=== PATIENT | female | born 1965 | race Caucasian/White ===

== ENCOUNTER → 2020-01-31 10:39 | Outpatient (CLI) | payer OTHER, SELFPAY ==
[2020-01-31 12:40] LABS: Erythrocyte Sedimentation Rate 44 mm/hr (0-30)
[2020-01-31 12:46] LABS: Hematocrit 37.7 % (37-47); Hemoglobin 11.8 g/dL (12.0-15.0); Mean Corp Hgb Conc 31.3 g/dL (32-36); Mean Corpuscular Hgb 29.9 pg (27.0-32.0); Mean Corpuscular Volume 95.7 fL (81-99); Mean Platelet Vol. 11.5 fl (6.2-12.0); POSITIVE COUNT YES; Platelet Count 96 K/mm3 (150-450); RBC Distribution Width CV 14.9 % (11.6-14.6); RBC Distribution Width SD 51.8 fl (35.1-43.9); Red Blood Count 3.94 M/mm3 (4.2-5.4); White Blood Count 3.7 K/mm3 (4.4-11.0)
[2020-01-31 13:09] LABS: ALB/GLOB Ratio 0.8 RATIO (0.9-2.4); AST(SGOT) 44 U/L (15-37); Alanine Aminotransfer ALT/SGPT 33 U/L (13-56); Albumin, Serum 3.5 g/dL (3.2-5.0); Alkaline Phosphatase 93 U/L (45-117); Anion Gap 4 (5-15); BUN 16 mg/dL (7-18); BUN/Creat Ratio 15.7 RATIO (10-20); CRP < 2.90 mg/L (0.0-3.0); Calcium,Total 9.2 mg/dL (8.5-10.1); Chloride 103 mmol/L (98-107); Creatinine, Serum 1.02 mg/dL (0.55-1.02); EST Glomerular Filtration Rate 60 mL/min (>60); Est Glom Filt Rate - Afr Amer 73 mL/min (>60); Globulin 4.4 g/dL (2.2-4.2); Glucose 225 mg/dL (74-106); Potassium 4.2 mmol/L (3.5-5.1); Protein, Total 7.9 g/dL (6.4-8.2); Sodium Level 136 mmol/L (136-145)
[2020-01-31 13:14] LABS: Scan Indicated on CBC? Y/N YES- FLAGS NOTED
== END ==
LOC: MTLAB 10:48
PROVIDERS: PCP Family Medicine; Referring Provider Internal Medicine Gastroenterology; Visit Provider Internal Medicine Gastroenterology
DX: K51.90 Ulcerative colitis, unspecified, without complications (principal)
CPT/HCPCS: 36415; 80053; 85027; 85652; 86140

== ENCOUNTER → 2020-07-01 13:33 | Outpatient (CLI) | payer MEDICAID, SELFPAY ==
[2020-07-01 13:56] LABS: Absolute Neutrophil Count 3.3 X10^3/uL (2.0-7.7); Basophil# 0.02 X10^3/uL; Basophil% 0.4 % (0-1); Eosinophil# 0.14 X10^3/uL; Eosinophils% 2.5 % (0-5); Hematocrit 36.6 % (37-47); Hemoglobin 12.4 g/dL (12.0-15.0); Lymphocyte % 28.9 % (19-41); Mean Corp Hgb Conc 33.9 g/dL (32-36); Mean Corpuscular Hgb 31.2 pg (27.0-32.0); Mean Corpuscular Volume 92.2 fL (81-99); Mean Platelet Vol. 11.4 fl (6.2-12.0); Monocyte# 0.46 X10^3/uL; Monocyte% 8.3 % (0-10); NRBC Flagged by Analyzer 0 % (0-5); Neutrophil # 3.28 X10^3/uL (2.7-7.7); Neutrophil % 59.2 % (47-70); POSITIVE COUNT YES; Platelet Count 94 K/mm3 (150-450); RBC Distribution Width CV 15.6 % (11.6-14.6); RBC Distribution Width SD 51.3 fl (35.1-43.9); Red Blood Count 3.97 M/mm3 (4.2-5.4); White Blood Count 5.5 K/mm3 (4.4-11.0)
== END ==
PROVIDERS: PCP Family Medicine
DX: D69.6 Thrombocytopenia, unspecified (principal)
CPT/HCPCS: 36415; 85025

== ENCOUNTER → 2020-08-27 13:32 | Outpatient (CLI) | payer OTHER, SELFPAY ==
[2020-08-06 11:28] VITALS: BMI 55.9
[2020-08-27 14:32] LABS: Erythrocyte Sedimentation Rate 23 mm/hr (0-30)
[2020-08-27 14:53] LABS: BNP,B-Type NATRIURETIC PEPTIDE 48.4 pg/mL (0-100)
[2020-08-27 14:58] LABS: CRP 7.14 mg/L (0.0-3.0); Rheumatoid Factor < 10.0 IU/mL (<15)
[2020-08-29 01:10] LABS: Rapid Plasmin Reagin (RPR) NONREACTIVE (NONREACTIVE)
[2020-08-30 10:52] LABS: ANTINUCLEAR ANTIBODIES DIRECT Negative (Negative)
== END ==
PROVIDERS: PCP Family Medicine; Referring Provider Registered Nurse; Visit Provider Registered Nurse
DX: M25.473 Effusion, unspecified ankle (principal)
CPT/HCPCS: 36415; 83880; 85652; 86038; 86140; 86431; 86592

== ENCOUNTER → 2021-02-07 07:26 | Outpatient (CLI) | payer OTHER, SELFPAY ==
[2021-01-27 14:17] VITALS: BMI 51.4
--- NOTE | 2021-02-07 07:36 | BI_ITS ---
MAMMOGRAPHY - BILATERAL SCREENING 3-D TOMOSYNTHESIS REASON FOR EXAM: Female, 55 years old. Routine screening PERTINENT HISTORY: No significant family history. TECHNIQUE: 2-D mammograms and 3-D Tomosynthesis of the breast (s) were performed. CAD was performed. COMPARISON: 02/07/2020 FINDINGS: The breast composition is almost entirely fat. Scattered benign calcifications are seen. No dense spiculated masses or suspicious microcalcifications are identified. No architectural distortion is identified. There is no skin thickening or retraction. There has been no significant change since the prior study. BI/SCRN MAMM (CAD)W/JOVANNY BILAT IMPRESSION: No mammographic signs of malignancy. Routine yearly mammograms recommended. ASSESSMENT CATEGORY: BIRADS Category 1: Negative. A letter regarding these results will be sent to the patient by the facility within 30 days. FOLLOW UP RECOMMENDATION: Yearly follow up mammogram recommended. (A) Approximately 10% of breast cancers are not detected by mammography. A normal mammogram should not delay biopsy of a clinically suspicious abnormality. Electronically Signed: Min Renner MD at 8:59 EDT , Service support ,
== END ==
PROVIDERS: PCP Family Medicine; Referring Provider Internal Medicine Hematology & Oncology; Visit Provider Internal Medicine Hematology & Oncology
DX: Z12.31 Encounter for screening mammogram for malignant neoplasm of breast (principal)
CPT/HCPCS: 77063; 77067

== ENCOUNTER → 2021-02-25 14:03 | Outpatient (CLI) | payer OTHER, SELFPAY ==
[2021-02-08 10:08] VITALS: BMI 49.0
--- NOTE | 2021-02-25 14:04 | CT_ITS ---
STUDY: LOW DOSE CT LUNG CANCER SCREENING REASON FOR EXAM: Female, 55 years old. Lung cancer screening -- 50 pack yr history; former smoker; asymptomatic RADIATION DOSAGE (If Supplied By Facility): CTDIvol = ( 4.02 ) mGy, DLP = ( 132.90 ) mGycm TECHNIQUE: No contrast was administered. Low dose technique was utilized (average mAS-38 and kVp 120). 1.25 mm axial source images with a slice interval of 1.25-mm were reconstructed in lung windows. 2.5 mm axial source images with a slice interval of 2.5-mm were reconstructed in lung windows. 5.0 mm axial source images with a slice interval of 5.0-mm were reconstructed in soft tissue windows. Nodule measured using lung windows on PACS and/or independent workstation with automated measurement of minimum and maximum diameter. Nodule measurement reported as average diameter rounded to the nearest whole number. Growth is defined as an increase ins size of greater than 1.5 mm. COMPARISON: None. NODULES: No suspicious nodules are seen. Emphysema: Mild degree of emphysematous changes. Focal irregular scarring and mild bronchiectasis along the posterior medial aspect of the left lower lobe. Mild increased markings in the right middle lobe and lingular segment of the left upper lobe. Endobronchial lesion: None Aorta: Unremarkable Coronary arteries: Coronary artery calcification. Mediastinal nodes: Small mediastinal lymph nodes. Other chest and abdominal findings: CT/Low Dose CT Lung Screening IMPRESSION: Lung-RADS category 2 - Continue annual screening with LDCT in 12 months. IMPORTANT NOTES FOR USE: ACR Lung-RADS Version 1.1 Assessment Categories Release Date: 2018 Category: Coded 0-4 bases on nodule(s) with highest degree of suspicion. Negative screen is defined as categories 1 and 2; a positive screen is defined as categories 3 and 4. Category 3 and 4A nodules that are unchanged on interval CT should be coded as category 2, and individuals returned to screening in 12 months. Category 4X: Category 3 or 4 nodules with additional imaging findings that increase the suspicion of lung cancer, such as spiculation, GGN that doubles in size in 1 year, enlarged lymph notes, etc. Category Modifiers: S (significant finding unrelated to lung cancer) Electronically Signed: Giovanni Amaral MD at 14:47 EDT , Service support ,
== END ==
PROVIDERS: PCP Family Medicine; Referring Provider Nurse Practitioner Family; Visit Provider Nurse Practitioner Family
DX: Z12.2 Encounter for screening for malignant neoplasm of respiratory organs (principal); Z87.891 Personal history of nicotine dependence
CPT/HCPCS: 71271

== ENCOUNTER → 2021-03-03 21:13 | Outpatient (CLI) | payer OTHER, SELFPAY | LOC: LABSPEC 03-04 10:03 → EMPH 03-04 10:03 | PROVIDERS: PCP Family Medicine; Referring Provider Internal Medicine Infectious Disease; Visit Provider Internal Medicine Infectious Disease | DX: R09.81 Nasal congestion (principal) | CPT/HCPCS: 87635; U0005; U0003 ==

== ENCOUNTER 2021-03-05 14:21 | Outpatient (CLI) | payer OTHER, SELFPAY ==
[2021-03-05 14:45] VITALS: BP 132/72; PULSE 79; RESP 18; TEMP 37.1; O2SAT 95; BMI 49.8
[2021-03-05] MEDS: 0.9% Saline Lock 10 ML Syringe IV (15:01)
[2021-03-05 15:27] VITALS: BP 120/66; PULSE 77; RESP 18; TEMP 37; O2SAT 94
[2021-03-05] MEDS: Acetaminophen 325 MG Tablet 650 MG PO (16:01)
[2021-03-05 16:28] VITALS: BP 120/66; PULSE 77; RESP 18; TEMP 36.8; O2SAT 96
== END 2021-03-05 16:31 | disposition home or self-care (01) ==
LOC: ICUOUT 14:22 → MS2 14:23
PROVIDERS: PCP Family Medicine; Referring Provider Nurse Practitioner Acute Care; Visit Provider Nurse Practitioner Acute Care
DX: Z23 Encounter for immunization (principal); U07.1 COVID-19
CPT/HCPCS: J7050; M0243; A4216; Q0244

== ENCOUNTER → 2021-04-14 06:50 | Outpatient (CLI) | payer OTHER, SELFPAY ==
[2021-04-14 08:55] LABS: Anion Gap 9 (5-15); BUN 23 mg/dL (7-18); BUN/Creat Ratio 20.2 RATIO (10-20); Calcium,Total 9.2 mg/dL (8.5-10.1); Chloride 103 mmol/L (98-107); Cholesterol 118 mg/dL (200); Creatinine, Serum 1.14 mg/dL (0.55-1.02); EST Glomerular Filtration Rate 53 mL/min (>60); Est Glom Filt Rate - Afr Amer 64 mL/min (>60); Glucose 160 mg/dL (74-106); High Density Lipoprotein 32 mg/dL; Potassium 4.2 mmol/L (3.5-5.1); Sodium Level 136 mmol/L (136-145); Triglycerides 192 mg/dL; Very Low Density Lipoprotein 38 mg/dL (5-40)
[2021-04-14 09:01] LABS: Vitamin B12 262 pg/mL (211-911)
[2021-04-14 09:28] LABS: Microalbumin:Creatinine Ratio 1090.9 mg/g CRE (<30 mg/g CRE)
== END ==
PROVIDERS: PCP Family Medicine
DX: E11.29 Type 2 diabetes mellitus with other diabetic kidney complication (principal); E11.65 Type 2 diabetes mellitus with hyperglycemia; R80.9 Proteinuria, unspecified; Z79.4 Long term (current) use of insulin
CPT/HCPCS: 36415; 80048; 80061; 82043; 82570; 82607

== ENCOUNTER → 2021-05-22 18:06 | Outpatient (CLI) | payer OTHER, SELFPAY | PROVIDERS: PCP Family Medicine; Referring Provider Family Medicine; Visit Provider Family Medicine | DX: Z20.822 Contact with and (suspected) exposure to COVID-19 (principal) | CPT/HCPCS: 87635; U0005; U0003 ==

== ENCOUNTER 2021-06-05 17:16 | Emergency (ER) | payer OTHER, SELFPAY ==
[2021-06-05 17:18] VITALS: BP 145/92; PULSE 103; RESP 18; TEMP 36.9; O2SAT 95; BMI 47.9
--- NOTE | 2021-06-05 17:50 | EDS_ITS ---
HPI History of Present Illness Chief Complaint: Hyperglycemia Narrative Narrative: 56-year-old female presenting with hyperglycemia. She states her blood sugar has been in the 500s for most of the day. She states is never really been in the 500s. Patient does state that she might have eaten more sweets than usual today because of Thanksgiving. She is on Jardiance as well as Metformin 1000 mg twice daily. Patient states that she takes regular insulin 3 times daily. She states I felt out of sorts today. She felt that her blood sugar might be manageable but she was urged by family members to come to the emergency room have evaluated. She states that she took 29 units of regular insulin prior to coming. She noted that her blood pressure had decreased to just over [address] She denies chest pain, shortness of breath, fever, chills, nausea, vomiting. She does admit to increased urination without dysuria. She states that she has had episodes where she was incontinent. She denies any medication changes except for the addition of Jardiance. This was a couple of weeks ago. She previously saw a hiv prevention specialist but has followed up with Dr. Peña's office. [facility] Medical History Anxiety COPD (chronic obstructive pulmonary disease) Depression Elevated transaminase level Encounter for screening for malignant neoplasm of lung in former smoker who quit in past 15 years with 30 pack year history or greater Essential hypertension Fatigue GERD (gastroesophageal reflux disease) Hemorrhoids History of tobacco use Hyperglycemia Hyperlipidemia Hyponatremia Low back pain Migraines Obesity DONNA (obstructive sleep apnea) Osteoarthritis Proteinuria Rectal bleed Right leg weakness Thrombocytopenia Trochanteric bursitis of left hip Type 2 diabetes mellitus with polyneuropathy Uncontrolled type 2 diabetes mellitus Home Medications albuterol sulfate 2 puff INHALATION Q6H PRN PRN 07/29/20 [History Last Taken Unknown] aspirin 81 mg PO DAILY@0800 07/29/20 [History Last Taken 03/05/21] atorvastatin 20 mg PO QHS 07/29/20 [History Last Taken 03/04/21] cyclobenzaprine 10 mg PO Q8H PRN 07/29/20 [History Last Taken Unknown] diclofenac sodium 2 g TOPICAL BID PRN 07/29/20 [History Last Taken Unknown] furosemide 20 mg PO DAILY 07/29/20 [History Last Taken 03/05/21] insulin regular hum U-500 conc 120 unit SQ BREAKFAST 07/29/20 [History Last Taken 03/05/21] labetalol 100 mg PO BID 07/29/20 [History Last Taken 03/05/21] lisinopril 40 mg PO DAILY 07/29/20 [History Last Taken 03/05/21] metformin 1,000 mg PO BIDCM 07/29/20 [History Last Taken 03/05/21] nystatin 1 applic TOPICAL TID PRN 07/29/20 [History Last Taken Unknown] venlafaxine 150 mg PO DAILY 07/29/20 [History Last Taken 03/05/21] insulin regular hum U-500 conc 15 unit SUBCUT LUNCH 06/05/21 [History Last Taken Unknown] insulin regular hum U-500 conc 90 unit SUBCUT QHS 06/05/21 [History Last Taken Unknown] Allergy/AdvReac Type Severity Reaction Status Date / Time cat dander Allergy Severe Swelling Verified 06/05/21 17:20 Family History Sister TBI (traumatic brain injury) Brother Substance abuse Depression Father Hypertension Prostate cancer Heart disease Mother Depression Heart disease Diabetes Surgical History H/O cardiac catheterization H/O colonoscopy History of cholecystectomy History of endometrial ablation History of tonsillectomy and adenoidectomy Status post carpal tunnel release Social History Smoking Status: Former smoker ROS ROS ED Constitutional Constitutional ED: Denies chills or fever(s) Eyes Eyes: Denies blurry vision or diplopia ENT ENT ED: Denies rhinorrhea or sore throat Cardiovascular Cardiovascular: Denies chest pain or palpitations Respiratory/Chest Respiratory/Chest: Denies cough, dyspnea or sputum Gastrointestinal Gastrointestinal: Denies abdominal pain, diarrhea, nausea or vomiting Genitourinary Genitourinary ED: Reports urinary frequency; Denies dysuria Musculoskeletal Musculoskeletal: Denies arthralgias or myalgias Integumentary Denies abscess or rash EXAM Physical Exam Const Vital Signs: 06/05/21 17:18 06/05/21 18:14 06/05/21 20:10 Temperature 98.5 F Temperature Source Temporal Pulse Rate 103 H Respiratory Rate 18 18 Respiratory Effort Normal Non-Labored Blood Pressure 145/92 H Blood Pressure Mean 109 Pulse Ox 95 Oxygen Delivery Method Room Air Positive well nourished General Appearance ED: NAD; Negative for pallor HEENT Reports moist mucous membranes Negative for trauma Eyes PERRL and EOMs intact bilaterally Resp normal respiratory effort and clear to auscultation bilaterally Cardio regular rate and regular rhythm Neuro oriented x3, CN's II-XII intact bilaterally and no sensory deficits noted Sensorium / Orientation: alert Motor Exam: strength 5/5 throughout Psych mental status grossly normal Skin General Skin Exam: Negative for jaundice or pallor MDM MDM MDM Narrative Medical decision making narrative: I did check blood work for the patient and her CBC is unremarkable. BMP shows a creatinine slightly increased at 1.29. Her electrolytes are normal. Urinalysis negative for infection. Patient did take 29 units of insulin before coming in her lab work glucose is 457. On recheck this was 389. This was rechecked again and is now under 300. Given that she is not in DKA and her glucose is going down I would recommend she continue her diabetic medications and follow-up with her PCP for medication advice. Patient is amenable to this. She is discharged home in stable condition. Impression: 1. Hyperglycemia Lab Data Attestation: I reviewed the patient's lab results. Labs: Laboratory Results - last 24 hr 06/05/21 06/05/21 06/05/21 12:50 12:50 18:00 WBC 4.0 L RBC 4.51 Hgb 12.9 Hct 38.9 MCV 86.3 MCH 28.6 MCHC 33.2 RDW Std Deviation 50.2 H RDW Coeff of Stu 16.0 H Plt Count 91 L MPV 10.9 Immature Gran % (Auto) 0.300 Neut % (Auto) 62.6 Lymph % (Auto) 27.3 Webb % (Auto) 9.5 Eos % (Auto) 0.0 Baso % (Auto) 0.3 Absolute Neuts (auto) 2.5 Absolute Lymphs (auto) 1.09 Nucleated RBC % 0 Differential Comment SCANNED Sodium 133 L Potassium 3.9 Chloride 100 Carbon Dioxide 24.0 Anion Gap 9 BUN 21 H Creatinine 1.29 H Estim Creat Clear Calc 44.86 Est GFR (MDRD) Af Amer 55 L Est GFR (MDRD) Non-Af 46 L BUN/Creatinine Ratio 16.3 Glucose 457 H* Calcium 9.5 Urine Color Yellow Urine Clarity Clear Urine pH 6.5 Ur Specific [place] 1.010 Urine Protein 30 H Urine Glucose (UA) 1000 H Urine Ketones Negative Urine Occult Blood 10 H Urine Nitrite Negative Urine Bilirubin Negative Urine Urobilinogen Normal Ur Leukocyte Esterase Negative Urine RBC 0 SEEN Urine WBC 0 SEEN Ur Squamous Epith Cells 0-5 SEEN Urine Bacteria 0 SEEN Urine Mucus 0 SEEN POC Glucose 06/05/21 18:11 WBC RBC Hgb Hct MCV MCH MCHC RDW Std Deviation RDW Coeff of Stu Plt Count MPV Immature Gran % (Auto) Neut % (Auto) Lymph % (Auto) Webb % (Auto) Eos % (Auto) Baso % (Auto) Absolute Neuts (auto) Absolute Lymphs (auto) Nucleated RBC % Differential Comment Sodium Potassium Chloride Carbon Dioxide Anion Gap BUN Creatinine Estim Creat Clear Calc Est GFR (MDRD) Af Amer Est GFR (MDRD) Non-Af BUN/Creatinine Ratio Glucose Calcium Urine Color Urine Clarity Urine pH Ur Specific [place] Urine Protein Urine Glucose (UA) Urine Ketones Urine Occult Blood Urine Nitrite Urine Bilirubin Urine Urobilinogen Ur Leukocyte Esterase Urine RBC Urine WBC Ur Squamous Epith Cells Urine Bacteria Urine Mucus POC Glucose 398 H Discharge Plan Triage Chief Complaint: Hyperglycemia ED Provider: Alexander Matias Dx/Rx/DC Orders Instructions: ED Diabetic Hyperglycemia Prescriptions: No Action cyclobenzaprine 10 MG tablet 10 mg PO Q8H PRN (Reason: Muscle Spasm) RF: 0 atorvastatin 20 MG tablet 20 mg PO QHS RF: 0 venlafaxine 150 MG capsule 150 mg PO DAILY RF: 0 metformin 1,000 MG tablet 1,000 mg PO BIDCM RF: 0 aspirin 81 MG tablet,chewable 81 mg PO DAILY@0800 RF: 0 furosemide 20 MG tablet 20 mg PO DAILY RF: 0 nystatin 1 APPLIC bottle 1 applic TOPICAL TID PRN (Reason: redness) RF: 0 labetalol 100 MG tablet 100 mg PO BID RF: 0 albuterol sulfate 1 PUFF inhaler 2 puff INHALATION Q6H PRN PRN (Reason: Shortness Of Breath) RF: 0 lisinopril 40 MG tablet 40 mg PO DAILY RF: 0 diclofenac sodium 1 APPLIC gel 2 g TOPICAL BID PRN (Reason: Pain) RF: 0 insulin regular hum U-500 conc 500 UNIT/ML insulin pen 120 unit SQ BREAKFAST RF: 0 insulin regular hum U-500 conc 500 unit/mL (3 mL) Insulin Pen 15 unit SUBCUT LUNCH RF: 0 insulin regular hum U-500 conc 500 unit/mL (3 mL) Insulin Pen 90 unit SUBCUT QHS RF: 0 Primary Care Provider: Rik Peña Referrals: Rik Peña MD [Primary Care Provider] - Disposition Disposition: Home, Self Care
[2021-06-05 18:00] LABS: Absolute Lymphocyte Count 1.09 X10^3/uL (0.83-4.51); Absolute Neutrophil Count 2.5 X10^3/uL (2.0-7.7); Basophil# 0.01 X10^3/uL; Basophil% 0.3 % (0-1); Hematocrit 38.9 % (37-47); Hemoglobin 12.9 g/dL (12.0-15.0); Lymphocyte # 1.09 X10^3/ul (0.83-4.51); Lymphocyte % 27.3 % (19-41); Mean Corp Hgb Conc 33.2 g/dL (32-36); Mean Corpuscular Hgb 28.6 pg (27.0-32.0); Mean Corpuscular Volume 86.3 fL (81-99); Mean Platelet Vol. 10.9 fl (6.2-12.0); Monocyte# 0.38 X10^3/uL; Monocyte% 9.5 % (0-10); NRBC Flagged by Analyzer 0 % (0-5); Neutrophil % 62.6 % (47-70); POSITIVE COUNT YES; Platelet Count 91 K/mm3 (150-450); RBC Distribution Width SD 50.2 fl (35.1-43.9); Red Blood Count 4.51 M/mm3 (4.2-5.4)
[2021-06-05 18:03] LABS: Differential Indicated SCAN CRITERIA MET
[2021-06-05 18:09] LABS: Bacteria 0 SEEN /hpf (None Seen); Mucous, Urine 0 SEEN /hpf (<or=2+); Red Blood Cells-Urine 0 SEEN /hpf (0-5); White Blood Cells 0 SEEN /hpf (0-5)
[2021-06-05 18:18] LABS: Color, Urine Yellow (Yellow); Glucose, Dipstick 1000 mg/dl (Normal); Ketone-Dipstick Negative (Negative); Leukocyte Esterase-Dipstick Negative /ul (Negative); Nitrite-Dipstick Negative (Negative); Occult Blood-Urine 10 /ul (Negative); Protein-Dipstick 30 mg/dl (Negative); Urine Bilirubin Dipstick Negative (Negative); Urine Clarity Clear (Clear); Urine Urobilinogen Normal (Normal); Urine pH 6.5 (5.0 - 8.0)
[2021-06-05 18:20] LABS: Bedside Glucose 398 mg/dL (70-110)
[2021-06-05 18:21] LABS: Anion Gap 9 (5-15); BUN 21 mg/dL (7-18); BUN/Creat Ratio 16.3 RATIO (10-20); Calcium,Total 9.5 mg/dL (8.5-10.1); Chloride 100 mmol/L (98-107); Creatinine, Serum 1.29 mg/dL (0.55-1.02); EST Glomerular Filtration Rate 46 mL/min (>60); Est Glom Filt Rate - Afr Amer 55 mL/min (>60); Estimated Creatinine Clearance 44.86 ml/min; Glucose 457 mg/dL (74-106); Potassium 3.9 mmol/L (3.5-5.1); Sodium Level 133 mmol/L (136-145)
[2021-06-05 18:36] LABS: Squamous Epithelial Cells - UA 0-5 SEEN /hpf (5-10)
[2021-06-05 18:59] LABS: Differential Comment SCANNED
[2021-06-05 20:10] VITALS: RESP 18
[2021-06-05 20:16] LABS: Bedside Glucose 285 mg/dL (70-110)
== END 2021-06-05 20:32 | disposition home or self-care (01) ==
PROVIDERS: Emergency Provider Student in an Organized Health Care Education/Training Program; PCP Family Medicine
DX: E11.65 Type 2 diabetes mellitus with hyperglycemia (principal); E11.42 Type 2 diabetes mellitus with diabetic polyneuropathy; I10 Essential (primary) hypertension; J44.9 Chronic obstructive pulmonary disease, unspecified; E78.5 Hyperlipidemia, unspecified; M19.90 Unspecified osteoarthritis, unspecified site; E66.9 Obesity, unspecified; Z68.42 Body mass index [BMI] 45.0-49.9, adult; Z79.4 Long term (current) use of insulin; Z79.84 Long term (current) use of oral hypoglycemic drugs; Z79.82 Long term (current) use of aspirin; Z79.899 Other long term (current) drug therapy; Z87.891 Personal history of nicotine dependence
CPT/HCPCS: 80048; 81001; 82962; 85025; 99283

== ENCOUNTER → 2021-11-07 | Outpatient (CLI) | payer OTHER, SELFPAY ==
[2021-11-07 07:33] LABS: AST(SGOT) 33 U/L (15-37); Alanine Aminotransfer ALT/SGPT 53 U/L (13-56); Albumin, Serum 3.5 g/dL (3.2-5.0); Alkaline Phosphatase 131 U/L (45-117); Anion Gap 4 (5-15); BUN 18 mg/dL (7-18); BUN/Creat Ratio 15.8 RATIO (10-20); Bilirubin, Direct 0.23 mg/dL (0.00-0.30); Calcium,Total 9.7 mg/dL (8.5-10.1); Chloride 102 mmol/L (98-107); Cholesterol 148 mg/dL (200); Creatinine, Serum 1.14 mg/dL (0.55-1.02); EST Glomerular Filtration Rate 53 mL/min (>60); Est Glom Filt Rate - Afr Amer 64 mL/min (>60); Globulin 4.7 g/dL (2.2-4.2); Glucose 131 mg/dL (74-106); High Density Lipoprotein 39 mg/dL; Potassium 3.9 mmol/L (3.5-5.1); Protein, Total 8.2 g/dL (6.4-8.2); Sodium Level 136 mmol/L (136-145); Triglycerides 299 mg/dL; Very Low Density Lipoprotein 60 mg/dL (5-40)
[2021-11-07 10:59] LABS: Microalbumin:Creatinine Ratio 515.5 mg/g CRE (<30 mg/g CRE)
== END | disposition home or self-care (01) ==
LOC: LAB 06:54
PROVIDERS: PCP Family Medicine; Referring Provider Family Medicine; Visit Provider Family Medicine
DX: E11.9 Type 2 diabetes mellitus without complications (principal)
CPT/HCPCS: 36415; 80048; 80061; 80076; 82043; 82570

== ENCOUNTER → 2022-02-09 | Outpatient (CLI) | payer OTHER, SELFPAY ==
--- NOTE | 2022-02-09 07:04 | BI_ITS ---
MAMMOGRAPHY - BILATERAL SCREENING 3-D TOMOSYNTHESIS REASON FOR EXAM: Female, 56 years old. Annual screening mammogram. PERTINENT HISTORY: No significant family history. TECHNIQUE: 2-D mammograms and 3-D Tomosynthesis of the breast (s) were performed. CAD was performed. COMPARISON: 02/07/2021, 02/07/2020, 04/20/2019. FINDINGS: The breast composition is composed of scattered fibroglandular density. Stable benign calcification in the right breast. Stable lymph nodes. No dense spiculated masses or suspicious microcalcifications are identified. No architectural distortion is identified. There is no skin thickening or retraction. BI/SCRN MAMM (CAD)W/JOVANNY BILAT IMPRESSION: No interval change and no mammographic signs of malignancy. Routine yearly mammograms recommended. ASSESSMENT CATEGORY: BIRADS Category 2: Benign. A letter regarding these results will be sent to the patient by the facility within 30 days. FOLLOW UP RECOMMENDATION: Yearly follow up mammogram recommended. (A) Approximately 10% of breast cancers are not detected by mammography. A normal mammogram should not delay biopsy of a clinically suspicious abnormality. Electronically Signed: Joe Head MD at 10:57 EDT ,
== END | disposition home or self-care (01) ==
LOC: OPBI 07:02
PROVIDERS: PCP Family Medicine; Visit Provider Internal Medicine Hematology & Oncology
DX: Z12.31 Encounter for screening mammogram for malignant neoplasm of breast (principal)
CPT/HCPCS: 77063; 77067

== ENCOUNTER 2022-03-06 23:30 | Emergency (ER) | payer OTHER, MEDICAID, SELFPAY ==
[2022-03-06 23:30] VITALS: BP 122/67; PULSE 98; RESP 16; TEMP 35.9; O2SAT 95; O2SAT 96; BMI 51.5
--- NOTE | 2022-03-06 23:36 | EKG12_ITS ---
Test Reason : CP Blood Pressure : / mmHG Vent. Rate : 094 BPM Atrial Rate : 094 BPM P-R Int : 184 ms QRS Dur : 100 ms QT Int : 354 ms P-R-T Axes : 054 -70 067 degrees QTc Int : 442 ms Normal sinus rhythm Left anterior fascicular block Septal infarct , age undetermined , cannot be excluded Abnormal ECG Confirmed by TAMAR WOODSON, ROSEMARY ([id number]), visual effects editor AMADO KENNEDY ([id number]) on 03/10/2022 7:48:19 AM Referred By: STERLING Confirmed By:ROSEMARY BOYLE MD
--- NOTE | 2022-03-07 00:13 | RAD_ITS ---
EXAM: XR CHEST, 1 VIEW CLINICAL INDICATION: chest pain TECHNIQUE: Frontal view of the chest. This report was created using [employer] report generation technology. COMPARISON: None. FINDINGS: LUNGS AND PLEURAL SPACES: Low lung volumes. No consolidation. No pleural effusion or pneumothorax. HEART: Unremarkable. Cardiac silhouette not enlarged. MEDIASTINUM: No cardiac or mediastinal enlargement. Trachea is unremarkable. BONES/JOINTS: Bones are unremarkable for age. SOFT TISSUES: Unremarkable. LYMPH NODES: Nodular fullness of the right hilar region. Adenopathy not excluded. CT would be more definitive. RAD/Chest 1 View (Portable) IMPRESSION: 1. Nodular fullness of the right hilar region. Adenopathy not excluded. CT would be more definitive. 2. No acute disease otherwise. Electronically Signed: Adán Ramos MD at 0:47 EDT ,
[2022-03-07 00:22] VITALS: O2SAT 94
[2022-03-07 00:27] LABS: Absolute Lymphocyte Count 1.02 X10^3/uL (0.83-4.51); Absolute Neutrophil Count 2.5 X10^3/uL (2.0-7.7); Basophil# 0.01 X10^3/uL; Basophil% 0.3 % (0-1); Hemoglobin 12.8 g/dL (12.0-15.0); Lymphocyte # 1.02 X10^3/ul (0.83-4.51); Mean Corpuscular Hgb 28.7 pg (27.0-32.0); Mean Corpuscular Volume 89.7 fL (81-99); Mean Platelet Vol. 11.3 fl (6.2-12.0); Monocyte# 0.38 X10^3/uL; Monocyte% 9.7 % (0-10); NRBC Flagged by Analyzer 0 % (0-5); Neutrophil % 63.5 % (47-70); POSITIVE COUNT YES; Platelet Count 85 K/mm3 (150-450); RBC Distribution Width CV 16.2 % (11.6-14.6); RBC Distribution Width SD 52.6 fl (35.1-43.9); Red Blood Count 4.46 M/mm3 (4.2-5.4); White Blood Count 3.9 K/mm3 (4.4-11.0)
[2022-03-07 00:43] LABS: Anion Gap 7 (5-15); BUN 16 mg/dL (7-18); BUN/Creat Ratio 12.7 RATIO (10-20); Calcium,Total 8.8 mg/dL (8.5-10.1); Chloride 106 mmol/L (98-107); Creatinine, Serum 1.26 mg/dL (0.55-1.02); EST Glomerular Filtration Rate 47 mL/min (>60); Est Glom Filt Rate - Afr Amer 57 mL/min (>60); Estimated Creatinine Clearance 45.93 ml/min; Glucose 321 mg/dL (74-106); Potassium 4.2 mmol/L (3.5-5.1); Sodium Level 138 mmol/L (136-145); Troponin-I HS (w/2H Reflex) 16 pg/mL (3.0-54.0)
[2022-03-07 01:06] VITALS: BP 142/74; PULSE 94; RESP 18; O2SAT 94
--- NOTE | 2022-03-07 02:07 | EDS_ITS ---
HPI History of Present Illness Chief Complaint: Chest Pain Informant: patient Onset/Context/Timing Onset: Today Quality: Positive for Aching Location: Left Chest Current Severity: Mild Maximum Severity: Mild Worsened By: Nothing Relieved By: Nothing Associated Symptoms: Positive for Nausea; Negative for Vomiting, Diaphoresis, Cough, Fever, Lightheadedness, Acid Reflux or Palpitations Narrative Narrative: 56-year-old female history of anxiety, hypertension, high cholesterol, COPD but does not have home O2. Had a prior heart catheterization 2017 which was unremarkable. 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 Mild nausea. Around 10 PM had left-sided chest discomfort with mild shortness of breath. No recent exertional chest pain. No cardiac history. Her father had an DE in his 50s. She has never had a DVT or PE. No recent travel, surgery or immobilization. No calf pain or swelling. No hemoptysis. Currently she has no pain. Prior Similar Symptoms: Yes Recent Illness/Hospitalization: No CVD Risk Factors: Positive for Hypertension, Hypercholesterolemia, Family History 1' </=55 and Smoking; Negative for Diabetes PE Risk Factors: Negative for Recent Travel/Surgery, Recent Immobilization, Prior DVT or PE, Cancer or OCP + Smoking + >/=35 TAD Risk Factors: Negative for Marfan's Syndrome [facility] Medical History Anxiety Concussion COPD (chronic obstructive pulmonary disease) Depression Elevated transaminase level Encounter for screening for malignant neoplasm of lung in former smoker who quit in past 15 years with 30 pack year history or greater Essential hypertension Fatigue GERD (gastroesophageal reflux disease) Hemorrhoids History of tobacco use Hyperglycemia Hyperlipidemia Hyponatremia Low back pain Migraines Obesity DONNA (obstructive sleep apnea) Osteoarthritis Proteinuria Rectal bleed Right leg weakness Thrombocytopenia Trochanteric bursitis of left hip Type 2 diabetes mellitus with polyneuropathy Uncontrolled type 2 diabetes mellitus Home Medications albuterol sulfate 90 mcg/actuation aerosol inhaler 2 puff inhalation Q6H PRN PRN Shortness Of Breath 07/29/20 [History Last Taken Unknown] aspirin 81 mg chewable tablet 81 mg PO DAILY@0800 07/29/20 [History Last Taken 03/05/21] atorvastatin 20 mg tablet 20 mg PO QHS 07/29/20 [History Last Taken 03/04/21] cyclobenzaprine 10 mg tablet 10 mg PO Q8H PRN Muscle Spasm 07/29/20 [History Last Taken Unknown] diclofenac sodium 1 % topical gel 2 g topical BID PRN Pain 07/29/20 [History Last Taken Unknown] labetalol 100 mg tablet 100 mg PO BID 07/29/20 [History Last Taken 03/05/21] lisinopril 40 mg tablet 40 mg PO DAILY 07/29/20 [History Last Taken 03/05/21] metformin 1,000 mg tablet 1,000 mg PO BIDCM 07/29/20 [History Last Taken 03/05/21] nystatin 100,000 unit/gram topical powder 1 applic topical TID PRN redness 07/29/20 [History Last Taken Unknown] venlafaxine 150 mg capsule,extended release 24 hr 150 mg PO DAILY 07/29/20 [History Last Taken 03/05/21] insulin regular hum U-500 conc 500 unit/mL(3 mL) subcut pen 30 unit subcut LUNCH 02/16/22 [History Last Taken Unknown] insulin regular hum U-500 conc 500 unit/mL(3 mL) subcut pen 130 unit subcut QHS 02/16/22 [History Last Taken Unknown] insulin regular hum U-500 conc 500 unit/mL(3 mL) subcut pen 160 unit subcut BREAKFAST 02/16/22 [History Last Taken Unknown] empagliflozin 25 mg tablet (Jardiance) 25 mg PO DAILY 03/06/22 [History Last Taken Unknown] Allergy/AdvReac Type Severity Reaction Status Date / Time cat dander Allergy Severe Swelling Verified 02/16/22 15:28 Family History Sister TBI (traumatic brain injury) Brother Substance abuse Depression Father Hypertension Prostate cancer Heart disease Mother Depression Heart disease Diabetes Surgical History H/O cardiac catheterization H/O colonoscopy History of cholecystectomy History of endometrial ablation History of tonsillectomy and adenoidectomy Status post carpal tunnel release Social History Smoking Status: Former smoker ROS ROS ED ROS Narrative Nausea throughout the day. Left-sided chest discomfort tonight. Review of Systems ROS Unobtainable: Denies due to encephalopathy Constitutional Constitutional ED: Denies chills or fever(s) Eyes Eyes: Denies none or blurry vision ENT ENT ED: Denies ear pain Cardiovascular Cardiovascular: Reports as per HPI and chest pain; Denies palpitations or racing heartbeat Respiratory/Chest Respiratory/Chest: Reports dyspnea; Denies cough Gastrointestinal Gastrointestinal: Denies abdominal pain, constipation or diarrhea Genitourinary Genitourinary ED: Denies dysuria or hematuria Musculoskeletal Musculoskeletal: Denies arthralgias Integumentary Denies abscess Neurologic Neurologic: Denies headache(s) Psychiatric Psychiatric: Denies anxiety Endocrine Endocrinology: Denies cold intolerance Hematologic/Lymphatic Hematologic/Lymphatic: Denies easy bleeding Allergic/Immunologic Allergic/Immunologic ED: Denies mouth swelling or tongue swelling EXAM Physical Exam Narrative Exam Narrative: 56-year-old female no acute distress. Vital signs stable afebrile. Pulse ox 95% on room air no signs hypoxia. H EENT exam unremarkable. Neck nontender no JVD. No lymphadenopathy. Lungs clear to auscultation bilaterally. Heart regular rate and rhythm rate in 90s no murmur. Chest were nontender. Abdomen soft nontender. Moving all 4 extremities. Calves are nontender without edema or cords. Equal symmetrical radial pulses. Neurologically she is awake alert with no focal motor deficits. Const Vital Signs: 03/06/22 23:30 03/06/22 23:30 03/06/22 23:53 Temperature 96.6 F L 96.6 F L Temperature Source Temporal Temporal Pulse Rate 98 98 Respiratory Rate 16 16 Respiratory Pattern Tachypnea Blood Pressure 122/67 H 122/67 H Blood Pressure Mean 85 85 Pulse Ox 96 95 Oxygen Delivery Method Room Air Room Air 03/07/22 00:22 03/07/22 01:06 03/07/22 03:13 Temperature Temperature Source Pulse Rate 94 96 Respiratory Rate 18 16 Respiratory Pattern Blood Pressure 142/74 H 135/63 H Blood Pressure Mean 96 87 Pulse Ox 94 94 94 Oxygen Delivery Method Room Air Room Air Positive well nourished, well developed and obese; Negative for cachectic, contractures or unkempt General Appearance ED: well developed and NAD; Negative for unkempt, cachectic, contractures or pallor Nutritional Appearance: obese; Negative for cachectic HEENT Reports moist mucous membranes normocephalic and atraumatic; Negative for trauma or tenderness Eyes PERRL and EOMs intact bilaterally General Eye ED: Negative for pale conjunctiva or scleral icterus Neck no lymphadenopathy, supple and no JVD Chest Wall inspection of chest normal and palpation of chest normal Chest: Negative for tenderness Resp normal respiratory effort and clear to auscultation bilaterally Effort and Inspection: Negative for respiratory distress Auscultation: Negative for rales, rhonchi or wheezes Cardio regular rate, regular rhythm, S1 normal heart sound, S2 normal heart sound and no murmurs Rate: Negative for bradycardia or tachycardic Rhythm: Negative for abnormal rhythm Peripheral Pulses: pulses 2+ throughout GI normal to inspection, nondistended, normoactive bowel sounds, soft to palpation, non-tender, non-distended and no masses Auscultation: Negative for hyperactive bowel sounds Palpation: Negative for splenomegaly or mass Back/Spine no CVA tenderness and no thoracic nor lumbar tenderness General Back: Negative for CVA tenderness Cervical Spine: Negative for cervical spine tenderness Extremity normal to inspection General Extremety ED: Negative for edema or pulses abnormal General Extremity: Negative for edema or pulses abnormal Neuro oriented x3 and CN's II-XII intact bilaterally Sensorium / Orientation: awake, alert, oriented to person, oriented to place and oriented to time; Negative for confused, lethargic or stuporous Motor Exam: strength 5/5 throughout Psych mental status grossly normal Appearance: Negative for unkempt Attitude: No agitated Mood & Affect: Negative for depressed, anxious or tearful Skin no rashes or lesions noted and no wounds General Skin Exam: Negative for jaundice or pallor Rashes: No rashes noted Trauma: Negative for abrasion or laceration Heart Score History: Slightly/Non-Suspicious ECG: Normal Age: >45 - <65 years Risk Factors: 1 or 2 Risk Factors Troponin: </= Normal Limit Score: 2 MDM MDM MDM Narrative Medical decision making narrative: 56-year-old with atypical chest pain. She undergo cardiac work-up. Clinically this does not appear to be a PE. She has no risk factors for it or prior history. Patient doing well on repeat exam at 3:50 AM. We discussed all of her test results. She is diabetic she realizes her sugar is up at 321. She did not take her evening dose of medication. She is on both metformin, Jardiance and subcu insulin. We discussed testing options. She had a negative nuclear stress test before and a negative cardiac catheterization 4 years ago. She does not want to be admitted. She will follow-up with her primary care physician Dr. Rik vaca for further evaluation and suggested cardiac testing. She has not had any recent exertional chest pain. She knows if she feels worse to return. Lab Data Attestation: I reviewed the patient's lab results. Lab results narrative: CBC shows white count 3.9. H&H 12.8 and 40. Platelets are low at 85,000. Prior platelets were 80,000. Electrolytes show a gap of 7 BUN and creatinine is 16 and 1.26. Glucose elevated 321 she is diabetic. Troponin is normal at 16. 2-hour troponin was 18. Labs: Laboratory Results - last 24 hr 03/07/22 03/07/22 03/07/22 00:05 00:05 02:10 WBC 3.9 L RBC 4.46 Hgb 12.8 Hct 40.0 MCV 89.7 MCH 28.7 MCHC 32.0 RDW Std Deviation 52.6 H RDW Coeff of Stu 16.2 H Plt Count 85 L MPV 11.3 Immature Gran % (Auto) 0.500 Neut % (Auto) 63.5 Lymph % (Auto) 26.0 [place] % (Auto) 9.7 Eos % (Auto) 0.0 Baso % (Auto) 0.3 Absolute Neuts (auto) 2.5 Absolute Lymphs (auto) 1.02 Nucleated RBC % 0 Sodium 138 Potassium 4.2 Chloride 106 Carbon Dioxide 25.0 Anion Gap 7 BUN 16 Creatinine 1.26 H Estim Creat Clear Calc 45.93 Est GFR (MDRD) Af Amer 57 L Est GFR (MDRD) Non-Af 47 L BUN/Creatinine Ratio 12.7 Glucose 321 H Calcium 8.8 Troponin I High Sens 16 18 Radiography Chest X-Ray - ED: 1 View, Read by ED Physician, Read by Radiologist, Heart, Lungs, Mediastinum, Bony Structures, No Acute Disease and Chronic Changes Diagnostic Testing: Clinical Impression(s) from Imaging Studies Chest X-Ray 03/07/22 00:13 IMPRESSION: 1. Nodular fullness of the right hilar region. Adenopathy not excluded. CT would be more definitive. 2. No acute disease otherwise. Electronically Signed: Adán Ramos MD at 0:47 EDT , Chest x-ray portable, single view, interpreted by myself and radiologist shows possible nodular fullness in the right hilar region. Otherwise no acute abnormality. Normal cardiac silhouette. No infiltrates. Last platelet count in our system was 80. She had a CAT scan of her chest done a year ago which was basically unremarkable. Rhythm Strip Rhythm Strip: Sinus Rhythm Rate: 94 Ectopy: None EKG Initial EKG: Attestation: I personally reviewed and interpreted this EKG as follows: Interpretation: Sinus Rhythm and No Acute Injury Pattern Comments: Normal sinus rhythm rate of 94. Left anterior fascicular block. No acute signs of DE or ischemia. Prior EKG tracings: not available for review Discharge Plan Triage Chief Complaint: Chest Pain ED Provider: Antwon Zavala Dx/Rx/DC Orders Clinical Impression: Chest pain, Acute hyperglycemia, History of diabetes mellitus Prescriptions: No Action cyclobenzaprine 10 MG tablet 10 mg PO Q8H PRN (Reason: Muscle Spasm) atorvastatin 20 MG tablet 20 mg PO QHS venlafaxine 150 MG capsule 150 mg PO DAILY metformin 1,000 MG tablet 1,000 mg PO BIDCM aspirin 81 MG tablet,chewable 81 mg PO DAILY@0800 nystatin 1 APPLIC bottle 1 applic TOPICAL TID PRN (Reason: redness) labetalol 100 MG tablet 100 mg PO BID albuterol sulfate 1 PUFF inhaler 2 puff INHALATION Q6H PRN PRN (Reason: Shortness Of Breath) lisinopril 40 MG tablet 40 mg PO DAILY diclofenac sodium 1 APPLIC gel 2 g TOPICAL BID PRN (Reason: Pain) insulin regular hum U-500 conc 500 unit/mL (3 mL) insulin pen 160 unit subcut BREAKFAST Protocol: 6. Sliding Scale Insulin Custom Condition: mg/dl range Dose/Route: Number of Units Protocol Text: Custom Sliding Scale Rx Instructions: 160 units before breakfast, 30 units before lunch, and 130 units before dinner insulin regular hum U-500 conc 500 unit/mL (3 mL) insulin pen 30 unit SUBCUT LUNCH Rx Instructions: 160 units before breakfast, 30 units before lunch, and 130 units before dinner insulin regular hum U-500 conc 500 unit/mL (3 mL) insulin pen 130 unit SUBCUT QHS Rx Instructions: 160 units before breakfast, 30 units before lunch, and 130 units before dinner Jardiance 25 mg tablet 25 mg PO DAILY Primary Care Provider: Rik Peña Referrals: Rik Peña MD [Primary Care Provider] - As soon as possible Activity Restrictions/Additional Instructions: Your labs are good Except for your blood sugar being elevated 321. Make sure you are taking your diabetic medications and watch your blood sugar closely. Follow-up with Dr. Rik Peña this coming week. You when he can discuss further cardiac testing such as some sort of stress test. Return if feeling worse or develop chest pain. Make sure you are taking your daily aspirin. Disposition Disposition: Home, Self Care
[2022-03-07 02:23] LABS: Reflex Troponin-HS? (from REC) Y
--- NOTE | 2022-03-07 02:24 | ED.RN ---
NO OLD EKGS ON FILE
[2022-03-07 02:50] LABS: Troponin-I HS 18 pg/mL (3.0-54.0)
[2022-03-07 03:13] VITALS: BP 135/63; PULSE 96; RESP 16; O2SAT 94
[2022-03-07 04:10] VITALS: BP 130/68; PULSE 94; RESP 18; O2SAT 94
== END 2022-03-07 04:32 | disposition home or self-care (01) ==
PROVIDERS: Emergency Provider Emergency Medicine; PCP Family Medicine; Visit Provider Emergency Medicine
DX: R07.9 Chest pain, unspecified (principal); E11.65 Type 2 diabetes mellitus with hyperglycemia; E11.42 Type 2 diabetes mellitus with diabetic polyneuropathy; Z79.4 Long term (current) use of insulin; E78.00 Pure hypercholesterolemia, unspecified; F41.9 Anxiety disorder, unspecified; I10 Essential (primary) hypertension; G47.33 Obstructive sleep apnea (adult) (pediatric); E66.9 Obesity, unspecified; Z79.84 Long term (current) use of oral hypoglycemic drugs; Z79.899 Other long term (current) drug therapy; Z87.891 Personal history of nicotine dependence
CPT/HCPCS: 71045; 80048; 84484; 85025; 93005; 99283; A4216

== ENCOUNTER → 2022-03-31 | Outpatient (CLI) | payer OTHER, SELFPAY ==
--- NOTE | 2022-03-31 12:07 | STRESSREP ---
Stress Test Report Date: 03-31-2022 Procedure: Pharmacologic stress nuclear imaging study Indications: Chest pain; dyspnea on exertion; COPD/DONNA; thrombocytopenia Consent: Per the patient Procedure: The patient underwent pharmacologic (Regadenoson 0.4mg ) evaluation with a peak heart rate of 96 beats per minute (57%predicted maximal heart rate) and a peak blood pressure of 128/80mmHg. The baseline ECG demonstrated normal sinus rhythm; right IVCD. The peak pharmacologic ECG demonstrated continued right IVCD with no obvious changes. There were no cardiac dysrhythmias pretest, during pharmacologic infusion, or recovery. There was no complaint of chest discomfort during pharmacologic infusion or recovery. The examination was discontinued secondary to completion of protocol. Impression: 1. Pharmacologic (Regadenoson) evaluation 2. Peak pharmacologic ECG with continued sinus rhythm with right IVCD with no obvious changes. 3. There were no cardiac dysrhythmias pretest, during pharmacologic infusion, or recovery. 4. Nuclear images pending Myocardial perfusion imaging study: Technique: The patient was injected with 14.8 millicuries of technetium 99m Cardiolite and subsequently rest SPECT Cardiolite nuclear imaging was obtained in the horizontal long, vertical long, and short axis views. The patient underwent pharmacologic (Regadenoson) evaluation with a peak heart rate of 96 beats per minute (57% percent predicted maximal heart rate) and a peak blood pressure of 128/80 mmHg. The patient was injected with 44.7 millicuries of technetium 99m Cardiolite and subsequently stress SPECT Cardiolite nuclear imaging was obtained in the horizontal long, vertical long, and short axis views. A gated Cardiolite study at peak stress was obtained. Interpretation: Rest and stress SPECT Cardiolite nuclear imaging status post realignment, normalization, and attenuation correction demonstrate relative uniform tracer uptake and myocardial perfusion appearing within normal limits. There is end systolic thickening and brightening. The gated Cardiolite study demonstrates myocardial thickening and inward wall motion. The reported LVEF is 70%. Impression: 1. Rest and stress SPECT Cardiolite nuclear imaging demonstrate relative uniform tracer uptake and myocardial perfusion appearing within normal limits. 2. The gated Cardiolite study reports an LVEF of 70%. This note was generated with [employer] software. It may contain incorrect words, spelling, and punctuation that were not noted in checking the note before signing.
== END | disposition home or self-care (01) ==
LOC: CVS 06:01
PROVIDERS: PCP Family Medicine; Referring Provider Family Medicine; Visit Provider Family Medicine
DX: R07.9 Chest pain, unspecified (principal)
CPT/HCPCS: 78452; 93017; A9500; A4216; J2785

== ENCOUNTER → 2022-04-07 | Outpatient (CLI) | payer OTHER, MEDICAID, SELFPAY ==
--- NOTE | 2022-04-07 14:24 | CT_ITS ---
STUDY: LOW DOSE CT LUNG CANCER SCREENING REASON FOR EXAM: Female, 56 years old. Lung cancer screening -- 42 pk yr hx;former smoker;asymptomatic RADIATION DOSAGE (If Supplied By Facility): CTDIvol = ( 4.02 ) mGy, DLP = ( 139.94 ) mGycm TECHNIQUE: No contrast was administered. Low dose technique was utilized (average mAS-38 and kVp 120). 1.25 mm axial source images with a slice interval of 1.25-mm were reconstructed in lung windows. 2.5 mm axial source images with a slice interval of 2.5-mm were reconstructed in lung windows. 5.0 mm axial source images with a slice interval of 5.0-mm were reconstructed in soft tissue windows. COMPARISON: Comparison is made with prior examination of 02/25/2021. NODULES: No suspicious nodules are seen. Emphysema: Hyperinflation. Stable mild degree of emphysematous changes. Stable focal scarring and mild degree of bronchiectasis in the posterior medial aspect of the left lower lobe. Mild increased linear markings are also seen in the right middle lobe as well as in the lingular segment of the left upper lobe suggestive of scarring. Endobronchial lesion: None Aorta: Mild degree of atherosclerotic plaque formation of the descending thoracic aorta. CORONARY ARTERIES: Coronary artery calcification is seen. Heart: Unremarkable Pulmonary artery: Unremarkable Mediastinal nodes: Stable mediastinal lymphadenopathy. Other chest and abdominal findings: CT/Low Dose CT Lung Screening IMPRESSION: Lung-RADS category 2 - Continue annual screening with LDCT in 12 months. IMPORTANT NOTES FOR USE: ACR Lung-RADS Version 1.1 Assessment Categories Release Date: 2018 Category: Coded 0-4 bases on nodule(s) with highest degree of suspicion. Negative screen is defined as categories 1 and 2; a positive screen is defined as categories 3 and 4. Category 3 and 4A nodules that are unchanged on interval CT should be coded as category 2, and individuals returned to screening in 12 months. Category 4X: Category 3 or 4 nodules with additional imaging findings that increase the suspicion of lung cancer, such as spiculation, GGN that doubles in size in 1 year, enlarged lymph notes, etc. Category Modifiers: S (significant finding unrelated to lung cancer) Electronically Signed: Giovanni Amaral MD at 15:09 EDT ,
== END | disposition home or self-care (01) ==
LOC: CT 14:23
PROVIDERS: PCP Family Medicine; Referring Provider Nurse Practitioner Family; Visit Provider Nurse Practitioner Family
DX: Z87.891 Personal history of nicotine dependence (principal); Z12.2 Encounter for screening for malignant neoplasm of respiratory organs
CPT/HCPCS: 71271

== ENCOUNTER → 2022-05-20 | Outpatient (CLI) | payer OTHER, MEDICAID, SELFPAY ==
--- NOTE | 2022-05-20 10:51 | RAD_ITS ---
STUDY: X-RAY - RIGHT HAND REASON FOR EXAM: Female, 56 years old. Pain. TECHNIQUE: 3 view(s) of the hand. COMPARISON: None. FINDINGS: Mild arthrosis of the radiocarpal articulation. Negative ulnar variance. Mild arthrosis of the radiocarpal row. Marked arthrosis of the first CMC joint with multiple small intra-articular osteochondral bodies. Mild arthrosis of the MCP and IP joints. The soft tissue structures are unremarkable. RAD/Hand Min 3 Views IMPRESSION: Negative ulnar variance with osteoarthritic changes, most marked at the first CMC joint. No acute abnormality, evidence of erosive changes or chondrocalcinosis. Electronically Signed: Joe Head, at 15:29 EST ,
--- NOTE | 2022-05-20 11:00 | RAD_ITS ---
STUDY: X-RAY - RIGHT WRIST REASON FOR EXAM: Female, 56 years old. Pain. TECHNIQUE: 3 view(s) of the hand. COMPARISON: None. FINDINGS: Mild arthrosis of the radiocarpal articulation. Negative ulnar variance. Mild arthrosis of the radiocarpal row. Marked arthrosis of the first CMC joint with multiple small intra-articular osteochondral bodies. Mild arthrosis of the MCP and IP joints. The soft tissue structures are unremarkable. RAD/Wrist min 3 Views IMPRESSION: Negative ulnar variance with osteoarthritic changes, most marked at the first CMC joint. No acute abnormality, chondrocalcinosis or erosive changes. Electronically Signed: Joe Head, at 15:30 EST ,
== END | disposition home or self-care (01) ==
PROVIDERS: PCP Family Medicine; Visit Provider Family Medicine
DX: M79.641 Pain in right hand (principal); M25.531 Pain in right wrist
CPT/HCPCS: 73110; 73130

== ENCOUNTER → 2022-05-22 | Outpatient (CLI) | payer OTHER, MEDICAID, SELFPAY ==
[2022-05-22 08:44] LABS: Anion Gap 6 (5-15); BUN 21 mg/dL (7-18); BUN/Creat Ratio 21.4 RATIO (10-20); Calcium,Total 9.2 mg/dL (8.5-10.1); Chloride 106 mmol/L (98-107); Cholesterol 124 mg/dL (200); Creatinine, Serum 0.98 mg/dL (0.55-1.02); EST Glomerular Filtration Rate 63 mL/min (>60); Est Glom Filt Rate - Afr Amer 76 mL/min (>60); Glucose 137 mg/dL (74-106); High Density Lipoprotein 40 mg/dL; Potassium 4.4 mmol/L (3.5-5.1); Sodium Level 138 mmol/L (136-145); Triglycerides 128 mg/dL; Very Low Density Lipoprotein 26 mg/dL (5-40)
== END | disposition home or self-care (01) ==
LOC: LAB 07:26
PROVIDERS: PCP Family Medicine; Referring Provider Family Medicine; Visit Provider Family Medicine
DX: E11.9 Type 2 diabetes mellitus without complications (principal)
CPT/HCPCS: 36415; 80048; 80061

== ENCOUNTER 2022-07-23 08:14 | Emergency (ER) | payer OTHER, MEDICAID, SELFPAY ==
[2022-07-23 08:14] VITALS: BP 188/97; PULSE 88; RESP 18; TEMP 35.6; O2SAT 93; BMI 51.6
[2022-07-23 08:16] VITALS: BP 154/94; PULSE 79; RESP 22; TEMP 36.2; O2SAT 94
[2022-07-23 08:17] VITALS: O2SAT 93
[2022-07-23 08:21] VITALS: O2SAT 95
[2022-07-23 08:38] VITALS: O2SAT 93
--- NOTE | 2022-07-23 08:46 | EDS_ITS ---
HPI History of Present Illness Chief Complaint: Shortness of Breath Informant: patient and spouse/S.O. Narrative Narrative: History of COPD no home oxygen and remote tobacco 3-day history sore throat productive cough. No fevers or myalgias. Initially saw her PCP 3 days ago normal exam. She follow[facility] with [facility] the following day COVID PCR was negative. Increasing sputum therefore went back yesterday had a chest x-ray reported concerns for pneumonia and started on Levaquin status post 1 dose. She states she is wheezing she does have inhaler. Reports overnight she had a pulse ox monitored by her significant other went down to 87%. She states in the past double pneumonia requiring home oxygen at one-point. Denies recent travel or surgeries. No history of PE or DVT. Prior similar symptoms: [facility] Medical History Allergies Anxiety Concussion Contact with and (suspected) exposure to other viral communicable diseases COPD (chronic obstructive pulmonary disease) Depression Elevated transaminase level Encounter for screening for malignant neoplasm of lung in former smoker who quit in past 15 years with 30 pack year history or greater Essential hypertension Fatigue GERD (gastroesophageal reflux disease) Hemorrhoids History of tobacco use Hyperglycemia Hyperlipidemia Hyponatremia Low back pain Lung infection MDD (major depressive disorder) Migraines Obesity DONNA (obstructive sleep apnea) Osteoarthritis Proteinuria Rectal bleed Right leg weakness Thrombocytopenia Trochanteric bursitis of left hip Type 2 diabetes mellitus with polyneuropathy Uncontrolled type 2 diabetes mellitus URI (upper respiratory infection) Home Medications albuterol sulfate 90 mcg/actuation aerosol inhaler 2 puff inhalation Q6H PRN PRN Shortness Of Breath 07/29/20 [History Last Taken Unknown] aspirin 81 mg chewable tablet 81 mg PO DAILY@0800 07/29/20 [History Last Taken 03/05/21] atorvastatin 20 mg tablet 20 mg PO QHS 07/29/20 [History Last Taken 03/04/21] diclofenac sodium 1 % topical gel 2 g topical BID PRN Pain 07/29/20 [History Last Taken Unknown] labetalol 100 mg tablet 100 mg PO BID 07/29/20 [History Last Taken 03/05/21] lisinopril 40 mg tablet 40 mg PO DAILY 07/29/20 [History Last Taken 03/05/21] metformin 1,000 mg tablet 1,000 mg PO BIDCM 07/29/20 [History Last Taken 03/05/21] insulin regular hum U-500 conc 500 unit/mL(3 mL) subcut pen 30 unit subcut LUNCH 02/16/22 [History Last Taken Unknown] insulin regular hum U-500 conc 500 unit/mL(3 mL) subcut pen 130 unit subcut QHS 02/16/22 [History Last Taken Unknown] insulin regular hum U-500 conc 500 unit/mL(3 mL) subcut pen 160 unit subcut BREAKFAST 02/16/22 [History Last Taken Unknown] empagliflozin 25 mg tablet (Jardiance) 25 mg PO DAILY 03/06/22 [History Last Taken Unknown] bupropion HCl 150 mg 24 hr tablet, extended release (Wellbutrin XL) 150 mg PO QAM #30 tabs 07/08/22 [Rx Last Taken Unknown] venlafaxine 75 mg capsule,extended release 24 hr See Rx Instructions PO DAILY #42 caps 07/08/22 [Rx Last Taken Unknown] levofloxacin 500 mg tablet 500 mg PO DAILY #10 tabs 07/22/22 [Rx Last Taken Unknown] prednisone 20 mg tablet 40 mg PO DAILY #8 tabs 07/23/22 [Rx Last Taken Unknown] Allergy/AdvReac Type Severity Reaction Status Date / Time cat dander Allergy Severe Swelling Verified 07/23/22 08:20 Family History Sister TBI (traumatic brain injury) Colon cancer Brother Substance abuse Depression Seizures Father Hypertension Prostate cancer Heart disease Arthritis Myocardial infarction Kidney disease Mother Depression Heart disease Diabetes Asthma Osteoporosis Respiratory disease Surgical History H/O cardiac catheterization H/O colonoscopy History of cholecystectomy History of endometrial ablation History of tonsillectomy and adenoidectomy Status post carpal tunnel release Social History Smoking Status: Former smoker alcohol intake: never substance use type: does not use ROS ROS ED Constitutional Constitutional ED: Denies chills, fever(s) or sweats Eyes Eyes: Denies change in vision ENT ENT ED: Denies dysphagia or sore throat Cardiovascular Cardiovascular: Denies chest pain, leg edema, palpitations or racing heartbeat Respiratory/Chest Respiratory/Chest: Reports cough, dyspnea and sputum; Denies dyspnea on exertion Gastrointestinal Gastrointestinal: Denies abdominal pain, diarrhea, nausea or vomiting Genitourinary Genitourinary ED: Denies dysuria, hematuria or urinary frequency Musculoskeletal Musculoskeletal: Denies back pain, extremity pain or neck pain Integumentary Denies rash or wounds Neurologic Neurologic: Denies headache(s), paresthesias or weakness EXAM Physical Exam Const Vital Signs: 07/23/22 08:14 07/23/22 08:21 07/23/22 08:16 Temperature 96.1 F L 97.1 F L Temperature Source Temporal Temporal Pulse Rate 88 79 Respiratory Rate 18 22 H Respiratory Effort Short of Breath Labored Respiratory Depth Normal Respiratory Pattern Tachypnea Blood Pressure 188/97 H 154/94 H Blood Pressure Mean 127 114 Pulse Ox 93 94 Oxygen Delivery Method Room Air Room Air Room Air 07/23/22 08:52 Temperature 96.9 F L Temperature Source Pulse Rate 83 Respiratory Rate 18 Respiratory Effort Respiratory Depth Respiratory Pattern Blood Pressure 134/78 H Blood Pressure Mean Pulse Ox 94 Oxygen Delivery Method Positive well nourished and well developed General Appearance ED: well developed and NAD HEENT Reports moist mucous membranes normocephalic and atraumatic Eyes PERRL, EOMs intact bilaterally and conjunctivae normal General Eye ED: Yes normal appearance of both eyes Neck no lymphadenopathy and supple General: Negative for tenderness Chest Wall Chest: Negative for tenderness Resp normal respiratory effort and normal air movement Effort and Inspection: symmetric chest movement; Negative for respiratory distress Cardio regular rate, regular rhythm and no murmurs Peripheral Pulses: pulses 2+ throughout GI normal to inspection, nondistended, normoactive bowel sounds and non-tender Palpation: Negative for guarding or rebound tenderness present Back/Spine no CVA tenderness and no thoracic nor lumbar tenderness Extremity normal to inspection General Extremety ED: Negative for edema or tenderness General Extremity: Negative for edema Neuro oriented x3 and no sensory deficits noted Sensorium / Orientation: awake and alert Skin no rashes or lesions noted and no wounds MDM MDM MDM Narrative Medical decision making narrative: Patient vital stable no active wheezing. Pulse ox 93 to 94% on exam. Differential is COVID infection, viral upper respiratory illness, COPD exacerbation, bronchitis, pneumonia. Low clinical suspicion for PE as she has no recent risk for this. Reviewing records from [facility] notes she had negative PCR COVID 2 days ago. Reviewed the chest x-ray from the [facility] visually had concern for basilar infiltrate right greater than left. She is in no current respiratory distress. I had nursing ambulated the patient in the ED with a pulse ox she went from 93% up to 95%. With exertional effort she is not hypoxic. Do not feel labs repeat images is necessary. She is currently on Levaquin for coverage of her pneumonia. She will finish this. I added steroids with prednisone 40 mg daily for 5 days her glucose monitor with glucose at 159. She understands her glucose will be elevated. She has inhaler at home. I discussed return precautions with the patient. She understands. All questions were answered. Discharge Plan Triage Chief Complaint: Shortness of Breath ED Provider: Gonzalo Youssef Dx/Rx/DC Orders Clinical Impression: Pneumonia, COPD exacerbation, History of diabetes mellitus Instructions: Treatment for COPD, ED Pneumonia (Adult) Prescriptions: New prednisone 20 mg tablet 40 mg PO DAILY Qty: 8 0RF Rx Instructions: Next dose 07/24/2022 No Action venlafaxine 75 mg capsule,extended release 24hr See Rx Instructions PO DAILY Qty: 42 0RF Rx Instructions: 150 mg orally daily for 14 days THEN 75 mg orally for 14 days bupropion HCl [Wellbutrin XL] 150 mg tablet extended release 24 hr 150 mg PO QAM Qty: 30 2RF atorvastatin 20 MG tablet 20 mg PO QHS metformin 1,000 MG tablet 1,000 mg PO BIDCM aspirin 81 MG tablet,chewable 81 mg PO DAILY@0800 labetalol 100 MG tablet 100 mg PO BID albuterol sulfate 1 PUFF inhaler 2 puff INHALATION Q6H PRN PRN (Reason: Shortness Of Breath) lisinopril 40 MG tablet 40 mg PO DAILY diclofenac sodium 1 APPLIC gel 2 g TOPICAL BID PRN (Reason: Pain) insulin regular hum U-500 conc 500 unit/mL (3 mL) insulin pen 160 unit subcut BREAKFAST Protocol: 6. Sliding Scale Insulin Custom Condition: mg/dl range Dose/Route: Number of Units Protocol Text: Custom Sliding Scale Rx Instructions: 160 units before breakfast, 30 units before lunch, and 130 units before dinner insulin regular hum U-500 conc 500 unit/mL (3 mL) insulin pen 30 unit SUBCUT LUNCH Rx Instructions: 160 units before breakfast, 30 units before lunch, and 130 units before dinner insulin regular hum U-500 conc 500 unit/mL (3 mL) insulin pen 130 unit SUBCUT QHS Rx Instructions: 160 units before breakfast, 30 units before lunch, and 130 units before dinner Jardiance 25 mg tablet 25 mg PO DAILY levofloxacin 500 mg tablet 500 mg PO DAILY Qty: 10 0RF Primary Care Provider: Rik Peña Referrals: Rik Peña MD [Primary Care Provider] - 3-5 Days if not improving Activity Restrictions/Additional Instructions: Pneumonia seen on x-ray yesterday from our clinic. Finish your Levaquin. Take steroids as prescribed. Sugars will be elevated secondary to this. Inhaler as needed. Return if any worsening symptoms. Disposition Disposition: Home, Self Care Discharge Date/Time: 07/23/22 08:55
[2022-07-23] MEDS: predniSONE 20 MG Tablet 40 MG PO (08:51)
[2022-07-23 08:52] VITALS: BP 134/78; PULSE 83; RESP 18; TEMP 36.1; O2SAT 94
== END 2022-07-23 08:55 | disposition home or self-care (01) ==
PROVIDERS: Emergency Provider Emergency Medicine; PCP Family Medicine; Visit Provider Emergency Medicine
DX: J18.9 Pneumonia, unspecified organism (principal); J44.1 Chronic obstructive pulmonary disease with (acute) exacerbation; E11.9 Type 2 diabetes mellitus without complications; Z79.4 Long term (current) use of insulin; G47.33 Obstructive sleep apnea (adult) (pediatric); F32.9 Major depressive disorder, single episode, unspecified; F41.9 Anxiety disorder, unspecified; Z79.82 Long term (current) use of aspirin; Z79.84 Long term (current) use of oral hypoglycemic drugs; Z79.899 Other long term (current) drug therapy; Z87.891 Personal history of nicotine dependence
CPT/HCPCS: 99283

== ENCOUNTER 2022-08-20 07:29 | Emergency (ER) | payer OTHER, MEDICAID, SELFPAY ==
[2022-08-20 07:30] VITALS: BP 153/83; PULSE 83; RESP 17; TEMP 36; O2SAT 94; BMI 38.8
--- NOTE | 2022-08-20 08:10 | EX.ED.VIS.UR ---
HPI HPI - URI History of Present Illness Chief Complaint: Cough Informant: patient Onset/Context/Timing Onset: Days (5-6) Context: Gradual Onset Timing: Continuous Quality: Dull aching Location: Chest, back Worsened by: - (Nothing) Relieved by: - (Nothing) Associated Symptoms Associated Symptoms: Positive for Nasal Congestion, Headache, Sinus Pressure, Myalgias, Shortness of Breath, Chest Pain (With coughing) and Productive Cough; Negative for Nausea, Vomiting, Diarrhea, Nonproductive cough or Hemoptysis Narrative Narrative: Patient presents with cough and congestion that has been getting worse over the past 5 to 6 days. Patient states she has some pain in her chest and back with coughing. Patient describes it as dull and aching. Patient states she has been coughing up some green sputum. Patient states she had a recent COVID-19 PCR test which was negative. Patient was started on Zithromax Z-Peter 2 days ago. Patient states that her primary care physician told her if she is not markedly improved after 2 days of taking the Zithromax she should be seen again. Patient was unable to be seen at her primary care physician's office and presented to the emergency department. Patient denies any fevers or chills. Patient admits to some general myalgias and headache. Patient also admits to some sinus pressure. ROS ROS ED Constitutional Constitutional ED: Denies chills or fever(s) Eyes Eyes: Denies blurry vision or change in vision ENT ENT ED: Reports sore throat; Denies rhinorrhea Cardiovascular Cardiovascular: Reports chest pain; Denies palpitations Respiratory/Chest Respiratory/Chest: Reports cough and dyspnea Gastrointestinal Gastrointestinal: Denies nausea or vomiting Genitourinary Genitourinary ED: Denies dysuria or hematuria Musculoskeletal Musculoskeletal: Reports myalgias; Denies neck pain Integumentary Denies abscess or rash Neurologic Neurologic: Denies headache(s) or weakness Allergic/Immunologic Allergic/Immunologic ED: Denies mouth swelling or urticaria [facility] Medical History Allergies Anxiety Concussion Contact with and (suspected) exposure to other viral communicable diseases COPD (chronic obstructive pulmonary disease) Depression Elevated transaminase level Encounter for screening for malignant neoplasm of lung in former smoker who quit in past 15 years with 30 pack year history or greater Essential hypertension Fatigue GERD (gastroesophageal reflux disease) Hemorrhoids History of tobacco use Hyperglycemia Hyperlipidemia Hyponatremia Low back pain Lung infection MDD (major depressive disorder) Migraines Obesity DONNA (obstructive sleep apnea) Osteoarthritis Proteinuria Rectal bleed Right leg weakness Thrombocytopenia Trochanteric bursitis of left hip Type 2 diabetes mellitus with polyneuropathy Uncontrolled type 2 diabetes mellitus URI (upper respiratory infection) Home Medications albuterol sulfate 90 mcg/actuation aerosol inhaler 2 puff inhalation Q6H PRN PRN Shortness Of Breath 07/29/20 [History Last Taken Unknown] aspirin 81 mg chewable tablet 81 mg PO DAILY@0800 07/29/20 [History Last Taken 03/05/21] atorvastatin 20 mg tablet 20 mg PO QHS 07/29/20 [History Last Taken 03/04/21] diclofenac sodium 1 % topical gel 2 g topical BID PRN Pain 07/29/20 [History Last Taken Unknown] labetalol 100 mg tablet 100 mg PO BID 07/29/20 [History Last Taken 03/05/21] lisinopril 40 mg tablet 40 mg PO DAILY 07/29/20 [History Last Taken 03/05/21] metformin 1,000 mg tablet 1,000 mg PO BIDCM 07/29/20 [History Last Taken 03/05/21] insulin regular hum U-500 conc 500 unit/mL(3 mL) subcut pen 30 unit subcut LUNCH 02/16/22 [History Last Taken Unknown] insulin regular hum U-500 conc 500 unit/mL(3 mL) subcut pen 130 unit subcut QHS 02/16/22 [History Last Taken Unknown] insulin regular hum U-500 conc 500 unit/mL(3 mL) subcut pen 160 unit subcut BREAKFAST 02/16/22 [History Last Taken Unknown] empagliflozin 25 mg tablet (Jardiance) 25 mg PO DAILY 03/06/22 [History Last Taken Unknown] bupropion HCl 150 mg 24 hr tablet, extended release (Wellbutrin XL) 150 mg PO QAM #30 tabs 07/08/22 [Rx Last Taken Unknown] venlafaxine 75 mg capsule,extended release 24 hr See Rx Instructions PO DAILY #42 caps 07/08/22 [Rx Last Taken Unknown] levofloxacin 500 mg tablet 500 mg PO DAILY #10 tabs 07/22/22 [Rx Last Taken Unknown] prednisone 20 mg tablet 40 mg PO DAILY #8 tabs 07/23/22 [Rx Last Taken Unknown] levofloxacin 500 mg tablet 500 mg PO DAILY #7 tabs 08/20/22 [Rx Last Taken Unknown] Allergy/AdvReac Type Severity Reaction Status Date / Time cat dander Allergy Severe Swelling Verified 08/20/22 07:30 Family History Sister TBI (traumatic brain injury) Colon cancer Brother Substance abuse Depression Seizures Father Hypertension Prostate cancer Heart disease Arthritis Myocardial infarction Kidney disease Mother Depression Heart disease Diabetes Asthma Osteoporosis Respiratory disease Surgical History H/O cardiac catheterization H/O colonoscopy History of cholecystectomy History of endometrial ablation History of tonsillectomy and adenoidectomy Status post carpal tunnel release Social History Smoking Status: Former smoker alcohol intake: never substance use type: does not use EXAM Physical Exam Const Vital Signs: 08/20/22 07:30 08/20/22 08:21 08/20/22 08:25 Temperature 96.8 F L Temperature Source Temporal Pulse Rate 83 88 Respiratory Rate 17 18 Respiratory Effort Normal Respiratory Pattern Normal Blood Pressure 153/83 H Blood Pressure Mean 106 Pulse Ox 94 Oxygen Delivery Method Room Air 08/20/22 08:25 08/20/22 08:28 Temperature 96.8 F L Temperature Source Temporal Pulse Rate 83 Respiratory Rate 17 Respiratory Effort Respiratory Pattern Blood Pressure 153/83 H Blood Pressure Mean 106 Pulse Ox 93 94 Oxygen Delivery Method Room Air Room Air Positive well nourished, well developed and obese General Appearance ED: well developed and NAD Nutritional Appearance: obese HEENT Reports moist mucous membranes Neck supple and no JVD Resp normal respiratory effort and clear to auscultation bilaterally Cardio regular rate, regular rhythm and no murmurs GI normal to inspection, nondistended, normoactive bowel sounds and non-tender Palpation: soft Extremity normal to inspection General Extremety ED: Negative for edema or tenderness General Extremity: Negative for edema Neuro oriented x3, CN's II-XII intact bilaterally and no sensory deficits noted Sensorium / Orientation: alert Motor Exam: strength 5/5 throughout Psych mental status grossly normal Skin no rashes or lesions noted MDM MDM MDM Narrative Medical decision making narrative: Differential diagnosis includes pneumonia, viral upper respiratory infection, viral bronchitis, pneumothorax, sinusitis. Chest x-ray will be obtained to assess for pneumonia and bronchitis. Patient will be given a DuoNeb aerosol here. Influenza swab will be obtained to assess for influenza infection. Lab Data Lab results narrative: Influenza A and influenza B rapid antigens were reviewed and were negative. Radiography Diagnostic Testing: Clinical Impression(s) from Imaging Studies Chest X-Ray 08/20/22 08:40 IMPRESSION: Increased markings in the lung bases slightly worse on the left side suggestive of early infiltrate. Electronically Signed: Giovanni Amaral MD at 8:57 EST , PA and lateral chest x-rays obtained. There are 2 views. On my independent interpretation, there is a questionable infiltrate in the left lower lobe. There is no pneumothorax. Bony thorax is normal. There is no cardiomegaly. Radiologist also interpreted the x-ray and agrees. Treatment and Re-Evaluation Narrative: Patient is feeling better after DuoNeb treatment. Since the patient is not clinically improving on Zithromax, patient will be switched to Levaquin. Patient was instructed to stop taking Zithromax. Patient was instructed to follow-up with her primary care physician in 3 to 5 days. Patient understood and was agreeable with the plan. All questions were answered. Discharge Plan Triage Chief Complaint: Cough ED Provider: López Rea Dx/Rx/DC Orders Clinical Impression: Pneumonia, Cough, Obesity (BMI 30-39.9) Instructions: ED Pneumonia (Adult) Prescriptions: New levofloxacin [levofloxacin] 500 mg tablet 500 mg PO DAILY Qty: 7 0RF No Action venlafaxine 75 mg capsule,extended release 24hr See Rx Instructions PO DAILY Qty: 42 0RF Rx Instructions: 150 mg orally daily for 14 days THEN 75 mg orally for 14 days bupropion HCl [Wellbutrin XL] 150 mg tablet extended release 24 hr 150 mg PO QAM Qty: 30 2RF atorvastatin 20 MG tablet 20 mg PO QHS metformin 1,000 MG tablet 1,000 mg PO BIDCM aspirin 81 MG tablet,chewable 81 mg PO DAILY@0800 labetalol 100 MG tablet 100 mg PO BID albuterol sulfate 1 PUFF inhaler 2 puff INHALATION Q6H PRN PRN (Reason: Shortness Of Breath) lisinopril 40 MG tablet 40 mg PO DAILY diclofenac sodium 1 APPLIC gel 2 g TOPICAL BID PRN (Reason: Pain) insulin regular hum U-500 conc 500 unit/mL (3 mL) insulin pen 160 unit subcut BREAKFAST Protocol: 6. Sliding Scale Insulin Custom Condition: mg/dl range Dose/Route: Number of Units Protocol Text: Custom Sliding Scale Rx Instructions: 160 units before breakfast, 30 units before lunch, and 130 units before dinner insulin regular hum U-500 conc 500 unit/mL (3 mL) insulin pen 30 unit SUBCUT LUNCH Rx Instructions: 160 units before breakfast, 30 units before lunch, and 130 units before dinner insulin regular hum U-500 conc 500 unit/mL (3 mL) insulin pen 130 unit SUBCUT QHS Rx Instructions: 160 units before breakfast, 30 units before lunch, and 130 units before dinner Jardiance 25 mg tablet 25 mg PO DAILY prednisone 20 mg tablet 40 mg PO DAILY Qty: 8 0RF Rx Instructions: Next dose 07/24/2022 levofloxacin 500 mg tablet 500 mg PO DAILY Qty: 10 0RF Primary Care Provider: Rik Peña Referrals: Rik Peña MD [Primary Care Provider] - 3-5 Days Disposition Disposition: Home, Self Care
[2022-08-20] MEDS: Ipratropium/Albuterol Sulfate 3 ML AMPUL.NEB INHALATION (08:24)
[2022-08-20 08:25] VITALS: PULSE 88; RESP 18; O2SAT 93
[2022-08-20 08:28] VITALS: BP 153/83; PULSE 83; RESP 17; TEMP 36; O2SAT 94
--- NOTE | 2022-08-20 08:40 | RAD_ITS ---
STUDY: X-RAY CHEST REASON FOR EXAM: Female, 57 years old. Cough . History of recent pneumonia. TECHNIQUE: PA and lateral views of the chest. COMPARISON: Comparison is made with prior study dated 07/22/2022. FINDINGS: Increased linear markings in the left midlung suggestive of linear atelectasis. Mild increased markings at the lung bases slightly worse on the left lung base. Early infiltrate should be ruled out. There is no demonstrated pleural abnormality. Normal size heart. Normal mediastinum and brennan. Normal visualized pulmonary arteries. Normal visualized aortic arch and descending thoracic aorta. There are degenerative changes of the visualized thoracic spine. Normal visualized ribs, clavicles, and shoulders. There is no demonstrated abnormality of the visualized soft tissue structures of the upper abdomen. RAD/Chest PA and Lateral IMPRESSION: Increased markings in the lung bases slightly worse on the left side suggestive of early infiltrate. Electronically Signed: Giovanni Amaral MD at 8:57 EST ,
[2022-08-20 10:32] VITALS: BP 126/77; PULSE 71; RESP 16; O2SAT 98
[2022-08-20] MEDS: levoFLOXacin 750 MG Tablet PO (10:33)
== END 2022-08-20 10:34 | disposition home or self-care (01) ==
PROVIDERS: Emergency Provider Emergency Medicine; PCP Family Medicine; Visit Provider Emergency Medicine
DX: J18.9 Pneumonia, unspecified organism (principal); R05.9 Cough, unspecified; E66.9 Obesity, unspecified; G47.33 Obstructive sleep apnea (adult) (pediatric); Z87.891 Personal history of nicotine dependence
CPT/HCPCS: 71046; 87804; 94640; 99283

== ENCOUNTER → 2022-08-25 | Outpatient (CLI) | payer OTHER, MEDICAID, SELFPAY ==
--- NOTE | 2022-08-25 07:20 | RAD_ITS ---
HISTORY: Back pain. TECHNIQUE: XR Spine Lumbar Min 4 Views. COMPARISON: None. FINDINGS: VERTEBRAE: Vertebral body heights preserved. Posterior elements appear intact. ALIGNMENT: No significant anterior or posterior subluxation. INTERVERTEBRAL DISCS: Intervertebral disc spaces maintained. Mild degenerative endplate changes with osteophytes. SOFT TISSUES: Right upper quadrant surgical clips. RAD/L/S Spine Min 4 Views IMPRESSION: No acute fracture or dislocation identified in the lumbar spine. Mild degenerative change. Electronically Signed: Anette Manning MD at 14:43 EST ,
== END | disposition home or self-care (01) ==
LOC: RAD 07:14
PROVIDERS: PCP Family Medicine; Referring Provider Nurse Practitioner Family; Visit Provider Nurse Practitioner Family
DX: M54.9 Dorsalgia, unspecified (principal)
CPT/HCPCS: 72110

== ENCOUNTER → 2022-09-01 | Outpatient (CLI) | payer OTHER, MEDICAID, SELFPAY ==
--- NOTE | 2022-09-01 09:42 | US_ITS ---
STUDY: SUPERFICIAL ULTRASOUND - PERIUMBILICAL REGION. REASON FOR EXAM: Female, 57 years old. Incisional hernia around umbilicus TECHNIQUE: A superficial ultrasound was performed with real-time and static galvez-scale imaging. COMPARISON: None. FINDINGS: No definite umbilical hernia is seen. There is evidence of a diastases of the rectus abdominal muscles. US/Abdomen Limited IMPRESSION: No definite umbilical hernia is seen. Diastases of the rectus abdominal muscles. Electronically Signed: Giovanni Amaral MD at 15:02 EST ,
== END | disposition home or self-care (01) ==
LOC: US 09:41
PROVIDERS: PCP Family Medicine; Visit Provider Surgery
DX: K43.2 Incisional hernia without obstruction or gangrene (principal); R10.9 Unspecified abdominal pain
CPT/HCPCS: 76705

== ENCOUNTER → 2022-09-04 | Outpatient (CLI) | payer OTHER, MEDICAID, SELFPAY ==
--- NOTE | 2022-09-04 06:52 | CT_ITS ---
STUDY: CT ABDOMEN AND PELVIS WITHOUT CONTRAST REASON FOR EXAM: Female, 57 years old. Incisional hernia, right sided abdominal pain x years. RADIATION DOSAGE (If Supplied By Facility): CTDIvol = ( 24.18 ) mGy, DLP = ( 2827.17 ) mGycm TECHNIQUE: Transaxial images were obtained from the dome of the diaphragm to the symphysis pubis without oral contrast, and without intravenous contrast. Sagittal and coronal images were reconstructed. Individualized dose optimization techniques were used for this CT. COMPARISON: None. FINDINGS: Minimal increased linear markings in the posterior medial segment of the left lower lobe suggestive of a scarring. Mild coronary artery calcification. There is hepatomegaly with diffuse hepatic enlargement. There are surgical clips in the gallbladder fossa consistent with a prior cholecystectomy. There is moderate splenomegaly. Normal pancreas. Normal bilateral adrenal glands. Normal right kidney. Normal left kidney. Normal visualized stomach. Normal small intestine. Normal colon. The appendix is visualized and appears normal. There is scattered atherosclerotic calcification of the abdominal aorta, without a demonstrated aneurysm. Normal inferior vena cava. Normal retroperitoneum. Mild degree of increased markings in the peritoneal fat in the right mid abdomen. Normal urinary bladder. There is a small umbilical hernia containing fat. Normal osseous structures. CT/Abdomen/Pelvis without Cont IMPRESSION: Hepatosplenomegaly. Small umbilical hernia containing fat. Electronically Signed: Giovanni Amaral MD at 9:36 [facility] ,
== END | disposition home or self-care (01) ==
LOC: CT 06:51
PROVIDERS: PCP Family Medicine; Visit Provider Surgery
DX: K43.2 Incisional hernia without obstruction or gangrene (principal); R10.9 Unspecified abdominal pain
CPT/HCPCS: 74176

== ENCOUNTER 2022-11-04 10:21 | Day surgery (SDC) | payer MEDICAID, SELFPAY ==
--- NOTE | 2022-10-30 07:09 | EKG12_ITS ---
Test Reason : PRE OP Blood Pressure : / mmHG Vent. Rate : 072 BPM Atrial Rate : 072 BPM P-R Int : 144 ms QRS Dur : 088 ms QT Int : 392 ms P-R-T Axes : 015 -66 062 degrees QTc Int : 429 ms Normal sinus rhythm Left anterior fascicular block Septal infarct , age undetermined Confirmed by LÁZARO WOODSON, JENNI ([id number]), science editor AMADO KENNEDY ([id number]) on 11/02/2022 10:58:22 AM Referred By: Rosamaria Anderson Confirmed By:JENNI SESAY MD
[2022-10-30 07:36] LABS: Hematocrit 42.8 % (37-47); Hemoglobin 12.6 g/dL (12.0-15.0); Mean Corp Hgb Conc 29.4 g/dL (32-36); Mean Corpuscular Hgb 27.3 pg (27.0-32.0); Mean Corpuscular Volume 92.8 fL (81-99); Mean Platelet Vol. 10.1 fl (6.2-12.0); POSITIVE COUNT YES; Platelet Count 81 K/mm3 (150-450); RBC Distribution Width SD 54.1 fl (35.1-43.9); Red Blood Count 4.61 M/mm3 (4.2-5.4); White Blood Count 3.5 K/mm3 (4.4-11.0)
[2022-10-30 07:45] LABS: Scan Indicated on CBC? Y/N NO
[2022-10-30 08:09] LABS: Anion Gap 5 (5-15); BUN 17 mg/dL (7-18); BUN/Creat Ratio 15.6 RATIO (10-20); Calcium,Total 9.5 mg/dL (8.5-10.1); Chloride 105 mmol/L (98-107); Creatinine, Serum 1.09 mg/dL (0.55-1.02); EST Glomerular Filtration Rate 55 mL/min (>60); Est Glom Filt Rate - Afr Amer 67 mL/min (>60); Glucose 217 mg/dL (74-106); Potassium 4.5 mmol/L (3.5-5.1); Sodium Level 137 mmol/L (136-145)
[2022-10-30 08:20] LABS: Hemoglobin A1c 7.2 % (3.8-5.6)
[2022-11-04] VITALS (7 sets, daily range): BP systolic 111–146; BP diastolic 70–83; PULSE 76–92; RESP 18–20; TEMP 36.2–36.9; O2SAT 93–98; BMI 51.6
--- NOTE | 2022-11-04 10:27 | PCM.HP.STD ---
HPI - General General Date of Admission: 11/04/22 HPI Narrative JESE RESTREPO, is a 57 F who presents for incisional hernia repair with mesh at her umbilicus. Patient did have a CT abdomen pelvis done which appeared normal no evidence of any abscess that she previously gave a history of possible purulent material from her umbilicus. Patient has been compliant pain at the umbilicus. Patient also has a diastases as well. office visit 08/26/22 HPI HPI: 57-year-old female presents due to hernia at her umbilicus.? Patient previously had gallbladder removed greater than 20 years ago.? Patient states she does have a bulge at this area and can reduce.? Patient states she occasionally gets pain this area with movement.? Patient states she is actually noticed some right upper quadrant abdominal numbness that radiates to or from that area can last a minute to an hour, it occurs 1-2 times a day for the last year.? Patient also states that she has had a history of having some purulent material draining from her umbilicus she had this for several years states the last time was 2 to 3 years ago.? Just told by her PCP to keep the area clean. [facility] Medical History (Updated 11/04/22 @ 11:[address] Rosamaria Anderson MD) Allergies Anxiety Asthma Back pain Cardiology follow-up encounter Chronic cough Colitis Concussion Contact with and (suspected) exposure to other viral communicable diseases COPD (chronic obstructive pulmonary disease) CPAP (continuous positive airway pressure) dependence Depression Dietary restriction Disease of gingiva due to infection Elevated transaminase level Encounter for screening for malignant neoplasm of lung in former smoker who quit in past 15 years with 30 pack year history or greater Essential hypertension Fatigue Former smoker Heartburn Hemorrhoids History of echocardiogram History of edema History of steroid therapy History of stress test History of tobacco use History of ulceration Hyperglycemia Hyponatremia Insulin dependent diabetes mellitus Leg cramps Loss of hearing Lung infection MDD (major depressive disorder) Migraines Obesity Osteoarthritis Post-menopausal Proteinuria Rectal bleed Restless legs Right leg weakness Shortness of breath on exertion Thrombocytopenia Trochanteric bursitis of left hip URI (upper respiratory infection) Wears dentures Wears glasses Home Medications albuterol sulfate 90 mcg/actuation aerosol inhaler 2 puff inhalation Q6H PRN PRN Shortness Of Breath 07/29/20 [History Last Taken Unknown] aspirin 81 mg chewable tablet 81 mg PO DAILY@0800 07/29/20 [History Last Taken 03/05/21] labetalol 100 mg tablet 100 mg PO BID 07/29/20 [History Last Taken 11/04/22] lisinopril 40 mg tablet 40 mg PO DAILY 07/29/20 [History Last Taken 11/04/22] metformin 1,000 mg tablet 1,000 mg PO BIDCM 07/29/20 [History Last Taken 03/05/21] insulin regular hum U-500 conc 500 unit/mL(3 mL) subcut pen 30 unit subcut LUNCH 02/16/22 [History Last Taken Unknown] insulin regular hum U-500 conc 500 unit/mL(3 mL) subcut pen 80 unit subcut BREAKFAST 02/16/22 [History Last Taken 11/04/22] insulin regular hum U-500 conc 500 unit/mL(3 mL) subcut pen 130 unit subcut QHS 02/16/22 [History Last Taken Unknown] empagliflozin 25 mg tablet (Jardiance) 25 mg PO DAILY 03/06/22 [History Last Taken Unknown] hydroxyzine HCl 25 mg tablet 25 mg PO TID PRN anxiety #90 tabs 09/07/22 [Rx Last Taken Unknown] bupropion HCl 150 mg 24 hr tablet, extended release (Wellbutrin XL) 150 mg PO QAM #30 tabs 10/26/22 [Rx Last Taken 11/04/22] buspirone 10 mg tablet 10 mg PO BID 30 days #60 tabs 10/26/22 [Rx Last Taken 11/04/22] Allergy/AdvReac Type Severity Reaction Status Date / Time cat dander Allergy Severe Swelling Verified 11/04/22 10:43 Family History Sister TBI (traumatic brain injury) Colon cancer Brother Substance abuse Depression Seizures Father Hypertension Prostate cancer Heart disease Arthritis Myocardial infarction Kidney disease Mother Depression Heart disease Diabetes Asthma Osteoporosis Respiratory disease Surgical History (Updated 09/10/22 @ 14:31 by Katarina Bartlett) H/O cardiac catheterization H/O colonoscopy History of cholecystectomy History of endometrial ablation History of tonsillectomy and adenoidectomy Status post carpal tunnel release Social History Smoking Status: Former smoker alcohol intake: never substance use type: does not use Physical Exam Const alert, oriented x3 and no apparent distress HEENT normocephalic and head/scalp atraumatic Resp normal respiratory effort Cardio regular rate GI soft to palpation and non-tender; Negative for non-distended GI Narrative: Patient does have a diastases recti, unable to feel obvious hernia on exam but this is more difficult exam due to body habitus.? Currently patient denies any numbness in the right upper abdomen Palpation: Negative for guarding Extremity no clubbing, cyanosis or edema Neuro CN's II-XII intact bilaterally Psych mental status grossly normal Results Lab / Micro Data Result Diagrams: 10/30/22 07:10 10/30/22 07:10 Assessment & Plan Assessment/Plan (1) Incisional hernia: PLAN: Plan Plan to do an incisional hernia repair at umbilicus with mesh. Reviewed the procedure with the patient including the risks, including but not limited to infection, bleeding, injury to the small bowel, and recurrence. All questions were answered. Rosamaria Anderson M.D. Pager: [phone] [facility] [address] [place] [address], [address] [place] [address] Office: [phone]
[2022-11-04] MEDS: Lactated Ringers 1,000 ML 15 ML IV ×2 (10:59→12:53)
[2022-11-04 11:25] LABS: Bedside Glucose 166 mg/dL (74-106)
--- NOTE | 2022-11-04 12:00 | HERN_PTH ---
PATIENT: JESE CAREY LOC[place] [facility] [place][id number] AGE/SX: 57/F ROOM: RE11/04/[address]: Dr. Rosamaria Anderson MD : [id number] BED: DIS: 11/04/2022 SPEC #: [id number] RECD: 11/04/22 15:14 STATUS: WAGN REMarin #: [id number] TEQUILA: 11/04/22 12:[address]: Rosamaria Anderson DEPT: SURGICAL PATHOLOGY RECD BY: Joslyn Crowley ENTERED: 11/05/22 10:10 SP TYPE: Hernia OTHR DR: MD Dr. Rik Reddy MD Tissues: HERNIA Procedures: Surgery Specimen Level II HEADER OPERATION: Incisional hernia repair with mesh PRE-OP DIAGNOSIS: Incisional hernia TISSUE SUBMITTED: Hernia sac MICROSCOPIC DIAGNOSIS Hernia sac: A piece of fibroadipose and fibroconnective tissue, consistent with hernia sac with moderate chronic inflammation and reactive changes. IRINA:dulce 11/06/2022 MICROSCOPIC DESCRIPTION Slides are reviewed. GROSS DESCRIPTION Received in fixative is one container labeled with the patient's name and designated hernia sac. The specimen consists of a piece of hernandez-pink soft tissue measuring 6.0 x 2.5 x 0.8 cm. Sections do not reveal any mass lesion. [employer] sections are submitted in one cassette. / IRINA:dulce 11/05/2022 TC:5 CPT: 25843
--- NOTE | 2022-11-04 12:25 | PCM.OPRPT ---
Report of Operation Date of Procedure: 11/04/22 Pre-Operative Diagnosis: Incisional hernia Post-Operative Diagnosis: Same Surgery/Procedure Performed:: Incisional hernia repair with mesh Surgeon: Rosamaria Anderson milieu counselor: Elvie Castillo Type of Anesthesia: General/Supplemental Anesthesiologist: Raymond Garrett Special Medications: Ancef 3 g IV x1 Specimen's removed: Hernia sac Estimated Blood Loss (mL): < 10 cc Description of Procedure: Patient was brought into the room placed supine on the operating table. Correct patient, procedure, site, positioning, special, was verified prior to procedure. General anesthesia was induced. The abdomen was prepped draped in usual sterile fashion. A curvilinear incision was made above the umbilicus with a 15 blade scalpel. This was deepened with electrocautery. A hemostat was used to go around the stalk of the umbilicus and Metzenbaum scissors was used to carefully divide the hernia sac from the skin of the umbilicus. The fascia around the hernia defect was cleared and the hernia defect measured 1 cm x [address] hernia patch small was placed and laying flat. The tails of the mesh was sutured laterally with horizontal mattress sutures of 0 Prolene. The defect was also closed with [id number] and interrupted 0 Prolene suture. The wound was irrigated with saline. Hemostasis was assured. The skin of the umbilicus was secured to the fascia using 3-0 Vicryl suture interrupted. The incision was closed with 3-0 Vicryl subdermal interrupted sutures and the skin was closed with interrupted 4-0 Monocryl sutures. Steri-Strips and Tegaderm and OpSite were placed over the incision after sterile cotton balls were placed in the umbilicus. Patient was extubated. Patient tolerated procedure well and was taken to the postanesthesia care unit in stable condition. Grafts/Implants Used: Ventralex ST hernia patch ref [id number] Complications none
--- NOTE | 2022-11-04 12:29 | EX.PCM.DISCH ---
Discharge Instructions Diet Discharge Diet: Light diet - advance as tolerated Activity May shower in (days): 5 (Keep umbilical dressing clean dry and intact for 5 days. Okay to tape off with a Ziploc bag to shower to keep dry. Or lower shower and upper sponge bath.) Lifting Restrictions: no lifting >20 lbs x 2 wks, no strenuous exercise for 4 wks Additional Activity Instructions:: - Dressing / Incision Call your doctor if your incision/area has: Continuous Slow Oozing, Sudden Increased Bleeding, Increased Pain/ Swelling, Increased Redness, Foul Smelling Discharge and Swelling at the incision site Call your doctor if you observe: Fever of 101 or Higher Remove Dressing in: 5 days (After 5 days okay to remove surgical dressing. Place cotton ball or rolled up gauze in bellybutton and retape daily for 2 more days.) Cleanse incision/area with: Do not get Incision Wet (for 5 days) Additional Dressing/Incision Instructions:: Steri-Strips will fall off in 7 to 10 days, if they do not fall off okay to remove after 10 days. Follow Up Care Please Follow Up With: Rosamaria Anderson MD When: Call the office for a follow-up appointment 2 weeks; after 5 PM and on the weekends call [phone] with any concerns. Test Results: Test results from this visit will be discussed in further detail at your follow-up appointment, if applicable. Discharge Plan Admission Attending Provider: Rosamaria Anderson Primary Care Provider: Rik Peña Consulting Providers: Raymond Garrett Discharge Orders/Prescriptions Prescriptions: New oxycodone-acetaminophen 5-325 mg tablet 1 - 2 tab PO Q6H PRN (Reason: pain) 3 Days Qty: 14 0RF Continued hydroxyzine HCl 25 mg tablet 25 mg PO TID PRN (Reason: anxiety) Qty: 90 2RF buspirone 10 mg tablet 10 mg PO BID 30 Days Qty: 60 1RF metformin 1,000 MG tablet 1,000 mg PO BIDCM aspirin 81 MG tablet,chewable 81 mg PO DAILY@0800 labetalol 100 MG tablet 100 mg PO BID albuterol sulfate 1 PUFF inhaler 2 puff INHALATION Q6H PRN PRN (Reason: Shortness Of Breath) lisinopril 40 MG tablet 40 mg PO DAILY insulin regular hum U-500 conc 500 unit/mL (3 mL) insulin pen 80 unit subcut BREAKFAST Protocol: 6. Sliding Scale Insulin Custom Condition: mg/dl range Dose/Route: Number of Units Protocol Text: Custom Sliding Scale Rx Instructions: 160 units before breakfast, 30 units before lunch, and 130 units before dinner insulin regular hum U-500 conc 500 unit/mL (3 mL) insulin pen 30 unit SUBCUT LUNCH Rx Instructions: 160 units before breakfast, 30 units before lunch, and 130 units before dinner insulin regular hum U-500 conc 500 unit/mL (3 mL) insulin pen 130 unit SUBCUT QHS Rx Instructions: 160 units before breakfast, 30 units before lunch, and 130 units before dinner Jardiance 25 mg tablet 25 mg PO DAILY bupropion HCl [Wellbutrin XL] 150 mg tablet extended release 24 hr 150 mg PO QAM Qty: 30 2RF Referrals / Follow Up: Rik Peña MD [Primary Care Provider] - Disposition Disposition (needs filled in before D/C Order can be placed): Home, Self Care
[2022-11-04 13:16] LABS: Bedside Glucose 126 mg/dL (74-106)
--- NOTE | 2022-11-04 13:53 | SUR.PHASEI ---
INCENTIVE SPIROMETER GIVEN FOR DEEP BREATHING EXERCISES TO MAINTAIN SATS >90% PT PERFORMING WELL AND IS MOTIVATED.
== END 2022-11-04 15:04 | disposition home or self-care (01) ==
LOC: SDC 10:22 → AC 10:22
PROVIDERS: Anesthesiology; PCP Family Medicine; Referring Provider Surgery; Visit Provider Surgery
PROC: (CPT 49591; principal; 2022-11-04 11:45)
DX: K43.2 Incisional hernia without obstruction or gangrene (principal); Z79.4 Long term (current) use of insulin; E11.9 Type 2 diabetes mellitus without complications; I10 Essential (primary) hypertension; Z87.891 Personal history of nicotine dependence; Z79.82 Long term (current) use of aspirin; Z79.84 Long term (current) use of oral hypoglycemic drugs
CPT/HCPCS: 49591; 36415; 80048; 82962; 83036; 85027; 88302; 93005; J7120; C1781; J2405

== ENCOUNTER 2023-04-19 16:03 | Emergency (ER) | payer OTHER, SELFPAY ==
[2023-04-19 16:05] VITALS: BP 154/89; PULSE 85; RESP 18; TEMP 36.1; O2SAT 98; BMI 46.7
--- NOTE | 2023-04-19 16:18 | CT_ITS ---
STUDY: CT ABDOMEN AND PELVIS WITH CONTRAST REASON FOR EXAM: Female, 57 years old. umbilical hernia -- IV PO Contrast RADIATION DOSAGE (If Supplied By Facility): CTDIvol = ( 30.59 ) mGy, DLP = ( 2233.00 ) mGycm TECHNIQUE: Transaxial images were obtained from the dome of the diaphragm to the symphysis pubis without oral contrast. Oral and amp; IV Gastrografin and amp; 100mL Isovue-370 was administered. Sagittal and coronal images were reconstructed. Individualized dose optimization techniques were used for this CT. COMPARISON: September 04, 2022. FINDINGS: The visualized lung bases are unremarkable. The visualized portions of the heart are within normal limits. Cirrhosis of the liver. Normal gallbladder and extrahepatic biliary system. Enlarged spleen. Normal pancreas. Moderate ascites. Normal bilateral adrenal glands. Normal right kidney. Normal left kidney. Normal visualized stomach. Paraesophageal varices. Normal small intestine. Normal colon. The appendix is visualized and appears normal. Normal abdominal aorta. Normal inferior vena cava. Mild adenopathy in the retroperitoneum. Normal urinary bladder. Umbilical hernia with ascitic fluid measuring 4.6 x 4.8 x 3.8 cm. Normal osseous structures. CT/Abdomen/Pelvis WITH Contrast IMPRESSION: Umbilical hernia with ascitic fluid. Cirrhosis. Splenomegaly. Moderate ascites. Paraesophageal varices. Mild retroperitoneal adenopathy. Electronically Signed: Omega De Guzman DO at 18:49 EDT ,
--- NOTE | 2023-04-19 16:19 | EDS_ITS ---
HPI History of Present Illness Chief Complaint: Abd Pain Informant: patient Onset/Context/Timing Onset: Weeks Narrative Narrative: Patient presents with concern for recurrent umbilical hernia. She had surgery in October with Dr. Anderson for an umbilical hernia repair with mesh placement. She was at work at [employer] about a month ago when she was lifting boxes and felt a pulling sensation and is now had increasing pain. She states that she tried to follow-up with Dr. Anderson but was told because it was a Worker's Comp. case she had to go see a Worker's Comp. doctor first. She finally found out today that she can go see [facility]. She went there and they advised her she needed to come to the emergency room for a CAT scan. [facility] Medical History Allergies Anxiety Asthma Back pain Cardiology follow-up encounter Chronic cough Colitis Concussion Contact with and (suspected) exposure to other viral communicable diseases COPD (chronic obstructive pulmonary disease) CPAP (continuous positive airway pressure) dependence Depression Dietary restriction Disease of gingiva due to infection Elevated transaminase level Encounter for screening for malignant neoplasm of lung in former smoker who quit in past 15 years with 30 pack year history or greater Essential hypertension Fatigue Former smoker Heartburn Hemorrhoids History of echocardiogram History of edema History of steroid therapy History of stress test History of tobacco use History of ulceration Hyperglycemia Hyponatremia Incisional hernia Insulin dependent diabetes mellitus Leg cramps Loss of hearing Lung infection MDD (major depressive disorder) Migraines Obesity Osteoarthritis Post-menopausal Proteinuria Rectal bleed Restless legs Right leg weakness Shortness of breath on exertion Thrombocytopenia Trochanteric bursitis of left hip URI (upper respiratory infection) Wears dentures Wears glasses Home Medications albuterol sulfate 90 mcg/actuation aerosol inhaler 2 puff inhalation Q6H PRN PRN Shortness Of Breath 07/29/20 [History Last Taken Unknown] aspirin 81 mg chewable tablet 81 mg PO DAILY@0800 07/29/20 [History Last Taken 03/05/21] labetalol 100 mg tablet 100 mg PO BID 07/29/20 [History Last Taken 11/04/22] lisinopril 40 mg tablet 40 mg PO DAILY 07/29/20 [History Last Taken 11/04/22] metformin 1,000 mg tablet 1,000 mg PO BIDCM 07/29/20 [History Last Taken 03/05/21] insulin regular hum U-500 conc 500 unit/mL(3 mL) subcut pen 30 unit subcut LUNCH 02/16/22 [History Last Taken Unknown] insulin regular hum U-500 conc 500 unit/mL(3 mL) subcut pen 80 unit subcut BREAKFAST 02/16/22 [History Last Taken 11/04/22] insulin regular hum U-500 conc 500 unit/mL(3 mL) subcut pen 130 unit subcut QHS 02/16/22 [History Last Taken Unknown] empagliflozin 25 mg tablet (Jardiance) 25 mg PO DAILY 03/06/22 [History Last Taken Unknown] oxycodone-acetaminophen 5 mg-325 mg tablet 1 - 2 tab PO Q6H PRN pain 3 days #14 tabs 11/04/22 [Rx Last Taken Unknown] bupropion HCl 300 mg 24 hr tablet, extended release 300 mg PO QAM 30 days #30 tabs 02/01/23 [Rx Last Taken Unknown] buspirone 10 mg tablet 10 mg PO BID 30 days #60 tabs 02/01/23 [Rx Last Taken Unknown] hydroxyzine HCl 25 mg tablet 25 mg PO TID PRN anxiety #90 tabs 02/01/23 [Rx Last Taken Unknown] Allergy/AdvReac Type Severity Reaction Status Date / Time cat dander Allergy Severe Swelling Verified 04/19/23 16:05 Family History Sister TBI (traumatic brain injury) Colon cancer Brother Substance abuse Depression Seizures Father Hypertension Prostate cancer Heart disease Arthritis Myocardial infarction Kidney disease Mother Depression Heart disease Diabetes Asthma Osteoporosis Respiratory disease Surgical History H/O cardiac catheterization H/O colonoscopy History of cholecystectomy History of endometrial ablation History of incisional hernia repair History of tonsillectomy and adenoidectomy Status post carpal tunnel release Social History Smoking Status: Former smoker alcohol intake: never substance use type: does not use ROS ROS ED Constitutional Constitutional ED: Denies chills or fever(s) Eyes Eyes: Denies change in vision ENT ENT ED: Denies rhinorrhea or sore throat Cardiovascular Cardiovascular: Denies chest pain or palpitations Respiratory/Chest Respiratory/Chest: Denies cough or dyspnea Gastrointestinal Gastrointestinal: Reports abdominal pain and constipation; Denies diarrhea, nausea or vomiting Genitourinary Genitourinary ED: Denies dysuria Musculoskeletal Musculoskeletal: Denies back pain or extremity pain Integumentary Denies Abrasions or rash Neurologic Neurologic: Denies headache(s) or weakness Psychiatric Psychiatric: Denies anxiety or depression Allergic/Immunologic Allergic/Immunologic ED: Denies lip swelling or urticaria EXAM Physical Exam Const Vital Signs: 04/19/23 16:05 04/19/23 18:43 Temperature 96.9 F L Temperature Source Temporal Pulse Rate 85 83 Respiratory Rate 18 18 Blood Pressure 154/89 H 165/91 H Blood Pressure Mean 110 115 Pulse Ox 98 98 Oxygen Delivery Method Room Air Room Air Positive well nourished and well developed General Appearance ED: well developed HEENT Reports moist mucous membranes Eyes EOMs intact bilaterally Chest Wall inspection of chest normal and palpation of chest normal Resp normal respiratory effort and clear to auscultation bilaterally Cardio regular rate and regular rhythm GI GI Narrative: Firm hernia noted just superior to the umbilicus. Neuro oriented x3 and no sensory deficits noted Motor Exam: strength 5/5 throughout Psych mental status grossly normal Skin no rashes or lesions noted MDM MDM MDM Narrative Medical decision making narrative: Labwork obtained to evaluate for leukocytosis, anemia, and electrolyte derangement. CT scan of the abdomen pelvis with p.o. and IV contrast will be obtained to evaluate for recurrent hernia. Lab Data Attestation: I reviewed the patient's lab results. Labs: Laboratory Results - last 24 hr 04/19/23 04/19/23 16:28 17:24 WBC 3.0 L RBC 4.60 Hgb 12.4 Hct 40.3 MCV 87.6 MCH 27.0 MCHC 30.8 L RDW Std Deviation 49.1 H RDW Coeff of Stu 15.3 H Plt Count 75 L MPV 10.8 Immature Gran % (Auto) 0.000 Neut % (Auto) 71.8 H Lymph % (Auto) 18.8 L [place] % (Auto) 9.1 Eos % (Auto) 0.0 Baso % (Auto) 0.3 Absolute Neuts (auto) 2.1 Absolute Lymphs (auto) 0.56 L Nucleated RBC % 0 Differential Comment SCANNED Sodium 140 Potassium 3.8 Chloride 105 Carbon Dioxide 31.0 Anion Gap 4 L BUN 10 Creatinine 0.90 Estim Creat Clear Calc 63.55 Est GFR (MDRD) Af Amer 84 Est GFR (MDRD) Non-Af 69 BUN/Creatinine Ratio 11.1 Glucose 100 Calcium 9.3 Urine Color Straw Urine Clarity Clear Urine pH 7.0 Ur Specific [place] 1.005 Urine Protein 100 H Urine Glucose (UA) Normal Urine Ketones Negative Urine Occult Blood 10 H Urine Nitrite Negative Urine Bilirubin Negative Urine Urobilinogen Normal Ur Leukocyte Esterase Negative Urine RBC 0 SEEN Urine WBC 0 SEEN Ur Squamous Epith Cells 0-5 SEEN Urine Bacteria 0 SEEN Urine Mucus 0 SEEN Radiography Diagnostic Testing: Clinical Impression(s) from Imaging Studies Abdomen/Pelvis CT 04/19/23 16:18 IMPRESSION: Umbilical hernia with ascitic fluid. Cirrhosis. Splenomegaly. Moderate ascites. Paraesophageal varices. Mild retroperitoneal adenopathy. Electronically Signed: Omega De Guzman DO at 18:49 EDT Reading Location ID and State: [facility] / [place] Tel [phone], Service support , Treatment and Re-Evaluation :: Patient's white blood cell count is low at 3 but this is consistent with her prior values. Platelet count is also low at 75,000, again consistent with her prior values. Hemoglobin is normal at 12.4. Chemistry studies are largely unremarkable. Urinalysis is negative. CT scan of the abdomen and pelvis reveals umbilical hernia with ascitic fluid noted. No bowel in the hernia. I spoke with Dr. Anderson who reviewed the images. Patient did not have the ascites noted on her current study on her prior scans from last spring. Patient denies any known history of liver disease. She has a GI doctor through [facility] that she can follow-up with. I will draw LFTs prior to her discharge. Discharge Plan Triage Chief Complaint: Abd Pain ED Provider: Deisi Ibarra Dx/Rx/DC Orders Clinical Impression: Abdominal ascites Instructions: ED Ascites Prescriptions: No Action metformin 1,000 MG tablet 1,000 mg PO BIDCM aspirin 81 MG tablet,chewable 81 mg PO DAILY@0800 labetalol 100 MG tablet 100 mg PO BID albuterol sulfate 1 PUFF inhaler 2 puff INHALATION Q6H PRN PRN (Reason: Shortness Of Breath) lisinopril 40 MG tablet 40 mg PO DAILY insulin regular hum U-500 conc 500 unit/mL (3 mL) insulin pen 80 unit subcut BREAKFAST Protocol: 6. Sliding Scale Insulin Custom Condition: mg/dl range Dose/Route: Number of Units Protocol Text: Custom Sliding Scale Rx Instructions: 160 units before breakfast, 30 units before lunch, and 130 units before dinner insulin regular hum U-500 conc 500 unit/mL (3 mL) insulin pen 30 unit SUBCUT LUNCH Rx Instructions: 160 units before breakfast, 30 units before lunch, and 130 units before dinner insulin regular hum U-500 conc 500 unit/mL (3 mL) insulin pen 130 unit SUBCUT QHS Rx Instructions: 160 units before breakfast, 30 units before lunch, and 130 units before dinner Jardiance 25 mg tablet 25 mg PO DAILY oxycodone-acetaminophen 5-325 mg tablet 1 - 2 tab PO Q6H PRN (Reason: pain) 3 Days Qty: 14 0RF bupropion HCl 300 mg tablet extended release 24 hr 300 mg PO QAM 30 Days Qty: 30 2RF buspirone 10 mg tablet 10 mg PO BID 30 Days Qty: 60 1RF hydroxyzine HCl 25 mg tablet 25 mg PO TID PRN (Reason: anxiety) Qty: 90 2RF Primary Care Provider: See Reece Referrals: Rik Peña MD [Med Staff - Active Staff] - Activity Restrictions/Additional Instructions: Please follow-up with GI through [facility] as discussed. You do have excess fluid in your abdomen commonly known as ascites. You have been given information on this. Disposition Disposition: Home, Self Care
[2023-04-19 16:42] LABS: Absolute Lymphocyte Count 0.56 X10^3/uL (0.83-4.51); Absolute Neutrophil Count 2.1 X10^3/uL (2.0-7.7); Basophil# 0.01 X10^3/uL; Basophil% 0.3 % (0-1); Hematocrit 40.3 % (37-47); Hemoglobin 12.4 g/dL (12.0-15.0); Lymphocyte # 0.56 X10^3/ul (0.83-4.51); Lymphocyte % 18.8 % (19-41); Mean Corp Hgb Conc 30.8 g/dL (32-36); Mean Corpuscular Volume 87.6 fL (81-99); Mean Platelet Vol. 10.8 fl (6.2-12.0); Monocyte# 0.27 X10^3/uL; Monocyte% 9.1 % (0-10); NRBC Flagged by Analyzer 0 % (0-5); Neutrophil # 2.14 X10^3/uL (2.7-7.7); Neutrophil % 71.8 % (47-70); POSITIVE COUNT YES; POSITIVE DIFFERENTIAL YES; Platelet Count 75 K/mm3 (150-450); RBC Distribution Width CV 15.3 % (11.6-14.6); RBC Distribution Width SD 49.1 fl (35.1-43.9)
[2023-04-19 16:45] LABS: Differential Indicated SCAN CRITERIA MET
[2023-04-19 16:46] LABS: Anion Gap 4 (5-15); BUN 10 mg/dL (7-18); BUN/Creat Ratio 11.1 RATIO (10-20); Calcium,Total 9.3 mg/dL (8.5-10.1); Chloride 105 mmol/L (98-107); EST Glomerular Filtration Rate 69 mL/min (>60); Est Glom Filt Rate - Afr Amer 84 mL/min (>60); Estimated Creatinine Clearance 63.55 ml/min; Glucose 100 mg/dL (74-106); Potassium 3.8 mmol/L (3.5-5.1); Sodium Level 140 mmol/L (136-145)
[2023-04-19 17:12] LABS: Differential Comment SCANNED
[2023-04-19 17:27] LABS: Bacteria 0 SEEN /hpf (None Seen); Mucous, Urine 0 SEEN /hpf (<or=2+); Red Blood Cells-Urine 0 SEEN /hpf (0-5); White Blood Cells 0 SEEN /hpf (0-5)
[2023-04-19 17:31] LABS: Color, Urine Straw (Yellow); Glucose, Dipstick Normal (Normal); Ketone-Dipstick Negative (Negative); Leukocyte Esterase-Dipstick Negative /ul (Negative); Nitrite-Dipstick Negative (Negative); Occult Blood-Urine 10 /ul (Negative); Protein-Dipstick 100 mg/dl (Negative); Specific Gravity, Urine 1.005 (1.002-1.030); Urine Bilirubin Dipstick Negative (Negative); Urine Clarity Clear (Clear); Urine Urobilinogen Normal (Normal)
[2023-04-19 17:54] LABS: Squamous Epithelial Cells - UA 0-5 SEEN /hpf (5-10)
[2023-04-19 18:43] VITALS: BP 165/91; PULSE 83; RESP 18; O2SAT 98
[2023-04-19 19:43] LABS: AST(SGOT) 25 U/L (15-37); Alanine Aminotransfer ALT/SGPT 26 U/L (13-56); Albumin, Serum 3.3 g/dL (3.2-5.0); Alkaline Phosphatase 126 U/L (45-117); Bilirubin, Direct 0.36 mg/dL (0.00-0.30); Globulin 4.4 g/dL (2.2-4.2); Protein, Total 7.7 g/dL (6.4-8.2)
== END 2023-04-19 19:30 | disposition home or self-care (01) ==
PROVIDERS: Emergency Provider Emergency Medicine; PCP Family Medicine; Visit Provider Emergency Medicine
DX: R18.8 Other ascites (principal); Z87.891 Personal history of nicotine dependence
CPT/HCPCS: 74177; 80048; 80076; 81001; 85025; 99283; Q9967; A4216

== ENCOUNTER 2023-10-01 13:31 | Emergency (ER) | payer BC, SELFPAY ==
[2023-10-01 13:32] VITALS: O2SAT 96
[2023-10-01 13:33] VITALS: BP 144/76; PULSE 67; RESP 22; TEMP 36.6; O2SAT 94; BMI 45.4
[2023-10-01] MEDS: Ipratropium/Albuterol Sulfate 3 ML AMPUL.NEB INHALATION (14:17)
[2023-10-01] MEDS: Albuterol 2.5 MG/3 ML VIAL.NEB. INHALATION (14:17)
[2023-10-01 14:20] VITALS: PULSE 70; RESP 18
[2023-10-01] MEDS: predniSONE 20 MG Tablet 60 MG PO (14:29)
--- NOTE | 2023-10-01 14:30 | RAD_ITS ---
STUDY: X-RAY CHEST REASON FOR EXAM: Female, 58 years old. Cough TECHNIQUE: PA and lateral views of the chest. COMPARISON: Comparison is made with prior study dated August 20, 2022. FINDINGS: Stable mild increased markings at the lung bases suggestive of mild scarring. There is no demonstrated pleural abnormality. Normal size heart. Calcified bilateral hilar lymph nodes. Normal visualized pulmonary arteries. Normal visualized aortic arch and descending thoracic aorta. There are mild degenerative changes of the visualized thoracic spine. Normal visualized ribs, clavicles, and shoulders. There is no demonstrated abnormality of the visualized soft tissue structures of the upper abdomen. RAD/Chest PA and Lateral IMPRESSION: Stable examination. No acute abnormality is seen. Electronically Signed: Giovanni Amaral MD at 14:41 EDT ,
--- NOTE | 2023-10-01 14:56 | EX.ED.DYSGE1 ---
HPI <HERMES Donnelly - Last Filed: 10/01/23 20:36> History of Present Illness Chief Complaint: Shortness of Breath Narrative Narrative: Presenting today due to flulike symptoms she has had since Wednesday. She reports that she has had nasal congestion, nonproductive cough, sore throat, body aches, and chills. She reports that she is felt slightly short of breath with exertion. She denies any chest pain but reports that it feels like her lungs are tight. She has a history of COPD and does have inhalers at home that she can use but reports that she does not like to use them often because they are expensive to refill. was recently sick with similar symptoms and she reports multiple coworkers have been sick. She denies any fevers, chest pain, nausea, and vomiting. PFSH <HERMES Donnelly - Last Filed: 10/01/23 20:36> [facility] Medical History Allergies Anxiety Asthma Back pain Cardiology follow-up encounter Chronic cough Colitis Concussion Contact with and (suspected) exposure to other viral communicable diseases COPD (chronic obstructive pulmonary disease) CPAP (continuous positive airway pressure) dependence Depression Dietary restriction Disease of gingiva due to infection Elevated transaminase level Encounter for screening for malignant neoplasm of lung in former smoker who quit in past 15 years with 30 pack year history or greater Essential hypertension Fatigue Former smoker Heartburn Hemorrhoids History of echocardiogram History of edema History of steroid therapy History of stress test History of tobacco use History of ulceration Hyperglycemia Hyponatremia Incisional hernia Insulin dependent diabetes mellitus Leg cramps Liver disease Loss of hearing Lung infection MDD (major depressive disorder) Migraines Obesity Osteoarthritis Post-menopausal Proteinuria Rectal bleed Restless legs Right leg weakness Shortness of breath on exertion Thrombocytopenia Trochanteric bursitis of left hip URI (upper respiratory infection) Wears dentures Wears glasses Home Medications albuterol sulfate 90 mcg/actuation aerosol inhaler 2 puff inhalation Q6H PRN PRN Shortness Of Breath 07/29/20 [History Last Taken 10/01/23] aspirin 81 mg chewable tablet 81 mg PO DAILY@0800 07/29/20 [History Last Taken 10/01/23] labetalol 100 mg tablet 100 mg PO BID 07/29/20 [History Last Taken 10/01/23] lisinopril 40 mg tablet 40 mg PO DAILY 07/29/20 [History Last Taken 10/01/23] metformin 1,000 mg tablet 1,000 mg PO BIDCM 07/29/20 [History Last Taken 10/01/23] insulin regular hum U-500 conc 500 unit/mL(3 mL) subcut pen 30 unit subcut LUNCH 02/16/22 [History Last Taken 10/01/23] insulin regular hum U-500 conc 500 unit/mL(3 mL) subcut pen 130 unit subcut QHS 02/16/22 [History Last Taken 10/01/23] insulin regular hum U-500 conc 500 unit/mL(3 mL) subcut pen 160 unit subcut BREAKFAST 02/16/22 [History Last Taken 10/01/23] oxycodone-acetaminophen 5 mg-325 mg tablet 1 - 2 tab PO Q6H PRN pain 3 days #14 tabs 11/04/22 [Rx Last Taken Unknown] bupropion HCl 300 mg 24 hr tablet, extended release 300 mg PO QAM 30 days #30 tabs 02/01/23 [Rx Last Taken 10/01/23] buspirone 10 mg tablet 10 mg PO BID 30 days #60 tabs 02/01/23 [Rx Last Taken 10/01/23] hydroxyzine HCl 25 mg tablet 25 mg PO TID PRN anxiety #90 tabs 02/01/23 [Rx Last Taken Unknown] prednisone 20 mg tablet 40 mg (2 x 20 mg) PO DAILY 10 days #19 tabs 10/01/23 [Rx Last Taken Unknown] Allergy/AdvReac Type Severity Reaction Status Date / Time cat dander Allergy Severe Swelling Verified 10/01/23 13:33 Family History Sister TBI (traumatic brain injury) Colon cancer Brother Substance abuse Depression Seizures Father Hypertension Prostate cancer Heart disease Arthritis Myocardial infarction Kidney disease Mother Depression Heart disease Diabetes Asthma Osteoporosis Respiratory disease Surgical History H/O cardiac catheterization H/O colonoscopy History of cholecystectomy History of endometrial ablation History of incisional hernia repair History of tonsillectomy and adenoidectomy Status post carpal tunnel release Social History Smoking Status: Former smoker alcohol intake: never substance use type: does not use ROS <HERMES Donnelly - Last Filed: 10/01/23 20:36> ROS ED Constitutional Constitutional ED: Reports chills; Denies fever(s) Cardiovascular Cardiovascular: Denies chest pain or palpitations Respiratory/Chest Respiratory/Chest: Reports cough and dyspnea on exertion; Denies tachypnea or wheezing Gastrointestinal Gastrointestinal: Denies abdominal pain, nausea or vomiting Musculoskeletal Musculoskeletal: Reports other Details: Body aches Integumentary Denies rash Neurologic Neurologic: Denies weakness EXAM <HERMES Donnelly - Last Filed: 10/01/23 20:36> Physical Exam Const Vital Signs: 10/01/23 13:33 10/01/23 13:32 10/01/23 14:20 Temperature 97.8 F Temperature Source Temporal Pulse Rate 67 70 Respiratory Rate 22 H 18 Respiratory Effort Normal Non-Labored Respiratory Depth Normal Respiratory Pattern Normal Normal Blood Pressure 144/76 H Blood Pressure Mean 98 Pulse Ox 94 Oxygen Delivery Method Room Air Room Air 10/01/23 15:10 Temperature 98.2 F Temperature Source Pulse Rate 71 Respiratory Rate 18 Respiratory Effort Respiratory Depth Respiratory Pattern Blood Pressure 142/70 H Blood Pressure Mean 94 Pulse Ox 96 Oxygen Delivery Method Positive well nourished, well developed and no apparent distress General Appearance ED: well developed HEENT Reports normocephalic, head/scalp atraumatic and TM's clear HEENT Narrative: Posterior pharynx clear, uvula midline Tympanic Membrane ED: Yes TM's clear bilateral Mouth ED: Yes moist mucous membranes normal Eyes PERRL and EOMs intact bilaterally Neck full ROM and supple Chest Wall inspection of chest normal Resp normal respiratory effort and clear to auscultation bilaterally Cardio regular rate and regular rhythm GI soft to palpation, non-tender, non-distended and no masses Back/Spine normal ROM and normal to inspection Extremity normal to inspection and full ROM Neuro oriented x3, CN's II-XII intact bilaterally, moves all extremities, no focal motor deficits and no sensory deficits noted Sensorium / Orientation: awake and alert Psych mental status grossly normal and thought process normal Skin no rashes or lesions noted and no wounds <Dr. Antwon Zavala MD - Last Filed: 10/01/23 15:12> Physical Exam Const Vital Signs: 10/01/23 13:33 10/01/23 13:32 10/01/23 14:20 Temperature 97.8 F Temperature Source Temporal Pulse Rate 67 70 Respiratory Rate 22 H 18 Respiratory Effort Normal Non-Labored Respiratory Depth Normal Respiratory Pattern Normal Normal Blood Pressure 144/76 H Blood Pressure Mean 98 Pulse Ox 94 Oxygen Delivery Method Room Air Room Air 10/01/23 15:10 Temperature 98.2 F Temperature Source Pulse Rate 71 Respiratory Rate 18 Respiratory Effort Respiratory Depth Respiratory Pattern Blood Pressure 142/70 H Blood Pressure Mean 94 Pulse Ox 96 Oxygen Delivery Method [place] <HERMES Donnelly - Last Filed: 10/01/23 20:36> [facility] Narrative Medical decision making narrative: Patient presenting with symptoms that are consistent with a viral illness that she has had since Wednesday. I did offer influenza/COVID/RSV swab and she declines. She is agreeable to having a chest x-ray performed, this is negative for infiltrate. I do think that she would benefit from prednisone, she will be given her first dose here. She was given breathing treatments and reports improvement of her symptoms. She is afebrile and oxygen saturation is 96% on room air. Given she is not hypoxic, I do feel that she can be treated with supportive care measures and prednisone. I encouraged that she follow-up with her PCP and use her inhalers as prescribed. She will be discharged home in stable condition. I have personally performed a face to face assessment of the patient and have reviewed the CARIE Note. I performed a substantive portion of the visit including all aspects of the following. My ford findings include: History is [58-year-old female history of COPD. Has inhaler at home. Significant other has had a URIs for 2 to 3 weeks. She started getting symptoms 1 to 2 days ago. Cough. Shortness of breath. Says her lungs feel tight. No chest pain. No hemoptysis. No fever. No leg pain or swelling.] Exam is [well-appearing 58-year-old female. Vital signs are stable afebrile. Pulse ox 94% on room air no hypoxia. H EENT exam unremarkable. Neck nontender. No JVD. Lungs clear to auscultation bilaterally. Currently no rales rhonchi or wheezing. Good air exchange. I examined her after she had her aerosol treatments and her prednisone. Heart regular rate and rhythm rate about 70 no murmur. Chest wall nontender. Abdomen soft nontender. Moving all 4 extremities. Calves are nontender without edema or cords. Neurologically she is awake and alert.] Medical Decision Making [patient with URI and COPD flare. Chest x-ray showed no pneumonia. She wanted no viral testing. She really did not want labs. She will be treated with oral prednisone 40 mg a day for the next 10 days. Outpatient follow-up to ensure she is improving or return if worse.] Other additions or changes: [None] Radiography Diagnostic Testing: Clinical Impression(s) from Imaging Studies Chest X-Ray 10/01/23 14:30 IMPRESSION: Stable examination. No acute abnormality is seen. Electronically Signed: Giovanni Amaral MD at 14:41 EDT , <Dr. Antwon Zavala MD - Last Filed: 10/01/23 15:12> [facility] Narrative Medical decision making narrative: I have personally performed a face to face assessment of the patient and have reviewed the CARIE Note. I performed a substantive portion of the visit including all aspects of the following. My ford findings include: History is [58-year-old female history of COPD. Has inhaler at home. Significant other has had a URIs for 2 to 3 weeks. She started getting symptoms 1 to 2 days ago. Cough. Shortness of breath. Says her lungs feel tight. No chest pain. No hemoptysis. No fever. No leg pain or swelling.] Exam is [well-appearing 58-year-old female. Vital signs are stable afebrile. Pulse ox 94% on room air no hypoxia. H EENT exam unremarkable. Neck nontender. No JVD. Lungs clear to auscultation bilaterally. Currently no rales rhonchi or wheezing. Good air exchange. I examined her after she had her aerosol treatments and her prednisone. Heart regular rate and rhythm rate about 70 no murmur. Chest wall nontender. Abdomen soft nontender. Moving all 4 extremities. Calves are nontender without edema or cords. Neurologically she is awake and alert.] Medical Decision Making [patient with URI and COPD flare. Chest x-ray showed no pneumonia. She wanted no viral testing. She really did not want labs. She will be treated with oral prednisone 40 mg a day for the next 10 days. Outpatient follow-up to ensure she is improving or return if worse.] Other additions or changes: [None] Radiography Chest X-Ray - ED: 2 View, Read by ED Physician, Read by Radiologist, Heart, Lungs, Mediastinum, Bony Structures, No Acute Disease and Chronic Changes Diagnostic Testing: Clinical Impression(s) from Imaging Studies Chest X-Ray 10/01/23 14:30 IMPRESSION: Stable examination. No acute abnormality is seen. Electronically Signed: Giovanni Amaral MD at 14:41 EDT , Chest x-ray, 2 views, AP and lateral, interpreted by myself and radiologist shows no acute abnormality. Normal cardiac silhouette. Normal lung cobos. No pneumonia. No effusions. Chronic changes. Discharge Plan Triage Chief Complaint: Shortness of Breath ED Midlevel Provider: Giuliana Holden ED Provider: Antwon Zavala Dx/Rx/DC Orders Clinical Impression: Viral URI, COPD exacerbation Instructions: ED COPD Flare, ED URI, Viral, No Abx (Adult) Prescriptions: New prednisone 20 mg tablet 40 mg PO DAILY 10 Days Qty: 19 0RF No Action metformin 1,000 MG tablet 1,000 mg PO BIDCM aspirin 81 MG tablet,chewable 81 mg PO DAILY@0800 labetalol 100 MG tablet 100 mg PO BID albuterol sulfate 1 PUFF inhaler 2 puff INHALATION Q6H PRN PRN (Reason: Shortness Of Breath) lisinopril 40 MG tablet 40 mg PO DAILY insulin regular hum U-500 conc 500 unit/mL (3 mL) insulin pen 160 unit subcut BREAKFAST Protocol: 6. Sliding Scale Insulin Custom Condition: mg/dl range Dose/Route: Number of Units Protocol Text: Custom Sliding Scale Rx Instructions: 160 units before breakfast, 30 units before lunch, and 130 units before dinner insulin regular hum U-500 conc 500 unit/mL (3 mL) insulin pen 30 unit SUBCUT LUNCH Rx Instructions: 160 units before breakfast, 30 units before lunch, and 130 units before dinner insulin regular hum U-500 conc 500 unit/mL (3 mL) insulin pen 130 unit SUBCUT QHS Rx Instructions: 160 units before breakfast, 30 units before lunch, and 130 units before dinner oxycodone-acetaminophen 5-325 mg tablet 1 - 2 tab PO Q6H PRN (Reason: pain) 3 Days Qty: 14 0RF bupropion HCl 300 mg tablet extended release 24 hr 300 mg PO QAM 30 Days Qty: 30 2RF buspirone 10 mg tablet 10 mg PO BID 30 Days Qty: 60 1RF hydroxyzine HCl 25 mg tablet 25 mg PO TID PRN (Reason: anxiety) Qty: 90 2RF Primary Care Provider: See Reece Referrals: See Reece MD [Primary Care Provider] - 3-5 Days if not improving Activity Restrictions/Additional Instructions: You can start the prednisone tomorrow, please use your inhalers as directed. Disposition Disposition: Home, Self Care Discharge Date/Time: 10/01/23 15:11
[2023-10-01 15:10] VITALS: BP 142/70; PULSE 71; RESP 18; TEMP 36.8; O2SAT 96
== END 2023-10-01 15:11 | disposition home or self-care (01) ==
PROVIDERS: Emergency Provider Emergency Medicine; PCP Family Medicine; Visit Provider Emergency Medicine
DX: J06.9 Acute upper respiratory infection, unspecified (principal); J44.1 Chronic obstructive pulmonary disease with (acute) exacerbation; Z79.4 Long term (current) use of insulin; F41.9 Anxiety disorder, unspecified; F32.A Depression, unspecified; I10 Essential (primary) hypertension; Z79.84 Long term (current) use of oral hypoglycemic drugs; Z87.891 Personal history of nicotine dependence; Z79.51 Long term (current) use of inhaled steroids; Z79.82 Long term (current) use of aspirin; Z79.899 Other long term (current) drug therapy
CPT/HCPCS: 71046; 94640; 99282

== ENCOUNTER 2024-03-22 08:41 | Emergency (ER) | payer BC, SELFPAY ==
[2024-03-22 08:42] VITALS: BP 175/96; PULSE 80; RESP 16; TEMP 36.1; O2SAT 96
--- NOTE | 2024-03-22 09:17 | EX.ED.DYSGE1 ---
HPI History of Present Illness Chief Complaint: Headache Detail of Chief Complaint: Headache, cough, myalgias, nausea Informant: patient and spouse/S.O. Onset/Context/Timing Onset: Days Context: Sudden Onset Timing: Intermittent Quality: Achy and head discomfort Location: Generalized and head Current Severity: Mild Maximum Severity: Moderate Worsened by: Nothing specific Relieved by: Nothing Associated Symptoms Associated Symptoms: Mild congestion Narrative Narrative: Patient is a 58-year-old woman. She has history of COVID many years ago, depression, type 2 diabetes on insulin who presents with a multitude of symptoms. Her blood sugar has been higher than normal the last couple of days. She did not check her blood sugar this morning. She denies fever or chills. She does complain of aches that are total body. She complains of head discomfort. She has intermittent photophobia denies sonophobia. She does endorse congestion and slight sore throat. She has a nonproductive cough. She does report nausea without vomiting or diarrhea. She denies chest discomfort of any type. There is no history of VTE. She denies leg pain, swelling discoloration. She denies rash. She denies joint swelling. She does endorse a sore that is painful under her lower plate. Prior similar symptoms: Yes (Diagnosed with COVID.) Recent Illness/Hospitalization: No PFSH PFSH Medical History Liver disease Loss of hearing Wears glasses Wears dentures Post-menopausal History of steroid therapy Insulin dependent diabetes mellitus Restless legs Back pain Dietary restriction Heartburn History of ulceration Colitis Former smoker CPAP (continuous positive airway pressure) dependence Shortness of breath on exertion Asthma Chronic cough Leg cramps History of edema History of echocardiogram History of stress test Cardiology follow-up encounter Disease of gingiva due to infection Incisional hernia Lung infection MDD (major depressive disorder) Allergies Contact with and (suspected) exposure to other viral communicable diseases URI (upper respiratory infection) Concussion History of tobacco use Encounter for screening for malignant neoplasm of lung in former smoker who quit in past 15 years with 30 pack year history or greater Trochanteric bursitis of left hip Right leg weakness Rectal bleed Hemorrhoids Fatigue Elevated transaminase level COPD (chronic obstructive pulmonary disease) Proteinuria Osteoarthritis Obesity Anxiety Hyperglycemia Hyponatremia Essential hypertension Migraines Depression Thrombocytopenia Home Medications ?Medication ?Instructions ?Recorded ?Last Taken ?Type albuterol sulfate 90 mcg/actuation 2 puff inhalation Q6H PRN PRN 07/29/20 10/01/23 History aerosol inhaler Shortness Of Breath aspirin 81 mg chewable tablet 81 mg PO DAILY@0800 07/29/20 10/01/23 History labetalol 100 mg tablet 100 mg PO BID 07/29/20 10/01/23 History lisinopril 40 mg tablet 40 mg PO DAILY 07/29/20 10/01/23 History metformin 1,000 mg tablet 1,000 mg PO BIDCM 07/29/20 10/01/23 History insulin regular hum U-500 conc 500 30 unit subcut LUNCH 02/16/22 10/01/23 History unit/mL(3 mL) subcut pen insulin regular hum U-500 conc 500 130 unit subcut QHS 02/16/22 10/01/23 History unit/mL(3 mL) subcut pen insulin regular hum U-500 conc 500 160 unit subcut BREAKFAST 02/16/22 10/01/23 History unit/mL(3 mL) subcut pen oxycodone-acetaminophen 5 mg-325 1 - 2 tab PO Q6H PRN pain 3 days 11/04/22 Unknown Rx mg tablet #14 tabs bupropion HCl 300 mg 24 hr tablet, 300 mg PO QAM 30 days #30 tabs 02/01/23 10/01/23 Rx extended release buspirone 10 mg tablet 10 mg PO BID 30 days #60 tabs 02/01/23 10/01/23 Rx hydroxyzine HCl 25 mg tablet 25 mg PO TID PRN anxiety #90 tabs 02/01/23 Unknown Rx prednisone 20 mg tablet 40 mg (2 x 20 mg) PO DAILY 10 days 10/01/23 Unknown Rx #19 tabs Allergy/AdvReac Type Severity Reaction Status Date / Time cat dander Allergy Severe Swelling Verified 03/22/24 08:43 Family History Sister TBI (traumatic brain injury) Colon cancer Brother Substance abuse Depression Seizures Father Hypertension Prostate cancer Heart disease Arthritis Myocardial infarction Kidney disease Mother Depression Heart disease Diabetes Asthma Osteoporosis Respiratory disease Surgical History History of incisional hernia repair History of tonsillectomy and adenoidectomy History of endometrial ablation H/O colonoscopy History of cholecystectomy Status post carpal tunnel release H/O cardiac catheterization Social History (Updated 03/22/24 @ 09:[address] Alfonso Covarrubias MD) household members: spouse Smoking Status: Former smoker alcohol intake: never substance use type: does not use ROS ROS ED Constitutional Constitutional ED: Denies chills, fever(s), subjective, sweats or weight loss Eyes Eyes: Reports other Details: Intermittent photophobia ; Denies blurry vision, change in vision or diplopia ENT ENT ED: Reports rhinorrhea and other Details: Sore under lower plate left side ; Denies ear pain or sore throat Cardiovascular Cardiovascular: Denies chest pain, orthopnea, palpitations, paroxysmal nocturnal dyspnea or racing heartbeat Respiratory/Chest Respiratory/Chest: Reports cough; Denies dyspnea, dyspnea on exertion, orthopnea, paroxysmal nocturnal dyspnea or sputum Gastrointestinal Gastrointestinal: Reports nausea; Denies abdominal pain, diarrhea or vomiting Genitourinary Genitourinary ED: Denies dysuria, hematuria or urinary frequency Musculoskeletal Musculoskeletal: Denies arthralgias, back pain or myalgias Integumentary Denies rash Neurologic Neurologic: Reports headache(s); Denies paresthesias or weakness Psychiatric Psychiatric: Denies anxiety or depression Hematologic/Lymphatic Hematologic/Lymphatic: Reports systems reviewed and no addt'l complaints, except as documented EXAM Physical Exam Const Vital Signs: 03/22/24 08:42 Temperature 96.9 F L Temperature Source Temporal Pulse Rate 80 Respiratory Rate 16 Blood Pressure 175/96 H Blood Pressure Mean 122 Pulse Ox 96 Oxygen Delivery Method Room Air Positive well nourished and well developed General Appearance ED: well developed and NAD; Negative for pallor HEENT Reports dry mucous membranes HEENT Narrative: Head is atraumatic, cephalic. There is no frontal maxillary sinus tenderness. Ears normal. TMs normal. Nares patent with slight clear drainage. Posterior pharynx out erythema or exudate. Patient has a ulcerative lesion junction of the gingiva and buccal mucosa left in the proximity of where tooth #17 and 18 would be. This may be a herpetic lesion versus canker. Mouth ED: Yes dry mucous membranes Mouth: dry mucous membranes Eyes PERRL and EOMs intact bilaterally General Eye ED: Negative for pale conjunctiva or scleral icterus Neck no lymphadenopathy, supple and no JVD Chest Wall inspection of chest normal and palpation of chest normal Resp normal respiratory effort and clear to auscultation bilaterally Cardio regular rate, regular rhythm, S1 normal heart sound, S2 normal heart sound and no murmurs GI normal to inspection, nondistended, normoactive bowel sounds, non-tender, non-distended and no masses; Negative for hepatosplenomegaly Back/Spine no CVA tenderness Extremity normal to inspection Extremity Narrative: There is no asymmetry, swelling, discoloration, leg vein distention, palpable cords or tenderness along the distribution of the deep venous system. General Extremety ED: Negative for edema General Extremity: Negative for edema Neuro oriented x3, CN's II-XII intact bilaterally and no sensory deficits noted Sensorium / Orientation: alert Psych mental status grossly normal Skin no rashes or lesions noted, no wounds and skin turgor normal General Skin Exam: elasticity normal; Negative for jaundice or pallor MDM MDM MDM Narrative Medical decision making narrative: Patient has viral-like symptoms. Will assess for COVID. Chest x-ray to assess for pneumonia. CBC to assess white count and H&H. BMP since she is diabetic to assess glucose, CO2 anion gap and electrolytes as well as renal function since clinically she appears slightly dehydrated. Lab Data Attestation: I reviewed the patient's lab results. Lab results narrative: Patient is neutropenic which is consistent with viral infection and may be due to COVID. Differential is unremarkable. Basic metabolic panel reveals slight elevation of creatinine at 1.07. Estimated GFR is 56. Glucose is elevated 190 with normal CO2 anion gap. Labs: Laboratory Results - last 24 hr 03/22/24 09:30 WBC 2.4 L RBC 4.32 Hgb 11.5 L Hct 37.0 MCV 85.6 MCH 26.6 L MCHC 31.1 L RDW Std Deviation 46.9 H RDW Coeff of Stu 15.1 H Plt Count 61 L MPV 11.0 Immature Gran % (Auto) 0.400 Neut % (Auto) 67.5 Lymph % (Auto) 20.7 Kershaw % (Auto) 11.0 H Eos % (Auto) 0.0 Baso % (Auto) 0.4 Absolute Neuts (auto) 1.6 L Absolute Lymphs (auto) 0.49 L Nucleated RBC % 0 Differential Comment COMMENT Diff Path Review May foll Platelet Estimate MOD DEC Sodium 139 Potassium 4.2 Chloride 104 Carbon Dioxide 28.0 Anion Gap 7 BUN 10 Creatinine 1.07 H Est GFR (MDRD) Af Amer 68 Est GFR (MDRD) Non-Af 56 L BUN/Creatinine Ratio 9.3 L Glucose 190 H Calcium 9.9 Radiography Chest X-Ray - ED: 2 View, Read by ED Physician (Independently reviewed and interpreted by me at [id number].), Unchanged, Heart, Mediastinum, Bony Structures, No Acute Disease and Chronic Changes Diagnostic Testing: Clinical Impression(s) from Imaging Studies Chest X-Ray 03/22/24 09:40 IMPRESSION: Stable mild increased linear markings at the lung bases slightly more prominent on the left side suggestive of mild scarring. Electronically Signed: Giovanni Amaral MD at 10:16 EDT , Treatment and Re-Evaluation :: Patient and spouse were informed of results. Patient has systemic viral infection. We discharged home with appropriate home-going structures. Her blood pressure is elevated. This will need to be rechecked in 1 to 2 weeks. She does not have history of hypertension. Discharge Plan Triage Chief Complaint: Headache ED Provider: Alfonso Covarrubias Dx/Rx/DC Orders Clinical Impression: Systemic viral illness, Cough, Neutropenia due to infection, Controlled type 2 diabetes mellitus with hyperglycemia, with long-term current use of insulin, Elevated blood-pressure reading, without diagnosis of hypertension Instructions: ED Hypertension, To Be Confirmed, ED Viral Syndrome (Adult) Prescriptions: No Action metformin 1,000 MG tablet 1,000 mg PO BIDCM aspirin 81 MG tablet,chewable 81 mg PO DAILY@0800 labetalol 100 MG tablet 100 mg PO BID albuterol sulfate 1 PUFF inhaler 2 puff INHALATION Q6H PRN PRN (Reason: Shortness Of Breath) lisinopril 40 MG tablet 40 mg PO DAILY insulin regular hum U-500 conc 500 unit/mL (3 mL) insulin pen 160 unit subcut BREAKFAST Protocol: 6. Sliding Scale Insulin Custom Condition: mg/dl range Dose/Route: Number of Units Protocol Text: Custom Sliding Scale Rx Instructions: 160 units before breakfast, 30 units before lunch, and 130 units before dinner insulin regular hum U-500 conc 500 unit/mL (3 mL) insulin pen 30 unit SUBCUT LUNCH Rx Instructions: 160 units before breakfast, 30 units before lunch, and 130 units before dinner insulin regular hum U-500 conc 500 unit/mL (3 mL) insulin pen 130 unit SUBCUT QHS Rx Instructions: 160 units before breakfast, 30 units before lunch, and 130 units before dinner oxycodone-acetaminophen 5-325 mg tablet 1 - 2 tab PO Q6H PRN (Reason: pain) 3 Days Qty: 14 0RF prednisone 20 mg tablet 40 mg PO DAILY 10 Days Qty: 19 0RF bupropion HCl 300 mg tablet extended release 24 hr 300 mg PO QAM 30 Days Qty: 30 2RF buspirone 10 mg tablet 10 mg PO BID 30 Days Qty: 60 1RF hydroxyzine HCl 25 mg tablet 25 mg PO TID PRN (Reason: anxiety) Qty: 90 2RF Primary Care Provider: See Reece Referrals: See Reece MD [Primary Care Provider] - 1 Week if not improving Print Language: Thai Disposition Disposition: Home, Self Care
[2024-03-22 09:39] LABS: Absolute Lymphocyte Count 0.49 X10^3/uL (0.83-4.51); Absolute Neutrophil Count 1.6 X10^3/uL (2.0-7.7); Basophil# 0.01 X10^3/uL; Basophil% 0.4 % (0-1); Hemoglobin 11.5 g/dL (12.0-15.0); Lymphocyte # 0.49 X10^3/ul (0.83-4.51); Lymphocyte % 20.7 % (19-41); Mean Corp Hgb Conc 31.1 g/dL (32-36); Mean Corpuscular Hgb 26.6 pg (27.0-32.0); Mean Corpuscular Volume 85.6 fL (81-99); Monocyte# 0.26 X10^3/uL; NRBC Flagged by Analyzer 0 % (0-5); Neutrophil % 67.5 % (47-70); POSITIVE COUNT YES; POSITIVE DIFFERENTIAL YES; Platelet Count 61 K/mm3 (150-450); RBC Distribution Width CV 15.1 % (11.6-14.6); RBC Distribution Width SD 46.9 fl (35.1-43.9); Red Blood Count 4.32 M/mm3 (4.2-5.4); White Blood Count 2.4 K/mm3 (4.4-11.0)
[2024-03-22 09:40] LABS: Differential Indicated SCAN CRITERIA MET
--- NOTE | 2024-03-22 09:40 | RAD_ITS ---
STUDY: X-RAY CHEST REASON FOR EXAM: Female, 58 years old. Cough, myalgias TECHNIQUE: PA and lateral views of the chest. COMPARISON: Comparison is made with prior study dated October 01, 2023. FINDINGS: Stable mild increased linear markings at the lung bases slightly more prominent at the left lung base suggestive of scarring. The lungs are clear and expanded. There is no demonstrated pleural abnormality. Normal size heart. Normal mediastinum and brennan. Normal visualized pulmonary arteries. There is atherosclerotic tortuosity of the aortic arch and descending thoracic aorta. There are diffuse degenerative changes of the visualized thoracic spine. Normal visualized ribs, clavicles, and shoulders. There is no demonstrated abnormality of the visualized soft tissue structures of the upper abdomen. RAD/Chest PA and Lateral IMPRESSION: Stable mild increased linear markings at the lung bases slightly more prominent on the left side suggestive of mild scarring. Electronically Signed: Giovanni Amaral MD at 10:16 EDT ,
[2024-03-22 09:51] LABS: Anion Gap 7 (5-15); BUN 10 mg/dL (7-18); BUN/Creat Ratio 9.3 RATIO (10-20); Calcium,Total 9.9 mg/dL (8.5-10.1); Chloride 104 mmol/L (98-107); Creatinine, Serum 1.07 mg/dL (0.55-1.02); EST Glomerular Filtration Rate 56 mL/min (>60); Est Glom Filt Rate - Afr Amer 68 mL/min (>60); Glucose 190 mg/dL (74-106); Potassium 4.2 mmol/L (3.5-5.1); Sodium Level 139 mmol/L (136-145)
[2024-03-22 10:07] LABS: Platelet Estimate MOD DEC (ADEQ)
[2024-03-22 10:41] VITALS: BP 137/89; PULSE 88; RESP 16; TEMP 36.2; O2SAT 99
[2024-03-24 08:57] LABS: Pathologist Review Reviewed
== END 2024-03-22 10:42 | disposition home or self-care (01) ==
PROVIDERS: Emergency Provider Emergency Medicine; PCP Family Medicine; Visit Provider Emergency Medicine
DX: B34.9 Viral infection, unspecified (principal); J44.9 Chronic obstructive pulmonary disease, unspecified; E11.65 Type 2 diabetes mellitus with hyperglycemia; Z79.4 Long term (current) use of insulin; R03.0 Elevated blood-pressure reading, without diagnosis of hypertension; R05.9 Cough, unspecified; Z87.891 Personal history of nicotine dependence; D70.9 Neutropenia, unspecified; I10 Essential (primary) hypertension; Z79.82 Long term (current) use of aspirin; Z79.899 Other long term (current) drug therapy; Z79.84 Long term (current) use of oral hypoglycemic drugs; F41.9 Anxiety disorder, unspecified; Z90.49 Acquired absence of other specified parts of digestive tract
CPT/HCPCS: 71046; 80048; 85025; 87631; 99284; A4216

== ENCOUNTER 2024-04-23 11:25 | Emergency (ER) | payer BC, SELFPAY ==
[2024-04-23] VITALS (9 sets, daily range): BP systolic 133–155; BP diastolic 76–89; PULSE 71–87; RESP 16–24; TEMP 36.3–37.2; O2SAT 95–96; BMI 45.4
--- NOTE | 2024-04-23 11:33 | EKG12_ITS ---
Test Reason : SOB Blood Pressure : / mmHG Vent. Rate : 077 BPM Atrial Rate : 077 BPM P-R Int : 192 ms QRS Dur : 098 ms QT Int : 404 ms P-R-T Axes : 054 -64 042 degrees QTc Int : 457 ms Normal sinus rhythm Left anterior fascicular block Abnormal ECG Confirmed by Jarad Cheney ([id number]), online editor AMADO KENNEDY ([id number]) on 04/25/2024 1:32:02 PM Referred By: Confirmed By:Jarad Cheney
--- NOTE | 2024-04-23 11:52 | EDS_ITS ---
HPI History of Present Illness Chief Complaint: Shortness of Breath Narrative Narrative: Chief complaint and HPI: Shortness of breath. 58-year-old female with history of COPD, depression, DM presents for evaluation of shortness of breath. Patient states she woke up 2 days ago with nasal congestion that resolved. She states that she then developed shortness of breath and chest tightness. She states the chest tightness worsens when she coughs. She states occasionally she gets a sh luigi pain in her back with coughing. She states her shortness of breath is not improving which is why she presents today. She denies any fever, chills, abdominal pain, nausea, vomiting, dysuria. She denies any sick contacts that she knows of. Patient states she has an albuterol inhaler as needed. She denies any DuoNebs at home or a maintenance inhaler. She has never seen a butcher or smallgoods maker. She is a previous tobacco abuser. Denies bilateral lower extremity swelling or pain. Review of systems: See HPI Medications: As listed on the chart Allergies: As listed on the chart PFSH: Per chart Vital signs: As listed on the chart. Reviewed. Physical exam: Gen: A&O x3, NAD Head: Normocephalic, atraumatic Eyes: No sclera icterus, conjunctiva clear ENT: Moist mucous membranes Neck: Trachea midline, No JVD CV: RRR, no murmurs, no peripheral edema Resp: Large body habitus with diminished breath sounds, mildly coarse throughout, intermittent expiratory wheeze, + dry cough GI: Abd soft, non-distended, non-tender, no r/r/g Musc: Full ROM, no deformity Skin: Warm, dry Neuro: Alert, oriented, grossly intact, sensation intact Psych: Cooperative, appropriate mood and affect [facility] Medical History Liver disease Loss of hearing Wears glasses Wears dentures Post-menopausal History of steroid therapy Insulin dependent diabetes mellitus Restless legs Back pain Dietary restriction Heartburn History of ulceration Colitis Former smoker CPAP (continuous positive airway pressure) dependence Shortness of breath on exertion Asthma Chronic cough Leg cramps History of edema History of echocardiogram History of stress test Cardiology follow-up encounter Disease of gingiva due to infection Incisional hernia Lung infection MDD (major depressive disorder) Allergies Contact with and (suspected) exposure to other viral communicable diseases URI (upper respiratory infection) Concussion History of tobacco use Encounter for screening for malignant neoplasm of lung in former smoker who quit in past 15 years with 30 pack year history or greater Trochanteric bursitis of left hip Right leg weakness Rectal bleed Hemorrhoids Fatigue Elevated transaminase level COPD (chronic obstructive pulmonary disease) Proteinuria Osteoarthritis Obesity Anxiety Hyperglycemia Hyponatremia Essential hypertension Migraines Depression Thrombocytopenia Home Medications ?Medication ?Instructions ?Recorded ?Last Taken ?Type albuterol sulfate 90 mcg/actuation 2 puff inhalation Q6H PRN PRN 07/29/20 10/01/23 History aerosol inhaler Shortness Of Breath aspirin 81 mg chewable tablet 81 mg PO DAILY@0800 07/29/20 10/01/23 History labetalol 100 mg tablet 100 mg PO BID 07/29/20 10/01/23 History lisinopril 40 mg tablet 40 mg PO DAILY 07/29/20 10/01/23 History metformin 1,000 mg tablet 1,000 mg PO BIDCM 07/29/20 10/01/23 History insulin regular hum U-500 conc 500 30 unit subcut LUNCH 02/16/22 10/01/23 History unit/mL(3 mL) subcut pen insulin regular hum U-500 conc 500 130 unit subcut QHS 02/16/22 10/01/23 History unit/mL(3 mL) subcut pen insulin regular hum U-500 conc 500 160 unit subcut BREAKFAST 02/16/22 10/01/23 History unit/mL(3 mL) subcut pen oxycodone-acetaminophen 5 mg-325 1 - 2 tab PO Q6H PRN pain 3 days 11/04/22 Unknown Rx mg tablet #14 tabs bupropion HCl 300 mg 24 hr tablet, 300 mg PO QAM 30 days #30 tabs 02/01/23 10/01/23 Rx extended release buspirone 10 mg tablet 10 mg PO BID 30 days #60 tabs 02/01/23 10/01/23 Rx hydroxyzine HCl 25 mg tablet 25 mg PO TID PRN anxiety #90 tabs 02/01/23 Unknown Rx prednisone 20 mg tablet 40 mg (2 x 20 mg) PO DAILY 10 days 10/01/23 Unknown Rx #19 tabs albuterol sulfate 90 mcg/actuation 2 puff inhalation Q4H PRN PRN 04/23/24 Unknown Rx aerosol inhaler (Ventolin HFA) Wheezing ##1 prednisone 20 mg tablet 40 mg (2 x 20 mg) PO DAILY 5 days 04/23/24 Unknown Rx #10 tabs Allergy/AdvReac Type Severity Reaction Status Date / Time cat dander Allergy Severe Swelling Verified 03/22/24 08:43 Family History Sister TBI (traumatic brain injury) Colon cancer Brother Substance abuse Depression Seizures Father Hypertension Prostate cancer Heart disease Arthritis Myocardial infarction Kidney disease Mother Depression Heart disease Diabetes Asthma Osteoporosis Respiratory disease Surgical History History of incisional hernia repair History of tonsillectomy and adenoidectomy History of endometrial ablation H/O colonoscopy History of cholecystectomy Status post carpal tunnel release H/O cardiac catheterization Social History (Updated 03/22/24 @ 09:[address] Alfonso Covarrubias MD) household members: spouse Smoking Status: Former smoker alcohol intake: never substance use type: does not use EXAM Physical Exam Const Vital Signs: 04/23/24 11:26 04/23/24 11:42 04/23/24 11:47 Temperature 98.9 F Temperature Source Oral Pulse Rate 74 72 Respiratory Rate 20 H 16 Respiratory Effort Short of Breath Respiratory Depth Normal Respiratory Pattern Normal Blood Pressure 155/89 H 139/82 H Blood Pressure Mean 111 101 Pulse Ox 95 95 Oxygen Delivery Method Room Air Room Air Room Air 04/23/24 12:15 04/23/24 12:26 04/23/24 13:09 Temperature 97.4 F L Temperature Source Oral Pulse Rate 73 71 71 Respiratory Rate 20 H 22 H 23 H Respiratory Effort Respiratory Depth Respiratory Pattern Normal Blood Pressure 133/78 H 142/83 H Blood Pressure Mean 96 102 Pulse Ox 95 95 Oxygen Delivery Method Room Air 04/23/24 14:00 04/23/24 15:00 04/23/24 15:35 Temperature 97.9 F Temperature Source Pulse Rate 74 87 87 Respiratory Rate 24 H 21 H 21 H Respiratory Effort Respiratory Depth Respiratory Pattern Blood Pressure 134/76 H 147/89 H 147/89 H Blood Pressure Mean 95 108 108 Pulse Ox 96 95 95 Oxygen Delivery Method Room Air Room Air MDM MDM MDM Narrative Medical decision making narrative: 58-year-old female with history of COPD presents for evaluation of shortness of breath. See physical exam findings. Differential diagnosis includes but is not limited to COPD exacerbation, pneumonia, viral illness. Suspect less likely ACS. DuoNebs x 3, Solu-Medrol ordered for symptoms. Respiratory/cardiac workup ordered. CBC shows baseline pancytopenia. BMP shows baseline renal insufficiency. COVID, flu, RSV negative. BNP unable to resolve secondary to machine in the hospital being broken. Troponin negative x 2. Chest x-ray w ithout pneumonia. On reexamination patient has improvement in her breath sounds. She is moving more air and wheezing has improved. Patient states she feels less short of breath. This point in time, I suspect patient's symptoms are secondary to a COPD exacerbation. Patient has albuterol inhaler at home but is requesting a refill, this was ordered. Patient will be sent home on a 5-day course of prednisone. She was educated that thiscan increase her glucose levels and that she needs to check her sugars frequently at home. She confirmed understanding of the plan. Return precautions explained. Patient stable to discharge home. Follow-up with PCP. EKG: Interpreted by me/EM physician: EKG shows normal sinus rhythm without any acute ischemic changes. Patient does have a left anterior fascicular block. Heart rate 77. This is similar to previous EKG in October 2022 Diagnostic: Interpreted by me/EM physician: No pneumonia, effusion, pneumothorax, cardiomegaly. Patient does have some atelectasis. Impression: 1. COPD exacerbation 2. History of COPD 3. Pancytopenia 4. Renal insufficiency Lab Data Labs: Laboratory Results - last 24 hr 04/23/24 04/23/24 12:15 14:10 WBC 2.0 L RBC 4.23 Hgb 11.2 L Hct 35.6 L MCV 84.2 MCH 26.5 L MCHC 31.5 L RDW Std Deviation 45.2 H RDW Coeff of Stu 14.8 H Plt Count 58 L MPV 10.7 Immature Gran % (Auto) 0.000 Neut % (Auto) 71.8 H Lymph % (Auto) 17.3 L Clinch % (Auto) 10.4 H Eos % (Auto) 0.0 Baso % (Auto) 0.5 Absolute Neuts (auto) 1.5 L Absolute Lymphs (auto) 0.35 L Nucleated RBC % 0 Diff Path Review May foll Platelet Estimate MKD DEC Sodium 134 L Potassium 4.0 Chloride 100 Carbon Dioxide 28.0 Anion Gap 6 BUN 10 Creatinine 1.06 H Estim Creat Clear Calc 77.03 Est GFR (MDRD) Af Amer 69 Est GFR (MDRD) Non-Af 57 L BUN/Creatinine Ratio 9.4 L Glucose 416 H Calcium 9.4 Troponin I High Sens 15 13 Radiography Diagnostic Testing: Clinical Impression(s) from Imaging Studies Chest X-Ray 04/23/24 11:59 IMPRESSION: Poor inspiration with some bibasilar atelectasis. Electronically Signed: Avtar Lezama MD at 14:00 EDT , Discharge Plan Triage Chief Complaint: Shortness of Breath ED Provider: Rc Freeman Dx/Rx/DC Orders Clinical Impression: COPD exacerbation Instructions: COPD: Wheezing and Chest Tightness Prescriptions: New albuterol sulfate [Ventolin HFA] 90 mcg/actuation HFA aerosol inhaler 2 puff inhalation Q4H PRN PRN (Reason: Wheezing) Qty: 1 0RF prednisone 20 mg tablet 40 mg PO DAILY 5 Days Qty: 10 0RF No Action metformin 1,000 MG tablet 1,000 mg PO BIDCM aspirin 81 MG tablet,chewable 81 mg PO DAILY@0800 labetalol 100 MG tablet 100 mg PO BID albuterol sulfate 1 PUFF inhaler 2 puff INHALATION Q6H PRN PRN (Reason: Shortness Of Breath) lisinopril 40 MG tablet 40 mg PO DAILY insulin regular hum U-500 conc 500 unit/mL (3 mL) insulin pen 160 unit subcut BREAKFAST Protocol: 6. Sliding Scale Insulin Custom Condition: mg/dl range Dose/Route: Number of Units Protocol Text: Custom Sliding Scale Rx Instructions: 160 units before breakfast, 30 units before lunch, and 130 units before dinner insulin regular hum U-500 conc 500 unit/mL (3 mL) insulin pen 30 unit SUBCUT LUNCH Rx Instructions: 160 units before breakfast, 30 units before lunch, and 130 units before dinner insulin regular hum U-500 conc 500 unit/mL (3 mL) insulin pen 130 unit SUBCUT QHS Rx Instructions: 160 units before breakfast, 30 units before lunch, and 130 units before dinner oxycodone-acetaminophen 5-325 mg tablet 1 - 2 tab PO Q6H PRN (Reason: pain) 3 Days Qty: 14 0RF prednisone 20 mg tablet 40 mg PO DAILY 10 Days Qty: 19 0RF bupropion HCl 300 mg tablet extended release 24 hr 300 mg PO QAM 30 Days Qty: 30 2RF buspirone 10 mg tablet 10 mg PO BID 30 Days Qty: 60 1RF hydroxyzine HCl 25 mg tablet 25 mg PO TID PRN (Reason: anxiety) Qty: 90 2RF Primary Care Provider: See Reece Referrals: See Reece MD [Primary Care Provider] - 3-5 Days Activity Restrictions/Additional Instructions: Prednisone can increase your sugar levels. Make sure you are checking them frequently at home. Follow-up with your PCP. Return if symptoms worsen or change. Print Language: Maori Disposition Disposition: Home, Self Care Discharge Date/Time: 04/23/24 15:36
--- NOTE | 2024-04-23 11:59 | RAD_ITS ---
STUDY: X-RAY CHEST REASON FOR EXAM: Female, 58 years old. Shortness of breath TECHNIQUE: PA and lateral views of the chest. COMPARISON: 03/22/2024 FINDINGS: Poor inspiration with some bibasilar atelectasis. There is no demonstrated pleural abnormality. Normal size heart. Normal mediastinum and brennan. Normal visualized pulmonary arteries. Normal visualized aortic arch and descending thoracic aorta. Normal visualized thoracic spine. Normal visualized ribs, clavicles, and shoulders. There is no demonstrated abnormality of the visualized soft tissue structures of the upper abdomen. RAD/Chest PA and Lateral IMPRESSION: Poor inspiration with some bibasilar atelectasis. Electronically Signed: Avtar Lezama MD at 14:00 EDT ,
[2024-04-23] MEDS: Ipratropium/Albuterol Sulfate 3 ML AMPUL.NEB 9 ML INHALATION (12:15)
[2024-04-23] MEDS: Aspirin 81 MG TAB.CHEW 324 MG PO (12:17)
[2024-04-23] MEDS: MethylPREDNISolone 125 MG/2 ML Vial IV (12:17)
[2024-04-23 12:27] LABS: Absolute Lymphocyte Count 0.35 X10^3/uL (0.83-4.51); Absolute Neutrophil Count 1.5 X10^3/uL (2.0-7.7); Basophil# 0.01 X10^3/uL; Basophil% 0.5 % (0-1); Hematocrit 35.6 % (37-47); Hemoglobin 11.2 g/dL (12.0-15.0); Lymphocyte # 0.35 X10^3/ul (0.83-4.51); Lymphocyte % 17.3 % (19-41); Mean Corp Hgb Conc 31.5 g/dL (32-36); Mean Corpuscular Hgb 26.5 pg (27.0-32.0); Mean Corpuscular Volume 84.2 fL (81-99); Mean Platelet Vol. 10.7 fl (6.2-12.0); Monocyte# 0.21 X10^3/uL; Monocyte% 10.4 % (0-10); NRBC Flagged by Analyzer 0 % (0-5); Neutrophil # 1.45 X10^3/uL (2.7-7.7); Neutrophil % 71.8 % (47-70); POSITIVE COUNT YES; POSITIVE DIFFERENTIAL YES; Platelet Count 58 K/mm3 (150-450); RBC Distribution Width CV 14.8 % (11.6-14.6); RBC Distribution Width SD 45.2 fl (35.1-43.9); Red Blood Count 4.23 M/mm3 (4.2-5.4)
[2024-04-23 12:29] LABS: Differential Indicated SCAN CRITERIA MET
[2024-04-23 12:42] LABS: Anion Gap 6 (5-15); BUN 10 mg/dL (7-18); BUN/Creat Ratio 9.4 RATIO (10-20); Calcium,Total 9.4 mg/dL (8.5-10.1); Chloride 100 mmol/L (98-107); Creatinine, Serum 1.06 mg/dL (0.55-1.02); EST Glomerular Filtration Rate 57 mL/min (>60); Est Glom Filt Rate - Afr Amer 69 mL/min (>60); Estimated Creatinine Clearance 77.03 ml/min; Glucose 416 mg/dL (74-106); Sodium Level 134 mmol/L (136-145); Troponin-I HS (w/2H Reflex) 15 pg/mL (3.0-54.0)
[2024-04-23 12:55] LABS: Platelet Estimate MKD DEC (ADEQ)
[2024-04-23 14:19] LABS: Reflex Troponin-HS? (from REC) Y
[2024-04-23 14:57] LABS: Troponin-I HS 13 pg/mL (3.0-54.0)
[2024-04-24 13:40] LABS: Pathologist Review Reviewed
== END 2024-04-23 15:36 | disposition home or self-care (01) ==
PROVIDERS: Emergency Provider Surgery; PCP Family Medicine; Visit Provider Surgery
DX: J44.1 Chronic obstructive pulmonary disease with (acute) exacerbation (principal); D61.818 Other pancytopenia; E11.9 Type 2 diabetes mellitus without complications; Z79.4 Long term (current) use of insulin; J98.11 Atelectasis; I44.4 Left anterior fascicular block; I10 Essential (primary) hypertension; N28.9 Disorder of kidney and ureter, unspecified; F32.9 Major depressive disorder, single episode, unspecified; Z90.49 Acquired absence of other specified parts of digestive tract; Z79.84 Long term (current) use of oral hypoglycemic drugs; Z79.52 Long term (current) use of systemic steroids; Z79.82 Long term (current) use of aspirin; Z79.899 Other long term (current) drug therapy; Z87.891 Personal history of nicotine dependence
CPT/HCPCS: 71046; 80048; 83880; 84484; 85025; 87631; 93005; 94640; 96374; 99285; A4216

== ENCOUNTER 2024-09-02 13:33 | Emergency (ER) | payer BC, SELFPAY ==
[2024-09-02 13:33] VITALS: BP 149/90; PULSE 81; RESP 16; TEMP 36.1; O2SAT 98; BMI 45.2
--- NOTE | 2024-09-02 13:46 | EDS_ITS ---
HPI History of Present Illness Chief Complaint: Back Narrative Narrative: 59-year-old female past medical history of diabetes presents with pain in her right hip and in her right low back to midline that she has had for the last few days. No recent trauma or falls. She was told a long time ago that she has arthritis in her right hip. She now has pain with movement of her right lower extremity. She states that as she is walking sometimes she can feel her right hip catch. It causes her to stumble, but she has not fallen on it recently. She has been taking Tylenol with mild relief of her symptoms. She denies any fevers or chills, she is nauseated from the pain but no vomiting. No dysuria or hematuria. No problems with bowel movements. No red flag signs for cauda equina including no saddle anesthesia, no loss of bowel or bladder. [facility] Medical History Liver disease Loss of hearing Wears glasses Wears dentures Post-menopausal History of steroid therapy Insulin dependent diabetes mellitus Restless legs Back pain Dietary restriction Heartburn History of ulceration Colitis Former smoker CPAP (continuous positive airway pressure) dependence Shortness of breath on exertion Asthma Chronic cough Leg cramps History of edema History of echocardiogram History of stress test Cardiology follow-up encounter Disease of gingiva due to infection Incisional hernia Lung infection MDD (major depressive disorder) Allergies Contact with and (suspected) exposure to other viral communicable diseases URI (upper respiratory infection) Concussion History of tobacco use Encounter for screening for malignant neoplasm of lung in former smoker who quit in past 15 years with 30 pack year history or greater Trochanteric bursitis of left hip Right leg weakness Rectal bleed Hemorrhoids Fatigue Elevated transaminase level COPD (chronic obstructive pulmonary disease) Proteinuria Osteoarthritis Obesity Anxiety Hyperglycemia Hyponatremia Essential hypertension Migraines Depression Thrombocytopenia Home Medications ?Medication ?Instructions ?Recorded ?Last Taken ?Type albuterol sulfate 90 mcg/actuation 2 puff inhalation Q 6H PRN PRN 07/29/20 10/01/23 History aerosol inhaler Shortness Of Breath aspirin 81 mg chewable tablet 81 mg PO DAILY@0800 07/1210/01/23 History labetalol 100 mg tablet 100 mg PO BID 07/29/2009/30 History lisinopril 40 mg tablet 40 mg PO DAILY 07/29/2009/10 History metformin 1,000 mg tablet 1,000 mg PO BIDCM 07/29/20 0 10/01/23 History insulin regular hum U-500 conc 500 30 unit subcut LUNC H 02/16/22 10/01/23 History unit/mL(3 mL) subcut pen insulin regular hum U-500 conc 500 130 unit subcut QHS 02/16/22 10/01/23 History unit/mL(3 mL) subcut pen insulin regular hum U-500 conc 500 160 unit subcut RUBEN AKFAST 02/16/22 10/01/23 History unit/mL(3 mL) subcut pen oxycodone-acetaminophen 5 mg-325 1 - 2 tab PO Q6H PRN pain 3 days 11/04/22 Unknown Rx mg tablet #14 tabs bupropion HCl 300 mg 24 hr tablet, 300 mg PO QAM 30 da ys #30 tabs 02/01/23 10/01/23 Rx extended release buspirone 10 mg tablet 10 mg PO BID 30 days #60 tab s 02/01/23 10/01/23 Rx hydroxyzine HCl 25 mg tablet 25 mg PO TID PRN anxiety #90 tabs 02/01/23 Unknown Rx prednisone 20 mg tablet 40 mg (2 x 20 mg) PO DAILY 1 0 days 10/01/23 Unknown Rx #19 tabs albuterol sulfate 90 mcg/actuation 2 puff inhalation Q 4H PRN PRN 04/23/24 Unknown Rx aerosol inhaler (Ventolin HFA) Wheezing ##1 prednisone 20 mg tablet 40 mg (2 x 20 mg) PO DAILY 5 days 04/23/24 Unknown Rx #10 tabs hydrocodone-acetaminophen 5-325mg 1 tab PO Q6H PRN PRN Pain 3 days 09/02/24 Unknown Rx 5mg-325mg #10 TABLETS Allergy/AdvReac Type Severity Reaction Status Date / Time cat dander Allergy Severe Swelling Verified 09/02/24 13:36 Family History Sister TBI (traumatic brain injury) Colon cancer Brother Substance abuse Depression Seizures Father Hypertension Prostate cancer Heart disease Arthritis Myocardial infarction Kidney disease Mother Depression Heart disease Diabetes Asthma Osteoporosis Respiratory disease Surgical History History of incisional hernia repair History of tonsillectomy and adenoidectomy History of endometrial ablation H/O colonoscopy History of cholecystectomy Status post carpal tunnel release H/O cardiac catheterization Social History household members: spouse Smoking Status: Former smoker alcohol intake: never substance use type: does not use ROS ROS ED ROS Narrative Constitutional: No fever, no chills. HEENT: No sore throat. No neck pain. Cardiovascular: No chest pain. No palpitations. No pedal edema. Respiratory: No cough, no shortness of breath. Abdominal: No abdominal pain. Positive nausea. No vomiting. Genitourinary: No dysuria. No hematuria. Musculoskeletal: No myalgias. Positive right hip pain worse with movement. Positive low back pain, more on the right. Neurologic: No headaches. No dizziness. No lightheadedness. No loss of bowel or bladder, no saddle anesthesia. EXAM Physical Exam Narrative Exam Narrative: Afebrile. Vital signs noted. Nontoxic-appearing. Cardiovascular examination reveals a regular rate and rhythm. Lungs are clear to auscultation bilaterally. Abdomen is soft and nontender without guarding or rebound. Positive bowel sounds. Pelvis is stable. She has full range of motion of her right hip including flexion extension. Straight leg raising is negative bilaterally although she feels tightness in her right back with movement of her right leg. No pain with logrolling of right femur. She appears neurovascularly intact to the right lower extremity. Palpable dorsalis pedis pulse. Inspection of the back reveals no evidence of erythema or crepitance. No vertebral point tenderness or step-off. She does have mild tenderness to palpation in the right sacroiliac area and perhaps in the sciatic notch. Const Vital Signs: 09/02/24 13:33 Temperature 97 F L Temperature Source Temporal Pulse Rate 81 Respiratory Rate 16 Blood Pressure 149/90 H Blood Pressure Mean 109 Pulse Ox 98 Oxygen Delivery Method Room Air MDM MDM MDM Narrative Medical decision making narrative: Differential diagnosis includes but not limited to lumbosacral strain versus lumbar radiculopathy versus arthritis of the hip versus occult fracture. I have low clinical suspicion for dislocation of the right hip. I do not think she has cauda equina either as there are no red flag signs and her history and physical does not support this. Images were obtained of the lumbar spine and pelvis with right hip to look for acute fracture. She was given a [place] tablet here for analgesia. Upon repeat examination at approximately 1430, she is feeling mild improvement of her pain. On my independent interpretation of her right hip and pelvis x-ray there is no evidence of acute fracture or dislocation but she does have DJD changes noted. I reviewed the radiology report which confirms my independent interpretation. Additionally, on my independent interpretation of the x-rays of her lumbar spine there is no compression fracture. I reviewed the radiology report which confirms my independent interpretation and also comments on degenerative changes. At this point in time, as she has not had narcotic medication recently for her back and hip pain she was given a prescription for 10 [place] tablets. She will follow-up with her primary care provider Dr. Reece, and was also referred to the orthopedic doctor Chevy regarding her hip arthriti s. Return instructions reviewed. Disposition is discharged home in stable condition. History & Record Review Discussion w/independent historian: Patient and Family Radiography Diagnostic Testing: Clinical Impression(s) from Imaging Studies Hip/Pelvis X-Ray 09/02/24 14:00 IMPRESSION: Degenerative changes with no acute osseous abnormality in the right hip Reading Location: [facility] Lumbar Spine X-Ray 09/02/24 14:00 IMPRESSION: Mild degenerative changes with no acute osseous abnormality in the lumbar spine Reading Location: [facility] Discharge Plan Triage Chief Complaint: Back ED Provider: Lino Elias Dx/Rx/DC Orders Clinical Impression: Osteoarthritis of right hip, Back pain, Degenerative joint disease (DJD) of lumbar spine Instructions: Osteoarthritis: Coping with Pain, ED Arthralgia, ED Back Pain (Acute or Chronic), ED Osteoarthritis Prescriptions: New hydrocodone-acetaminophen 5-325 mg tablet 1 tab PO Q6H PRN PRN (Reason: Pain) 3 Days Qty: 10 0RF No Action metformin 1,000 MG tablet 1,000 mg PO BIDCM aspirin 81 MG tablet,chewable 81 mg PO DAILY@0800 labetalol 100 MG tablet 100 mg PO BID albuterol sulfate 1 PUFF inhaler 2 puff INHALATION Q6H PRN PRN (Reason: Shortness Of Breath) lisinopril 40 MG tablet 40 mg PO DAILY insulin regular hum U-500 conc 500 unit/mL (3 mL) insulin pen 160 unit subcut BREAKFAST Protocol: 6. Sliding Scale Insulin Custom Condition: mg/dl range Dose/Route: Number of Units Protocol Text: Custom Sliding Scale Rx Instructions: 160 units before breakfast, 30 units before lunch, and 130 units before dinner insulin regular hum U-500 conc 500 unit/mL (3 mL) insulin pen 30 unit SUBCUT LUNCH Rx Instructions: 160 units before breakfast, 30 units before lunch, and 130 units before dinner insulin regular hum U-500 conc 500 unit/mL (3 mL) insulin pen 130 unit SUBCUT QHS Rx Instructions: 160 units before breakfast, 30 units before lunch, and 130 units before dinner oxycodone-acetaminophen 5-325 mg tablet 1 - 2 tab PO Q6H PRN (Reason: pain) 3 Days Qty: 14 0RF prednisone 20 mg tablet 40 mg PO DAILY 10 Days Qty: 19 0RF albuterol sulfate [Ventolin HFA] 90 mcg/actuation HFA aerosol inhaler 2 puff inhalation Q4H PRN PRN (Reason: Wheezing) Qty: 1 0RF prednisone 20 mg tablet 40 mg PO DAILY 5 Days Qty: 10 0RF bupropion HCl 300 mg tablet extended release 24 hr 300 mg PO QAM 30 Days Qty: 30 2RF buspirone 10 mg tablet 10 mg PO BID 30 Days Qty: 60 1RF hydroxyzine HCl 25 mg tablet 25 mg PO TID PRN (Reason: anxiety) Qty: 90 2RF Primary Care Provider: See Reece Referrals: See Reece MD [Primary Care Provider] - 5-7 Days Robles Reece MD [Med Staff - Active Staff] - As soon as possible Activity Restrictions/Additional Instructions: Return with increased pain, new or worsening symptoms. Otherwise, follow-up with your primary care provider for further narcotic pain medication, and be seen by orthopedic surgeon regarding right hip osteoarthritis. Print Language: Yakut Disposition Disposition: Home, Self Care
[2024-09-02] MEDS: HYDROcodone Bitartrate/Apap 5/325 Tablet PO (13:53)
--- NOTE | 2024-09-02 14:00 | RAD_ITS ---
PROCEDURE: LUMBAR SPINE 2 OR 3 VIEWS REASON FOR EXAM: Pain TECHNIQUE: 2 view(s) of the lumbar spine COMPARISON: None. FINDINGS: Normal lumbar vertebral heights. No evidence of fracture. Disc space heights are preserved. Mild spondylosis Normal alignment. No spondylolisthesis. Mild facet arthropathy RAD/Lumbar Spine 2 or 3 Views IMPRESSION: Mild degenerative changes with no acute osseous abnormality in the lumbar spine Reading Location: [facility]
--- NOTE | 2024-09-02 14:00 | RAD_ITS ---
PROCEDURE: HIP, UNI W/ PELVIS 2-3 VIEWS REASON FOR EXAM: Pain TECHNIQUE: 2 views of right hip. AP Pelvis. COMPARISON: None. FINDINGS: The bony pelvic ring appears intact. SI joints are unremarkable. RIGHT HIP: No fracture. No suspicious bone lesion. Normal alignment. Moderate joint space narrowing Soft tissues are unremarkable. RAD/HIP, UNI W/ Pelvis 2-3 Views IMPRESSION: Degenerative changes with no acute osseous abnormality in the right hip Reading Location: [facility]
== END 2024-09-02 14:44 | disposition home or self-care (01) ==
PROVIDERS: Emergency Provider Emergency Medicine; PCP Family Medicine; Referring Provider Emergency Medicine; Visit Provider Emergency Medicine
DX: M16.11 Unilateral primary osteoarthritis, right hip (principal); J44.9 Chronic obstructive pulmonary disease, unspecified; E11.9 Type 2 diabetes mellitus without complications; M47.816 Spondylosis without myelopathy or radiculopathy, lumbar region; Z87.891 Personal history of nicotine dependence; I10 Essential (primary) hypertension
CPT/HCPCS: 72100; 73502; 99282

== ENCOUNTER → 2024-10-31 | Outpatient (CLI) | payer BC, SELFPAY ==
[2024-10-31 16:46] LABS: Absolute Lymphocyte Count 0.54 X10^3/uL (0.83-4.51); Absolute Neutrophil Count 2.1 X10^3/uL (2.0-7.7); Basophil# 0.01 X10^3/uL; Basophil% 0.3 % (0-1); Hematocrit 36.1 % (37-47); Hemoglobin 11.9 g/dL (12.0-15.0); Lymphocyte # 0.54 X10^3/ul (0.83-4.51); Lymphocyte % 17.7 % (19-41); Mean Corpuscular Hgb 27.5 pg (27.0-32.0); Mean Corpuscular Volume 83.4 fL (81-99); Monocyte# 0.34 X10^3/uL; Monocyte% 11.1 % (0-10); NRBC Flagged by Analyzer 0 % (0-5); Neutrophil # 2.11 X10^3/uL (2.7-7.7); Neutrophil % 69.3 % (47-70); POSITIVE COUNT YES; POSITIVE DIFFERENTIAL YES; Platelet Count 57 K/mm3 (150-450); RBC Distribution Width CV 15.5 % (11.6-14.6); RBC Distribution Width SD 46.7 fl (35.1-43.9); Red Blood Count 4.33 M/mm3 (4.2-5.4); White Blood Count 3.1 K/mm3 (4.4-11.0)
[2024-10-31 17:01] LABS: International Normalized Ratio 1.1; Prothrombin Time (Protime)PT. 14.1 SECONDS (11.7-14.9)
[2024-10-31 18:00] LABS: AST(SGOT) 25 U/L (<=31); Alanine Aminotransfer ALT/SGPT 21 U/L (<=34); Albumin, Serum 4.1 g/dL (3.5-5.0); Alkaline Phosphatase 129 U/L (35-104); Anion Gap 12 (5-15); BUN 19 mg/dL (4-19); BUN/Creat Ratio 15.2 RATIO (10-20); Bilirubin, Direct 0.44 mg/dL (0.00-0.30); Calcium,Total 9.5 mg/dL (7.6-11.0); Chloride 100 mmol/L (98-108); Creatinine, Serum 1.23 mg/dL (0.70-1.20); EST Glomerular Filtration Rate 51 (>60); Ferritin 49 ng/mL (22-378); Globulin 3.3 g/dL (2.2-4.2); Glucose 161 mg/dL (70-99); Hepatitis B Surface Antibody REAC; Hepatitis B Surface Antigen Nonreactive (Nonreactive); Hepatitis C Antibody Nonreactive (Nonreactive); Iron 63 ug/dL (50-170); Iron Binding Capacity,Total 359 ug/dL (250-450); Iron Binding Capacity,Unsat 296 ug/dL (228-428); Potassium 4.3 mmol/L (3.3-5.1); Protein, Total 7.4 g/dL (5.9-8.4); Sodium Level 135 mmol/L (133-145); Total Bilirubin 1.02 mg/dL (0.00-1.30); Vitamin B12 327 pg/mL (180-914)
[2024-11-02 14:08] LABS: AFP, Tumor Marker 2.3 ng/mL (0.0-9.2); ANTINUCLEAR ANTIBODIES DIRECT Negative (Negative); Anti-Mitochondrial AB <20.0 Units (0.0-20.0); Anti-Smooth Muscle ABS 18 Units (0-19); Hepatitis A AB, Total Positive (Negative); Hepatitis B Core Ab Total Negative (Negative)
== END | disposition home or self-care (01) ==
LOC: LAB 16:13
PROVIDERS: PCP Family Medicine; Referring Provider Nurse Practitioner Acute Care; Visit Provider Nurse Practitioner Acute Care
DX: D61.818 Other pancytopenia (principal); K74.60 Unspecified cirrhosis of liver; R10.9 Unspecified abdominal pain
CPT/HCPCS: 36415; 80048; 80076; 82105; 82607; 82728; 83516; 83540; 83550; 85025; 85610; 86038; 86225; 86235; 86704; 86706; 86708; 86803; 87340

== ENCOUNTER 2024-11-06 17:13 | Outpatient (RCR) | payer BC, SELFPAY ==
--- NOTE | 2024-11-06 18:47 | HP.PTEVAL_ITS ---
Patient's Visit Information Visit Information Visit Information: JESE CAREY is a 59 year old F referred to Physical Therapy by Dr. Robles Reece MD with a diagnosis of LOW BACK PAIN AND R HIP OA. Date of Evaluation: 11/06/24 Physical Therapist: Melany Wright PT, Cert MDT Visit Plan Frequency: 2x /Week Duration: 4-6 Weeks Plan: *GAIT TRAINING WITH CANE NEEDED FOR SAFETY ON LEVEL SURFACES AND STEPS IF PATIENT OBTAINS CANE* AQUATIC THERAPY FOR LOW BACK AND R HIP PAIN RELIEF, POSTURE CORRECTION/STRENGTHENING, INSTRUCTION IN APPROPRIATE BODY MECHANICS AND ACTIVITY MODIFICATIONS. DLS STARTING WITH A NEUTRAL SPINE PROGRESSING ROM TOLERATED. BABS LE ROM, STRETCHING AND STRENGTHENING. HEP INSTRUCTION. Subjective Subjective: Work/Leisure: PATIENT WORKS FOR [employer] IN [facility] SHE IS UP AND DOWN THROUGHOUT THE DAY. 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 Disability: NO Present symptoms: BABS LOW BACK PAIN R AND CENTRAL > LEFT. R HIP PAIN. DENIES BABS LE PAIN, NUMBNESS AND TINGLING. R HIP CATCHING. Present since: OFF AND ON FOR SEVERAL YEARS BUT WORSE OVER THE LAST 2 MONTHS AND NOW CONSTANT PAIN. Pain Scale: WORST 10/10, LEAST 2/10 Currently: 4-5/10 Is it getting better, worse or staying the same: STAYING THE SAME Commenced as a result of: NO APPARENT REASON Worse: STANDING MORE THAN 5 MIN, WALKING MORE 5 MIN AND SOMETIMES 1-2 MINUTES, STEPS, LIFTING A GALLON OF MILK OR MORE, GETTING IN/OUT OF SHOWER - STEPPING OVER THE TUB, DOING THE LAUNDRY - GETTING IT DOWN THE STEPS - STANDING AND BENDING TO DO IT. GETTING IN/OUT OF THE CAR, HURTS TO DRIVE TOO. RISING FROM SITTING DEPENDING ON THE TYPE OF CHAIR. RISING FROM LOW TOLIET. Better: MELOXICAM, TYLONOL, IBUPROFEN, TRAMADOL, HEAT, REST - SITTING IN RECLINER WITH LEG REST UP. Disturbed sleep: YES - CAN ONLY SLEEP ON L SIDE - SLEEPING BETWEEN BED AND CHAIR. Previous history/Previous treatment: PHYSICAL THERAPY - YEARS AGO WITH BENEFIT ON LAND. NO CHIROPRACTIC FOR THIS. Treatment this episode: MEDICATION, PAIN INJECTION WITH DR. SANCHEZ 09/26/24 - WITHOUT BENEFIT FOR PAIN AND INCREASED SUGAR. Coughing/sneezing/straining: NEGATIVIE FOR INCREASED PAIN. Gait: TIME AND DISTANCE LIMITED. UNSTEADY. NEAR FALLS WHEN STEPPING ON R LE BECAUSE HIP WANTS TO GIVE OUT SOMETIMES. NO FALLS. DOES NOT USE ANY AD'S. THIS PT RECOMMENDED CANE FOR SAFETY AND PAIN RELIEF AND SHE STATES DR. REECE DID TOO. SHE IS GOING TO CONSIDER GETTING ONE. Bowel or Bladder Dysfunction: PATIENT DENIES Accidents: NO Unexplained weight loss: NO Imaging: RECENT LUMBAR X-RAY AND R HIP 09/02/24: IMPRESSION: Mild degenerative changes with no acute osseous abnormality in the lumbar spine. RIGHT HIP: No fracture. No suspicious bone lesion. Normal alignment. Moderate joint space narrowing. Soft tissues are unremarkable. PMH/Recent major surgery: IDDM, HTN, COPD, CIRRHOSIS OF THE LIVER. Objective Objective: Sitting/Standing Posture: L ILIAC CREST HIGHER THAN R IN STANDING. ANTERIOR PELVIC TILT. NO RELEVANT LATERAL LUMBAR SHIFT. Active Correction of posture: ABLE TO PARTIALLY CORRECT BUT UNABLE TO MAINTAIN. CORRECTION INCREASES LBP AND DECREASES C/O R HIP PAIN. Other Observations: THIS PATIENT AMBULATES INDEP'LY INTO PT WITH ANTALGIC GAIT PATTERN WITH MILD LIMP ON R LE, DECREASED BABS STRIDE LENGTH, AND DECREASED CADANCE. NO AD OR LOB. Sensory deficit: BABS LE LIGHT TOUCH SENSATION GROSSLY INTACT AND SYMMETRICAL ROM deficit: BABS HIP EXTERNAL ROTATOR TIGHTNESS, HIP FLEXOR TIGHTNESS. RIGHT HS AND CALF TIGHTNESS > L. R HIP IR TESTING PROVOKES R HIP PAIN. Motor deficit: L HIP 4/5, KNEE 5/5, ANKLE 5/5. R HIP 3+/5, KNEE 4/5, ANKLE 4/5. Reflexes: R QUAD 1+, L QUAD 1+. UNABLE TO ELICIT BABS ACHILLES DTR'S. Dural Signs: POSITIVE R LE AND NEGATIVE L LE. Lumbar mvmt loss: flex - MOD ext - ALLISON R SG - MA L SG - MOD PATIENT C/O INCREASED R LBP AND R HIP PAIN WITH LUMBAR ROM TESTING ALL PLANES EXCEPT LUMBAR EXTENSION BUT SHE HAS VERY LITTLE EXTENSION ROM. PAIN IS NW A RESULT. Core strength: POOR Palpation: PATIENT WITH ACUTE LOWER LUMBAR, SACRAL AND R GREATER TROCH REGION TENDERNESS. TUG TIME = 18.14 SEC WITHOUT AD. 30 STS TEST WITH ONE UE ASSIST ON ARM OF CHAIR = 5 Balance/Special Test Scores Lower Extremity Functional Score: 26 Goals Goal 1:: DECREASE C/O LOW BACK AND R HIP PAIN BY AT LEAST 50% TO EASE ADL'S Goal Time Frame: 4-6 Weeks Goal 2:: PATIENT WILL COMPLETE 8 STANDS IN 30 SECS WITH HANDS ON KNEES TO DEMONSTRATE IMPROVED FUNCTIONAL STRENGTH Goal 3:: PATIENT WILL COMPLETE TUG IN < 12 SECS WITHOUT AD TO DEMONSTRATE IMPROVED GAIT STABILITY Goal Time Frame: 4-6 Weeks Goal 4:: PATIENT WILL BE ABLE TO WALK FOR AT LEAST 10 MINUTES WITHOUT AGGREVATION OF SYMPTOMS IN ORDER TO PERFORM ADL'S AND IADL'S. Goal Time Frame: 4-6 Weeks Goal 5:: PATIENT WILL BE INDEP WITH A HEP FOR CONTINUED IMPROVEMENT ONCE FORMAL PHYSICAL THERAPY CONCLUDES. Goal Time Frame: 4-6 Weeks Rehabilitation Potential Physical Therapy Diagnosis: CORE AND BABS HIP (R>L) STIFFNESS AND WEAKNESS WITH GAIT DIFFICULTY. Rehabilitation Potential: Good Anticipated Interventions Patient/Client Instruction: Educate patient on: Condition, Plan of Care and Risk Factors For the Purpose of:: To improve self management Therapeutic Exercise to Include: Strength training, Body mechanics, Postural training, Flexibilty training, Gait and locomotor training, Neuromotor development, In an aquatic setting and Dynamic Lumbar Stabilization For the Purpose of:: To decrease pain, To improve muscle performance and motor function, To improve ability to perform ADL's, To increase tolerance to act ivity/condition/position, To improve ability of physical actions for home/community/work/leisure, To improve gait and locomotor functions, To increase flexibility/ROM, To improve safety with gait and To improve self management Text: Thank you for the opportunity to evaluate your patient. For Medicare and Medicare HMO plans, please review the plan of care and approve it. It will need to be FAXED BACK to us at [phone] for Medicare purposes. For Medicare only, by signing this I certify the plan of care. Please let me know if there are questions or concerns regarding this plan of care. Physician Signature: Date:
== END 2024-11-06 19:00 | disposition home or self-care (01) ==
LOC: PT 17:13
PROVIDERS: PCP Family Medicine; Referring Provider Specialist; Visit Provider Specialist
DX: M16.11 Unilateral primary osteoarthritis, right hip (principal); M54.50 Low back pain, unspecified
CPT/HCPCS: 97162

== ENCOUNTER → 2024-11-10 | Outpatient (CLI) | payer BC, SELFPAY ==
--- NOTE | 2024-11-10 07:18 | US_ITS ---
PROCEDURE: ABDOMEN LIMITED 11/10/2024 REASON FOR EXAM: PANCYTOPENIA, CIRRHOSIS TECHNIQUE: Complete abdominal ultrasound preston-scale images with color doppler. PATIENT PREPARATION: Per protocol FINDINGS: Study is limited by patient body habitus. The visualized pancreas appears atrophic and heterogeneous without evidence of pancreatic ductal dilation seen. The liver measures 17.5 cm and appears heterogeneous and coarsened echotexture. The liver surface contour appears somewhat lobular. No intrahepatic biliary ductal dilation seen. Hepatic color flow is present with flow in the portal vein hepatopetal as expected. There is note of partial nonocclusive thrombus within the portal vein with the portal vein dilated measuring 2.3 -1.7 cm. The splenic vein appears dilated measuring 1.6 cm. Splenomegaly with the spleen measuring 25 x 8.4 x 7.3 cm. Status post cholecystectomy CBD 6 mm The right kidney measures 10.9 x 6.5 x 4.5 cm with a cortical thickness of 1.2 cm. No right hydronephrosis or renal stone seen. No free fluid seen. US/Abdomen Limited IMPRESSION: The liver measures 17.5 cm and appears heterogeneous and coarsened echotexture. The liver surface contour appears somewhat lobular. No intrahepatic biliary ductal dilation seen. Hepatic color flow is p resent with flow in the portal vein hepatopetal as expected. There is note of partial nonocclusive thrombus within the portal vein with the portal vein dilated measuring 2.3 -1.7 cm. The splenic vein appears dilated measuring 1.6 cm. Splenomegaly with the spleen measuring 25 x 8.4 x 7.3 cm. Reading Location: [id number]
== END | disposition home or self-care (01) ==
PROVIDERS: PCP Family Medicine; Referring Provider Nurse Practitioner Acute Care; Visit Provider Nurse Practitioner Acute Care
DX: D61.818 Other pancytopenia (principal); K74.60 Unspecified cirrhosis of liver; R10.9 Unspecified abdominal pain
CPT/HCPCS: 76705; 93976

== ENCOUNTER → 2024-11-27 | Outpatient (CLI) | payer BC, SELFPAY ==
--- NOTE | 2024-11-27 15:48 | CT_ITS ---
PROCEDURE: CTA ABDOMEN W/WO CONTRAST 11/27/2024 REASON FOR EXAM: PORTAL THROMBUS ON US, CIRRHOSIS TECHNIQUE: CTA imaging of the abdomen and pelvis with intravenous contrast. Multiplanar and multisequence images were obtained. CONTRAST: 90 mL Isovue 370 One or more dose reduction techniques were used (e.g., Automated exposure control, adjustment of the mA and/or kV according to patient size, use of iterative reconstruction technique). RADIATION DOSE SUMMARY: CTDlvol: 27.3 mGy DLP: 2604 mGycm COMPARISON: Abdominal ultrasound on 11/10/2024, CT abdomen and pelvis 04/19/2023 FINDINGS: Aorta: Mild calcified atherosclerosis. No abdominal aortic aneurysm. Iliac Arteries: Scattered atherosclerotic plaque. No aneurysm or significant stenosis. Celiac: Unremarkable SMA: Unremarkable MIRNA : Unremarkable Right Renal: Unremarkable Left Renal: Unremarkable Other Findings: There is thrombus present at the periphery of the main portal vein (series 3, image 42) and right portal vein (image 38). The main portal vein measures 1.9 cm in diameter. Status post cholecystectomy. Nodular contour of the liver. Marked splenomegaly measuring 23.7 cm in longitudinal dimension. Right-sided fat containing lumbar hernia, unchanged. CT/CTA Abdomen W/WO Contrast IMPRESSION: 1. Thrombus is present within the main and right portal veins, which appears t o be partially occlusive. 2. Marked splenomegaly. 3. Nodular contour of the liver, suggestive of fibrosis. Reading Location: [id number]
== END | disposition home or self-care (01) ==
LOC: CT 15:42
PROVIDERS: PCP Family Medicine; Referring Provider Nurse Practitioner Acute Care; Visit Provider Nurse Practitioner Acute Care
DX: I81 Portal vein thrombosis (principal); K74.60 Unspecified cirrhosis of liver; D69.6 Thrombocytopenia, unspecified
CPT/HCPCS: 74175; Q9967

== ENCOUNTER → 2024-11-29 | Outpatient (CLI) | payer BC, SELFPAY ==
[2024-11-29 08:33] LABS: Absolute Lymphocyte Count 0.53 X10^3/uL (0.83-4.51); Absolute Neutrophil Count 2.1 X10^3/uL (2.0-7.7); Basophil# 0.01 X10^3/uL; Basophil% 0.3 % (0-1); Hematocrit 35.5 % (37-47); Hemoglobin 11.7 g/dL (12.0-15.0); Lymphocyte # 0.53 X10^3/ul (0.83-4.51); Lymphocyte % 17.7 % (19-41); Mean Corpuscular Hgb 27.7 pg (27.0-32.0); Mean Corpuscular Volume 84.1 fL (81-99); Mean Platelet Vol. 11.1 fl (6.2-12.0); Monocyte# 0.35 X10^3/uL; Monocyte% 11.7 % (0-10); NRBC Flagged by Analyzer 0 % (0-5); Neutrophil # 2.09 X10^3/uL (2.7-7.7); POSITIVE COUNT YES; POSITIVE DIFFERENTIAL YES; Platelet Count 53 K/mm3 (150-450); RBC Distribution Width CV 15.2 % (11.6-14.6); RBC Distribution Width SD 45.9 fl (35.1-43.9); Red Blood Count 4.22 M/mm3 (4.2-5.4)
[2024-11-29 08:48] LABS: Differential Indicated SCAN CRITERIA MET
[2024-11-29 09:17] LABS: AST(SGOT) 27 U/L (<=31); Alanine Aminotransfer ALT/SGPT 25 U/L (<=34); Albumin, Serum 3.8 g/dL (3.5-5.0); Alkaline Phosphatase 120 U/L (35-104); Bilirubin, Direct 0.37 mg/dL (0.00-0.30); Globulin 3.6 g/dL (2.2-4.2); Protein, Total 7.4 g/dL (5.9-8.4); Total Bilirubin 0.84 mg/dL (0.00-1.30)
[2024-11-29 09:27] LABS: Platelet Estimate SLT DEC (ADEQ)
== END | disposition home or self-care (01) ==
LOC: LAB 07:52
PROVIDERS: PCP Family Medicine; Referring Provider Nurse Practitioner Acute Care; Visit Provider Nurse Practitioner Acute Care
DX: K74.60 Unspecified cirrhosis of liver (principal); D61.818 Other pancytopenia; D69.6 Thrombocytopenia, unspecified; I81 Portal vein thrombosis
CPT/HCPCS: 36415; 80076; 85025

== ENCOUNTER → 2024-12-08 | Outpatient (CLI) | payer BC, SELFPAY ==
[2024-12-08 08:31] LABS: Absolute Lymphocyte Count 0.55 X10^3/uL (0.83-4.51); Absolute Neutrophil Count 2.4 X10^3/uL (2.0-7.7); Basophil# 0.01 X10^3/uL; Basophil% 0.3 % (0-1); Hematocrit 37.3 % (37-47); Hemoglobin 12.2 g/dL (12.0-15.0); Lymphocyte # 0.55 X10^3/ul (0.83-4.51); Lymphocyte % 16.4 % (19-41); Mean Corp Hgb Conc 32.7 g/dL (32-36); Mean Corpuscular Hgb 27.9 pg (27.0-32.0); Mean Corpuscular Volume 85.4 fL (81-99); Mean Platelet Vol. 10.9 fl (6.2-12.0); Monocyte# 0.36 X10^3/uL; Monocyte% 10.7 % (0-10); NRBC Flagged by Analyzer 0 % (0-5); Neutrophil # 2.43 X10^3/uL (2.7-7.7); Neutrophil % 72.3 % (47-70); POSITIVE COUNT YES; POSITIVE DIFFERENTIAL YES; Platelet Count 51 K/mm3 (150-450); RBC Distribution Width CV 15.3 % (11.6-14.6); RBC Distribution Width SD 47.3 fl (35.1-43.9); Red Blood Count 4.37 M/mm3 (4.2-5.4); White Blood Count 3.4 K/mm3 (4.4-11.0)
[2024-12-08 09:09] LABS: AST(SGOT) 32 U/L (<=31); Alanine Aminotransfer ALT/SGPT 26 U/L (<=34); Alkaline Phosphatase 116 U/L (35-104); Anion Gap 10 (5-15); BUN 16 mg/dL (4-19); Calcium,Total 9.7 mg/dL (7.6-11.0); Carbon Dioxide 23.9 mmol/L (21.0-32.0); Chloride 100 mmol/L (98-108); Creatinine, Serum 1.12 mg/dL (0.70-1.20); EST Glomerular Filtration Rate 57 (>60); Globulin 3.6 g/dL (2.2-4.2); Glucose 272 mg/dL (70-99); Potassium 4.8 mmol/L (3.3-5.1); Protein, Total 7.6 g/dL (5.9-8.4); Sodium Level 135 mmol/L (133-145); Total Bilirubin 1.03 mg/dL (0.00-1.30)
== END | disposition home or self-care (01) ==
LOC: LAB 07:15
PROVIDERS: PCP Family Medicine; Referring Provider Nurse Practitioner Acute Care; Visit Provider Nurse Practitioner Acute Care
DX: I81 Portal vein thrombosis (principal); D61.818 Other pancytopenia; K74.60 Unspecified cirrhosis of liver; D69.6 Thrombocytopenia, unspecified
CPT/HCPCS: 36415; 80048; 80076; 85025

== ENCOUNTER → 2024-12-16 | Outpatient (CLI) | payer BC, SELFPAY ==
--- OUTSIDE RECORDS SUMMARY | 2024-12-16 08:27 | XMS RPT_ITS | CCD ---
Author Organization [facility] [place] [facility] Care Team Providers Care Occupational Health Professional Name Role Phone PROVIDER, UNKNOWN Unavailable Unavailable See Ricketts Unavailable Unavailable Salma Preston Unavailable Unavailab See Maldonado Primary Care Provider [phone] See Ricketts Primary Care Provider Dr. Rik Peña Primary Care Provider Dr. Rik Peña Referring Provider Dr. Rosales Oviedo Attending Provider Dr. Rik Peña Other Provider Dr. Rik Gloria Attending Provider [phone] Juan C SALDIVAR, JANNA-C Dee Attending Provider Dr. Rik Peña Primary Care Provider Dr. Rik Peña Referring Provider Dr. Rosales [place] Attending Provider Dr. Rik Peña Other Provider Dr. Rik Gloria Attending Provider Juan C CUTTER ALUMINUM SHEET, CUTTER ALUMINUM SHEET-C Dee Attending Provider Juan C CUTTER ALUMINUM SHEET, CUTTER ALUMINUM SHEET-C Dee Referring Provider Al Ricketts Primary Care Provider See Ricketts MD Primary Care Provider See Ricketts MD Primary Care Provider Argenis Balckwell Unavailable Unavailab caleb Juan MD, Yiping Unavailable Drake WOODSON, Angel Unavailable SACR SEYMOUR Attending Unavailable LILIAM, SEE Primary Care Unavailable Rosales [place] Attending Unavailable Liliam, See Referring Unavailable Liliam, See Primary Care Unavailable Portillo, Deisi Referring Unavailable Portillo, Deisi Attending Unavailable Liliam, See Primary Care Unavailable Portillo, Deisi Referring Unavailable Portillo, Deisi Attending Unavailable Liliam, See Primary Care Unavailable Portillo, Deisi Referring Unavailable Portillo, Deisi Attending Unavailable Liliam, See Primary Care Unavailable Rc Freeman Attending Unavailabl e Liliam, See Primary Care Unavailable Reodica, Lino Referring Unavailable Reodica, Lino Attending Unavailable Liliam, See Primary Care Unavailable Portillo, Deisi Referring Unavailable Portillo, Deisi Attending Unavailable Liliam, See Primary Care Unavailable Liliam, See Primary Care Unavailable Hugo Pierre Attending Unavailable Liliam, See Referring Unavailable Liliam, See Primary Care Unavailable Liliam, Robles Attending Unavailable Liliam, Robles Referring Unavailable Liliam, See Primary Care Unavailable Portillo, Deisi Attending Unavailable Liliam, See Referring Unavailable Liliam, See Primary Care Unavailable Portillo, Deisi Attending Unavailable Portillo, Deisi Referring Unavailable Covarrubias, Alfonso Attending Unavailable Liliam, See Primary Care Unavailable Juan Francisco Evans Attending Unavailable Liliam, See Referring Unavailable Liliam, See Primary Care Unavailable Allergies Allergy Classification Reported Allergen(s) Allergy Type Date of Onset Reaction(s) Facility Cat Hair Extract (2 sources) Cat Hair Extract Drug Allergy 5 Anaphylaxis, Swelling [facility] Pollen (2 sources) Pollen Substance Allergy 3 Unknown [facility] (20 sources) Cat Hair Extract Drug Allergy 5 Swelling, Anaphylaxis [place] (16 sources) cat dander; Translations: [cat dander] Allergy to substance 5 Anaphylaxis, Swelling [facility] (20 sources) Pollen Propensity to adverse reactions 3 Unknown [facility] (1 source) Cat Hair Extract Allergy to substance 5 Anaphylaxis, Swelling [facility] (20 sources) Lisinopril Propensity to adverse reactions 3 Angioedema [employer] (1 source) Lisinopril Drug Allergy [address] [facility] Repository Medications Current Medications Medication Drug Class(es) Dates Sig (Normalized) Sig (Original) acetaminophen 650 mg / dextromethorphan hydrobromide 20 mg / guaiFENesin 400 mg / phenylephrine hydrochloride 10 mg powder for oral solution (1 source) Uncompetitive G-dofkwl-N-aspartat e Receptor Antagonist, Sigma-1 Agonist, alpha-1 Adrenergic Agonist Phenylephrine-DM- GG-APAP (MUCINEX FAST-MAX) [id number] MG PACK Take by mouth 0 Active acetaminophen 325 mg / HYDROcodone bitartrate 5 mg oral tablet (1 source) Opioid Agonist Start: 09-02-2024 take 1 tablet by mouth every six hours as needed for pain HYDROcodone-aceta minophen (Cameron) 5-325 MG tablet TAKE 1 TABLET BY MOUTH EVERY 6 HOURS NEEDED FOR PAIN FOR 3 DAYS 09/02/2024 Active acyclovir 400 mg oral tablet (3 sources) Herpesvirus Nucleoside Analog DNA Polymerase Inhibitor, Herpes Simplex Virus Nucleoside Analog DNA Polymerase Inhibitor, Herpes Zoster Virus Nucleoside Analog DNA Polymerase Inhibitor Start: 12-07-2022 End: 12-14-2022 take 1 tablet by mouth three times daily acyclovir (Zovirax) 400 MG tablet Take 1 tablet (400 mg) by mouth 3 times daily for 7 days. 21 tablet 0 12/07/2022 12/14/2022 Active albuterol sulfate HFA (PROAIR HFA) 108 (90 Base) MCG/ACT inhaler (1 source) Start: 06-14-2020 take 2 puff(s) by inhalation every six hours as needed for wheezing albuterol sulfate HFA (PROAIR HFA) 108 (90 Base) MCG/ACT inhaler Inhale 2 puffs into the lungs every 6 hours as needed for Wheezing or Shortness of Breath 1 Inhaler 0 06/14/2020 Active atorvastatin 20 mg oral tablet (12 sources) HMG-CoA Reductase Inhibitor Start: 07-29-2020 take 20 mg by mouth at bedtime Atorvastatin Active 20 MG PO AT BEDTIME July 29, 2020 12:00am Start: 05-31-2020 take 1 tablet by once daily atorvastatin (LIPITOR) 20 MG tablet Take 1 tablet by mouth daily 30 tablet 1 05/31/2020 Active Start: 12-06-2019 take 1 tablet by herve th once daily atorvastatin (LIPITOR) 20 MG tablet Take 1 tablet by mouth daily 30 tablet 5 12/06/2019 Active Start: 08-02-2019 take 1 tablet by herve th once daily atorvastatin (LIPITOR) 20 MG tablet take 1 tablet by mouth once daily 30 tablet 5 08/02/2019 Active Blood Glucose Monitoring Suppl (TRUE METRIX AIR GLUCOSE METER) w/Device KIT (1 source) Start: 05-17-2020 Blood Glucose Monitoring Suppl (TRUE METRIX AIR GLUCOSE METER) w/Device KIT Indications: Hyperglycemia , Type 2 diabetes mellitus with polyneuropathy (HCC) 1 kit by Does not apply route 4 times daily 1 kit 0 05/17/2020 Active 24 hr budesonide 9 mg extended release oral tablet (2 sources) Corticosteroid Start: 05-28-2020 take 1 tablet by mouth once daily UCERIS 9 MG TB24 Take 9 mg by mouth daily 90 tablet 1 05/28/2020 Active Start: 02-14-2020 take 1 tablet by herve th once daily UCERIS 9 MG TB24 take 1 tablet by mouth once daily 0 02/14/2020 Active 24 hr buPROPion hydrochloride 300 mg extended release oral tablet (20 sources) Aminoketone Start: 02-19-2023 End: 10-03-2024 take 1 tablet by mouth once daily buPROPion XL (Wellbutrin XL) 300 MG 24 hr tablet Indications: Anxiety TAKE 1 TABLET BY MOUTH ONCE DAILY. DO NOT CRUSH, CHEW OR SPLIT. 90 tablet 10/03/2024 Active busPIRone hydrochloride 10 mg oral tablet (20 sources) Start: 10-12-2023 End: 10-12-2023 take 10 mg by mouth twice daily 10 mg, Oral, 2 times daily, First dose on Wed10/12/23 at 1125 Start: 02-18-2023 End: 10-03-2024 take 1 tablet by mouth twice daily busPIRone (Buspar) 10 MG tablet Indications: Anxiety Take 1 tablet by mouth twice daily 60 tablet 10/03/2024 Active cephalexin 500 mg oral capsule (1 source) Cephalosporin Antibacterial Start: 08-08-2019 take 1 capsule by mouth three times daily cephALEXin (KEFLEX) 500 MG capsule Take 1 capsule by mouth 3 times daily 30 capsule 0 08/08/2019 Active diclofenac sodium 0.01 mg/mg topical gel (8 sources) Nonsteroidal Anti-inflammatory Drug Start: 07-29-2020 apply 2 g topically twice daily Diclofenac Sodium Active 2 GM TOPICAL TWICE A DAY July 29, 2020 12:00am Start: 04-08-2020 diclofenac sod ium (VOLTAREN) 1 % GEL Indications: Muscle strain of anterior chest wall Apply 2 g topically 2 times daily To chest 1 Tube 0 04/08/2020 Active fluconazole 150 mg oral tablet (4 sources) Azole Antifungal Start: 10-24-2024 End: 10-31-2024 fluconazole (Diflucan) 150 MG tablet Indications: Yeast dermatitis Take 1 tablet (150 mg) by mouth daily for 7 days. Take one tab now. Repeat in 7 days if symptoms persist. 7 tablet 10/24/2024 10/31/2024 Active Start: 02-26-2024 End: 03-04-2024 take 1 tablet by mouth once daily fluconazole (Diflucan) 100 MG tablet Take 1 tablet (100 mg) by mouth daily for 7 days. 7 tablet 02/26/2024 03/04/2024 Active FLUoxetine 20 mg oral tablet (1 source) Serotonin Reuptake Inhibitor FLUoxetine (PROzac) 20 MG tablet Take by mouth daily. 0 Active glimepiride 2 mg oral tablet (10 sources) Sulfonylurea Start: 09-01-19 take 2 tablets by mouth once daily at breakfast glimepiride (Amaryl) 2 MG tablet Indications: Type 2 diabetes mellitus with hyperglycemia, unspecified whether custodial insulin use (HCC) Take 2 tablets (4 mg) by mouth daily (with breakfast). 09/28/2024 Active Start: 06-30-2024 End: 08-01-2024 take 1 tablet by mouth once daily at breakfast glimepiride (Amaryl) 2 MG tablet Indications: Type 2 diabetes mellitus with hyperglycemia, unspecified whether termite helper insulin use (HCC) Take 1 tablet (2 mg) by mouth daily (with breakfast). 30 tablet 08/01/2024 Active Handicap Placard MISC (6 sources) Start: 07-20-[address] MISC by Does not apply route Duration: 5 years, 2021 1 each 0 07/20/2017 Active 3 ml insulin glargine 100 unt/ml pen injector (11 sources) Insulin Analog Start: 10-24-2024 insulin glargi ne (Lantus SoloStar) 100 UNIT/ML pen Indications: Type 2 diabetes mellitus with hyperglycemia, unspecified whether termite helper insulin use (HCC) Inject 16 Units under the skin Nightly. 10/24/2024 Active Start: 10-03-2024 End: 10-24-2024 insulin glargine (Lantus Jennifer oStar) 100 UNIT/ML pen Indications: Type 2 diabetes mellitus with hyperglycemia, unspecified whether termite helper insulin use (HCC) Inject 14 Units under the skin Nightly. 5 Pen 10/03/2024 10/24/2024 Discontinued Start: 08-02-2024 End: 09-20-2024 inject 10 [IU] by subcutaneous injection once daily Lantus SoloStar 100 UNIT/ML pen Indications: Type 2 diabetes mellitus with hyperglycemia, unspecified whether custodial insulin use (HCC) INJECT 10 UNITS SUBCUTANEOUSLY NIGHTLY. DISCARD PEN AFTER 28 DAYS. 3 mL 09/20/2024 Active Start: 02-19-2023 End: 02-20-2023 insulin glargine (Lantus) injection 15 Units labetalol hydrochloride 100 mg oral tablet (20 sources) beta-Adrenergic Jenn Start: 08-26-2023 End: 10-03-2024 take 1 tablet by mouth in the morning labetalol (Normodyne) 100 MG tablet Indications: Essential hypertension TAKE 1 TABLET BY MOUTH IN THE MORNING AND 1 TABLET IN THE EVENING. 60 tablet 10/03/2024 Active Start: 07-04-2019 End: 08-26-2023 take 1 tablet by mouth in the morning labetalol (Normodyne) 100 MG tablet Indications: Essential hypertension Take 1 tablet (100 mg) by mouth in the morning and 1 tablet (100 mg) in the evening. 60 tablet 3 08/26/2023 Active lidocaine 0.04 mg/mg medicated patch (4 sources) Antiarrhythmic, Amide Local Anesthetic Start: 03-15-2023 End: 03-25-2023 apply 1 dose transdermal route once daily Lidocaine 4 % patch Place 1 patch on the skin daily for 10 days. 10 patch 0 03/15/2023 03/25/2023 Active lisinopril 40 mg oral tablet (13 sources) Angiotensin Converting Enzyme Inhibitor Start: 07-29-2020 take 40 mg by mouth once daily Lisinopril Active 40 MG PO DAILY July 29, 2020 12:00am Start: 10-03-2018 End: 12-09-2022 take 1 tablet by mouth once daily lisinopril (PRINIVIL;ZESTRIL) 40 MG tablet take 1 tablet by mouth once daily 0 10/03/2018 Active mesalamine 1200 mg delayed release oral tablet (1 source) Aminosalicylate Start: 02-14-2020 take 2 tablets by mouth once daily LIALDA 1.2 g EC tablet take 2 tablets by mouth once daily 0 02/14/2020 Active metFORMIN hydrochloride 1000 mg oral tablet (20 sources) Biguanide Start: 09-04-2024 take 1 tablet by mouth twice daily at mealtime metFORMIN (Glucophage) 1000 MG tablet Indications: Type 2 diabetes mellitus with polyneuropathy (HCC) Take 1 tablet (1,000 mg) by mouth 2 times daily (with meals). 180 tablet 1 09/04/2024 Active Start: 07-19-2024 take 1 tablet by herve th in the morning metFORMIN (Glucophage) 1000 MG tablet Indications: Type 2 diabetes mellitus with polyneuropathy (HCC) TAKE 1 TABLET BY MOUTH IN THE MORNING AND 1 TABLET IN THE EVENING. TAKE WITH FOOD. 60 tablet 07/19/2024 Active Start: 02-22-2024 take 1 tablet by herve th in the morning metFORMIN (Glucophage) 1000 MG tablet Indications: Type 2 diabetes mellitus with polyneuropathy (HCC) Take 1 tablet (1,000 mg) by mouth in the morning and 1 tablet (1,000 mg) in the evening. Take with meals. 60 tablet 3 02/22/2024 Active Start: 11-03-2022 End: 01-03-2024 take 1 tablet by mouth in the morning metFORMIN (Glucophage) 1000 MG tablet Indications: Type 2 diabetes mellitus with polyneuropathy (HCC) Take 1 tablet (1,000 mg) by mouth in the morning and 1 tablet (1,000 mg) in the evening. Take with meals. 30 tablet 3 01/03/2024 Active Start: 11-03-2022 metFORMIN (Glu cophage) 1000 MG tablet Take 100 mg by mouth in the morning and 100 mg in the evening. 0 11/03/2022 Active Start: 07-29-2020 take 1000 mg by mout h twice daily at mealtime Metformin Active 1000 MG PO TWICE DAILY WITH MEALS July 29, 2020 12:00am Start: 03-25-2020 take 1 tablet by herve th twice daily at mealtime metFORMIN (GLUCOPHAGE) 1000 MG tablet Indications: Uncontrolled type 2 diabetes mellitus with microalbuminuria, with long-term current use of insulin (HCC) take 1 tablet by mouth twice a day with meals 60 tablet 2 03/25/2020 Active Start: 06-19-2019 take 1 tablet by herve th twice daily at mealtime metFORMIN (GLUCOPHAGE) 1000 MG tablet Indications: Uncontrolled type 2 diabetes mellitus with microalbuminuria, with long-term current use of insulin (HCC) Take 1 tablet by mouth 2 times daily (with meals) 60 tablet 8 06/19/2019 Active nitroglycerin 0.02 mg/mg topical ointment (7 sources) Nitrate Vasodilator Start: 04-04-2020 nitroglyce rin (NITRO-BID) 2 % ointment 1 inch Start: 06-03-2018 nitroGLYCERIN (NITROSTAT) 0.4 MG SL tablet up to max of 3 total doses. If no relief after 1 dose, call 911. 25 tablet 3 06/03/2018 Active nortriptyline 50 mg oral capsule (1 source) Tricyclic Antidepressant take 1 capsule by mouth once daily nortriptyline (Pamelor) 50 MG capsule Take 50 mg by mouth Nightly. 0 Active nystatin 100 unt/mg topical powder (20 sources) Polyene Antifungal Start: 02-26-20 End: 02-26-20 nystatin (Mycostatin) [id number] UNIT/GM powder Apply topically 2 times daily. 30 g 02/26/2024 02/25/2025 Active Start: 07-29-2020 End: 04-07-2022 Nystatin Discontinued 1 APPL IC TOPICAL THREE TIMES A DAY July 29, 2020 12:00am April 07, 2022 1:15pm Start: 04-08-2020 nystatin (MYCO STATIN) [id number] UNIT/GM cream Indications: Skin yeast infection Apply topically 2 times daily to groin. 30 g 0 04/08/2020 Active ondansetron 4 mg oral tablet (8 sources) Serotonin-3 Receptor Antagonist Start: 02-19-2024 End: 02-22-2024 take 1 tablet by mouth every six hours ondansetron (Zofran) 4 MG tablet Take 1 tablet (4 mg) by mouth in the morning and 1 tablet (4 mg) at noon and 1 tablet (4 mg) in the evening and 1 tablet (4 mg) before bedtime. Do all this for 3 days. 12 tablet 02/19/2024 02/22/2024 Active Start: 03-15-2023 End: 03-18-2023 take 1 tablet by mouth every six hours ondansetron (Zofran) 4 MG tablet Take 1 tablet (4 mg) by mouth in the morning and 1 tablet (4 mg) at noon and 1 tablet (4 mg) in the evening and 1 tablet (4 mg) before bedtime. Do all this for 3 days. 12 tablet 0 03/15/2023 03/18/2023 Active Start: 03-15-2023 End: 03-15-2023 ondansetron ODT (Zofran-ODT) disintegrating tablet 4 mg Start: 02-01-2023 End: 02-04-2023 take 1 tablet by mouth every eight hours as needed for nausea ondansetron ODT (Zofran-ODT) 4 MG disintegrating tablet Indications: Migraine without aura and without status migrainosus, not intractable Take 1 tablet (4 mg) by mouth every 8 hours as needed for nausea or vomiting for up to 3 days. 10 tablet 0 02/01/2023 02/04/2023 Oxymetazoline (1 source) Oxymetazoline HC l (SINEX ULTRA FINE MIST 12-HOUR NA) by Nasal route 0 Active PARoxetine hydrochloride 40 mg oral tablet (1 source) Serotonin Reuptake Inhibitor Start: 020 take 1 tablet by mouth once daily in the morning PARoxetine (PAXIL) 40 MG tablet Indications: Moderate episode of recurrent major depressive disorder (HCC) , Anxiety Take 1 tablet by mouth every morning 30 tablet 2 08/07/2019 Active rosuvastatin calcium 5 mg oral tablet (8 sources) HMG-CoA Reductase Inhibitor Start: 025 End: 025 take 1 tablet by mouth once daily rosuvastatin (Crestor) 5 MG tablet Indications: Hyperlipidemia LDL goal Take 1 tablet (5 mg) by mouth daily. 90 tablet 1 09/01/2024 02/28/2025 Active sodium chloride flush 0.9 % injection 3 mL (1 source) Start: 020 sodium chloride flush 0.9 % injection 3 mL Tirzepatide (Mounjaro) 2.5 MG/0.5ML solution auto-injector (8 sources) Start: 025 inject 2.5 mg by subcutaneous injection every week Tirzepatide (Mounjaro) 2.5 MG/0.5ML solution auto-injector Indications: Type 2 diabetes with nephropathy (HCC) Inject 2.5 mg under the skin 1 (one) time per week. 2 mL 1 09/01/2024 Active Start: 08-01-2024 inject 2.5 mg by sub cutaneous injection every week Tirzepatide (Mounjaro) 2.5 MG/0.5ML solution auto-injector Indications: Type 2 diabetes with nephropathy (HCC) Inject 2.5 mg under the skin 1 (one) time per week. 2 mL 08/01/2024 Active Tirzepatide (Mounjaro) 5 MG/0.5ML solution auto-injector (1 source) Start: 10-11-2024 inject 5 mg by subcutaneous injection every week Tirzepatide (Mounjaro) 5 MG/0.5ML solution auto-injector Indications: Type 2 diabetes mellitus with polyneuropathy (HCC) Inject 5 mg under the skin 1 (one) time per week. 2 mL 10/11/2024 Active traMADol hydrochloride 50 mg oral tablet (1 source) Opioid Agonist Start: 09-25-2024 take 1 tablet by mouth twice daily as needed traMADol (Ultram) 50 MG tablet TAKE 1 TABLET BY MOUTH TWICE DAILY NEEDED FOR 7 DAYS 09/25/2024 Active 24 hr venlafaxine 150 mg extended release oral capsule (11 sources) Serotonin and Norepinephrine Reuptake Inhibitor Start: 07-29-2020 take 150 mg by mouth once daily Venlafaxine Active 150 MG PO DAILY July 29, 2020 12:00am Start: 05-28-2020 take 1 capsule by mo nvh once daily venlafaxine (EFFEXOR XR) 150 MG extended release capsule take 1 capsule by mouth once daily 90 capsule 1 05/28/2020 Active Start: 12-11-2019 End: 02-07-2020 take 1 capsule by mouth once daily venlafaxine (EFFEXOR XR) 150 MG extended release capsule take 1 capsule by mouth once daily 30 capsule 5 02/07/2020 Active vitamin b12 1 mg/ml injectable solution (20 sources) Vitamin B12 Start: 10-13-2023 End: 08-01-2024 inject 1 mL by subcutaneous injection every week Cyanocobalamin (B-12 Compliance Injection) 1000 MCG/ML kit Indications: Pancytopenia (HCC) Inject 1 ml (1000mcg) subcutaneous weekly x 4 then monthly 4 kit 2 08/01/2024 Active Start: 10-13-2023 End: 08-01-2024 cyanocobalamin (Vitamin B-12 ) 1000 MCG/ML injection INJECT 1 ML SUBCUTANEOUSLY ONCE A WEEK FOR 28 DAYS THEN MONTHLY 10/13/2023 08/01/2024 Discontinued Start: 10-13-2023 cyanocobalamin (Vitamin B-12) 1000 MCG/ML injection INJECT 1 ML SUBCUTANEOUSLY ONCE A WEEK FOR 28 DAYS THEN MONTHLY 10/13/2023 Active Start: 10-13-2023 cyanocobalamin (Vitamin B-12) 1000 MCG/ML injection INJECT 1 ML SUBCUTANEOUSLY ONCE A WEEK FOR 28 DAYS THEN MONTHLY 0 10/13/2023 Active Completed/Discontinued Medications Medication Drug Class(es) Dates Sig (Normalized) Sig (Original) acetaminophen 325 mg oral tablet (10 sources) Start: 09-27-2024 End: 09-27-2024 650 mg, Oral, Once, On Wed09/27/24 at 1535, For 1 dose, Maximum dose of acetaminophen is 4000 mg from all sources in 24 hours. Start: 10-12-2023 End: 10-12-2023 take 1 tablet by mouth every six hours as needed for pain and fever acetaminophen (Tylenol) tablet 650 mg Start: 03-15-2023 End: 03-15-2023 acetaminophen (Tylenol) tabl et 1,000 mg Start: 02-19-2023 End: 02-19-2023 acetaminophen (Tylenol) tabl et 1,000 mg Start: 02-18-2023 End: 02-20-2023 take 650 mg rectal route every six hours as needed for pain and fever acetaminophen (Tylenol) suppository 650 mg acetaminophen 325 mg / butalbital 50 mg / caffeine 40 mg oral tablet (4 sources) Barbiturate, Central Nervous System Stimulant, Methylxanthine Start: 02-19-2024 End: 02-19-2024 take 1 tablet by mouth every four hours as needed for headache 1 tablet, Oral, Every 4 hours PRN, headaches, Starting on 02/19/24 at 1533 Start: 02-19-2024 End: 02-24-2024 take 1 tablet by mouth every six hours as needed for headache [id number] 50-325 -40 MG tablet Take 1 tablet by mouth every 6 hours as needed for headaches for up to 5 days. 20 tablet 02/19/2024 02/24/2024 Active [id number] 200 actuat albuterol 0.09 mg/actuat metered dose inhaler (20 sources) beta2-Adrenergic Agonist Start: 10-12-2023 End: 10-12-2023 take 1 puff(s) by inhalation every six hours as needed for wheezing 1 puff, Inhalation, Every 6 hours PRN, wheezing, shortness of breath, Starting on Wed10/12/23 at 0107 Start: 02-20-2023 End: 08-26-2023 take 1 puff(s) by inhalation every six hours as needed for wheezing albuterol 108 (90 Base) MCG/ACT inhaler Inhale 1 puff every 6 hours as needed for wheezing or shortness of breath. 18 g 11 08/26/2023 Active Start: 02-18-2023 End: 02-20-2023 albuterol 108 (90 Base) MCG/ ACT inhaler 2 puff Start: 08-20-2022 End: 02-20-2023 take 108 puff(s) by inhalation every six hours as needed albuterol 108 (90 Base) MCG/ACT inhaler Inhale 108 puffs every 6 hours as needed. 0 08/20/2022 02/20/2023 Discontinued (Reorder) Start: 07-29-2020 take 1 puff(s) by in halation every six hours as needed Albuterol Sulfate Active 2 PUFF INHALATION EVERY 6 HOURS NEEDED July 29, 2020 12:00am Start: 10-21-2018 take 2 puff(s) by in halation every six hours as needed for wheezing albuterol sulfate HFA (PROAIR HFA) 108 (90 Base) MCG/ACT inhaler Inhale 2 puffs into the lungs every 6 hours as needed for Wheezing or Shortness of Breath 1 Inhaler 1 10/21/2018 Active End: 12-09-2022 Albuterol Sulfate 108 (90 Ba se) MCG/ACT aerosol powder Administer 108 Inhalation. into each nostril in the morning and 108 Inhalation. at noon and 108 Inhalation. in the evening and 108 Inhalation. before bedtime. 0 12/09/2022 Discontinued (Therapy completed) aluminum & magnesium hydroxide-simethicone (MAALOX) 30 mL, lidocaine viscous hcl (XYLOCAINE) 5 mL (GI COCKTAIL) (1 source) Start: 04-04-2020 End: 04-04-2020 aluminum & magnesium hydroxide-simethicone (MAALOX) 30 mL, lidocaine viscous hcl (XYLOCAINE) 5 mL (GI COCKTAIL) amoxicillin 875 mg / clavulanate 125 mg oral tablet (18 sources) Penicillin-class Antibacterial Start: 02-04-2023 End: 02-05-2023 amoxicillin-clavulanate (Augmentin) 875-125 MG per tablet 1 tablet Start: 02-04-2023 End: 02-20-2023 take 1 tablet by mouth every twelve hours amoxicillin-clavulanate (Augmentin) 875-125 MG tablet Take 1 tablet by mouth in the morning and 1 tablet in the evening. Do all this for 10 days. 20 tablet 0 02/04/2023 02/20/2023 Discontinued (Stop taking at discharge) Start: 05-20-2021 End: 05-30-2021 take 1 tablet by mouth every twelve hours Amoxicillin-Pot Clavulanate (Augmentin) 875-125 mg tablet Discontinued 1 TABLET PO Q12H 20 May 20, 2021 12:00am May 30, 2021 12:01am aspirin 81 mg delayed release oral tablet (20 sources) Platelet Aggregation Inhibitor, Nonsteroidal Anti-inflammatory Drug Start: 10-12-2023 End: 08-25-2024 take 81 mg by mouth once daily 81 mg, Oral, Daily, First dose on Wed10/12/23 at 0900, Do not crush, chew, or split. Start: 05-16-2023 End: 05-16-2023 aspirin chewable tablet 324 mg Start: 02-18-2023 End: 02-18-2023 aspirin chewable tablet 81 m g Start: 07-29-2020 take 81 mg by mouth once daily Aspirin Active 81 MG PO DAILY@0800 July 29, 2020 12:00am Start: 05-28-2020 take 1 tablet by mouth once da tree aspirin 81 MG chewable tablet Take 1 tablet by mouth daily 90 tablet 1 05/28/2020 Active Start: 04-04-2020 aspirin chewab le tablet 243 mg Start: 06-04-2018 take 1 tablet by mouth once da tree aspirin 81 MG chewable tablet Take 1 tablet by mouth daily 30 tablet 3 06/04/2018 Active cholecalciferol 0.05 mg oral capsule (12 sources) Vitamin D Start: 07-29-2020 End: 01-27-2021 take 2000 [IU] by mouth once daily Cholecalciferol (Vitamin D3) Discontinued 2000 UNIT PO DAILY July 29, 2020 12:00am January 27, 2021 1:28pm Start: 10-03-2018 take 1 capsule by [facility] once daily RA VITAMIN D-3 2000 units CAPS take 1 capsule by mouth once daily 0 10/03/2018 Active cholecalciferol 2000 unt / folic acid 1 mg oral tablet (3 sources) Vitamin D End: 12-09-2022 take 1 capsule by mouth every twenty-four hours Folic Acid-Cholecalciferol 1-2000 MG-UNIT tablet Take 1 capsule by mouth Every 24 hours. 0 12/09/2022 Discontinued cholecalciferol 9.52 unt/ml / glucose 357 mg/ml oral gel (6 sources) Vitamin D Start: 09-27-2024 End: 09-27-2024 15 g, Oral, As needed, low blood sugar, Starting on Wed09/27/24 at 1457, If blood glucose less than 50 mg/dL and patient ALERT and NOT NPO, give 2 tubes glucose gel. If blood glucose less than 70 mg/dL and patient ALERT and NOT NPO, give 1 tube glucose gel. Repeat blood glucose in 15 minutes. If blood glucose is less than 70 mg/dL, repeat treatment and recheck blood glucose in 15 minutes x2 and notify provider. Start: 10-12-2023 End: 10-12-2023 glucose oral gel 15 g Start: 02-19-2023 End: 02-20-2023 15 g, Oral, As needed, low b lood sugar, Starting on Wed02/19/23 at 0821 If blood glucose less than 50 mg/dL and patient ALERT and NOT NPO, give 2 tubes glucose gel. If blood glucose less than 70 mg/dL and patient ALERT and NOT NPO, give 1 tube glucose gel. Repeat blood glucose in 15 minutes. If blood glucose is less than 70 mg/dL, repeat treatment and recheck blood glucose in 15 minutes x2 and notify provider. clindamycin 300 mg oral capsule (6 sources) Lincosamide Antibacterial Start: 02-08-2021 End: 02-25-2021 take 600 mg by mouth three times daily Clindamycin Hcl Discontinued 600 MG PO THREE TIMES A DAY 60 February 07, 2021 11:00pm February 25, 2021 12:51pm clotrimazole 10 mg/ml topical cream (9 sources) Azole Antifungal Start: 02-04-2023 End: 02-18-2023 clotrimazole (Lotrimin) 1 % cream Apply 1 Application topically 2 times daily for 14 days. Apply to affected area 2 times daily 28 g 0 02/04/2023 02/16/2023 Discontinued (Therapy completed) Continuous Glucose Wad Compressor Operator Adjuster (FreeStyle Linad 3 [place]) device (17 sources) Start: 11-16-2023 End: 06-28-2024 Continuous Glucose Wad Compressor Operator Adjuster (FreeStyle Linda 3 [place]) device Indications: Type 2 diabetes mellitus with polyneuropathy (HCC) 1 Device daily. 1 each 11/16/2023 06/28/2024 Discontinued Start: 11-16-2023 Continuous Glu cose Wad Compressor Operator Adjuster (FreeStyle Linda 3 [place]) device Indications: Type 2 diabetes mellitus with polyneuropathy (HCC) 1 Device daily. 1 each 11/16/2023 Active Start: 11-16-2023 Continuous Glu cose Wad Compressor Operator Adjuster (FreeStyle Linda 3 [place]) device Indications: Type 2 diabetes mellitus with polyneuropathy (HCC) 1 Device daily. 1 each 0 11/16/2023 Active Continuous Glucose Sensor (FreeStyle Linda 3 Sensor) misc (17 sources) Start: 11-16-2023 End: 06-28-2024 Continuous Glucose Sensor (FreeStyle Linda 3 Sensor) misc Indications: Type 2 diabetes mellitus with polyneuropathy (HCC) every 14 (fourteen) days. 2 each 11/16/2023 06/28/2024 Discontinued Start: 11-16-2023 Continuous Glu cose Sensor (FreeStyle Linda 3 Sensor) [facility] [place]: Type 2 diabetes mellitus with polyneuropathy (HCC) every 14 (fourteen) days. 2 each 11/16/2023 Active cyclobenzaprine hydrochloride 10 mg oral tablet (20 sources) Muscle Relaxant Start: 03-15-2023 End: 08-26-2023 take 1 tablet by mouth twice daily as needed for muscle spasms cyclobenzaprine (Flexeril) 10 MG tablet Take 1 tablet (10 mg) by mouth 2 times daily as needed for muscle spasms for up to 5 days. 10 tablet 0 03/15/2023 08/26/2023 Discontinued (Therapy completed) Start: 03-15-2023 cyclobenzaprin e (Flexeril) tablet 5 mg Start: 07-29-2020 End: 04-07-2022 take 10 mg by mouth every eight hours Cyclobenzaprine Discontinued 10 MG PO Q8H July 29, 2020 12:00am April 07, 2022 1:15pm Start: 08-16-2019 take 1 tablet by herve th every eight hours for muscle spasms cyclobenzaprine (FLEXERIL) 10 MG tablet take 1 tablet by mouth every 8 hours if needed for muscle spasm 30 tablet 0 08/16/2019 Active 1 ml dexamethasone phosphate 10 mg/ml injection (2 sources) Corticosteroid Start: 02-19-2024 End: 02-19-2024 10 mg, IntraVENous, Once, On 02/19/24 at 1535, For 1 dose 1 ml diphenhydrAMINE hydrochloride 50 mg/ml cartridge (4 sources) Histamine-1 Receptor Antagonist Start: 02-19-2024 End: 02-19-2024 50 mg, IntraVENous, Once, On 02/19/24 at 1140, For 1 dose Start: 12-07-2022 End: 12-07-2022 diphenhydrAMINE (BENADryl) i njection 25 mg empagliflozin 25 mg oral tablet (19 sources) Sodium-Glucose Cotransporter 2 Inhibitor Start: 03-06-2022 End: 02-16-2023 take 1 tablet by mouth once daily empagliflozin (Jardiance) 25 MG Indications: Type 2 diabetes mellitus with polyneuropathy (HCC) Take 1 tablet (25 mg) by mouth daily. 30 tablet 5 12/09/2022 02/16/2023 Discontinued 2 ml famotidine 10 mg/ml injection (5 sources) Histamine-2 Receptor Antagonist Start: 12-07-2022 End: 12-07-2022 famotidine (Pepcid) injection 20 mg Start: 04-04-2020 take 1 tablet by herve th twice daily famotidine (PEPCID) 20 MG tablet Take 1 tablet by mouth 2 times daily 60 tablet 0 04/04/2020 Active fenofibrate 160 mg oral tablet (12 sources) Peroxisome Proliferator Receptor alpha Agonist Start: 07-29-2020 End: 01-27-2021 take 160 mg by mouth once daily Fenofibrate Discontinued 160 MG PO DAILY July 29, 2020 12:00am January 27, 2021 1:29pm Start: 05-28-2020 take 1 tablet by herve th once daily fenofibrate (TRIGLIDE) 160 MG tablet take 1 tablet by mouth once daily 90 tablet 1 05/28/2020 Active Start: 01-26-2020 take 1 tablet by herve th once daily fenofibrate (TRIGLIDE) 160 MG tablet take 1 tablet by mouth once daily 30 tablet 5 01/26/2020 Active Start: 07-24-2019 take 1 tablet by herve th once daily fenofibrate 160 MG tablet take 1 tablet by mouth daily 30 tablet 5 07/24/2019 Active furosemide 20 mg oral tablet (11 sources) Loop Diuretic Start: 07-29-2020 End: 02-16-2022 take 20 mg by mouth once daily Furosemide Discontinued 20 MG PO DAILY July 29, 2020 12:00am February 16, 2022 2:33pm Start: 05-01-2020 take 1 tablet by herve th once daily furosemide (LASIX) 20 MG tablet take 1 tablet by mouth once daily as directed 0 05/01/2020 Active Start: 11-29-2018 take 1 tablet by herve th once daily furosemide (LASIX) 40 MG tablet Indications: Bilateral leg edema Take 1 tablet by mouth daily 30 tablet 0 11/29/2018 Active glucagon (rdna) 1 mg injection (20 sources) Antihypoglycemic Agent Start: 09-27-2024 End: 09-27-2024 1 mg, IntraMUSCular, PRN, low blood sugar, Blood glucose less than 70 mg/dL and patient NOT ALERT or NPO and does not have IV access., Starting on Wed09/27/24 at 1457, After administration, attempt intravenous access and start D5W at 100 mL/hr. Repeat blood glucose in 15 minutes x2 and notify provider. Start: 10-14-2023 End: 10-13-2024 inject 0.2 mL by subcutaneous injection once as needed glucagon (Gvoke HypoPen) 1 MG/0.2ML injection Indications: Type 2 diabetes mellitus with polyneuropathy (HCC) Inject 0.2 mL (1 mg) under the skin Once as needed for low blood sugar. 1 each 1 10/14/2023 08/25/2024 Discontinued Start: 10-12-2023 End: 10-12-2023 glucagon (human recombinant) injection 1 mg Start: 02-19-2023 End: 02-20-2023 take 1 mL intravenously every hour 1 mg, IntraMUSCular, PRN, low blood sugar, Blood glucose less than 70 mg/dL and patient NOT ALERT or NPO and does not have IV access., Starting on Wed02/19/23 at 0821 After administration, attempt intravenous access and start D5W at 100 mL/hr. Repeat blood glucose in 15 minutes x2 and notify provider. 50 ml glucose 50 mg/ml injection (20 sources) Start: 09-27-2024 End: 09-27-2024 100 mL/hr, IntraVENous, PRN, Blood sugar less than 70mg/dL, Starting on Wed09/27/24 at 1457, Start infusion following administration of dextrose 50% or glucagon. Start: 09-27-2024 End: 09-27-2024 12.5 g, IntraVENous, PRN, lo w blood sugar, Blood glucose less than 70 mg/dL and patient NOT ALERT or NPO., Starting on Wed09/27/24 at 1457, If patient does not respond within 5 minutes, repeat dose x1. Start D5W at 100 mL/hour until ordering provider can be reached. Repeat blood glucose in 15 minutes. If blood glucose is less than 70 mg/dL, repeat treatment and recheck blood glucose in 15 minutes x2. If using Glucostabilizer, dose as instructed per system. Start: 10-12-2023 End: 10-12-2023 dextrose 50 % solution 12.5 g Start: 10-12-2023 End: 10-12-2023 dextrose 5 % infusion Start: 10-11-2023 End: 10-11-2023 dextrose 50 % solution 50 mL Start: 10-11-2023 End: 10-11-2023 dextrose 50 % solution 50 mL Start: 10-11-2023 End: 10-11-2023 dextrose 10 % infusion Start: 10-11-2023 End: 10-11-2023 dextrose 50 % solution 50 mL Start: 10-11-2023 End: 10-11-2023 dextrose 50 % solution 50 mL Start: 02-19-2023 End: 02-20-2023 take 150 mg intravenously every hour 200 mL/hr, IntraVENous, Continuous PRN, blood glucose LESS than or EQUAL to 150 mg/dL, Starting on Wed02/19/23 at 0821 When blood glucose equals 150 mg/dL or below, DISCONTINUE dextrose 5 % and 0.45 % sodium chloride IV Fluid using Per Protocol order mode and start using this dextrose 10% IV fluid order. DO NOT restart saline or dextrose 5 % and 0.45 % sodium chloride infusion if subsequent blood glucose returns above 150 mg/dL. Start: 02-19-2023 End: 02-20-2023 12.5 g, IntraVENous, PRN, lo w blood sugar, Blood glucose less than 70 mg/dL and patient NOT ALERT or NPO., Starting on Wed02/19/23 at 0821 If patient does not respond within 5 minutes, repeat dose x1. Start D5W at 100 mL/hour until ordering provider can be reached. Repeat blood glucose in 15 minutes. If blood glucose is less than 70 mg/dL, repeat treatment and recheck blood glucose in 15 minutes x2. If using Glucostabilizer, dose as instructed per system. Start: 02-19-2023 End: 02-20-2023 100 mL/hr, IntraVENous, PRN, Blood sugar less than 70mg/dL, Starting on Wed02/19/23 at 0821 Start infusion following administration of dextrose 50% or glucagon. 250 ml glucose 50 mg/ml / sodium chloride 4.5 mg/ml injection (6 sources) Start: 10-12-2023 End: 10-12-2023 take 75 mL intravenously every hour 75 mL/hr, IntraVENous, Continuous, Starting on Wed10/12/23 at 0110 Start: 02-18-2023 End: 02-18-2023 dextrose 5 % and sodium chlo ride 0.9 % infusion hydrOXYzine hydrochloride 25 mg oral tablet (20 sources) Antihistamine Start: 02-18-2023 End: 02-20-2023 take 1 capsule by mouth every eight hours as needed hydrOXYzine pamoate (Vistaril) capsule 25 mg Start: 09-07-2022 End: 08-25-2024 take 1 tablet by mouth every eight hours as needed for anxiety and anxiety and anxiety hydrOXYzine HCl (Atarax) 25 MG tablet Indications: Anxiety Take 1 tablet (25 mg) by mouth every 8 hours as needed for anxiety. 90 tablet 3 08/26/2023 08/25/2024 Discontinued Start: 09-07-2022 take 1 tablet by herve th twice daily as needed hydrOXYzine HCl (Atarax) 25 MG tablet Take 25 mg by mouth 2 times daily as needed. 0 09/07/2022 Active insulin lispro 100 unt/ml injectable solution (10 sources) Insulin Analog Start: 09-27-2024 End: 09-27-2024 inject 10 [IU] by subcutaneous injection once 10 Units, SubCUTAneous, Once, On Wed09/27/24 at 1535, For 1 dose Start: 10-12-2023 End: 10-12-2023 Insulin Lispro (Humalog) inj ection 5 Units Start: 10-12-2023 End: 10-12-2023 Insulin Lispro (Humalog) inj ection 0-6 Units Start: 02-19-2023 End: 02-20-2023 Insulin Lispro (Humalog) inj ection 5 Units Start: 02-19-2023 End: 02-20-2023 Insulin Lispro (Humalog) inj ection 0-6 Units 1 ml ketorolac tromethamine 30 mg/ml cartridge (2 sources) Nonsteroidal Anti-inflammatory Drug, Cyclooxygenase Inhibitor Start: 02-19-2024 End: 02-19-2024 30 mg, IntraVENous, Once, On 02/19/24 at 1140, For 1 dose lactated Ringer's infusion (2 sources) Start: 09-27-2024 End: 09-27-2024 lactated Ringer's infusion magnesium oxide 400 mg oral tablet (2 sources) Start: 05-16-2023 End: 05-16-2023 magnesium oxide (Mag-Ox) tablet 400 mg 100 ml magnesium sulfate 10 mg/ml injection (2 sources) Start: 02-19-2024 End: 02-19-2024 1,000 mg, IntraVENous, at 100 mL/hr, Administer over 1 Hours, Once, On 02/19/24 at 1535, For 1 dose, Recommended infusion rate not to exceed 1,000 mg (milligrams) per hour. meclizine hydrochloride 25 mg oral tablet (2 sources) Antiemetic Start: 05-16-2023 End: 05-16-2023 meclizine (Antivert) tablet 25 mg methylPREDNISolone 125 mg injection (2 sources) Corticosteroid Start: 10-11-2023 End: 10-11-2023 methylPREDNISolone sodium succinate (PF) (SOLU-Medrol) injection 125 mg 2 ml metoclopramide 5 mg/ml prefilled syringe (2 sources) Dopamine-2 Receptor Antagonist Start: 02-19-2024 End: 02-19-2024 10 mg, IntraVENous, Once, On 02/19/24 at 1140, For 1 dose ondansetron ODT (Zofran-ODT) disintegrating tablet 4 mg (4 sources) Start: 10-12-2023 End: 10-12-2023 take 1 tablet by mouth every eight hours as needed for nausea and vomiting ondansetron ODT (Zofran-ODT) disintegrating tablet 4 mg Start: 02-18-2023 End: 02-20-2023 take 1 tablet by mouth every eight hours as needed for nausea and vomiting ondansetron ODT (Zofran-ODT) disintegrating tablet 4 mg polyethylene glycol 3350 48201 mg powder for oral solution (4 sources) Osmotic Laxative Start: 10-12-2023 End: 10-12-2023 take 17 g by mouth every twenty-four hours as needed for constipation 17 g, Oral, Daily PRN, constipation, Starting on Wed10/12/23 at 0107, 1st line for treatment of constipation - give scheduled if no bowel movement in past 24 hours. Start: 02-18-2023 End: 08-12-2023 take 17 g by mouth every twenty-four hours as needed for constipation polyethylene glycol (PEG) 3350 (Miralax) packet 17 g potassium chloride 20 meq powder for oral solution (2 sources) Start: 10-12-2023 End: 10-12-2023 take 1 [oz_av] by mouth once 40 mEq, Oral, Once, On Wed10/12/23 at 0110, For 1 dose, Dissolve each packet in 4 ounces of water = 5 mEq per 1 oz fluid. predniSONE 20 mg oral tablet (2 sources) Start: 10-01-2023 End: 11-11-2023 predniSONE (Deltasone) 20 MG tablet Start: 06-14-2020 End: 06-19-2020 take 1 tablet by mouth once daily predniSONE (DELTASONE) 20 MG tablet Take 1 tablet by mouth daily for 5 days 5 tablet 0 06/14/2020 06/19/2020 Active 2 ml prochlorperazine 5 mg/ml injection (2 sources) Phenothiazine Start: 12-07-2022 End: 12-07-2022 prochlorperazine (Compazine) injection 10 mg 3 ml insulin, regular, human 500 unt/ml pen injector (20 sources) Insulin Start: 02-20-2023 End: 06-30-2024 inject 20 [IU] by subcutaneous injection in the morning HumuLIN R U-500 KWIKPEN 500 UNIT/ML CONCENTRATED injection Inject 20 Units under the skin in the morning and 20 Units in the evening. Inject before meals. 2.4 mL 10/12/2023 06/30/2024 Discontinued (Cost of medication) Start: 10-20-2022 End: 02-20-2023 inject 160 [IU] by subcutaneous injection three times daily before mealtime, then inject 30 [IU] by subcutaneous injection at breakfast, then inject 120 [IU] by subcutaneous injection at dinner HumuLIN R U-500 KWIKPEN 500 UNIT/ML CONCENTRATED injection Inject under the skin 3 times daily (before meals). 160 units at breakfast, 30 units with lunch and 120 units with dinner 0 10/20/2022 02/20/2023 Discontinued (Reorder) Start: 10-20-2022 HumuLIN R U-50 0 KWIKPEN 500 UNIT/ML CONCENTRATED injection Inject 500 Units under the skin in the morning and 500 Units at noon and 500 Units in the evening. Inject before meals. 0 10/20/2022 Active Start: 02-16-2022 Insulin Regula r Hum U-500 Conc Active 130 UNIT SC AT BEDTIME February 16, 2022 2:34pm 160 units before breakfast, 30 units before lunch, and 130 units before dinner Start: 02-16-2022 Insulin Regula r Hum U-500 Conc Active 30 UNIT SC WITH LUNCH February 16, 2022 2:34pm 160 units before breakfast, 30 units before lunch, and 130 units before dinner Start: 02-16-2022 Insulin Regula r Hum U-500 Conc Active 160 UNIT SC WITH BREAKFAST February 16, 2022 2:33pm 160 units before breakfast, 30 units before lunch, and 130 units before dinner Start: 06-05-2021 End: 02-16-2022 Insulin Regular Hum U-500 Co nc Discontinued 15 UNIT SC WITH LUNCH June 05, 2021 12:00am February 16, 2022 2:34pm Start: 06-05-2021 End: 02-16-2022 Insulin Regular Hum U-500 Co nc Discontinued 90 UNIT SC AT BEDTIME June 05, 2021 12:00am February 16, 2022 2:34pm Start: 07-29-2020 End: 02-16-2022 inject 120 [IU] by subcutaneous injection before breakfast, then inject 15 [IU] by subcutaneous injection before lunch, then inject 90 [IU] by subcutaneous injection before dinner Insulin Regular Hum U-500 Conc Discontinued 120 UNIT SQ WITH BREAKFAST July 29, 2020 12:00am February 16, 2022 2:34pm 120 units before breakfast, 15 units before lunch, and 90 units before dinner Start: 06-05-2020 insulin regula r human (HUMULIN R U-500 KWIKPEN) 500 UNIT/ML SOPN concentrated injection pen Indications: Uncontrolled type 2 diabetes mellitus with microalbuminuria, with long-term current use of insulin (HCC) , nursing home current use of insulin (HCC) , Uncontrolled type 2 diabetes mellitus with complication (HCC) inject 120 units before breakfast, 15 units before lunch, and 90 units before dinner 18 mL 8 06/05/2020 Active Start: 01-15-2020 insulin regula r human (HUMULIN R U-500 KWIKPEN) 500 UNIT/ML SOPN concentrated injection pen Indications: Uncontrolled type 2 diabetes mellitus with microalbuminuria, with long-term current use of insulin (HCC) , nursing home current use of insulin (HCC) , Uncontrolled type 2 diabetes mellitus with complication (HCC) inject 130 units before breakfast and 85 units before dinner 18 mL 8 01/15/2020 Active Start: 06-30-2019 insulin regula r human (HUMULIN R U-500 KWIKPEN) 500 UNIT/ML SOPN concentrated injection pen Indications: Uncontrolled type 2 diabetes mellitus with microalbuminuria, with long-term current use of insulin (HCC) , nursing home current use of insulin (HCC) inject 130 units before breakfast and 65 units before dinner 18 mL 8 06/30/2019 Active 50 ml sodium chloride 9 mg/m l injection (16 sources) Start: 09-27-2024 End: 09-27-2024 1,000 mL, IntraVENous, at 1, 000 mL/hr, Administer over 1 Hours, Once, On Wed09/27/24 at 1545, For 1 dose Start: 02-19-2024 End: 02-19-2024 1,000 mL, IntraVENous, at 1, 000 mL/hr, Administer over 1 Hours, Once, On 02/19/24 at 1140, For 1 dose Start: 10-12-2023 End: 10-12-2023 sodium chloride 0.9 % infusi on Start: 05-16-2023 End: 05-16-2023 sodium chloride 0.9 % bolus 1,000 mL Start: 02-18-2023 End: 02-20-2023 sodium chloride 0.9 % infusi on Start: 02-18-2023 End: 02-20-2023 take 5-40 mL intravenously every twelve hours sodium chloride 0.9% (NS) flush 5-40 mL Start: 12-07-2022 End: 12-07-2022 sodium chloride 0.9 % bolus 1,000 mL valproate (Depacon) 500 mg i n sodium chloride 0.9 % 100 mL IVPB (2 sources) Start: 02-19-2024 End: 02-19-2024 500 mg, IntraVENous, at 100 mL/hr, Administer over 60 Minutes, Once, On 02/19/24 at 1600, For 1 dose Problems Active Problems Problem Classification Problem Date Documented Da te Episodic/Chronic Abdominal pain (20 sources) Abdominal pain; Translations: [Unspecified abdominal pain] Onset: 10-12-2023 Resolved: 11-11-2023 11-11-2023 Episodic Acute and unspecified renal failure (2 sources) Acute renal failure syndrome; Translations: [Acute kidney failure, unspecified] 09-27-2024 Episodic Administrative/social admission (10 sources) Financial problem; Translations: [Problem related to housing and economic circumstances, unspecified] Onset: 08-01-2024 08-01-2024 Episodic Anxiety disorders (20 sources) Anxiety disorder, unspecified; Translations: [Anxiety] Onset: 2018 07-01-2018 Chronic Chronic obstructive pulmonary disease and bronchiectasis (20 sources) Chronic obstructive lung disease; Translations: [Chronic obstructive pulmonary disease, unspecified] Onset: 07-15-2020 04-24-2022 Chronic Coagulation and hemorrhagic disorders (20 sources) Platelet count below reference range; Translations: [Thrombocytopenia, unspecified] Onset: 02-16-2023 Chronic Coronary atherosclerosis and other heart disease (2 sources) Unstable angina; Translations: [Unstable angina] Onset: 2018 Chronic Deficiency and other anemia (20 sources) Pancytopenia; Translations: [Other pancytopenia] Onset: 11-11-2023 09-22-2023 Chronic Deficiency and other anemia (3 sources) Other pancytopenia; Translations: [Other pancytopenia (HCC)] Onset: 11-11-2023 Chronic Diabetes mellitus with complications (20 sources) Type 2 diabetes mellitus with hyperglycemia; Translations: [Hyperglycemia due to type 2 diabetes mellitus] Onset: 2018 06-02-2018 Chronic Diabetes mellitus without complication (20 sources) Type 2 diabetes mellitus; Translations: [Type 2 diabetes mellitus without complication] Onset: 02-19-2015 10-28-2018 Chronic Diseases of mouth; excluding dental (14 sources) Lesion of lip; Translations: [Diseases of lips] Onset: 08-26-2023 08-26-2023 Episodic Diseases of white blood cells (20 sources) Lymphocytopenia; Translations: [Lymphocytopenia] Onset: 02-16-2023 02-16-2023 Chronic Disorders of lipid metabolism (20 sources) Hyperlipidemia, unspecified; Translations: [Hyperlipidemia] Onset: 07-20-2016 2018 Chronic E Codes: Fall (2 sources) Fall; Translations: [Unspecified fall, initial encounter] 01-15-2023 Episodic Esophageal disorders (20 sources) Gastro-esophageal reflux disease without esophagitis; Translations: [Gastroesophageal reflux disease without esophagitis] Onset: 07-20-2016 2018 Chronic Essential hypertension (20 sources) Essential (primary) hypertension; Translations: [Essential hypertension] Onset: 02-18-2018 10-31-2018 Chronic Headache; including migraine (20 sources) Migraine without aura, not refractory ; Translations: [Migraine without aura, not intractable, without status migrainosus] Onset: 05-16-2015 05-16-2015 Chronic Immunizations and screening for infectious disease (1 source) Encounter for observation for suspected exposure to other biological agents ruled out; Translations: [Lab test negative for COVID-19 virus] Episodic Mood disorders (20 sources) Depressive disorder; Translations: [Depression] Onset: 01-29-2015 Resolved: 11-11-2023 2018 Chronic Mycoses (5 sources) Candidiasis; Translations: [Candidiasis, unspecified] Onset: 10-24-2024 02-04-2023 Episodic Nutritional deficiencies (20 sources) Vitamin D deficiency; Translations: [Vitamin D deficiency, unspecified] Onset: 11-10-2023 11-10-2023 Chronic Nutritional deficiencies (13 sources) Cobalamin deficiency; Translations: [Deficiency of other specified B group vitamins] Onset: 08-01-2024 08-01-2024 Episodic Osteoarthritis (20 sources) Unspecified osteoarthritis, unspecified site; Translations: [Degenerative joint disease involving multiple joints] Onset: 2018 01-15-2020 Chronic Other aftercare (2 sources) nursing home (current) use of insulin; Translations: [nursing home (current) use of insulin] Onset: 2018 Episodic Other circulatory disease (7 sources) Respiratory tract congestion; Translations: [Nasal congestion] Episodic Other connective tissue disease (2 sources) Pain of left hand; Translations: [Pain in left hand] 01-15-2023 Episodic Other inflammatory condition of skin (2 sources) Intertrigo; Translations: [Erythema intertrigo] 02-26-2024 Episodic Other injuries and conditions due to external causes (2 sources) Angioedema; Translations: [Angioneurotic edema, initial encounter] Episodic Other liver diseases (20 sources) Cirrhosis of liver; Translations: [Other cirrhosis of liver] Onset: 04-19-2023 04-21-2023 Chronic Other liver diseases (2 sources) Other cirrhosis of liver; Translations: [Other cirrhosis of liver (HCC)] Onset: 11-11-2023 Chronic Other liver diseases (1 source) Unspecified cirrhosis of liver; Translations: [Unspecified cirrhosis of liver] Onset: 12-06-2024 Chronic Other lower respiratory disease (1 source) Cough; Translations: [Cough] Episodic Other lower respiratory disease (1 source) Dyspnea; Translations: [SOB (shortness of breath)] Episodic Other lower respiratory disease (1 source) H/O: pneumonia; Translations: [Hx of bacterial pneumonia] Episodic Other non-traumatic joint disorders (2 sources) Pain of left wrist; Translations: [Pain in left wrist] 01-15-2023 Episodic Other non-traumatic joint disorders (2 sources) Shoulder pain; Translations: [Pain in left shoulder] 01-15-2023 Episodic Other nutritional; endocrine; and metabolic disorders (2 sources) Morbid (severe) obesity due to excess calories; Translations: [Morbid (severe) obesity due to excess calories] Onset: 2018 Chronic Other nutritional; endocrine; and metabolic disorders (2 sources) Body mass index (BMI) 45.0-49.9, adult; Translations: [Body mass index (BMI) 45.0-49.9, adult] Onset: 2018 Chronic Other nutritional; endocrine; and metabolic disorders (20 sources) Severe obesity; Translations: [Morbid (severe) obesity due to excess calories] Onset: 10-20-2017 10-20-2017 Chronic Other nutritional; endocrine; and metabolic disorders (4 sources) H/O: diabetes mellitus; Translations: [Personal history of other endocrine, nutritional and metabolic disease] Episodic Other screening for suspected conditions (not mental disorders or infectious disease) (20 sources) Patient encounter status; Translations: [Encounter for screening for malignant neoplasm of respiratory organs] Onset: 04-19-2023 Episodic Phlebitis; thrombophlebitis and thromboembolism (1 source) Portal vein thrombosis; Translations: [Portal vein thrombosis] Onset: 12-12-2024 Episodic Residual codes; unclassified (20 sources) Obstructive sleep apnea syndrome; Translations: [Obstructive sleep apnea (adult) (pediatric)] Onset: 10-31-2018 10-31-2018 Chronic Residual codes; unclassified (1 source) Generalized aches and pains; Translations: [Body aches] Episodic Residual codes; unclassified (2 sources) Face goes red; Translations: [Flushing] 09-27-2024 Episodic Residual codes; unclassified (2 sources) Pain, unspecified; Translations: [Pain, unspecified] Onset: 10-24-2024 Episodic Screening and history of mental health and substance abuse codes (11 sources) Personal history of nicotine dependence; Translations: [Tobacco use and exposure - finding] Onset: 2018 Episodic Syncope (2 sources) Near syncope; Translations: [Syncope and collapse] 02-13-2023 Episodic Unclassified (1 source) Low back pain, unspecified; Translations: [Low back pain, unspecified] Onset: 11-08-2024 Past or Other Problems Problem Classification Problem Date Documented Da te Episodic/Chronic Abdominal hernia (20 sources) Incisional hernia; Translations: [Incisional hernia without obstruction or gangrene] Onset: 12-03-2022 11-10-2023 Episodic Diabetes mellitus without complication (20 sources) Hyperglycemia; Translations: [Acute hyperglycemia] Onset: 01-15-2020 Resolved: 11-11-2023 01-15-2020 Episodic Fluid and electrolyte disorders (20 sources) Hypo-osmolality and hyponatremia; Translations: [Hyponatremia] Onset: 2018 Resolved: 08-01-2024 2018 Episodic Genitourinary symptoms and ill-defined conditions (20 sources) Proteinuria; Translations: [Proteinuria, unspecified] Onset: 01-15-2020 Resolved: 11-11-2023 01-15-2020 Episodic Headache; including migraine (20 sources) Headache; Translations: [Headache disorder] Onset: 11-10-2023 11-10-2023 Episodic Mood disorders (11 sources) Major depressive disorder, single episode, unspecified; Translations: [Mood disorders] Onset: 2018 08-01-2024 Nonspecific chest pain (20 sources) Chest pain; Translations: [Chest pain, unspecified] Onset: 04-14-2018 Resolved: 11-11-2023 04-14-2018 Episodic Other connective tissue disease (20 sources) Pain in limb; Translations: [Pain in unspecified limb] Onset: 11-10-2023 Resolved: 08-01-2024 11-10-2023 Episodic Other endocrine disorders (20 sources) Hypoglycemia; Translations: [Hypoglycemia, unspecified] Onset: 02-18-2023 Resolved: 08-01-2024 02-18-2023 Chronic Other lower respiratory disease (1 source) Shortness of breath; Translations: [Shortness of breath] Onset: 05-17-2024 Episodic Other non-traumatic joint disorders (20 sources) Pain in left knee; Translations: [Pain in joint, lower leg] Onset: 02-16-2023 Resolved: 11-11-2023 02-16-2023 Episodic Other nutritional; endocrine; and metabolic disorders (20 sources) Body mass index 30+ - obesity; Translations: [Obesity, unspecified] Onset: 11-10-2023 Resolved: 11-11-2023 11-11-2023 Chronic Other skin disorders (20 sources) Lip swelling; Translations: [Localized swelling, mass and lump, head] Onset: 12-09-2022 Resolved: 02-16-2023 Episodic Other upper respiratory infections (20 sources) Acute sinusitis; Translations: [Acute sinusitis, unspecified] Onset: 11-10-2023 Resolved: 11-11-2023 11-11-2023 Episodic Respiratory failure; insufficiency; arrest (adult) (6 sources) Acute respiratory failure; Translations: [Acute respiratory failure] Onset: 10-28-2018 Resolved: 04-08-2020 10-28-2018 Episodic Skin and subcutaneous tissue infections (20 sources) Cellulitis of face; Translations: [Cellulitis of face] Onset: 08-26-2023 Resolved: 11-11-2023 02-04-2023 Episodic Spondylosis; intervertebral disc disorders; other back problems (3 sources) Backache; Translations: [Dorsalgia, unspecified] Onset: 04-22-2023 Resolved: 10-24-2024 10-24-2024 Episodic Sprains and strains (20 sources) Sprain of left knee; Translations: [Sprain of unspecified site of left knee, initial encounter] Onset: 08-26-2023 Resolved: 11-11-2023 02-06-2023 Episodic Viral infection (9 sources) Disease caused by 2019-nCoV; Translations: [COVID-19] Onset: 04-13-2024 Episodic Results Test Name Value Interpretation Reference Range Facility MR/PATOmar 12-14-2024 MR[facility] [address] [place] [address] PAT - Anesthesia 12/14/24 1519 MR#: [id number] Acct: [id number] Name: MELANIE CAREY Rep #: [id number] : 1965 59 From: Raymond Garrett MD PCP: Dr. 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 When Was Last Pacemaker Check QUESTION #4 FULL TEXT: You/Your Family Experience fever (hyperthermia) with Anesthesia Last Oral Intake Last Oral intake: Last Oral Intake NPO since Meds taken in AM with sips of water? 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 - fisheries manager: PONV - fisheries manager Female Yes 12/14/24 10:48 HX of Motion Sickness No 12/14/24 10:48 HX of N/V After Surgery No 12/14/24 10:48 Non-Smoker Yes 12/14/24 10:48 Duration of Surgery greater No 12/14/24 10:48 than 60 minutes Number of Risk Factors 2 12/14/24 10:48 PONV Score Moderate Risk 12/14/24 10:48 Height Weight Height Weight: Anesthesia: Height Weight Height 5 ft 5 in 11/15/24 09:05 Respiratory Assessment Respiratory Assessment - fisheries manager: Respiratory Tract Infection Hx - fisheries manager Hx Respiratory Tract Infection No 12/14/24 10:48 STOP Sleep Apnea STOP Sleep Apnea - fisheries manager: STOP Sleep Apnea - fisheries manager Hx Hypertension No 12/14/24 10:48 Hx Sleep Apnea Yes: MACHINE BROKE, NEVER 12/14/24 10:48 REPLACED CPAP Yes 12/14/24 10:48 BIPAP No 12/14/24 10:48 Do you snore loudly (louder than talking or can be heard Do you often feel tired/ fatigued/ sleepy during daytime? Has anyone observed you stop breathing during sleep? STOP Results Positive 12/14/24 10:48 QUESTION #5 FULL TEXT : Do you snore loudly (louder than talking or can be heard through closed doors)? 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 Specify any problems Hx of Preganancy in last 3 N/A 12/14/24 10:48 Months Nurse Filling Out Transfusion NBUCHER 12/14/24 10:48 Questions: Date: 12/14/24 12/14/24 10:48 Time: 10:50 12/14/24 10:48 Patient unable to answer at this time (ie. confused, unrespo /Reproduction History /Reproductive History - fisheries manager: /Reproductive Hx- fisheries manager Hx Now No 12/14/24 10:48 Gestational Age (in weeks): EDC: Hx Hx Para Hx Section SAB No 12/14/24 10:48 PFSH Medical History (Updated 12/14/24 @ 10:59 by Holly Davis) Arthritis Anemia High cholesterol History of Crohn's disease History of IBS GERD (gastroesophageal reflux disease) Sleep apnea PVT (portal vein thrombosis) Pancytopenia Liver disease Loss of hearing Wears glasses Wears dentures Post-menopausal History of steroid therapy Insulin dependent diabetes mellitus Restless legs Back pain Dietary restriction Heartburn History of ulceration Colitis Former smoker CPAP (continuous positive airway pressure) dependence Shortness of breath on exertion Asthma Chronic cough Leg cramps History of edema History of echocardiogram History of stress test Cardiology follow-up encounter Disease of gingiva due to infection Incisional hernia Lung infection MDD (major depressive disorder) Allergies Contact with and (more content not included)... [facility] [id number] 12-13-2024 [id number] Called and spoke johny Espinosa at [facility] pharmacy. It appears that the PA was going through 360 days instead of 365. Francisca was able to get it to go through at no cost. Patient called and notified that it was all taken care of and should be able to go pick it up at [facility]. [facility] 36on 12-13-2024 36 I am honestly not bourgeois re what the issue is. When reviewing the prescription I do not see any abnormalities. Will see if she does well using her phone as the reader. If she has any issues with that please let us know and we will see what we need to do to get the reader covered by her insurance. [facility] [id number] 12-12-2024 [id number] Please update RX. [facility] [id number] 12-11-2024 [id number] Thank you for verify ing. Rx sent for the [employer] linda 3 reader as well as sensors to the requested pharmacy. [facility] [id number] Pended. [facility] 36on 12-11-2024 36 Please verify with Binh basurto the exact brand of [employer] she is needing me to send. I want to make sure I send in the correct item for her. Thank you. [facility] Basic Metabolic Profile (BMP )on 12-08-2024 BUN/CRE 14.0 RATIO Normal 04-[address] [facility] Comment on above: Performed By: #### L 500.3400, L500.2500, L100.0100 ####[facility] [address] [place], [address] Calcium [Mass/Vol] 9.7 mg/dL Normal 7.6-11.0 [facility] Comment on above: Performed By: #### L 500.3400, L500.2500, L100.0100 ####[facility] [address] [place], [address] Chloride [Moles/Vol] 100 mmol/L Normal 98-108 [facility] Comment on above: Performed By: #### L 500.3400, L500.2500, L100.0100 ####[facility] [address] [place], [address] CO2 [Moles/Vol] 23.9 mmol/L Normal 21.0-32.[address] [facility] Comment on above: Performed By: #### L 500.3400, L500.2500, L100.0100 ####[facility] [address] [place], [address] Creatinine [Mass/Vol] 1.12 mg/dL Normal 0.70-1.[address] [facility] Comment on above: Performed By: #### L 500.3400, L500.2500, L100.0100 ####[facility] [address] [place], [address] GAP 10 Normal 5-[address] [facility] Comment on above: Performed By: #### L 500.3400, L500.2500, L100.0100 ####[facility] [address] [place], [address] GFR/1.73 sq M.predicted among non-blacks MDRD (S/P/Bld) [Vol rate/Area] 57 mL/min/{1.73_m2} Low >[address] [facility] Comment on above: Result Comment: mL/m in/1.73m2 CKD-EPI Creatinine Equation (2020) Performed By: #### L 500.3400, L500.2500, L100.0100 ####[facility] [address] [place], [address] Glucose [Mass/Vol] 272 mg/dL High 70-99 [facility] Comment on above: Performed By: #### L 500.3400, L500.2500, L100.0100 ####[facility] [address] [place], [address] Potassium [Moles/Vol] 4.8 mmol/L Normal 3.3-5.[address] [facility] Comment on above: Performed By: #### L 500.3400, L500.2500, L100.0100 ####[facility] [address] [place], [address] Sodium [Moles/Vol] 135 mmol/L Normal 133-145 [facility] Comment on above: Performed By: #### L 500.3400, L500.2500, L100.0100 ####[facility] [address] [place], [address] Urea nitrogen [Mass/Vol] 16 mg/dL Normal 4-[address] [facility] Comment on above: Performed By: #### L 500.3400, L500.2500, L100.0100 ####[facility] [address] [place], [address] CBC W/Diff, Automatedon 05-3 0-2024 Absolute Lymph 0.55 X10 3/uL Low 0.83-4.[address] [facility] Comment on above: Performed By: #### L 500.3400, L500.2500, L100.0100 ####[facility] [address] [place], [address] Absolute Neut 2.4 X10 3/uL Normal 2.0-7.[address] [facility] Comment on above: Performed By: #### L 500.3400, L500.2500, L100.0100 ####[facility] [address] [place], [address] Basophils/100 WBC (Bld) 0.3 % Normal 0-[address] [facility] Comment on above: Performed By: #### L 500.3400, L500.2500, L100.0100 ####[facility] [address] [place], [address] Eosinophils/100 WBC (Bld) 0.0 % Normal 0-[address] [facility] Comment on above: Performed By: #### L 500.3400, L500.2500, L100.0100 ####[facility] [address] [place], [address] Erythrocyte distribution width (RBC) [Ratio] 15.3 % High 11.6-14.[address] [facility] Comment on above: Performed By: #### L 500.3400, L500.2500, L100.0100 ####[facility] [address] [place], [address] Hematocrit (Bld) [Volume fraction] 37.3 % Normal 37-[address] [facility] Comment on above: Performed By: #### L 500.3400, L500.2500, L100.0100 ####[facility] [address] [place], [address] Hemoglobin (Bld) [Mass/Vol] 12.2 g/dL Normal 12.0-15.[address] [facility] Comment on above: Performed By: #### L 500.3400, L500.2500, L100.0100 ####[facility] [address] [place], [address] IG% 0.300 Normal 0.0-0.[address] [facility] Comment on above: Result Comment: IG% - Immature Granulocytes (promyelocytes, myelocytes and metamyelocytes) > 1% indicates that a LEFT SHIFT is Present. Performed By: #### L 500.3400, L500.2500, L100.0100 ####[facility] [address] [place], [address] Lymphocytes/100 WBC (Bld) 16.4 % Low 19-[address] [facility] Comment on above: Performed By: #### L 500.3400, L500.2500, L100.0100 ####[facility] [address] [place], [address] MCH (RBC) [Entitic mass] 27.9 pg Normal 27.0-32.[address] [facility] Comment on above: Performed By: #### L 500.3400, L500.2500, L100.0100 ####[facility] [address] [place], [address] MCHC (RBC) [Mass/Vol] 32.7 g/dL Normal 32-[address] [facility] Comment on above: Performed By: #### L 500.3400, L500.2500, L100.0100 ####[facility] [address] [place], [address] MCV (RBC) [Entitic vol] 85.4 fL Normal 81-[address] [facility] Comment on above: Performed By: #### L 500.3400, L500.2500, L100.0100 ####[facility] [address] [place], [address] Monocytes/100 WBC (Bld) 10.7 % High 0-[address] [facility] Comment on above: Performed By: #### L 500.3400, L500.2500, L100.0100 ####[facility] [address] [place], [address] Neutrophils/100 WBC (Bld) 72.3 % High 47-[address] [facility] Comment on above: Performed By: #### L 500.3400, L500.2500, L100.0100 ####[facility] [address] [place], [address] Nucleated RBC (Bld) [#/Vol] 0 10*3/uL Normal 0-[address] [facility] Comment on above: Performed By: #### L 500.3400, L500.2500, L100.0100 ####[facility] [address] [place], [address] Platelet mean volume (Bld) [Entitic vol] 10.9 fL Normal 6.2-12.[address] [facility] Comment on above: Performed By: #### L 500.3400, L500.2500, L100.0100 ####[facility] [address] [place], [address] Platelets (Bld) [#/Vol] 51 10*3/uL Low 150-[address] [facility] Comment on above: Performed By: #### L 500.3400, L500.2500, L100.0100 ####[facility] [address] [place], [address] RBC (Bld) [#/Vol] 4.37 10*6/uL Normal 4.2-5.4 [facility] Comment on above: Performed By: #### L 500.3400, L500.2500, L100.0100 ####[facility] [address] [place], [address] RDW SD 47.3 fl High 35.1-43.[address] [facility] Comment on above: Performed By: #### L 500.3400, L500.2500, L100.0100 ####[facility] [address] [place], [address] WBC (Bld) [#/Vol] 3.4 10*3/uL Low 4.4-11.0 [facility] Comment on above: Performed By: #### L 500.3400, L500.2500, L100.0100 ####[facility] [address] [place], [address] Liver Profileon 12-08-2024 Albumin [Mass/Vol] 4.0 g/dL Normal 3.5-5.0 [facility] Comment on above: Performed By: #### L 500.3400, L500.2500, L100.0100 ####[facility] [address] [place], [address] ALK PHOS 116 U/L High 35-[address] [facility] Comment on above: Performed By: #### L 500.3400, L500.2500, L100.0100 ####[facility] [address] [place], [address] ALT [Catalytic activity/Vol] 26 U/L Normal <=[address] [facility] Comment on above: Performed By: #### L 500.3400, L500.2500, L100.0100 ####[facility] [address] [place], [address] AST [Catalytic activity/Vol] 32 U/L Normal <=[address] [facility] Comment on above: Performed By: #### L 500.3400, L500.2500, L100.0100 ####[facility] [address] [place], [address] Bilirubin [Mass/Vol] 1.03 mg/dL Normal 0.00-1.30 [facility] Comment on above: Performed By: #### L 500.3400, L500.2500, L100.0100 ####[facility] [address] [place], [address] Bilirubin.direct [Mass/Vol] 0.40 mg/dL High 0.00-0.[address] [facility] Comment on above: Performed By: #### L 500.3400, L500.2500, L100.0100 ####[facility] [address] [place], [address] Globulin (S) [Mass/Vol] 3.6 g/dL Normal 2.2-4.[address] [facility] Comment on above: Performed By: #### L 500.3400, L500.2500, L100.0100 ####[facility] [address] [place], [address] T PROT 7.6 g/dL Normal 5.9-8.[address] [facility] Comment on above: Performed By: #### L 500.3400, L500.2500, L100.0100 ####[facility] [address] [place], [address] CBC W/Diff, Automatedon 11-10 PLT EST SLT DEC Normal ADEQ [facility] Comment on above: Performed By: #### L 500.3400, L100.0100 ####[facility] [address] [place], [address] SMEAR COMMENT Normal [facility] Comment on above: Result Comment: LYMP HOPENIA Performed By: #### L 500.3400, L100.0100 ####[facility] [address] [place], [address] Liver Profileon 11-29-2024 Albumin [Mass/Vol] 3.8 g/dL Normal 3.5-5.0 [facility] Comment on above: Performed By: #### L 500.3400, L100.0100 ####[facility] [address] [place], [address] ALK PHOS 120 U/L High 35-[address] [facility] Comment on above: Performed By: #### L 500.3400, L100.0100 ####[facility] [address] [place], [address] ALT [Catalytic activity/Vol] 25 U/L Normal <=[address] [facility] Comment on above: Performed By: #### L 500.3400, L100.0100 ####[facility] [address] [place], [address] AST [Catalytic activity/Vol] 27 U/L Normal <=[address] [facility] Comment on above: Performed By: #### L 500.3400, L100.0100 ####[facility] [address] [place], [address] Bilirubin [Mass/Vol] 0.84 mg/dL Normal 0.00-1.30 [facility] Comment on above: Performed By: #### L 500.3400, L100.0100 ####[facility] [address] [place], [address] Bilirubin.direct [Mass/Vol] 0.37 mg/dL High 0.00-0.[address] [facility] Comment on above: Performed By: #### L 500.3400, L100.0100 ####[facility] [address] [place], [address] Globulin (S) [Mass/Vol] 3.6 g/dL Normal 2.2-4.[address] [facility] Comment on above: Performed By: #### L 500.3400, L100.0100 ####[facility] [address] [place], [address] T PROT 7.4 g/dL Normal 5.9-8.[address] [facility] Comment on above: Performed By: #### L 500.3400, L100.0100 ####[facility] [address] [place], [address] CTA Abdomen W/WO Contraston 11-27-2024 CTA Abdomen W/WO Contrast [facility] Imaging Services [address] [place] [address] CTA Abdomen W/WO Contrast MR#: [id number] Acct: [id number] Name: MELANIE CAREY Rep #: [id number] : 1965 F 59 From: Addi Liao MD PCP: Dr. See Ricketts MD Status: DEP CLI Study: CTA Abdomen W/WO Contrast Date of Exam: Exam# [id number] Ordering Dr: Deisi Nath ADDENDUM by Dr. Addi Liao MD on 12/14/24 at 0540 3D post processing was performed and reviewed. Reading Location: [facility] 12/14/24 0541 Date cc: CUTTER ALUMINUM SHEET-C Deisi Nath; Dr. See Ricketts MD * Signed PROCEDURE: CTA ABDOMEN W/WO CONTRAST 11/27/2024 REASON FOR EXAM: PORTAL THROMBUS ON US, CIRRHOSIS TECHNIQUE: CTA imaging of the abdomen and pelvis with intravenous contrast. Multiplanar and multisequence images were obtained. CONTRAST: 90 mL Isovue 370 One or more dose reduction techniques were used (e.g., Automated exposure control, adjustment of the mA and/or kV according to patient size, use of iterative reconstruction technique). RADIATION DOSE SUMMARY: CTDlvol: 27.3 mGy DLP: 2604 mGycm COMPARISON: Abdominal ultrasound on 11/10/2024, CT abdomen and pelvis 04/19/2023 FINDINGS: Aorta: Mild calcified atherosclerosis. No abdominal aortic aneurysm. Iliac Arteries: Scattered atherosclerotic plaque. No aneurysm or significant stenosis. Celiac: Unremarkable SMA: Unremarkable MIRNA : Unremarkable Right Renal: Unremarkable Left Renal: Unremarkable Other Findings: There is thrombus present at the periphery of the main portal vein (series 3, image 42) and right portal vein (image 38). The main portal vein measures 1.9 cm in diameter. Status post cholecystectomy. Nodular contour of the liver. Marked splenomegaly measuring 23.7 cm in longitudinal dimension. Right-sided fat containing lumbar hernia, unchanged. CT/CTA Abdomen W/WO Contrast IMPRESSION: 1. Thrombus is present within the main and right portal veins, which appears to be partially occlusive. 2. Marked splenomegaly. 3. Nodular contour of the liver, suggestive of fibrosis. Reading Location: [facility] CC: CRISTY Nath; Dr. See Ricketts MD [employer] P[employer] Co[employer] Operator Helper: Signed Normal [facility] Urgent Care Visit Reporton 0 11-25-2024 Urgent Care Visit Report [facility] [address], [address] [place] [address] OFFICE VISIT Date of Service: 11/25/24 MR#: [id number] Acct: [id number] Name: MELANIE CAREY Rep #: [id number] : 1965 Provider: HERMES Pereira Age/Sex: 59/F Location: [facility] Status: Signed Intake Vital Signs 11/15/24 09:05 11/25/24 11:18 Height 5 ft 5 in Weight: 267 lb 6 oz BMI 44.4 BP 120/80 120/86 H Blood Pressure Location Lt brachial Position Sitting Sitting Respiration 16 Pulse 73 83 Pulse Source Monitor Temp 98.3 F 98.4 F Temp Source Oral Pulse Oximetry (%) 96 96 Oxygen Delivery Method room air room air Intake Visit Reasons: CONCERN FOR INFECTION IN JAW/GUMS Accompanied by: Self Allergies cat dander Allergy (Severe, Verified 11/25/24 11:22) Swelling lisinopril Adverse Reaction (Intermediate, Verified 11/25/24 11:22) edema and difficulty breathing Medications ???Medication ???Instructions ???Recorded ???Confirmed ???Type albuterol sulfate 90 mcg/actuation 2 puff inhalation Q6H PRN PRN 11/25/24 History aerosol inhaler Shortness Of Breath labetalol 100 mg tablet 100 mg PO BID 07/29/20 11/25/24 Hi story metformin 1,000 mg tablet 1,000 mg PO BIDCM 07/29/20 5 History bupropion HCl 300 mg 24 hr tablet, 300 mg PO QAM 30 days #30 tabs 0 02/01/23 11/25/24 Rx extended release hydroxyzine HCl 25 mg tablet 25 mg PO TID PRN anxiety #90 tabs 02/01/23 11/25/24 Rx buspirone 10 mg tablet 10 mg PO TID 10/31/24 11/25/24 His tory glimepiride 4 mg tablet 4 mg PO QAM 10/31/24 11/25/24 Hist ory insulin glargine 100 unit/mL 15 unit subcut QAM 10/31/24 History subcutaneous solution (Lantus U-100 Insulin) lactulose 10 gram/15 mL oral 10 g (15 mL) PO QDAY 90 days 10/3111/25/24 Rx solution #1,350 mL mecobalamin (vitamin B12) 10,000 mcg IM 10/31/24 11/25/24 History mcg solution for injection metformin 500 mg tablet 500 mg PO QDAY 10/31/24 11/25/24 H istory rosuvastatin 5 mg tablet 5 mg PO QDAY 10/31/24 11/25/24 His tory tirzepatide 5 mg/0.5 mL 5 mg subcut QWEEK 10/31/24 5 History subcutaneous pen injector (Mounjaro) amoxicillin 500 mg capsule 500 mg PO TID 7 days #21 caps 11/0911/25/24 Rx Nurse's Note: Patient has concerns for infection in her lower gum. Patient states its been going on for a couple days and the last 2 days it got worse. Patient can't wear her bottom denture. Patient states the gland under her jaw line is swollen. [facility] Medical History (Updated 11/25/24 @ 11:47 by HERMES Pereira) PVT (portal vein thrombosis) Pancytopenia Liver disease Loss of hearing Wears glasses Wears dentures Post-menopausal History of steroid therapy Insulin dependent diabetes mellitus Restless legs Back pain Dietary restriction Heartburn History of ulceration Colitis Former smoker CPAP (continuous positive airway pressure) dependence Shortness of breath on exertion Asthma Chronic cough Leg cramps History of edema History of echocardiogram History of stress test Cardiology follow-up encounter Disease of gingiva due to infection Incisional hernia Lung infection MDD (major depressive disorder) Allergies Contact with and (suspected) exposure to other viral communicable diseases URI (upper respiratory infection) Concussion History of tobacco use Encounter for screening for malignant neoplasm of lung in former smoker who quit in past 15 years with 30 pack year history or greater Trochanteric bursitis of left hip Right leg weakness Rectal bleed Hemorrhoids Fatigue Elevated transaminase level COPD (chronic obstructive pulmonary disease) Proteinuria Osteoarthritis Obesity Anxiety Hyperglycemia Hyponatremia Essential hypertension Migraines Depression Thrombocytopenia Surgical History H/O tooth extraction History of incisional hernia repair History of tonsillectomy and adenoidectomy History of endometrial ablation H/O colonoscopy History of cholecystectomy Status post carpal tunnel release H/O cardiac catheterization Family History Sister TBI (traumatic brain injury) Colon cancer Brother Substance abuse Depression Seizures Father Hypertension Prostate cancer Heart disease Arthritis Myocardial infarction Kidney disease Mother Depression Heart disease Diabetes Asthma Osteoporosis Respiratory disease Social History household members: spouse Smoking Status: Former smoker alcohol intake: never substance use type: does not use HPI HPI Details: MELANIE CAREY, is a 59 F who (more content not included)... Normal [facility] 36on 11-20-2024 36 Prescription Request : Mounjaro 5 MG/0.5ML Subcutaneous Solution Pen-injector Last medication check: 10/24/24 Last physical exam: none Next scheduled appointment: 01/09/25 Last date of refill on this medication 10/11/24 ( qty 2ml refill 0) [facility] 36on 11-16-2024 36 I don't have anythin g that I did not disclose . [facility] Oncology Visit Reporton Oncology Visit Report [facility] [address] [place] [address] OFFICE VISIT Date of Service: 11/15/2455 MR#: [id number] Acct: [id number] Name: MELANIE CAREY Rep #: [id number] : 1965 From: Rosales Oviedo MD Age/Sex: 59/F Location: [facility] Status: Signed HPI Subjective Date of Service 02/16/22 Chief Complaint Portal vein thrombosis History of Present Illness 59-year-old female with multiple chronic medical conditions including nonalcoholic cirrhosis complicated with portal hypertension and splenomegaly, diabetes, morbid obesity, obstructive sleep apnea, COPD, hypertension, dyslipidemia, degenerative joint disease, ex-smoker, GERD, history of colitis. She was initially seen in 2019 for a moderate thrombocytopenia felt to be multifactorial and unlikely primarily hematologic and watchful observation was recommended. She subsequently went and saw a test engine operator at [facility] who suggested a bone marrow biopsy but it was never done. In October 2024 she was seen by gastroenterology in [facility] for complicated liver cirrhosis and an abdominal ultrasound showed an incidental finding of a partial nonocclusive thrombus in the portal vein. The patient reports occasional hemorrhoidal bleed when she is constipated but never had hematemesis or melena. Notably, in April [address] scan of the abdomen and pelvis that showed liver cirrhosis, splenomegaly, moderate ascites and paraesophageal varices. She was referred back to [place] [facility] for reconsultation since she did not wish to go back to [facility]. [facility] Medical History (Updated 11/15/24 @ 10:[address] Rosales Oviedo MD) PVT (portal vein thrombosis) Pancytopenia Liver disease Loss of hearing Wears glasses Wears dentures Post-menopausal History of steroid therapy Insulin dependent diabetes mellitus Restless legs Back pain Dietary restriction Heartburn History of ulceration Colitis Former smoker CPAP (continuous positive airway pressure) dependence Shortness of breath on exertion Asthma Chronic cough Leg cramps History of edema History of echocardiogram History of stress test Cardiology follow-up encounter Disease of gingiva due to infection Incisional hernia Lung infection MDD (major depressive disorder) Allergies Contact with and (suspected) exposure to other viral communicable diseases URI (upper respiratory infection) Concussion History of tobacco use Encounter for screening for malignant neoplasm of lung in former smoker who quit in past 15 years with 30 pack year history or greater Trochanteric bursitis of left hip Right leg weakness Rectal bleed Hemorrhoids Fatigue Elevated transaminase level COPD (chronic obstructive pulmonary disease) Proteinuria Osteoarthritis Obesity Anxiety Hyperglycemia Hyponatremia Essential hypertension Migraines Depression Thrombocytopenia Surgical History H/O tooth extraction History of incisional hernia repair History of tonsillectomy and adenoidectomy History of endometrial ablation H/O colonoscopy History of cholecystectomy Status post carpal tunnel release H/O cardiac catheterization Family History Sister TBI (traumatic brain injury) Colon cancer Brother Substance abuse Depression Seizures Father Hypertension Prostate cancer Heart disease Arthritis Myocardial infarction Kidney disease Mother Depression Heart disease Diabetes Asthma Osteoporosis Respiratory disease Social History household members: spouse Smoking Status: Former smoker alcohol intake: never substance use type: does not use ROS Constitutional Constitutional: Reports systems reviewed and no addt'l complaints, except as documented; Denies fever(s) or weight loss Eyes Eyes: Reports systems reviewed and no addt'l complaints, except as documented ENT HEENT: Reports systems reviewed and no addt'l complaints, except as documented; Denies bleeding gums or epistaxis Cardiovascular Cardiovascular: Reports systems reviewed and no addt'l complaints, except as documented Respiratory/Chest Respiratory/Chest: Reports systems reviewed and no addt'l complaints, except as documented and dyspnea on exertion; Denies cough or hemoptysis Gastrointestinal Gastrointestinal: Reports systems reviewed and no addt'l complaints, except as documented, as per HPI, hematochezia and hemorrhoids; Denies change in bowel habits, hematemesis or melena Genitourinary Genitourinary: Denies hematuria Musculoskeletal Musculoskeletal: Reports systems reviewed and no addt'l complaints, except as documented Integumentary Integumentary: Reports systems revi (more content not included)... Normal [facility] Abdomen Limitedon 11-10-2024 [facility] Limited [facility] [address] [place] [address] Abdomen Limited MR#: [id number] Acct: [id number] Name: MELANIE CRAEY Rep #: [id number] : 1965 F 59 From: Paul Gutierrez MD PCP: Dr. See Ricketts MD Status: REG CLI Study: Abdomen Limited Date of Exam: 11/10/24 Exam# [id number] Ordering Dr: Deisi Nath [employer] SHE[employer]- C PROCEDURE: ABDOMEN LIMITED 11/10/2024 REASON FOR EXAM: PANCYTOPENIA, CIRRHOSIS TECHNIQUE: Complete abdominal ultrasound preston-scale images with color doppler. PATIENT PREPARATION: Per protocol FINDINGS: Study is limited by patient body habitus. The visualized pancreas appears atrophic and heterogeneous without evidence of pancreatic ductal dilation seen. The liver measures 17.5 cm and appears heterogeneous and coarsened echotexture. The liver surface contour appears somewhat lobular. No intrahepatic biliary ductal dilation seen. Hepatic color flow is present with flow in the portal vein hepatopetal as expected. There is note of partial nonocclusive thrombus within the portal vein with the portal vein dilated measuring 2.3 -1.7 cm. The splenic vein appears dilated measuring 1.6 cm. Splenomegaly with the spleen measuring 25 x 8.4 x 7.3 cm. Status post cholecystectomy CBD 6 mm The right kidney measures 10.9 x 6.5 x 4.5 cm with a cortical thickness of 1.2 cm. No right hydronephrosis or renal stone seen. No free fluid seen. US/Abdomen Limited IMPRESSION: The liver measures 17.5 cm and appears heterogeneous and coarsened echotexture. The liver surface contour appears somewhat lobular. No intrahepatic biliary ductal dilation seen. Hepatic color flow is present with flow in the portal vein hepatopetal as expected. There is note of partial nonocclusive thrombus within the portal vein with the portal vein dilated measuring 2.3 -1.7 cm. The splenic vein appears dilated measuring 1.6 cm. Splenomegaly with the spleen measuring 25 x 8.4 x 7.3 cm. Reading Location: [facility] CC: [employer]-C Deisi Nath; Dr. See Ricketts MD [employer] Co[employer] Operator Helper: Signed Normal [facility] Inital Evaluation (1) - PTon 11-06-2024 Inital Evaluation (1) - PT [facility] Physical Therapy [facility] [address] [place] [address] [address] [place] [address] / REHABILITATION SERVICES INITIAL EVALUATION MR#: [id number] Acct: [id number] Name: MELANIE CAREY Rep #: [id number] : 1965 59 From: Melany Wright PT, Cert. MDT Referring Dr.: Dr. Robles Ricketts MD Status: RE G RCR Insurance: ANTH SELF PAY INSURANCE Patient's Visit Information Visit Information Visit Information: MELANIE CAREY is a 59 year old F referred to Physical Therapy by Dr. Robles Ricketts MD with a diagnosis of LOW BACK PAIN AND R HIP OA. Date of Evaluation: 11/06/24 Physical Therapist: Melany Wright, PT, Cert MDT Visit Plan Frequency: 2x /Week Duration: 4-6 Weeks Plan: *GAIT TRAINING WITH CANE NEEDED FOR SAFETY ON LEVEL SURFACES AND STEPS IF PATIENT OBTAINS CANE* AQUATIC THERAPY FOR LOW BACK AND R HIP PAIN RELIEF, POSTURE CORRECTION/STRENGTHENING, INSTRUCTION IN APPROPRIATE BODY MECHANICS AND ACTIVITY MODIFICATIONS. DLS STARTING WITH A NEUTRAL SPINE PROGRESSING ROM TOLERATED. BABS LE ROM, STRETCHING AND STRENGTHENING. HEP INSTRUCTION. Subjective Subjective: Work/Leisure: PATIENT WORKS FOR [employer] IN [place] - STATES SHE IS UP AND DOWN THROUGHOUT THE DAY. 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 Disability: NO Present symptoms: BABS LOW BACK PAIN R AND CENTRAL > LEFT. R HIP PAIN. DENIES BABS LE PAIN, NUMBNESS AND TINGLING. R HIP CATCHING. Present since: OFF AND ON FOR SEVERAL YEARS BUT WORSE OVER THE LAST 2 MONTHS AND NOW CONSTANT PAIN. Pain Scale: WORST 10/10, LEAST 2/10 Currently: 4-5/10 Is it getting better, worse or staying the same: STAYING THE SAME Commenced as a result of: NO APPARENT REASON Worse: STANDING MORE THAN 5 MIN, WALKING MORE 5 MIN AND SOMETIMES 1-2 MINUTES, STEPS, LIFTING A GALLON OF MILK OR MORE, GETTING IN/OUT OF SHOWER - STEPPING OVER THE TUB, DOING THE LAUNDRY - GETTING IT DOWN THE STEPS - STANDING AND BENDING TO DO IT. GETTING IN/OUT OF THE CAR, HURTS TO DRIVE TOO. RISING FROM SITTING DEPENDING ON THE TYPE OF CHAIR. RISING FROM LOW TOLIET. Better: MELOXICAM, TYLONOL, IBUPROFEN, TRAMADOL, HEAT, REST - SITTING IN RECLINER WITH LEG REST UP. Disturbed sleep: YES - CAN ONLY SLEEP ON L SIDE - SLEEPING BETWEEN BED AND CHAIR. Previous history/Previous treatment: PHYSICAL THERAPY - YEARS AGO WITH BENEFIT ON LAND. NO CHIROPRACTIC FOR THIS. Treatment this episode: MEDICATION, PAIN INJECTION WITH DR. SANCHEZ 09/26/24 - WITHOUT BENEFIT FOR PAIN AND INCREASED SUGAR. Coughing/sneezing/strainin g: NEGATIVIE FOR INCREASED PAIN. Gait: TIME AND DISTANCE LIMITED. UNSTEADY. NEAR FALLS WHEN STEPPING ON R LE BECAUSE HIP WANTS TO GIVE OUT SOMETIMES. NO FALLS. DOES NOT USE ANY AD'S. THIS PT RECOMMENDED CANE FOR SAFETY AND PAIN RELIEF AND SHE STATES DR. RICKETTS DID TOO. SHE IS GOING TO CONSIDER GETTING ONE. Bowel or Bladder Dysfunction: PATIENT DENIES Accidents: NO Unexplained weight loss: NO Imaging: RECENT LUMBAR X-RAY AND R HIP 09/02/24: IMPRESSION: Mild degenerative changes with no acute osseous abnormality in the lumbar spine. RIGHT HIP: No fracture. No suspicious bone lesion. Normal alignment. Moderate joint space narrowing. Soft tissues are unremarkable. PMH/Recent major surgery: IDDM, HTN, COPD, CIRRHOSIS OF THE LIVER. Objective Objective: Sitting/Standing Posture: L ILIAC CREST HIGHER THAN R IN STANDING. ANTERIOR PELVIC TILT. NO RELEVANT LATERAL LUMBAR SHIFT. Active Correction of posture: ABLE TO PARTIALLY CORRECT BUT UNABLE TO MAINTAIN. CORRECTION INCREASES LBP AND DECREASES C/O R HIP PAIN. Other Observations: THIS PATIENT AMBULATES INDEP'LY INTO PT WITH ANTALGIC GAIT PATTERN WITH MILD LIMP ON R LE, DECREASED BABS STRIDE LENGTH, AND DECREASED CADANCE. NO AD OR LOB. Sensory deficit: BABS LE LIGHT TOUCH SENSATION GROSSLY INTACT AND SYMMETRICAL ROM deficit: BABS HIP EXTERNAL ROTATOR TIGHTNESS, HIP FLEXOR TIGHTNESS. RIGHT HS AND CALF TIGHTNESS > L. R HIP IR TESTING PROVOKES R HIP PAIN. Motor deficit: L HIP 4/5, KNEE 5/5, ANKLE 5/5. R HIP 3+/5, KNEE 4/5, ANKLE 4/5. Reflexes: R QUAD 1+, L QUAD 1+. UNABLE TO ELICIT BABS ACHILLES DTR'S. Dural Signs: POSITIVE R LE AND NEGATIVE L LE. Lumbar mvmt loss: flex - MOD ext - ALLISON R SG - MA L SG - MOD PATIENT C/O INCREASED R LBP AND R HIP PAIN WITH LUMBAR ROM TESTING ALL PLANES EXCEPT LUMBAR EXTENSION BUT SHE HAS VERY LITTLE EXTENSION ROM. PAIN IS NW A RESULT. Core strength: POOR Palpation: PATIENT WITH ACUTE LOWER LUMBAR, SACRAL AND R GREATER TROCH REGION TENDERNESS. TUG TIME = 18.14 SEC WITHOUT AD. 30 STS TEST WITH ONE UE ASSIST ON ARM OF CHAIR = 5 Balance/Special Test Scores Lower Extremity Functional Score: 26 Goals Goal 1:: DECREASE C/O LOW BACK AND R HIP PAIN BY AT LEAST 50% TO EASE ADL'S Goal Time Frame: 4-6 Weeks Goal 2:: PATIENT WILL COMPLETE 8 STANDS IN 30 SECS WITH HANDS ON KNEES TO DEMONSTRATE IMPROV (more content not included)... Normal [facility] RORY w/ Reflex Mult Confirmon 11-03-2024 ANTI-DNA (DS)AB TNP Normal [facility] Comment on above: Performed By: #### L 503.0106, L800.1280, L3890.6202, L100.0100, L300.3900, L3100.5450, L3300.0700, L3890.6301, L3100.0460, L503.6550, L803.2200, L3100.0300, L503.6030, L3890.6102, L500.2500, L500.3400 ####[facility] [id number] [place], [address] ANTI-CHUCKY-[address] TNP [address] [facility] Comment on above: Performed By: #### L 503.0106, L800.1280, L3890.6202, L100.0100, L300.3900, L3100.5450, L3300.0700, L3890.6301, L3100.0460, L503.6550, L803.2200, L3100.0300, L503.6030, L3890.6102, L500.2500, L500.3400 ####[facility] [id number] [facility] [place], [address] ANTI-SS-A TNP Normal [facility] Comment on above: Performed By: #### L 503.0106, L800.1280, L3890.6202, L100.0100, L300.3900, L3100.5450, L3300.0700, L3890.6301, L3100.0460, L503.6550, L803.2200, L3100.0300, L503.6030, L3890.6102, L500.2500, L500.3400 ####[facility] [id number] [facility] [place], [address] AFP, Tumor Markeron 11-03-19 25 AFP TUMOR DWAYNE 2.3 ng/mL Normal 0.0-9.[address] [facility] Comment on above: Order Comment: N Result Comment: [employer] Electrochemiluminescence Immunoassay (ECLIA) Values obtained with different assay methods or kits cannot be used interchangeably. Results cannot be interpreted as absolute evidence of the presence or absence of malignant disease. This test is not interpretable in females. Performed By: #### L 503.0106, L800.1280, L3890.6202, L100.0100, L300.3900, L3100.5450, L3300.0700, L3890.6301, L3100.0460, L503.6550, L803.2200, L3100.0300, L503.6030, L3890.6102, L500.2500, L500.3400 ####[facility] [id number] [facility] [place], [address] Anti-Mitochondrial ABon 10-11 ANTIMITOCHON AB <20.0 Normal 0.0-20.[address] [facility] Comment on above: Result Comment: Nega tive 0.0 - 20.0 Equivocal 20.1 - 24.9 Positive >24.9 Mitochondrial (M2) Antibodies are found in 90-96% of patients with primary biliary cirrhosis. Performed By: #### L 503.0106, L800.1280, L3890.6202, L100.0100, L300.3900, L3100.5450, L3300.0700, L3890.6301, L3100.0460, L503.6550, L803.2200, L3100.0300, L503.6030, L3890.6102, L500.2500, L500.3400 ####[facility] [address] [place], [address] Anti-Smooth Muscle ABSon ANTISMOOTH MUSC 18 Units Normal 0-[address] [facility] Comment on above: Result Comment: Nega tive 0 - 19 Weak positive 20 - 30 Moderate to strong positive >30 Actin Antibodies are found in 52-85% of patients with autoimmune hepatitis or chronic active hepatitis and in 22% of patients with primary biliary cirrhosis. Performed By: #### L 503.0106, L800.1280, L3890.6202, L100.0100, L300.3900, L3100.5450, L3300.0700, L3890.6301, L3100.0460, L503.6550, L803.2200, L3100.0300, L503.6030, L3890.6102, L500.2500, L500.3400 ####[facility] [address] [place], [address] Hepatitis A AB, Totalon 10-11 HEPATITIS A,TOT Positive Abnormal Negative [facility] Comment on above: Result Comment: Comm ent: The HAV total antibody assay detects both IgG and IgM but does not differentiate between them. A negative result suggests susceptibility to infection. A positive result could be due to vaccination, previously resolved infection or active infection. Testing for HAV IgM should be performed if active HAV infection is suspected. [employer] offers profiles that will automatically reflex positive HAV total antibody results to IgM (e.g., panel #[id number] HAV Antibody w/ Rfx). Performed at: [facility] [id number] Emergency Management Program Specialist: Iván Smith PhD, Phone: [phone] Performed By: #### L 503.0106, L800.1280, L3890.6202, L100.0100, L300.3900, L3100.5450, L3300.0700, L3890.6301, L3100.0460, L503.6550, L803.2200, L3100.0300, L503.6030, L3890.6102, L500.2500, L500.3400 ####[facility] [id number] [place], [address] Hepatitis B Core Ab Totalon 11-02-2024 HEP B CORE,TOT Negative Normal Negative [facility] Comment on above: Performed By: #### L 503.0106, L800.1280, L3890.6202, L100.0100, L300.3900, L3100.5450, L3300.0700, L3890.6301, L3100.0460, L503.6550, L803.2200, L3100.0300, L503.6030, L3890.6102, L500.2500, L500.3400 ####[facility] [id number] [place], [address] 36on 11-01-2024 36 Called [facility] for pt to call or check [facility]. XRONet messaged pt Dr. Ricketts's message. Normal [facility] 36on 10-31-2024 36 Rx sent, I changed glimepiride to a 4 mg tablet so she does not need to take 2 of those, it looks like all the other changes she was talking about was already done, Lantus was not sent it was just sent in last week. Normal [facility] 36 Prescription Request : metFORMIN (Glucophage) 1000 MG tablet glimepiride (Amaryl) 2 MG tablet buPROPion XL (Wellbutrin XL) 300 MG 24 hr tablet busPIRone (Buspar) 10 MG tablet labetalol (Normodyne) 100 MG tablet insulin glargine (Lantus SoloStar) 100 UNIT/ML pen Last medication check: 10/24/24 Last physical exam: 08/26/23 Next scheduled appointment: 01/09/25 Last date of refill on this medication Metformin - ( (qty 180 refill 1) Glimepiride - 09/28/24 (no qty or refills ho) Bupropion - 10/03/24 (qty 90 refill 0) Busiprone- 10/03/24 (qty 60 refill 0) Labetalol - 10/03/24 (qty 60 refill 0) Insulin - 10/24/24 (no qty or refills listed) Normal [facility] Basic Metabolic Profile (BMP )on 10-31-2024 BUN/CRE 15.2 RATIO Normal 04-[address] [facility] Comment on above: Performed By: #### L 503.0106, L800.1280, L3890.6202, L100.0100, L300.3900, L3100.5450, L3300.0700, L3890.6301, L3100.0460, L503.6550, L803.2200, L3100.0300, L503.6030, L3890.6102, L500.2500, L500.3400 #### [facility] [address] [place], [address] Calcium [Mass/Vol] 9.5 mg/dL Normal 7.6-11.0 [facility] Comment on above: Performed By: #### L 503.0106, L800.1280, L3890.6202, L100.0100, L300.3900, L3100.5450, L3300.0700, L3890.6301, L3100.0460, L503.6550, L803.2200, L3100.0300, L503.6030, L3890.6102, L500.2500, L500.3400 #### [facility] [address] [place], [place], [phone] ([phone]) Chloride [Moles/Vol] 100 mmol/L Normal 98-108 [facility] Comment on above: Performed By: #### L 503.0106, L800.1280, L3890.6202, L100.0100, L300.3900, L3100.5450, L3300.0700, L3890.6301, L3100.0460, L503.6550, L803.2200, L3100.0300, L503.6030, L3890.6102, L500.2500, L500.3400 #### [facility] [address] [place], [place], [id number] (195) CO2 [Moles/Vol] 23.0 mmol/L Normal 21.0-32.[address] [facility] Comment on above: Performed By: #### L 503.0106, L800.1280, L3890.6202, L100.0100, L300.3900, L3100.5450, L3300.0700, L3890.6301, L3100.0460, L503.6550, L803.2200, L3100.0300, L503.6030, L3890.6102, L500.2500, L500.3400 #### [facility] [address] [place], [place], [id number] Creatinine [Mass/Vol] 1.23 mg/dL High 0.70-1.[address] [facility] Comment on above: Performed By: #### L 503.0106, L800.1280, L3890.6202, L100.0100, L300.3900, L3100.5450, L3300.0700, L3890.6301, L3100.0460, L503.6550, L803.2200, L3100.0300, L503.6030, L3890.6102, L500.2500, L500.3400 #### [facility] [address] [place], [address] GAP 12 Normal 5-[address] [facility] Comment on above: Performed By: #### L 503.0106, L800.1280, L3890.6202, L100.0100, L300.3900, L3100.5450, L3300.0700, L3890.6301, L3100.0460, L503.6550, L803.2200, L3100.0300, L503.6030, L3890.6102, L500.2500, L500.3400 #### [facility] [address] [facility] [place], [address] GFR/1.73 sq M.predicted among non-blacks MDRD (S/P/Bld) [Vol rate/Area] 51 mL/min/{1.73_m2} Low >[address] [facility] Comment on above: Result Comment: mL/m in/1.73m2 CKD-EPI Creatinine Equation (2020) Performed By: #### L 503.0106, L800.1280, L3890.6202, L100.0100, L300.3900, L3100.5450, L3300.0700, L3890.6301, L3100.0460, L503.6550, L803.2200, L3100.0300, L503.6030, L3890.6102, L500.2500, L500.3400 #### [facility] [address] [place], [address] Glucose [Mass/Vol] 161 mg/dL High 70-99 [facility] Comment on above: Performed By: #### L 503.0106, L800.1280, L3890.6202, L100.0100, L300.3900, L3100.5450, L3300.0700, L3890.6301, L3100.0460, L503.6550, L803.2200, L3100.0300, L503.6030, L3890.6102, L500.2500, L500.3400 #### [facility] [address] [place], [address] Potassium [Moles/Vol] 4.3 mmol/L Normal 3.3-5.[address] [facility] Comment on above: Performed By: #### L 503.0106, L800.1280, L3890.6202, L100.0100, L300.3900, L3100.5450, L3300.0700, L3890.6301, L3100.0460, L503.6550, L803.2200, L3100.0300, L503.6030, L3890.6102, L500.2500, L500.3400 #### [facility] [address] [place], [address] Sodium [Moles/Vol] 135 mmol/L Normal 133-145 [facility] Comment on above: Performed By: #### L 503.0106, L800.1280, L3890.6202, L100.0100, L300.3900, L3100.5450, L3300.0700, L3890.6301, L3100.0460, L503.6550, L803.2200, L3100.0300, L503.6030, L3890.6102, L500.2500, L500.3400 #### [facility] [address] [place], [address] Urea nitrogen [Mass/Vol] 19 mg/dL Normal 4-[address] [facility] Comment on above: Performed By: #### L 503.0106, L800.1280, L3890.6202, L100.0100, L300.3900, L3100.5450, L3300.0700, L3890.6301, L3100.0460, L503.6550, L803.2200, L3100.0300, L503.6030, L3890.6102, L500.2500, L500.3400 #### [facility] [address] [place], [place], [phone] (114) CBC W/Diff, Automatedon 04-2 Absolute Lymph 0.54 X10 3/uL Low 0.83-4.[address] [facility] Comment on above: Performed By: #### L 503.0106, L800.1280, L3890.6202, L100.0100, L300.3900, L3100.5450, L3300.0700, L3890.6301, L3100.0460, L503.6550, L803.2200, L3100.0300, L503.6030, L3890.6102, L500.2500, L500.3400 #### [facility] [address] [place], [address] Absolute Neut 2.1 X10 3/uL Normal 2.0-7.[address] [facility] Comment on above: Performed By: #### L 503.0106, L800.1280, L3890.6202, L100.0100, L300.3900, L3100.5450, L3300.0700, L3890.6301, L3100.0460, L503.6550, L803.2200, L3100.0300, L503.6030, L3890.6102, L500.2500, L500.3400 #### [facility] [address] [facility] [place], [address] Basophils/100 WBC (Bld) 0.3 % Normal 0-[address] [facility] Comment on above: Performed By: #### L 503.0106, L800.1280, L3890.6202, L100.0100, L300.3900, L3100.5450, L3300.0700, L3890.6301, L3100.0460, L503.6550, L803.2200, L3100.0300, L503.6030, L3890.6102, L500.2500, L500.3400 #### [facility] [address] [facility] [place], [address] Eosinophils/100 WBC (Bld) 0.0 % Normal 0-[address] [facility] Comment on above: Performed By: #### L 503.0106, L800.1280, L3890.6202, L100.0100, L300.3900, L3100.5450, L3300.0700, L3890.6301, L3100.0460, L503.6550, L803.2200, L3100.0300, L503.6030, L3890.6102, L500.2500, L500.3400 #### [facility] [address] [facility] [place], [place], [id number] (002) Erythrocyte distribution width (RBC) [Ratio] 15.5 % High 11.6-14.[address] [facility] Comment on above: Performed By: #### L 503.0106, L800.1280, L3890.6202, L100.0100, L300.3900, L3100.5450, L3300.0700, L3890.6301, L3100.0460, L503.6550, L803.2200, L3100.0300, L503.6030, L3890.6102, L500.2500, L500.3400 #### [facility] [address] [place], [address] Hematocrit (Bld) [Volume fraction] 36.1 % Low 37-[address] [facility] Comment on above: Performed By: #### L 503.0106, L800.1280, L3890.6202, L100.0100, L300.3900, L3100.5450, L3300.0700, L3890.6301, L3100.0460, L503.6550, L803.2200, L3100.0300, L503.6030, L3890.6102, L500.2500, L500.3400 #### [facility] [address] [place], [address] Hemoglobin (Bld) [Mass/Vol] 11.9 g/dL Low 12.0-15.[address] [facility] Comment on above: Performed By: #### L 503.0106, L800.1280, L3890.6202, L100.0100, L300.3900, L3100.5450, L3300.0700, L3890.6301, L3100.0460, L503.6550, L803.2200, L3100.0300, L503.6030, L3890.6102, L500.2500, L500.3400 #### [facility] [address] [place], [address] IG% 1.600 High 0.0-0.[address] [facility] Comment on above: Result Comment: IG% - Immature Granulocytes (promyelocytes, myelocytes and metamyelocytes) > 1% indicates that a LEFT SHIFT is Present. Performed By: #### L 503.0106, L800.1280, L3890.6202, L100.0100, L300.3900, L3100.5450, L3300.0700, L3890.6301, L3100.0460, L503.6550, L803.2200, L3100.0300, L503.6030, L3890.6102, L500.2500, L500.3400 #### [facility] [address] [place], [address] Lymphocytes/100 WBC (Bld) 17.7 % Low 19-[address] [facility] Comment on above: Performed By: #### L 503.0106, L800.1280, L3890.6202, L100.0100, L300.3900, L3100.5450, L3300.0700, L3890.6301, L3100.0460, L503.6550, L803.2200, L3100.0300, L503.6030, L3890.6102, L500.2500, L500.3400 #### [facility] [address] [place], [address] MCH (RBC) [Entitic mass] 27.5 pg Normal 27.0-32.[address] [facility] Comment on above: Performed By: #### L 503.0106, L800.1280, L3890.6202, L100.0100, L300.3900, L3100.5450, L3300.0700, L3890.6301, L3100.0460, L503.6550, L803.2200, L3100.0300, L503.6030, L3890.6102, L500.2500, L500.3400 #### [facility] [address] [facility] [place], [address] MCHC (RBC) [Mass/Vol] 33.0 g/dL Normal 32-[address] [facility] Comment on above: Performed By: #### L 503.0106, L800.1280, L3890.6202, L100.0100, L300.3900, L3100.5450, L3300.0700, L3890.6301, L3100.0460, L503.6550, L803.2200, L3100.0300, L503.6030, L3890.6102, L500.2500, L500.3400 #### [facility] [address] [facility] [place], [address] MCV (RBC) [Entitic vol] 83.4 fL Normal 81-[address] [facility] Comment on above: Performed By: #### L 503.0106, L800.1280, L3890.6202, L100.0100, L300.3900, L3100.5450, L3300.0700, L3890.6301, L3100.0460, L503.6550, L803.2200, L3100.0300, L503.6030, L3890.6102, L500.2500, L500.3400 #### [facility] [address] [facility] [place], [address] Monocytes/100 WBC (Bld) 11.1 % High 0-[address] [facility] Comment on above: Performed By: #### L 503.0106, L800.1280, L3890.6202, L100.0100, L300.3900, L3100.5450, L3300.0700, L3890.6301, L3100.0460, L503.6550, L803.2200, L3100.0300, L503.6030, L3890.6102, L500.2500, L500.3400 #### [facility] [address] [place], [address] Neutrophils/100 WBC (Bld) 69.3 % Normal 47-[address] [facility] Comment on above: Performed By: #### L 503.0106, L800.1280, L3890.6202, L100.0100, L300.3900, L3100.5450, L3300.0700, L3890.6301, L3100.0460, L503.6550, L803.2200, L3100.0300, L503.6030, L3890.6102, L500.2500, L500.3400 #### [facility] [address] [place], [address] (342) Nucleated RBC (Bld) [#/Vol] 0 10*3/uL Normal 0-[address] [facility] Comment on above: Performed By: #### L 503.0106, L800.1280, L3890.6202, L100.0100, L300.3900, L3100.5450, L3300.0700, L3890.6301, L3100.0460, L503.6550, L803.2200, L3100.0300, L503.6030, L3890.6102, L500.2500, L500.3400 #### [facility] [address] [place], [address] (985) Platelet mean volume (Bld) [Entitic vol] 11.0 fL Normal 6.2-12.[address] [facility] Comment on above: Performed By: #### L 503.0106, L800.1280, L3890.6202, L100.0100, L300.3900, L3100.5450, L3300.0700, L3890.6301, L3100.0460, L503.6550, L803.2200, L3100.0300, L503.6030, L3890.6102, L500.2500, L500.3400 #### [facility] [address] [facility] [place], [address] (599) Platelets (Bld) [#/Vol] 57 10*3/uL Low 150-[address] [facility] Comment on above: Performed By: #### L 503.0106, L800.1280, L3890.6202, L100.0100, L300.3900, L3100.5450, L3300.0700, L3890.6301, L3100.0460, L503.6550, L803.2200, L3100.0300, L503.6030, L3890.6102, L500.2500, L500.3400 #### [facility] [address] [place], [address] RBC (Bld) [#/Vol] 4.33 10*6/uL Normal 4.2-5.4 [facility] Comment on above: Performed By: #### L 503.0106, L800.1280, L3890.6202, L100.0100, L300.3900, L3100.5450, L3300.0700, L3890.6301, L3100.0460, L503.6550, L803.2200, L3100.0300, L503.6030, L3890.6102, L500.2500, L500.3400 #### [facility] [address] [place], [address] RDW SD 46.7 fl High 35.1-43.[address] [facility] Comment on above: Performed By: #### L 503.0106, L800.1280, L3890.6202, L100.0100, L300.3900, L3100.5450, L3300.0700, L3890.6301, L3100.0460, L503.6550, L803.2200, L3100.0300, L503.6030, L3890.6102, L500.2500, L500.3400 #### [facility] [address] [place], [place], [id number] WBC (Bld) [#/Vol] 3.1 10*3/uL Low 4.4-11.0 [facility] Comment on above: Performed By: #### L 503.0106, L800.1280, L3890.6202, L100.0100, L300.3900, L3100.5450, L3300.0700, L3890.6301, L3100.0460, L503.6550, L803.2200, L3100.0300, L503.6030, L3890.6102, L500.2500, L500.3400 #### [facility] [address] [place], [address] Ferritinon 10-31-2024 Ferritin [Mass/Vol] 49 ng/mL Normal 22-378 [facility] Comment on above: Performed By: #### L 503.0106, L800.1280, L3890.6202, L100.0100, L300.3900, L3100.5450, L3300.0700, L3890.6301, L3100.0460, L503.6550, L803.2200, L3100.0300, L503.6030, L3890.6102, L500.2500, L500.3400 ####[facility] [address] [place], [address] Gastroenterology Visit Repor ton 10-31-2024 Gastroenterology Visit Report [facility] [address] [place] [address] OFFICE VISIT Date of Service: 10/31/24 MR#: [id number] Acct: [id number] Name: MELANIE CAREY Rep #: [id number] : 1965 Provider: CRISTY joshi Age/Sex: 59/F Location: [facility] [place] Status: Signed Intake Vital Signs 09/02/24 13:33 10/31/24 15:26 Height 5 ft 5 in 5 ft 5 in Weight: 276 lb 2 oz BMI 45.9 BP 130/80 H Respiration 18 Pulse 71 Pulse Oximetry (%) 96 Oxygen Delivery Method room air Intake Visit Reasons: POSSIBLE CIRRHOSIS Chief Complaint: F/U Incisional hernia repair 11/04/22 Allergies cat dander Allergy (Severe, Verified 10/31/24 14:55) Swelling lisinopril Adverse Reaction (Intermediate, Verified 10/31/24 14:55) edema and difficulty breathing Medications ???Medication ???Instructions ???Recorded ???Confirmed ???Type albuterol sulfate 90 mcg/actuation 2 puff inhalation Q6H PRN PRN 10/31/24 History aerosol inhaler Shortness Of Breath labetalol 100 mg tablet 100 mg PO BID 07/29/20 10/31/24 Hi story metformin 1,000 mg tablet 1,000 mg PO BIDCM 07/29/20 5 History bupropion HCl 300 mg 24 hr tablet, 300 mg PO QAM 30 days #30 tabs 0 02/01/23 10/31/24 Rx extended release hydroxyzine HCl 25 mg tablet 25 mg PO TID PRN anxiety #90 tabs 02/01/23 10/31/24 Rx buspirone 10 mg tablet 10 mg PO TID 10/31/24 History fluconazole 50 mg tablet 50 mg PO QDAY 10/31/24 10/31/24 Hi story glimepiride 4 mg tablet 4 mg PO QAM 10/31/24 10/31/24 Hist ory insulin glargine 100 unit/mL 15 unit subcut QAM 10/31/24 History subcutaneous solution (Lantus U-100 Insulin) lactulose 10 gram/15 mL oral 10 g (15 mL) PO QDAY 90 days 10/3110/31/24 Rx solution #1,350 mL mecobalamin (vitamin B12) 10,000 mcg IM 10/31/24 10/31/24 History mcg solution for injection metformin 500 mg tablet 500 mg PO QDAY 10/31/24 10/31/24 H istory rosuvastatin 5 mg tablet 5 mg PO QDAY 10/31/24 10/31/24 His tory tirzepatide 5 mg/0.5 mL 5 mg subcut QWEEK 10/31/24 5 History subcutaneous pen injector (Mounjaro) [facility] Medical History Liver disease Loss of hearing Wears glasses Wears dentures Post-menopausal History of steroid therapy Insulin dependent diabetes mellitus Restless legs Back pain Dietary restriction Heartburn History of ulceration Colitis Former smoker CPAP (continuous positive airway pressure) dependence Shortness of breath on exertion Asthma Chronic cough Leg cramps History of edema History of echocardiogram History of stress test Cardiology follow-up encounter Disease of gingiva due to infection Incisional hernia Lung infection MDD (major depressive disorder) Allergies Contact with and (suspected) exposure to other viral communicable diseases URI (upper respiratory infection) Concussion History of tobacco use Encounter for screening for malignant neoplasm of lung in former smoker who quit in past 15 years with 30 pack year history or greater Trochanteric bursitis of left hip Right leg weakness Rectal bleed Hemorrhoids Fatigue Elevated transaminase level COPD (chronic obstructive pulmonary disease) Proteinuria Osteoarthritis Obesity Anxiety Hyperglycemia Hyponatremia Essential hypertension Migraines Depression Thrombocytopenia Surgical History H/O tooth extraction History of incisional hernia repair History of tonsillectomy and adenoidectomy History of endometrial ablation H/O colonoscopy History of cholecystectomy Status post carpal tunnel release H/O cardiac catheterization Family History Sister TBI (traumatic brain injury) Colon cancer Brother Substance abuse Depression Seizures Father Hypertension Prostate cancer Heart disease Arthritis Myocardial infarction Kidney disease Mother Depression Heart disease Diabetes Asthma Osteoporosis Respiratory disease Social History household members: spouse Smoking Status: Former smoker alcohol intake: never substance use type: does not use HPI HPI Chief Complaint: F/U Incisional hernia repair 11/04/22 Details: MELANIE CAREY, is a 59 F who presents to the office today for - Seen in the office today with her - reports she has seen Dr. Nuno in the past and diagnosed with UC and most recent colonoscopy revealed Crohn's - reports with initial diagnosis of severe UC she had diarrhea, mucus and bleeding treated with Asacol - states once symptoms resolved she discontinued Asacol Colon (more content not included)... Normal [facility] Hepatitis B Surface Antibody on 10-31-2024 HEP B Surf Ab REAC Normal [facility] Comment on above: Result Comment: <8.5 mIU/mL: Non-Reactive 8.5<= x <11.5 mIU/mL: Indeterminate >=11.5 mIU/mL: Reactive Non Reactive: Inconsistent with immunity less than <10 mIU/mL Reactive: Consistent with immunity greater than or equal to 10 mIU/mL Performed By: #### L 503.0106, L800.1280, L3890.6202, L100.0100, L300.3900, L3100.5450, L3300.0700, L3890.6301, L3100.0460, L503.6550, L803.2200, L3100.0300, L503.6030, L3890.6102, L500.2500, L500.3400 ####[facility] [address] [place], [place], [id number] Hepatitis C Antibodyon 10-31 Hepatitis C Ab Non-Reactive Normal Nonreactive [facility] Comment on above: Result Comment: Reac tive: Presumptive evidence of antibodies to HCV. Follow CDC recommendations for supplemental testing. Non-Reactive: Antibodies to HCV were not detected; does not exclude the possibility of exposure to HCV Reactive Results are presumptive evidence of antibodies to HCV. Follow CDC recommendations for supplemental testing. Order confirmation testing: HCV Quant by PCR testing - HCVPCR #[id number] Non Reactive: < 0.8 Equivocal: >/= 0.8 to < 1.0 Reactive: >/= 1.0 The CDC requires that a reactive/equivocal HCV antibody result be sent out for confirmation. HCV Quant by PCR testing. Performed By: #### L 503.0106, L800.1280, L3890.6202, L100.0100, L300.3900, L3100.5450, L3300.0700, L3890.6301, L3100.0460, L503.6550, L803.2200, L3100.0300, L503.6030, L3890.6102, L500.2500, L500.3400 ####[facility] [address] [place], [place], [phone] Iron+Iron Binding Capacityon 10-31-2024 Iron [Mass/Vol] 63 ug/dL Normal 50-[address] [facility] Comment on above: Performed By: #### L 503.0106, L800.1280, L3890.6202, L100.0100, L300.3900, L3100.5450, L3300.0700, L3890.6301, L3100.0460, L503.6550, L803.2200, L3100.0300, L503.6030, L3890.6102, L500.2500, L500.3400 ####[facility] [address] [place], [place], [phone] IRON SATURATION 18.0 Normal 13-[address] [facility] Comment on above: Performed By: #### L 503.0106, L800.1280, L3890.6202, L100.0100, L300.3900, L3100.5450, L3300.0700, L3890.6301, L3100.0460, L503.6550, L803.2200, L3100.0300, L503.6030, L3890.6102, L500.2500, L500.3400 ####[facility] [address] [place], [place], [id number] TIBC 359 ug/dL Normal 250-[address] [facility] Comment on above: Performed By: #### L 503.0106, L800.1280, L3890.6202, L100.0100, L300.3900, L3100.5450, L3300.0700, L3890.6301, L3100.0460, L503.6550, L803.2200, L3100.0300, L503.6030, L3890.6102, L500.2500, L500.3400 ####[facility] [address] [place], [place], [id number] UIBC 296 ug/dL Normal 228-[address] [facility] Comment on above: Performed By: #### L 503.0106, L800.1280, L3890.6202, L100.0100, L300.3900, L3100.5450, L3300.0700, L3890.6301, L3100.0460, L503.6550, L803.2200, L3100.0300, L503.6030, L3890.6102, L500.2500, L500.3400 ####[facility] [address] [place], [address] L3890.6102on 10-31-2024 HEP B Surf Ag Non-Reactive Normal Nonreactive [facility] Comment on above: Result Comment: Reac tive: Presumptive evidence of HBV. Repeatedly reactive samples must be confirmed using a neutralization test ([employer] HBsAg Confirmatory Test) Non-Reactive: HBsAg not detected; does not exclude the possibility of exposure to HBV Performed By: #### L 503.0106, L800.1280, L3890.6202, L100.0100, L300.3900, L3100.5450, L3300.0700, L3890.6301, L3100.0460, L503.6550, L803.2200, L3100.0300, L503.6030, L3890.6102, L500.2500, L500.3400 ####[facility] [address] [place], [place], [phone] Liver Profileon 10-31-2024 Albumin [Mass/Vol] 4.1 g/dL Normal 3.5-5.0 [facility] Comment on above: Performed By: #### L 503.0106, L800.1280, L3890.6202, L100.0100, L300.3900, L3100.5450, L3300.0700, L3890.6301, L3100.0460, L503.6550, L803.2200, L3100.0300, L503.6030, L3890.6102, L500.2500, L500.3400 #### [facility] [address] [place], [place], [id number] ALK PHOS 129 U/L High 35-[address] [facility] Comment on above: Performed By: #### L 503.0106, L800.1280, L3890.6202, L100.0100, L300.3900, L3100.5450, L3300.0700, L3890.6301, L3100.0460, L503.6550, L803.2200, L3100.0300, L503.6030, L3890.6102, L500.2500, L500.3400 #### [facility] [address] [place], [address] ALT [Catalytic activity/Vol] 21 U/L Normal <=[address] [facility] Comment on above: Performed By: #### L 503.0106, L800.1280, L3890.6202, L100.0100, L300.3900, L3100.5450, L3300.0700, L3890.6301, L3100.0460, L503.6550, L803.2200, L3100.0300, L503.6030, L3890.6102, L500.2500, L500.3400 #### [facility] [address] [place], [address] AST [Catalytic activity/Vol] 25 U/L Normal <=[address] [facility] Comment on above: Performed By: #### L 503.0106, L800.1280, L3890.6202, L100.0100, L300.3900, L3100.5450, L3300.0700, L3890.6301, L3100.0460, L503.6550, L803.2200, L3100.0300, L503.6030, L3890.6102, L500.2500, L500.3400 #### [facility] [address] [place], [address] Bilirubin [Mass/Vol] 1.02 mg/dL Normal 0.00-1.30 [facility] Comment on above: Performed By: #### L 503.0106, L800.1280, L3890.6202, L100.0100, L300.3900, L3100.5450, L3300.0700, L3890.6301, L3100.0460, L503.6550, L803.2200, L3100.0300, L503.6030, L3890.6102, L500.2500, L500.3400 #### [facility] [address] [facility]. [place], [place], [phone] (674) Bilirubin.direct [Mass/Vol] 0.44 mg/dL High 0.00-0.[address] [facility] Comment on above: Performed By: #### L 503.0106, L800.1280, L3890.6202, L100.0100, L300.3900, L3100.5450, L3300.0700, L3890.6301, L3100.0460, L503.6550, L803.2200, L3100.0300, L503.6030, L3890.6102, L500.2500, L500.3400 #### [facility] [address] [facility]. [place], [place], [phone] (446) Globulin (S) [Mass/Vol] 3.3 g/dL Normal 2.2-4.[address] [facility] Comment on above: Performed By: #### L 503.0106, L800.1280, L3890.6202, L100.0100, L300.3900, L3100.5450, L3300.0700, L3890.6301, L3100.0460, L503.6550, L803.2200, L3100.0300, L503.6030, L3890.6102, L500.2500, L500.3400 #### [facility] [address] [facility] [place], [address] (821) T PROT 7.4 g/dL Normal 5.9-8.[address] [facility] Comment on above: Performed By: #### L 503.0106, L800.1280, L3890.6202, L100.0100, L300.3900, L3100.5450, L3300.0700, L3890.6301, L3100.0460, L503.6550, L803.2200, L3100.0300, L503.6030, L3890.6102, L500.2500, L500.3400 #### [facility] [address] [place], [place], [phone] Prothrombin Time w/INRon INR Coag (PPP) [Relative time] 1.1 {INR} Normal [facility] Comment on above: Performed By: #### L 503.0106, L800.1280, L3890.6202, L100.0100, L300.3900, L3100.5450, L3300.0700, L3890.6301, L3100.0460, L503.6550, L803.2200, L3100.0300, L503.6030, L3890.6102, L500.2500, L500.3400 #### [facility] [address] [place], [place], [phone] PT Coag (PPP) [Time] 14.1 s Normal 11.7-14.9 [facility] Comment on above: Performed By: #### L 503.0106, L800.1280, L3890.6202, L100.0100, L300.3900, L3100.5450, L3300.0700, L3890.6301, L3100.0460, L503.6550, L803.2200, L3100.0300, L503.6030, L3890.6102, L500.2500, L500.3400 #### [facility] [address] [place], [place], [id number] Vitamin B12on 10-31-2024 Cobalamin (Vitamin B12) [Mass/Vol] 327 pg/mL Normal 180-[address] [facility] Comment on above: Performed By: #### L 503.0106, L800.1280, L3890.6202, L100.0100, L300.3900, L3100.5450, L3300.0700, L3890.6301, L3100.0460, L503.6550, L803.2200, L3100.0300, L503.6030, L3890.6102, L500.2500, L500.3400 #### [facility] Laboratory Refugio [address]. [place], [place], [id number] 36on 10-24-2024 36 Spoke with pilar Conklin verbal updated instructions. [facility] 36 Diflucan 150 mg lara y by mouth x 7 days. [facility] 36 Name of caller: Rubin Contact phone number: [phone] Relationship to Patient: [facility] [address] [place] [address] Provider: Cierra Practice: Jaky DUARTE Chief Complaint/Reason for Call: Rubin with [facility] pharmacy calling for clarification medicine fluconazole (Diflucan) 150 MG tablet. The directions have two sets of directions. Asking for a verbal or new script of correct directions. Please advise Best time of day caller can be reached: AM Patient advised that office/PCP has 24-48 business hours to return their call: N/A [facility] 37on 10-24-2024 37 Send daily fasting a nd 2 hour after meal blood sugar readings every 3 days to me through [employer]. [facility] Office Visiton 10-24-2024 Follow-up visit [id number] Ramesh Carey 1965 F Date Provider Department Center 10/24/2024 [id number] ALEXANDER JAKY [facility] Family History Problem Relation Age of Onset Diabetes Mother Heart disease Father Cancer Father Comments: prostate High Blood Pressure Father Other Sister Comments: TBI Depression Mother Substance Abuse Brother Heart disease Mother Other Mother Depression Brother Family Status - Relation Status Age at Mother Father Sister Alive Brother Alive Level of Service:08049 NM OFFICE/OUTPATIENT ESTABLISHED MOD MDM 30 MIN Reason for Visit and Comments: Diabetes Mellitus [183] [facility] Progress Noteon 10-24-2024 Progress Note Continue with pain management as directed. [facility] Progress Note Continue b12 injections [facility] Progress Note Follow-up with hemat ology as directed. [facility] Progress Note Stable. Get diabetes under control. Blood pressures are good [facility] Progress Note Stable. Follow up [facility] gastroenterology as scheduled [facility] Progress Note Poorly controlled. Improved glucose readings from a few weeks ago. Needs to get back on the mounjaro 5 mg weekly, continue metformin 1000 mg, 500 mg , 1000 mg daily, take glimepiride 4 mg in am consistently. Increased lantus from 14 units to 16 units nightly. Send daily glucose readings-fasting and post prandial every 3 days for medication adjustments. Reiterated importance of being consistent with medications in order to get better control of diabetes. Normal [facility] Progress Note Stable. Continue Wellbutrin 300 mg daily, BuSpar 10 mg twice daily. Recommend establishing with counselor [facility] Progress Note Controlled. Blood pr essure 124/72. Continue labetalol 100 mg twice daily. Has not tolerated CLAUDY inhibitors in the past, consider ARB [facility] Progress Note Controlled. Continue rosuvastatin 5 mg daily [facility] Progress Note Continue portion con trol, low carb,low fat, low cholesterol diet. Increase physical activity as tolerated. Normal [facility] Progress Note 10/24/2024 Melanie Carey (: 1965) is a 59 y.o. female , Established patient, here for evaluation of the following chief complaint(s): Diabetes Mellitus ASSESSMENT/PLAN: 1. Type 2 diabetes mellitus with polyneuropathy (HCC) Assessment & Plan: Poorly controlled. Improved glucose readings from a few weeks ago. Needs to get back on the mounjaro 5 mg weekly, continue metformin 1000 mg, 500 mg , 1000 mg daily, take glimepiride 4 mg in am consistently. Increased lantus from 14 units to 16 units nightly. Send daily glucose readings-fasting and post prandial every 3 days for medication adjustments. Reiterated importance of being consistent with medications in order to get better control of diabetes. 2. Vitamin B 12 deficiency Assessment & Plan: Continue b12 injections 3. Pancytopenia (HCC) Assessment & Plan: Follow-up with hematology as directed. 4. Pain management Assessment & Plan: Continue with pain management as directed. 5. Current mild episode of major depressive disorder without prior episode (HCC) Assessment & Plan: Continue bupropion xl 300 mg and Buspar 10 mg twice daily. Recommend counseling services. 6. Diabetic nephropathy associated with type 2 diabetes mellitus (HCC) Assessment & Plan: Stable. Get diabetes under control. Blood pressures are good 7. Other cirrhosis of liver (HCC) Assessment & Plan: Stable. Follow up with gastroenterology as scheduled 8. Anxiety Assessment & Plan: Stable. Continue Wellbutrin 300 mg daily, BuSpar 10 mg twice daily. Recommend establishing with counselor 9. Essential hypertension Assessment & Plan: Controlled. Blood pressure 124/72. Continue labetalol 100 mg twice daily. Has not tolerated CLAUDY inhibitors in the past, consider ARB 10. Hyperlipidemia LDL goal <70 Assessment & Plan: Controlled. Continue rosuvastatin 5 mg daily 11. Encounter for screening mammogram for malignant neoplasm of breast 12. Type 2 diabetes mellitus with hyperglycemia, unspecified whether custodial insulin use (HCC) - insulin glargine (Lantus SoloStar) 100 UNIT/ML pen; Inject 16 Units under the skin Nightly., Starting Wed10/24/2024, No Print 13. Yeast dermatitis - fluconazole (Diflucan) 150 MG tablet; Take 1 tablet (150 mg) by mouth daily for 7 days. Take one tab now. Repeat in 7 days if symptoms persist., Starting Wed10/24/2024, Until Wed10/31/2024, Normal 14. Class 3 severe obesity due to excess calories with serious comorbidity and body mass index (BMI) of 40.0 to 44.9 in adult ([facility]) Assessment & Plan: Continue portion control, low carb,low fat, low cholesterol diet. Increase physical activity as tolerated. Follow up for 3 [facility]. SUBJECTIVE/OBJECTIVE: [facility] - Melanie Carey (: 1965) is a 59 y.o. female , Established patient, here for the evaluation of the following chief complaint(s): Diabetes Mellitus Diabetes- fasting glucose 250-299, Has not been able to get the monjaro for about a month d/t money. Was increased to 5 mg weekly. Glimepiride- is not taking consistently 4 mg. Has been taking the 2 mg in am only. Metformin 1000 mg twice daily + 500 mg at noon. Lantus 14 units at night. Thinks she will be able to get the monjaro this week. Right hip pain- seeing Dr. Kevin Ricketts, was supposed to start physical therapy at [facility] in [place] but was not able to get it coordinated. Did see pain management- Luther, and got a steroid injection couple weeks ago and does not think it helped. Mood/anxiety- reports stressed about significant others health problems and her own health issues. Denies si/hi. Does not want to change medications currently GI- sees gastroenterology for cirrhosis, gerd. Denies any abdominal pain, n/v Current Outpatient Medications Medication Sig Dispense Refill albuterol 108 (90 Base) MCG/ACT inhaler Inhale 1 puff every 6 hours as needed for wheezing or shortness of breath. 18 g 11 buPROPion XL (Wellbutrin XL) 300 MG 24 hr tablet TAKE 1 TABLET BY MOUTH ONCE DAILY. DO NOT CRUSH, CHEW OR SPLIT. 90 tablet 0 busPIRone (Buspar) 10 MG tablet Take 1 tablet by mouth twice daily 60 tablet 0 Cyanocobalamin (B-12 Compliance Injection) 1000 MCG/ML kit Inject 1 ml (1000mcg) subcutaneous weekly x 4 then monthly 4 kit 2 glimepiride (Amaryl) 2 MG tablet Take 2 tablets (4 mg) by mouth daily (with breakfast). HYDROcodone-acetaminophen (Cameron) 5-325 MG tablet TAKE 1 TABLET BY MOUTH EVERY 6 HOURS NEEDED FOR PAIN FOR 3 DAYS labetalol (Normodyne) 100 MG tablet TAKE 1 TABLET BY MOUTH IN THE MORNING AND 1 TABLET IN THE EVENING. 60 tablet 0 metFORMIN (Glucophage) 1000 MG tablet Take 1 tablet (1,000 mg) by mouth 2 times daily (with meals). 180 tablet 1 nystatin (Mycostatin) 424566 UNIT/GM powder Apply topically 2 times daily. 30 g 0 rosuvastatin (Crestor) 5 MG tablet Take 1 tablet (5 mg) by mouth daily. 90 tablet 1 Tirzepatide (Mounjaro) 5 MG/0.5ML solution auto-injector Inject 5 mg (more content not included)... [facility] Progress Note Patient was identifi ed by name and Date of . Health Maintenance Due Topic Mammogram-pended [facility] [id number] 10-09-2024 [id number] Faxed DEVONTE to Dr. Monson's office and Pain [place] [facility] 36on 10-09-2024 36 Noted. Thank you Normal [facility] 36 DEVONTE's printed and fi lled out ok to send? Normal [facility] Basic metabolic 1998 panelon 09-27-2024 Anion gap [Moles/Vol] 9 mmol/L 3 - 13 mmol/L [facility] Calcium [Mass/Vol] 8.6 mg/dL 8.4 - 10. 2 mg/dL [facility] Chloride [Moles/Vol] 105 mmol/L 98 - 10 7 mmol/L [facility] CO2 [Moles/Vol] 18 mmol/L Low 22 - 29 mmol/L [facility] Creatinine [Mass/Vol] 1.17 mg/dL High 0.57 - 1.11 mg/dL [facility] GFR/1.73 sq M.predicted (S/P/Bld) [Vol rate/Area] 54.5 mL/min Low - PINF [facility] Comment on above: Calculation based on the Chronic Kidney Disease Epidemiology Collaboration (CKD-EPI) equation refit without adjustment for race Glucose [Mass/Vol] 419 mg/dL High 74 - 100 mg/dL [facility] Interpretation and review of laboratory results Abnormal [facility] Potassium [Moles/Vol] 4.5 mmol/L 3.5 - 5.1 mmol/L [facility] Comment on above: Plasma potassium chelsy ues may be up to 0.5 mmol/L lower than serum values. Sodium [Moles/Vol] 132 mmol/L Low 136 - 145 mmol/L [facility] Urea nitrogen [Mass/Vol] 29 mg/dL High 9 - 23 mg/dL [facility] CBC W Auto Differential pane l (Bld)Ordered By: Laura Abad on 09-27-2024 Erythrocyte distribution width (RBC) [Ratio] 15 % 11.5 - 15.0 % [facility] Hematocrit (Bld) [Volume fraction] 37 % 35.0 - 47.0 % [facility] Hemoglobin (Bld) [Mass/Vol] 12.3 g/dL 11.7 - 16.0 g/dL [facility] Interpretation and review of laboratory results Abnormal [facility] IPF 4 [facility] MCH (RBC) [Entitic mass] 27.3 pg 26.0 - 34.0 pg [facility] MCHC (RBC) [Mass/Vol] 33.2 % 30.5 - 36.0 % [facility] MCV (RBC) [Entitic vol] 82 fL 77.0 - 99.0 fL [facility] Platelet mean volume (Bld) [Entitic vol] 11.3 fL 9.0 - 12.7 fL [facility] Platelets (Bld) [#/Vol] 50 10*3/uL Low 140 - 440 10*3/uL [facility] RBC (Bld) [#/Vol] 4.51 10*6/uL 3.80 - 5.2 0 10*6/uL [facility] WBC (Bld) [#/Vol] 5.4 10*3/uL 3.6 - 10.7 10*3/uL [facility] Comprehensive metabolic 1998 panelOrdered By: Cherelle Santos on 09-27-2024 Albumin [Mass/Vol] 3.5 g/dL 3.5 - 5.0 g/dL [facility] ALP [Catalytic activity/Vol] 145 U/L 40 - 150 U/L [facility] ALT [Catalytic activity/Vol] 32 U/L High NINF - 30 U/L [facility] Anion gap [Moles/Vol] 12 mmol/L 3 - 13 mmol/L [facility] AST [Catalytic activity/Vol] 32 U/L NINF - 34 U/L [facility] Bilirubin [Mass/Vol] 1.3 mg/dL High [facility] - 1.2 mg/dL [facility] Calcium [Mass/Vol] 9.2 mg/dL 8.4 - 10. 2 mg/dL [facility] Chloride [Moles/Vol] 102 mmol/L 98 - 10 7 mmol/L [facility] CO2 [Moles/Vol] 18 mmol/L Low 22 - 29 mmol/L [facility] Creatinine [Mass/Vol] 1.49 mg/dL High 0.57 - 1.11 mg/dL [facility] GFR/1.73 sq M.predicted (S/P/Bld) [Vol rate/Area] 40.8 mL/min Low - PINF [facility] Comment on above: Calculation based on the Chronic Kidney Disease Epidemiology Collaboration (CKD-EPI) equation refit without adjustment for race Glucose [Mass/Vol] 528 mg/dL Critically high 74 - 1 00 mg/dL [facility] Interpretation and review of laboratory results Abnormal [facility] Potassium [Moles/Vol] 4.9 mmol/L 3.5 - 5.1 mmol/L [facility] Comment on above: Plasma potassium chelsy ues may be up to 0.5 mmol/L lower than serum values. Protein [Mass/Vol] 7.6 g/dL 6.4 - 8.3 g/dL [facility] Sodium [Moles/Vol] 132 mmol/L Low 136 - 145 mmol/L [facility] Urea nitrogen [Mass/Vol] 30 mg/dL High 9 - 23 mg/dL [facility] Laboratory - Chemistry and C hemistry - challengeon 09-27-2024 Glucose [Mass/Vol] 303 mg/dL High 70 - 100 mg/dL [facility] Beta hydroxybutyrate [Mass/Vol] 2.3 mg/dL NINF - 2.8 mg/dL [facility] Magnesium [Mass/Vol] 1.6 mg/dL 1.6 - 2 .6 mg/dL [facility] Glucose [Mass/Vol] mg/dL High 70 - 100 mg/dL [facility] Comment on above: Confirmation Drawn; Caregiver Notified; Laboratory - Chemistry and C hemistry - challengeOrdered By: Suly Hamilton on 09-27-2024 Base excess Calc (BldV) [Moles/Vol] -4.7000 mmol/L Low -3.0 - 3.0 mmol/L [facility] CO2 (BldV) [Partial pressure] 31.2 mm[Hg] Low [facility] CO2 [Moles/Vol] 19.9 mmol/L Low 23.0 - 30.0 mmol/L [facility] HCO3 (Bld) [Moles/Vol] 19 mmol/L Low 21.0 - 30.0 mmol/L [facility] Oxygen (BldV) [Partial pressure] 72.5 mm[Hg] mm Hg [facility] pH (BldV) 7.402 [pH] 7.320 - 7.420 [facility] Laboratory - Hematology and Cell countson 09-27-2024 Lymphocytes (Bld) [#/Vol] 0.1 10*3/uL Low 1.0 - 4.3 10*3/uL [facility] Lymphocytes/100 WBC (Bld) 2 % Low 15 - 45 % [facility] Monocytes (Bld) [#/Vol] 0.2 10*3/uL 0.0 - 0.9 10*3/uL [facility] Monocytes/100 WBC (Bld) 4 % Low 5 - 13 % [facility] Myelocytes (Bld) [#/Vol] 0.2 10*3/uL High NINF - 0.0 10*3/uL [facility] Myelocytes/100 WBC (Bld) 3 % High NINF - 0 % [facility] Neutrophils (Bld) [#/Vol] 4.7 10*3/uL 1.8 - 7.5 10*3/uL [facility] RBC morphology finding Nom (Bld) Normal [facility] Segmented neutrophils/100 WBC (Bld) 87 % High 38 - 82 % [facility] Variant lymphocytes (Bld) [#/Vol] 0.2 10*3/uL High NINF - 0.0 10*3/uL [facility] Variant lymphocytes/100 WBC (Bld) 4 % High NINF - 0 % [facility] Laboratory - Hematology and Cell countsOrdered By: Suly Hamilton on 09-27-2024 Hemoglobin (Bld) [Mass/Vol] 13.1 g/dL Screen only [facility] Magnesium [Mass/Vol]on 09-27 Higher values can be expected in females during menses. [facility] No Panel Informationon 09-27 P Center 60 degrees [facility] NM Interval 208 ms [facility] QRS Center -75 degrees [facility] QRSD Interval 106 ms [facility] QT Interval 355 ms [facility] QTC Interval 448 ms [facility] T Wave Center 64 degrees [facility] Sinus rhythm Prolonged NM interval Left anterior fascicular block Consider right ventricular hypertrophy Probable left ventricular hypertrophy EKG per my interpretation shows a normal sinus rhythm at a rate of 96 with a left axis deviation. There is a left anterior fascicular block. There may be LVH and RVH. There is no acute ST elevation or ST depression. Intervals are within normal limits although NM may be slightly prolonged. There were no significant changes compared to prior EKG on file. Electronically Signed On 09-27-2024 20:11:11 EDT by Jimenez De La Fuente MD - 09/27/2024 IMPRESSION: Sinus rhythm Prolonged NM interval Left anterior fascicular block Consider right ventricular hypertrophy Probable left ventricular hypertrophy EKG per my interpretation shows a normal sinus rhythm at a rate of 96 with a left axis deviation. There is a left anterior fascicular block. There may be LVH and RVH. There is no acute ST elevation or ST depression. Intervals are within normal limits although NM may be slightly prolonged. There were no significant changes compared to prior EKG on file. Electronically Signed On 09-27-2024 20:11:11 EDT by Jimenez Maddox [facility] Interpretation and review of laboratory results Abnormal [facility]: [facility], [address] [address] CLIA ID: [id number] [facility] Atypical Lymphocytes Manual 4 [facility] Bands Manual [facility] Basophils Manual [facility] Blasts Manual [facility] Eosinophils Manual [facility] Interpretation and review of laboratory results Abnormal [facility] Lymphocytes Manual 2 [facility] Metamyelocytes Manual [facility] Monocytes Manual 4 [facility] Myelocytes Manual 3 [facility] Neutrophils Manual 89 [facility] Promyelocytes Manual [facility] Unclassified Cells, Manual [facility] Interpretation and review of laboratory results Normal [facility] Interpretation and review of laboratory results Abnormal [facility] Performed by: [facility], [address] [address] CLIA ID: [id number] [facility] No Panel InformationOrdered By: Suly Hamilton on 09-27-2024 Amount Of Oxygen [facility] Interpretation and review of laboratory results Abnormal [facility] Source Of Oxygen No data [facility] Assessment of oxygen ation is best done with an arterial blood gas determination. Reference ranges for pO2, bicarbonate, and base excess are for mixed venous blood. Specimens drawn from a peripheral vein will often have higher values. [facility] Phosphate [Moles/Vol]on 09-09 Interpretation and review of laboratory results Abnormal [facility] Phosphate [Mass/Vol] 2.1 mg/dL Low 2.3 - 4 .7 mg/dL [facility] Vital signson 09-27-2024 Heart rate 96 /min bpm [facility] Vital signsOrdered By: Suly Hamilton on 09-27-2024 Oxygen saturation in Venous blood 93.8 % [facility] Emergency Department Summary on 09-02-2024 Emergency Department Summary [facility] Medical Records Department [address] [place] [address] Emergency Department Summary 09/02/24 MR#: [id number] Acct: [id number] Name: MELANIE CAREY Rep #: [id number] : 1965 59 From: Lino Elias MD PCP: Dr. See Ricketts MD Status:REG ER Location: ED HPI History of Present Illness Chief Complaint: Back Narrative Narrative: 59-year-old female past medical history of diabetes presents with pain in her right hip and in her right low back to midline that she has had for the last few days. No recent trauma or falls. She was told a long time ago that she has arthritis in her right hip. She now has pain with movement of her right lower extremity. She states that as she is walking sometimes she can feel her right hip catch. It causes her to stumble, but she has not fallen on it recently. She has been taking Tylenol with mild relief of her symptoms. She denies any fevers or chills, she is nauseated from the pain but no vomiting. No dysuria or hematuria. No problems with bowel movements. No red flag signs for cauda equina including no saddle anesthesia, no loss of bowel or bladder. [facility] Medical History Liver disease Loss of hearing Wears glasses Wears dentures Post-menopausal History of steroid therapy Insulin dependent diabetes mellitus Restless legs Back pain Dietary restriction Heartburn History of ulceration Colitis Former smoker CPAP (continuous positive airway pressure) dependence Shortness of breath on exertion Asthma Chronic cough Leg cramps History of edema History of echocardiogram History of stress test Cardiology follow-up encounter Disease of gingiva due to infection Incisional hernia Lung infection MDD (major depressive disorder) Allergies Contact with and (suspected) exposure to other viral communicable diseases URI (upper respiratory infection) Concussion History of tobacco use Encounter for screening for malignant neoplasm of lung in former smoker who quit in past 15 years with 30 pack year history or greater Trochanteric bursitis of left hip Right leg weakness Rectal bleed Hemorrhoids Fatigue Elevated transaminase level COPD (chronic obstructive pulmonary disease) Proteinuria Osteoarthritis Obesity Anxiety Hyperglycemia Hyponatremia Essential hypertension Migraines Depression Thrombocytopenia Home Medications ???Medication ???Instructions ???Recorded ???Last Taken ???Type albuterol sulfate 90 mcg/actuation 2 puff inhalation Q6H PRN PRN 10/01/23 History aerosol inhaler Shortness Of Breath aspirin 81 mg chewable tablet 81 mg PO DAILY@0800 07/29/2009/30 History labetalol 100 mg tablet 100 mg PO BID 07/29/20 10/01/23 Hi story lisinopril 40 mg tablet 40 mg PO DAILY 07/29/20 10/01/23 H istory metformin 1,000 mg tablet 1,000 mg PO BIDCM 07/29/20 4 History insulin regular hum U-500 conc 500 30 unit subcut LUNCH 02/16/22 History unit/mL(3 mL) subcut pen insulin regular hum U-500 conc 500 130 unit subcut QHS 02/16/22 History unit/mL(3 mL) subcut pen insulin regular hum U-500 conc 500 160 unit subcut BREAKFAST 10/01/23 History unit/mL(3 mL) subcut pen oxycodone-acetaminophen 5 mg-325 1 - 2 tab PO Q6H PRN pain 3 days 0 11/04/22 Unknown Rx mg tablet #14 tabs bupropion HCl 300 mg 24 hr tablet, 300 mg PO QAM 30 days #30 tabs 0 02/01/23 10/01/23 Rx extended release buspirone 10 mg tablet 10 mg PO BID 30 days #60 tabs 01/1010/01/23 Rx hydroxyzine HCl 25 mg tablet 25 mg PO TID PRN anxiety #90 tabs 02/01/23 Unknown Rx prednisone 20 mg tablet 40 mg (2 x 20 mg) PO DAILY 10 days 10/01/23 Unknown Rx #19 tabs albuterol sulfate 90 mcg/actuation 2 puff inhalation Q4H PRN PRN Unknown Rx aerosol inhaler (Ventolin HFA) Wheezing ##1 prednisone 20 mg tablet 40 mg (2 x 20 mg) PO DAILY 5 days 04/23/24 Unknown Rx #10 tabs hydrocodone-acetaminophen 5-325mg 1 tab PO Q6H PRN PRN Pain 3 days 09/02/24 Unknown Rx 5mg-325mg #10 TABLETS Allergy/AdvReac Type Severity Reaction Status Date / Time cat dander Allergy Severe Swelling Verified 09/02/24 13:36 Family History Sister TBI (traumatic brain injury) Colon cancer Brother Substance abuse Depression Seizures Father Hypertension Prostate cancer Heart disease Arthritis Myocardial infarction Kidney disease Mother Depression Heart disease Diabetes Asthma Osteoporosis Respiratory disease Surgical History History of incisional hernia repair History of tonsillectomy and adenoidectomy History of endometrial ablation H/O colonoscop (more content not included)... Normal [facility] HIP, UNI W/ Pelvis 2-3 Views on 09-02-2024 HIP, UNI W/ Pelvis 2-3 Views [facility] Imaging Services [address] [place] [address] HIP, UNI W/ Pelvis 2-3 Views MR#: [id number] Acct: [id number] Name: MELANIE RESTREPO Rep #: [id number] : 1965 F 59 From: Rik Paiz MD PCP: Dr. See Ricketts MD Status: PRE ER Study: HIP, UNI W/ Pelvis 2-3 Views Date of Exam: Exam# [id number] Ordering Dr: Lino Elias MD PROCEDURE: HIP, UNI W/ PELVIS 2-3 VIEWS REASON FOR EXAM: Pain TECHNIQUE: 2 views of right hip. AP Pelvis. COMPARISON: None. FINDINGS: The bony pelvic ring appears intact. SI joints are unremarkable. RIGHT HIP: No fracture. No suspicious bone lesion. Normal alignment. Moderate joint space narrowing Soft tissues are unremarkable. RAD/HIP, UNI W/ Pelvis 2-3 Views IMPRESSION: Degenerative changes with no acute osseous abnormality in the right hip Reading Location: [facility] CC: Dr. Lino Elias MD; Dr. See Ricketts MD [employer] Helper: Signed Normal [facility] Lumbar Spine 2 or 3 Viewson 09-02-2024 Lumbar Spine 2 or 3 Views [facility] Imaging Services [address] [place] [address] Lumbar Spine 2 or 3 Views MR#: [id number] Acct: [id number] Name: MELANIE RESTREPO Rep #: [id number] : 1965 F 59 From: Rik Paiz MD PCP: Dr. See Ricketts MD Status: PRE ER Study: Lumbar Spine 2 or 3 Views Date of Exam: Exam# [id number] Ordering Dr: Lino Elias MD PROCEDURE: LUMBAR SPINE 2 OR 3 VIEWS REASON FOR EXAM: Pain TECHNIQUE: 2 view(s) of the lumbar spine COMPARISON: None. FINDINGS: Normal lumbar vertebral heights. No evidence of fracture. Disc space heights are preserved. Mild spondylosis Normal alignment. No spondylolisthesis. Mild facet arthropathy RAD/Lumbar Spine 2 or 3 Views IMPRESSION: Mild degenerative changes with no acute osseous abnormality in the lumbar spine Reading Location: [facility] CC: Dr. Lino Elias MD; Dr. See Ricketts MD Ho[employer] Punch [employer] Coiler Operator Helper: Signed Normal [facility] L5000.0010on 04-29-2024 BNP [address] [facility] Comment on above: Result Comment: TEST RESULTS LIMITS B-Type Natriuretic Peptide 29.2 pg/mL 0.0-100.0 Siemens ADVIA Centaur XP methodology TESTING PERFORMED AT [facility]. ORIGINAL REPORT ON FILE IN LAB CONTAINS ADDITIONAL TEST SITE INFORMATION. Performed By: #### L 500.2500, L501.5425, L100.0100, L5000.0010 ####[facility] [address] [place], [address] CBC W/Diff, Automatedon 10- PATH REV Reviewed Normal [facility] Comment on above: Result Comment: Panc ytopenia. Leukopenia and neutropenia.Normocytic anemia. MODERATE Thrombocytopenia. Clinical correlation necessary. Travis Jerry M.D. 04/24/24 AMENDED REPORT 04/24/24 1340 PATH REV previously reported as: Xochitl kaufman Performed By: #### L 500.2500, L501.5425, L100.0100, L5000.0010 ####[facility] [address] [facility] [place], [address] 12 Lead EKGon 04-23-2024 12 Lead EKG [facility] Cardiovascular Services [address] [place] [address] 12 Lead EKG 04/23/24 1133 MR#: [id number] Acct: [id number] Name: MELANIE RESTREPO Rep #: [id number] : 1965 58 From: Jarad Cheney MD Attending Dr: Status: DEP ER Ordering Dr: Rc Freeman DO Date: 4 Location: ED Sex: F C Admitted: Test Reason : SOB Blood Pressure : / mmHG Vent. Rate : 077 BPM Atrial Rate : 077 BPM P-R Int : 192 ms QRS Dur : 098 ms QT Int : 404 ms P-R-T Axes : 054 -64 042 degrees QTc Int : 457 ms Normal sinus rhythm Left anterior fascicular block Abnormal ECG Confirmed by Jarad Cheney ([id number]), visual effects editor ZELDA KENNEDY ([id number]) on 04/25/2024 1:32:02 PM Referred By: Confirmed By:Jarad Cheney 04/25/24 1332 Date Jarad Cheney MD CC: Dr. Rc Freeman DO; Dr. See Ricketts MD Signed Normal [facility] Basic Metabolic Profile (BMP )on 04-23-2024 BUN/CRE 9.4 RATIO Low 04-[address] [facility] Comment on above: Order Comment: 1Y Performed By: #### L 500.2500, L501.5425, L100.0100, L5000.0010 ####[facility] [address] [place], [address] CA,Total 9.4 mg/dL Normal 8.5-10.[address] [facility] Comment on above: Order Comment: 1Y Performed By: #### L 500.2500, L501.5425, L100.0100, L5000.0010 ####[facility] [address] [place], [address] Chloride [Moles/Vol] 100 mmol/L Normal 98-107 [facility] Comment on above: Order Comment: 1Y Performed By: #### L 500.2500, L501.5425, L100.0100, L5000.0010 ####[facility] [address] [place], [address] CO2 [Moles/Vol] 28.0 mmol/L Normal 21.0-32.[address] [facility] Comment on above: Order Comment: 1Y Performed By: #### L 500.2500, L501.5425, L100.0100, L5000.0010 ####[facility] [address] [place], [address] Creatinine [Mass/Vol] 1.06 mg/dL High 0.55-1.[address] [facility] Comment on above: Order Comment: 1Y Result Comment: The validity of the calculated GFR GFRAA in patients over 70 years has not been determined. Clinical correlation is essential. Performed By: #### L 500.2500, L501.5425, L100.0100, L5000.0010 ####[facility] [address] [place], [address] ECRCL 77.03 ml/min Normal [facility] Comment on above: Order Comment: 1Y Performed By: #### L 500.2500, L501.5425, L100.0100, L5000.0010 ####[facility] [address] [place], [address] EST GFR - AA 69 mL/min Normal >[address] [facility] Comment on above: Order Comment: 1Y Result Comment: Afri can [place] GFR Calc Performed By: #### L 500.2500, L501.5425, L100.0100, L5000.0010 ####[facility] [address] [place], [address] GAP 6 Normal 5-[address] [facility] Comment on above: Order Comment: 1Y Performed By: #### L 500.2500, L501.5425, L100.0100, L5000.0010 ####[facility] [address] [place], [address] GFR/1.73 sq M.predicted among non-blacks MDRD (S/P/Bld) [Vol rate/Area] 57 mL/min/{1.73_m2} Low >[address] [facility] Comment on above: Order Comment: 1Y Result Comment: Non- GFR Calc Performed By: #### L 500.2500, L501.5425, L100.0100, L5000.0010 ####[facility] [address] [place], [address] Glucose [Mass/Vol] 416 mg/dL High 74-106 [facility] Comment on above: Order Comment: 1Y Result Comment: Gluc ose result greater than or equal to 200 mg/dL suggests DIABETES MELLITUS per A.D.A. criteria. Performed By: #### L 500.2500, L501.5425, L100.0100, L5000.0010 ####[facility] [address] [place], [address] Potassium [Moles/Vol] 4.0 mmol/L Normal 3.5-5.[address] [facility] Comment on above: Order Comment: 1Y Performed By: #### L 500.2500, L501.5425, L100.0100, L5000.0010 ####[facility] [address] [place], [address] Sodium [Moles/Vol] 134 mmol/L Low 136-145 [facility] Comment on above: Order Comment: 1Y Performed By: #### L 500.2500, L501.5425, L100.0100, L5000.0010 ####[facility] [address] [place], [address] Urea nitrogen [Mass/Vol] 10 mg/dL Normal 7-[address] [facility] Comment on above: Order Comment: 1Y Performed By: #### L 500.2500, L501.5425, L100.0100, L5000.0010 ####[facility] [address] [place], [address] Chest PA and Lateralon 04-23 Chest PA and Lateral [facility] Imaging Services [address] [place] [address] Chest PA and Lateral MR#: [id number] Acct: [id number] Name: MELANIE RESTREPO Rep #: [id number] : 1965 F 58 From: Avtar Lezama MD PCP: Dr. See Ricketts MD Status: [facility] ER Study: Chest PA and Lateral Date of Exam: 04/23/24 Exam# [id number] Ordering Dr: Rc Freeman DO [id number] STUDY: X-RAY CHEST REASON FOR EXAM: Female, 58 years old. Shortness of breath TECHNIQUE: PA and lateral views of the chest. COMPARISON: 03/22/2024 FINDINGS: Poor inspiration with some bibasilar atelectasis. There is no demonstrated pleural abnormality. Normal size heart. Normal mediastinum and brennan. Normal visualized pulmonary arteries. Normal visualized aortic arch and descending thoracic aorta. Normal visualized thoracic spine. Normal visualized ribs, clavicles, and shoulders. There is no demonstrated abnormality of the visualized soft tissue structures of the upper abdomen. RAD/Chest PA and Lateral IMPRESSION: Poor inspiration with some bibasilar atelectasis. Electronically Signed: Avtar Lezama MD at 14:00 EDT , CC: Dr. Rc Freeman DO; Dr. See Ricketts MD [employer] Operator Helper: Signed Normal [facility] Emergency Department Summary on 04-23-2024 Emergency Department Summary [facility] Medical Records Department [address] [place] [address] Emergency Department Summary 04/23/24 MR#: [id number] Acct: [id number] Name: MELANIE RESTREPO Rep #: [id number] : 1965 58 From: Rc Freeman DO PCP: Dr. See Ricketts MD Status:DEP ER Location: ED HPI History of Present Illness Chief Complaint: Shortness of Breath Narrative Narrative: Chief complaint and HPI: Shortness of breath. 58-year-old female with history of COPD, depression, DM presents for evaluation of shortness of breath. Patient states she woke up 2 days ago with nasal congestion that resolved. She states that she then developed shortness of breath and chest tightness. She states the chest tightness worsens when she coughs. She states occasionally she gets a sharp pain in her back with coughing. She states her shortness of breath is not improving which is why she presents today. She denies any fever, chills, abdominal pain, nausea, vomiting, dysuria. She denies any sick contacts that she knows of. Patient states she has an albuterol inhaler as needed. She denies any DuoNebs at home or a maintenance inhaler. She has never seen a central sterilization technician. She is a previous tobacco abuser. Denies bilateral lower extremity swelling or pain. Review of systems: See HPI Medications: As listed on the chart Allergies: As listed on the chart PFSH: Per chart Vital signs: As listed on the chart. Reviewed. Physical exam: Gen: A O x3, NAD Head: Normocephalic, atraumatic Eyes: No sclera icterus, conjunctiva clear ENT: Moist mucous membranes Neck: Trachea midline, No JVD CV: RRR, no murmurs, no peripheral edema Resp: Large body habitus with diminished breath sounds, mildly coarse throughout, intermittent expiratory wheeze, + dry cough GI: Abd soft, non-distended, non-tender, no r/r/g Musc: Full ROM, no deformity Skin: Warm, dry Neuro: Alert, oriented, grossly intact, sensation intact Psych: Cooperative, appropriate mood and affect [facility] Medical History Liver disease Loss of hearing Wears glasses Wears dentures Post-menopausal History of steroid therapy Insulin dependent diabetes mellitus Restless legs Back pain Dietary restriction Heartburn History of ulceration Colitis Former smoker CPAP (continuous positive airway pressure) dependence Shortness of breath on exertion Asthma Chronic cough Leg cramps History of edema History of echocardiogram History of stress test Cardiology follow-up encounter Disease of gingiva due to infection Incisional hernia Lung infection MDD (major depressive disorder) Allergies Contact with and (suspected) exposure to other viral communicable diseases URI (upper respiratory infection) Concussion History of tobacco use Encounter for screening for malignant neoplasm of lung in former smoker who quit in past 15 years with 30 pack year history or greater Trochanteric bursitis of left hip Right leg weakness Rectal bleed Hemorrhoids Fatigue Elevated transaminase level COPD (chronic obstructive pulmonary disease) Proteinuria Osteoarthritis Obesity Anxiety Hyperglycemia Hyponatremia Essential hypertension Migraines Depression Thrombocytopenia Home Medications ???Medication ???Instructions ???Recorded ???Last Taken ???Type albuterol sulfate 90 mcg/actuation 2 puff inhalation Q6H PRN PRN 07/29/20 10/01/23 History aerosol inhaler Shortness Of Breath aspirin 81 mg chewable tablet 81 mg PO DAILY@0800 07/29/20 10/01/23 History labetalol 100 mg tablet 100 mg PO BID 07/29/20 10/01/23 History lisinopril 40 mg tablet 40 mg PO DAILY 07/29/20 10/01/23 History metformin 1,000 mg tablet 1,000 mg PO BIDCM 07/29/20 10/01/23 History insulin regular hum U-500 conc 500 30 unit subcut LUNCH 02/16/22 10/01/23 History unit/mL(3 mL) subcut pen insulin regular hum U-500 conc 500 130 unit subcut QHS 02/16/22 10/01/23 History unit/mL(3 mL) subcut pen insulin regular hum U-500 conc 500 160 unit subcut BREAKFAST 02/16/22 10/01/23 History unit/mL(3 mL) subcut pen oxycodone-acetaminophen 5 mg-325 1 - 2 tab PO Q6H PRN pain 3 days 11/04/22 Unknown Rx mg tablet #14 tabs bupropion HCl 300 mg 24 hr tablet, 300 mg PO QAM 30 days #30 tabs 02/01/23 10/01/23 Rx extended release buspirone 10 mg tablet 10 mg PO BID 30 days #60 tabs 02/01/23 10/01/23 Rx hydroxyzine HCl 25 mg tablet 25 mg PO TID PRN anxiety #90 tabs 02/01/23 Unknown Rx prednisone 20 mg tablet 40 mg (2 x 20 mg) PO DAILY 10 days 10/01/23 Unknown Rx #19 tabs albuterol sulfate 90 mcg/actuation 2 puff inhalation Q4H PRN PRN 04/23/24 Unknown Rx aerosol inhaler (Ventolin HFA) Wheezing ##1 prednisone 20 mg tablet 40 mg (2 x 20 mg) PO DAILY 5 days 04/23/24 Unknown Rx #10 tabs (more content not included)... Normal [facility] L501.4020on 04-23-2024 TROPONIN-I HS 13 pg/mL Normal 3.0-54.[address] [facility] Comment on above: Result Comment: Adrián shaw Note: New Test Units and Gender Specific Reference Ranges. For more information see Policy Stat Procedure [place] High Sensitivity Troponin (TNIH) and attachments. Performed By: #### L 501.4020 ####[facility] [address] [place], [address] L501.5425on 04-23-2024 TROPONIN-I HS 15 pg/mL Normal 3.0-54.[address] [facility] Comment on above: Order Comment: 1Y Result Comment: Plea se Note: New Test Units and Gender Specific Reference Ranges. For more information see Policy Stat Procedure [place] High Sensitivity Troponin (TNIH) and attachments. Performed By: #### L 500.2500, L501.5425, L100.0100, L5000.0010 ####[facility] [address] [place], [address] M100.678on 04-23-2024 M100.678 Pending SARS-CoV-2 (COVID 19) Negative INFLUENZA A Negative INFLUENZA B Negative RSV PCR Negative Normal [facility] Comment on above: Performed By: #### M 100.678 #### [facility] Laboratory [address] [place], [address] CBC W/Diff, Automatedon 03-12 PATH REV Reviewed Normal [facility] Comment on above: Result Comment: Panc ytopenia. Leukopenia and neutropenia. Normocytic anemia. MODERATE Thrombocytopenia. Clinical correlation necessary. Travis Jerry M.D. 03/24/24 AMENDED REPORT 03/24/24 0857 PATH REV previously reported as: November Performed By: #### L 100.0100, L500.2500 ####[facility] [address] [place], [address] Basic Metabolic Profile (BMP )on 03-22-2024 BUN/CRE 9.3 RATIO Low 10-[address] [facility] Comment on above: Performed By: #### L 100.0100, L500.2500 ####[facility] [address] [place], [address] CA,Total 9.9 mg/dL Normal 8.5-10.[address] [facility] Comment on above: Performed By: #### L 100.0100, L500.2500 ####[facility] [address] [place], [address] Chloride [Moles/Vol] 104 mmol/L Normal 98-107 [facility] Comment on above: Performed By: #### L 100.0100, L500.2500 ####[facility] [address] [place], [address] CO2 [Moles/Vol] 28.0 mmol/L Normal 21.0-32.[address] [facility] Comment on above: Performed By: #### L 100.0100, L500.2500 ####[facility] [address] [place], [address] Creatinine [Mass/Vol] 1.07 mg/dL High 0.55-1.[address] [facility] Comment on above: Result Comment: The validity of the calculated GFR GFRAA in patients over 70 years has not been determined. Clinical correlation is essential. Performed By: #### L 100.0100, L500.2500 ####[facility] [address] [place], [address] EST GFR - AA 68 mL/min Normal >[address] [facility] Comment on above: Result Comment: Afri can [place] GFR Calc Performed By: #### L 100.0100, L500.2500 ####[facility] [address] [place], [address] GAP 7 Normal 5-[address] [facility] Comment on above: Performed By: #### L 100.0100, L500.2500 ####[facility] [address] [place], [address] GFR/1.73 sq M.predicted among non-blacks MDRD (S/P/Bld) [Vol rate/Area] 56 mL/min/{1.73_m2} Low >[address] [facility] Comment on above: Result Comment: Non- GFR Calc Performed By: #### L 100.0100, L500.2500 ####[facility] [address] [place], [address] Glucose [Mass/Vol] 190 mg/dL High 74-106 [facility] Comment on above: Result Comment: Fast ing Glucose result greater than or equal to 126 mg/dL suggests DIABETES MELLITUS per A.D.A. criteria. Performed By: #### L 100.0100, L500.2500 ####[facility] [address] [place], [address] Potassium [Moles/Vol] 4.2 mmol/L Normal 3.5-5.[address] [facility] Comment on above: Performed By: #### L 100.0100, L500.2500 ####[facility] [address] [place], [address] Sodium [Moles/Vol] 139 mmol/L Normal 136-145 [facility] Comment on above: Performed By: #### L 100.0100, L500.2500 ####[facility] [address] [place], [address] Urea nitrogen [Mass/Vol] 10 mg/dL Normal 7-[address] [facility] Comment on above: Performed By: #### L 100.0100, L500.2500 ####[facility] [address] [place], [address] Chest PA and Lateralon 03-22 Chest PA and Lateral [facility] Imaging Services [address] [place] [address] Chest PA and Lateral MR#: [id number] Acct: [id number] Name: MELANIE RESTREPO Rep #: [id number] : 1965 F 58 From: Giovanni wang MD PCP: Dr. See Ricketts MD Status: REG ER Study: Chest PA and Lateral Date of Exam: 03/22/24 Exam# [id number] Ordering Dr: Alfonso Covarrubias MD [id number] STUDY: X-RAY CHEST REASON FOR EXAM: Female, 58 years old. Cough, myalgias TECHNIQUE: PA and lateral views of the chest. COMPARISON: Comparison is made with prior study dated October 01, 2023. FINDINGS: Stable mild increased linear markings at the lung bases slightly more prominent at the left lung base suggestive of scarring. The lungs are clear and expanded. There is no demonstrated pleural abnormality. Normal size heart. Normal mediastinum and brennan. Normal visualized pulmonary arteries. There is atherosclerotic tortuosity of the aortic arch and descending thoracic aorta. There are diffuse degenerative changes of the visualized thoracic spine. Normal visualized ribs, clavicles, and shoulders. There is no demonstrated abnormality of the visualized soft tissue structures of the upper abdomen. RAD/Chest PA and Lateral IMPRESSION: Stable mild increased linear markings at the lung bases slightly more prominent on the left side suggestive of mild scarring. Electronically Signed: Giovanni Amaral MD at 10:16 EDT Reading Location ID and State: [address] [place] [address] , Service support , CC: Dr. See Ricketts MD; Dr. 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 Emergency Department Summary on 03-22-2024 Emergency Department Summary [facility] Medical Records Department [address] [place] [address] Emergency Department Summary 03/22/24 MR#: [id number] Acct: [id number] Name: MELANIE RESTREPO Rep #: [id number] : 1965 58 From: Alfonso Covarrubias MD PCP: Dr. See Ricketts MD Status:REG ER Location: ED HPI History of Present Illness Chief Complaint: Headache Detail of Chief Complaint: Headache, cough, myalgias, nausea Informant: patient and spouse/S.O. Onset/Context/Timing Onset: Days Context: Sudden Onset Timing: Intermittent Quality: Achy and head discomfort Location: Generalized and head Current Severity: Mild Maximum Severity: Moderate Worsened by: Nothing specific Relieved by: Nothing Associated Symptoms Associated Symptoms: Mild congestion Narrative Narrative: Patient is a 58-year-old woman. She has history of COVID many years ago, depression, type 2 diabetes on insulin who presents with a multitude of symptoms. Her blood sugar has been higher than normal the last couple of days. She did not check her blood sugar this morning. She denies fever or chills. She does complain of aches that are total body. She complains of head discomfort. She has intermittent photophobia denies sonophobia. She does endorse congestion and slight sore throat. She has a nonproductive cough. She does report nausea without vomiting or diarrhea. She denies chest discomfort of any type. There is no history of VTE. She denies leg pain, swelling discoloration. She denies rash. She denies joint swelling. She does endorse a sore that is painful under her lower plate. Prior similar symptoms: Yes (Diagnosed with COVID.) Recent Illness/Hospitalization: No PFSH PFS Medical History Liver disease Loss of hearing Wears glasses Wears dentures Post-menopausal History of steroid therapy Insulin dependent diabetes mellitus Restless legs Back pain Dietary restriction Heartburn History of ulceration Colitis Former smoker CPAP (continuous positive airway pressure) dependence Shortness of breath on exertion Asthma Chronic cough Leg cramps History of edema History of echocardiogram History of stress test Cardiology follow-up encounter Disease of gingiva due to infection Incisional hernia Lung infection MDD (major depressive disorder) Allergies Contact with and (suspected) exposure to other viral communicable diseases URI (upper respiratory infection) Concussion History of tobacco use Encounter for screening for malignant neoplasm of lung in former smoker who quit in past 15 years with 30 pack year history or greater Trochanteric bursitis of left hip Right leg weakness Rectal bleed Hemorrhoids Fatigue Elevated transaminase level COPD (chronic obstructive pulmonary disease) Proteinuria Osteoarthritis Obesity Anxiety Hyperglycemia Hyponatremia Essential hypertension Migraines Depression Thrombocytopenia Home Medications ???Medication ???Instructions ???Recorded ???Last Taken ???Type albuterol sulfate 90 mcg/actuation 2 puff inhalation Q6H PRN PRN 07/29/20 10/01/23 History aerosol inhaler Shortness Of Breath aspirin 81 mg chewable tablet 81 mg PO DAILY@0800 07/29/20 10/01/23 History labetalol 100 mg tablet 100 mg PO BID 07/29/20 10/01/23 History lisinopril 40 mg tablet 40 mg PO DAILY 07/29/20 10/01/23 History metformin 1,000 mg tablet 1,000 mg PO BIDCM 07/29/20 10/01/23 History insulin regular hum U-500 conc 500 30 unit subcut LUNCH 02/16/22 10/01/23 History unit/mL(3 mL) subcut pen insulin regular hum U-500 conc 500 130 unit subcut QHS 02/16/22 10/01/23 History unit/mL(3 mL) subcut pen insulin regular hum U-500 conc 500 160 unit subcut BREAKFAST 02/16/22 10/01/23 History unit/mL(3 mL) subcut pen oxycodone-acetaminophen 5 mg-325 1 - 2 tab PO Q6H PRN pain 3 days 11/04/22 Unknown Rx mg tablet #14 tabs bupropion HCl 300 mg 24 hr tablet, 300 mg PO QAM 30 days #30 tabs 02/01/23 10/01/23 Rx extended release buspirone 10 mg tablet 10 mg PO BID 30 days #60 tabs 02/01/23 10/01/23 Rx hydroxyzine HCl 25 mg tablet 25 mg PO TID PRN anxiety #90 tabs 02/01/23 Unknown Rx prednisone 20 mg tablet 40 mg (2 x 20 mg) PO DAILY 10 days 10/01/23 Unknown Rx #19 tabs Allergy/AdvReac Type Severity Reaction Status Date / Time cat dander Allergy Severe Swelling Verified 03/22/24 08:43 Family History Sister TBI (traumatic brain injury) Colon cancer Brother Substance abuse Depression Seizures Father Hypertension Prostate cancer Heart disease Arthritis Myocardial infarction Kidney disease Mother Depression Heart disease Diabetes Asthma Osteoporosis Respiratory disease Surgical History (Reviewed 03/22/24 @ 0 (more content not included)... Normal [facility] M100.678on 03-22-2024 M100.678 Pending SARS-CoV-2 (COVID 19) Negative INFLUENZA A Negative INFLUENZA B Negative RSV PCR Negative Normal [facility] Comment on above: Performed By: #### M 100.678 ####[facility] [address] [place], [address] CBC W Auto Differential pane l (Bld)Ordered By: Gina Márquez on 02-19-2024 Erythrocyte distribution width (RBC) [Ratio] 15.3 % High 11.5 - 15.0 % [facility] Hematocrit (Bld) [Volume fraction] 35.4 % 35.0 - 47.0 % [facility] Hemoglobin (Bld) [Mass/Vol] 11.5 g/dL Low 11.7 - 16.0 g/dL [facility] Interpretation and review of laboratory results Abnormal [facility] IPF 3 [facility] MCH (RBC) [Entitic mass] 27.1 pg 26.0 - 34.0 pg [facility] [employer] MCHC (RBC) [Mass/Vol] 32.5 % 30.5 - 36.0 % [facility] MCV (RBC) [Entitic vol] 83.3 fL 77.0 - 99.0 fL [facility] Platelet mean volume (Bld) [Entitic vol] 10.6 fL 9.0 - 12.7 fL [facility] Platelets (Bld) [#/Vol] 57 10*3/uL Low 140 - 440 10*3/uL [facility] RBC (Bld) [#/Vol] 4.25 10*6/uL 3.80 - 5.2 0 10*6/uL [facility] WBC (Bld) [#/Vol] 2.4 10*3/uL Low 3.6 - 10.7 10*3/uL [facility] CT Head WO contraston 2023 No evidence of an acute intracranial process. Report Dictated on Electronically Signed By: Leonardo Watts MD Electronically Signed Date/Time: 02/19/2024 12:54 PM EDT [facility] Patient Name: MELANIE REA : 1965 Exam Date/Time: 02/19/2024 12:45 Procedure: CT HEAD WO IV CONTRAST Ordering Provider: SOLIS TAMI Reason For Exam: headache CT HEAD WITHOUT CONTRAST CLINICAL INDICATION: Headache Axial noncontrast CT images of the brain were obtained. Coronal and sagittal reconstructions were also made available for interpretation. Dose reduction was employed with automated exposure control. COMPARISON: October 11, 2023. FINDINGS: Mild diffuse cortical volume loss. Nonspecific periventricular and subcortical white matter hypodensities likely reflect areas of small vessel ischemic change in a patient of this age. No high attenuation material is seen to suggest hemorrhage. No definite evidence for acute cortical infarction. No midline shift or mass effect is noted. No fracture is identified on the bone windows. The paranasal sinuses are clear. Atherosclerotic calcification of the carotid siphons is noted. [facility] Leonardo Watts MD - 02/19/2024 Patient Name: [facility] 1965 [id number] Exam Date/Time: 02/19/2024 12:45 Procedure: CT HEAD WO IV CONTRAST Ordering Provider: SOLIS TAMI Reason For Exam: headache CT HEAD WITHOUT CONTRAST CLINICAL INDICATION: Headache Axial noncontrast CT images of the brain were obtained. Coronal and sagittal reconstructions were also made available for interpretation. Dose reduction was employed with automated exposure control. COMPARISON: October 11, 2023. FINDINGS: Mild diffuse cortical volume loss. Nonspecific periventricular and subcortical white matter hypodensities likely reflect areas of small vessel ischemic change in a patient of this age. No high attenuation material is seen to suggest hemorrhage. No definite evidence for acute cortical infarction. No midline shift or mass effect is noted. No fracture is identified on the bone windows. The paranasal sinuses are clear. Atherosclerotic calcification of the carotid siphons is noted. IMPRESSION: No evidence of an acute intracranial process. Report Dictated on Electronically Signed By: Leonardo Watts MD Electronically Signed Date/Time: 02/19/2024 12:54 PM EDT [facility] Radiology Study observation (narrative) [facility] CT Head WO contrastOrdered B y: Leonardo Watts on 02-19-2024 [facility] Work Phone: Comprehensive metabolic 1998 panelon 02-19-2024 Albumin [Mass/Vol] 3.6 g/dL 3.5 - 5.0 g/dL [facility] ALP [Catalytic activity/Vol] 102 U/L 38 - 126 U/L [facility] ALT [Catalytic activity/Vol] 30 U/L 0 - 34 U/L [facility] Anion gap [Moles/Vol] 8 mmol/L 3 - 13 mmol/L [facility] AST [Catalytic activity/Vol] 35 U/L 15 - 46 U/L [facility] Bilirubin [Mass/Vol] 1.4 mg/dL High 0.2 - 1 .3 mg/dL [facility] Calcium [Mass/Vol] 9.2 mg/dL 8.4 - 10. 4 mg/dL [facility] Chloride [Moles/Vol] 104 mmol/L 98 - 10 7 mmol/L [facility] CO2 [Moles/Vol] 26 mmol/L 22 - 30 mmol/L [facility] Creatinine [Mass/Vol] 0.85 mg/dL 0.52 - 1.04 mg/dL [facility] GFR/1.73 sq M.predicted (S/P/Bld) [Vol rate/Area] 80.5 mL/min - PINF [facility] Comment on above: Calculation based on the Chronic Kidney Disease Epidemiology Collaboration (CKD-EPI) equation refit without adjustment for race Glucose [Mass/Vol] 152 mg/dL High 70 - 100 mg/dL [facility] Interpretation and review of laboratory results Abnormal [facility] Potassium [Moles/Vol] 4.1 mmol/L 3.5 - 5.1 mmol/L [facility] Protein [Mass/Vol] 7.2 g/dL 6.3 - 8.2 g/dL [facility] Sodium [Moles/Vol] 138 mmol/L 135 - 145 mmol/L [facility] Urea nitrogen [Mass/Vol] 10 mg/dL 7 - 17 mg/dL [facility] - Microbiology an d Antimicrobial susceptibilityon 02-19-2024 FLUAV RNA EVERETTE+probe Ql (Resp) Not detected Not Detected [facility] FLUBV RNA EVERETTE+probe Ql (Resp) Not detected Not Detected [facility] RSV RNA EVERETTE+probe Ql (Resp) Not detected Not Detected [facility] SARS-CoV-2 (COVID-19) RNA EVERETTE+probe Ql (Resp) Not detected Not Detected [facility] SARS-CoV-2 (COVID-19) RNA EVERETTE+probe Ql (Unsp spec) Methodology: real-time, RT-PCR The SARS-CoV-2, Flu A/B, and RSV Combo assay is intended for in vitro diagnostic use under the FDA Emergency Use Authorization (EUA). This test has not been FDA cleared or approved. In compliance with this authorization, please visit [email or web address]/689037/d ownload or [email or web address]/media/075280/d ownload to access the applicable information sheets. [facility] Manual differential performe d Ql (Bld)on 02-19-2024 Anisocytosis Ql (Bld) Slight Abnormal (none) [facility] Cells Counted Total (Bld) [#] 100 {cells} [facility] Differential Method Manual differential performed [facility] Interpretation and review of laboratory results Abnormal [facility] Leukocyte morphology finding Nom (Bld) Normal [facility] Lymphocytes (Bld) [#/Vol] 0.5 10*3/uL Low 1.0 - 4.3 10*3/uL [facility] Lymphocytes Manual 19 [facility] Lymphocytes/100 WBC (Bld) 19 % 15 - 45 % [facility] Monocytes (Bld) [#/Vol] 0.2 10*3/uL 0.0 - 0.9 10*3/uL [facility] Monocytes Manual 7 [facility] Monocytes/100 WBC (Bld) 7 % 5 - 13 % [facility] Neutrophils (Bld) [#/Vol] 1.8 10*3/uL 1.8 - 7.0 10*3/uL [facility] Neutrophils Manual 74 [facility] Ovalocytes LM Ql (Bld) Slight Abnormal (none) [facility] Platelet morphology finding Nom (Bld) Normal [facility] Polychromasia LM Ql (Bld) Slight Abnormal (none) [facility] Segmented neutrophils/100 WBC (Bld) 74 % 38 - 82 % [facility] WBC corrected for nucl RBC (Bld) [#/Vol] 2.4 10*3/uL Low 3.6 - 10.7 10*3/uL [facility] SARS-CoV-2, Flu A/B, and RSV Comboon 02-19-2024 Interpretation and review of laboratory results Normal [facility] Urinalysis complete panel (U )on 02-19-2024 Bacteria LM.HPF (Urine sed) [#/Area] Few Abnormal Negative /HPF [facility] Bilirubin Ql (U) Negative Negative mg/dL [facility] Clarity (U) Turbid Abnormal Clear [facility] Color (U) Yellow Lt. Yellow [facility] Epithelial cells.squamous LM.HPF (Urine sed) [#/Area] 26-50 Abnormal [facility] Glucose Ql (U) Normal Normal (<70) mg/dL [facility] Hemoglobin Ql (U) 0.03 mg/dL Abnormal Negative [facility] Interpretation and review of laboratory results Abnormal [facility] Ketones (U) [Mass/Vol] Negative Negative mg/dL [facility] Leukocyte esterase Test strip Ql (U) 250 Abnormal Negative Kevin/uL [facility] Mucus LM.HPF (Urine sed) [#/Area] Few Negative /LPF [facility] Nitrite Ql (U) Negative Negative [facility] pH (U) 6.0 [pH] 5.0 - 8.0 pH [facility] Protein (U) [Mass/Vol] 100 mg/dL Abnormal Negative [facility] RBC LM.HPF (Urine sed) [#/Area] 3-5 Abnormal [facility] Specific gravity (U) [Rel density] 1.015 1.005 - 1.030 [facility] Urobilinogen (U) [Mass/Vol] Normal Normal (0-1) mg/dL [facility] WBC LM.HPF (Urine sed) [#/Area] 6-10 Abnormal [facility] - Chemistry and C hemistry - challengeOrdered By: Kati Godfrey on 12-13-2023 Glucose [Mass/Vol] 150 mg/dL [facility] Laboratory - Chemistry and C hemistry - challengeon 12-13-2023 Glucose [Mass/Vol] 150 mg/dL High 70 - 100 mg/dL [facility] Glucose [Mass/Vol] 126 mg/dL High 70 - 100 mg/dL [facility] No Panel InformationOrdered By: Kati Godfrey on 12-13-2023 Interpretation and review of laboratory results Normal [facility] Radiology Study observation (narrative) [facility] No Panel Informationon 12-12 Interpretation and review of laboratory results Abnormal [facility] Performed by: [facility], [address], [facility] [address] CLIA ID: [id number] [facility] Interpretation and review of laboratory results Abnormal [facility] Performed by: [facility], [address], [facility] [address] CLIA ID: [id number] [facility] Radiology Study observation (narrative) [facility] Radiology Study observation (narrative) [facility] Laboratory - Chemistry and C hemistry - challengeon 12-04-2023 Glucose [Mass/Vol] 122 mg/dL High 70 - 100 mg/dL [facility] Glucose [Mass/Vol] 133 mg/dL High 70 - 100 mg/dL [facility] No Panel Informationon 12-03 Interpretation and review of laboratory results Abnormal [facility] Performed by: [facility], [address], [facility] [address] CLIA ID: [id number] [facility] Interpretation and review of laboratory results Abnormal [facility], [address], [facility] [address] CLIA ID: [id number] [facility] Radiology Study observation (narrative) [facility] Radiology Study observation (narrative) [facility] CBC W Auto Differential pane l (Bld)Ordered By: Jennifer Walters on 10-12-2023 Erythrocyte distribution width (RBC) [Ratio] 15.4 % High 11.5 - 15.0 % [facility] Hematocrit (Bld) [Volume fraction] 36.8 % 35.0 - 47.0 % [facility] Hemoglobin (Bld) [Mass/Vol] 11.6 g/dL Low 11.7 - 16.0 g/dL [facility] Interpretation and review of laboratory results Abnormal [facility] IPF 4 [facility] MCH (RBC) [Entitic mass] 26.4 pg 26.0 - 34.0 pg [facility] MCHC (RBC) [Mass/Vol] 31.5 % 30.5 - 36.0 % [facility] MCV (RBC) [Entitic vol] 83.8 fL 77.0 - 99.0 fL [facility] Platelet mean volume (Bld) [Entitic vol] 10.9 fL 9.0 - 12.7 fL [facility] Platelets (Bld) [#/Vol] 65 10*3/uL Low 140 - 440 10*3/uL [facility] RBC (Bld) [#/Vol] 4.39 10*6/uL 3.80 - 5.2 0 10*6/uL [facility] WBC (Bld) [#/Vol] 4.0 10*3/uL 3.6 - 10.7 10*3/uL [facility] Comprehensive metabolic 1998 panelOrdered By: Nesha Giron on 10-12-2023 Albumin [Mass/Vol] 3.6 g/dL 3.5 - 5.0 g/dL [facility] ALP [Catalytic activity/Vol] 92 U/L 38 - 126 U/L [facility] ALT [Catalytic activity/Vol] 27 U/L 0 - 34 U/L [facility] Anion gap [Moles/Vol] 8 mmol/L 3 - 13 mmol/L [facility] AST [Catalytic activity/Vol] 29 U/L 15 - 46 U/L [facility] Bilirubin [Mass/Vol] 1.1 mg/dL 0.2 - 1 .3 mg/dL [facility] Calcium [Mass/Vol] 9.2 mg/dL 8.4 - 10. 4 mg/dL [facility] Chloride [Moles/Vol] 103 mmol/L 98 - 10 7 mmol/L [facility] CO2 [Moles/Vol] 23 mmol/L 22 - 30 mmol/L [facility] Creatinine [Mass/Vol] 0.81 mg/dL 0.52 - 1.04 mg/dL [facility] GFR/1.73 sq M.predicted MDRD (S/P/Bld) [Vol rate/Area] 85.3 mL/min/{1.73_m2} - PINF [facility] Comment on above: Calculation based on the Chronic Kidney Disease Epidemiology Collaboration (CKD-EPI) equation refit without adjustment for race Glucose [Mass/Vol] 248 mg/dL High 70 - 100 mg/dL [facility] Interpretation and review of laboratory results Abnormal [facility] Potassium [Moles/Vol] 4.8 mmol/L 3.5 - 5.1 mmol/L [facility] Protein [Mass/Vol] 7.3 g/dL 6.3 - 8.2 g/dL [facility] Sodium [Moles/Vol] 133 mmol/L Low 135 - 145 mmol/L [facility] Urea nitrogen [Mass/Vol] 22 mg/dL High 7 - 17 mg/dL [facility] - Chemistry and C hemistry - challengeon 10-12-2023 Glucose [Mass/Vol] 337 mg/dL High 70 - 100 mg/dL [facility] Glucose [Mass/Vol] 273 mg/dL High 70 - 100 mg/dL [facility] Glucose [Mass/Vol] 273 mg/dL [facility] Glucose [Mass/Vol] 245 mg/dL High 70 - 100 mg/dL [facility] Glucose [Mass/Vol] 245 mg/dL [facility] Glucose [Mass/Vol] 218 mg/dL High 70 - 100 mg/dL [facility] Glucose [Mass/Vol] 218 mg/dL [facility] Cortisol [Mass/Vol] 21.4 ug/dL [facility] Glucose [Mass/Vol] 207 mg/dL High 70 - 100 mg/dL [facility] Glucose [Mass/Vol] 207 mg/dL [facility] Glucose [Mass/Vol] 126 mg/dL High 70 - 100 mg/dL [facility] Glucose [Mass/Vol] 126 mg/dL [facility] Glucose [Mass/Vol] 90 mg/dL 70 - 100 mg/dL [facility] Glucose [Mass/Vol] 90 mg/dL [facility] Laboratory - Coagulationon 0 10-12-2023 aPTT Coag (PPP) [Time] 22.0 s 20.0 - 30.5 s [facility] INR Coag (PPP) [Relative time] 1.1 {INR} 0.9 - 1.1 [facility] Comment on above: Recommended Anticoag ulant Therapy: SEE BELOW ----- INR of 2.0 - 3.0 : - Prophylaxis of Venous Thrombosis (high-risk surgery) - Treatment of Venous Thrombosis - Treatment of Pulmonary Embolism (Includes tissue heart valves, Acute Myocardial Infarction to prevent systemic embolism, Valvular Heart Disease, and Atrial Fibrillation) ----- INR of 2.5 - 3.5 : - Mechanical Prosthetic Valves (high risk) - If oral anticoagulant therapy is used to prevent Myocardial Infarction PT Coag (Bld) [Time] 11.9 s 9.0 - 12.0 s [facility] - Hematology and Cell countson 10-12-2023 Band form neutrophils (Bld) [#/Vol] 0.0 10*3/uL NINF - 0.0 10*3/uL [facility] Band form neutrophils/100 WBC (Bld) 1 % High NINF - 0 % [facility] Basophils (Bld) [#/Vol] 0.1 10*3/uL 0.0 - 0.2 10*3/uL [facility] Basophils/100 WBC (Bld) 2 % 0 - 2 % [facility] Lymphocytes (Bld) [#/Vol] 0.0 10*3/uL Low 1.0 - 4.3 10*3/uL [facility] Lymphocytes/100 WBC (Bld) 1 % Low 15 - 45 % [facility] Monocytes (Bld) [#/Vol] 0.0 10*3/uL 0.0 - 0.9 10*3/uL [facility] Monocytes/100 WBC (Bld) 1 % Low 5 - 13 % [facility] Neutrophils (Bld) [#/Vol] 3.9 10*3/uL 1.8 - 7.5 10*3/uL [facility] RBC morphology finding Nom (Bld) Normal [facility] Segmented neutrophils/100 WBC (Bld) 96 % High 38 - 82 % [facility] Laboratory - Serology - non- microon 10-12-2023 Cyclic citrullinated peptide IgG Qn U/mL 0.0 - 4.9 U/mL [facility] Comment on above: 0.0 - 4.9 NEGATIVE >= 5.0 POSITIVE No Panel Informationon 10-11 Interpretation and review of laboratory results Abnormal [facility]: [facility], [address] [place] [address] CLIA ID: [id number] [facility] Interpretation and review of laboratory results Abnormal [facility] Performed by: [facility], [address] [place] [address] CLIA ID: [id number] [facility] Interpretation and review of laboratory results Normal [facility] Interpretation and review of laboratory results Abnormal [facility]formed by: [facility], [address] [facility] [address] CLIA ID: [id number] [facility] Interpretation and review of laboratory results Normal [facility] Interpretation and review of laboratory results Normal [facility] Interpretation and review of laboratory results Abnormal [facility] Performed by: [facility], [address] [facility] [address] CLIA ID: [id number] [facility] Interpretation and review of laboratory results Normal [facility] Atypical Lymphocytes Manual [facility] Bands Manual 1 [facility] Basophils Manual 2 [facility] Blasts Manual [facility] Eosinophils Manual [facility] Interpretation and review of laboratory results Abnormal [facility] Lymphocytes Manual 1 [facility] Metamyelocytes Manual [facility] Monocytes Manual 1 [facility] Myelocytes Manual [facility] Neutrophils Manual 96 [facility] Promyelocytes Manual [facility] Unclassified Cells, Manual [facility] Interpretation and review of laboratory results Normal [facility] Sinus rhythm with no rmal rate, intervals and QRS duration. No acute ischemic changes. Nonspecific INTRAVENTRICULAR CONDUCTION DELAY, similar to prior No acute ischemic changes Similar to previous EKG Electronically Signed On 10-12-2023 04:24:23 EDT by Jarad Morales DO - 10/12/2023 IMPRESSION: Sinus rhythm with normal rate, intervals and QRS duration. No acute ischemic changes. Nonspecific INTRAVENTRICULAR CONDUCTION DELAY, similar to prior No acute ischemic changes Similar to previous EKG Electronically Signed On 10-12-2023 04:24:23 EDT by Jarad Ortiz [facility] Before 10am 4.5-22.7 ug/dL After 5pm 1.7-14.1 ug/dL [facility] Interpretation and review of laboratory results Abnormal [facility] Performed by: [facility], [address] [facility] [address] CLIA ID: [id number] [facility] Interpretation and review of laboratory results Normal [facility] Interpretation and review of laboratory results Abnormal [facility] Performed by: [facility], [address] [facility] [address] CLIA ID: [id number] [facility] Interpretation and review of laboratory results Normal [facility] Interpretation and review of laboratory results Normal [facility] Performed by: [facility], [address] [place] [address] [place] [address] CLIA ID: [id number] [facility] Interpretation and review of laboratory results Normal [facility] Radiology Study observation (narrative) [facility] Radiology Study observation (narrative) [facility] Radiology Study observation (narrative) [facility] Radiology Study observation (narrative) [facility] Radiology Study observation (narrative) [facility] Radiology Study observation (narrative) [facility] Radiology Study observation (narrative) [facility] Radiology Study observation (narrative) [facility] Radiology Study observation (narrative) [facility] Radiology Study observation (narrative) [facility] Radiology Study observation (narrative) [facility] Radiology Study observation (narrative) [facility] Radiology Study observation (narrative) [facility] No Panel InformationOrdered By: Jarad Ortiz on 10-12-2023 P Center 57 degrees [facility] [employer] Work Phone: NM Interval 192 ms [facility] Work Phone: QRS Center -62 degrees [facility] Work Phone: QRSD Interval 123 ms [facility] Work Phone: QT Interval 443 ms [facility] Work Phone: QTC Interval 479 ms [facility] Work Phone: T Wave Center 66 degrees [facility] Work Phone: [facility] Work Phone: Vital signsOrdered By: Mynor Ortiz on 10-12-2023 Heart rate 70 /min bpm [facility] Work Phone: CBC W Auto Differential pane l (Bld)Ordered By: Francisca Boo on 10-11-2023 Erythrocyte distribution width (RBC) [Ratio] 15.5 % High 11.5 - 15.0 % [facility] Hematocrit (Bld) [Volume fraction] 41.4 % 35.0 - 47.0 % [facility] Hemoglobin (Bld) [Mass/Vol] 13.1 g/dL 11.7 - 16.0 g/dL [facility] Interpretation and review of laboratory results Abnormal [facility] IPF 4 [facility] MCH (RBC) [Entitic mass] 26.3 pg 26.0 - 34.0 pg [facility] MCHC (RBC) [Mass/Vol] 31.6 % 30.5 - 36.0 % [facility] MCV (RBC) [Entitic vol] 83.1 fL 77.0 - 99.0 fL [facility] Platelet mean volume (Bld) [Entitic vol] 9.8 fL 9.0 - 12.7 fL [facility] Platelets (Bld) [#/Vol] 74 10*3/uL Low 140 - 440 10*3/uL [facility] RBC (Bld) [#/Vol] 4.98 10*6/uL 3.80 - 5.2 0 10*6/uL [facility] WBC (Bld) [#/Vol] 6.1 10*3/uL 3.6 - 10.7 10*3/uL [facility] CT Head WO contraston 2023 1. No acute intracranial finding. Report Dictated on Electronically Signed By: Juan A Bo MD Electronically Signed Date/Time: 10/11/2023 9:02 PM EDT [employer] Patient Name: MELANIE REA : 1965 Exam Date/Time: 10/11/2023 20:59 Procedure: CT HEAD WO IV CONTRAST Ordering Provider: MAX VISHNU Reason For Exam: Mental status change, unknown cause CT BRAIN WITHOUT CONTRAST CLINICAL INDICATION: Mental status change, unknown cause TECHNIQUE: Noncontrast CT scan of the brain. Multiplanar reformations. Dose reduction was employed with automated exposure control. COMPARISON: None FINDINGS: Brain volume is normal for age. No hemorrhage, mass effect, or midline shift. No hydrocephalus. No pathologic extra-axial fluid collection. Normal basal cisterns. No evidence of acute cortical infarct. [facility] [employer] Juan A Bo MD - 10/11/2023 Patient Name: MELANIE TOVAR : 1965 Exam Date/Time: 10/11/2023 20:59 Procedure: CT HEAD WO IV CONTRAST Ordering Provider: MAX VISHNU Reason For Exam: Mental status change, unknown cause CT BRAIN WITHOUT CONTRAST CLINICAL INDICATION: Mental status change, unknown cause TECHNIQUE: Noncontrast CT scan of the brain. Multiplanar reformations. Dose reduction was employed with automated exposure control. COMPARISON: None FINDINGS: Brain volume is normal for age. No hemorrhage, mass effect, or midline shift. No hydrocephalus. No pathologic extra-axial fluid collection. Normal basal cisterns. No evidence of acute cortical infarct. IMPRESSION: 1. No acute intracranial finding. Report Dictated on Electronically Signed By: Juan A Bo MD Electronically Signed Date/Time: 10/11/2023 9:02 PM EDT [facility] Radiology Study observation (narrative) [facility] CT Head WO contrastOrdered B y: Juan A Bo on 10-11-2023 [facility] [employer] Work Phone: Comprehensive metabolic 1998 panelOrdered By: Flavia Villaseñor on 10-11-2023 Albumin [Mass/Vol] 4.4 g/dL 3.5 - 5.0 g/dL [facility] ALP [Catalytic activity/Vol] 111 U/L 38 - 126 U/L [facility] ALT [Catalytic activity/Vol] 30 U/L 0 - 34 U/L [facility] Anion gap [Moles/Vol] 10 mmol/L 3 - 13 mmol/L [facility] AST [Catalytic activity/Vol] 31 U/L 15 - 46 U/L [facility] Bilirubin [Mass/Vol] 1.3 mg/dL 0.2 - 1 .3 mg/dL [facility] Calcium [Mass/Vol] 9.9 mg/dL 8.4 - 10. 4 mg/dL [facility] Chloride [Moles/Vol] 104 mmol/L 98 - 10 7 mmol/L [facility] CO2 [Moles/Vol] 26 mmol/L 22 - 30 mmol/L [facility] Creatinine [Mass/Vol] 0.87 mg/dL 0.52 - 1.04 mg/dL [facility] GFR/1.73 sq M.predicted MDRD (S/P/Bld) [Vol rate/Area] 78.3 mL/min/{1.73_m2} - PINF [facility] Comment on above: Calculation based on the Chronic Kidney Disease Epidemiology Collaboration (CKD-EPI) equation refit without adjustment for race Glucose [Mass/Vol] 27 mg/dL Critically low 70 - 10 0 mg/dL [facility] Interpretation and review of laboratory results Abnormal [facility] Potassium [Moles/Vol] 3.4 mmol/L Low 3.5 - 5.1 mmol/L [facility] Protein [Mass/Vol] 8.7 g/dL High 6.3 - 8.2 g/dL [facility] Sodium [Moles/Vol] 140 mmol/L 135 - 145 mmol/L [facility] Urea nitrogen [Mass/Vol] 19 mg/dL High 7 - 17 mg/dL [facility] - Chemistry and C hemistry - challengeon 10-11-2023 Glucose [Mass/Vol] 108 mg/dL High 70 - 100 mg/dL [facility] Glucose [Mass/Vol] 129 mg/dL High 70 - 100 mg/dL [facility] Glucose [Mass/Vol] 54 mg/dL Low 70 - 100 mg/dL [facility] Glucose [Mass/Vol] 80 mg/dL 70 - 100 mg/dL [facility] - Chemistry and C hemistry - challengeOrdered By: Pinky Copeland on 10-11-2023 Glucose [Mass/Vol] 108 mg/dL [facility] - Hematology and Cell countson 10-11-2023 Lymphocytes (Bld) [#/Vol] 0.4 10*3/uL Low 1.0 - 4.3 10*3/uL [facility] Lymphocytes/100 WBC (Bld) 7 % Low 15 - 45 % [facility] Monocytes (Bld) [#/Vol] 0.7 10*3/uL 0.0 - 0.9 10*3/uL [facility] Monocytes/100 WBC (Bld) 11 % 5 - 13 % [facility] Neutrophils (Bld) [#/Vol] 4.9 10*3/uL 1.8 - 7.5 10*3/uL [facility] RBC morphology finding Nom (Bld) Normal [facility] Segmented neutrophils/100 WBC (Bld) 80 % 38 - 82 % [facility] Variant lymphocytes (Bld) [#/Vol] 0.1 10*3/uL High NINF - 0.0 10*3/uL [facility] Variant lymphocytes/100 WBC (Bld) 2 % High NINF - 0 % [facility] No Panel Informationon 10-10 Interpretation and review of laboratory results Abnormal [facility] Performed by: [facility], [address] [facility] [id number] CLIA ID: [id number] [facility] Interpretation and review of laboratory results Abnormal [facility] Performed by: [facility], [address] [facility] [address] CLIA ID: [id number] [facility] Interpretation and review of laboratory results Abnormal [facility] Performed by: [facility], [address] [facility] [address] CLIA ID: [id number] [facility] Atypical Lymphocytes Manual 2 [facility] Bands Manual [facility] Basophils Manual [facility] Blasts Manual [facility] Eosinophils Manual [facility] Interpretation and review of laboratory results Abnormal [facility] Lymphocytes Manual 7 [facility] Metamyelocytes Manual [facility] Monocytes Manual 11 [facility] Myelocytes Manual [facility] Neutrophils Manual 81 [facility] Promyelocytes Manual [facility] Unclassified Cells, Manual [facility] Interpretation and review of laboratory results Normal [facility] Performed by: [facility], [address] [place] [id number] CLIA ID: [id number] [facility] Radiology Study observation (narrative) [facility] Radiology Study observation (narrative) [facility] Radiology Study observation (narrative) [facility] Radiology Study observation (narrative) [facility] No Panel InformationOrdered By: Pinky Copeland on 10-11-2023 Interpretation and review of laboratory results Normal [facility] Radiology Study observation (narrative) [facility] CBC W Auto Differential pane l (Bld)Ordered By: Zelda Go on 09-30-2023 Basophils (Bld) [#/Vol] 0.0 10*3/uL 0.0 - 0.2 10*3/uL [facility] Basophils/100 WBC (Bld) 0.4 % 0.0 - 2.0 % [facility] Eosinophils (Bld) [#/Vol] 0.0 10*3/uL 0.0 - 0.5 10*3/uL [facility] Eosinophils/100 WBC (Bld) 0.0 % 0.0 - 6.0 % [facility] Erythrocyte distribution width (RBC) [Ratio] 15.4 % High 11.5 - 15.0 % [facility] Hematocrit (Bld) [Volume fraction] 35.6 % 35.0 - 47.0 % [facility] Hemoglobin (Bld) [Mass/Vol] 11.2 g/dL Low 11.7 - 16.0 g/dL [facility] Immature granulocytes (Bld) [#/Vol] 0.0 10*3/uL NINF - 0.1 10*3/uL [facility] Immature granulocytes/100 WBC (Bld) 1.2 % 0.0 - 2.0 % [facility] Interpretation and review of laboratory results Abnormal [facility] IPF 4 [facility] Lymphocytes (Bld) [#/Vol] 0.3 10*3/uL Low 1.0 - 4.3 10*3/uL [facility] Lymphocytes/100 WBC (Bld) 12.9 % Low 15.0 - 45.0 % [facility] MCH (RBC) [Entitic mass] 27.1 pg 26.0 - 34.0 pg [facility] MCHC (RBC) [Mass/Vol] 31.5 % 30.5 - 36.0 % [facility] MCV (RBC) [Entitic vol] 86.2 fL 77.0 - 99.0 fL [facility] Monocytes (Bld) [#/Vol] 0.2 10*3/uL 0.0 - 0.9 10*3/uL [facility] Monocytes/100 WBC (Bld) 8.3 % 5.0 - 13.0 % [facility] Neutrophils (Bld) [#/Vol] 1.9 10*3/uL 1.8 - 7.5 10*3/uL [facility] Neutrophils/100 WBC (Bld) 77.2 % 38.0 - 82.0 % [facility] Nucleated RBC/100 WBC (Bld) [Ratio] 0.0 % [facility] Platelet mean volume (Bld) [Entitic vol] 9.9 fL 9.0 - 12.7 fL [facility] Platelets (Bld) [#/Vol] 62 10*3/uL Low 140 - 440 10*3/uL [facility] RBC (Bld) [#/Vol] 4.13 10*6/uL 3.80 - 5.2 0 10*6/uL [facility] WBC (Bld) [#/Vol] 2.4 10*3/uL Low 3.6 - 10.7 10*3/uL [facility] Cobalamin (Vitamin B12) [Mas s/Vol]on 09-30-2023 Interpretation and review of laboratory results Abnormal [facility] Comprehensive metabolic 1998 panelon 09-30-2023 Albumin [Mass/Vol] 4.0 g/dL 3.5 - 5.0 g/dL [facility] ALP [Catalytic activity/Vol] 118 U/L 38 - 126 U/L [facility] ALT [Catalytic activity/Vol] 20 U/L 0 - 34 U/L [facility] Anion gap [Moles/Vol] 8 mmol/L 3 - 13 mmol/L [facility] AST [Catalytic activity/Vol] 30 U/L 15 - 46 U/L [facility] Bilirubin [Mass/Vol] 1.0 mg/dL 0.2 - 1 .3 mg/dL [facility] Calcium [Mass/Vol] 9.4 mg/dL 8.4 - 10. 4 mg/dL [facility] Chloride [Moles/Vol] 105 mmol/L 98 - 10 7 mmol/L [facility] CO2 [Moles/Vol] 28 mmol/L 22 - 30 mmol/L [facility] Creatinine [Mass/Vol] 1.01 mg/dL 0.52 - 1.04 mg/dL [facility] GFR/1.73 sq M.predicted MDRD (S/P/Bld) [Vol rate/Area] 65.5 mL/min/{1.73_m2} - PINF [facility] Comment on above: Calculation based on the Chronic Kidney Disease Epidemiology Collaboration (CKD-EPI) equation refit without adjustment for race Glucose [Mass/Vol] 199 mg/dL High 70 - 100 mg/dL [facility] Interpretation and review of laboratory results Abnormal [facility] Potassium [Moles/Vol] 4.1 mmol/L 3.5 - 5.1 mmol/L [facility] Protein [Mass/Vol] 7.9 g/dL 6.3 - 8.2 g/dL [facility] Sodium [Moles/Vol] 141 mmol/L 135 - 145 mmol/L [facility] Urea nitrogen [Mass/Vol] 15 mg/dL 7 - 17 mg/dL [facility] Ferritinon 09-30-2023 Ferritin [Mass/Vol] 18 ng/mL 11 - 264 ng/mL [facility] Ferritin [Mass/Vol]on 2023 Interpretation and review of laboratory results Normal [facility] Folateon 09-30-2023 Folate [Mass/Vol] 11.4 ng/mL 2.9 - PINF ng/mL [facility] Folate [Mass/Vol]on 09-30-19 Interpretation and review of laboratory results Normal [facility] Homocysteine, serumon 2023 Homocysteine [Moles/Vol] 13.9 umol/L High 4.7 - 12.6 umol/L [facility] Interpretation and review of laboratory results Abnormal [facility] Iron and Iron binding capaci ty panelon 09-30-2023 Interpretation and review of laboratory results Normal [facility] Iron [Mass/Vol] 60 ug/dL 37 - 170 ug/dL [facility] Iron binding capacity [Mass/Vol] 357 ug/dL 261 - 497 ug/dL [facility] Iron saturation [Mass fraction] 17 % 15 - 50 % [facility] LDH Lactate to pyruvate reac tion [Catalytic activity/Vol]on 09-30-2023 Interpretation and review of laboratory results Normal [facility] Lactate dehydrogenaseon 09-10 LDH Lactate to pyruvate reaction [Catalytic activity/Vol] 137 U/L 120 - 246 U/L [facility] No Panel Informationon 09-29 [facility] Reticulocytes panel (Bld)on 09-30-2023 Reticulocytes/100 RBC (Bld) 1.73 % [facility] Vitamin B12on 09-30-2023 Cobalamin (Vitamin B12) [Mass/Vol] 168 pg/mL Low 239 - 931 pg/mL [facility] Bacteria identified Cx Nom ( U)on 08-28-2023 [facility] CBC panel Auto (Bld)on 08-28 Erythrocyte distribution width (RBC) [Ratio] 15.7 % High 11.0 - 15.0 % [facility] Hematocrit (Bld) [Volume fraction] 36.1 % 35.0 - 45.0 % [facility] Hemoglobin (Bld) [Mass/Vol] 11.9 g/dL 11.7 - 15.5 g/dL [facility] MCH (RBC) [Entitic mass] 28.0 pg 27.0 - 33.0 pg [facility] MCHC (RBC) [Mass/Vol] 33.0 g/dL 32.0 - 36.0 g/dL [facility] MCV (RBC) [Entitic vol] 84.9 fL 80.0 - 100.0 fL [facility] Platelet mean volume (Bld) [Entitic vol] 10.7 fL 7.5 - 12.5 fL [facility] Platelets (Bld) [#/Vol] 58 10*3/uL Low [facility] RBC (Bld) [#/Vol] 4.25 10*6/uL [facility] WBC (Bld) [#/Vol] 3.1 10*3/uL Low [facility] Comprehensive metabolic 1998 panelon 08-28-2023 Albumin [Mass/Vol] 3.6 g/dL 3.6 - 5.1 g/dL [facility] Albumin/Globulin [Mass ratio] 1.1 {ratio} [facility] ALP [Catalytic activity/Vol] 120 U/L 37 - 153 U/L [facility] ALT [Catalytic activity/Vol] 32 U/L High 6 - 29 U/L [facility] AST [Catalytic activity/Vol] 26 U/L 10 - 35 U/L [facility] Bilirubin [Mass/Vol] 0.9 mg/dL 0.2 - 1 .2 mg/dL [facility] Calcium [Mass/Vol] 8.8 mg/dL 8.6 - 10. 4 mg/dL [facility] Chloride [Moles/Vol] 106 mmol/L 98 - 11 0 mmol/L [facility] CO2 [Moles/Vol] 26 mmol/L 20 - 32 mmol/L [facility] Creatinine [Mass/Vol] 0.90 mg/dL 0.50 - 1.03 mg/dL [facility] GFR/1.73 sq M.predicted among non-blacks MDRD (S/P/Bld) [Vol rate/Area] 75 mL/min/{1.73_m2} > OR = 60 mL/min/1.73m 2 [facility] Globulin (S) [Mass/Vol] 3.4 g/dL [facility] Glucose [Mass/Vol] 188 mg/dL High 65 - 99 mg/dL [facility] Comment on above: Fasting reference interval For someone without known diabetes, a glucose value >125 mg/dL indicates that they may have diabetes and this should be confirmed with a follow-up test. Potassium [Moles/Vol] 3.9 mmol/L 3.5 - 5.3 mmol/L [facility] Protein [Mass/Vol] 7.0 g/dL 6.1 - 8.1 g/dL [facility] Sodium [Moles/Vol] 140 mmol/L 135 - 146 mmol/L [facility] Urea nitrogen [Mass/Vol] 14 mg/dL 7 - 25 mg/dL [facility] Urea nitrogen/Creatinine [Mass ratio] SEE NOTE: [facility] Comment on above: Not Reported: BUN an d Creatinine are within reference range. Hemoglobin A1con 08-28-2023 HbA1c (Bld) [Mass fraction] 6.9 % High [facility] Comment on above: For someone without known diabetes, a hemoglobin A1c value of 6.5% or greater indicates that they may have diabetes and this should be confirmed with a follow-up test. For someone with known diabetes, a value <7% indicates that their diabetes is well controlled and a value greater than or equal to 7% indicates suboptimal control. A1c targets should be individualized based on duration of diabetes, age, comorbid conditions, and other considerations. Currently, no consensus exists regarding use of hemoglobin A1c for diagnosis of diabetes for children. HbA1c performed on [employer] platform. Effective 06/29/23 a change in test platforms may have shifted HbA1c results compared to historical results. Lipid 1996 panelon 4 Cholesterol [Mass/Vol] 157 mg/dL [facility] - 200 mg/dL [facility] Cholesterol in HDL [Mass/Vol] 55 mg/dL > OR = 50 [facility] Cholesterol in LDL [Mass/Vol] 86 mg/dL mg/dL (calc) [facility] Comment on above: Reference range: <10 0 Desirable range <100 mg/dL for primary prevention; <70 mg/dL for patients with CHD or diabetic patients with > or = 2 CHD risk factors. LDL-C is now calculated using the Julisa calculation, which is a validated novel method providing better accuracy than the Friedewald equation in the estimation of LDL-C. Ulises HILTON et al. MUNA. 2013;310(19): 8518-1678 (http://education.Instapage/faq/BTT110) Cholesterol non HDL [Mass/Vol] 102 mg/dL [facility] Comment on above: For patients with di abetes plus 1 major ASCVD risk factor, treating to a non-HDL-C goal of <100 mg/dL (LDL-C of <70 mg/dL) is considered a therapeutic option. Cholesterol.total/Ch olesterol in HDL [Mass ratio] 2.9 {ratio} [facility] Triglyceride [Mass/Vol] 74 mg/dL [facility] - 150 mg/dL [facility] No Panel Informationon 08-28 Interpretation and review of laboratory results Abnormal [facility] Urine culture (clean catch)o n 08-28-2023 Bacteria identified Cx Nom (U) SEE NOTE Abnormal [facility] Comment on above: CULTURE, URINE, ROUTINE Micro Number: [id number] Test Status: Final Specimen Source: Urine, clean catch Specimen Quality: Adequate Result: 10,000-49,000 CFU/mL of Escherichia coli COMMENT: Additional non-predominating organism(s) isolated. These organisms, commonly found on external and internal genitalia, are considered colonizers. No further testing performed. E.coli INT LUIS AMOX/CLAVULANATE S <=2 AMPICILLIN S <=2 AMP/SULBACTAM S <=2 CEFAZOLIN NR <=4 2 CEFEPIME S <=1 CEFTAZIDIME S <=1 CEFTRIAXONE S <=1 CIPROFLOXACIN S <=0.25 GENTAMICIN S <=1 IMIPENEM S <=0.25 LEVOFLOXACIN S <=0.12 NITROFURANTOIN S <=16 PIP/TAZOBACTAM S <=4 TOBRAMYCIN S <=1 TRIMETHOPRIM/SULFA S <=20 S=Susceptible I=Intermediate R=Resistant * = Not Tested NR = Not Reported NN = See Therapy Comments THERAPY COMMENTS Note 1: For infections other than uncomplicated UTI caused by E. coli, K. pneumoniae or P. mirabilis: Cefazolin is resistant if LUIS > or = 8 mcg/mL. (Distinguishing susceptible versus intermediate for isolates with LUIS < or = 4 mcg/mL requires additional testing.) Note 2: For uncomplicated UTI caused by E. coli, K. pneumoniae or P. mirabilis: Cefazolin is susceptible if LUIS <32 mcg/mL and predicts susceptible to the oral agents cefaclor, cefdinir, cefpodoxime, cefprozil, cefuroxime, cephalexin and loracarbef. Urinalysis macro (dipstick) panel (U)on 08-26-2023 Bilirubin, UA Small [facility] Blood, UA Small [facility] Glucose, UA Negative [facility] Interpretation and review of laboratory results Abnormal [facility] Ketones, POC (mg/dL) Negative [facility] Leukocytes, UA Trace [facility] Nitrite, UA Negative [facility] pH, UA 6.5 [facility] Protein, UA 100 [facility] Spec Grav, UA 1.015 [facility] Urobilinogen, UA 0.2 [facility] Radiology Study observation (narrative) [facility] Basic metabolic 1998 panelon 05-16-2023 Anion gap [Moles/Vol] 6 mmol/L 3 - 13 mmol/L [facility] Calcium [Mass/Vol] 9.4 mg/dL 8.4 - 10. 4 mg/dL [facility] Chloride [Moles/Vol] 105 mmol/L 98 - 10 7 mmol/L [facility] CO2 [Moles/Vol] 27 mmol/L 22 - 30 mmol/L [facility] Creatinine [Mass/Vol] 0.91 mg/dL 0.52 - 1.04 mg/dL [facility] GFR/1.73 sq M.predicted MDRD (S/P/Bld) [Vol rate/Area] 74.7 mL/min/{1.73_m2} - PINF [facility] Comment on above: Calculation based on the Chronic Kidney Disease Epidemiology Collaboration (CKD-EPI) equation refit without adjustment for race Glucose [Mass/Vol] 170 mg/dL High 70 - 100 mg/dL [facility] Potassium [Moles/Vol] 4.2 mmol/L 3.5 - 5.1 mmol/L [facility] Sodium [Moles/Vol] 138 mmol/L 135 - 145 mmol/L [facility] Urea nitrogen [Mass/Vol] 16 mg/dL 7 - 17 mg/dL [facility] CBC W Auto Differential pane l (Bld)Ordered By: Gina Márquez on 05-16-2023 Erythrocyte distribution width (RBC) [Ratio] 16.5 % High 11.5 - 14.5 % [facility] Hematocrit (Bld) [Volume fraction] 38.1 % 35.0 - 47.0 % [facility] Hemoglobin (Bld) [Mass/Vol] 12.3 g/dL 11.7 - 16.0 g/dL [facility] Interpretation and review of laboratory results Abnormal [facility] MCH (RBC) [Entitic mass] 27.3 pg 26.0 - 34.0 pg [facility] MCHC (RBC) [Mass/Vol] 32.3 % 32.0 - 36.0 % [facility] MCV (RBC) [Entitic vol] 84.4 fL 80.0 - 98.0 fL [facility] Platelet mean volume (Bld) [Entitic vol] 8.4 fL 7.4 - 12.4 fL [facility] Platelets (Bld) [#/Vol] 69 10*3/uL Low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 124 mg/dL <[address] [facility] Work Phone: Comment on above: <200 mg/dL Desirable 200-240 mg/dL Borderline >240 mg/dL High Risk Glucose [Mass/Vol] 137 mg/dL 74-106 [facility] Work Phone: Comment on above: Fasting Glucose resu lt greater than or equal to 126 mg/dL suggests DIABETES MELLITUS per A.D.A. criteria. Potassium [Moles/Vol] 4.4 mmol/L 3.5-5.[address] [facility] Work Phone: Sodium [Moles/Vol] 138 mmol/L 136-145 [facility] Work Phone: Triglyceride [Mass/Vol] 128 mg/dL <[address] [facility] Work Phone: Comment on above: The drugs N-Acetylcy steine and Metamizole may falsely depress this assay.Serum Triglycerides Reference Interval Normal <150 mg/dL Borderline high 150 - 199 mg/dL High 200 - 499 mg/dL Very High > or = 500 mg/dL Laboratory - Chemistry and C hemistry - challengeon 05-22-2022 CO2 [Moles/Vol] 26.0 mmol/L 21.0-32.[address] [facility] Work Phone: Urea nitrogen/Creatinine [Mass ratio] 21.4 mg/mg 10-[address] [facility] Work Phone: No Panel Informationon 05-22 Estimated GFR (MDRD) Amer 76 mL/min >[address] [facility] Work Phone: Comment on above: GFR Calc Estimated GFR (MDRD) Non-Af Amer 63 mL/min >[address] [facility] Work Phone: Comment on above: Non- GFR Calc Serum or plasma calcium kenna urement (mass/volume)on 05-22-2022 Calcium [Mass/Vol] 9.2 mg/dL 8.5-10.1 [facility] Work Phone: Serum or plasma cholesterol in HDL measurement (mass/volume)on 05-22-2022 Cholesterol in HDL [Mass/Vol] 40 mg/dL >[address] [facility] Work Phone: Comment on above: The drugs N-Acetylcy steine and Metamizole may falsely depress this assay. Reference Range HDL <40 mg/dL Low HDL Cholesterol HDL >or= 60 mg/dL High HDL Cholesterol Serum or plasma cholesterol in VLDL measurement (mass/volume)on 05-22-2022 Cholesterol in VLDL [Mass/Vol] 26 mg/dL 5-[address] [facility] Work Phone: Serum or plasma creatinine m easurement (mass/volume)on 05-22-2022 Creatinine [Mass/Vol] 0.98 mg/dL 0.55-1.[address] [facility] Work Phone: Comment on above: The validity of the calculated GFR & GFRAA in patients over 70 years has not been determined. Clinical correlation is essential. Serum or plasma low density lipoprotein (LDL) cholesterol measurement (mass/volume)on 05-22-2022 Cholesterol in LDL [Mass/Vol] 58 mg/dL 0-[address] [facility] Work Phone: Serum or plasma urea nitroge n measurement (mass/volume)on 05-22-2022 Urea nitrogen [Mass/Vol] 21 mg/dL 7-[address] [facility] Work Phone: Thin prep Papanicolaou smear with manual screeningon 05-22-2022 Thin prep Papanicolaou smear with manual screening 6 5-[address] [facility] Work Phone: Absolute lymphocyte counton 03-07-2022 Lymphocytes Auto (Unsp spec) [#/Vol] 1.02 10*3/uL 0.83-4.[address] [facility] Work Phone: Basophil percentageon 2021 Basophils/100 WBC (Bld) 0.3 % 0-[address] [facility] Work Phone: Chloride [Moles/Vol] 106 mmol/L 98-107 [facility] Work Phone: Eosinophils/100 WBC (Bld) 0.0 % 0-[address] [facility] Work Phone: Glucose [Mass/Vol] 321 mg/dL 74-106 [facility] Work Phone: Comment on above: Slight Lipemia, Resu lt may be falsely increased.Glucose result greater than or equal to 200 mg/dLsuggests DIABETES MELLITUS per A.D.A. criteria. Neutrophils (Bld) [#/Vol] 2.5 10*3/uL 2.0-7.[address] [facility] Work Phone: Neutrophils/100 WBC (Bld) 63.5 % 47-[address] [facility] Work Phone: Potassium [Moles/Vol] 4.2 mmol/L 3.5-5.[address] [facility] Work Phone: Comment on above: Slight Hemolysis, Re sult may be falsely increased.-Slight Lipemia, Result may be falsely increased. Sodium [Moles/Vol] 138 mmol/L 136-145 [facility] Work Phone: WBC (Bld) [#/Vol] 3.9 10*3/uL 4.4-11.0 [facility] Work Phone: Blood erythrocytes count (nu mber/volume)on 03-07-2022 RBC (Bld) [#/Vol] 4.46 10*6/uL 4.2-5.4 [facility] Work Phone: Blood hemoglobin measurement (mass/volume)on 03-07-2022 Hemoglobin (Bld) [Mass/Vol] 12.8 g/dL 12.0-15.[address] [facility] Work Phone: [phone] Blood lymphocytes/100 leukoc yteson 03-07-2022 Lymphocytes/100 WBC (Bld) 26.0 % 19-[address] [facility] Work Phone: Blood monocytes/100 leukocyt eson 03-07-2022 Monocytes/100 WBC (Bld) 9.7 % 0-[address] [facility] Work Phone: Blood platelet mean volumeon 03-07-2022 Platelet mean volume (Bld) [Entitic vol] 11.3 fL 6.2-12.[address] [facility] Work Phone: Determination of erythrocyte mean corpuscular volume (MCV)on 03-07-2022 MCV (RBC) [Entitic vol] 89.7 fL 81-[address] [facility] Work Phone: [phone] Hematocrit Auto (Bld) [Volum e fraction]on 03-07-2022 Hematocrit (Bld) [Volume fraction] 40.0 % 37-[address] [facility] Work Phone: Laboratory - Chemistry and C hemistry - challengeon 03-07-2022 CO2 [Moles/Vol] 25.0 mmol/L 21.0-32.[address] [facility] Work Phone: Comment on above: Slight Lipemia, Resu lt may be falsely increased. Urea nitrogen/Creatinine [Mass ratio] 12.7 mg/mg 10-[address] [facility] Work Phone: Laboratory - Hematology and Cell countson 03-07-2022 Erythrocyte distribution width (RBC) [Entitic vol] 52.6 fL 35.1-43.[address] [facility] Work Phone: Erythrocyte distribution width (RBC) [Ratio] 16.2 % 11.6-14.[address] [facility] Work Phone: Immature granulocytes/100 WBC (Bld) 0.500 % 0.0-0.[address] [facility] Work Phone: Comment on above: IG% - Immature Granu locytes (promyelocytes, myelocytes and metamyelocytes) > 1% indicates that a LEFT SHIFT is Present. MCH (RBC) [Entitic mass] 28.7 pg 27.0-32.[address] [facility] Work Phone: Nucleated RBC/100 WBC (Bld) [Ratio] 0 % 0-[address] [facility] Work Phone: MCHC Auto (RBC) [Mass/Vol]on 03-07-2022 MCHC (RBC) [Mass/Vol] 32.0 g/dL 32-[address] [facility] Work Phone: No Panel Informationon 03-07 Troponin I High Sensitivity 18 pg/mL 3.0-54.[address] [facility] Work Phone: Comment on above: Please Note: New Julia t Units and Gender Specific Reference Ranges. For more information see Policy Stat Procedure [place] High Sensitivity Troponin (TNIH) and attachments. Estimated Creatinine Clearance Calc 45.93 ml/min [facility] Work Phone: Estimated GFR (MDRD) Amer 57 mL/min >[address] [facility] Work Phone: Comment on above: GFR Calc Estimated GFR (MDRD) Non-Af Amer 47 mL/min >[address] [facility] Work Phone: Comment on above: Non- GFR Calc Platelets bldon 03-07-2022 Platelets (Bld) [#/Vol] 85 10*3/uL 150-[address] [facility] Work Phone: Serum or plasma calcium kenna urement (mass/volume)on 03-07-2022 Calcium [Mass/Vol] 8.8 mg/dL 8.5-10.1 [facility] Work Phone: Comment on above: Slight Lipemia, Resu lt may be falsely increased. Serum or plasma creatinine m easurement (mass/volume)on 03-07-2022 Creatinine [Mass/Vol] 1.26 mg/dL 0.55-1.[address] [facility] Work Phone: Comment on above: Slight Lipemia, Resu lt may be falsely increased.The validity of the calculated GFR & GFRAA in patients over 70 years has not been determined. Clinical correlation is essential. Serum or plasma urea nitroge n measurement (mass/volume)on 03-07-2022 Urea nitrogen [Mass/Vol] 16 mg/dL 7-[address] [facility] Work Phone: Comment on above: Slight Lipemia, Resu lt may be falsely increased. Thin prep Papanicolaou smear with manual screeningon 03-07-2022 Thin prep Papanicolaou smear with manual screening 7 5-[address] [facility] Work Phone: Absolute lymphocyte counton 02-16-2022 Lymphocytes Auto (Unsp spec) [#/Vol] 0.83 10*3/uL 0.83-4.[address] [facility] Work Phone: Basophil percentageon 2021 Basophils/100 WBC (Bld) 0.6 % 0-[address] [facility] Work Phone: Eosinophils/100 WBC (Bld) 0.0 % 0-[address] [facility] Work Phone: Neutrophils (Bld) [#/Vol] 2.4 10*3/uL 2.0-7.[address] [facility] Work Phone: Neutrophils/100 WBC (Bld) 65.0 % 47-[address] [facility] Work Phone: WBC (Bld) [#/Vol] 3.6 10*3/uL 4.4-11.0 [facility] Work Phone: Blood erythrocytes count (nu mber/volume)on 02-16-2022 RBC (Bld) [#/Vol] 4.61 10*6/uL 4.2-5.4 [facility]: Blood hemoglobin measurement (mass/volume)on 02-16-2022 Hemoglobin (Bld) [Mass/Vol] 12.9 g/dL 12.0-15.[address] [facility] Work Phone: Blood lymphocytes/100 leukoc yteson 02-16-2022 Lymphocytes/100 WBC (Bld) 23.0 % 19-[address] [facility] Work Phone: Blood manual differential co mment interpretation (narrative result)on 02-16-2022 Manual differential comment Clifford (Bld) [Interp] See comment [facility] Work Phone: Comment on above: THROMBOCYTOPENIA NOT ED Blood monocytes/100 leukocyt eson 02-16-2022 Monocytes/100 WBC (Bld) 10.8 % 0-[address] [facility] Work Phone: Blood platelet mean volumeon 02-16-2022 Platelet mean volume (Bld) [Entitic vol] 10.6 fL 6.2-12.[address] [facility] Work Phone: Determination of erythrocyte mean corpuscular volume (MCV)on 02-16-2022 MCV (RBC) [Entitic vol] 88.5 fL 81-[address] [facility] Work Phone: Hematocrit Auto (Bld) [Volum e fraction]on 02-16-2022 Hematocrit (Bld) [Volume fraction] 40.8 % 37-[address] [facility] Work Phone: Laboratory - Hematology and Cell countson 02-16-2022 Erythrocyte distribution width (RBC) [Entitic vol] 50.3 fL 35.1-43.[address] [facility] Work Phone: Erythrocyte distribution width (RBC) [Ratio] 15.8 % 11.6-14.[address] [facility] Work Phone: Immature granulocytes/100 WBC (Bld) 0.600 % 0.0-0.[address] [facility] Work Phone: Comment on above: IG% - Immature Granu locytes (promyelocytes, myelocytes and metamyelocytes) > 1% indicates that a LEFT SHIFT is Present. MCH (RBC) [Entitic mass] 28.0 pg 27.0-32.[address] [facility] Work Phone: Nucleated RBC/100 WBC (Bld) [Ratio] 0 % 0-[address] [facility] Work Phone: MCHC Auto (RBC) [Mass/Vol]on 02-16-2022 MCHC (RBC) [Mass/Vol] 31.6 g/dL 32-[address] [facility] Work Phone: Platelets bldon 02-16-2022 Platelets (Bld) [#/Vol] 80 10*3/uL 150-[address] [facility] Work Phone: Basophil percentageon 2021 Bilirubin [Mass/Vol] 0.80 mg/dL 0.20-1.00 [facility] Work Phone: Comment on above: For patients on eltr ombopag therapy, use of Dimension [place] TBIL is not recommended. Chloride [Moles/Vol] 102 mmol/L 98-107 [facility] Work Phone: Cholesterol [Mass/Vol] 148 mg/dL <[address] [facility] Work Phone: Comment on above: <200 mg/dL Desirable 200-240 mg/dL Borderline >240 mg/dL High Risk Glucose [Mass/Vol] 131 mg/dL 74-106 [facility] Work Phone: Comment on above: Fasting Glucose resu lt greater than or equal to 126 mg/dL suggests DIABETES MELLITUS per A.D.A. criteria. Potassium [Moles/Vol] 3.9 mmol/L 3.5-5.[address] [facility] Work Phone: Protein [Mass/Vol] 8.2 g/dL 6.4-8.2 [facility] Work Phone: Sodium [Moles/Vol] 136 mmol/L 136-145 [facility] Work Phone: Triglyceride [Mass/Vol] 299 mg/dL <[address] [facility] Work Phone: Comment on above: The drugs N-Acetylcy steine and Metamizole may falsely depress this assay.Serum Triglycerides Reference Interval Normal <150 mg/dL Borderline high 150 - 199 mg/dL High 200 - 499 mg/dL Very High > or = 500 mg/dL Direct bilirubinon 2 Bilirubin.direct [Mass/Vol] 0.23 mg/dL 0.00-0.[address] [facility] Work Phone: Laboratory - Chemistry and C hemistry - challengeon 11-07-2021 ALP [Catalytic activity/Vol] 131 U/L 45-[address] [facility] Work Phone: ALT [Catalytic activity/Vol] 53 U/L 13-[address] [facility] Work Phone: CO2 [Moles/Vol] 30.0 mmol/L 21.0-32.[address] [facility] Work Phone: Globulin (S) [Mass/Vol] 4.7 g/dL 2.2-4.[address] [facility] Work Phone: Urea nitrogen/Creatinine [Mass ratio] 15.8 mg/mg 10-[address] [facility] Work Phone: No Panel Informationon 11-07 Estimated GFR (MDRD) Amer 64 mL/min >[address] [facility] Work Phone: Comment on above: GFR Calc Estimated GFR (MDRD) Non-Af Amer 53 mL/min >[address] [facility] Work Phone: Comment on above: Non- GFR Calc Urine Microalbumin/Creatin ine Ratio 515.5 mg/g CRE <[address] [facility] Work Phone: Serum or plasma albumin kenna urement (mass/volume)on 11-07-2021 Albumin [Mass/Vol] 3.5 g/dL 3.2-5.0 [facility] Work Phone: Serum or plasma calcium kenna urement (mass/volume)on 11-07-2021 Calcium [Mass/Vol] 9.7 mg/dL 8.5-10.1 [facility] Work Phone: Serum or plasma cholesterol in HDL measurement (mass/volume)on 11-07-2021 Cholesterol in HDL [Mass/Vol] 39 mg/dL >[address] [facility] Work Phone: Comment on above: The drugs N-Acetylcy steine and Metamizole may falsely depress this assay. Reference Range HDL <40 mg/dL Low HDL Cholesterol HDL >or= 60 mg/dL High HDL Cholesterol Serum or plasma cholesterol in VLDL measurement (mass/volume)on 11-07-2021 Cholesterol in VLDL [Mass/Vol] 60 mg/dL 5-[address] [facility] Work Phone: Serum or plasma creatinine m easurement (mass/volume)on 11-07-2021 Creatinine [Mass/Vol] 1.14 mg/dL 0.55-1.[address] [facility] Work Phone: Comment on above: The validity of the calculated GFR & GFRAA in patients over 70 years has not been determined. Clinical correlation is essential. Serum or plasma low density lipoprotein (LDL) cholesterol measurement (mass/volume)on 11-07-2021 Cholesterol in LDL [Mass/Vol] 49 mg/dL 0-[address] [facility] Work Phone: Serum or plasma urea nitroge n measurement (mass/volume)on 11-07-2021 Urea nitrogen [Mass/Vol] 18 mg/dL 7-[address] [facility] Work Phone: Thin prep Papanicolaou smear with manual screeningon 11-07-2021 Thin prep Papanicolaou smear with manual screening 33 U/L 15-[address] [facility] Work Phone: Thin prep Papanicolaou smear with manual screening 4 5-[address] [facility] Work Phone: Thin prep Papanicolaou smear with manual screening 199.0 mg/L NO RANGE EST. [facility] Work Phone: Urine creatinine measurement (mass/volume)on 11-07-2021 Creatinine (U) [Mass/Vol] 38.60 mg/dL NO RANGE EST. [facility] Work Phone: CBCon 06-14-2020 Erythrocyte distribution width (RBC) [Ratio] 16.7 % High 11.5 - 14.5 % [place] Hematocrit (Bld) [Volume fraction] 40.4 % 35 - 47 % [place] Hemoglobin (Bld) [Mass/Vol] 13.3 g/dL 11.7 - 16 g/dL [place] Interpretation and review of laboratory results Abnormal [place] MCH (RBC) [Entitic mass] 30.0 pg 26 - 34 pg [place] MCHC (RBC) [Mass/Vol] 32.9 % 32 - 36 % [place] MCV (RBC) [Entitic vol] 91.2 fL 79 - 98 fL [place] Platelet mean volume (Bld) [Entitic vol] 8.6 fL 7.4 - 10.4 fL [place] Platelets (Bld) [#/Vol] 88 10*3/uL Low 140 - 440 10*3/uL [place] RBC (Bld) [#/Vol] 4.43 10*6/uL 3.8 - 5.2 10*6/uL [place] WBC (Bld) [#/Vol] 5.8 10*3/uL 3.6 - 10.7 10*3/uL [place] Test Performed by [facility], [address] [place] [address] , [address] CR Chest PA/LATon 06-14-2020 CR Chest PA/LAT Patient Name: MELANIE FREY Diagnostic Radiology Exam Date/Time 06/14/2020 09:36:43 EST Exam CR Chest PA/LAT Ordering Physician JANNA RAMOS KRISTINA Accession Number [id number] CPT4 Codes 93811 () Reason For Exam Chest pain on breathing Report PA and lateral chest CLINICAL INDICATION: Chest pain with breathing COMPARISON: 04/04/2020 and 11/22/2018 The cardiac silhouette is not enlarged. Lungs appear well inflated. Interstitial markings are mildly coarse but unchanged compared to prior exams. There is no focal acute pulmonary infiltrate noted. No pleural effusions are identified. Osseous structures show no acute abnormality. IMPRESSION: No acute intrathoracic abnormality is identified Report Dictated on Final Dictating Physician: MD DIAZ DIANE Signed Date and Time: 06/14/2020 9:52 am Signed by: MD DIAZ DIANE Transcribed Date and Time: 06/14/2020 9:53 Normal [facility] D-Dimer, Innovanceon 020 D-Dimer, Innovance < 0.19 Normal <0.19-0.50 [facility] Comment on above: Result Comment: Inno aldridge D-Dimer values of <0.50 mg/L FEU can be used in combination with a pre-test probability model (e.g. Well's) to exclude pulmonary embolism (PE) disease, as well as an aid in the diagnosis of deep vein thrombosis (DVT). Performed By: #### H ALEXANDER GOMEZ ####[facility] [place] [address] D-Dimer, Quantitativeon D-Dimer, Quant <0.19 <0.19 - 0.50 mg/L [facility], [place] Comment on above: Innovance D-Dimer va lues of <0.50 mg/L FEU can be used in combination with a pre-test probability model (e.g. Well's) to exclude pulmonary embolism (PE) disease, as well as an aid in the diagnosis of deep vein thrombosis (DVT). Test Performed by [facility], [address] , [place], [place] [id number] [place] [address], [place] Hemogramon 06-14-2020 Erythrocyte distribution width (RBC) [Ratio] 16.7 % High 11.5-14.5 [facility] Comment on above: Performed By: #### H JASON DDI2 ####[facility] [place] [address] Hematocrit (Bld) [Volume fraction] 40.4 % Normal 35.0-47.0 [facility] Comment on above: Performed By: #### H JASON DDI2 ####[facility] [place] [address] Hemoglobin (Bld) [Mass/Vol] 13.3 g/dL Normal 11.7-16.0 [facility] Comment on above: Performed By: #### H JASON DDI2 ####[facility] [place] [address] MCH (RBC) [Entitic mass] 30.0 pg Normal 26.0-34.0 [facility] Comment on above: Performed By: #### H JASON DDI2 ####[facility] [place] [address] MCHC (RBC) [Mass/Vol] 32.9 % Normal 32.0-36.0 [facility] Comment on above: Performed By: #### H JASON DDI2 ####[facility] [place] [address] MCV (RBC) [Entitic vol] 91.2 fL Normal 79.0-98.0 [facility] Comment on above: Performed By: #### H JASON DDI2 ####[facility] [place] [address] Platelet mean volume (Bld) [Entitic vol] 8.6 fL Normal 7.4-10.4 [facility] Comment on above: Performed By: #### H EMOGracie, DDI2 ####[facility] [place] [address] Platelets (Bld) [#/Vol] 88 10*3/uL Low 140-440 [facility] Comment on above: Performed By: #### H EMOG, DDI2 ####[facility] [place] [address] RBC (Bld) [#/Vol] 4.43 10*6/uL Normal 3.80-5.20 [facility] Comment on above: Performed By: #### H EMOG, DDI2 ####[facility] [place] [address] WBC (Bld) [#/Vol] 5.8 10*3/uL Normal 3.6-10.7 [facility] Comment on above: Performed By: #### H EMOG, DDI2 ####[facility] [place] [address] XR CHEST (2 VW)on 06-14-2020 [place], [facility] Incoming Radiology Results From [facility] - 06/14/2020 9:53 AM EST Patient Name: MELANIE RESTREPO ---Diagnostic Radiology--- Exam Date/Time 06/14/2020 09:36:43 EST Exam CR Chest PA/LAT Ordering Physician JANNA RAMOS KRISTINA Accession Number [id number] CPT4 Codes 37453 () Reason For Exam Chest pain on breathing Report PA and lateral chest CLINICAL INDICATION: Chest pain with breathing COMPARISON: 04/04/2020 and 11/22/2018 The cardiac silhouette is not enlarged. Lungs appear well inflated. Interstitial markings are mildly coarse but unchanged compared to prior exams. There is no focal acute pulmonary infiltrate noted. No pleural effusions are identified. Osseous structures show no acute abnormality. IMPRESSION: No acute intrathoracic abnormality is identified Report Dictated on --- Final --- Dictating Physician: MD DIAZ DIANE Signed Date and Time: 06/14/2020 9:52 am Signed by: MD DIAZ DIANE Transcribed Date and Time: 06/14/2020 9:53 [facility] [place], [place] Patient Name: MELANIE FREY ---Diagnostic Radiology--- Exam Date/Time 06/14/2020 09:36:43 EST Exam CR Chest PA/LAT Ordering Physician JANAN RAMOS NALDO Accession Number [id number] CPT4 Codes 66759 () Reason For Exam Chest pain on breathing Report PA and lateral chest CLINICAL INDICATION: Chest pain with breathing COMPARISON: 04/04/2020 and 11/22/2018 The cardiac silhouette is not enlarged. Lungs appear well inflated. Interstitial markings are mildly coarse but unchanged compared to prior exams. There is no focal acute pulmonary infiltrate noted. No pleural effusions are identified. Osseous structures show no acute abnormality. IMPRESSION: No acute intrathoracic abnormality is identified Report Dictated on --- Final --- Dictating Physician: MD DIAZ DIANE Signed Date and Time: 06/14/2020 9:52 am Signed by: MD DIAZ DIANE Transcribed Date and Time: 06/14/2020 9:53 [facility], [place] Creatinine, Random Urineon Creatinine (U) [Mass/Vol] 38.7 mg/dL No Range [place] Creatinine, Ur Randomon 04-11 Creatinine, Ur Random 38.7 mg/dL Normal No Range [facility] Comment on above: Performed By: #### T PUR, CRTUR, RENL3, URIC3 ####[facility] [employer] [address] [place] [address] Other04-20-2020 Test Performed by [facility], [facility] [address] [place], [place] [id number] [place] [address], [place] Test Performed by [facility], [address] , [place], [place] [id number] [place] [address], [place] Protein, Ur Randomon 020 Protein [Mass/Vol] 107 mg/dL High No Range [facility] [employer] [facility] Comment on above: Performed By: #### T PUR, CRTUR, RENL3, URIC3 ####[facility] [place] [address] Protein, urine, randomon Interpretation and review of laboratory results Abnormal [facility] Protein (U) [Mass/Vol] 107 mg/dL High No Range [facility] [place], [place] Renal Functionon 04-20-2020 Calcium [Mass/Vol] 9.6 mg/dL Normal 8.4-10.4 [facility] Comment on above: Performed By: #### T PUR, CRTUR, RENL3, URIC3 ####[facility] [place] [address] Phosphate [Mass/Vol] 3.5 mg/dL Normal 2.5-4.5 [facility] Comment on above: Performed By: #### T PUR, CRTUR, RENL3, URIC3 ####[facility] [place] [address] Anion gap [Moles/Vol] 9 Normal [facility] Comment on above: Performed By: #### T PUR, CRTUR, RENL3, URIC3 ####[facility] [place] [address] CO2 [Moles/Vol] 32 mmol/L High 22-30 [facility] Comment on above: Performed By: #### T PUR, CRTUR, RENL3, URIC3 ####[facility] [place] [address] Creatinine [Mass/Vol] 0.95 mg/dL Normal 0.52-1.25 [facility] Comment on above: Performed By: #### T PUR, CRTUR, RENL3, URIC3 ####[facility] [place] [address] GFR/1.73 sq M predicted among blacks MDRD (S/P/Bld) [Vol rate/Area] 79.3 mL/min/{1.73_m2} Normal >60 [facility] Comment on above: Performed By: #### T PUR, CRTUR, RENL3, URIC3 ####[facility] [place] [address] GFR/1.73 sq M predicted among non-blacks MDRD (S/P/Bld) [Vol rate/Area] 68.4 mL/min/{1.73_m2} Normal >60 [facility] Comment on above: Result Comment: KDIG O guidelines provide the following GFR categories: Stage GFR(ml/min/1.73 m2) Terms G1 >=90 Normal or high G2 60-89 Mildly decreased* G3a 45-59 Mildly to moderately decreased G3b 30-44 Moderately to severely decreased G4 15-29 Severely decreased G5 <15 Kidney failure *Relative to young adult level. In the absence of evidence of kidney damage, neither GFR category G1 nor G2 fulfill the criteria for CKD. The CKD-EPI equation is validated in individuals 18 years of age and older. Currently the best equation for estimating glomerular filtration rate (GFR) from serum creatinine in children is the Bedside Sanders equation. It is less accurate in patients with extremes of muscle mass, restriction of dietary protein, ingestion of creatine, extra-renal metabolism of creatinine, or treatment with medications that affect renal tubular creatinine secretion. Performed By: #### T PUR, CRTUR, RENL3, URIC3 ####[facility] [place] [address] Glucose [Mass/Vol] 374 mg/dL High 70-100 [facility] Comment on above: Performed By: #### T PUR, CRTUR, RENL3, URIC3 ####[facility] [place] [address] Urea nitrogen [Mass/Vol] 21 mg/dL High 7-20 [facility] Comment on above: Performed By: #### T PUR, CRTUR, RENL3, URIC3 ####[facility] [place] [address] Albumin [Mass/Vol] 4.1 g/dL Normal 3.5-5.0 [facility] Comment on above: Performed By: #### T PUR, CRTUR, RENL3, URIC3 ####[facility] [place] [address] Chloride [Moles/Vol] 94 mmol/L Low 98-107 [facility] Comment on above: Performed By: #### T PUR, CRTUR, RENL3, URIC3 ####[facility] [place] [address] Potassium [Moles/Vol] 4.0 mmol/L Normal 3.5-5.1 [facility] Comment on above: Performed By: #### T PUR, CRTUR, RENL3, URIC3 ####[facility] [place] [address] Sodium [Moles/Vol] 134 mmol/L Low 135-145 [facility] Comment on above: Performed By: #### T PUR, CRTUR, RENL3, URIC3 ####[facility] [place] [address] Renal Function Panelon 04-20 Albumin [Mass/Vol] 4.1 g/dL 3.5 - 5 g/dL [place], [place] Anion gap [Moles/Vol] 9 mmol/L [facility], [place] Calcium [Mass/Vol] 9.6 mg/dL 8.4 - 10. 4 mg/dL [place] Chloride [Moles/Vol] 94 mmol/L Low 98 - 10 7 mmol/L [place] CO2 [Moles/Vol] 32 mmol/L High 22 - 30 mmol/L [place] Creatinine [Mass/Vol] 0.95 mg/dL 0.52 - 1.25 mg/dL [place] EGFR IF NonAfrican Central African 68.4 mL/min >60 [place] Comment on above: KDIGO guidelines pro vide the following GFR categories: Stage GFR(ml/min/1.73 m2) Terms G1 >=90 Normal or high G2 60-89 Mildly decreased* G3a 45-59 Mildly to moderately decreased G3b 30-44 Moderately to severely decreased G4 15-29 Severely decreased G5 <15 Kidney failure *Relative to young adult level. In the absence of evidence of kidney damage, neither GFR category G1 nor G2 fulfill the criteria for CKD. The CKD-EPI equation is validated in individuals 18 years of age and older. Currently the best equation for estimating glomerular filtration rate (GFR) from serum creatinine in children is the Bedside Sanders equation. It is less accurate in patients with extremes of muscle mass, restriction of dietary protein, ingestion of creatine, extra-renal metabolism of creatinine, or treatment with medications that affect renal tubular creatinine secretion. GFR/1.73 sq M predicted among blacks MDRD (S/P/Bld) [Vol rate/Area] 79.3 mL/min/{1.73_m2} >60 [place] Glucose [Mass/Vol] 374 mg/dL High 70 - 100 mg/dL [place] Interpretation and review of laboratory results Abnormal [place] Phosphate [Mass/Vol] 3.5 mg/dL 2.5 - 4 .5 mg/dL [place] Potassium [Moles/Vol] 4.0 mmol/L 3.5 - 5.1 mmol/L [place] Sodium [Moles/Vol] 134 mmol/L Low 135 - 145 mmol/L [place] Urea nitrogen [Mass/Vol] 21 mg/dL High 7 - 20 mg/dL [place] Uric Acidon 04-20-2020 Urate [Mass/Vol] 5.1 mg/dL Normal 2.5-8.5 [facility] Comment on above: Performed By: #### T PUR, CRTUR, RENL3, URIC3 ####[facility] [place] [address] Urate [Mass/Vol] 5.1 mg/dL 2.5 - 8.5 mg/dL [place] Basic Metabolic Panelon 03-13 Anion gap [Moles/Vol] 10 Normal [facility] Comment on above: Performed By: #### H EMDF, BMP3, TROPN #### [facility] [address] [place] [address] Calcium [Mass/Vol] 9.9 mg/dL Normal 8.4-10.4 [facility] Comment on above: Performed By: #### H EMDF, BMP3, TROPN #### [facility] [address] [place] [address] CO2 [Moles/Vol] 28 mmol/L Normal 22-30 [facility] Comment on above: Performed By: #### H EMDF, BMP3, TROPN #### [facility] [address] [place] [address] Creatinine [Mass/Vol] 0.90 mg/dL Normal 0.52-1.25 [facility] Comment on above: Performed By: #### H EMDF, BMP3, TROPN #### [facility] [address] [place] [address] GFR/1.73 sq M predicted among blacks MDRD (S/P/Bld) [Vol rate/Area] 84.7 mL/min/{1.73_m2} Normal >60 [facility] Comment on above: Performed By: #### H EMDF, BMP3, TROPN #### [facility] [address] [place] [address] GFR/1.73 sq M predicted among non-blacks MDRD (S/P/Bld) [Vol rate/Area] 73.1 mL/min/{1.73_m2} Normal >60 [facility] Comment on above: Result Comment: KDIG O guidelines provide the following GFR categories: Stage GFR(ml/min/1.73 m2) Terms G1 >=90 Normal or high G2 60-89 Mildly decreased* G3a 45-59 Mildly to moderately decreased G3b 30-44 Moderately to severely decreased G4 15-29 Severely decreased G5 <15 Kidney failure *Relative to young adult level. In the absence of evidence of kidney damage, neither GFR category G1 nor G2 fulfill the criteria for CKD. The CKD-EPI equation is validated in individuals 18 years of age and older. Currently the best equation for estimating glomerular filtration rate (GFR) from serum creatinine in children is the Bedside Sanders equation. It is less accurate in patients with extremes of muscle mass, restriction of dietary protein, ingestion of creatine, extra-renal metabolism of creatinine, or treatment with medications that affect renal tubular creatinine secretion. Performed By: #### H EMDF, BMP3, TROPN #### [facility] [address] [place] [address] Glucose [Mass/Vol] 355 mg/dL High 70-100 [facility] Comment on above: Performed By: #### H EMDF, BMP3, TROPN #### [facility] [address] [place] [address] Urea nitrogen [Mass/Vol] 21 mg/dL High 7-20 [facility] Comment on above: Performed By: #### H EMDF, BMP3, TROPN #### [facility] [address] [place] [address] Chloride [Moles/Vol] 94 mmol/L Low 98-107 [facility] Comment on above: Performed By: #### H EMDF, BMP3, TROPN #### [facility] [address] [place] [address] Potassium [Moles/Vol] 4.0 mmol/L Normal 3.5-5.1 [facility] Comment on above: Performed By: #### H EMDF, BMP3, TROPN #### [facility] [address] [place] [address] Sodium [Moles/Vol] 133 mmol/L Low 135-145 [facility] Comment on above: Performed By: #### H EMDF, BMP3, TROPN #### [facility] [address] [place] [address] Anion gap [Moles/Vol] 10 mmol/L [place] Calcium [Mass/Vol] 9.9 mg/dL 8.4 - 10. 4 mg/dL [place] Chloride [Moles/Vol] 94 mmol/L Low 98 - 10 7 mmol/L [place] CO2 [Moles/Vol] 28 mmol/L 22 - 30 mmol/L [place] Creatinine [Mass/Vol] 0.9 mg/dL 0.52 - 1.25 mg/dL [place] EGFR IF NonAfrican Central African 73.1 mL/min >60 [place] Comment on above: KDIGO guidelines pro vide the following GFR categories: Stage GFR(ml/min/1.73 m2) Terms G1 >=90 Normal or high G2 60-89 Mildly decreased* G3a 45-59 Mildly to moderately decreased G3b 30-44 Moderately to severely decreased G4 15-29 Severely decreased G5 <15 Kidney failure *Relative to young adult level. In the absence of evidence of kidney damage, neither GFR category G1 nor G2 fulfill the criteria for CKD. The CKD-EPI equation is validated in individuals 18 years of age and older. Currently the best equation for estimating glomerular filtration rate (GFR) from serum creatinine in children is the Bedside Sanders equation. It is less accurate in patients with extremes of muscle mass, restriction of dietary protein, ingestion of creatine, extra-renal metabolism of creatinine, or treatment with medications that affect renal tubular creatinine secretion. GFR/1.73 sq M predicted among blacks MDRD (S/P/Bld) [Vol rate/Area] 84.7 mL/min/{1.73_m2} >60 [place] Glucose [Mass/Vol] 355 mg/dL High 70 - 100 mg/dL [place] Interpretation and review of laboratory results Abnormal [place] Potassium [Moles/Vol] 4.0 mmol/L 3.5 - 5.1 mmol/L [place] Sodium [Moles/Vol] 133 mmol/L Low 135 - 145 mmol/L [place] Urea nitrogen [Mass/Vol] 21 mg/dL High 7 - 20 mg/dL [place] Test Performed by [facility], [address] [place], [place], [place] [address] [place], [place] CR Chest Portableon 04-04-20 20 CR Chest Portable Patient Name: MELANIE FREY Diagnostic Radiology Exam Date/Time 04/04/2020 16:51:47 EDT Exam CR Chest Portable Ordering Physician [id number] BRUNA REINOSO Accession Number [id number] CPT4 Codes 02017 () Reason For Exam Chest pain Report CHEST: CLINICAL INDICATION: Chest pain TECHNIQUE: AP portable chest COMPARISON: 11/22/2018 FINDINGS: The cardiomediastinal silhouette appears unchanged from the prior exam. The lungs are clear. There is no sizable pleural effusion. The osseous structures are unremarkable. IMPRESSION: No acute process. Report Dictated on Final Dictating Physician: MD GONZALEZ NICHOLAS Signed Date and Time: 04/04/2020 4:44 pm Signed by: MD GONZALEZ NICHOLAS Transcribed Date and Time: 04/04/2020 4:51 Normal [facility] ED Provider Noteon 0 ED Provider Note Emergency Department Encounter [facility] ED Patient: Melanie Restrepo : 1965 Date of Evaluation: 04/04/2020 ED Provider: HERMES Carvajal EDcare was supervised by Dr. Bright who independently examined and evaluated the patient. Please see their attestation note for further details. Chief Complaint Chief Complaint Patient presents with ? Chest Pain Mid-sternal CP that started last night and radiates to her back. Pt stated she is having SOB BUT NOT ANY WORSE THAN NORMAL [place] (Location/Symptom, Timing/Onset, Context/Setting, Quality, Duration, Modifying Factors, Severity) Note limiting factors. Melanie Restrepo is a 54 y.o. female who presents to the emergency department complaining of substernal chest pain that radiates to her back and left shoulder. Patient states this is going for the past 2 days. Patient states that it got worse yesterday and today. Patient states that she has been under a lot of stress lately, recently lost her job. Patient states that the pain feels better once she burps. Patient Dr. primary care provider who told her to come to the emergency department for evaluation. Patient denies nausea, vomiting, shortness of breath, abdominal pain, cough, hemoptysis, hematemesis, extremity swelling, fevers, chills. ROS: Review of Systems 14 systems reviewed and otherwise acutely negative except as in the [place]. Past History Past Medical History: Diagnosis Date ? Anxiety ? Arthritis ? Chest pain ? Depression ? Diabetic nephropathy (HCC) ? Elevated transaminase level ? Fatigue ? GERD (gastroesophageal reflux disease) ? Headache(784.0) ? Hemorrhoids ? Hyperlipidemia ? Hypertension ? Low back pain ? Neuropathic pain ? Obesity ? DONNA (obstructive sleep apnea) ? Rectal bleed ? Right leg weakness ? Trochanteric bursitis of left hip Bilateral ? Type II or unspecified type diabetes mellitus without mention of complication, not stated as uncontrolled ? Uncontrolled type 2 diabetes mellitus with complication (HCC) 02/19/2015 Past Surgical History: Procedure Laterality Date ? CARDIAC CATHETERIZATION 06/03/2018 ? CARPAL TUNNEL RELEASE ? CHOLECYSTECTOMY ? COLONOSCOPY 2011 ? ENDOMETRIAL ABLATION ? TONSILLECTOMY AND ADENOIDECTOMY Social History Socioeconomic History ? Marital status: Single Spouse name: None ? Number of children: None ? Years of education: None ? Highest education level: None Occupational History ? None Social Needs ? Financial resource strain: Not hard at all ? Food insecurity Worry: Never true Inability: Never true ? Transportation needs Medical: No Non-medical: No Tobacco Use ? Smoking status: Former Smoker Packs/day: 2.00 Years: 20.00 Pack years: 40.00 Last attempt to quit: 09/01/2013 Years since quittin.5 ? Smokeless tobacco: Never Used Substance and Sexual Activity ? Alcohol use: Not Currently Alcohol/week: 0.0 standard drinks Frequency: Never Binge frequency: Never ? Drug use: No ? Sexual activity: None Lifestyle ? Physical activity Days per week: None Minutes per session: None ? Stress: None Relationships ? Social connections Talks on phone: None Gets together: None Attends jewish service: None Active member of club or organization: None Attends meetings of clubs or organizations: None Relationship status: None ? Intimate partner violence Fear of current or ex partner: None Emotionally abused: None Physically abused: None Forced sexual activity: None Other Topics Concern ? None Social History Narrative ? None Medications/Allergies Discharge Medication List as of 04/04/2020 8:14 PM CONTINUE these medications which have NOT CHANGED Details metFORMIN (GLUCOPHAGE) 1000 MG tablet take 1 tablet by mouth twice a day with meals, Disp-60 tablet,R-2Normal labetalol (NORMODYNE) 100 MG tablet take 1 tablet by mouth twice a day, Disp-60 tablet,R-5Normal venlafaxine (EFFEXOR XR) 150 MG extended release capsule take 1 capsule by mouth once daily, Disp-30 capsule,R-5Normal fenofibrate (TRIGLIDE) 160 MG tablet take 1 tablet by mouth once daily, Disp-30 tablet,R-5Normal insulin regular human (HUMULIN R U-500 KWIKPEN) 500 UNIT/ML SOPN concentrated injection pen inject 130 units before breakfast and 85 units before dinner, Disp-18 mL, R-8Normal atorvastatin (LIPITOR) 20 MG tablet Take 1 tablet by mouth daily, Disp-30 tablet, R-5Normal B-D ULTRAFINE III SHORT PEN 31G X 8 MM MISC Disp-200 each, R-8, Normal cyclobenzaprine (FLEXERIL) 10 MG tablet take 1 tablet by mouth every 8 hours if needed for muscle spasm, Disp-30 tablet, R-0Normal furosemide (LASIX) 40 MG tablet Take 1 tablet by mouth daily, Disp-30 tablet, R-0Normal RA VITAMIN D-3 2000 units CAPS take 1 capsule by mouth once daily, R-0, DAWHistorical Med lisinopril (PRINIVIL;ZESTRIL) 40 MG tablet take 1 tablet by mouth once daily, R-0Historical Med albuterol sulfate HFA (PROAIR HFA) 108 (90 Base) MCG/ACT inhaler Inhale 2 puffs into the lungs every 6 hours as needed for Wheezing or Shortness of Breath, Disp-1 Inhaler, R-1Normal Insulin Syringe/Needle U-500 (BD INSULIN SYRINGE U-500) 31G X 6MM 0.5 ML MISC 1 each by Does not apply route 2 times daily (before meals), Disp-100 each, R-9Normal nitroGLYCERIN (NITROSTAT) 0.4 MG SL tablet up to max of 3 total doses. If no relief after 1 dose, call 911., Disp-25 tablet, R-3Normal aspirin 81 MG chewable tablet Take 1 tablet by mouth daily, Disp-30 tablet, R-3Normal Lancets 30G MISC 4 TIMES DAILY Starting Wed10/18/2017, Disp-200 each, R-8, Print Handicap Placard MISC Starting Wed07/20/2017, Disp-1 each, R-0, PrintDuration: 5 years, 2021 Allergies Allergen Reactions ? Cat Hair Extract Swelling Physical Exam ED Triage Vitals [04/04/20 1543] BP Temp Temp Source Pulse Resp SpO2 Height Weight (!) 191/89 96.8 ?F (36 ?C) Temporal 89 16 95 % -- (!) 307 lb (139.3 kg) Physical Exam GENERAL: The patient appears nourished and normally developed. Vital signs as documented. EYES: Head exam is unremarkable. No scleral icterus or orbital trauma noted. HEENT: Mucous membranes moist. Nares patent without copious rhinorrhea. No enlarged lymphadenopathy. LUNGS: Lungs are clear to auscultation, without any respiratory distress. CARDIAC: Rhythm is regular. No dysrythmias or murmurs. ABDOMEN: Nontender with no obvious masses, and no peritoneal signs. EXTREMITIES: Non edematous, with no obvious deformities. SKIN: Good color, with no significant rashes. No pallor. NEURO: No obvious neurological deficits, normal sensation and strength bilaterally. SCREENINGS Heart Score for chest pain patients History: Moderately Suspicious ECG: Normal Patient Age: > 45 and < 65 years *Risk factors for Atherosclerotic disease: Diabetes Mellitus, Cigarette smoking, Hypercholesterolemia, Positive family History, Coronary Artery Disease, Hypertension, Obesity Risk Factors: > 3 Risk factors or history of atherosclerotic disease* Troponin: < 1X normal limit Heart Score Total: 4 Diagnostics Labs: Results for orders placed or performed during the hospital encounter of 04/04/20 Basic Metabolic Panel Result Value Ref Range Sodium 133 (L) 135 - 145 mmol/L Potassium 4.0 3.5 - 5.1 mmol/L Chloride 94 (L) 98 - 107 mmol/L CO2 28 22 - 30 mmol/L Anion Gap 10 NA Glucose 355 (H) 70 - 100 mg/dL BUN 21 (H) 7 - 20 mg/dL CREATININE 0.90 0.52 - 1.25 mg/dL eGFR 84.7 >60 mL/min EGFR IF NonAfrican Central African 73.1 >60 mL/min Calcium 9.9 8.4 - 10.4 mg/dL Hemogram (CBC) w/Auto Diff Result Value Ref Range WBC 4.6 3.6 - 10.7 10*3/uL RBC 4.35 3.80 - 5.20 10*6/uL Hemoglobin 12.5 11.7 - 16.0 g/dL Hematocrit 38.2 35.0 - 47.0 % MCV 87.7 79.0 - 98.0 fL MCH 28.7 26.0 - 34.0 pg MCHC 32.8 32.0 - 36.0 % RDW 16.0 (H) 11.5 - 14.5 % Platelets 102 (L) 140 - 440 10*3/uL MPV 9.0 7.4 - 10.4 fL Granulocytes % 65.0 40.0 - 80.0 % Lymphocyte % 27.1 20.0 - 40.0 % Monocytes 7.8 2.0 - 10.0 % Eosinophils 0.0 (L) 1.0 - 6.0 % Basophils 0.1 0.0 - 2.0 % Absolute Neut # 3.0 1.8 - 7.0 10*3/uL Absolute Lymph # 1.2 1.0 - 4.3 10*3/uL Absolute [place] # 0.4 0.0 - 0.8 10*3/uL Absolute Eos # 0.0 0.0 - 0.5 10*3/uL Absolute Baso # 0.0 0.0 - 0.2 10*3/uL Troponin x1 Result Value Ref Range Troponin I <0.012 0.000 - 0.034 ng/mL Troponin Result Value Ref Range Troponin I <0.012 0.000 - 0.034 ng/mL Radiographs: Xr Chest Portable Result Date: 04/04/2020 Patient Name: MELANIE RESTREPO ---Diagnostic Radiology--- Exam Date/Time 04/04/2020 16:51:47 EDT Exam CR Chest Portable Ordering Physician [id number] BRUNA REINOOS Accession Number [id number] CPT4 Codes 67119 () Reason For Exam Chest pain Report CHEST: CLINICAL INDICATION: Chest pain TECHNIQUE: AP portable chest COMPARISON: 11/22/2018 FINDINGS: The cardiomediastinal silhouette appears unchanged from the prior exam. The lungs are clear. There is no sizable pleural effusion. The osseous structures are unremarkable. IMPRESSION: No acute process. Report Dictated on --- Final --- Dictating Physician: MD GONZALEZ NICHOLAS Signed Date and Time: 04/04/2020 4:44 pm Signed by: MD GONZALEZ NICHOLAS Transcribed Date and Time: 04/04/2020 4:51 Procedures/EKG: EKG Per attending note if performed ED Course and MDM In brief, Melanie Restrepo is a 54 y.o. female who presented to the emergency department with chest pain. Patient is hypertensive, hx of hypertension. Vital signs otherwise normal. I wore proper PPE during this entire encounter including surgical mask, N95 mask, goggles and gloves. Screening labs and imaging were obtained. Patient was given aspirin and nitroglycerin. BMP, complete blood count are benign. Troponin is normal. EKG per attending note. CXR showed no acute cardiopulmonary process. The patient and I indication shared decision making, and patient did not want to stay for further cardio workup and evaluation, patient agreed to stay for a delta troponin, and will follow-up with her primary care provider in the coming days. Repeat troponin is normal. Patient states that her pain has gone away after the gastrointestinal cocktail. Given that there may be a gastroesophageal reflux disease component we will prescribe pepcid. HEART Score =4 and 2 negative troponin ? No hospitalization indicated I have discussed with the patient my clinical impression and the result of the HEART Score to screen for MACE, as well as the risks of further testing and hospitalization. The HEART Score shows that the risk for MACE is less than 2%. Although the risk of MACE has not been eliminated, the risks of further testing or hospitalization for MACE likely exceed the benefit, and the patient declines further emergent evaluation or hospitalization for MACE. The patient has been evaluated and the history and physical exam suggest a benign etiology. I see nothing to suggest acute coronary syndrome, myocardial infarction, pulmonary embolism, thoracic aortic dissection, significant pericarditis, pneumonia, pneumothorax, or acute abdomen. I feel the patient can be safely discharged to home with outpatient follow up. Instructions have been given for the patient to return to the Emergency Department for any worsening of the symptoms, including but not limited to increased pain, shortness of breath, abdominal pain or weakness. Melanie Restrepo and myself have engaged in Shared Decision Making to ensure adequate and appropriate information was provided to Melanie Restrepo to assist them in choosing a course of treatment based on their own preferences and concerns. ED Medication Orders (From admission, onward) Start Ordered Status Ordering Provider 04/04/20 1721 04/04/20 1720 aluminum & magnesium hydroxide-simethicone (MAALOX) 30 mL, lidocaine viscous hcl (XYLOCAINE) 5 mL (GI COCKTAIL) ONCE Last SEP action: Given - by JOSE DANIEL LYONS on 04/04/20 at 1755 BRUNA MAYA 04/04/20 1628 04/04/20 1627 nitroglycerin (NITRO-BID) 2 % ointment 1 inch ONCE Last SEP action: Given - by ANDRA MCINTYRE on 04/04/20 at 1639 KHRIS BRIGHT 04/04/20 1601 04/04/20 1601 aspirin chewable tablet 243 mg ONCE Last MAR action: Given - by ANDRA MCINTYRE on 04/04/20 at 1638 BRUNA MAYA Final Impression 1. Chest pain, unspecified type DISPOSITION Disposition: Discharge to home Patient condition is good Comment: Please note this report has been produced using speech recognition software and may contain errors related to that system including errors in grammar, punctuation, and spelling, as well as words and phrases that may be inappropriate. If there are any questions or concerns please feel free to contact the dictating provider for clarification. HERMES Carvajal [employer] HERMES Carvajal 04/05/20 0102 [facility] ED Provider Note Emergency Department Encounter [facility] ED Patient: Melanie Restrepo : 1965 Date of Evaluation: 04/04/2020 ED Supervising Physician: Khris Bright MD I independently examined and evaluated Melanie Restrepo. I wore a surgical mask for the entirety of this patient encounter. In brief, Melanie Restrepo is a 54 y.o. female that presents to the emergency department with a complaint of chest pain. She describes having chest pressure radiating into her back intermittently since yesterday. She has had this similar pain in the past. She states her last heart catheterization 2 years ago did not show significant heart disease. With the pain she feel short winded so she sits down and rests and the pain eventually goes away. Denies fevers. Denies trauma or injury. Denies abdominal pain nausea vomiting. Focused exam: She is awake and alert. She is afebrile. She is nontoxic. Lungs clear to auscultation. Heart regular rate and rhythm. Abdomen soft nondistended without focal tenderness. No calf tenderness. Negative Homans sign. Electrocardiogram: Normal sinus rhythm. Rate of 92. Normal axis. Left anterior fascicular block. No acute appearing ST segment changes. No significant change compared to previous of 10/28/2018. Today's electrocardiogram read by this examiner Lab studies are obtained. Glucose of 355. No renal insufficiency. Anion gap is normal. Troponin is normal. Lab studies reviewed by this examiner Brief ED course/MDM: Patient presented with chest pain. She does have history of negative cardiac cath 2 years ago. We did explain to patient she would benefit from cardiac monitoring and consideration for stress testing. She will like to follow-up as an outpatient. She agrees with plans for a second troponin here in the emergency department. This is normal we will discharge patient home and follow-up as an outpatient. Melanielane Restrepo and myself have engaged in Shared Decision Making to ensure adequate and appropriate information was provided to Melanie Restrepo to assist them in choosing a course of treatment based on their own preferences and concerns. All diagnostic, treatment, and disposition decisions were made by myself in conjunction with the [facility]. For all further details of the patient's emergency department visit, please see their documentation. (Please note that portions of this note may have been completed with a voice recognition program. Efforts were made to edit the dictations but occasionally words are mis-transcribed.) Khris Bright MD [employer] Khris Bright MD 04/04/20 1845 Normal [facility] Hemogram (CBC) w/Auto Diffon 04-04-2020 Absolute Baso # 0.0 10*3/uL 0 - 0.2 10*3/uL [place] Absolute Neut # 3.0 10*3/uL 1.8 - 7 10*3/uL [place] Basophils/100 WBC (Bld) 0.1 % 0 - 2 % [place] Eosinophils (Bld) [#/Vol] 0.0 10*3/uL 0 - 0.5 10*3/uL [place] Eosinophils/100 WBC (Bld) 0.0 % Low 1 - 6 % [place] Erythrocyte distribution width (RBC) [Ratio] 16.0 % High 11.5 - 14.5 % [place] Granulocytes/100 WBC (Bld) 65.0 % 40 - 80 % [place] Hematocrit (Bld) [Volume fraction] 38.2 % 35 - 47 % [place] Hemoglobin (Bld) [Mass/Vol] 12.5 g/dL 11.7 - 16 g/dL [place] Interpretation and review of laboratory results Abnormal [place] Lymphocytes (Bld) [#/Vol] 1.2 10*3/uL 1 - 4.3 10*3/uL [place] Lymphocytes/100 WBC (Bld) 27.1 % 20 - 40 % [place] MCH (RBC) [Entitic mass] 28.7 pg 26 - 34 pg [place] MCHC (RBC) [Mass/Vol] 32.8 % 32 - 36 % [place] MCV (RBC) [Entitic vol] 87.7 fL 79 - 98 fL [place] Monocytes (Bld) [#/Vol] 0.4 10*3/uL 0 - 0.8 10*3/uL [place] Monocytes/100 WBC (Bld) 7.8 % 2 - 10 % [place] Platelet mean volume (Bld) [Entitic vol] 9.0 fL 7.4 - 10.4 fL [place] Platelets (Bld) [#/Vol] 102 10*3/uL Low 140 - 440 10*3/uL [place] RBC (Bld) [#/Vol] 4.35 10*6/uL 3.8 - 5.2 10*6/uL [place] WBC (Bld) [#/Vol] 4.6 10*3/uL 3.6 - 10.7 10*3/uL [place] Test Performed by [facility], [address] [place] [address] [place] Hemogram w/ Autodiffon 04-04 Abs Baso Cnt 0.0 10*3/uL Normal 0.0-0.2 [facility] Comment on above: Performed By: #### H EMDF, BMP3, TROPN #### [facility] [address] [place] [address] Abs Neutrophile Cnt 3.0 10*3/uL Normal 1.8-7.0 [facility] Comment on above: Performed By: #### H EMDF, BMP3, TROPN #### [facility] [address] [place] [address] Basophils/100 WBC (Bld) 0.1 % Normal 0.0-2.0 [facility] Comment on above: Performed By: #### H EMDF, BMP3, TROPN #### [facility] [address] [place] [address] Eosinophils (Bld) [#/Vol] 0.0 10*3/uL Normal 0.0-0.5 [facility] Comment on above: Performed By: #### H EMDF, BMP3, TROPN #### [facility] [address] [place] [address] Eosinophils/100 WBC (Bld) 0.0 % Low 1.0-6.0 [facility] Comment on above: Performed By: #### H EMDF, BMP3, TROPN #### [facility] [address] [place] [address] Erythrocyte distribution width (RBC) [Ratio] 16.0 % High 11.5-14.5 [facility] Comment on above: Performed By: #### H EMDF, BMP3, TROPN #### [facility] [address] [place] [address] Granulocytes/100 WBC (Bld) 65.0 % Normal 40.0-80.0 [facility] Comment on above: Performed By: #### H EMDF, BMP3, TROPN #### [facility] [address] [place] [address] Hematocrit (Bld) [Volume fraction] 38.2 % Normal 35.0-47.0 [facility] Comment on above: Performed By: #### H EMDF, BMP3, TROPN #### [facility] [address] [place] [address] Hemoglobin (Bld) [Mass/Vol] 12.5 g/dL Normal 11.7-16.0 [facility] Comment on above: Performed By: #### H EMDF, BMP3, TROPN #### [facility] [address] [place] [address] Lymphocytes (Bld) [#/Vol] 1.2 10*3/uL Normal 1.0-4.3 [facility] Comment on above: Performed By: #### H EMDF, BMP3, TROPN #### [facility] [address] [place] [address] Lymphocytes/100 WBC (Bld) 27.1 % Normal 20.0-40.0 [facility] Comment on above: Performed By: #### H EMDF, BMP3, TROPN #### [facility] [address] [place] [address] MCH (RBC) [Entitic mass] 28.7 pg Normal 26.0-34.0 [facility] Comment on above: Performed By: #### H EMDF, BMP3, TROPN #### [facility] [address] [place] [address] MCHC (RBC) [Mass/Vol] 32.8 % Normal 32.0-36.0 [facility] Comment on above: Performed By: #### H EMDF, BMP3, TROPN #### [facility] [address] [place] [address] MCV (RBC) [Entitic vol] 87.7 fL Normal 79.0-98.0 [facility] Comment on above: Performed By: #### H EMDF, BMP3, TROPN #### [facility] [address] [place] [address] Monocytes (Bld) [#/Vol] 0.4 10*3/uL Normal 0.0-0.8 [facility] Comment on above: Performed By: #### H EMDF, BMP3, TROPN #### [facility] [address] [place] [address] Monocytes/100 WBC (Bld) 7.8 % Normal 2.0-10.0 [facility] Comment on above: Performed By: #### H EMDF, BMP3, TROPN #### [facility] [address] [place] [address] Platelet mean volume (Bld) [Entitic vol] 9.0 fL Normal 7.4-10.4 [facility] Comment on above: Performed By: #### H EMDF, BMP3, TROPN #### [facility] [address] [place] [address] Platelets (Bld) [#/Vol] 102 10*3/uL Low 140-440 [facility] Comment on above: Performed By: #### H EMDF, BMP3, TROPN #### [facility] [address] [place] [address] RBC (Bld) [#/Vol] 4.35 10*6/uL Normal 3.80-5.20 [facility] Comment on above: Performed By: #### H EMDF, BMP3, TROPN #### [facility] [address] [place] [address] WBC (Bld) [#/Vol] 4.6 10*3/uL Normal 3.6-10.7 [facility] Comment on above: Performed By: #### H EMDF, BMP3, TROPN #### [facility] [address] [place] [address] Troponinon 04-04-2020 Troponin I.cardiac [Mass/Vol] ng/mL 0 - 0.034 ng/mL [place], [place] Comment on above: . Test Performed by [facility], [address] [place], [place] [id number] [place] [address] Troponin Ion 04-04-2020 Troponin I.cardiac [Mass/Vol] ng/mL Normal 0.000-0.034 [facility] Comment on above: Result Comment: . Performed By: #### T ROPN ####[facility] [place] [address] Troponin I.cardiac [Mass/Vol] ng/mL Normal 0.000-0.034 [facility] Comment on above: Result Comment: . Performed By: #### H EMDF, BMP3, TROPN #### [facility] [address] [place] [address] Troponin x1on 04-04-2020 Troponin I.cardiac [Mass/Vol] ng/mL 0 - 0.034 ng/mL [place], [place] Comment on above: . Test Performed by [facility], [address] XR CHEST PORTABLEon 04-04-20 20 Patient Name: MELANIE FREY ---Diagnostic Radiology--- Exam Date/Time 04/04/2020 16:51:47 EDT Exam CR Chest Portable Ordering Physician [id number] DUENAS Accession Number [id number] CPT4 Codes 10980 () Reason For Exam Chest pain Report CHEST: CLINICAL INDICATION: Chest pain TECHNIQUE: AP portable chest COMPARISON: 11/22/2018 FINDINGS: The cardiomediastinal silhouette appears unchanged from the prior exam. The lungs are clear. There is no sizable pleural effusion. The osseous structures are unremarkable. IMPRESSION: No acute process. Report Dictated on --- Final --- Dictating Physician: MD GONZALEZ NICHOLAS Signed Date and Time: 04/04/2020 4:44 pm Signed by: MD GONZALEZ NICHOLAS Transcribed Date and Time: 04/04/2020 4:51 [facility] Incoming Radiology Results From [facility] - 04/04/2020 4:52 PM EDT Patient Name: MELANIE RESTREPO ---Diagnostic Radiology--- Exam Date/Time 04/04/2020 16:51:47 EDT Exam CR Chest Portable Ordering Physician [id number] DUENAS Accession Number [id number] CPT4 Codes 99145 () Reason For Exam Chest pain Report CHEST: CLINICAL INDICATION: Chest pain TECHNIQUE: AP portable chest COMPARISON: 11/22/2018 FINDINGS: The cardiomediastinal silhouette appears unchanged from the prior exam. The lungs are clear. There is no sizable pleural effusion. The osseous structures are unremarkable. IMPRESSION: No acute process. Report Dictated on --- Final --- Dictating Physician: MD GONZALEZ NICHOLAS Signed Date and Time: 04/04/2020 4:44 pm Signed by: MD GONZALEZ NICHOLAS Transcribed Date and Time: 04/04/2020 4:51 [facility], [facility] JOVANNY DIGITAL SCREEN BILA TERALon 02-07-2020 Patient Name: MELANIE FREY ---Mammography--- Exam Date/Time 02/07/2020 08:18:15 EDT Exam MG Breast Tomosynthesis BI Scr Ordering Physician MD LILIAM, SEE KOWALSKI Accession Number [id number] CPT4 Codes 83457 (MG Breast Tomosynthesis Scr Bl), 58045 (MG MAMMO 2D SCREENING) Reason For Exam screening Report TIME SINCE LAST MAMMOGRAM: Last mammogram was performed 1 year and 10 months ago. REASON FOR EXAM: screening, asymptomatic. PROCEDURE: MG BREAST TOMOSYNTHESIS BL SCR: FEBRUARY 07, 2020 - 2D/3D Procedure 3D Bilateral CC and MLO view(s) were taken. 2D Bilateral CC and MLO view(s) were taken. Prior study comparison: April 20, 2018, bilateral MG breast tomosynthesis bl scr performed at [facility]. April 19, 2017, bilateral MG breast tomosynthesis bl performed at [facility]. February 24, 2016, bilateral screening mammogram performed at [facility]. TISSUE DENSITY: BIRADS B - There are scattered fibroglandular densities. . FINDINGS: No suspicious masses, architectural distortions or suspiciously clustered microcalcifications are identified. There is no evidence of skin thickening or nipple retraction. There are no significant changes when compared with prior studies. Markings on images: BB's = Nipples; skin lesions Open [place] = Palpable Line = Scar 2D digital mammography and tomosynthesis imaging were performed and reviewed with CAD. ASSESSMENT: Category 1 Negative RECOMMENDATION: Routine screening mammogram of both breasts in 1 year. . Report Dictated on Cancer Risk Assessment: This risk assessment is based on patient provided information collected in a risk survey taken at the time of this examination. Lifetime breast cancer risk: 21.53% - If greater than or equal to 20%, consider annual mammogram and annual screening Breast MRI or follow up in high risk clinic. Is the patient at elevated risk based on the HBOC criteria? Yes (Hereditary Breast and Ovarian Cancer) - If yes, consider genetic counseling and testing with high risk follow up. HNPCC mutation risk (Dillon Syndrome): 18.9% - if greater than or equal to 5%, consider genetic counseling, testing and screening colonoscopy. --- Final --- Signed Date and Time: 02/07/2020 10:07 am Signed by: MD GALA, [facility] Incoming Radiology Results From [facility] - 02/07/2020 10:37 AM EDT Patient Name: MELANIE RESTREPO ---Mammography--- Exam Date/Time 02/07/2020 08:18:15 EDT Exam MG Breast Tomosynthesis BI Scr Ordering Physician MD LILIAM, SEE KOWALSKI Accession Number [id number] CPT4 Codes 76168 (MG Breast Tomosynthesis Scr Bl), 53390 (MG MAMMO 2D SCREENING) Reason For Exam screening Report TIME SINCE LAST MAMMOGRAM: Last mammogram was performed 1 year and 10 months ago. REASON FOR EXAM: screening, asymptomatic. PROCEDURE: MG BREAST TOMOSYNTHESIS BL SCR: FEBRUARY 07, 2020 - 2D/3D Procedure 3D Bilateral CC and MLO view(s) were taken. 2D Bilateral CC and MLO view(s) were taken. Prior study comparison: April 20, 2018, bilateral MG breast tomosynthesis bl scr performed at [facility]. April 19, 2017, bilateral MG breast tomosynthesis bl performed at [facility]. February 24, 2016, bilateral screening mammogram performed at [facility]. TISSUE DENSITY: BIRADS B - There are scattered fibroglandular densities. . FINDINGS: No suspicious masses, architectural distortions or suspiciously clustered microcalcifications are identified. There is no evidence of skin thickening or nipple retraction. There are no significant changes when compared with prior studies. Markings on images: BB's = Nipples; skin lesions [place] = Palpable Line = Scar 2D digital mammography and tomosynthesis imaging were performed and reviewed with CAD. ASSESSMENT: Category 1 Negative RECOMMENDATION: Routine screening mammogram of both breasts in 1 year. . Report Dictated on Cancer Risk Assessment: This risk assessment is based on patient provided information collected in a risk survey taken at the time of this examination. Lifetime breast cancer risk: 21.53% - If greater than or equal to 20%, consider annual mammogram and annual screening Breast MRI or follow up in high risk clinic. Is the patient at elevated risk based on the HBOC criteria? Yes (Hereditary Breast and Ovarian Cancer) - If yes, consider genetic counseling and testing with high risk follow up. HNPCC mutation risk (Dillon Syndrome): 18.9% - if greater than or equal to 5%, consider genetic counseling, testing and screening colonoscopy. --- Final --- Signed Date and Time: 02/07/2020 10:07 am Signed by: MD GALA, TATUM [facility], [place] MG Breast Tomosynthesis Scr Blon 02-07-2020 MG Breast Tomosynthesis Scr Bl Patient Name: MELANIE RESTREPO Mammography Exam Date/Time 02/07/2020 08:18:15 EDT Exam MG Breast Tomosynthesis BI Scr Ordering Physician MD LILIAM, SEE KOWALSKI Accession Number [id number] CPT4 Codes 32377 (MG Breast Tomosynthesis Scr Bl), 30304 (MG MAMMO 2D SCREENING) Reason For Exam screening Report TIME SINCE LAST MAMMOGRAM: Last mammogram was performed 1 year and 10 months ago. REASON FOR EXAM: screening, asymptomatic. PROCEDURE: MG BREAST TOMOSYNTHESIS BL SCR: FEBRUARY 07, 2020 - 2D/3D Procedure 3D Bilateral CC and MLO view(s) were taken. 2D Bilateral CC and MLO view(s) were taken. Prior study comparison: April 20, 2018, bilateral MG breast tomosynthesis bl scr performed at [facility]. April 19, 2017, bilateral MG breast tomosynthesis bl performed at [facility]. February 24, 2016, bilateral screening mammogram performed at [facility]. TISSUE DENSITY: BIRADS B - There are scattered fibroglandular densities. . FINDINGS: No suspicious masses, architectural distortions or suspiciously clustered microcalcifications are identified. There is no evidence of skin thickening or nipple retraction. There are no significant changes when compared with prior studies. Markings on images: BB's = Nipples; skin lesions [place] = Palpable Line = Scar 2D digital mammography and tomosynthesis imaging were performed and reviewed with CAD. ASSESSMENT: Category 1 Negative RECOMMENDATION: Routine screening mammogram of both breasts in 1 year. . Report Dictated on Cancer Risk Assessment: This risk assessment is based on patient provided information collected in a risk survey taken at the time of this examination. Lifetime breast cancer risk: 21.53% - If greater than or equal to 20%, consider annual mammogram and annual screening Breast MRI or follow up in high risk clinic. Is the patient at elevated risk based on the HBOC criteria? Yes (Hereditary Breast and Ovarian Cancer) - If yes, consider genetic counseling and testing with high risk follow up. HNPCC mutation risk (Dillon Syndrome): 18.9% - if greater than or equal to 5%, consider genetic counseling, testing and screening colonoscopy. Final Signed Date and Time: 02/07/2020 10:07 am Signed by: MD GALA, TATUM [facility] Normal [facility] Uric Acidon 01-23-2020 Urate [Mass/Vol] 4.9 mg/dL Normal 2.5-8.5 [facility] Comment on above: Performed By: #### U RIC3 ####[facility] [place] [address] Urate [Mass/Vol] 4.9 mg/dL 2.5 - 8.5 mg/dL [facility], [place] Test Performed by [facility], [address] , [address], [place] Creatinine, Random Urineon 0 10-12-2019 Creatinine (U) [Mass/Vol] 112.9 mg/dL No Range [facility], [place] Test Performed by [facility], [address] , [address], [place] Creatinine, Ur Randomon Creatinine, Ur Random 112.9 mg/dL Normal No Range [facility] Comment on above: Performed By: #### T PUR, RENL3, CRTUR #### [facility] [address] [place] [address] Protein, Ur Randomon 020 Protein [Mass/Vol] 292 mg/dL High No Range [facility] Comment on above: Performed By: #### T PUR, RENL3, CRTUR #### [facility] [address] [place] [address] Protein, urine, randomon Interpretation and review of laboratory results Abnormal [place], [place] Protein (U) [Mass/Vol] 292 mg/dL High No Range [facility], [place] Test Performed by [facility], [address] , [address], [place] Renal Functionon 10-12-2019 Anion gap [Moles/Vol] 9 Normal [facility] Comment on above: Performed By: #### T PUR, RENL3, CRTUR #### [facility] [address] [place] [address] Calcium [Mass/Vol] 9.6 mg/dL Normal 8.4-10.4 [facility] Comment on above: Performed By: #### T PUR, RENL3, CRTUR #### [facility] [address] [place] [address] CO2 [Moles/Vol] 27 mmol/L Normal 22-30 [facility] Comment on above: Performed By: #### T PUR, RENL3, CRTUR #### [facility] [address] [place] [address] Creatinine [Mass/Vol] 1.05 mg/dL Normal 0.52-1.25 [facility] Comment on above: Performed By: #### T PUR, RENL3, CRTUR #### [facility] [address] [place] [address] GFR/1.73 sq M predicted among blacks MDRD (S/P/Bld) [Vol rate/Area] mL/min/{1.73_m2} Normal >60 [facility] Comment on above: Performed By: #### T PUR, RENL3, CRTUR #### [facility] [address] [place] [address] GFR/1.73 sq M predicted among non-blacks MDRD (S/P/Bld) [Vol rate/Area] 55.0 mL/min/{1.73_m2} Normal >60 [facility] Comment on above: Result Comment: Sour ce- MDRD equation with creatinine calibration to IDMS(NKDEP) eGFR not recommended for drug dose adjustment Performed By: #### T PUR, RENL3, CRTUR #### [facility] [address] [place] [address] Glucose [Mass/Vol] 252 mg/dL High 70-100 [facility] Comment on above: Performed By: #### T PUR, RENL3, CRTUR #### [facility] [address] [place] [address] Phosphate [Mass/Vol] 3.8 mg/dL Normal 2.5-4.5 [facility] Comment on above: Performed By: #### T PUR, RENL3, CRTUR #### [facility] [address] [place] [address] Urea nitrogen [Mass/Vol] 18 mg/dL Normal 7-20 [facility] Comment on above: Performed By: #### T PUR, RENL3, CRTUR #### [facility] [address] [place] [address] Albumin [Mass/Vol] 3.7 g/dL Normal 3.5-5.0 [facility] Comment on above: Performed By: #### T PUR, RENL3, CRTUR #### [facility] [address] [place] [address] Chloride [Moles/Vol] 99 mmol/L Normal 98-107 [facility] Comment on above: Performed By: #### T PUR, RENL3, CRTUR #### [facility] [address] [place] [address] Potassium [Moles/Vol] 4.0 mmol/L Normal 3.5-5.1 [facility] Comment on above: Performed By: #### T PUR, RENL3, CRTUR #### [facility] [address] [place] [address] Sodium [Moles/Vol] 136 mmol/L Normal 135-145 [facility] Comment on above: Performed By: #### T PUR, RENL3, CRTUR #### [facility] [address] [place] [address] Renal Function Panelon 10-11 Albumin [Mass/Vol] 3.7 g/dL 3.5 - 5 g/dL [place], [place] Comment on above: Test Performed by [facility], [address] , [place], [place] [address] Anion gap [Moles/Vol] 9 mmol/L [place] Comment on above: Test Performed by [facility], [address] , [place], [place] [address] Calcium [Mass/Vol] 9.6 mg/dL 8.4 - 10. 4 mg/dL [place], [place] Comment on above: Test Performed by [facility], [address] , [place], [place] [address] Chloride [Moles/Vol] 99 mmol/L 98 - 10 7 mmol/L [place] Comment on above: Test Performed by [facility], [address] , [place] [address] CO2 [Moles/Vol] 27 mmol/L 22 - 30 mmol/L [place] Comment on above: Test Performed by [facility], [address] , [place] [address] Creatinine [Mass/Vol] 1.05 mg/dL 0.52 - 1.25 mg/dL [place], [place] Comment on above: Test Performed by [facility], [address] , [place] [address] EGFR IF NonAfrican Central African 55.0 mL/min >60 [place] Comment on above: Test Performed by [facility], [address] , [place] [address] Source- MDRD equation with creatinine calibration to IDMS(NKDEP) eGFR not recommended for drug dose adjustment GFR/1.73 sq M predicted among blacks MDRD (S/P/Bld) [Vol rate/Area] mL/min/{1.73_m2} >60 mL/min [place], [place] Comment on above: Test Performed by [facility], [address] , [place] [address] Glucose [Mass/Vol] 252 mg/dL High 70 - 100 mg/dL [place], [place] Comment on above: Test Performed by [facility], [address] , [place] [address] Interpretation and review of laboratory results Abnormal [place], [place] Phosphate [Mass/Vol] 3.8 mg/dL 2.5 - 4 .5 mg/dL [place], [place] Comment on above: Test Performed by [facility], [address] , [place] [address] Potassium [Moles/Vol] 4.0 mmol/L 3.5 - 5.1 mmol/L [place] Comment on above: Test Performed by [facility], [address] , [place] [address] Sodium [Moles/Vol] 136 mmol/L 135 - 145 mmol/L [place], [place] Urea nitrogen [Mass/Vol] 18 mg/dL 7 - 20 mg/dL [facility] Comment on above: Test Performed by [facility], [address] , [place], [place] [address] Test Performed by [facility], [address] , [place], [place] [id number] [place], [place] [address]AL[place] CNPNon 09-24-2019 CNPN Telephone ([place] PHA) -- MELANIE RESTREPO ([id number]) 1965 F Date Time Provider Department 09/24/19 DANI (PHARMACIST)RODNEY [place] GISSELLE During your visit today, we recorded the following information about you: SHER CARDENAS 09/24/2019 3:40 PM Signed Negative COVID-19 Testing COVID-19 Test Results Contacted patient on behalf of the [facility] Emergency Department to communicate updated results from a recent visit. Verified patient with two identifiers and updated on negative COVID-19 test results. Patient instructed that quarantine can be discontinued and that patient should contact employer to discuss return to work. Patient advised that negative testing results will be available for viewing in [employer]. If unable to access or enroll in [employer], patient instructed that results may be obtained by contacting a primary care physician or contacting the [facility] at and requesting to speak with Medical Records. Patient instructed to seek emergency medical care and call 911 if any difficulty breathing, chest pain, or if any other significant health concerns. Patient instructed to contact the primary care physician or schedule a [facility] Express Care Online or return to the Emergency Department if symptoms aren?t improving. Precautions to Prevent Illness Reviewed the following information and precautions with the patient: 1. There is currently no vaccine to prevent coronavirus disease 2019 ? the best way to prevent illness is to avoid being exposed to this virus 2. Clean your hands often: a. Wash hands with soap and water for at least 20 seconds especially after you have been in a public place or after blowing your nose, coughing, or sneezing b. If soap and water are not readily available, use alcohol-based hand ammunition assembly ii laborer that contains at least 60% alcohol; cover all surfaces of your hands and rub them together until they feel dry c. Avoid touching your eyes, nose, and mouth with unwashed hands 3. Cover your mouth/nose with a tissue when you cough or sneeze or use inside of your elbow 4. Clean and disinfect frequently touched surfaces daily. This includes tables, doorknobs, light switches, countertops, handles, desks, phones, keyboards, toilets, faucets, and sinks 5. Avoid contact with people who are sick Additional COVID-19 Resources Encouraged patient to contact the [facility] Hotline for additional COVID-19 questions (8-025-4MDUWGG or ) which is open daily to answer questions. SHER CARDENAS Allergies As of Date: 09/24/2019 Noted Allergy Reaction CATS 05/16/2013 7 - Swelling Date Reviewed: 09/23/2019 Reviewed by: Ashley Holden MD - Fully Assessed Reason for Visit: Results [95] Prescriptions as of 09/24/2019 Sig: ALBUTEROL SULFATE HFA 90 MCG/* Inhale 2 Puffs as instructed * METHYLPREDNISOLONE 4 MG TABLE* Take by mouth. As directed on* ARIPIPRAZOLE 5 MG TABLET BUSPIRONE 30 MG TABLET LANTUS SOLOSTAR U-100 INSULIN* HUMALOG KWIKPEN (U-100) INSUL* LABETALOL 200 MG TABLET NORTRIPTYLINE 10 MG CAPSULE CYCLOBENZAPRINE 10 MG TABLET Take 1 tablet by mouth every * PAROXETINE 40 MG TABLET Take 40 mg by mouth once lara* PEN NEEDLE, DIABETIC 31 GAUGE* Use 1 daily BLOOD SUGAR DIAGNOSTIC STRIPS CHECK BLOOD SUGARS 2 TIMES DA* ATORVASTATIN 20 MG TABLET Take 20 mg by mouth once lara* CLARITIN ORAL Take 1 tablet by mouth once d* LANCETS 2 times a day FENOFIBRATE 160 MG TABLET Take 160 mg by mouth once john* LISINOPRIL 20 MG TABLET Take 40 mg by mouth once lara* METFORMIN 1,000 MG TABLET Take 1,000 mg by mouth twice * Problem List As Of Date: 09/24/2019 (None) Encounter Status:Closed by DANI (PHARMACIST)RODNEY on 09/24/19 [facility] ALLIED HEALTHon 09-23-2019 ALLIED HEALTH HNO ID: [id number] Author: SANGEETA Bowers (Ct) Service: ? Author Type: Clinical Mill [employer]er Type: Allied Health Filed: 09/23/2019 2:58 PM Note Text: Radiology Service Progress Note PATIENT NAME: Melanie Restrepo DATE OF SERVICE: September 23, 2019 TIME: 2:57 PM PATIENT IDENTITY VERIFICATION COMPLETED USING TWO (2) IDENTIFIERS: Name and Date of confirmed by patient verbally and Name and Date of confirmed by identification band. PATIENT GENDER DATA: Female. status: : No status: NO. PATIENT RELEVANT IMPLANT DATA REVIEWED: Not Applicable RADIOLOGY DEPARTMENT: General X-ray: Exam(s) Completed: Chest X-Ray PERIPHERAL IV DATA: Not applicable SIGNED BY: SANGEETA Bowers September 23, 2019 2:57 PM [facility] CNOVon 09-23-2019 CNOV Office Visit (GAETANO ) -- KAYEJHONATANMELANIE ([id number]) 1965 F Date Time Provider Department 09/23/19 12:30 PM ANNE SPENCER PA-C During your visit today, we recorded the following information about you: Temperature Pulse Respiration Blood pressure 98.2 degrees 76/minute 17/minute 135/71 Weight Height 138.3 kg 1.651 m Anne Spencer PA-C, [place] 09/23/2019 1:33 PM Signed 09/23/2019 Patient presents with: Cough Sore Throat Triage: 54 yo female with DM II, COPD, and h/o inpatient pneumonia that is here for cough, dyspnea, sore throat, and body aches/chills x 2-3 days. She works in a [employer]. PAST MEDICAL HISTORY Diagnosis Date - Arthritis - DM type 2 (diabetes mellitus, type 2) ([facility]) - Dyslipidemia - HTN (hypertension) - Obesity OBJECTIVE: BP 135/71 (BP Site: Right Arm, BP Position: Sitting, BP Cuff Size: Large Adult) Pulse 76 Temp 36.8 ?C (98.2 ?F) Resp 17 Ht 165.1 cm (5' 5) Wt (!) 138.3 kg (304 lb 12.8 oz) SpO2 96% BMI 50.72 kg/m? . Vital signs reviewed by this provider. Rapid strep - negative ASSESSMENT/PLAN: Vital stable, but referred 1. Cough - ICD9: 786.2, ICD10: R05 (primary diagnosis) 2. Chills - ICD9: 780.64, ICD10: R68.83 3. Dyspnea, unspecified type - ICD9: 786.09, ICD10: R06.00 4. Type 2 diabetes mellitus without complication, with long-term current use of insulin ([facility]) - ICD9: 250.00, V58.67, ICD10: E11.9, Z79.4 5. Chronic obstructive pulmonary disease, unspecified COPD type ([facility]) - ICD9: 496, ICD10: J44.9 6. History of pneumonia BP 135/71 (BP Site: Right Arm, BP Position: Sitting, BP Cuff Size: Large Adult) Pulse 76 Temp 36.8 ?C (98.2 ?F) Resp 17 Ht 165.1 cm (5' 5) Wt (!) 138.3 kg (304 lb 12.8 oz) SpO2 96% BMI 50.72 kg/m? Referred to the [facility] ER for further eval Needs further work up that cannot be provided in [facility] (CXR, nebulizer, etc). Works in a [employer]- Needs swabbed for ALL viral Needs r/o pneumonia Follow up as needed. Barriers to learning: none. The patient verbalizes understanding and is in agreement with plan of care. [facility] ER called and report given. Patient wearing mask and driving self. CARMEN Bay PA-C, HERMES 09/23/2019 12:56 PM Signed ASSESSMENT/PLAN: 1. Cough - 2. Chills - 3. Dyspnea, unspecified type - 4. Type 2 diabetes mellitus without complication, with long-term current use of insulin 5. Chronic obstructive pulmonary disease, unspecified COPD type ([facility]) 6. History of pneumonia Referred to the [facility] Hospital ER for further eval Needs further work up that cannot be provided in Exp Care Work in a [employer]- May need swabbed for viral Needs r/o pneumonia Follow up as needed. Barriers to learning: none. The patient verbalizes understanding and is in agreement with plan of care. Anne Spencer PA-C Referring Provider: SELF [200] Allergies As of Date: 09/23/2019 Noted Allergy Reaction CATS 05/16/2013 7 - Swelling Date Reviewed: 09/23/2019 Reviewed by: Ashley Holden MD - Fully Assessed Reason for Visit: Cough [28] Sore Throat [200] Primary Visit Diagnosis:Cough [R05] Other Visit Diagnoses:Chills [R68.83] Dyspnea, unspecified type [R06.00] Type 2 diabetes mellitus without complication, with long-term current use of insulin (HCC) [E11.9, Z79.4] Chronic obstructive pulmonary disease, unspecified COPD type (HCC) [J44.9] Order(s):RAPID STREP TEST B/O [6021069] Order #: [id number] Prescriptions as of 09/23/2019 Sig: HUMALOG KWIKPEN (U-100) INSUL* LABETALOL 200 MG TABLET CYCLOBENZAPRINE 10 MG TABLET Take 1 tablet by mouth every * X PROAIR HFA 90 MCG/ACTUATION A* PAROXETINE 40 MG TABLET Take 40 mg by mouth once lara* PEN NEEDLE, DIABETIC 31 GAUGE* Use 1 daily BLOOD SUGAR DIAGNOSTIC STRIPS CHECK BLOOD SUGARS 2 TIMES DA* ATORVASTATIN 20 MG TABLET Take 20 mg by mouth once lara* CLARITIN ORAL Take 1 tablet by mouth once d* LANCETS 2 times a day FENOFIBRATE 160 MG TABLET Take 160 mg by mouth once john* LISINOPRIL 20 MG TABLET Take 40 mg by mouth once lara* METFORMIN 1,000 MG TABLET Take 1,000 mg by mouth twice * ARIPIPRAZOLE 5 MG TABLET BUSPIRONE 30 MG TABLET LANTUS SOLOSTAR U-100 INSULIN* NORTRIPTYLINE 10 MG CAPSULE Problem List As Of Date: 09/23/2019 (None) Other instructions from your clinician: ASSESSMENT/PLAN: 1. Cough - 2. Chills - 3. Dyspnea, unspecified type - 4. Type 2 diabetes mellitus without complication, with long-term current use of insulin 5. Chronic obstructive pulmonary disease, unspecified COPD type (HCC) 6. History of pneumonia Referred to the [facility] ER for further eval Needs further work up that cannot be provided in Exp Care Work in a [employer]- May need swabbed for viral Needs r/o pneumonia Follow up as needed. Barriers to learning: none. The patient verbalizes understanding and is in agreement with plan of care. Anne Spencer PA-C Encounter Status:Closed by ANNE SPENCER on 09/23/19 Normal [facility] Coronavirus 2019on 0 COVID 19 Result CUTTER ALUMINUM SHEET SARS CoV 2 (Agent of COVID 19) Not Detected by PCR. Normal SARS CoV 2 (Agent of COVID 19) Not Detected by PCR. [facility] Comment on above: Result Comment: This test was developed and its performance characteristics determined by [facility]'s [facility] [place]. This test has been authorized by FDA under an Emergency Use Authorization (EUA). This test has been validated in accordance with the FDA's Guidance Document Policy for Diagnostics Testing in Laboratories Certified to Perform High Complexity Testing under CLIA prior to Emergency use Authorization for Coronavirus Disease 2019 during the Public Health Emergency issued on September 09, 2019. Performed By: #### C OVID #### [facility] [address] [place] [address] [place] [phone] COVID 19 Result OP Refer to result for COVID 19 when completed. Normal [facility] Comment on above: Performed By: #### C OVID #### [facility] [address] [place], [place] [address] [facility] [address] [place] [address] COVID 19 Source CUTTER ALUMINUM SHEET Nasopharyngeal Swab Normal [facility] Comment on above: Performed By: #### C OVID #### [facility] [address] [place], [place] [address] [facility] [address] [place] [phone] COVID 19 Source OP Throat Swab [facility] Comment on above: Performed By: #### C OVID #### [facility] [address] [facility] [phone] [place] [address] [address] [place] [address] ED NOTEon 09-23-2019 ED NOTE HNO ID: [id number] Author: Casandra JonesRn) ANTOINE Guerrero Service: ? Author Type: Registered Nurse Type: ED Notes Filed: 09/23/2019 3:45 PM Note Text: Reviewed DC instructions with patient. No additional questions. Patient ambulated out on her own. [facility] ED NOTE HNO ID: [id number] Author: Wilma (Rn) ANTOINE Bingham Service: ? Author Type: Registered Nurse Type: ED Notes Filed: 09/23/2019 1:38 PM Note Text: Pt to ED c/o sore throat on Wednesday, now with cough, chills, SOB and BOND. Seen at [facility], sent for r/o pneumonia and may need viral swabs. [facility] ED PROV NOTEon 09-23-2019 ED PROV NOTE HNO ID: [id number] Author: Ashley Holden MD Service: ? Author Type: Physician Type: ED Provider Notes Filed: 09/23/2019 3:16 PM Note Text: ED Provider Note Patient Name: Melanie Restrepo SERVICE DATE: 09/23/19 History Patient presents with: Cough Fever Flu Like Symptoms Headache Shortness of Breath Sore Throat Patient with h/o HTN, DM, dyslipidemia, and Arthritis who presents with sore throat, cough, congestion, rhinorrhea, and wheezing that began Wednesday, 3 days ago. 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 She was seen at [facility] who sent her here for nebulizer and CXR. PAST MEDICAL HISTORY Diagnosis Date - Arthritis - DM type 2 (diabetes mellitus, type 2) (HCC) - Dyslipidemia - HTN (hypertension) - Obesity PAST SURGICAL HISTORY Procedure Laterality Date - CARPAL TUNNEL Left hand - CHOLECYSTECTOMY HX - COLONOSCOPY - EXCISION TONSIL LESIONS BILATERAL - PAST SURGICAL HISTORY OF ablation of uterus - TONSILLECTOMY HX FAMILY HISTORY Problem Relation Age of Onset - Thyroid Mother - Ischemic Heart Disease Father - Hypertension Father - Lipids Father - Hypertension Mother - Lipids Mother - Diabetes Mother - Diabetes Paternal Grandmother - Cancer Father prostate Social History Tobacco Use - Smoking status: Former Smoker Packs/day: 0.80 Types: Cigarettes Start date: 08/12/2013 - Smokeless tobacco: Never Used Substance and Sexual Activity - Alcohol use: No - Drug use: No - Sexual activity: Not on file ALLERGIES Allergen Reactions - Cats Swelling Review of Systems Constitutional: Positive for chills and fever. HENT: Positive for congestion, rhinorrhea and sore throat. Negative for sinus pressure, sinus pain and sneezing. Eyes: Negative for visual disturbance. Respiratory: Positive for cough, shortness of breath and wheezing. Cardiovascular: Negative for chest pain, palpitations and leg swelling. Gastrointestinal: Positive for nausea. Negative for abdominal pain, diarrhea and vomiting. Genitourinary: Negative for difficulty urinating, dysuria, flank pain and hematuria. Musculoskeletal: Negative for back pain, myalgias and neck stiffness. Skin: Negative for pallor. Neurological: Negative for dizziness, weakness, light-headedness and headaches. Psychiatric/Behavioral: Negative for confusion. All other systems reviewed and are negative. Physical Exam BP 154/120 Pulse 83 Temp (Src) 97.9 (Oral) Resp 18 SpO2 96% O2 Therapy: Room Air Physical Exam Vitals signs and nursing note reviewed. Constitutional: General: She is not in acute distress. Appearance: She is well-developed. HENT: Head: Normocephalic and atraumatic. Right Ear: External ear normal. Left Ear: External ear normal. Nose: Nose normal. Eyes: Conjunctiva/sclera: Conjunctivae normal. Pupils: Pupils are equal, round, and reactive to light. Neck: Musculoskeletal: Normal range of motion and neck supple. Cardiovascular: Rate and Rhythm: Normal rate and regular rhythm. Heart sounds: Normal heart sounds. No murmur. Pulmonary: Effort: Pulmonary effort is normal. No respiratory distress. Breath sounds: Normal breath sounds. No stridor. No wheezing or rales. Chest: Chest wall: No tenderness. Abdominal: General: Bowel sounds are normal. There is no distension. Palpations: Abdomen is soft. Tenderness: There is no abdominal tenderness. There is no rebound. Musculoskeletal: Normal range of motion. General: No tenderness. Lymphadenopathy: Cervical: No cervical adenopathy. Skin: General: Skin is warm and dry. Findings: No erythema or rash. Neurological: Mental Status: She is alert and oriented to person, place, and time. Deep Tendon Reflexes: Reflexes are normal and symmetric. Psychiatric: Behavior: Behavior normal. Thought Content: Thought content normal. Judgment: Judgment normal. Diagnostic Testing ED Labs Ordered and Reviewed - No data to display Results for orders placed or performed during the hospital encounter of 09/23/19 RAPID PCR ASSAY FOR FLU/RSV Result Value Ref Range Specimen Source. Nasopharyngeal Swab Influenza A PCR Negative for Influenza A by RT PCR Influenza B PCR Negative for Influenza B by RT PCR RSV PCR Negative for RSV by RT PCR 2019 CORONAVIRUS Result Value Ref Range COVID 19 Source CUTTER ALUMINUM SHEET Nasopharyngeal Swab COVID 19 Source OP Throat Swab COVID 19 Result OP Refer to result for COVID 19 when completed. XR CHEST 2V FRONTAL/LAT Final Result IMPRESSION: Stable chest. No acute cardiopulmonary process. [employer] Operator Helper: HUGO Transcribe Date/Time: Sep 23 2019 3:00P Dictated by : SUNITHA EVERETT MD This examination was interpreted and the report reviewed and electronically signed by: SUNITHA EVERETT MD on Sep 23 2019 3:01PM EST Procedures ED Course / Clinical Impression Clinical Impressions as of Sep 22 1513 Sore throat Cough Malaise Wheezing MDM / Disposition / Plan Nurses notes and old chart reviewed Patient here for URI symptoms, h/o ashtma, wheezing per out patient urgent care, decreased breath sounds in ED, non toxic appearing, respirations even and non labored Ddx; Asthma exacerbation, influenza, other viral illness, COVID, pneumonia Work up in ED reveals negative rapid flu swab, CXR nad, Covid swab is pending While in ED, she was given a duoneb for decreased breath sounds, Will d/c with Rx albuterol and medrol dose pack. Given instructions for self isolation until results are back. The patient was DISCHARGED: Counseled patient regarding lab results AND radiology results AND suspected diagnosis AND need for follow-up. Discharged home with verbal and written instructions. They were instructed to return as needed for persistent or worsening symptoms or any new concerns. Condition at time of disposition: stable SIGNATURE: MD Ashley Izquierdo MD 09/23/19 1516 Normal [facility] PROGRESSon 09-23-2019 PROGRESS HNO ID: [id number] Author: Anne Linder) HERMES Spencer Service: ? Author Type: Physician Manager Private Type: Progress Notes Filed: 09/23/2019 1:33 PM Note Text: 09/23/2019 Patient presents with: Cough Sore Throat Triage: 54 yo female with DM II, COPD, and h/o inpatient pneumonia that is here for cough, dyspnea, sore throat, and body aches/chills x 2-3 days. She works in a f[employer]. PAST MEDICAL HISTORY Diagnosis Date - Arthritis - DM type 2 (diabetes mellitus, type 2) ([facility]) - Dyslipidemia - HTN (hypertension) - Obesity OBJECTIVE: BP 135/71 (BP Site: Right Arm, BP Position: Sitting, BP Cuff Size: Large Adult) Pulse 76 Temp 36.8 ?C (98.2 ?F) Resp 17 Ht 165.1 cm (5' 5) Wt (!) 138.3 kg (304 lb 12.8 oz) SpO2 96% BMI 50.72 kg/m? . Vital signs reviewed by this provider. Rapid strep - negative ASSESSMENT/PLAN: Vital stable, but referred 1. Cough - ICD9: 786.2, ICD10: R05 (primary diagnosis) 2. Chills - ICD9: 780.64, ICD10: R68.83 3. Dyspnea, unspecified type - ICD9: 786.09, ICD10: R06.00 4. Type 2 diabetes mellitus without complication, with long-term current use of insulin ([facility]) - ICD9: 250.00, V58.67, ICD10: E11.9, Z79.4 5. Chronic obstructive pulmonary disease, unspecified COPD type ([facility]) - ICD9: 496, ICD10: J44.9 6. History of pneumonia BP 135/71 (BP Site: Right Arm, BP Position: Sitting, BP Cuff Size: Large Adult) Pulse 76 Temp 36.8 ?C (98.2 ?F) Resp 17 Ht 165.1 cm (5' 5) Wt (!) 138.3 kg (304 lb 12.8 oz) SpO2 96% BMI 50.72 kg/m? Referred to the [facility] ER for further eval Needs further work up that cannot be provided in Exp Care (CXR, nebulizer, etc). Works in a [employer]- Needs swabbed for ALL viral Needs r/o pneumonia Follow up as needed. Barriers to learning: none. The patient verbalizes understanding and is in agreement with plan of care. [facility] called and report given. Patient wearing mask and driving self. Anne Spencer PA-C Normal [facility] Rapid PCR FLU/RSVon 09-23-19 20 Influenza A PCR Negative [facility] Comment on above: Performed By: #### F LRSV #### [facility] [address] [place] [address] Influenza B PCR Negative [facility] Comment on above: Performed By: #### F LRSV #### [facility] [address] [place] [address] RSV PCR Negative [facility] Comment on above: Performed By: #### F LRSV #### [facility] [address] [place] [address] Specimen source Nom (Unsp spec) Nasopharyngeal Swab [facility] Comment on above: Performed By: #### F LRSV #### [facility] [address] [place] [address] XR CHEST 2V FRONTAL/LATon XR CHEST 2V FRONTAL/LAT * * *Final Report* * * DATE OF EXAM: Sep 23 2019 2:56PM MDX 5291 - XR CHEST 2V FRONTAL/LAT / PROCEDURE REASON: Cough, new onset * * * * Physician Interpretation * * * * EXAMINATION: CHEST RADIOGRAPH (2 VIEW FRONTAL and LATERAL) CLINICAL HISTORY: Cough, new onset MQ: [id number] EXAM DATE/TIME: 09/23/2019 2:56 PM COMPARISON: Comparison is made to prior chest dated 27 June 2015 RESULT: Lines, tubes, and devices: None. Lungs and pleura: Diffuse chronic interstitial lung changes with left upper lobe fibrotic scarring is stable. There is no focal consolidation or acute pleural process/fluid. There is no overt pulmonary edema. Cardiomediastinal silhouette: The cardiac, mediastinal and hilar shadows are unchanged and remain within normal limits. Other: The bony structures are intact IMPRESSION: Stable chest. No acute cardiopulmonary process. [employer] Operator Helper: PSCMaxim Transcribe Date/Time: Sep 23 2019 3:00P Dictated by : SUNITHA EVERETT MD This examination was interpreted and the report reviewed and electronically signed by: SUNITHA EVERETT MD on Sep 23 2019 3:01PM EST [id number] Normal [facility] Glucose,Bedsideon 06-06-2018 Glucose mass conc 301 mg/dL High 70-100 [facility] Comment on above: Result Comment: Test performed by glucose meter. Results may be 10%-15% lowerthan serum/plasma values. (CLIA ID [id number]) Performed By: #### B GLU ####[facility] [place] [address] Glucose mass conc 247 mg/dL High 70-100 [facility] Comment on above: Result Comment: Test performed by glucose meter. Results may be 10%-15% lowerthan serum/plasma values. (CLIA ID [id number]) Performed By: #### B GLU ####[facility] [place] Glucose mass conc 283 mg/dL High 70-100 [facility] Comment on above: Result Comment: Test performed by glucose meter. Results may be 10%-15% lowerthan serum/plasma values. (CLIA ID [id number]) Performed By: #### B GLU ####[facility] [place] [address] Basic Metabolic Panelon 05-13 Anion gap 3 molar conc 10 Normal [facility] Comment on above: Performed By: #### H GREGORIO BMP3M ####[facility] [place], [place] Calcium mass conc 9.1 mg/dL Normal 8.4-10.4 [facility] Comment on above: Performed By: #### H EMDArpita BMP3M ####[facility] [place] [address] CO2 molar conc 27 mmol/L Normal 22-30 [facility] Comment on above: Performed By: #### H EMDArpita BMP3M ####[facility] [employer] [place] [address] Glucose mass conc 312 mg/dL High 70-100 [facility] Comment on above: Performed By: #### H GREGORIO BMP3M ####[place] [address] [place] [address] Urea nitrogen mass conc 19 mg/dL Normal 7-20 [facility] Comment on above: Performed By: #### H GREGORIO BMP3M ####[place] [address] [place] [address] Creatinine mass conc 0.87 mg/dL Normal 0.52-1.25 [facility] Comment on above: Performed By: #### H GREGORIO BMP3M ####[place] [address] [place] [address] GFR/1.73 sq M predicted among blacks MDRD vol rate/area (S/P/Bld) mL/min/{1.73_m2} Normal >60 [facility] Comment on above: Performed By: #### H GREGORIO BMP3M ####[place] [address] [place] [address] GFR/1.73 sq M predicted among non-blacks MDRD vol rate/area (S/P/Bld) mL/min/{1.73_m2} Normal >60 [facility] Comment on above: Result Comment: Sour ce- MDRD equation with creatinine calibration to IDMS(NKDEP) eGFR not recommended for drug dose adjustment Performed By: #### H GREGORIO BMP3M ####[place] [address] [place] [address] Chloride molar conc 99 mmol/L Normal 98-107 [facility] Comment on above: Performed By: #### H GREGORIO BMP3M ####[place] [address] [place] [address] Potassium molar conc 4.6 mmol/L Normal 3.5-5.1 [facility] Comment on above: Performed By: #### H GREGORIO BMP3M ####[place] [address] [place] [address] Sodium molar conc 136 mmol/L Low 137-145 [facility] Comment on above: Performed By: #### H [address] ####[place] [address] [place] [address] Diagnostic Catherizationon 1 08-03-2017 Diagnostic Catherization Patient Name: MELANIE RESTREPO [employer] Exam Date/Time 06/03/2018 11:35:14 EST Exam Diagnostic Catherization Ordering Physician MD KARY, SALMA Cobian Accession Number [id number] Reason For Exam Chest pain, unspecified Report [facility] --- CARDIAC CATHETERIZATION Patient: Melanie Restrepo Procedure Date: 06/03/2018 : 1965 Age: 53 Gender: F Patient Type: Inpatient Procedure physician: Salma Preston Fellow: Referring Physician: Salma Preston --- INDICATIONS: Positive nuclear medicine stress test. --- Procedures performed: - Left coronary angiography. - Left heart catheterization. - Right coronary angiography. --- IMPRESSIONS: No significant obstructive coronary artery disease. Symptoms suggestive of microvascular dysfunction. RECOMMENDATIONS: 1. Patient management should include aggressive risk factor modification. 2. Add optimal medical therapy of the patient's disease. --- HISTORY: Risk factors: Hypertension. Diabetes mellitus; on therapy with insulin. Dyslipidemia. Allergies: No known allergies. --- PROCEDURE IN DETAIL: Study status: Cardiac cath: urgent. Consent: The risks, benefits, and alternatives to the procedure and sedation were explained to the patient and informed consent was obtained. Fluoroscopy time: Fluorosco py time: 17.2 min. Fluoroscopy dose: Fluoroscopy dose: 290.7 cGy. Locatio n: Catheterization laboratory. PROCEDURE: 1. Initial setup. The patient was brought to the laboratory. A baseline ECG was recorded. Intravenous access was obtained. Surface ECG leads, blood pressure measurements, and pulse oximetric signals were monitored. 2. Skin preparation. The planned puncture sites were prepped and draped in the usual sterile manner. 3. Local anesthesia. 1% Lidocaine was administered. 4. Right radial artery access. A 6Fr/10cm Glidesheath Slender sheath was advanced into the vessel. 5. Selective left coronary angiography. A 5Fr x 100cm Chalino Radial catheter was advanced into the left coronary vessel ostium under fluoroscopic guidance. Contrast was injected. Images were obtained in multiple projections. 6. Left heart catheterization. A 5Fr x 100cm Chalino Radial catheter was advanced across the aortic valve to the left ventricle under fluoroscopic guidance. 7. Selective right coronary angiography. A 5Fr x 100cm AR I MOD catheter was advanced into the right coronary vessel ostium under fluoroscopic guidance. Contrast was injected. Images were obtained in multiple projections. 8. Right radial artery hemostasis. The sheath was removed. Mechanical compression was applied. STUDY COMPLETION: All catheters inserted during the procedure were removed. The patient tolerated the procedure well and was discharged from the lab. There were no complications. Administered medications: Midazolam, 1mg, VERSED. N ITROGLYCERIN (IA), 200mcg, NITROGLYCERIN (IA). Verapamil (Isoptin, Calan, [place] ra), 2.5mg, VERAPAMIL. Heparin, 3000units, HEPARIN. Fentanyl, for a total dos e of 50mcg, FENTANYL. Contrast: 1. ISOVUE 300MG/CC 101 ml (total dose). --- CORONARY ARTERIES: The coronary circulation is right dominant. The left main bifurcates normally into the LAD and circumflex. Left main: Normal, well visualized. No evidence of disease. LAD: The proximal vessel has no significant disease. The middle portion of the vessel has no significant disease. The distal vessel has minor luminal irregula rities. Left circumflex: Minor luminal irregularities. 1st obtuse marginal: Minor luminal irregularities. Right coronary: Normal, well visualized. No evidence of significant disease. Right posterior descending: Minor luminal irregularities. LEFT VENTRICLE: A recent ejection fraction by echocardiography is available. AORTIC VALVE: There is no stenosis. HEMODYNAMICS: + + + !Stage description !Condition1:Room Air -! + + + !LV pressure s/ed !184/19 ! + + + !Arterial pressure s/d (m)!168/103 (134) ! + + + Prepared and electronically signed by Salma Preston 06/03/2018 12:44 Final Dictated: 06/03/2018 12:44 pm Dictating Physician: MD PRESTON MUHAMMAD A Signed Date and Time: 06/03/2018 12:44 pm Signed by: MD PRESTON MUHAMMAD A Normal [facility] Hemogram w/ Autodiffon 06-03 Abs Baso Cnt 0.0 10*3/uL Normal 0.0-0.2 [facility] Comment on above: Performed By: #### H JOSH PERKINS ####[facility] [employer] [id number] [place] [address] Abs Neutrophile Cnt 2.4 10*3/uL Normal 1.8-7.0 [facility] Comment on above: Performed By: #### H TRELL PERKINS3Raina ####[facility] [employer] [id number] [place] [address] Basophils/100 WBC Auto (Bld) 0.4 % Normal 0.0-2.0 [facility] Comment on above: Performed By: #### H TRELL PERKINS3Raina ####[facility] [employer] [id number] [place] [address] Eosinophils Auto #/vol (Bld) 0.0 10*3/uL Normal 0.0-0.5 [facility] Comment on above: Performed By: #### H JOSH PERKINS ####[place] [address] [place], [place] Eosinophils/100 WBC Auto (Bld) 0.2 % Low 1.0-6.0 [facility] Comment on above: Performed By: #### H GREGORIO BMP3M ####[place] [address] [place], [place] Erythrocyte distribution width Auto Ratio (RBC) 16.3 % High 11.5-14.5 [facility] Comment on above: Performed By: #### H GREGORIO BMP3M ####[address] Granulocytes/100 WBC (Bld) 61.5 % Normal 40.0-80.0 [facility] Comment on above: Performed By: #### H GREGORIO BMP3M ####[address] Hematocrit Auto Volume Fraction (Bld) 35.7 % Normal 35.0-47.0 [facility] Comment on above: Performed By: #### H GREGORIO BMP3M ####[address] Hemoglobin mass conc (Bld) 11.9 g/dL Normal 11.7-16.0 [facility] Comment on above: Performed By: #### H GREGORIO BMP3M ####[address] Lymphocytes Auto #/vol (Bld) 1.2 10*3/uL Normal 1.0-4.3 [facility] Comment on above: Performed By: #### H EMDF BMP3M ####[address] Lymphocytes/100 WBC Auto (Bld) 29.6 % Normal 20.0-40.0 [facility] Comment on above: Performed By: #### H EMDF BMP3M ####[address] MCH Auto Entitic mass (RBC) 29.0 pg Normal 26.0-34.0 [facility] Comment on above: Performed By: #### H GREGORIO BMP3M ####[address] MCHC Auto mass conc (RBC) 33.3 % Normal 32.0-36.0 [facility] Comment on above: Performed By: #### H GREGORIO BMP3M ####[address] MCV Auto Entitic volume (RBC) 86.9 fL Normal 79.0-98.0 [facility] Comment on above: Performed By: #### H GREGORIO [id number] ####[address] Monocytes Auto #/vol (Bld) 0.3 10*3/uL Normal 0.0-0.8 [facility] Comment on above: Performed By: #### H GREGORIO [id number] ####[address] Monocytes/100 WBC Auto (Bld) 8.3 % Normal 2.0-10.0 [facility] Comment on above: Performed By: #### Selam PERKINS [id number] ####[address] Platelet mean volume Auto Entitic volume (Bld) 8.7 fL Normal 7.4-10.4 [facility] Comment on above: Performed By: #### H GREGORIO [id number] ####[address] Platelets Auto #/vol (Bld) 88 10*3/uL Low 140-440 [facility] Comment on above: Performed By: #### H GREGORIO [id number] ####[address] RBC Auto #/vol (Bld) 4.11 10*6/uL Normal 3.80-5.20 [facility] Comment on above: Performed By: #### H GREGORIO [id number] ####[id number] [place] [address] WBC Auto #/vol (Bld) 3.9 10*3/uL Normal 3.6-10.7 [facility] Comment on above: Performed By: #### H EMDF, BMP3M ####[facility] [place] [address] Vital Signs Date Time Vital Sign Value Performing Clinician Facility 10-24-2024 07:22-0400 Body mass index (BMI) [Ratio] 44.57 kg/m2 Scar Bridenthal BACTERIOLOGIST DAIRY - PATTERN CARRIER Work Phone: [facility] 10-24-2024 07:22-0400 Body temperature 97.2 [degF] Scar Bridenthal BACTERIOLOGIST DAIRY - PATTERN CARRIER Work Phone: [facility] 10-24-2024 07:22-0400 Body weight 123.38 kg Scar Bridenthal BACTERIOLOGIST DAIRY - PATTERN CARRIER Work Phone: [facility] 10-24-2024 07:22-0400 Diastolic blood pressure 72 mm[Hg] Scar Bridenthal BACTERIOLOGIST DAIRY - PATTERN CARRIER Work Phone: [facility] 10-24-2024 07:22-0400 Heart rate 63 /min Scar Bridenthal BACTERIOLOGIST DAIRY - PATTERN CARRIER Work Phone: [facility] 10-24-2024 07:22-0400 Respiratory rate 18 /min Scar Bridenthal BACTERIOLOGIST DAIRY - PATTERN CARRIER Work Phone: [facility] 10-24-2024 07:22-0400 SaO2% (BldA) [Mass fraction] 95 % Scar Bridenthal BACTERIOLOGIST DAIRY - PATTERN CARRIER Work Phone: [facility] 10-24-2024 07:22-0400 Systolic blood pressure 124 mm[Hg] Scar Bridenthal BACTERIOLOGIST DAIRY - PATTERN CARRIER Work Phone: [facility] 09-27-2024 15:05-0400 Body mass index (BMI) [Ratio] 44.25 kg/m2 Jimenez Maddox MD Work Phone: [facility] 09-27-2024 15:05-0400 Body weight 122.47 kg Jimenez Maddox MD Work Phone: [facility] 09-27-2024 14:42-0400 Body temperature 99.19 [degF] Jimenez Maddox MD Work Phone: [facility] 09-27-2024 14:42-0400 Diastolic blood pressure 100 mm[Hg] Jimenez Maddox MD Work Phone: [facility] 09-27-2024 14:42-0400 Heart rate 100 /min Jimenez Maddox MD Work Phone: [facility] 09-27-2024 14:42-0400 Respiratory rate 15 /min Jimenez Maddox MD Work Phone: [facility] 09-27-2024 14:42-0400 SaO2% (BldA) [Mass fraction] 97 % Jimenez Maddox MD Work Phone: [facility] 09-27-2024 14:42-0400 Systolic blood pressure 165 mm[Hg] Jimenez Maddox MD Work Phone: [facility] 08-25-2024 13:55-0500 Body temperature 97 [degF] Kate Desir BACTERIOLOGIST DAIRY - PATTERN CARRIER Work Phone: [facility] Comment on above: Patient Reported 08-25-2024 13:55-0500 Heart rate 73 /min Kate Desir BACTERIOLOGIST DAIRY - PATTERN CARRIER Work Phone: [facility] 08-25-2024 13:55-0500 SaO2% (BldA) [Mass fraction] 97 % Kate Desir BACTERIOLOGIST DAIRY - PATTERN CARRIER Work Phone: [facility] 08-01-2024 07:35-0500 Body mass index (BMI) [Ratio] 44.25 kg/m2 Scardede Murphyenthal BACTERIOLOGIST DAIRY - PATTERN CARRIER Work Phone: [facility] 08-01-2024 07:35-0500 Body temperature 96.91 [degF] Scar Katherineenthal BACTERIOLOGIST DAIRY - PATTERN CARRIER Work Phone: [facility] 08-01-2024 07:35-0500 Body weight 122.47 kg Scar Bridenthal BACTERIOLOGIST DAIRY - PATTERN CARRIER Work Phone: [facility] 08-01-2024 07:35-0500 Diastolic blood pressure 81 mm[Hg] Scar Bridenthal BACTERIOLOGIST DAIRY - PATTERN CARRIER Work Phone: [facility] 08-01-2024 07:35-0500 Heart rate 72 /min Scar Bridenthal BACTERIOLOGIST DAIRY - PATTERN CARRIER Work Phone: [facility] 08-01-2024 07:35-0500 Respiratory rate 18 /min Scar Bridenthal BACTERIOLOGIST DAIRY - PATTERN CARRIER Work Phone: [facility] 08-01-2024 07:35-0500 SaO2% (BldA) [Mass fraction] 94 % Scar Bridenthal BACTERIOLOGIST DAIRY - PATTERN CARRIER Work Phone: [facility] 08-01-2024 07:35-0500 Systolic blood pressure 137 mm[Hg] Scar Bridenthal BACTERIOLOGIST DAIRY - PATTERN CARRIER Work Phone: [facility] 02-26-2024 08:09-0400 Body mass index (BMI) [Ratio] 44.25 kg/m2 Nelson Grady MD Work Phone: [facility] 02-26-2024 08:09-0400 Body temperature 97.7 [degF] Nelson Grady MD Work Phone: [facility] 02-26-2024 08:09-0400 Body weight 122.47 kg Nelson Grady MD Work Phone: [facility] 02-26-2024 08:09-0400 Diastolic blood pressure 94 mm[Hg] Nelson Grady MD Work Phone: [facility] 02-26-2024 08:09-0400 Heart rate 80 /min Nelson Grady MD Work Phone: [facility] 02-26-2024 08:09-0400 Respiratory rate 12 /min Nelson Grady MD Work Phone: [facility] 02-26-2024 08:09-0400 SaO2% (BldA) [Mass fraction] 96 % Nelson Grady MD Work Phone: [facility] 02-26-2024 08:09-0400 Systolic blood pressure 170 mm[Hg] Nelson Grady MD Work Phone: [facility] 02-19-2024 15:22-0400 Diastolic blood pressure 92 mm[Hg] See Ricketts MD Work Phone: [facility] 02-19-2024 15:22-0400 Heart rate 71 /min See Ricketts MD Work Phone: [facility] 02-19-2024 15:22-0400 Respiratory rate 18 /min See Ricketts MD Work Phone: [facility] 02-19-2024 15:22-0400 SaO2% (BldA) [Mass fraction] 100 % See Ricketts MD Work Phone: [facility] 02-19-2024 15:22-0400 Systolic blood pressure 144 mm[Hg] See Ricketts MD Work Phone: [facility] 02-19-2024 10:56-0400 Body mass index (BMI) [Ratio] 45.07 kg/m2 See Ricketts MD Work Phone: [facility] 02-19-2024 10:56-0400 Body temperature 97.39 [degF] See Ricketts MD Work Phone: [facility] 02-19-2024 10:56-0400 Body weight 124.74 kg See Ricketts MD Work Phone: [facility] 12-13-2023 20:36-0400 Body temperature 98.01 [degF] Victorino Akins MD Work Phone: [facility] 12-13-2023 20:02-0400 Diastolic blood pressure 72 mm[Hg] Victorino Akins MD Work Phone: [facility] 12-13-2023 20:02-0400 Heart rate 74 /min Victorino Akins MD Work Phone: [facility] 12-13-2023 20:02-0400 Respiratory rate 16 /min Victorino Akins MD Work Phone: [facility] 12-13-2023 20:02-0400 SaO2% (BldA) [Mass fraction] 93 % Victorino Akins MD Work Phone: [facility] 12-13-2023 20:02-0400 Systolic blood pressure 126 mm[Hg] Victorino Akins MD Work Phone: [facility] 12-13-2023 18:46-0400 Body height 166.4 cm Victorino Akins MD Work Phone: [facility] 12-13-2023 18:46-0400 Body mass index (BMI) [Ratio] 44.25 kg/m2 Victorino Akins MD Work Phone: [facility] 12-13-2023 18:46-0400 Body weight 122.47 kg Victorino Akins MD Work Phone: [facility] 12-04-2023 18:09-0400 Body temperature 98.2 [degF] See Ricketts MD Work Phone: [facility] 12-04-2023 18:09-0400 Diastolic blood pressure 88 mm[Hg] See Ricketts MD Work Phone: [facility] 12-04-2023 18:09-0400 Heart rate 76 /min See Ricketts MD Work Phone: [facility] 12-04-2023 18:09-0400 Respiratory rate 18 /min See Ricketts MD Work Phone: [facility] 12-04-2023 18:09-0400 SaO2% (BldA) [Mass fraction] 97 % See Ricketts MD Work Phone: [facility] 12-04-2023 18:09-0400 Systolic blood pressure 145 mm[Hg] See Ricketts MD Work Phone: [facility] 11-11-2023 07:16-0400 Body mass index (BMI) [Ratio] 45.93 kg/m2 Scar Bridenthal BACTERIOLOGIST DAIRY - PATTERN CARRIER Work Phone: [facility] 11-11-2023 07:16-0400 Body temperature 97.7 [degF] Scar Bridenthal BACTERIOLOGIST DAIRY - PATTERN CARRIER Work Phone: [facility] 11-11-2023 07:16-0400 Body weight 125.19 kg Scar Bridenthal BACTERIOLOGIST DAIRY - PATTERN CARRIER Work Phone: [facility] 11-11-2023 07:16-0400 Diastolic blood pressure 60 mm[Hg] Scar Bridenthal BACTERIOLOGIST DAIRY - PATTERN CARRIER Work Phone: [facility] 11-11-2023 07:16-0400 Heart rate 77 /min Scar Bridenthal BACTERIOLOGIST DAIRY - PATTERN CARRIER Work Phone: [facility] 11-11-2023 07:16-0400 Respiratory rate 16 /min Scar Bridenthal BACTERIOLOGIST DAIRY - PATTERN CARRIER Work Phone: [facility] 11-11-2023 07:16-0400 SaO2% (BldA) [Mass fraction] 96 % Scar Bridenthal BACTERIOLOGIST DAIRY - PATTERN CARRIER Work Phone: [facility] 11-11-2023 07:16-0400 Systolic blood pressure 114 mm[Hg] Scar Bridenthal BACTERIOLOGIST DAIRY - PATTERN CARRIER Work Phone: [facility] 10-13-2023 11:04-0400 Body height 165.1 cm Angel Juan MD Work Phone: [facility] 10-13-2023 11:04-0400 Body mass index (BMI) [Ratio] 45.18 kg/m2 Angel Juan MD Work Phone: [facility] 10-13-2023 11:04-0400 Body temperature 97.5 [degF] Angel Juan MD Work Phone: [facility] 10-13-2023 11:04-0400 Body weight 123.15 kg Angel Juan MD Work Phone: [facility] 10-13-2023 11:04-0400 Diastolic blood pressure 79 mm[Hg] Angel Juan MD Work Phone: [facility] 10-13-2023 11:04-0400 Heart rate 70 /min Angel Juan MD Work Phone: [facility] 10-13-2023 11:04-0400 SaO2% (BldA) [Mass fraction] 96 % Angel Juan MD Work Phone: [facility] 10-13-2023 11:04-0400 Systolic blood pressure 124 mm[Hg] Angel Juan MD Work Phone: [facility] 10-12-2023 15:31-0400 Body temperature 97.39 [degF] William Mudrakola DO Work Phone: [facility] 10-12-2023 15:31-0400 Diastolic blood pressure 81 mm[Hg] William Mudrakola DO Work Phone: [facility] 10-12-2023 15:31-0400 Heart rate 78 /min William Mudrakola DO Work Phone: [facility] 10-12-2023 15:31-0400 Respiratory rate 18 /min William Mudrakola DO Work Phone: [facility] 10-12-2023 15:31-0400 SaO2% (BldA) [Mass fraction] 97 % William Mudrakola DO Work Phone: [facility] 10-12-2023 15:31-0400 Systolic blood pressure 143 mm[Hg] William Mudrakola DO Work Phone: [facility] 09-22-2023 09:10-0400 Body height 165.1 cm Angel Juan MD Work Phone: [facility] 09-22-2023 09:10-0400 Body mass index (BMI) [Ratio] 45.9 kg/m2 Angel Juan MD Work Phone: [facility] 09-22-2023 09:10-0400 Body temperature 97.9 [degF] Angel Juan MD Work Phone: [facility] 09-22-2023 09:10-0400 Body weight 125.1 kg Angel Juan MD Work Phone: [facility] 09-22-2023 09:10-0400 Diastolic blood pressure 84 mm[Hg] Angel Juan MD Work Phone: [facility] 09-22-2023 09:10-0400 Heart rate 64 /min Angel Juan MD Work Phone: [facility] 09-22-2023 09:10-0400 SaO2% (BldA) [Mass fraction] 96 % Angel Juan MD Work Phone: [facility] 09-22-2023 09:10-0400 Systolic blood pressure 137 mm[Hg] Angel Juan MD Work Phone: [facility] 08-26-2023 09:25-0500 Diastolic blood pressure 77 mm[Hg] Scar Bridenthal BACTERIOLOGIST DAIRY - PATTERN CARRIER Work Phone: [facility] 08-26-2023 09:25-0500 Heart rate 89 /min Scar Bridenthal BACTERIOLOGIST DAIRY - PATTERN CARRIER Work Phone: [facility] 08-26-2023 09:25-0500 Systolic blood pressure 136 mm[Hg] Scar Bridenthal BACTERIOLOGIST DAIRY - PATTERN CARRIER Work Phone: [facility] 08-26-2023 08:25-0500 Body height 165.1 cm Scar Bridenthal BACTERIOLOGIST DAIRY - PATTERN CARRIER Work Phone: [facility] 08-26-2023 08:25-0500 Body mass index (BMI) [Ratio] 45.86 kg/m2 Scar Bridenthal BACTERIOLOGIST DAIRY - PATTERN CARRIER Work Phone: [facility] 08-26-2023 08:25-0500 Body temperature 99.1 [degF] Scar Katherineenthal BACTERIOLOGIST DAIRY - PATTERN CARRIER Work Phone: [facility] 08-26-2023 08:25-0500 Body weight 125.01 kg Scar Bridenthal BACTERIOLOGIST DAIRY - PATTERN CARRIER Work Phone: [facility] 08-26-2023 08:25-0500 Respiratory rate 24 /min Scar Bridenthal BACTERIOLOGIST DAIRY - PATTERN CARRIER Work Phone: [facility] 08-26-2023 08:25-0500 SaO2% (BldA) [Mass fraction] 97 % Scar Bridenthal BACTERIOLOGIST DAIRY - PATTERN CARRIER Work Phone: [facility] 05-16-2023 16:20-0500 Diastolic blood pressure 90 mm[Hg] Mariana Snow MD Work Phone: [facility] 05-16-2023 16:20-0500 Heart rate 95 /min Mariana Snow MD Work Phone: [facility] 05-16-2023 16:20-0500 Respiratory rate 18 /min Mariana Snow MD Work Phone: [facility] 05-16-2023 16:20-0500 SaO2% (BldA) [Mass fraction] 97 % Mariana Snow MD Work Phone: [facility] 05-16-2023 16:20-0500 Systolic blood pressure 133 mm[Hg] Mariana Snow MD Work Phone: [facility] 05-16-2023 12:37-0500 Body height 165.1 cm Mariana Snow MD Work Phone: [facility] 05-16-2023 12:37-0500 Body mass index (BMI) [Ratio] 46.76 kg/m2 Mariana Snow MD Work Phone: [facility] 05-16-2023 12:37-0500 Body weight 127.46 kg Mariana Snow MD Work Phone: [facility] 05-16-2023 12:33-0500 Body temperature 97.59 [degF] Mariana Snow MD Work Phone: [facility] 03-15-2023 10:23-0400 Body temperature 96.21 [degF] Yogesh Dodson MD Work Phone: [facility] 03-15-2023 10:23-0400 Diastolic blood pressure 95 mm[Hg] Yogesh Dodson MD Work Phone: [facility] 03-15-2023 10:23-0400 Heart rate 74 /min Yogseh Dodson MD Work Phone: [facility] 03-15-2023 10:23-0400 Respiratory rate 20 /min Yogesh Dodson MD Work Phone: [facility] 03-15-2023 10:23-0400 SaO2% (BldA) [Mass fraction] 98 % Yogesh Dodson MD Work Phone: [facility] 03-15-2023 10:23-0400 Systolic blood pressure 179 mm[Hg] Yogesh Dodson MD Work Phone: [facility] 02-20-2023 07:58-0400 Body temperature 97.81 [degF] Mariana Snow MD Work Phone: [facility] 02-20-2023 07:58-0400 Diastolic blood pressure 85 mm[Hg] Mariana Snow MD Work Phone: [facility] 02-20-2023 07:58-0400 Heart rate 67 /min Mariana Snow MD Work Phone: [facility] 02-20-2023 07:58-0400 Respiratory rate 20 /min Mariana Snow MD Work Phone: [facility] 02-20-2023 07:58-0400 SaO2% (BldA) [Mass fraction] 93 % Mariana Snow MD Work Phone: [facility] 02-20-2023 07:58-0400 Systolic blood pressure 132 mm[Hg] Mariana Snow MD Work Phone: [facility] 02-16-2023 08:25-0400 Body mass index (BMI) [Ratio] 48.7 kg/m2 Scar Bridenthal BACTERIOLOGIST DAIRY - PATTERN CARRIER Work Phone: [facility] 02-16-2023 08:25-0400 Body temperature 96.91 [degF] Scar Bridenthal BACTERIOLOGIST DAIRY - PATTERN CARRIER Work Phone: [facility] 02-16-2023 08:25-0400 Body weight 134.81 kg Scar Bridenthal BACTERIOLOGIST DAIRY - PATTERN CARRIER Work Phone: [facility] 02-16-2023 08:25-0400 Diastolic blood pressure 60 mm[Hg] Scar Bridenthal BACTERIOLOGIST DAIRY - PATTERN CARRIER Work Phone: [facility] 02-16-2023 08:25-0400 Heart rate 82 /min Scar Bridenthal BACTERIOLOGIST DAIRY - PATTERN CARRIER Work Phone: [facility] 02-16-2023 08:25-0400 Respiratory rate 18 /min Scar Bridenthal BACTERIOLOGIST DAIRY - PATTERN CARRIER Work Phone: [facility] 02-16-2023 08:25-0400 SaO2% (BldA) [Mass fraction] 95 % Scar Bridenthal BACTERIOLOGIST DAIRY - PATTERN CARRIER Work Phone: [facility] 02-16-2023 08:25-0400 Systolic blood pressure 128 mm[Hg] Scar Bridenthal BACTERIOLOGIST DAIRY - PATTERN CARRIER Work Phone: [facility] 02-13-2023 22:04-0400 Body temperature 98.29 [degF] Nelson Grady MD Work Phone: [facility] 02-13-2023 22:04-0400 Diastolic blood pressure 84 mm[Hg] Nelson Grady MD Work Phone: [facility] 02-13-2023 22:04-0400 Heart rate 74 /min Nelson Grady MD Work Phone: [facility] 02-13-2023 22:04-0400 Respiratory rate 18 /min Nelson Grady MD Work Phone: [facility] 02-13-2023 22:04-0400 SaO2% (BldA) [Mass fraction] 95 % Nelson Grady MD Work Phone: [facility] 02-13-2023 22:04-0400 Systolic blood pressure 136 mm[Hg] Nelson Grady MD Work Phone: [facility] 02-06-2023 21:00-0400 Body height 166.4 cm Izabela Noyola DO Work Phone: [facility] 02-06-2023 21:00-0400 Body mass index (BMI) [Ratio] 47.52 kg/m2 Izabela Noyola DO Work Phone: [facility] 02-06-2023 21:00-0400 Body temperature 98.1 [degF] Izabela Noyola DO Work Phone: [facility] 02-06-2023 21:00-0400 Body weight 131.54 kg Izabela Noyola DO Work Phone: [facility] 02-06-2023 21:00-0400 Diastolic blood pressure 68 mm[Hg] Izabela Noyola DO Work Phone: [facility] 02-06-2023 21:00-0400 Heart rate 80 /min Izabela Noyola DO Work Phone: [facility] 02-06-2023 21:00-0400 Respiratory rate 16 /min Izabela Noyola DO Work Phone: [facility] 02-06-2023 21:00-0400 SaO2% (BldA) [Mass fraction] 95 % Izabela Noyola DO Work Phone: [facility] 02-06-2023 21:00-0400 Systolic blood pressure 152 mm[Hg] Izabela Noyola DO Work Phone: [facility] 02-05-2023 00:13-0400 Diastolic blood pressure 78 mm[Hg] Jarvis Belcher MD Work Phone: [facility] 02-05-2023 00:13-0400 Heart rate 70 /min Jarvis Belcher MD Work Phone: [facility] 02-05-2023 00:13-0400 SaO2% (BldA) [Mass fraction] 95 % Jarvis Belcher MD Work Phone: [facility] 02-05-2023 00:13-0400 Systolic blood pressure 138 mm[Hg] Jarvis Belcher MD Work Phone: [facility] 02-04-2023 22:32-0400 Body temperature 97.9 [degF] Jarvis Belcher MD Work Phone: [facility] 02-04-2023 22:32-0400 Respiratory rate 18 /min Jarvis Belcher MD Work Phone: [facility] 02-04-2023 22:30-0400 Body height 165.1 cm Jarvis Belcher MD Work Phone: [facility] 02-04-2023 22:30-0400 Body mass index (BMI) [Ratio] 48.26 kg/m2 Jarvis Belcher MD Work Phone: [facility] 02-04-2023 22:30-0400 Body weight 131.54 kg Jarvis Belcher MD Work Phone: [facility] 01-14-2023 21:53-0400 Body temperature 96.8 [degF] See Ricketts MD Work Phone: [facility] 01-14-2023 21:53-0400 Heart rate 80 /min See Ricketts MD Work Phone: [facility] 01-14-2023 21:53-0400 SaO2% (BldA) [Mass fraction] 95 % See Ricketts MD Work Phone: [facility] 12-09-2022 11:16-0400 Body height 166.4 cm Scar Bazanal BACTERIOLOGIST DAIRY - PATTERN CARRIER Work Phone: [facility] 12-09-2022 11:16-0400 Body mass index (BMI) [Ratio] 50.64 kg/m2 Scar Bridenthal BACTERIOLOGIST DAIRY - PATTERN CARRIER Work Phone: [facility] 12-09-2022 11:16-0400 Body weight 140.16 kg Scar Bridenthal BACTERIOLOGIST DAIRY - PATTERN CARRIER Work Phone: [facility] 12-09-2022 11:16-0400 Diastolic blood pressure 62 mm[Hg] Sacr Katherineenthal BACTERIOLOGIST DAIRY - PATTERN CARRIER Work Phone: [facility] 12-09-2022 11:16-0400 Heart rate 75 /min Scar Katherineenthal BACTERIOLOGIST DAIRY - PATTERN CARRIER Work Phone: [facility] 12-09-2022 11:16-0400 SaO2% (BldA) [Mass fraction] 98 % Scar Bridenthal BACTERIOLOGIST DAIRY - PATTERN CARRIER Work Phone: [facility] 12-09-2022 11:16-0400 Systolic blood pressure 110 mm[Hg] Scar Bridenthal BACTERIOLOGIST DAIRY - PATTERN CARRIER Work Phone: [facility] 12-07-2022 10:30-0400 Diastolic blood pressure 70 mm[Hg] Catarino Gombash DO Work Phone: [facility] 12-07-2022 10:30-0400 Heart rate 77 /min Catarino Gombash DO Work Phone: [facility] 12-07-2022 10:30-0400 Respiratory rate 18 /min Catarino Gombash DO Work Phone: [facility] 12-07-2022 10:30-0400 SaO2% (BldA) [Mass fraction] 97 % Catarino Gombash DO Work Phone: [facility] 12-07-2022 10:30-0400 Systolic blood pressure 150 mm[Hg] Catarino Gombash DO Work Phone: [facility] 12-07-2022 08:34-0400 Body temperature 98.4 [degF] Catarino Arce DO Work Phone: [facility] 04-07-2022 14:13-0400 Body temperature 98 [degF] Dr. Rik Peña Work Phone: [facility] Work Phone: 04-07-2022 14:13-0400 Body weight 143.[address] Rik Peña Work Phone: [facility] Work Phone: 04-07-2022 14:13-0400 Diastolic blood pressure 71 mm[Hg] Dr. Rik Peña Work Phone: [facility] Work Phone: 04-07-2022 14:13-0400 Heart rate 88 /min Dr. Rik Peña Work Phone: [facility] Work Phone: 04-07-2022 14:13-0400 SaO2% (BldA) [Mass fraction] 94 % Dr. Rik Peña Work Phone: [facility] Work Phone: 04-07-2022 14:13-0400 Systolic blood pressure 119 mm[Hg] Dr. Rik Peña Work Phone: [facility] Work Phone: 03-07-2022 04:10-0400 Diastolic blood pressure 68 mm[Hg] Dr. Rik Peña Work Phone: [facility] Work Phone: 03-07-2022 04:10-0400 Heart rate 94 /min Dr. Rik Peña Work Phone: [facility] Work Phone: 03-07-2022 04:10-0400 Respiratory rate 18 /min Dr. Rik Peña Work Phone: [facility] Work Phone: 03-07-2022 04:10-0400 SaO2% (BldA) [Mass fraction] 94 % Dr. Rik Peña Work Phone: [facility] Work Phone: 03-07-2022 04:10-0400 Systolic blood pressure 130 mm[Hg] Dr. Rik Peña Work Phone: [facility] Work Phone: 03-06-2022 23:30-0400 Body height 165.[address] Rik Peña Work Phone: [facility] Work Phone: 03-06-2022 23:30-0400 Body mass index (BMI) [Ratio] 51.5 kg/m2 Dr. Rik Peña Work Phone: [facility] Work Phone: 03-06-2022 23:30-0400 Body temperature 96.6 [degF] Dr. Rik Peña Work Phone: [facility] Work Phone: 03-06-2022 23:30-0400 Body weight 140.[address] Rik Peña Work Phone: [facility] Work Phone: 02-16-2022 15:35-0400 Body mass index (BMI) [Ratio] 51.1 kg/m2 Dr. Rik Peña Work Phone: [facility] Work Phone: 02-16-2022 15:35-0400 Body temperature 98.2 [degF] Dr. Rik Peña Work Phone: [facility] Work Phone: 02-16-2022 15:35-0400 Body weight 139.[address] Rik Peña Work Phone: [facility] Work Phone: 02-16-2022 15:35-0400 Diastolic blood pressure 70 mm[Hg] Dr. Rik Peña Work Phone: [facility] Work Phone: 02-16-2022 15:35-0400 Heart rate 89 /min Dr. Rik Peña Work Phone: [facility] Work Phone: 02-16-2022 15:35-0400 Respiratory rate 18 /min Dr. Rik Peña Work Phone: [facility] Work Phone: 02-16-2022 15:35-0400 SaO2% (BldA) [Mass fraction] 95 % Dr. Rik Peña Work Phone: [facility] Work Phone: 02-16-2022 15:35-0400 Systolic blood pressure 102 mm[Hg] Dr. Rik Peña Work Phone: [facility] Work Phone: 04-04-2020 20:22-0400 BP Diastolic 74 mm[Hg] [facility] [place] 04-04-2020 20:22-0400 BP Systolic 112 mm[Hg] Khris [employer] [place] , [place] 04-04-2020 20:22-0400 Pulse (Heart Rate) 91 /min [facility] [place] 04-04-2020 20:22-0400 Pulse Oximetry 99 % Khris [employer] [place] , [place] 04-04-2020 20:22-0400 Respiratory Rate 18 /min [facility]ris [facility] 04-04-2020 15:43-0400 BMI (Body Mass Index) 51.09 kg/m2 Khris [employer], [place] 04-04-2020 15:43-0400 Body Temperature 96.8 [degF] [facility]ris [employer] [place] 04-04-2020 15:43-0400 Body weight 139.25 kg Khris [employer] [place] , [place] Encounters Encounter Date Encounter Type Care Provider Facility Start: 12-08-2024 End: 12-08-2024 ambulatory Deisi Nath Facility:[facility] Start: 11-29-2024 End: 11-29-2024 ambulatory Deisi Nath Facility:[facility] Start: 11-27-2024 End: 11-27-2024 ambulatory Deisi Nath Facility:[facility] Start: 11-25-2024 End: 11-25-2024 ambulatory Juan Francisco Evans Facility:[facility] Start: 11-15-2024 End: 11-15-2024 ambulatory Rosales Oviedo Facility:[facility] Start: 11-10-2024 End: 11-10-2024 ambulatory Deisi Nath Facility:[facility] Start: 11-06-2024 ambulatory See Ricketts Facility :[facility] Start: 10-31-2024 End: 10-31-2024 ambulatory See Liliam Facility:[facility] Start: 10-31-2024 End: 10-31-2024 ambulatory See Ricketts Facility:[facility] Start: 10-24-2024 End: 10-24-2024 Office outpatient visit 25 minutes Scartuyet Seymour BACTERIOLOGIST DAIRY - PATTERN CARRIER Work Phone: [facility] Comment on above: Type 2 diabetes kyle itus with polyneuropathy (HCC) (Primary Dx); Vitamin B 12 deficiency; Pancytopenia (HCC); Pain management; Current mild episode of major depressive disorder without prior episode (HCC); Diabetic nephropathy associated with type 2 diabetes mellitus (HCC); Other cirrhosis of liver (HCC); Anxiety; Essential hypertension; Hyperlipidemia LDL goal <70; Encounter for screening mammogram for malignant neoplasm of breast; Type 2 diabetes mellitus with hyperglycemia, unspecified whether termite helper insulin use (HCC); Yeast dermatitis; Class 3 severe obesity due to excess calories with serious comorbidity and body mass index (BMI) of 40.0 to 44.9 in adult (HCC) Start: 10-24-2024 End: 10-24-2024 ambulatory SCARTUYET BAZANAL [facility] Start: 10-03-2024 End: 10-03-2024 Refill Scar Hortensiaal BACTERIOLOGIST DAIRY - PATTERN CARRIER Work Phone: [facility] Comment on above: Anxiety; Essential hypertension Start: 09-27-2024 End: 09-27-2024 Emergency department patient visit Jimenez Maddox MD Work Phone: [facility] Comment on above: Hyperglycemia (Prima ry Dx); CARLOS (acute kidney injury) (HCC); Facial flushing Start: 09-27-2024 End: 09-30-2024 ambulatory Debra Wheeler RN [facility] Clinical Communication Start: 09-27-2024 End: 09-30-2024 Patient encounter procedure Debra Wheeler RN [facility] Clinical Communication Start: 09-20-2024 End: 09-20-2024 Refill Scar Seymour BACTERIOLOGIST DAIRY - PATTERN CARRIER Work Phone: [facility] Comment on above: Type 2 diabetes kyle itus with hyperglycemia, unspecified whether termite helper insulin use (HCC) Start: 09-02-2024 End: 09-02-2024 Emergency department patient visit [facility] Facility:[facility] Start: 08-25-2024 End: 08-25-2024 Office outpatient visit 15 minutes Kate Desir BACTERIOLOGIST DAIRY - PATTERN CARRIER Work Phone: [facility] Comment on above: URI with cough and c ongestion (Primary Dx); Chronic bronchitis, unspecified chronic bronchitis type (HCC) Start: 08-02-2024 End: 08-02-2024 Telephone encounter Scar Seymour BACTERIOLOGIST DAIRY - PATTERN CARRIER Work Phone: [facility] Comment on above: Results Start: 08-01-2024 End: 08-01-2024 Office outpatient visit 25 minutes Scar Seymour BACTERIOLOGIST DAIRY - PATTERN CARRIER Work Phone: [facility] Comment on above: 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); Low platelet count (HCC); Essential hypertension; Hyperlipidemia LDL goal <70; Obstructive sleep apnea syndrome; Pancytopenia (HCC); Encounter for screening mammogram for malignant neoplasm of breast; Type 2 diabetes mellitus with hyperglycemia, unspecified whether termite helper insulin use (HCC); Other cirrhosis of liver (HCC); Chronic bronchitis, unspecified chronic bronchitis type (HCC); Current mild episode of major depressive disorder without prior episode (HCC); Class 3 severe obesity due to excess calories with serious comorbidity and body mass index (BMI) of 40.0 to 44.9 in adult (HCC); Vitamin B 12 deficiency; Anxiety; Financial difficulty Start: 06-30-2024 End: 06-30-2024 Orders Only Kate Desir BACTERIOLOGIST DAIRY - PATTERN CARRIER Work Phone: [facility] Comment on above: Type 2 diabetes kyle itus with hyperglycemia, unspecified whether termite helper insulin use (HCC) (Primary Dx) Start: 06-28-2024 End: 06-28-2024 Orders Only Kate Desir BACTERIOLOGIST DAIRY - PATTERN CARRIER Work Phone: [facility] Start: 05-30-2024 End: 05-30-2024 Orders Only Scar Bridenthal BACTERIOLOGIST DAIRY - PATTERN CARRIER Work Phone: [facility] Comment on above: Chronic bronchitis, unspecified chronic bronchitis type (HCC) (Primary Dx) Start: 05-28-2024 End: 05-29-2024 Refill Scar Bridenthal BACTERIOLOGIST DAIRY - PATTERN CARRIER Work Phone: [facility] Comment on above: Anxiety; Essential hypertension Start: 05-28-2024 End: 05-29-2024 Refill Scar Bridenthal BACTERIOLOGIST DAIRY - PATTERN CARRIER Work Phone: [facility] Comment on above: Type 2 diabetes kyle itus with polyneuropathy (HCC) Start: 04-23-2024 End: 04-23-2024 Emergency department patient visit Rc Freeman Facility:[facility] Start: 03-22-2024 End: 03-22-2024 Emergency department patient visit Alfonso Covarrubias Facility:[facility] Start: 03-02-2024 End: 03-02-2024 Refill Scar Bridenthal BACTERIOLOGIST DAIRY - PATTERN CARRIER Work Phone: [facility] Comment on above: Anxiety Start: 02-26-2024 End: 02-26-2024 Emergency department patient visit Nelson Grady MD Work Phone: [facility] Comment on above: Intertrigo (Primary Dx) Start: 02-19-2024 End: 02-19-2024 Emergency department patient visit See Ricketts MD Work Phone: [facility] Comment on above: Acute nonintractable headache, unspecified headache type (Primary Dx) Start: 01-03-2024 End: 01-03-2024 Refill Scar Katherineenthal BACTERIOLOGIST DAIRY - PATTERN CARRIER Work Phone: [facility] Comment on above: Anxiety; Essential hypertension; Type 2 diabetes mellitus with polyneuropathy (HCC) Start: 12-13-2023 End: 12-13-2023 Emergency department patient visit Victorino Akins MD Work Phone: [facility] Comment on above: Hypoglycemia (Primar y Dx) Start: 12-04-2023 End: 12-04-2023 Emergency department patient visit See Ricketts MD Work Phone: [facility] Comment on above: Type 2 diabetes kyle itus treated with insulin (CMS/HCC) (HCC) (Primary Dx) Start: 11-16-2023 Telephone encounter Brynn Devine RN [facility] Comment on above: Diabetes (CGM Diabet es) Start: 11-11-2023 End: 11-11-2023 Office outpatient visit 25 minutes Scar Bridenthal BACTERIOLOGIST DAIRY - PATTERN CARRIER Work Phone: [facility] Comment on above: Hyponatremia (Primar y Dx); Type 2 diabetes mellitus with polyneuropathy (HCC); Other cirrhosis of liver (HCC); Pancytopenia (HCC) Start: 10-14-2023 Orders Only Scar Katherineen thal BACTERIOLOGIST DAIRY - PATTERN CARRIER Work Phone: [facility] Comment on above: Type 2 diabetes kyle itus with polyneuropathy (HCC) (Primary Dx) Start: 10-13-2023 Refill Scar Katherineen thal BACTERIOLOGIST DAIRY - PATTERN CARRIER Work Phone: [facility] Comment on above: Type 2 diabetes kyle itus with polyneuropathy (HCC) b12 Start: 10-13-2023 End: 10-13-2023 Office outpatient visit 40 minutes Angel Juan MD Work Phone: [facility] Comment on above: Pancytopenia (HCC) ( Primary Dx) Start: 10-11-2023 End: 10-12-2023 Emergency department patient visit William Max DO Work Phone: [facility] Comment on above: Hypoglycemia (Primar y Dx) Start: 09-30-2023 End: 09-30-2023 Subsequent hospital visit by physician Angel Juan MD Work Phone: [facility] Comment on above: Pancytopenia (HCC) Start: 09-22-2023 End: 09-22-2023 Office outpatient new 60 minutes Angel Juan MD Work Phone: [facility] Comment on above: Pancytopenia (HCC) ( Primary Dx) Start: 08-26-2023 End: 08-26-2023 Patient encounter procedure Scar Seymour BACTERIOLOGIST DAIRY - PATTERN CARRIER Work Phone: [facility] [employer] Work Phone: Start: 08-26-2023 End: 08-26-2023 Periodic preventive med est patient 40-64yrs Scar Seymour BACTERIOLOGIST DAIRY - PATTERN CARRIER Work Phone: [facility] Comment on above: Annual physical exam (Primary Dx); Type 2 diabetes mellitus with polyneuropathy (HCC); Back strain, initial encounter; Essential hypertension; Recurrent major depressive disorder, in partial remission (HCC); Anxiety; Lymphopenia; Hyperlipidemia LDL goal <70; Encounter for screening mammogram for malignant neoplasm of breast; Colon cancer screening; Urinary tract infection symptoms; Other cirrhosis of liver (HCC); Thrombocytopenia (HCC); Chronic bronchitis, unspecified chronic bronchitis type (HCC); Gastroesophageal reflux disease without esophagitis; Migraine without aura and without status migrainosus, not intractable; Obstructive sleep apnea syndrome; Lip lesion Start: 05-16-2023 End: 05-16-2023 Emergency department patient visit Mariana Snow MD Work Phone: [facility] Comment on above: Chest pain, unspecif ied type (Primary Dx) Start: 03-15-2023 End: 03-15-2023 Emergency department patient visit Yogesh Dodson MD Work Phone: [facility] Comment on above: Strain of neck muscl e, initial encounter (Primary Dx) Start: 02-18-2023 End: 02-20-2023 Emergency department patient visit Mariana Snow MD Work Phone: [facility] Comment on above: Hypoglycemia (Primar y Dx) Start: 02-16-2023 End: 02-16-2023 Office outpatient visit 25 minutes Scar Seymour APRN - PATTERN CARRIER Work Phone: [facility] Comment on above: Lymphopenia (Primary Dx); Thrombocytopenia (HCC); Type 2 diabetes mellitus with polyneuropathy (HCC); Acute pain of left knee; Essential hypertension Start: 02-13-2023 End: 02-13-2023 Emergency department patient visit Nelson Grady MD Work Phone: [facility] Comment on above: Near syncope (Primar y Dx) Start: 02-06-2023 End: 02-06-2023 Subsequent hospital visit by physician [facility] [employer] [facility] Comment on above: Arrived Start: 02-06-2023 End: 02-06-2023 Emergency department patient visit Izabela Noyola DO Work Phone: [facility] Comment on above: Sprain of left knee, unspecified ligament, initial encounter (Primary Dx) Start: 02-04-2023 End: 02-05-2023 Emergency department patient visit Jarvis Belcher MD Work Phone: [facility] Comment on above: Abscess (Primary Dx) ; Lilly infection Start: 01-14-2023 End: 01-14-2023 Emergency department patient visit See Ricketts MD Work Phone: [facility] Comment on above: Fall, initial encoun ter (Primary Dx); Left hand pain; Left wrist pain; Left shoulder pain, unspecified chronicity Start: 12-09-2022 End: 12-09-2022 Office outpatient new 45 minutes Scar Seymour BACTERIOLOGIST DAIRY - PATTERN CARRIER Work Phone: [facility] Comment on above: Lip swelling (Primar y Dx); Type 2 diabetes mellitus with polyneuropathy (HCC); Chronic obstructive pulmonary disease, unspecified COPD type (HCC); Essential hypertension; Hyperlipidemia LDL goal <70; Anxiety Start: 12-07-2022 End: 12-07-2022 Emergency department patient visit Catarino Arce Work Phone: [facility] Comment on above: Angioedema, initial encounter (Primary Dx); Lip swelling; Cold sore Start: 05-22-2022 End: 05-22-[address] Rik Peña Work Phone: [facility] Work Phone: Start: 05-22-2022 End: 05-22-[address] Rik Peña Work Phone: [facility] Start: 05-20-2022 End: 05-20-[address] Rik Peña Work Phone: [facility] Work Phone: Start: 05-20-2022 End: 05-20-[address] Rik Peña Work Phone: [facility] Start: 04-07-2022 End: 04-07-[address] Rik Peña Work Phone: [facility] Work Phone: Start: 04-07-2022 End: 04-07-[address] Rik Peña Work Phone: [facility] Start: 03-31-2022 Non-patient / Non-visit Dr. Hermes Peña Work Phone: [facility] Start: 03-31-2022 End: 03-31-[address] Rik Peña Work Phone: [facility]Cardiovascula [facility] Services Start: 03-06-2022 End: 03-07-2022 Emergency department patient visit Dr. Rik Peña Work Phone: [facility]-Emergency Department Start: 02-16-[address] Rik Peña Work Phone: [facility] Start: 02-16-2022 End: 02-16-[address] Rik Peña Work Phone: [facility] Start: 02-09-2022 End: 02-09-2022 Patient encounter procedure [facility]Out[facility] Start: 11-07-2021 End: 11-07-2021 Patient encounter procedure [facility] Start: 06-14-2020 End: 06-14-2020 Subsequent hospital visit by physician Naldo Ramos Work Phone: [facility] Comment on above: Nonintractable heada dara, unspecified chronicity pattern, unspecified headache type; Body aches; Cough; Head congestion; Mid back pain; Chest pain varying with breathing; Hx of bacterial pneumonia; Lab test negative for COVID-19 virus; SOB (shortness of breath) Start: 04-20-2020 End: 04-20-2020 Subsequent hospital visit by physician Dyllan Collins Work Phone: [facility] Start: 04-04-2020 End: 04-04-2020 Emergency department patient visit Khris Bright Work Phone: [facility] Comment on above: Chest pain, unspecif ied type (Primary Dx) Start: 02-07-2020 End: 02-07-2020 Subsequent hospital visit by physician See Ricketts Work Phone: [facility] Comment on above: Arrived Start: 01-23-2020 End: 01-23-2020 Subsequent hospital visit by physician Dyllan Collins Work Phone: [facility] Start: 10-12-2019 End: 10-12-2019 Subsequent hospital visit by physician Dyllan Collins Work Phone: [facility] Start: 2018 Evaluation and management of inpatient UNKNOWN PROVIDER [facility] Procedures Date Procedure Procedure Detail Performing Clinician Start: 09-27-2024 End: 09-27-2024 Basic metabolic panel calcium total Jimenez Maddox MD Work Phone: Start: 09-27-2024 Ecg routine ecg w/le ast 12 lds trcg only w/o i&r Jimenez Maddox MD Work Phone: Start: 09-27-2024 Blood gases any comb ination ph pco2 po2 co2 hco3 Jimenez Maddox MD Work Phone: Start: 09-27-2024 Comprehensive metabo lic panel Jimenez Maddox MD Work Phone: Start: 09-27-2024 Manual Differential panel - Blood Jimenez Maddox MD Work Phone: Start: 09-27-2024 POCT GLUCOSE METER UNSOLICITED RESULTS Jimenez Maddox MD Work Phone: Start: 08-31-2024 Lipid 1996 panel - S ariana or Plasma Scar Bridenthal BACTERIOLOGIST DAIRY - PATTERN CARRIER Work Phone: Start: 08-01-2024 Lipid 1996 panel - S ariana or Plasma Scar Bridenthal BACTERIOLOGIST DAIRY - PATTERN CARRIER Work Phone: Start: 02-19-2024 Urinalysis complete panel - Urine Lesia Solis BACTERIOLOGIST DAIRY - PATTERN CARRIER Work Phone: Start: 02-19-2024 Urnls dip stick/tabl et reagent auto microscopy Lesia Solis BACTERIOLOGIST DAIRY - PATTERN CARRIER Work Phone: Start: 02-19-2024 Ct head/brain w/o co ntrast material Lesia Solis BACTERIOLOGIST DAIRY - PATTERN CARRIER Work Phone: Start: 02-19-2024 SARS-COV-2, FLU A/B, AND RSV COMBO Lesia Solis BACTERIOLOGIST DAIRY - PATTERN CARRIER Work Phone: Start: 02-19-2024 Comprehensive metabo lic panel Lesia Solis BACTERIOLOGIST DAIRY - PATTERN CARRIER Work Phone: Start: 02-19-2024 Manual differential performed [Presence] in Blood Lesia Solis BACTERIOLOGIST DAIRY - PATTERN CARRIER Work Phone: Start: 12-13-2023 POCT GLUCOSE METER Oneyda Salas PA-C Work Phone: Start: 12-13-2023 End: 12-13-2023 Glucose quantitative blood xcpt reagent strip Victorino Akins MD Work Phone: Start: 12-04-2023 End: 12-04-2023 Glucose quantitative blood xcpt reagent strip Generic Provider Poct Start: 10-12-2023 Glucose quantitative blood xcpt reagent strip Philippe Jones MD Work Phone: Start: 10-12-2023 Glucose quantitative blood xcpt reagent strip Al Jones MD Work Phone: Start: 10-12-2023 POCT GLUCOSE METER Wilfredo Flannery MD Work Phone: Start: 10-12-2023 Glucose quantitative blood xcpt reagent strip Al Jones MD Work Phone: Start: 10-12-2023 POCT GLUCOSE METER Wilfredo Flannery MD Work Phone: Start: 10-12-2023 POCT GLUCOSE METER Wilfredo Flannery MD Work Phone: Start: 10-12-2023 End: 10-12-2023 Comprehensive metabolic panel Jarvis Flannery MD Work Phone: Start: 10-12-2023 Cyclic citrullinated peptide antibody Jarvis Flannery MD Work Phone: Start: 10-12-2023 Manual Differential panel - Blood Jarvis Flannery MD Work Phone: Start: 10-12-2023 End: 10-12-2023 Prothrombin time Jarvis Flannery MD Work Phone: Start: 10-12-2023 POCT GLUCOSE METER Caity Calero MD Work Phone: Start: 10-12-2023 Glucose quantitative blood xcpt reagent strip William Benykola DO Work Phone: Start: 10-12-2023 POCT GLUCOSE METER Buckland cait Calero MD Work Phone: Start: 10-12-2023 Glucose quantitative blood xcpt reagent strip William Max DO Work Phone: Start: 10-12-2023 POCT GLUCOSE METER Caity Calero MD Work Phone: Start: 10-11-2023 POCT GLUCOSE METER Caity Calero MD Work Phone: Start: 10-11-2023 End: 10-11-2023 Glucose quantitative blood xcpt reagent strip William Max DO Work Phone: Start: 10-11-2023 Ct head/brain w/o co ntrast material Jeronimo Calero MD Work Phone: Start: 10-11-2023 End: 10-11-2023 Comprehensive metabolic panel Jeronimo Calero MD Work Phone: Start: 10-11-2023 Manual Differential panel - Blood Jeronimo Calero MD Work Phone: Start: 10-11-2023 Ecg routine ecg w/le ast 12 lds trcg only w/o i&r William Hernandezla DO Work Phone: Start: 08-26-2023 Comprehensive metabo lic panel Scar Seymour BACTERIOLOGIST DAIRY - PATTERN CARRIER Work Phone: Start: 08-26-2023 Culture bacterial quanttative colony count urine Scar Katherineenthal BACTERIOLOGIST DAIRY - PATTERN CARRIER Work Phone: Start: 08-26-2023 Lipid panel Scar Br identhal BACTERIOLOGIST DAIRY - PATTERN CARRIER Work Phone: Start: 08-26-2023 Urnls dip stick/tabl et rgnt non-auto w/o micrscp Scar Hortensiaal BACTERIOLOGIST DAIRY - PATTERN CARRIER Work Phone: Start: 08-26-2023 Lipid 1996 panel - S ariana or Plasma Scar Seymour BACTERIOLOGIST DAIRY - PATTERN CARRIER Work Phone: Start: 05-16-2023 Assay of troponin quantitative Mariana Snow MD Work Phone: Start: 05-16-2023 Radiologic exam ches t single view Mariana Snow MD Work Phone: Start: 05-16-2023 Basic metabolic pane l calcium total Mariana Snow MD Work Phone: Start: 05-16-2023 Manual differential performed [Presence] in Blood Mariana Snow MD Work Phone: Start: 05-16-2023 Ecg routine ecg w/le ast 12 lds i&r only Mariana Snow MD Work Phone: Start: 03-15-2023 Ct cervical spine w/ o contrast material Yogesh Dodson MD Work Phone: Start: 03-15-2023 Ct head/brain w/o co ntrast material Yogesh Dodson MD Work Phone: Start: 02-20-2023 Glucose quantitative blood xcpt reagent strip Harry Fay MD Work Phone: Start: 02-20-2023 Glucose quantitative blood xcpt reagent strip Harry Fay MD Work Phone: Start: 02-20-2023 Glucose quantitative blood xcpt reagent strip Harry Fay MD Work Phone: Start: 02-19-2023 Glucose quantitative blood xcpt reagent strip Harry Fay MD Work Phone: Start: 02-19-2023 Glucose quantitative blood xcpt reagent strip Harry Fay MD Work Phone: Start: 02-19-2023 Glucose quantitative blood xcpt reagent strip Harry Fay MD Work Phone: Start: 02-19-2023 Glucose quantitative blood xcpt reagent strip Harry Fay MD Work Phone: Start: 02-19-2023 Glucose quantitative blood xcpt reagent strip Harry Fay MD Work Phone: Start: 02-19-2023 Glucose quantitative blood xcpt reagent strip Mariana Snow MD Work Phone: Start: 02-18-2023 Glucose quantitative blood xcpt reagent strip Mariana Snow MD Work Phone: Start: 02-18-2023 SARS-COV-2, FLU A/B, AND RSV COMBO Mariana Snow MD Work Phone: Start: 02-18-2023 End: 02-18-2023 Comprehensive metabolic panel Mariana Snow MD Work Phone: Start: 02-18-2023 Urnls dip stick/tabl et reagent auto microscopy Mariana Snow MD Work Phone: Start: 02-18-2023 Glucose quantitative blood xcpt reagent strip Mariana Snow MD Work Phone: Start: 02-18-2023 Glucose quantitative blood xcpt reagent strip Mariana Snow MD Work Phone: Start: 02-13-2023 End: 02-13-2023 Basic metabolic panel calcium total Nelson Grady MD Work Phone: Start: 02-13-2023 POCT GLUCOSE METER Messi Grady MD Work Phone: Start: 02-13-2023 Radiologic exam ches t single view Nelson Grady MD Work Phone: Start: 02-13-2023 Ecg routine ecg w/le ast 12 lds trcg only w/o i&r Nelson Grady MD Work Phone: Start: 02-06-2023 Radiologic exam knee complete 4/more views Izabela Noyola DO Work Phone: Start: 05-20-2022 Plain x-ray of wrist Dr Sim Peña Work Phone: Start: 05-20-2022 Plain x-ray of hand Dr. Rik Peña Work Phone: Start: 04-07-[address] Rik sherman Work Phone: Start: 03-31-2022 Cardiovascular stres s test using pharmacologic stress agent Dr. Rik Peña Work Phone: Start: 03-07-2022 Plain chest X-ray Dr. May Peña Work Phone: Start: 02-09-2022 End: 02-09-2022 Screening mammography Start: 04-16-2021 Lipid 1996 panel - S ariana or Plasma Catarino Claude TY Work Phone: Start: 06-14-2020 Radiologic exam ches t 2 views Naldo Ramos Work Phone: Start: 06-14-2020 Blood count complete automated Naldo Ramos Work Phone: Start: 06-14-2020 Fibrin dgradj produc ts d-dimer quantitative Naldo Ramos Work Phone: Start: 04-20-2020 Creatinine other source Dyllan Collins Work Phone: Start: 04-20-2020 Protein total xcpt refractometry urine Dyllan Collins Work Phone: Start: 04-20-2020 Assay of blood/uric acid Dyllan Collins Work Phone: Start: 04-20-2020 Renal function panel In alisia Collins Work Phone: Start: 04-04-2020 Assay of troponin quantitative Bruna Maya Work Phone: Start: 04-04-2020 Radiologic exam ches t single view Brunapedro luis Maya Work Phone: Start: 04-04-2020 Assay of troponin quantitative Bruna Maya Work Phone: Start: 04-04-2020 Basic metabolic pane l calcium total Brunapedro luis Maya Work Phone: Start: 04-04-2020 Blood count complete auto&auto difrntl wbc Bruna Maya Work Phone: Start: 02-07-2020 Screening digital br [place] tomos[employer] bi See Ricketts Work Phone: Start: 01-23-2020 Assay of blood/uric acid Dyllan Collins Work Phone: Start: 10-12-2019 Creatinine other source Dyllan Collins Work Phone: Start: 10-12-2019 Protein total xcpt refractometry urine Dyllan Collins Work Phone: Start: 10-12-2019 Renal function panel Ma alisia Collins Work Phone: Start: 09-09-2011 Colonoscopy Mariana lara MD Work Phone: Plan of Treatment Date Care Activity Detail Author Start: 2042 RSV Immunization for Adults (1 - 1-dose 75+ series) RSV Immunization for Adults (1 - 1-dose 75+ series) [facility] Start: 2027 RSV Immunization aged 60 or older (1 - 1-dose 60+ series) RSV Immunization aged 60 or older (1 - 1-dose 60+ series) [facility] Start: 04-19-2026 DTaP/Tdap/Td vaccine (2 - Td) DTaP/Tdap/Td vaccine (2 - Td) [place] Start: 04-19-2026 DTaP/Tdap/Td Vaccines (2 - Td or Tdap) DTaP/Tdap/Td Vaccines (2 - Td or Tdap) [facility] Start: 09-27-2025 Diabetes: Estimated Glomerular Filtration Rate for Kidney Health Diabetes: Estimated Glomerular Filtration Rate for Kidney Health [facility] Start: 08-31-2025 Lipid panel Lipid Panel [facility] Start: 08-01-2025 Diabetes: Estimated Glomerular Filtration Rate for Kidney Health Diabetes: Estimated Glomerular Filtration Rate for Kidney Health [facility] Start: 08-01-2025 Diabetes: Urine Albumin-Creatinine Ratio for Kidney Health Diabetes: Urine Albumin-Creatinine Ratio for Kidney Health [facility] Start: 08-01-2025 Diabetic foot examination Diabetes: Foot Exam [facility] Start: 08-01-2025 Glaucoma screening Diabetes: Retinopathy Screening [facility] Comment on above: Postponed from 1977 (Patient Refus ed) Start: 08-01-2025 Hemoglobin A1c measurement Diabetes: Hemoglobin A1C [facility] Start: 08-01-2025 Lipid panel Lipid Panel [facility] Start: 08-01-2025 Screening for malignant neoplasm of cervix Cervical Cancer Screening [facility] Comment on above: Postponed from 1997 (Patient Refus ed) Start: 08-01-2025 Screening for malignant neoplasm of colon Colorectal Cancer Screening [facility] Comment on above: Postponed from 1967 (Patient Refus ed) Start: 03-12-2025 Influenza vaccination Influenza Vaccine (Season Ended) [facility] Start: 02-18-2025 Diabetes: Estimated Glomerular Filtration Rate for Kidney Health Diabetes: Estimated Glomerular Filtration Rate for Kidney Health [facility] Start: 01-29-2025 Depression Monitoring Depression Monitoring [facility] Start: 01-09-2025 End: 01-09-2025 Patient encounter procedure 01/09/2025 8:00 AM EDT Office Visit [facility] [address] [place] [address] Scar Seymour, BACTERIOLOGIST DAIRY - PATTERN CARRIER [address] [place] [address] [facility] Start: 01-08-2025 Influenza vaccination Influenza Vaccine (#1) [facility] Comment on above: Postponed from 03/12/2024 (Patient Refus ed) Start: 12-18-2024 ambulatory Ambulatory Facility:[facility] Start: 11-10-2024 Diabetes: Estimated Glomerular Filtration Rate for Kidney Health Diabetes: Estimated Glomerular Filtration Rate for Kidney Health [facility] Start: 10-24-2024 End: 10-24-2024 Patient encounter procedure 10/24/2024 7:20 AM EDT Office Visit [facility] [address] [place] [address] BridenthScar mendoza, BACTERIOLOGIST DAIRY - PATTERN CARRIER [address] [place] [address] [facility] Start: 09-02-2024 End: 08-02-2025 Alanine aminotransferase [Enzymatic activity/volume] in Serum or Plasma ALT Lab Routine Hyperlipidemia LDL goal <70 Expected: 09/02/2024 (Approximate), Expires: 08/02/2025 [facility] Work Phone: Comment on above: Expected: 09/02/2024 (Approximate), Expi res: 08/02/2025 Start: 09-02-2024 End: 08-02-2025 Aspartate aminotransferase [Enzymatic activity/volume] in Serum or Plasma AST Lab Routine Hyperlipidemia LDL goal <70 Expected: 09/02/2024 (Approximate), Expires: 08/02/2025 [facility] Comment on above: Expected: 09/02/2024 (Approximate), Expi res: 08/02/2025 Start: 09-02-2024 End: 08-02-2025 Lipid 1996 panel - Serum or Plasma Lipid panel Lab Routine Hyperlipidemia LDL goal <70 Expected: 09/02/2024 (Approximate), Expires: 08/02/2025 [facility] Comment on above: Expected: 09/02/2024 (Approximate), Expi res: 08/02/2025 Start: 08-31-2024 End: 08-31-2024 Clinical Support 08/31/2024 7:00 AM EST Clinical Support [address] [address] [facility] Start: 08-26-2024 Hemoglobin A1c measurement Diabetes: Hemoglobin A1C [facility] Start: 08-26-2024 Lipid panel Lipid Panel [facility] Start: 08-01-2024 End: 07-31-2025 CBC panel - Blood by Automated count CBC Lab Routine Pancytopenia (HCC) Expected: 08/01/2024 (Approximate), Expires: 07/31/2025 [facility] Comment on above: Expected: 08/01/2024 (Approximate), Expi res: 07/31/2025 Start: 08-01-2024 End: 07-31-2025 Comprehensive metabolic 1998 panel - Serum or Plasma Comprehensive metabolic panel Lab Routine Type 2 diabetes with nephropathy (HCC) Expected: 08/01/2024 (Approximate), Expires: 07/31/2025 [facility] Comment on above: Expected: 08/01/2024 (Approximate), Expi res: 07/31/2025 Start: 08-01-2024 End: 09-28-2025 DBT Breast - bilateral screening Bilateral screening mammogram with tomosynthesis Imaging Routine Encounter for screening mammogram for malignant neoplasm of breast Expected: 08/01/2024, Expires: 09/28/2025 [facility] Comment on above: Expected: 08/01/2024, Expires: Start: 08-01-2024 End: 07-31-2025 Hemoglobin A1c measurement Hemoglobin A1c Lab Routine Type 2 diabetes with nephropathy (HCC) Expected: 08/01/2024 (Approximate), Expires: 07/31/2025 [facility] Comment on above: Expected: 08/01/2024 (Approximate), Expi res: 07/31/2025 Start: 08-01-2024 End: 07-31-2025 Lipid 1996 panel - Serum or Plasma Lipid panel Lab Routine Hyperlipidemia LDL goal <70 Expected: 08/01/2024 (Approximate), Expires: 07/31/2025 [facility] Comment on above: Expected: 08/01/2024 (Approximate), Expi res: 07/31/2025 Start: 08-01-2024 End: 07-31-2025 Microalbumin/Creatinine panel in random Urine Microalbumin / creatinine, urine ratio Lab Routine Type 2 diabetes with nephropathy (HCC) Expected: 08/01/2024 (Approximate), Expires: 07/31/2025 [facility] Work Phone: Comment on above: Expected: 08/01/2024 (Approximate), Expi res: 07/31/2025 Start: 05-13-2024 Glaucoma screening Diabetes: Retinopathy Screening [facility] Comment on above: Postponed from 1977 (Other Patient Reasons) Start: 05-13-2024 Screening for malignant neoplasm of cervix Cervical Cancer Screening [facility] Comment on above: Postponed from 1997 (Other Patient Reasons) Start: 05-12-2024 Screening for malignant neoplasm of colon Colorectal Cancer Screening [facility] Comment on above: Postponed from 1967 (Other Patient Reasons) Start: 04-12-2024 End: 04-12-2024 Patient encounter procedure [facility] Start: 03-12-2024 Influenza vaccination [facility] Start: 02-24-2024 Depression Monitoring Depression Monitoring [facility] Start: 02-24-2024 Depresssion Monitoring Depresssion Monitoring [facility] Start: 02-23-2024 Hemoglobin A1c measurement Diabetes: Hemoglobin A1C [facility] Start: 12-24-2023 End: 12-24-2023 Patient encounter procedure 12/24/2023 7:00 AM EDT Office Visit [facility] [address] [place] [address] Bridenthal Scar, BACTERIOLOGIST DAIRY - PATTERN CARRIER [address] [place] [address] [place] [address] [facility] Start: 12-10-2023 Diabetic foot examination Diabetes: Foot Exam [facility] Start: 12-02-2023 End: 12-02-2023 Patient encounter procedure 12/02/2023 8:00 AM EDT Office Visit [facility] [address] [place] [address] [place] [address] Bridenthal Scar, BACTERIOLOGIST DAIRY - PATTERN CARRIER [address] [place] [address] [place] [address] [facility] Start: 11-25-2023 End: 11-25-2023 Patient encounter procedure 11/25/2023 8:00 AM EDT Office Visit [facility] [address] [place] [address] [place] [address] Bridenthal, Scar, BACTERIOLOGIST DAIRY - PATTERN CARRIER [address] [facility] [place] [address] [place] [address] [facility] Start: 11-11-2023 End: 11-10-2024 Basic metabolic 1998 panel - Serum or Plasma Basic metabolic panel Lab Routine Hyponatremia Expected: 11/11/2023 (Approximate), Expires: 11/10/2024 [facility] Work Phone: Comment on above: Expected: 11/11/2023 (Approximate), Expi res: 11/10/2024 Start: 11-11-2023 End: 11-11-2023 Patient encounter procedure 11/11/2023 7:20 AM EDT Office Visit [facility] [address] [place] [address] [place] [address] Scar Seymour, BACTERIOLOGIST DAIRY - PATTERN CARRIER [address] [place] [address] [place] [address] [facility] Start: 10-13-2023 End: 10-13-2023 Patient encounter procedure 10/13/2023 11:00 AM EDT Office Visit [facility] [address] [place] [phone] Angel Juan MD [address] [place] [address] [facility] Start: 09-30-2023 End: 09-30-2023 Patient encounter procedure 09/30/2023 8:30 AM EDT Appointment [facility] [address] [facility] [place] [phone] Angel Juan MD [address] [place] [address] [facility] Start: 09-29-2023 End: 09-21-2024 CBC W Auto Differential panel - Blood CBC auto differential Lab Routine Pancytopenia (HCC) Expected: 09/29/2023 (Approximate), Expires: 09/21/2024 [facility] Work Phone: Comment on above: Expected: 09/29/2023 (Approximate), Expi res: 09/21/2024 Start: 09-29-2023 End: 09-21-2024 Lactate dehydrogenase [Enzymatic activity/volume] in Serum or Plasma by Lactate to pyruvate reaction Lactate dehydrogenase Lab Routine Pancytopenia (HCC) Expected: 09/29/2023 (Approximate), Expires: 09/21/2024 [facility] Comment on above: Expected: 09/29/2023 (Approximate), Expi res: 09/21/2024 Start: 09-22-2023 End: 09-21-2024 Cobalamin (Vitamin B12) [Mass/volume] in Serum or Plasma Vitamin B12 Lab Routine Pancytopenia (HCC) Expected: 09/22/2023 (Approximate), Expires: 09/21/2024 [facility] Comment on above: Expected: 09/22/2023 (Approximate), Expi res: 09/21/2024 Start: 09-22-2023 End: 09-21-2024 Comprehensive metabolic 1998 panel - Serum or Plasma Comprehensive metabolic panel Lab Routine Pancytopenia (HCC) Expected: 09/22/2023 (Approximate), Expires: 09/21/2024 [facility] Comment on above: Expected: 09/22/2023 (Approximate), Expi res: 09/21/2024 Start: 09-22-2023 End: 09-21-2024 Copper, serum Copper, serum Lab Routine Pancytopenia (HCC) Expected: 09/22/2023 (Approximate), Expires: 09/21/2024 [facility] Comment on above: Expected: 09/22/2023 (Approximate), Expi res: 09/21/2024 Start: 09-22-2023 End: 09-21-2024 Ferritin [Mass/volume] in Serum or Plasma Ferritin Lab Routine Pancytopenia (HCC) Expected: 09/22/2023 (Approximate), Expires: 09/21/2024 [facility] Comment on above: Expected: 09/22/2023 (Approximate), Expi res: 09/21/2024 Start: 09-22-2023 End: 09-21-2024 Folate [Mass/volume] in Serum or Plasma Folate Lab Routine Pancytopenia (HCC) Expected: 09/22/2023 (Approximate), Expires: 09/21/2024 [facility] Comment on above: Expected: 09/22/2023 (Approximate), Expi res: 09/21/2024 Start: 09-22-2023 End: 09-21-2024 Homocysteine, serum Homocysteine, serum Lab Routine Pancytopenia (HCC) Expected: 09/22/2023 (Approximate), Expires: 09/21/2024 [facility] Comment on above: Expected: 09/22/2023 (Approximate), Expi res: 09/21/2024 Start: 09-22-2023 End: 09-21-2024 Immunofixation Electrophoresis Immunofixation Electrophoresis Lab Routine Pancytopenia (HCC) Expected: 09/22/2023 (Approximate), Expires: 09/21/2024 [facility] Comment on above: Expected: 09/22/2023 (Approximate), Expi res: 09/21/2024 Start: 09-22-2023 End: 09-21-2024 Iron and Iron binding capacity panel - Serum or Plasma Iron and TIBC Lab Routine Pancytopenia (HCC) Expected: 09/22/2023 (Approximate), Expires: 09/21/2024 [facility] Comment on above: Expected: 09/22/2023 (Approximate), Expi res: 09/21/2024 Start: 09-22-2023 End: 09-21-2024 Methylmalonate [Moles/volume] in Serum or Plasma Methylmalonic acid, serum Lab Routine Pancytopenia (HCC) Expected: 09/22/2023 (Approximate), Expires: 09/21/2024 [facility] Comment on above: Expected: 09/22/2023 (Approximate), Expi res: 09/21/2024 Start: 09-22-2023 End: 09-21-2024 Protein, Total and Protein Electrophoresis Protein, Total and Protein Electrophoresis Lab Routine Pancytopenia (HCC) Expected: 09/22/2023 (Approximate), Expires: 09/21/2024 [facility] Comment on above: Expected: 09/22/2023 (Approximate), Expi res: 09/21/2024 Start: 09-22-2023 End: 09-21-2024 Reticulocytes panel - Blood Reticulocytes Lab Routine Pancytopenia (HCC) Expected: 09/22/2023 (Approximate), Expires: 09/21/2024 [facility] Comment on above: Expected: 09/22/2023 (Approximate), Expi res: 09/21/2024 Start: 09-22-2023 End: 09-21-2024 US Abdomen US abdomen complete Imaging Routine Pancytopenia (HCC) Expected: 09/22/2023, Expires: 09/21/2024 [facility] Comment on above: Expected: 09/22/2023, Expires: Start: 09-22-2023 End: 09-22-2023 Patient encounter procedure 09/22/2023 9:15 AM EDT Office Visit [facility] [address] [place] [phone] Angel Juan MD [address] [facility] [address] [place] [address] [facility] Start: 08-26-2023 End: 08-26-2024 Bacteria identified in Urine by Culture Urine culture (clean catch) Microbiology Routine Urinary tract infection symptoms Expected: 08/26/2023 (Approximate), Expires: 08/26/2024 [facility] Comment on above: Expected: 08/26/2023 (Approximate), Expi res: 08/26/2024 Start: 08-26-2023 End: 08-26-2024 CBC panel - Blood by Automated count CBC Lab Routine Lymphopenia Expected: 08/26/2023 (Approximate), Expires: 08/26/2024 [facility] Comment on above: Expected: 08/26/2023 (Approximate), Expi res: 08/26/2024 Start: 08-26-2023 End: 08-26-2024 Comprehensive metabolic 1998 panel - Serum or Plasma Comprehensive metabolic panel Lab Routine Type 2 diabetes mellitus with polyneuropathy (HCC) Essential hypertension Expected: 08/26/2023 (Approximate), Expires: 08/26/2024 [facility] Work Phone: Comment on above: Expected: 08/26/2023 (Approximate), Expi res: 08/26/2024 Start: 08-26-2023 End: 10-24-2024 DBT Breast - bilateral screening Bilateral screening mammogram with tomosynthesis Imaging Routine Encounter for screening mammogram for malignant neoplasm of breast Expected: 08/26/2023, Expires: 10/24/2024 [facility] Comment on above: Expected: 08/26/2023, Expires: Start: 08-26-2023 End: 08-26-2024 Hemoglobin A1c measurement Hemoglobin A1c Lab Routine Type 2 diabetes mellitus with polyneuropathy (HCC) Expected: 08/26/2023 (Approximate), Expires: 08/26/2024 [facility] Comment on above: Expected: 08/26/2023 (Approximate), Expi res: 08/26/2024 Start: 08-26-2023 End: 08-26-2024 Lipid 1996 panel - Serum or Plasma Lipid panel Lab Routine Hyperlipidemia LDL goal <70 Expected: 08/26/2023 (Approximate), Expires: 08/26/2024 [facility] Comment on above: Expected: 08/26/2023 (Approximate), Expi res: 08/26/2024 Start: 08-26-2023 End: 08-26-2024 Microalbumin/Creatinine panel in random Urine Microalbumin / creatinine, urine ratio Lab Routine Type 2 diabetes mellitus with polyneuropathy (HCC) Expected: 08/26/2023 (Approximate), Expires: 08/26/2024 [facility] Comment on above: Expected: 08/26/2023 (Approximate), Expi res: 08/26/2024 Start: 08-20-2023 End: 08-20-2023 Patient encounter procedure 08/20/2023 10:30 AM EST Office Visit [address] [address] See Ricketts MD [address] [place] [address] [facility] Start: 03-12-2023 COVID-19 Vaccine () COVID-19 Vaccine () [facility] Start: 03-12-2023 Influenza vaccination Influenza Vaccine (#1) [facility] Start: 02-22-2023 End: 02-17-2024 CBC W Auto Differential panel - Blood CBC auto differential Lab Routine Lymphopenia Thrombocytopenia (HCC) Expected: 02/22/2023 (Approximate), Expires: 02/17/2024 [facility] Work Phone: Comment on above: Expected: 02/22/2023 (Approximate), Expi res: 02/17/2024 Start: 02-22-2023 End: 02-17-2024 Hemoglobin A1c/Hemoglobin.total in Blood Hemoglobin A1c Lab Routine Type 2 diabetes mellitus with polyneuropathy (HCC) Expected: 02/22/2023 (Approximate), Expires: 02/17/2024 [facility] Comment on above: Expected: 02/22/2023 (Approximate), Expi res: 02/17/2024 Start: 02-22-2023 End: 02-17-2024 Peripheral blood smear Peripheral blood smear Pathology and Cytology Routine Lymphopenia Expected: 02/22/2023 (Approximate), Expires: 02/17/2024 [facility] Comment on above: Expected: 02/22/2023 (Approximate), Expi res: 02/17/2024 Start: 02-22-2023 End: 02-22-2023 Clinical Support 02/22/2023 10:00 AM EDT Clinical Support [facility] [address] [place] [address] [facility] Start: 02-09-2023 Screening for malignant neoplasm of breast Mammogram [facility] Start: 12-23-2022 End: 12-23-2022 Patient encounter procedure 12/23/2022 Office Visit Family Medicine Scar Seymour, BACTERIOLOGIST DAIRY - PATTERN CARRIER [address] [place] [address] [facility] Start: 12-09-2022 End: 12-10-2023 Microalbumin/Creatinine panel in random Urine Microalbumin / creatinine urine ratio Lab Routine Type 2 diabetes mellitus with polyneuropathy (HCC) Expected: 12/09/2022 (Approximate), Expires: 12/10/2023 [facility] Work Phone: Comment on above: Expected: 12/09/2022 (Approximate), Expi res: 12/10/2023 Start: 12-09-2022 End: 12-09-2022 Patient encounter procedure 12/09/2022 Office Visit Family Medicine Scar Seymour, BACTERIOLOGIST DAIRY - PATTERN CARRIER [address] [facility] [place] [address] [facility] Start: 04-16-2022 Diabetes: Urine Albumin-Creatinine Ratio for Kidney Health Diabetes: Urine Albumin-Creatinine Ratio for Kidney Health [facility] Start: 04-16-2022 Lipid panel Lipid Panel [facility] Start: 04-16-2022 Urine screening for protein Diabetes: Urine Protein Screening [facility] Start: 03-31-2022 Hemoglobin A1c measurement Diabetes: Hemoglobin A1C [facility] Start: 03-07-[address] [facility] Work Phone: Start: 02-06-2022 Screening for malignant neoplasm of breast Breast cancer screen [facility] [place] Start: 01-01-2022 COVID-19 Vaccine (3 - Booster for Pfizer series) COVID-19 Vaccine (3 - Booster for Pfizer series) [facility] Start: 01-01-2022 COVID-19 Vaccine (3 - Pfizer series) COVID-19 Vaccine (3 - Pfizer series) [facility] Start: 09-08-2021 Colon cancer screen colonoscopy Colon cancer screen colonoscopy [place], [place] Start: 09-08-2021 Screening for malignant neoplasm of colon [facility] Start: 07-10-2021 Diabetic retinal exam Diabetic retinal exam [place] Start: 06-30-2021 Hemoglobin A1c measurement Diabetes: Hemoglobin A1C [facility] Start: 04-20-2021 [facility]inine [facility] [place] [place] Start: 04-20-2021 Potassium monitoring Potassium monitoring [facility] Start: 02-18-2021 Cervical cancer screen Cervical cancer screen [place], [place] Start: 02-18-2021 Screening for malignant neoplasm of cervix Cervical cancer screen [place] Start: 01-14-2021 Creatinine measurement [facility] [place] [place] Start: 01-14-2021 Diabetic foot examination Diabetic foot exam [place] Start: 01-14-2021 HbA1c (Bld) [Mass fraction] A1C test (Diabetic or Prediabetic) [place] Start: 01-14-2021 Lipid panel Lipid screen [place] Start: 01-14-2021 Potassium monitoring Potassium monitoring [place] Start: 01-10-2021 Hepatitis B vaccine (1 of 3 - Risk 3-dose series) Hepatitis B vaccine (1 of 3 - Risk 3-dose series) [place] Comment on above: Postponed from 1986 (Patient Refus ed) Start: 01-10-2021 Pneumococcal 0-64 years Vaccine (1 of 1 - PPSV23) Pneumococcal 0-64 years Vaccine (1 of 1 - PPSV23) [place] Comment on above: Postponed from 1973 (Patient Refus ed) Start: 08-19-2020 End: 08-19-2020 Office Visit 08/19/2020 Office Visit Endocrinology Alverto Orta DO [address] [place], [place] [address] Endocrinology [facility] Start: 08-13-2020 HbA1c (Bld) [Mass fraction] A1C test (Diabetic or Prediabetic) [place] Start: 07-16-2020 End: 07-16-2020 Office Visit 07/16/2020 Office Visit Family Medicine See Ricketts MD [address] [place] [address], [place] [address] [phone] [facility] Start: 07-14-2020 A1C test (Diabetic or Prediabetic) A1C test (Diabetic or Prediabetic) [place] Start: 07-14-2020 Creatinine monitoring Creatinine monitoring [place] Start: 07-14-2020 Potassium monitoring Potassium monitoring [place] Start: 05-13-2020 End: 05-13-2020 Office Visit Endocrinology LM Start: 04-20-2020 Breast cancer screen Breast cancer screen [place] Start: 04-20-2020 Screening for malignant neoplasm of breast Breast cancer screen [place] Start: 04-13-2020 [object Object] Diabetic foot exam [place] Start: 04-13-2020 Lipid screen Lipid screen [place] Start: 03-12-2020 Influenza vaccination Flu vaccine (#1) [place] Start: 02-11-2020 HIV screen HIV screen [place] Comment on above: Postponed from 1982 (Patient Refus ed) Start: 02-11-2020 HIV screening HIV screen [place] Comment on above: Postponed from 1982 (Patient Refus ed) Start: 02-11-2020 Shingles Vaccine (1 of 2) Shingles Vaccine (1 of 2) [place] Comment on above: Postponed from 2017 (Patient Refus ed) Start: 02-07-2020 End: 02-07-2020 Appointment 02/07/2020 Appointment Radiology See Ricketts MD [address] [place] [address], [place] [address] [phone] [facility] Start: 01-15-2020 End: 01-15-2020 Office Visit [facility] Start: 12-24-2019 Hepatitis B vaccine (1 of 3 - Risk 3-dose series) Hepatitis B vaccine (1 of 3 - Risk 3-dose series) [place] Comment on above: Postponed from 1986 (Patient Refus ed) Start: 10-13-2019 Pneumococcal 0-64 years Vaccine (1 of 1 - PPSV23) Pneumococcal 0-64 years Vaccine (1 of 1 - PPSV23) [place] Comment on above: Postponed from 1973 (Patient Refus ed) Start: 2017 Shingles Vaccine (1 of 2) Shingles Vaccine (1 of 2) [place] Start: 2017 Zoster Vaccines (1 of 2) Zoster Vaccines (1 of 2) [facility] Start: 1997 Screening for malignant neoplasm of cervix [facility] Start: 1988 Screening for malignant neoplasm of cervix Pap Smear [facility] Start: 1986 Hepatitis A Vaccines (1 of 2 - Risk 2-dose series) Hepatitis A Vaccines (1 of 2 - Risk 2-dose series) [facility] Start: 1986 Hepatitis B Vaccines (1 of 3 - 19+ 3-dose series) Hepatitis B Vaccines (1 of 3 - 19+ 3-dose series) [facility] Start: 1986 Pneumococcal Vaccine: 50+ Years (1 of 2 - PCV) Pneumococcal Vaccine: 50+ Years (1 of 2 - PCV) [facility] Start: 1985 Hepatitis C screening Hepatitis C Screening [facility] Start: 1982 HIV screening HIV screen [place] Start: 1979 Depresssion Monitoring Depresssion Monitoring [facility] Start: 1977 Diabetic foot examination Diabetes: Foot Exam [facility] Start: 1977 Glaucoma screening Diabetes: Retinopathy Screening [facility] Start: 1977 Preventive dental service Diabetes: Dental Exam [facility] Start: 1973 Pneumococcal Vaccine: Pediatrics (0 to 5 Years) and At-Risk Patients (6 to 64 Years) (1 - PCV) Pneumococcal Vaccine: Pediatrics (0 to 5 Years) and At-Risk Patients (6 to 64 Years) (1 - PCV) [facility] Start: 1973 Pneumococcal Vaccine: Pediatrics (0 to 5 Years) and At-Risk Patients (6 to 64 Years) (1 of 2 - PCV) Pneumococcal Vaccine: Pediatrics (0 to 5 Years) and At-Risk Patients (6 to 64 Years) (1 of 2 - PCV) [facility] Start: 1968 MMR Vaccines (1 of 1 - Standard series) MMR Vaccines (1 of 1 - Standard series) [facility] Start: 1967 Hepatitis B Vaccines (1 of 3 - 3-dose series) Hepatitis B Vaccines (1 of 3 - 3-dose series) [facility] Start: 1967 HIV screening HIV Screening [facility] Start: 1967 Screening for malignant neoplasm of colon [facility] Copper, serum Copper, serum La b Routine Pancytopenia (HCC) 09/30/2023 8:27 AM EDT [facility] ECG 12 lead ECG 12 lead CV E CG STAT 02/13/2023 7:54 PM EDT [facility] Work Phone: EKG 12 Lead - Chest Pain EKG 12 Lead - Chest Pain ECG STAT 04/04/2020 3:37 PM EDT [facility] [place] [place] IgG, IgA, IgM IgG, IgA, IgM La b Routine Pancytopenia (HCC) Ordered: 09/22/2023 [facility] Comment on above: Ordered: 09/22/2023 Immunofixation Electrophoresis Immunofixation Electrophoresis Lab Routine Pancytopenia (HCC) Ordered: 09/22/2023 [facility] Comment on above: Ordered: 09/22/2023 Immunofixation Electrophoresis Immunofixation Electrophoresis Lab Routine Pancytopenia (HCC) 09/30/2023 8:27 AM EDT [facility] Methylmalonate [Moles/volume] in Serum or Plasma Methylmalonic acid, serum Lab Routine Pancytopenia (HCC) 09/30/2023 8:27 AM EDT [facility] OUTSIDE PROCEDURE SCAN OUTSIDE P ROCEDURE SCAN Procedures Ordered: 09/29/2023 [facility] Comment on above: Ordered: 09/29/2023 Patient Education ED Chest Pain, Uncertain Cause [facility] Work Phone: Patient referral [facility] Work Phone: Protein [Mass/volume ] in Serum or Plasma Protein, total Lab Routine Pancytopenia (HCC) Ordered: 09/22/2023 [facility] Comment on above: Ordered: 09/22/2023 Protein, Total and Protein Electrophoresis Protein, Total and Protein Electrophoresis Lab Routine Pancytopenia (HCC) 09/30/2023 8:27 AM T [facility] Serum Electrophoresis Serum Elec trophoresis Lab Routine Pancytopenia (HCC) Ordered: 09/22/2023 [facility] Comment on above: Ordered: 09/22/2023 End: 09-30-2023 US Abdomen [facility] Comment on above: Once for 1 Occurrences starting 09/30/19 until 09/30/2023 Immunizations Immunization Date Immunization Notes Care Provider Michael madrigal 05-21-2022 influenza, injectabl e, quadrivalent, preservative free Scartuyet Seymour BACTERIOLOGIST DAIRY - PATTERN CARRIER Work Phone: [facility] [employer] 05-21-2022 influenza virus vaccine, unspecified formulation See Ricketts MD Work Phone: [facility] [employer] 11-06-2021 Covid-19, Pfizer Gra y Top, Do Not Dilute, (Age 12 Y+), Im, L Scar Bridenthal BACTERIOLOGIST DAIRY - PATTERN CARRIER Work Phone: [facility] 06-30-2021 Covid (Pfizer) [facility] Work Phone: 06-09-2021 Covid (Pfizer) [facility] Work Phone: 04-25-2021 influenza, injectabl e, quadrivalent, preservative free Scar Bridenthal BACTERIOLOGIST DAIRY - PATTERN CARRIER Work Phone: [facility] 04-08-2020 influenza, injectabl e, quadrivalent, contains preservative [facility] 07-14-2019 influenza, injectabl e, quadrivalent, contains preservative [facility] 04-13-2018 influenza virus vaccine, unspecified formulation [facility] 04-16-2017 influenza virus vaccine, unspecified formulation [facility] 05-06-2016 Influenza Vaccine, unspecified formulation [facility] [place] 05-06-2016 influenza, seasonal, injectable Scar Bridenthal BACTERIOLOGIST DAIRY - PATTERN CARRIER Work Phone: [facility] 04-19-2016 tetanus toxoid, reduced diphtheria toxoid, and acellular pertussis vaccine, adsorbed [facility], [place] 04-20-2015 influenza virus vaccine, whole virus [facility] 04-19-2014 influenza virus vaccine, unspecified formulation [facility] Payers Date Payer Category Payer Self-pay [id number] 2023 [facility] - [facility] [id number] 2023 Unknown [id number] 2023 Private Health Insurance [facility] norbert [id number] 2023 Unknown 2022 Medicaid [employer] [employer] [place] [id number] 2022-Present [phone] [address] [place] [address] Medicaid HMO [id number] 2020 Unknown [id number] 2018 Private Health Insurance [facility] xxxxxxxxx 2018-Present [phone] [address] [place] [address] xxxxxxxxx [id number] 2018 Private Health Insurance [facility] [id number] 2018-Present [phone] [address] [place] [address] [id number] 2018 Private Health Insurance [id number] 1967 Unknown [id number] 668 Unknown [facility] [id number] Unknown [id number] 462 Unknown [id number]. 462 Unknown [id number]. 462 Unknown [id number] [id number]. 462 Unknown [id number]. 462 Unknown [id number]. 462 Unknown [id number]. 462 Unknown [id number] [id number]. 462 Unknown [id number]. 462 Unknown [id number]. 462 Unknown [id number]. 462 Unknown [id number]. 462 Unknown [id number] 462 Social History Date Type Detail Facility Start: 08-08-2019 End: 08-01-2024 Tobacco smoking status NHIS Former smoker [facility] End: 09-01-2013 History of tobacco use Current smoker [place] Start: 08-08-2019 End: 08-01-2024 Cigarettes smoked current (pack per day) - Reported [facility] Start: 08-08-2019 Alcohol intake Current non-drinker of alcohol (finding) [place] Start: 1965 Sex Assigned At Female [place] Exposure to SARS-CoV -2 (event) Unable to assess [place] Start: 01-15-2020 End: 08-01-2024 Tobacco use and exposure Never used [facility], [facility] Start: 01-15-2020 End: 10-24-2024 Alcohol intake Ex-drinker (finding) [facility] Start: 01-11-2020 End: 12-07-2022 History SDOH Alcohol Frequency 1 [employer] [facility] Start: 01-11-2020 History SDOH Financial 5 [employer] [facility] Start: 01-11-2020 History SDOH Transport Med 2 [facility] [facility]ANEY Start: 11-27-2022 End: 03-15-2023 Exposure to SARS-CoV-2 (event) Not sure [employer] [facility] Exposure to SARS-CoV -2 (event) Yes [facility] Start: 06-05-2021 End: 04-08-2022 Tobacco smoking status NHIS Unknown if ever smoked [facility] Work Phone: Start: 08-06-2020 Cigarettes;Cigars [facility] Work Phone: End: 09-01-2013 History of tobacco use Cigarette Smoker [facility] [employer] Start: 12-07-2022 History SDOH Alcohol Std Drinks 0 [employer] Start: 12-07-2022 End: 08-01-2024 Alcohol Use Disorder Identification Test - Consumption [AUDIT-C] [facility] How often to you hav e a drink containing alcohol? Never [facility] How many standard dr inks containing alcohol do you have on a typical day? Patient does not drink [facility] [employer] How hard is it for y ou to pay for the very basics like food, housing, medical care, and heating Very hard [facility] [employer] Start: 04-30-2022 Gender identity Identifies as female gender (finding) [employer] (I/We) worried wheth er (my/our) food would run out before (I/we) got money to buy more. Never true [employer] In the past 12 month s, was there a time when you were not able to pay the mortgage or rent on time? No [employer] Start: 02-09-2022 Sex Female (finding) [facility] [employer] [facility] Procedure Code Equipment Code Equipment Origin al Text Equipment Identifier Dates use as directed three times a day [id number] Start: 08-31-2019 1 each by Does n ot apply route 2 times daily (before meals) [id number] Start: 08-08-2018 1 each by Does n ot apply route 4 times daily [id number] Start: 10-18-2017 1 each by In Vit ro route 4 times daily [id number] Start: 05-17-2020 Unifine Pentips 31G X 8 MM misc [id number] Start: 10-20-2022 End: 08-26-2023 Use as directed with insulin pen [id number] Start: 08-26-2023 End: 05-28-2024 Use as directed with insulin pen [id number] Start: 05-29-2024 End: 08-02-2024 Use as directed with insulin pen [id number] Start: 08-02-2024 Goals Date Patient Goal Desired Activity /State Comment on above: Diabetes Education/ Self- Management Plan: Patient Stated Goal: 7 Goals Discussion/Provider Goal: A1C less than 7, Total Cholesterol less than 199, HDL greater than 40, blood pressure less than 130/80, weight within appropriate range for height, BMI within approprate range, FBS within 70-130 range. Nutrition Discussion: Carb counting discussion, reading food labels education, portion control explanation, and smart snacking discussion addressed. Eye Care Discussion: Encouraged yearly exam. Foot Care Discussion: Encouraged yearly podiatric focused exam. Exercise Discussion: Discussed with patient how physical activity helps manage blood sugar levels better. Encouraged 20-30 minutes of physical activity most days of the week. Barriers to Success: lack of education Plan for Overcoming Barriers: to eat better and seeing a weight institute. Encouraged and recommended by provider. Confidence to Achieve Goal: 04/20 Date Goat Set: 02/18/18 Patient was given education materials on healthy diet and diabetes management- see AVS. Patient received counseling about current lifestyle goal. Advised approximately 150 minutes of cardio, i.e treadmill, exercise in a week. Advised strive for 5 a total 5 servings of fruits and vegetables in a day. Advised a diet lower in carbohydrates and simple sugars. They need to watch consumption of bread, rice, pasta, potatoes, corn, soda, sweetened tea, lemonade, and all other sugar drinks. Patient given after visit summary which includes educational information on Diabetes. Discussed use, benefit, and side effects of prescribed medications and barriers to medication compliance addressed, if applicable. All patient questions answered and patient voiced understanding. Patient was given a copy of this, and was advised to call if any questions. Mental Status Date Assessment Result Facility 03-06-2022 Cognitive function Awake;[facility] Work Phone: Clinical Notes 12-07-2022 to 10-24-2024 Assessment & Plan Note - NICOLE Easley CNP - 10/24/2024 10:01 AM EDTAssessment & Plan Note - NICOLE Easley CNP - 10/24/2024 10:01 AM EDTPatient Instructions Note Date & Type Note Facility 10-24-2024 Evaluation + Plan note Associated Problem(s): Pain management Continue with pain management as directed. [facility] 10-24-2024 Miscellaneous Notes Associated Problem(s): Pain management Continue with pain management as directed. Associated Problem(s): Vitamin B 12 deficiency Continue b12 injections Associated Problem(s): Pancytopenia (HCC) Follow-up with hematology as directed. Associated Problem(s): Major depressive disorder, single episode, unspecified Continue bupropion xl 300 mg and Buspar 10 mg twice daily. Recommend counseling services. Associated Problem(s): Diabetic nephropathy associated with type 2 diabetes mellitus (HCC) Stable. Get diabetes under control. Blood pressures are good Associated Problem(s): Other cirrhosis of liver (HCC) Stable. Follow up with gastroenterology as scheduled Associated Problem(s): Type 2 diabetes mellitus with polyneuropathy (HCC) Poorly controlled. Improved glucose readings from a few weeks ago. Needs to get back on the mounjaro 5 mg weekly, continue metformin 1000 mg, 500 mg , 1000 mg daily, take glimepiride 4 mg in am consistently. Increased lantus from 14 units to 16 units nightly. Send daily glucose readings-fasting and post prandial every 3 days for medication adjustments. Reiterated importance of being consistent with medications in order to get better control of diabetes. Associated Problem(s): Anxiety Stable. Continue Wellbutrin 300 mg daily, BuSpar 10 mg twice daily. Recommend establishing with counselor Associated Problem(s): Essential hypertension Controlled. Blood pressure 124/72. Continue labetalol 100 mg twice daily. Has not tolerated CLAUDY inhibitors in the past, consider ARB Associated Problem(s): Hyperlipidemia LDL goal <70 Controlled. Continue rosuvastatin 5 mg daily Associated Problem(s): Class 3 severe obesity due to excess calories with serious comorbidity and body mass index (BMI) of 40.0 to 44.9 in adult (HCC) Continue portion control, low carb,low fat, low cholesterol diet. Increase physical activity as tolerated. documented in this encounter [facility] 10-24-2024 Evaluation + Plan note Associated Problem(s): Vitamin B 12 deficiency Continue b12 injections [facility] 10-24-2024 Evaluation + Plan note Associated Problem(s): Pancytopenia (HCC) Follow-up with hematology as directed. [facility] 10-24-2024 Evaluation + Plan note Associated Problem(s): Major depressive disorder, single episode, unspecified Continue bupropion xl 300 mg and Buspar 10 mg twice daily. Recommend counseling services. [facility] 10-24-2024 Note Continue bupropion x l 300 mg and Buspar 10 mg twice daily. Recommend counseling services. [facility] 10-24-2024 Evaluation + Plan note Associated Problem(s): Diabetic nephropathy associated with type 2 diabetes mellitus (HCC) Stable. Get diabetes under control. Blood pressures are good [facility] 10-24-2024 Evaluation + Plan note Associated Problem(s): Other cirrhosis of liver (HCC) Stable. Follow up with gastroenterology as scheduled [facility] 10-24-2024 Evaluation + Plan note Associated Problem(s): Type 2 diabetes mellitus with polyneuropathy (HCC) Poorly controlled. Improved glucose readings from a few weeks ago. Needs to get back on the mounjaro 5 mg weekly, continue metformin 1000 mg, 500 mg , 1000 mg daily, take glimepiride 4 mg in am consistently. Increased lantus from 14 units to 16 units nightly. Send daily glucose readings-fasting and post prandial every 3 days for medication adjustments. Reiterated importance of being consistent with medications in order to get better control of diabetes. T [facility] [employer] 10-24-2024 Evaluation + Plan note Associated Problem(s): Anxiety Stable. Continue Wellbutrin 300 mg daily, BuSpar 10 mg twice daily. Recommend establishing with counselor T [facility] 10-24-2024 Evaluation + Plan note Associated Problem(s): Essential hypertension Controlled. Blood pressure 124/72. Continue labetalol 100 mg twice daily. Has not tolerated CLAUDY inhibitors in the past, consider ARB T [facility] 10-24-2024 Evaluation + Plan note Associated Problem(s): Hyperlipidemia LDL goal <70 Controlled. Continue rosuvastatin 5 mg daily T [facility] 10-24-2024 Evaluation + Plan note Associated Problem(s): Class 3 severe obesity due to excess calories with serious comorbidity and body mass index (BMI) of 40.0 to 44.9 in adult (HCC) Continue portion control, low carb,low fat, low cholesterol diet. Increase physical activity as tolerated. [employer] 10-24-2024 History of Present illness Narrative Patient was identified by name and Date of . Health Maintenance Due Topic Mammogram-pended Images from the original note were not included. 10/24/2024 Melanie Carey (: 1965) is a 59 y.o. female , Established patient, here for evaluation of the following chief complaint(s): Diabetes Mellitus ASSESSMENT/PLAN: 1. Type 2 diabetes mellitus with polyneuropathy (HCC) Assessment & Plan: Poorly controlled. Improved glucose readings from a few weeks ago. Needs to get back on the mounjaro 5 mg weekly, continue metformin 1000 mg, 500 mg , 1000 mg daily, take glimepiride 4 mg in am consistently. Increased lantus from 14 units to 16 units nightly. Send daily glucose readings-fasting and post prandial every 3 days for medication adjustments. Reiterated importance of being consistent with medications in order to get better control of diabetes. 2. Vitamin B 12 deficiency Assessment & Plan: Continue b12 injections 3. Pancytopenia (HCC) Assessment & Plan: Follow-up with hematology as directed. 4. Pain management Assessment & Plan: Continue with pain management as directed. 5. Current mild episode of major depressive disorder without prior episode (HCC) Assessment & Plan: Continue bupropion xl 300 mg and Buspar 10 mg twice daily. Recommend counseling services. 6. Diabetic nephropathy associated with type 2 diabetes mellitus (HCC) Assessment & Plan: Stable. Get diabetes under control. Blood pressures are good 7. Other cirrhosis of liver (HCC) Assessment & Plan: Stable. Follow up with gastroenterology as scheduled 8. Anxiety Assessment & Plan: Stable. Continue Wellbutrin 300 mg daily, BuSpar 10 mg twice daily. Recommend establishing with counselor 9. Essential hypertension Assessment & Plan: Controlled. Blood pressure 124/72. Continue labetalol 100 mg twice daily. Has not tolerated CLAUDY inhibitors in the past, consider ARB 10. Hyperlipidemia LDL goal <70 Assessment & Plan: Controlled. Continue rosuvastatin 5 mg daily 11. Encounter for screening mammogram for malignant neoplasm of breast 12. Type 2 diabetes mellitus with hyperglycemia, unspecified whether termite helper insulin use (HCC) - insulin glargine (Lantus SoloStar) 100 UNIT/ML pen; Inject 16 Units under the skin Nightly., Starting Wed10/24/2024, No Print 13. Yeast dermatitis - fluconazole (Diflucan) 150 MG tablet; Take 1 tablet (150 mg) by mouth daily for 7 days. Take one tab now. Repeat in 7 days if symptoms persist., Starting Wed10/24/2024, Until Wed10/31/2024, Normal 14. Class 3 severe obesity due to excess calories with serious comorbidity and body mass index (BMI) of 40.0 to 44.9 in adult ([facility]) Assessment & Plan: Continue portion control, low carb,low fat, low cholesterol diet. Increase physical activity as tolerated. Follow up for [facility]. SUBJECTIVE/OBJECTIVE: [facility] - Melanie Carey (: 1965) is a 59 y.o. female , Established patient, here for the evaluation of the following chief complaint(s): Diabetes Mellitus Diabetes- fasting glucose 250-299, Has not been able to get the monjaro for about a month d/t money. Was increased to 5 mg weekly. Glimepiride- is not taking consistently 4 mg. Has been taking the 2 mg in am only. Metformin 1000 mg twice daily + 500 mg at noon. Lantus 14 units at night. Thinks she will be able to get the monjaro this week. Right hip pain- seeing Dr. Kevin Ricketts, was supposed to start physical therapy at [facility] in [place] but was not able to get it coordinated. Did see pain management- Basali, and got a steroid injection couple weeks ago and does not think it helped. Mood/anxiety- reports stressed about significant others health problems and her own health issues. Denies si/hi. Does not want to change medications currently GI- sees gastroenterology for cirrhosis, gerd. Denies any abdominal pain, n/v Current Outpatient Medications Medication Sig Dispense Refill albuterol 108 (90 Base) MCG/ACT inhaler Inhale 1 puff every 6 hours as needed for wheezing or shortness of breath. 18 g 11 buPROPion XL (Wellbutrin XL) 300 MG 24 hr tablet TAKE 1 TABLET BY MOUTH ONCE DAILY. DO NOT CRUSH, CHEW OR SPLIT. 90 tablet 0 busPIRone (Buspar) 10 MG tablet Take 1 tablet by mouth twice daily 60 tablet 0 Cyanocobalamin (B-12 Compliance Injection) 1000 MCG/ML kit Inject 1 ml (1000mcg) subcutaneous weekly x 4 then monthly 4 kit 2 glimepiride (Amaryl) 2 MG tablet Take 2 tablets (4 mg) by mouth daily (with breakfast). HYDROcodone-acetaminophen (Cameron) 5-325 MG tablet TAKE 1 TABLET BY MOUTH EVERY 6 HOURS NEEDED FOR PAIN FOR 3 DAYS labetalol (Normodyne) 100 MG tablet TAKE 1 TABLET BY MOUTH IN THE MORNING AND 1 TABLET IN THE EVENING. 60 tablet 0 metFORMIN (Glucophage) 1000 MG tablet Take 1 tablet (1,000 mg) by mouth 2 times daily (with meals). 180 tablet 1 nystatin (Mycostatin) 956236 UNIT/GM powder Apply topically 2 times daily. 30 g 0 rosuvastatin (Crestor) 5 MG tablet Take 1 tablet (5 mg) by mouth daily. 90 tablet 1 Tirzepatide (Mounjaro) 5 MG/0.5ML solution auto-injector Inject 5 mg under the skin 1 (one) time per week. 2 mL 0 traMADol (Ultram) 50 MG tablet TAKE 1 TABLET BY MOUTH TWICE DAILY NEEDED FOR 7 DAYS Unifine Pentips 31G X 8 MM misc Use as directed with insulin pen 100 each 1 fluconazole (Diflucan) 150 MG tablet Take 1 tablet (150 mg) by mouth daily for 7 days. Take one tab now. Repeat in 7 days if symptoms persist. 7 tablet 0 insulin glargine (Lantus SoloStar) 100 UNIT/ML pen Inject 16 Units under the skin Nightly. No current facility-administered medications for this visit. Review of Systems Constitutional: Positive for fatigue. Negative for activity change, appetite change, diaphoresis, fever and unexpected weight change. HENT: Negative. Eyes: Negative. Respiratory: Positive for shortness of breath. Negative for chest tightness. Cardiovascular: Positive for palpitations (occasional when anxious/stressed). Negative for chest pain. Gastrointestinal: Negative. Genitourinary: Negative for difficulty urinating. Musculoskeletal: Positive for arthralgias and gait problem (sometimes right hip feels like it is going to give out). Neurological: Positive for headaches (occasional). Psychiatric/Behavioral: Positive for dysphoric mood. Negative for agitation, behavioral problems, self-injury, sleep disturbance and suicidal ideas. The patient is nervous/anxious. Vitals: 10/24/24 0722 BP: 124/72 Pulse: 63 Resp: 18 Temp: 36.2 C (97.2 F) TempSrc: Infrared SpO2: 95% Weight: 272 lb (123 kg) Physical Exam Vitals reviewed. Constitutional: General: She is not in acute distress. Appearance: Normal appearance. She is obese. She is not ill-appearing. HENT: Head: Normocephalic and atraumatic. Mouth/Throat: Mouth: Mucous membranes are moist. Pharynx: Oropharynx is clear. No posterior oropharyngeal erythema. Eyes: Conjunctiva/sclera: Conjunctivae normal. Neck: Vascular: No carotid bruit. Cardiovascular: Rate and Rhythm: Normal rate and regular rhythm. Pulses: Normal pulses. Heart sounds: Normal heart sounds. Pulmonary: Effort: Pulmonary effort is normal. Breath sounds: Normal breath sounds. Musculoskeletal: Right lower leg: No edema. Left lower leg: No edema. Comments: Gait steady, able to get on and off the exam table without difficulty Lymphadenopathy: Cervical: No cervical adenopathy. Neurological: Mental Status: She is alert and oriented to person, place, and time. Psychiatric: Mood and Affect: Mood normal. Behavior: Behavior normal. Thought Content: Thought content normal. An electronic signature was used to authenticate this note. NICOLE Balbuena CNP 10/24/2024 10:01 AM documented in this encounter [facility] 10-24-2024 Instructions NICOLE Easley CNP - 10/24/2024 7:20 AM EDT Send daily fasting and 2 hour after meal blood sugar readings every 3 days to vt through [facility] [employer] [facility]. documented in this encounter [facility] 09-27-2024 Emergency department Note Humalog dose verified by doctor zara maddox. Per provider varsha, pt does not need the 24 units of Humalog and verbal orders with read back for 10 units of Humalog were given and verbal orders with read back for 650 mg of tylenol were in. [facility] 09-27-2024 Emergency department Note Humalog dose verified by doctor zara maddox. Per provider varsha, pt does not need the 24 units of Humalog and verbal orders with read back for 10 units of Humalog were given and verbal orders with read back for 650 mg of tylenol were in. EMERGENCY DEPARTMENT ENCOUNTER Pt Name: Raiza Carey Birthdate 1965 Date of evaluation: 09/27/2024 ED Provider: Jimenez Maddox MD CHIEF COMPLAINT Chief Complaint Patient presents with Hyperglycemia Patient states she received a steroid shot yesterday that elevated her blood glucose. Patient states she took an additional 12 units of insulin, however, her blood sugar stayed elevated. HISTORY OF PRESENT ILLNESS (Location/Symptom, Timing/Onset, Context/Setting, Quality, Duration, Modifying Factors, Severity) Note limiting factors. I wore appropriate PPE for the entirety of this encounter. HPI Raiza Carey is a 59 y.o. who presents to the emergency department with chief complaint of blood sugar. The patient said she woke up in middle the night and was very diaphoretic. She said she just does not feel well. She checked her blood sugar and it was running high. She took some extra subcu insulin that she had at home. She is on oral diabetes medications and does take Lantus in the evening. She said she had a hip injection yesterday. She suspects that it was a steroid injection. The patient has some urinary frequency although no dysuria mention. She does not really mention any major abdominal pain, vomiting or diarrhea that is new. No fevers or chills today. Her face is flushed which has happened before when her blood sugar gets up high. She denies any redness elsewhere. She has a slight headache although vision unchanged. No cough or URI symptoms. No flulike symptoms. She denies any trouble breathing. She says her chest is a little heavy, but she has that happen every now and then with her COPD. That is nothing new. No bruising or swelling that is new. No localizing numbness or weakness. No other associated complaints. Nursing Notes were reviewed. Limitations to history: None Outside historians: Family REVIEW OF SYSTEMS Review of Systems Constitutional: Positive for diaphoresis. Negative for chills and fever. HENT: Negative for sore throat. Eyes: Negative for visual disturbance. Respiratory: Positive for chest tightness. Negative for shortness of breath. Cardiovascular: Negative for chest pain. Gastrointestinal: Negative for abdominal pain, diarrhea and vomiting. Genitourinary: Positive for frequency. Negative for dysuria. Musculoskeletal: Negative for arthralgias and back pain. Skin: Positive for color change and rash. Neurological: Positive for headaches. Negative for weakness and numbness. All other systems reviewed and are negative. Pertinent positives and negatives as per HPI. PAST MEDICAL HISTORY Past Medical History: Diagnosis Date Anxiety Arthritis Chest pain Depression Diabetic nephropathy (CMS/HCC) (HCC) Elevated transaminase level Fatigue GERD (gastroesophageal reflux disease) Headache(784.0) Hemorrhoids Hyperlipidemia Hypertension Hyponatremia 2018 Low back pain Neuropathic pain Obesity DONNA (obstructive sleep apnea) Pain in limb 11/10/2023 Rectal bleed Right leg weakness Trochanteric bursitis of left hip Bilateral Type II or unspecified type diabetes mellitus without mention of complication, not stated as uncontrolled (HCC) Uncontrolled type 2 diabetes mellitus with complication 02/19/2015 SURGICAL HISTORY Past Surgical History: Procedure Laterality Date CARDIAC CATHETERIZATION 06/03/2018 CARPAL TUNNEL RELEASE CHOLECYSTECTOMY COLONOSCOPY 2011 ENDOMETRIAL ABLATION HERNIA REPAIR TONSILLECTOMY AND ADENOIDECTOMY (HISTORICAL) CURRENT MEDICATIONS Previous Medications ALBUTEROL 108 (90 BASE) MCG/ACT INHALER Inhale 1 puff every 6 hours as needed for wheezing or shortness of breath. BUPROPION XL (WELLBUTRIN XL) 300 MG 24 HR TABLET Take 1 tablet (300 mg) by mouth daily. Do not crush, chew, or split. BUSPIRONE (BUSPAR) 10 MG TABLET Take 1 tablet by mouth twice daily CYANOCOBALAMIN (B-12 COMPLIANCE INJECTION) 1000 MCG/ML KIT Inject 1 ml (1000mcg) subcutaneous weekly x 4 then monthly GLIMEPIRIDE (AMARYL) 2 MG TABLET Take 1 tablet (2 mg) by mouth daily (with breakfast). LABETALOL (NORMODYNE) 100 MG TABLET TAKE 1 TABLET BY MOUTH IN THE MORNING AND 1 TAB IN THE EVENING LANTUS SOLOSTAR 100 UNIT/ML PEN INJECT 10 UNITS SUBCUTANEOUSLY NIGHTLY. DISCARD PEN AFTER 28 DAYS. METFORMIN (GLUCOPHAGE) 1000 MG TABLET Take 1 tablet (1,000 mg) by mouth 2 times daily (with meals). NYSTATIN (MYCOSTATIN) 913360 UNIT/GM POWDER Apply topically 2 times daily. ROSUVASTATIN (CRESTOR) 5 MG TABLET Take 1 tablet (5 mg) by mouth daily. TIRZEPATIDE (MOUNJARO) 2.5 MG/0.5ML SOLUTION AUTO-INJECTOR Inject 2.5 mg under the skin 1 (one) time per week. UNIFINE PENTIPS 31G X 8 MM MISC Use as directed with insulin pen ALLERGIES Cat dander, Lisinopril, and Pollen extract FAMILY HISTORY Family History Problem Relation Name Age of Onset Diabetes Mother Heart disease Father Cancer Father prostate High Blood Pressure Father Other ([id number]) Sister TBI Depression Mother Substance Abuse Brother Heart disease Mother Other ([id number]) Mother Depression Brother SOCIAL HISTORY Social History Socioeconomic History Marital status: Tobacco Use Smoking status: Former Current packs/day: 0.00 Types: Cigarettes Quit date: 09/01/2013 Years since quittin.0 Smokeless tobacco: Never Substance and Sexual Activity Alcohol use: Not Currently Alcohol/week: 0.0 standard drinks of alcohol Drug use: No Social Drivers of Health Financial Resource Strain: High Risk (12/30/2022) Overall Financial Resource Strain (CARDIA) Difficulty of Paying Living Expenses: Very hard Food Insecurity: No Food Insecurity (02/11/2023) Hunger Vital Sign Worried About Running Out of Food in the Last Year: Never true Ran Out of Food in the Last Year: Never true Transportation Needs: No Transportation Needs (12/30/2022) PRAPARE - Transportation Lack of Transportation (Medical): No Lack of Transportation (Non-Medical): No Physical Activity: Inactive (02/11/2023) Exercise Vital Sign Days of Exercise per Week: 0 days Minutes of Exercise per Session: 0 min Housing Stability: Low Risk (02/11/2023) Housing Stability Vital Sign Unable to Pay for Housing in the Last Year: No Number of Places Lived in the Last Year: 2 Unstable Housing in the Last Year: No SCREENINGS PHYSICAL EXAM ED Triage Vitals [09/27/24 1442] Temp Heart Rate Resp BP 37.3 C (99.2 F) 100 15 (!) 165/100 SpO2 Temp Source Heart Rate Source Patient Position 97 % Temporal Monitor -- BP Location FiO2 (%) -- -- Physical Exam Vitals and nursing note reviewed. Exam conducted with a mechanical repair worker present. Constitutional: Appearance: Normal appearance. She is well-developed. She is not toxic-appearing. Comments: Patient appears somewhat uncomfortable although nontoxic. HENT: Head: Normocephalic and atraumatic. Comments: There is facial flushing mostly over the cheeks right greater than left, which does jessica to compression. Her face is bright red and slightly warm to touch. There is no fluctuance or induration. There is slight forehead involvement as well. Right Ear: External ear normal. Left Ear: External ear normal. Nose: Nose normal. Mouth/Throat: Pharynx: Oropharynx is clear. Eyes: Extraocular Movements: Extraocular movements intact. Conjunctiva/sclera: Conjunctivae normal. Pupils: Pupils are equal, round, and reactive to light. Cardiovascular: Rate and Rhythm: Normal rate and regular rhythm. Heart sounds: Normal heart sounds. No murmur heard. Pulmonary: Effort: Pulmonary effort is normal. No respiratory distress. Breath sounds: Normal breath sounds. No wheezing, rhonchi or rales. Abdominal: General: Bowel sounds are normal. Palpations: Abdomen is soft. Tenderness: There is no abdominal tenderness. There is no guarding or rebound. Musculoskeletal: General: No swelling or tenderness. Normal range of motion. Cervical back: Normal range of motion and neck supple. No rigidity. Skin: General: Skin is warm and dry. Neurological: General: No focal deficit present. Mental Status: She is alert and oriented to person, place, and time. GCS: GCS eye subscore is 4. GCS verbal subscore is 5. GCS motor subscore is 6. Cranial Nerves: Cranial nerves 2-12 are intact. Sensory: Sensation is intact. Motor: Motor function is intact. Coordination: Coordination is intact. Psychiatric: Mood and Affect: Mood normal. DIAGNOSTIC RESULTS Procedures/EKG: EKG per my interpretation shows a normal sinus rhythm at a rate of 96 with a left axis deviation. There is likely a left anterior fascicular block. There may be RVH and probable LVH. There was no acute ST elevation or ST depression however. NM is prolonged although the rest of her intervals within normal limits. There were no significant changes compared to prior EKG on file. EKG was reviewed by myself. Physician EKG interpretation can be found in [facility] nterpretation per the Radiologist below, if available at the time of this note: No orders to display ED BEDSIDE ULTRASOUND: Performed by ED Physician - none LABS: Labs Reviewed PHOSPHORUS - Abnormal Result Value PHOSPHORUS 2.1 (*) BLOOD GAS, VENOUS - Abnormal pH, Venous 7.402 pCO2, Venous 31.2 (*) pO2, Venous 72.5 HCO3, Venous 19.0 (*) O2 Sat, Venous 93.8 Base Excess, Venous -4.7 (*) Hgb, blood gas 13.1 TCO2, Venous 19.9 (*) Source Of Oxygen No data Amount Of Oxygen Narrative: Assessment of oxygenation is best done with an arterial blood gas determination. Reference ranges for pO2, bicarbonate, and base excess are for mixed venous blood. Specimens drawn from a peripheral vein will often have higher values. COMPREHENSIVE METABOLIC PANEL - Abnormal SODIUM 132 (*) POTASSIUM 4.9 CHLORIDE 102 CARBON DIOXIDE 18 (*) ANION GAP 12 UREA NITROGEN 30 (*) CREATININE 1.49 (*) GLUCOSE 528 (*) CALCIUM 9.2 AST (SGOT) 32 ALT 32 (*) ALKALINE PHOSPHATASE 145 ALBUMIN 3.5 BILIRUBIN, TOTAL 1.3 (*) TOTAL PROTEIN 7.6 eGFR 40.8 (*) CBC WITH AUTO DIFFERENTIAL - Abnormal Auto WBC 5.4 RBC 4.51 Hemoglobin 12.3 Hematocrit 37.0 MCV 82.0 MCH 27.3 MCHC 33.2 RDW 15.0 Platelets 50 (*) MPV 11.3 IPF 4 MANUAL DIFFERENTIAL (CELLAVISION) - Abnormal RBC Morphology Normal Neutrophils % 87 (*) Lymphocytes % 2 (*) Atypical Lymphocytes % 4 (*) Monocytes % 4 (*) Myelocytes % 3 (*) Absolute Neutrophil Count 4.7 Lymphocytes Absolute 0.1 (*) Atypical Lymphs Absolute 0.2 (*) Monocytes Absolute 0.2 Myelocytes Absolute 0.2 (*) Neutrophils Manual 89 Lymphocytes Manual 2 Monocytes Manual 4 Eosinophils Manual Basophils Manual Bands Manual Metamyelocytes Manual Myelocytes Manual 3 Promyelocytes Manual Blasts Manual Atypical Lymphocytes Manual 4 Unclassified Cells, Manual BASIC METABOLIC PANEL - Abnormal SODIUM 132 (*) POTASSIUM 4.5 CHLORIDE 105 CARBON DIOXIDE 18 (*) UREA NITROGEN 29 (*) CREATININE 1.17 (*) GLUCOSE 419 (*) CALCIUM 8.6 ANION GAP 9 eGFR 54.5 (*) POCT GLUCOSE METER UNSOLICITED RESULTS - Abnormal Glucose >450 (*) Narrative: Performed by: [facility], [address] [place] [id number] CLIA ID: [id number] POCT GLUCOSE METER UNSOLICITED RESULTS - Abnormal Glucose 303 (*) Narrative: Performed by: [facility], [address] [place] [id number] CLIA ID: [id number] BETA HYDROXYBUTYRATE - Normal BETA HYDROXYBUTYRATE 2.3 MAGNESIUM - Normal MAGNESIUM 1.6 Narrative: Higher values can be expected in females during menses. COMPLETE URINALYSIS WITH REFLEX TO CULTURE Narrative: The following orders were created for panel order Urinalysis complete with reflex to Culture. Procedure Abnormality Status --------- ------ Complete Urinalysis[[id number]] Please view results for these tests on the individual orders. COMPLETE URINALYSIS BETA HYDROXYBUTYRATE MAGNESIUM PHOSPHORUS BLOOD GAS, VENOUS POCT GLUCOSE METER POCT GLUCOSE METER POCT GLUCOSE METER POCT GLUCOSE METER POCT GLUCOSE METER POCT GLUCOSE METER All other labs were within normal range or not returned as of this dictation. EMERGENCY DEPARTMENT COURSE and DIFFERENTIAL DIAGNOSIS/MDM: Vitals: Vitals: 09/27/24 1442 09/27/24 1505 BP: (!) 165/100 Pulse: 100 Resp: 15 Temp: 37.3 C (99.2 F) TempSrc: Temporal SpO2: 97% Weight: 122 kg (270 lb) Diagnoses as of 09/27/24 1800 Hyperglycemia CARLOS (acute kidney injury) (HCC) Facial flushing The patient presented with chief complaint of elevated blood sugar. The differential diagnosis associated with this patient's presentation includes hyperglycemia, DKA, electrolyte abnormality, dehydration, unlikely ACS, unlikely UTI, unlikely sepsis or bacteremia, unlikely cellulitis. Our workup consisted of ordering/reviewing: EKG and lab work will be obtained. Patient is in agreement with this plan. Medications glucose oral gel 15 g (has no administration in time range) dextrose 50 % solution 12.5 g (has no administration in time range) glucagon (human recombinant) injection 1 mg (has no administration in time range) dextrose 5 % infusion (has no administration in time range) lactated ringers bolus 1,000 mL (0 mL IntraVENous Stopped 09/27/24 1651) And lactated Ringer's infusion (has no administration in time range) And dextrose 5 % and sodium chloride 0.45 % infusion (has no administration in time range) And dextrose 5 % and sodium chloride 0.45 % infusion (has no administration in time range) Insulin Lispro (Humalog) injection 10 Units (10 Units SubCUTAneous Given 09/27/24 155) acetaminophen (Tylenol) tablet 650 mg (650 mg Oral Given 09/27/24 155) sodium chloride 0.9 % bolus 1,000 mL (0 mL IntraVENous Stopped 09/27/24 165) REVAL: Patient's Accu-Chek was greater than 450 so I ordered the DKA lite protocol. I ordered IV fluids as well as subcu insulin. CBC showed a normal white count. VBG was generally unremarkable. Beta hydroxybutyrate level was normal. Phosphorus was slightly low at 2.1. CMP showed glucose 528 with a bicarb of 18 although anion gap normal. BUN and creatinine elevated above baseline at 30 and 1.49. ALT 32, total bili 1.3. The rest of her LFTs are normal. After 2 L of fluids, repeat BMP was obtained. Sodium is 132. Bicarb is still 18 although anion gap normal. BUN and creatinine improved to 29 and 1.17. Glucose on the BMP was 419. Most recent Accu-Chek however is 303. With her numbers improving and since she is feeling better, I believe we can discharge her home at this time. The cause of the facial flushing is unclear, but may be related to her hyperglycemia. Since this came on abruptly, I do not believe that this is cellulitis or other infectious etiology. At this point we will discharge home for outpatient follow-up. Close follow-up with her primary physician is recommended. She should continue her p.o. fluid intake as well as her usual blood sugar medicine at home. If anything changes or gets worse, she should notify us or return. I did recommend that she take a picture of her facial flushing the show her doctor so they can follow that and decide any further management that may be required. CRITICAL CARE TIME None CONSULTS: None PROCEDURES: Unless otherwise noted below, none FINAL IMPRESSION 1. Hyperglycemia 2. CARLOS (acute kidney injury) (HCC) 3. Facial flushing DISPOSITION Discharge 09/27/2024 05:56:50 PM PATIENT REFERRED TO: See Ricketts MD [address] [place] [address] B [facility] [id number] Schedule an appointment as soon as possible for a visit DISCHARGE MEDICATIONS: New Prescriptions No medications on file (Comment: Please note this report has been produced using speech recognition software and may contain errors related to that system including errors in grammar, punctuation, and spelling, as well as words and phrases that may be inappropriate. If there are any questions or concerns please feel free to contact the dictating provider for clarification.) Jimenez Maddox MD (electronically signed) Emergency Medicine Provider Jimenez Maddox MD 09/27/24 1800 documented in this encounter [facility] 09-27-2024 Physician Emergency department Note EMERGENCY DEPARTMENT ENCOUNTER Pt Name: Raiza Carey Birthdate 1965 Date of evaluation: 09/27/2024 ED Provider: Jimenez Maddox MD CHIEF COMPLAINT Chief Complaint Patient presents with Hyperglycemia Patient states she received a steroid shot yesterday that elevated her blood glucose. Patient states she took an additional 12 units of insulin, however, her blood sugar stayed elevated. HISTORY OF PRESENT ILLNESS (Location/Symptom, Timing/Onset, Context/Setting, Quality, Duration, Modifying Factors, Severity) Note limiting factors. I wore appropriate PPE for the entirety of this encounter. HPI Raiza Carey is a 59 y.o. who presents to the emergency department with chief complaint of blood sugar. The patient said she woke up in middle the night and was very diaphoretic. She said she just does not feel well. She checked her blood sugar and it was running high. She took some extra subcu insulin that she had at home. She is on oral diabetes medications and does take Lantus in the evening. She said she had a hip injection yesterday. She suspects that it was a steroid injection. The patient has some urinary frequency although no dysuria mention. She does not really mention any major abdominal pain, vomiting or diarrhea that is new. No fevers or chills today. Her face is flushed which has happened before when her blood sugar gets up high. She denies any redness elsewhere. She has a slight headache although vision unchanged. No cough or URI symptoms. No flulike symptoms. She denies any trouble breathing. She says her chest is a little heavy, but she has that happen every now and then with her COPD. That is nothing new. No bruising or swelling that is new. No localizing numbness or weakness. No other associated complaints. Nursing Notes were reviewed. Limitations to history: None Outside historians: Family REVIEW OF SYSTEMS Review of Systems Constitutional: Positive for diaphoresis. Negative for chills and fever. HENT: Negative for sore throat. Eyes: Negative for visual disturbance. Respiratory: Positive for chest tightness. Negative for shortness of breath. Cardiovascular: Negative for chest pain. Gastrointestinal: Negative for abdominal pain, diarrhea and vomiting. Genitourinary: Positive for frequency. Negative for dysuria. Musculoskeletal: Negative for arthralgias and back pain. Skin: Positive for color change and rash. Neurological: Positive for headaches. Negative for weakness and numbness. All other systems reviewed and are negative. Pertinent positives and negatives as per HPI. PAST MEDICAL HISTORY Past Medical History: Diagnosis Date Anxiety Arthritis Chest pain Depression Diabetic nephropathy ([facility]/HCC) (HCC) Elevated transaminase level Fatigue GERD (gastroesophageal reflux disease) Headache(784.0) Hemorrhoids Hyperlipidemia Hypertension Hyponatremia 2018 Low back pain Neuropathic pain Obesity DONNA (obstructive sleep apnea) Pain in limb 11/10/2023 Rectal bleed Right leg weakness Trochanteric bursitis of left hip Bilateral Type II or unspecified type diabetes mellitus without mention of complication, not stated as uncontrolled (HCC) Uncontrolled type 2 diabetes mellitus with complication 02/19/2015 SURGICAL HISTORY Past Surgical History: Procedure Laterality Date CARDIAC CATHETERIZATION 06/03/2018 CARPAL TUNNEL RELEASE CHOLECYSTECTOMY COLONOSCOPY 2011 ENDOMETRIAL ABLATION HERNIA REPAIR TONSILLECTOMY AND ADENOIDECTOMY (HISTORICAL) CURRENT MEDICATIONS Previous Medications ALBUTEROL 108 (90 BASE) MCG/ACT INHALER Inhale 1 puff every 6 hours as needed for wheezing or shortness of breath. BUPROPION XL (WELLBUTRIN XL) 300 MG 24 HR TABLET Take 1 tablet (300 mg) by mouth daily. Do not crush, chew, or split. BUSPIRONE (BUSPAR) 10 MG TABLET Take 1 tablet by mouth twice daily CYANOCOBALAMIN (B-12 COMPLIANCE INJECTION) 1000 MCG/ML KIT Inject 1 ml (1000mcg) subcutaneous weekly x 4 then monthly GLIMEPIRIDE (AMARYL) 2 MG TABLET Take 1 tablet (2 mg) by mouth daily (with breakfast). LABETALOL (NORMODYNE) 100 MG TABLET TAKE 1 TABLET BY MOUTH IN THE MORNING AND 1 TAB IN THE EVENING LANTUS SOLOSTAR 100 UNIT/ML PEN INJECT 10 UNITS SUBCUTANEOUSLY NIGHTLY. DISCARD PEN AFTER 28 DAYS. METFORMIN (GLUCOPHAGE) 1000 MG TABLET Take 1 tablet (1,000 mg) by mouth 2 times daily (with meals). NYSTATIN (MYCOSTATIN) 150017 UNIT/GM POWDER Apply topically 2 times daily. ROSUVASTATIN (CRESTOR) 5 MG TABLET Take 1 tablet (5 mg) by mouth daily. TIRZEPATIDE (MOUNJARO) 2.5 MG/0.5ML SOLUTION AUTO-INJECTOR Inject 2.5 mg under the skin 1 (one) time per week. UNIFINE PENTIPS 31G X 8 MM MISC Use as directed with insulin pen ALLERGIES Cat dander, Lisinopril, and Pollen extract FAMILY HISTORY Family History Problem Relation Name Age of Onset Diabetes Mother Heart disease Father Cancer Father prostate High Blood Pressure Father Other ([id number]) Sister TBI Depression Mother Substance Abuse Brother Heart disease Mother Other ([id number]) Mother Depression Brother SOCIAL HISTORY Social History Socioeconomic History Marital status: Tobacco Use Smoking status: Former Current packs/day: 0.00 Types: Cigarettes Quit date: 09/01/2013 Years since quittin.0 Smokeless tobacco: Never Substance and Sexual Activity Alcohol use: Not Currently Alcohol/week: 0.0 standard drinks of alcohol Drug use: No Social Drivers of Health Financial Resource Strain: High Risk (12/30/2022) Overall Financial Resource Strain (CARDIA) Difficulty of Paying Living Expenses: Very hard Food Insecurity: No Food Insecurity (02/11/2023) Hunger Vital Sign Worried About Running Out of Food in the Last Year: Never true Ran Out of Food in the Last Year: Never true Transportation Needs: No Transportation Needs (12/30/2022) PRAPARE - Transportation Lack of Transportation (Medical): No Lack of Transportation (Non-Medical): No Physical Activity: Inactive (02/11/2023) Exercise Vital Sign Days of Exercise per Week: 0 days Minutes of Exercise per Session: 0 min Housing Stability: Low Risk (02/11/2023) Housing Stability Vital Sign Unable to Pay for Housing in the Last Year: No Number of Places Lived in the Last Year: 2 Unstable Housing in the Last Year: No SCREENINGS PHYSICAL EXAM ED Triage Vitals [09/27/24 1442] Temp Heart Rate Resp BP 37.3 C (99.2 F) 100 15 (!) 165/100 SpO2 Temp Source Heart Rate Source Patient Position 97 % Temporal Monitor -- BP Location FiO2 (%) -- -- Physical Exam Vitals and nursing note reviewed. Exam conducted with a mechanical repair worker present. Constitutional: Appearance: Normal appearance. She is well-developed. She is not toxic-appearing. Comments: Patient appears somewhat uncomfortable although nontoxic. HENT: Head: Normocephalic and atraumatic. Comments: There is facial flushing mostly over the cheeks right greater than left, which does jessica to compression. Her face is bright red and slightly warm to touch. There is no fluctuance or induration. There is slight forehead involvement as well. Right Ear: External ear normal. Left Ear: External ear normal. Nose: Nose normal. Mouth/Throat: Pharynx: Oropharynx is clear. Eyes: Extraocular Movements: Extraocular movements intact. Conjunctiva/sclera: Conjunctivae normal. Pupils: Pupils are equal, round, and reactive to light. Cardiovascular: Rate and Rhythm: Normal rate and regular rhythm. Heart sounds: Normal heart sounds. No murmur heard. Pulmonary: Effort: Pulmonary effort is normal. No respiratory distress. Breath sounds: Normal breath sounds. No wheezing, rhonchi or rales. Abdominal: General: Bowel sounds are normal. Palpations: Abdomen is soft. Tenderness: There is no abdominal tenderness. There is no guarding or rebound. Musculoskeletal: General: No swelling or tenderness. Normal range of motion. Cervical back: Normal range of motion and neck supple. No rigidity. Skin: General: Skin is warm and dry. Neurological: General: No focal deficit present. Mental Status: She is alert and oriented to person, place, and time. GCS: GCS eye subscore is 4. GCS verbal subscore is 5. GCS motor subscore is 6. Cranial Nerves: Cranial nerves 2-12 are intact. Sensory: Sensation is intact. Motor: Motor function is intact. Coordination: Coordination is intact. Psychiatric: Mood and Affect: Mood normal. DIAGNOSTIC RESULTS Procedures/EKG: EKG per my interpretation shows a normal sinus rhythm at a rate of 96 with a left axis deviation. There is likely a left anterior fascicular block. There may be RVH and probable LVH. There was no acute ST elevation or ST depression however. NM is prolonged although the rest of her intervals within normal limits. There were no significant changes compared to prior EKG on file. EKG was reviewed by myself. Physician EKG interpretation can be found in [facility] nterpretation per the Radiologist below, if available at the time of this note: No orders to display ED BEDSIDE ULTRASOUND: Performed by ED Physician - none LABS: Labs Reviewed PHOSPHORUS - Abnormal Result Value PHOSPHORUS 2.1 (*) BLOOD GAS, VENOUS - Abnormal pH, Venous 7.402 pCO2, Venous 31.2 (*) pO2, Venous 72.5 HCO3, Venous 19.0 (*) O2 Sat, Venous 93.8 Base Excess, Venous -4.7 (*) Hgb, blood gas 13.1 TCO2, Venous 19.9 (*) Source Of Oxygen No data Amount Of Oxygen Narrative: Assessment of oxygenation is best done with an arterial blood gas determination. Reference ranges for pO2, bicarbonate, and base excess are for mixed venous blood. Specimens drawn from a peripheral vein will often have higher values. COMPREHENSIVE METABOLIC PANEL - Abnormal SODIUM 132 (*) POTASSIUM 4.9 CHLORIDE 102 CARBON DIOXIDE 18 (*) ANION GAP 12 UREA NITROGEN 30 (*) CREATININE 1.49 (*) GLUCOSE 528 (*) CALCIUM 9.2 AST (SGOT) 32 ALT 32 (*) ALKALINE PHOSPHATASE 145 ALBUMIN 3.5 BILIRUBIN, TOTAL 1.3 (*) TOTAL PROTEIN 7.6 eGFR 40.8 (*) CBC WITH AUTO DIFFERENTIAL - Abnormal Auto WBC 5.4 RBC 4.51 Hemoglobin 12.3 Hematocrit 37.0 MCV 82.0 MCH 27.3 MCHC 33.2 RDW 15.0 Platelets 50 (*) MPV 11.3 IPF 4 MANUAL DIFFERENTIAL (CELLAVISION) - Abnormal RBC Morphology Normal Neutrophils % 87 (*) Lymphocytes % 2 (*) Atypical Lymphocytes % 4 (*) Monocytes % 4 (*) Myelocytes % 3 (*) Absolute Neutrophil Count 4.7 Lymphocytes Absolute 0.1 (*) Atypical Lymphs Absolute 0.2 (*) Monocytes Absolute 0.2 Myelocytes Absolute 0.2 (*) Neutrophils Manual 89 Lymphocytes Manual 2 Monocytes Manual 4 Eosinophils Manual Basophils Manual Bands Manual Metamyelocytes Manual Myelocytes Manual 3 Promyelocytes Manual Blasts Manual Atypical Lymphocytes Manual 4 Unclassified Cells, Manual BASIC METABOLIC PANEL - Abnormal SODIUM 132 (*) POTASSIUM 4.5 CHLORIDE 105 CARBON DIOXIDE 18 (*) UREA NITROGEN 29 (*) CREATININE 1.17 (*) GLUCOSE 419 (*) CALCIUM 8.6 ANION GAP 9 eGFR 54.5 (*) POCT GLUCOSE METER UNSOLICITED RESULTS - Abnormal Glucose >450 (*) Narrative: Performed by: [facility], [address] [place] [id number] CLIA ID: [id number] POCT GLUCOSE METER UNSOLICITED RESULTS - Abnormal Glucose 303 (*) Narrative: Performed by: [facility], [address] [place] [id number] CLIA ID: [id number] BETA HYDROXYBUTYRATE - Normal BETA HYDROXYBUTYRATE 2.3 MAGNESIUM - Normal MAGNESIUM 1.6 Narrative: Higher values can be expected in females during menses. COMPLETE URINALYSIS WITH REFLEX TO CULTURE Narrative: The following orders were created for panel order Urinalysis complete with reflex to Culture. Procedure Abnormality Status --------- ------ Complete Urinalysis[[id number]] Please view results for these tests on the individual orders. COMPLETE URINALYSIS BETA HYDROXYBUTYRATE MAGNESIUM PHOSPHORUS BLOOD GAS, VENOUS POCT GLUCOSE METER POCT GLUCOSE METER POCT GLUCOSE METER POCT GLUCOSE METER POCT GLUCOSE METER POCT GLUCOSE METER All other labs were within normal range or not returned as of this dictation. EMERGENCY DEPARTMENT COURSE and DIFFERENTIAL DIAGNOSIS/MDM: Vitals: Vitals: 09/27/24 1442 09/27/24 1505 BP: (!) 165/100 Pulse: 100 Resp: 15 Temp: 37.3 C (99.2 F) TempSrc: Temporal SpO2: 97% Weight: 122 kg (270 lb) Diagnoses as of 09/27/24 1800 Hyperglycemia CARLOS (acute kidney injury) (HCC) Facial flushing The patient presented with chief complaint of elevated blood sugar. The differential diagnosis associated with this patient's presentation includes hyperglycemia, DKA, electrolyte abnormality, dehydration, unlikely ACS, unlikely UTI, unlikely sepsis or bacteremia, unlikely cellulitis. Our workup consisted of ordering/reviewing: EKG and lab work will be obtained. Patient is in agreement with this plan. Medications glucose oral gel 15 g (has no administration in time range) dextrose 50 % solution 12.5 g (has no administration in time range) glucagon (human recombinant) injection 1 mg (has no administration in time range) dextrose 5 % infusion (has no administration in time range) lactated ringers bolus 1,000 mL (0 mL IntraVENous Stopped 09/27/24 1651) And lactated Ringer's infusion (has no administration in time range) And dextrose 5 % and sodium chloride 0.45 % infusion (has no administration in time range) And dextrose 5 % and sodium chloride 0.45 % infusion (has no administration in time range) Insulin Lispro (Humalog) injection 10 Units (10 Units SubCUTAneous Given 09/27/24 1550) acetaminophen (Tylenol) tablet 650 mg (650 mg Oral Given 09/27/24 1550) sodium chloride 0.9 % bolus 1,000 mL (0 mL IntraVENous Stopped 09/27/24 1655) REVAL: Patient's Accu-Chek was greater than 450 so I ordered the DKA lite protocol. I ordered IV fluids as well as subcu insulin. CBC showed a normal white count. VBG was generally unremarkable. Beta hydroxybutyrate level was normal. Phosphorus was slightly low at 2.1. CMP showed glucose 528 with a bicarb of 18 although anion gap normal. BUN and creatinine elevated above baseline at 30 and 1.49. ALT 32, total bili 1.3. The rest of her LFTs are normal. After 2 L of fluids, repeat BMP was obtained. Sodium is 132. Bicarb is still 18 although anion gap normal. BUN and creatinine improved to 29 and 1.17. Glucose on the BMP was 419. Most recent Accu-Chek however is 303. With her numbers improving and since she is feeling better, I believe we can discharge her home at this time. The cause of the facial flushing is unclear, but may be related to her hyperglycemia. Since this came on abruptly, I do not believe that this is cellulitis or other infectious etiology. At this point we will discharge home for outpatient follow-up. Close follow-up with her primary physician is recommended. She should continue her p.o. fluid intake as well as her usual blood sugar medicine at home. If anything changes or gets worse, she should notify us or return. I did recommend that she take a picture of her facial flushing the show her doctor so they can follow that and decide any further management that may be required. CRITICAL CARE TIME None CONSULTS: None PROCEDURES: Unless otherwise noted below, none FINAL IMPRESSION 1. Hyperglycemia 2. CARLOS (acute kidney injury) (HCC) 3. Facial flushing DISPOSITION Discharge 09/27/2024 05:56:50 PM PATIENT REFERRED TO: See Ricketts MD [address] [place] [address] B [facility] [id number] Schedule an appointment as soon as possible for a visit DISCHARGE MEDICATIONS: New Prescriptions No medications on file (Comment: Please note this report has been produced using speech recognition software and may contain errors related to that system including errors in grammar, punctuation, and spelling, as well as words and phrases that may be inappropriate. If there are any questions or concerns please feel free to contact the dictating provider for clarification.) Jimenez Maddox MD (electronically signed) Emergency Medicine Provider Jimenez Maddox MD 09/27/24 1800 [facility] 09-27-2024 Telephone encounter Note I messaged her through my chart. [facility] 09-27-2024 Miscellaneous Notes I messaged her through my chart. I will call her this evening after she gets home from work. Thanks. Patient called back and advised will stick with current plan. Patient wanting to know if she cannot get her Glimepiride today while at work if she should take it when she gets home from work around 5pm or just wait and see what her blood sugar is. Message to Scar for advice. For tonight patient will check her blood sugar and if over 200 give 10 units at bedtime. If over 250 12 units. If over 300 call office for dosing and further instruction. Monitor for low blood sugars. Patient current blood sugar is 443 and patient took this last about 10 minutes ago. Prior to this she states it was 448. Patient states last night took 14 units of insulin and this was prior to the extra that she added on at 2-3am. Office back line called and spoke with Scar who states to have patient Take an extra Glimepiride 2mg today to help in bringing her blood sugar down for now. Then for tonight have her check her blood sugar and if over 200 give 10 units tonight at bedtime. If over 250 12 units. If over 300 call office. Monitor for low blood sugars. While speaking with patient further patient states she had gave her self the extra shot this morning because she was given a steroid shot yesterday with ortho and was told that she may need extra insulin because of this so when she woke up and it was elevated she just gave herself another shot. This information was relayed to Scar via secure chat for any further recommendations. Patient advised will call her with any further recommendations. S: Patient spoke with [facility] nurse regarding elevated blood sugar reading. B: Onset of symptoms started overnight. She did have an injection for pain, in the right hip, on 09/26/24 at [facility]. A: Patient reports she had profuse sweating early this morning and she check her blood sugar and her meter registered HIGH. She took an additional insulin, 12 units of Lantus at 3 am. At 8 am her blood sugar was 503 and she does report increased thirst, increased urination, nausea and some fatigue. Denies stomach pain, increased hunger or vomiting. She took her glimepiride 2 mg at 7 am this morning. She was unable to check blood sugar during our conversation as she was at work and her meter was not with her at that time. R: Second level triage, via phone, with Scar Seymour APRN, HOLLIE. Provider would like patient to check her blood glucose now and clarify previous dose of Lantus prior to the 3 am dose. Attempted to call patient back twice, left voice message to call the office for further instructions. Prior to calling provider, advised patient to increase fluids and exercise to help bring her blood glucose down. Advised walking is a good form of exercise. She understands care advice and has no further questions at this time. Instructed to call back with any further questions or concerns. Reason for Disposition Blood glucose > 500 mg/dL (27.8 mmol/L) Protocols used: Diabetes - High Blood [id number] documented in this encounter [facility] 09-27-2024 Telephone encounter Note I will call her this evening after she gets home from work. Thanks. [facility] 09-27-2024 Telephone encounter Note Patient called back and advised will stick with current plan. Patient wanting to know if she cannot get her Glimepiride today while at work if she should take it when she gets home from work around 5pm or just wait and see what her blood sugar is. Message to Scar for advice. For tonight patient will check her blood sugar and if over 200 give 10 units at bedtime. If over 250 12 units. If over 300 call office for dosing and further instruction. Monitor for low blood sugars. [facility] 09-27-2024 Telephone encounter Note Patient current blood sugar is 443 and patient took this last about 10 minutes ago. Prior to this she states it was 448. Patient states last night took 14 units of insulin and this was prior to the extra that she added on at 2-3am. Office back line called and spoke with Scar who states to have patient Take an extra Glimepiride 2mg today to help in bringing her blood sugar down for now. Then for tonight have her check her blood sugar and if over 200 give 10 units tonight at bedtime. If over 250 12 units. If over 300 call office. Monitor for low blood sugars. While speaking with patient further patient states she had gave her self the extra shot this morning because she was given a steroid shot yesterday with ortho and was told that she may need extra insulin because of this so when she woke up and it was elevated she just gave herself another shot. This information was relayed to Scar via secure chat for any further recommendations. Patient advised will call her with any further recommendations. [facility] 09-27-2024 Telephone encounter Note S: Patient spoke with [facility] nurse regarding elevated blood sugar reading. B: Onset of symptoms started overnight. She did have an injection for pain, in the right hip, on 09/26/24 at [facility]. A: Patient reports she had profuse sweating early this morning and she check her blood sugar and her meter registered HIGH. She took an additional insulin, 12 units of Lantus at 3 am. At 8 am her blood sugar was 503 and she does report increased thirst, increased urination, nausea and some fatigue. Denies stomach pain, increased hunger or vomiting. She took her glimepiride 2 mg at 7 am this morning. She was unable to check blood sugar during our conversation as she was at work and her meter was not with her at that time. R: Second level triage, via phone, with Scar Seymour APRN, [employer]. Provider would like patient to check her blood glucose now and clarify previous dose of Lantus prior to the 3 am dose. Attempted to call patient back twice, left voice message to call the office for further instructions. Prior to calling provider, advised patient to increase fluids and exercise to help bring her blood glucose down. Advised walking is a good form of exercise. She understands care advice and has no further questions at this time. Instructed to call back with any further questions or concerns. Reason for Disposition Blood glucose > 500 mg/dL (27.8 mmol/L) Protocols used: Diabetes - High Blood [id number] [facility] 09-20-2024 Telephone encounter Note Reviewed chart. Refill appropriate. RX sent. [facility] 09-20-2024 Miscellaneous Notes Reviewed chart. Refill appropriate. RX sent. Prescription Request: Last medication check: 08-01-24 Last physical exam: 08-26-23 Next scheduled appointment: 10-24-24 Last date of refill on this medication 08-02-24 documented in this encounter [facility] 09-20-2024 Telephone encounter Note Prescription Request: Last medication check: 08-01-24 Last physical exam: 08-26-23 Next scheduled appointment: 10-24-24 Last date of refill on this medication 08-02-24 [facility] 08-25-2024 History of Present illness Narrative Images from the original note were not included. 08/25/2024 Melanie Carey (: 1965) is a 59 y.o. female , Established patient, here for evaluation of the following chief complaint(s): URI Patient was identified and seen today via Telehealth by agreement and consent. I used the following Telehealth technology: Audio and video capabilities. Patient location: Patient Location: Home. This patient encounter is appropriate and reasonable under the circumstances: appointment availability . The patient has been advised of the potential risks and limitations of this mode of treatment (including but not limited to the absence of in-person examination) and has agreed to be treated in a remote fashion in spite of them. Any and all of the patient's/patient's family's questions on this issue have been answered and I have made no promises or guarantees to the patient. The patient has also been advised to contact this office for worsening conditions or problems, and seek emergency medical treatment and/or call 911 if the patient deems either necessary. The patient stated that they are currently in the [facility]. If the patient is a minor, permission has been obtained by the parent or guardian for the patient to receive medical care at this visit. ASSESSMENT/PLAN: 1. URI with cough and congestion - Saline nasal spray for congestion. - Encouraged increasing oral fluids to keep mucous secretions moist. - May use Tylenol/Motrin as needed for pain relief. - Sleep with humidified air. - Has Mucinex at home and will take this for congestion. - Discussed signs and symptoms warranting follow up in the office- verbalized understanding. - Will reach back out to the office next week if no improvement in symptoms. 2. Chronic bronchitis, unspecified chronic bronchitis type (HCC) - Stable. Continue Albuterol as needed. Follow up if symptoms worsen or fail to improve. SUBJECTIVE/OBJECTIVE: HPI - Raiza presents today for a video virtual visit with concerns of feeling achy, feeling more short of breath, a cough (non-productive), chest congestion, feeling chilled, and a sore throat. States her home temperature is 97F. States her was recently in the hospital for viral pneumonia. Has taken cough drops. Has not taken a home COVID-19 test. Has COPD and has a rescue inhaler- this has been helpful. Has been monitoring her home oxygen levels and is 97% at the time of our video visit. See ROS for additional information. Review of Systems Constitutional: Positive for chills. Negative for fever. HENT: Positive for congestion and sore throat. Negative for ear discharge, ear pain and rhinorrhea. Respiratory: Positive for cough and shortness of breath. Cardiovascular: Negative for chest pain. Vitals: 08/25/24 1355 Pulse: 73 Temp: 36.1 C (97 F) SpO2: 97% There is no height or weight on file to calculate BMI. Physical Exam Constitutional: General: She is not in acute distress. HENT: Head: Normocephalic and atraumatic. Pulmonary: Effort: Pulmonary effort is normal. Comments: Speaking in full sentences. Negative for audible wheezing or signs of respiratory distress. Sounds congested. Skin: Coloration: Skin is not pale. Findings: No erythema. Neurological: Mental Status: She is alert and oriented to person, place, and time. Psychiatric: Mood and Affect: Mood normal. Behavior: Behavior normal. Thought Content: Thought content normal. Judgment: Judgment normal. Data Reviewed Labs: Imaging/Testing: An electronic signature was used to authenticate this note. NICOLE Mishra CNP 08/25/2024 2:03 PM documented in this encounter [facility] 08-02-2024 Telephone encounter Note ----- Message from NICOLE Easley CNP sent at 08/02/2024 8:55 AM EST ----- CBC- stable cell counts NICOLE Easley CNP 08/02/2024 8:55 AM EST CMP- glucose elevated at 256, kidney function good, normal electrolytes, liver enzymes normal. Lipid panel- total cholesterol good 159, HDL low 42, triglycerides slightly elevated at 190, LDL ok at 89. Recommend low dose rosuvastatin 5 mg nightly for cholesterol and checking labs in 1 month. Hemoglobin A1c- elevated at 10.2- recommend continuing current medications (and starting the mounjaro), adding basal insulin (long acting) 10 units at bedtime. Notified, agrees to both Rosuvastatin and a long acting insulin. Pended statin and future labs. Scheduled. Pharmacy verified. Please send in the insulin-not pended. 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 [facility] 08-02-2024 Miscellaneous Notes ----- Message from NICOLE Easley CNP sent at 08/02/2024 8:55 AM EST ----- CBC- stable cell counts NICOLE Easley CNP 08/02/2024 8:55 AM EST CMP- glucose elevated at 256, kidney function good, normal electrolytes, liver enzymes normal. Lipid panel- total cholesterol good 159, HDL low 42, triglycerides slightly elevated at 190, LDL ok at 89. Recommend low dose rosuvastatin 5 mg nightly for cholesterol and checking labs in 1 month. Hemoglobin A1c- elevated at 10.2- recommend continuing current medications (and starting the mounjaro), adding basal insulin (long acting) 10 units at bedtime. Notified, agrees to both Rosuvastatin and a long acting insulin. Pended statin and future labs. Scheduled. Pharmacy verified. Please send in the insulin-not pended. 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 documented in this encounter [facility] 08-01-2024 Evaluation + Plan note Associated Problem(s): Financial difficulty Patient reports difficulty meeting monthly rent due to recent hospitalizations of her significant other. Patient states she is okay with licensed and certified midwife reaching out to her to provide potential resources. [facility] 08-01-2024 Miscellaneous Notes Associated Problem(s): Financial difficulty Patient reports difficulty meeting monthly rent due to recent hospitalizations of her significant other. Patient states she is okay with licensed and certified midwife reaching out to her to provide potential resources. Associated Problem(s): Anxiety Stable. Continue Wellbutrin 300 mg daily, BuSpar 10 mg twice daily. Recommend establishing with counselor Associated Problem(s): Hyperlipidemia LDL goal <70 Check lipids today, currently not on statin. Associated Problem(s): Essential hypertension Controlled. Blood pressure 137/81. Continue labetalol 100 mg twice daily. Has not tolerated CLAUDY inhibitors in the past, consider ARB Associated Problem(s): Type 2 diabetes with nephropathy (HCC) Control unknown. Obtain hemoglobin A1c, cmp today. Continue metformin 1000 mg twice daily, glimepiride 2 mg daily and start Mounjaro 2.5 mg weekly. Patient to send provider with update when she starts the Mounjaro and provide glucose readings fasting and 2 hours postmeal in 2 weeks. Associated Problem(s): Obstructive sleep apnea syndrome Uncontrolled. Does not have CPAP- will need re-evaluation Associated Problem(s): Low platelet count (HCC) Check platelets. Established with hematology- but has not seen them in awhile d/t financial concerns Associated Problem(s): Other cirrhosis of liver (HCC) Stable. Consider obtaining labs to evaluate fibrosis score. Will review chart further to see if this has been completed yet. She was briefly seeing gastroenterology. Associated Problem(s): Class 3 severe obesity due to excess calories with serious comorbidity and body mass index (BMI) of 40.0 to 44.9 in adult (HCC) Continue portion control, low carb,low fat, low cholesterol diet. Has had about 30 lbs weight loss since 11/2023. Increase physical activity as tolerated. Associated Problem(s): Vitamin B 12 deficiency Last b12 level low, has not been taking b12, Restart vit b 12 injections. Will plan on checking B12 level at next visit. Associated Problem(s): Major depressive disorder, single episode, unspecified Currently with increased symptoms d/t increased life stress/financial concerns. Denies si/hi. Continue bupropion xl 300 mg and Buspar 10 mg twice daily. Recommend counseling services. Associated Problem(s): Chronic obstructive pulmonary disease (HCC) Controlled. Denies any increased shortness of breath or cough. Continue albuterol as needed as directed. documented in this encounter [facility] 08-01-2024 Evaluation + Plan note Associated Problem(s): Anxiety Stable. Continue Wellbutrin 300 mg daily, BuSpar 10 mg twice daily. Recommend establishing with counselor [facility] 08-01-2024 Evaluation + Plan note Associated Problem(s): Hyperlipidemia LDL goal <70 Check lipids today, currently not on statin. [facility] 08-01-2024 Evaluation + Plan note Associated Problem(s): Essential hypertension Controlled. Blood pressure 137/81. Continue labetalol 100 mg twice daily. Has not tolerated CLAUDY inhibitors in the past, consider ARB [facility] 08-01-2024 Evaluation + Plan note Associated Problem(s): Type 2 diabetes with nephropathy (HCC) Control unknown. Obtain hemoglobin A1c, cmp today. Continue metformin 1000 mg twice daily, glimepiride 2 mg daily and start Mounjaro 2.5 mg weekly. Patient to send provider with update when she starts the Mounjaro and provide glucose readings fasting and 2 hours postmeal in 2 weeks. [facility] 08-01-2024 Evaluation + Plan note Associated Problem(s): Obstructive sleep apnea syndrome Uncontrolled. Does not have CPAP- will need re-evaluation [employer] 08-01-2024 Evaluation + Plan note Associated Problem(s): Low platelet count (HCC) Check platelets. Established with hematology- but has not seen them in awhile d/t financial concerns [employer] 08-01-2024 Evaluation + Plan note Associated Problem(s): Other cirrhosis of liver (HCC) Stable. Consider obtaining labs to evaluate fibrosis score. Will review chart further to see if this has been completed yet. She was briefly seeing gastroenterology. [facility] [employer] 08-01-2024 Evaluation + Plan note Associated Problem(s): Class 3 severe obesity due to excess calories with serious comorbidity and body mass index (BMI) of 40.0 to 44.9 in adult (HCC) Continue portion control, low carb,low fat, low cholesterol diet. Has had about 30 lbs weight loss since 11/2023. Increase physical activity as tolerated. [facility] [employer] 08-01-2024 Evaluation + Plan note Associated Problem(s): Vitamin B 12 deficiency Last b12 level low, has not been taking b12, Restart vit b 12 injections. Will plan on checking B12 level at next visit. [facility] [employer] 08-01-2024 Evaluation + Plan note Associated Problem(s): Major depressive disorder, single episode, unspecified Currently with increased symptoms d/t increased life stress/financial concerns. Denies si/hi. Continue bupropion xl 300 mg and Buspar 10 mg twice daily. Recommend counseling services. [facility] [employer] 08-01-2024 Evaluation + Plan note Associated Problem(s): Chronic obstructive pulmonary disease (HCC) Controlled. Denies any increased shortness of breath or cough. Continue albuterol as needed as directed. [employer] 08-01-2024 History of Present illness Narrative Patient was identified by name and Date of . Health Maintenance Due Topic Diabetes: Retinopathy Screening-needs completed Pneumococcal Vaccine-declined Cervical Cancer Screening-declined Colorectal Cancer Screening-declined Diabetes: Urine Nuknoku-Qdvkzfcxoo-pbraja Mammogram-pended Diabetes: Foot Exam-pended Depression Monitoring-NEEDS DONE Influenza Vaccine-had completed Images from the original note were not included. 08/01/2024 Melanie Carey (: 1965) is a 59 y.o. female , Established patient, here for evaluation of the following chief complaint(s): Diabetes and Health Maintenance (Diabetes: Retinopathy Screening-needs completed/Pneumococcal Vaccine-declined/Cervical Cancer Screening-declined/Colorectal Cancer Screening-declined/Diabetes: Urine Bvyjaff-Jpouvtliqx-xksrez/Mammogra m-pended/Diabetes: Foot Exam-pended/Depression Monitoring-NEEDS DONE/Influenza Vaccine-had completed/) ASSESSMENT/PLAN: 1. Type 2 diabetes with nephropathy (HCC) Assessment & Plan: Control unknown. Obtain hemoglobin A1c, cmp today. Continue metformin 1000 mg twice daily, glimepiride 2 mg daily and start Mounjaro 2.5 mg weekly. Patient to send provider with update when she starts the Mounjaro and provide glucose readings fasting and 2 hours postmeal in 2 weeks. Orders: - Microalbumin / creatinine, urine ratio - Hm Diabetes Foot Exam - Comprehensive metabolic panel - Hemoglobin A1c - Tirzepatide (Mounjaro) 2.5 MG/0.5ML solution auto-injector; Inject 2.5 mg under the skin 1 (one) time per week., Starting Wed08/01/2024, Normal 2. Low platelet count (HCC) Assessment & Plan: Check platelets. Established with hematology- but has not seen them in awhile d/t financial concerns 3. Essential hypertension Assessment & Plan: Controlled. Blood pressure 137/81. Continue labetalol 100 mg twice daily. Has not tolerated CLAUDY inhibitors in the past, consider ARB 4. Hyperlipidemia LDL goal <70 Assessment & Plan: Check lipids today, currently not on statin. Orders: - Lipid panel 5. Obstructive sleep apnea syndrome Assessment & Plan: Uncontrolled. Does not have CPAP- will need re-evaluation 6. Pancytopenia (HCC) - CBC - Cyanocobalamin (B-12 Compliance Injection) 1000 MCG/ML kit; Inject 1 ml (1000mcg) subcutaneous weekly x 4 then monthly, Normal 7. Encounter for screening mammogram for malignant neoplasm of breast - Bilateral screening mammogram with tomosynthesis 8. Type 2 diabetes mellitus with hyperglycemia, unspecified whether termite helper insulin use ([facility]) - glimepiride (Amaryl) 2 MG tablet; Take 1 tablet (2 mg) by mouth daily (with breakfast)., Starting Wed08/01/2024, Normal 9. Other cirrhosis of liver ([facility]) Assessment & Plan: Stable. Consider obtaining labs to evaluate fibrosis score. Will review chart further to see if this has been completed yet. She was briefly seeing gastroenterology. 10. Chronic bronchitis, unspecified chronic bronchitis type ([facility]) Assessment & Plan: Controlled. Denies any increased shortness of breath or cough. Continue albuterol as needed as directed. 11. Current mild episode of major depressive disorder without prior episode ([facility]) Assessment & Plan: Currently with increased symptoms d/t increased life stress/financial concerns. Denies si/hi. Continue bupropion xl 300 mg and Buspar 10 mg twice daily. Recommend counseling services. 12. Class 3 severe obesity due to excess calories with serious comorbidity and body mass index (BMI) of 40.0 to 44.9 in adult ([facility]) Assessment & Plan: Continue portion control, low carb,low fat, low cholesterol diet. Has had about 30 lbs weight loss since 11/2023. Increase physical activity as tolerated. 13. Vitamin B 12 deficiency Assessment & Plan: Last b12 level low, has not been taking b12, Restart vit b 12 injections. Will plan on checking B12 level at next visit. 14. Anxiety Assessment & Plan: Stable. Continue Wellbutrin 300 mg daily, BuSpar 10 mg twice daily. Recommend establishing with counselor 15. Financial difficulty Assessment & Plan: Patient reports difficulty meeting monthly rent due to recent hospitalizations of her significant other. Patient states she is okay with licensed and certified midwife reaching out to her to provide potential resources. Follow up in about 3 months (around 10/30/2024) for [facility]. SUBJECTIVE/OBJECTIVE: HPI - Melanie Carey (: 1965) is a 59 y.o. female , Established patient, here for the evaluation of the following chief complaint(s): Diabetes and Health Maintenance (Diabetes: Retinopathy Screening-needs completed/Pneumococcal Vaccine-declined/Cervical Cancer Screening-declined/Colorectal Cancer Screening-declined/Diabetes: Urine Sszxyul-Itihidkpdr-ohfzpc/Mammogra m-pended/Diabetes: Foot Exam-pended/Depression Monitoring-NEEDS DONE/Influenza Vaccine-had completed/) Diabetes-patient currently does not have CGM. There is issues with her insurance covering it and off. She states she is going to reach out to the [employer] and see if they will be able to assist. She has not been checking her blood sugars because she did not have the right testing strips for the meter. She did get them yesterday and her glucose last night was around 206. She previously was on U-500 insulin but it is no longer covered so she has not had it in a couple months. She states that she has been been using less and less of it as she has lost quite a bit of weight over the past year or so. She was recently started on glimepiride 2 mg daily and denies any hypoglycemic episodes on the medication. Eye exam- needs done- been a couple years. CPAP- does not have one- has not had one for a couple years. Will need new sleep study. B12 deficiency-patient was on B12 injections over a year ago and reports not having any for quite some time. Reports fatigue and mild numbness in her feet intermittently. Depression and anxiety-reports mood has been not great since having increased stressors with her 's hospitalizations and his health issues. She works many hours. They are having difficulty meeting this month's rent and are worried about being evicted. Has had difficulty paying for her medications and worries about co-pays with specialists and here. Cirrhosis of the liver-this was found with some ascites during a previous hospitalization a year ago. She was supposed to follow-up with a prep person for further evaluation however patient has not done so Medication Sig Start Date End Date Taking? Authorizing Provider albuterol 108 (90 Base) MCG/ACT inhaler Inhale 1 puff every 6 hours as needed for wheezing or shortness of breath. 08/26/23 Yes NICOLE Easley CNP buPROPion XL (Wellbutrin XL) 300 MG 24 hr tablet Take 1 tablet (300 mg) by mouth daily. Do not crush, chew, or split. 03/02/24 Yes NICOLE Easley CNP busPIRone (Buspar) 10 MG tablet Take 1 tablet by mouth twice daily 05/29/24 Yes Scar Seymour APRN - [facility] glimepiride (Amaryl) 2 MG tablet Take 1 tablet (2 mg) by mouth daily (with breakfast). 06/30/24 Yes NICOLE Mishra CNP labetalol (Normodyne) 100 MG tablet TAKE 1 TABLET BY MOUTH IN THE MORNING AND 1 TAB IN THE EVENING 05/29/24 Yes NICOLE Easley CNP metFORMIN (Glucophage) 1000 MG tablet TAKE 1 TABLET BY MOUTH IN THE MORNING AND 1 TABLET IN THE EVENING. TAKE WITH FOOD. 07/19/24 Yes See Ricketts MD nystatin (Mycostatin) 178831 UNIT/GM powder Apply topically 2 times daily. 02/26/24 02/25/25 Yes Nelson Grady MD Unifine Pentips 31G X 8 MM misc Use as directed with insulin pen 05/29/24 Yes NICOLE Easley CNP aspirin 81 MG EC tablet Take 81 mg by mouth daily. Patient not taking: Reported on 08/01/2024 Historical Provider, Cyanocobalamin (B-12 Compliance Injection) 1000 MCG/ML kit Inject 1 ml (1000mcg) subcutaneous weekly x 4 then monthly Patient not taking: Reported on 08/01/2024 10/13/23 Angel Juan MD cyanocobalamin (Vitamin B-12) 1000 MCG/ML injection INJECT 1 ML SUBCUTANEOUSLY ONCE A WEEK FOR 28 DAYS THEN MONTHLY Patient not taking: Reported on 08/01/2024 10/13/23 Historical Provider, glucagon (Gvoke HypoPen) 1 MG/0.2ML injection Inject 0.2 mL (1 mg) under the skin Once as needed for low blood sugar. Patient not taking: Reported on 08/01/2024 10/14/23 10/13/24 NICOLE Easley CNP hydrOXYzine HCl (Atarax) 25 MG tablet Take 1 tablet (25 mg) by mouth every 8 hours as needed for anxiety. Patient not taking: Reported on 08/01/2024 08/26/23 NICOLE Easley CNP Review of Systems Constitutional: Positive for fatigue (feels down). Negative for activity change, appetite change (flucuates), chills, diaphoresis, fever and unexpected weight change. HENT: Negative. Respiratory: Negative. Cardiovascular: Negative. Gastrointestinal: Positive for abdominal pain (reports intermittent abdominal pain), diarrhea (occasional) and nausea (intermittenly occasional). Negative for constipation and vomiting. Genitourinary: Negative for difficulty urinating. Musculoskeletal: Positive for arthralgias and neck pain (Reports mostly left-sided neck pain and tension.). Neurological: Positive for light-headedness (occasional) and headaches (from my neck). Negative for dizziness. Psychiatric/Behavioral: Positive for dysphoric mood and sleep disturbance. Negative for agitation, decreased concentration, self-injury and suicidal ideas. The patient is nervous/anxious. Vitals: 08/01/24 0735 BP: 137/81 Pulse: 72 Resp: 18 Temp: 36.1 C (96.9 F) TempSrc: Infrared SpO2: 94% Weight: 270 lb (122 kg) Physical Exam Constitutional: General: She is not in acute distress. Appearance: Normal appearance. She is obese. She is not ill-appearing. HENT: Head: Normocephalic and atraumatic. Right Ear: Tympanic membrane normal. Left Ear: Tympanic membrane normal. Nose: Nose normal. Mouth/Throat: Mouth: Mucous membranes are moist. Pharynx: Oropharynx is clear. No posterior oropharyngeal erythema. Neck: Cardiovascular: Rate and Rhythm: Normal rate and regular rhythm. Pulses: Normal pulses. Heart sounds: Normal heart sounds. Pulmonary: Effort: Pulmonary effort is normal. Breath sounds: Normal breath sounds. Musculoskeletal: Cervical back: Tenderness present. Lymphadenopathy: Cervical: No cervical adenopathy. Neurological: Mental Status: She is alert. An electronic signature was used to authenticate this note. NICOLE Balbuena CNP 08/01/2024 5:10 PM documented in this encounter [facility] 08-01-2024 Instructions NICOLE Easley CNP - 08/01/2024 7:20 AM EST Goals for 2024 Call Hardik regarding CGM (glucose meter) Diabetes under control B12 good- will check in 3 months Sleep study Liver evaluation Let me know when or if you get the mounjaro. Check glucose fasting and 2 hours after meals - send readings through [facility] in 1-2 weeks. The following attachments cannot be sent through [facility].Neck Stretches (Maldivian)documented in this encounter [facility] 06-30-2024 History of Present illness Narrative Called and spoke with Raiza. Offered appointment Wednesday next week and declined stating she will be in [place] with her who is getting testing done. Will send in for some Glimepiride for her to take to help bring blood sugars down. Informed her she should be seen in the ER if glucose readings remain high for her safety. Stressed the importance of following up in the office. Raiza was alert and oriented. Was speaking in complete sentences. No signs of distress or disorientation. documented in this encounter [facility] 05-29-2024 Telephone encounter Note Reviewed chart. Refill appropriate. RX sent. [facility] 05-29-2024 Miscellaneous Notes Reviewed chart. Refill appropriate. RX sent. Prescription Request: Last medication check: 11/11/2023 Last physical exam: 08/26/2023 Next scheduled appointment: none Last date of refill on this medication: 08/26/2023 documented in this encounter [facility] 05-29-2024 Telephone encounter Note Prescription Request: Last medication check: 11/11/2023 Last physical exam: 08/26/2023 Next scheduled appointment: none Last date of refill on this medication: 01/03/2024 [facility] 05-29-2024 Miscellaneous Notes Prescription Request: Last medication check: 11/11/2023 Last physical exam: 08/26/2023 Next scheduled appointment: none Last date of refill on this medication: 01/03/2024 documented in this encounter [facility] 05-29-2024 Telephone encounter Note Prescription Request: Last medication check: 11/11/2023 Last physical exam: 08/26/2023 Next scheduled appointment: none Last date of refill on this medication: 08/26/2023 [facility] 03-02-2024 Telephone encounter Note Reviewed chart. Refill appropriate. RX sent. [facility] 03-02-2024 Miscellaneous Notes Reviewed chart. Refill appropriate. RX sent. Prescription Request: Last medication check: 11/11/23 Last physical exam: 08/26/23 Next scheduled appointment: none Last date of refill on this medication 08/26/23 documented in this encounter [facility] 03-02-2024 Telephone encounter Note Prescription Request: Last medication check: 11/11/23 Last physical exam: 08/26/23 Next scheduled appointment: none Last date of refill on this medication 08/26/23 [facility] 02-26-2024 Emergency department Note EMERGENCY DEPARTMENT ENCOUNTER Pt Name: Raiza Carey Birthdate 1965 Date of evaluation: 02/26/2024 ED Provider: Nelson Grady MD CHIEF COMPLAINT Chief Complaint Patient presents with Rash Pt presents to ED with c/o rash to undercarriage x2 days. States there is drainage and redness. Reports pain. Has tried vagisil and powder with no relief. Reports this normally clears it up. HISTORY OF PRESENT ILLNESS (Location/Symptom, Timing/Onset, Context/Setting, Quality, Duration, Modifying Factors, Severity) Note limiting factors. I wore appropriate PPE for the entirety of this encounter. HPI Raiza Carey is a 58 y.o. who presents to the emergency department with chief complaint of itchy, irritated skin in the skin folds under the stomach near the groin. Patient states that has been ongoing for the last 2 days. She states that she does not have any AC in the home and has a lot of sweating in the area. She states she has had recurrent fungal infections in these areas which typically responds to a topical agent though, despite applying this agent for the last 2 days, does not seem to be getting any better. She denies any other complaints. Nursing Notes were reviewed. Limitations to history: None Outside historians: None REVIEW OF SYSTEMS Review of Systems All other systems reviewed and are negative. Pertinent positives and negatives as per HPI. PAST MEDICAL HISTORY Past Medical History: Diagnosis Date Anxiety Arthritis Chest pain Depression Diabetic nephropathy (CMS/HCC) (HCC) Elevated transaminase level Fatigue GERD (gastroesophageal reflux disease) Headache(784.0) Hemorrhoids Hyperlipidemia Hypertension Low back pain Neuropathic pain Obesity DONNA (obstructive sleep apnea) Rectal bleed Right leg weakness Trochanteric bursitis of left hip Bilateral Type II or unspecified type diabetes mellitus without mention of complication, not stated as uncontrolled (HCC) Uncontrolled type 2 diabetes mellitus with complication 02/19/2015 SURGICAL HISTORY Past Surgical History: Procedure Laterality Date CARDIAC CATHETERIZATION 06/03/2018 CARPAL TUNNEL RELEASE CHOLECYSTECTOMY COLONOSCOPY 2011 ENDOMETRIAL ABLATION HERNIA REPAIR TONSILLECTOMY AND ADENOIDECTOMY (HISTORICAL) CURRENT MEDICATIONS Previous Medications ALBUTEROL 108 (90 BASE) MCG/ACT INHALER Inhale 1 puff every 6 hours as needed for wheezing or shortness of breath. ASPIRIN 81 MG EC TABLET Take 81 mg by mouth daily. BUPROPION XL (WELLBUTRIN XL) 300 MG 24 HR TABLET Take 1 tablet (300 mg) by mouth daily. Do not crush, chew, or split. BUSPIRONE (BUSPAR) 10 MG TABLET Take 1 tablet (10 mg) by mouth 2 times daily. CONTINUOUS GLUCOSE BREAKER BOSS (FREESTYLE LINDA 3 READER) DEVICE 1 Device daily. CONTINUOUS GLUCOSE SENSOR (FREESTYLE LINDA 3 SENSOR) MISC every 14 (fourteen) days. CYANOCOBALAMIN (B-12 COMPLIANCE INJECTION) 1000 MCG/ML KIT Inject 1 ml (1000mcg) subcutaneous weekly x 4 then monthly CYANOCOBALAMIN (VITAMIN B-12) 1000 MCG/ML INJECTION INJECT 1 ML SUBCUTANEOUSLY ONCE A WEEK FOR 28 DAYS THEN MONTHLY GLUCAGON (GVOKE HYPOPEN) 1 MG/0.2ML INJECTION Inject 0.2 mL (1 mg) under the skin Once as needed for low blood sugar. HUMULIN R U-500 KWIKPEN 500 UNIT/ML CONCENTRATED INJECTION Inject 20 Units under the skin in the morning and 20 Units in the evening. Inject before meals. HYDROXYZINE HCL (ATARAX) 25 MG TABLET Take 1 tablet (25 mg) by mouth every 8 hours as needed for anxiety. LABETALOL (NORMODYNE) 100 MG TABLET Take 1 tablet (100 mg) by mouth in the morning and 1 tablet (100 mg) in the evening. METFORMIN (GLUCOPHAGE) 1000 MG TABLET Take 1 tablet (1,000 mg) by mouth in the morning and 1 tablet (1,000 mg) in the evening. Take with meals. UNIFINE PENTIPS 31G X 8 MM MISC Use as directed with insulin pen ALLERGIES Cat hair extract, Lisinopril, and Pollen extract FAMILY HISTORY Family History Problem Relation Name Age of Onset Diabetes Mother Heart disease Father Cancer Father prostate High Blood Pressure Father Other ([id number]) Sister TBI Depression Mother Substance Abuse Brother Heart disease Mother Other ([id number]) Mother Depression Brother SOCIAL HISTORY Social History Socioeconomic History Marital status: Tobacco Use Smoking status: Former Current packs/day: 0.00 Types: Cigarettes Quit date: 09/01/2013 Years since quittin.4 Smokeless tobacco: Never Substance and Sexual Activity Alcohol use: Not Currently Alcohol/week: 0.0 standard drinks of alcohol Drug use: No Social Determinants of Health Financial Resource Strain: High Risk (12/30/2022) Overall Financial Resource Strain (CARDIA) Difficulty of Paying Living Expenses: Very hard Food Insecurity: No Food Insecurity (02/11/2023) Hunger Vital Sign Worried About Running Out of Food in the Last Year: Never true Ran Out of Food in the Last Year: Never true Transportation Needs: No Transportation Needs (12/30/2022) PRAPARE - Transportation Lack of Transportation (Medical): No Lack of Transportation (Non-Medical): No Physical Activity: Inactive (02/11/2023) Exercise Vital Sign Days of Exercise per Week: 0 days Minutes of Exercise per Session: 0 min Housing Stability: Low Risk (02/11/2023) Housing Stability Vital Sign Unable to Pay for Housing in the Last Year: No Number of Places Lived in the Last Year: 2 Unstable Housing in the Last Year: No SCREENINGS PHYSICAL EXAM ED Triage Vitals [02/26/24 0809] Temp Heart Rate Resp BP 36.5 C (97.7 F) 80 12 (!) 170/94 SpO2 Temp Source Heart Rate Source Patient Position 96 % Temporal Monitor -- BP Location FiO2 (%) -- -- Physical Exam Vitals and nursing note reviewed. Exam conducted with a mechanical repair worker present. Constitutional: General: She is not in acute distress. Appearance: She is obese. She is not ill-appearing. HENT: Nose: Nose normal. Eyes: Conjunctiva/sclera: Conjunctivae normal. Cardiovascular: Rate and Rhythm: Normal rate. Pulmonary: Effort: Pulmonary effort is normal. Skin: General: Skin is warm and dry. Comments: Intertriginous rash underneath the lower abdominal panniculus extending into the groin. No evidence of overlying cellulitis. Skin is intact. Neurological: Mental Status: She is alert and oriented to person, place, and time. Psychiatric: Mood and Affect: Mood normal. Behavior: Behavior normal. DIAGNOSTIC RESULTS Procedures/EKG: EKG was reviewed by myself. Physician EKG interpretation can be found in [facility] RADIOLOGY (Per Emergency Physician): Interpretation per the Radiologist below, if available at the time of this note: No orders to display ED BEDSIDE ULTRASOUND: Performed by ED Physician - none LABS: Labs Reviewed - No data to display All other labs were within normal range or not returned as of this dictation. EMERGENCY DEPARTMENT COURSE and DIFFERENTIAL DIAGNOSIS/MDM: Vitals: Vitals: 02/26/24 0808 02/26/24 0809 BP: (!) 170/94 Pulse: 80 Resp: 12 Temp: 36.5 C (97.7 F) TempSrc: Temporal SpO2: 96% Weight: 122 kg (270 lb) 122 kg (270 lb) Patient presents for evaluation of an itchy, red rash in the groin and under the panniculus. On physical exam she does appear to have intertrigo fungal infection under the panniculus and in the groin. No evidence of superinfection with cellulitis. Skin is intact. No abscesses or other concerning findings. Patient has been using topical agents at home with no significant improvement. These have been dnkz-det-bmfauum agents. Patient be discharged home with a prescription for both nystatin powder and as well as fluconazole to be taken over the next week as she has had difficult to treat intertrigo in the past. Patient encouraged to follow-up with primary care. Return precautions were discussed and questions answered at the bedside prior to discharge. Diagnoses as of 02/26/24 0825 Intertrigo Medications - No data to display REVAL: CRITICAL CARE TIME None CONSULTS: None PROCEDURES: Unless otherwise noted below, none Procedures Patients symptoms are consistent with sepsis, severe sepsis, or septic shock (If yes use .sepsiscoremeasure): No FINAL IMPRESSION 1. Intertrigo DISPOSITION Discharge 02/26/2024 08:20:57 AM PATIENT REFERRED TO: See Ricketts MD [facility] [facility] [address] Schedule an appointment as soon as possible for a visit [facility] [address] [facility] [id number] If symptoms worsen DISCHARGE MEDICATIONS: New Prescriptions FLUCONAZOLE (DIFLUCAN) 100 MG TABLET Take 1 tablet (100 mg) by mouth daily for 7 days. NYSTATIN (MYCOSTATIN) [id number] UNIT/GM POWDER Apply topically 2 times daily. (Comment: Please note this report has been produced using speech recognition software and may contain errors related to that system including errors in grammar, punctuation, and spelling, as well as words and phrases that may be inappropriate. If there are any questions or concerns please feel free to contact the dictating provider for clarification.) Nelson Grady MD (electronically signed) Emergency Medicine Provider Nelson Grady MD 02/26/24825 documented in this encounter [facility] 02-26-2024 Physician Emergency department Note EMERGENCY DEPARTMENT ENCOUNTER Pt Name: Raiza Carey Birthdate 1965 Date of evaluation: 02/26/2024 ED Provider: Nelson Grady MD CHIEF COMPLAINT Chief Complaint Patient presents with Rash Pt presents to ED with c/o rash to undercarriage x2 days. States there is drainage and redness. Reports pain. Has tried vagisil and powder with no relief. Reports this normally clears it up. HISTORY OF PRESENT ILLNESS (Location/Symptom, Timing/Onset, Context/Setting, Quality, Duration, Modifying Factors, Severity) Note limiting factors. I wore appropriate PPE for the entirety of this encounter. HPI Raiza Carey is a 58 y.o. who presents to the emergency department with chief complaint of itchy, irritated skin in the skin folds under the stomach near the groin. Patient states that has been ongoing for the last 2 days. She states that she does not have any AC in the home and has a lot of sweating in the area. She states she has had recurrent fungal infections in these areas which typically responds to a topical agent though, despite applying this agent for the last 2 days, does not seem to be getting any better. She denies any other complaints. Nursing Notes were reviewed. Limitations to history: None Outside historians: None REVIEW OF SYSTEMS Review of Systems All other systems reviewed and are negative. Pertinent positives and negatives as per HPI. PAST MEDICAL HISTORY Past Medical History: Diagnosis Date Anxiety Arthritis Chest pain Depression Diabetic nephropathy (CMS/HCC) (HCC) Elevated transaminase level Fatigue GERD (gastroesophageal reflux disease) Headache(784.0) Hemorrhoids Hyperlipidemia Hypertension Low back pain Neuropathic pain Obesity DONNA (obstructive sleep apnea) Rectal bleed Right leg weakness Trochanteric bursitis of left hip Bilateral Type II or unspecified type diabetes mellitus without mention of complication, not stated as uncontrolled (HCC) Uncontrolled type 2 diabetes mellitus with complication 02/19/2015 SURGICAL HISTORY Past Surgical History: Procedure Laterality Date CARDIAC CATHETERIZATION 06/03/2018 CARPAL TUNNEL RELEASE CHOLECYSTECTOMY COLONOSCOPY 2011 ENDOMETRIAL ABLATION HERNIA REPAIR TONSILLECTOMY AND ADENOIDECTOMY (HISTORICAL) CURRENT MEDICATIONS Previous Medications ALBUTEROL 108 (90 BASE) MCG/ACT INHALER Inhale 1 puff every 6 hours as needed for wheezing or shortness of breath. ASPIRIN 81 MG EC TABLET Take 81 mg by mouth daily. BUPROPION XL (WELLBUTRIN XL) 300 MG 24 HR TABLET Take 1 tablet (300 mg) by mouth daily. Do not crush, chew, or split. BUSPIRONE (BUSPAR) 10 MG TABLET Take 1 tablet (10 mg) by mouth 2 times daily. CONTINUOUS GLUCOSE BREAKER BOSS (FREESTYLE LINDA 3 READER) DEVICE 1 Device daily. CONTINUOUS GLUCOSE SENSOR (FREESTYLE LINDA 3 SENSOR) MISC every 14 (fourteen) days. CYANOCOBALAMIN (B-12 COMPLIANCE INJECTION) 1000 MCG/ML KIT Inject 1 ml (1000mcg) subcutaneous weekly x 4 then monthly CYANOCOBALAMIN (VITAMIN B-12) 1000 MCG/ML INJECTION INJECT 1 ML SUBCUTANEOUSLY ONCE A WEEK FOR 28 DAYS THEN MONTHLY GLUCAGON (GVOKE HYPOPEN) 1 MG/0.2ML INJECTION Inject 0.2 mL (1 mg) under the skin Once as needed for low blood sugar. HUMULIN R U-500 KWIKPEN 500 UNIT/ML CONCENTRATED INJECTION Inject 20 Units under the skin in the morning and 20 Units in the evening. Inject before meals. HYDROXYZINE HCL (ATARAX) 25 MG TABLET Take 1 tablet (25 mg) by mouth every 8 hours as needed for anxiety. LABETALOL (NORMODYNE) 100 MG TABLET Take 1 tablet (100 mg) by mouth in the morning and 1 tablet (100 mg) in the evening. METFORMIN (GLUCOPHAGE) 1000 MG TABLET Take 1 tablet (1,000 mg) by mouth in the morning and 1 tablet (1,000 mg) in the evening. Take with meals. UNIFINE PENTIPS 31G X 8 MM MISC Use as directed with insulin pen ALLERGIES Cat hair extract, Lisinopril, and Pollen extract FAMILY HISTORY Family History Problem Relation Name Age of Onset Diabetes Mother Heart disease Father Cancer Father prostate High Blood Pressure Father Other ([id number]) Sister TBI Depression Mother Substance Abuse Brother Heart disease Mother Other ([id number]) Mother Depression Brother SOCIAL HISTORY Social History Socioeconomic History Marital status: Tobacco Use Smoking status: Former Current packs/day: 0.00 Types: Cigarettes Quit date: 09/01/2013 Years since quittin.4 Smokeless tobacco: Never Substance and Sexual Activity Alcohol use: Not Currently Alcohol/week: 0.0 standard drinks of alcohol Drug use: No Social Determinants of Health Financial Resource Strain: High Risk (12/30/2022) Overall Financial Resource Strain (CARDIA) Difficulty of Paying Living Expenses: Very hard Food Insecurity: No Food Insecurity (02/11/2023) Hunger Vital Sign Worried About Running Out of Food in the Last Year: Never true Ran Out of Food in the Last Year: Never true Transportation Needs: No Transportation Needs (12/30/2022) PRAPARE - Transportation Lack of Transportation (Medical): No Lack of Transportation (Non-Medical): No Physical Activity: Inactive (02/11/2023) Exercise Vital Sign Days of Exercise per Week: 0 days Minutes of Exercise per Session: 0 min Housing Stability: Low Risk (02/11/2023) Housing Stability Vital Sign Unable to Pay for Housing in the Last Year: No Number of Places Lived in the Last Year: 2 Unstable Housing in the Last Year: No SCREENINGS PHYSICAL EXAM ED Triage Vitals [02/26/24 0809] Temp Heart Rate Resp BP 36.5 C (97.7 F) 80 12 (!) 170/94 SpO2 Temp Source Heart Rate Source Patient Position 96 % Temporal Monitor -- BP Location FiO2 (%) -- -- Physical Exam Vitals and nursing note reviewed. Exam conducted with a mechanical repair worker present. Constitutional: General: She is not in acute distress. Appearance: She is obese. She is not ill-appearing. HENT: Nose: Nose normal. Eyes: Conjunctiva/sclera: Conjunctivae normal. Cardiovascular: Rate and Rhythm: Normal rate. Pulmonary: Effort: Pulmonary effort is normal. Skin: General: Skin is warm and dry. Comments: Intertriginous rash underneath the lower abdominal panniculus extending into the groin. No evidence of overlying cellulitis. Skin is intact. Neurological: Mental Status: She is alert and oriented to person, place, and time. Psychiatric: Mood and Affect: Mood normal. Behavior: Behavior normal. DIAGNOSTIC RESULTS Procedures/EKG: EKG was reviewed by myself. [facility] RADIOLOGY (Per Emergency Physician): Interpretation per the Radiologist below, if available at the time of this note: No orders to display ED BEDSIDE ULTRASOUND: Performed by ED Physician - none LABS: Labs Reviewed - No data to display All other labs were within normal range or not returned as of this dictation. EMERGENCY DEPARTMENT COURSE and DIFFERENTIAL DIAGNOSIS/MDM: Vitals: Vitals: 02/26/24 0808 02/26/24 0809 BP: (!) 170/94 Pulse: 80 Resp: 12 Temp: 36.5 C (97.7 F) TempSrc: Temporal SpO2: 96% Weight: 122 kg (270 lb) 122 kg (270 lb) Patient presents for evaluation of an itchy, red rash in the groin and under the panniculus. On physical exam she does appear to have intertrigo fungal infection under the panniculus and in the groin. No evidence of superinfection with cellulitis. Skin is intact. No abscesses or other concerning findings. Patient has been using topical agents at home with no significant improvement. These have been flsg-ibs-doekiqy agents. Patient be discharged home with a prescription for both nystatin powder and as well as fluconazole to be taken over the next week as she has had difficult to treat intertrigo in the past. Patient encouraged to follow-up with primary care. Return precautions were discussed and questions answered at the bedside prior to discharge. Diagnoses as of 02/26/24 0825 Intertrigo Medications - No data to display REVAL: CRITICAL CARE TIME None CONSULTS: None PROCEDURES: Unless otherwise noted below, none Procedures Patients symptoms are consistent with sepsis, severe sepsis, or septic shock (If yes use .sepsiscoremeasure): No FINAL IMPRESSION 1. Intertrigo DISPOSITION Discharge 02/26/2024 08:20:57 AM PATIENT REFERRED TO: See Ricketts [facility] [address] [facility] [facility] [place] [address] Schedule an appointment as soon as possible for a visit [facility] [address] [facility] [id number] If symptoms worsen DISCHARGE MEDICATIONS: New Prescriptions FLUCONAZOLE (DIFLUCAN) 100 MG TABLET Take 1 tablet (100 mg) by mouth daily for 7 days. NYSTATIN (MYCOSTATIN) 549217 UNIT/GM POWDER Apply topically 2 times daily. (Comment: Please note this report has been produced using speech recognition software and may contain errors related to that system including errors in grammar, punctuation, and spelling, as well as words and phrases that may be inappropriate. If there are any questions or concerns please feel free to contact the dictating provider for clarification.) Nelson Grady MD (electronically signed) Emergency Medicine Provider Nelson Grady MD 02/26/24825 [facility] 02-19-2024 Emergency department Note Discharge instructions reviewed with patient. Medications, treatments, and follow up appointments discussed. IV removed. Medications completed. VS stable. All questions answered. Patient verbalized understanding. Kandis Belcher RN 02/19/241924 [facility] 02-19-2024 Emergency department Note Discharge instructions reviewed with patient. Medications, treatments, and follow up appointments discussed. IV removed. Medications completed. VS stable. All questions answered. Patient verbalized understanding. Kandis Belcher RN 02/19/241924 [facility] not needed per provider Tiffany Aggarwal, originally done as baseline. OK to discontinue. Order not found. Provider aware. Kandis Belcher RN 02/19/241721 Pt was seen in the ED for headache and neck pain, reporting that she is unable to move her neck. Pt was able to walk to the bathroom independently and drink fluids without difficulty. Pt was watching TV on cell phone with significant other. Pt received medication and said it was somewhat effective, but rated pain as 2-3/10 as headache. Able to move all extremities and rotate head and neck without difficulty. Pt A&O x4, VS stable, resp easy non labored. Kandis Belcher RN 02/19/241924 Patient presents for head and neck pain that started yesterday evening. States she can barely move her neck due to pain. States the last time she had a headache this bad was several years ago when she had COVID. Denies known injury. States she has been taking Tylenol without relief of symptoms. documented in this encounter [facility] 02-19-2024 Hospital Discharge instructions NICOLE Saleh CNP - 02/19/2024 3:34 PM EDT In the medical field, there is always a level of diagnostic uncertainty, even if this uncertainty is low. For this reason, it is important to immediately return to the emergency department if you have any new symptoms, worsening symptoms, change of symptoms, or if you have any other concerns. We would be happy to re-evaluate you. Otherwise, please take your medications as prescribed and follow-up as recommended. The following attachments cannot be sent through Care Everywhere.Headache Discharge Instructions, Adult (Maldivian)documented in this encounter [facility] 02-19-2024 Emergency department Note NIH not needed per provider Tiffany Aggarwal, originally done as baseline. OK to discontinue. Order not found. Provider aware. Kandis Belcher RN 02/19/24 1722 [facility] 02-19-2024 Emergency department Note Pt was seen in the ED for headache and neck pain, reporting that she is unable to move her neck. Pt was able to walk to the bathroom independently and drink fluids without difficulty. Pt was watching TV on cell phone with significant other. Pt received medication and said it was somewhat effective, but rated pain as 2-3/10 as headache. Able to move all extremities and rotate head and neck without difficulty. Pt A&O x4, VS stable, resp easy non labored. Kandis Belcher RN 02/19/241924 [facility] 02-19-2024 Emergency department Triage note Patient presents for head and neck pain that started yesterday evening. States she can barely move her neck due to pain. States the last time she had a headache this bad was several years ago when she had COVID. Denies known injury. States she has been taking Tylenol without relief of symptoms. [facility] 01-03-2024 Telephone encounter Note Reviewed chart. Refill appropriate. RX sent. [facility] 01-03-2024 Miscellaneous Notes Reviewed chart. Refill appropriate. RX sent. Prescription Request: Last medication check: not found Last physical exam: 08/26/2023 Last completed appointment: 11/11/2023 Next scheduled appointment: none Last date of refill on this medication: Buspar: 08/26/2023 w/3 refills Metformin: 10/13/2023 w/3 refills Labetalol: 08/26/2023 w/3 refills documented in this encounter [facility] 01-03-2024 Telephone encounter Note Prescription Request: Last medication check: not found Last physical exam: 08/26/2023 Last completed appointment: 11/11/2023 Next scheduled appointment: none Last date of refill on this medication: Buspar: 08/26/2023 w/3 refills Metformin: 10/13/2023 w/3 refills Labetalol: 08/26/2023 w/3 refills [facility] 12-23-2023 History of Present illness Narrative This patient is currently on insulin, has had several hypoglycemic events and comtinues to be denied CGM through pharmacy, is this something or a plan that could be covered by TMS? Provider had face to face visit with patient and requests a CGM be sent to pharmacy, chart reviewed and patient has used CGM device in the past. Order sent to pharmacy per [place] guidelines, may require PA documented in this encounter [facility] 12-13-2023 Hospital Discharge instructions Vani Salas PA-C - 12/13/2023 8:20 PM EDT Please continue to check your glucose often at home, and return to ED if you have any new or worsening symptoms or concerns. As we discussed in the ED, complex carbs can help to manage this episodic hypoglycemia, but we recommend you follow-up with endocrinology for further evaluation and recommendations regarding your diabetes, as it seems it has been highly fluctuant over the last couple of months. Please follow-up with them for further evaluation and recommendations, and return to the ED if you have any new or worsening symptoms. The following attachments cannot be sent through Care Everywhere.Low Blood Sugar Discharge Instructions, Adult (Maldivian)Low Blood Sugar in People With Diabetes (Maldivian)documented in this encounter [facility] [employer] 12-13-2023 Emergency department Note Emergency Department Encounter [facility] ED Patient: Melanie Carey : 1965 Date of Evaluation: 12/13/2023 ED Supervising Physician: Victorino Akins MD I personally evaluated Melanie Carey and made/approved the management plan and take responsibility for the patient management. This will serve as my Supervisory note and shared attestation. I did perform a substantive portion of the visit including all aspects of the Medical Decision Making. I wore appropriate PPE for the entirety of this encounter. In brief, Raiza Carey is a 58 y.o. that presents to the emergency department hyperglycemia. Patient did have a history of hypoglycemia in the past. Patient takes short acting insulin at home. Patient denies any fevers or chills. No chest pain or shortness of breath. Patient did he denies pain, with improvement in symptoms. Patient is present with her who also provides further history indicates close eye on patient. Patient has no complaints at this time states that she otherwise feels well. Patient is active bleeding. Focused exam: Physical Exam Vitals and nursing note reviewed. Constitutional: General: She is not in acute distress. Appearance: Normal appearance. She is well-developed. HENT: Head: Normocephalic and atraumatic. Eyes: Conjunctiva/sclera: Conjunctivae normal. Cardiovascular: Rate and Rhythm: Normal rate and regular rhythm. Heart sounds: No murmur heard. Pulmonary: Effort: Pulmonary effort is normal. No respiratory distress. Breath sounds: Normal breath sounds. Musculoskeletal: General: No swelling. Skin: General: Skin is warm and dry. Neurological: Mental Status: She is alert and oriented to person, place, and time. Psychiatric: Mood and Affect: Mood norm Brief ED course/MDM: Patient presents for an episode of hypoglycemia. Patient has a differential that includes but is not limited to hypoglycemia, electrolyte abnormality. Patient was clinically appears well and will be discharged home. Patient was given complex carbs.. Patient was educated on the importance of taking complex carbs. Patient will follow-up with endocrinology. Patient's sugar was 70 and had to repeat sugars today but will be discharged home. Diagnostics interpreted by me: none I personally saw the patient and made/approved the management plan and take responsibility for the patient management. I personally discussed the patient's management with other clinicians: none All diagnostic, treatment, and disposition decisions were made by myself in conjunction with the [facility]. For all further details of the patient's emergency department visit, please see their documentation. (Comment: Please note this report has been produced using speech recognition software and may contain errors related to that system including errors in grammar, punctuation, and spelling, as well as words and phrases that may be inappropriate. If there are any questions or concerns please feel free to contact the dictating provider for clarification.) Victorino Akins MD [facility] Victorino Akins MD 12/13/231957 Patient endorses recurrent hypoglycemia despite taking glucose tabs. BGC: 80mg/dL in triage. Provided orange juice at this time. documented in this encounter [facility] 12-13-2023 Emergency department Triage note Patient endorses recurrent hypoglycemia despite taking glucose tabs. BGC: 80mg/dL in triage. Provided orange juice at this time. [facility] 12-13-2023 Physician Emergency department Note Emergency Department Encounter [facility] ED Patient: Melanie Carey : 1965 Date of Evaluation: 12/13/2023 ED Supervising Physician: Victorino Akins MD I personally evaluated Melanie Carey and made/approved the management plan and take responsibility for the patient management. This will serve as my Supervisory note and shared attestation. I did perform a substantive portion of the visit including all aspects of the Medical Decision Making. I wore appropriate PPE for the entirety of this encounter. In brief, Raiza Carey is a 58 y.o. that presents to the emergency department hyperglycemia. Patient did have a history of hypoglycemia in the past. Patient takes short acting insulin at home. Patient denies any fevers or chills. No chest pain or shortness of breath. Patient did he denies pain, with improvement in symptoms. Patient is present with her who also provides further history indicates close eye on patient. Patient has no complaints at this time states that she otherwise feels well. Patient is active bleeding. Focused exam: Physical Exam Vitals and nursing note reviewed. Constitutional: General: She is not in acute distress. Appearance: Normal appearance. She is well-developed. HENT: Head: Normocephalic and atraumatic. Eyes: Conjunctiva/sclera: Conjunctivae normal. Cardiovascular: Rate and Rhythm: Normal rate and regular rhythm. Heart sounds: No murmur heard. Pulmonary: Effort: Pulmonary effort is normal. No respiratory distress. Breath sounds: Normal breath sounds. Musculoskeletal: General: No swelling. Skin: General: Skin is warm and dry. Neurological: Mental Status: She is alert and oriented to person, place, and time. Psychiatric: Mood and Affect: Mood norm Brief ED course/MDM: Patient presents for an episode of hypoglycemia. Patient has a differential that includes but is not limited to hypoglycemia, electrolyte abnormality. Patient was clinically appears well and will be discharged home. Patient was given complex carbs.. Patient was educated on the importance of taking complex carbs. Patient will follow-up with endocrinology. Patient's sugar was 70 and had to repeat sugars today but will be discharged home. Diagnostics interpreted by me: none I personally saw the patient and made/approved the management plan and take responsibility for the patient management. I personally discussed the patient's management with other clinicians: none All diagnostic, treatment, and disposition decisions were made by myself in conjunction with the [facility]. For all further details of the patient's emergency department visit, please see their documentation. (Comment: Please note this report has been produced using speech recognition software and may contain errors related to that system including errors in grammar, punctuation, and spelling, as well as words and phrases that may be inappropriate. If there are any questions or concerns please feel free to contact the dictating provider for clarification.) Victorino Akins MD [employer] Victorino Akins MD 12/13/231957 [employer] Phone: 12-04-2023 Emergency department Note [facility] ED eMERGENCY dEPARTMENT eNCOUnter Pt Name: Melanie Carey Birthdate 1965 Date of evaluation: 12/04/2023 Provider: Jahaira Hankins PA-C CHIEF COMPLAINT Chief Complaint Patient presents with Hypoglycemia Patient reports her blood glucose has been running high and then it dropped after insulin. CBG 133 in triage. HISTORY OF PRESENT ILLNESS (Location/Symptom, Timing/Onset,Context/Setting, Quality, Duration, Modifying Factors, Severity) Note limiting factors. HPI Melanie Carey is a 58 y.o. female who presents to the emergency department complaining of hypoglycemia. Patient states that she is a type II diabetic on insulin. She took her normal dose of insulin today after her readings have been running high. She states that her insulin dropped her sugar down to 77. They stopped and got an eye screen: And came into the emergency department. Patient presents with a fonxa-qx-tujl glucose of 133. She got concerned as she was hospitalized back in October with critically low low hypoglycemia and altered mental status and ended up being admitted to the hospital. Nursing Notes were reviewed. REVIEW OF SYSTEMS (2+ for4; 10+ for level 5) Review of Systems Constitutional: Negative for chills and fever. HENT: Negative for ear pain and sore throat. Eyes: Negative for pain and visual disturbance. Respiratory: Negative for cough and shortness of breath. Cardiovascular: Negative for chest pain and palpitations. Gastrointestinal: Negative for abdominal pain and vomiting. Genitourinary: Negative for dysuria and hematuria. Musculoskeletal: Negative for arthralgias and back pain. Skin: Negative for color change and rash. Neurological: Negative for seizures and syncope. All other systems reviewed and are negative. PAST MEDICAL HISTORY Past Medical History: Diagnosis Date Anxiety Arthritis Chest pain Depression Diabetic nephropathy (CMS/HCC) (HCC) Elevated transaminase level Fatigue GERD (gastroesophageal reflux disease) Headache(784.0) Hemorrhoids Hyperlipidemia Hypertension Low back pain Neuropathic pain Obesity DONNA (obstructive sleep apnea) Rectal bleed Right leg weakness Trochanteric bursitis of left hip Bilateral Type II or unspecified type diabetes mellitus without mention of complication, not stated as uncontrolled (HCC) Uncontrolled type 2 diabetes mellitus with complication 02/19/2015 SURGICALHISTORY Past Surgical History: Procedure Laterality Date CARDIAC CATHETERIZATION 06/03/2018 CARPAL TUNNEL RELEASE CHOLECYSTECTOMY COLONOSCOPY 2011 ENDOMETRIAL ABLATION HERNIA REPAIR TONSILLECTOMY AND ADENOIDECTOMY (HISTORICAL) CURRENT MEDICATIONS Discharge Medication List as of 12/04/2023 7:27 PM CONTINUE these medications which have NOT CHANGED Details albuterol 108 (90 Base) MCG/ACT inhaler Inhale 1 puff every 6 hours as needed for wheezing or shortness of breath., Starting Wed08/26/2023, Normal aspirin 81 MG EC tablet Take 81 mg by mouth daily., Historical Med buPROPion XL (Wellbutrin XL) 300 MG 24 hr tablet Take 1 tablet (300 mg) by mouth daily. Do not crush, chew, or split., Starting Wed08/26/2023, Normal busPIRone (Buspar) 10 MG tablet Take 1 tablet (10 mg) by mouth 2 times daily., Starting Wed08/26/2023, Normal Continuous Glucose Wad Compressor Operator Adjuster (FreeStyle Linda 3 [place]) device 1 Device daily., Starting Wed11/16/2023, Normal Continuous Glucose Sensor (FreeStyle Linda 3 Sensor) misc every 14 (fourteen) days., Starting Wed11/16/2023, Normal Cyanocobalamin (B-12 Compliance Injection) 1000 MCG/ML kit Inject 1 ml (1000mcg) subcutaneous weekly x 4 then monthly, Normal cyanocobalamin (Vitamin B-12) 1000 MCG/ML injection INJECT 1 ML SUBCUTANEOUSLY ONCE A WEEK FOR 28 DAYS THEN MONTHLY, Historical Med glucagon (Gvoke HypoPen) 1 MG/0.2ML injection Inject 0.2 mL (1 mg) under the skin Once as needed for low blood sugar., Starting Wed10/14/2023, Until Wed10/13/2024 at 2359, Normal HumuLIN R U-500 KWIKPEN 500 UNIT/ML CONCENTRATED injection Inject 20 Units under the skin in the morning and 20 Units in the evening. Inject before meals., Starting Wed10/12/2023, Until Wed11/11/2023, Normal hydrOXYzine HCl (Atarax) 25 MG tablet Take 1 tablet (25 mg) by mouth every 8 hours as needed for anxiety., Starting Wed08/26/2023, Normal labetalol (Normodyne) 100 MG tablet Take 1 tablet (100 mg) by mouth in the morning and 1 tablet (100 mg) in the evening., Starting Wed08/26/2023, Normal metFORMIN (Glucophage) 1000 MG tablet Take 1 tablet (1,000 mg) by mouth in the morning and 1 tablet (1,000 mg) in the evening. Take with meals., Starting Wed10/13/2023, Normal Unifine Pentips 31G X 8 MM misc Use as directed with insulin pen, Normal Cat hair extract, Lisinopril, and Pollen extract FAMILY HISTORY Family History Problem Relation Name Age of Onset Diabetes Mother Heart disease Father Cancer Father prostate High Blood Pressure Father Other ([id number]) Sister TBI Depression Mother Substance Abuse Brother Heart disease Mother Other ([id number]) Mother Depression Brother SOCIAL HISTORY Social History Socioeconomic History Marital status: Tobacco Use Smoking status: Former Packs/day: 2 Types: Cigarettes Quit date: 09/01/2013 Years since quittin.2 Smokeless tobacco: Never Substance and Sexual Activity Alcohol use: Not Currently Alcohol/week: 0.0 standard drinks of alcohol Drug use: No Social Determinants of Health Financial Resource Strain: High Risk (12/30/2022) Overall Financial Resource Strain (CARDIA) Difficulty of Paying Living Expenses: Very hard Food Insecurity: No Food Insecurity (02/11/2023) Hunger Vital Sign Worried About Running Out of Food in the Last Year: Never true Ran Out of Food in the Last Year: Never true Transportation Needs: No Transportation Needs (12/30/2022) PRAPARE - Transportation Lack of Transportation (Medical): No Lack of Transportation (Non-Medical): No Physical Activity: Inactive (02/11/2023) Exercise Vital Sign Days of Exercise per Week: 0 days Minutes of Exercise per Session: 0 min Housing Stability: Low Risk (02/11/2023) Housing Stability Vital Sign Unable to Pay for Housing in the Last Year: No Number of Places Lived in the Last Year: 2 Unstable Housing in the Last Year: No SCREENINGS PHYSICAL EXAM (5+ for level 4, 8+ for level 5) @EDTRIAGEVSS@ Physical Exam Vitals and nursing note reviewed. Constitutional: General: She is not in acute distress. Appearance: Normal appearance. She is well-developed. HENT: Head: Normocephalic and atraumatic. Eyes: Conjunctiva/sclera: Conjunctivae normal. Cardiovascular: Rate and Rhythm: Normal rate and regular rhythm. Heart sounds: No murmur heard. Pulmonary: Effort: Pulmonary effort is normal. No respiratory distress. Breath sounds: Normal breath sounds. Musculoskeletal: General: No swelling. Skin: General: Skin is warm and dry. Neurological: Mental Status: She is alert and oriented to person, place, and time. Psychiatric: Mood and Affect: Mood normal. Behavior: Behavior normal. DIAGNOSTIC RESULTS EKG (Per Emergency Physician): RADIOLOGY (Per EmergencyPhysician): Interpretation per the Radiologist below, if available at the time of this note: @EDRISRSLT@ : Labs Reviewed POCT GLUCOSE METER UNSOLICITED RESULTS - Abnormal Result Value Glucose 133 (*) Narrative: Performed by: [facility], [address] [place] [address] CLIA ID: [id number] POCT GLUCOSE METER UNSOLICITED RESULTS - Abnormal Glucose 122 (*) Narrative: Performed by: [facility], [address] [place] [address] CLIA ID: [id number] POCT GLUCOSE METER All other labs were within normal range or not returned as of this dictation. EMERGENCY DEPARTMENT COURSE and DIFFERENTIALDIAGNOSIS/MDM: Vitals: Vitals: 12/04/23 1809 BP: (!) 145/88 BP Location: Right arm Pulse: 76 Resp: 18 Temp: 36.8 C (98.2 F) TempSrc: Temporal SpO2: 97% Medications - No data to display Medical Decision Making Problems Addressed: Type 2 diabetes mellitus treated with insulin ([facility]/HCC) (HCC): acute illness or injury Patient presents to the emergency department concerned about hypoglycemia. Patient states that she took 60 units of insulin this morning because her sugars have been running high. Her glucose level went down to 77. She states that she and her stopped and got some ice cream and presented to the emergency department. Patient states she was concerned as she was admitted back in October for severe hypoglycemia and altered mental status. Differential diagnoses includes hypoglycemic episode, medication side effect, diabetes Chronic conditions impacting care: Diabetes, COPD, migraines, GERD, hypertension Social determinants affecting health: Reformed smoker ED diagnostics included 2 lwqhj-dn-usol blood glucose test. The first one at 133 and after a period of observation a repeat 122. The patient requested to be discharged home. She states her will keep a close eye on her. She is discharged with home-going instructions on diabetes and hypoglycemia. She is to follow-up with her primary care physician and humane agent. She can return should signs and symptoms worsen in any way or any other concerns develop. Patient expressed an understanding of verbal instruction and had no further questions at the time of discharge. This patient was seen by myself, within my scope of practice, with the Emergency Department physician available for consultation at all times if needed. CONSULTS: None PROCEDURES: Unless otherwise noted below, none Procedures Patients symptoms are consistent with sepsis, severe sepsis, or septic shock (If yes use .sepsiscoremeasure): No FINAL IMPRESSION 1. Type 2 diabetes mellitus treated with insulin ([facility]) ([facility]) DISPOSITION/PLAN DISPOSITION Discharge 12/04/2023 07:26:20 PM PATIENT REFERRED TO: See Ricketts MD [address] [place] [address], [facility] [id number] Schedule an appointment as soon as possible for a visit in 3 days DISCHARGE MEDICATIONS: Discharge Medication List as of 12/04/2023 7:27 PM @[facility]([id number]:LAST:1)@ (Please note: Portions of this note were completed with a voice recognition program. Efforts were made to edit thedictations but occasionally words and phrases are mis-transcribed.) Form [id number] Jahaira Hankins PA-C (electronically signed) Emergency Medicine Provider Jahaira Hankins PA-C 12/04/232032 Jahaira Hankins PA-C 12/04/232034 Patient reports her blood glucose has been running high and then it dropped after insulin. CBG 133 in triage documented in this encounter [facility] 12-04-2023 Emergency department Triage note Patient reports her blood glucose has been running high and then it dropped after insulin. CBG 133 in triage [facility] 12-04-2023 Physician Emergency department Note [facility] ED eMERGENCY dEPARTMENT eNCOUnter Pt Name: Melanie Carey Birthdate 1965 Date of evaluation: 12/04/2023 Provider: Jahaira Hankins PA-C CHIEF COMPLAINT Chief Complaint Patient presents with Hypoglycemia Patient reports her blood glucose has been running high and then it dropped after insulin. CBG 133 in triage. HISTORY OF PRESENT ILLNESS (Location/Symptom, Timing/Onset,Context/Setting, Quality, Duration, Modifying Factors, Severity) Note limiting factors. HPI Melanie Carey is a 58 y.o. female who presents to the emergency department complaining of hypoglycemia. Patient states that she is a type II diabetic on insulin. She took her normal dose of insulin today after her readings have been running high. She states that her insulin dropped her sugar down to 77. They stopped and got an eye screen: And came into the emergency department. Patient presents with a ertpt-da-wabn glucose of 133. She got concerned as she was hospitalized back in October with critically low low hypoglycemia and altered mental status and ended up being admitted to the hospital. Nursing Notes were reviewed. REVIEW OF SYSTEMS (2+ for4; 10+ for level 5) Review of Systems Constitutional: Negative for chills and fever. HENT: Negative for ear pain and sore throat. Eyes: Negative for pain and visual disturbance. Respiratory: Negative for cough and shortness of breath. Cardiovascular: Negative for chest pain and palpitations. Gastrointestinal: Negative for abdominal pain and vomiting. Genitourinary: Negative for dysuria and hematuria. Musculoskeletal: Negative for arthralgias and back pain. Skin: Negative for color change and rash. Neurological: Negative for seizures and syncope. All other systems reviewed and are negative. PAST MEDICAL HISTORY Past Medical History: Diagnosis Date Anxiety Arthritis Chest pain Depression Diabetic nephropathy (CMS/HCC) (HCC) Elevated transaminase level Fatigue GERD (gastroesophageal reflux disease) Headache(784.0) Hemorrhoids Hyperlipidemia Hypertension Low back pain Neuropathic pain Obesity DONNA (obstructive sleep apnea) Rectal bleed Right leg weakness Trochanteric bursitis of left hip Bilateral Type II or unspecified type diabetes mellitus without mention of complication, not stated as uncontrolled (HCC) Uncontrolled type 2 diabetes mellitus with complication 02/19/2015 SURGICALHISTORY Past Surgical History: Procedure Laterality Date CARDIAC CATHETERIZATION 06/03/2018 CARPAL TUNNEL RELEASE CHOLECYSTECTOMY COLONOSCOPY 2011 ENDOMETRIAL ABLATION HERNIA REPAIR TONSILLECTOMY AND ADENOIDECTOMY (HISTORICAL) CURRENT MEDICATIONS Discharge Medication List as of 12/04/2023 7:27 PM CONTINUE these medications which have NOT CHANGED Details albuterol 108 (90 Base) MCG/ACT inhaler Inhale 1 puff every 6 hours as needed for wheezing or shortness of breath., Starting Wed08/26/2023, Normal aspirin 81 MG EC tablet Take 81 mg by mouth daily., Historical Med buPROPion XL (Wellbutrin XL) 300 MG 24 hr tablet Take 1 tablet (300 mg) by mouth daily. Do not crush, chew, or split., Starting Wed08/26/2023, Normal busPIRone (Buspar) 10 MG tablet Take 1 tablet (10 mg) by mouth 2 times daily., Starting Wed08/26/2023, Normal Continuous Glucose Wad Compressor Operator Adjuster (FreeStyle Linda 3 [place]) device 1 Device daily., Starting Wed11/16/2023, Normal Continuous Glucose Sensor (FreeStyle Linda 3 Sensor) misc every 14 (fourteen) days., Starting Wed11/16/2023, Normal Cyanocobalamin (B-12 Compliance Injection) 1000 MCG/ML kit Inject 1 ml (1000mcg) subcutaneous weekly x 4 then monthly, Normal cyanocobalamin (Vitamin B-12) 1000 MCG/ML injection INJECT 1 ML SUBCUTANEOUSLY ONCE A WEEK FOR 28 DAYS THEN MONTHLY, Historical Med glucagon (Gvoke HypoPen) 1 MG/0.2ML injection Inject 0.2 mL (1 mg) under the skin Once as needed for low blood sugar., Starting Wed10/14/2023, Until Wed10/13/2024 at 2359, Normal HumuLIN R U-500 KWIKPEN 500 UNIT/ML CONCENTRATED injection Inject 20 Units under the skin in the morning and 20 Units in the evening. Inject before meals., Starting Wed10/12/2023, Until Wed11/11/2023, Normal hydrOXYzine HCl (Atarax) 25 MG tablet Take 1 tablet (25 mg) by mouth every 8 hours as needed for anxiety., Starting Wed08/26/2023, Normal labetalol (Normodyne) 100 MG tablet Take 1 tablet (100 mg) by mouth in the morning and 1 tablet (100 mg) in the evening., Starting Wed08/26/2023, Normal metFORMIN (Glucophage) 1000 MG tablet Take 1 tablet (1,000 mg) by mouth in the morning and 1 tablet (1,000 mg) in the evening. Take with meals., Starting Wed10/13/2023, Normal Unifine Pentips 31G X 8 MM misc Use as directed with insulin pen, Normal Cat hair extract, Lisinopril, and Pollen extract FAMILY HISTORY Family History Problem Relation Name Age of Onset Diabetes Mother Heart disease Father Cancer Father prostate High Blood Pressure Father Other ([id number]) Sister TBI Depression Mother Substance Abuse Brother Heart disease Mother Other ([id number]) Mother Depression Brother SOCIAL HISTORY Social History Socioeconomic History Marital status: Tobacco Use Smoking status: Former Packs/day: 2 Types: Cigarettes Quit date: 09/01/2013 Years since quittin.2 Smokeless tobacco: Never Substance and Sexual Activity Alcohol use: Not Currently Alcohol/week: 0.0 standard drinks of alcohol Drug use: No Social Determinants of Health Financial Resource Strain: High Risk (12/30/2022) Overall Financial Resource Strain (CARDIA) Difficulty of Paying Living Expenses: Very hard Food Insecurity: No Food Insecurity (02/11/2023) Hunger Vital Sign Worried About Running Out of Food in the Last Year: Never true Ran Out of Food in the Last Year: Never true Transportation Needs: No Transportation Needs (12/30/2022) PRAPARE - Transportation Lack of Transportation (Medical): No Lack of Transportation (Non-Medical): No Physical Activity: Inactive (02/11/2023) Exercise Vital Sign Days of Exercise per Week: 0 days Minutes of Exercise per Session: 0 min Housing Stability: Low Risk (02/11/2023) Housing Stability Vital Sign Unable to Pay for Housing in the Last Year: No Number of Places Lived in the Last Year: 2 Unstable Housing in the Last Year: No SCREENINGS PHYSICAL EXAM (5+ for level 4, 8+ for level 5) @EDTRIAGEVSS@ Physical Exam Vitals and nursing note reviewed. Constitutional: General: She is not in acute distress. Appearance: Normal appearance. She is well-developed. HENT: Head: Normocephalic and atraumatic. Eyes: Conjunctiva/sclera: Conjunctivae normal. Cardiovascular: Rate and Rhythm: Normal rate and regular rhythm. Heart sounds: No murmur heard. Pulmonary: Effort: Pulmonary effort is normal. No respiratory distress. Breath sounds: Normal breath sounds. Musculoskeletal: General: No swelling. Skin: General: Skin is warm and dry. Neurological: Mental Status: She is alert and oriented to person, place, and time. Psychiatric: Mood and Affect: Mood normal. Behavior: Behavior normal. DIAGNOSTIC RESULTS EKG (Per Emergency Physician): RADIOLOGY (Per EmergencyPhysician): Interpretation per the Radiologist below, if available at the time of this note: @EDRISRSLT@ : Labs Reviewed POCT GLUCOSE METER UNSOLICITED RESULTS - Abnormal Result Value Glucose 133 (*) Narrative: Performed by: [facility], [address] [place] [address] CLIA ID: [id number] POCT GLUCOSE METER UNSOLICITED RESULTS - Abnormal Glucose 122 (*) Narrative: Performed by: [facility], [address] [place] [address] CLIA ID: [id number] POCT GLUCOSE METER All other labs were within normal range or not returned as of this dictation. EMERGENCY DEPARTMENT COURSE and DIFFERENTIALDIAGNOSIS/MDM: Vitals: Vitals: 12/04/23 1809 BP: (!) 145/88 BP Location: Right arm Pulse: 76 Resp: 18 Temp: 36.8 C (98.2 F) TempSrc: Temporal SpO2: 97% Medications - No data to display Medical Decision Making Problems Addressed: Type 2 diabetes mellitus treated with insulin ([facility]/HCC) (HCC): acute illness or injury Patient presents to the emergency department concerned about hypoglycemia. Patient states that she took 60 units of insulin this morning because her sugars have been running high. Her glucose level went down to 77. She states that she and her stopped and got some ice cream and presented to the emergency department. Patient states she was concerned as she was admitted back in October for severe hypoglycemia and altered mental status. Differential diagnoses includes hypoglycemic episode, medication side effect, diabetes Chronic conditions impacting care: Diabetes, COPD, migraines, GERD, hypertension Social determinants affecting health: Reformed smoker ED diagnostics included 2 etwkr-lt-lfdl blood glucose test. The first one at 133 and after a period of observation a repeat 122. The patient requested to be discharged home. She states her will keep a close eye on her. She is discharged with home-going instructions on diabetes and hypoglycemia. She is to follow-up with her primary care physician and humane agent. She can return should signs and symptoms worsen in any way or any other concerns develop. Patient expressed an understanding of verbal instruction and had no further questions at the time of discharge. This patient was seen by myself, within my scope of practice, with the Emergency Department physician available for consultation at all times if needed. CONSULTS: None PROCEDURES: Unless otherwise noted below, none Procedures Patients symptoms are consistent with sepsis, severe sepsis, or septic shock (If yes use .sepsiscoremeasure): No FINAL IMPRESSION 1. Type 2 diabetes mellitus treated with insulin ([facility]) ([facility]) DISPOSITION/PLAN DISPOSITION Discharge 12/04/2023 07:26:20 PM PATIENT REFERRED TO: See Ricketts MD [address] [place] [address], [address] [place] [id number] Schedule an appointment as soon as possible for a visit in 3 days DISCHARGE MEDICATIONS: Discharge Medication List as of 12/04/2023 7:27 PM @[facility]([id number]:LAST:1)@ (Please note: Portions of this note were completed with a voice recognition program. Efforts were made to edit thedictations but occasionally words and phrases are mis-transcribed.) Form [id number] Jahaira Hankins PA-C (electronically signed) Emergency Medicine Provider Jahaira Hankins PA-C 12/04/232032 Jhaaira Hankins PA-C 12/04/232034 [facility] 11-16-2023 History of Present illness Narrative Provider had face to face visit with patient and requests a CGM be sent to pharmacy, chart reviewed and patient has used CGM device in the past. Order sent to pharmacy per [place] guidelines, may require PA documented in this encounter [facility] 11-11-2023 Evaluation + Plan note Associated Problem(s): Hyponatremia Recheck BMP today [facility] 11-11-2023 Evaluation + Plan note Associated Problem(s): Other cirrhosis of liver (HCC) Follow-up with gastroenterology [facility] 11-11-2023 Miscellaneous Notes Associated Problem(s): Hyponatremia Recheck BMP today Associated Problem(s): Other cirrhosis of liver (HCC) Follow-up with gastroenterology Associated Problem(s): Type 2 diabetes mellitus with polyneuropathy (HCC) Poorly controlled. Not consistent with taking her insulin. High risk for hypoglycemia. Will see if we can get her set up with a CGM, Advised patient to administer U-500 insulin as she was directed by endocrinology upon discharge from the hospital giving 20 units before breakfast and 20 units before dinner, continue metformin 1000 mg twice daily. Advised patient if her blood sugar is greater than 200 prior to her meal she may increase to 30 units. She is not to give herself any more than 30 units. Continue to check glucose before meals Associated Problem(s): Pancytopenia (HCC) Follow-up with hematology as directed. documented in this encounter [facility] 11-11-2023 Evaluation + Plan note Associated Problem(s): Type 2 diabetes mellitus with polyneuropathy (HCC) Poorly controlled. Not consistent with taking her insulin. High risk for hypoglycemia. Will see if we can get her set up with a CGM, Advised patient to administer U-500 insulin as she was directed by endocrinology upon discharge from the hospital giving 20 units before breakfast and 20 units before dinner, continue metformin 1000 mg twice daily. Advised patient if her blood sugar is greater than 200 prior to her meal she may increase to 30 units. She is not to give herself any more than 30 units. Continue to check glucose before meals [facility] 11-11-2023 Evaluation + Plan note Associated Problem(s): Pancytopenia (HCC) Follow-up with hematology as directed. [facility] 11-11-2023 History of Present illness Narrative Patient was identified by name and Date of . Health Maintenance Addressed with Patient at Visit: DM foot-pended DM eye- needs to schedule Pap- needs to schedule Images from the original note were not included. 11/11/2023 Melanie Carey (: 1965) is a 58 y.o. female , Established patient, here for evaluation of the following chief complaint(s): Hospital Follow-up, Headache, and Health Maintenance (DM foot-pended/DM eye- needs to schedule/Pap- needs to schedule) ASSESSMENT/PLAN: 1. Hyponatremia Assessment & Plan: Recheck BMP today Orders: - Basic metabolic panel 2. Type 2 diabetes mellitus with polyneuropathy (HCC) Assessment & Plan: Poorly controlled. Not consistent with taking her insulin. High risk for hypoglycemia. Will see if we can get her set up with a CGM, Advised patient to administer U-500 insulin as she was directed by endocrinology upon discharge from the hospital giving 20 units before breakfast and 20 units before dinner, continue metformin 1000 mg twice daily. Advised patient if her blood sugar is greater than 200 prior to her meal she may increase to 30 units. She is not to give herself any more than 30 units. Continue to check glucose before meals 3. Other cirrhosis of liver (HCC) Assessment & Plan: Follow-up with gastroenterology 4. Pancytopenia (HCC) Assessment & Plan: Follow-up with hematology as directed. Follow up for with primary care provider as scheduled, as directed pending test results. SUBJECTIVE/OBJECTIVE: [facility] - Melanie Carey (: 1965) is a 58 y.o. female , Established patient, here for the evaluation of the following chief complaint(s): Hospital Follow-up, Headache, and Health Maintenance (DM foot-pended/DM eye- needs to schedule/Pap- needs to schedule) Patient presents for hospital follow-up. Was hospitalized October 10 through October 12, 2023 for hypoglycemia and acute mental status change. Hospital Course: Raiza Carey is a 58 y.o. female who presented to ED on 10/11/23 for hypoglycemia and AMS. Of note, patient on U500 insulin and became altered at home after taking her insulin; BG was 31 at home per . In ED, VS stable but patient hypertensive. Labs significant for K 3.4, BUN 19, low BG 27, low platelets 74. CT Head showed no acute intracranial finding. Patient given dextrose and IV solu-medrol in ED. BG improved and mentation improved to baseline. Admitted for further evaluation and management. Endocrinology consulted and optimized patient's DM regimen (U500 20 U before breakfast and 20 U before dinner, metformin 1000 mg BID). Patient remained clinically stable and requested to be discharged home. Patient is discharged in improved and stable condition. Today reports: Patient states that she has not established with endocrinology and would her PCP management of her diabetes as possible. Her last hemoglobin A1c was 6.9 (08/26/2023). Reports that she has had some additional hypoglycemic episodes, but does not know how low as she did not check her glucose. Previously had CGM and would like to get another 1. Currently is using fingerstick glucometer. She has been on U-500 insulin for several years now previously using up to 130 units at a time. She brings with her today her glucose readings from the past couple of weeks. Reports that she has been somewhat inconsistent with the number of units that she gives herself. Glucose range was 93-321 prior to meals. She is not consistent with her meals or with insulin dosing. Does not count carbs. Yesterday she states that she gave herself too much insulin at lunchtime and was hypoglycemic in the afternoon (however does not know how low because she did not check it- ate something and felt better) she gave herself 100 units before breakfast (fasting bs-215) yesterday and 80 units before lunch (bs was 176). Hyponatremia-sodium 133 on October 12, 2023, will recheck today. Pancytopenia- is managed by hematology, was started on b12 injections for b12 deficiency. Cirrhosis of Liver- is following up with gastroenterology. Prior to Admission medications Medication Sig Start Date End Date Taking? Authorizing Provider albuterol 108 (90 Base) MCG/ACT inhaler Inhale 1 puff every 6 hours as needed for wheezing or shortness of breath. 08/26/23 Yes NICOLE Easley CNP aspirin 81 MG EC tablet Take 81 mg by mouth daily. Yes Historical Provider, buPROPion XL (Wellbutrin XL) 300 MG 24 hr tablet Take 1 tablet (300 mg) by mouth daily. Do not crush, chew, or split. 08/26/23 Yes NICOLE Easley CNP busPIRone (Buspar) 10 MG tablet Take 1 tablet (10 mg) by mouth 2 times daily. 08/26/23 Yes NICOLE Easley CNP Cyanocobalamin (B-12 Compliance Injection) 1000 MCG/ML kit Inject 1 ml (1000mcg) subcutaneous weekly x 4 then monthly 10/13/23 Yes Angel Juan MD cyanocobalamin (Vitamin B-12) 1000 MCG/ML injection INJECT 1 ML SUBCUTANEOUSLY ONCE A WEEK FOR 28 DAYS THEN MONTHLY 10/13/23 Yes Historical Provider, glucagon (Gvoke HypoPen) 1 MG/0.2ML injection Inject 0.2 mL (1 mg) under the skin Once as needed for low blood sugar. 10/14/23 10/13/24 Yes NICOLE Easley CNP HumuLIN R U-500 KWIKPEN 500 UNIT/ML CONCENTRATED injection Inject 20 Units under the skin in the morning and 20 Units in the evening. Inject before meals. 10/12/23 11/11/23 Yes NICOLE Gallegos CNP hydrOXYzine HCl (Atarax) 25 MG tablet Take 1 tablet (25 mg) by mouth every 8 hours as needed for anxiety. 08/26/23 Yes NICOLE Easley CNP labetalol (Normodyne) 100 MG tablet Take 1 tablet (100 mg) by mouth in the morning and 1 tablet (100 mg) in the evening. 08/26/23 Yes NICOLE Easley CNP metFORMIN (Glucophage) 1000 MG tablet Take 1 tablet (1,000 mg) by mouth in the morning and 1 tablet (1,000 mg) in the evening. Take with meals. 10/13/23 Yes NICOLE Easley CNP Unifine Pentips 31G X 8 MM misc Use as directed with insulin pen 08/26/23 Yes INCOLE Easley CNP predniSONE (Deltasone) 20 MG tablet 10/01/23 11/11/23 Historical Provider, Review of Systems Constitutional: Positive for fatigue. Negative for activity change, appetite change, chills and fever. HENT: Negative. Respiratory: Negative. Cardiovascular: Negative. Gastrointestinal: Negative. Genitourinary: Negative for difficulty urinating. Neurological: Positive for dizziness, light-headedness and headaches. Sometimes when glucose is low Vitals: 11/11/23 0716 BP: 114/60 Pulse: 77 Resp: 16 Temp: 36.5 C (97.7 F) TempSrc: Infrared SpO2: 96% Weight: 276 lb (125 kg) Physical Exam Constitutional: General: She is not in acute distress. Appearance: Normal appearance. She is obese. She is not ill-appearing. HENT: Head: Normocephalic and atraumatic. Mouth/Throat: Mouth: Mucous membranes are moist. Pharynx: Oropharynx is clear. No posterior oropharyngeal erythema. Cardiovascular: Rate and Rhythm: Normal rate and regular rhythm. Pulses: Normal pulses. Heart sounds: Normal heart sounds. Pulmonary: Effort: Pulmonary effort is normal. Breath sounds: Normal breath sounds. Musculoskeletal: Right lower leg: No edema. Left lower leg: No edema. Neurological: Mental Status: She is alert and oriented to person, place, and time. An electronic signature was used to authenticate this note. NICOLE Easley CNP 11/11/2023 1:53 PM documented in this encounter [facility] 11-11-2023 Instructions NICOLE Easley CNP - 11/11/2023 7:20 AM EDT Give insulin only before breakfast and dinner U500 20 U before breakfast and 20 U before dinner, if glucose is >200 ok to give 30 U No more than 30 units of the U500 at a time. documented in this encounter [facility] 10-13-2023 Telephone encounter Note Per Dr. Juan, pt to start b12 weekly x4 then monthly. [facility] 10-13-[address] Juan, pt to start b12 weekly x4 then monthly. documented in this encounter [facility] 10-13-2023 History of Present illness Narrative [facility] [place] [address] [facility] [address] [facility] [address] Dept: [phone] Dept Loc: [phone] Patient ID: Raiza Carey is a 58 y.o. female. Referring Physician: Dr. Ricketts Primary Care Provider: See Ricketts MD Referral Request: low plt . Also low WBC HPI: Melanie Carey is a 58 y.o. female with DM , anxiety , depression , sleep apnea was referred for lower than normal plt and WBC . She had covid x 3 and pneumonia in the past 3 years . Each illness took long to recover. Fatigue more than her baseline . Unintentional weight loss 25 lb in 6 months . Interval history : Since last visit , she did labs for pancytopenia . US abdomin completed . [place] the same . Fatigue persisted . Hypoglycemia , visited ED . Past Medical History: Diagnosis Date Anxiety Arthritis Chest pain Depression Diabetic nephropathy (CMS/HCC) (HCC) Elevated transaminase level Fatigue GERD (gastroesophageal reflux disease) Headache(784.0) Hemorrhoids Hyperlipidemia Hypertension Low back pain Neuropathic pain Obesity DONNA (obstructive sleep apnea) Rectal bleed Right leg weakness Trochanteric bursitis of left hip Bilateral Type II or unspecified type diabetes mellitus without mention of complication, not stated as uncontrolled (HCC) Uncontrolled type 2 diabetes mellitus with complication 02/19/2015 Family History Problem Relation Name Age of Onset Diabetes Mother Heart disease Father Cancer Father prostate High Blood Pressure Father Other ([id number]) Sister TBI Depression Mother Substance Abuse Brother Heart disease Mother Other ([id number]) Mother Depression Brother Social History Socioeconomic History Marital status: Spouse name: Not on file Number of children: Not on file Years of education: Not on file Highest education level: Not on file Occupational History Not on file Tobacco Use Smoking status: Former Packs/day: 2 Types: Cigarettes Quit date: 09/01/2013 Years since quittin.1 Smokeless tobacco: Never Substance and Sexual Activity Alcohol use: Not Currently Alcohol/week: 0.0 standard drinks of alcohol Drug use: No Sexual activity: Not on file Other Topics Concern Not on file Social History Narrative Not on file Social Determinants of Health Financial Resource Strain: High Risk (12/30/2022) Overall Financial Resource Strain (CARDIA) Difficulty of Paying Living Expenses: Very hard Food Insecurity: No Food Insecurity (02/11/2023) Hunger Vital Sign Worried About Running Out of Food in the Last Year: Never true Ran Out of Food in the Last Year: Never true Transportation Needs: No Transportation Needs (12/30/2022) PRAPARE - Transportation Lack of Transportation (Medical): No Lack of Transportation (Non-Medical): No Physical Activity: Inactive (02/11/2023) Exercise Vital Sign Days of Exercise per Week: 0 days Minutes of Exercise per Session: 0 min Stress: Not on file Social Connections: Not on file Intimate Partner Violence: Not on file Housing Stability: Low Risk (02/11/2023) Housing Stability Vital Sign Unable to Pay for Housing in the Last Year: No Number of Places Lived in the Last Year: 2 Unstable Housing in the Last Year: No Allergies Allergen Reactions Cat Hair Extract Anaphylaxis and Swelling Lisinopril Angioedema Pollen Extract Unknown Review of Systems Constitutional: Positive for fatigue and unexpected weight change. HENT: Negative. Eyes: Negative. Respiratory: Negative. Cardiovascular: Negative. Gastrointestinal: Negative. Endocrine: Negative. Genitourinary: Negative. Musculoskeletal: Negative. Skin: Negative. Neurological: Negative. Hematological: Negative. Psychiatric/Behavioral: Negative. Objective BSA: 2.38 meters squared BP 124/79 (BP Location: Right arm, Patient Position: Sitting, BP Cuff Size: Adult long) Pulse 70 Temp 36.4 C (97.5 F) (Temporal) Ht 1.651 m (5' 5) Wt 123 kg (271 lb 8 oz) SpO2 96% BMI 45.18 kg/m Physical Exam Constitutional: Appearance: She is obese. HENT: Head: Normocephalic and atraumatic. Nose: Nose normal. Eyes: Extraocular Movements: Extraocular movements intact. Cardiovascular: Rate and Rhythm: Normal rate and regular rhythm. Heart sounds: Normal heart sounds. Pulmonary: Breath sounds: Normal breath sounds. Abdominal: Palpations: Abdomen is soft. Musculoskeletal: General: Normal range of motion. Cervical back: Normal range of motion. Skin: General: Skin is warm. Neurological: General: No focal deficit present. Mental Status: She is alert and oriented to person, place, and time. Psychiatric: Mood and Affect: Mood normal. Behavior: Behavior normal. ECOG Performance Status: Symptomatic; fully ambulatory Pertinent Ancillary Test Results: Lab Results Component Value Date WBC 4.0 10/12/2023 ADJUSTEDWBC 2.9 (L) 05/16/2023 HGB 11.6 (L) 10/12/2023 HCT 36.8 10/12/2023 PLT 65 (L) 10/12/2023 LDH 137 09/30/2023 CREATININE 0.81 10/12/2023 AST 29 10/12/2023 Assessment/Plan: Raiza was seen today for follow-up. Diagnoses and all orders for this visit: Pancytopenia (HCC) (Primary) I have reviewed pertinent ancillary laboratory results with the patient and family member today. Etiologies : 1) B12 low, MMA elevated , consistent with B12 deficiency . B12 injection recommended . 2) chronic liver disease . US showed signs of portal hypertension . See GI . All questions were answered to the patient's satisfaction. Patient to call with any questions or problems. Patient verbalized understanding and agreed with the treatment plan outlined above. Angel Rodas M.D. - On this date, 10/13/23 , I have spent 40 minutes preparing to see the patient by reviewing previous notes/ancillary test results as well as with [id number] patient care, performing a medically appropriate examination, counseling & educating the patient/family/caregiver, ordering applicable medications/tests/procedures and completing required clinical documentation on the day of encounter. documented in this encounter [facility] 10-13-2023 Telephone encounter Note Reviewed chart. Refill appropriate. RX sent. [facility] 10-13-2023 Miscellaneous Notes Reviewed chart. Refill appropriate. RX sent. Prescription Request: Last medication check: not found Last physical exam: 08/26/23 Next scheduled appointment: 11/25/23 Last date of refill on this medication: 08/26/23 documented in this encounter [facility] 10-13-2023 Telephone encounter Note Prescription Request: Last medication check: not found Last physical exam: 08/26/23 Next scheduled appointment: 11/25/23 Last date of refill on this medication: 08/26/23 [facility] 10-12-2023 History of Present illness Narrative Discharged to home, via w/c, to the car Discharge instructions given. Patient verbalized understanding Dr Al Jones says no need to cover the current glucometer of [address] Al Jones on one east and aware of current glucometer of 337 and the patient states she is not going to eat dinner here in the hospital Arrived from ER, via cart, to [facility] Images from the original note were not included. PHYSICAL THERAPY [facility] Name/MRN: Raiza Restrepo Phyllisestuardo ([id number]) Date: 10/12/2023 PT evaluation orders received and chart review completed. Pt completed OT evaluation this AM and demo mobility independently with no device and completed stairs with no difficulty. Pt has no acute PT needs. Will discharge from caseload. Jennifer Friedman PT Images from the original note were not included. OCCUPATIONAL THERAPY [facility] Initial Evaluation Name/MRN: Raiza Kaye Carey ([id number]) Evaluation Date: 10/12/2023 Date of : 1965 Admission Date: 10/11/2023 8:06 PM Age: 58 y.o. Room/Bed: Discharge Recommendation: Home with assist PRN Equipment Needed: No Assessment IMPRESSION: Pt in 10/10 with AMS, hypoglycemia, and near fall with increased weakness. She was previously IND for ADLs, IADLs, and functional transfers / mobility without a device. She is currently MOD I for ADLs, functional transfers / mobility without a device. She appears to be near baseline at this time. She completed functional tranfers / mobility and bathroom level toileting without assist this date. No acute OT goals identified at this time. Recommend planned discharge for home with assist PRN. Performance Deficits /Impairments: N/A Prognosis: Good Decision Making: Medium Complexity Subjective Pleasant and cooperative. OK to see per RN. Pain: Pt denies any current pain. Past Medical History: Past Medical History: Diagnosis Date Anxiety Arthritis Chest pain Depression Diabetic nephropathy (CMS/HCC) (HCC) Elevated transaminase level Fatigue GERD (gastroesophageal reflux disease) Headache(784.0) Hemorrhoids Hyperlipidemia Hypertension Low back pain Neuropathic pain Obesity DONNA (obstructive sleep apnea) Rectal bleed Right leg weakness Trochanteric bursitis of left hip Bilateral Type II or unspecified type diabetes mellitus without mention of complication, not stated as uncontrolled (HCC) Uncontrolled type 2 diabetes mellitus with complication 02/19/2015 Past Surgical History: Past Surgical History: Procedure Laterality Date CARDIAC CATHETERIZATION 06/03/2018 CARPAL TUNNEL RELEASE CHOLECYSTECTOMY COLONOSCOPY 2011 ENDOMETRIAL ABLATION HERNIA REPAIR TONSILLECTOMY AND ADENOIDECTOMY (HISTORICAL) Admission Diagnosis: Patient Active Problem List Diagnosis Date Noted Back strain 08/26/2023 Urinary tract infection symptoms 08/26/2023 Lip lesion 08/26/2023 Hypoglycemia 02/18/2023 Lymphopenia 02/16/2023 Thrombocytopenia (HCC) 02/16/2023 Acute pain of left knee 02/16/2023 Other cirrhosis of liver (HCC) 04/19/[address] scan 04/19/2023 Chronic obstructive pulmonary disease (HCC) 07/15/2020 Proteinuria 01/15/2020 Primary osteoarthritis involving multiple joints 01/15/2020 Uncontrolled type 2 diabetes mellitus with complication 01/15/2020 Essential hypertension 10/31/2018 Type 2 diabetes mellitus with polyneuropathy (HCC) 10/31/2018 Obstructive sleep apnea syndrome 10/31/2018 Class 3 severe obesity due to excess calories with serious comorbidity and body mass index (BMI) of 50.0 to 59.9 in adult ([facility]) 10/28/2018 Type 2 diabetes with nephropathy ([facility]) 10/28/2018 Anxiety 07/01/2018 Hyponatremia 2018 Gastroesophageal reflux disease without esophagitis 2018 Hyperlipidemia LDL goal <70 2018 Depression 2018 Migraine without aura and without status migrainosus, not intractable 05/16/2015 Medical Precautions: No active isolations Proper PPE donned/doffed in accordance with facility standards. Fall Risk: Christianson Fall Risk Score: 45 (High Risk) Precautions/Restrictions: N/A Family/Caregiver Present: none Overall Cognitive Status: WFL Overall Orientation Status: Oriented x4 Social/Functional History Patient admitted from home. 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 She demos no true LOB with OOB activity with no use of AE or environmental supports. She was able to complete bathroom level toileting with increased time and no physical assist for pericare or clothing management this date. Based on her observed functional ability, anticipate that she would be MOD I for ADLs tasks. Pt with no current concerns for home going or completion of ADLs. Upper Extremity Assessment AROM: WFL PROM: Not assessed this session Strength: WFL Vision: wears glasses for reading and and are NOT being used during the eval Hearing: normal Bed Mobility Supine to sit: Modified Independent Scooting: Modified Independent HOB elevated, increased time to complete. No use of bed rails. No c/o dizziness with positional changes. MOD I overall. Pt seated at EOB following session. Transfers/Functional Mobility Sit to stand: Modified Independent Stand to sit: Modified Independent Toilet: Modified Independent Sitting balance: Modified Independent Standing balance: Modified Independent Functional mobility: Modified Independent Pt completed sit<>stand from EOB to no device without assist thisd ate. Denies dizziness with out positional changes. No true LOB noted at this time with OOB activity. She demos good hand placement for positional changes at this time. She completed functional home distances in hallway, toilet transfers, and x4 steps this date on stairs without difficulty. Limited by PIV line. Device(s) used: front wheeled walker AM-PAC AM-PAC Inpatient Daily Activity Raw Score: 24 ADL Inpatient CMS G-Code Modifier: CH Plan No skilled acute OT indicated at this time. Please reconsult should changes occur. Safety/Education Safety Safety Devices in place: All fall risk precautions in place, call light within reach, gait belt, nurse notified, no alarms engaged upon entry, and patient left sitting EOB Restraints: No Education Education Given To: patient Education Provided: OT Role and Plan of Care Education Method: Verbal Barriers to Learning: None Education Outcome: Verbalized Understanding Goals Patient Stated Goal: none stated at this time. No acute OT goals noted at this time. Therapy Time Individual Co-treatment Time In 0928 Time Out 0944 Minutes 16 Gurpreet Lamb OT Patient's Occupational Therapy Plan of Care supervision is transferred to a [facility] Therapy Services Occupational Therapist. Goals and/or treatment plan was established in collaboration with patient/family/other representatives. documented in this encounter [facility] 10-12-2023 Hospital course Narrative Images from the original note were not included. Hospitalist Discharge Summary Melanie Carey : 1965 Admit date: 10/11/2023 Discharge date: 10/12/2023 Admitting Physician: Philippe Jones MD Primary Care Physician: See Ricketts MD Visit Status: Observation Code Status: Prior Acute, acute on chronic, unstable/uncontrolled chronic problems/discharge diagnoses: # Altered mental status, improved/resolved - likely 2/2 hypoglycemia. Low BG 27 in ED; BG and mentation improved with dextrose. CT head showed no acute intracranial finding # T2DM with hypoglycemia and hyperglycemia, on long-term insulin use - A1c 6.9% (08/26/23) # Hypokalemia, improved Stable chronic problems affecting care, new non-acute discharge diagnoses: # HTN # HLD # GERD # Thrombocytopenia # DONNA # Morbid obesity # Depression, anxiety Past Medical History: Diagnosis Date Anxiety Arthritis Chest pain Depression Diabetic nephropathy (CMS/HCC) (HCC) Elevated transaminase level Fatigue GERD (gastroesophageal reflux disease) Headache(784.0) Hemorrhoids Hyperlipidemia Hypertension Low back pain Neuropathic pain Obesity DONNA (obstructive sleep apnea) Rectal bleed Right leg weakness Trochanteric bursitis of left hip Bilateral Type II or unspecified type diabetes mellitus without mention of complication, not stated as uncontrolled (HCC) Uncontrolled type 2 diabetes mellitus with complication 02/19/2015 Procedures: None Hospital Course: Raiza Carey is a 58 y.o. female who presented to ED on 10/11/23 for hypoglycemia and AMS. Of note, patient on U500 insulin and became altered at home after taking her insulin; BG was 31 at home per . In ED, VS stable but patient hypertensive. Labs significant for K 3.4, BUN 19, low BG 27, low platelets 74. CT Head showed no acute intracranial finding. Patient given dextrose and IV solu-medrol in ED. BG improved and mentation improved to baseline. Admitted for further evaluation and management. Endocrinology consulted and optimized patient's DM regimen (U500 20 U before breakfast and 20 U before dinner, metformin 1000 mg BID). Patient remained clinically stable and requested to be discharged home. Patient is discharged in improved and stable condition. See discharge diagnoses list above and medication adjustments below in med rec. Consults: IP CONSULT TO ENDOCRINOLOGY Discharge Instructions: Diet: Activity: as tolerated Recommended Outpatient Tests: Disposition: Patient discharged in stable condition to Home. Greater than 31 minutes spent discharging the patient and coming up with patient discharge plan. Vitals: BP 143/81 (BP Location: Left arm) Pulse 78 Temp 36.3 C (97.4 F) (Temporal) Resp 18 SpO2 97% Pulse Ox: SpO2 Av.6 % Min: 93 % Max: 98 % Supplemental O2: Physical Exam Constitutional: General: She is not in acute distress. Appearance: She is obese. She is not toxic-appearing. HENT: Head: Normocephalic. Right Ear: External ear normal. Eyes: Extraocular Movements: Extraocular movements intact. Cardiovascular: Rate and Rhythm: Normal rate and regular rhythm. Pulmonary: Effort: Pulmonary effort is normal. No respiratory distress. Abdominal: General: Bowel sounds are normal. Palpations: Abdomen is soft. Tenderness: There is no abdominal tenderness. Musculoskeletal: General: Normal range of motion. Skin: General: Skin is warm and dry. Neurological: Mental Status: She is alert and oriented to person, place, and time. Psychiatric: Thought Content: Thought content normal. LABS: Recent Labs 10/11/23202510/12/23 0642 NA 140 133* K 3.4* 4.8 CL 104 103 CO2 26 23 BUN 19* 22* CREATININE 0.87 0.81 GLUCOSE 27* 248* CALCIUM 9.9 9.2 Recent Labs 10/11/23202510/12/23 0642 WBC 6.1 4.0 RBC 4.98 4.39 HGB 13.1 11.6* HCT 41.4 36.8 MCV 83.1 83.8 MCH 26.3 26.4 MCHC 31.6 31.5 RDW 15.5* 15.4* PLT 74* 65* MPV 9.8 10.9 Discharge Medications: Medication List CHANGE how you take these medications HumuLIN R U-500 KWIKPEN 500 UNIT/ML CONCENTRATED injection Generic drug: insulin regular Inject 20 Units under the skin in the morning and 20 Units in the evening. Inject before meals. What changed: additional instructions CONTINUE taking these medications albuterol 108 (90 Base) MCG/ACT inhaler Inhale 1 puff every 6 hours as needed for wheezing or shortness of breath. aspirin 81 MG EC tablet buPROPion XL 300 MG 24 hr tablet Commonly known as: Wellbutrin XL Take 1 tablet (300 mg) by mouth daily. Do not crush, chew, or split. busPIRone 10 MG tablet Commonly known as: Buspar Take 1 tablet (10 mg) by mouth 2 times daily. hydrOXYzine HCl 25 MG tablet Commonly known as: Atarax Take 1 tablet (25 mg) by mouth every 8 hours as needed for anxiety. labetalol 100 MG tablet Commonly known as: Normodyne Take 1 tablet (100 mg) by mouth in the morning and 1 tablet (100 mg) in the evening. metFORMIN 1000 MG tablet Commonly known as: Glucophage Take 1 tablet (1,000 mg) by mouth in the morning and 1 tablet (1,000 mg) in the evening. Take with meals. Unifine Pentips 31G X 8 MM misc Generic drug: insulin pen needle Use as directed with insulin pen Where to Get Your Medications These medications were sent to [facility] [address] [place], [place] [id number] [address] [address] HumuLIN R U-500 KWIKPEN 500 UNIT/ML CONCENTRATED injection Recommended Follow-up: No follow-up provider specified. Complexity of Follow up: [] Moderate Complexity: follow up within 7-14 calendar days (22095) [x] Severe Complexity: follow up within 7 calendar days (34589) Follow up Testing, Pending results or Referrals at Transitional Care Visit: [x] yes [] no Instructions to MA: Please call patient on day after discharge (must document patient contacted within 2 business days of discharge). Follow up questions for MA: 1. Did you get medications filled and taking them as instructed from discharge? 2. Are you following your discharge instructions from your hospital stay? 3. Please confirm patient is scheduled for a follow up appointment within the above time frame. Signed: Al Jones MD Division of Hospitalist Medicine Inpatient Medical Services/[facility] [place] 10/12/2023, 10:20 PM documented in this encounter [facility] 10-12-2023 Emergency department Note Pt rounded on at this time. Pt resting in bed. No signs of distress noted. Casandra Donald RN 10/12/23 1440 [facility] 10-12-2023 Emergency department Note Pt rounded on at this time. Pt resting in bed. No signs of distress noted. Casandra Donald RN 10/12/23 0902 Meal tray ordered for patient at this time. Casandra Donald RN 10/12/23 0667 Provider at bedside. Casandra Donald RN 10/12/23 1208 Pt updated on plan of care at this time. Pt resting in bed. No signs of distress noted. Casandra Donald RN 10/12/23 1051 This RN offered to place patient in hospital bed at this time. Pt denies hospital bed at this time and states her ER bed is fine for now. Casandra Donald RN 10/12/23 1004 PT/ OT at bedside. Casandra Donald RN 10/12/23 0935 Pt provided meal tray. Casandra Donald RN 10/12/23 0815 Meal tray ordered for patient at this time. Casandra Donald RN 10/12/[address] Calero notified. Instructed to give D50 and increase D10 to 150ml/hr. Kati Godfrey RN 10/11/23 3851 Pt states at breakfast she took Humulin R Kwikpen 180 units. Lunch she checked BG and it was in 200s so she took 60-80 units. States she did not eat after lunch and did not take any additional insulin Kati Godfrey RN 10/11/232024 Pt much more responsive after D50. A&Ox4. Kati Godfrey RN 10/11/232021 EMERGENCY DEPARTMENT ENCOUNTER Pt Name: Raiza Carey Birthdate 1965 Date of evaluation: 10/11/2023 ED Provider: Jeronimo Calero MD CHIEF COMPLAINT Chief Complaint Patient presents with Altered Mental Status HISTORY OF PRESENT ILLNESS (Location/Symptom, Timing/Onset, Context/Setting, Quality, Duration, Modifying Factors, Severity) Note limiting factors. I wore appropriate PPE for the entirety of this encounter. HPI Raiza Carey is a 58 y.o. with past medical history of insulin-dependent diabetes who presents to the emergency department hypoglycemic and altered. Per report from at bedside patient had taken insulin as per her usual after eating. Then became altered and they took her blood sugar at home and it was 30 called EMS. At bedside patient initially not giving any history. Encephalopathic. Glucose given and patient's GCS returned to 15. Patient states that she took 60 to 80 units of insulin after eating. Denies any chest pain shortness of breath dizziness lightheadedness vision changes back pain or any other symptoms at this time. Denies doing this to kill herself. Nursing Notes were reviewed. Limitations to history: Outside historians: REVIEW OF SYSTEMS Review of Systems All other systems reviewed and are negative. Pertinent positives and negatives as per HPI. PAST MEDICAL HISTORY Past Medical History: Diagnosis Date Anxiety Arthritis Chest pain Depression Diabetic nephropathy (CMS/HCC) (HCC) Elevated transaminase level Fatigue GERD (gastroesophageal reflux disease) Headache(784.0) Hemorrhoids Hyperlipidemia Hypertension Low back pain Neuropathic pain Obesity DONNA (obstructive sleep apnea) Rectal bleed Right leg weakness Trochanteric bursitis of left hip Bilateral Type II or unspecified type diabetes mellitus without mention of complication, not stated as uncontrolled (HCC) Uncontrolled type 2 diabetes mellitus with complication 02/19/2015 SURGICAL HISTORY Past Surgical History: Procedure Laterality Date CARDIAC CATHETERIZATION 06/03/2018 CARPAL TUNNEL RELEASE CHOLECYSTECTOMY COLONOSCOPY 2011 ENDOMETRIAL ABLATION HERNIA REPAIR TONSILLECTOMY AND ADENOIDECTOMY (HISTORICAL) CURRENT MEDICATIONS Previous Medications ALBUTEROL 108 (90 BASE) MCG/ACT INHALER Inhale 1 puff every 6 hours as needed for wheezing or shortness of breath. ASPIRIN 81 MG EC TABLET Take 81 mg by mouth daily. BUPROPION XL (WELLBUTRIN XL) 300 MG 24 HR TABLET Take 1 tablet (300 mg) by mouth daily. Do not crush, chew, or split. BUSPIRONE (BUSPAR) 10 MG TABLET Take 1 tablet (10 mg) by mouth 2 times daily. HUMULIN R U-500 KWIKPEN 500 UNIT/ML CONCENTRATED INJECTION Inject 20 Units under the skin in the morning and 20 Units in the evening. Inject before meals. 160 units at breakfast, 30 units with lunch and 120 units with dinner. HYDROXYZINE HCL (ATARAX) 25 MG TABLET Take 1 tablet (25 mg) by mouth every 8 hours as needed for anxiety. LABETALOL (NORMODYNE) 100 MG TABLET Take 1 tablet (100 mg) by mouth in the morning and 1 tablet (100 mg) in the evening. METFORMIN (GLUCOPHAGE) 1000 MG TABLET Take 1 tablet (1,000 mg) by mouth in the morning and 1 tablet (1,000 mg) in the evening. Take with meals. UNIFINE PENTIPS 31G X 8 MM MISC Use as directed with insulin pen ALLERGIES Cat hair extract, Lisinopril, and Pollen extract FAMILY HISTORY Family History Problem Relation Name Age of Onset Diabetes Mother Heart disease Father Cancer Father prostate High Blood Pressure Father Other (20482) Sister TBI Depression Mother Substance Abuse Brother Heart disease Mother Other (11[address]) Mother Depression Brother SOCIAL HISTORY Social History Socioeconomic History Marital status: Tobacco Use Smoking status: Former Packs/day: 2 Types: Cigarettes Quit date: 09/01/2013 Years since quittin.1 Smokeless tobacco: Never Substance and Sexual Activity Alcohol use: Not Currently Alcohol/week: 0.0 standard drinks of alcohol Drug use: No Social Determinants of Health Financial Resource Strain: High Risk (12/30/2022) Overall Financial Resource Strain (CARDIA) Difficulty of Paying Living Expenses: Very hard Food Insecurity: No Food Insecurity (02/11/2023) Hunger Vital Sign Worried About Running Out of Food in the Last Year: Never true Ran Out of Food in the Last Year: Never true Transportation Needs: No Transportation Needs (12/30/2022) PRAPARE - Transportation Lack of Transportation (Medical): No Lack of Transportation (Non-Medical): No Physical Activity: Inactive (02/11/2023) Exercise Vital Sign Days of Exercise per Week: 0 days Minutes of Exercise per Session: 0 min Housing Stability: Low Risk (02/11/2023) Housing Stability Vital Sign Unable to Pay for Housing in the Last Year: No Number of Places Lived in the Last Year: 2 Unstable Housing in the Last Year: No SCREENINGS Widener Coma Scale Best Eye Response: Spontaneous Best Verbal Response: Oriented Best Motor Response: Follows commands Widener Coma Scale Score: 15 NIH Stroke Scale 1A. Level of Consciousness: Alert, Keenly Responsive 1B. Ask Month and Age: Both Questions Right 1C. Blink Eyes & Squeeze Hands: Performs Both Tasks 2. Best Gaze: Normal 3. Visual: No Visual Loss 4. Facial Palsy: Normal Symmetrical Movements 5A. Motor - Left Arm: No Drift 5B. Motor - Right Arm: No Drift 6A. Motor - Left Leg: No Drift 6B. Motor - Right Leg: No Drift 7. Limb Ataxia: Absent 8. Sensory Loss: Normal 9. Best Language: No Aphasia 10. Dysarthria: [id number] Dysarthria 11. Extinction and Inattention: No Abnormality NIH Stroke Scale: 1 PHYSICAL EXAM ED Triage Vitals Temp Heart Rate Resp BP 10/11/23211810/11/23201010/11/23201510/11/232010 36 C (96.8 F) 71 19 (!) 223/96 SpO2 Temp Source Heart Rate Source Patient Position 10/11/23201110/11/232118 -- -- 93 % Temporal BP Location FiO2 (%) -- -- Physical Exam Vitals and nursing note reviewed. Constitutional: General: She is not in acute distress. Appearance: She is well-developed. She is obese. HENT: Head: Normocephalic and atraumatic. Nose: Nose normal. Mouth/Throat: Mouth: Mucous membranes are moist. Eyes: Extraocular Movements: Extraocular movements intact. Conjunctiva/sclera: Conjunctivae normal. Pupils: Pupils are equal, round, and reactive to light. Cardiovascular: Rate and Rhythm: Normal rate and regular rhythm. Pulses: Normal pulses. Heart sounds: Normal heart sounds. No murmur heard. Pulmonary: Effort: Pulmonary effort is normal. No respiratory distress. Breath sounds: Normal breath sounds. Abdominal: Palpations: Abdomen is soft. Tenderness: There is no abdominal tenderness. Musculoskeletal: General: No swelling or tenderness. Cervical back: Neck supple. Skin: General: Skin is warm and dry. Capillary Refill: Capillary refill takes less than 2 seconds. Coloration: Skin is not jaundiced. Neurological: General: No focal deficit present. Mental Status: She is alert and oriented to person, place, and time. Mental status is at baseline. Cranial Nerves: No cranial nerve deficit. Sensory: No sensory deficit. Psychiatric: Mood and Affect: Mood normal. DIAGNOSTIC RESULTS RADIOLOGY (Per Emergency Physician): Interpretation per the Radiologist below, if available at the time of this note: CT head wo IV contrast Final Result 1. No acute intracranial finding. Report Dictated on Electronically Signed By: Juan A Bo MD Electronically Signed Date/Time: 10/11/2023 9:02 PM EDT LABS: Labs Reviewed CBC WITH AUTO DIFFERENTIAL - Abnormal Result Value Auto WBC 6.1 RBC 4.98 Hemoglobin 13.1 Hematocrit 41.4 MCV 83.1 MCH 26.3 MCHC 31.6 RDW 15.5 (*) Platelets 74 (*) MPV 9.8 IPF 4 COMPREHENSIVE METABOLIC PANEL - Abnormal SODIUM 140 POTASSIUM 3.4 (*) CHLORIDE 104 CARBON DIOXIDE 26 ANION GAP 10 UREA NITROGEN 19 (*) CREATININE 0.87 GLUCOSE 27 (*) CALCIUM 9.9 AST (SGOT) 31 ALT 30 ALKALINE PHOSPHATASE 111 ALBUMIN 4.4 BILIRUBIN, TOTAL 1.3 TOTAL PROTEIN 8.7 (*) eGFR 78.3 MANUAL DIFFERENTIAL (CELLAVISION) - Abnormal RBC Morphology Normal Neutrophils % 80 Lymphocytes % 7 (*) Atypical Lymphocytes % 2 (*) Monocytes % 11 Absolute Neutrophil Count 4.9 Lymphocytes Absolute 0.4 (*) Atypical Lymphs Absolute 0.1 (*) Monocytes Absolute 0.7 Neutrophils Manual 81 Lymphocytes Manual 7 Monocytes Manual 11 Eosinophils Manual Basophils Manual Bands Manual Metamyelocytes Manual Myelocytes Manual Promyelocytes Manual Blasts Manual Atypical Lymphocytes Manual 2 Unclassified Cells, Manual POCT GLUCOSE METER UNSOLICITED RESULTS - Abnormal Glucose 54 (*) Narrative: Performed by: [facility], [address] [facility] [address] CLIA ID: [id number] POCT GLUCOSE METER UNSOLICITED RESULTS - Abnormal Glucose 129 (*) Narrative: [facility]formed by[facility] [address] [facility] [address] CLIA ID: [id number] POCT GLUCOSE METER UNSOLICITED RESULTS - Normal Glucose 80 Narrative: Performed by: [facility], [address] [facility] [address] CLIA ID: [id number] CORTISOL POCT GLUCOSE METER POCT GLUCOSE METER POCT GLUCOSE METER All other labs were within normal range or not returned as of this dictation. EMERGENCY DEPARTMENT COURSE and DIFFERENTIAL DIAGNOSIS/MDM: Vitals: Vitals: 10/11/23201510/11/23201610/11/23211810/11/232148 BP: (!) 165/69 135/88 Pulse: 64 Resp: 19 19 Temp: 36 C (96.8 F) TempSrc: Temporal SpO2: 100% The patient presented with a chief complaint of encephalopathy. The differential diagnosis associated with this patient's presentation includes hypoglycemia electrolyte abnormality head bleed. Our workup consisted of ordering/reviewing lab work and imaging. Patient initially hypoglycemic given multiple rounds of D50 placed on D10 drip along with steroids. Differential does include adrenal insufficiency secondary to withdrawal from recent steroids abruptly. Given methylprednisolone. Repeat sugars low given more D50 placed on the 10 drip up to 150 mL patient mid to medicine for further care as GCS improved 15. CT head negative for any acute finding other lab work negative. ED Course as of 10/11/232244Oct 11, 20232131 CT head wo IV contrast [RM] ED Course User Index [RM] Jeronimo Calero MD Diagnoses as of 10/11/232244 Hypoglycemia External records reviewed: Diagnostics interpreted by me: Discussions with other clinicians: Chronic conditions impacting care: Social determinants of health affecting care: ED Medications managed: Medications dextrose 50 % solution 50 mL (50 mL IntraVENous Given 10/11/232011) dextrose 10 % infusion (150 mL/hr IntraVENous Rate/Dose Change 10/11/232116) methylPREDNISolone sodium succinate (PF) (SOLU-Medrol) injection 125 mg (125 mg IntraVENous Given 10/11/232045) dextrose 50 % solution 50 mL (50 mL IntraVENous Given 10/11/232114) Prescription drugs considered: PROCEDURES: Unless otherwise noted below, none Procedures FINAL IMPRESSION 1. Hypoglycemia DISPOSITION Admit 10/11/2023 10:44:01 PM PATIENT REFERRED TO: No follow-up provider specified. DISCHARGE MEDICATIONS: New Prescriptions No medications on file (Comment: Please note this report has been produced using speech recognition software and may contain errors related to that system including errors in grammar, punctuation, and spelling, as well as words and phrases that may be inappropriate. If there are any questions or concerns please feel free to contact the dictating provider for clarification.) Jeronimo Calero MD (electronically signed) Emergency Medicine Provider Jeronimo Calero MD Resident 10/11/23 9128 Pt arrives via [private vehicle for concern for hypoglycemia. states it was 38. BG upon arrival 79. Pt lethargic and responding to pain upon arrival. Not able to respond to questions. Dr Max bedside. Pt clammy and has redness to face upon arrival documented in this encounter [facility] 10-12-2023 Emergency department Note Meal tray ordered for patient at this time. Casandra Donald RN 10/12/23 1224 [facility] 10-12-2023 Emergency department Note Provider at bedside. Casandra Donald RN 10/12/23 1208 [facility] 10-12-2023 Emergency department Note Pt updated on plan of care at this time. Pt resting in bed. No signs of distress noted. Casandra Donald RN 10/12/23 1051 [facility] 10-12-2023 Emergency department Note This RN offered to place patient in hospital bed at this time. Pt denies hospital bed at this time and states her ER bed is fine for now. Casandra Donald RN 10/12/23 1004 [facility] 10-12-2023 Emergency department Note PT/ OT at bedside. Casandra Donald RN 10/12/23 0935 T [facility] 10-12-2023 Emergency department Note Pt provided meal tray. Casandra Donald RN 10/12/23 0815 T [facility] 10-12-2023 Consult note Associated Order (s): IP CONSULT TO ENDOCRINOLOGY Department of Internal Medicine Division of Endocrinology, Diabetes, & Metabolism Endocrinology Note Patient Name: Melanie Carey : 1965 AGE: 58 y.o. Room/Bed: Admission Date: 10/11/2023 Visit Date: 10/12/2023 Reason for Endocrine Consult: Symptomatic hypoglycemia/on insulin - DM Provider/Team Requesting Consult: Dr. Flannery PCP: See Ricketts MD Outpt [employer] Insurance: No ASSESSMENT: Type II DM with hypoglycemia, with long-term insulin use Encephalopathy Altered Mental Status PLAN: Start Lantus Start Humalog 5 units TID with meals Start Humalog low dose sliding scale TID with meals Methylprednisolone 125 mg one time dose administered 10/11/2023 at 2045 Received Dextrose ICU goal <180 GMF goal <150 POCT BG ACHS Hypoglycemia management per protocol Carb controlled diet ANTICIPATED ENDOCRINE HOME GOING RECOMMENDATIONS: Optimized for Discharge from Endocrine standpoint: Yes Home Going Endocrine Rx Recommendations-- U500 20 units before breakfast and 20 units before dinner. Metformin 1000 mg BID with meals Recommend Gvoke HypoPen 2-Pack) 0.5 MG/0.1ML injection PRN for hypoglycemia - Coupon provided to patient. Patient to send blood sugar logs in 2-3 days to PCP for follow up Outpt Follow Up-- PCP - Per patient request SUBJECTIVE/HPI: CHIEF COMPLAINT: Chief Complaint Patient presents with Altered Mental Status Raiza Carey is a 58 y.o. with past medical history of insulin-dependent diabetes who presents to the emergency department hypoglycemic and altered. Per report from at bedside patient had taken insulin as per her usual after eating. Then became altered and they took her blood sugar at home and it was 30 called EMS. At bedside patient initially not giving any history. Encephalopathic. Glucose given and patient's GCS returned to 15. Patient states that she took 60 to 80 units of insulin after eating. Denies any chest pain shortness of breath dizziness lightheadedness vision changes back pain or any other symptoms at this time. Denies doing this to kill herself. PMH: Anxiety, Arthritis, Depression, Diabetic Nephropathy, GERD, HLD, HTN, DONNA, Trochanteric bursitis of hip bilateral, T2DM, Patient reports she was hospitalized for hypoglycemia in February. She was sent home with different insulin doses but did not recall what those were so she resumed her dose on the prescription label of her insulin. Patient reports she takes 160 units in the morning, 30 before lunch and 120 before dinner. She reports she skips mulitiple doses due to risk for lows. She reports taking her 160 units maybe 3 times weekly and will either take the lunch or the dinner dose but never both. She also reports if her blood sugar is below 200 before dinner, she doesn't take her u500 at dinner. Breakfast: Weekdays 2 packets of oatmeal and 4 slices of toast Weekends: Skips - doesn't take morning insulin Type of DM: 2 Onset of DM: 1994 Home DM Medication Regimen: Metformin 1000 mg BID, U500 160/30/120 units before meals DM control (last A1c/glucose data): Lab Results Component Value Date HGBA1C 6.9 (H) 08/26/2023 Glucose Date/Time Value Ref Range Status 10/12/2023 07:26 AM 218 (H) 70 - 100 mg/dL Final 10/12/2023 04:08 AM 207 (H) 70 - 100 mg/dL Final 10/12/2023 02:15 AM 126 (H) 70 - 100 mg/dL Final 10/12/2023 12:42 AM 90 70 - 100 mg/dL Final 10/11/2023 11:35 PM 108 (H) 70 - 100 mg/dL Final 10/11/2023 10:36 PM 129 (H) 70 - 100 mg/dL Final Glucose Blood, POC Date/Time Value Ref Range Status 10/12/2023 04:09 AM 207 mg/dL Final 10/12/2023 02:15 AM 126 mg/dL Final 10/12/2023 12:42 AM 90 mg/dL Final 10/11/2023 11:35 PM 108 mg/dL Final Review of Systems Constitutional: Positive for fatigue. Negative for activity change, appetite change, chills, fever and unexpected weight change. HENT: Negative for trouble swallowing and voice change. Eyes: Negative for visual disturbance. Respiratory: Negative for chest tightness and shortness of breath. Cardiovascular: Negative for chest pain, palpitations and leg swelling. Gastrointestinal: Negative for abdominal pain, constipation, diarrhea, nausea and vomiting. Endocrine: Negative for polydipsia, polyphagia and polyuria. Genitourinary: Negative for difficulty urinating. Skin: Negative for rash and wound. Neurological: Negative for weakness. Psychiatric/Behavioral: Negative for sleep disturbance. All other systems reviewed and are negative. ROS negative except for those mentioned in HPI. OBJECTIVE: Vitals: 10/12/23 0300 10/12/23 0500 10/12/23 0600 10/12/23 0730 BP: (!) 151/75 130/80 126/74 134/71 BP Location: Left arm Left arm Left arm Patient Position: Sitting Sitting Sitting Pulse: 71 69 68 74 Resp: 15 Temp: TempSrc: SpO2: 97% 93% 95% 96% Physical Exam Vitals reviewed. Constitutional: General: She is not in acute distress. Appearance: Normal appearance. She is not ill-appearing, toxic-appearing or diaphoretic. HENT: Head: Normocephalic and atraumatic. Nose: Nose normal. Mouth/Throat: Mouth: Mucous membranes are moist. Eyes: General: No scleral icterus. Right eye: No discharge. Left eye: No discharge. Conjunctiva/sclera: Conjunctivae normal. Cardiovascular: Rate and Rhythm: Normal rate and regular rhythm. Pulses: Normal pulses. Heart sounds: Normal heart sounds. Pulmonary: Effort: Pulmonary effort is normal. No respiratory distress. Breath sounds: Normal breath sounds. Musculoskeletal: Cervical back: Normal range of motion. Right lower leg: No edema. Left lower leg: No edema. Skin: General: Skin is warm. Neurological: General: No focal deficit present. Mental Status: She is alert and oriented to person, place, and time. Psychiatric: Mood and Affect: Mood normal. Behavior: Behavior normal. 24 hour intake/output: Intake/Output Summary (Last 24 hours) at 10/12/2023 0756 Last data filed at 10/12/2023 0416 Gross per 24 hour Intake 513.75 ml Output -- Net 513.75 ml Diet: Adult diet Regular Medications (as per EMR): HomeMeds: Current Outpatient Medications Medication Instructions albuterol 108 (90 Base) MCG/ACT inhaler 1 puff, Inhalation, Every 6 hours PRN aspirin 81 mg, Oral, Daily buPROPion XL (WELLBUTRIN XL) 300 mg, Oral, Daily, Do not crush, chew, or split. busPIRone (BUSPAR) 10 mg, Oral, 2 times daily HumuLIN R U-500 KWIKPEN 20 Units, SubCUTAneous, 2 times daily before meals, 160 units at breakfast, 30 units with lunch and 120 units with dinner hydrOXYzine HCl (ATARAX) 25 mg, Oral, Every 8 hours PRN labetalol (NORMODYNE) 100 mg, Oral, Every 12 hours metFORMIN (GLUCOPHAGE) 1,000 mg, Oral, 2 times daily with meals Unifine Pentips 31G X 8 MM misc Use as directed with insulin pen Scheduled Meds:aspirin, 81 mg, Oral, Daily labetalol, 100 mg, Oral, q12h Continuous Infusions:sodium chloride, 50 mL/hr, Last Rate: 50 mL/hr (10/12/23 0635) PRN Meds:PRN medications: acetaminophen OR acetaminophen, albuterol, ondansetron ODT OR ondansetron, polyethylene glycol (PEG) 3350 Diagnostic Workup: I reviewed pertinent Laboratory results, Radiographic results, and Other Clinical Notes at the time of today's encounter. Labs: No components found for: LABA1C No components found for: EAG Lab Results Component Value Date NA 133 (L) 10/12/2023 K 4.8 10/12/2023 CL 103 10/12/2023 CO2 23 10/12/2023 BUN 22 (H) 10/12/2023 CREATININE 0.81 10/12/2023 GLUCOSE 248 (H) 10/12/2023 CALCIUM 9.2 10/12/2023 Lab Results Component Value Date CHLPL 118 04/16/2021 CHOL 103 01/15/2020 Lab Results Component Value Date TRIG 192 04/16/2021 TRIG 162 (A) 01/15/2020 Lab Results Component Value Date HDL 32 (A) 04/16/2021 HDL 28 (L) 01/15/2020 Lab Results Component Value Date LDLCALC 48 04/16/2021 Lab Results Component Value Date VLDL 38 04/16/2021 Lab Results Component Value Date CHOLHDLRATIO 4 01/15/2020 No results found for: [id number] No results found for: TSH, Y6LIELJ, S0YCMQD, THYROIDAB Radiology reportsas per the Radiologist Radiology: POCT glucose meter Result Date: 10/12/2023 Performed by: [facility], [address] [place] [address] CLIA ID: [id number] ECG 12 lead Sinus rhythm with normal rate, intervals and QRS duration. No acute ischemic changes. Nonspecific INTRAVENTRICULAR CONDUCTION DELAY, similar to prior No acute ischemic changes Similar to previous EKG Electronically Signed On 10-12-2023 04:24:23 EDT by Jarad Ortiz POCT glucose meter Result Date: 10/12/2023 Performed by: [facility], [address] [place] [address] CLIA ID: [id number] POCT glucose meter Result Date: 10/12/2023 Performed by: [facility], [address] [place] [address] CLIA ID: [id number] POCT glucose meter Result Date: 10/12/2023 Performed by: [facility], [address] [place] [address] CLIA ID: [id number] POCT glucose meter Result Date: 10/11/2023 [facility]formed by: [facility], [address] [place] [address] CLIA ID: [id number] POCT glucose meter Result Date: 10/11/2023 Performed by: [facility], [address] [facility] [address] CLIA ID: [id number] POCT glucose meter Result Date: 10/11/2023 Performed by: [facility], [address] [place] [address] CLIA ID: [id number] CT head wo IV contrast Result Date: 10/11/2023 Patient Name: MELANIE TOVAR : 1965 [facility]#: [id number] Exam Date/Time: 10/11/2023 20:59 Procedure: CT HEAD WO IV CONTRAST Ordering Provider: MAX VISHNU Reason For Exam: Mental status change, unknown cause CT BRAIN WITHOUT CONTRAST CLINICAL INDICATION: Mental status change, unknown cause TECHNIQUE: Noncontrast CT scan of the brain. Multiplanar reformations. Dose reduction was employed with automated exposure control. COMPARISON: None FINDINGS: Brain volume is normal for age. No hemorrhage, mass effect, or midline shift. No hydrocephalus. No pathologic extra-axial fluid collection. Normal basal cisterns. No evidence of acute cortical infarct. 1. No acute intracranial finding. Report Dictated on Electronically Signed By: Juan A Bo MD Electronically Signed Date/Time: 10/11/2023 9:02 PM EDT POCT glucose meter Result Date: 10/11/2023 [facility]formed by: [facility], [address] [place] [address] CLIA ID: [id number] History/Other: Past Medical History: Past Medical History: Diagnosis Date Anxiety Arthritis Chest pain Depression Diabetic nephropathy (CMS/HCC) (HCC) Elevated transaminase level Fatigue GERD (gastroesophageal reflux disease) Headache(784.0) Hemorrhoids Hyperlipidemia Hypertension Low back pain Neuropathic pain Obesity DONNA (obstructive sleep apnea) Rectal bleed Right leg weakness Trochanteric bursitis of left hip Bilateral Type II or unspecified type diabetes mellitus without mention of complication, not stated as uncontrolled (HCC) Uncontrolled type 2 diabetes mellitus with complication 02/19/2015 Past Surgical History: Past Surgical History: Procedure Laterality Date CARDIAC CATHETERIZATION 06/03/2018 CARPAL TUNNEL RELEASE CHOLECYSTECTOMY COLONOSCOPY 2012 ENDOMETRIAL ABLATION HERNIA REPAIR TONSILLECTOMY AND ADENOIDECTOMY (HISTORICAL) Allergy(ies): Allergies Allergen Reactions Cat Hair Extract Anaphylaxis and Swelling Lisinopril Angioedema Pollen Extract Unknown Family History: Family History Problem Relation Name Age of Onset Diabetes Mother Heart disease Father Cancer Father prostate High Blood Pressure Father Other ([id number]) Sister TBI Depression Mother Substance Abuse Brother Heart disease Mother Other ([id number]) Mother Depression Brother Social History: Social History Tobacco Use Smoking status: Former Packs/day: 2 Types: Cigarettes Quit date: 09/01/2013 Years since quittin.1 Smokeless tobacco: Never Substance Use Topics Alcohol use: Not Currently Alcohol/week: 0.0 standard drinks of alcohol Drug use: No Portions of the information within this encounter were entered using an electronic dictation system. Best attempts were made to edit/proofread the information prior to note completion. Despite the review of information, some errors may remain. If there are questions related to the information contained within the note please contact the signing physician directly. I spent 75 minutes with the pt which involved coordination of care, medical evaluation, review of records, and/or counseling of the pt regarding his/her condition/disease state/prognosis on the date of this note. [facility] 10-12-2023 Consult note Associated Order (s): IP CONSULT TO ENDOCRINOLOGY Department of Internal Medicine Division of Endocrinology, Diabetes, & Metabolism Endocrinology Note Patient Name: Melanie Carey : 1965 AGE: 58 y.o. Room/Bed: Admission Date: 10/11/2023 Visit Date: 10/12/2023 Reason for Endocrine Consult: Symptomatic hypoglycemia/on insulin - DM Provider/Team Requesting Consult: Dr. Flannery PCP: See Ricketts MD Outpt [employer]: No ASSESSMENT: Type II DM with hypoglycemia, with long-term insulin use Encephalopathy Altered Mental Status PLAN: Start Lantus Start Humalog 5 units TID with meals Start Humalog low dose sliding scale TID with meals Methylprednisolone 125 mg one time dose administered 10/11/2023 at 2044 Received Dextrose ICU goal <180 GMF goal <150 POCT BG ACHS Hypoglycemia management per protocol Carb controlled diet ANTICIPATED ENDOCRINE HOME GOING RECOMMENDATIONS: Optimized for Discharge from Endocrine standpoint: Yes Home Going Endocrine Rx Recommendations-- U500 20 units before breakfast and 20 units before dinner. Metformin 1000 mg BID with meals Recommend Gvoke HypoPen 2-Pack) 0.5 MG/0.1ML injection PRN for hypoglycemia - Coupon provided to patient. Patient to send blood sugar logs in 2-3 days to PCP for follow up Outpt Follow Up-- PCP - Per patient request SUBJECTIVE/HPI: CHIEF COMPLAINT: Chief Complaint Patient presents with Altered Mental Status Raiza Carey is a 58 y.o. with past medical history of insulin-dependent diabetes who presents to the emergency department hypoglycemic and altered. Per report from at bedside patient had taken insulin as per her usual after eating. Then became altered and they took her blood sugar at home and it was 30 called EMS. At bedside patient initially not giving any history. Encephalopathic. Glucose given and patient's GCS returned to 15. Patient states that she took 60 to 80 units of insulin after eating. Denies any chest pain shortness of breath dizziness lightheadedness vision changes back pain or any other symptoms at this time. Denies doing this to kill herself. PMH: Anxiety, Arthritis, Depression, Diabetic Nephropathy, GERD, HLD, HTN, DONNA, Trochanteric bursitis of hip bilateral, T2DM, Patient reports she was hospitalized for hypoglycemia in February. She was sent home with different insulin doses but did not recall what those were so she resumed her dose on the prescription label of her insulin. Patient reports she takes 160 units in the morning, 30 before lunch and 120 before dinner. She reports she skips mulitiple doses due to risk for lows. She reports taking her 160 units maybe 3 times weekly and will either take the lunch or the dinner dose but never both. She also reports if her blood sugar is below 200 before dinner, she doesn't take her u500 at dinner. Breakfast: Weekdays 2 packets of oatmeal and 4 slices of toast Weekends: Skips - doesn't take morning insulin Type of DM: 2 Onset of DM: 1994 Home DM Medication Regimen: Metformin 1000 mg BID, U500 160/30/120 units before meals DM control (last A1c/glucose data): Lab Results Component Value Date HGBA1C 6.9 (H) 08/26/2023 Glucose Date/Time Value Ref Range Status 10/12/2023 07:26 AM 218 (H) 70 - 100 mg/dL Final 10/12/2023 04:08 AM 207 (H) 70 - 100 mg/dL Final 10/12/2023 02:15 AM 126 (H) 70 - 100 mg/dL Final 10/12/2023 12:42 AM 90 70 - 100 mg/dL Final 10/11/2023 11:35 PM 108 (H) 70 - 100 mg/dL Final 10/11/2023 10:36 PM 129 (H) 70 - 100 mg/dL Final Glucose Blood, POC Date/Time Value Ref Range Status 10/12/2023 04:09 AM 207 mg/dL Final 10/12/2023 02:15 AM 126 mg/dL Final 10/12/2023 12:42 AM 90 mg/dL Final 10/11/2023 11:35 PM 108 mg/dL Final Review of Systems Constitutional: Positive for fatigue. Negative for activity change, appetite change, chills, fever and unexpected weight change. HENT: Negative for trouble swallowing and voice change. Eyes: Negative for visual disturbance. Respiratory: Negative for chest tightness and shortness of breath. Cardiovascular: Negative for chest pain, palpitations and leg swelling. Gastrointestinal: Negative for abdominal pain, constipation, diarrhea, nausea and vomiting. Endocrine: Negative for polydipsia, polyphagia and polyuria. Genitourinary: Negative for difficulty urinating. Skin: Negative for rash and wound. Neurological: Negative for weakness. Psychiatric/Behavioral: Negative for sleep disturbance. All other systems reviewed and are negative. ROS negative except for those mentioned in HPI. OBJECTIVE: Vitals: 10/12/23 0300 10/12/23 0500 10/12/23 0600 10/12/23 0730 BP: (!) 151/75 130/80 126/74 134/71 BP Location: Left arm Left arm Left arm Patient Position: Sitting Sitting Sitting Pulse: 71 69 68 74 Resp: 15 Temp: TempSrc: SpO2: 97% 93% 95% 96% Physical Exam Vitals reviewed. Constitutional: General: She is not in acute distress. Appearance: Normal appearance. She is not ill-appearing, toxic-appearing or diaphoretic. HENT: Head: Normocephalic and atraumatic. Nose: Nose normal. Mouth/Throat: Mouth: Mucous membranes are moist. Eyes: General: No scleral icterus. Right eye: No discharge. Left eye: No discharge. Conjunctiva/sclera: Conjunctivae normal. Cardiovascular: Rate and Rhythm: Normal rate and regular rhythm. Pulses: Normal pulses. Heart sounds: Normal heart sounds. Pulmonary: Effort: Pulmonary effort is normal. No respiratory distress. Breath sounds: Normal breath sounds. Musculoskeletal: Cervical back: Normal range of motion. Right lower leg: No edema. Left lower leg: No edema. Skin: General: Skin is warm. Neurological: General: No focal deficit present. Mental Status: She is alert and oriented to person, place, and time. Psychiatric: Mood and Affect: Mood normal. Behavior: Behavior normal. 24 hour intake/output: Intake/Output Summary (Last 24 hours) at 10/12/2023 0756 Last data filed at 10/12/2023 0416 Gross per 24 hour Intake 513.75 ml Output -- Net 513.75 ml Diet: Adult diet Regular Medications (as per EMR): HomeMeds: Current Outpatient Medications Medication Instructions albuterol 108 (90 Base) MCG/ACT inhaler 1 puff, Inhalation, Every 6 hours PRN aspirin 81 mg, Oral, Daily buPROPion XL (WELLBUTRIN XL) 300 mg, Oral, Daily, Do not crush, chew, or split. busPIRone (BUSPAR) 10 mg, Oral, 2 times daily HumuLIN R U-500 KWIKPEN 20 Units, SubCUTAneous, 2 times daily before meals, 160 units at breakfast, 30 units with lunch and 120 units with dinner hydrOXYzine HCl (ATARAX) 25 mg, Oral, Every 8 hours PRN labetalol (NORMODYNE) 100 mg, Oral, Every 12 hours metFORMIN (GLUCOPHAGE) 1,000 mg, Oral, 2 times daily with meals Unifine Pentips 31G X 8 MM misc Use as directed with insulin pen Scheduled Meds:aspirin, 81 mg, Oral, Daily labetalol, 100 mg, Oral, q12h Continuous Infusions:sodium chloride, 50 mL/hr, Last Rate: 50 mL/hr (10/12/23 0635) PRN Meds:PRN medications: acetaminophen OR acetaminophen, albuterol, ondansetron ODT OR ondansetron, polyethylene glycol (PEG) 3350 Diagnostic Workup: I reviewed pertinent Laboratory results, Radiographic results, and Other Clinical Notes at the time of today's encounter. Labs: No components found for: LABA1C No components found for: EAG Lab Results Component Value Date NA 133 (L) 10/12/2023 K 4.8 10/12/2023 CL 103 10/12/2023 CO2 23 10/12/2023 BUN 22 (H) 10/12/2023 CREATININE 0.81 10/12/2023 GLUCOSE 248 (H) 10/12/2023 CALCIUM 9.2 10/12/2023 Lab Results Component Value Date CHLPL 118 04/16/2021 CHOL 103 01/15/2020 Lab Results Component Value Date TRIG 192 04/16/2021 TRIG 162 (A) 01/15/2020 Lab Results Component Value Date HDL 32 (A) 04/16/2021 HDL 28 (L) 01/15/2020 Lab Results Component Value Date LDLCALC 48 04/16/2021 Lab Results Component Value Date VLDL 38 04/16/2021 Lab Results Component Value Date CHOLHDLRATIO 4 01/15/2020 No results found for: [id number] No results found for: TSH, E0TAQUO, B3WLKAS, THYROIDAB Radiology reportsas per the Radiologist Radiology: POCT glucose meter Result Date: 10/12/2023 Performed by: [facility], [address] [place] [id number] CLIA ID: [id number] ECG 12 lead Sinus rhythm with normal rate, intervals and QRS duration. No acute ischemic changes. Nonspecific INTRAVENTRICULAR CONDUCTION DELAY, similar to prior No acute ischemic changes Similar to previous EKG Electronically Signed On 10-12-2023 04:24:23 EDT by Jarad Ortiz POCT glucose meter Result Date: 10/12/2023 Performed by: [facility] [place] [facility], [address] [facility] [address] CLIA ID: [id number] POCT glucose meter Result Date: 10/12/2023 [facility]formed [facility]: [facility] [place] [facility], [address] [place], [facility] [address] CLIA ID: [id number] POCT glucose meter Result Date: 10/12/2023 Performed by: [facility] [place] [facility], [address] [place], [facility] [address] CLIA ID: [id number] POCT glucose meter Result Date: 10/11/2023 Performed by: [facility], [address], [place] [address] CLIA ID: [id number] POCT glucose meter Result Date: 10/11/2023 Performed by: [facility] [place] [facility], [address], [facility] [address] CLIA ID: [id number] POCT glucose meter Result Date: 10/11/2023 Performed by: [facility] [place] [facility] [address] [facility] [address] CLIA ID: [id number] CT head wo IV contrast Result Date: 10/11/2023 [facility] Name[facility] 1965 [id number] Exam Date/Time: 10/11/2023 20:59 Procedure: CT HEAD WO IV CONTRAST Ordering Provider: MAX VISHNU Reason For Exam: Mental status change, unknown cause CT BRAIN WITHOUT CONTRAST CLINICAL INDICATION: Mental status change, unknown cause TECHNIQUE: Noncontrast CT scan of the brain. Multiplanar reformations. Dose reduction was employed with automated exposure control. COMPARISON: None FINDINGS: Brain volume is normal for age. No hemorrhage, mass effect, or midline shift. No hydrocephalus. No pathologic extra-axial fluid collection. Normal basal cisterns. No evidence of acute cortical infarct. 1. No acute intracranial finding. Report Dictated on Electronically Signed By: Juan A Bo MD Electronically Signed Date/Time: 10/11/2023 9:02 PM EDT POCT glucose meter Result Date: 10/11/2023 Performed by: [facility] [place] [facility], [address], [facility] [address] CLIA ID: [id number] History/Other: Past Medical History: Past Medical History: Diagnosis Date Anxiety Arthritis Chest pain Depression Diabetic nephropathy (CMS/HCC) (HCC) Elevated transaminase level Fatigue GERD (gastroesophageal reflux disease) Headache(784.0) Hemorrhoids Hyperlipidemia Hypertension Low back pain Neuropathic pain Obesity DONNA (obstructive sleep apnea) Rectal bleed Right leg weakness Trochanteric bursitis of left hip Bilateral Type II or unspecified type diabetes mellitus without mention of complication, not stated as uncontrolled (HCC) Uncontrolled type 2 diabetes mellitus with complication 02/19/2015 Past Surgical History: Past Surgical History: Procedure Laterality Date CARDIAC CATHETERIZATION 06/03/2018 CARPAL TUNNEL RELEASE CHOLECYSTECTOMY COLONOSCOPY 2011 ENDOMETRIAL ABLATION HERNIA REPAIR TONSILLECTOMY AND ADENOIDECTOMY (HISTORICAL) Allergy(ies): Allergies Allergen Reactions Cat Hair Extract Anaphylaxis and Swelling Lisinopril Angioedema Pollen Extract Unknown Family History: Family History Problem Relation Name Age of Onset Diabetes Mother Heart disease Father Cancer Father prostate High Blood Pressure Father Other ([id number]) Sister TBI Depression Mother Substance Abuse Brother Heart disease Mother Other ([id number]) Mother Depression Brother Social History: Social History Tobacco Use Smoking status: Former Packs/day: 2 Types: Cigarettes Quit date: 09/01/2013 Years since quittin.1 Smokeless tobacco: Never Substance Use Topics Alcohol use: Not Currently Alcohol/week: 0.0 standard drinks of alcohol Drug use: No Portions of the information within this encounter were entered using an electronic dictation system. Best attempts were made to edit/proofread the information prior to note completion. Despite the review of information, some errors may remain. If there are questions related to the information contained within the note please contact the signing physician directly. I spent 75 minutes with the pt which involved coordination of care, medical evaluation, review of records, and/or counseling of the pt regarding his/her condition/disease state/prognosis on the date of this note. documented in this encounter [facility] 10-12-2023 Emergency department Note Meal tray ordered for patient at this time. Casandra Donald RN 10/12/23 5090 [facility] 10-11-2023 History and physical note Images from the original note were not included. Attending History and Physical Admit Date: 10/11/2023 PCP: See Ricketts MD CHIEF COMPLAINT: altered mental status/hypoglycemia Reason for Admission: altered mental status/hypoglycemia History Obtained From: patient/chart HISTORY OF PRESENT ILLNESS: Melanie is a 58 y.o. female with past medical history below who presents with chief complaint listed above. She developed confusion/altered mental status earlier today. She was extremely weak and almost fell. She was found to be hypoglycemic. She is on insulin at home. She does not see an [employer]. She denies cp, sob, cough, n/v, f/c. She is much better currently after Dextrose Ivs. Will admit for further evaluation and management. Seen and examined in the ED. D/w pt and at bedside. Past Medical History: Past Medical History: Diagnosis Date Anxiety Arthritis Chest pain Depression Diabetic nephropathy (CMS/HCC) (HCC) Elevated transaminase level Fatigue GERD (gastroesophageal reflux disease) Headache(784.0) Hemorrhoids Hyperlipidemia Hypertension Low back pain Neuropathic pain Obesity DONNA (obstructive sleep apnea) Rectal bleed Right leg weakness Trochanteric bursitis of left hip Bilateral Type II or unspecified type diabetes mellitus without mention of complication, not stated as uncontrolled (HCC) Uncontrolled type 2 diabetes mellitus with complication 02/19/2015 Past Surgical History: Past Surgical History: Procedure Laterality Date CARDIAC CATHETERIZATION 06/03/2018 CARPAL TUNNEL RELEASE CHOLECYSTECTOMY COLONOSCOPY 2011 ENDOMETRIAL ABLATION HERNIA REPAIR TONSILLECTOMY AND ADENOIDECTOMY (HISTORICAL) Social History: Social History Socioeconomic History Marital status: Spouse name: Not on file Number of children: Not on file Years of education: Not on file Highest education level: Not on file Occupational History Not on file Tobacco Use Smoking status: Former Packs/day: 2 Types: Cigarettes Quit date: 09/01/2013 Years since quittin.1 Smokeless tobacco: Never Substance and Sexual Activity Alcohol use: Not Currently Alcohol/week: 0.0 standard drinks of alcohol Drug use: No Sexual activity: Not on file Other Topics Concern Not on file Social History Narrative Not on file Social Determinants of Health Financial Resource Strain: High Risk (12/30/2022) Overall Financial Resource Strain (CARDIA) Difficulty of Paying Living Expenses: Very hard Food Insecurity: No Food Insecurity (02/11/2023) Hunger Vital Sign Worried About Running Out of Food in the Last Year: Never true Ran Out of Food in the Last Year: Never true Transportation Needs: No Transportation Needs (12/30/2022) PRAPARE - Transportation Lack of Transportation (Medical): No Lack of Transportation (Non-Medical): No Physical Activity: Inactive (02/11/2023) Exercise Vital Sign Days of Exercise per Week: 0 days Minutes of Exercise per Session: 0 min Stress: Not on file Social Connections: Not on file Intimate Partner Violence: Not on file Housing Stability: Low Risk (02/11/2023) Housing Stability Vital Sign Unable to Pay for Housing in the Last Year: No Number of Places Lived in the Last Year: 2 Unstable Housing in the Last Year: No Family History: Family History Problem Relation Name Age of Onset Diabetes Mother Heart disease Father Cancer Father prostate High Blood Pressure Father Other ([id number]) Sister TBI Depression Mother Substance Abuse Brother Heart disease Mother Other ([id number]) Mother Depression Brother Medications Prior to Admission: No current facility-administered medications on file prior to encounter. Current Outpatient Medications on File Prior to Encounter Medication Sig Dispense Refill albuterol 108 (90 Base) MCG/ACT inhaler Inhale 1 puff every 6 hours as needed for wheezing or shortness of breath. 18 g 11 aspirin 81 MG EC tablet Take 81 mg by mouth daily. buPROPion XL (Wellbutrin XL) 300 MG 24 hr tablet Take 1 tablet (300 mg) by mouth daily. Do not crush, chew, or split. 90 tablet 1 busPIRone (Buspar) 10 MG tablet Take 1 tablet (10 mg) by mouth 2 times daily. 60 tablet 3 HumuLIN R U-500 KWIKPEN 500 UNIT/ML CONCENTRATED injection Inject 20 Units under the skin in the morning and 20 Units in the evening. Inject before meals. 160 units at breakfast, 30 units with lunch and 120 units with dinner. 2.4 mL 0 hydrOXYzine HCl (Atarax) 25 MG tablet Take 1 tablet (25 mg) by mouth every 8 hours as needed for anxiety. 90 tablet 3 labetalol (Normodyne) 100 MG tablet Take 1 tablet (100 mg) by mouth in the morning and 1 tablet (100 mg) in the evening. 60 tablet 3 metFORMIN (Glucophage) 1000 MG tablet Take 1 tablet (1,000 mg) by mouth in the morning and 1 tablet (1,000 mg) in the evening. Take with meals. 30 tablet 3 Unifine Pentips 31G X 8 MM misc Use as directed with insulin pen 100 each 1 Allergies: Allergies Allergen Reactions Cat Hair Extract Anaphylaxis and Swelling Lisinopril Angioedema Pollen Extract Unknown REVIEW OF SYSTEMS: As per HPI otherwise 10 system review is unremarkable. Vitals: BP (!) 165/69 Pulse 71 Temp 36 C (96.8 F) (Temporal) Resp 19 SpO2 93% BMI Classification: Overweight (BMI 25.0-29.9) Pulse Ox: SpO2 Av % Min: 93 % Max: 93 % Supplemental O2: PHYSICAL EXAM: Physical Exam Vitals and nursing note reviewed. Constitutional: General: She is not in acute distress. Appearance: She is obese. HENT: Head: Normocephalic and atraumatic. Mouth/Throat: Pharynx: Oropharynx is clear. Eyes: Extraocular Movements: Extraocular movements intact. Conjunctiva/sclera: Conjunctivae normal. Pupils: Pupils are equal, round, and reactive to light. Cardiovascular: Rate and Rhythm: Normal rate and regular rhythm. Pulses: Normal pulses. Heart sounds: Murmur heard. Pulmonary: Effort: Pulmonary effort is normal. Breath sounds: Normal breath sounds. Abdominal: General: Bowel sounds are normal. There is no distension. Palpations: Abdomen is soft. Tenderness: There is no abdominal tenderness. There is no rebound. Musculoskeletal: General: Normal range of motion. Cervical back: Neck supple. Right lower leg: No edema. Left lower leg: No edema. Skin: General: Skin is warm and dry. Capillary Refill: Capillary refill takes less than 2 seconds. Neurological: General: No focal deficit present. Mental Status: She is alert and oriented to person, place, and time. Mental status is at baseline. Psychiatric: Mood and Affect: Mood normal. DATA: CBC: Recent Labs 10/11/232025 WBC 6.1 RBC 4.98 HGB 13.1 HCT 41.4 MCV 83.1 RDW 15.5* PLT 74* BMP: Recent Labs 10/11/232025 NA 140 K 3.4* CL 104 CO2 26 BUN 19* CREATININE 0.87 GLUCOSE 27* CALCIUM 9.9 ANIONGAP 10 LIVER PROFILE: Recent Labs 10/11/232025 AST 31 ALT 30 BILITOT 1.3 ALKPHOS 111 PROT 8.7* PT/INR: No results for input(s): PROTIME, INR in the last 72 hours. CARDIAC ENZYMES: No results for input(s): TROPONINI in the last 72 hours. Procalcitonin: No results found for: PROCAL Urine Culture: Results for orders placed or performed in visit on 08/26/23 Urine culture (clean catch) Specimen: Urine, Clean Catch Result Value Ref Range Urine Culture SEE NOTE (A) COVID-19 PCR: No results for input(s): COVID19 in the last 72 hours. I reviewed: [x] laboratory results [x] radiographic results At the time of today's encounter. Pt was advised of the results. Assessment Altered mental status Near syncope Hypoglycemia Hypokalemia HTN DM2 with hypoglycemia Thrombocytopenia GERD Hyperlipidemia Neuropathy DONNA Depression/anxiety Obesity Plan I discussed management with the ED clinician and agree with the need for hospitalization, D5 IVF, hold all insulin, follow BG closely, Endocrinology evaluation, replace K, follow up labs, check PT/pTT, check c peptide, PT/OT, check orthostatics, review home meds and continue as appropriate, discharge planning, see admission orders. - am labs, replace lytes prn - PT/OT/CM/SW - delirium precautions: increase activity - DVT prophylaxis: SCDs and encourage ambulation Advance Directive: Prior Anticipated Discharge - Date - 10/11-10/12 - Location - Home - Pending the following - resolution of symptoms/hypoglycemia, completion of work up and when OK with consultants Total time spent (which include face to face and non face to face encounters) : 62 minutes. Toxic drug monitoring/narrow therapeutic index drug monitoring : # Drug name : # Route administered : # Method of monitoring : Extended Emergency Contact Information Primary Emergency Contact: Oliver Carey [address]: [address] [place] [address] of [place] [employer] Relation: Spouse [employer] Melanie Fergusonestuardo : 1965 Primary Care Physician: See Ricketts MD The patient and/or family/surrogate voluntarily agreed to participate in ACP services. Patient s cognitive capacity: good Code Status: [X_] [FULL CODE - Continue all advanced life support: CPR,intubation,invasive procedures] [_] [DNR-CCA - DO NOT do CPR, intubation] [_] [DNR-DIVISION CHAIR - Comfort care only] [_] DNR form [was/was not] signed Summary of discussion: The patient HCPOA is the following: none. The patient DPOA is the following: none. [Condition that instigated the ACP on this DOS, relevant PMH, functional status, goals of care, and whom this was discussed with including names and relationship to the patient, and any relevant advance care documentation discussion] I answered all the patient/family questions that I could within the range and scope of the current medical situation. We discussed the medical conditions, risks, benefits, outcomes, and goals of care at this time for the patient's medical issues at hand in the face of the patient's chronic issues and current presentation. Total time spent: 4 minutes were spent discussing the patient's resuscitation status, advance care planning, and end of life care, with patient and/or family/surrogate. JARVIS FLANNERY MD Division of Hospitalist Medicine [facility] [employer] Work Phone: 10-11-2023 History and physical note Images from the original note were not included. Attending History and Physical Admit Date: 10/11/2023 PCP: See Ricketts MD CHIEF COMPLAINT: altered mental status/hypoglycemia Reason for Admission: altered mental status/hypoglycemia History Obtained From: patient/chart HISTORY OF PRESENT ILLNESS: Melanie is a 58 y.o. female with past medical history below who presents with chief complaint listed above. She developed confusion/altered mental status earlier today. She was extremely weak and almost fell. She was found to be hypoglycemic. She is on insulin at home. She does not see an [employer]. She denies cp, sob, cough, n/v, f/c. She is much better currently after Dextrose Ivs. Will admit for further evaluation and management. Seen and examined in the ED. D/w pt and at bedside. Past Medical History: Past Medical History: Diagnosis Date Anxiety Arthritis Chest pain Depression Diabetic nephropathy (CMS/HCC) (HCC) Elevated transaminase level Fatigue GERD (gastroesophageal reflux disease) Headache(784.0) Hemorrhoids Hyperlipidemia Hypertension Low back pain Neuropathic pain Obesity DONNA (obstructive sleep apnea) Rectal bleed Right leg weakness Trochanteric bursitis of left hip Bilateral Type II or unspecified type diabetes mellitus without mention of complication, not stated as uncontrolled (HCC) Uncontrolled type 2 diabetes mellitus with complication 02/19/2015 Past Surgical History: Past Surgical History: Procedure Laterality Date CARDIAC CATHETERIZATION 06/03/2018 CARPAL TUNNEL RELEASE CHOLECYSTECTOMY COLONOSCOPY 2012 ENDOMETRIAL ABLATION HERNIA REPAIR TONSILLECTOMY AND ADENOIDECTOMY (HISTORICAL) Social History: Social History Socioeconomic History Marital status: Spouse name: Not on file Number of children: Not on file Years of education: Not on file Highest education level: Not on file Occupational History Not on file Tobacco Use Smoking status: Former Packs/day: 2 Types: Cigarettes Quit date: 09/01/2013 Years since quittin.1 Smokeless tobacco: Never Substance and Sexual Activity Alcohol use: Not Currently Alcohol/week: 0.0 standard drinks of alcohol Drug use: No Sexual activity: Not on file Other Topics Concern Not on file Social History Narrative Not on file Social Determinants of Health Financial Resource Strain: High Risk (12/30/2022) Overall Financial Resource Strain (CARDIA) Difficulty of Paying Living Expenses: Very hard Food Insecurity: No Food Insecurity (02/11/2023) Hunger Vital Sign Worried About Running Out of Food in the Last Year: Never true Ran Out of Food in the Last Year: Never true Transportation Needs: No Transportation Needs (12/30/2022) PRAPARE - Transportation Lack of Transportation (Medical): No Lack of Transportation (Non-Medical): No Physical Activity: Inactive (02/11/2023) Exercise Vital Sign Days of Exercise per Week: 0 days Minutes of Exercise per Session: 0 min Stress: Not on file Social Connections: Not on file Intimate Partner Violence: Not on file Housing Stability: Low Risk (02/11/2023) Housing Stability Vital Sign Unable to Pay for Housing in the Last Year: No Number of Places Lived in the Last Year: 2 Unstable Housing in the Last Year: No Family History: Family History Problem Relation Name Age of Onset Diabetes Mother Heart disease Father Cancer Father prostate High Blood Pressure Father Other ([id number]) Sister TBI Depression Mother Substance Abuse Brother Heart disease Mother Other ([id number]) Mother Depression Brother Medications Prior to Admission: No current facility-administered medications on file prior to encounter. Current Outpatient Medications on File Prior to Encounter Medication Sig Dispense Refill albuterol 108 (90 Base) MCG/ACT inhaler Inhale 1 puff every 6 hours as needed for wheezing or shortness of breath. 18 g 11 aspirin 81 MG EC tablet Take 81 mg by mouth daily. buPROPion XL (Wellbutrin XL) 300 MG 24 hr tablet Take 1 tablet (300 mg) by mouth daily. Do not crush, chew, or split. 90 tablet 1 busPIRone (Buspar) 10 MG tablet Take 1 tablet (10 mg) by mouth 2 times daily. 60 tablet 3 HumuLIN R U-500 KWIKPEN 500 UNIT/ML CONCENTRATED injection Inject 20 Units under the skin in the morning and 20 Units in the evening. Inject before meals. 160 units at breakfast, 30 units with lunch and 120 units with dinner. 2.4 mL 0 hydrOXYzine HCl (Atarax) 25 MG tablet Take 1 tablet (25 mg) by mouth every 8 hours as needed for anxiety. 90 tablet 3 labetalol (Normodyne) 100 MG tablet Take 1 tablet (100 mg) by mouth in the morning and 1 tablet (100 mg) in the evening. 60 tablet 3 metFORMIN (Glucophage) 1000 MG tablet Take 1 tablet (1,000 mg) by mouth in the morning and 1 tablet (1,000 mg) in the evening. Take with meals. 30 tablet 3 Unifine Pentips 31G X 8 MM misc Use as directed with insulin pen 100 each 1 Allergies: Allergies Allergen Reactions Cat Hair Extract Anaphylaxis and Swelling Lisinopril Angioedema Pollen Extract Unknown REVIEW OF SYSTEMS: As per HPI otherwise 10 system review is unremarkable. Vitals: BP (!) 165/69 Pulse 71 Temp 36 C (96.8 F) (Temporal) Resp 19 SpO2 93% BMI Classification: Overweight (BMI 25.0-29.9) Pulse Ox: SpO2 Av % Min: 93 % Max: 93 % Supplemental O2: PHYSICAL EXAM: Physical Exam Vitals and nursing note reviewed. Constitutional: General: She is not in acute distress. Appearance: She is obese. HENT: Head: Normocephalic and atraumatic. Mouth/Throat: Pharynx: Oropharynx is clear. Eyes: Extraocular Movements: Extraocular movements intact. Conjunctiva/sclera: Conjunctivae normal. Pupils: Pupils are equal, round, and reactive to light. Cardiovascular: Rate and Rhythm: Normal rate and regular rhythm. Pulses: Normal pulses. Heart sounds: Murmur heard. Pulmonary: Effort: Pulmonary effort is normal. Breath sounds: Normal breath sounds. Abdominal: General: Bowel sounds are normal. There is no distension. Palpations: Abdomen is soft. Tenderness: There is no abdominal tenderness. There is no rebound. Musculoskeletal: General: Normal range of motion. Cervical back: Neck supple. Right lower leg: No edema. Left lower leg: No edema. Skin: General: Skin is warm and dry. Capillary Refill: Capillary refill takes less than 2 seconds. Neurological: General: No focal deficit present. Mental Status: She is alert and oriented to person, place, and time. Mental status is at baseline. Psychiatric: Mood and Affect: Mood normal. DATA: CBC: Recent Labs 10/11/232025 WBC 6.1 RBC 4.98 HGB 13.1 HCT 41.4 MCV 83.1 RDW 15.5* PLT 74* BMP: Recent Labs 10/11/232025 NA 140 K 3.4* CL 104 CO2 26 BUN 19* CREATININE 0.87 GLUCOSE 27* CALCIUM 9.9 ANIONGAP 10 LIVER PROFILE: Recent Labs 10/11/232025 AST 31 ALT 30 BILITOT 1.3 ALKPHOS 111 PROT 8.7* PT/INR: No results for input(s): PROTIME, INR in the last 72 hours. CARDIAC ENZYMES: No results for input(s): TROPONINI in the last 72 hours. Procalcitonin: No results found for: PROCAL Urine Culture: Results for orders placed or performed in visit on 08/26/23 Urine culture (clean catch) Specimen: Urine, Clean Catch Result Value Ref Range Urine Culture SEE NOTE (A) COVID-19 PCR: No results for input(s): COVID19 in the last 72 hours. I reviewed: [x] laboratory results [x] radiographic results At the time of today's encounter. Pt was advised of the results. Assessment Altered mental status Near syncope Hypoglycemia Hypokalemia HTN DM2 with hypoglycemia Thrombocytopenia GERD Hyperlipidemia Neuropathy DONNA Depression/anxiety Obesity Plan I discussed management with the ED clinician and agree with the need for hospitalization, D5 IVF, hold all insulin, follow BG closely, Endocrinology evaluation, replace K, follow up labs, check PT/pTT, check c peptide, PT/OT, check orthostatics, review home meds and continue as appropriate, discharge planning, see admission orders. - am labs, replace lytes prn - PT/OT/CM/SW - delirium precautions: increase activity - DVT prophylaxis: SCDs and encourage ambulation Advance Directive: Prior Anticipated Discharge - Date - 10/11-10/12 - Location - Home - Pending the following - resolution of symptoms/hypoglycemia, completion of work up and when OK with consultants Total time spent (which include face to face and non face to face encounters) : 62 minutes. Toxic drug monitoring/narrow therapeutic index drug monitoring : # Drug name : # Route administered : # Method of monitoring : Extended Emergency Contact Information Primary Emergency Contact: Oliver Carey Address: [address] [place] [address] Mobile Relation: Spouse [employer] Melanie Restrepo Anita : 1965 Primary Care Physician: See Ricketts MD The patient and/or family/surrogate voluntarily agreed to participate in ACP services. Patient s cognitive capacity: good Code Status: [X_] [FULL CODE - Continue all advanced life support: CPR,intubation,invasive procedures] [_] [DNR-CCA - DO NOT do CPR, intubation] [_] [DNR-DIVISION CHAIR - Comfort care only] [_] DNR form [was/was not] signed Summary of discussion: The patient HCPOA is the following: none. The patient DPOA is the following: none. [Condition that instigated the ACP on this DOS, relevant PMH, functional status, goals of care, and whom this was discussed with including names and relationship to the patient, and any relevant advance care documentation discussion] I answered all the patient/family questions that I could within the range and scope of the current medical situation. We discussed the medical conditions, risks, benefits, outcomes, and goals of care at this time for the patient's medical issues at hand in the face of the patient's chronic issues and current presentation. Total time spent: 4 minutes were spent discussing the patient's resuscitation status, advance care planning, and end of life care, with patient and/or family/surrogate. JARVIS FLANNERY MD Division of Hospitalist Medicine [facility] documented in this encounter [facility] 10-11-2023 Emergency department Note BG 54. Dr Calero notified. Instructed to give D50 and increase D10 to 150ml/hr. Kati Godfrey RN 10/11/232117 [facility] 10-11-2023 Emergency department Note Pt states at breakfast she took Humulin R Kwikpen 180 units. Lunch she checked BG and it was in 200s so she took 60-80 units. States she did not eat after lunch and did not take any additional insulin Kati Godfrey RN 10/11/232024 [facility] 10-11-2023 Emergency department Note Pt much more responsive after D50. A&Ox4. Kati Godfrey RN 10/11/232021 [facility] 10-11-2023 Emergency department Triage note Pt arrives via [private vehicle for concern for hypoglycemia. states it was 38. BG upon arrival 79. Pt lethargic and responding to pain upon arrival. Not able to respond to questions. Dr Max bedside. Pt clammy and has redness to face upon arrival [facility] 10-11-2023 Physician Emergency department Note EMERGENCY DEPARTMENT ENCOUNTER Pt Name: Raiza Carey Birthdate 1965 Date of evaluation: 10/11/2023 ED Provider: Jeronimo Calero MD CHIEF COMPLAINT Chief Complaint Patient presents with Altered Mental Status HISTORY OF PRESENT ILLNESS (Location/Symptom, Timing/Onset, Context/Setting, Quality, Duration, Modifying Factors, Severity) Note limiting factors. I wore appropriate PPE for the entirety of this encounter. HPI Raiza Carey is a 58 y.o. with past medical history of insulin-dependent diabetes who presents to the emergency department hypoglycemic and altered. Per report from at bedside patient had taken insulin as per her usual after eating. Then became altered and they took her blood sugar at home and it was 30 called EMS. At bedside patient initially not giving any history. Encephalopathic. Glucose given and patient's GCS returned to 15. Patient states that she took 60 to 80 units of insulin after eating. Denies any chest pain shortness of breath dizziness lightheadedness vision changes back pain or any other symptoms at this time. Denies doing this to kill herself. Nursing Notes were reviewed. Limitations to history: Outside historians: REVIEW OF SYSTEMS Review of Systems All other systems reviewed and are negative. Pertinent positives and negatives as per HPI. PAST MEDICAL HISTORY Past Medical History: Diagnosis Date Anxiety Arthritis Chest pain Depression Diabetic nephropathy (CMS/HCC) (HCC) Elevated transaminase level Fatigue GERD (gastroesophageal reflux disease) Headache(784.0) Hemorrhoids Hyperlipidemia Hypertension Low back pain Neuropathic pain Obesity DONNA (obstructive sleep apnea) Rectal bleed Right leg weakness Trochanteric bursitis of left hip Bilateral Type II or unspecified type diabetes mellitus without mention of complication, not stated as uncontrolled (HCC) Uncontrolled type 2 diabetes mellitus with complication 02/19/2015 SURGICAL HISTORY Past Surgical History: Procedure Laterality Date CARDIAC CATHETERIZATION 06/03/2018 CARPAL TUNNEL RELEASE CHOLECYSTECTOMY COLONOSCOPY 2011 ENDOMETRIAL ABLATION HERNIA REPAIR TONSILLECTOMY AND ADENOIDECTOMY (HISTORICAL) CURRENT MEDICATIONS Previous Medications ALBUTEROL 108 (90 BASE) MCG/ACT INHALER Inhale 1 puff every 6 hours as needed for wheezing or shortness of breath. ASPIRIN 81 MG EC TABLET Take 81 mg by mouth daily. BUPROPION XL (WELLBUTRIN XL) 300 MG 24 HR TABLET Take 1 tablet (300 mg) by mouth daily. Do not crush, chew, or split. BUSPIRONE (BUSPAR) 10 MG TABLET Take 1 tablet (10 mg) by mouth 2 times daily. HUMULIN R U-500 KWIKPEN 500 UNIT/ML CONCENTRATED INJECTION Inject 20 Units under the skin in the morning and 20 Units in the evening. Inject before meals. 160 units at breakfast, 30 units with lunch and 120 units with dinner. HYDROXYZINE HCL (ATARAX) 25 MG TABLET Take 1 tablet (25 mg) by mouth every 8 hours as needed for anxiety. LABETALOL (NORMODYNE) 100 MG TABLET Take 1 tablet (100 mg) by mouth in the morning and 1 tablet (100 mg) in the evening. METFORMIN (GLUCOPHAGE) 1000 MG TABLET Take 1 tablet (1,000 mg) by mouth in the morning and 1 tablet (1,000 mg) in the evening. Take with meals. UNIFINE PENTIPS 31G X 8 MM MISC Use as directed with insulin pen ALLERGIES Cat hair extract, Lisinopril, and Pollen extract FAMILY HISTORY Family History Problem Relation Name Age of Onset Diabetes Mother Heart disease Father Cancer Father prostate High Blood Pressure Father Other ([id number]) Sister TBI Depression Mother Substance Abuse Brother Heart disease Mother Other ([id number]) Mother Depression Brother SOCIAL HISTORY Social History Socioeconomic History Marital status: Tobacco Use Smoking status: Former Packs/day: 2 Types: Cigarettes Quit date: 09/01/2013 Years since quittin.1 Smokeless tobacco: Never Substance and Sexual Activity Alcohol use: Not Currently Alcohol/week: 0.0 standard drinks of alcohol Drug use: No Social Determinants of Health Financial Resource Strain: High Risk (12/30/2022) Overall Financial Resource Strain (CARDIA) Difficulty of Paying Living Expenses: Very hard Food Insecurity: No Food Insecurity (02/11/2023) Hunger Vital Sign Worried About Running Out of Food in the Last Year: Never true Ran Out of Food in the Last Year: Never true Transportation Needs: No Transportation Needs (12/30/2022) PRAPARE - Transportation Lack of Transportation (Medical): No Lack of Transportation (Non-Medical): No Physical Activity: Inactive (02/11/2023) Exercise Vital Sign Days of Exercise per Week: 0 days Minutes of Exercise per Session: 0 min Housing Stability: Low Risk (02/11/2023) Housing Stability Vital Sign Unable to Pay for Housing in the Last Year: No Number of Places Lived in the Last Year: 2 Unstable Housing in the Last Year: No SCREENINGS Sundeep Coma Scale Best Eye Response: Spontaneous Best Verbal Response: Oriented Best Motor Response: Follows commands Widener Coma Scale Score: 15 NIH Stroke Scale 1A. Level of Consciousness: Alert, Keenly Responsive 1B. Ask Month and Age: Both Questions Right 1C. Blink Eyes & Squeeze Hands: Performs Both Tasks 2. Best Gaze: Normal 3. Visual: No Visual Loss 4. Facial Palsy: Normal Symmetrical Movements 5A. Motor - Left Arm: No Drift 5B. Motor - Right Arm: No Drift 6A. Motor - Left Leg: No Drift 6B. Motor - Right Leg: No Drift 7. Limb Ataxia: Absent 8. Sensory Loss: Normal 9. Best Language: No Aphasia 10. Dysarthria: [id number] Dysarthria 11. Extinction and Inattention: No Abnormality NIH Stroke Scale: 1 PHYSICAL EXAM ED Triage Vitals Temp Heart Rate Resp BP 10/11/23211810/11/23201010/11/23201510/11/232010 36 C (96.8 F) 71 19 (!) 223/96 SpO2 Temp Source Heart Rate Source Patient Position 10/11/23201110/11/232118 -- -- 93 % Temporal BP Location FiO2 (%) -- -- Physical Exam Vitals and nursing note reviewed. Constitutional: General: She is not in acute distress. Appearance: She is well-developed. She is obese. HENT: Head: Normocephalic and atraumatic. Nose: Nose normal. Mouth/Throat: Mouth: Mucous membranes are moist. Eyes: Extraocular Movements: Extraocular movements intact. Conjunctiva/sclera: Conjunctivae normal. Pupils: Pupils are equal, round, and reactive to light. Cardiovascular: Rate and Rhythm: Normal rate and regular rhythm. Pulses: Normal pulses. Heart sounds: Normal heart sounds. No murmur heard. Pulmonary: Effort: Pulmonary effort is normal. No respiratory distress. Breath sounds: Normal breath sounds. Abdominal: Palpations: Abdomen is soft. Tenderness: There is no abdominal tenderness. Musculoskeletal: General: No swelling or tenderness. Cervical back: Neck supple. Skin: General: Skin is warm and dry. Capillary Refill: Capillary refill takes less than 2 seconds. Coloration: Skin is not jaundiced. Neurological: General: No focal deficit present. Mental Status: She is alert and oriented to person, place, and time. Mental status is at baseline. Cranial Nerves: No cranial nerve deficit. Sensory: No sensory deficit. Psychiatric: Mood and Affect: Mood normal. DIAGNOSTIC RESULTS RADIOLOGY (Per Emergency Physician): Interpretation per the Radiologist below, if available at the time of this note: CT head wo IV contrast Final Result 1. No acute intracranial finding. Report Dictated on Electronically Signed By: Juan A Bo MD Electronically Signed Date/Time: 10/11/2023 9:02 PM EDT LABS: Labs Reviewed CBC WITH AUTO DIFFERENTIAL - Abnormal Result Value Auto WBC 6.1 RBC 4.98 Hemoglobin 13.1 Hematocrit 41.4 MCV 83.1 MCH 26.3 MCHC 31.6 RDW 15.5 (*) Platelets 74 (*) MPV 9.8 IPF 4 COMPREHENSIVE METABOLIC PANEL - Abnormal SODIUM 140 POTASSIUM 3.4 (*) CHLORIDE 104 CARBON DIOXIDE 26 ANION GAP 10 UREA NITROGEN 19 (*) CREATININE 0.87 GLUCOSE 27 (*) CALCIUM 9.9 AST (SGOT) 31 ALT 30 ALKALINE PHOSPHATASE 111 ALBUMIN 4.4 BILIRUBIN, TOTAL 1.3 TOTAL PROTEIN 8.7 (*) eGFR 78.3 MANUAL DIFFERENTIAL (CELLAVISION) - Abnormal RBC Morphology Normal Neutrophils % 80 Lymphocytes % 7 (*) Atypical Lymphocytes % 2 (*) Monocytes % 11 Absolute Neutrophil Count 4.9 Lymphocytes Absolute 0.4 (*) Atypical Lymphs Absolute 0.1 (*) Monocytes Absolute 0.7 Neutrophils Manual 81 Lymphocytes Manual 7 Monocytes Manual 11 Eosinophils Manual Basophils Manual Bands Manual Metamyelocytes Manual Myelocytes Manual Promyelocytes Manual Blasts Manual Atypical Lymphocytes Manual 2 Unclassified Cells, Manual POCT GLUCOSE METER UNSOLICITED RESULTS - Abnormal Glucose 54 (*) Narrative: Performed by: [facility], [address] [place] [id number] CLIA ID: [id number] POCT GLUCOSE METER UNSOLICITED RESULTS - Abnormal Glucose 129 (*) Narrative: Performed by: [facility], [address] [place] [address] CLIA ID: [id number] POCT GLUCOSE METER UNSOLICITED RESULTS - Normal Glucose 80 Narrative: Performed by: [facility], [address] [place] [address] CLIA ID: [id number] CORTISOL POCT GLUCOSE METER POCT GLUCOSE METER POCT GLUCOSE METER All other labs were within normal range or not returned as of this dictation. EMERGENCY DEPARTMENT COURSE and DIFFERENTIAL DIAGNOSIS/MDM: Vitals: Vitals: 04201510/11/23201610/11/23211810/11/232148 BP: (!) 165/69 135/88 Pulse: 64 Resp: 19 19 Temp: 36 C (96.8 F) TempSrc: Temporal SpO2: 100% The patient presented with a chief complaint of encephalopathy. The differential diagnosis associated with this patient's presentation includes hypoglycemia electrolyte abnormality head bleed. Our workup consisted of ordering/reviewing lab work and imaging. Patient initially hypoglycemic given multiple rounds of D50 placed on D10 drip along with steroids. Differential does include adrenal insufficiency secondary to withdrawal from recent steroids abruptly. Given methylprednisolone. Repeat sugars low given more D50 placed on the 10 drip up to 150 mL patient mid to medicine for further care as GCS improved 15. CT head negative for any acute finding other lab work negative. ED Course as of 10/11/232244Oct 11, 20232131 CT head wo IV contrast [RM] ED Course User Index [RM] Jeronimo Calero MD Diagnoses as of 10/11/232244 Hypoglycemia External records reviewed: Diagnostics interpreted by me: Discussions with other clinicians: Chronic conditions impacting care: Social determinants of health affecting care: ED Medications managed: Medications dextrose 50 % solution 50 mL (50 mL IntraVENous Given 10/11/232011) dextrose 10 % infusion (150 mL/hr IntraVENous Rate/Dose Change 10/11/232116) methylPREDNISolone sodium succinate (PF) (SOLU-Medrol) injection 125 mg (125 mg IntraVENous Given 10/11/232045) dextrose 50 % solution 50 mL (50 mL IntraVENous Given 10/11/232114) Prescription drugs considered: PROCEDURES: Unless otherwise noted below, none Procedures FINAL IMPRESSION 1. Hypoglycemia DISPOSITION Admit 10/11/2023 10:44:01 PM PATIENT REFERRED TO: No follow-up provider specified. DISCHARGE MEDICATIONS: New Prescriptions No medications on file (Comment: Please note this report has been produced using speech recognition software and may contain errors related to that system including errors in grammar, punctuation, and spelling, as well as words and phrases that may be inappropriate. If there are any questions or concerns please feel free to contact the dictating provider for clarification.) Jeronimo Calero MD (electronically signed) Emergency Medicine Provider Jeronimo Calero MD Resident 10/11/232255 [facility] 09-22-2023 History of Present illness Narrative [facility] [place] [address] [facility] [address] [place] [address] Dept: [phone] Dept Loc: [phone] Patient ID: Raiza Carey is a 58 y.o. female. Referring Physician: Dr. Ricketts Primary Care Provider: See Ricketts MD Referral Request: low plt . Also low WBC HPI: Melanie Carey is a 58 y.o. female with DM , anxiety , depression , sleep apnea was referred for lower than normal plt and WBC . She had covid x 3 and pneumonia in the past 3 years . Each illness took long to recover. Fatigue more than her baseline . Unintentional weight loss 25 lb in 6 months . Past Medical History: Diagnosis Date Anxiety Arthritis Chest pain Depression Diabetic nephropathy (CMS/HCC) (HCC) Elevated transaminase level Fatigue GERD (gastroesophageal reflux disease) Headache(784.0) Hemorrhoids Hyperlipidemia Hypertension Low back pain Neuropathic pain Obesity DONNA (obstructive sleep apnea) Rectal bleed Right leg weakness Trochanteric bursitis of left hip Bilateral Type II or unspecified type diabetes mellitus without mention of complication, not stated as uncontrolled (HCC) Uncontrolled type 2 diabetes mellitus with complication 02/19/2015 Family History Problem Relation Name Age of Onset Diabetes Mother Heart disease Father Cancer Father prostate High Blood Pressure Father Other ([id number]) Sister TBI Depression Mother Substance Abuse Brother Heart disease Mother Other ([id number]) Mother Depression Brother Social History Socioeconomic History Marital status: Spouse name: Not on file Number of children: Not on file Years of education: Not on file Highest education level: Not on file Occupational History Not on file Tobacco Use Smoking status: Former Packs/day: 2 Types: Cigarettes Quit date: 09/01/2013 Years since quittin.0 Smokeless tobacco: Never Substance and Sexual Activity Alcohol use: Not Currently Alcohol/week: 0.0 standard drinks of alcohol Drug use: No Sexual activity: Not on file Other Topics Concern Not on file Social History Narrative Not on file Social Determinants of Health Financial Resource Strain: High Risk (12/30/2022) Overall Financial Resource Strain (CARDIA) Difficulty of Paying Living Expenses: Very hard Food Insecurity: No Food Insecurity (02/11/2023) Hunger Vital Sign Worried About Running Out of Food in the Last Year: Never true Ran Out of Food in the Last Year: Never true Transportation Needs: No Transportation Needs (12/30/2022) PRAPARE - Transportation Lack of Transportation (Medical): No Lack of Transportation (Non-Medical): No Physical Activity: Inactive (02/11/2023) Exercise Vital Sign Days of Exercise per Week: 0 days Minutes of Exercise per Session: 0 min Stress: Not on file Social Connections: Not on file Intimate Partner Violence: Not on file Housing Stability: Low Risk (02/11/2023) Housing Stability Vital Sign Unable to Pay for Housing in the Last Year: No Number of Places Lived in the Last Year: 2 Unstable Housing in the Last Year: No Allergies Allergen Reactions Cat Hair Extract Anaphylaxis and Swelling Lisinopril Angioedema Pollen Extract Unknown Review of Systems Constitutional: Positive for fatigue and unexpected weight change. HENT: Negative. Eyes: Negative. Respiratory: Negative. Cardiovascular: Negative. Gastrointestinal: Negative. Endocrine: Negative. Genitourinary: Negative. Musculoskeletal: Negative. Skin: Negative. Neurological: Negative. Hematological: Negative. Psychiatric/Behavioral: Negative. Objective BSA: 2.39 meters squared BP 137/84 (BP Location: Right arm, Patient Position: Sitting, BP Cuff Size: Adult long) Pulse 64 Temp 36.6 C (97.9 F) (Temporal) Ht 1.651 m (5' 5) Wt 125 kg (275 lb 12.8 oz) SpO2 96% BMI 45.90 kg/m Physical Exam Constitutional: Appearance: She is obese. HENT: Head: Normocephalic and atraumatic. Nose: Nose normal. Eyes: Extraocular Movements: Extraocular movements intact. Cardiovascular: Rate and Rhythm: Normal rate and regular rhythm. Heart sounds: Normal heart sounds. Pulmonary: Breath sounds: Normal breath sounds. Abdominal: Palpations: Abdomen is soft. Musculoskeletal: General: Normal range of motion. Cervical back: Normal range of motion. Skin: General: Skin is warm. Neurological: General: No focal deficit present. Mental Status: She is alert and oriented to person, place, and time. Psychiatric: Mood and Affect: Mood normal. Behavior: Behavior normal. ECOG Performance Status: Symptomatic; fully ambulatory Pertinent Ancillary Test Results: Lab Results Component Value Date WBC 3.1 (L) 08/26/2023 ADJUSTEDWBC 2.9 (L) 05/16/2023 HGB 11.9 08/26/2023 HCT 36.1 08/26/2023 PLT 58 (L) 08/26/2023 CREATININE 0.90 08/26/2023 AST 26 08/26/2023 Assessment/Plan: Raiza was seen today for new patient. Diagnoses and all orders for this visit: Pancytopenia (HCC) (Primary) - CBC auto differential; Future - Comprehensive metabolic panel; Future - Reticulocytes; Future - Ferritin; Future - Iron and TIBC; Future - Vitamin B12; Future - Folate; Future - Immunofixation Electrophoresis; Future - Protein, Total and Protein Electrophoresis; Future - Lactate dehydrogenase; Future - Copper, serum; Future - Methylmalonic acid, serum; Future - Homocysteine, serum; Future - CBC auto differential - Comprehensive metabolic panel - Reticulocytes - Ferritin - Iron and TIBC - Vitamin B12 - Folate - Immunofixation Electrophoresis - Protein, Total and Protein Electrophoresis - Lactate dehydrogenase - Copper, serum - Methylmalonic acid, serum - Homocysteine, serum - US abdomen complete; Future I have reviewed pertinent ancillary laboratory results with the patient and family member today. Discussed about differential diagnosis : 1 ) benign and malignant process that coursed low production such as B12 folic acid deficiency , MDS , plasma cell dyscrasia or lymphoproliferative disease . 2) Etiologies that made plt consumption faster, these included chronic liver disease , ITP or clots . I initiated the diagnostic process . I told her that diagnosis was a process of ruling out. Additional tests might be needed . Bone marrow biopsy would also be considered if tests results unrevealing for etiology . All questions were answered to the patient's satisfaction. Patient to call with any questions or problems. Patient verbalized understanding and agreed with the treatment plan outlined above. Angel Rodas M.D. - On this date, 09/22/23 , I have spent 60 minutes preparing to see the patient by reviewing previous notes/ancillary test results as well as with [id number] patient care, performing a medically appropriate examination, counseling & educating the patient/family/caregiver, ordering applicable medications/tests/procedures and completing required clinical documentation on the day of encounter. documented in this encounter [facility] 09-22-2023 History of Present illness Narrative [facility] [place] [address] [facility] [address] [place] [address] Dept: [phone] Dept Loc: [phone] Patient ID: Raiza Carey is a 58 y.o. female. Referring Physician: Dr. Ricketts Primary Care Provider: See Ricketts MD Referral Request: low plt . Also low WBC HPI: Melanie Carey is a 58 y.o. female with DM , anxiety , depression , sleep apnea was referred for lower than normal plt and WBC . She had covid x 3 and pneumonia in the past 3 years . Each illness took long to recover. Fatigue more than her baseline . Unintentional weight loss 25 lb in 6 months . Past Medical History: Diagnosis Date Anxiety Arthritis Chest pain Depression Diabetic nephropathy (CMS/HCC) (HCC) Elevated transaminase level Fatigue GERD (gastroesophageal reflux disease) Headache(784.0) Hemorrhoids Hyperlipidemia Hypertension Low back pain Neuropathic pain Obesity DONNA (obstructive sleep apnea) Rectal bleed Right leg weakness Trochanteric bursitis of left hip Bilateral Type II or unspecified type diabetes mellitus without mention of complication, not stated as uncontrolled (HCC) Uncontrolled type 2 diabetes mellitus with complication 02/19/2015 Family History Problem Relation Name Age of Onset Diabetes Mother Heart disease Father Cancer Father prostate High Blood Pressure Father Other (47652) Sister TBI Depression Mother Substance Abuse Brother Heart disease Mother Other ([id number]) Mother Depression Brother Social History Socioeconomic History Marital status: Spouse name: Not on file Number of children: Not on file Years of education: Not on file Highest education level: Not on file Occupational History Not on file Tobacco Use Smoking status: Former Packs/day: 2 Types: Cigarettes Quit date: 09/01/2013 Years since quittin.0 Smokeless tobacco: Never Substance and Sexual Activity Alcohol use: Not Currently Alcohol/week: 0.0 standard drinks of alcohol Drug use: No Sexual activity: Not on file Other Topics Concern Not on file Social History Narrative Not on file Social Determinants of Health Financial Resource Strain: High Risk (12/30/2022) Overall Financial Resource Strain (CARDIA) Difficulty of Paying Living Expenses: Very hard Food Insecurity: No Food Insecurity (02/11/2023) Hunger Vital Sign Worried About Running Out of Food in the Last Year: Never true Ran Out of Food in the Last Year: Never true Transportation Needs: No Transportation Needs (12/30/2022) PRAPARE - Transportation Lack of Transportation (Medical): No Lack of Transportation (Non-Medical): No Physical Activity: Inactive (02/11/2023) Exercise Vital Sign Days of Exercise per Week: 0 days Minutes of Exercise per Session: 0 min Stress: Not on file Social Connections: Not on file Intimate Partner Violence: Not on file Housing Stability: Low Risk (02/11/2023) Housing Stability Vital Sign Unable to Pay for Housing in the Last Year: No Number of Places Lived in the Last Year: 2 Unstable Housing in the Last Year: No Allergies Allergen Reactions Cat Hair Extract Anaphylaxis and Swelling Lisinopril Angioedema Pollen Extract Unknown Review of Systems Constitutional: Positive for fatigue and unexpected weight change. HENT: Negative. Eyes: Negative. Respiratory: Negative. Cardiovascular: Negative. Gastrointestinal: Negative. Endocrine: Negative. Genitourinary: Negative. Musculoskeletal: Negative. Skin: Negative. Neurological: Negative. Hematological: Negative. Psychiatric/Behavioral: Negative. Objective BSA: 2.39 meters squared BP 137/84 (BP Location: Right arm, Patient Position: Sitting, BP Cuff Size: Adult long) Pulse 64 Temp 36.6 C (97.9 F) (Temporal) Ht 1.651 m (5' 5) Wt 125 kg (275 lb 12.8 oz) SpO2 96% BMI 45.90 kg/m Physical Exam Constitutional: Appearance: She is obese. HENT: Head: Normocephalic and atraumatic. Nose: Nose normal. Eyes: Extraocular Movements: Extraocular movements intact. Cardiovascular: Rate and Rhythm: Normal rate and regular rhythm. Heart sounds: Normal heart sounds. Pulmonary: Breath sounds: Normal breath sounds. Abdominal: Palpations: Abdomen is soft. Musculoskeletal: General: Normal range of motion. Cervical back: Normal range of motion. Skin: General: Skin is warm. Neurological: General: No focal deficit present. Mental Status: She is alert and oriented to person, place, and time. Psychiatric: Mood and Affect: Mood normal. Behavior: Behavior normal. ECOG Performance Status: Symptomatic; fully ambulatory Pertinent Ancillary Test Results: Lab Results Component Value Date WBC 3.1 (L) 08/26/2023 ADJUSTEDWBC 2.9 (L) 05/16/2023 HGB 11.9 08/26/2023 HCT 36.1 08/26/2023 PLT 58 (L) 08/26/2023 CREATININE 0.90 08/26/2023 AST 26 08/26/2023 Assessment/Plan: Raiza was seen today for new patient. Diagnoses and all orders for this visit: Pancytopenia (HCC) (Primary) - CBC auto differential; Future - Comprehensive metabolic panel; Future - Reticulocytes; Future - Ferritin; Future - Iron and TIBC; Future - Vitamin B12; Future - Folate; Future - Immunofixation Electrophoresis; Future - Protein, Total and Protein Electrophoresis; Future - Lactate dehydrogenase; Future - Copper, serum; Future - Methylmalonic acid, serum; Future - Homocysteine, serum; Future - CBC auto differential - Comprehensive metabolic panel - Reticulocytes - Ferritin - Iron and TIBC - Vitamin B12 - Folate - Immunofixation Electrophoresis - Protein, Total and Protein Electrophoresis - Lactate dehydrogenase - Copper, serum - Methylmalonic acid, serum - Homocysteine, serum - US abdomen complete; Future I have reviewed pertinent ancillary laboratory results with the patient and family member today. Discussed about differential diagnosis : 1 ) benign and malignant process that coursed low production such as B12 folic acid deficiency , MDS , plasma cell dyscrasia or lymphoproliferative disease . 2) Etiologies that made plt consumption faster, these included chronic liver disease , ITP or clots . I initiated the diagnostic process . I told her that diagnosis was a process of ruling out. Additional tests might be needed . Bone marrow biopsy would also be considered if tests results unrevealing for etiology . All questions were answered to the patient's satisfaction. Patient to call with any questions or problems. Patient verbalized understanding and agreed with the treatment plan outlined above. Angel Rodas M.D. - On this date, 09/22/23 , I have spent 60 minutes preparing to see the patient by reviewing previous notes/ancillary test results as well as with [id number] patient care, performing a medically appropriate examination, counseling & educating the patient/family/caregiver, ordering applicable medications/tests/procedures and completing required clinical documentation on the day of encounter. documented in this encounter [facility] 09-22-2023 Miscellaneous Notes Addended by: AVA NUNEZ on: 09/30/2023 08:08 AM Modules accepted: Orders documented in this encounter [facility] 09-22-2023 Note Addended by: AVA NUNEZ on: 09/30/2023 08:08 AM Modules accepted: Orders [facility] 08-26-2023 Evaluation + Plan note Associated Problem(s): Lip lesion Recommend referral to dermatology for further evaluation. [facility] 08-26-2023 Miscellaneous Notes Associated Problem(s): Lip lesion Recommend referral to dermatology for further evaluation. Associated Problem(s): Urinary tract infection symptoms UA few leuks, blood. Send for culture. No antibiotic therapy indicated at this time. Associated Problem(s): Back strain Consistent with lumbar strain. No red flags. Associated Problem(s): Depression Stable. Previously seeing psychiatry in [place]. Continue Wellbutrin 300 mg daily, BuSpar 10 mg twice daily, hydroxyzine 25 mg every 8 hours. Associated Problem(s): Obstructive sleep apnea syndrome Continue CPAP Associated Problem(s): Chronic obstructive pulmonary disease (HCC) Symptoms controlled Associated Problem(s): Migraine without aura and without status migrainosus, not intractable Controlled. Associated Problem(s): Hyperlipidemia LDL goal <70 Check lipids today, currently not on meds, consider starting statin Associated Problem(s): Essential hypertension Controlled. Continue labetolol 100 mg twice daily, consider starting ARB, does not tolerate CLAUDY inhibitors Associated Problem(s): Gastroesophageal reflux disease without esophagitis Controlled. Takes prilosec OTC. Associated Problem(s): Lymphopenia Repeat CBC, needs to follow up with hematology Associated Problem(s): Other cirrhosis of liver (HCC) Follow up with gastroenterology. Check cmp today Associated Problem(s): Anxiety Controlled. Doing well on current medication and we will take over manage at this time. Previously seeing Dr Overton in [place]. Continue current medications. documented in this encounter [facility] 08-26-2023 Evaluation + Plan note Associated Problem(s): Urinary tract infection symptoms UA few leuks, blood. Send for culture. No antibiotic therapy indicated at this time. [facility] 08-26-2023 Evaluation + Plan note Associated Problem(s): Back strain Consistent with lumbar strain. No red flags. [facility] 08-26-2023 Evaluation + Plan note Associated Problem(s): Depression Stable. Previously seeing psychiatry in [place]. Continue Wellbutrin 300 mg daily, BuSpar 10 mg twice daily, hydroxyzine 25 mg every 8 hours. [facility] 08-26-2023 Evaluation + Plan note Associated Problem(s): Obstructive sleep apnea syndrome Continue CPAP [facility] 08-26-2023 Evaluation + Plan note Associated Problem(s): Chronic obstructive pulmonary disease (HCC) Symptoms controlled [facility] 08-26-2023 Evaluation + Plan note Associated Problem(s): Migraine without aura and without status migrainosus, not intractable Controlled. [facility] 08-26-2023 Evaluation + Plan note Associated Problem(s): Hyperlipidemia LDL goal <70 Check lipids today, currently not on meds, consider starting statin [facility] 08-26-2023 Evaluation + Plan note Associated Problem(s): Essential hypertension Controlled. Continue labetolol 100 mg twice daily, consider starting ARB, does not tolerate CLAUDY inhibitors [facility] 08-26-2023 Evaluation + Plan note Associated Problem(s): Gastroesophageal reflux disease without esophagitis Controlled. Takes prilosec OTC. [facility] 08-26-2023 Evaluation + Plan note Associated Problem(s): Lymphopenia Repeat CBC, needs to follow up with hematology [facility] 08-26-2023 Evaluation + Plan note Associated Problem(s): Other cirrhosis of liver (HCC) Follow up with gastroenterology. Check cmp today [facility] 08-26-2023 Evaluation + Plan note Associated Problem(s): Anxiety Controlled. Doing well on current medication and we will take over manage at this time. Previously seeing Dr Overton in [place]. Continue current medications. [facility] 08-26-2023 History of Present illness Narrative Patient was identified by name and Date of . HM: Hep A/B-discuss HIV/Hep C-declined MMR-declined Pneumo-declined DM eye-needs to be scheduled DM Dental-dentures PHQ-completed Pap smear-needs scheduled Zoster-declined Colon-pended Lipid-pended Flu-declined Covid-declined Mammo-pended Patient identified by name and date of . Urine specimen cup labeled with patient name and date of . Urine cup and wipe given to patient. Clean catch urine collected from patient. POCT Urine ordered and signed by provider. POCT urine results entered and were sent to provider. Urine culture was ordered and signed by provider. Urine culture was obtained and specimen tube was labeled with patients name and date of , requisition was printed off, verified patient information, then given to [facility] lab. Images from the original note were not included. 08/26/2023 Melanie Carey (: 1965) is a 58 y.o. female , Established patient, here for evaluation of the following chief complaint(s): Annual Exam, Health Maintenance (Hep A/B-discuss/HIV/Hep C-declined/MMR-declined/Pneumo-dec lined/DM eye-needs to be scheduled/DM Dental-dentures/PHQ-completed/Pap smear-needs scheduled/Zoster-declined/Colon-pe nded/Lipid-pended/Flu-declined/Cov id-declined/Mammo-pended/), Hypertension (/), Diabetes, Depression (/), and Anxiety ASSESSMENT/PLAN: 1. Annual physical exam 2. Type 2 diabetes mellitus with polyneuropathy (HCC) - Comprehensive metabolic panel - Hemoglobin A1c - Microalbumin / creatinine, urine ratio - metFORMIN (Glucophage) 1000 MG tablet; Take 1 tablet (1,000 mg) by mouth in the morning and 1 tablet (1,000 mg) in the evening. Take with meals., Starting [facility] 08/26/2023, Normal - Unifine Pentips 31G X 8 MM misc; Use as directed with insulin pen, Normal 3. Back strain, initial encounter Assessment & Plan: Consistent with lumbar strain. No red flags. 4. Essential hypertension Assessment & Plan: Controlled. Continue labetolol 100 mg twice daily, consider starting ARB, does not tolerate CLAUDY inhibitors Orders: - Comprehensive metabolic panel - labetalol (Normodyne) 100 MG tablet; Take 1 tablet (100 mg) by mouth in the morning and 1 tablet (100 mg) in the evening., Starting [facility] 08/26/2023, Normal 5. Recurrent major depressive disorder, in partial remission (HCC) Assessment & Plan: Stable. Previously seeing psychiatry in [place]. Continue Wellbutrin 300 mg daily, BuSpar 10 mg twice daily, hydroxyzine 25 mg every 8 hours. 6. Anxiety Assessment & Plan: Controlled. Doing well on current medication and we will take over manage at this time. Previously seeing Dr Overton in [place]. Continue current medications. Orders: - buPROPion XL (Wellbutrin XL) 300 MG 24 hr tablet; Take 1 tablet (300 mg) by mouth daily. Do not crush, chew, or split., Starting [facility] 08/26/2023, Normal - busPIRone (Buspar) 10 MG tablet; Take 1 tablet (10 mg) by mouth 2 times daily., Starting [facility] 08/26/2023, Normal - hydrOXYzine HCl (Atarax) 25 MG tablet; Take 1 tablet (25 mg) by mouth every 8 hours as needed for anxiety., Starting [facility] 08/26/2023, Normal 7. Lymphopenia Assessment & Plan: Repeat CBC, needs to follow up with hematology Orders: - CBC 8. Hyperlipidemia LDL goal <70 Assessment & Plan: Check lipids today, currently not on meds, consider starting statin Orders: - Lipid panel 9. Encounter for screening mammogram for malignant neoplasm of breast - Bilateral screening mammogram with tomosynthesis 10. Colon cancer screening - [facility] 11. Urinary tract infection symptoms Assessment & Plan: UA few leuks, blood. Send for culture. No antibiotic therapy indicated at this time. Orders: - POCT urinalysis dipstick manually resulted - Urine culture (clean catch) 12. Other cirrhosis of liver (HCC) Assessment & Plan: Follow up with gastroenterology. Check cmp today Orders: - [facility] G[facility] 13. Thrombocytopenia (HCC) 14. Chronic bronchitis, unspecified chronic bronchitis type (HCC) Assessment & Plan: Symptoms controlled 15. Gastroesophageal reflux disease without esophagitis Assessment & Plan: Controlled. Takes prilosec OTC. 16. Migraine without aura and without status migrainosus, not intractable Assessment & Plan: Controlled. 17. Obstructive sleep apnea syndrome Assessment & Plan: Continue CPAP Follow up for 3 month low. SUBJECTIVE/OBJECTIVE: HPI - Melanie Carey (: 1965) is a 58 y.o. female , Established patient, here for the evaluation of the following chief complaint(s): Annual Exam, Health Maintenance (Hep A/B-discuss/HIV/Hep C-declined/MMR-declined/Pneumo-dec lined/DM eye-needs to be scheduled/DM Dental-dentures/PHQ-completed/Pap smear-needs scheduled/Zoster-declined/Colon-pe nded/Lipid-pended/Flu-declined/Cov id-declined/Mammo-pended/), Hypertension (/), Diabetes, Depression (/), and Anxiety Presents today with significant other. HTN- labetalol 100 mg twice daily. DM- reports doing pretty well with her diabetes. Checks glucose 2-3 times daily. Fasting 120-130 and then at night usually the same 120-130, did have some lower glucose readings, had hypoglycemic episode a couple weeks ago was 48, has not had any other hypoglycemic episodes. Insulin once daily usually only, humulin r- u500 20 units bid. Cirrhosis of the Liver- has not followed up with specialist-was referred last fall after hospitialization Thrombocytopenia,lymphopenia, neutropenia- previously referred to hem/onc- has not followed up with them. Migraines- reports no significant change- has 2-3 per month. Cholesterol- due for lipid check,not currently on a statin Back pain x 3 days aching and thinks she has a UTI. Denies dysuria, hematuria, may have slight increased frequency. Missed work yesterday d/t the pain. Took ibuprofen without much relief, heating pad helped some. Does not remember doing anything that would have strained her back. No change in bowel, no numbness, no tingling or weakness. Prior to Admission medications Medication Sig Start Date End Date Taking? Authorizing Provider albuterol 108 (90 Base) MCG/ACT inhaler Inhale 1 puff every 6 hours as needed for wheezing or shortness of breath. 02/20/23 Yes Nae Mobley NP aspirin 81 MG EC tablet Take 81 mg by mouth daily. Yes Historical Provider, buPROPion XL (Wellbutrin XL) 300 MG 24 hr tablet Take 300 mg by mouth daily. Do not crush, chew, or split. Yes Historical Provider, busPIRone (Buspar) 10 MG tablet Take 10 mg by mouth 2 times daily. Yes Historical Provider, HumuLIN R U-500 KWIKPEN 500 UNIT/ML CONCENTRATED injection Inject 20 Units under the skin in the morning and 20 Units in the evening. Inject before meals. 160 units at breakfast, 30 units with lunch and 120 units with dinner. 02/20/23 08/26/23 Yes Nae Mobley NP hydrOXYzine HCl (Atarax) 25 MG tablet Take 25 mg by mouth every 8 hours as needed. 09/07/22 Yes Historical Provider, labetalol (Normodyne) 100 MG tablet Take 100 mg by mouth in the morning and 100 mg in the evening. Yes Historical Provider, metFORMIN (Glucophage) 1000 MG tablet Take 1,000 mg by mouth in the morning and 1,000 mg in the evening. 11/03/22 Yes Historical Provider, Unifinej Pentips 31G X 8 MM misc 10/20/22 Yes Historical Provider, cyclobenzaprine (Flexeril) 10 MG tablet Take 1 tablet (10 mg) by mouth 2 times daily as needed for muscle spasms for up to 5 days. 03/15/23 03/20/23 Yogesh Dodson MD Review of Systems Constitutional: Positive for fatigue. Negative for activity change, chills and fever. HENT: Negative. Respiratory: Positive for shortness of breath (occasional). Negative for cough and chest tightness. Cardiovascular: Negative for chest pain, palpitations and leg swelling. Gastrointestinal: Positive for abdominal pain (occasional over the past couple months, asymptomatic now, lower crampy) and nausea (occasional). Negative for blood in stool, constipation, diarrhea and vomiting. Genitourinary: Positive for flank pain and frequency. Negative for difficulty urinating, dysuria, hematuria, pelvic pain and vaginal bleeding. Musculoskeletal: Positive for back pain. Neurological: Positive for dizziness (occasional), light-headedness and headaches (migraines. no change in frequency or severity (2-3 per month)). Psychiatric/Behavioral: Positive for sleep disturbance. Negative for behavioral problems, decreased concentration, self-injury and suicidal ideas. The patient is nervous/anxious (manageable). The patient is not hyperactive. Vitals: 08/26/23 0825 08/26/23 0925 BP: (!) 150/83 136/77 Pulse: 102 89 Resp: 24 Temp: 37.3 C (99.1 F) TempSrc: Infrared SpO2: 97% Weight: 275 lb 9.6 oz (125 kg) Height: 5' 5 (1.651 m) Physical Exam Constitutional: General: She is not in acute distress. Appearance: Normal appearance. She is obese. She is not ill-appearing. HENT: Head: Normocephalic and atraumatic. Right Ear: Tympanic membrane normal. Left Ear: Tympanic membrane normal. Nose: Nose normal. Mouth/Throat: Mouth: Mucous membranes are moist. Pharynx: Oropharynx is clear. Uvula midline. Eyes: Conjunctiva/sclera: Conjunctivae normal. Cardiovascular: Rate and Rhythm: Normal rate and regular rhythm. Pulses: Normal pulses. Heart sounds: Normal heart sounds. Pulmonary: Effort: Pulmonary effort is normal. Breath sounds: Normal breath sounds. Abdominal: General: Bowel sounds are normal. Palpations: Abdomen is soft. Tenderness: There is no abdominal tenderness. Comments: obese Musculoskeletal: Cervical back: Normal range of motion and neck supple. Back: Right lower leg: No edema. Left lower leg: No edema. Lymphadenopathy: Cervical: No cervical adenopathy. Skin: General: Skin is warm and dry. Neurological: Mental Status: She is alert and oriented to person, place, and time. Psychiatric: Mood and Affect: Mood normal. Behavior: Behavior normal. Thought Content: Thought content normal. Judgment: Judgment normal. An electronic signature was used to authenticate this note. NICOLE Easley CNP 08/26/2023 4:14 PM documented in this encounter [facility] 05-16-2023 Emergency department Note EMERGENCY DEPARTMENT ENCOUNTER Pt Name: Melanie Carey Birthdate 1965 Date of evaluation: 05/16/2023 ED Provider: Mariana Snow MD CHIEF COMPLAINT Chief Complaint Patient presents with Dizziness Started 1 hour ago. Feels like the room is spinning and is worse when standing or changing positions. Had sinus congestion about a week ago states feels like my ears are clogged but they aren't. Chest Pain Describes as chest pressure also started about 1 hour ago. No known heart disease. Comes and goes, does not radiate. Also having SOB more with exertion but hx of COPD. HISTORY OF PRESENT ILLNESS (Location/Symptom, Timing/Onset, Context/Setting, Quality, Duration, Modifying Factors, Severity) Note limiting factors. HPI Melanie Carey is a 57 y.o. female who presents to the emergency department for dizziness and chest pain. Patient states that she was at [employer] this morning and been doing fine and then about an hour prior to arrival she started to feel hot and felt like the room was spinning. She states that she had an episode where she had some pressure-like sensation in her chest. She started to feel nauseous but no episode of emesis. No shortness of breath. She states that the dizziness seem to be worse when she was moving around. States that she been feeling fine otherwise this morning. She does note that she did not have anything to eat or drink yet today. she states that most of her symptoms have resolved other than a slight headache. Nursing Notes were reviewed. REVIEW OF SYSTEMS Review of Systems Pertinent positives and negatives per HPI PAST MEDICAL HISTORY Past Medical History: Diagnosis Date Anxiety Arthritis Chest pain Depression Diabetic nephropathy (CMS/HCC) (HCC) Elevated transaminase level Fatigue GERD (gastroesophageal reflux disease) Headache(784.0) Hemorrhoids Hyperlipidemia Hypertension Low back pain Neuropathic pain Obesity DONNA (obstructive sleep apnea) Rectal bleed Right leg weakness Trochanteric bursitis of left hip Bilateral Type II or unspecified type diabetes mellitus without mention of complication, not stated as uncontrolled (HCC) Uncontrolled type 2 diabetes mellitus with complication 02/19/2015 SURGICAL HISTORY Past Surgical History: Procedure Laterality Date CARDIAC CATHETERIZATION 06/03/2018 CARPAL TUNNEL RELEASE CHOLECYSTECTOMY COLONOSCOPY 2011 ENDOMETRIAL ABLATION HERNIA REPAIR TONSILLECTOMY AND ADENOIDECTOMY (HISTORICAL) CURRENT MEDICATIONS Previous Medications ALBUTEROL 108 (90 BASE) MCG/ACT INHALER Inhale 1 puff every 6 hours as needed for wheezing or shortness of breath. ASPIRIN 81 MG EC TABLET Take 81 mg by mouth daily. BUPROPION XL (WELLBUTRIN XL) 300 MG 24 HR TABLET Take 300 mg by mouth daily. Do not crush, chew, or split. BUSPIRONE (BUSPAR) 10 MG TABLET Take 10 mg by mouth 2 times daily. CYCLOBENZAPRINE (FLEXERIL) 10 MG TABLET Take 1 tablet (10 mg) by mouth 2 times daily as needed for muscle spasms for up to 5 days. HUMULIN R U-500 KWIKPEN 500 UNIT/ML CONCENTRATED INJECTION Inject 20 Units under the skin in the morning and 20 Units in the evening. Inject before meals. 160 units at breakfast, 30 units with lunch and 120 units with dinner. HYDROXYZINE HCL (ATARAX) 25 MG TABLET Take 25 mg by mouth every 8 hours as needed. LABETALOL (NORMODYNE) 100 MG TABLET Take 100 mg by mouth in the morning and 100 mg in the evening. METFORMIN (GLUCOPHAGE) 1000 MG TABLET Take 1,000 mg by mouth in the morning and 1,000 mg in the evening. UNIFINE PENTIPS 31G X 8 MM MISC ALLERGIES Cat hair extract, Lisinopril, and Pollen extract FAMILY HISTORY Family History Problem Relation Name Age of Onset Diabetes Mother Heart disease Father Cancer Father prostate High Blood Pressure Father Other ([id number]) Sister TBI Depression Mother Substance Abuse Brother Heart disease Mother Other ([id number]) Mother Depression Brother SOCIAL HISTORY Social History Socioeconomic History Marital status: Tobacco Use Smoking status: Former Packs/day: 2 Types: Cigarettes Quit date: 09/01/2013 Years since quittin.7 Smokeless tobacco: Never Substance and Sexual Activity Alcohol use: Not Currently Alcohol/week: 0.0 standard drinks of alcohol Drug use: No Social Determinants of Health Financial Resource Strain: High Risk (12/30/2022) Overall Financial Resource Strain (CARDIA) Difficulty of Paying Living Expenses: Very hard Food Insecurity: No Food Insecurity (02/11/2023) Hunger Vital Sign Worried About Running Out of Food in the Last Year: Never true Ran Out of Food in the Last Year: Never true Transportation Needs: No Transportation Needs (12/30/2022) PRAPARE - Transportation Lack of Transportation (Medical): No Lack of Transportation (Non-Medical): No Physical Activity: Inactive (02/11/2023) Exercise Vital Sign Days of Exercise per Week: 0 days Minutes of Exercise per Session: 0 min Housing Stability: Low Risk (02/11/2023) Housing Stability Vital Sign Unable to Pay for Housing in the Last Year: No Number of Places Lived in the Last Year: 2 Unstable Housing in the Last Year: No SCREENINGS PHYSICAL EXAM ED Triage Vitals [05/16/23 1233] Temp Heart Rate Resp BP 36.4 C (97.6 F) 70 20 (!) 168/91 SpO2 Temp Source Heart Rate Source Patient Position 97 % Temporal Monitor -- BP Location FiO2 (%) -- -- Physical Exam Well-appearing female in no acute distress. Vital signs reviewed and unremarkable. Head is normocephalic and atraumatic. Horizontal nystagmus noted with right gaze deviation. Normal test of skew and normal head impulse test. Lungs clear to auscultation bilaterally. No increased work of breathing. Abdomen is soft and nontender. Moves all extremities equally. No focal neurologic deficits. NIH of 0. DIAGNOSTIC RESULTS RADIOLOGY (Per Emergency Physician): Interpretation per the Radiologist below, if available at the time of this note: XR chest 1 view Final Result No acute cardiopulmonary disease. Report Dictated on Electronically Signed By: Fadi Sumner MD Electronically Signed Date/Time: 05/16/2023 1:16 PM EST LABS: Labs Reviewed BASIC METABOLIC PANEL - Abnormal Result Value SODIUM 138 POTASSIUM 4.2 CHLORIDE 105 CARBON DIOXIDE 27 UREA NITROGEN 16 CREATININE 0.91 GLUCOSE 170 (*) CALCIUM 9.4 ANION GAP 6 eGFR 74.7 CBC WITH AUTO DIFFERENTIAL - Abnormal Auto WBC 2.9 (*) RBC 4.51 Hemoglobin 12.3 Hematocrit 38.1 MCV 84.4 MCH 27.3 MCHC 32.3 RDW 16.5 (*) Platelets 69 (*) MPV 8.4 MAGNESIUM - Abnormal MAGNESIUM 1.5 (*) HEPATIC FUNCTION PANEL - Abnormal BILIRUBIN, TOTAL 1.1 BILIRUBIN, DIRECT 0.0 ALKALINE PHOSPHATASE 150 (*) AST (SGOT) 35 ALT 29 ALBUMIN 4.0 TOTAL PROTEIN 8.3 (*) TROPONIN, WITH SERIAL REFLEX MANUAL DIFFERENTIAL All other labs were within normal range or not returned as of this dictation. EKG: EKG at 1241 interpreted by me: Sinus rhythm with a rate of 67. Left axis deviation. Left anterior fascicular block. No ST segment elevations or depressions. EMERGENCY DEPARTMENT COURSE and DIFFERENTIAL DIAGNOSIS/MDM: Vitals: Vitals: 05/16/23 1233 05/16/23 1237 BP: (!) 168/91 Pulse: 70 Resp: 20 Temp: 36.4 C (97.6 F) TempSrc: Temporal SpO2: 97% Weight: 127 kg (281 lb) Height: 1.651 m (5' 5) Medications sodium chloride 0.9 % bolus 1,000 mL (1,000 mL IntraVENous New Bag 05/16/23 1300) magnesium oxide (Mag-Ox) tablet 400 mg (has no administration in time range) meclizine (Antivert) tablet 25 mg (25 mg Oral Given 05/16/23 1259) aspirin chewable tablet 324 mg (324 mg Oral Given 05/16/23 1259) Medical Decision Making Amount and/or Complexity of Data Reviewed Labs: ordered. Radiology: ordered. ECG/medicine tests: ordered. Risk OTC drugs. 57-year-old female present emergency department today for an episode of headache, dizziness and some chest pressure. Abnormal sounds like a presyncopal event while she was sitting at [employer] when she got really hot. Her symptoms have mostly resolved other than a mild headache at this time. She did not have a syncopal event. Her chest pain is since resolved. Her EKG is nonischemic. She does have some beating nystagmus on horizontal gaze deviation which is consistent with peripheral vertigo. I did give her fluids and meclizine as well as loaded her with aspirin. I will get a cardiac work-up here in the emergency department just to ensure that this is not a cardiac event. As long as her symptoms resolve and her lab work is unremarkable patient will be able to be discharged. I Mariana Snow MD am the desulfurizer machine of record. FINAL IMPRESSION No diagnosis found. DISPOSITION PATIENT REFERRED TO: No follow-up provider specified. DISCHARGE MEDICATIONS: New Prescriptions No medications on file (Comment: Please note this report has been produced using speech recognition software and may contain errors related to that system including errors in grammar, punctuation, and spelling, as well as words and phrases that may be inappropriate. If there are any questions or concerns please feel free to contact the dictating provider for clarification.) Mariana Snow MD (electronically signed) Emergency Medicine Provider Mariana Snow MD 05/16/23 0140 Emergency Department Encounter Location: [facility] ED Patient: Raiza Carey : 1965 Date of evaluation: 05/16/2023 ED Provider: Eder Phillips MD Time received sign-out: 1500 Raiza Carey was checked out to me by the previous team. Please see the initial documentation for details of the patient's initial ED presentation, physical exam and completed studies. In brief, Raiza Carey is a 57 y.o. adult that presented to the emergency department with chest pain. She was signed out to me pending a delta troponin. I have reviewed and interpreted all of the currently available lab results and diagnostics from this visit: Results for orders placed or performed during the hospital encounter of 05/16/23 Basic metabolic panel Result Value Ref Range SODIUM 138 135 - 145 mmol/L POTASSIUM 4.2 3.5 - 5.1 mmol/L CHLORIDE 105 98 - 107 mmol/L CARBON DIOXIDE 27 22 - 30 mmol/L UREA NITROGEN 16 7 - 17 mg/dL CREATININE 0.91 0.52 - 1.04 mg/dL GLUCOSE 170 (H) 70 - 100 mg/dL CALCIUM 9.4 8.4 - 10.4 mg/dL ANION GAP 6 3 - 13 mmol/L eGFR 74.7 >60.0 mL/min/1.73m*2 CBC auto differential Result Value Ref Range Auto WBC 2.9 (L) 3.6 - 10.7 10*3/uL RBC 4.51 3.8 - 5.20 10*6/uL Hemoglobin 12.3 11.7 - 16.0 g/dL Hematocrit 38.1 35.0 - 47.0 % MCV 84.4 80.0 - 98.0 fL MCH 27.3 26.0 - 34.0 pg MCHC 32.3 32.0 - 36.0 % RDW 16.5 (H) 11.5 - 14.5 % Platelets 69 (L) 140 - 440 10*3/uL MPV 8.4 7.4 - 12.4 fL Troponin, with Serial Reflex Result Value Ref Range TROPONIN I 0.012 <0.034 ng/mL Magnesium Result Value Ref Range MAGNESIUM 1.5 (L) 1.6 - 2.3 mg/dL Hepatic function panel Result Value Ref Range BILIRUBIN, TOTAL 1.1 0.2 - 1.3 mg/dL BILIRUBIN, DIRECT 0.0 0.0 - 0.3 mg/dL ALKALINE PHOSPHATASE 150 (H) 38 - 126 U/L AST (SGOT) 35 15 - 46 U/L ALT 29 0 - 34 U/L ALBUMIN 4.0 3.5 - 5.0 g/dL TOTAL PROTEIN 8.3 (H) 6.3 - 8.2 g/dL Man Differential Result Value Ref Range Adjusted WBC 2.9 (L) 3.6 - 10.7 10*3/uL Neutrophils % 72 40 - 80 % Lymphocytes % 22 20 - 40 % Monocytes % 5 2 - 10 % Basophils % 1 0 - 2 % Absolute Neutrophil Count 2.1 1.8 - 7.0 10*3/uL Lymphocytes Absolute 0.6 (L) 1.0 - 4.3 10*3/uL Monocytes Absolute 0.1 0.0 - 0.8 10*3/uL Basophils Absolute 0.0 0.0 - 0.2 10*3/uL Anisocytosis Moderate (A) (none) Ovalocytes Slight (A) (none) WBC Morphology Normal PLT Morphology Normal Total Counted 100 Neutrophils Manual 72 Lymphocytes Manual 22 Monocytes Manual 5 Basophils Manual 1 Differential Method Manual differential performed Troponin I Result Value Ref Range TROPONIN I <0.012 <0.034 ng/mL ECG 12 lead Result Value Ref Range Heart Rate 67 bpm QRSD Interval 106 ms QT Interval 412 ms QTC Interval 434 ms P Center 57 degrees QRS Center -62 degrees T Wave Center 60 degrees NM Interval 187 ms XR chest 1 view Final Result No acute cardiopulmonary disease. Report Dictated on Electronically Signed By: Fadi Sumner MD Electronically Signed Date/Time: 05/16/2023 1:16 PM EST Final ED Course and MDM: In brief, Raiza Carey is a 57 y.o. whose care was signed out to me by the outgoing provider. In brief, she was signed out to me pending a delta troponin. The delta troponin was negative. She is appropriate for discharge. She will be discharged. Medications sodium chloride 0.9 % bolus 1,000 mL (0 mL IntraVENous Stopped 05/16/23 5235) meclizine (Antivert) tablet 25 mg (25 mg Oral Given 05/16/23 1259) aspirin chewable tablet 324 mg (324 mg Oral Given 05/16/23 1259) magnesium oxide (Mag-Ox) tablet 400 mg (400 mg Oral Given 05/16/23 1336) Final Impression 1. Chest pain, unspecified type DISPOSITION (Please note that portions of this note may have been completed with a voice recognition program. Efforts were made to edit the dictations but occasionally words are mis-transcribed.) Eder Phillips MD [employer] Eder Phillips MD 05/16/23 1632 Eder Phillips MD 05/16/23 1632 Pt states she was off all of her medication due to no insurance since january. Started taking everything again on Wednesday (wellbutrin, buspar, metformin, labetolol) documented in this encounter [facility] 05-16-2023 Emergency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 grammar, punctuation, and spelling, as well as words and phrases that may be inappropriate. If there are any questions or concerns please feel free to contact the dictating provider for clarification. Yogesh Dodson MD Acute [facility] Yogesh Dodson MD 03/15/23 1609 [facility] 02-20-2023 Hospital Discharge instructions Nae Mobley NP - 02/20/2023 5:44 PM EDT No restriction, you may resume your normal level of activity once you feel able Nae Mobley NP - 02/20/2023 5:44 PM EDT Follow diabetic diet instructions, keep glucose tablets and a snack with carbs, protein, and fat nearby at all times (such as cheese and crackers, peanut butter and fruit, etc) The following attachments cannot be sent through Care Everywhere.Dealing with Low Blood Sugar from the Drugs You Take (Maldivian)Diabetic Meal Planning (Maldivian)Diabetes and Diet (Maldivian)documented in this encounter [facility] 02-20-2023 Plan of care note The patient is Moderately Stable - Low risk of patient condition declining or worsening The patient's goals for the shift include free of hypoglycemia The clinical goals for the shift include free of pain Over the shift, the patient did not make progress toward the following goals. Barriers to progression include NA. Recommendations to address these barriers include NA. [facility] 02-20-2023 Miscellaneous Notes The patient is Moderately Stable - Low risk of patient condition declining or worsening The patient's goals for the shift include free of hypoglycemia The clinical goals for the shift include free of pain Over the shift, the patient did not make progress toward the following goals. Barriers to progression include NA. Recommendations to address these barriers include NA. Was notified by nursing staff that patient is concerned about affording her insulin at discharge. She does have humulin R at home that she does receive free. Did provide her with [employer] list of insulin prices. She states it has been forever that she has been on two different types of insulin. She was wondering if [facility] could provide her insulin for free. Did inform her that unable to obtain any free medications for her over the weekend. Her visitor at bedside did state he would be able to get the $24.88 needed to obtain relion n or 70/30 if these were prescribed at discharge. Primary care nurse is going to update endocrinology that patient will need relion brand of insulin at discharge. Messaged endocrinology regarding home going insulin recommendations. . S/W, follow up Lengthy conversation with patient in room regarding her uninsured status and also medication needs. I did chart review. There is documentation from Sarah [employer] who has been assisting patient with medicaid and med resources. The patient informed me she is in the process of working on Medicaid with [facility]. She does see Dr. Ricketts under [facility]. In regrads to her Insulin, she does get Humulin for free and does have the medication at home. She is working with Dr. Ricketts's Office on getting the Jardiance, she has submitted for PAP but she needs to get her financial documents in to the Drug tire repairer. The patient also is prescribed Wellbutrin and Buspar. She does note she is able to afford the Buspr ($4 at [facility]) and Wellbutrin ($18 at [facility]) I did supply the patient with another Jardiance application for good measure if needed. If medication changes occur, suggest the most economical avenue. The patient at this time has all meds needed. Patient under Observation status in CDU 2 for hypoglycemia. Patient states she is unable to afford antidiabetics, MANAGER EMPLOYEE RELATIONS speaking with patient. Awaiting Endocrine Cons to determine status. TCC will continue to follow. documented in this encounter [facility] 02-20-2023 Note Formatting of this n ote might be different from the original. Was notified by nursing staff that patient is concerned about affording her insulin at discharge. She does have humulin R at home that she does receive free. Did provide her with [employer] list of insulin prices. She states it has been forever that she has been on two different types of insulin. She was wondering if [facility] could provide her insulin for free. Did inform her that unable to obtain any free medications for her over the weekend. Her visitor at bedside did state he would be able to get the $24.88 needed to obtain relion n or 70/30 if these were prescribed at discharge. Primary care nurse is going to update endocrinology that patient will need relion brand of insulin at discharge. Messaged endocrinology regarding home going insulin recommendations. . [facility] 02-20-2023 Note Formatting of this n ote might be different from the original. Was notified by nursing staff that patient is concerned about affording her insulin at discharge. She does have humulin R at home that she does receive free. Did provide her with [employer] list of insulin prices. She states it has been forever that she has been on two different types of insulin. She was wondering if [facility] could provide her insulin for free. Did inform her that unable to obtain any free medications for her over the weekend. Her visitor at bedside did state he would be able to get the $24.88 needed to obtain relion n or 70/30 if these were prescribed at discharge. Primary care nurse is going to update endocrinology that patient will need relion brand of insulin at discharge. Messaged endocrinology regarding home going insulin recommendations. . [facility] 02-20-2023 History of Present illness Narrative Nutrition rescreen complete. Pt assigned a level one for nutrition care. documented in this encounter [facility] 02-19-2023 Note Formatting of this n ote might be different from the original. S/W, follow up Lengthy conversation with patient in room regarding her uninsured status and also medication needs. I did chart review. There is documentation from Sarah Mosher [facility] who has been assisting patient with medicaid and med resources. The patient informed me she is in the process of working on Medicaid with [facility]. She does see Dr. Ricketts under [facility]. In regrads to her Insulin, she does get Humulin for free and does have the medication at home. She is working with Dr. Ricketts's Office on getting the Jardiance, she has submitted for PAP but she needs to get her financial documents in to the Drug tire repairer. The patient also is prescribed Wellbutrin and Buspar. She does note she is able to afford the Buspr ($4 at [facility]) and Wellbutrin ($18 at [facility]) I did supply the patient with another Jardiance application for good measure if needed. If medication changes occur, suggest the most economical avenue. The patient at this time has all meds needed. [facility] 02-19-2023 Note Formatting of this n ote might be different from the original. S/W, follow up Lengthy conversation with patient in room regarding her uninsured status and also medication needs. I did chart review. There is documentation from Sarah Mosher [facility] [employer] who has been assisting patient with medicaid and med resources. The patient informed me she is in the process of working on Medicaid with [facility]. She does see Dr. Ricketts under [facility]. In regrads to her Insulin, she does get Humulin for free and does have the medication at home. She is working with Dr. Ricketts's Office on getting the Jardiance, she has submitted for PAP but she needs to get her financial documents in to the Drug tire repairer. The patient also is prescribed Wellbutrin and Buspar. She does note she is able to afford the Buspr ($4 at [facility]) and Wellbutrin ($18 at [facility]) I did supply the patient with another Jardiance application for good measure if needed. If medication changes occur, suggest the most economical avenue. The patient at this time has all meds needed. [facility] 02-19-2023 Note Formatting of this n ote might be different from the original. Patient under Observation status in CDU 2 for hypoglycemia. Patient states she is unable to afford antidiabetics, MANAGER EMPLOYEE RELATIONS speaking with patient. Awaiting Endocrine Cons to determine status. TCC will continue to follow. [facility] 02-19-2023 Note Formatting of this n ote might be different from the original. Patient under Observation status in CDU 2 for hypoglycemia. Patient states she is unable to afford antidiabetics, MANAGER EMPLOYEE RELATIONS speaking with patient. Awaiting Endocrine Cons to determine status. TCC will continue to follow. T [facility] 02-19-2023 Consult note Associated Order (s): IP CONSULT TO ENDOCRINOLOGY Department of Internal Medicine Division of Endocrinology, Diabetes, & Metabolism Endocrinology Note Patient Name: Melanie Carey : 1965 AGE: 57 y.o. [facility] Admission Date: 02/18/2023 Visit Date: 02/19/2023 Reason for Endocrine Consult: dm2 hypoglycemia Provider/Team Requesting Consult: Dr. Fay PCP: See Ricketts MD Outpt Sales Agent [employer] Insurance: Yes , [facility] has not seen since 12/31 ASSESSMENT: Dm2 Hypoglycemia following re-initation of high dose u500 insulin regimen Pmhx Depression Dm2 Diabetic nephropathy Donna Obesity Htn Hlp Gerd Arthritis PLAN: Lantus 15 units once daily in am - give first dose now 5 hlog and low dose ss hlog meals Sliding scale hlog insulin at meals low Will likely need to increase doses based on response Dr. Garner to cover for endocrinology starting 02/19/23 at 5 pm until 02/22/23 at [address] Pemberton ICU goal <180 GMF goal <150 POCT ACHS Hypoglycemia per protocol Carb controlled diet ANTICIPATED ENDOCRINE HOME GOING RECOMMENDATIONS: Optimized for Discharge from Endocrine standpoint: No Home Going Endocrine Rx Recommendations-- U500 insulin doses to be determined Likely resume metformin provided renal function is adequate or no other contraindication Outpt Follow Up-- [facility] SUBJECTIVE/HPI: CHIEF COMPLAINT: Chief Complaint Patient presents with Hypoglycemia The patient presented with symptoms of weakness and diaphoresis and a lab finding of hypoglycemia. Pt had been off of her dm medications for financial reasons but they were resumed shortly before the hypoglycemia. Pmhx Depression Dm2 Diabetic nephropathy Donna Obesity Htn Hlp Gerd Arthritis Type of DM: 2 Onset of DM: circa 1994 Home DM Medication Regimen: u500 insulin 160/30/120/0 metformin 1000 mg twice daily DM control (last A1c/glucose data): Latest Reference Range & Units 01/15/20 14:28 05/13/20 16:38 03/31/21 16:52 HEMOGLOBIN A1C - [facility] % 8.9 11.3 9.3 Current therapy for diabetes in hospital: Carb controlled diet (5) Blood glucose 85-78-231 Pt has good appetite (ate a brownie) Dxed dm circa 1994 Fmhx mother dm Got insulin back last week but was taking erratically Last dose of insulin was u500 insulin 130 units thinks 02/17 evening Glucose Date/Time Value Ref Range Status 02/19/2023 02:16 PM 231 (H) 70 - 100 mg/dL Final 02/19/2023 10:38 AM 122 (H) 70 - 100 mg/dL Final 02/19/2023 06:38 AM 78 70 - 100 mg/dL Final 02/19/2023 12:43 AM 82 70 - 100 mg/dL Final 02/18/2023 10:11 PM 85 70 - 100 mg/dL Final 02/18/2023 09:08 PM 62 (L) 70 - 100 mg/dL Final Review of Systems Constitutional: Positive for activity change and fatigue. Negative for appetite change. HENT: Positive for hearing loss. Negative for trouble swallowing and voice change. Respiratory: Positive for apnea (donna). Negative for cough, shortness of breath and wheezing. Cardiovascular: Negative for chest pain and palpitations. Gastrointestinal: Negative for nausea and vomiting. Endocrine: Negative for cold intolerance and heat intolerance. Genitourinary: Negative for dysuria and hematuria. Skin: Negative for wound. Neurological: Positive for weakness. Negative for tremors. Hematological: Negative for adenopathy. Does not bruise/bleed easily. Psychiatric/Behavioral: Positive for sleep disturbance (donna). OBJECTIVE: Vitals: 02/19/23 0802 02/19/23 0938 02/19/23 0949 02/19/23 1414 BP: 137/73 135/74 (!) 146/80 130/78 BP Location: Left arm Right arm Left arm Patient Position: Sitting Sitting Sitting Pulse: 74 76 74 69 Resp: 18 20 20 Temp: 36.8 C (98.2 F) 36.6 C (97.8 F) 36.8 C (98.3 F) TempSrc: Temporal Temporal Temporal SpO2: 97% 97% 92% Physical Exam Vitals reviewed. Constitutional: General: She is not in acute distress. Appearance: She is obese. She is not ill-appearing. Cardiovascular: Rate and Rhythm: Normal rate and regular rhythm. Pulses: Normal pulses. Heart sounds: Normal heart sounds. No murmur heard. No friction rub. Pulmonary: Effort: Pulmonary effort is normal. No respiratory distress. Breath sounds: Normal breath sounds. No stridor. Musculoskeletal: Cervical back: Normal range of motion and neck supple. No rigidity or tenderness. Skin: General: Skin is warm and dry. Coloration: Skin is not jaundiced or pale. Comments: Feet 4/4 pulses no lesions Neurological: General: No focal deficit present. Mental Status: She is alert and oriented to person, place, and time. Cranial Nerves: No cranial nerve deficit. Sensory: No sensory deficit. Psychiatric: Mood and Affect: Mood normal. Behavior: Behavior normal. Thought Content: Thought content normal. Judgment: Judgment normal. 24 hour intake/output: Intake/Output Summary (Last 24 hours) at 02/19/2023 1448 Last data filed at 02/18/2023 2236 Gross per 24 hour Intake 37.5 ml Output -- Net 37.5 ml Diet: Adult diet Regular; 5 carb choices (75 gm/meal) Medications (as per EMR): HomeMeds: Current Outpatient Medications Medication Instructions albuterol 108 (90 Base) MCG/ACT inhaler 108 puffs, Inhalation, Every 6 hours PRN aspirin 81 mg, Oral, Daily buPROPion XL (WELLBUTRIN XL) 300 mg, Oral, Daily, Do not crush, chew, or split. busPIRone (BUSPAR) 10 mg, Oral, 2 times daily HumuLIN R U-500 KWIKPEN 500 UNIT/ML CONCENTRATED injection SubCUTAneous, 3 times daily before meals, 160 units at breakfast, 30 units with lunch and 120 units with dinner hydrOXYzine HCl (ATARAX) 25 mg, Oral, Every 8 hours PRN labetalol (NORMODYNE) 100 mg, Oral, Every 12 hours metFORMIN (GLUCOPHAGE) 1,000 mg, Oral, 2 time daily Unifine Pentips 31G X 8 MM misc No dose, route, or frequency recorded. Scheduled Meds:buPROPion XL, 300 mg, Oral, Daily busPIRone, 10 mg, Oral, BID labetalol, 100 mg, Oral, BID sodium chloride 0.9%, 5-40 mL, IntraVENous, q12h Continuous Infusions:dextrose, 200 mL/hr PRN Meds:PRN medications: acetaminophen, albuterol, dextrose, dextrose, dextrose, glucagon (rDNA), glucose, hydrOXYzine pamoate, ondansetron ODT OR ondansetron, polyethylene glycol (PEG) 3350, sodium chloride, sodium chloride 0.9% Diagnostic Workup: I reviewed pertinent Laboratory results, Radiographic results, and Other Clinical Notes at the time of today's encounter. Labs: No components found for: LABA1C No components found for: EAG Lab Results Component Value Date NA 140 02/18/2023 K 3.7 02/18/2023 CL 104 02/18/2023 CO2 29 02/18/2023 BUN 17 02/18/2023 CREATININE 0.91 02/18/2023 GLUCOSE 56 (L) 02/18/2023 CALCIUM 9.1 02/18/2023 Lab Results Component Value Date CHLPL 118 04/16/2021 CHOL 103 01/15/2020 Lab Results Component Value Date TRIG 192 04/16/2021 TRIG 162 (A) 01/15/2020 Lab Results Component Value Date HDL 32 (A) 04/16/2021 HDL 28 (L) 01/15/2020 Lab Results Component Value Date LDLCALC 48 04/16/2021 Lab Results Component Value Date VLDL 38 04/16/2021 Lab Results Component Value Date CHOLHDLRATIO 4 01/15/2020 No results found for: [id number] No results found for: TSH, Z3VTNPF, Z8GMXKQ, THYROIDAB Radiology reportsas per the Radiologist Radiology: No results found. History/Other: Past Medical History: Past Medical History: Diagnosis Date Anxiety Arthritis Chest pain Depression Diabetic nephropathy (CMS/HCC) (HCC) Elevated transaminase level Fatigue GERD (gastroesophageal reflux disease) Headache(784.0) Hemorrhoids Hyperlipidemia Hypertension Low back pain Neuropathic pain Obesity DONNA (obstructive sleep apnea) Rectal bleed Right leg weakness Trochanteric bursitis of left hip Bilateral Type II or unspecified type diabetes mellitus without mention of complication, not stated as uncontrolled (HCC) Uncontrolled type 2 diabetes mellitus with complication 02/19/2015 Past Surgical History: Past Surgical History: Procedure Laterality Date CARDIAC CATHETERIZATION 06/03/2018 CARPAL TUNNEL RELEASE CHOLECYSTECTOMY COLONOSCOPY 2012 ENDOMETRIAL ABLATION HERNIA REPAIR TONSILLECTOMY AND ADENOIDECTOMY (HISTORICAL) Allergy(ies): Allergies Allergen Reactions Cat Hair Extract Anaphylaxis and Swelling Lisinopril Angioedema Pollen Extract Unknown Family History: Family History Problem Relation Name Age of Onset Diabetes Mother Heart disease Father Cancer Father prostate High Blood Pressure Father Other ([id number]) Sister TBI Depression Mother Substance Abuse Brother Heart disease Mother Other ([id number]) Mother Depression Brother Social History: Social History Tobacco Use Smoking status: Former Packs/day: 2.00 Types: Cigarettes Quit date: 09/01/2013 Years since quittin.4 Smokeless tobacco: Never Substance Use Topics Alcohol use: Not Currently Alcohol/week: 0.0 standard drinks of alcohol Drug use: No I spent 75 minutes with the pt which involved coordination of care, medical evaluation, review of records, and/or counseling of the pt regarding his/her condition/disease state/prognosis on the date of this note. [employer] Work Phone: 02-19-2023 Consult note Associated Order (s): IP CONSULT TO ENDOCRINOLOGY Department of Internal Medicine Division of Endocrinology, Diabetes, & Metabolism Endocrinology Note Patient Name: Melanie Carey : 1965 AGE: 57 y.o. Room/Bed: [facility]/[address] Admission Date: 02/18/2023 Visit Date: 02/19/2023 Reason for Endocrine Consult: dm2 hypoglycemia Provider/Team Requesting Consult: Dr. 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 Garner to cover for endocrinology starting 02/19/23 at 5 pm until 02/22/23 at [address] Pemberton ICU goal <180 GMF goal <150 POCT ACHS Hypoglycemia per protocol Carb controlled diet ANTICIPATED ENDOCRINE HOME GOING RECOMMENDATIONS: Optimized for Discharge from Endocrine standpoint: No Home Going Endocrine Rx Recommendations-- U500 insulin doses to be determined Likely resume metformin provided renal function is adequate or no other contraindication Outpt Follow Up-- [facility] SUBJECTIVE/HPI: CHIEF COMPLAINT: Chief Complaint Patient presents with Hypoglycemia The patient presented with symptoms of weakness and diaphoresis and a lab finding of hypoglycemia. Pt had been off of her dm medications for financial reasons but they were resumed shortly before the hypoglycemia. Pmhx Depression Dm2 Diabetic nephropathy Donna Obesity Htn Hlp Gerd Arthritis Type of DM: 2 Onset of DM: circa 1994 Home DM Medication Regimen: u500 insulin 160/30/120/0 metformin 1000 mg twice daily DM control (last A1c/glucose data): Latest Reference Range & Units 01/15/20 14:28 05/13/20 16:38 03/31/21 16:52 HEMOGLOBIN A1C - [facility] % 8.9 11.3 9.3 Current therapy for diabetes in hospital: Carb controlled diet (5) Blood glucose 85-78-231 Pt has good appetite (ate a brownie) Dxed dm circa 1994 Fmhx mother dm Got insulin back last week but was taking erratically Last dose of insulin was u500 insulin 130 units thinks 02/17 evening Glucose Date/Time Value Ref Range Status 02/19/2023 02:16 PM 231 (H) 70 - 100 mg/dL Final 02/19/2023 10:38 AM 122 (H) 70 - 100 mg/dL Final 02/19/2023 06:38 AM 78 70 - 100 mg/dL Final 02/19/2023 12:43 AM 82 70 - 100 mg/dL Final 02/18/2023 10:11 PM 85 70 - 100 mg/dL Final 02/18/2023 09:08 PM 62 (L) 70 - 100 mg/dL Final Review of Systems Constitutional: Positive for activity change and fatigue. Negative for appetite change. HENT: Positive for hearing loss. Negative for trouble swallowing and voice change. Respiratory: Positive for apnea (donna). Negative for cough, shortness of breath and wheezing. Cardiovascular: Negative for chest pain and palpitations. Gastrointestinal: Negative for nausea and vomiting. Endocrine: Negative for cold intolerance and heat intolerance. Genitourinary: Negative for dysuria and hematuria. Skin: Negative for wound. Neurological: Positive for weakness. Negative for tremors. Hematological: Negative for adenopathy. Does not bruise/bleed easily. Psychiatric/Behavioral: Positive for sleep disturbance (donna). OBJECTIVE: Vitals: 02/19/23 0802 02/19/23 0938 02/19/23 0949 02/19/23 1414 BP: 137/73 135/74 (!) 146/80 130/78 BP Location: Left arm Right arm Left arm Patient Position: Sitting Sitting Sitting Pulse: 74 76 74 69 Resp: 18 20 20 Temp: 36.8 C (98.2 F) 36.6 C (97.8 F) 36.8 C (98.3 F) TempSrc: Temporal Temporal Temporal SpO2: 97% 97% 92% Physical Exam Vitals reviewed. Constitutional: General: She is not in acute distress. Appearance: She is obese. She is not ill-appearing. Cardiovascular: Rate and Rhythm: Normal rate and regular rhythm. Pulses: Normal pulses. Heart sounds: Normal heart sounds. No murmur heard. No friction rub. Pulmonary: Effort: Pulmonary effort is normal. No respiratory distress. Breath sounds: Normal breath sounds. No stridor. Musculoskeletal: Cervical back: Normal range of motion and neck supple. No rigidity or tenderness. Skin: General: Skin is warm and dry. Coloration: Skin is not jaundiced or pale. Comments: Feet 4/4 pulses no lesions Neurological: General: No focal deficit present. Mental Status: She is alert and oriented to person, place, and time. Cranial Nerves: No cranial nerve deficit. Sensory: No sensory deficit. Psychiatric: Mood and Affect: Mood normal. Behavior: Behavior normal. Thought Content: Thought content normal. Judgment: Judgment normal. 24 hour intake/output: Intake/Output Summary (Last 24 hours) at 02/19/2023 1448 Last data filed at 02/18/2023 2236 Gross per 24 hour Intake 37.5 ml Output -- Net 37.5 ml Diet: Adult diet Regular; 5 carb choices (75 gm/meal) Medications (as per EMR): HomeMeds: Current Outpatient Medications Medication Instructions albuterol 108 (90 Base) MCG/ACT inhaler 108 puffs, Inhalation, Every 6 hours PRN aspirin 81 mg, Oral, Daily buPROPion XL (WELLBUTRIN XL) 300 mg, Oral, Daily, Do not crush, chew, or split. busPIRone (BUSPAR) 10 mg, Oral, 2 times daily HumuLIN R U-500 KWIKPEN 500 UNIT/ML CONCENTRATED injection SubCUTAneous, 3 times daily before meals, 160 units at breakfast, 30 units with lunch and 120 units with dinner hydrOXYzine HCl (ATARAX) 25 mg, Oral, Every 8 hours PRN labetalol (NORMODYNE) 100 mg, Oral, Every 12 hours metFORMIN (GLUCOPHAGE) 1,000 mg, Oral, 2 time daily Unifine Pentips 31G X 8 MM misc No dose, route, or frequency recorded. Scheduled Meds:buPROPion XL, 300 mg, Oral, Daily busPIRone, 10 mg, Oral, BID labetalol, 100 mg, Oral, BID sodium chloride 0.9%, 5-40 mL, IntraVENous, q12h Continuous Infusions:dextrose, 200 mL/hr PRN Meds:PRN medications: acetaminophen, albuterol, dextrose, dextrose, dextrose, glucagon (rDNA), glucose, hydrOXYzine pamoate, ondansetron ODT OR ondansetron, polyethylene glycol (PEG) 3350, sodium chloride, sodium chloride 0.9% Diagnostic Workup: I reviewed pertinent Laboratory results, Radiographic results, and Other Clinical Notes at the time of today's encounter. Labs: No components found for: LABA1C No components found for: EAG Lab Results Component Value Date NA 140 02/18/2023 K 3.7 02/18/2023 CL 104 02/18/2023 CO2 29 02/18/2023 BUN 17 02/18/2023 CREATININE 0.91 02/18/2023 GLUCOSE 56 (L) 02/18/2023 CALCIUM 9.1 02/18/2023 Lab Results Component Value Date CHLPL 118 04/16/2021 CHOL 103 01/15/2020 Lab Results Component Value Date TRIG 192 04/16/2021 TRIG 162 (A) 01/15/2020 Lab Results Component Value Date HDL 32 (A) 04/16/2021 HDL 28 (L) 01/15/2020 Lab Results Component Value Date LDLCALC 48 04/16/2021 Lab Results Component Value Date VLDL 38 04/16/2021 Lab Results Component Value Date CHOLHDLRATIO 4 01/15/2020 No results found for: [id number] No results found for: TSH, C5JKMID, G3MYUTV, THYROIDAB Radiology reportsas per the Radiologist Radiology: No results found. History/Other: Past Medical History: Past Medical History: Diagnosis Date Anxiety Arthritis Chest pain Depression Diabetic nephropathy (CMS/HCC) (HCC) Elevated transaminase level Fatigue GERD (gastroesophageal reflux disease) Headache(784.0) Hemorrhoids Hyperlipidemia Hypertension Low back pain Neuropathic pain Obesity DONNA (obstructive sleep apnea) Rectal bleed Right leg weakness Trochanteric bursitis of left hip Bilateral Type II or unspecified type diabetes mellitus without mention of complication, not stated as uncontrolled (HCC) Uncontrolled type 2 diabetes mellitus with complication 02/19/2015 Past Surgical History: Past Surgical History: Procedure Laterality Date CARDIAC CATHETERIZATION 06/03/2018 CARPAL TUNNEL RELEASE CHOLECYSTECTOMY COLONOSCOPY 2012 ENDOMETRIAL ABLATION HERNIA REPAIR TONSILLECTOMY AND ADENOIDECTOMY (HISTORICAL) Allergy(ies): Allergies Allergen Reactions Cat Hair Extract Anaphylaxis and Swelling Lisinopril Angioedema Pollen Extract Unknown Family History: Family History Problem Relation Name Age of Onset Diabetes Mother Heart disease Father Cancer Father prostate High Blood Pressure Father Other ([id number]) Sister TBI Depression Mother Substance Abuse Brother Heart disease Mother Other ([id number]) Mother Depression Brother Social History: Social History Tobacco Use Smoking status: Former Packs/day: 2.00 Types: Cigarettes Quit date: 09/01/2013 Years since quittin.4 Smokeless tobacco: Never Substance Use Topics Alcohol use: Not Currently Alcohol/week: 0.0 standard drinks of alcohol Drug use: No I spent 75 minutes with the pt which involved coordination of care, medical evaluation, review of records, and/or counseling of the pt regarding his/her condition/disease state/prognosis on the date of this note. documented in this encounter [facility] 02-19-2023 History and physical note Images from the original note were not included. CDU History and Physical Observation Date: 02/18/20232145 PCP: See Ricketts MD CHIEF COMPLAINT: Hypoglycemia Limitations to history: None Outside historians: None HISTORY OF PRESENT ILLNESS: Melanie is a 57 y.o. female with past medical history below who presents with episodic hypoglycemia, apparently yesterday morning she checked her BG and it was 48 she was not having any significant symptoms. She had breakfast and her BG peaked at 80 and continued to drop down throughout the day. She has had some weakness, diaphoresis due to the hypoglycemia. She is insulin-dependent diabetic, recently has not been on any medication due to not being able to afford them with her insurance, just resumed taking her medicine a few days ago and was in the ED 02/13 for near syncopal episode. She denies chest pain, shortness of breath, abdominal pain, nausea, vomiting, diarrhea, change in bowel or bladder habits. BG improved with treatment in the ED. She was observed to CDU service for further evaluation of her episodic hypoglycemia. REVIEW OF SYSTEMS A focused review of systems was performed and is negative except as stated in above HPI. Past Medical & Social History Past Medical History: Diagnosis Date Anxiety Arthritis Chest pain Depression Diabetic nephropathy (CMS/HCC) (HCC) Elevated transaminase level Fatigue GERD (gastroesophageal reflux disease) Headache(784.0) Hemorrhoids Hyperlipidemia Hypertension Low back pain Neuropathic pain Obesity DONNA (obstructive sleep apnea) Rectal bleed Right leg weakness Trochanteric bursitis of left hip Bilateral Type II or unspecified type diabetes mellitus without mention of complication, not stated as uncontrolled (HCC) Uncontrolled type 2 diabetes mellitus with complication 02/19/2015 Past Surgical History: Procedure Laterality Date CARDIAC CATHETERIZATION 06/03/2018 CARPAL TUNNEL RELEASE CHOLECYSTECTOMY COLONOSCOPY 2011 ENDOMETRIAL ABLATION HERNIA REPAIR TONSILLECTOMY AND ADENOIDECTOMY (HISTORICAL) Family History Problem Relation Name Age of Onset Diabetes Mother Heart disease Father Cancer Father prostate High Blood Pressure Father Other ([id number]) Sister TBI Depression Mother Substance Abuse Brother Heart disease Mother Other ([id number]) Mother Depression Brother Social History Socioeconomic History Marital status: Spouse name: Not on file Number of children: Not on file Years of education: Not on file Highest education level: Not on file Occupational History Not on file Tobacco Use Smoking status: Former Packs/day: 2.00 Types: Cigarettes Quit date: 09/01/2013 Years since quittin.4 Smokeless tobacco: Never Substance and Sexual Activity Alcohol use: Not Currently Alcohol/week: 0.0 standard drinks of alcohol Drug use: No Sexual activity: Not on file Other Topics Concern Not on file Social History Narrative Not on file Social Determinants of Health Financial Resource Strain: High Risk (12/30/2022) Overall Financial Resource Strain (CARDIA) Difficulty of Paying Living Expenses: Very hard Food Insecurity: No Food Insecurity (02/11/2023) Hunger Vital Sign Worried About Running Out of Food in the Last Year: Never true Ran Out of Food in the Last Year: Never true Transportation Needs: No Transportation Needs (12/30/2022) PRAPARE - Transportation Lack of Transportation (Medical): No Lack of Transportation (Non-Medical): No Physical Activity: Inactive (02/11/2023) Exercise Vital Sign Days of Exercise per Week: 0 days Minutes of Exercise per Session: 0 min Stress: Not on file Social Connections: Not on file Intimate Partner Violence: Not on file Housing Stability: Low Risk (02/11/2023) Housing Stability Vital Sign Unable to Pay for Housing in the Last Year: No Number of Places Lived in the Last Year: 2 Unstable Housing in the Last Year: No Current Facility-Administered Medications Medication Dose Route Frequency Provider Last Rate Last Admin acetaminophen (Tylenol) suppository 650 mg 650 mg Rectal q6h PRN NICOLE Rajan CNP albuterol 108 (90 Base) MCG/ACT inhaler 2 puff 2 puff Inhalation q6h PRN NICOLE Rajan CNP buPROPion XL (Wellbutrin XL) 24 hr tablet 300 mg 300 mg Oral Daily NICOLE Rajan CNP 300 mg at 02/19/23 0938 busPIRone (Buspar) tablet 10 mg 10 mg Oral BID NICOLE Rajan CNP 10 mg at 02/19/23 0938 dextrose 10 % infusion 200 mL/hr IntraVENous Continuous PRN Benjamin Bates PA-C dextrose 5 % infusion 100 mL/hr IntraVENous PRN Benjamin Bates PA-C dextrose 50 % solution 12.5 g 12.5 g IntraVENous PRN Benjamin Bates PA-C glucagon (human recombinant) injection 1 mg 1 mg IntraMUSCular PRN Benjamin Bates PA-C glucose oral gel 15 g 15 g Oral PRN Benjamin Bates PA-C hydrOXYzine pamoate (Vistaril) capsule 25 mg 25 mg Oral q8h PRN Fernie Resendiz APRN - [facility] labetalol (Normodyne) tablet 100 mg 100 mg Oral BID Fernie Resendiz, BACTERIOLOGIST DAIRY - PATTERN CARRIER 100 mg at 02/19/23 0938 ondansetron ODT (Zofran-ODT) disintegrating tablet 4 mg 4 mg Oral q8h PRN Fernie Resendiz, BACTERIOLOGIST DAIRY - [facility] Or ondansetron (Zofran) injection 4 mg 4 mg IntraVENous q6h PRN Fernie Resendiz, BACTERIOLOGIST DAIRY - PATTERN CARRIER polyethylene glycol (PEG) 3350 (Miralax) packet 17 g 17 g Oral Daily PRN Fernie Resendiz, BACTERIOLOGIST DAIRY - PATTERN CARRIER sodium chloride 0.9 % infusion 5-250 mL/hr IntraVENous PRN Fernie Martín, BACTERIOLOGIST DAIRY - PATTERN CARRIER sodium chloride 0.9% (NS) flush 5-40 mL 5-40 mL IntraVENous q12h Fernie Resendiz, BACTERIOLOGIST DAIRY - PATTERN CARRIER 10 mL at 02/18/23 2213 sodium chloride 0.9% (NS) flush 5-40 mL 5-40 mL IntraVENous PRN Fernie Resendiz, BACTERIOLOGIST DAIRY - PATTERN CARRIER Allergies Allergen Reactions Cat Hair Extract Anaphylaxis and Swelling Lisinopril Angioedema Pollen Extract Unknown PHYSICAL EXAM VITAL SIGNS: BP 130/78 (BP Location: Left arm, Patient Position: Sitting) Pulse 69 Temp 36.8 C (98.3 F) (Temporal) Resp 20 SpO2 92% Pulse Ox: SpO2 Av.4 % Min: 92 % Max: 100 % Supplemental O2: Physical Exam Constitutional: Appearance: She is obese. Comments: Pleasant female, nondistressed, cooperative. HENT: Head: Normocephalic and atraumatic. Cardiovascular: Rate and Rhythm: Normal rate and regular rhythm. Heart sounds: Normal heart sounds. Pulmonary: Effort: Pulmonary effort is normal. Breath sounds: Normal breath sounds and air entry. No decreased breath sounds, wheezing, rhonchi or rales. Musculoskeletal: Cervical back: Full passive range of motion without pain, normal range of motion and neck supple. Neurological: Mental Status: She is alert and oriented to person, place, and time. LABS: Labs Reviewed CBC WITH AUTO DIFFERENTIAL - Abnormal Result Value Auto WBC 3.0 (*) RBC 4.52 Hemoglobin 12.2 Hematocrit 38.4 MCV 85.0 MCH 27.1 MCHC 31.8 (*) RDW 16.5 (*) Platelets 74 (*) MPV 8.2 nRBC 0.1 Neutrophils Relative 71.6 Lymphocytes Relative 20.0 Monocytes Relative 8.3 Eosinophils Relative 0.0 (*) Basophils Relative 0.1 Neutrophils Absolute 2.2 Lymphocytes Absolute 0.6 (*) Monocytes Absolute 0.3 Eosinophils Absolute 0.0 Basophils Absolute 0.0 COMPREHENSIVE METABOLIC PANEL - Abnormal SODIUM 140 POTASSIUM 3.7 CHLORIDE 104 CARBON DIOXIDE 29 ANION GAP 7 UREA NITROGEN 17 CREATININE 0.91 GLUCOSE 56 (*) CALCIUM 9.1 AST (SGOT) 41 ALT 20 ALKALINE PHOSPHATASE 139 (*) ALBUMIN 3.8 BILIRUBIN, TOTAL 0.7 TOTAL PROTEIN 7.4 eGFR 74.7 COMPLETE URINALYSIS - Abnormal Color, Urine Yellow Clarity, Urine Clear pH, Urine 5.5 Leukocytes, Urine Negative Nitrite, Urine Negative Protein, Urine 30 (*) Glucose, Urine Normal Bilirubin, Urine Negative Ketones, Urine Negative Urobilinogen, Urine Normal Blood, Urine Negative RBC, Urine 0-2 WBC, Urine 0-2 Squamous Epithelial, Urine 11-25 (*) Bacteria, Urine Few (*) Mucus, Urine Few Hyaline Casts, Urine 0-2 (*) SPECIFIC GRAVITY OF URINE (NUMERIC) 1.019 POCT GLUCOSE METER UNSOLICITED RESULTS - Abnormal Glucose 60 (*) Narrative: Performed by: [facility], [address] [place] [address] CLIA ID: [id number] POCT GLUCOSE METER UNSOLICITED RESULTS - Abnormal Glucose 62 (*) Narrative: Performed by: [facility], [address] [place] [address] CLIA ID: [id number] POCT GLUCOSE METER UNSOLICITED RESULTS - Abnormal Glucose 122 (*) Narrative: Performed by: [facility], [address] [place] [id number] CLIA ID: [id number] SARS-COV-2, FLU A/B, AND RSV COMBO - Normal SARS-CoV-2 Not Detected Respiratory Syncytial Virus Not Detected Influenza A Not Detected Influenza B Not Detected Narrative: Methodology: real-time, RT-PCR The SARS-CoV-2, Flu A/B, and RSV Combo assay is intended for in vitro diagnostic use under the FDA Emergency Use Authorization (EUA). This test has not been FDA cleared or approved. In compliance with this authorization, please visit www.fda.gov/media/343701/download or www.fda.gov/media/674287/download to access the applicable information sheets. POCT GLUCOSE METER UNSOLICITED RESULTS - Normal Glucose 82 Narrative: Performed by: [facility], [address] [place] [id number] CLIA ID: [id number] POCT GLUCOSE METER UNSOLICITED RESULTS - Normal Glucose 85 Narrative: Performed by: [facility], [address] [place] [address] CLIA ID: [id number] POCT GLUCOSE METER UNSOLICITED RESULTS - Normal Glucose 82 Narrative: Performed by: [facility], [address] [place] [address] CLIA ID: [id number] POCT GLUCOSE METER UNSOLICITED RESULTS - Normal Glucose 78 Narrative: Performed by: [facility], [address] [place] [address] CLIA ID: [id number] POCT GLUCOSE METER POCT GLUCOSE METER POCT GLUCOSE METER POCT GLUCOSE METER POCT GLUCOSE METER POCT GLUCOSE METER POCT GLUCOSE METER POCT GLUCOSE METER POCT GLUCOSE METER POCT GLUCOSE METER POCT GLUCOSE METER POCT GLUCOSE METER POCT GLUCOSE METER POCT GLUCOSE METER POCT GLUCOSE METER POCT GLUCOSE METER POCT GLUCOSE METER POCT GLUCOSE METER RADIOLOGY: No orders to display Medical decision making: The patient is placed in the CDU for further evaluation after initial ED workup. Independent review of ED workup: Initial [id number] BG was 60. Shows WBC of 3, hemoglobin 12.2, no significant acute abnormalities. CMP shows normal electrolytes and kidney function, BG was low at 56, ALP 139 otherwise normal LFTs. COVID flu RSV swab negative. Latest POC BG at 0638 this morning is 78. External records reviewed: Patient seen here at [facility] ED 02/13/2023 for near syncope, at that time her BG was 198, she was ultimately discharged. Office visit 02/16/2023 with [facility], per notes she had just restarted her insulin which her provider expected to help and there were no adjustments made to her regimen at that time. Historically on metformin 1000 mg twice daily, Humulin R U-500 160 units at breakfast 30 units at lunch 120 units at dinner. Social determinants of care: Financial constraints/insurance issues affording medication -consulted social work EKG Interpretation: N/a Clinical Impression / Assessment / Plan 1. IDDM2 with episodic hypoglycemia, acute -Poor compliance to medication regimen due to financial constraints, just restarted her U-500, experiencing lows with this. We will consult endocrinology to optimize her regimen. 2. Hypertension, chronic -BP stable here in the 130/70 range, continue home regimen. 3. Thrombocytopenia, chronic -Platelets 74 yesterday, 6 days ago 64, 2 months ago 66, appears per family practice notes this is being worked up outpatient with peripheral smear and referral to hematology. 4. Obesity -Encourage weight loss and lifestyle mods DVT prophylaxis: low risk via USACS VTE ppx CMT, encourage ambulation Due to the review of above complex data and the acute illness and/or undiagnosed new problem which may pose significant morbidity, The complexity of this case is: Mau Bates PA-C CDU Advanced Practice Provider [facility] (Comment: Please note this report has been produced using speech recognition software and may contain errors related to that system including errors in grammar, punctuation, and spelling, as well as words and phrases that may be inappropriate. If there are any questions or concerns please feel free to contact the dictating provider for clarification.) [employer] Work Phone: 02-19-2023 History and physical note Images from the original note were not included. CDU History and Physical Observation Date: 02/18/20232145 PCP: See Ricketts MD CHIEF COMPLAINT: Hypoglycemia Limitations to history: None Outside historians: None HISTORY OF PRESENT ILLNESS: Melanie is a 57 y.o. female with past medical history below who presents with episodic hypoglycemia, apparently yesterday morning she checked her BG and it was 48 she was not having any significant symptoms. She had breakfast and her BG peaked at 80 and continued to drop down throughout the day. She has had some weakness, diaphoresis due to the hypoglycemia. She is insulin-dependent diabetic, recently has not been on any medication due to not being able to afford them with her insurance, just resumed taking her medicine a few days ago and was in the ED 02/13 for near syncopal episode. She denies chest pain, shortness of breath, abdominal pain, nausea, vomiting, diarrhea, change in bowel or bladder habits. BG improved with treatment in the ED. She was observed to CDU service for further evaluation of her episodic hypoglycemia. REVIEW OF SYSTEMS A focused review of systems was performed and is negative except as stated in above HPI. Past Medical & Social History Past Medical History: Diagnosis Date Anxiety Arthritis Chest pain Depression Diabetic nephropathy (CMS/HCC) (HCC) Elevated transaminase level Fatigue GERD (gastroesophageal reflux disease) Headache(784.0) Hemorrhoids Hyperlipidemia Hypertension Low back pain Neuropathic pain Obesity DONNA (obstructive sleep apnea) Rectal bleed Right leg weakness Trochanteric bursitis of left hip Bilateral Type II or unspecified type diabetes mellitus without mention of complication, not stated as uncontrolled (HCC) Uncontrolled type 2 diabetes mellitus with complication 02/19/2015 Past Surgical History: Procedure Laterality Date CARDIAC CATHETERIZATION 06/03/2018 CARPAL TUNNEL RELEASE CHOLECYSTECTOMY COLONOSCOPY 2012 ENDOMETRIAL ABLATION HERNIA REPAIR TONSILLECTOMY AND ADENOIDECTOMY (HISTORICAL) Family History Problem Relation Name Age of Onset Diabetes Mother Heart disease Father Cancer Father prostate High Blood Pressure Father Other ([id number]) Sister TBI Depression Mother Substance Abuse Brother Heart disease Mother Other ([id number]) Mother Depression Brother Social History Socioeconomic History Marital status: Spouse name: Not on file Number of children: Not on file Years of education: Not on file Highest education level: Not on file Occupational History Not on file Tobacco Use Smoking status: Former Packs/day: 2.00 Types: Cigarettes Quit date: 09/01/2013 Years since quittin.4 Smokeless tobacco: Never Substance and Sexual Activity Alcohol use: Not Currently Alcohol/week: 0.0 standard drinks of alcohol Drug use: No Sexual activity: Not on file Other Topics Concern Not on file Social History Narrative Not on file Social Determinants of Health Financial Resource Strain: High Risk (12/30/2022) Overall Financial Resource Strain (CARDIA) Difficulty of Paying Living Expenses: Very hard Food Insecurity: No Food Insecurity (02/11/2023) Hunger Vital Sign Worried About Running Out of Food in the Last Year: Never true Ran Out of Food in the Last Year: Never true Transportation Needs: No Transportation Needs (12/30/2022) PRAPARE - Transportation Lack of Transportation (Medical): No Lack of Transportation (Non-Medical): No Physical Activity: Inactive (02/11/2023) Exercise Vital Sign Days of Exercise per Week: 0 days Minutes of Exercise per Session: 0 min Stress: Not on file Social Connections: Not on file Intimate Partner Violence: Not on file Housing Stability: Low Risk (02/11/2023) Housing Stability Vital Sign Unable to Pay for Housing in the Last Year: No Number of Places Lived in the Last Year: 2 Unstable Housing in the Last Year: No Current Facility-Administered Medications Medication Dose Route Frequency Provider Last Rate Last Admin acetaminophen (Tylenol) suppository 650 mg 650 mg Rectal q6h PRN NICOLE Rajan CNP albuterol 108 (90 Base) MCG/ACT inhaler 2 puff 2 puff Inhalation q6h PRN NICOLE Rajan CNP buPROPion XL (Wellbutrin XL) 24 hr tablet 300 mg 300 mg Oral Daily NICOLE Rajan CNP 300 mg at 02/19/23 0938 busPIRone (Buspar) tablet 10 mg 10 mg Oral BID NICOLE Rajan CNP 10 mg at 02/19/23 0938 dextrose 10 % infusion 200 mL/hr IntraVENous Continuous PRN Benjamin Bates PA-C dextrose 5 % infusion 100 mL/hr IntraVENous PRN Benjamin Bates PA-C dextrose 50 % solution 12.5 g 12.5 g IntraVENous PRN Benjamin Bates PA-C glucagon (human recombinant) injection 1 mg 1 mg IntraMUSCular PRN Benjamin Bates PA-C glucose oral gel 15 g 15 g Oral PRN Benjamin Bates PA-C hydrOXYzine pamoate (Vistaril) capsule 25 mg 25 mg Oral q8h PRN NICOLE Rajan CNP labetalol (Normodyne) tablet 100 mg 100 mg Oral BID NICOLE Rajan CNP 100 mg at 02/19/23 0938 ondansetron ODT (Zofran-ODT) disintegrating tablet 4 mg 4 mg Oral q8h PRN Fernie Resendiz, BACTERIOLOGIST DAIRY - PATTERN CARRIER Or ondansetron (Zofran) injection 4 mg 4 mg IntraVENous q6h PRN Fernie Resendiz, BACTERIOLOGIST DAIRY - PATTERN CARRIER polyethylene glycol (PEG) 3350 (Miralax) packet 17 g 17 g Oral Daily PRN Fernie Resendiz, BACTERIOLOGIST DAIRY - PATTERN CARRIER sodium chloride 0.9 % infusion 5-250 mL/hr IntraVENous PRN Fernie Resendiz, BACTERIOLOGIST DAIRY - PATTERN CARRIER sodium chloride 0.9% (NS) flush 5-40 mL 5-40 mL IntraVENous q12h Fernie Resendiz, BACTERIOLOGIST DAIRY - PATTERN CARRIER 10 mL at 02/18/23 2213 sodium chloride 0.9% (NS) flush 5-40 mL 5-40 mL IntraVENous PRN Fernie Resendiz, BACTERIOLOGIST DAIRY - PATTERN CARRIER Allergies Allergen Reactions Cat Hair Extract Anaphylaxis and Swelling Lisinopril Angioedema Pollen Extract Unknown PHYSICAL EXAM VITAL SIGNS: BP 130/78 (BP Location: Left arm, Patient Position: Sitting) Pulse 69 Temp 36.8 C (98.3 F) (Temporal) Resp 20 SpO2 92% Pulse Ox: SpO2 Av.4 % Min: 92 % Max: 100 % Supplemental O2: Physical Exam Constitutional: Appearance: She is obese. Comments: Pleasant female, nondistressed, cooperative. HENT: Head: Normocephalic and atraumatic. Cardiovascular: Rate and Rhythm: Normal rate and regular rhythm. Heart sounds: Normal heart sounds. Pulmonary: Effort: Pulmonary effort is normal. Breath sounds: Normal breath sounds and air entry. No decreased breath sounds, wheezing, rhonchi or rales. Musculoskeletal: Cervical back: Full passive range of motion without pain, normal range of motion and neck supple. Neurological: Mental Status: She is alert and oriented to person, place, and time. LABS: Labs Reviewed CBC WITH AUTO DIFFERENTIAL - Abnormal Result Value Auto WBC 3.0 (*) RBC 4.52 Hemoglobin 12.2 Hematocrit 38.4 MCV 85.0 MCH 27.1 MCHC 31.8 (*) RDW 16.5 (*) Platelets 74 (*) MPV 8.2 nRBC 0.1 Neutrophils Relative 71.6 Lymphocytes Relative 20.0 Monocytes Relative 8.3 Eosinophils Relative 0.0 (*) Basophils Relative 0.1 Neutrophils Absolute 2.2 Lymphocytes Absolute 0.6 (*) Monocytes Absolute 0.3 Eosinophils Absolute 0.0 Basophils Absolute 0.0 COMPREHENSIVE METABOLIC PANEL - Abnormal SODIUM 140 POTASSIUM 3.7 CHLORIDE 104 CARBON DIOXIDE 29 ANION GAP 7 UREA NITROGEN 17 CREATININE 0.91 GLUCOSE 56 (*) CALCIUM 9.1 AST (SGOT) 41 ALT 20 ALKALINE PHOSPHATASE 139 (*) ALBUMIN 3.8 BILIRUBIN, TOTAL 0.7 TOTAL PROTEIN 7.4 eGFR 74.7 COMPLETE URINALYSIS - Abnormal Color, Urine Yellow Clarity, Urine Clear pH, Urine 5.5 Leukocytes, Urine Negative Nitrite, Urine Negative Protein, Urine 30 (*) Glucose, Urine Normal Bilirubin, Urine Negative Ketones, Urine Negative Urobilinogen, Urine Normal Blood, Urine Negative RBC, Urine 0-2 WBC, Urine 0-2 Squamous Epithelial, Urine 11-25 (*) Bacteria, Urine Few (*) Mucus, Urine Few Hyaline Casts, Urine 0-2 (*) SPECIFIC GRAVITY OF URINE (NUMERIC) 1.019 POCT GLUCOSE METER UNSOLICITED RESULTS - Abnormal Glucose 60 (*) Narrative: Performed by: [facility], [address] [place] [address] CLIA ID: [id number] POCT GLUCOSE METER UNSOLICITED RESULTS - Abnormal Glucose 62 (*) Narrative: Performed by: [facility], [address] [place] [address] CLIA ID: [id number] POCT GLUCOSE METER UNSOLICITED RESULTS - Abnormal Glucose 122 (*) Narrative: Performed by: [facility], [address] [place] [address] CLIA ID: [id number] SARS-COV-2, FLU A/B, AND RSV COMBO - Normal SARS-CoV-2 Not Detected Respiratory Syncytial Virus Not Detected Influenza A Not Detected Influenza B Not Detected Narrative: Methodology: real-time, RT-PCR The SARS-CoV-2, Flu A/B, and RSV Combo assay is intended for in vitro diagnostic use under the FDA Emergency Use Authorization (EUA). This test has not been FDA cleared or approved. In compliance with this authorization, please visit www.fda.gov/media/456933/download or www.fda.gov/media/051821/download to access the applicable information sheets. POCT GLUCOSE METER UNSOLICITED RESULTS - Normal Glucose 82 Narrative: Performed by: [facility], [address] [place] [address] CLIA ID: [id number] POCT GLUCOSE METER UNSOLICITED RESULTS - Normal Glucose 85 Narrative: Performed by: [facility], [address] [place] [address] CLIA ID: [id number] POCT GLUCOSE METER UNSOLICITED RESULTS - Normal Glucose 82 Narrative: Performed by: [facility], [address] [place] [address] CLIA ID: [id number] POCT GLUCOSE METER UNSOLICITED RESULTS - Normal Glucose 78 Narrative: Performed by: [facility], [address] [place] [id number] CLIA ID: [id number] POCT GLUCOSE METER POCT GLUCOSE METER POCT GLUCOSE METER POCT GLUCOSE METER POCT GLUCOSE METER POCT GLUCOSE METER POCT GLUCOSE METER POCT GLUCOSE METER POCT GLUCOSE METER POCT GLUCOSE METER POCT GLUCOSE METER POCT GLUCOSE METER POCT GLUCOSE METER POCT GLUCOSE METER POCT GLUCOSE METER POCT GLUCOSE METER POCT GLUCOSE METER POCT GLUCOSE METER RADIOLOGY: No orders to display Medical decision making: The patient is placed in the CDU for further evaluation after initial ED workup. Independent review of ED workup: Initial [id number] BG was 60. Shows WBC of 3, hemoglobin 12.2, no significant acute abnormalities. CMP shows normal electrolytes and kidney function, BG was low at 56, ALP 139 otherwise normal LFTs. COVID flu RSV swab negative. Latest POC BG at 0638 this morning is 78. External records reviewed: Patient seen here at [facility] ED 02/13/2023 for near syncope, at that time her BG was 198, she was ultimately discharged. Office [facility] 02[facility]16/2023 [facility], per notes she had just restarted her insulin which her provider expected to help and there were no adjustments made to her regimen at that time. Historically on metformin 1000 mg twice daily, Humulin R U-500 160 units at breakfast 30 units at lunch 120 units at dinner. Social determinants of care: Financial constraints/insurance issues affording medication -consulted social work EKG Interpretation: N/a Clinical Impression / Assessment / Plan 1. IDDM2 with episodic hypoglycemia, acute -Poor compliance to medication regimen due to financial constraints, just restarted her U-500, experiencing lows with this. We will consult endocrinology to optimize her regimen. 2. Hypertension, chronic -BP stable here in the 130/70 range, continue home regimen. 3. Thrombocytopenia, chronic -Platelets 74 yesterday, 6 days ago 64, 2 months ago 66, appears per family practice notes this is being worked up outpatient with peripheral smear and referral to hematology. 4. Obesity -Encourage weight loss and lifestyle mods DVT prophylaxis: low risk via USACS VTE ppx CMT, encourage ambulation Due to the review of above complex data and the acute illness and/or undiagnosed new problem which may pose significant morbidity, The complexity of this case is: Mau Bates PA-C CDU Advanced Practice Provider [facility] (Comment: Please note this report has been produced using speech recognition software and may contain errors related to that system including errors in grammar, punctuation, and spelling, as well as words and phrases that may be inappropriate. If there are any questions or concerns please feel free to contact the dictating provider for clarification.) documented in this encounter [facility] 02-19-2023 Emergency department Note Report called to Cristin Lambert RN in CDU Isabel Parson RN 02/19/23930 [facility] 02-19-2023 Emergency department Note Report called to Cristin Lambert RN in CDU Isabel Parson RN 02/19/23930 EMERGENCY DEPARTMENT ENCOUNTER Pt Name: Melanie Carey Birthdate 1965 Date of evaluation: 02/18/2023 ED Provider: Mariana Snow MD CHIEF COMPLAINT Chief Complaint Patient presents with Hypoglycemia HISTORY OF PRESENT ILLNESS (Location/Symptom, Timing/Onset, Context/Setting, Quality, Duration, Modifying Factors, Severity) Note limiting factors. HPI Melanie Carey is a 57 y.o. female who presents to the emergency department today for hypoglycemia. Patient states that this morning she woke up and she was feeling generally unwell. She took her blood glucose and is at 48. She states that she ate some breakfast and her glucose slowly came up to the 80s and that has continued to drop throughout the day. She has been eating and her glucose was up to the 80s again and that has just continued to drop. She states that she gets really diaphoretic and feels unfocused when she is hypoglycemic. She states that she is never had it last this long before. She does take Humulin and metformin but states that she has not taken any doses today. She was feeling fine last night. She denies any fevers or chills. No urinary complaints. No abdominal pain, nausea, vomiting, or diarrhea. She reports that she was recently in the emergency department 5 days ago For dizziness and had labs drawn at that time that showed that her white blood cell count and platelet count was low and she follow-up with her PCP who ordered repeat labs over the next few days. Nursing Notes were reviewed. REVIEW OF SYSTEMS Review of Systems Constitutional: Positive for chills, diaphoresis and fatigue. Negative for appetite change and fever. Respiratory: Negative. Cardiovascular: Negative. Gastrointestinal: Negative. Genitourinary: Negative. PAST MEDICAL HISTORY Past Medical History: Diagnosis Date Anxiety Arthritis Chest pain Depression Diabetic nephropathy (CMS/HCC) (HCC) Elevated transaminase level Fatigue GERD (gastroesophageal reflux disease) Headache(784.0) Hemorrhoids Hyperlipidemia Hypertension Low back pain Neuropathic pain Obesity DONNA (obstructive sleep apnea) Rectal bleed Right leg weakness Trochanteric bursitis of left hip Bilateral Type II or unspecified type diabetes mellitus without mention of complication, not stated as uncontrolled (HCC) Uncontrolled type 2 diabetes mellitus with complication 02/19/2015 SURGICAL HISTORY Past Surgical History: Procedure Laterality Date CARDIAC CATHETERIZATION 06/03/2018 CARPAL TUNNEL RELEASE CHOLECYSTECTOMY COLONOSCOPY 2011 ENDOMETRIAL ABLATION HERNIA REPAIR TONSILLECTOMY AND ADENOIDECTOMY (HISTORICAL) CURRENT MEDICATIONS Discharge Medication List as of 02/20/2023 5:58 PM CONTINUE these medications which have NOT CHANGED Details aspirin 81 MG EC tablet Take 81 mg by mouth daily., Historical Med buPROPion XL (Wellbutrin XL) 300 MG 24 hr tablet Take 300 mg by mouth daily. Do not crush, chew, or split., Historical Med busPIRone (Buspar) 10 MG tablet Take 10 mg by mouth 2 times daily., Historical Med hydrOXYzine HCl (Atarax) 25 MG tablet Take 25 mg by mouth every 8 hours as needed., Starting Wed09/07/2022, Historical Med labetalol (Normodyne) 100 MG tablet Take 100 mg by mouth in the morning and 100 mg in the evening., Historical Med metFORMIN (Glucophage) 1000 MG tablet Take 1,000 mg by mouth in the morning and 1,000 mg in the evening., Starting Wed11/03/2022, Historical Med Unifine Pentips 31G X 8 MM misc Historical Med ALLERGIES Cat hair extract, Lisinopril, and Pollen extract FAMILY HISTORY Family History Problem Relation Name Age of Onset Diabetes Mother Heart disease Father Cancer Father prostate High Blood Pressure Father Other ([id number]) Sister TBI Depression Mother Substance Abuse Brother Heart disease Mother Other ([id number]) Mother Depression Brother SOCIAL HISTORY Social History Socioeconomic History Marital status: Tobacco Use Smoking status: Former Packs/day: 2.00 Types: Cigarettes Quit date: 09/01/2013 Years since quittin.4 Smokeless tobacco: Never Substance and Sexual Activity Alcohol use: Not Currently Alcohol/week: 0.0 standard drinks of alcohol Drug use: No Social Determinants of Health Financial Resource Strain: High Risk (12/30/2022) Overall Financial Resource Strain (CARDIA) Difficulty of Paying Living Expenses: Very hard Food Insecurity: No Food Insecurity (02/11/2023) Hunger Vital Sign Worried About Running Out of Food in the Last Year: Never true Ran Out of Food in the Last Year: Never true Transportation Needs: No Transportation Needs (12/30/2022) PRAPARE - Transportation Lack of Transportation (Medical): No Lack of Transportation (Non-Medical): No Physical Activity: Inactive (02/11/2023) Exercise Vital Sign Days of Exercise per Week: 0 days Minutes of Exercise per Session: 0 min Housing Stability: Low Risk (02/11/2023) Housing Stability Vital Sign Unable to Pay for Housing in the Last Year: No Number of Places Lived in the Last Year: 2 Unstable Housing in the Last Year: No SCREENINGS Widener Coma Scale Best Eye Response: Spontaneous Best Verbal Response: Oriented Best Motor Response: Follows commands Widener Coma Scale Score: 15 PHYSICAL EXAM ED Triage Vitals Temp Heart Rate Resp BP 02/18/23 1821 02/18/23 1821 02/18/23 1821 02/18/23 1821 36.2 C (97.1 F) 68 20 (!) 165/92 SpO2 Temp Source Heart Rate Source Patient Position 02/18/23 1821 02/18/23 1821 02/18/23 1821 02/19/23 0216 97 % Oral Monitor Lying BP Location FiO2 (%) 02/19/23 0216 -- Left arm Physical Exam Tired appearing female resting comfortably. As she talks she seems to have some difficulty with focusing. She is mildly diaphoretic. Her lungs are clear to auscultation bilaterally. She is 2+ radial pulses bilaterally. Her abdomen is soft and nontender. She has no rashes. DIAGNOSTIC RESULTS RADIOLOGY (Per Emergency Physician): Interpretation per the Radiologist below, if available at the time of this note: No orders to display LABS: Labs Reviewed CBC WITH AUTO DIFFERENTIAL - Abnormal Result Value Auto WBC 3.0 (*) RBC 4.52 Hemoglobin 12.2 Hematocrit 38.4 MCV 85.0 MCH 27.1 MCHC 31.8 (*) RDW 16.5 (*) Platelets 74 (*) MPV 8.2 nRBC 0.1 Neutrophils Relative 71.6 Lymphocytes Relative 20.0 Monocytes Relative 8.3 Eosinophils Relative 0.0 (*) Basophils Relative 0.1 Neutrophils Absolute 2.2 Lymphocytes Absolute 0.6 (*) Monocytes Absolute 0.3 Eosinophils Absolute 0.0 Basophils Absolute 0.0 COMPREHENSIVE METABOLIC PANEL - Abnormal SODIUM 140 POTASSIUM 3.7 CHLORIDE 104 CARBON DIOXIDE 29 ANION GAP 7 UREA NITROGEN 17 CREATININE 0.91 GLUCOSE 56 (*) CALCIUM 9.1 AST (SGOT) 41 ALT 20 ALKALINE PHOSPHATASE 139 (*) ALBUMIN 3.8 BILIRUBIN, TOTAL 0.7 TOTAL PROTEIN 7.4 eGFR 74.7 COMPLETE URINALYSIS - Abnormal Color, Urine Yellow Clarity, Urine Clear pH, Urine 5.5 Leukocytes, Urine Negative Nitrite, Urine Negative Protein, Urine 30 (*) Glucose, Urine Normal Bilirubin, Urine Negative Ketones, Urine Negative Urobilinogen, Urine Normal Blood, Urine Negative RBC, Urine 0-2 WBC, Urine 0-2 Squamous Epithelial, Urine 11-25 (*) Bacteria, Urine Few (*) Mucus, Urine Few Hyaline Casts, Urine 0-2 (*) SPECIFIC GRAVITY OF URINE (NUMERIC) 1.019 POCT GLUCOSE METER UNSOLICITED RESULTS - Abnormal Glucose 60 (*) Narrative: Performed by: [facility], [address] [place] [address] CLIA ID: [id number] POCT GLUCOSE METER UNSOLICITED RESULTS - Abnormal Glucose 62 (*) Narrative: Performed by: [facility], [address] [place] [address], [facility] [address] CLIA ID: [id number] POCT GLUCOSE METER UNSOLICITED RESULTS - Abnormal Glucose 122 (*) Narrative: Performed by: [facility], [address] [place] [address], [facility] [address] CLIA ID: [id number] POCT GLUCOSE METER UNSOLICITED RESULTS - Abnormal Glucose 231 (*) Narrative: Performed by: [facility], [address] [place] [address] CLIA ID: [id number] POCT GLUCOSE METER UNSOLICITED RESULTS - Abnormal Glucose 153 (*) Narrative: Performed by: [facility], [address] [place] [address], [facility] [address] CLIA ID: [id number] POCT GLUCOSE METER UNSOLICITED RESULTS - Abnormal Glucose 159 (*) Narrative: Performed by: [facility], [address] [place] [address] CLIA ID: [id number] POCT GLUCOSE METER UNSOLICITED RESULTS - Abnormal Glucose 149 (*) Narrative: Performed by: [facility], [address] [place] [address], [facility] [address] CLIA ID: [id number] POCT GLUCOSE METER UNSOLICITED RESULTS - Abnormal Glucose 170 (*) Narrative: Performed by: [facility], [address] [place] [address] CLIA ID: [id number] POCT GLUCOSE METER UNSOLICITED RESULTS - Abnormal Glucose 152 (*) Narrative: Performed by: [facility], [address] [place] [address] CLIA ID: [id number] SARS-COV-2, FLU A/B, AND RSV COMBO - Normal SARS-CoV-2 Not Detected Respiratory Syncytial Virus Not Detected Influenza A Not Detected Influenza B Not Detected Narrative: Methodology: real-time, RT-PCR The SARS-CoV-2, Flu A/B, and RSV Combo assay is intended for in vitro diagnostic use under the FDA Emergency Use Authorization (EUA). This test has not been FDA cleared or approved. In compliance with this authorization, please visit www.fda.gov/media/971768/download or www.fda.gov/media/757333/download to access the applicable information sheets. POCT GLUCOSE METER UNSOLICITED RESULTS - Normal Glucose 82 Narrative: Performed by: [facility], [address] [place] [address] CLIA ID: [id number] POCT GLUCOSE METER UNSOLICITED RESULTS - Normal Glucose 85 Narrative: Performed by: [facility], [address] [place] [address] CLIA ID: [id number] POCT GLUCOSE METER UNSOLICITED RESULTS - Normal Glucose 82 Narrative: Performed by: [facility], [address] [place] [address] CLIA ID: [id number] POCT GLUCOSE METER UNSOLICITED RESULTS - Normal Glucose 78 Narrative: Performed by: [facility], [address] [place] [address] CLIA ID: [id number] POCT GLUCOSE METER POCT GLUCOSE METER POCT GLUCOSE METER POCT GLUCOSE METER POCT GLUCOSE METER POCT GLUCOSE METER POCT GLUCOSE METER POCT GLUCOSE METER POCT GLUCOSE METER POCT GLUCOSE METER POCT GLUCOSE METER POCT GLUCOSE METER POCT GLUCOSE METER POCT GLUCOSE METER POCT GLUCOSE METER POCT GLUCOSE METER POCT GLUCOSE METER POCT GLUCOSE METER POCT GLUCOSE METER POCT GLUCOSE METER POCT GLUCOSE METER POCT GLUCOSE METER POCT GLUCOSE METER POCT GLUCOSE METER POCT GLUCOSE METER POCT GLUCOSE METER POCT GLUCOSE METER POCT GLUCOSE METER POCT GLUCOSE METER POCT GLUCOSE METER POCT GLUCOSE METER POCT GLUCOSE METER POCT GLUCOSE METER POCT GLUCOSE METER POCT GLUCOSE METER POCT GLUCOSE METER POCT GLUCOSE METER POCT GLUCOSE METER POCT GLUCOSE METER POCT GLUCOSE METER POCT GLUCOSE METER POCT GLUCOSE METER All other labs were within normal range or not returned as of this dictation. EMERGENCY DEPARTMENT COURSE and DIFFERENTIAL DIAGNOSIS/MDM: Vitals: Vitals: 02/19/23 1931 02/19/23 2233 02/20/23 0755 02/20/23 0758 BP: 137/75 137/75 132/85 132/85 BP Location: Left arm Left arm Patient Position: Sitting Lying Pulse: 72 72 67 Resp: 18 20 Temp: 37.2 C (98.9 F) 36.6 C (97.8 F) TempSrc: Temporal Temporal SpO2: 95% 93% Medications sodium chloride 0.9% (NS) flush 5-40 mL (10 mL IntraVENous Given 02/20/23 0950) sodium chloride 0.9% (NS) flush 5-40 mL (has no administration in time range) sodium chloride 0.9 % infusion (has no administration in time range) acetaminophen (Tylenol) suppository 650 mg (has no administration in time range) ondansetron ODT (Zofran-ODT) disintegrating tablet 4 mg (has no administration in time range) Or ondansetron (Zofran) injection 4 mg (has no administration in time range) polyethylene glycol (PEG) 3350 (Miralax) packet 17 g (has no administration in time range) albuterol 108 (90 Base) MCG/ACT inhaler 2 puff (has no administration in time range) buPROPion XL (Wellbutrin XL) 24 hr tablet 300 mg (300 mg Oral Given 02/20/23 0755) busPIRone (Buspar) tablet 10 mg (10 mg Oral Given 02/20/23 0755) hydrOXYzine pamoate (Vistaril) capsule 25 mg (has no administration in time range) labetalol (Normodyne) tablet 100 mg (100 mg Oral Given 02/20/23 0755) dextrose 10 % infusion (has no administration in time range) glucose oral gel 15 g (has no administration in time range) dextrose 50 % solution 12.5 g (has no administration in time range) glucagon (human recombinant) injection 1 mg (has no administration in time range) dextrose 5 % infusion (has no administration in time range) insulin glargine (Lantus) injection 15 Units (15 Units SubCUTAneous Given 02/20/23 0900) Insulin Lispro (Humalog) injection 5 Units (5 Units SubCUTAneous Not Given 02/20/23 1700) Insulin Lispro (Humalog) injection 0-6 Units ( SubCUTAneous Not Given 02/20/23 1700) dextrose 5 % and sodium chloride 0.9 % infusion (0 mL/hr IntraVENous Stopped 02/18/232235) aspirin chewable tablet 81 mg (81 mg Oral Given 02/18/232207) dextrose 5 % and sodium chloride 0.9 % infusion (75 mL/hr IntraVENous New Bag 02/18/232235) acetaminophen (Tylenol) tablet 1,000 mg (1,000 mg Oral Given 02/19/232021) Medical Decision Making Problems Addressed: Hypoglycemia: complicated acute illness or injury Amount and/or Complexity of Data Reviewed Labs: ordered. Risk OTC drugs. Prescription drug management. 57-year-old female to the emergency department today for hypoglycemia. Afebrile and hemodynamically stable on arrival. States that since this morning's been having significantly difficult trolling her. She woke up feeling unwell and was diaphoretic. She took her glucose in 48. She drank some orange juice and had some glucose tabs and it went up to about 120 and then about an hour later her glucose dropped again to 40s. She states that she had a meatball so after that and again her glucose went up to about 80 but then she started to feel sick again and her glucose had dropped. Given this she presented to the emergency department. On my exam she does appear tired and having dizzy with focus. She has no neurologic deficits. No obvious infectious sources. She does take Humulin and metformin but other than 2 medications in the others that would cause significant hypoglycemia. She also that she has not taken either of these today. [id number] glucose was done here in the emergency department and the found to be 57. Tolerating p.o. intake so we did encourage her to drink some orange juice and gave her a sandwich for some cards. Again her sugar just continued to drop even after intervention. I did do an infectious work-up in the emergency department to see if there was any significant cause for her symptoms but my interpretation of her labs really is not any obvious findings. I am not entirely with causing her hypoglycemia but I did place her on a D5 infusion admitted her for further management her care. She was agreeable to this plan and stable condition. I Mariana Snow MD am the desulfurizer machine of record. FINAL IMPRESSION 1. Hypoglycemia DISPOSITION Observation 02/19/2023 08:21:38 AM PATIENT [facility]FERRED TO: [facility] [address] [facility] [id number] Schedule an appointment as soon as possible for a visit in 1 week(s) Hospital follow up - hypoglycemia Al Pemberton MD [address] [place] [address] Schedule an appointment as soon as possible for a visit Please call to set up new patient appointment within the next 2 weeks [facility] [address] [place] [address] Follow up As needed, If symptoms worsen DISCHARGE MEDICATIONS: Discharge Medication List as of 02/20/2023 5:58 PM (Comment: Please note this report has been produced using speech recognition software and may contain errors related to that system including errors in grammar, punctuation, and spelling, as well as words and phrases that may be inappropriate. If there are any questions or concerns please feel free to contact the dictating provider for clarification.) Mariana Snow MD (electronically signed) Emergency Medicine Provider Mariana Snow MD 02/20/232019 Pt states her blood sugar has been dropping throughout the day. 48 was the lowest. States she is unsure if she took her insulin or not Bed: 06 Expected date: Expected time: Means of arrival: Comments: Main 1 Milka Avina RN 02/19/23149 documented in this encounter [facility] 02-18-2023 Emergency department Note Bed: 06 Expected date: Expected time: Means of arrival: Comments: Main 1 Milka Avina RN 02/19/23149 [facility] 02-18-2023 Emergency department Triage note Pt states her blood sugar has been dropping throughout the day. 48 was the lowest. States she is unsure if she took her insulin or not [facility] 02-18-2023 Physician Emergency department Note EMERGENCY DEPARTMENT ENCOUNTER Pt Name: Melanie Carey Birthdate 1965 Date of evaluation: 02/18/2023 ED Provider: Mariana Snow MD CHIEF COMPLAINT Chief Complaint Patient presents with Hypoglycemia HISTORY OF PRESENT ILLNESS (Location/Symptom, Timing/Onset, Context/Setting, Quality, Duration, Modifying Factors, Severity) Note limiting factors. HPI Melanie Carey is a 57 y.o. female who presents to the emergency department today for hypoglycemia. Patient states that this morning she woke up and she was feeling generally unwell. She took her blood glucose and is at 48. She states that she ate some breakfast and her glucose slowly came up to the 80s and that has continued to drop throughout the day. She has been eating and her glucose was up to the 80s again and that has just continued to drop. She states that she gets really diaphoretic and feels unfocused when she is hypoglycemic. She states that she is never had it last this long before. She does take Humulin and metformin but states that she has not taken any doses today. She was feeling fine last night. She denies any fevers or chills. No urinary complaints. No abdominal pain, nausea, vomiting, or diarrhea. She reports that she was recently in the emergency department 5 days ago For dizziness and had labs drawn at that time that showed that her white blood cell count and platelet count was low and she follow-up with her PCP who ordered repeat labs over the next few days. Nursing Notes were reviewed. REVIEW OF SYSTEMS Review of Systems Constitutional: Positive for chills, diaphoresis and fatigue. Negative for appetite change and fever. Respiratory: Negative. Cardiovascular: Negative. Gastrointestinal: Negative. Genitourinary: Negative. PAST MEDICAL HISTORY Past Medical History: Diagnosis Date Anxiety Arthritis Chest pain Depression Diabetic nephropathy (CMS/HCC) (HCC) Elevated transaminase level Fatigue GERD (gastroesophageal reflux disease) Headache(784.0) Hemorrhoids Hyperlipidemia Hypertension Low back pain Neuropathic pain Obesity DONNA (obstructive sleep apnea) Rectal bleed Right leg weakness Trochanteric bursitis of left hip Bilateral Type II or unspecified type diabetes mellitus without mention of complication, not stated as uncontrolled (HCC) Uncontrolled type 2 diabetes mellitus with complication 02/19/2015 SURGICAL HISTORY Past Surgical History: Procedure Laterality Date CARDIAC CATHETERIZATION 06/03/2018 CARPAL TUNNEL RELEASE CHOLECYSTECTOMY COLONOSCOPY 2012 ENDOMETRIAL ABLATION HERNIA REPAIR TONSILLECTOMY AND ADENOIDECTOMY (HISTORICAL) CURRENT MEDICATIONS Discharge Medication List as of 02/20/2023 5:58 PM CONTINUE these medications which have NOT CHANGED Details aspirin 81 MG EC tablet Take 81 mg by mouth daily., Historical Med buPROPion XL (Wellbutrin XL) 300 MG 24 hr tablet Take 300 mg by mouth daily. Do not crush, chew, or split., Historical Med busPIRone (Buspar) 10 MG tablet Take 10 mg by mouth 2 times daily., Historical Med hydrOXYzine HCl (Atarax) 25 MG tablet Take 25 mg by mouth every 8 hours as needed., Starting Wed09/07/2022, Historical Med labetalol (Normodyne) 100 MG tablet Take 100 mg by mouth in the morning and 100 mg in the evening., Historical Med metFORMIN (Glucophage) 1000 MG tablet Take 1,000 mg by mouth in the morning and 1,000 mg in the evening., Starting Wed11/03/2022, Historical Med Unifine Pentips 31G X 8 MM misc Historical Med ALLERGIES Cat hair extract, Lisinopril, and Pollen extract FAMILY HISTORY Family History Problem Relation Name Age of Onset Diabetes Mother Heart disease Father Cancer Father prostate High Blood Pressure Father Other (49427) Sister TBI Depression Mother Substance Abuse Brother Heart disease Mother Other ([id number]) Mother Depression Brother SOCIAL HISTORY Social History Socioeconomic History Marital status: Tobacco Use Smoking status: Former Packs/day: 2.00 Types: Cigarettes Quit date: 09/01/2013 Years since quittin.4 Smokeless tobacco: Never Substance and Sexual Activity Alcohol use: Not Currently Alcohol/week: 0.0 standard drinks of alcohol Drug use: No Social Determinants of Health Financial Resource Strain: High Risk (12/30/2022) Overall Financial Resource Strain (CARDIA) Difficulty of Paying Living Expenses: Very hard Food Insecurity: No Food Insecurity (02/11/2023) Hunger Vital Sign Worried About Running Out of Food in the Last Year: Never true Ran Out of Food in the Last Year: Never true Transportation Needs: No Transportation Needs (12/30/2022) PRAPARE - Transportation Lack of Transportation (Medical): No Lack of Transportation (Non-Medical): No Physical Activity: Inactive (02/11/2023) Exercise Vital Sign Days of Exercise per Week: 0 days Minutes of Exercise per Session: 0 min Housing Stability: Low Risk (02/11/2023) Housing Stability Vital Sign Unable to Pay for Housing in the Last Year: No Number of Places Lived in the Last Year: 2 Unstable Housing in the Last Year: No SCREENINGS Sundeep Coma Scale Best Eye Response: Spontaneous Best Verbal Response: Oriented Best Motor Response: Follows commands Widener Coma Scale Score: 15 PHYSICAL EXAM ED Triage Vitals Temp Heart Rate Resp BP 02/18/231 02/18/23182002/18/23182002/18/231820 36.2 C (97.1 F) 68 20 (!) 165/92 SpO2 Temp Source Heart Rate Source Patient Position 02/18/23182002/18/23182002/18/23182002/19/23 0216 97 % Oral Monitor Lying BP Location FiO2 (%) 02/19/23 0216 -- Left arm Physical Exam Tired appearing female resting comfortably. As she talks she seems to have some difficulty with focusing. She is mildly diaphoretic. Her lungs are clear to auscultation bilaterally. She is 2+ radial pulses bilaterally. Her abdomen is soft and nontender. She has no rashes. DIAGNOSTIC RESULTS RADIOLOGY (Per Emergency Physician): Interpretation per the Radiologist below, if available at the time of this note: No orders to display LABS: Labs Reviewed CBC WITH AUTO DIFFERENTIAL - Abnormal Result Value Auto WBC 3.0 (*) RBC 4.52 Hemoglobin 12.2 Hematocrit 38.4 MCV 85.0 MCH 27.1 MCHC 31.8 (*) RDW 16.5 (*) Platelets 74 (*) MPV 8.2 nRBC 0.1 Neutrophils Relative 71.6 Lymphocytes Relative 20.0 Monocytes Relative 8.3 Eosinophils Relative 0.0 (*) Basophils Relative 0.1 Neutrophils Absolute 2.2 Lymphocytes Absolute 0.6 (*) Monocytes Absolute 0.3 Eosinophils Absolute 0.0 Basophils Absolute 0.0 COMPREHENSIVE METABOLIC PANEL - Abnormal SODIUM 140 POTASSIUM 3.7 CHLORIDE 104 CARBON DIOXIDE 29 ANION GAP 7 UREA NITROGEN 17 CREATININE 0.91 GLUCOSE 56 (*) CALCIUM 9.1 AST (SGOT) 41 ALT 20 ALKALINE PHOSPHATASE 139 (*) ALBUMIN 3.8 BILIRUBIN, TOTAL 0.7 TOTAL PROTEIN 7.4 eGFR 74.7 COMPLETE URINALYSIS - Abnormal Color, Urine Yellow Clarity, Urine Clear pH, Urine 5.5 Leukocytes, Urine Negative Nitrite, Urine Negative Protein, Urine 30 (*) Glucose, Urine Normal Bilirubin, Urine Negative Ketones, Urine Negative Urobilinogen, Urine Normal Blood, Urine Negative RBC, Urine 0-2 WBC, Urine 0-2 Squamous Epithelial, Urine 11-25 (*) Bacteria, Urine Few (*) Mucus, Urine Few Hyaline Casts, Urine 0-2 (*) SPECIFIC GRAVITY OF URINE (NUMERIC) 1.019 POCT GLUCOSE METER UNSOLICITED RESULTS - Abnormal Glucose 60 (*) Narrative: Performed by: [facility], [address] [place] [address] CLIA ID: [id number] POCT GLUCOSE METER UNSOLICITED RESULTS - Abnormal Glucose 62 (*) Narrative: Performed by: [facility], [address] [place] [address] CLIA ID: [id number] POCT GLUCOSE METER UNSOLICITED RESULTS - Abnormal Glucose 122 (*) Narrative: Performed by: [facility], [address] [place] [address] CLIA ID: [id number] POCT GLUCOSE METER UNSOLICITED RESULTS - Abnormal Glucose 231 (*) Narrative: Performed by: [facility], [address] [place] [address] CLIA ID: [id number] POCT GLUCOSE METER UNSOLICITED RESULTS - Abnormal Glucose 153 (*) Narrative: Performed by: [facility], [address] [place] [address] CLIA ID: [id number] POCT GLUCOSE METER UNSOLICITED RESULTS - Abnormal Glucose 159 (*) Narrative: Performed by: [facility], [address] [place] [address] CLIA ID: [id number] POCT GLUCOSE METER UNSOLICITED RESULTS - Abnormal Glucose 149 (*) Narrative: Performed by: [facility], [address] [place] [address] CLIA ID: [id number] POCT GLUCOSE METER UNSOLICITED RESULTS - Abnormal Glucose 170 (*) Narrative: Performed by: [facility], [address] [place] [address] CLIA ID: [id number] POCT GLUCOSE METER UNSOLICITED RESULTS - Abnormal Glucose 152 (*) Narrative: Performed by: [facility], [address] [place] [address] CLIA ID: [id number] SARS-COV-2, FLU A/B, AND RSV COMBO - Normal SARS-CoV-2 Not Detected Respiratory Syncytial Virus Not Detected Influenza A Not Detected Influenza B Not Detected Narrative: Methodology: real-time, RT-PCR The SARS-CoV-2, Flu A/B, and RSV Combo assay is intended for in vitro diagnostic use under the FDA Emergency Use Authorization (EUA). This test has not been FDA cleared or approved. In compliance with this authorization, please visit www.fda.gov/media/640615/download or www.fda.gov/media/935149/download to access the applicable information sheets. POCT GLUCOSE METER UNSOLICITED RESULTS - Normal Glucose 82 Narrative: Performed by: [facility], [address] [place] [address] CLIA ID: [id number] POCT GLUCOSE METER UNSOLICITED RESULTS - Normal Glucose 85 Narrative: Performed by: [facility], [address] [place] [address] CLIA ID: [id number] POCT GLUCOSE METER UNSOLICITED RESULTS - Normal Glucose 82 Narrative: Performed by: [facility], [address] [place] [address] CLIA ID: [id number] POCT GLUCOSE METER UNSOLICITED RESULTS - Normal Glucose 78 Narrative: Performed by: [facility], [address] [place] [address] CLIA ID: [id number] POCT GLUCOSE METER POCT GLUCOSE METER POCT GLUCOSE METER POCT GLUCOSE METER POCT GLUCOSE METER POCT GLUCOSE METER POCT GLUCOSE METER POCT GLUCOSE METER POCT GLUCOSE METER POCT GLUCOSE METER POCT GLUCOSE METER POCT GLUCOSE METER POCT GLUCOSE METER POCT GLUCOSE METER POCT GLUCOSE METER POCT GLUCOSE METER POCT GLUCOSE METER POCT GLUCOSE METER POCT GLUCOSE METER POCT GLUCOSE METER POCT GLUCOSE METER POCT GLUCOSE METER POCT GLUCOSE METER POCT GLUCOSE METER POCT GLUCOSE METER POCT GLUCOSE METER POCT GLUCOSE METER POCT GLUCOSE METER POCT GLUCOSE METER POCT GLUCOSE METER POCT GLUCOSE METER POCT GLUCOSE METER POCT GLUCOSE METER POCT GLUCOSE METER POCT GLUCOSE METER POCT GLUCOSE METER POCT GLUCOSE METER POCT GLUCOSE METER POCT GLUCOSE METER POCT GLUCOSE METER POCT GLUCOSE METER POCT GLUCOSE METER All other labs were within normal range or not returned as of this dictation. EMERGENCY DEPARTMENT COURSE and DIFFERENTIAL DIAGNOSIS/MDM: Vitals: Vitals: 02/19/23 1931 02/19/23 2233 02/20/23 0755 02/20/23 0758 BP: 137/75 137/75 132/85 132/85 BP Location: Left arm Left arm Patient Position: Sitting Lying Pulse: 72 72 67 Resp: 18 20 Temp: 37.2 C (98.9 F) 36.6 C (97.8 F) TempSrc: Temporal Temporal SpO2: 95% 93% Medications sodium chloride 0.9% (NS) flush 5-40 mL (10 mL IntraVENous Given 02/20/23 0950) sodium chloride 0.9% (NS) flush 5-40 mL (has no administration in time range) sodium chloride 0.9 % infusion (has no administration in time range) acetaminophen (Tylenol) suppository 650 mg (has no administration in time range) ondansetron ODT (Zofran-ODT) disintegrating tablet 4 mg (has no administration in time range) Or ondansetron (Zofran) injection 4 mg (has no administration in time range) polyethylene glycol (PEG) 3350 (Miralax) packet 17 g (has no administration in time range) albuterol 108 (90 Base) MCG/ACT inhaler 2 puff (has no administration in time range) buPROPion XL (Wellbutrin XL) 24 hr tablet 300 mg (300 mg Oral Given 02/20/23 540) busPIRone (Buspar) tablet 10 mg (10 mg Oral Given 02/20/23754) hydrOXYzine pamoate (Vistaril) capsule 25 mg (has no administration in time range) labetalol (Normodyne) tablet 100 mg (100 mg Oral Given 02/20/23754) dextrose 10 % infusion (has no administration in time range) glucose oral gel 15 g (has no administration in time range) dextrose 50 % solution 12.5 g (has no administration in time range) glucagon (human recombinant) injection 1 mg (has no administration in time range) dextrose 5 % infusion (has no administration in time range) insulin glargine (Lantus) injection 15 Units (15 Units SubCUTAneous Given 02/20/23 0900) Insulin Lispro (Humalog) injection 5 Units (5 Units SubCUTAneous Not Given 02/20/23 1700) Insulin Lispro (Humalog) injection 0-6 Units ( SubCUTAneous Not Given 02/20/23 1700) dextrose 5 % and sodium chloride 0.9 % infusion (0 mL/hr IntraVENous Stopped 02/18/232235) aspirin chewable tablet 81 mg (81 mg Oral Given 02/18/232207) dextrose 5 % and sodium chloride 0.9 % infusion (75 mL/hr IntraVENous New Bag 02/18/232235) acetaminophen (Tylenol) tablet 1,000 mg (1,000 mg Oral Given 02/19/232021) Medical Decision Making Problems Addressed: Hypoglycemia: complicated acute illness or injury Amount and/or Complexity of Data Reviewed Labs: ordered. Risk OTC drugs. Prescription drug management. 57-year-old female to the emergency department today for hypoglycemia. Afebrile and hemodynamically stable on arrival. States that since this morning's been having significantly difficult trolling her. She woke up feeling unwell and was diaphoretic. She took her glucose in 48. She drank some orange juice and had some glucose tabs and it went up to about 120 and then about an hour later her glucose dropped again to 40s. She states that she had a meatball so after that and again her glucose went up to about 80 but then she started to feel sick again and her glucose had dropped. Given this she presented to the emergency department. On my exam she does appear tired and having dizzy with focus. She has no neurologic deficits. No obvious infectious sources. She does take Humulin and metformin but other than 2 medications in the others that would cause significant hypoglycemia. She also that she has not taken either of these today. Kjtrv-ab-amjr glucose was done here in the emergency department and the found to be 57. Tolerating p.o. intake so we did encourage her to drink some orange juice and gave her a sandwich for some cards. Again her sugar just continued to drop even after intervention. I did do an infectious work-up in the emergency department to see if there was any significant cause for her symptoms but my interpretation of her labs really is not any obvious findings. I am not entirely with causing her hypoglycemia but I did place her on a D5 infusion admitted her for further management her care. She was agreeable to this plan and stable condition. I Mariana Snow MD am the desulfurizer machine of record. FINAL IMPRESSION 1. Hypoglycemia DISPOSITION Observation 02/19/2023 08:21:38 AM PATIENT REFERRED TO: See Ricketts MD [address] [facility], [address] [facility] [id number] Schedule an appointment as soon as possible for a visit in 1 week(s) Hospital follow up - hypoglycemia Al Pemberton MD [address] [facility] [address] [facility] [address] Schedule an appointment as soon as possible for a visit Please call to set up new patient appointment within the next 2 weeks [facility] [address] [facility] [id number] Follow up As needed, If symptoms worsen DISCHARGE MEDICATIONS: Discharge Medication List as of 02/20/2023 5:58 PM (Comment: Please note this report has been produced using speech recognition software and may contain errors related to that system including errors in grammar, punctuation, and spelling, as well as words and phrases that may be inappropriate. If there are any questions or concerns please feel free to contact the dictating provider for clarification.) Mariana Snow MD (electronically signed) Emergency Medicine Provider Mariana Snow MD 02/20/232019 [facility] 02-16-2023 Evaluation + Plan note Associated Problem(s): Lymphopenia Will repeat CBC with gela-smear next week. Refer to hematology also for further evaluation and treatment [facility] 02-16-2023 Miscellaneous Notes Associated Problem(s): Lymphopenia Will repeat CBC with gela-smear next week. Refer to hematology also for further evaluation and treatment Associated Problem(s): Thrombocytopenia (HCC) Will recheck platelets next week along with CBC peripheral smear. Refer to hematology Associated Problem(s): Type 2 diabetes mellitus with polyneuropathy (HCC) Currently poorly controlled, likely secondary to not having all of her diabetic medications due to financial constraints. Patient recently restarted her insulin which should help. Continue to monitor glucose at home we will have her send readings to us in 1 week Associated Problem(s): Essential hypertension Controlled. Continue labetalol 100 mg twice daily Associated Problem(s): Acute pain of left knee Improving slightly. Patient to follow-up with sports medicine for further evaluation and treatment. Imaging was unremarkable in ER documented in this encounter [facility] 02-16-2023 Evaluation + Plan note Associated Problem(s): Thrombocytopenia (HCC) Will recheck platelets next week along with CBC peripheral smear. Refer to hematology [facility] 02-16-2023 Evaluation + Plan note Associated Problem(s): Type 2 diabetes mellitus with polyneuropathy (HCC) Currently poorly controlled, likely secondary to not having all of her diabetic medications due to financial constraints. Patient recently restarted her insulin which should help. Continue to monitor glucose at home we will have her send readings to us in 1 week [facility] 02-16-2023 Evaluation + Plan note Associated Problem(s): Essential hypertension Controlled. Continue labetalol 100 mg twice daily [facility] 02-16-2023 Evaluation + Plan note Associated Problem(s): Acute pain of left knee Improving slightly. Patient to follow-up with sports medicine for further evaluation and treatment. Imaging was unremarkable in ER T [facility] 02-16-2023 History of Present illness Narrative Images from the original note were not included. 02/16/2023 Melanie Carey (: 1965) is a 57 y.o. female , Established patient, here for evaluation of the following chief complaint(s): Knee Pain (left), ER Follow-up, Dizziness, and Discuss Labs ASSESSMENT/PLAN: 1. Lymphopenia Assessment & Plan: Will repeat CBC with gela-smear next week. Refer to hematology also for further evaluation and treatment Orders: - CBC auto differential - Peripheral blood smear - [facility] Oncology 2. Thrombocytopenia (HCC) Assessment & Plan: Will recheck platelets next week along with CBC peripheral smear. Refer to hematology Orders: - CBC auto differential - [facility] Oncology 3. Type 2 diabetes mellitus with polyneuropathy (HCC) Assessment & Plan: Currently poorly controlled, likely secondary to not having all of her diabetic medications due to financial constraints. Patient recently restarted her insulin which should help. Continue to monitor glucose at home we will have her send readings to us in 1 week Orders: - Hemoglobin A1c 4. Acute pain of left knee Assessment & Plan: Improving slightly. Patient to follow-up with sports medicine for further evaluation and treatment. Imaging was unremarkable in ER 5. Essential hypertension Assessment & Plan: Controlled. Continue labetalol 100 mg twice daily Follow up in about 6 days (around 02/22/2023). SUBJECTIVE/OBJECTIVE: HPI - Melanie Carye (: 1965) is a 57 y.o. female , Established patient, here for the evaluation of the following chief complaint(s): Knee Pain (left), ER Follow-up, Dizziness, and Discuss Labs Patient presents for ER follow-up has been to the ER multiple times in the last month or so since we last saw her. DM- not taking jardiance- no insurance. Fasting glucose under 250 or under. Has been without her insulin, humulin r u500 with meals. Just restarted. Bp- takes labetolol -denies any shortness of breath chest pain or change in vision. ER 01/14/2023- fall- ok now had hurt the left shoulder and wrist. No longer swollen ER 02/04/23- abscess groin area- completed antibiotics- good now. 02/06/2023- left knee sprain- xray was negative/arthritis. Acetaminophen and ibuprofen. Tried wrapping. Voltaren topical helps some. Was referred to sports medicine. Has not heard from them yet to schedule. Platelets low- previously seen by hematology- was seeing In [place]. Does not know what the diagnosis was. Would like to see a different specialist within [facility]. Recent labs also showed leukopenia -lymphopenia which is new. Prior to Admission medications Medication Sig Start Date End Date Taking? Authorizing Provider albuterol 108 (90 Base) MCG/ACT inhaler Inhale 108 puffs every 6 hours as needed. 08/20/22 Yes Historical Provider, HumuLIN R U-500 KWIKPEN 500 UNIT/ML CONCENTRATED injection Inject under the skin 3 times daily (before meals). 160 units at breakfast, 30 units with lunch and 120 units with dinner 10/20/22 Yes Historical Provider, hydrOXYzine HCl (Atarax) 25 MG tablet Take 25 mg by mouth every 8 hours as needed. 09/07/22 Yes Historical Provider, labetalol (Normodyne) 100 MG tablet Take 100 mg by mouth in the morning and 100 mg in the evening. Yes Historical Provider, metFORMIN (Glucophage) 1000 MG tablet Take 1,000 mg by mouth in the morning and 1,000 mg in the evening. 11/03/22 Yes Historical Provider, MD Alfaro Pentips 31G X 8 MM misc 10/20/22 Yes Historical Provider, amoxicillin-clavulanate (Augmentin) 875-125 MG tablet Take 1 tablet by mouth in the morning and 1 tablet in the evening. Do all this for 10 days. 02/04/23 02/14/23 Jarvis Belcher MD aspirin 81 MG EC tablet Take 81 mg by mouth daily. Historical Provider, buPROPion XL (Wellbutrin XL) 300 MG 24 hr tablet Take 300 mg by mouth daily. Do not crush, chew, or split. Historical Provider, busPIRone (Buspar) 10 MG tablet Take 10 mg by mouth 2 times daily. Historical Provider, clotrimazole (Lotrimin) 1 % cream Apply 1 Application topically 2 times daily for 14 days. Apply to affected area 2 times daily Patient not taking: Reported on 02/16/2023 02/04/23 02/18/23 Jarvis Belcher MD empagliflozin (Jardiance) 25 MG Take 1 tablet (25 mg) by mouth daily. Patient not taking: Reported on 02/01/2023 12/09/22 Scar Seymour APRN - PATTERN CARRIER Review of Systems Constitutional: Negative for activity change, appetite change, chills, fatigue and fever. Respiratory: Negative for cough, chest tightness and shortness of breath. Cardiovascular: Negative for chest pain. Genitourinary: Negative for difficulty urinating. Musculoskeletal: Positive for arthralgias and joint swelling (Right knee). Neurological: Positive for dizziness and light-headedness. Occasional dizziness and lightheadedness usually when at work standing for long periods of time Vitals: 02/16/23 0825 BP: 128/60 Pulse: 82 Resp: 18 Temp: 36.1 C (96.9 F) TempSrc: Infrared SpO2: 95% Weight: 297 lb 3.2 oz (135 kg) Physical Exam Constitutional: General: She is not in acute distress. Appearance: Normal appearance. She is obese. She is not ill-appearing. HENT: Head: Normocephalic and atraumatic. Nose: No congestion or rhinorrhea. Mouth/Throat: Mouth: Mucous membranes are moist. Pharynx: Oropharynx is clear. Eyes: Conjunctiva/sclera: Conjunctivae normal. Cardiovascular: Rate and Rhythm: Normal rate and regular rhythm. Pulmonary: Effort: Pulmonary effort is normal. Breath sounds: Normal breath sounds. Musculoskeletal: Right knee: Swelling present. Decreased range of motion. Tenderness present over the medial joint line and patellar tendon. Skin: General: Skin is warm and dry. Neurological: Mental Status: She is alert and oriented to person, place, and time. An electronic signature was used to authenticate this note. NICOLE Easley CNP 02/16/2023 4:30 PM documented in this encounter [facility] 02-13-2023 Emergency department Note To XR @1999 Deisi Ladd RN 02/13/232004 [facility] 02-13-2023 Emergency department Note To XR @1999 Deisi Ladd RN 02/13/232004 EMERGENCY DEPARTMENT ENCOUNTER Pt Name: Raiza Carey Birthdate 1965 Date of evaluation: 02/13/2023 ED Provider: Nelson Grady MD CHIEF COMPLAINT Chief Complaint Patient presents with Dizziness Pt. Endorses dizziness beginning today. Denies associated CP/SOB. States hx of HTN but says her PCP took her off her BP medication in November 2022. Endorses HTN at home today, BP 159/89 in Triage. HISTORY OF PRESENT ILLNESS (Location/Symptom, Timing/Onset, Context/Setting, Quality, Duration, Modifying Factors, Severity) Note limiting factors. I wore appropriate PPE for the entirety of this encounter. HPI Raiza Carey is a 57 y.o. who presents to the emergency department with chief complaint of lightheadedness while at work today. Patient ports past medical history to include diabetes, hypertension-no longer on meds, obesity, ulcerative colitis. She states that over the last few days she has had some nausea and diarrhea, no vomiting. She is also been having a flareup of her multijoint arthritis. 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 While she was standing at the doorway she suddenly started to feel lightheaded like she was going to pass out. She states that she started to have some tunnel vision. She walked over to a bench and sat down and lowered her head. No loss of consciousness. She states that after sitting for a while the symptoms resolved. She stood up to go back to work and started to get lightheaded again. She sat back down and was dismissed from work to go home. Continues to feel mildly nauseous but currently denies any lightheadedness. Throughout the all of these events she denied any chest pain, shortness of breath. She states that she has had some exertional dyspnea along with feeling unwell over the last several days. She reports no change to her cough or sputum production from baseline. She does not wear supplemental oxygen at baseline and has not felt like she has needed it over the last several days. Patient states she checked her blood sugar when she got home and it was around 150. She also checked her blood pressure when she got home and it was 140/87. She states this tends to be a little high for her. Nursing Notes were reviewed. Limitations to history: None Outside historians: Spouse REVIEW OF SYSTEMS Review of Systems Constitutional: Positive for appetite change, chills and fatigue. Negative for fever and unexpected weight change. HENT: Negative. Respiratory: Positive for cough and shortness of breath. Cardiovascular: Negative. Gastrointestinal: Positive for diarrhea and nausea. Negative for vomiting. Genitourinary: Negative. Musculoskeletal: Negative. Skin: Negative. Neurological: Positive for light-headedness. Negative for tremors, seizures, facial asymmetry, speech difficulty and weakness. Near syncope. Psychiatric/Behavioral: Negative. Pertinent positives and negatives as per HPI. PAST MEDICAL HISTORY Past Medical History: Diagnosis Date Anxiety Arthritis Chest pain Depression Diabetic nephropathy (CMS/HCC) (HCC) Elevated transaminase level Fatigue GERD (gastroesophageal reflux disease) Headache(784.0) Hemorrhoids Hyperlipidemia Hypertension Low back pain Neuropathic pain Obesity DONNA (obstructive sleep apnea) Rectal bleed Right leg weakness Trochanteric bursitis of left hip Bilateral Type II or unspecified type diabetes mellitus without mention of complication, not stated as uncontrolled (HCC) Uncontrolled type 2 diabetes mellitus with complication 02/19/2015 SURGICAL HISTORY Past Surgical History: Procedure Laterality Date CARDIAC CATHETERIZATION 06/03/2018 CARPAL TUNNEL RELEASE CHOLECYSTECTOMY COLONOSCOPY 2011 ENDOMETRIAL ABLATION HERNIA REPAIR TONSILLECTOMY AND ADENOIDECTOMY (HISTORICAL) CURRENT MEDICATIONS Discharge Medication List as of 02/13/2023 9:26 PM CONTINUE these medications which have NOT CHANGED Details albuterol 108 (90 Base) MCG/ACT inhaler Inhale 108 puffs every 6 hours as needed., Starting Wed08/20/2022, Historical Med amoxicillin-clavulanate (Augmentin) 875-125 MG tablet Take 1 tablet by mouth in the morning and 1 tablet in the evening. Do all this for 10 days., Starting Wed02/04/2023, Until 02/14/2023, Normal aspirin 81 MG EC tablet Take 81 mg by mouth daily., Historical Med buPROPion XL (Wellbutrin XL) 300 MG 24 hr tablet Take 300 mg by mouth daily. Do not crush, chew, or split., Historical Med busPIRone (Buspar) 10 MG tablet Take 10 mg by mouth 2 times daily., Historical Med clotrimazole (Lotrimin) 1 % cream Apply 1 Application topically 2 times daily for 14 days. Apply to affected area 2 times daily, Starting Wed02/04/2023, Until Wed02/18/2023, Normal empagliflozin (Jardiance) 25 MG Take 1 tablet (25 mg) by mouth daily., Starting Wed12/09/2022, Normal HumuLIN R U-500 KWIKPEN 500 UNIT/ML CONCENTRATED injection Inject under the skin 3 times daily (before meals). 160 units at breakfast, 30 units with lunch and 120 units with dinner, Starting Wed10/20/2022, Historical Med hydrOXYzine HCl (Atarax) 25 MG tablet Take 25 mg by mouth every 8 hours as needed., Starting Wed09/07/2022, Historical Med labetalol (Normodyne) 100 MG tablet Take 100 mg by mouth in the morning and 100 mg in the evening., Historical Med metFORMIN (Glucophage) 1000 MG tablet Take 1,000 mg by mouth in the morning and 1,000 mg in the evening., Starting Wed11/03/2022, Historical Med Unifine Pentips 31G X 8 MM misc Historical Med ALLERGIES Cat hair extract, Lisinopril, and Pollen extract FAMILY HISTORY Family History Problem Relation Name Age of Onset Diabetes Mother Heart disease Father Cancer Father prostate High Blood Pressure Father Other (70191) Sister TBI Depression Mother Substance Abuse Brother Heart disease Mother Other ([id number]) Mother Depression Brother SOCIAL HISTORY Social History Socioeconomic History Marital status: Tobacco Use Smoking status: Former Packs/day: 2.00 Types: Cigarettes Quit date: 09/01/2013 Years since quittin.4 Smokeless tobacco: Never Substance and Sexual Activity Alcohol use: Not Currently Alcohol/week: 0.0 standard drinks of alcohol Drug use: No Social Determinants of Health Financial Resource Strain: High Risk (12/30/2022) Overall Financial Resource Strain (CARDIA) Difficulty of Paying Living Expenses: Very hard Food Insecurity: No Food Insecurity (02/11/2023) Hunger Vital Sign Worried About Running Out of Food in the Last Year: Never true Ran Out of Food in the Last Year: Never true Transportation Needs: No Transportation Needs (12/30/2022) PRAPARE - Transportation Lack of Transportation (Medical): No Lack of Transportation (Non-Medical): No Physical Activity: Inactive (02/11/2023) Exercise Vital Sign Days of Exercise per Week: 0 days Minutes of Exercise per Session: 0 min Housing Stability: Low Risk (02/11/2023) Housing Stability Vital Sign Unable to Pay for Housing in the Last Year: No Number of Places Lived in the Last Year: 2 Unstable Housing in the Last Year: No SCREENINGS Sundeep Coma Scale Best Eye Response: Spontaneous Best Verbal Response: Oriented Best Motor Response: Follows commands Sundeep Coma Scale Score: 15 PHYSICAL EXAM ED Triage Vitals [02/13/23 1905] Temp Heart Rate Resp BP 36 C (96.8 F) 80 18 (!) 159/89 SpO2 Temp Source Heart Rate Source Patient Position 97 % Temporal Monitor -- BP Location FiO2 (%) -- -- Physical Exam Vitals and nursing note reviewed. Constitutional: General: She is not in acute distress. Appearance: She is obese. She is not ill-appearing or diaphoretic. HENT: Head: Normocephalic. Nose: Nose normal. Eyes: General: No scleral icterus. Conjunctiva/sclera: Conjunctivae normal. Cardiovascular: Rate and Rhythm: Normal rate and regular rhythm. Pulses: Normal pulses. Heart sounds: Normal heart sounds. Pulmonary: Effort: Pulmonary effort is normal. No respiratory distress. Breath sounds: Normal breath sounds. Abdominal: General: There is no distension. Palpations: Abdomen is soft. Tenderness: There is no abdominal tenderness. There is no guarding. Musculoskeletal: General: No swelling or deformity. Cervical back: Normal range of motion and neck supple. Right lower leg: No edema. Left lower leg: No edema. Skin: General: Skin is warm and dry. Capillary Refill: Capillary refill takes less than 2 seconds. Neurological: General: No focal deficit present. Mental Status: She is alert and oriented to person, place, and time. Psychiatric: Mood and Affect: Mood normal. Behavior: Behavior normal. DIAGNOSTIC RESULTS Procedures/EKG: EKG was reviewed by myself. Physician EKG interpretation can be found in [facility] RADIOLOGY (Per Emergency Physician): Interpretation per the Radiologist below, if available at the time of this note: XR chest 1 view Final Result 1. No acute findings. Report Dictated on Electronically Signed By: John Beaver MD Electronically Signed Date/Time: 02/13/2023 8:07 PM EDT ED BEDSIDE ULTRASOUND: Performed by ED Physician - none LABS: Labs Reviewed CBC WITH AUTO DIFFERENTIAL - Abnormal Result Value Auto WBC 2.6 (*) RBC 4.23 Hemoglobin 11.5 (*) Hematocrit 35.4 MCV 83.6 MCH 27.3 MCHC 32.6 RDW 16.3 (*) Platelets 64 (*) MPV 8.3 nRBC 0.1 Neutrophils Relative 63.4 Lymphocytes Relative 27.0 Monocytes Relative 9.2 Eosinophils Relative 0.0 (*) Basophils Relative 0.4 Neutrophils Absolute 1.7 (*) Lymphocytes Absolute 0.7 (*) Monocytes Absolute 0.2 Eosinophils Absolute 0.0 Basophils Absolute 0.0 BASIC METABOLIC PANEL - Abnormal SODIUM 135 POTASSIUM 3.7 CHLORIDE 104 CARBON DIOXIDE 27 UREA NITROGEN 17 CREATININE 1.01 GLUCOSE 203 (*) CALCIUM 8.6 ANION GAP 4 eGFR 65.9 POCT GLUCOSE METER UNSOLICITED RESULTS - Abnormal Glucose 198 (*) Narrative: [facility]formed by: [facility], [address] [place] [id number] CLIA ID: [id number] TROPONIN I - Normal TROPONIN I <0.012 Narrative: Patients with high levels of Biotin oral intake (ie >5 mg/day) may have falsely decreased Troponin levels. CALCIUM, IONIZED - Normal Calcium, Ion 4.40 PH, IONIZED CALCIUM 7.44 POCT GLUCOSE METER - Normal Glucose Blood, POC 198 All other labs were within normal range or not returned as of this dictation. EMERGENCY DEPARTMENT COURSE and DIFFERENTIAL DIAGNOSIS/MDM: Vitals: Vitals: 02/13/23 1905 02/13/23 2204 BP: (!) 159/89 136/84 Pulse: 80 74 Resp: 18 18 Temp: 36 C (96.8 F) 36.8 C (98.3 F) TempSrc: Temporal Temporal SpO2: 97% 95% Patient presents to the ED after near syncopal event while working today. Patient states that she has been feeling a bit nauseous and having some diarrhea lately. She states that over the last couple days she has just felt weaker than normal. She has been eating and drinking though not as much as she normally does. Patient's states that she has been performing her normal daily activities but does seem to have decreased amount of energy from baseline. Patient does have a history of COPD, does not require supplemental oxygen at home. She denies any worsening cough, productive cough, or shortness of breath than from baseline. Patient was satting well here on room air in the ED. Heart and lung sounds were normal with no appreciable wheezing, rales, or other abnormalities. Given her past medical history and presentation with near syncope today did have concern for possible arrhythmia or ACS as an etiology despite the patient having no chest pain or feeling palpitations. EKG per my interpretation shows sinus rhythm with left anterior fascicular block. No ST elevations or depressions, no arrhythmia or ectopy, normal intervals. No clear evidence of acute ischemia or infarct. CBC and BMP without significant derangements. Troponin is not elevated. Ionized calcium is within normal limits. [id number] blood glucose is 198. Patient states that she has been running in the 300-400 range because she just resumed taking her insulin a few days ago due to change in insurance. No repeat episodes of near syncope/lightheadedness while in the ED. Ambulatory trial without any return of symptoms. At this time I feel patient is safe for discharge with outpatient follow-up with her primary care provider for further evaluation of her near syncopal episode. Return precautions were discussed and questions were answered at the bedside prior to discharge. Diagnoses as of 02/14/2332 Near syncope Medications - No data to display REVAL: CRITICAL CARE TIME None CONSULTS: None PROCEDURES: Unless otherwise noted below, none Procedures Patients symptoms are consistent with sepsis, severe sepsis, or septic shock (If yes use .sepsiscoremeasure): No FINAL IMPRESSION 1. Near syncope DISPOSITION Discharge 02/13/2023 09:25:37 PM PATIENT REFERRED TO: See Ricketts MD [address] [place] [address], [address] [facility] [phone] Call in 2 days [facility] [address] [place] [phone] If symptoms worsen DISCHARGE MEDICATIONS: Discharge Medication List as of 02/13/2023 9:26 PM (Comment: Please note this report has been produced using speech recognition software and may contain errors related to that system including errors in grammar, punctuation, and spelling, as well as words and phrases that may be inappropriate. If there are any questions or concerns please feel free to contact the dictating provider for clarification.) Nelson Grady MD (electronically signed) Emergency Medicine Provider Nelson Grady MD 02/14/2336 documented in this encounter [facility] 02-13-2023 Physician Emergency department Note EMERGENCY DEPARTMENT ENCOUNTER Pt Name: Raiza Carey Birthdate 1965 Date of evaluation: 02/13/2023 ED Provider: Nelson Grady MD CHIEF COMPLAINT Chief Complaint Patient presents with Dizziness Pt. Endorses dizziness beginning today. Denies associated CP/SOB. States hx of HTN but says her PCP took her off her BP medication in November 2022. Endorses HTN at home today, BP 159/89 in Triage. HISTORY OF PRESENT ILLNESS (Location/Symptom, Timing/Onset, Context/Setting, Quality, Duration, Modifying Factors, Severity) Note limiting factors. I wore appropriate PPE for the entirety of this encounter. HPI Raiza Carey is a 57 y.o. who presents to the emergency department with chief complaint of lightheadedness while at work today. Patient ports past medical history to include diabetes, hypertension-no longer on meds, obesity, ulcerative colitis. She states that over the last few days she has had some nausea and diarrhea, no vomiting. She is also been having a flareup of her multijoint arthritis. 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 While she was standing at the doorway she suddenly started to feel lightheaded like she was going to pass out. She states that she started to have some tunnel vision. She walked over to a bench and sat down and lowered her head. No loss of consciousness. She states that after sitting for a while the symptoms resolved. She stood up to go back to work and started to get lightheaded again. She sat back down and was dismissed from work to go home. Continues to feel mildly nauseous but currently denies any lightheadedness. Throughout the all of these events she denied any chest pain, shortness of breath. She states that she has had some exertional dyspnea along with feeling unwell over the last several days. She reports no change to her cough or sputum production from baseline. She does not wear supplemental oxygen at baseline and has not felt like she has needed it over the last several days. Patient states she checked her blood sugar when she got home and it was around 150. She also checked her blood pressure when she got home and it was 140/87. She states this tends to be a little high for her. Nursing Notes were reviewed. Limitations to history: None Outside historians: Spouse REVIEW OF SYSTEMS Review of Systems Constitutional: Positive for appetite change, chills and fatigue. Negative for fever and unexpected weight change. HENT: Negative. Respiratory: Positive for cough and shortness of breath. Cardiovascular: Negative. Gastrointestinal: Positive for diarrhea and nausea. Negative for vomiting. Genitourinary: Negative. Musculoskeletal: Negative. Skin: Negative. Neurological: Positive for light-headedness. Negative for tremors, seizures, facial asymmetry, speech difficulty and weakness. Near syncope. Psychiatric/Behavioral: Negative. Pertinent positives and negatives as per HPI. PAST MEDICAL HISTORY Past Medical History: Diagnosis Date Anxiety Arthritis Chest pain Depression Diabetic nephropathy ([facility]/HCC) ([facility]) Elevated transaminase level Fatigue GERD (gastroesophageal reflux disease) Headache(784.0) Hemorrhoids Hyperlipidemia Hypertension Low back pain Neuropathic pain Obesity DONNA (obstructive sleep apnea) Rectal bleed Right leg weakness Trochanteric bursitis of left hip Bilateral Type II or unspecified type diabetes mellitus without mention of complication, not stated as uncontrolled (HCC) Uncontrolled type 2 diabetes mellitus with complication 02/19/2015 SURGICAL HISTORY Past Surgical History: Procedure Laterality Date CARDIAC CATHETERIZATION 06/03/2018 CARPAL TUNNEL RELEASE CHOLECYSTECTOMY COLONOSCOPY 2011 ENDOMETRIAL ABLATION HERNIA REPAIR TONSILLECTOMY AND ADENOIDECTOMY (HISTORICAL) CURRENT MEDICATIONS Discharge Medication List as of 02/13/2023 9:26 PM CONTINUE these medications which have NOT CHANGED Details albuterol 108 (90 Base) MCG/ACT inhaler Inhale 108 puffs every 6 hours as needed., Starting Wed08/20/2022, Historical Med amoxicillin-clavulanate (Augmentin) 875-125 MG tablet Take 1 tablet by mouth in the morning and 1 tablet in the evening. Do all this for 10 days., Starting Wed02/04/2023, Until 02/14/2023, Normal aspirin 81 MG EC tablet Take 81 mg by mouth daily., Historical Med buPROPion XL (Wellbutrin XL) 300 MG 24 hr tablet Take 300 mg by mouth daily. Do not crush, chew, or split., Historical Med busPIRone (Buspar) 10 MG tablet Take 10 mg by mouth 2 times daily., Historical Med clotrimazole (Lotrimin) 1 % cream Apply 1 Application topically 2 times daily for 14 days. Apply to affected area 2 times daily, Starting Wed02/04/2023, Until Wed02/18/2023, Normal empagliflozin (Jardiance) 25 MG Take 1 tablet (25 mg) by mouth daily., Starting Wed12/09/2022, Normal HumuLIN R U-500 KWIKPEN 500 UNIT/ML CONCENTRATED injection Inject under the skin 3 times daily (before meals). 160 units at breakfast, 30 units with lunch and 120 units with dinner, Starting Wed10/20/2022, Historical Med hydrOXYzine HCl (Atarax) 25 MG tablet Take 25 mg by mouth every 8 hours as needed., Starting Wed09/07/2022, Historical Med labetalol (Normodyne) 100 MG tablet Take 100 mg by mouth in the morning and 100 mg in the evening., Historical Med metFORMIN (Glucophage) 1000 MG tablet Take 1,000 mg by mouth in the morning and 1,000 mg in the evening., Starting Wed11/03/2022, Historical Med Unifine Pentips 31G X 8 MM misc Historical Med ALLERGIES Cat hair extract, Lisinopril, and Pollen extract FAMILY HISTORY Family History Problem Relation Name Age of Onset Diabetes Mother Heart disease Father Cancer Father prostate High Blood Pressure Father Other ([id number]) Sister TBI Depression Mother Substance Abuse Brother Heart disease Mother Other ([id number]) Mother Depression Brother SOCIAL HISTORY Social History Socioeconomic History Marital status: Tobacco Use Smoking status: Former Packs/day: 2.00 Types: Cigarettes Quit date: 09/01/2013 Years since quittin.4 Smokeless tobacco: Never Substance and Sexual Activity Alcohol use: Not Currently Alcohol/week: 0.0 standard drinks of alcohol Drug use: No Social Determinants of Health Financial Resource Strain: High Risk (12/30/2022) Overall Financial Resource Strain (CARDIA) Difficulty of Paying Living Expenses: Very hard Food Insecurity: No Food Insecurity (02/11/2023) Hunger Vital Sign Worried About Running Out of Food in the Last Year: Never true Ran Out of Food in the Last Year: Never true Transportation Needs: No Transportation Needs (12/30/2022) PRAPARE - Transportation Lack of Transportation (Medical): No Lack of Transportation (Non-Medical): No Physical Activity: Inactive (02/11/2023) Exercise Vital Sign Days of Exercise per Week: 0 days Minutes of Exercise per Session: 0 min Housing Stability: Low Risk (02/11/2023) Housing Stability Vital Sign Unable to Pay for Housing in the Last Year: No Number of Places Lived in the Last Year: 2 Unstable Housing in the Last Year: No SCREENINGS Sundeep Coma Scale Best Eye Response: Spontaneous Best Verbal Response: Oriented Best Motor Response: Follows commands Sundeep Coma Scale Score: 15 PHYSICAL EXAM ED Triage Vitals [02/13/23 1905] Temp Heart Rate Resp BP 36 C (96.8 F) 80 18 (!) 159/89 SpO2 Temp Source Heart Rate Source Patient Position 97 % Temporal Monitor -- BP Location FiO2 (%) -- -- Physical Exam Vitals and nursing note reviewed. Constitutional: General: She is not in acute distress. Appearance: She is obese. She is not ill-appearing or diaphoretic. HENT: Head: Normocephalic. Nose: Nose normal. Eyes: General: No scleral icterus. Conjunctiva/sclera: Conjunctivae normal. Cardiovascular: Rate and Rhythm: Normal rate and regular rhythm. Pulses: Normal pulses. Heart sounds: Normal heart sounds. Pulmonary: Effort: Pulmonary effort is normal. No respiratory distress. Breath sounds: Normal breath sounds. Abdominal: General: There is no distension. Palpations: Abdomen is soft. Tenderness: There is no abdominal tenderness. There is no guarding. Musculoskeletal: General: No swelling or deformity. Cervical back: Normal range of motion and neck supple. Right lower leg: No edema. Left lower leg: No edema. Skin: General: Skin is warm and dry. Capillary Refill: Capillary refill takes less than 2 seconds. Neurological: General: No focal deficit present. Mental Status: She is alert and oriented to person, place, and time. Psychiatric: Mood and Affect: Mood normal. Behavior: Behavior normal. DIAGNOSTIC RESULTS Procedures/EKG: EKG was reviewed by myself. [facility] RAD[facility]OLOGY (Per Emergency Physician): Interpretation per the Radiologist below, if available at the time of this note: XR chest 1 view Final Result 1. No acute findings. Report Dictated on Electronically Signed By: John Beaver MD Electronically Signed Date/Time: 02/13/2023 8:07 PM EDT ED BEDSIDE ULTRASOUND: Performed by ED Physician - none LABS: Labs Reviewed CBC WITH AUTO DIFFERENTIAL - Abnormal Result Value Auto WBC 2.6 (*) RBC 4.23 Hemoglobin 11.5 (*) Hematocrit 35.4 MCV 83.6 MCH 27.3 MCHC 32.6 RDW 16.3 (*) Platelets 64 (*) MPV 8.3 nRBC 0.1 Neutrophils Relative 63.4 Lymphocytes Relative 27.0 Monocytes Relative 9.2 Eosinophils Relative 0.0 (*) Basophils Relative 0.4 Neutrophils Absolute 1.7 (*) Lymphocytes Absolute 0.7 (*) Monocytes Absolute 0.2 Eosinophils Absolute 0.0 Basophils Absolute 0.0 BASIC METABOLIC PANEL - Abnormal SODIUM 135 POTASSIUM 3.7 CHLORIDE 104 CARBON DIOXIDE 27 UREA NITROGEN 17 CREATININE 1.01 GLUCOSE 203 (*) CALCIUM 8.6 ANION GAP 4 eGFR 65.9 POCT GLUCOSE METER UNSOLICITED RESULTS - Abnormal Glucose 198 (*) Narrative: Performed by: [facility], [address] [facility] [address] CLIA ID: [id number] TROPONIN I - Normal TROPONIN I <0.012 Narrative: Patients with high levels of Biotin oral intake (ie >5 mg/day) may have falsely decreased Troponin levels. CALCIUM, IONIZED - Normal Calcium, Ion 4.40 PH, IONIZED CALCIUM 7.44 POCT GLUCOSE METER - Normal Glucose Blood, POC 198 All other labs were within normal range or not returned as of this dictation. EMERGENCY DEPARTMENT COURSE and DIFFERENTIAL DIAGNOSIS/MDM: Vitals: Vitals: 02/13/23 1905 02/13/23 2204 BP: (!) 159/89 136/84 Pulse: 80 74 Resp: 18 18 Temp: 36 C (96.8 F) 36.8 C (98.3 F) TempSrc: Temporal Temporal SpO2: 97% 95% Patient presents to the ED after near syncopal event while working today. Patient states that she has been feeling a bit nauseous and having some diarrhea lately. She states that over the last couple days she has just felt weaker than normal. She has been eating and drinking though not as much as she normally does. Patient's states that she has been performing her normal daily activities but does seem to have decreased amount of energy from baseline. Patient does have a history of COPD, does not require supplemental oxygen at home. She denies any worsening cough, productive cough, or shortness of breath than from baseline. Patient was satting well here on room air in the ED. Heart and lung sounds were normal with no appreciable wheezing, rales, or other abnormalities. Given her past medical history and presentation with near syncope today did have concern for possible arrhythmia or ACS as an etiology despite the patient having no chest pain or feeling palpitations. EKG per my interpretation shows sinus rhythm with left anterior fascicular block. No ST elevations or depressions, no arrhythmia or ectopy, normal intervals. No clear evidence of acute ischemia or infarct. CBC and BMP without significant derangements. Troponin is not elevated. Ionized calcium is within normal limits. Gdgoc-bu-ygzy blood glucose is 198. Patient states that she has been running in the 300-400 range because she just resumed taking her insulin a few days ago due to change in insurance. No repeat episodes of near syncope/lightheadedness while in the ED. Ambulatory trial without any return of symptoms. At this time I feel patient is safe for discharge with outpatient follow-up with her primary care provider for further evaluation of her near syncopal episode. Return precautions were discussed and questions were answered at the bedside prior to discharge. Diagnoses as of 02/14/2332 Near syncope Medications - No data to display REVAL: CRITICAL CARE TIME None CONSULTS: None PROCEDURES: Unless otherwise noted below, none Procedures Patients symptoms are consistent with sepsis, severe sepsis, or septic shock (If yes use .sepsiscoremeasure): No FINAL IMPRESSION 1. Near syncope DISPOSITION Discharge 02/13/2023 09:25:37 PM PATIENT REFERRED TO: See Ricketts MD [address] [place] [address], [facility] [id number] Call in 2 days [facility] [address] [facility] [phone] If symptoms worsen DISCHARGE MEDICATIONS: Discharge Medication List as of 02/13/2023 9:26 PM (Comment: Please note this report has been produced using speech recognition software and may contain errors related to that system including errors in grammar, punctuation, and spelling, as well as words and phrases that may be inappropriate. If there are any questions or concerns please feel free to contact the dictating provider for clarification.) Nelson Grady MD (electronically signed) Emergency Medicine Provider Nelson Grady MD 02/14/2336 [facility] 02-06-2023 Emergency department Note Ice applied to left knee. Itzel Dela Cruz RN 02/06/232127 [facility] 02-06-2023 Emergency department Note Ice applied to left knee. Itzel Dela Cruz RN 02/06/232127 EMERGENCY DEPARTMENT ENCOUNTER Pt Name: Melanie Carey Birthdate 1965 Date of evaluation: 02/06/2023 ED Provider: Izabela Noyola DO CHIEF COMPLAINT Chief Complaint Patient presents with Knee Pain HISTORY OF PRESENT ILLNESS (Location/Symptom, Timing/Onset, Context/Setting, Quality, Duration, Modifying Factors, Severity) Note limiting factors. I wore appropriate PPE for the entirety of this encounter. HPI Melanie Carey is a 57 y.o. female who presents to the emergency department with complaint of positional/reproducible left knee pain for last 1 week. States that she recently started a new job 3 weeks ago where she is on her feet more frequently. Pain worsened with weightbearing and active range of motion of the knee. Significant other notes mild swelling to the left knee but patient herself denies swelling. No redness. Able to range knee but with discomfort. Denies calf swelling or redness. Denies prior history of DVT or PE. Denies DVT or PE risk factors. Denies trauma. Denies inciting position or maneuver with onset of pain 1 week ago. Denies pop sensation to knee. States she has arthritis but this typically affects her hips and her back. States she took 6 Excedrin pills over the course of 8 hours (contains 1.5 g of Tylenol). Nursing Notes were reviewed. Limitations to history: None Outside historians: Significant other REVIEW OF SYSTEMS Review of Systems Negative except per HPI PAST MEDICAL HISTORY Past Medical History: Diagnosis Date Anxiety Arthritis Chest pain Depression Diabetic nephropathy (CMS/HCC) (HCC) Elevated transaminase level Fatigue GERD (gastroesophageal reflux disease) Headache(784.0) Hemorrhoids Hyperlipidemia Hypertension Low back pain Neuropathic pain Obesity DONNA (obstructive sleep apnea) Rectal bleed Right leg weakness Trochanteric bursitis of left hip Bilateral Type II or unspecified type diabetes mellitus without mention of complication, not stated as uncontrolled (HCC) Uncontrolled type 2 diabetes mellitus with complication 02/19/2015 SURGICAL HISTORY Past Surgical History: Procedure Laterality Date CARDIAC CATHETERIZATION 06/03/2018 CARPAL TUNNEL RELEASE CHOLECYSTECTOMY COLONOSCOPY 2012 ENDOMETRIAL ABLATION HERNIA REPAIR TONSILLECTOMY AND ADENOIDECTOMY (HISTORICAL) CURRENT MEDICATIONS Discharge Medication List as of 02/06/2023 9:52 PM CONTINUE these medications which have NOT CHANGED Details albuterol 108 (90 Base) MCG/ACT inhaler Inhale 108 puffs every 6 hours as needed., Starting Wed08/20/2022, Historical Med amoxicillin-clavulanate (Augmentin) 875-125 MG tablet Take 1 tablet by mouth in the morning and 1 tablet in the evening. Do all this for 10 days., Starting Wed02/04/2023, Until Wed02/14/2023, Normal aspirin 81 MG EC tablet Take 81 mg by mouth daily., Historical Med buPROPion XL (Wellbutrin XL) 300 MG 24 hr tablet Take 300 mg by mouth daily. Do not crush, chew, or split., Historical Med busPIRone (Buspar) 10 MG tablet Take 10 mg by mouth 2 times daily., Historical Med clotrimazole (Lotrimin) 1 % cream Apply 1 Application topically 2 times daily for 14 days. Apply to affected area 2 times daily, Starting Wed02/04/2023, Until Wed02/18/2023, Normal empagliflozin (Jardiance) 25 MG Take 1 tablet (25 mg) by mouth daily., Starting Wed12/09/2022, Normal HumuLIN R U-500 KWIKPEN 500 UNIT/ML CONCENTRATED injection Inject under the skin 3 times daily (before meals). 160 units at breakfast, 30 units with lunch and 120 units with dinner, Starting Wed10/20/2022, Historical Med hydrOXYzine HCl (Atarax) 25 MG tablet Take 25 mg by mouth every 8 hours as needed., Starting Wed09/07/2022, Historical Med labetalol (Normodyne) 100 MG tablet Take 100 mg by mouth in the morning and 100 mg in the evening., Historical Med metFORMIN (Glucophage) 1000 MG tablet Take 1,000 mg by mouth in the morning and 1,000 mg in the evening., Starting Wed11/03/2022, Historical Med Unifine Pentips 31G X 8 MM misc Historical Med ALLERGIES Cat hair extract, Lisinopril, and Pollen extract FAMILY HISTORY Family History Problem Relation Name Age of Onset Diabetes Mother Heart disease Father Cancer Father prostate High Blood Pressure Father Other ([id number]) Sister TBI Depression Mother Substance Abuse Brother Heart disease Mother Other ([id number]) Mother Depression Brother SOCIAL HISTORY Social History Socioeconomic History Marital status: Tobacco Use Smoking status: Former Packs/day: 2.00 Types: Cigarettes Quit date: 09/01/2013 Years since quittin.4 Smokeless tobacco: Never Substance and Sexual Activity Alcohol use: Not Currently Alcohol/week: 0.0 standard drinks of alcohol Drug use: No Social Determinants of Health Financial Resource Strain: High Risk (12/30/2022) Overall Financial Resource Strain (CARDIA) Difficulty of Paying Living Expenses: Very hard Transportation Needs: No Transportation Needs (12/30/2022) PRAPARE - Transportation Lack of Transportation (Medical): No Lack of Transportation (Non-Medical): No SCREENINGS PHYSICAL EXAM ED Triage Vitals Temp Pulse Resp BP -- -- -- -- SpO2 Temp src Heart Rate Source Patient Position -- -- -- -- BP Location FiO2 (%) -- -- Physical Exam BP (!) 152/68 Pulse 80 Temp 36.7 C (98.1 F) (Oral) Resp 16 Ht 1.664 m (5' 5.5) Wt 132 kg (290 lb) SpO2 95% BMI 47.52 kg/m Lower Extremity Exam: No obvious deformity. There is tenderness to the L knee . There is no swelling. ROM is intact. 5/5 strength to hip flexors, hip extensors, knee flexion, knee extension, dorsiflexion, plantarflexion, EHL of great toe. Distal capillary refill takes less than 2 seconds. DP, PT pulses are 2+ bilaterally. Distal sensation and motor intact. DIAGNOSTIC RESULTS RADIOLOGY (Per Emergency Physician): XR L Knee No acute traumatic injury. Mild arthritis Interpretation per the Radiologist below, if available at the time of this note: XR knee 4+ views left Final Result 1. No acute osseous abnormality. 2. Mild degenerative change. Report Dictated on Electronically Signed By: John Beaver MD Electronically Signed Date/Time: 02/06/2023 9:44 PM EDT LABS: Labs Reviewed - No data to display All other labs were within normal range or not returned as of this dictation. EMERGENCY DEPARTMENT COURSE and DIFFERENTIAL DIAGNOSIS/MDM: Vitals: Vitals: 02/06/23 2100 BP: (!) 152/68 Pulse: 80 Resp: 16 Temp: 36.7 C (98.1 F) TempSrc: Oral SpO2: 95% Weight: 132 kg (290 lb) Height: 1.664 m (5' 5.5) 57-year-old female with medical history of arthritis presenting with atraumatic left knee pain for 1 week in setting of starting new more physically active job 3 weeks ago. Worsened with range of motion and weightbearing. Considered arthritis, ligamental/meniscal injury, septic arthritis, DVT. Vital signs stable, afebrile. Exam without appreciated knee swelling or redness to suggest septic arthritis. Patient with full active range of motion of the knee but with patient endorsed mild discomfort. No calf swelling or redness or discomfort with palpation to suggest DVT. Neurovascularly intact. X-ray interpreted by myself and verified by radiology without acute traumatic injury. Mild arthritis on x-ray. Discharged home with instruction to continue conservative management. Given referral to sports medicine. Diagnostics interpreted by me: Xray(s) arthritis, no acute traumatic injury Chronic conditions impacting care: Osteoarthritis and diabetes ED Medications managed: Medications - No data to display PROCEDURES: Unless otherwise noted below, none Procedures FINAL IMPRESSION 1. Sprain of left knee, unspecified ligament, initial encounter DISPOSITION Discharge 02/06/2023 09:52:46 PM PATIENT REFERRED TO: [facility] [address] [place] [id number] DISCHARGE MEDICATIONS: Discharge Medication List as of 02/06/2023 9:52 PM (Comment: Please note this report has been produced using speech recognition software and may contain errors related to that system including errors in grammar, punctuation, and spelling, as well as words and phrases that may be inappropriate. If there are any questions or concerns please feel free to contact the dictating provider for clarification.) Izabela Noyola DO (electronically signed) Emergency Medicine Provider Izabela Noyola DO 02/06/232151 Izabela Noyola DO 02/06/23 2218 Patient to room 4 with c/o left knee pain for 2 days. Patient reports painful ambulation and painful with pressure. V/S obtained, call light within reach. documented in this encounter [facility] 02-06-2023 Emergency department Triage note Patient to room 4 with c/o left knee pain for 2 days. Patient reports painful ambulation and painful with pressure. V/S obtained, call light within reach. [facility] 02-06-2023 Physician Emergency department Note EMERGENCY DEPARTMENT ENCOUNTER Pt Name: Melanie Carey Birthdate 1965 Date of evaluation: 02/06/2023 ED Provider: Izabela Noyola DO CHIEF COMPLAINT Chief Complaint Patient presents with Knee Pain HISTORY OF PRESENT ILLNESS (Location/Symptom, Timing/Onset, Context/Setting, Quality, Duration, Modifying Factors, Severity) Note limiting factors. I wore appropriate PPE for the entirety of this encounter. HPI Melanie Carey is a 57 y.o. female who presents to the emergency department with complaint of positional/reproducible left knee pain for last 1 week. States that she recently started a new job 3 weeks ago where she is on her feet more frequently. Pain worsened with weightbearing and active range of motion of the knee. Significant other notes mild swelling to the left knee but patient herself denies swelling. No redness. Able to range knee but with discomfort. Denies calf swelling or redness. Denies prior history of DVT or PE. Denies DVT or PE risk factors. Denies trauma. Denies inciting position or maneuver with onset of pain 1 week ago. Denies pop sensation to knee. States she has arthritis but this typically affects her hips and her back. States she took 6 Excedrin pills over the course of 8 hours (contains 1.5 g of Tylenol). Nursing Notes were reviewed. Limitations to history: None Outside historians: Significant other REVIEW OF SYSTEMS Review of Systems Negative except per HPI PAST MEDICAL HISTORY Past Medical History: Diagnosis Date Anxiety Arthritis Chest pain Depression Diabetic nephropathy (CMS/HCC) (HCC) Elevated transaminase level Fatigue GERD (gastroesophageal reflux disease) Headache(784.0) Hemorrhoids Hyperlipidemia Hypertension Low back pain Neuropathic pain Obesity DONNA (obstructive sleep apnea) Rectal bleed Right leg weakness Trochanteric bursitis of left hip Bilateral Type II or unspecified type diabetes mellitus without mention of complication, not stated as uncontrolled (HCC) Uncontrolled type 2 diabetes mellitus with complication 02/19/2015 SURGICAL HISTORY Past Surgical History: Procedure Laterality Date CARDIAC CATHETERIZATION 06/03/2018 CARPAL TUNNEL RELEASE CHOLECYSTECTOMY COLONOSCOPY 2011 ENDOMETRIAL ABLATION HERNIA REPAIR TONSILLECTOMY AND ADENOIDECTOMY (HISTORICAL) CURRENT MEDICATIONS Discharge Medication List as of 02/06/2023 9:52 PM CONTINUE these medications which have NOT CHANGED Details albuterol 108 (90 Base) MCG/ACT inhaler Inhale 108 puffs every 6 hours as needed., Starting Wed08/20/2022, Historical Med amoxicillin-clavulanate (Augmentin) 875-125 MG tablet Take 1 tablet by mouth in the morning and 1 tablet in the evening. Do all this for 10 days., Starting Wed02/04/2023, Until 02/14/2023, Normal aspirin 81 MG EC tablet Take 81 mg by mouth daily., Historical Med buPROPion XL (Wellbutrin XL) 300 MG 24 hr tablet Take 300 mg by mouth daily. Do not crush, chew, or split., Historical Med busPIRone (Buspar) 10 MG tablet Take 10 mg by mouth 2 times daily., Historical Med clotrimazole (Lotrimin) 1 % cream Apply 1 Application topically 2 times daily for 14 days. Apply to affected area 2 times daily, Starting Wed02/04/2023, Until Wed02/18/2023, Normal empagliflozin (Jardiance) 25 MG Take 1 tablet (25 mg) by mouth daily., Starting Wed12/09/2022, Normal HumuLIN R U-500 KWIKPEN 500 UNIT/ML CONCENTRATED injection Inject under the skin 3 times daily (before meals). 160 units at breakfast, 30 units with lunch and 120 units with dinner, Starting Wed10/20/2022, Historical Med hydrOXYzine HCl (Atarax) 25 MG tablet Take 25 mg by mouth every 8 hours as needed., Starting Wed09/07/2022, Historical Med labetalol (Normodyne) 100 MG tablet Take 100 mg by mouth in the morning and 100 mg in the evening., Historical Med metFORMIN (Glucophage) 1000 MG tablet Take 1,000 mg by mouth in the morning and 1,000 mg in the evening., Starting Wed11/03/2022, Historical Med Unifine Pentips 31G X 8 MM misc Historical Med ALLERGIES Cat hair extract, Lisinopril, and Pollen extract FAMILY HISTORY Family History Problem Relation Name Age of Onset Diabetes Mother Heart disease Father Cancer Father prostate High Blood Pressure Father Other ([id number]) Sister TBI Depression Mother Substance Abuse Brother Heart disease Mother Other ([id number]) Mother Depression Brother SOCIAL HISTORY Social History Socioeconomic History Marital status: Tobacco Use Smoking status: Former Packs/day: 2.00 Types: Cigarettes Quit date: 09/01/2013 Years since quittin.4 Smokeless tobacco: Never Substance and Sexual Activity Alcohol use: Not Currently Alcohol/week: 0.0 standard drinks of alcohol Drug use: No Social Determinants of Health Financial Resource Strain: High Risk (12/30/2022) Overall Financial Resource Strain (CARDIA) Difficulty of Paying Living Expenses: Very hard Transportation Needs: No Transportation Needs (12/30/2022) PRAPARE - Transportation Lack of Transportation (Medical): No Lack of Transportation (Non-Medical): No SCREENINGS PHYSICAL EXAM ED Triage Vitals Temp Pulse Resp BP -- -- -- -- SpO2 Temp src Heart Rate Source Patient Position -- -- -- -- BP Location FiO2 (%) -- -- Physical Exam BP (!) 152/68 Pulse 80 Temp 36.7 C (98.1 F) (Oral) Resp 16 Ht 1.664 m (5' 5.5) Wt 132 kg (290 lb) SpO2 95% BMI 47.52 kg/m Lower Extremity Exam: No obvious deformity. There is tenderness to the L knee . There is no swelling. ROM is intact. 5/5 strength to hip flexors, hip extensors, knee flexion, knee extension, dorsiflexion, plantarflexion, EHL of great toe. Distal capillary refill takes less than 2 seconds. DP, PT pulses are 2+ bilaterally. Distal sensation and motor intact. DIAGNOSTIC RESULTS RADIOLOGY (Per Emergency Physician): XR L Knee No acute traumatic injury. Mild arthritis Interpretation per the Radiologist below, if available at the time of this note: XR knee 4+ views left Final Result 1. No acute osseous abnormality. 2. Mild degenerative change. Report Dictated on Electronically Signed By: John Beaver MD Electronically Signed Date/Time: 02/06/2023 9:44 PM EDT LABS: Labs Reviewed - No data to display All other labs were within normal range or not returned as of this dictation. EMERGENCY DEPARTMENT COURSE and DIFFERENTIAL DIAGNOSIS/MDM: Vitals: Vitals: 02/06/23 2100 BP: (!) 152/68 Pulse: 80 Resp: 16 Temp: 36.7 C (98.1 F) TempSrc: Oral SpO2: 95% Weight: 132 kg (290 lb) Height: 1.664 m (5' 5.5) 57-year-old female with medical history of arthritis presenting with atraumatic left knee pain for 1 week in setting of starting new more physically active job 3 weeks ago. Worsened with range of motion and weightbearing. Considered arthritis, ligamental/meniscal injury, septic arthritis, DVT. Vital signs stable, afebrile. Exam without appreciated knee swelling or redness to suggest septic arthritis. Patient with full active range of motion of the knee but with patient endorsed mild discomfort. No calf swelling or redness or discomfort with palpation to suggest DVT. Neurovascularly intact. X-ray interpreted by myself and verified by radiology without acute traumatic injury. Mild arthritis on x-ray. Discharged home with instruction to continue conservative management. Given referral to sports medicine. Diagnostics interpreted by me: Xray(s) arthritis, no acute traumatic injury Chronic conditions impacting care: Osteoarthritis and diabetes ED Medications managed: Medications - No data to display PROCEDURES: Unless otherwise noted below, none Procedures FINAL IMPRESSION 1. Sprain of left knee, unspecified ligament, initial encounter DISPOSITION Discharge 02/06/2023 09:52:46 PM PATIENT REFERRED TO: [facility] [address] [place] [id number] DISCHARGE MEDICATIONS: Discharge Medication List as of 02/06/2023 9:52 PM (Comment: Please note this report has been produced using speech recognition software and may contain errors related to that system including errors in grammar, punctuation, and spelling, as well as words and phrases that may be inappropriate. If there are any questions or concerns please feel free to contact the dictating provider for clarification.) Izabela Noyola DO (electronically signed) Emergency Medicine Provider Izabela Noyola DO 02/06/232151 Izabela Noyola DO 02/06/232217 [facility] 02-04-2023 Hospital Discharge instructions Jarvis Belcher MD - 02/04/2023 11:45 PM EDT Use the Augmentin twice a day for 10 days. Use the Lotrimin cream twice a day for 14 days. You can also use an tppx-tuq-itwbvwe antifungal powder. In addition keep this area clean and dry is much as possible. Call your doctor tomorrow to be seen in the next 1 to 4 days. The following attachments cannot be sent through Care Everywhere.Skin Abscess (Maldivian)Fungal Skin Rash Discharge Instructions (Maldivian)documented in this encounter [facility] 02-04-2023 Emergency department Note [facility] ED EMERGENCY DEPARTMENT ENCOUNTER Pt Name: Melanie Carey Birthdate 1965 Date of evaluation: 02/04/2023 Provider: Jarvis Belcher MD CHIEF COMPLAINT Chief Complaint Patient presents with Abscess Pt c/o open sore to vaginal area. States that it is golfball sized. +bleeding. +drainage. HISTORY OF PRESENT ILLNESS (Location/Symptom, Timing/Onset,Context/Setting, Quality, Duration, Modifying Factors, Severity) Note limiting factors. Melanie Craey is a 57 y.o. female who presents to the emergency department with concerns for abscess. 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 She is diabetic. She reports no fevers or chills. She said it drained earlier today she comes in because she believes she needs to be on antibiotics. She is diabetic. She is to monitor blood sugar closely but she has inconsistent with compliance of her medication. No chest pain, shortness breath, fever, chills. HPI Historian is the patient Nurse's notes for past medical history, surgical history, social history were reviewed. Medications and allergies reviewed. PAST MEDICAL HISTORY Past Medical History: Diagnosis Date Anxiety Arthritis Chest pain Depression Diabetic nephropathy (CMS/HCC) (HCC) Elevated transaminase level Fatigue GERD (gastroesophageal reflux disease) Headache(784.0) Hemorrhoids Hyperlipidemia Hypertension Low back pain Neuropathic pain Obesity DONNA (obstructive sleep apnea) Rectal bleed Right leg weakness Trochanteric bursitis of left hip Bilateral Type II or unspecified type diabetes mellitus without mention of complication, not stated as uncontrolled (HCC) Uncontrolled type 2 diabetes mellitus with complication 02/19/2015 SURGICALHISTORY Past Surgical History: Procedure Laterality Date CARDIAC CATHETERIZATION 06/03/2018 CARPAL TUNNEL RELEASE CHOLECYSTECTOMY COLONOSCOPY 2011 ENDOMETRIAL ABLATION HERNIA REPAIR TONSILLECTOMY AND ADENOIDECTOMY (HISTORICAL) CURRENT MEDICATIONS Previous Medications ALBUTEROL 108 (90 BASE) MCG/ACT INHALER Inhale 108 puffs every 6 hours as needed. ASPIRIN 81 MG EC TABLET Take 81 mg by mouth daily. BUPROPION XL (WELLBUTRIN XL) 300 MG 24 HR TABLET Take 300 mg by mouth daily. Do not crush, chew, or split. BUSPIRONE (BUSPAR) 10 MG TABLET Take 10 mg by mouth 2 times daily. EMPAGLIFLOZIN (JARDIANCE) 25 MG Take 1 tablet (25 mg) by mouth daily. HUMULIN R U-500 KWIKPEN 500 UNIT/ML CONCENTRATED INJECTION Inject under the skin 3 times daily (before meals). 160 units at breakfast, 30 units with lunch and 120 units with dinner HYDROXYZINE HCL (ATARAX) 25 MG TABLET Take 25 mg by mouth every 8 hours as needed. LABETALOL (NORMODYNE) 100 MG TABLET Take 100 mg by mouth in the morning and 100 mg in the evening. METFORMIN (GLUCOPHAGE) 1000 MG TABLET Take 1,000 mg by mouth in the morning and 1,000 mg in the evening. ONDANSETRON ODT (ZOFRAN-ODT) 4 MG DISINTEGRATING TABLET Take 1 tablet (4 mg) by mouth every 8 hours as needed for nausea or vomiting for up to 3 days. UNIFINE PENTIPS 31G X 8 MM [facility] Cat hair extract, Lisinopril, and Pollen extract FAMILY HISTORY Family History Problem Relation Name Age of Onset Diabetes Mother Heart disease Father Cancer Father prostate High Blood Pressure Father Other ([id number]) Sister TBI Depression Mother Substance Abuse Brother Heart disease Mother Other ([id number]) Mother Depression Brother SOCIAL HISTORY Social History Socioeconomic History Marital status: Tobacco Use Smoking status: Former Packs/day: 2.00 Types: Cigarettes Quit date: 09/01/2013 Years since quittin.4 Smokeless tobacco: Never Substance and Sexual Activity Alcohol use: Not Currently Alcohol/week: 0.0 standard drinks of alcohol Drug use: No Social Determinants of Health Financial Resource Strain: High Risk (12/30/2022) Overall Financial Resource Strain (CARDIA) Difficulty of Paying Living Expenses: Very hard Transportation Needs: No Transportation Needs (12/30/2022) PRAPARE - Transportation Lack of Transportation (Medical): No Lack of Transportation (Non-Medical): No SCREENINGS PHYSICAL EXAM (up to 7 for level 4, 8 or more for level 5) @EDTRIAGEVSS@ Appropriate PPE including n 95, gown, gloves, goggles where worn when appropriate with this patient. Physical Exam General awake alert appropriate nontoxic in appearance Heart is regular. Lungs are clear. 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 She also has an open area in the crease that is above the vaginal area but is in the lower pelvic region that is open but there is no mass or golf ball sized area she describes. She thinks it drained earlier. There is no signs of necrotizing fasciitis. DIAGNOSTIC RESULTS RADIOLOGY: Interpretation per the Radiologist below, if availableat the time of this note: No orders to display ED BEDSIDE ULTRASOUND: Performed by ED Physician - none LABS: Labs Reviewed - No data to display All other labs were within normal range or not returned as of thisdictation. EMERGENCYDEPARTMENT COURSE and DIFFERENTIAL DIAGNOSIS/MDM: Vitals: Vitals: 02/04/23222902/04/232231 BP: (!) 149/85 Pulse: 79 Resp: 18 Temp: 36.6 C (97.9 F) TempSrc: Temporal SpO2: 96% Weight: 132 kg (290 lb) Height: 1.651 m (5' 5) Medical Decision Making EMERGENCY DEPARTMENT COURSE and DIFFERENTIAL DIAGNOSIS/MDM: Vitals: Vitals: 02/04/23222902/04/232231 BP: (!) 149/85 Pulse: 79 Resp: 18 Temp: 36.6 C (97.9 F) TempSrc: Temporal SpO2: 96% Weight: 132 kg (290 lb) Height: 1.651 m (5' 5) The patient presented with a chief complaint of infection cellulitis abscess. The differential diagnosis associated with this patient's presentation includes necrotizing fasciitis, cellulitis, abscess, yeast infection. Our workup consisted of ordering/reviewing none. Patient will be treated with Augmentin twice a day for 10 days. Given first dose orally here. Also Lotrimin ointment [id number]-[id number] twice a day for 14 days. Can also use antifungal [id number]-hgdxpah powder keep the area clean and dry. Follow-up with her doctor in 4 days. Return here if fevers chills nausea vomiting any problems or concerns. Monitor blood sugar closely. Advised her she needs to follow-up with her doctor and get to being compliant on her diabetes medication. I do not believe any blood work is not indicated now. Diagnoses as of 02/04/23 2347 Abscess Lilly infection Diagnostics considered but not indicated based on history, physical, testing: Labs CT however not clinically indicated based on history physical examination. External records reviewed: Outpatient notes urgent care visit 02/01/2023 for migraine. ED visit 01/14/2023 for fall. Radiologic diagnostics interpreted by me: film images such as CT, Ultrasound and MRI are read by the radiologist. Plain radiographic images are visualized and preliminarily interpreted by the emergency physician with the below findings: none Discussions with other clinicians: none Chronic conditions impacting care: Diabetes Social determinants of health affecting care: Noncompliance with medication Shared decision making: Patient agrees to treatment plan Admission to the hospital considered : Patient has no fever no tachycardia I do not believe she is septic but she is diabetic certainly consideration for further testing admission is indicated however I think with antibiotics and treatment she can go home and closely follow-up as an outpatient patient agrees to this. ED Medications managed: Medications amoxicillin-clavulanate (Augmentin) 875-125 MG per tablet 1 tablet (has no administration in time range) Prescription drugs considered: Antibiotics Augmentin 875 mg 1 orally twice a day for 10 days. Lotrimin antifungal cream used twice a day for 14 days. PROCEDURES: Unless otherwise noted below, none Procedures IMPRESSION 1. Abscess 2. Lilly infection DISPOSITION/PLAN DISPOSITION Discharge 02/04/2023 11:45:27 PM PATIENT REFERRED TO: See Ricketts MD [address] [place] [address], [address] [facility] [id number] In 4 days DISCHARGE MEDICATIONS: New Prescriptions AMOXICILLIN-CLAVULANATE (AUGMENTIN) 875-125 MG TABLET Take 1 tablet by mouth in the morning and 1 tablet in the evening. Do all this for 10 days. CLOTRIMAZOLE (LOTRIMIN) 1 % CREAM Apply 1 Application topically 2 times daily for 14 days. Apply to affected area 2 times daily @[facility]([id number]:LAST:1)@ (Comment: Please notethis report has been produced using speech recognition software and may contain errors related to that system including errors in grammar, punctuation, and spelling, as well as words and phrases that may be inappropriate.If there is any questions or concerns please feel free to contact the dictating provider for clarification). Jarvis Belcher MD (electronically signed) Attending Emergency Physician Jarvis Belcher MD 02/04/23 [id number] documented in this encounter [facility] 02-04-2023 Physician Emergency department Note [facility] ED EMERGENCY DEPARTMENT ENCOUNTER Pt Name: Melanie Carey Birthdate 1965 Date of evaluation: 02/04/2023 Provider: Jarvis Belcher MD CHIEF COMPLAINT Chief Complaint Patient presents with Abscess Pt c/o open sore to vaginal area. States that it is golfball sized. +bleeding. +drainage. HISTORY OF PRESENT ILLNESS (Location/Symptom, Timing/Onset,Context/Setting, Quality, Duration, Modifying Factors, Severity) Note limiting factors. Melanie Carey is a 57 y.o. female who presents to the emergency department with concerns for abscess. 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 She is diabetic. She reports no fevers or chills. She said it drained earlier today she comes in because she believes she needs to be on antibiotics. She is diabetic. She is to monitor blood sugar closely but she has inconsistent with compliance of her medication. No chest pain, shortness breath, fever, chills. HPI Historian is the patient Nurse's notes for past medical history, surgical history, social history were reviewed. Medications and allergies reviewed. PAST MEDICAL HISTORY Past Medical History: Diagnosis Date Anxiety Arthritis Chest pain Depression Diabetic nephropathy (CMS/HCC) (HCC) Elevated transaminase level Fatigue GERD (gastroesophageal reflux disease) Headache(784.0) Hemorrhoids Hyperlipidemia Hypertension Low back pain Neuropathic pain Obesity DONNA (obstructive sleep apnea) Rectal bleed Right leg weakness Trochanteric bursitis of left hip Bilateral Type II or unspecified type diabetes mellitus without mention of complication, not stated as uncontrolled (HCC) Uncontrolled type 2 diabetes mellitus with complication 02/19/2015 SURGICALHISTORY Past Surgical History: Procedure Laterality Date CARDIAC CATHETERIZATION 06/03/2018 CARPAL TUNNEL RELEASE CHOLECYSTECTOMY COLONOSCOPY 2011 ENDOMETRIAL ABLATION HERNIA REPAIR TONSILLECTOMY AND ADENOIDECTOMY (HISTORICAL) CURRENT MEDICATIONS Previous Medications ALBUTEROL 108 (90 BASE) MCG/ACT INHALER Inhale 108 puffs every 6 hours as needed. ASPIRIN 81 MG EC TABLET Take 81 mg by mouth daily. BUPROPION XL (WELLBUTRIN XL) 300 MG 24 HR TABLET Take 300 mg by mouth daily. Do not crush, chew, or split. BUSPIRONE (BUSPAR) 10 MG TABLET Take 10 mg by mouth 2 times daily. EMPAGLIFLOZIN (JARDIANCE) 25 MG Take 1 tablet (25 mg) by mouth daily. HUMULIN R U-500 KWIKPEN 500 UNIT/ML CONCENTRATED INJECTION Inject under the skin 3 times daily (before meals). 160 units at breakfast, 30 units with lunch and 120 units with dinner HYDROXYZINE HCL (ATARAX) 25 MG TABLET Take 25 mg by mouth every 8 hours as needed. LABETALOL (NORMODYNE) 100 MG TABLET Take 100 mg by mouth in the morning and 100 mg in the evening. METFORMIN (GLUCOPHAGE) 1000 MG TABLET Take 1,000 mg by mouth in the morning and 1,000 mg in the evening. ONDANSETRON ODT (ZOFRAN-ODT) 4 MG DISINTEGRATING TABLET Take 1 tablet (4 mg) by mouth every 8 hours as needed for nausea or vomiting for up to 3 days. UNIFINE PENTIPS 31G X 8 MM [facility] Cat hair extract, Lisinopril, and Pollen extract FAMILY HISTORY Family History Problem Relation Name Age of Onset Diabetes Mother Heart disease Father Cancer Father prostate High Blood Pressure Father Other ([id number]) Sister TBI Depression Mother Substance Abuse Brother Heart disease Mother Other ([id number]) Mother Depression Brother SOCIAL HISTORY Social History Socioeconomic History Marital status: Tobacco Use Smoking status: Former Packs/day: 2.00 Types: Cigarettes Quit date: 09/01/2013 Years since quittin.4 Smokeless tobacco: Never Substance and Sexual Activity Alcohol use: Not Currently Alcohol/week: 0.0 standard drinks of alcohol Drug use: No Social Determinants of Health Financial Resource Strain: High Risk (12/30/2022) Overall Financial Resource Strain (CARDIA) Difficulty of Paying Living Expenses: Very hard Transportation Needs: No Transportation Needs (12/30/2022) PRAPARE - Transportation Lack of Transportation (Medical): No Lack of Transportation (Non-Medical): No SCREENINGS PHYSICAL EXAM (up to 7 for level 4, 8 or more for level 5) @EDTRIAGEVSS@ Appropriate PPE including n 95, gown, gloves, goggles where worn when appropriate with this patient. Physical Exam General awake alert appropriate nontoxic in appearance Heart is regular. Lungs are clear. 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 She also has an open area in the crease that is above the vaginal area but is in the lower pelvic region that is open but there is no mass or golf ball sized area she describes. She thinks it drained earlier. There is no signs of necrotizing fasciitis. DIAGNOSTIC RESULTS RADIOLOGY: Interpretation per the Radiologist below, if availableat the time of this note: No orders to display ED BEDSIDE ULTRASOUND: Performed by ED Physician - none LABS: Labs Reviewed - No data to display All other labs were within normal range or not returned as of thisdictation. EMERGENCYDEPARTMENT COURSE and DIFFERENTIAL DIAGNOSIS/MDM: Vitals: Vitals: 02/04/23222902/04/232231 BP: (!) 149/85 Pulse: 79 Resp: 18 Temp: 36.6 C (97.9 F) TempSrc: Temporal SpO2: 96% Weight: 132 kg (290 lb) Height: 1.651 m (5' 5) Medical Decision Making EMERGENCY DEPARTMENT COURSE and DIFFERENTIAL DIAGNOSIS/MDM: Vitals: Vitals: 02/04/23222902/04/232231 BP: (!) 149/85 Pulse: 79 Resp: 18 Temp: 36.6 C (97.9 F) TempSrc: Temporal SpO2: 96% Weight: 132 kg (290 lb) Height: 1.651 m (5' 5) The patient presented with a chief complaint of infection cellulitis abscess. The differential diagnosis associated with this patient's presentation includes necrotizing fasciitis, cellulitis, abscess, yeast infection. Our workup consisted of ordering/reviewing none. Patient will be treated with Augmentin twice a day for 10 days. Given first dose orally here. Also Lotrimin ointment [id number]-[id number] twice a day for 14 days. Can also use antifungal atjr-tti-vwoiswx powder keep the area clean and dry. Follow-up with her doctor in 4 days. Return here if fevers chills nausea vomiting any problems or concerns. Monitor blood sugar closely. Advised her she needs to follow-up with her doctor and get to being compliant on her diabetes medication. I do not believe any blood work is not indicated now. Diagnoses as of 02/04/23 2347 Abscess Lilly infection Diagnostics considered but not indicated based on history, physical, testing: Labs CT however not clinically indicated based on history physical examination. External records reviewed: Outpatient notes urgent care visit 02/01/2023 for migraine. ED visit 01/14/2023 for fall. Radiologic diagnostics interpreted by me: film images such as CT, Ultrasound and MRI are read by the radiologist. Plain radiographic images are visualized and preliminarily interpreted by the emergency physician with the below findings: none Discussions with other clinicians: none Chronic conditions impacting care: Diabetes Social determinants of health affecting care: Noncompliance with medication Shared decision making: Patient agrees to treatment plan Admission to the hospital considered : Patient has no fever no tachycardia I do not believe she is septic but she is diabetic certainly consideration for further testing admission is indicated however I think with antibiotics and treatment she can go home and closely follow-up as an outpatient patient agrees to this. ED Medications managed: Medications amoxicillin-clavulanate (Augmentin) 875-125 MG per tablet 1 tablet (has no administration in time range) Prescription drugs considered: Antibiotics Augmentin 875 mg 1 orally twice a day for 10 days. Lotrimin antifungal cream used twice a day for 14 days. PROCEDURES: Unless otherwise noted below, none Procedures IMPRESSION 1. Abscess 2. Lilly infection DISPOSITION/PLAN DISPOSITION Discharge 02/04/2023 11:45:27 PM PATIENT REFERRED TO: See Ricketts MD [address] [place] [address], [address] [facility] [id number] In 4 days DISCHARGE MEDICATIONS: New Prescriptions AMOXICILLIN-CLAVULANATE (AUGMENTIN) 875-125 MG TABLET Take 1 tablet by mouth in the morning and 1 tablet in the evening. Do all this for 10 days. CLOTRIMAZOLE (LOTRIMIN) 1 % CREAM Apply 1 Application topically 2 times daily for 14 days. Apply to affected area 2 times daily @[facility]([id number]:1)@ (Comment: Please notethis report has been produced using speech recognition software and may contain errors related to that system including errors in grammar, punctuation, and spelling, as well as words and phrases that may be inappropriate.If there is any questions or concerns please feel free to contact the dictating provider for clarification). Jarvis Belcher MD (electronically signed) Attending Emergency Physician Jarvis Belcher MD 02/04/232346 [facility] 01-14-2023 Emergency department Note Pt called with no answer multiple times by [employer] and this ANTOINE Avina RN 01/14/232356 Milka Avina RN 01/14/232356 [facility] 01-14-2023 Emergency department Note Pt called with no answer multiple times by [employer] and this ANTOINE Avina RN 01/14/232356 Milka Avina RN 01/14/232356 EMERGENCY DEPARTMENT ENCOUNTER Pt Name: Raiza Carey Birthdate 1965 Date of evaluation: 01/14/2023 ED Provider: Clayton Doe APRN - HOLLIE I have evaluated this patient on my own, per my scope of practice with an attending physician available for consultation. CHIEF COMPLAINT Chief Complaint Patient presents with Wrist Injury Fell down 3 steps and injured left wrist and arm/shoulder good pulses no deformity HISTORY OF PRESENT ILLNESS (Location/Symptom, Timing/Onset, Context/Setting, Quality, Duration, Modifying Factors, Severity) Note limiting factors. I wore appropriate PPE for the entirety of this encounter. HPI Raiza Carey is a 57 y.o. who presents to the emergency department with chief complaint of a mechanical fall. Patient fell down 3 steps today and injured her left hand, wrist, shoulder. Denies head injury denies neck or back pain. She took Tylenol prior to arrival she states she is fine with just Tylenol for pain. Nursing Notes were reviewed. Limitations to history: None Outside historians: None REVIEW OF SYSTEMS Review of Systems Constitutional: Negative for activity change, appetite change, chills and fever. HENT: Negative for congestion, nosebleeds, sinus pain and trouble swallowing. Eyes: Negative for pain and visual disturbance. Respiratory: Negative for cough, chest tightness and shortness of breath. Cardiovascular: Negative for chest pain. Gastrointestinal: Negative for abdominal pain, diarrhea, nausea and vomiting. Genitourinary: Negative for dysuria, hematuria, pelvic pain, vaginal bleeding, vaginal discharge and vaginal pain. Musculoskeletal: Positive for arthralgias and myalgias. Negative for back pain, gait problem and neck stiffness. Skin: Negative for rash and wound. Neurological: Negative for syncope, weakness, light-headedness and headaches. Hematological: Negative for adenopathy. Psychiatric/Behavioral: Negative for agitation and confusion. All other systems reviewed and are negative. Pertinent positives and negatives as per HPI. PAST MEDICAL HISTORY Past Medical History: Diagnosis Date Anxiety Arthritis Chest pain Depression Diabetic nephropathy (CMS/HCC) (HCC) Elevated transaminase level Fatigue GERD (gastroesophageal reflux disease) Headache(784.0) Hemorrhoids Hyperlipidemia Hypertension Low back pain Neuropathic pain Obesity DONNA (obstructive sleep apnea) Rectal bleed Right leg weakness Trochanteric bursitis of left hip Bilateral Type II or unspecified type diabetes mellitus without mention of complication, not stated as uncontrolled (HCC) Uncontrolled type 2 diabetes mellitus with complication 02/19/2015 SURGICAL HISTORY Past Surgical History: Procedure Laterality Date CARDIAC CATHETERIZATION 06/03/2018 CARPAL TUNNEL RELEASE CHOLECYSTECTOMY COLONOSCOPY 2011 ENDOMETRIAL ABLATION HERNIA REPAIR TONSILLECTOMY AND ADENOIDECTOMY (HISTORICAL) CURRENT MEDICATIONS Discharge Medication List as of 01/14/2023 11:58 PM CONTINUE these medications which have NOT CHANGED Details albuterol 108 (90 Base) MCG/ACT inhaler Inhale 108 puffs every 6 hours as needed., Starting Rianna 08/20/2022, Historical Med aspirin 81 MG EC tablet Take 81 mg by mouth daily., Historical Med buPROPion XL (Wellbutrin XL) 300 MG 24 hr tablet Take 300 mg by mouth daily. Do not crush, chew, or split., Historical Med busPIRone (Buspar) 10 MG tablet Take 10 mg by mouth 2 times daily., Historical Med empagliflozin (Jardiance) 25 MG Take 1 tablet (25 mg) by mouth daily., Starting Wed12/09/2022, Normal HumuLIN R U-500 KWIKPEN 500 UNIT/ML CONCENTRATED injection Inject under the skin 3 times daily (before meals). 160 units at breakfast, 30 units with lunch and 120 units with dinner, Starting Wed10/20/2022, Historical Med hydrOXYzine HCl (Atarax) 25 MG tablet Take 25 mg by mouth every 8 hours as needed., Starting Wed09/07/2022, Historical Med labetalol (Normodyne) 100 MG tablet Take 100 mg by mouth in the morning and 100 mg in the evening., Historical Med metFORMIN (Glucophage) 1000 MG tablet Take 1,000 mg by mouth in the morning and 1,000 mg in the evening., Starting Wed11/03/2022, Historical Med Unifine Pentips 31G X 8 MM misc Historical Med ALLERGIES Cat hair extract and Pollen extract FAMILY HISTORY Family History Problem Relation Name Age of Onset Diabetes Mother Heart disease Father Cancer Father prostate High Blood Pressure Father Other ([id number]) Sister TBI Depression Mother Substance Abuse Brother Heart disease Mother Other ([id number]) Mother Depression Brother SOCIAL HISTORY Social History Socioeconomic History Marital status: Tobacco Use Smoking status: Former Packs/day: 2.00 Types: Cigarettes Quit date: 09/01/2013 Years since quittin.3 Smokeless tobacco: Never Substance and Sexual Activity Alcohol use: Not Currently Alcohol/week: 0.0 standard drinks of alcohol Drug use: No Social Determinants of Health Financial Resource Strain: High Risk (12/30/2022) Overall Financial Resource Strain (CARDIA) Difficulty of Paying Living Expenses: Very hard Transportation Needs: No Transportation Needs (12/30/2022) PRAPARE - Transportation Lack of Transportation (Medical): No Lack of Transportation (Non-Medical): No SCREENINGS PHYSICAL EXAM ED Triage Vitals [01/14/23 2153] Temp Heart Rate Resp BP 36 C (96.8 F) 80 -- -- SpO2 Temp Source Heart Rate Source Patient Position 95 % Temporal Monitor -- BP Location FiO2 (%) -- -- Physical Exam Vitals and nursing note reviewed. Constitutional: General: She is not in acute distress. Appearance: Normal appearance. She is not ill-appearing or toxic-appearing. HENT: Head: Normocephalic and atraumatic. Right Ear: External ear normal. Left Ear: External ear normal. Mouth/Throat: Mouth: Mucous membranes are moist. Pharynx: Oropharynx is clear. Eyes: Extraocular Movements: Extraocular movements intact. Conjunctiva/sclera: Conjunctivae normal. Pupils: Pupils are equal, round, and reactive to light. Musculoskeletal: Cervical back: Normal range of motion and neck supple. No rigidity or tenderness. Comments: Mild snuffbox tenderness and pain with axial loading, the left hand no obvious deformity or swelling radial pulse 2+. Mild pain with range of motion of the wrist no obvious deformity no pain with range of motion of the elbow, mild pain with range of motion of the shoulder no obvious deformity or dislocation no clavicular tenderness. Lymphadenopathy: Cervical: No cervical adenopathy. Skin: General: Skin is warm and dry. Capillary Refill: Capillary refill takes less than 2 seconds. Coloration: Skin is not jaundiced or pale. Findings: No bruising. Neurological: General: No focal deficit present. Mental Status: She is alert and oriented to person, place, and time. Mental status is at baseline. Psychiatric: Mood and Affect: Mood normal. DIAGNOSTIC RESULTS Procedures/EKG: EKG was reviewed by myself. [facility] RADIOLOGY (Per Emergency Physician): Interpretation per the Radiologist below, if available at the time of this note: No orders to display ED BEDSIDE ULTRASOUND: Performed by ED Physician - none LABS: Labs Reviewed - No data to display All other labs were within normal range or not returned as of this dictation. EMERGENCY DEPARTMENT COURSE and DIFFERENTIAL DIAGNOSIS/MDM: Vitals: Vitals: 01/14/23 2153 Pulse: 80 Temp: 36 C (96.8 F) TempSrc: Temporal SpO2: 95% Diagnoses as of 01/15/23 0108 Fall, initial encounter Left hand pain Left wrist pain Left shoulder pain, unspecified chronicity The patient presented with chief complaint of with chief complaint of a mechanical fall. Patient fell down 3 steps today and injured her left hand, wrist, shoulder. Denies head injury denies neck or back pain. She took Tylenol prior to arrival she states she is fine with just Tylenol for pain.. The differential diagnosis associated with this patient's presentation includes thumb sprain, thumb fracture, wrist sprain, wrist fracture, internal derangement of shoulder, shoulder sprain, shoulder fracture. Our workup consisted of ordering/reviewing: Three-view x-ray left hand and wrist, x-rays left shoulder. Diagnostic tests considered but not performed: None To aid in management, I performed an independent interpretation of Xray(s) eloped prior to getting her x-rays. I discussed their care with none. Consideration for escalation of care with: none. The patient will be Eloped. Patient is in agreement with this plan. Medications - No data to display REVAL: CRITICAL CARE TIME None CONSULTS: None PROCEDURES: Unless otherwise noted below, none Procedures Patients symptoms are consistent with sepsis, severe sepsis, or septic shock (If yes use .sepsiscoremeasure): no FINAL IMPRESSION 1. Fall, initial encounter 2. Left hand pain 3. Left wrist pain 4. Left shoulder pain, unspecified chronicity DISPOSITION Eloped 01/14/2023 11:57:47 PM PATIENT REFERRED TO: No follow-up provider specified. DISCHARGE MEDICATIONS: Discharge Medication List as of 01/14/2023 11:58 PM (Comment: Please note this report has been produced using speech recognition software and may contain errors related to that system including errors in grammar, punctuation, and spelling, as well as words and phrases that may be inappropriate. If there are any questions or concerns please feel free to contact the dictating provider for clarification.) NICOLE Austin CNP (electronically signed) Emergency Medicine Provider NICOLE Austin CNP 01/15/23 0108 documented in this encounter [facility] 01-14-2023 Physician Emergency department Note EMERGENCY DEPARTMENT ENCOUNTER Pt Name: Raiza Carey Birthdate 1965 Date of evaluation: 01/14/2023 ED Provider: Clayton Brook, BACTERIOLOGIST DAIRY - [employer]TERN [employer] I have evaluated this patient on my own, per my scope of practice with an attending physician available for consultation. CHIEF COMPLAINT Chief Complaint Patient presents with Wrist Injury Fell down 3 steps and injured left wrist and arm/shoulder good pulses no deformity HISTORY OF PRESENT ILLNESS (Location/Symptom, Timing/Onset, Context/Setting, Quality, Duration, Modifying Factors, Severity) Note limiting factors. I wore appropriate PPE for the entirety of this encounter. HPI Raiza Carey is a 57 y.o. who presents to the emergency department with chief complaint of a mechanical fall. Patient fell down 3 steps today and injured her left hand, wrist, shoulder. Denies head injury denies neck or back pain. She took Tylenol prior to arrival she states she is fine with just Tylenol for pain. Nursing Notes were reviewed. Limitations to history: None Outside historians: None REVIEW OF SYSTEMS Review of Systems Constitutional: Negative for activity change, appetite change, chills and fever. HENT: Negative for congestion, nosebleeds, sinus pain and trouble swallowing. Eyes: Negative for pain and visual disturbance. Respiratory: Negative for cough, chest tightness and shortness of breath. Cardiovascular: Negative for chest pain. Gastrointestinal: Negative for abdominal pain, diarrhea, nausea and vomiting. Genitourinary: Negative for dysuria, hematuria, pelvic pain, vaginal bleeding, vaginal discharge and vaginal pain. Musculoskeletal: Positive for arthralgias and myalgias. Negative for back pain, gait problem and neck stiffness. Skin: Negative for rash and wound. Neurological: Negative for syncope, weakness, light-headedness and headaches. Hematological: Negative for adenopathy. Psychiatric/Behavioral: Negative for agitation and confusion. All other systems reviewed and are negative. Pertinent positives and negatives as per HPI. PAST MEDICAL HISTORY Past Medical History: Diagnosis Date Anxiety Arthritis Chest pain Depression Diabetic nephropathy (CMS/HCC) (HCC) Elevated transaminase level Fatigue GERD (gastroesophageal reflux disease) Headache(784.0) Hemorrhoids Hyperlipidemia Hypertension Low back pain Neuropathic pain Obesity DONNA (obstructive sleep apnea) Rectal bleed Right leg weakness Trochanteric bursitis of left hip Bilateral Type II or unspecified type diabetes mellitus without mention of complication, not stated as uncontrolled (HCC) Uncontrolled type 2 diabetes mellitus with complication 02/19/2015 SURGICAL HISTORY Past Surgical History: Procedure Laterality Date CARDIAC CATHETERIZATION 06/03/2018 CARPAL TUNNEL RELEASE CHOLECYSTECTOMY COLONOSCOPY 2012 ENDOMETRIAL ABLATION HERNIA REPAIR TONSILLECTOMY AND ADENOIDECTOMY (HISTORICAL) CURRENT MEDICATIONS Discharge Medication List as of 01/14/2023 11:58 PM CONTINUE these medications which have NOT CHANGED Details albuterol 108 (90 Base) MCG/ACT inhaler Inhale 108 puffs every 6 hours as needed., Starting Wed08/20/2022, Historical Med aspirin 81 MG EC tablet Take 81 mg by mouth daily., Historical Med buPROPion XL (Wellbutrin XL) 300 MG 24 hr tablet Take 300 mg by mouth daily. Do not crush, chew, or split., Historical Med busPIRone (Buspar) 10 MG tablet Take 10 mg by mouth 2 times daily., Historical Med empagliflozin (Jardiance) 25 MG Take 1 tablet (25 mg) by mouth daily., Starting Wed12/09/2022, Normal HumuLIN R U-500 KWIKPEN 500 UNIT/ML CONCENTRATED injection Inject under the skin 3 times daily (before meals). 160 units at breakfast, 30 units with lunch and 120 units with dinner, Starting Wed10/20/2022, Historical Med hydrOXYzine HCl (Atarax) 25 MG tablet Take 25 mg by mouth every 8 hours as needed., Starting Wed09/07/2022, Historical Med labetalol (Normodyne) 100 MG tablet Take 100 mg by mouth in the morning and 100 mg in the evening., Historical Med metFORMIN (Glucophage) 1000 MG tablet Take 1,000 mg by mouth in the morning and 1,000 mg in the evening., Starting Wed11/03/2022, Historical Med Unifine Pentips 31G X 8 MM misc Historical Med ALLERGIES Cat hair extract and Pollen extract FAMILY HISTORY Family History Problem Relation Name Age of Onset Diabetes Mother Heart disease Father Cancer Father prostate High Blood Pressure Father Other ([id number]) Sister TBI Depression Mother Substance Abuse Brother Heart disease Mother Other ([id number]) Mother Depression Brother SOCIAL HISTORY Social History Socioeconomic History Marital status: Tobacco Use Smoking status: Former Packs/day: 2.00 Types: Cigarettes Quit date: 09/01/2013 Years since quittin.3 Smokeless tobacco: Never Substance and Sexual Activity Alcohol use: Not Currently Alcohol/week: 0.0 standard drinks of alcohol Drug use: No Social Determinants of Health Financial Resource Strain: High Risk (12/30/2022) Overall Financial Resource Strain (CARDIA) Difficulty of Paying Living Expenses: Very hard Transportation Needs: No Transportation Needs (12/30/2022) PRAPARE - Transportation Lack of Transportation (Medical): No Lack of Transportation (Non-Medical): No SCREENINGS PHYSICAL EXAM ED Triage Vitals [01/14/23 2153] Temp Heart Rate Resp BP 36 C (96.8 F) 80 -- -- SpO2 Temp Source Heart Rate Source Patient Position 95 % Temporal Monitor -- BP Location FiO2 (%) -- -- Physical Exam Vitals and nursing note reviewed. Constitutional: General: She is not in acute distress. Appearance: Normal appearance. She is not ill-appearing or toxic-appearing. HENT: Head: Normocephalic and atraumatic. Right Ear: External ear normal. Left Ear: External ear normal. Mouth/Throat: Mouth: Mucous membranes are moist. Pharynx: Oropharynx is clear. Eyes: Extraocular Movements: Extraocular movements intact. Conjunctiva/sclera: Conjunctivae normal. Pupils: Pupils are equal, round, and reactive to light. Musculoskeletal: Cervical back: Normal range of motion and neck supple. No rigidity or tenderness. Comments: Mild snuffbox tenderness and pain with axial loading, the left hand no obvious deformity or swelling radial pulse 2+. Mild pain with range of motion of the wrist no obvious deformity no pain with range of motion of the elbow, mild pain with range of motion of the shoulder no obvious deformity or dislocation no clavicular tenderness. Lymphadenopathy: Cervical: No cervical adenopathy. Skin: General: Skin is warm and dry. Capillary Refill: Capillary refill takes less than 2 seconds. Coloration: Skin is not jaundiced or pale. Findings: No bruising. Neurological: General: No focal deficit present. Mental Status: She is alert and oriented to person, place, and time. Mental status is at baseline. Psychiatric: Mood and Affect: Mood normal. DIAGNOSTIC RESULTS Procedures/EKG: EKG was reviewed by myself. Physician EKG interpretation can be found in [facility] RADIOLOGY (Per Emergency Physician): Interpretation per the Radiologist below, if available at the time of this note: No orders to display ED BEDSIDE ULTRASOUND: Performed by ED Physician - none LABS: Labs Reviewed - No data to display All other labs were within normal range or not returned as of this dictation. EMERGENCY DEPARTMENT COURSE and DIFFERENTIAL DIAGNOSIS/MDM: Vitals: Vitals: 01/14/23 2153 Pulse: 80 Temp: 36 C (96.8 F) TempSrc: Temporal SpO2: 95% Diagnoses as of 01/15/23107 Fall, initial encounter Left hand pain Left wrist pain Left shoulder pain, unspecified chronicity The patient presented with chief complaint of with chief complaint of a mechanical fall. Patient fell down 3 steps today and injured her left hand, wrist, shoulder. Denies head injury denies neck or back pain. She took Tylenol prior to arrival she states she is fine with just Tylenol for pain.. The differential diagnosis associated with this patient's presentation includes thumb sprain, thumb fracture, wrist sprain, wrist fracture, internal derangement of shoulder, shoulder sprain, shoulder fracture. Our workup consisted of ordering/reviewing: Three-view x-ray left hand and wrist, x-rays left shoulder. Diagnostic tests considered but not performed: None To aid in management, I performed an independent interpretation of Xray(s) eloped prior to getting her x-rays. I discussed their care with none. Consideration for escalation of care with: none. The patient will be Eloped. Patient is in agreement with this plan. Medications - No data to display REVAL: CRITICAL CARE TIME None CONSULTS: None PROCEDURES: Unless otherwise noted below, none Procedures Patients symptoms are consistent with sepsis, severe sepsis, or septic shock (If yes use .sepsiscoremeasure): no FINAL IMPRESSION 1. Fall, initial encounter 2. Left hand pain 3. Left wrist pain 4. Left shoulder pain, unspecified chronicity DISPOSITION Eloped 01/14/2023 11:57:47 PM PATIENT REFERRED TO: No follow-up provider specified. DISCHARGE MEDICATIONS: Discharge Medication List as of 01/14/2023 11:58 PM (Comment: Please note this report has been produced using speech recognition software and may contain errors related to that system including errors in grammar, punctuation, and spelling, as well as words and phrases that may be inappropriate. If there are any questions or concerns please feel free to contact the dictating provider for clarification.) NICOLE Austin CNP (electronically signed) Emergency Medicine Provider NICOLE Austin CNP 01/15/23107 [facility] 12-09-2022 Evaluation + Plan note Associated Problem(s): Lip swelling Unsure if r/t herpes vs lisinopril. Swelling no worse at this time. No difficulty swallowing, no shortness of breath. Continue acyclovir. Do not take lisinopril. Monitor blood pressure at home. Send update In 2 days. Consider antibiotic if not improving d/t associated left sided cervical adenopathy (only if not improving) [facility] 12-09-2022 Evaluation + Plan note Associated Problem(s): Depression Stable. Managed by psych [facility] 12-09-2022 Evaluation + Plan note Associated Problem(s): Anxiety Stable. Managed by psych [facility] 12-09-2022 Miscellaneous Notes Associated Problem(s): Lip swelling Unsure if r/t herpes vs lisinopril. Swelling no worse at this time. No difficulty swallowing, no shortness of breath. Continue acyclovir. Do not take lisinopril. Monitor blood pressure at home. Send update In 2 days. Consider antibiotic if not improving d/t associated left sided cervical adenopathy (only if not improving) Associated Problem(s): Depression Stable. Managed by psych Associated Problem(s): Anxiety Stable. Managed by psych Associated Problem(s): Hyperlipidemia LDL goal <70 Controlled. Not on medications currently.? Associated Problem(s): Essential hypertension Controlled. Continue labetalol 100 mg every 12 hours. Associated Problem(s): Chronic obstructive pulmonary disease (HCC) Controlled. Continue cpap Associated Problem(s): Type 2 diabetes mellitus with polyneuropathy (HCC) Controlled. Hemoglobin A1c 7.2 (10/2022), continue jardiance 25 mg daily, Humulin R U-500 3 times daily as prescribed. Metformin 1000 mg twice daily documented in this encounter [facility] 12-09-2022 Evaluation + Plan note Associated Problem(s): Hyperlipidemia LDL goal <70 Controlled. Not on medications currently.? [facility] 12-09-2022 Evaluation + Plan note Associated Problem(s): Essential hypertension Controlled. Continue labetalol 100 mg every 12 hours. [facility] 12-09-2022 Evaluation + Plan note Associated Problem(s): Chronic obstructive pulmonary disease (HCC) Controlled. Continue cpap [facility] 12-09-2022 Evaluation + Plan note Associated Problem(s): Type 2 diabetes mellitus with polyneuropathy (HCC) Controlled. Hemoglobin A1c 7.2 (10/2022), continue jardiance 25 mg daily, Humulin R U-500 3 times daily as prescribed. Metformin 1000 mg twice daily [facility] 12-09-2022 History of Present illness Narrative Images from the original note were not included. 12/09/2022 Melanie Restrepo (: 1965) is a 57 y.o. female , New patient, here for evaluation of the following chief complaint(s): Establish Care, Health Maintenance (Hep C--declines, HIV--declines, Cervical--does not remember when the last pap was, Colon--last she thinks was in 2019-- Yaakov, Dm eye--had a few months ago manjeet in [place], Dental--hasn't been she has dentures, Hep B--declines, MMR--had vaccine as a kid, Pneumo--would need at pharmacy, Shingles--would need at pharmacy, COVID 3--has had 3--record updated.), and ER Follow-up (Was in ED on Wednesday with swelling on her lip and jaw they told her was an allergic reaction to the lisinopril. She is still having some swelling and is not sure if there is something else going on and it maybe wasn't the medication.) ASSESSMENT/PLAN: 1. Lip swelling Assessment & Plan: Unsure if r/t herpes vs lisinopril. Swelling no worse at this time. No difficulty swallowing, no shortness of breath. Continue acyclovir. Do not take lisinopril. Monitor blood pressure at home. Send update In 2 days. Consider antibiotic if not improving d/t associated left sided cervical adenopathy (only if not improving) 2. Type 2 diabetes mellitus with polyneuropathy (HCC) Assessment & Plan: Controlled. Hemoglobin A1c 7.2 (10/2022), continue jardiance 25 mg daily, Humulin R U-500 3 times daily as prescribed. Metformin 1000 mg twice daily Orders: - Microalbumin / creatinine urine ratio - Diabetes Foot Exam - empagliflozin (Jardiance) 25 MG; Take 1 tablet (25 mg) by mouth daily., Starting 12/09/2022, Normal 3. Chronic obstructive pulmonary disease, unspecified COPD type (HCC) Assessment & Plan: Controlled. Continue cpap 4. Essential hypertension Assessment & Plan: Controlled. Continue labetalol 100 mg every 12 hours. 5. Hyperlipidemia LDL goal <70 Assessment & Plan: Controlled. Not on medications currently.? 6. Anxiety Assessment & Plan: Stable. Managed by psych Follow up in about 2 weeks (around 12/23/2022). SUBJECTIVE/OBJECTIVE: HPI - Melanie Restrepo presents as new patient, previous primary care provider Ariel in [place], last seen 6 months by previous provider. Specialists/other providers? no Chief complaint(s): Establish Care, Health Maintenance (Hep C--declines, HIV--declines, Cervical--does not remember when the last pap was, Colon--last she thinks was in 2019-- Yaakov, Dm eye--had a few months ago jeaniet in [place], Dental--hasn't been she has dentures, Hep B--declines, MMR--had vaccine as a kid, Pneumo--would need at pharmacy, Shingles--would need at pharmacy, COVID 3--has had 3--record updated.), and ER Follow-up (Was in ED on Wednesday with swelling on her lip and jaw they told her was an allergic reaction to the lisinopril. She is still having some swelling and is not sure if there is something else going on and it maybe wasn't the medication.) ED follow up -was given antiviral for suspected herpes, stopped lisinopril as unsure if side effect from that. Blood pressure has been ok without thus far- checks at home. 2018 heart cath- good, stress test couple years ago good 10/2022 Hemoglobin a1c 7.2 05/2022 Lipid tri-128, t chol-124 Ldl-58 Hdl-40, 11/07/2022 Urine microal/creat 515mg/g -04/14/2021 1090 mg/g 11/07/2022- cbc, cmp normal Umbilical Hernia surgery in 10/2022- went well. [facility] Hot flashes at bedtime. Occasional Needs dexcom but needs possible new script- she states she has to check with [employer] insurance. Anxiety/depression- reports controlled. Dr. [facility]- [place]. [facility]- previous pharmacy. Past Medical History: Diagnosis Date Anxiety Arthritis Chest pain Depression Diabetic nephropathy (CMS/HCC) (HCC) Elevated transaminase level Fatigue GERD (gastroesophageal reflux disease) Headache(784.0) Hemorrhoids Hyperlipidemia Hypertension Low back pain Neuropathic pain Obesity DONNA (obstructive sleep apnea) Rectal bleed Right leg weakness Trochanteric bursitis of left hip Bilateral Type II or unspecified type diabetes mellitus without mention of complication, not stated as uncontrolled (HCC) Uncontrolled type 2 diabetes mellitus with complication 02/19/2015 Past Surgical History: Procedure Laterality Date CARDIAC CATHETERIZATION 06/03/2018 CARPAL TUNNEL RELEASE CHOLECYSTECTOMY COLONOSCOPY 2011 ENDOMETRIAL ABLATION HERNIA REPAIR TONSILLECTOMY AND ADENOIDECTOMY (HISTORICAL) Family History Problem Relation Name Age of Onset Diabetes Mother Heart disease Father Cancer Father prostate High Blood Pressure Father Other ([id number]) Sister TBI Depression Mother Substance Abuse Brother Heart disease Mother Other ([id number]) Mother Depression Brother Social History Socioeconomic History Marital status: Spouse name: Not on file Number of children: Not on file Years of education: Not on file Highest education level: Not on file Occupational History Not on file Tobacco Use Smoking status: Former Packs/day: 2.00 Types: Cigarettes Quit date: 09/01/2013 Years since quittin.2 Smokeless tobacco: Never Substance and Sexual Activity Alcohol use: Not Currently Alcohol/week: 0.0 standard drinks Drug use: No Sexual activity: Not on file Other Topics Concern Not on file Social History Narrative Not on file Social Determinants of Health Financial Resource Strain: Not on file Food Insecurity: Not on file Transportation Needs: Not on file Physical Activity: Not on file Stress: Not on file Social Connections: Not on file Intimate Partner Violence: Not on file Housing Stability: Not on file Prior to Admission medications Medication Sig Start Date End Date Taking? Authorizing Provider acyclovir (Zovirax) 400 MG tablet Take 1 tablet (400 mg) by mouth 3 times daily for 7 days. 12/07/22 12/14/22 Yes Catarino A Gombash, DO albuterol 108 (90 Base) MCG/ACT inhaler Inhale 108 puffs every 6 hours as needed. 08/20/22 Yes Historical Provider, aspirin 81 MG EC tablet Take 81 mg by mouth daily. Yes Historical Provider, buPROPion XL (Wellbutrin XL) 300 MG 24 hr tablet Take 300 mg by mouth daily. Do not crush, chew, or split. Yes Historical Provider, busPIRone (Buspar) 10 MG tablet Take 10 mg by mouth 2 times daily. Yes Historical Provider, empagliflozin (Jardiance) 25 MG Take 25 mg by mouth. 03/06/22 Yes Historical Provider, FLUoxetine (PROzac) 20 MG tablet Take by mouth daily. Yes Historical Provider, HumuLIN R U-500 KWIKPEN 500 UNIT/ML CONCENTRATED injection Inject under the skin 3 times daily (before meals). 160 units at breakfast, 30 units with lunch and 120 units with dinner 10/20/22 Yes Historical Provider, hydrOXYzine HCl (Atarax) 25 MG tablet Take 25 mg by mouth every 8 hours as needed. 09/07/22 Yes Historical Provider, labetalol (Normodyne) 100 MG tablet Take 100 mg by mouth in the morning and 100 mg in the evening. Yes Historical Provider, metFORMIN (Glucophage) 1000 MG tablet Take 1,000 mg by mouth in the morning and 1,000 mg in the evening. 11/03/22 Yes Historical Provider, nortriptyline (Pamelor) 50 MG capsule Take 50 mg by mouth Nightly. Yes Historical Provider, MD Alfaro Pentips 31G X 8 MM misc 10/20/22 Yes Historical Provider, Folic Acid-Cholecalciferol 1-2000 MG-UNIT tablet Take 1 capsule by mouth Every 24 hours. Historical Provider, lisinopril 40 MG tablet Take 40 mg by mouth daily. Historical Provider, Albuterol Sulfate 108 (90 Base) MCG/ACT aerosol powder Administer 108 Inhalation. into each nostril in the morning and 108 Inhalation. at noon and 108 Inhalation. in the evening and 108 Inhalation. before bedtime. 12/09/22 Historical Provider, Health Maintenance Due Topic Date Due Hepatitis B Vaccines (1 of 3 - 3-dose series) Never done HIV Screening Never done Colorectal Cancer Screening Never done MMR Vaccines (1 of 1 - Standard series) Never done Pneumococcal Vaccine: Pediatrics (0 to 5 Years) and At-Risk Patients (6 to 64 Years) (1 - PCV) Never done Diabetes: Foot Exam Never done Diabetes: Retinopathy Screening Never done Diabetes: Dental Exam Never done Depresssion Monitoring Never done Hepatitis C Screening Never done Cervical Cancer Screening Never done Zoster Vaccines (1 of 2) Never done Diabetes: Hemoglobin A1C 06/30/2021 COVID-19 Vaccine (3 - Booster for Pfizer series) 01/01/2022 Lipid Panel 04/16/2022 Diabetes: Urine Protein Screening 04/16/2022 Review of Systems Constitutional: Negative for activity change, appetite change, chills, fatigue and fever. HENT: Positive for congestion (occasional) and mouth sores. Negative for dental problem, drooling, ear discharge, postnasal drip, rhinorrhea, sinus pressure, sinus pain, sneezing, sore throat and trouble swallowing. Respiratory: Negative for cough, chest tightness, shortness of breath and wheezing. Cardiovascular: Negative for chest pain, palpitations and leg swelling. Gastrointestinal: Positive for constipation and diarrhea. Negative for abdominal pain, nausea and vomiting. Chronic intermittent w/ colitis Genitourinary: Negative for difficulty urinating, menstrual problem and vaginal bleeding. Musculoskeletal: Positive for arthralgias. , hips, Osteoarthritis Skin: Negative. Neurological: Negative for dizziness and light-headedness. Psychiatric/Behavioral: Positive for sleep disturbance (hot). Negative for dysphoric mood. Reports stable. Vitals: 12/09/22 1116 BP: 110/62 Pulse: 75 SpO2: 98% Weight: (!) 309 lb (140 kg) Height: 5' 5.5 (1.664 m) Physical Exam Constitutional: General: She is not in acute distress. Appearance: Normal appearance. She is obese. She is not ill-appearing. HENT: Head: Normocephalic and atraumatic. Right Ear: Tympanic membrane normal. Left Ear: Tympanic membrane normal. Nose: No congestion or rhinorrhea. Mouth/Throat: Mouth: Mucous membranes are moist. Pharynx: Oropharynx is clear. Comments: Swelling of lower left side of lip, tenderness along mandible, Eyes: Conjunctiva/sclera: Conjunctivae normal. Cardiovascular: Rate and Rhythm: Normal rate and regular rhythm. Pulmonary: Effort: Pulmonary effort is normal. Breath sounds: Normal breath sounds. Musculoskeletal: Cervical back: No rigidity. Normal range of motion. Lymphadenopathy: Cervical: Cervical adenopathy (left) present. Left cervical: Deep cervical adenopathy present. Skin: General: Skin is warm and dry. Neurological: Mental Status: She is alert and oriented to person, place, and time. An electronic signature was used to authenticate this note. NICOLE Easley CNP 12/09/2022 11:34 AM documented in this encounter [facility] 12-09-2022 Instructions NICOLE Easley CNP - 12/09/2022 11:20 AM EDT night or Wednesday early am with update of condition and blood pressure readings. No lisinopril for now. documented in this encounter [facility] 12-07-2022 Hospital Discharge instructions Catarino Arce DO - 12/07/2022 10:24 AM EDT Stop taking your lisinopril. You should never take an CLAUDY inhibitor again as you may experience similar or worse swelling each time you take them. Discussed with your PCP on Wednesday about additional blood pressure medication regimen. The following attachments cannot be sent through Care Everywhere.Angioedema Caused by CLAUDY Inhibitor Medicines (Maldivian)Cold Sores ED (Maldivian)documented in this encounter [facility] 12-07-2022 Emergency department Note EMERGENCY DEPARTMENT ENCOUNTER Pt Name: Melanie Restrepo Birthdate 1965 Date of evaluation: 12/07/2022 ED Provider: Catarino Arce DO CHIEF COMPLAINT Chief Complaint Patient presents with Facial Swelling HISTORY OF PRESENT ILLNESS (Location/Symptom, Timing/Onset, Context/Setting, Quality, Duration, Modifying Factors, Severity) Note limiting factors. I wore appropriate PPE for the entirety of this encounter. HPI Melanie Restrepo is a 57 y.o. female who presents to the emergency department with lower lip swelling that she noticed this morning. States she is having difficult time eating or drinking this morning due to the lip swelling. Does not feel any swelling in her throat. No shortness of breath or inability tolerate secretions. Patient does take lisinopril. No other pain throughout the lip. Patient does have a small vesicular lesion to the lower lip with mild tenderness Nursing Notes were reviewed. REVIEW OF SYSTEMS 14 systems reviewed and otherwise acutely negative except as in the [place]. PAST MEDICAL HISTORY Past Medical History: Diagnosis Date Anxiety Arthritis Chest pain Depression Diabetic nephropathy (CMS/HCC) (HCC) Elevated transaminase level Fatigue GERD (gastroesophageal reflux disease) Headache(784.0) Hemorrhoids Hyperlipidemia Hypertension Low back pain Neuropathic pain Obesity DONNA (obstructive sleep apnea) Rectal bleed Right leg weakness Trochanteric bursitis of left hip Bilateral Type II or unspecified type diabetes mellitus without mention of complication, not stated as uncontrolled (HCC) Uncontrolled type 2 diabetes mellitus with complication 02/19/2015 SURGICAL HISTORY Past Surgical History: Procedure Laterality Date CARDIAC CATHETERIZATION 06/03/2018 CARPAL TUNNEL RELEASE CHOLECYSTECTOMY COLONOSCOPY 2011 ENDOMETRIAL ABLATION TONSILLECTOMY AND ADENOIDECTOMY (HISTORICAL) CURRENT MEDICATIONS Discharge Medication List as of 12/07/2022 10:25 AM CONTINUE these medications which have NOT CHANGED Details empagliflozin (Jardiance) 25 MG Take 25 mg by mouth., Starting Wed03/06/2022, Historical Med albuterol 108 (90 Base) MCG/ACT inhaler Inhale 108 puffs every 6 hours as needed., Starting Wed08/20/2022, Historical Med Albuterol Sulfate 108 (90 Base) MCG/ACT aerosol powder Administer 108 Inhalation. into each nostril in the morning and 108 Inhalation. at noon and 108 Inhalation. in the evening and 108 Inhalation. before bedtime., Historical Med Folic Acid-Cholecalciferol 1-2000 MG-UNIT tablet Take 1 capsule by mouth Every 24 hours., Historical Med HumuLIN R U-500 KWIKPEN 500 UNIT/ML CONCENTRATED injection Inject 500 Units under the skin in the morning and 500 Units at noon and 500 Units in the evening. Inject before meals., Starting Wed10/20/2022, Historical Med hydrOXYzine HCl (Atarax) 25 MG tablet Take 25 mg by mouth 2 times daily as needed., Starting 09/07/2022, Historical Med labetalol (Normodyne) 100 MG tablet Take 100 mg by mouth in the morning and 100 mg in the evening., Historical Med metFORMIN (Glucophage) 1000 MG tablet Take 100 mg by mouth in the morning and 100 mg in the evening., Starting Tu11/03/2022, Historical Med ALLERGIES Patient has no known allergies. FAMILY HISTORY Family History Problem Relation Name Age of Onset Diabetes Mother Heart disease Father Cancer Father prostate High Blood Pressure Father Other ([id number]) Sister TBI Depression Mother Substance Abuse Brother Heart disease Mother Other ([id number]) Mother Depression Brother SOCIAL HISTORY Social History Socioeconomic History Marital status: Single Tobacco Use Smoking status: Former Packs/day: 2.00 Types: Cigarettes Quit date: 09/01/2013 Years since quittin.2 Smokeless tobacco: Never Substance and Sexual Activity Alcohol use: Not Currently Alcohol/week: 0.0 standard drinks Drug use: No SCREENINGS PHYSICAL EXAM ED Triage Vitals [12/07/22 0834] Temp Heart Rate Resp BP 36.9 C (98.4 F) 87 18 (!) 174/96 SpO2 Temp Source Heart Rate Source Patient Position 94 % Temporal Monitor -- BP Location FiO2 (%) -- -- CONSTITUTIONAL: AOx4, no apparent distress, appears stated age HEAD: normocephalic, atraumatic EYES: PERRL, EOMI ENT: moist mucous membranes, uvula midline, no tongue swelling or edema posterior oropharynx NECK: supple, symmetric BACK: symmetric LUNGS: clear to auscultation, no stridor CARDIOVASCULAR: regular rate and rhythm, no murmurs, rubs or gallops ABDOMEN: soft, non-tender, non-distended with normal active bowel sounds : deferred NEUROLOGIC: MAEx4, no focal sensory or motor deficits MUSCULOSKELETAL: no clubbing, cyanosis or edema, isolated edema lower lip left greater than right SKIN: no exposed rash, cysts 1 mm vesicular appearing lesion mid lower lip DIAGNOSTIC RESULTS Procedures/EKG: EKG was reviewed by myself. Physician EKG interpretation can be found in [facility] RADIOLOGY (Per Emergency Physician): Interpretation per the Radiologist below, if available at the time of this note: No orders to display ED BEDSIDE ULTRASOUND: Performed by ED Physician - none LABS: Labs Reviewed - No data to display All other labs were within normal range or not returned as of this dictation. EMERGENCY DEPARTMENT COURSE and DIFFERENTIAL DIAGNOSIS/MDM: Vitals: Vitals: 12/07/22 0834 12/07/22 0906 12/07/22 1030 BP: (!) 174/96 (!) 150/70 BP Location: Left arm Patient Position: Lying Pulse: 87 77 Resp: 18 18 Temp: 36.9 C (98.4 F) TempSrc: Temporal SpO2: 94% 95% 97% EMERGENCY DEPARTMENT COURSE and DIFFERENTIAL DIAGNOSIS/MDM: Vitals: Vitals: 12/07/22 0834 12/07/22 0906 12/07/22 1030 BP: (!) 174/96 (!) 150/70 BP Location: Left arm Patient Position: Lying Pulse: 87 77 Resp: 18 18 Temp: 36.9 C (98.4 F) TempSrc: Temporal SpO2: 94% 95% 97% The patient presented with a chief complaint of lower lip swelling. No pain. No known allergen exposure. Patient is on lisinopril. Suspect angioedema induced by her CLAUDY inhibitor.. The differential diagnosis associated with this patient's presentation includes CLAUDY inhibitor angioedema, hereditary angioedema, lower suspicion for bacterial infection as she is not having any pain throughout the mouth. Have a chronic ulceration of the left lower lip which she states its baseline. Does have a small erythematous mildly tender vesicular lesion to the mid lower lip which she states had appeared over the past day. Patient does not have any tongue swelling or posterior oropharynx swelling difficulty breathing or swallowing. Patient does have a mild headache which she was given fluids, please use Benadryl. Patient also given Pepcid. Hold off on steroids as no indication for steroids and CLAUDY inhibitor induced angioedema and the patient is diabetic. She is in agreement with this plan.. We will observe 2 hours Swelling is improving over the past 2 hours after Compazine Benadryl Pepcid fluids in the emergency room. We will start the patient on acyclovir for concerns for a cold sore on the lower lip however I do not feel that is the cause of the swelling. I still think the edema is more likely related to CLAUDY inhibitor induced angioedema. Patient stopped on her CLAUDY inhibitor. Patient will follow-up with PCP Wednesday to discuss alternative antihypertensive medications. Diagnoses as of 12/07/22 1137 Lip swelling Cold sore Angioedema, initial encounter Diagnostic tests considered but not performed: External records reviewed: Diagnostics interpreted by me: none Discussions with other clinicians: none Chronic conditions impacting care: Hypertension Social determinants of health affecting care: none ED Medications managed: Medications sodium chloride 0.9 % bolus 1,000 mL (0 mL IntraVENous Stopped 12/07/22 1016) diphenhydrAMINE (BENADryl) injection 25 mg (25 mg IntraVENous Given 12/07/22 0916) famotidine (Pepcid) injection 20 mg (20 mg IntraVENous Given 12/07/22 0922) prochlorperazine (Compazine) injection 10 mg (10 mg IntraVENous Given 12/07/22 0911) CONSULTS: None PROCEDURES: Unless otherwise noted below, none Procedures Patients symptoms are consistent with sepsis, severe sepsis, or septic shock (If yes use .sepsiscoremeasure): FINAL IMPRESSION 1. Angioedema, initial encounter 2. Lip swelling 3. Cold sore DISPOSITION/PLAN dc PATIENT REFERRED TO: Al Ricketts [facility] [address] [address] Schedule an appointment as soon as possible for a visit DISCHARGE MEDICATIONS: Discharge Medication List as of 12/07/2022 10:25 AM START taking these medications Details acyclovir (Zovirax) 400 MG tablet Take 1 tablet (400 mg) by mouth 3 times daily for 7 days., Starting 12/07/2022, Until Wed12/14/2022, Print (Comment: Please note this report has been produced using speech recognition software and may contain errors related to that system including errors in grammar, punctuation, and spelling, as well as words and phrases that may be inappropriate. If there are any questions or concerns please feel free to contact the dictating provider for clarification.) Catarino Arce DO (electronically signed) Emergency Medicine Provider Catarino Arce DO 12/07/22 1139 L sided facial swelling upon awakening this a.m. documented in this encounter [facility] 12-07-2022 Emergency department Triage note L sided facial swelling upon awakening this a.m. [facility] 12-07-2022 Physician Emergency department Note EMERGENCY DEPARTMENT ENCOUNTER Pt Name: Melanie Restrepo Birthdate 1965 Date of evaluation: 12/07/2022 ED Provider: Catarino Arce DO CHIEF COMPLAINT Chief Complaint Patient presents with Facial Swelling HISTORY OF PRESENT ILLNESS (Location/Symptom, Timing/Onset, Context/Setting, Quality, Duration, Modifying Factors, Severity) Note limiting factors. I wore appropriate PPE for the entirety of this encounter. HPI Melanie Restrepo is a 57 y.o. female who presents to the emergency department with lower lip swelling that she noticed this morning. States she is having difficult time eating or drinking this morning due to the lip swelling. Does not feel any swelling in her throat. No shortness of breath or inability tolerate secretions. Patient does take lisinopril. No other pain throughout the lip. Patient does have a small vesicular lesion to the lower lip with mild tenderness Nursing Notes were reviewed. REVIEW OF SYSTEMS 14 systems reviewed and otherwise acutely negative except as in the [place]. PAST MEDICAL HISTORY Past Medical History: Diagnosis Date Anxiety Arthritis Chest pain Depression Diabetic nephropathy (CMS/HCC) (HCC) Elevated transaminase level Fatigue GERD (gastroesophageal reflux disease) Headache(784.0) Hemorrhoids Hyperlipidemia Hypertension Low back pain Neuropathic pain Obesity DONNA (obstructive sleep apnea) Rectal bleed Right leg weakness Trochanteric bursitis of left hip Bilateral Type II or unspecified type diabetes mellitus without mention of complication, not stated as uncontrolled (HCC) Uncontrolled type 2 diabetes mellitus with complication 02/19/2015 SURGICAL HISTORY Past Surgical History: Procedure Laterality Date CARDIAC CATHETERIZATION 06/03/2018 CARPAL TUNNEL RELEASE CHOLECYSTECTOMY COLONOSCOPY 2011 ENDOMETRIAL ABLATION TONSILLECTOMY AND ADENOIDECTOMY (HISTORICAL) CURRENT MEDICATIONS Discharge Medication List as of 12/07/2022 10:25 AM CONTINUE these medications which have NOT CHANGED Details empagliflozin (Jardiance) 25 MG Take 25 mg by mouth., Starting Wed03/06/2022, Historical Med albuterol 108 (90 Base) MCG/ACT inhaler Inhale 108 puffs every 6 hours as needed., Starting Rianna 08/20/2022, Historical Med Albuterol Sulfate 108 (90 Base) MCG/ACT aerosol powder Administer 108 Inhalation. into each nostril in the morning and 108 Inhalation. at noon and 108 Inhalation. in the evening and 108 Inhalation. before bedtime., Historical Med Folic Acid-Cholecalciferol 1-2000 MG-UNIT tablet Take 1 capsule by mouth Every 24 hours., Historical Med HumuLIN R U-500 KWIKPEN 500 UNIT/ML CONCENTRATED injection Inject 500 Units under the skin in the morning and 500 Units at noon and 500 Units in the evening. Inject before meals., Starting Wed10/20/2022, Historical Med hydrOXYzine HCl (Atarax) 25 MG tablet Take 25 mg by mouth 2 times daily as needed., Starting Wed09/07/2022, Historical Med labetalol (Normodyne) 100 MG tablet Take 100 mg by mouth in the morning and 100 mg in the evening., Historical Med metFORMIN (Glucophage) 1000 MG tablet Take 100 mg by mouth in the morning and 100 mg in the evening., Starting Wed11/03/2022, Historical Med ALLERGIES Patient has no known allergies. FAMILY HISTORY Family History Problem Relation Name Age of Onset Diabetes Mother Heart disease Father Cancer Father prostate High Blood Pressure Father Other ([id number]) Sister TBI Depression Mother Substance Abuse Brother Heart disease Mother Other ([phone]) Mother Depression Brother SOCIAL HISTORY Social History Socioeconomic History Marital status: Single Tobacco Use Smoking status: Former Packs/day: 2.00 Types: Cigarettes Quit date: 09/01/2013 Years since quittin.2 Smokeless tobacco: Never Substance and Sexual Activity Alcohol use: Not Currently Alcohol/week: 0.0 standard drinks Drug use: No SCREENINGS PHYSICAL EXAM ED Triage Vitals [12/07/22 0834] Temp Heart Rate Resp BP 36.9 C (98.4 F) 87 18 (!) 174/96 SpO2 Temp Source Heart Rate Source Patient Position 94 % Temporal Monitor -- BP Location FiO2 (%) -- -- CONSTITUTIONAL: AOx4, no apparent distress, appears stated age HEAD: normocephalic, atraumatic EYES: PERRL, EOMI ENT: moist mucous membranes, uvula midline, no tongue swelling or edema posterior oropharynx NECK: supple, symmetric BACK: symmetric LUNGS: clear to auscultation, no stridor CARDIOVASCULAR: regular rate and rhythm, no murmurs, rubs or gallops ABDOMEN: soft, non-tender, non-distended with normal active bowel sounds : deferred NEUROLOGIC: MAEx4, no focal sensory or motor deficits MUSCULOSKELETAL: no clubbing, cyanosis or edema, isolated edema lower lip left greater than right SKIN: no exposed rash, cysts 1 mm vesicular appearing lesion mid lower lip DIAGNOSTIC RESULTS Procedures/EKG: EKG was reviewed by myself. [facility] RADIOLOGY (Per Emergency Physician): Interpretation per the Radiologist below, if available at the time of this note: No orders to display ED BEDSIDE ULTRASOUND: Performed by ED Physician - none LABS: Labs Reviewed - No data to display All other labs were within normal range or not returned as of this dictation. EMERGENCY DEPARTMENT COURSE and DIFFERENTIAL DIAGNOSIS/MDM: Vitals: Vitals: 12/07/22 0834 12/07/22 0906 12/07/22 1030 BP: (!) 174/96 (!) 150/70 BP Location: Left arm Patient Position: Lying Pulse: 87 77 Resp: 18 18 Temp: 36.9 C (98.4 F) TempSrc: Temporal SpO2: 94% 95% 97% EMERGENCY DEPARTMENT COURSE and DIFFERENTIAL DIAGNOSIS/MDM: Vitals: Vitals: 12/07/22 0834 12/07/22 0906 12/07/22 1030 BP: (!) 174/96 (!) 150/70 BP Location: Left arm Patient Position: Lying Pulse: 87 77 Resp: 18 18 Temp: 36.9 C (98.4 F) TempSrc: Temporal SpO2: 94% 95% 97% The patient presented with a chief complaint of lower lip swelling. No pain. No known allergen exposure. Patient is on lisinopril. Suspect angioedema induced by her CLAUDY inhibitor.. The differential diagnosis associated with this patient's presentation includes CLAUDY inhibitor angioedema, hereditary angioedema, lower suspicion for bacterial infection as she is not having any pain throughout the mouth. Have a chronic ulceration of the left lower lip which she states its baseline. Does have a small erythematous mildly tender vesicular lesion to the mid lower lip which she states had appeared over the past day. Patient does not have any tongue swelling or posterior oropharynx swelling difficulty breathing or swallowing. Patient does have a mild headache which she was given fluids, please use Benadryl. Patient also given Pepcid. Hold off on steroids as no indication for steroids and CLAUDY inhibitor induced angioedema and the patient is diabetic. She is in agreement with this plan.. We will observe 2 hours Swelling is improving over the past 2 hours after Compazine Benadryl Pepcid fluids in the emergency room. We will start the patient on acyclovir for concerns for a cold sore on the lower lip however I do not feel that is the cause of the swelling. I still think the edema is more likely related to CLAUDY inhibitor induced angioedema. Patient stopped on her CLAUDY inhibitor. Patient will follow-up with PCP Wednesday to discuss alternative antihypertensive medications. Diagnoses as of 12/07/22 1137 Lip swelling Cold sore Angioedema, initial encounter Diagnostic tests considered but not performed: External records reviewed: Diagnostics interpreted by me: none Discussions with other clinicians: none Chronic conditions impacting care: Hypertension Social determinants of health affecting care: none ED Medications managed: Medications sodium chloride 0.9 % bolus 1,000 mL (0 mL IntraVENous Stopped 12/07/22 1016) diphenhydrAMINE (BENADryl) injection 25 mg (25 mg IntraVENous Given 12/07/22 0916) famotidine (Pepcid) injection 20 mg (20 mg IntraVENous Given 12/07/22 0922) prochlorperazine (Compazine) injection 10 mg (10 mg IntraVENous Given 12/07/22 0911) CONSULTS: None PROCEDURES: Unless otherwise noted below, none Procedures Patients symptoms are consistent with sepsis, severe sepsis, or septic shock (If yes use .sepsiscoremeasure): FINAL IMPRESSION 1. Angioedema, initial encounter 2. Lip swelling 3. Cold sore DISPOSITION/PLAN dc PATIENT REFERRED TO: Al Ricketts [address] [address] Schedule an appointment as soon as possible for a visit DISCHARGE MEDICATIONS: Discharge Medication List as of 12/07/2022 10:25 AM START taking these medications Details acyclovir (Zovirax) 400 MG tablet Take 1 tablet (400 mg) by mouth 3 times daily for 7 days., Starting Wed12/07/2022, Until Wed12/14/2022, Print (Comment: Please note this report has been produced using speech recognition software and may contain errors related to that system including errors in grammar, punctuation, and spelling, as well as words and phrases that may be inappropriate. If there are any questions or concerns please feel free to contact the dictating provider for clarification.) Catarino Arce DO (electronically signed) Emergency Medicine Provider Catarino Arce DO 12/07/22 1139 [facility] Evaluation note No assessment inform ation available [facility] Work Phone: Evaluation note Diagnosis Onset Date Thrombocytopenia chronic [facility] Work Phone: Evaluation note* Diagnosis Onset Date Resolution Status Thrombocytopenia chronic [id number] acute History of tobacco use acute [facility] Work Phone: Evaluation note* Diagnosis Angioedema, initial encounter- Primary Lip swelling Diseases of lips Cold sore Herpes simplex without mention of complication documented in this encounter [facility]* Diagnosis Lip swelling- Primary Diseases of lips Type 2 diabetes mellitus with polyneuropathy (HCC) Type II or unspecified type diabetes mellitus with neurological manifestations, not stated as uncontrolled Chronic obstructive pulmonary disease, unspecified COPD type (HCC) Essential hypertension Unspecified essential hypertension Hyperlipidemia LDL goal <70 Other and unspecified hyperlipidemia Anxiety Anxiety state, unspecified documented in this encounter [facility]* Diagnosis Fall, initial encounter- Primary Left hand pain Pain in soft tissues of limb Left wrist pain Pain in joint, forearm Left shoulder pain, unspecified chronicity documented in this encounter [facility]* Diagnosis Abscess- Primary Cellulitis and abscess of unspecified site Lilly infection Candidiasis of unspecified site [facility]* Diagnosis Sprain of left knee, unspecified ligament, initial encounter- Primary documented in this encounter [facility]* Diagnosis Near syncope- Primary documented in this encounter [facility]* Diagnosis Lymphopenia- Primary Lymphocytopenia Thrombocytopenia (HCC) Unspecified thrombocytopenia Type 2 diabetes mellitus with polyneuropathy (HCC) Type II or unspecified type diabetes mellitus with neurological manifestations, not stated as uncontrolled Acute pain of left knee Essential hypertension Unspecified essential hypertension documented in this encounter [facility]* Diagnosis Hypoglycemia- Primary Hypoglycemia, unspecified Hypoglycemia Hypoglycemia, unspecified documented in this encounter [facility]* Diagnosis Strain of neck muscle, initial encounter- Primary documented in this encounter [facility]* Diagnosis Chest pain, unspecified type- Primary documented in this encounter [facility]* Diagnosis Annual physical exam- Primary Routine general medical examination at a health care facility Type 2 diabetes mellitus with polyneuropathy (HCC) Type II or unspecified type diabetes mellitus with neurological manifestations, not stated as uncontrolled Back strain, initial encounter Essential hypertension Unspecified essential hypertension Recurrent major depressive disorder, in partial remission (HCC) Anxiety Anxiety state, unspecified Lymphopenia Lymphocytopenia Hyperlipidemia LDL goal <70 Other and unspecified hyperlipidemia Encounter for screening mammogram for malignant neoplasm of breast Colon cancer screening Special screening for malignant neoplasms, colon Urinary tract infection symptoms Other cirrhosis of liver (HCC) Thrombocytopenia (HCC) Unspecified thrombocytopenia Chronic bronchitis, unspecified chronic bronchitis type (HCC) Gastroesophageal reflux disease without esophagitis Esophageal reflux Migraine without aura and without status migrainosus, not intractable Obstructive sleep apnea syndrome Obstructive sleep apnea (adult) (pediatric) Lip lesion Diseases of lips [facility] Annual physical exam- Primary Routine general medical examination at a health care facility Type 2 diabetes mellitus with polyneuropathy (HCC) Type II or unspecified type diabetes mellitus with neurological manifestations, not stated as uncontrolled Back strain, initial encounter Essential hypertension Unspecified essential hypertension Recurrent major depressive disorder, in partial remission (HCC) Anxiety Anxiety state, unspecified Lymphopenia Lymphocytopenia Hyperlipidemia LDL goal <70 Other and unspecified hyperlipidemia Encounter for screening mammogram for malignant neoplasm of breast Colon cancer screening Special screening for malignant neoplasms, colon Urinary tract infection symptoms Other cirrhosis of liver (HCC) Thrombocytopenia (HCC) Unspecified thrombocytopenia Chronic bronchitis, unspecified chronic bronchitis type (HCC) Gastroesophageal reflux disease without esophagitis Esophageal reflux Migraine without aura and without status migrainosus, not intractable Obstructive sleep apnea syndrome Obstructive sleep apnea (adult) (pediatric) Lip lesion Diseases of lips documented in [facility] encounter [facility]* Diagnosis Pancytopenia (HCC)- Primary documented in this encounter [facility]* Diagnosis Pancytopenia (HCC)- Primary documented in this encounter [facility]* Diagnosis Pancytopenia (HCC) [facility] Diagnosis Hypoglycemia- Primary Hypoglycemia, unspecified Hypoglycemia Hypoglycemia, unspecified Hypoglycemia, unspecified documented in [facility] encounter [facility]* Diagnosis Type 2 diabetes mellitus with polyneuropathy (HCC) Type II or unspecified type diabetes mellitus with neurological manifestations, not stated as uncontrolled [facility] Diagnosis Pancytopenia (HCC)- Primary documented in this encounter [facility]* Diagnosis Pancytopenia (HCC)- Primary documented in this encounter [facility]* Diagnosis 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 Type II or unspecified type diabetes mellitus with neurological manifestations, not stated as uncontrolled documented in this encounter [facility]* Diagnosis Hyponatremia- Primary Hyposmolality and/or hyponatremia Type 2 diabetes mellitus with polyneuropathy (HCC) Type II or unspecified type diabetes mellitus with neurological manifestations, not stated as uncontrolled Other cirrhosis of liver (HCC) Pancytopenia (HCC) documented in [facility]* Diagnosis Type 2 diabetes mellitus with polyneuropathy (HCC) Type II or unspecified type diabetes mellitus with neurological manifestations, not stated as uncontrolled documented in this encounter [facility]* Diagnosis Type 2 diabetes mellitus treated with insulin (CMS/HCC) (HCC)- Primary documented in this encounter [facility]* Diagnosis Hypoglycemia- Primary Hypoglycemia, unspecified documented in this encounter [facility]* Diagnosis Anxiety Anxiety state, unspecified Essential hypertension Unspecified essential hypertension Type 2 diabetes mellitus with polyneuropathy (HCC) Type II or unspecified type diabetes mellitus with neurological manifestations, not stated as uncontrolled documented in [facility] encounter [facility]* Diagnosis Acute nonintractable headache, unspecified headache type- Primary documented in this encounter [facility]* Diagnosis Intertrigo- Primary Other specified erythematous condition documented in this encounter [facility]* Diagnosis Anxiety Anxiety state, unspecified documented in this encounter [facility]* Diagnosis Lip swelling- Primary Diseases of lips Type 2 diabetes mellitus with polyneuropathy (HCC) Type II or unspecified type diabetes mellitus with neurological manifestations, not stated as uncontrolled Chronic obstructive pulmonary disease, unspecified COPD type (HCC) Essential hypertension Unspecified essential hypertension Hyperlipidemia LDL goal <70 Other and unspecified hyperlipidemia Anxiety Anxiety state, unspecified Lymphopenia- Primary Lymphocytopenia Thrombocytopenia (HCC) Unspecified thrombocytopenia Type 2 diabetes mellitus with polyneuropathy (HCC) Type II or unspecified type diabetes mellitus with neurological manifestations, not stated as uncontrolled Acute pain of left knee Essential hypertension Unspecified essential hypertension Annual physical exam- Primary Routine general medical examination at a health care facility Type 2 diabetes mellitus with polyneuropathy (HCC) Type II or unspecified type diabetes mellitus with neurological manifestations, not stated as uncontrolled Back strain, initial encounter Essential hypertension Unspecified essential hypertension Recurrent major depressive disorder, in partial remission (HCC) Anxiety Anxiety state, unspecified Lymphopenia Lymphocytopenia Hyperlipidemia LDL goal <70 Other and unspecified hyperlipidemia Encounter for screening mammogram for malignant neoplasm of breast Colon cancer screening Special screening for malignant neoplasms, colon Urinary tract infection symptoms Other cirrhosis of liver (HCC) Thrombocytopenia (HCC) Unspecified thrombocytopenia Chronic bronchitis, unspecified chronic bronchitis type (HCC) Gastroesophageal reflux disease without esophagitis Esophageal reflux Migraine without aura and without status migrainosus, not intractable Obstructive sleep apnea syndrome Obstructive sleep apnea (adult) (pediatric) Lip lesion Diseases of lips Hyponatremia- Primary Hyposmolality and/or hyponatremia Type 2 diabetes mellitus with polyneuropathy (HCC) Type II or unspecified type diabetes mellitus with neurological manifestations, not stated as uncontrolled Other cirrhosis of liver (HCC) Pancytopenia (HCC) Anxiety Anxiety state, unspecified Essential hypertension Unspecified essential hypertension [facility] Diagnosis Lip swelling- Primary Diseases of lips Type 2 diabetes mellitus with polyneuropathy (HCC) Type II or unspecified type diabetes mellitus with neurological manifestations, not stated as uncontrolled Chronic obstructive pulmonary disease, unspecified COPD type (HCC) Essential hypertension Unspecified essential hypertension Hyperlipidemia LDL goal <70 Other and unspecified hyperlipidemia Anxiety Anxiety state, unspecified Lymphopenia- Primary Lymphocytopenia Thrombocytopenia (HCC) Unspecified thrombocytopenia Type 2 diabetes mellitus with polyneuropathy (HCC) Type II or unspecified type diabetes mellitus with neurological manifestations, not stated as uncontrolled Acute pain of left knee Essential hypertension Unspecified essential hypertension Annual physical exam- Primary Routine general medical examination at a health care facility Type 2 diabetes mellitus with polyneuropathy (HCC) Type II or unspecified type diabetes mellitus with neurological manifestations, not stated as uncontrolled Back strain, initial encounter Essential hypertension Unspecified essential hypertension Recurrent major depressive disorder, in partial remission (HCC) Anxiety Anxiety state, unspecified Lymphopenia Lymphocytopenia Hyperlipidemia LDL goal <70 Other and unspecified hyperlipidemia Encounter for screening mammogram for malignant neoplasm of breast Colon cancer screening Special screening for malignant neoplasms, colon Urinary tract infection symptoms Other cirrhosis of liver (HCC) Thrombocytopenia (HCC) Unspecified thrombocytopenia Chronic bronchitis, unspecified chronic bronchitis type (HCC) Gastroesophageal reflux disease without esophagitis Esophageal reflux Migraine without aura and without status migrainosus, not intractable Obstructive sleep apnea syndrome Obstructive sleep apnea (adult) (pediatric) Lip lesion Diseases of lips Hyponatremia- Primary Hyposmolality and/or hyponatremia Type 2 diabetes mellitus with polyneuropathy (HCC) Type II or unspecified type diabetes mellitus with neurological manifestations, not stated as uncontrolled Other cirrhosis of liver (HCC) Pancytopenia (HCC) Type 2 diabetes mellitus with polyneuropathy (HCC) Type II or unspecified type diabetes mellitus with neurological manifestations, not stated as uncontrolled [facility] Diagnosis Lip swelling- Primary Diseases of lips Type 2 diabetes mellitus with polyneuropathy (HCC) Type II or unspecified type diabetes mellitus with neurological manifestations, not stated as uncontrolled Chronic obstructive pulmonary disease, unspecified COPD type (HCC) Essential hypertension Unspecified essential hypertension Hyperlipidemia LDL goal <70 Other and unspecified hyperlipidemia Anxiety Anxiety state, unspecified Lymphopenia- Primary Lymphocytopenia Thrombocytopenia (HCC) Unspecified thrombocytopenia Type 2 diabetes mellitus with polyneuropathy (HCC) Type II or unspecified type diabetes mellitus with neurological manifestations, not stated as uncontrolled Acute pain of left knee Essential hypertension Unspecified essential hypertension Annual physical exam- Primary Routine general medical examination at a health care facility Type 2 diabetes mellitus with polyneuropathy (HCC) Type II or unspecified type diabetes mellitus with neurological manifestations, not stated as uncontrolled Back strain, initial encounter Essential hypertension Unspecified essential hypertension Recurrent major depressive disorder, in partial remission (HCC) Anxiety Anxiety state, unspecified Lymphopenia Lymphocytopenia Hyperlipidemia LDL goal <70 Other and unspecified hyperlipidemia Encounter for screening mammogram for malignant neoplasm of breast Colon cancer screening Special screening for malignant neoplasms, colon Urinary tract infection symptoms Other cirrhosis of liver (HCC) Thrombocytopenia (HCC) Unspecified thrombocytopenia Chronic bronchitis, unspecified chronic bronchitis type (HCC) Gastroesophageal reflux disease without esophagitis Esophageal reflux Migraine without aura and without status migrainosus, not intractable Obstructive sleep apnea syndrome Obstructive sleep apnea (adult) (pediatric) Lip lesion Diseases of lips Hyponatremia- Primary Hyposmolality and/or hyponatremia Type 2 diabetes mellitus with polyneuropathy (HCC) Type II or unspecified type diabetes mellitus with neurological manifestations, not stated as uncontrolled Other cirrhosis of liver (HCC) Pancytopenia (HCC) Chronic bronchitis, unspecified chronic bronchitis type (HCC)- Primary documented [facility]* Diagnosis Lip swelling- Primary Diseases of lips Type 2 diabetes mellitus with polyneuropathy (HCC) Type II or unspecified type diabetes mellitus with neurological manifestations, not stated as uncontrolled Chronic obstructive pulmonary disease, unspecified COPD type (HCC) Essential hypertension Unspecified essential hypertension Hyperlipidemia LDL goal <70 Other and unspecified hyperlipidemia Anxiety Anxiety state, unspecified Lymphopenia- Primary Lymphocytopenia Thrombocytopenia (HCC) Unspecified thrombocytopenia Type 2 diabetes mellitus with polyneuropathy (HCC) Type II or unspecified type diabetes mellitus with neurological manifestations, not stated as uncontrolled Acute pain of left knee Essential hypertension Unspecified essential hypertension Annual physical exam- Primary Routine general medical examination at a health care facility Type 2 diabetes mellitus with polyneuropathy (HCC) Type II or unspecified type diabetes mellitus with neurological manifestations, not stated as uncontrolled Back strain, initial encounter Essential hypertension Unspecified essential hypertension Recurrent major depressive disorder, in partial remission (HCC) Anxiety Anxiety state, unspecified Lymphopenia Lymphocytopenia Hyperlipidemia LDL goal <70 Other and unspecified hyperlipidemia Encounter for screening mammogram for malignant neoplasm of breast Colon cancer screening Special screening for malignant neoplasms, colon Urinary tract infection symptoms Other cirrhosis of liver (HCC) Thrombocytopenia (HCC) Unspecified thrombocytopenia Chronic bronchitis, unspecified chronic bronchitis type (HCC) Gastroesophageal reflux disease without esophagitis Esophageal reflux Migraine without aura and without status migrainosus, not intractable Obstructive sleep apnea syndrome Obstructive sleep apnea (adult) (pediatric) Lip lesion Diseases of lips Hyponatremia- Primary Hyposmolality and/or hyponatremia Type 2 diabetes mellitus with polyneuropathy (HCC) Type II or unspecified type diabetes mellitus with neurological manifestations, not stated as uncontrolled Other cirrhosis of liver (HCC) Pancytopenia (HCC) Type 2 diabetes mellitus with hyperglycemia, unspecified whether custodial insulin use (HCC)- Primary documented [facility]* Diagnosis Lip swelling- Primary Diseases of lips Type 2 diabetes mellitus with polyneuropathy (HCC) Type II or unspecified type diabetes mellitus with neurological manifestations, not stated as uncontrolled Chronic obstructive pulmonary disease, unspecified COPD type (HCC) Essential hypertension Unspecified essential hypertension Hyperlipidemia LDL goal <70 Other and unspecified hyperlipidemia Anxiety Anxiety state, unspecified Lymphopenia- Primary Lymphocytopenia Thrombocytopenia (HCC) Unspecified thrombocytopenia Type 2 diabetes mellitus with polyneuropathy (HCC) Type II or unspecified type diabetes mellitus with neurological manifestations, not stated as uncontrolled Acute pain of left knee Essential hypertension Unspecified essential hypertension Annual physical exam- Primary Routine general medical examination at a health care facility Type 2 diabetes mellitus with polyneuropathy (HCC) Type II or unspecified type diabetes mellitus with neurological manifestations, not stated as uncontrolled Back strain, initial encounter Essential hypertension Unspecified essential hypertension Recurrent major depressive disorder, in partial remission (HCC) Anxiety Anxiety state, unspecified Lymphopenia Lymphocytopenia Hyperlipidemia LDL goal <70 Other and unspecified hyperlipidemia Encounter for screening mammogram for malignant neoplasm of breast Colon cancer screening Special screening for malignant neoplasms, colon Urinary tract infection symptoms Other cirrhosis of liver (HCC) Thrombocytopenia (HCC) Unspecified thrombocytopenia Chronic bronchitis, unspecified chronic bronchitis type (HCC) Gastroesophageal reflux disease without esophagitis Esophageal reflux Migraine without aura and without status migrainosus, not intractable Obstructive sleep apnea syndrome Obstructive sleep apnea (adult) (pediatric) Lip lesion Diseases of lips Hyponatremia- Primary Hyposmolality and/or hyponatremia Type 2 diabetes mellitus with polyneuropathy (HCC) Type II or unspecified type diabetes mellitus with neurological manifestations, not stated as uncontrolled Other cirrhosis of liver (HCC) Pancytopenia (HCC) 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 Low platelet count (HCC) Essential hypertension Unspecified essential hypertension Hyperlipidemia LDL goal <70 Other and unspecified hyperlipidemia Obstructive sleep apnea syndrome Obstructive sleep apnea (adult) (pediatric) Pancytopenia (HCC) Encounter for screening mammogram for malignant neoplasm of breast Type 2 diabetes mellitus with hyperglycemia, unspecified whether custodial insulin use (HCC) Other cirrhosis of liver (HCC) Chronic bronchitis, unspecified chronic bronchitis type (HCC) Current mild episode of major depressive disorder without prior episode (HCC) Class 3 severe obesity due to excess calories with serious comorbidity and body mass index (BMI) of 40.0 to 44.9 in adult (HCC) Vitamin B 12 deficiency Other B-complex deficiencies Anxiety Anxiety state, unspecified Financial difficulty Inadequate material resources [facility] Diagnosis Lip swelling- Primary Diseases of lips Type 2 diabetes mellitus with polyneuropathy (HCC) Type II or unspecified type diabetes mellitus with neurological manifestations, not stated as uncontrolled Chronic obstructive pulmonary disease, unspecified COPD type (HCC) Essential hypertension Unspecified essential hypertension Hyperlipidemia LDL goal <70 Other and unspecified hyperlipidemia Anxiety Anxiety state, unspecified Lymphopenia- Primary Lymphocytopenia Thrombocytopenia (HCC) Unspecified thrombocytopenia Type 2 diabetes mellitus with polyneuropathy (HCC) Type II or unspecified type diabetes mellitus with neurological manifestations, not stated as uncontrolled Acute pain of left knee Essential hypertension Unspecified essential hypertension Annual physical exam- Primary Routine general medical examination at a health care facility Type 2 diabetes mellitus with polyneuropathy (HCC) Type II or unspecified type diabetes mellitus with neurological manifestations, not stated as uncontrolled Back strain, initial encounter Essential hypertension Unspecified essential hypertension Recurrent major depressive disorder, in partial remission (HCC) Anxiety Anxiety state, unspecified Lymphopenia Lymphocytopenia Hyperlipidemia LDL goal <70 Other and unspecified hyperlipidemia Encounter for screening mammogram for malignant neoplasm of breast Colon cancer screening Special screening for malignant neoplasms, colon Urinary tract infection symptoms Other cirrhosis of liver (HCC) Thrombocytopenia (HCC) Unspecified thrombocytopenia Chronic bronchitis, unspecified chronic bronchitis type (HCC) Gastroesophageal reflux disease without esophagitis Esophageal reflux Migraine without aura and without status migrainosus, not intractable Obstructive sleep apnea syndrome Obstructive sleep apnea (adult) (pediatric) Lip lesion Diseases of lips Hyponatremia- Primary Hyposmolality and/or hyponatremia Type 2 diabetes mellitus with polyneuropathy (HCC) Type II or unspecified type diabetes mellitus with neurological manifestations, not stated as uncontrolled Other cirrhosis of liver (HCC) Pancytopenia (HCC) 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 Low platelet count (HCC) Essential hypertension Unspecified essential hypertension Hyperlipidemia LDL goal <70 Other and unspecified hyperlipidemia Obstructive sleep apnea syndrome Obstructive sleep apnea (adult) (pediatric) Pancytopenia (HCC) Encounter for screening mammogram for malignant neoplasm of breast Type 2 diabetes mellitus with hyperglycemia, unspecified whether termite helper insulin use (HCC) Other cirrhosis of liver (HCC) Chronic bronchitis, unspecified chronic bronchitis type (HCC) Current mild episode of major depressive disorder without prior episode (HCC) Class 3 severe obesity due to excess calories with serious comorbidity and body mass index (BMI) of 40.0 to 44.9 in adult (HCC) Vitamin B 12 deficiency Other B-complex deficiencies Anxiety Anxiety state, unspecified Financial difficulty Inadequate material resources Hyperlipidemia LDL goal <70- Primary Other and unspecified hyperlipidemia Type 2 diabetes mellitus with hyperglycemia, unspecified whether custodial insulin use (HCC) Type 2 diabetes mellitus with polyneuropathy (HCC) Type II or unspecified type diabetes mellitus with neurological manifestations, not stated as uncontrolled [facility] Diagnosis Lip swelling- Primary Diseases of lips Type 2 diabetes mellitus with polyneuropathy (HCC) Type II or unspecified type diabetes mellitus with neurological manifestations, not stated as uncontrolled Chronic obstructive pulmonary disease, unspecified COPD type (HCC) Essential hypertension Unspecified essential hypertension Hyperlipidemia LDL goal <70 Other and unspecified hyperlipidemia Anxiety Anxiety state, unspecified Lymphopenia- Primary Lymphocytopenia Thrombocytopenia (HCC) Unspecified thrombocytopenia Type 2 diabetes mellitus with polyneuropathy (HCC) Type II or unspecified type diabetes mellitus with neurological manifestations, not stated as uncontrolled Acute pain of left knee Essential hypertension Unspecified essential hypertension Annual physical exam- Primary Routine general medical examination at a health care facility Type 2 diabetes mellitus with polyneuropathy (HCC) Type II or unspecified type diabetes mellitus with neurological manifestations, not stated as uncontrolled Back strain, initial encounter Essential hypertension Unspecified essential hypertension Recurrent major depressive disorder, in partial remission (HCC) Anxiety Anxiety state, unspecified Lymphopenia Lymphocytopenia Hyperlipidemia LDL goal <70 Other and unspecified hyperlipidemia Encounter for screening mammogram for malignant neoplasm of breast Colon cancer screening Special screening for malignant neoplasms, colon Urinary tract infection symptoms Other cirrhosis of liver (HCC) Thrombocytopenia (HCC) Unspecified thrombocytopenia Chronic bronchitis, unspecified chronic bronchitis type (HCC) Gastroesophageal reflux disease without esophagitis Esophageal reflux Migraine without aura and without status migrainosus, not intractable Obstructive sleep apnea syndrome Obstructive sleep apnea (adult) (pediatric) Lip lesion Diseases of lips Hyponatremia- Primary Hyposmolality and/or hyponatremia Type 2 diabetes mellitus with polyneuropathy (HCC) Type II or unspecified type diabetes mellitus with neurological manifestations, not stated as uncontrolled Other cirrhosis of liver (HCC) Pancytopenia (HCC) 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 Low platelet count (HCC) Essential hypertension Unspecified essential hypertension Hyperlipidemia LDL goal <70 Other and unspecified hyperlipidemia Obstructive sleep apnea syndrome Obstructive sleep apnea (adult) (pediatric) Pancytopenia (HCC) Encounter for screening mammogram for malignant neoplasm of breast Type 2 diabetes mellitus with hyperglycemia, unspecified whether custodial insulin use (HCC) Other cirrhosis of liver (HCC) Chronic bronchitis, unspecified chronic bronchitis type (HCC) Current mild episode of major depressive disorder without prior episode (HCC) Class 3 severe obesity due to excess calories with serious comorbidity and body mass index (BMI) of 40.0 to 44.9 in adult (HCC) Vitamin B 12 deficiency Other B-complex deficiencies Anxiety Anxiety state, unspecified Financial difficulty Inadequate material resources URI with cough and congestion- Primary Chronic bronchitis, unspecified chronic bronchitis type (HCC) documented [facility]* Diagnosis Lip swelling- Primary Diseases of lips Type 2 diabetes mellitus with polyneuropathy (HCC) Type II or unspecified type diabetes mellitus with neurological manifestations, not stated as uncontrolled Chronic obstructive pulmonary disease, unspecified COPD type (HCC) Essential hypertension Unspecified essential hypertension Hyperlipidemia LDL goal <70 Other and unspecified hyperlipidemia Anxiety Anxiety state, unspecified Lymphopenia- Primary Lymphocytopenia Thrombocytopenia (HCC) Unspecified thrombocytopenia Type 2 diabetes mellitus with polyneuropathy (HCC) Type II or unspecified type diabetes mellitus with neurological manifestations, not stated as uncontrolled Acute pain of left knee Essential hypertension Unspecified essential hypertension Annual physical exam- Primary Routine general medical examination at a health care facility Type 2 diabetes mellitus with polyneuropathy (HCC) Type II or unspecified type diabetes mellitus with neurological manifestations, not stated as uncontrolled Back strain, initial encounter Essential hypertension Unspecified essential hypertension Recurrent major depressive disorder, in partial remission (HCC) Anxiety Anxiety state, unspecified Lymphopenia Lymphocytopenia Hyperlipidemia LDL goal <70 Other and unspecified hyperlipidemia Encounter for screening mammogram for malignant neoplasm of breast Colon cancer screening Special screening for malignant neoplasms, colon Urinary tract infection symptoms Other cirrhosis of liver (HCC) Thrombocytopenia (HCC) Unspecified thrombocytopenia Chronic bronchitis, unspecified chronic bronchitis type (HCC) Gastroesophageal reflux disease without esophagitis Esophageal reflux Migraine without aura and without status migrainosus, not intractable Obstructive sleep apnea syndrome Obstructive sleep apnea (adult) (pediatric) Lip lesion Diseases of lips Hyponatremia- Primary Hyposmolality and/or hyponatremia Type 2 diabetes mellitus with polyneuropathy (HCC) Type II or unspecified type diabetes mellitus with neurological manifestations, not stated as uncontrolled Other cirrhosis of liver (HCC) Pancytopenia (HCC) 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 Low platelet count (HCC) Essential hypertension Unspecified essential hypertension Hyperlipidemia LDL goal <70 Other and unspecified hyperlipidemia Obstructive sleep apnea syndrome Obstructive sleep apnea (adult) (pediatric) Pancytopenia (HCC) Encounter for screening mammogram for malignant neoplasm of breast Type 2 diabetes mellitus with hyperglycemia, unspecified whether termite helper insulin use (HCC) Other cirrhosis of liver (HCC) Chronic bronchitis, unspecified chronic bronchitis type (HCC) Current mild episode of major depressive disorder without prior episode (HCC) Class 3 severe obesity due to excess calories with serious comorbidity and body mass index (BMI) of 40.0 to 44.9 in adult (HCC) Vitamin B 12 deficiency Other B-complex deficiencies Anxiety Anxiety state, unspecified Financial difficulty Inadequate material resources Type 2 diabetes mellitus with hyperglycemia, unspecified whether termite helper insulin use (HCC) [facility] Diagnosis Lip swelling- Primary Diseases of lips Type 2 diabetes mellitus with polyneuropathy (HCC) Type II or unspecified type diabetes mellitus with neurological manifestations, not stated as uncontrolled Chronic obstructive pulmonary disease, unspecified COPD type (HCC) Essential hypertension Unspecified essential hypertension Hyperlipidemia LDL goal <70 Other and unspecified hyperlipidemia Anxiety Anxiety state, unspecified Lymphopenia- Primary Lymphocytopenia Thrombocytopenia (HCC) Unspecified thrombocytopenia Type 2 diabetes mellitus with polyneuropathy (HCC) Type II or unspecified type diabetes mellitus with neurological manifestations, not stated as uncontrolled Acute pain of left knee Essential hypertension Unspecified essential hypertension Annual physical exam- Primary Routine general medical examination at a health care facility Type 2 diabetes mellitus with polyneuropathy (HCC) Type II or unspecified type diabetes mellitus with neurological manifestations, not stated as uncontrolled Back strain, initial encounter Essential hypertension Unspecified essential hypertension Recurrent major depressive disorder, in partial remission (HCC) Anxiety Anxiety state, unspecified Lymphopenia Lymphocytopenia Hyperlipidemia LDL goal <70 Other and unspecified hyperlipidemia Encounter for screening mammogram for malignant neoplasm of breast Colon cancer screening Special screening for malignant neoplasms, colon Urinary tract infection symptoms Other cirrhosis of liver (HCC) Thrombocytopenia (HCC) Unspecified thrombocytopenia Chronic bronchitis, unspecified chronic bronchitis type (HCC) Gastroesophageal reflux disease without esophagitis Esophageal reflux Migraine without aura and without status migrainosus, not intractable Obstructive sleep apnea syndrome Obstructive sleep apnea (adult) (pediatric) Lip lesion Diseases of lips Hyponatremia- Primary Hyposmolality and/or hyponatremia Type 2 diabetes mellitus with polyneuropathy (HCC) Type II or unspecified type diabetes mellitus with neurological manifestations, not stated as uncontrolled Other cirrhosis of liver (HCC) Pancytopenia (HCC) 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 Low platelet count (HCC) Essential hypertension Unspecified essential hypertension Hyperlipidemia LDL goal <70 Other and unspecified hyperlipidemia Obstructive sleep apnea syndrome Obstructive sleep apnea (adult) (pediatric) Pancytopenia (HCC) Encounter for screening mammogram for malignant neoplasm of breast Type 2 diabetes mellitus with hyperglycemia, unspecified whether termite helper insulin use (HCC) Other cirrhosis of liver (HCC) Chronic bronchitis, unspecified chronic bronchitis type (HCC) Current mild episode of major depressive disorder without prior episode (HCC) Class 3 severe obesity due to excess calories with serious comorbidity and body mass index (BMI) of 40.0 to 44.9 in adult (HCC) Vitamin B 12 deficiency Other B-complex deficiencies Anxiety Anxiety state, unspecified Financial difficulty Inadequate material resources Hyperglycemia- Primary Other abnormal glucose CARLOS (acute kidney injury) (HCC) Facial flushing [facility]* Diagnosis Lip swelling- Primary Diseases of lips Type 2 diabetes mellitus with polyneuropathy (HCC) Type II or unspecified type diabetes mellitus with neurological manifestations, not stated as uncontrolled Chronic obstructive pulmonary disease, unspecified COPD type (HCC) Essential hypertension Unspecified essential hypertension Hyperlipidemia LDL goal <70 Other and unspecified hyperlipidemia Anxiety Anxiety state, unspecified Lymphopenia- Primary Lymphocytopenia Thrombocytopenia (HCC) Unspecified thrombocytopenia Type 2 diabetes mellitus with polyneuropathy (HCC) Type II or unspecified type diabetes mellitus with neurological manifestations, not stated as uncontrolled Acute pain of left knee Essential hypertension Unspecified essential hypertension Annual physical exam- Primary Routine general medical examination at a health care facility Type 2 diabetes mellitus with polyneuropathy (HCC) Type II or unspecified type diabetes mellitus with neurological manifestations, not stated as uncontrolled Back strain, initial encounter Essential hypertension Unspecified essential hypertension Recurrent major depressive disorder, in partial remission (HCC) Anxiety Anxiety state, unspecified Lymphopenia Lymphocytopenia Hyperlipidemia LDL goal <70 Other and unspecified hyperlipidemia Encounter for screening mammogram for malignant neoplasm of breast Colon cancer screening Special screening for malignant neoplasms, colon Urinary tract infection symptoms Other cirrhosis of liver (HCC) Thrombocytopenia (HCC) Unspecified thrombocytopenia Chronic bronchitis, unspecified chronic bronchitis type (HCC) Gastroesophageal reflux disease without esophagitis Esophageal reflux Migraine without aura and without status migrainosus, not intractable Obstructive sleep apnea syndrome Obstructive sleep apnea (adult) (pediatric) Lip lesion Diseases of lips Hyponatremia- Primary Hyposmolality and/or hyponatremia Type 2 diabetes mellitus with polyneuropathy (HCC) Type II or unspecified type diabetes mellitus with neurological manifestations, not stated as uncontrolled Other cirrhosis of liver (HCC) Pancytopenia (HCC) 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 Low platelet count (HCC) Essential hypertension Unspecified essential hypertension Hyperlipidemia LDL goal <70 Other and unspecified hyperlipidemia Obstructive sleep apnea syndrome Obstructive sleep apnea (adult) (pediatric) Pancytopenia (HCC) Encounter for screening mammogram for malignant neoplasm of breast Type 2 diabetes mellitus with hyperglycemia, unspecified whether custodial insulin use (HCC) Other cirrhosis of liver (HCC) Chronic bronchitis, unspecified chronic bronchitis type (HCC) Current mild episode of major depressive disorder without prior episode (HCC) Class 3 severe obesity due to excess calories with serious comorbidity and body mass index (BMI) of 40.0 to 44.9 in adult (HCC) Vitamin B 12 deficiency Other B-complex deficiencies Anxiety Anxiety state, unspecified Financial difficulty Inadequate material resources Anxiety Anxiety state, unspecified Essential hypertension Unspecified essential hypertension [facility] Diagnosis Lip swelling- Primary Diseases of lips Type 2 diabetes mellitus with polyneuropathy (HCC) Type II or unspecified type diabetes mellitus with neurological manifestations, not stated as uncontrolled Chronic obstructive pulmonary disease, unspecified COPD type (HCC) Essential hypertension Unspecified essential hypertension Hyperlipidemia LDL goal <70 Other and unspecified hyperlipidemia Anxiety Anxiety state, unspecified Lymphopenia- Primary Lymphocytopenia Thrombocytopenia (HCC) Unspecified thrombocytopenia Type 2 diabetes mellitus with polyneuropathy (HCC) Type II or unspecified type diabetes mellitus with neurological manifestations, not stated as uncontrolled Acute pain of left knee Essential hypertension Unspecified essential hypertension Annual physical exam- Primary Routine general medical examination at a health care facility Type 2 diabetes mellitus with polyneuropathy (HCC) Type II or unspecified type diabetes mellitus with neurological manifestations, not stated as uncontrolled Back strain, initial encounter Essential hypertension Unspecified essential hypertension Recurrent major depressive disorder, in partial remission (HCC) Anxiety Anxiety state, unspecified Lymphopenia Lymphocytopenia Hyperlipidemia LDL goal <70 Other and unspecified hyperlipidemia Encounter for screening mammogram for malignant neoplasm of breast Colon cancer screening Special screening for malignant neoplasms, colon Urinary tract infection symptoms Other cirrhosis of liver (HCC) Thrombocytopenia (HCC) Unspecified thrombocytopenia Chronic bronchitis, unspecified chronic bronchitis type (HCC) Gastroesophageal reflux disease without esophagitis Esophageal reflux Migraine without aura and without status migrainosus, not intractable Obstructive sleep apnea syndrome Obstructive sleep apnea (adult) (pediatric) Lip lesion Diseases of lips Hyponatremia- Primary Hyposmolality and/or hyponatremia Type 2 diabetes mellitus with polyneuropathy (HCC) Type II or unspecified type diabetes mellitus with neurological manifestations, not stated as uncontrolled Other cirrhosis of liver (HCC) Pancytopenia (HCC) 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 Low platelet count (HCC) Essential hypertension Unspecified essential hypertension Hyperlipidemia LDL goal <70 Other and unspecified hyperlipidemia Obstructive sleep apnea syndrome Obstructive sleep apnea (adult) (pediatric) Pancytopenia (HCC) Encounter for screening mammogram for malignant neoplasm of breast Type 2 diabetes mellitus with hyperglycemia, unspecified whether custodial insulin use (HCC) Other cirrhosis of liver (HCC) Chronic bronchitis, unspecified chronic bronchitis type (HCC) Current mild episode of major depressive disorder without prior episode (HCC) Class 3 severe obesity due to excess calories with serious comorbidity and body mass index (BMI) of 40.0 to 44.9 in adult (HCC) Vitamin B 12 deficiency Other B-complex deficiencies Anxiety Anxiety state, unspecified Financial difficulty Inadequate material resources 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 Type II or unspecified type diabetes mellitus with neurological manifestations, not stated as uncontrolled Vitamin B 12 deficiency Other B-complex deficiencies Pancytopenia (HCC) Pain management Current mild episode of major depressive disorder without prior episode (HCC) Diabetic nephropathy associated with type 2 diabetes mellitus (HCC) Other cirrhosis of liver (HCC) Anxiety Anxiety state, unspecified Essential hypertension Unspecified essential hypertension Hyperlipidemia LDL goal <70 Other and unspecified hyperlipidemia Encounter for screening mammogram for malignant neoplasm of breast Type 2 diabetes mellitus with hyperglycemia, unspecified whether termite helper insulin use (HCC) Yeast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 Line. If inadequate response within 60 minutes, proceed to next-line agent or contact provider if no further options ordered. Patient should allow tablet to dissolve on tongue. Do not remove from blister pack until just before administering. polyethylene glycol (PEG) 3350 (Miralax) packet 17 g 17 g, Oral, Daily PRN, constipation, Starting on Wed02/18/23 at 2146, 1st line for treatment of constipation - give scheduled if no bowel movement in past 24 hours. sodium chloride 0.9 % infusion 5-250 mL/hr, IntraVENous, PRN, if patient receiving piggyback infusions and maintenance fluids are not ordered OR KVO fluids to protect IV site / prevent frequent line interruptions / long duration, Starting on Wed02/18/23 at 2146, For piggyback infusion, administer at same rate as piggyback for a total of 25 mL. Enter 25 mL into dose field and piggyback rate into rate field of order. If piggyback is infusing at a rate less than 100 mL/hr, enter 25 mL into dose field and 100 mL/hr into rate field of order. For KVO fluids, enter rate of 20 mL/hr or less into rate field of order. sodium chloride 0.9% (NS) flush 5-40 mL 5-40 mL, IntraVENous, PRN, line care, After every IV line use, Starting on Rianna 02/18/23 at 2146, For Line Patency: Peripheral IV = 5 mL; Midline or Central Line = 10 mL/lumen. If following IV push medication, administer flush at same rate as the IV push. Flush volume is determined by type of infusion therapy being given. For non-viscous solutions use: Peripheral IV = 5 mL Midline or Central Line = 10 mL/lumen For viscous solutions (i.e. blood components, parenteral nutrition, contrast media, or after obtaining blood sample) use: Peripheral IV = 10 mL Midline or Central Line = 20 mL/lumen Linked Groups Order Group 1: ondansetron ODT (Zofran-ODT) disintegrating tablet 4 mgJump to med 4 mg, Oral, Every 8 hours PRN, nausea, vomiting, Starting on Rianna 02/18/23 at 2146
1st Line. If inadequate response within 60 minutes, proceed to next-line agent or contact provider if no further options ordered. Patient should allow tablet to dissolve on tongue. Do not remove from blister pack until just before administering.
Or ondansetron (Zofran) injection 4 mgJump to med 4 mg, IntraVENous, Every 6 hours PRN, nausea, vomiting, Starting on Rianna 02/18/23 at 2146
1st Line. Give IV if patient is unable to take orally. If inadequate response within 60 minutes, proceed to next-line agent or contact provider if no further options ordered.
Scheduled Medication Order 03/13/2023 03/14/2023 03/15/2023 acetaminophen (Tylenol) tablet 1,000 mg (COMPLETED) 1,000 mg, Oral, Once, On 03/15/23 at 1035, For 1 dose, Maximum dose of acetaminophen is 4000 mg from all sources in 24 hours. 1051 (Given - Provid er: Avtar Sorto) cyclobenzaprine (Flexeril) tablet 5 mg (COMPLETED) 5 mg, Oral, Once, On Wed03/15/23 at 1035, For 1 dose 1051 (Given - Provid er: Avtar Sorto) Lidocaine 4 % patch 1 patch 1 patch, TransDERmal, Administer over 12 Hours, Once, On Wed03/15/23 at 1035, For 1 dose, Apply patch to neck. Patch may remain in place for up to 12 hours in any 24 hour period. 1051 (Medication Garret lied - Provider: Avtar Sorto)1215 (Due: Medication Removed - Provider: Automatic Discharge Provider - Comment: Time automatically adjusted from order being discontinued) ondansetron ODT (Zofran-ODT) disintegrating tablet 4 mg (COMPLETED) 4 mg, Oral, Once, On Wed03/15/23 at 1035, For 1 dose 1051 (Given - Provid er: Avtar Sorto) Scheduled Medication Order 05/14/2023 05/15/2023 05/16/2023 aspirin chewable tablet 324 mg (COMPLETED) 324 mg, Oral, Once, On 05/16/23 at 1255, For 1 dose 1259 (Given - Provid er: Esteban Amanda) magnesium oxide (Mag-Ox) tablet 400 mg (COMPLETED) 400 mg, Oral, Once, On 05/16/23 at 1335, For 1 dose 1336 (Given - Provid er: Brendan Fang RN) meclizine (Antivert) tablet 25 mg (COMPLETED) 25 mg, Oral, Once, On 05/16/23 at 1255, For 1 dose 1259 (Given - Provid er: Esteban Amanda) sodium chloride 0.9 % bolus 1,000 mL (COMPLETED) 1,000 mL, IntraVENous, at 1,000 mL/hr, Administer over 1 Hours, Once, On 05/16/23 at 1255, For 1 dose 1300 (New Bag - Prov ider: Esteban Amanda)1525 (Stopped - Provider: Brendan Fang RN) Scheduled Medication Order 10/10/2023 10/11/2023 10/12/2023 aspirin EC tablet 81 mg 81 mg, Oral, Daily, First dose on Wed10/12/23 at 0900, Do not crush, chew, or split. 0852 (Given - Provid er: Casandra Donald RN) buPROPion XL (Wellbutrin XL) 24 hr tablet 300 mg 300 mg, Oral, Daily, First dose on Wed10/12/23 at 1125, Do not crush, chew, or split. 1216 (Given - Provid er: Casandra Donald RN) busPIRone (Buspar) tablet 10 mg 10 mg, Oral, 2 times daily, First dose on Wed10/12/23 at 1125 1217 (Given - Provid er: Casandra Donald RN) dextrose 10 % infusion (COMPLETED) 75 mL/hr, IntraVENous, Once, On Wed10/11/23 at 2045, For 1 dose 2047 (New Bag - Provider: Kati Godfrey RN)2116 (Rate/Dose Change - Provider: Kati Godfrey RN - Comment: verbal per Dr Calero)2323 (Rate/Dose Verify - Provider: Pinky Copeland RN)2324 (Stopped - Provider: Pinky Copeland RN) dextrose 50 % solution 50 mL (COMPLETED) 50 mL, IntraVENous, Once, On Wed10/11/23 at 2014, For 1 dose 2011 (Given - Provider: Kati Godfrey RN) dextrose 50 % solution 50 mL (COMPLETED) 50 mL, IntraVENous, Once, On Wed10/11/23 at 2119, For 1 dose 2114 (Given - Provider: Kati Godfrey RN) Insulin Lispro (Humalog) injection 0-6 Units 0-6 Units, SubCUTAneous, 3 times daily with meals, First dose on Wed10/12/23 at 1250, Low Dose Correction Algorithm Glucose: Dose: LESS than 139 No Insulin 140-199 1 Unit 200-249 2 Units 250-299 3 Units 300-349 4 Units 350-400 5 Units Above 400 6 Units 1344 (Not Given - Pr ovider: Casandra Donald RN - Reason: Other - Comment: 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 since patient ate prior to BGT check)1700 (Canceled Entry - Provider: Automatic Discharge Provider - Comment: Automatically canceled at discontinue of medication order) Insulin Lispro (Humalog) injection 5 Units 5 Units, SubCUTAneous, 3 times daily with meals, First dose on Wed10/12/23 at 1250 1343 (Given - Provid er: Casandra Donald RN)1700 (Canceled Entry - Provider: Automatic Discharge Provider - Comment: Automatically canceled at discontinue of medication order) labetalol (Normodyne) tablet 100 mg 100 mg, Oral, Every 12 hours, First dose on Wed10/12/23 at 0110 0209 (Given - Provid er: Pinky Copeland RN)1217 (Given - Provider: Casandra Donald RN) methylPREDNISolone sodium succinate (PF) (SOLU-Medrol) injection 125 mg (COMPLETED) 125 mg, IntraVENous, Once, On Wed10/11/23 at 2045, For 1 dose 2045 (Given - Provider: Kati Godfrey RN) potassium chloride (Klor-Con) packet 40 mEq (COMPLETED) 40 mEq, Oral, Once, On Wed10/12/23 at 0110, For 1 dose, Dissolve each packet in 4 ounces of water = 5 mEq per 1 oz fluid. 0208 (Given - Provid er: Pinky Copeland RN) Continuous Medication Order 10/10/2023 10/11/2023 10/12/2023 dextrose 5 % and sodium chloride 0.45 % infusion (CANCELED) 75 mL/hr, IntraVENous, Continuous, Starting on Wed10/12/23 at 0110 0209 (New Bag - Prov ider: Pinky Copeland RN)0416 (Stopped - Provider: Pinky Copeland RN) sodium chloride 0.9 % infusion 50 mL/hr, IntraVENous, Continuous, Starting on Wed10/12/23 at 0415 0419 (New Bag - Prov ider: Pinky Copeland RN)0635 (Rate/Dose Verify - Provider: Pinky Copeland RN) PRN Medication Order 10/10/2023 10/11/2023 10/12/2023 acetaminophen (Tylenol) suppository 650 mg(Linked Group 1) 650 mg, Rectal, Every 6 hours PRN, mild pain (1-3), fever, For temp greater than 100.4 F (38 C), Starting on Wed10/12/23 at 0107, Administer if oral route cannot be used. Maximum dose of acetaminophen is 4000 mg from all sources in 24 hours. acetaminophen (Tylenol) tablet 650 mg(Linked Group 1) 650 mg, Oral, Every 6 hours PRN, mild pain (1-3), fever, For temp greater than 100.4 F (38 C), Starting on Wed10/12/23 at 0107, Maximum dose of acetaminophen is 4000 mg from all sources in 24 hours. albuterol 108 (90 Base) MCG/ACT inhaler 1 puff 1 puff, Inhalation, Every 6 hours PRN, wheezing, shortness of breath, Starting on Wed10/12/23 at 0107 dextrose 5 % infusion 100 mL/hr, IntraVENous, PRN, Blood sugar less than 70mg/dL, Starting on Wed10/12/23 at 1248, Start infusion following administration of dextrose 50% or glucagon. dextrose 50 % solution 12.5 g 12.5 g, IntraVENous, PRN, low blood sugar, Blood glucose less than 70 mg/dL and patient NOT ALERT or NPO., Starting on Wed10/12/23 at 1248, If patient does not respond within 5 minutes, repeat dose x1. Start D5W at 100 mL/hour until ordering provider can be reached. Repeat blood glucose in 15 minutes. If blood glucose is less than 70 mg/dL, repeat treatment and recheck blood glucose in 15 minutes x2. If using Glucostabilizer, dose as instructed per system. glucagon (human recombinant) injection 1 mg 1 mg, IntraMUSCular, PRN, low blood sugar, Blood glucose less than 70 mg/dL and patient NOT ALERT or NPO and does not have IV access., Starting on Wed10/12/23 at 1248, After administration, attempt intravenous access and start D5W at 100 mL/hr. Repeat blood glucose in 15 minutes x2 and notify provider. glucose oral gel 15 g 15 g, Oral, As needed, low blood sugar, Starting on Wed10/12/23 at 1248, If blood glucose less than 50 mg/dL and patient ALERT and NOT NPO, give 2 tubes glucose gel. If blood glucose less than 70 mg/dL and patient ALERT and NOT NPO, give 1 tube glucose gel. Repeat blood glucose in 15 minutes. If blood glucose is less than 70 mg/dL, repeat treatment and recheck blood glucose in 15 minutes x2 and notify provider. ondansetron (Zofran) injection 4 mg(Linked Group 2) 4 mg, IntraVENous, Every 6 hours PRN, nausea, vomiting, Starting on Wed10/12/23 at 0107, 1st Line. Give IV if patient is unable to take orally. If inadequate response within 60 minutes, proceed to next-line agent or contact provider if no further options ordered. ondansetron ODT (Zofran-ODT) disintegrating tablet 4 mg(Linked Group 2) 4 mg, Oral, Every 8 hours PRN, nausea, vomiting, Starting on Wed10/12/23 at 0107, 1st Line. If inadequate response within 60 minutes, proceed to next-line agent or contact provider if no further options ordered. Patient should allow tablet to dissolve on tongue. Do not remove from blister pack until just before administering. polyethylene glycol (PEG) 3350 (Miralax) packet 17 g 17 g, Oral, Daily PRN, constipation, Starting on Wed10/12/23 at 0107, 1st line for treatment of constipation - give scheduled if no bowel movement in past 24 hours. Linked Groups Order Group 1: acetaminophen (Tylenol) tablet 650 mgJump to med 650 mg, Oral, Every 6 hours PRN, mild pain (1-3), fever, For temp greater than 100.4 F (38 C), Starting on Wed10/12/23 at 0107, Maximum dose of acetaminophen is 4000 mg from all sources in 24 hours. Or acetaminophen (Tylenol) suppository 650 mgJump to med 650 mg, Rectal, Every 6 hours PRN, mild pain (1-3), fever, For temp greater than 100.4 F (38 C), Starting on Wed10/12/23 at 0107, Administer if oral route cannot be used. Maximum dose of acetaminophen is 4000 mg from all sources in 24 hours. Group 2: ondansetron ODT (Zofran-ODT) disintegrating tablet 4 mgJump to med 4 mg, Oral, Every 8 hours PRN, nausea, vomiting, Starting on Wed10/12/23 at 0107, 1st Line. If inadequate response within 60 minutes, proceed to next-line agent or contact provider if no further options ordered. Patient should allow tablet to dissolve on tongue. Do not remove from blister pack until just before administering. Or ondansetron (Zofran) injection 4 mgJump to med 4 mg, IntraVENous, Every 6 hours PRN, nausea, vomiting, Starting on Wed10/12/23 at 0107, 1st Line. Give IV if patient is unable to take orally. If inadequate response within 60 minutes, proceed to next-line agent or contact provider if no further options ordered. Scheduled Medication Order 02/17/2024 02/18/2024 02/19/2024 dexAMETHasone (PF) (Decadron) injection 10 mg (COMPLETED) 10 mg, IntraVENous, Once, On 02/19/24 at 1535, For 1 dose 1603 (Given - Provid er: Kandis Belcher RN) diphenhydrAMINE (BENADryl) injection 50 mg (COMPLETED) 50 mg, IntraVENous, Once, On 02/19/24 at 1140, For 1 dose 1239 (Given - Provid er: Kandis Belcher RN) ketorolac (Toradol) injection 30 mg (COMPLETED) 30 mg, IntraVENous, Once, On 02/19/24 at 1140, For 1 dose 1230 (Given - Provid er: Kandis Belcher RN) magnesium sulfate in D5W IVPB 1,000 mg (COMPLETED) 1,000 mg, IntraVENous, at 100 mL/hr, Administer over 1 Hours, Once, On 02/19/24 at 1535, For 1 dose, Recommended infusion rate not to exceed 1,000 mg (milligrams) per hour. 1603 (New Bag - Prov ider: Kandis Belcher RN)1703 (Stopped - Provider: Kandis Belcher RN) metoclopramide (Reglan) injection 10 mg (COMPLETED) 10 mg, IntraVENous, Once, On 02/19/24 at 1140, For 1 dose 1239 (Given - Provid er: Kandis Belcher RN) sodium chloride 0.9 % bolus 1,000 mL (COMPLETED) 1,000 mL, IntraVENous, at 1,000 mL/hr, Administer over 1 Hours, Once, On 02/19/24 at 1140, For 1 dose 1240 (New Bag - Prov ider: Kandis Belcher RN)1340 (Stopped - Provider: Kandsi Belcher RN) valproate (Depacon) 500 mg in sodium chloride 0.9 % 100 mL IVPB (COMPLETED) 500 mg, IntraVENous, at 100 mL/hr, Administer over 60 Minutes, Once, On 02/19/24 at 1600, For 1 dose 1707 (New Bag - Prov ider: Kandis Belcher RN)1807 (Stopped - Provider: Kandis Beclher RN) PRN Medication Order 02/17/2024 02/18/2024 02/19/2024 uvsyiloizg-sgatopyoewuzj-xfjdwhx e 50-325-40 MG per tablet 1 tablet 1 tablet, Oral, Every 4 hours PRN, headaches, Starting on 02/19/24 at 1533 1603 (Given - Provid er: Kandis Belcher RN) Scheduled Medication Order 09/25/2024 09/26/2024 09/27/2024 acetaminophen (Tylenol) tablet 650 mg (COMPLETED) 650 mg, Oral, Once, On 09/27/24 at 1535, For 1 dose, Maximum dose of acetaminophen is 4000 mg from all sources in 24 hours. 1550 (Given - Provid er: Yogesh Holloway RN) Insulin Lispro (Humalog) injection 10 Units (COMPLETED) 10 Units, SubCUTAneous, Once, On 09/27/24 at 1535, For 1 dose 1550 (Given - Provid er: Yogesh Holloway RN) lactated ringers bolus 1,000 mL(Linked Group 1) 1,000 mL, IntraVENous, at 1,000 mL/hr, Administer over 1 Hours, Every 1 hour, First dose on 09/27/24 at 1500, For 2 doses 1549 (New Bag - Prov ider: Yogesh Holloway RN)1600 (Not Given - Provider: Yogesh Holloway RN - Reason: Other - Comment: repeat order)1651 (Stopped - Provider: Yogesh Holloway RN) sodium chloride 0.9 % bolus 1,000 mL (COMPLETED) 1,000 mL, IntraVENous, at 1,000 mL/hr, Administer over 1 Hours, Once, On 09/27/24 at 1545, For 1 dose 1555 (New Bag - Prov ider: Yogesh Holloway RN)1655 (Stopped - Provider: Yogesh Holloway RN) Continuous Medication Order 09/25/2024 09/26/2024 09/27/2024 lactated Ringer's infusion(Linked Group 1) 500 mL/hr, IntraVENous, Continuous, Starting on 09/27/24 at 1700, Initiate after bolus. When blood glucose is LESS than or EQUAL to 250 mg/dL discontinue and follow appropriate order. DO NOT restart infusion due to subsequent blood glucose levels. 1700 (Not Given - Pr ovider: Yogesh Holloway RN - Reason: Other) PRN Medication Order 09/25/2024 09/26/2024 09/27/2024 dextrose 5 % and sodium chloride 0.45 % infusion(Linked Group 1) 150 mL/hr, IntraVENous, Continuous PRN, blood glucose LESS than or EQUAL to 250 mg/dL, Starting on Wed09/27/24 at 1658, When blood glucose is LESS than or EQUAL to 150 mg/dL discontinue and follow appropriate order. DO NOT restart infusion due to subsequent blood glucose levels. dextrose 5 % and sodium chloride 0.45 % infusion(Linked Group 1) 250 mL/hr, IntraVENous, Continuous PRN, blood glucose LESS than or EQUAL to 150 mg/dL, Starting on Wed09/27/24 at 1658 dextrose 5 % infusion 100 mL/hr, IntraVENous, PRN, Blood sugar less than 70mg/dL, Starting on Wed09/27/24 at 1457, Start infusion following administration of dextrose 50% or glucagon. dextrose 50 % solution 12.5 g 12.5 g, IntraVENous, PRN, low blood sugar, Blood glucose less than 70 mg/dL and patient NOT ALERT or NPO., Starting on Wed09/27/24 at 1457, If patient does not respond within 5 minutes, repeat dose x1. Start D5W at 100 mL/hour until ordering provider can be reached. Repeat blood glucose in 15 minutes. If blood glucose is less than 70 mg/dL, repeat treatment and recheck blood glucose in 15 minutes x2. If using Glucostabilizer, dose as instructed per system. glucagon (human recombinant) injection 1 mg 1 mg, IntraMUSCular, PRN, low blood sugar, Blood glucose less than 70 mg/dL and patient NOT ALERT or NPO and does not have IV access., Starting on Wed09/27/24 at 1457, After administration, attempt intravenous access and start D5W at 100 mL/hr. Repeat blood glucose in 15 minutes x2 and notify provider. glucose oral gel 15 g 15 g, Oral, As needed, low blood sugar, Starting on Wed09/27/24 at 1457, If blood glucose less than 50 mg/dL and patient ALERT and NOT NPO, give 2 tubes glucose gel. If blood glucose less than 70 mg/dL and patient ALERT and NOT NPO, give 1 tube glucose gel. Repeat blood glucose in 15 minutes. If blood glucose is less than 70 mg/dL, repeat treatment and recheck blood glucose in 15 minutes x2 and notify provider. Linked Groups Order Group 1: lactated ringers bolus 1,000 mLJump to med 1,000 mL, IntraVENous, at 1,000 mL/hr, Administer over 1 Hours, Every 1 hour, First dose on Wed09/27/24 at 1500, For 2 doses And lactated Ringer's infusionJump to med 500 mL/hr, IntraVENous, Continuous, Starting on Wed09/27/24 at 1700, Initiate after bolus. When blood glucose is LESS than or EQUAL to 250 mg/dL discontinue and follow appropriate order. DO NOT restart infusion due to subsequent blood glucose levels. And dextrose 5 % and sodium chloride 0.45 % infusionJump to med 150 mL/hr, IntraVENous, Continuous PRN, blood glucose LESS than or EQUAL to 250 mg/dL, Starting on Wed09/27/24 at 1658, When blood glucose is LESS than or EQUAL to 150 mg/dL discontinue and follow appropriate order. DO NOT restart infusion due to subsequent blood glucose levels. And dextrose 5 % and sodium chloride 0.45 % infusionJump to med 250 mL/hr, IntraVENous, Continuous PRN, blood glucose LESS than or EQUAL to 150 mg/dL, Starting on Wed09/27/24 at 1658 Care Teams (unrecognized sec tion and content) Occupational Health Professional Relationship Specialty Start Date End Date Al Ricketts [address] [place] [address] [phone] PCP - General 12/07/22 Occupational Health Professional Relationship Specialty Start Date End Date See Ricketts MD [address] [place] [address], [facility] [place], [place] [id number] PCP - General Family Medicine 12/09/22 Occupational Health Professional Relationship Specialty Start Date End Date See Ricketts MD [address] [place] [address], [facility] [place], [place] [id number] PCP - General Family Medicine 12/09/22 Argenis Mosher, FIOS LINE INSTALLER Coil Cleaner Licensed Independent Coil Cleaner 12/30/22 Occupational Health Professional Relationship Specialty Start Date End Date See Ricketts MD [address] [facility] [place] [address] PCP - General Family Medicine 12/09/22 Argenis Mosher, JIMBO Coil Cleaner Licensed Independent Coil Cleaner 12/30/22 Occupational Health Professional Relationship Specialty Start Date End Date See Ricketts MD [address] [facility] [place] [address] PCP - General Family Medicine 12/09/22 Argenis Mosher, JIMBO Coil Cleaner Licensed Independent Coil Cleaner 12/30/22 Occupational Health Professional Relationship Specialty Start Date End Date See Ricketts MD [address] [facility] [place] [address] PCP - General Family Medicine 12/09/22 Argenis Mosher, FIOS LINE INSTALLER Coil Cleaner Licensed Independent Coil Cleaner 12/30/22 Occupational Health Professional Relationship Specialty Start Date End Date See Ricketts MD [address] [place] [address] PCP - General Family Medicine 12/09/22 Argenis Mosher, JIMBO Coil Cleaner Licensed Independent Coil Cleaner 12/30/22 Occupational Health Professional Relationship Specialty Start Date End Date See Ricketts MD [address] [facility] [place] [address] PCP - General Family Medicine 12/09/22 Argenis Mosher, JIMBO Coil Cleaner Licensed Independent Coil Cleaner 12/30/22 Occupational Health Professional Relationship Specialty Start Date End Date See Ricketts MD [address] [facility] [place] [address] PCP - General Family Medicine 12/09/22 Argenis Mosher, FIOS LINE INSTALLER Coil Cleaner Licensed Independent Coil Cleaner 12/30/22 Occupational Health Professional Relationship Specialty Start Date End Date See Ricketts MD [address] [facility] [place] [address] PCP - General Family Medicine 12/09/22 Argenis Mosher, JIMBO Coil Cleaner Licensed Independent Coil Cleaner 12/30/22 Occupational Health Professional Relationship Specialty Start Date End Date See Ricketts MD [address] [place] [address] [place] [address] PCP - General Family Medicine 12/09/22 Occupational Health Professional Relationship Specialty Start Date End Date See Ricketts MD [address] [place], [place] [address] [address] PCP - General Family Medicine 12/09/22 Occupational Health Professional Relationship Specialty Start Date End Date See Ricketts MD [address] [place], [place] [address] [address] PCP - General Family Medicine 12/09/22 Occupational Health Professional Relationship Specialty Start Date End Date See Ricketts MD [address] [place], [place] [id number] [address] PCP - General Family Medicine 12/09/22 Angel Juan MD [address] [facility] [address] [place] [address] Medical Oncology 09/22/23 Occupational Health Professional Relationship Specialty Start Date End Date See Ricketts MD [address] [place] [address] [place] [address] PCP - General Family Medicine 12/09/22 Angel Juan MD [address] [place] [address] Medical Oncology 09/22/23 Occupational Health Professional Relationship Specialty Start Date End Date See Rikcetts MD [facility] [place] [address] PCP - General Family Medicine 12/09/22 Angel Juan MD [address] [facility] [address] [place] [address] Medical Oncology 09/22/23 Occupational Health Professional Relationship Specialty Start Date End Date See Ricketts MD [facility] [place] [address] PCP - General Family Medicine 12/09/22 Angel Juan MD [address] [place] [address] Medical Oncology 09/22/23 Occupational Health Professional Relationship Specialty Start Date End Date See Ricketts MD [facility] [place] [address] PCP - General Family Medicine 12/09/22 Angel Juan MD [address] [place] [address] Medical Oncology 09/22/23 Occupational Health Professional Relationship Specialty Start Date End Date See Ricketts MD [address] [place] [address] [place] [address] PCP - General Family Medicine 12/09/22 Angel Juan MD [address] [facility] [address] [place] [address] Medical Oncology 09/22/23 Occupational Health Professional Relationship Specialty Start Date End Date See Ricketts MD [address] [place] [id number] PCP - General Family Medicine 12/09/22 Angel Juan MD [address] [facility] [address] [place] [address] Medical Oncology 09/22/23 Occupational Health Professional Relationship Specialty Start Date End Date See Ricketts MD [address] [place] [id number] PCP - General Family Medicine 12/09/22 Angel Juan MD [address] [facility] [address] [place] [address] Medical Oncology 09/22/23 Occupational Health Professional Relationship Specialty Start Date End Date See Ricketts MD [address] [place] [id number] PCP - General Family Medicine 12/09/22 Angel Juan MD [address] [facility] [address] [place] [address] Medical Oncology 09/22/23 Occupational Health Professional Relationship Specialty Start Date End Date See Ricketts MD [address] [place] [address] PCP - General Family Medicine 12/09/22 Angel Juan MD [address] [facility] [address] [place] [address] Medical Oncology 09/22/23 Occupational Health Professional Relationship Specialty Start Date End Date See Ricketts MD [address] [place] [id number] PCP - General Family Medicine 12/09/22 Angel Juan MD [address] [facility] [address] [place] [address] Medical Oncology 09/22/23 Occupational Health Professional Relationship Specialty Start Date End Date See Ricketts MD [address] [place] [address] PCP - General Family Medicine 12/09/22 Angel Juan MD [address] [facility] [address] [place] [address] Medical Oncology 09/22/23 Occupational Health Professional Relationship Specialty Start Date End Date See Ricketts MD [address] [place] [address] PCP - General Family Medicine 12/09/22 Angel Juan MD [address] [facility] [address] [place] [address] Medical Oncology 09/22/23 Occupational Health Professional Relationship Specialty Start Date End Date See Ricketts MD [address] [place] [address] PCP - General Family Medicine 12/09/22 Angel Juan MD [address] [facility] [address] [place] [address] Medical Oncology 09/22/23 Occupational Health Professional Relationship Specialty Start Date End Date See Ricketts MD [address] [place] [id number] PCP - General Family Medicine 12/09/22 Angel Juan MD [address] [facility] [address] [place] [address] Medical Oncology 09/22/23 Occupational Health Professional Relationship Specialty Start Date End Date See Ricketts MD [address] [place] [address] PCP - General Family Medicine 12/09/22 Angel Juan MD [address] [facility] [address] [place] [address] Medical Oncology 09/22/23 Occupational Health Professional Relationship Specialty Start Date End Date See Ricketts MD [address] [place] [id number] PCP - General Family Medicine 12/09/22 Angel Juan MD [address] [facility] [address] [place] [address] Medical Oncology 09/22/23 Occupational Health Professional Relationship Specialty Start Date End Date See Ricketts MD [address] [place] [id number] PCP - General Family Medicine 12/09/22 Angel Juan MD [address] [facility] [facility] [address] [place] [address] Medical Oncology 09/22/23 Occupational Health Professional Relationship Specialty Start Date End [place] [address] PCP - General Family Medicine 12/09/22 Angel Juan MD [address] [facility] [address] [place] [address] Medical Oncology 09/22/23 Occupational Health Professional Relationship Specialty Start Date End [place] [address] PCP - General Family Medicine 12/09/22 Angel Juan MD [address] [facility] [address] [place] [address] Medical Oncology 09/22/23 Occupational Health Professional Relationship Specialty Start Date End Date See Ricketts MD [address] [place], [place] [id number] [address] PCP - General Family Medicine 12/09/22 Angel Juan MD [address] [facility] [address] [place] [address] Medical Oncology 09/22/23 Occupational Health Professional Relationship Specialty Start Date End Date See [facility]etts [facility] [place] [address] PCP - General Family Medicine 12/09/22 Angel Juan MD [address] [facility] [address] [place], [place] [id number] Medical Oncology 09/22/23 Occupational Health Professional Relationship Specialty Start Date End [place] [address] PCP - General Family Medicine 12/09/22 Angel Juan MD [address] [facility] [address] [place] [address] Medical Oncology 09/22/23 Occupational Health Professional Relationship Specialty Start Date End [place] [address] PCP - General Family Medicine 12/09/22 Angel Juan MD [address] [facility] [address] [place] [address] Medical Oncology 09/22/23 Occupational Health Professional Relationship Specialty Start Date End Date See Ricketts MD [address] [place] [id number] PCP - General Family Medicine 12/09/22 Angel Juan MD [address] [facility] [address] [place] [address] Medical Oncology 09/22/23 Occupational Health Professional Relationship Specialty Start Date End [place] [address] PCP - General Family Medicine 12/09/22 Angel Juan MD [address] [place] [address] Medical Oncology 09/22/23 Occupational Health Professional Relationship Specialty Start Date End Date See Ricketts MD [facility] [place] [address] PCP - General Family Medicine 12/09/22 Angel Juan MD [address] [place] [address] Medical Oncology 09/22/23 Occupational Health Professional Relationship Specialty Start Date End [place] [address] PCP - General Family Medicine 12/09/22 Angel Juan MD [address] [facility] [address] [place] [address] Medical Oncology 09/22/23 Occupational Health Professional Relationship Specialty Start Date End [place] [address] PCP - General Family Medicine 12/09/22 Angel Juan MD [address] [facility] [address] [place] [address] Medical Oncology 09/22/23 Occupational Health Professional Relationship Specialty Start Date End Date See Ricketts MD [facility] [place] [address] PCP - General Family Medicine 12/09/22 Angel Juan MD [address] [facility] [address] [place] [address] Medical Oncology 09/22/23 FOR RECORDS PERTAINING TO PATIENTS WHO ARE OR HAVE BEEN ENROLLED IN A CHEMICAL DEPENDENCY/SUBSTANCEABUSE PROGRAM, SOME INFORMATION MAY BE OMITTED. This clinical summary was aggregated from multiple sources. Caution should be exercised in using it in the provision of clinical care. This summary normalizes information from multiple sources, and as a consequence, information in this document may materially change the coding, format and clinical context of patient data. In addition, data may be omitted in some cases. CLINICAL DECISIONS SHOULD BE BASED ON THE PRIMARY CLINICAL RECORDS. [employer] provides no warranty or guarantee of the accuracy or completeness of information in this document.
[2024-12-16 08:56] LABS: Absolute Lymphocyte Count 0.58 X10^3/uL (0.83-4.51); Absolute Neutrophil Count 2.7 X10^3/uL (2.0-7.7); Basophil# 0.01 X10^3/uL; Basophil% 0.3 % (0-1); Hematocrit 34.7 % (37-47); Hemoglobin 11.6 g/dL (12.0-15.0); Lymphocyte # 0.58 X10^3/ul (0.83-4.51); Mean Corp Hgb Conc 33.4 g/dL (32-36); Mean Corpuscular Volume 83.8 fL (81-99); Mean Platelet Vol. 11.3 fl (6.2-12.0); Monocyte# 0.33 X10^3/uL; Monocyte% 9.1 % (0-10); NRBC Flagged by Analyzer 0 % (0-5); Neutrophil # 2.69 X10^3/uL (2.7-7.7); Neutrophil % 74.3 % (47-70); POSITIVE COUNT YES; POSITIVE DIFFERENTIAL YES; Platelet Count 52 K/mm3 (150-450); RBC Distribution Width CV 15.8 % (11.6-14.6); RBC Distribution Width SD 47.7 fl (35.1-43.9); Red Blood Count 4.14 M/mm3 (4.2-5.4); White Blood Count 3.6 K/mm3 (4.4-11.0)
[2024-12-17 08:08] LABS: GGTP 66 IU/L (0-60)
== END | disposition home or self-care (01) ==
LOC: LAB 08:14
PROVIDERS: PCP Family Medicine; Referring Provider Nurse Practitioner Acute Care; Visit Provider Nurse Practitioner Acute Care
DX: K74.60 Unspecified cirrhosis of liver (principal); D61.818 Other pancytopenia; D69.6 Thrombocytopenia, unspecified; Z51.81 Encounter for therapeutic drug level monitoring
CPT/HCPCS: 36415; 82977; 85025

== ENCOUNTER 2024-12-18 05:57 | Day surgery (SDC) | payer BC, SELFPAY ==
--- NOTE | 2024-12-14 15:19 | PAT.ANE_ITS ---
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 When Was Last Pacemaker Check QUESTION #4 FULL TEXT: You/Your Family Experience fever (hyperthermia) with Anesthesia Last Oral Intake Last Oral intake: Last Oral Intake NPO since Meds taken in AM with sips of water? 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 Has anyone observed you stop breathing during sleep? STOP Results Positive 12/14/24 10:48 QUESTION #5 FULL TEXT : Do you snore loudly (louder than talking or can be heard through closed doors)? 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 Specify any problems Hx of Preganancy in last 3 N/A 12/14/24 10:48 Months Nurse Filling Out Transfusion NBUCHER 12/14/24 10:48 & Questions: Date: 12/14/24 12/14/24 10:48 Time: 10:50 12/14/24 10:48 Patient unable to answer at this time (ie. 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 process worker: /Reproductive Hx- poultry process worker Hx Now No 12/14/24 10:48 Gestational Age (in weeks): EDC: Hx Hx Para Hx Section SAB No 12/14/24 10:48 [facility] Medical History (Updated 12/14/24 @ 10:59 by Holly Davis) Arthritis Anemia High cholesterol History of Crohn's disease History of IBS GERD (gastroesophageal reflux disease) Sleep apnea PVT (portal vein thrombosis) Pancytopenia Liver disease Loss of hearing Wears glasses Wears dentures Post-menopausal History of steroid therapy Insulin dependent diabetes mellitus Restless legs Back pain Dietary restriction Heartburn History of ulceration Colitis Former smoker CPAP (continuous positive airway pressure) dependence Shortness of breath on exertion Asthma Chronic cough Leg cramps History of edema History of echocardiogram History of stress test Cardiology follow-up encounter Disease of gingiva due to infection Incisional hernia Lung infection MDD (major depressive disorder) Allergies Contact with and (suspected) exposure to other viral communicable diseases URI (upper respiratory infection) Concussion History of tobacco use Encounter for screening for malignant neoplasm of lung in former smoker who quit in past 15 years with 30 pack year history or greater Trochanteric bursitis of left hip Right leg weakness Rectal bleed Hemorrhoids Fatigue Elevated transaminase level COPD (chronic obstructive pulmonary disease) Proteinuria Osteoarthritis Obesity Anxiety Hyperglycemia Hyponatremia Essential hypertension Migraines Depression Thrombocytopenia Home Medications ?Medication ?Instructions ?Recorded ?Last Taken ?Type albuterol sulfate 90 mcg/actuation 2 puff inhalation Q 6H PRN PRN 07/29/20 10/01/23 History aerosol inhaler Shortness Of Breath labetalol 100 mg tablet 100 mg PO BID 07/29/2009/30 History metformin 1,000 mg tablet 1,000 mg PO BIDCM 07/29/20 0 10/01/23 History bupropion HCl 300 mg 24 hr tablet, 300 mg PO QAM 30 da ys #30 tabs 02/01/23 10/01/23 Rx extended release buspirone 10 mg tablet 10 mg PO BID 10/31/24 Unknow n History glimepiride 4 mg tablet 4 mg PO QAM 10/31/24 Unknown History insulin glargine 100 unit/mL 16 unit subcut QHS Unknown History subcutaneous solution (Lantus U-100 Insulin) lactulose 10 gram/15 mL oral 10 g (15 mL) PO QDAY 90 d ays 10/31/24 Unknown Rx solution #1,350 mL mecobalamin (vitamin B12) 10,000 10,000 mcg IM QMONTH 10/31/24 Unknown History mcg solution for injection rosuvastatin 5 mg tablet 5 mg PO QDAY 10/31/24 Unknow n History tirzepatide 5 mg/0.5 mL 5 mg subcut QWEEK 10/31/24 0 12/10/24 History subcutaneous pen injector (Mounjaro) apixaban 2.5 mg tablet (Eliquis) 2.5 mg PO BID #60 tab s 11/29/24 12/12/24 Rx pantoprazole 40 mg tablet,delayed 40 mg PO QDAY #90 ta bs 12/06/24 Unknown Rx release peg 3350-electrolytes 236 240 ml PO Q10M #4,000 mL 09/05 Unknown Rx gram-22.74 gram-6.74 gram-5.86 gram solution (Golytely) Allergy/AdvReac Type Severity Reaction Status Date / Time cat dander Allergy Severe Swelling Verified 12/14/24 10:44 lisinopril AdvReac Intermediate edema and Verified 12/14/24 10:44 difficulty breathing Family History Sister TBI (traumatic brain injury) Colon cancer Brother Substance abuse Depression Seizures Father Hypertension Prostate cancer Heart disease Arthritis Myocardial infarction Kidney disease Mother Depression Heart disease Diabetes Asthma Osteoporosis Respiratory disease Surgical History H/O tooth extraction History of incisional hernia repair History of tonsillectomy and adenoidectomy History of endometrial ablation H/O colonoscopy History of cholecystectomy Status post carpal tunnel release H/O cardiac catheterization Social History household members: spouse Smoking Status: Former smoker alcohol intake: never substance use type: does not use Audit: Pertinent Findings Pertinent Findings EKG Perinent findings: April 23, 2024. Normal sinus rhythm. Left anterior fascicular block. Stress test pertinent findings: March 31, 2022. EF is 70%. Rest and stress SPECT demonstrate relatively uniform tracer uptake and perfusion. Recommendation Anesthesia Recommendation Anesthesia recommendation: OPTIMIZED for anesthesia
[2024-12-18] VITALS (7 sets, daily range): BP systolic 122–133; BP diastolic 74–83; PULSE 71–76; RESP 12–18; TEMP 36.2–37.4; O2SAT 96–100; BMI 44.2
--- OUTSIDE RECORDS SUMMARY | 2024-12-18 06:02 | XMS RPT_ITS | CCD ---
Author Organization [facility] Care Team Providers Care Inspector Motor Vehicles Name Role Phone PROVIDER, UNKNOWN Unavailable Unavailable See Ricketts Unavailable Unavailable Sang Preston Unavailable Unavailab See Maldonado Primary Care Provider [phone] See Ricketts Primary Care Provider Dr. Rik Peña Primary Care Provider Dr. Rik Peña Referring Provider Dr. Rosales Oviedo Attending Provider Dr. Rik Peña Other Provider Dr. Rik Gloria Attending Provider [phone] Juan C SALDIVAR, JANNA-C Dee Attending Provider Dr. Rik Peña Primary Care Provider Dr. Rik ePña Referring Provider Dr. Rosales Oviedo Attending Provider Dr. Rik Peña Other Provider Dr. Rik Gloria Attending Provider Juan C ACCIDENT EXAMINER, ACCIDENT EXAMINER-C Dee Attending Provider Juan C ACCIDENT EXAMINER, ACCIDENT EXAMINER-C Dee Referring Provider Al Ricketts Primary Care Provider [phone] See Ricketts MD Primary Care Provider See Ricketts MD Primary Care Provider Argenis Blackwell Unavailable Unavailab caleb Juan MD, Yiping Unavailable Drake WOODSON, Angel Unavailable SCAR SEYMOUR Attending Unavailable LILIAM, SEE Primary Care Unavailable Liliam, See Primary Care Unavailable Portillo, Deisi Attending Unavailable Portillo, Deisi Referring Unavailable Liliam, See Primary Care Unavailable Portillo, Deisi Attending Unavailable Portillo, Deisi Referring Unavailable Liliam, See Primary Care Unavailable Portillo, Deisi Attending Unavailable Portillo, Deisi Referring Unavailable Liliam, See Primary Care Unavailable Liliam, See Referring Unavailable Stanley Beach Attending Unavailable Liliam, See Primary Care Unavailable Liliam, See Referring Unavailable IsckarRosales silveira Attending Unavailable Liliam, See Primary Care Unavailable CovarrubiasAlfonso Attending Unavailable Liliam, See Primary Care Unavailable Rc Freeman Attending Unavailabl e Liliam, See Primary Care Unavailable Reodica, Lino Referring Unavailable Reodica, Lino Attending Unavailable Liliam, See Primary Care Unavailable Liliam, Robles Referring Unavailable Liliam, Robles Attending Unavailable Liliam, See Primary Care Unavailable Liliam, See Referring Unavailable Hugo Pierre Attending Unavailable Liliam, See Primary Care Unavailable Liliam, See Referring Unavailable Portillo, Deisi Attending Unavailable Liliam, See Primary Care Unavailable Portillo, Deisi Attending Unavailable Portillo, Deisi Referring Unavailable Liliam, See Primary Care Unavailable Portillo, Deisi Attending Unavailable Portillo, Deisi Referring Unavailable Liliam, See Primary Care Unavailable Liliam, See Referring Unavailable Juan Francisco Evans Attending Unavailable Liliam, See Primary Care Unavailable Portillo, Deisi Attending Unavailable Portillo, Deisi Referring Unavailable Allergies Allergy Classification Reported Allergen(s) Allergy Type Date of Onset Reaction(s) Facility Cat Hair Extract (2 sources) Cat Hair Extract Drug Allergy 5 Anaphylaxis, Swelling [facility] Pollen (2 sources) Pollen Substance Allergy 3 Unknown [facility] (20 sources) Cat Hair Extract Drug Allergy 5 Swelling, Anaphylaxis [facility], [place] (16 sources) cat dander; Translations: [cat dander] Allergy to substance 5 Anaphylaxis, Swelling [facility] (20 sources) Pollen Propensity to adverse reactions 3 Unknown [facility] [employer] (1 source) Cat Hair Extract Allergy to substance 5 Anaphylaxis, Swelling [facility] [employer] (20 sources) Lisinopril Propensity to adverse reactions 3 Angioedema [facility] (1 source) Lisinopril Drug Allergy 5 [facility] Repository Medications Current Medications Medication Drug Class(es) Dates Sig (Normalized) Sig (Original) acetaminophen 650 mg / dextromethorphan hydrobromide 20 mg / guaiFENesin 400 mg / phenylephrine hydrochloride 10 mg powder for oral solution (1 source) Uncompetitive V-omnlwt-H-aspartat e Receptor Antagonist, Sigma-1 Agonist, alpha-1 Adrenergic Agonist Phenylephrine-DM- GG-APAP (MUCINEX FAST-MAX) 54-25-332-650 MG PACK Take by mouth 0 Active acetaminophen 325 mg / HYDROcodone bitartrate 5 mg oral tablet (1 source) Opioid Agonist Start: 09-02-2024 take 1 tablet by mouth every six hours as needed for pain HYDROcodone-aceta minophen (Yancey) 5-325 MG tablet TAKE 1 TABLET BY [...] 12:00am Start: 05-31-2020 take 1 tablet by herve th once [...] unspecified whether custodial insulin use (HCC) Take 1 tablet (2 [...] hyperglycemia, unspecified whether custodial insulin use (HCC) Inject 16 Units under the skin Nightly. 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 30 g 02/26/2024 02/25/2025 Active Start: 07-29-2020 End: 04-07-2022 Nystatin Discontinued 1 APPL IC TOPICAL THREE TIMES A DAY July 29, 2020 12:00am April 07, 2022 1:15pm Start: 04-08-2020 nystatin (MYCO STATIN) 817491 UNIT/GM cream Indications: Skin yeast infection Apply [...] tablet (1 source) Serotonin Reuptake Inhibitor Start: take 1 tablet by mouth once daily in the morning PARoxetine (PAXIL) 40 MG tablet Indications: Moderate episode of recurrent major depressive disorder (HCC) , Anxiety Take 1 tablet by mouth every morning 30 tablet 2 08/07/2019 Active rosuvastatin calcium 5 mg oral tablet (8 sources) HMG-CoA Reductase Inhibitor Start: End: 08-20-2 025 take 1 tablet by mouth once [...] 12:00am Start: 05-28-2020 take 1 capsule by [facility] once daily venlafaxine (EFFEXOR XR) 150 MG [...] every six hours as needed for headache dicafzllom-goslvurxaaugg-jyvtjfoc 50-325 -40 MG tablet Take 1 tablet by mouth every 6 hours as needed for headaches for up to 5 days. 20 tablet 02/19/2024 02/24/2024 Active [id number] 200 actuat albuterol 0.09 mg/actuat metered dose [...] 1:28pm Start: 10-03-2018 take 1 capsule by mo uth once daily RA VITAMIN D-3 2000 units [...] 02/04/2023 02/16/2023 Discontinued (Therapy completed) Continuous Glucose Lumber Puller (FreeStyle Linda 3 [place]) device (17 sources) Start: 11-16-2023 End: 06-28-2024 Continuous Glucose Lumber Puller (FreeStyle Linda 3 [place]) device Indications: Type 2 diabetes mellitus with polyneuropathy (HCC) 1 Device daily. 1 each 11/16/2023 06/28/2024 Discontinued Start: 11-16-2023 Continuous Glu cose Lumber Puller (FreeStyle Linda 3 [place]) device Indications: Type 2 diabetes mellitus with polyneuropathy (HCC) 1 Device daily. 1 each 11/16/2023 Active Start: 11-16-2023 Continuous Glu cose Lumber Puller (FreeStyle Linda 3 [place]) device Indications: Type 2 diabetes mellitus with polyneuropathy (HCC) 1 Device daily. 1 each 0 11/16/2023 Active Continuous Glucose Sensor (FreeStyle Linda 3 Sensor) misc (17 sources) Start: 11-16-2023 End: 06-28-2024 Continuous Glucose Sensor (FreeStyle Ilnda 3 Sensor) [facility] Indications: Type 2 diabetes mellitus with polyneuropathy (HCC) every 14 (fourteen) days. 2 each 11/16/2023 06/28/2024 Discontinued Start: 11-16-2023 Continuous Glu cose Sensor (FreeStyle Linda 3 Sensor) [facility] Indications: Type 2 diabetes mellitus with polyneuropathy [...] Start: 09-07-2022 take 1 tablet by herve twice daily as needed hydrOXYzine HCl (Atarax) [...] disintegrating tablet 4 mg polyethylene glycol 3350 25835 mg powder for oral solution (4 sources) Osmotic Laxative Start: 10-12-2023 End: 10-12-2023 take 17 g by mouth every twenty-four hours as needed for constipation 17 g, Oral, Daily PRN, constipation, Starting on Wed10/12/23 at 0107, 1st line for treatment of constipation - give scheduled if no bowel movement in past 24 hours. 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) , Uncontrolled type 2 diabetes mellitus with complication (HCC) inject 130 units before breakfast and 85 units before dinner 18 mL 8 01/15/2020 Active Start: 06-30-2019 insulin regula r human (HUMULIN R U-500 KWIKPEN) 500 UNIT/ML SOPN concentrated injection pen Indications: Uncontrolled type 2 diabetes mellitus with microalbuminuria, with long-term current use of insulin (HCC) , assisted current use of insulin (HCC) inject 130 [...] Abdominal pain; Translations: [Unspecified abdominal pain] Onset: 04-22-2023 Resolved: 11-11-2023 11-11-2023 Episodic Acute and unspecified [...] 2018 01-15-2020 Chronic Other aftercare (2 sources) assisted (current) use of insulin; Translations: [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, [address] CBC W/Diff, Automatedon 06- Absolute Lymph 0.58 X10 3/uL Low 0.83-4.51 [facility] Comment on above: Performed By: #### L 100.0100, L501.5101 ####[facility] [address] [place], [address] Absolute Neut 2.7 X10 3/uL Normal 2.0-7.7 [facility] Comment on above: Performed By: #### L 100.0100, L501.5101 ####[facility] [address] [place], [address] Basophils/100 WBC (Bld) 0.3 % Normal 0-1 [facility] Comment on above: Performed By: #### L 100.0100, L501.5101 ####[facility] [address] [place], [address] Eosinophils/100 WBC (Bld) 0.0 % Normal 0-5 [facility] Comment on above: Performed By: #### L 100.0100, L501.5101 ####[facility] [address] [place], [address] Erythrocyte distribution width (RBC) [Ratio] 15.8 % High 11.6-14.6 [facility] Comment on above: Performed By: #### L 100.0100, L501.5101 ####[facility] [address] [place], [address] Hematocrit (Bld) [Volume fraction] 34.7 % Low 37-47 [facility] Comment on above: Performed By: #### L 100.0100, L501.5101 ####[facility] [address] [place], [address] Hemoglobin (Bld) [Mass/Vol] 11.6 g/dL Low 12.0-15.0 [facility] Comment on above: Performed By: #### L 100.0100, L501.5101 ####[facility] [address] [place], [address] IG% 0.300 Normal 0.0-0.9 [facility] Comment on above: Result Comment: IG% - Immature Granulocytes (promyelocytes, myelocytes and metamyelocytes) > 1% indicates that a LEFT SHIFT is Present. Performed By: #### L 100.0100, L501.5101 ####[facility] [address] [place], [address] Lymphocytes/100 WBC (Bld) 16.0 % Low 19-41 [facility] Comment on above: Performed By: #### L 100.0100, L501.5101 ####[facility] [address] [place], [address] MCH (RBC) [Entitic mass] 28.0 pg Normal 27.0-32.0 [facility] Comment on above: Performed By: #### L 100.0100, L501.5101 ####[facility] [address] [place], [address] MCHC (RBC) [Mass/Vol] 33.4 g/dL Normal 32-36 [facility] Comment on above: Performed By: #### L 100.0100, L501.5101 ####[facility] [address] [place], [address] MCV (RBC) [Entitic vol] 83.8 fL Normal 81-99 [facility] Comment on above: Performed By: #### L 100.0100, L501.5101 ####[facility] [address] [place], [address] Monocytes/100 WBC (Bld) 9.1 % Normal 0-10 [facility] Comment on above: Performed By: #### L 100.0100, L501.5101 ####[facility] [address] [place], [address] Neutrophils/100 WBC (Bld) 74.3 % High 47-70 [facility] Comment on above: Performed By: #### L 100.0100, L501.5101 ####[facility] [address] [place], [address] Nucleated RBC (Bld) [#/Vol] 0 10*3/uL Normal 0-5 [facility] Comment on above: Performed By: #### L 100.0100, L501.5101 ####[facility] [address] [place], [address] Platelet mean volume (Bld) [Entitic vol] 11.3 fL Normal 6.2-12.0 [facility] Comment on above: Performed By: #### L 100.0100, L501.5101 ####[facility] [address] [place], [address] Platelets (Bld) [#/Vol] 52 10*3/uL Low 150-450 [facility] Comment on above: Performed By: #### L 100.0100, L501.5101 ####[facility] [address] [place], [address] RBC (Bld) [#/Vol] 4.14 10*6/uL Low 4.2-5.4 [facility] Comment on above: Performed By: #### L 100.0100, L501.5101 ####[facility] [address] [facility] [place], [address] RDW SD 47.7 fl High 35.1-43.9 [facility] Comment on above: Performed By: #### L 100.0100, L501.5101 ####[facility] [address] [place], [address] WBC (Bld) [#/Vol] 3.6 10*3/uL Low 4.4-11.0 [facility] Comment on above: Performed By: #### L 100.0100, L501.5101 ####[facility] [address] [place], [address] MR/PAT.ANEon 12-14-2024 [facility] Medical Records Department [address] [place] [address] PAT - Anesthesia 12/14/24 1519 MR#: [id number] Acct: [id number] Name: MELANIE CAREY Rep #: [id number] : 1965 59 From: Raymond Garrett MD PCP: Dr. See Ricketts MD [place] [facility] [place] C Location: EN Pre-Assessment Diagnosis/Proposed Procedure Planned Operative Procedure(s): EGD, CSCOPE Anesthesia History Anesthesia History - chief embalmer: Anesthesia History - chief embalmer Hx Hospitalization No 12/14/24 10:48 Any Problems [...] take am of surgery PONV PONV - chief embalmer: PONV - chief embalmer Female Yes 12/14/24 10:48 HX of Motion [...] 11/15/24 09:05 Respiratory Assessment Respiratory Assessment - chief embalmer: Respiratory Tract Infection Hx - chief embalmer Hx Respiratory Tract Infection No 12/14/24 10:48 STOP Sleep Apnea STOP Sleep Apnea - chief embalmer: STOP Sleep Apnea - chief embalmer Hx Hypertension No 12/14/24 10:48 Hx Sleep [...] Tobacco Use History Tobacco Use History - chief embalmer: Tobacco Use History - chief embalmer Tobacco Use Smoking Status Former smoker 12/14/24 10:48 Hx Tobacco Use No 12/14/24 10:48 Years Smoking Packs Smoked per Day Smoking Cessation Date was No - quit smoking greater 12/14/24 10:48 within the last 15 years than 15 years ago Hx Smoking Cessation Date 07/12/06 12/14/24 10:48 Hx Smoking Cessation No 12/14/24 10:48 Counseling Hematologic Medial History Hematologic Hx - chief embalmer: 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 [facility] [phone] 12-13-2024 [id number] Called and spoke johny Espinosa at [facility] pharmacy. It appears that the PA was going through 360 days instead of 365. Francisca was able to get it to go through at no cost. Patient called and notified that it was all taken care of and should be able to go pick it up at [facility]. 36on 12-13-2024 36 I am honestly not acosta re what the issue is. When reviewing the prescription I do not see any abnormalities. Will see if she does well using her phone as the reader. If she has any issues with that please let us know and we will see what we need to do to get the reader covered by her insurance. [id number] 12-12-2024 [id number] Please update RX. [id number] 12-11-2024 [id number] Thank you for verify ing. Rx sent for the freestyle linda 3 reader as well as sensors to the requested pharmacy. [id number] Pended. 36on 12-11-2024 36 Please verify with Binh basurto the exact brand of freestyle she is needing me to send. I want to make sure I send in the correct item for her. Thank you. Basic Metabolic Profile (BMP )on 12-08-2024 BUN/CRE 14.0 RATIO Normal 10-20 [facility] Comment on above: Performed By: #### M 100.678 #### [facility] [address] [place], [address] Calcium [Mass/Vol] 9.7 mg/dL Normal 7.6-11.0 [facility] Comment on above: Performed By: #### M 100.678 #### [facility] [address] [place], [address] Chloride [Moles/Vol] 100 mmol/L Normal 98-108 [facility] Comment on above: Performed By: #### M 100.678 #### [facility] [address] [place], [address] CO2 [Moles/Vol] 23.9 mmol/L Normal 21.0-32.0 [facility] Comment on above: Performed By: #### M 100.678 #### [facility] [address] [place], [address] Creatinine [Mass/Vol] 1.12 mg/dL Normal 0.70-1.20 [facility] Comment on above: Performed By: #### M 100.678 #### [facility] [address] [place], [address] GAP 10 Normal 5-15 [facility] Comment on above: Performed By: #### M 100.678 #### [facility] [address] [place], [address] GFR/1.73 sq M.predicted among non-blacks MDRD (S/P/Bld) [Vol rate/Area] 57 mL/min/{1.73_m2} Low >60 [facility] Comment on above: Result Comment: mL/m in/1.73m2 CKD-EPI Creatinine Equation (2020) Performed By: #### M 100.678 #### [facility] [address] [place], [address] Glucose [Mass/Vol] 272 mg/dL High 70-99 [facility] Comment on above: Performed By: #### M 100.678 #### [facility] [address] [place], [address] Potassium [Moles/Vol] 4.8 mmol/L Normal 3.3-5.1 [facility] Comment on above: Performed By: #### M 100.678 #### [facility] [address] [place], [address] Sodium [Moles/Vol] 135 mmol/L Normal 133-145 [facility] Comment on above: Performed By: #### M 100.678 #### [facility] [address] [place], [address] Urea nitrogen [Mass/Vol] 16 mg/dL Normal 4-19 [facility] Comment on above: Performed By: #### M 100.678 #### [facility] [address] [place], [address] CBC W/Diff, Automatedon 05-3 0-2024 Absolute Lymph 0.55 X10 3/uL Low 0.83-4.51 [facility] Comment on above: Performed By: #### M 100.678 #### [facility] [address] [place], [address] Absolute Neut 2.4 X10 3/uL Normal 2.0-7.7 [facility] Comment on above: Performed By: #### M 100.678 #### [facility] [address] [place], [address] Basophils/100 WBC (Bld) 0.3 % Normal 0-1 [facility] Comment on above: Performed By: #### M 100.678 #### [facility] [address] [place], [address] Eosinophils/100 WBC (Bld) 0.0 % Normal 0-5 [facility] Comment on above: Performed By: #### M 100.678 #### [facility] [address] [place], [address] Erythrocyte distribution width (RBC) [Ratio] 15.3 % High 11.6-14.6 [facility] Comment on above: Performed By: #### M 100.678 #### [facility] [address] [place], [address] Hematocrit (Bld) [Volume fraction] 37.3 % Normal 37-47 [facility] Comment on above: Performed By: #### M 100.678 #### [facility] [address] [place], [address] Hemoglobin (Bld) [Mass/Vol] 12.2 g/dL Normal 12.0-15.0 [facility] Comment on above: Performed By: #### M 100.678 #### [facility] [address] [place], [address] IG% 0.300 Normal 0.0-0.9 [facility] Comment on above: Result Comment: IG% - Immature Granulocytes (promyelocytes, myelocytes and metamyelocytes) > 1% indicates that a LEFT SHIFT is Present. Performed By: #### M 100.678 #### [facility] [address] [place], [address] Lymphocytes/100 WBC (Bld) 16.4 % Low 19-41 [facility] Comment on above: Performed By: #### M 100.678 #### [facility] [address] [place], [address] MCH (RBC) [Entitic mass] 27.9 pg Normal 27.0-32.0 [facility] Comment on above: Performed By: #### M 100.678 #### [facility] [address] [place], [address] MCHC (RBC) [Mass/Vol] 32.7 g/dL Normal 32-36 [facility] Comment on above: Performed By: #### M 100.678 #### [facility] [address] [place], [address] MCV (RBC) [Entitic vol] 85.4 fL Normal 81-99 [facility] Comment on above: Performed By: #### M 100.678 #### [facility] [address] [place], [address] Monocytes/100 WBC (Bld) 10.7 % High 0-10 [facility] Comment on above: Performed By: #### M 100.678 #### [facility] [address] [place], [address] Neutrophils/100 WBC (Bld) 72.3 % High 47-70 [facility] Comment on above: Performed By: #### M 100.678 #### [facility] [address] [place], [address] Nucleated RBC (Bld) [#/Vol] 0 10*3/uL Normal 0-5 [facility] Comment on above: Performed By: #### M 100.678 #### [facility] [address] [place], [address] Platelet mean volume (Bld) [Entitic vol] 10.9 fL Normal 6.2-12.0 [facility] Comment on above: Performed By: #### M 100.678 #### [facility] [address] [place], [address] Platelets (Bld) [#/Vol] 51 10*3/uL Low 150-450 [facility] Comment on above: Performed By: #### M 100.678 #### [facility] [address] [place], [address] RBC (Bld) [#/Vol] 4.37 10*6/uL Normal 4.2-5.4 [facility] Comment on above: Performed By: #### M 100.678 #### [facility] [address] [place], [address] RDW SD 47.3 fl High 35.1-43.9 [facility] Comment on above: Performed By: #### M 100.678 #### [facility] [address] [place], [address] WBC (Bld) [#/Vol] 3.4 10*3/uL Low 4.4-11.0 [facility] Comment on above: Performed By: #### M 100.678 #### [facility] [address] [place], [address] Liver Profileon 12-08-2024 Albumin [Mass/Vol] 4.0 g/dL Normal 3.5-5.0 [facility] Comment on above: Performed By: #### M 100.678 #### [facility] [address] [place], [address] ALK PHOS 116 U/L High 35-104 [facility] Comment on above: Performed By: #### M 100.678 #### [facility] [address] [place], [address] ALT [Catalytic activity/Vol] 26 U/L Normal <=34 [facility] Comment on above: Performed By: #### M 100.678 #### [facility] [address] [place], [address] AST [Catalytic activity/Vol] 32 U/L Normal <=31 [facility] Comment on above: Performed By: #### M 100.678 #### [facility] [address] [place], [address] Bilirubin [Mass/Vol] 1.03 mg/dL Normal 0.00-1.30 [facility] Comment on above: Performed By: #### M 100.678 #### [facility] [address] [place], [address] Bilirubin.direct [Mass/Vol] 0.40 mg/dL High 0.00-0.30 [facility] Comment on above: Performed By: #### M 100.678 #### [facility] [address] [place], [address] Globulin (S) [Mass/Vol] 3.6 g/dL Normal 2.2-4.2 [facility] Comment on above: Performed By: #### M 100.678 #### [facility] [address] [place], [address] T PROT 7.6 g/dL Normal 5.9-8.4 [facility] Comment on above: Performed By: #### M 100.678 #### [facility] [address] [place], [address] CBC W/Diff, Automatedon 05-2 PLT EST SLT DEC Normal ADEQ [facility] Comment on above: Performed By: #### L 500.3400, L100.0100 ####[facility] [address] [place], [address] SMEAR COMMENT Normal [facility] Comment on above: Result Comment: LYMP HOPENIA Performed By: #### L 500.3400, L100.0100 ####[facility] [address] [place], [address] Liver Profileon 11-29-2024 Albumin [Mass/Vol] 3.8 g/dL Normal 3.5-5.0 [facility] Comment on above: Performed By: #### L 500.3400, L100.0100 ####[facility] [address] [place], [address] ALK PHOS 120 U/L High 35-104 [facility] Comment on above: Performed By: #### L 500.3400, L100.0100 ####[facility] [address] [place], [address] ALT [Catalytic activity/Vol] 25 U/L Normal <=34 [facility] Comment on above: Performed By: #### L 500.3400, L100.0100 ####[facility] [address] [place], [address] AST [Catalytic activity/Vol] 27 U/L Normal <=31 [facility] Comment on above: Performed By: #### L 500.3400, L100.0100 ####[facility] [address] [place], [address] Bilirubin [Mass/Vol] 0.84 mg/dL Normal 0.00-1.30 [facility] Comment on above: Performed By: #### L 500.3400, L100.0100 ####[facility] [address] [place], [address] Bilirubin.direct [Mass/Vol] 0.37 mg/dL High 0.00-0.30 [facility] Comment on above: Performed By: #### L 500.3400, L100.0100 ####[facility] [address] [place], [address] Globulin (S) [Mass/Vol] 3.6 g/dL Normal 2.2-4.2 [facility] Comment on above: Performed By: #### L 500.3400, L100.0100 ####[facility] [address] [place], [address] T PROT 7.4 g/dL Normal 5.9-8.4 [facility] Comment on above: Performed By: #### L 500.3400, L100.0100 ####[facility] [address] [place], [address] CTA Abdomen W/WO Contraston 11-27-2024 CTA Abdomen W/WO Contrast [facility] [address] [place] [address] CTA Abdomen W/WO Contrast MR#: [id number] Acct: [id number] Name: MELANIE CAREY Rep #: [id number] : 1965 F 59 From: Addi Liao MD PCP: Dr. See Ricketts MD Status: DEP CLI Study: CTA Abdomen W/WO Contrast Date of Exam: Exam# [id number] Ordering Dr: Deisi Nath ADDENDUM by Dr. Addi Liao MD on 12/14/24 at 0540 3D post processing was performed and reviewed. Reading Location: [facility] 12/14/24 0541 Date cc: CRISTY Nath; Dr. See Ricketts MD * Signed [...] the liver, suggestive of fibrosis. Reading Location: [id number] CC: CRISTY Nath; Dr. See Ricketts MD Lock Expert: Signed Normal [facility] Urgent Care Visit Reporton 0 11-25-2024 Urgent Care Visit Report [facility] [address] [place] [address] OFFICE VISIT Date of Service: 11/25/24 MR#: [id number] Acct: [id number] Name: MELANIE CAREY Rep #: [id number] : 1965 Provider: HERMES Pereira Age/Sex: 59/F Location[place] [facility] Status: Signed Intake Vital Signs 11/15/24 09:05 [...] QWEEK 10/31/24 5 History subcutaneous pen injector (Ibrahima) amoxicillin 500 mg capsule 500 mg PO TID 7 days #21 caps 11/0911/25/24 Rx Nurse's Note: Patient has concerns for infection in her lower gum. Patient states its been going on for a couple days and the last 2 days it got worse. Patient can't wear her bottom denture. Patient states the gland under her jaw line is swollen. [facility] Medical History (Updated 11/25/24 @ 11:47 by [...] F who (more content not included)... Normal [facility] 36on 11-20-2024 36 Prescription Request : Mounjaro 5 MG/0.5ML Subcutaneous Solution Pen-injector Last medication check: 10/24/24 Last physical exam: none Next scheduled appointment: 01/09/25 Last date of refill on this medication 10/11/24 ( qty 2ml refill 0) Normal [facility] 36on 11-16-2024 36 I don't have anythin g that I did not disclose . Normal [facility] Oncology Visit Reporton Oncology Visit Report [facility] [address] [place] [address] OFFICE VISIT Date of Service: 11/15/24854 MR#: [id number] Acct: [id number] Name: MELANIE CAREY Rep #: [id number] : 1965 From: Rosales Oviedo MD Age/Sex: 59/F [place] [facility] [place]: Signed HPI Subjective Date of Service [...] recommended. She subsequently went and saw a filling machine tender at [facility] who suggested a bone marrow biopsy but it was never done. In October 2024 she was seen by gastroenterology in [facility] for complicated liver cirrhosis and an [...] paraesophageal varices. She was referred back to [place] [facility] for reconsultation since she did not wish to go back to [facility]. [facility] Medical History (Updated 11/15/24 @ 10:09 by [...] systems revi (more content not included)... Normal [facility] Abdomen Limitedon 11-10-2024 Abdomen Limited [facility] Imaging Services [address] [place], [place] [address] Abdomen Limited MR#: [id number] Acct: [id number] Name: MELANIE CAREY Rep #: [id number] : 1965 F 59 From: Paul Gutierrez MD PCP: Dr. See Ricketts MD Status: REG CLI Study: Abdomen Limited Date of Exam: 11/10/24 Exam# [id number] Ordering Dr: Deisi Nath ACCIDENT EXAMINER- C PROCEDURE: ABDOMEN LIMITED 11/10/2024 REASON FOR [...] x 8.4 x 7.3 cm. Reading Location: [facility] CC: CRISTY Nath; Dr. See Ricketts MD Lock Expert: Signed Normal [facility] Inital Evaluation (1) - PTon 11-06-2024 Inital Evaluation (1) - PT [facility] Physical Therapy [facility] [address] [place] [address] / REHABILITATION SERVICES INITIAL EVALUATION MR#: [id number] Acct: [id number] Name: MELANIE CAREY Rep #: [id number] : 1965 59 From: Melany Wright PT, Cert. MDT Referring Dr.: Dr. Robles Ricketts MD Status: RE G R Insurance: [employer] SELF PAY INSURANCE Patient's Visit Information Visit Information Visit Information: MELANIE CAREY is a 59 year old F referred to Physical Therapy by Dr. Robles Ricketts MD with a diagnosis of LOW BACK PAIN AND R HIP OA. Date of Evaluation: 11/06/24 Physical Therapist: Melany Wright PT, Cert MDT Visit Plan Frequency: 2x [...] INSTRUCTION. 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 Disability: NO Present symptoms: BABS LOW [...] DEMONSTRATE IMPROV (more content not included)... Normal [facility] RORY w/ Reflex Mult Confirmon 11-03-2024 ANTI-DNA (DS)AB TNP Normal [facility] Comment on above: Performed By: #### L 503.0106, L800.1280, L3890.6202, L500.3400, L100.0100, L300.3900, L3100.5450, L3300.0700, L3890.6301, L3100.0460, L503.6550, L803.2200, L3100.0300, L503.6030, L3890.6102, L500.2500 ####[facility] [address] [place], [address] ANTI-CHUCKY-1 TNP Normal [facility] Comment on above: Performed By: #### L 503.0106, L800.1280, L3890.6202, L500.3400, L100.0100, L300.3900, L3100.5450, L3300.0700, L3890.6301, L3100.0460, L503.6550, L803.2200, L3100.0300, L503.6030, L3890.6102, L500.2500 ####[facility] [address] [place], [place], [id number] ANTI-SS-A TNP Normal [facility] Comment on above: Performed By: #### L 503.0106, L800.1280, L3890.6202, L500.3400, L100.0100, L300.3900, L3100.5450, L3300.0700, L3890.6301, L3100.0460, L503.6550, L803.2200, L3100.0300, L503.6030, L3890.6102, L500.2500 ####[facility] [address] [place], [place], [id number] AFP, Tumor Markeron 11-03-19 AFP TUMOR DWAYNE 2.3 ng/mL Normal 0.0-9.2 [facility] Comment on above: Order Comment: N Result Comment: [facility] [employer] Electrochemiluminescence Immunoassay (ECLIA) Values obtained with different assay methods or kits cannot be used interchangeably. Results cannot be interpreted as absolute evidence of the presence or absence of malignant disease. This test is not interpretable in females. Performed By: #### L 503.0106, L800.1280, L3890.6202, L500.3400, L100.0100, L300.3900, L3100.5450, L3300.0700, L3890.6301, L3100.0460, L503.6550, L803.2200, L3100.0300, L503.6030, L3890.6102, L500.2500 ####[facility] [address] [place], [place], [id number] Anti-Mitochondrial ABon 04- ANTIMITOCHON AB <20.0 Normal 0.0-20.0 [facility] Comment on above: Result Comment: Nega tive 0.0 - 20.0 Equivocal 20.1 - 24.9 Positive >24.9 Mitochondrial (M2) Antibodies are found in 90-96% of patients with primary biliary cirrhosis. Performed By: #### L 503.0106, L800.1280, L3890.6202, L500.3400, L100.0100, L300.3900, L3100.5450, L3300.0700, L3890.6301, L3100.0460, L503.6550, L803.2200, L3100.0300, L503.6030, L3890.6102, L500.2500 ####[facility] [address] [place], [address] Anti-Smooth Muscle ABSon ANTISMOOTH MUSC 18 Units Normal 0-19 [facility] Comment on above: Result Comment: Nega tive 0 - 19 Weak positive 20 - 30 Moderate to strong positive >30 Actin Antibodies are found in 52-85% of patients with autoimmune hepatitis or chronic active hepatitis and in 22% of patients with primary biliary cirrhosis. Performed By: #### L 503.0106, L800.1280, L3890.6202, L500.3400, L100.0100, L300.3900, L3100.5450, L3300.0700, L3890.6301, L3100.0460, L503.6550, L803.2200, L3100.0300, L503.6030, L3890.6102, L500.2500 ####[facility] [address] [place], [address] Hepatitis A AB, Totalon 10-11 HEPATITIS A,TOT Positive Abnormal Negative [facility] Comment on above: Result Comment: Comm ent: The HAV total antibody assay detects both IgG and IgM but does not differentiate between them. A negative result suggests susceptibility to infection. A positive result could be due to vaccination, previously resolved infection or active infection. Testing for HAV IgM should be performed if active HAV infection is suspected. [facility] offers profiles that will automatically reflex positive HAV total antibody results to IgM (e.g., panel #[id number] HAV Antibody w/ Rfx). Performed at: [address] [id number] Contract Associate Manager: Iván Smith PhD, Phone: [phone] Performed By: #### L 503.0106, L800.1280, L3890.6202, L500.3400, L100.0100, L300.3900, L3100.5450, L3300.0700, L3890.6301, L3100.0460, L503.6550, L803.2200, L3100.0300, L503.6030, L3890.6102, L500.2500 ####[facility] [address] [place], [address] Hepatitis B Core Ab Totalon 11-02-2024 HEP B CORE,TOT Negative Normal Negative [facility] Comment on above: Performed By: #### L 503.0106, L800.1280, L3890.6202, L500.3400, L100.0100, L300.3900, L3100.5450, L3300.0700, L3890.6301, L3100.0460, L503.6550, L803.2200, L3100.0300, L503.6030, L3890.6102, L500.2500 ####[facility] [address] [facility] [place], [place], [id number] 36on 11-01-2024 36 Called [facility] for pt to call or check orat.io. [employer] messaged pt Dr. Ricketts's message. 36on 10-31-2024 36 Rx sent, I changed glimepiride to a 4 mg tablet so she does not need to take 2 of those, it looks like all the other changes she was talking about was already done, Lantus was not sent it was just sent in last week. 36 Prescription Request : metFORMIN (Glucophage) 1000 [...] 10/24/24 (no qty or refills listed) Normal [facility] Basic Metabolic Profile (BMP )on 10-31-2024 BUN/CRE 15.2 RATIO Normal - [facility] Comment on above: Performed By: #### L 503.0106, L800.1280, L3890.6202, L500.3400, L100.0100, L300.3900, L3100.5450, L3300.0700, L3890.6301, L3100.0460, L503.6550, L803.2200, L3100.0300, L503.6030, L3890.6102, L500.2500 #### [facility] [address] [place], [place], [address] Calcium [Mass/Vol] 9.5 mg/dL Normal 7.6-11.0 [facility] Comment on above: Performed By: #### L 503.0106, L800.1280, L3890.6202, L500.3400, L100.0100, L300.3900, L3100.5450, L3300.0700, L3890.6301, L3100.0460, L503.6550, L803.2200, L3100.0300, L503.6030, L3890.6102, L500.2500 #### [facility] [address] [facility] [place], [place], [id number] (491) Chloride [Moles/Vol] 100 mmol/L Normal 98-108 [facility] Comment on above: Performed By: #### L 503.0106, L800.1280, L3890.6202, L500.3400, L100.0100, L300.3900, L3100.5450, L3300.0700, L3890.6301, L3100.0460, L503.6550, L803.2200, L3100.0300, L503.6030, L3890.6102, L500.2500 #### [facility] [address] [place], [address] (121) CO2 [Moles/Vol] 23.0 mmol/L Normal 21.0-32.0 [facility] Comment on above: Performed By: #### L 503.0106, L800.1280, L3890.6202, L500.3400, L100.0100, L300.3900, L3100.5450, L3300.0700, L3890.6301, L3100.0460, L503.6550, L803.2200, L3100.0300, L503.6030, L3890.6102, L500.2500 #### [facility] [address] [place], [address] Creatinine [Mass/Vol] 1.23 mg/dL High 0.70-1.20 [facility] Comment on above: Performed By: #### L 503.0106, L800.1280, L3890.6202, L500.3400, L100.0100, L300.3900, L3100.5450, L3300.0700, L3890.6301, L3100.0460, L503.6550, L803.2200, L3100.0300, L503.6030, L3890.6102, L500.2500 #### [facility] [address] [facility] [place], [place], [id number] GAP 12 Normal 5-15 [facility] Comment on above: Performed By: #### L 503.0106, L800.1280, L3890.6202, L500.3400, L100.0100, L300.3900, L3100.5450, L3300.0700, L3890.6301, L3100.0460, L503.6550, L803.2200, L3100.0300, L503.6030, L3890.6102, L500.2500 #### [facility] [address] [facility] [place], [place], [address] GFR/1.73 sq M.predicted among non-blacks MDRD (S/P/Bld) [Vol rate/Area] 51 mL/min/{1.73_m2} Low >60 [facility] Comment on above: Result Comment: mL/m in/1.73m2 CKD-EPI Creatinine Equation (2020) Performed By: #### L 503.0106, L800.1280, L3890.6202, L500.3400, L100.0100, L300.3900, L3100.5450, L3300.0700, L3890.6301, L3100.0460, L503.6550, L803.2200, L3100.0300, L503.6030, L3890.6102, L500.2500 #### [facility] [address] [place], [place], [id number] Glucose [Mass/Vol] 161 mg/dL High 70-99 [facility] Comment on above: Performed By: #### L 503.0106, L800.1280, L3890.6202, L500.3400, L100.0100, L300.3900, L3100.5450, L3300.0700, L3890.6301, L3100.0460, L503.6550, L803.2200, L3100.0300, L503.6030, L3890.6102, L500.2500 #### [facility] [address] [place], [place], [address] Potassium [Moles/Vol] 4.3 mmol/L Normal 3.3-5.1 [facility] Comment on above: Performed By: #### L 503.0106, L800.1280, L3890.6202, L500.3400, L100.0100, L300.3900, L3100.5450, L3300.0700, L3890.6301, L3100.0460, L503.6550, L803.2200, L3100.0300, L503.6030, L3890.6102, L500.2500 #### [facility] [address] [place], [address] Sodium [Moles/Vol] 135 mmol/L Normal 133-145 [facility] Comment on above: Performed By: #### L 503.0106, L800.1280, L3890.6202, L500.3400, L100.0100, L300.3900, L3100.5450, L3300.0700, L3890.6301, L3100.0460, L503.6550, L803.2200, L3100.0300, L503.6030, L3890.6102, L500.2500 #### [facility] [address] [facility] [place], [address] Urea nitrogen [Mass/Vol] 19 mg/dL Normal 4-19 [facility] Comment on above: Performed By: #### L 503.0106, L800.1280, L3890.6202, L500.3400, L100.0100, L300.3900, L3100.5450, L3300.0700, L3890.6301, L3100.0460, L503.6550, L803.2200, L3100.0300, L503.6030, L3890.6102, L500.2500 #### [facility] [address] [place], [place], [address] CBC W/Diff, Automatedon 04-2 -2024 Absolute Lymph 0.54 X10 3/uL Low 0.83-4.51 [facility] Comment on above: Performed By: #### L 503.0106, L800.1280, L3890.6202, L500.3400, L100.0100, L300.3900, L3100.5450, L3300.0700, L3890.6301, L3100.0460, L503.6550, L803.2200, L3100.0300, L503.6030, L3890.6102, L500.2500 #### [facility] [address] [place], [place], [address] Absolute Neut 2.1 X10 3/uL Normal 2.0-7.7 [facility] Comment on above: Performed By: #### L 503.0106, L800.1280, L3890.6202, L500.3400, L100.0100, L300.3900, L3100.5450, L3300.0700, L3890.6301, L3100.0460, L503.6550, L803.2200, L3100.0300, L503.6030, L3890.6102, L500.2500 #### [facility] [address] [place], [place], [id number] Basophils/100 WBC (Bld) 0.3 % Normal 0-1 [facility] Comment on above: Performed By: #### L 503.0106, L800.1280, L3890.6202, L500.3400, L100.0100, L300.3900, L3100.5450, L3300.0700, L3890.6301, L3100.0460, L503.6550, L803.2200, L3100.0300, L503.6030, L3890.6102, L500.2500 #### [facility] [address] [facility] [place], [address] Eosinophils/100 WBC (Bld) 0.0 % Normal 0-5 [facility] Comment on above: Performed By: #### L 503.0106, L800.1280, L3890.6202, L500.3400, L100.0100, L300.3900, L3100.5450, L3300.0700, L3890.6301, L3100.0460, L503.6550, L803.2200, L3100.0300, L503.6030, L3890.6102, L500.2500 #### [facility] [address] [place], [address] Erythrocyte distribution width (RBC) [Ratio] 15.5 % High 11.6-14.6 [facility] Comment on above: Performed By: #### L 503.0106, L800.1280, L3890.6202, L500.3400, L100.0100, L300.3900, L3100.5450, L3300.0700, L3890.6301, L3100.0460, L503.6550, L803.2200, L3100.0300, L503.6030, L3890.6102, L500.2500 #### [facility] [address] [facility] [place], [address] Hematocrit (Bld) [Volume fraction] 36.1 % Low 37-47 [facility] Comment on above: Performed By: #### L 503.0106, L800.1280, L3890.6202, L500.3400, L100.0100, L300.3900, L3100.5450, L3300.0700, L3890.6301, L3100.0460, L503.6550, L803.2200, L3100.0300, L503.6030, L3890.6102, L500.2500 #### [facility] [address] [place], [address] Hemoglobin (Bld) [Mass/Vol] 11.9 g/dL Low 12.0-15.0 [facility] Comment on above: Performed By: #### L 503.0106, L800.1280, L3890.6202, L500.3400, L100.0100, L300.3900, L3100.5450, L3300.0700, L3890.6301, L3100.0460, L503.6550, L803.2200, L3100.0300, L503.6030, L3890.6102, L500.2500 #### [facility] [address] [place], [address] IG% 1.600 High 0.0-0.9 [facility] Comment on above: Result Comment: IG% - Immature Granulocytes (promyelocytes, myelocytes and metamyelocytes) > 1% indicates that a LEFT SHIFT is Present. Performed By: #### L 503.0106, L800.1280, L3890.6202, L500.3400, L100.0100, L300.3900, L3100.5450, L3300.0700, L3890.6301, L3100.0460, L503.6550, L803.2200, L3100.0300, L503.6030, L3890.6102, L500.2500 #### [facility] [address] [place], [address] Lymphocytes/100 WBC (Bld) 17.7 % Low 19-41 [facility] Comment on above: Performed By: #### L 503.0106, L800.1280, L3890.6202, L500.3400, L100.0100, L300.3900, L3100.5450, L3300.0700, L3890.6301, L3100.0460, L503.6550, L803.2200, L3100.0300, L503.6030, L3890.6102, L500.2500 #### [facility] [address] [place], [address] MCH (RBC) [Entitic mass] 27.5 pg Normal 27.0-32.0 [facility] Comment on above: Performed By: #### L 503.0106, L800.1280, L3890.6202, L500.3400, L100.0100, L300.3900, L3100.5450, L3300.0700, L3890.6301, L3100.0460, L503.6550, L803.2200, L3100.0300, L503.6030, L3890.6102, L500.2500 #### [facility] [address] [place], [address] MCHC (RBC) [Mass/Vol] 33.0 g/dL Normal 32-36 [facility] Comment on above: Performed By: #### L 503.0106, L800.1280, L3890.6202, L500.3400, L100.0100, L300.3900, L3100.5450, L3300.0700, L3890.6301, L3100.0460, L503.6550, L803.2200, L3100.0300, L503.6030, L3890.6102, L500.2500 #### [facility] [address] [place], [address] MCV (RBC) [Entitic vol] 83.4 fL Normal 81-99 [facility] Comment on above: Performed By: #### L 503.0106, L800.1280, L3890.6202, L500.3400, L100.0100, L300.3900, L3100.5450, L3300.0700, L3890.6301, L3100.0460, L503.6550, L803.2200, L3100.0300, L503.6030, L3890.6102, L500.2500 #### [facility] [address] [place], [address] Monocytes/100 WBC (Bld) 11.1 % High 0-10 [facility] Comment on above: Performed By: #### L 503.0106, L800.1280, L3890.6202, L500.3400, L100.0100, L300.3900, L3100.5450, L3300.0700, L3890.6301, L3100.0460, L503.6550, L803.2200, L3100.0300, L503.6030, L3890.6102, L500.2500 #### [facility] [address] [place], [address] Neutrophils/100 WBC (Bld) 69.3 % Normal 47-70 [facility] Comment on above: Performed By: #### L 503.0106, L800.1280, L3890.6202, L500.3400, L100.0100, L300.3900, L3100.5450, L3300.0700, L3890.6301, L3100.0460, L503.6550, L803.2200, L3100.0300, L503.6030, L3890.6102, L500.2500 #### [facility] [place], [address] Nucleated RBC (Bld) [#/Vol] 0 10*3/uL Normal 0-5 [facility] Comment on above: Performed By: #### L 503.0106, L800.1280, L3890.6202, L500.3400, L100.0100, L300.3900, L3100.5450, L3300.0700, L3890.6301, L3100.0460, L503.6550, L803.2200, L3100.0300, L503.6030, L3890.6102, L500.2500 #### [facility] [address] [place], [address] Platelet mean volume (Bld) [Entitic vol] 11.0 fL Normal 6.2-12.0 [facility] Comment on above: Performed By: #### L 503.0106, L800.1280, L3890.6202, L500.3400, L100.0100, L300.3900, L3100.5450, L3300.0700, L3890.6301, L3100.0460, L503.6550, L803.2200, L3100.0300, L503.6030, L3890.6102, L500.2500 #### [facility] [address] [place], [address] Platelets (Bld) [#/Vol] 57 10*3/uL Low 150-450 [facility] Comment on above: Performed By: #### L 503.0106, L800.1280, L3890.6202, L500.3400, L100.0100, L300.3900, L3100.5450, L3300.0700, L3890.6301, L3100.0460, L503.6550, L803.2200, L3100.0300, L503.6030, L3890.6102, L500.2500 #### [facility] [address] [place], [address] RBC (Bld) [#/Vol] 4.33 10*6/uL Normal 4.2-5.4 [facility] Comment on above: Performed By: #### L 503.0106, L800.1280, L3890.6202, L500.3400, L100.0100, L300.3900, L3100.5450, L3300.0700, L3890.6301, L3100.0460, L503.6550, L803.2200, L3100.0300, L503.6030, L3890.6102, L500.2500 #### [facility] [address] [place], [place], [id number] RDW SD 46.7 fl High 35.1-43.9 [facility] Comment on above: Performed By: #### L 503.0106, L800.1280, L3890.6202, L500.3400, L100.0100, L300.3900, L3100.5450, L3300.0700, L3890.6301, L3100.0460, L503.6550, L803.2200, L3100.0300, L503.6030, L3890.6102, L500.2500 #### [facility] [address] [place], [place], [id number] WBC (Bld) [#/Vol] 3.1 10*3/uL Low 4.4-11.0 [facility] Comment on above: Performed By: #### L 503.0106, L800.1280, L3890.6202, L500.3400, L100.0100, L300.3900, L3100.5450, L3300.0700, L3890.6301, L3100.0460, L503.6550, L803.2200, L3100.0300, L503.6030, L3890.6102, L500.2500 #### [facility] [address] [place], [address] Ferritinon 10-31-2024 Ferritin [Mass/Vol] 49 ng/mL Normal 22-378 [facility] Comment on above: Performed By: #### L 503.0106, L800.1280, L3890.6202, L500.3400, L100.0100, L300.3900, L3100.5450, L3300.0700, L3890.6301, L3100.0460, L503.6550, L803.2200, L3100.0300, L503.6030, L3890.6102, L500.2500 ####[facility] [address] [place], [address] Gastroenterology Visit Repor ton 10-31-2024 Gastroenterology Visit Report [facility] Gastroenterology [address] [address] OFFICE VISIT Date of Service: 10/31/24 MR#: [id number] Acct: [id number] Name: MELANIE CAREY Rep #: [id number] : 1965 Provider: CRISTY joshi Age/Sex: 59/F Location: [facility] Status: Signed Intake Vital Signs 09/02/24 13:33 [...] 10/31/24 5 History subcutaneous pen injector (Mounjaro) [facility] Medical History Liver disease Loss of hearing [...] Asacol Colon (more content not included)... Normal [facility] Hepatitis B Surface Antibody on 10-31-2024 HEP B Surf Ab REAC Normal [facility] Comment on above: Result Comment: <8.5 mIU/mL: Non-Reactive 8.5<= x <11.5 mIU/mL: Indeterminate >=11.5 mIU/mL: Reactive Non Reactive: Inconsistent with immunity less than <10 mIU/mL Reactive: Consistent with immunity greater than or equal to 10 mIU/mL Performed By: #### L 503.0106, L800.1280, L3890.6202, L500.3400, L100.0100, L300.3900, L3100.5450, L3300.0700, L3890.6301, L3100.0460, L503.6550, L803.2200, L3100.0300, L503.6030, L3890.6102, L500.2500 ####[facility] [address] [place], [address] Hepatitis C Antibodyon 10-31 Hepatitis C Ab Non-Reactive Normal Nonreactive [facility] Comment on above: Result Comment: Reac tive: Presumptive evidence of antibodies to HCV. Follow CDC recommendations for supplemental testing. Non-Reactive: Antibodies to HCV were not detected; does not exclude the possibility of exposure to HCV Reactive Results are presumptive evidence of antibodies to HCV. Follow CDC recommendations for supplemental testing. Order confirmation testing: HCV Quant by PCR testing - HCVPCR #[id number] Non Reactive: < 0.8 Equivocal: >/= 0.8 to < 1.0 Reactive: >/= 1.0 The CDC requires that a reactive/equivocal HCV antibody result be sent out for confirmation. HCV Quant by PCR testing. Performed By: #### L 503.0106, L800.1280, L3890.6202, L500.3400, L100.0100, L300.3900, L3100.5450, L3300.0700, L3890.6301, L3100.0460, L503.6550, L803.2200, L3100.0300, L503.6030, L3890.6102, L500.2500 ####[facility] [address] [place], [place], [id number] Iron+Iron Binding Capacityon 10-31-2024 Iron [Mass/Vol] 63 ug/dL Normal 50-170 [facility] Comment on above: Performed By: #### L 503.0106, L800.1280, L3890.6202, L500.3400, L100.0100, L300.3900, L3100.5450, L3300.0700, L3890.6301, L3100.0460, L503.6550, L803.2200, L3100.0300, L503.6030, L3890.6102, L500.2500 #### [facility] [address] [place], [place], [id number] IRON SATURATION 18.0 Normal 13-59 [facility] Comment on above: Performed By: #### L 503.0106, L800.1280, L3890.6202, L500.3400, L100.0100, L300.3900, L3100.5450, L3300.0700, L3890.6301, L3100.0460, L503.6550, L803.2200, L3100.0300, L503.6030, L3890.6102, L500.2500 #### [facility] [address] [place], [address] TIBC 359 ug/dL Normal 250-450 [facility] Comment on above: Performed By: #### L 503.0106, L800.1280, L3890.6202, L500.3400, L100.0100, L300.3900, L3100.5450, L3300.0700, L3890.6301, L3100.0460, L503.6550, L803.2200, L3100.0300, L503.6030, L3890.6102, L500.2500 #### [facility] [address] [place], [address] UIBC 296 ug/dL Normal 228-428 [facility] Comment on above: Performed By: #### L 503.0106, L800.1280, L3890.6202, L500.3400, L100.0100, L300.3900, L3100.5450, L3300.0700, L3890.6301, L3100.0460, L503.6550, L803.2200, L3100.0300, L503.6030, L3890.6102, L500.2500 #### [facility] [address] [place], [address] L3890.6102on 10-31-2024 HEP B Surf Ag Non-Reactive Normal Nonreactive [facility] Comment on above: Result Comment: Reac tive: Presumptive evidence of HBV. Repeatedly reactive samples must be confirmed using a neutralization test ([employer] HBsAg Confirmatory Test) Non-Reactive: HBsAg not detected; does not exclude the possibility of exposure to HBV Performed By: #### L 503.0106, L800.1280, L3890.6202, L500.3400, L100.0100, L300.3900, L3100.5450, L3300.0700, L3890.6301, L3100.0460, L503.6550, L803.2200, L3100.0300, L503.6030, L3890.6102, L500.2500 ####[facility] [address] [place], [address] Liver Profileon 10-31-2024 Albumin [Mass/Vol] 4.1 g/dL Normal 3.5-5.0 [facility] Comment on above: Performed By: #### L 503.0106, L800.1280, L3890.6202, L500.3400, L100.0100, L300.3900, L3100.5450, L3300.0700, L3890.6301, L3100.0460, L503.6550, L803.2200, L3100.0300, L503.6030, L3890.6102, L500.2500 #### [facility] [address] [place], [address] ALK PHOS 129 U/L High 35-104 [facility] Comment on above: Performed By: #### L 503.0106, L800.1280, L3890.6202, L500.3400, L100.0100, L300.3900, L3100.5450, L3300.0700, L3890.6301, L3100.0460, L503.6550, L803.2200, L3100.0300, L503.6030, L3890.6102, L500.2500 #### [facility] [address] [place], [address] ALT [Catalytic activity/Vol] 21 U/L Normal <=34 [facility] Comment on above: Performed By: #### L 503.0106, L800.1280, L3890.6202, L500.3400, L100.0100, L300.3900, L3100.5450, L3300.0700, L3890.6301, L3100.0460, L503.6550, L803.2200, L3100.0300, L503.6030, L3890.6102, L500.2500 #### [facility] [address] [place], [place], [id number] AST [Catalytic activity/Vol] 25 U/L Normal <=31 [facility] Comment on above: Performed By: #### L 503.0106, L800.1280, L3890.6202, L500.3400, L100.0100, L300.3900, L3100.5450, L3300.0700, L3890.6301, L3100.0460, L503.6550, L803.2200, L3100.0300, L503.6030, L3890.6102, L500.2500 #### [facility] [address] [place], [place], [id number] ([address]) Bilirubin [Mass/Vol] 1.02 mg/dL Normal 0.00-1.30 [facility] Comment on above: Performed By: #### L 503.0106, L800.1280, L3890.6202, L500.3400, L100.0100, L300.3900, L3100.5450, L3300.0700, L3890.6301, L3100.0460, L503.6550, L803.2200, L3100.0300, L503.6030, L3890.6102, L500.2500 #### [facility] [address] [place], [place], [id number] Bilirubin.direct [Mass/Vol] 0.44 mg/dL High 0.00-0.30 [facility] Comment on above: Performed By: #### L 503.0106, L800.1280, L3890.6202, L500.3400, L100.0100, L300.3900, L3100.5450, L3300.0700, L3890.6301, L3100.0460, L503.6550, L803.2200, L3100.0300, L503.6030, L3890.6102, L500.2500 #### [facility] [address] [place], [place], [id number] Globulin (S) [Mass/Vol] 3.3 g/dL Normal 2.2-4.2 [facility] Comment on above: Performed By: #### L 503.0106, L800.1280, L3890.6202, L500.3400, L100.0100, L300.3900, L3100.5450, L3300.0700, L3890.6301, L3100.0460, L503.6550, L803.2200, L3100.0300, L503.6030, L3890.6102, L500.2500 #### [facility] [address] [place], [place], [id number] T PROT 7.4 g/dL Normal 5.9-8.4 [facility] Comment on above: Performed By: #### L 503.0106, L800.1280, L3890.6202, L500.3400, L100.0100, L300.3900, L3100.5450, L3300.0700, L3890.6301, L3100.0460, L503.6550, L803.2200, L3100.0300, L503.6030, L3890.6102, L500.2500 #### [facility] [address] [place], [place], [id number] Prothrombin Time w/INRon INR Coag (PPP) [Relative time] 1.1 {INR} Normal [facility] Comment on above: Performed By: #### L 503.0106, L800.1280, L3890.6202, L500.3400, L100.0100, L300.3900, L3100.5450, L3300.0700, L3890.6301, L3100.0460, L503.6550, L803.2200, L3100.0300, L503.6030, L3890.6102, L500.2500 #### [facility] [address] [place], [place], [id number] PT Coag (PPP) [Time] 14.1 s Normal 11.7-14.9 [facility] Comment on above: Performed By: #### L 503.0106, L800.1280, L3890.6202, L500.3400, L100.0100, L300.3900, L3100.5450, L3300.0700, L3890.6301, L3100.0460, L503.6550, L803.2200, L3100.0300, L503.6030, L3890.6102, L500.2500 #### [facility] [address] [place], [place], [id number] Vitamin B12on 10-31-2024 Cobalamin (Vitamin B12) [Mass/Vol] 327 pg/mL Normal 180-914 [facility] Comment on above: Performed By: #### L 503.0106, L800.1280, L3890.6202, L500.3400, L100.0100, L300.3900, L3100.5450, L3300.0700, L3890.6301, L3100.0460, L503.6550, L803.2200, L3100.0300, L503.6030, L3890.6102, L500.2500 #### [facility] [address] [place], [place], [address] 36on 10-24-2024 36 Spoke with pilar Conklin verbal updated instructions. Normal [facility] 36 Diflucan 150 mg lara y by mouth x 7 days. Normal [facility] 36 Name of caller: Rubin Contact phone number: [phone] Relationship to Patient: [facility] [address] Provider: Cierra Practice: Jaky DUARTE Chief Complaint/Reason for Call: Rubin with [facility] calling for clarification medicine fluconazole (Diflucan) 150 MG tablet. The directions have two sets of directions. Asking for a verbal or new script of correct directions. Please advise Best time of day caller can be reached: AM Patient advised that office/PCP has 24-48 business hours to return their call: N/A 37on 10-24-2024 37 Send daily fasting a nd 2 hour after meal blood sugar readings every 3 days to me through [employer]. Office Visiton 10-24-2024 Follow-up visit [id number] Ramesh Carey 1965 F Date Provider Department Center 10/24/2024 [id number] ALEXANDER [facility] Family History Problem Relation Age of Onset Diabetes Mother Heart disease Father Cancer Father Comments: prostate High Blood Pressure Father Other Sister Comments: TBI Depression Mother Substance Abuse Brother Heart disease Mother Other Mother Depression Brother Family Status - Relation Status Age at Mother Father Sister Alive Brother Alive Level of Service:24569 [place] OFFICE/OUTPATIENT ESTABLISHED MOD MDM 30 MIN Reason for Visit and Comments: Diabetes Mellitus [183] Progress Noteon 10-24-2024 Progress Note Continue with pain management as directed. Progress Note Continue b12 injections Progress Note Follow-up with hemat ology as directed. Progress Note Stable. Get diabetes under control. Blood pressures are good Progress Note Stable. Follow up gastroenterology as scheduled Progress Note Poorly controlled. Improved glucose readings [...] order to get better control of diabetes. Progress Note Stable. Continue Wellbutrin 300 mg daily, BuSpar 10 mg twice daily. Recommend establishing with counselor Progress Note Controlled. Blood pr essure 124/72. Continue labetalol 100 mg twice daily. Has not tolerated CLAUDY inhibitors in the past, consider ARB Progress Note Controlled. Continue rosuvastatin 5 mg daily Normal [facility] Progress Note Continue portion con trol, low carb,low fat, low cholesterol diet. Increase physical activity as tolerated. Normal [facility] Progress Note 10/24/2024 Melanie Carey (: 1965) [...] 2 diabetes mellitus with hyperglycemia, unspecified whether [employer] insulin use (HCC) - insulin glargine (Lantus [...] (BMI) of 40.0 to 44.9 in adult ([facility]) Assessment & Plan: Continue portion control, low carb,low fat, low cholesterol diet. Increase physical activity as tolerated. [facility]. SUBJECTIVE/OBJECTIVE: [facility] - Melanie Carey (: 1965) is a [...] was supposed to start physical therapy at [facility] in [place] but was not able to get it [...] mg) by mouth daily (with breakfast). HYDROcodone-acetaminophen (Yancey) 5-325 MG tablet TAKE 1 TABLET BY MOUTH EVERY 6 HOURS NEEDED FOR PAIN FOR 3 DAYS labetalol (Normodyne) 100 MG tablet TAKE 1 TABLET BY MOUTH IN THE MORNING AND 1 TABLET IN THE EVENING. 60 tablet 0 metFORMIN (Glucophage) 1000 MG tablet Take 1 tablet (1,000 mg) by mouth 2 times daily (with meals). 180 tablet 1 nystatin (Mycostatin) 690136 UNIT/GM powder Apply topically 2 times daily. 30 g 0 rosuvastatin (Crestor) 5 MG tablet Take 1 tablet (5 mg) by mouth daily. 90 tablet 1 Tirzepatide (Mounjaro) 5 MG/0.5ML solution auto-injector Inject 5 mg (more content not included)... Normal [facility] Progress Note Patient was identifi ed by name and Date of . Health Maintenance Due Topic Mammogram-pended [id number] 10-09-2024 [id number] Fax[facility] DEVONTE to Dr[facility] Monson[facility] 36on 10-09-2024 36 Noted. Thank you 36 DEVONTE's printed and fi lled out ok to send? Basic metabolic 1998 panelon 09-27-2024 Anion gap [Moles/Vol] 9 mmol/L 3 - 13 mmol/L [facility] Calcium [Mass/Vol] 8.6 mg/dL 8.4 - 10. 2 mg/dL [facility] Chloride [Moles/Vol] 105 mmol/L 98 - 10 7 mmol/L [facility] CO2 [Moles/Vol] 18 mmol/L Low 22 - 29 mmol/L [facility] Creatinine [Mass/Vol] 1.17 mg/dL High 0.57 - 1.11 mg/dL [facility] GFR/1.73 sq M.predicted (S/P/Bld) [Vol rate/Area] 54.5 mL/min Low - PINF [facility] Comment on above: Calculation based on the Chronic Kidney Disease Epidemiology Collaboration (CKD-EPI) equation refit without adjustment for race Glucose [Mass/Vol] 419 mg/dL High 74 - 100 mg/dL [facility] Interpretation and review of laboratory results Abnormal [facility] Potassium [Moles/Vol] 4.5 mmol/L 3.5 - 5.1 mmol/L [facility] Comment on above: Plasma potassium chelsy ues may be up to 0.5 mmol/L lower than serum values. Sodium [Moles/Vol] 132 mmol/L Low 136 - 145 mmol/L [facility] Urea nitrogen [Mass/Vol] 29 mg/dL High 9 - 23 mg/dL [facility] CBC W Auto Differential pane l (Bld)Ordered By: Laura Abad on 09-27-2024 Erythrocyte distribution width (RBC) [Ratio] 15 % 11.5 - 15.0 % [facility] Hematocrit (Bld) [Volume fraction] 37 % 35.0 - 47.0 % [facility] Hemoglobin (Bld) [Mass/Vol] 12.3 g/dL 11.7 - 16.0 g/dL [facility] Interpretation and review of laboratory results Abnormal [facility] IPF 4 [facility] MCH (RBC) [Entitic mass] 27.3 pg 26.0 - 34.0 pg [facility] MCHC (RBC) [Mass/Vol] 33.2 % 30.5 - 36.0 % [facility] MCV (RBC) [Entitic vol] 82 fL 77.0 - 99.0 fL [facility] Platelet mean volume (Bld) [Entitic vol] 11.3 fL 9.0 - 12.7 fL [facility] Platelets (Bld) [#/Vol] 50 10*3/uL Low 140 - 440 10*3/uL [facility] RBC (Bld) [#/Vol] 4.51 10*6/uL 3.80 - 5.2 0 10*6/uL [facility] WBC (Bld) [#/Vol] 5.4 10*3/uL 3.6 - 10.7 10*3/uL [facility] Comprehensive metabolic 1998 panelOrdered By: Cherelle Santos on 09-27-2024 Albumin [Mass/Vol] 3.5 g/dL 3.5 - 5.0 g/dL [facility] ALP [Catalytic activity/Vol] 145 U/L 40 - 150 U/L [facility] ALT [Catalytic activity/Vol] 32 U/L High NINF - 30 U/L [facility] Anion gap [Moles/Vol] 12 mmol/L 3 - 13 mmol/L [facility] AST [Catalytic activity/Vol] 32 U/L NINF - 34 U/L [facility] Bilirubin [Mass/Vol] 1.3 mg/dL High NINF - 1.2 mg/dL [facility] Calcium [Mass/Vol] 9.2 mg/dL 8.4 - 10. 2 mg/dL [facility] Chloride [Moles/Vol] 102 mmol/L 98 - 10 7 mmol/L [facility] CO2 [Moles/Vol] 18 mmol/L Low 22 - 29 mmol/L [facility] Creatinine [Mass/Vol] 1.49 mg/dL High 0.57 - 1.11 mg/dL [facility] GFR/1.73 sq M.predicted (S/P/Bld) [Vol rate/Area] 40.8 mL/min Low - PINF [facility] Comment on above: Calculation based on the Chronic Kidney Disease Epidemiology Collaboration (CKD-EPI) equation refit without adjustment for race Glucose [Mass/Vol] 528 mg/dL Critically high 74 - 1 00 mg/dL [facility] Interpretation and review of laboratory results Abnormal [facility] Potassium [Moles/Vol] 4.9 mmol/L 3.5 - 5.1 mmol/L [facility] Comment on above: Plasma potassium chelsy ues may be up to 0.5 mmol/L lower than serum values. Protein [Mass/Vol] 7.6 g/dL 6.4 - 8.3 g/dL [facility] Sodium [Moles/Vol] 132 mmol/L Low 136 - 145 mmol/L [facility] Urea nitrogen [Mass/Vol] 30 mg/dL High 9 - 23 mg/dL [facility] Laboratory - Chemistry and C hemistry - challengeon 09-27-2024 Glucose [Mass/Vol] 303 mg/dL High 70 - 100 mg/dL [facility] Beta hydroxybutyrate [Mass/Vol] 2.3 mg/dL NINF - 2.8 mg/dL [facility] Magnesium [Mass/Vol] 1.6 mg/dL 1.6 - 2 .6 mg/dL [facility] Glucose [Mass/Vol] mg/dL High 70 - 100 mg/dL [facility] Comment on above: Confirmation Drawn; Caregiver Notified; Laboratory - Chemistry and C hemistry - challengeOrdered By: Suly Hamilton on 09-27-2024 Base excess Calc (BldV) [Moles/Vol] -4.7000 mmol/L Low -3.0 - 3.0 mmol/L [facility] CO2 (BldV) [Partial pressure] 31.2 mm[Hg] Low [facility] CO2 [Moles/Vol] 19.9 mmol/L Low 23.0 - 30.0 mmol/L [facility] HCO3 (Bld) [Moles/Vol] 19 mmol/L Low 21.0 - 30.0 mmol/L [facility] Oxygen (BldV) [Partial pressure] 72.5 mm[Hg] mm Hg [facility] pH (BldV) 7.402 [pH] 7.320 - 7.420 [facility] Laboratory - Hematology and Cell countson 09-27-2024 Lymphocytes (Bld) [#/Vol] 0.1 10*3/uL Low 1.0 - 4.3 10*3/uL [facility] Lymphocytes/100 WBC (Bld) 2 % Low 15 - 45 % [facility] Monocytes (Bld) [#/Vol] 0.2 10*3/uL 0.0 - 0.9 10*3/uL [facility] Monocytes/100 WBC (Bld) 4 % Low 5 - 13 % [facility] Myelocytes (Bld) [#/Vol] 0.2 10*3/uL High NINF - 0.0 10*3/uL [facility] Myelocytes/100 WBC (Bld) 3 % High NINF - 0 % [facility] Neutrophils (Bld) [#/Vol] 4.7 10*3/uL 1.8 - 7.5 10*3/uL [facility] RBC morphology finding Nom (Bld) Normal [facility] Segmented neutrophils/100 WBC (Bld) 87 % High 38 - 82 % [facility] Variant lymphocytes (Bld) [#/Vol] 0.2 10*3/uL High NINF - 0.0 10*3/uL [facility] Variant lymphocytes/100 WBC (Bld) 4 % High NINF - 0 % [facility] Laboratory - Hematology and Cell countsOrdered By: Suly Hamilton on 09-27-2024 Hemoglobin (Bld) [Mass/Vol] 13.1 g/dL Screen only [facility] [employer] Magnesium [Mass/Vol]on 09-27 Higher values can be expected in females during menses. [facility] [employer] No Panel Informationon 09-27 P [place] 60 degrees [facility] MN Interval 208 ms [facility] [employer] QRS [place] -75 degrees [facility] [employer] QRSD Interval 106 ms [facility] [employer] QT Interval 355 ms [facility] QTC Interval 448 ms [facility] T Wave [place] 64 degrees [facility] Sinus rhythm Prolonged [place] interval Left anterior fascicular block Consider right ventricular hypertrophy Probable left ventricular hypertrophy EKG per my interpretation shows a normal sinus rhythm at a rate of 96 with a left axis deviation. There is a left anterior fascicular block. There may be LVH and RVH. There is no acute ST elevation or ST depression. Intervals are within normal limits although [place] may be slightly prolonged. There were no significant changes compared to prior EKG on file. Electronically Signed On 09-27-2024 20:11:11 EDT by Jimenez De La Fuente MD - 09/27/2024 IMPRESSION: Sinus rhythm Prolonged [place] interval Left anterior fascicular block Consider right ventricular hypertrophy Probable left ventricular hypertrophy EKG per my interpretation shows a normal sinus rhythm at a rate of 96 with a left axis deviation. There is a left anterior fascicular block. There may be LVH and RVH. There is no acute ST elevation or ST depression. Intervals are within normal limits although MN may be slightly prolonged. There were no significant changes compared to prior EKG on file. Electronically Signed On 09-27-2024 20:11:11 EDT by Jimenez Maddox [facility] Interpretation and review of laboratory results Abnormal [facility] [employer] Performed by: [facility], [address] [place] [id number] CLIA ID: [id number] [facility] Atypical Lymphocytes Manual 4 [facility] Bands Manual [facility] Basophils Manual [facility] Blasts Manual [facility] Eosinophils Manual [facility] Interpretation and review of laboratory results Abnormal [facility] [employer] Lymphocytes Manual 2 [facility] [employer] Metamyelocytes Manual [facility] Monocytes Manual 4 [facility] Myelocytes Manual 3 [facility] Neutrophils Manual 89 [facility] Promyelocytes Manual [facility] Unclassified Cells, Manual [facility] Interpretation and review of laboratory results Normal [facility] Interpretation and review of laboratory results Abnormal [facility] Performed by: [facility], [address] [place] [id number] CLIA ID: [id number] [facility] No Panel InformationOrdered By: Suly Hamilton on 09-27-2024 Amount Of Oxygen [facility] Interpretation and review of laboratory results Abnormal [facility] Source Of Oxygen No data [facility] Assessment of oxygen ation is best done with an arterial blood gas determination. Reference ranges for pO2, bicarbonate, and base excess are for mixed venous blood. Specimens drawn from a peripheral vein will often have higher values. [facility] Phosphate [Moles/Vol]on 09-09 Interpretation and review of laboratory results Abnormal [facility] Phosphate [Mass/Vol] 2.1 mg/dL Low 2.3 - 4 .7 mg/dL [facility] Vital signson 09-27-2024 Heart rate 96 /min bpm [facility] Vital signsOrdered By: Suly Hamilton on 09-27-2024 Oxygen saturation in Venous blood 93.8 % [facility] Emergency Department Summary on 09-02-2024 Emergency Department Summary [facility] Medical Records Department [address] [place] [address] Emergency Department Summary 09/02/24 MR#: [id number] Acct: [id number] Name: MELANIE CAREY Rep #: [id number] : 1965 59 From: Lino Elias MD [...] anesthesia, no loss of bowel or bladder. [facility] Medical History Liver disease Loss of hearing [...] mg PO BID 30 days #60 tabs 07/11/0110/01/23 Rx hydroxyzine HCl 25 mg tablet 25 [...] H/O colonoscop (more content not included)... Normal [facility] HIP, UNI W/ Pelvis 2-3 Views on 09-02-2024 HIP, UNI W/ Pelvis 2-3 Views [facility] Imaging Services [address] [place], [place] [id number] HIP, UNI W/ Pelvis 2-3 Views MR#: [id number] Acct: [id number] Name: MELANIE RESTREPO Rep #: [id number] : 1965 F 59 From: Rik Paiz MD PCP: Dr. See Ricketts MD Status: PRE ER Study: HIP, UNI W/ Pelvis 2-3 Views Date of Exam: Exam# [id number] Ordering Dr: Lino Elias MD PROCEDURE: HIP, [...] Lino Elias MD; Dr. See Ricketts MD Lock Expert: Signed Normal [facility] Lumbar Spine 2 or 3 Viewson 09-02-2024 Lumbar Spine 2 or 3 Views [facility] Imaging Services [address] [place], [place] [address] Lumbar Spine 2 or 3 Views MR#: [id number] Acct: [id number] Name: MELANIE RESTREPO Rep #: [id number] : 1965 F 59 From: Rik Paiz MD PCP: Dr. See Ricketts MD Status: PRE ER Study: Lumbar Spine 2 or 3 Views Date of Exam: Exam# [id number] Ordering Dr: Lino Elias MD PROCEDURE: LUMBAR [...] Lino Elias MD; Dr. See Ricketts MD Lock Expert: Signed Normal [facility] L5000.0010on 04-29-2024 BNP Normal [facility] Comment on above: Result Comment: TEST RESULTS LIMITS B-Type Natriuretic Peptide 29.2 pg/mL 0.0-100.0 Siemens ADVIA Centaur XP methodology TESTING PERFORMED AT [facility]. ORIGINAL REPORT ON FILE IN LAB CONTAINS ADDITIONAL TEST SITE INFORMATION. Performed By: #### L 500.2500, L501.5425, L100.0100, L5000.0010 ####[facility] [address] [place], [address] CBC W/Diff, Automatedon 04-11 PATH REV Reviewed Normal [facility] Comment on above: Result Comment: Panc ytopenia. Leukopenia and neutropenia.Normocytic anemia. MODERATE Thrombocytopenia. Clinical correlation necessary. Travis Jerry M.D. 04/24/24 AMENDED REPORT 04/24/24 1340 PATH REV previously reported as: November Performed By: #### L 500.2500, L501.5425, L100.0100, L5000.0010 ####[facility] [address] [place], [address] 12 Lead EKGon 04-23-2024 12 Lead EKG [facility] Cardiovascular Services [address] [place] [address] 12 Lead EKG 04/23/24 1133 MR#: [id number] Acct: [id number] Name: MELANIE RESTREPO Rep #: [id number] : 1965 58 From: Jarad Cheney MD [...] block Abnormal ECG Confirmed by Jarad Cheney ([id number]), desk editor ZELDA KENNEDY ([id number]) on 04/25/2024 1:32:02 PM Referred By: Confirmed By:Jarad Cheney 04/25/24 1332 Date Jarad Cheney MD CC: Dr. Rc Freeman DO; Dr. See Ricketts MD Signed Normal [facility] Basic Metabolic Profile (BMP )on 04-23-2024 BUN/CRE 9.4 RATIO Low 10-20 [facility] Comment on above: Order Comment: 1Y Performed By: #### L 500.2500, L501.5425, L100.0100, L5000.0010 ####[facility] [address] [place], [address] CA,Total 9.4 mg/dL Normal 8.5-10.1 [facility] Comment on above: Order Comment: 1Y Performed By: #### L 500.2500, L501.5425, L100.0100, L5000.0010 ####[facility] [address] [place], [address] Chloride [Moles/Vol] 100 mmol/L Normal 98-107 [facility] Comment on above: Order Comment: 1Y Performed By: #### L 500.2500, L501.5425, L100.0100, L5000.0010 ####[facility] [address] [place], [address] CO2 [Moles/Vol] 28.0 mmol/L Normal 21.0-32.0 [facility] Comment on above: Order Comment: 1Y Performed By: #### L 500.2500, L501.5425, L100.0100, L5000.0010 ####[facility] [address] [place], [address] Creatinine [Mass/Vol] 1.06 mg/dL High 0.55-1.02 [facility] Comment on above: Order Comment: 1Y Result Comment: The validity of the calculated GFR GFRAA in patients over 70 years has not been determined. Clinical correlation is essential. Performed By: #### L 500.2500, L501.5425, L100.0100, L5000.0010 ####[facility] [address] [place], [address] ECRCL 77.03 ml/min Normal [facility] Comment on above: Order Comment: 1Y Performed By: #### L 500.2500, L501.5425, L100.0100, L5000.0010 ####[facility] [address] [place], [address] EST GFR - AA 69 mL/min Normal >60 [facility] Comment on above: Order Comment: 1Y Result Comment: Afri can Nigerian GFR Calc Performed By: #### L 500.2500, L501.5425, L100.0100, L5000.0010 ####[facility] [address] [place], [address] GAP 6 Normal 5-15 [facility] Comment on above: Order Comment: 1Y Performed By: #### L 500.2500, L501.5425, L100.0100, L5000.0010 ####[facility] [address] [place], [address] GFR/1.73 sq M.predicted among non-blacks MDRD (S/P/Bld) [Vol rate/Area] 57 mL/min/{1.73_m2} Low >60 [facility] Comment on above: Order Comment: 1Y Result Comment: Non- GFR Calc Performed By: #### L 500.2500, L501.5425, L100.0100, L5000.0010 ####[facility] [address] [place], [address] Glucose [Mass/Vol] 416 mg/dL High 74-106 [facility] Comment on above: Order Comment: 1Y Result Comment: Gluc ose result greater than or equal to 200 mg/dL suggests DIABETES MELLITUS per A.D.A. criteria. Performed By: #### L 500.2500, L501.5425, L100.0100, L5000.0010 ####[facility] [address] [place], [address] Potassium [Moles/Vol] 4.0 mmol/L Normal 3.5-5.1 [facility] Comment on above: Order Comment: 1Y Performed By: #### L 500.2500, L501.5425, L100.0100, L5000.0010 ####[facility] [address] [place], [address] Sodium [Moles/Vol] 134 mmol/L Low 136-145 [facility] Comment on above: Order Comment: 1Y Performed By: #### L 500.2500, L501.5425, L100.0100, L5000.0010 ####[facility] [address] [place], [address] Urea nitrogen [Mass/Vol] 10 mg/dL Normal 7-18 [facility] Comment on above: Order Comment: 1Y Performed By: #### L 500.2500, L501.5425, L100.0100, L5000.0010 ####[facility] [address] [place], [address] Chest PA and Lateralon 04-23 Chest PA and Lateral [facility] Imaging Services [address] [place] [address] Chest PA and Lateral MR#: [id number] Acct: [id number] Name: MELANIE RESTREPO Rep #: [id number] : 1965 F 58 From: Avtar Lezama MD PCP: Dr. See Ricketts MD Status: REG ER Study: Chest PA and Lateral Date of Exam: 04/23/24 Exam# [id number] Ordering Dr: Rc Freeman DO [id number] STUDY: X-RAY CHEST REASON FOR EXAM: Female, [...] Rc Freeman DO; Dr. See Ricketts MD Lock Expert: Signed Normal [facility] Emergency Department Summary on 04-23-2024 Emergency Department Summary [facility] Medical Records Department [address] [place] [address] Emergency Department Summary 04/23/24 MR#: [id number] Acct: [id number] Name: MELANIE RESTREPO Rep #: [id number] : 1965 58 From: Rc Freeman DO [...] maintenance inhaler. She has never seen a surgical scrub technologist. She is a previous tobacco abuser. Denies [...] intact Psych: Cooperative, appropriate mood and affect [facility] Medical History Liver disease Loss of hearing [...] #10 tabs (more content not included)... Normal [facility] L501.4020on 04-23-2024 TROPONIN-I HS 13 pg/mL Normal 3.0-54.0 [facility] Comment on above: Result Comment: Plea se Note: New Test Units and Gender Specific Reference Ranges. For more information see Policy Stat Procedure Malcolm High Sensitivity Troponin (TNIH) and attachments. Performed By: #### M 100.678 #### [facility] Laboratory [address] [place], [address] L501.5425on 04-23-2024 TROPONIN-I HS 15 pg/mL Normal 3.0-54.0 [facility] Comment on above: Order Comment: 1Y Result Comment: Plea se Note: New Test Units and Gender Specific Reference Ranges. For more information see Policy Stat Procedure Malcolm High Sensitivity Troponin (TNIH) and attachments. Performed By: #### L 500.2500, L501.5425, L100.0100, L5000.0010 ####[facility] [address] [place], [address] M100.678on 04-23-2024 M100.678 Pending SARS-CoV-2 (COVID 19) Negative INFLUENZA A Negative INFLUENZA B Negative RSV PCR Negative Normal [facility] Comment on above: Performed By: #### M 100.678 #### [facility] Laboratory [address] [place], [address] CBC W/Diff, Automatedon 03-12 PATH REV Reviewed Normal [facility] Comment on above: Result Comment: Panc ytopenia. Leukopenia and neutropenia. Normocytic anemia. MODERATE Thrombocytopenia. Clinical correlation necessary. Travis Jerry M.D. 03/24/24 AMENDED REPORT 03/24/24 0857 PATH REV previously reported as: November Performed By: #### L 100.0100, L500.2500 ####[facility] [address] [place], [address] Basic Metabolic Profile (BMP )on 03-22-2024 BUN/CRE 9.3 RATIO Low 10-20 [facility] Comment on above: Performed By: #### L 100.0100, L500.2500 ####[facility] [address] [place], [address] CA,Total 9.9 mg/dL Normal 8.5-10.1 [facility] Comment on above: Performed By: #### L 100.0100, L500.2500 ####[facility] [address] [place], [address] Chloride [Moles/Vol] 104 mmol/L Normal 98-107 [facility] Comment on above: Performed By: #### L 100.0100, L500.2500 ####[facility] [address] [place], [address] CO2 [Moles/Vol] 28.0 mmol/L Normal 21.0-32.0 [facility] Comment on above: Performed By: #### L 100.0100, L500.2500 ####[facility] [address] [place], [address] Creatinine [Mass/Vol] 1.07 mg/dL High 0.55-1.02 [facility] Comment on above: Result Comment: The validity of the calculated GFR GFRAA in patients over 70 years has not been determined. Clinical correlation is essential. Performed By: #### L 100.0100, L500.2500 ####[facility] [address] [place], [address] EST GFR - AA 68 mL/min Normal >60 [facility] Comment on above: Result Comment: Afri can Nigerian GFR Calc Performed By: #### L 100.0100, L500.2500 ####[facility] [address] [place], [address] GAP 7 Normal 5-15 [facility] Comment on above: Performed By: #### L 100.0100, L500.2500 ####[facility] [address] [place], [address] GFR/1.73 sq M.predicted among non-blacks MDRD (S/P/Bld) [Vol rate/Area] 56 mL/min/{1.73_m2} Low >60 [facility] Comment on above: Result Comment: Non- GFR Calc Performed By: #### L 100.0100, L500.2500 ####[facility] [address] [place], [address] Glucose [Mass/Vol] 190 mg/dL High 74-106 [facility] Comment on above: Result Comment: Fast ing Glucose result greater than or equal to 126 mg/dL suggests DIABETES MELLITUS per A.D.A. criteria. Performed By: #### L 100.0100, L500.2500 ####[facility] [address] [place], [address] Potassium [Moles/Vol] 4.2 mmol/L Normal 3.5-5.1 [facility] Comment on above: Performed By: #### L 100.0100, L500.2500 ####[facility] [address] [place], [address] Sodium [Moles/Vol] 139 mmol/L Normal 136-145 [facility] Comment on above: Performed By: #### L 100.0100, L500.2500 ####[facility] [address] [place], [address] Urea nitrogen [Mass/Vol] 10 mg/dL Normal 7-18 [facility] Comment on above: Performed By: #### L 100.0100, L500.2500 ####[facility] [address] [place], [address] Chest PA and Lateralon 03-22 Chest PA and Lateral [facility] Imaging Services [address] [place] [address] Chest PA and Lateral MR#: [id number] Acct: [id number] Name: MELANIE RESTREPO Rep #: [id number] : 1965 F 58 From: Giovanni wang MD PCP: Dr. See Ricketts MD Status: [facility] ER Study: Chest PA and Lateral Date of Exam: 03/22/24 Exam# [id number] Ordering Dr: Alfonso Covarrubias MD [id number] STUDY: X-RAY CHEST REASON FOR EXAM: Female, [...] 10:16 EDT Reading Location ID and State: [facility] / [place] , Service support , CC: Dr. See Ricketts MD; Dr. Alfonso Covarrubias MD Lock Expert: Signed Normal [facility] Emergency Department Summary on 03-22-2024 Emergency Department Summary [facility] Medical Records Department [address] [place] [address] Emergency Department Summary 03/22/24 MR#: [id number] Acct: [id number] Name: MELANIE RESTREPO Rep #: [id number] : 1965 58 From: Alfonso Covarrubias MD [...] (Diagnosed with COVID.) Recent Illness/Hospitalization: No PFSH PFSH Medical History Liver disease Loss of hearing [...] @ 0 (more content not included)... Normal [facility] M100.678on 03-22-2024 M100.678 Pending SARS-CoV-2 (COVID 19) Negative INFLUENZA A Negative INFLUENZA B Negative RSV PCR Negative [facility] Comment on above: Performed By: #### M 100.678 #### [facility] Laboratory [address] [place], [place], [id number] CBC W Auto Differential pane l (Bld)Ordered By: Gina Márquez on 02-19-2024 Erythrocyte distribution width (RBC) [Ratio] 15.3 % High 11.5 - 15.0 % [facility] Hematocrit (Bld) [Volume fraction] 35.4 % 35.0 - 47.0 % [facility] Hemoglobin (Bld) [Mass/Vol] 11.5 g/dL Low 11.7 - 16.0 g/dL [facility] Interpretation and review of laboratory results Abnormal [facility] IPF 3 [facility] MCH (RBC) [Entitic mass] 27.1 pg 26.0 - 34.0 pg [facility] MCHC (RBC) [Mass/Vol] 32.5 % 30.5 - 36.0 % [facility] MCV (RBC) [Entitic vol] 83.3 fL 77.0 - 99.0 fL [facility] Platelet mean volume (Bld) [Entitic vol] 10.6 fL 9.0 - 12.7 fL [facility] Platelets (Bld) [#/Vol] 57 10*3/uL Low 140 - 440 10*3/uL [facility] RBC (Bld) [#/Vol] 4.25 10*6/uL 3.80 - 5.2 0 10*6/uL [facility] WBC (Bld) [#/Vol] 2.4 10*3/uL Low 3.6 - 10.7 10*3/uL [facility] CT Head WO contraston 2023 No evidence of an acute intracranial process. Report Dictated on Electronically Signed By: Leonardo Watts MD Electronically Signed Date/Time: 02/19/2024 12:54 PM EDT SeeMe Patient Name: MELANIE REA : 1965 Exam [...] calcification of the carotid siphons is noted. [employer] Leonardo Watts MD - 02/19/2024 Patient Name: MELANIE TOVAR : 1965 [facility]#: [id number] Exam Date/Time: 02/19/2024 12:45 Procedure: CT HEAD [...] Electronically Signed Date/Time: 02/19/2024 12:54 PM EDT [facility] Radiology Study observation (narrative) [facility] CT Head WO contrastOrdered B y: Leonardo Watts on 02-19-2024 [facility] [employer] Work Phone: Comprehensive metabolic 1998 panelon 02-19-2024 Albumin [Mass/Vol] 3.6 g/dL 3.5 - 5.0 g/dL [facility] ALP [Catalytic activity/Vol] 102 U/L 38 - 126 U/L [facility] ALT [Catalytic activity/Vol] 30 U/L 0 - 34 U/L [facility] Anion gap [Moles/Vol] 8 mmol/L 3 - 13 mmol/L [facility] AST [Catalytic activity/Vol] 35 U/L 15 - 46 U/L [facility] Bilirubin [Mass/Vol] 1.4 mg/dL High 0.2 - 1 .3 mg/dL [facility] Calcium [Mass/Vol] 9.2 mg/dL 8.4 - 10. 4 mg/dL [facility] Chloride [Moles/Vol] 104 mmol/L 98 - 10 7 mmol/L [facility] CO2 [Moles/Vol] 26 mmol/L 22 - 30 mmol/L [facility] Creatinine [Mass/Vol] 0.85 mg/dL 0.52 - 1.04 mg/dL [facility] GFR/1.73 sq M.predicted (S/P/Bld) [Vol rate/Area] 80.5 mL/min - PINF [facility] Comment on above: Calculation based on the Chronic Kidney Disease Epidemiology Collaboration (CKD-EPI) equation refit without adjustment for race Glucose [Mass/Vol] 152 mg/dL High 70 - 100 mg/dL [facility] Interpretation and review of laboratory results Abnormal [facility] Potassium [Moles/Vol] 4.1 mmol/L 3.5 - 5.1 mmol/L [facility] Protein [Mass/Vol] 7.2 g/dL 6.3 - 8.2 g/dL [facility] Sodium [Moles/Vol] 138 mmol/L 135 - 145 mmol/L [facility] Urea nitrogen [Mass/Vol] 10 mg/dL 7 - 17 mg/dL [facility] Laboratory - Microbiology an d Antimicrobial susceptibilityon 02-19-2024 FLUAV RNA EVERETTE+probe Ql (Resp) Not detected Not Detected [facility] FLUBV RNA EVERETTE+probe Ql (Resp) Not detected Not Detected [facility] RSV RNA EVERETTE+probe Ql (Resp) Not detected Not Detected [facility] SARS-CoV-2 (COVID-19) RNA EVERETTE+probe Ql (Resp) Not detected Not Detected [facility] SARS-CoV-2 (COVID-19) RNA EVERETTE+probe Ql (Unsp spec) Methodology: real-time, RT-PCR The SARS-CoV-2, Flu A/B, and RSV Combo assay is intended for in vitro diagnostic use under the FDA Emergency Use Authorization (EUA). This test has not been FDA cleared or approved. In compliance with this authorization, please visit www.fda.gov/media/637314/d ownload or www.fda.gov/media/144351/d ownload to access the applicable information sheets. [facility] Manual differential performe d Ql (Bld)on 02-19-2024 Anisocytosis Ql (Bld) Slight Abnormal (none) [facility] Cells Counted Total (Bld) [#] 100 {cells} [facility] Differential Method Manual differential performed [facility] Interpretation and review of laboratory results Abnormal [facility] Leukocyte morphology finding Nom (Bld) Normal [facility] Lymphocytes (Bld) [#/Vol] 0.5 10*3/uL Low 1.0 - 4.3 10*3/uL [facility] Lymphocytes Manual 19 [facility] Lymphocytes/100 WBC (Bld) 19 % 15 - 45 % [facility] Monocytes (Bld) [#/Vol] 0.2 10*3/uL 0.0 - 0.9 10*3/uL [facility] Monocytes Manual 7 [facility] Monocytes/100 WBC (Bld) 7 % 5 - 13 % [facility] Neutrophils (Bld) [#/Vol] 1.8 10*3/uL 1.8 - 7.0 10*3/uL [facility] Neutrophils Manual 74 [facility] Ovalocytes LM Ql (Bld) Slight Abnormal (none) [facility] Platelet morphology finding Nom (Bld) Normal [facility] Polychromasia LM Ql (Bld) Slight Abnormal (none) [facility] Segmented neutrophils/100 WBC (Bld) 74 % 38 - 82 % [facility] WBC corrected for nucl RBC (Bld) [#/Vol] 2.4 10*3/uL Low 3.6 - 10.7 10*3/uL [facility] SARS-CoV-2, Flu A/B, and RSV Comboon 02-19-2024 Interpretation and review of laboratory results Normal [facility] Urinalysis complete panel (U )on 02-19-2024 Bacteria LM.HPF (Urine sed) [#/Area] Few Abnormal Negative /HPF [facility] Bilirubin Ql (U) Negative Negative mg/dL [facility] Clarity (U) Turbid Abnormal Clear [facility] Color (U) Yellow Lt. Yellow [facility] Epithelial cells.squamous LM.HPF (Urine sed) [#/Area] 26-50 Abnormal [facility] Glucose Ql (U) Normal Normal (<70) mg/dL [facility] Hemoglobin Ql (U) 0.03 mg/dL Abnormal Negative [facility] Interpretation and review of laboratory results Abnormal [facility] Ketones (U) [Mass/Vol] Negative Negative mg/dL [facility] Leukocyte esterase Test strip Ql (U) 250 Abnormal Negative Kevin/uL [facility] Mucus LM.HPF (Urine sed) [#/Area] Few Negative /LPF [facility] Nitrite Ql (U) Negative Negative [facility] pH (U) 6.0 [pH] 5.0 - 8.0 pH [facility] Protein (U) [Mass/Vol] 100 mg/dL Abnormal Negative [facility] RBC LM.HPF (Urine sed) [#/Area] 3-5 Abnormal [facility] Specific gravity (U) [Rel density] 1.015 1.005 - 1.030 [facility] Urobilinogen (U) [Mass/Vol] Normal Normal (0-1) mg/dL [facility] WBC LM.HPF (Urine sed) [#/Area] 6-10 Abnormal [facility] Laboratory - Chemistry and C hemistry - challengeOrdered By: Kati Godfrey on 12-13-2023 Glucose [Mass/Vol] 150 mg/dL [facility] Laboratory - Chemistry and C hemistry - challengeon 12-13-2023 Glucose [Mass/Vol] 150 mg/dL High 70 - 100 mg/dL [facility] Glucose [Mass/Vol] 126 mg/dL High 70 - 100 mg/dL [facility] No Panel InformationOrdered By: Kati Godfrey on 12-13-2023 Interpretation and review of laboratory results Normal [facility] Radiology Study observation (narrative) [facility] No Panel Informationon 12-12 Interpretation and review of laboratory results Abnormal [facility] Performed by: [facility], [address] [facility] [address] CLIA ID: [id number] [facility] Interpretation and review of laboratory results Abnormal [facility] Performed by: [facility] [place] [facility], [address] [facility] [address] CLIA ID: [id number] [facility] Radiology Study observation (narrative) [facility] Radiology Study observation (narrative) [facility] Laboratory - Chemistry and C hemistry - challengeon 12-04-2023 Glucose [Mass/Vol] 122 mg/dL High 70 - 100 mg/dL [facility] Glucose [Mass/Vol] 133 mg/dL High 70 - 100 mg/dL [facility] No Panel Informationon 12-03 Interpretation and review of laboratory results Abnormal [facility] Performed by: [facility], [address], [facility] [address] CLIA ID: [id number] [facility] Interpretation and review of laboratory results Abnormal [facility] Performed by: [facility], [address], [facility] [address] CLIA ID: [id number] [facility] Radiology Study observation (narrative) [facility] Radiology Study observation (narrative) [facility] CBC W Auto Differential pane l (Bld)Ordered By: Jennifer Walters on 10-12-2023 Erythrocyte distribution width (RBC) [Ratio] 15.4 % High 11.5 - 15.0 % [facility] Hematocrit (Bld) [Volume fraction] 36.8 % 35.0 - 47.0 % [facility] Hemoglobin (Bld) [Mass/Vol] 11.6 g/dL Low 11.7 - 16.0 g/dL [facility] Interpretation and review of laboratory results Abnormal [facility] IPF 4 [facility] MCH (RBC) [Entitic mass] 26.4 pg 26.0 - 34.0 pg [facility] MCHC (RBC) [Mass/Vol] 31.5 % 30.5 - 36.0 % [facility] MCV (RBC) [Entitic vol] 83.8 fL 77.0 - 99.0 fL [facility] Platelet mean volume (Bld) [Entitic vol] 10.9 fL 9.0 - 12.7 fL [facility] Platelets (Bld) [#/Vol] 65 10*3/uL Low 140 - 440 10*3/uL [facility] RBC (Bld) [#/Vol] 4.39 10*6/uL 3.80 - 5.2 0 10*6/uL [facility] WBC (Bld) [#/Vol] 4.0 10*3/uL 3.6 - 10.7 10*3/uL [facility] Comprehensive metabolic 1998 panelOrdered By: Nesha Giron on 10-12-2023 Albumin [Mass/Vol] 3.6 g/dL 3.5 - 5.0 g/dL [facility] ALP [Catalytic activity/Vol] 92 U/L 38 - 126 U/L [facility] ALT [Catalytic activity/Vol] 27 U/L 0 - 34 U/L [facility] Anion gap [Moles/Vol] 8 mmol/L 3 - 13 mmol/L [facility] AST [Catalytic activity/Vol] 29 U/L 15 - 46 U/L [facility] Bilirubin [Mass/Vol] 1.1 mg/dL 0.2 - 1 .3 mg/dL [facility] Calcium [Mass/Vol] 9.2 mg/dL 8.4 - 10. 4 mg/dL [facility] Chloride [Moles/Vol] 103 mmol/L 98 - 10 7 mmol/L [facility] CO2 [Moles/Vol] 23 mmol/L 22 - 30 mmol/L [facility] Creatinine [Mass/Vol] 0.81 mg/dL 0.52 - 1.04 mg/dL [facility] GFR/1.73 sq M.predicted MDRD (S/P/Bld) [Vol rate/Area] 85.3 mL/min/{1.73_m2} - PINF [facility] Comment on above: Calculation based on the Chronic Kidney Disease Epidemiology Collaboration (CKD-EPI) equation refit without adjustment for race Glucose [Mass/Vol] 248 mg/dL High 70 - 100 mg/dL [facility] Interpretation and review of laboratory results Abnormal [facility] Potassium [Moles/Vol] 4.8 mmol/L 3.5 - 5.1 mmol/L [facility] Protein [Mass/Vol] 7.3 g/dL 6.3 - 8.2 g/dL [facility] Sodium [Moles/Vol] 133 mmol/L Low 135 - 145 mmol/L [facility] Urea nitrogen [Mass/Vol] 22 mg/dL High 7 - 17 mg/dL [facility] Laboratory - Chemistry and C hemistry - challengeon 10-12-2023 Glucose [Mass/Vol] 337 mg/dL High 70 - 100 mg/dL [facility] Glucose [Mass/Vol] 273 mg/dL High 70 - 100 mg/dL [facility] Glucose [Mass/Vol] 273 mg/dL [facility] Glucose [Mass/Vol] 245 mg/dL High 70 - 100 mg/dL [facility] Glucose [Mass/Vol] 245 mg/dL [facility] Glucose [Mass/Vol] 218 mg/dL High 70 - 100 mg/dL [facility] Glucose [Mass/Vol] 218 mg/dL [facility] Cortisol [Mass/Vol] 21.4 ug/dL [facility] Glucose [Mass/Vol] 207 mg/dL High 70 - 100 mg/dL [facility] Glucose [Mass/Vol] 207 mg/dL [facility] Glucose [Mass/Vol] 126 mg/dL High 70 - 100 mg/dL [facility] Glucose [Mass/Vol] 126 mg/dL [facility] Glucose [Mass/Vol] 90 mg/dL 70 - 100 mg/dL [facility] Glucose [Mass/Vol] 90 mg/dL [facility] Laboratory - Coagulationon 0 10-12-2023 aPTT Coag (PPP) [Time] 22.0 s 20.0 - 30.5 s [facility] INR Coag (PPP) [Relative time] 1.1 {INR} 0.9 - 1.1 [facility] Comment on above: Recommended Anticoag ulant Therapy: [...] [Time] 11.9 s 9.0 - 12.0 s [facility] Laboratory - Hematology and Cell countson 10-12-2023 Band form neutrophils (Bld) [#/Vol] 0.0 10*3/uL NINF - 0.0 10*3/uL [facility] Band form neutrophils/100 WBC (Bld) 1 % High NINF - 0 % [facility] Basophils (Bld) [#/Vol] 0.1 10*3/uL 0.0 - 0.2 10*3/uL [facility] Basophils/100 WBC (Bld) 2 % 0 - 2 % [facility] Lymphocytes (Bld) [#/Vol] 0.0 10*3/uL Low 1.0 - 4.3 10*3/uL [facility] Lymphocytes/100 WBC (Bld) 1 % Low 15 - 45 % [facility] Monocytes (Bld) [#/Vol] 0.0 10*3/uL 0.0 - 0.9 10*3/uL [facility] Monocytes/100 WBC (Bld) 1 % Low 5 - 13 % [facility] Neutrophils (Bld) [#/Vol] 3.9 10*3/uL 1.8 - 7.5 10*3/uL [facility] RBC morphology finding Nom (Bld) Normal [facility] Segmented neutrophils/100 WBC (Bld) 96 % High 38 - 82 % [facility] Laboratory - Serology - non- microon 10-12-2023 Cyclic citrullinated peptide IgG Qn U/mL 0.0 - 4.9 U/mL [facility] Comment on above: 0.0 - 4.9 NEGATIVE >= 5.0 POSITIVE No Panel Informationon 10-11 Interpretation and review of laboratory results Abnormal [facility] Performed by: [facility], [address] [place] [address] CLIA ID: [id number] [facility] Interpretation and review of laboratory results Abnormal [facility] Performed by: [facility], [address] [place] [id number] CLIA ID: [id number] [facility] Interpretation and review of laboratory results Normal [facility] Interpretation and review of laboratory results Abnormal [facility] Performed by: [facility], [address] [place] [address] CLIA ID: [id number] [facility] Interpretation and review of laboratory results Normal [facility] Interpretation and review of laboratory results Normal [facility] Interpretation and review of laboratory results Abnormal [facility] Performed by: [facility], [address] [place] [id number] CLIA ID: [id number] [facility] Interpretation and review of laboratory results Normal [facility] Atypical Lymphocytes Manual [facility] Bands Manual 1 [facility] Basophils Manual 2 [facility] Blasts Manual [facility] Eosinophils Manual [facility] Interpretation and review of laboratory results Abnormal [facility] Lymphocytes Manual 1 [facility] Metamyelocytes Manual [facility] Monocytes Manual 1 [facility] Myelocytes Manual [facility] Neutrophils Manual 96 [facility] Promyelocytes Manual [facility] Unclassified Cells, Manual [facility] Interpretation and review of laboratory results Normal [facility] Sinus rhythm with no rmal rate, intervals and QRS duration. No acute ischemic changes. Nonspecific INTRAVENTRICULAR CONDUCTION DELAY, similar to prior No acute ischemic changes Similar to previous EKG Electronically Signed On 10-12-2023 04:24:23 EDT by Jarad Morales, - 10/12/2023 IMPRESSION: Sinus rhythm with normal rate, intervals and QRS duration. No acute ischemic changes. Nonspecific INTRAVENTRICULAR CONDUCTION DELAY, similar to prior No acute ischemic changes Similar to previous EKG Electronically Signed On 10-12-2023 04:24:23 EDT by Jarad Ortiz [facility] Before 10am 4.5-22.7 ug/dL After 5pm 1.7-14.1 ug/dL [facility] Interpretation and review of laboratory results Abnormal [facility] Performed by: [facility], [address] [place] [address] CLIA ID: [id number] [facility] Interpretation and review of laboratory results Normal [facility] Interpretation and review of laboratory results Abnormal [facility] Performed by: [facility], [address] [place] [address] CLIA ID: [id number] [facility] Interpretation and review of laboratory results Normal [facility] Interpretation and review of laboratory results Normal [facility] Performed by: [facility], [address] [place] [address] CLIA ID: [id number] [facility] Interpretation and review of laboratory results Normal [facility] Radiology Study observation (narrative) [facility] Radiology Study observation (narrative) [facility] Radiology Study observation (narrative) [facility] Radiology Study observation (narrative) [facility] Radiology Study observation (narrative) [facility] Radiology Study observation (narrative) [facility] Radiology Study observation (narrative) [facility] Radiology Study observation (narrative) [facility] Radiology Study observation (narrative) [facility] Radiology Study observation (narrative) [facility] Radiology Study observation (narrative) [facility] Radiology Study observation (narrative) [facility] Radiology Study observation (narrative) [facility] No Panel InformationOrdered By: Jarad Ortiz on 10-12-2023 P [place] 57 degrees [employer] Work Phone: MN Interval 192 ms [employer] Work Phone: QRS [place] -62 degrees [employer] Work Phone: QRSD Interval 123 ms [employer] Work Phone: QT Interval 443 ms [employer] Work Phone: [phone] QTC Interval 479 ms [employer] Work Phone: T Wave [place] 66 degrees [employer] Work Phone: [employer] Work Phone: Vital signsOrdered By: Mynor Ortiz on 10-12-2023 Heart rate 70 /min bpm [employer] Work Phone: CBC W Auto Differential pane l (Bld)Ordered By: Francisca Boo on 10-11-2023 Erythrocyte distribution width (RBC) [Ratio] 15.5 % High 11.5 - 15.0 % [employer] Hematocrit (Bld) [Volume fraction] 41.4 % 35.0 - 47.0 % [employer] Hemoglobin (Bld) [Mass/Vol] 13.1 g/dL 11.7 - 16.0 g/dL [employer] Interpretation and review of laboratory results Abnormal [employer] IPF 4 [employer] MCH (RBC) [Entitic mass] 26.3 pg 26.0 - 34.0 pg [employer] MCHC (RBC) [Mass/Vol] 31.6 % 30.5 - 36.0 % [employer] MCV (RBC) [Entitic vol] 83.1 fL 77.0 - 99.0 fL [employer] Platelet mean volume (Bld) [Entitic vol] 9.8 fL 9.0 - 12.7 fL [employer] Platelets (Bld) [#/Vol] 74 10*3/uL Low 140 - 440 10*3/uL [employer] RBC (Bld) [#/Vol] 4.98 10*6/uL 3.80 - 5.2 0 10*6/uL [employer] WBC (Bld) [#/Vol] 6.1 10*3/uL 3.6 - 10.7 10*3/uL Study Edge CT Head WO contraston 04-01- 2024 1. No acute intracranial finding. Report Dictated on Electronically Signed By: Juan A Bo MD Electronically Signed Date/Time: 10/11/2023 9:02 PM EDT [facility] Patient Name: MELANIE REA [...] cisterns. No evidence of acute cortical infarct. [facility] Juan A Bo MD - 10/11/2023 [...] Electronically Signed Date/Time: 10/11/2023 9:02 PM EDT [facility] Radiology Study observation (narrative) [facility] CT Head WO contrastOrdered B y: Juan A Bo on 10-11-2023 [facility] Work Phone: Comprehensive metabolic 1998 panelOrdered By: Flavia Villaseñor on 10-11-2023 Albumin [Mass/Vol] 4.4 g/dL 3.5 - 5.0 g/dL [facility] ALP [Catalytic activity/Vol] 111 U/L 38 - 126 U/L [facility] ALT [Catalytic activity/Vol] 30 U/L 0 - 34 U/L [facility] Anion gap [Moles/Vol] 10 mmol/L 3 - 13 mmol/L [facility] AST [Catalytic activity/Vol] 31 U/L 15 - 46 U/L [facility] Bilirubin [Mass/Vol] 1.3 mg/dL 0.2 - 1 .3 mg/dL [facility] Calcium [Mass/Vol] 9.9 mg/dL 8.4 - 10. 4 mg/dL [facility] Chloride [Moles/Vol] 104 mmol/L 98 - 10 7 mmol/L [facility] CO2 [Moles/Vol] 26 mmol/L 22 - 30 mmol/L [facility] Creatinine [Mass/Vol] 0.87 mg/dL 0.52 - 1.04 mg/dL [facility] GFR/1.73 sq M.predicted MDRD (S/P/Bld) [Vol rate/Area] 78.3 mL/min/{1.73_m2} - PINF [facility] Comment on above: Calculation based on the Chronic Kidney Disease Epidemiology Collaboration (CKD-EPI) equation refit without adjustment for race Glucose [Mass/Vol] 27 mg/dL Critically low 70 - 10 0 mg/dL [facility] Interpretation and review of laboratory results Abnormal [facility] Potassium [Moles/Vol] 3.4 mmol/L Low 3.5 - 5.1 mmol/L [facility] Protein [Mass/Vol] 8.7 g/dL High 6.3 - 8.2 g/dL [facility] Sodium [Moles/Vol] 140 mmol/L 135 - 145 mmol/L [facility] Urea nitrogen [Mass/Vol] 19 mg/dL High 7 - 17 mg/dL [facility] Laboratory - Chemistry and C hemistry - challengeon 10-11-2023 Glucose [Mass/Vol] 108 mg/dL High 70 - 100 mg/dL [facility] Glucose [Mass/Vol] 129 mg/dL High 70 - 100 mg/dL [facility] Glucose [Mass/Vol] 54 mg/dL Low 70 - 100 mg/dL [facility] Glucose [Mass/Vol] 80 mg/dL 70 - 100 mg/dL [facility] Laboratory - Chemistry and C hemistry - challengeOrdered By: Pinky Copeland on 10-11-2023 Glucose [Mass/Vol] 108 mg/dL [facility] Laboratory - Hematology and Cell countson 10-11-2023 Lymphocytes (Bld) [#/Vol] 0.4 10*3/uL Low 1.0 - 4.3 10*3/uL [facility] Lymphocytes/100 WBC (Bld) 7 % Low 15 - 45 % [facility] Monocytes (Bld) [#/Vol] 0.7 10*3/uL 0.0 - 0.9 10*3/uL [facility] Monocytes/100 WBC (Bld) 11 % 5 - 13 % [facility] Neutrophils (Bld) [#/Vol] 4.9 10*3/uL 1.8 - 7.5 10*3/uL [facility] RBC morphology finding Nom (Bld) Normal [facility] Segmented neutrophils/100 WBC (Bld) 80 % 38 - 82 % [facility] Variant lymphocytes (Bld) [#/Vol] 0.1 10*3/uL High NINF - 0.0 10*3/uL [facility] [employer] Variant lymphocytes/100 WBC (Bld) 2 % High NINF - 0 % [facility] [employer] No Panel Informationon 10-10 Interpretation and review of laboratory results Abnormal [facility] Performed by: [facility], [address] [place] [id number] CLIA ID: [id number] [facility] Interpretation and review of laboratory results Abnormal [facility] Performed by: [facility], [address] [place] [address] CLIA ID: [id number] [facility] [employer] [facility] Interpretation and review of laboratory results Abnormal [facility] Performed by: [facility], [address] [facility] [address] CLIA ID: [id number] [facility] Atypical Lymphocytes Manual 2 [facility] Bands Manual [facility] Basophils Manual [facility] Blasts Manual [facility] Eosinophils Manual [facility] Interpretation and review of laboratory results Abnormal [facility] Lymphocytes Manual 7 [facility] Metamyelocytes Manual [facility] Monocytes Manual 11 [facility] Myelocytes Manual [facility] Neutrophils Manual 81 [facility] Promyelocytes Manual [facility] Unclassified Cells, Manual [facility] Interpretation and review of laboratory results Normal [facility] Performed by: [facility], [address] [place] [address] [place] [address] CLIA ID: [id number] [facility] Radiology Study observation (narrative) [facility] Radiology Study observation (narrative) [facility] Radiology Study observation (narrative) [facility] Radiology Study observation (narrative) [facility] No Panel InformationOrdered By: Pinky Copeland on 10-11-2023 Interpretation and review of laboratory results Normal [facility] Radiology Study observation (narrative) [facility] CBC W Auto Differential pane l (Bld)Ordered By: Zelda Go on 09-30-2023 Basophils (Bld) [#/Vol] 0.0 10*3/uL 0.0 - 0.2 10*3/uL [facility] Basophils/100 WBC (Bld) 0.4 % 0.0 - 2.0 % [facility] Eosinophils (Bld) [#/Vol] 0.0 10*3/uL 0.0 - 0.5 10*3/uL [facility] Eosinophils/100 WBC (Bld) 0.0 % 0.0 - 6.0 % [facility] Erythrocyte distribution width (RBC) [Ratio] 15.4 % High 11.5 - 15.0 % [facility] Hematocrit (Bld) [Volume fraction] 35.6 % 35.0 - 47.0 % [facility] Hemoglobin (Bld) [Mass/Vol] 11.2 g/dL Low 11.7 - 16.0 g/dL [facility] Immature granulocytes (Bld) [#/Vol] 0.0 10*3/uL NINF - 0.1 10*3/uL [facility] Immature granulocytes/100 WBC (Bld) 1.2 % 0.0 - 2.0 % [facility] [facility] Interpretation and review of laboratory results Abnormal [facility] IPF 4 [facility] Lymphocytes (Bld) [#/Vol] 0.3 10*3/uL Low 1.0 - 4.3 10*3/uL [facility] Lymphocytes/100 WBC (Bld) 12.9 % Low 15.0 - 45.0 % [facility] MCH (RBC) [Entitic mass] 27.1 pg 26.0 - 34.0 pg [facility] MCHC (RBC) [Mass/Vol] 31.5 % 30.5 - 36.0 % [facility] MCV (RBC) [Entitic vol] 86.2 fL 77.0 - 99.0 fL [facility] Monocytes (Bld) [#/Vol] 0.2 10*3/uL 0.0 - 0.9 10*3/uL [facility] Monocytes/100 WBC (Bld) 8.3 % 5.0 - 13.0 % [facility] Neutrophils (Bld) [#/Vol] 1.9 10*3/uL 1.8 - 7.5 10*3/uL [facility] Neutrophils/100 WBC (Bld) 77.2 % 38.0 - 82.0 % [facility] Nucleated RBC/100 WBC (Bld) [Ratio] 0.0 % [facility] Platelet mean volume (Bld) [Entitic vol] 9.9 fL 9.0 - 12.7 fL [facility] Platelets (Bld) [#/Vol] 62 10*3/uL Low 140 - 440 10*3/uL [facility] RBC (Bld) [#/Vol] 4.13 10*6/uL 3.80 - 5.2 0 10*6/uL [facility] WBC (Bld) [#/Vol] 2.4 10*3/uL Low 3.6 - 10.7 10*3/uL [facility] Cobalamin (Vitamin B12) [Mas s/Vol]on 09-30-2023 Interpretation and review of laboratory results Abnormal [facility] Comprehensive metabolic 1998 panelon 09-30-2023 Albumin [Mass/Vol] 4.0 g/dL 3.5 - 5.0 g/dL [facility] ALP [Catalytic activity/Vol] 118 U/L 38 - 126 U/L [facility] ALT [Catalytic activity/Vol] 20 U/L 0 - 34 U/L [facility] Anion gap [Moles/Vol] 8 mmol/L 3 - 13 mmol/L [facility] AST [Catalytic activity/Vol] 30 U/L 15 - 46 U/L [facility] Bilirubin [Mass/Vol] 1.0 mg/dL 0.2 - 1 .3 mg/dL [facility] Calcium [Mass/Vol] 9.4 mg/dL 8.4 - 10. 4 mg/dL [facility] Chloride [Moles/Vol] 105 mmol/L 98 - 10 7 mmol/L [facility] CO2 [Moles/Vol] 28 mmol/L 22 - 30 mmol/L [facility] Creatinine [Mass/Vol] 1.01 mg/dL 0.52 - 1.04 mg/dL [facility] GFR/1.73 sq M.predicted MDRD (S/P/Bld) [Vol rate/Area] 65.5 mL/min/{1.73_m2} - PINF [facility] Comment on above: Calculation based on the Chronic Kidney Disease Epidemiology Collaboration (CKD-EPI) equation refit without adjustment for race Glucose [Mass/Vol] 199 mg/dL High 70 - 100 mg/dL [facility] Interpretation and review of laboratory results Abnormal [facility] Potassium [Moles/Vol] 4.1 mmol/L 3.5 - 5.1 mmol/L [facility] Protein [Mass/Vol] 7.9 g/dL 6.3 - 8.2 g/dL [facility] Sodium [Moles/Vol] 141 mmol/L 135 - 145 mmol/L [facility] Urea nitrogen [Mass/Vol] 15 mg/dL 7 - 17 mg/dL [facility] Ferritinon 09-30-2023 Ferritin [Mass/Vol] 18 ng/mL 11 - 264 ng/mL [facility] Ferritin [Mass/Vol]on 2023 Interpretation and review of laboratory results Normal [facility] Folateon 09-30-2023 Folate [Mass/Vol] 11.4 ng/mL 2.9 - PINF ng/mL [facility] Folate [Mass/Vol]on 09-30-19 Interpretation and review of laboratory results Normal [facility] Homocysteine, serumon 2023 Homocysteine [Moles/Vol] 13.9 umol/L High 4.7 - 12.6 umol/L [facility] Interpretation and review of laboratory results Abnormal [facility] Iron and Iron binding capaci ty panelon 09-30-2023 Interpretation and review of laboratory results Normal [facility] Iron [Mass/Vol] 60 ug/dL 37 - 170 ug/dL [facility] Iron binding capacity [Mass/Vol] 357 ug/dL 261 - 497 ug/dL [facility] Iron saturation [Mass fraction] 17 % 15 - 50 % [facility] LDH Lactate to pyruvate reac tion [Catalytic activity/Vol]on 09-30-2023 Interpretation and review of laboratory results Normal [facility] Lactate dehydrogenaseon 09-10 LDH Lactate to pyruvate reaction [Catalytic activity/Vol] 137 U/L 120 - 246 U/L [facility] No Panel Informationon 09-29 [facility] Reticulocytes panel (Bld)on 09-30-2023 Reticulocytes/100 RBC (Bld) 1.73 % [facility] Vitamin B12on 09-30-2023 Cobalamin (Vitamin B12) [Mass/Vol] 168 pg/mL Low 239 - 931 pg/mL [facility] Bacteria identified Cx Nom ( U)on 08-28-2023 [facility] CBC panel Auto (Bld)on 08-28 Erythrocyte distribution width (RBC) [Ratio] 15.7 % High 11.0 - 15.0 % [facility] Hematocrit (Bld) [Volume fraction] 36.1 % 35.0 - 45.0 % [facility] Hemoglobin (Bld) [Mass/Vol] 11.9 g/dL 11.7 - 15.5 g/dL [facility] MCH (RBC) [Entitic mass] 28.0 pg 27.0 - 33.0 pg [facility] MCHC (RBC) [Mass/Vol] 33.0 g/dL 32.0 - 36.0 g/dL [facility] MCV (RBC) [Entitic vol] 84.9 fL 80.0 - 100.0 fL [facility] Platelet mean volume (Bld) [Entitic vol] 10.7 fL 7.5 - 12.5 fL [facility] Platelets (Bld) [#/Vol] 58 10*3/uL Low [facility] RBC (Bld) [#/Vol] 4.25 10*6/uL [facility] WBC (Bld) [#/Vol] 3.1 10*3/uL Low [facility] Comprehensive metabolic 1998 panelon 08-28-2023 Albumin [Mass/Vol] 3.6 g/dL 3.6 - 5.1 g/dL [facility] Albumin/Globulin [Mass ratio] 1.1 {ratio} [facility] ALP [Catalytic activity/Vol] 120 U/L 37 - 153 U/L [facility] ALT [Catalytic activity/Vol] 32 U/L High 6 - 29 U/L [facility] AST [Catalytic activity/Vol] 26 U/L 10 - 35 U/L [facility] Bilirubin [Mass/Vol] 0.9 mg/dL 0.2 - 1 .2 mg/dL [facility] Calcium [Mass/Vol] 8.8 mg/dL 8.6 - 10. 4 mg/dL [facility] Chloride [Moles/Vol] 106 mmol/L 98 - 11 0 mmol/L [facility] CO2 [Moles/Vol] 26 mmol/L 20 - 32 mmol/L [facility] Creatinine [Mass/Vol] 0.90 mg/dL 0.50 - 1.03 mg/dL [facility] GFR/1.73 sq M.predicted among non-blacks MDRD (S/P/Bld) [Vol rate/Area] 75 mL/min/{1.73_m2} > OR = 60 mL/min/1.73m 2 [facility] Globulin (S) [Mass/Vol] 3.4 g/dL [facility] Glucose [Mass/Vol] 188 mg/dL High 65 - 99 mg/dL [facility] Comment on above: Fasting reference interval For someone without known diabetes, a glucose value >125 mg/dL indicates that they may have diabetes and this should be confirmed with a follow-up test. Potassium [Moles/Vol] 3.9 mmol/L 3.5 - 5.3 mmol/L [facility] Protein [Mass/Vol] 7.0 g/dL 6.1 - 8.1 g/dL [facility] Sodium [Moles/Vol] 140 mmol/L 135 - 146 mmol/L [facility] Urea nitrogen [Mass/Vol] 14 mg/dL 7 - 25 mg/dL [facility] Urea nitrogen/Creatinine [Mass ratio] SEE NOTE: [facility] Comment on above: Not Reported: BUN an d Creatinine are within reference range. Hemoglobin A1con 08-28-2023 HbA1c (Bld) [Mass fraction] 6.9 % High [facility] Comment on above: For someone without known [...] of diabetes for children. HbA1c performed on [employer] platform. Effective 06/29/23 a change in test platforms may have shifted HbA1c results compared to historical results. Lipid 1996 panelon 4 Cholesterol [Mass/Vol] 157 mg/dL [facility] - 200 mg/dL [facility] Cholesterol in HDL [Mass/Vol] 55 mg/dL > OR = 50 [facility] Cholesterol in LDL [Mass/Vol] 86 mg/dL mg/dL (calc) [facility] Comment on above: Reference range: <10 0 Desirable range <100 mg/dL for primary prevention; <70 mg/dL for patients with CHD or diabetic patients with > or = 2 CHD risk factors. LDL-C is now calculated using the Ulises-Seay calculation, which is a validated novel method providing better accuracy than the Friedewald equation in the estimation of LDL-C. Ulises SS et al. MUNA. 2013;310(19): 8107-5103 (http://education.[employer]/faq/QTQ127) Cholesterol non HDL [Mass/Vol] 102 mg/dL [facility] Comment on above: For patients with di abetes plus 1 major ASCVD risk factor, treating to a non-HDL-C goal of <100 mg/dL (LDL-C of <70 mg/dL) is considered a therapeutic option. Cholesterol.total/Ch olesterol in HDL [Mass ratio] 2.9 {ratio} [facility] Triglyceride [Mass/Vol] 74 mg/dL [facility] - 150 mg/dL [facility] No Panel Informationon 08-28 Interpretation and review of laboratory results Abnormal [facility] Urine culture (clean catch)o n 08-28-2023 Bacteria identified Cx Nom (U) SEE NOTE Abnormal [facility] Comment on above: CULTURE, URINE, ROUTINE Micro Number: [id number] Test Status: Final Specimen Source: Urine, clean [...] (dipstick) panel (U)on 08-26-2023 Bilirubin, UA Small [facility] Blood, UA Small [facility] Glucose, UA Negative [facility] Interpretation and review of laboratory results Abnormal [facility] Ketones, POC (mg/dL) Negative [facility] Leukocytes, UA Trace [facility] Nitrite, UA Negative [facility] pH, UA 6.5 [facility] Protein, UA 100 [facility] Spec Grav, UA 1.015 [facility] Urobilinogen, UA 0.2 [facility] Radiology Study observation (narrative) [facility] Basic metabolic 1998 panelon 05-16-2023 Anion gap [Moles/Vol] 6 mmol/L 3 - 13 mmol/L [facility] Calcium [Mass/Vol] 9.4 mg/dL 8.4 - 10. 4 mg/dL [facility] Chloride [Moles/Vol] 105 mmol/L 98 - 10 7 mmol/L [facility] CO2 [Moles/Vol] 27 mmol/L 22 - 30 mmol/L [facility] Creatinine [Mass/Vol] 0.91 mg/dL 0.52 - 1.04 mg/dL [facility] GFR/1.73 sq M.predicted MDRD (S/P/Bld) [Vol rate/Area] 74.7 mL/min/{1.73_m2} - PINF [facility] Comment on above: Calculation based on the Chronic Kidney Disease Epidemiology Collaboration (CKD-EPI) equation refit without adjustment for race Glucose [Mass/Vol] 170 mg/dL High 70 - 100 mg/dL [facility] Potassium [Moles/Vol] 4.2 mmol/L 3.5 - 5.1 mmol/L [facility] Sodium [Moles/Vol] 138 mmol/L 135 - 145 mmol/L [facility] Urea nitrogen [Mass/Vol] 16 mg/dL 7 - 17 mg/dL [facility] CBC W Auto Differential pane l (Bld)Ordered By: Gina Márquez on 05-16-2023 Erythrocyte distribution width (RBC) [Ratio] 16.5 % High 11.5 - 14.5 % [facility] Hematocrit (Bld) [Volume fraction] 38.1 % 35.0 - 47.0 % [facility] Hemoglobin (Bld) [Mass/Vol] 12.3 g/dL 11.7 - 16.0 g/dL [facility] Interpretation and review of laboratory results Abnormal [facility] MCH (RBC) [Entitic mass] 27.3 pg 26.0 - 34.0 pg [facility] MCHC (RBC) [Mass/Vol] 32.3 % 32.0 - 36.0 % [facility] MCV (RBC) [Entitic vol] 84.4 fL 80.0 - 98.0 fL [facility] Platelet mean volume (Bld) [Entitic vol] 8.4 fL 7.4 - 12.4 fL [facility] Platelets (Bld) [#/Vol] 69 10*3/uL Low 140 - 440 10*3/uL [facility] RBC (Bld) [#/Vol] 4.51 10*6/uL 3.8 - 5.20 10*6/uL [facility] WBC (Bld) [#/Vol] 2.9 10*3/uL Low 3.6 - 10.7 10*3/uL [facility] Hepatic function 2000 panelo n 05-16-2023 Albumin [Mass/Vol] 4.0 g/dL 3.5 - 5.0 g/dL [facility] ALP [Catalytic activity/Vol] 150 U/L High 38 - 126 U/L [facility] ALT [Catalytic activity/Vol] 29 U/L 0 - 34 U/L [facility] AST [Catalytic activity/Vol] 35 U/L 15 - 46 U/L [facility] Bilirubin [Mass/Vol] 1.1 mg/dL 0.2 - 1 .3 mg/dL [facility] Bilirubin.conjugated [Mass/Vol] 0.0 mg/dL 0.0 - 0.3 mg/dL [facility] Protein [Mass/Vol] 8.3 g/dL High 6.3 - 8.2 g/dL [facility] Laboratory - Chemistry and C hemistry - challengeon 05-16-2023 Troponin I.cardiac [Mass/Vol] ng/mL [facility] - 0.034 ng/mL [facility] Troponin I.cardiac [Mass/Vol] 0.012 ng/mL [facility] - 0.034 ng/mL [facility] Magnesium [Mass/Vol] 1.5 mg/dL Low 1.6 - 2 .3 mg/dL [facility] Manual differential performe d Ql (Bld)on 05-16-2023 Anisocytosis Ql (Bld) Moderate Abnormal (none) [facility] Basophils (Bld) [#/Vol] 0.0 10*3/uL 0.0 - 0.2 10*3/uL [facility] Basophils Manual 1 [facility] Basophils/100 WBC (Bld) 1 % 0 - 2 % [facility] Cells Counted Total (Bld) [#] 100 {cells} [facility] Differential Method Manual differential performed [facility] Interpretation and review of laboratory results Abnormal [facility] Leukocyte morphology finding Nom (Bld) Normal [facility] Lymphocytes (Bld) [#/Vol] 0.6 10*3/uL Low 1.0 - 4.3 10*3/uL [facility] Lymphocytes Manual 22 [facility] Lymphocytes/100 WBC (Bld) 22 % 20 - 40 % [facility] Monocytes (Bld) [#/Vol] 0.1 10*3/uL 0.0 - 0.8 10*3/uL [facility] Monocytes Manual 5 [facility] Monocytes/100 WBC (Bld) 5 % 2 - 10 % [facility] Neutrophils (Bld) [#/Vol] 2.1 10*3/uL 1.8 - 7.0 10*3/uL [facility] Neutrophils Manual 72 [facility] [employer] Ovalocytes LM Ql (Bld) Slight Abnormal (none) [facility] Platelet morphology finding Nom (Bld) Normal [facility] [employer] Segmented neutrophils/100 WBC (Bld) 72 % 40 - 80 % [facility] [employer] WBC corrected for nucl RBC (Bld) [#/Vol] 2.9 10*3/uL Low 3.6 - 10.7 10*3/uL [facility] No Panel InformationOrdered By: Khris Bright on 05-16-2023 P [place] 57 degrees [facility] Work Phone: MN Interval 187 ms [facility] Work Phone: QRS [place] -62 degrees [facility] Work Phone: QRSD Interval 106 ms [facility] Work Phone: QT Interval 412 ms [facility] Work Phone: QTC Interval 434 ms [facility] Work Phone: T Wave [place] 60 degrees [facility] Work Phone: [facility] Work Phone: No Panel Informationon 05-16 Sinus rhythm Left anterior fascicular block NONSPECIFIC REPOLARIZATION ABNORMALITIES Electronically Signed On 05-16-2023 23:22:40 EST by Khris Bright CV Khris Jaquez MD - 05/16/2023 IMPRESSION: Sinus rhythm Left anterior fascicular block NONSPECIFIC REPOLARIZATION ABNORMALITIES Electronically Signed On 05-16-2023 23:22:40 EST by Khris Bright [facility] Interpretation and review of laboratory results Abnormal [facility] Troponin I.cardiac [Mass/Vol ]on 05-16-2023 Interpretation and review of laboratory results Normal [facility] Patients with high l evels of Biotin oral intake (ie >5 mg/day) may have falsely decreased Troponin levels. [facility] Interpretation and review of laboratory results Normal [facility] Patients with high l evels of Biotin oral intake (ie >5 mg/day) may have falsely decreased Troponin levels. [facility] Vital signsOrdered By: Khris Bright on 05-16-2023 Heart rate 67 /min bpm [facility] Work Phone: XR Chest Single viewon 05-16 No acute cardiopulmonary disease. Report Dictated on Electronically Signed By: Fadi Sumner MD Electronically Signed Date/Time: 05/16/2023 1:16 PM EST [facility] Patient Name: MELANIE REA : 1965 Exam Date/Time: 05/16/2023 13:27 Procedure: [...] changes of the thoracic spine are noted. [facility] Fadi Sumner MD - 05/16/2023 Patient Name: [...] Electronically Signed Date/Time: 05/16/2023 1:16 PM EST [facility] Radiology Study observation (narrative) [facility] XR Chest Single viewOrdered By: Fadi Sumner on 05-16-20[address] [facility] [address] Cervical spine WO contras ton 03-15-2023 No fracture or dislocation of the cervical spine. Mild degenerative changes from C4 through C6. Report Dictated on Electronically Signed By: Fadi Sumner MD Electronically Signed Date/Time: 03/15/2023 11:38 AM EDT [facility] [employer] Patient Name: MELANIE REA : 1965 [...] No bony neural foraminal narrowing is seen. [facility] Fadi Sumner MD - [...] Electronically Signed Date/Time: 03/15/2023 11:38 AM EDT [facility] CT Head WO contraston [address] of the brain. Report Dictated on Electronically Signed By: Fadi Sumner MD Electronically Signed Date/Time: 03/15/2023 11:34 AM EDT [employer] [facility] 1965 [id number] Exam Date/Time: 03/15/2023 11:59 Procedure: CT HEAD [...] portion of the paranasal sinuses appear clear. [employer] Fadi Sumner MD - 03/15/2023 Patient Name: MELANIE TOVAR : 1965 [facility]#: [id number] Exam Date/Time: 03/15/2023 11:59 Procedure: CT HEAD [...] Electronically Signed Date/Time: 03/15/2023 11:[address] [facility] [address] Head WO contrastOrdered B y: Fadi Sumner on 03-15-2023 [employer] Work Phone: No Panel Informationon 03-15 Radiology Study observation (narrative) [facility] [employer] Laboratory - Chemistry and C hemistry - challengeon 02-20-2023 Glucose [Mass/Vol] 152 mg/dL High 70 - 100 mg/dL [facility] [employer] Glucose [Mass/Vol] 170 mg/dL High 70 - 100 mg/dL [facility] [employer] Glucose [Mass/Vol] 149 mg/dL High 70 - 100 mg/dL [facility] [employer] [facility] No Panel Informationon 02-20 Interpretation and review of laboratory results Abnormal [facility] [employer] Performed by: [facility], [address] [place] [id number] CLIA ID: [id number] [facility] [employer] [facility] [employer] Interpretation and review of laboratory results Abnormal [facility] [employer] Performed by: [facility], [address] [facility] [address] CLIA ID: [id number] [facility] [employer] [facility] Interpretation and review of laboratory results Abnormal [facility] Performed by: [facility], [address] [facility] [address] CLIA ID: [id number] [facility] Laboratory - Chemistry and C hemistry - challengeon 02-19-2023 Glucose [Mass/Vol] 159 mg/dL High 70 - 100 mg/dL [facility] Glucose [Mass/Vol] 153 mg/dL High 70 - 100 mg/dL [facility] Glucose [Mass/Vol] 231 mg/dL High 70 - 100 mg/dL [facility] Glucose [Mass/Vol] 122 mg/dL High 70 - 100 mg/dL [facility] Glucose [Mass/Vol] 78 mg/dL 70 - 100 mg/dL [facility] Glucose [Mass/Vol] 82 mg/dL 70 - 100 mg/dL [facility] No Panel Informationon 02-19 Interpretation and review of laboratory results Abnormal [facility] Performed by: [facility], [address] [place] [id number] CLIA ID: [id number] [facility] Interpretation and review of laboratory results Abnormal [facility] Performed by: [facility], [address] [place] [address] CLIA ID: [id number] [facility] Interpretation and review of laboratory results Abnormal [facility] Performed by: [facility], [address] [place] [address] CLIA ID: [id number] [facility] Interpretation and review of laboratory results Abnormal [facility] Performed by: [facility], [address] [place] [id number] CLIA ID: [id number] [facility] Interpretation and review of laboratory results Normal [facility] Performed by: [facility], [address] [place] [address] CLIA ID: [id number] [facility] Interpretation and review of laboratory results Normal [facility] Performed by: [facility], [address] [facility] [address] CLIA ID: [id number] [facility] CBC W Auto Differential pane l (Bld)on 02-18-2023 Basophils (Bld) [#/Vol] 0.0 10*3/uL 0.0 - 0.2 10*3/uL [facility] Basophils/100 WBC (Bld) 0.1 % 0.0 - 2.0 % [facility] Eosinophils (Bld) [#/Vol] 0.0 10*3/uL 0.0 - 0.5 10*3/uL [facility] Eosinophils/100 WBC (Bld) 0.0 % Low 1.0 - 6.0 % [facility] Erythrocyte distribution width (RBC) [Ratio] 16.5 % High 11.5 - 14.5 % [facility] Hematocrit (Bld) [Volume fraction] 38.4 % 35.0 - 47.0 % [facility] Hemoglobin (Bld) [Mass/Vol] 12.2 g/dL 11.7 - 16.0 g/dL [facility] Interpretation and review of laboratory results Abnormal [facility] Lymphocytes (Bld) [#/Vol] 0.6 10*3/uL Low 1.0 - 4.3 10*3/uL [facility] Lymphocytes/100 WBC (Bld) 20.0 % 20.0 - 40.0 % [facility] MCH (RBC) [Entitic mass] 27.1 pg 26.0 - 34.0 pg [facility] MCHC (RBC) [Mass/Vol] 31.8 % Low 32.0 - 36.0 % [facility] MCV (RBC) [Entitic vol] 85.0 fL 80.0 - 98.0 fL [facility] Monocytes (Bld) [#/Vol] 0.3 10*3/uL 0.0 - 0.8 10*3/uL [facility] Monocytes/100 WBC (Bld) 8.3 % 2.0 - 10.0 % [facility] Neutrophils (Bld) [#/Vol] 2.2 10*3/uL 1.8 - 7.0 10*3/uL [facility] Neutrophils/100 WBC (Bld) 71.6 % 40.0 - 80.0 % [facility] Nucleated RBC/100 WBC (Bld) [Ratio] 0.1 % [facility] Platelet mean volume (Bld) [Entitic vol] 8.2 fL 7.4 - 12.4 fL [facility] Platelets (Bld) [#/Vol] 74 10*3/uL Low 140 - 440 10*3/uL [facility] RBC (Bld) [#/Vol] 4.52 10*6/uL 3.8 - 5.20 10*6/uL [facility] WBC (Bld) [#/Vol] 3.0 10*3/uL Low 3.6 - 10.7 10*3/uL [facility] Comprehensive metabolic 1998 panelon 02-18-2023 Albumin [Mass/Vol] 3.8 g/dL 3.5 - 5.0 g/dL [facility] ALP [Catalytic activity/Vol] 139 U/L High 38 - 126 U/L [facility] ALT [Catalytic activity/Vol] 20 U/L 0 - 34 U/L [facility] Anion gap [Moles/Vol] 7 mmol/L 3 - 13 mmol/L [facility] AST [Catalytic activity/Vol] 41 U/L 15 - 46 U/L [facility] Bilirubin [Mass/Vol] 0.7 mg/dL 0.2 - 1 .3 mg/dL [facility] Calcium [Mass/Vol] 9.1 mg/dL 8.4 - 10. 4 mg/dL [facility] Chloride [Moles/Vol] 104 mmol/L 98 - 10 7 mmol/L [facility] CO2 [Moles/Vol] 29 mmol/L 22 - 30 mmol/L [facility] Creatinine [Mass/Vol] 0.91 mg/dL 0.52 - 1.04 mg/dL [facility] GFR/1.73 sq M.predicted MDRD (S/P/Bld) [Vol rate/Area] 74.7 mL/min/{1.73_m2} - PINF [facility] Comment on above: Calculation based on the Chronic Kidney Disease Epidemiology Collaboration (CKD-EPI) equation refit without adjustment for race Glucose [Mass/Vol] 56 mg/dL Low 70 - 100 mg/dL [facility] Interpretation and review of laboratory results Abnormal [facility] Potassium [Moles/Vol] 3.7 mmol/L 3.5 - 5.1 mmol/L [facility] Protein [Mass/Vol] 7.4 g/dL 6.3 - 8.2 g/dL [facility] Sodium [Moles/Vol] 140 mmol/L 135 - 145 mmol/L [facility] Urea nitrogen [Mass/Vol] 17 mg/dL 7 - 17 mg/dL [facility] Laboratory - Chemistry and C hemistry - challengeon 02-18-2023 Glucose [Mass/Vol] 85 mg/dL 70 - 100 mg/dL [facility] Glucose [Mass/Vol] 62 mg/dL Low 70 - 100 mg/dL [facility] Glucose [Mass/Vol] 82 mg/dL 70 - 100 mg/dL [facility] Glucose [Mass/Vol] 60 mg/dL Low 70 - 100 mg/dL [facility] Laboratory - Microbiology an d Antimicrobial susceptibilityon 02-18-2023 FLUAV RNA EVERETTE+probe Ql (Resp) Not detected Not Detected [facility] FLUBV RNA EVERETTE+probe Ql (Resp) Not detected Not Detected [facility] RSV RNA EVERETTE+probe Ql (Resp) Not detected Not Detected [facility] SARS-CoV-2 (COVID-19) RNA EVERETTE+probe Ql (Resp) Not detected Not Detected [facility] SARS-CoV-2 (COVID-19) RNA EVERETTE+probe Ql (Unsp spec) Methodology: real-time, RT-PCR The SARS-CoV-2, Flu A/B, and RSV Combo assay is intended for in vitro diagnostic use under the FDA Emergency Use Authorization (EUA). This test has not been FDA cleared or approved. In compliance with this authorization, please visit www.fda.gov/media/229970/d ownload or www.fda.gov/media/473459/d ownload to access the applicable information sheets. [facility] No Panel Informationon 02-18 Interpretation and review of laboratory results Normal [facility] Performed by: [facility], [address] [place] [id number] CLIA ID: [id number] [facility] Interpretation and review of laboratory results Abnormal [facility] Performed by: [facility], [address] [place] [id number] CLIA ID: [id number] [facility] Interpretation and review of laboratory results Normal [facility] Performed by: [facility], [address] [place] [address] CLIA ID: [id number] [facility] Interpretation and review of laboratory results Abnormal [facility] Performed by: [facility], [address] [facility] [address] CLIA ID: [id number] [facility] SARS-CoV-2, Flu A/B, and RSV Comboon 02-18-2023 Interpretation and review of laboratory results Normal [facility] Urinalysis complete panel (U )Ordered By: Porfirio Whalen on 02-18-2023 Bacteria LM.HPF (Urine sed) [#/Area] Few Abnormal Negative /HPF [facility] Bilirubin Ql (U) Negative Negative mg/dL [facility] Clarity (U) Clear Clear [facility] Color (U) Yellow Lt. Yellow [facility] Epithelial cells.squamous LM.HPF (Urine sed) [#/Area] 11-25 Abnormal [facility] Glucose Ql (U) Normal Normal (<70) mg/dL [facility] Hemoglobin Ql (U) Negative Negative mg/dL [facility] Hyaline casts Auto (Urine sed) [#/Area] 0-2 Abnormal Negative /LPF [facility] Interpretation and review of laboratory results Abnormal [facility] Ketones (U) [Mass/Vol] Negative Negative mg/dL [facility] Leukocyte esterase Test strip Ql (U) Negative Negative Kevin/uL [facility] Mucus LM.HPF (Urine sed) [#/Area] Few Negative /LPF [facility] Nitrite Ql (U) Negative Negative [facility] pH (U) 5.5 [pH] 5.0 - 8.0 pH [facility] Protein (U) [Mass/Vol] 30 mg/dL Abnormal Negative [facility] RBC LM.HPF (Urine sed) [#/Area] 0-2 [facility] Specific gravity (U) [Rel density] 1.019 1.005 - 1.030 [facility] Urobilinogen (U) [Mass/Vol] Normal Normal (0-1) mg/dL [facility] WBC LM.HPF (Urine sed) [#/Area] 0-2 [facility] Basic metabolic 1998 panelon 02-13-2023 Anion gap [Moles/Vol] 4 mmol/L 3 - 13 mmol/L [facility] Calcium [Mass/Vol] 8.6 mg/dL 8.4 - 10. 4 mg/dL [facility] Chloride [Moles/Vol] 104 mmol/L 98 - 10 7 mmol/L [facility] CO2 [Moles/Vol] 27 mmol/L 22 - 30 mmol/L [facility] Creatinine [Mass/Vol] 1.01 mg/dL 0.52 - 1.04 mg/dL [facility] GFR/1.73 sq M.predicted MDRD (S/P/Bld) [Vol rate/Area] 65.9 mL/min/{1.73_m2} - PINF [facility] Comment on above: Calculation based on the Chronic Kidney Disease Epidemiology Collaboration (CKD-EPI) equation refit without adjustment for race Glucose [Mass/Vol] 203 mg/dL High 70 - 100 mg/dL [facility] Interpretation and review of laboratory results Abnormal [facility] Potassium [Moles/Vol] 3.7 mmol/L 3.5 - 5.1 mmol/L [facility] Sodium [Moles/Vol] 135 mmol/L 135 - 145 mmol/L [facility] Urea nitrogen [Mass/Vol] 17 mg/dL 7 - 17 mg/dL [facility] CBC W Auto Differential pane l (Bld)Ordered By: Jelly Knott on 02-13-2023 Basophils (Bld) [#/Vol] 0.0 10*3/uL 0.0 - 0.2 10*3/uL [facility] Basophils/100 WBC (Bld) 0.4 % 0.0 - 2.0 % [facility] Eosinophils (Bld) [#/Vol] 0.0 10*3/uL 0.0 - 0.5 10*3/uL [facility] Eosinophils/100 WBC (Bld) 0.0 % Low 1.0 - 6.0 % [facility] Erythrocyte distribution width (RBC) [Ratio] 16.3 % High 11.5 - 14.5 % [facility] Hematocrit (Bld) [Volume fraction] 35.4 % 35.0 - 47.0 % [facility] Hemoglobin (Bld) [Mass/Vol] 11.5 g/dL Low 11.7 - 16.0 g/dL [facility] Interpretation and review of laboratory results Abnormal [facility] Lymphocytes (Bld) [#/Vol] 0.7 10*3/uL Low 1.0 - 4.3 10*3/uL [facility] Lymphocytes/100 WBC (Bld) 27.0 % 20.0 - 40.0 % [facility] MCH (RBC) [Entitic mass] 27.3 pg 26.0 - 34.0 pg [facility] MCHC (RBC) [Mass/Vol] 32.6 % 32.0 - 36.0 % [facility] MCV (RBC) [Entitic vol] 83.6 fL 80.0 - 98.0 fL [facility] Monocytes (Bld) [#/Vol] 0.2 10*3/uL 0.0 - 0.8 10*3/uL [facility] Monocytes/100 WBC (Bld) 9.2 % 2.0 - 10.0 % [facility] Neutrophils (Bld) [#/Vol] 1.7 10*3/uL Low 1.8 - 7.0 10*3/uL [facility] Neutrophils/100 WBC (Bld) 63.4 % 40.0 - 80.0 % [facility] Nucleated RBC/100 WBC (Bld) [Ratio] 0.1 % [facility] Platelet mean volume (Bld) [Entitic vol] 8.3 fL 7.4 - 12.4 fL [facility] Platelets (Bld) [#/Vol] 64 10*3/uL Low 140 - 440 10*3/uL [facility] RBC (Bld) [#/Vol] 4.23 10*6/uL 3.8 - 5.20 10*6/uL [facility] WBC (Bld) [#/Vol] 2.6 10*3/uL Low 3.6 - 10.7 10*3/uL [facility] Calcium.ionized [Moles/Vol]o n 02-13-2023 Calcium.ionized (Bld) [Moles/Vol] 4.40 mg/dL 4.30 - 5.20 mg/dL [facility] Interpretation and review of laboratory results Normal [facility] PH, IONIZED CALCIUM 7.44 7.31 - 7.46 [facility] Laboratory - Chemistry and C hemistry - challengeon 02-13-2023 Troponin I.cardiac [Mass/Vol] ng/mL 0.000 - 0.034 ng/mL [facility] Glucose [Mass/Vol] 198 mg/dL High 70 - 100 mg/dL [facility] Glucose [Mass/Vol] 198 mg/dL [facility] No Panel Informationon 02-13 Interpretation and review of laboratory results Abnormal [facility] Performed by: [facility], [address] [place] [address] CLIA ID: [id number] [facility] Interpretation and review of laboratory results Normal [facility] Troponin I.cardiac [Mass/Vol ]on 02-13-2023 Interpretation and review of laboratory results Normal [facility] Patients with high l evels of Biotin oral intake (ie >5 mg/day) may have falsely decreased Troponin levels. [facility] XR Chest Single viewon 02-13 1. No acute findings. Report Dictated on Electronically Signed By: John Beaver MD Electronically Signed Date/Time: 02/13/2023 8:07 PM EDT [facility] Patient Name: MELANIE REA : 1965 Exam Date/Time: 02/13/2023 20:08 Procedure: [...] or apparent pneumothorax. Bony thorax grossly unremarkable. [facility] John Beaver MD - 02/13/2023 Patient Name: [...] Date/Time: 02/13/2023 8:07 PM EDT [facility] Radiology Study observation (narrative) [facility] XR Chest Single viewOrdered By: John Beaver on 02-13-2023 [facility] Work Phone: XR Knee - left 4 Viewson 1. No acute osseous abnormality. 2. Mild degenerative change. Report Dictated on Electronically Signed By: John Beaver MD Electronically Signed Date/Time: 02/06/2023 9:44 PM EDT [facility] Patient Name: MELANIE REA [...] patellofemoral joints spaces. Soft tissues grossly unremarkable. [facility] John Beaver MD - 02/06/2023 Patient Name: MELANIE TOVAR : 1965 Exam Date/Time: 02/06/2023 21:34 Procedure: [...] Electronically Signed Date/Time: 02/06/2023 9:44 PM EDT [facility] [employer] Radiology Study observation (narrative) [employer] XR Knee - left 4 ViewsOrdere d By: John Beaver on 02-06-2023 [facility] [employer] Work Phone: Basophil percentageon 2021 Chloride [Moles/Vol] 106 mmol/L 98-107 [facility] Work Phone: Cholesterol [Mass/Vol] 124 mg/dL <200 [facility] Work Phone: Comment on above: <200 mg/dL Desirable 200-240 mg/dL Borderline >240 mg/dL High Risk Glucose [Mass/Vol] 137 mg/dL 74-106 [facility] Work Phone: Comment on above: Fasting Glucose resu lt greater than or equal to 126 mg/dL suggests DIABETES MELLITUS per A.D.A. criteria. Potassium [Moles/Vol] 4.4 mmol/L 3.5-5.1 [facility] Work Phone: Sodium [Moles/Vol] 138 mmol/L 136-145 [facility] Work Phone: Triglyceride [Mass/Vol] 128 mg/dL <199 [facility] Work Phone: Comment on above: The drugs N-Acetylcy steine and Metamizole may falsely depress this assay.Serum Triglycerides Reference Interval Normal <150 mg/dL Borderline high 150 - 199 mg/dL High 200 - 499 mg/dL Very High > or = 500 mg/dL Laboratory - Chemistry and C hemistry - challengeon 05-22-2022 CO2 [Moles/Vol] 26.0 mmol/L 21.0-32.0 [facility] Work Phone: Urea nitrogen/Creatinine [Mass ratio] 21.4 mg/mg 10-20 [facility] Work Phone: No Panel Informationon 05-22 Estimated GFR (MDRD) Amer 76 mL/min >60 [facility] Work Phone: Comment on above: GFR Calc Estimated GFR (MDRD) Non-Af Amer 63 mL/min >60 [facility] Work Phone: Comment on above: Non- GFR Calc Serum or plasma calcium kenna urement (mass/volume)on 05-22-2022 Calcium [Mass/Vol] 9.2 mg/dL 8.5-10.1 [facility] Work Phone: Serum or plasma cholesterol in HDL measurement (mass/volume)on 05-22-2022 Cholesterol in HDL [Mass/Vol] 40 mg/dL >40 [facility] Work Phone: Comment on above: The drugs N-Acetylcy steine and Metamizole may falsely depress this assay. Reference Range HDL <40 mg/dL Low HDL Cholesterol HDL >or= 60 mg/dL High HDL Cholesterol Serum or plasma cholesterol in VLDL measurement (mass/volume)on 05-22-2022 Cholesterol in VLDL [Mass/Vol] 26 mg/dL 5-40 [facility] Work Phone: Serum or plasma creatinine m easurement (mass/volume)on 05-22-2022 Creatinine [Mass/Vol] 0.98 mg/dL 0.55-1.02 [facility] Work Phone: Comment on above: The validity of the calculated GFR & GFRAA in patients over 70 years has not been determined. Clinical correlation is essential. Serum or plasma low density lipoprotein (LDL) cholesterol measurement (mass/volume)on 05-22-2022 Cholesterol in LDL [Mass/Vol] 58 mg/dL 0-130 [facility] Work Phone: Serum or plasma urea nitroge n measurement (mass/volume)on 05-22-2022 Urea nitrogen [Mass/Vol] 21 mg/dL 7-18 [facility] Work Phone: Thin prep Papanicolaou smear with manual screeningon 05-22-2022 Thin prep Papanicolaou smear with manual screening 6 5-15 [facility] Work Phone: Absolute lymphocyte counton 03-07-2022 Lymphocytes Auto (Unsp spec) [#/Vol] 1.02 10*3/uL 0.83-4.51 [facility] Work Phone: Basophil percentageon 2021 Basophils/100 WBC (Bld) 0.3 % 0-1 [facility] Work Phone: Chloride [Moles/Vol] 106 mmol/L 98-107 [facility] Work Phone: Eosinophils/100 WBC (Bld) 0.0 % 0-5 [facility] Work Phone: Glucose [Mass/Vol] 321 mg/dL 74-106 [facility] Work Phone: [phone] Comment on above: Slight Lipemia, Resu lt may be falsely increased.Glucose result greater than or equal to 200 mg/dLsuggests DIABETES MELLITUS per A.D.A. criteria. Neutrophils (Bld) [#/Vol] 2.5 10*3/uL 2.0-7.7 [facility] Work Phone: Neutrophils/100 WBC (Bld) 63.5 % 47-70 [facility] Work Phone: Potassium [Moles/Vol] 4.2 mmol/L 3.5-5.1 [facility] Work Phone: Comment on above: Slight Hemolysis, Re sult may be falsely increased.-Slight Lipemia, Result may be falsely increased. Sodium [Moles/Vol] 138 mmol/L 136-145 [facility] Work Phone: WBC (Bld) [#/Vol] 3.9 10*3/uL 4.4-11.0 [facility] Work Phone: Blood erythrocytes count (nu mber/volume)on 03-07-2022 RBC (Bld) [#/Vol] 4.46 10*6/uL 4.2-5.4 [facility] Work Phone: Blood hemoglobin measurement (mass/volume)on 03-07-2022 Hemoglobin (Bld) [Mass/Vol] 12.8 g/dL 12.0-15.0 [facility] Work Phone: Blood lymphocytes/100 leukoc yteson 03-07-2022 Lymphocytes/100 WBC (Bld) 26.0 % 19-41 [facility] Work Phone: Blood monocytes/100 leukocyt eson 03-07-2022 Monocytes/100 WBC (Bld) 9.7 % 0-10 [facility] Work Phone: Blood platelet mean volumeon 03-07-2022 Platelet mean volume (Bld) [Entitic vol] 11.3 fL 6.2-12.0 [facility] Work Phone: Determination of erythrocyte mean corpuscular volume (MCV)on 03-07-2022 MCV (RBC) [Entitic vol] 89.7 fL 81-99 [facility] Work Phone: Hematocrit Auto (Bld) [Volum e fraction]on 03-07-2022 Hematocrit (Bld) [Volume fraction] 40.0 % 37-47 [facility] Work Phone: Laboratory - Chemistry and C hemistry - challengeon 03-07-2022 CO2 [Moles/Vol] 25.0 mmol/L 21.0-32.0 [facility] Work Phone: Comment on above: Slight Lipemia, Resu lt may be falsely increased. Urea nitrogen/Creatinine [Mass ratio] 12.7 mg/mg 10-20 [facility] Work Phone: Laboratory - Hematology and Cell countson 03-07-2022 Erythrocyte distribution width (RBC) [Entitic vol] 52.6 fL 35.1-43.9 [facility] Work Phone: Erythrocyte distribution width (RBC) [Ratio] 16.2 % 11.6-14.6 [facility] Work Phone: Immature granulocytes/100 WBC (Bld) 0.500 % 0.0-0.9 [facility] Work Phone: Comment on above: IG% - Immature Granu locytes (promyelocytes, myelocytes and metamyelocytes) > 1% indicates that a LEFT SHIFT is Present. MCH (RBC) [Entitic mass] 28.7 pg 27.0-32.0 [facility] Work Phone: Nucleated RBC/100 WBC (Bld) [Ratio] 0 % 0-5 [facility] Work Phone: MCHC Auto (RBC) [Mass/Vol]on 03-07-2022 MCHC (RBC) [Mass/Vol] 32.0 g/dL 32-36 [facility] Work Phone: No Panel Informationon 03-07 Troponin I High Sensitivity 18 pg/mL 3.0-54.0 [facility] Work Phone: Comment on above: Please Note: New Julia t Units and Gender Specific Reference Ranges. For more information see Policy Stat Procedure Malcolm High Sensitivity Troponin (TNIH) and attachments. Estimated Creatinine Clearance Calc 45.93 ml/min [facility] Work Phone: Estimated GFR (MDRD) Amer 57 mL/min >60 [facility] Work Phone: Comment on above: GFR Calc Estimated GFR (MDRD) Non-Af Amer 47 mL/min >60 [facility] Work Phone: Comment on above: Non- GFR Calc Platelets bldon 03-07-2022 Platelets (Bld) [#/Vol] 85 10*3/uL 150-450 [facility] Work Phone: Serum or plasma calcium kenna urement (mass/volume)on 03-07-2022 Calcium [Mass/Vol] 8.8 mg/dL 8.5-10.1 [facility] Work Phone: Comment on above: Slight Lipemia, Resu lt may be falsely increased. Serum or plasma creatinine m easurement (mass/volume)on 03-07-2022 Creatinine [Mass/Vol] 1.26 mg/dL 0.55-1.02 [facility] Work Phone: Comment on above: Slight Lipemia, Resu lt may be falsely increased.The validity of the calculated GFR & GFRAA in patients over 70 years has not been determined. Clinical correlation is essential. Serum or plasma urea nitroge n measurement (mass/volume)on 03-07-2022 Urea nitrogen [Mass/Vol] 16 mg/dL 7-18 [facility] Work Phone: Comment on above: Slight Lipemia, Resu lt may be falsely increased. Thin prep Papanicolaou smear with manual screeningon 03-07-2022 Thin prep Papanicolaou smear with manual screening 7 5-15 [facility] Work Phone: Absolute lymphocyte counton 02-16-2022 Lymphocytes Auto (Unsp spec) [#/Vol] 0.83 10*3/uL 0.83-4.51 [facility] Work Phone: [phone] Basophil percentageon 2021 Basophils/100 WBC (Bld) 0.6 % 0-1 [facility] Work Phone: Eosinophils/100 WBC (Bld) 0.0 % 0-5 [facility] Work Phone: Neutrophils (Bld) [#/Vol] 2.4 10*3/uL 2.0-7.7 [facility] Work Phone: Neutrophils/100 WBC (Bld) 65.0 % 47-70 [facility] Work Phone: WBC (Bld) [#/Vol] 3.6 10*3/uL 4.4-11.0 [facility] Work Phone: [phone] Blood erythrocytes count (nu mber/volume)on 02-16-2022 RBC (Bld) [#/Vol] 4.61 10*6/uL 4.2-5.4 [facility] Work Phone: Blood hemoglobin measurement (mass/volume)on 02-16-2022 Hemoglobin (Bld) [Mass/Vol] 12.9 g/dL 12.0-15.0 [facility] Work Phone: Blood lymphocytes/100 leukoc yteson 02-16-2022 Lymphocytes/100 WBC (Bld) 23.0 % 19-41 [facility] Work Phone: Blood manual differential co mment interpretation (narrative result)on 02-16-2022 Manual differential comment Clifford (Bld) [Interp] See comment [facility] Work Phone: Comment on above: THROMBOCYTOPENIA NOT ED Blood monocytes/100 leukocyt eson 02-16-2022 Monocytes/100 WBC (Bld) 10.8 % 0-10 [facility] Work Phone: Blood platelet mean volumeon 02-16-2022 Platelet mean volume (Bld) [Entitic vol] 10.6 fL 6.2-12.0 [facility] Work Phone: Determination of erythrocyte mean corpuscular volume (MCV)on 02-16-2022 MCV (RBC) [Entitic vol] 88.5 fL 81-99 [facility] Work Phone: Hematocrit Auto (Bld) [Volum e fraction]on 02-16-2022 Hematocrit (Bld) [Volume fraction] 40.8 % 37-47 [facility] Work Phone: Laboratory - Hematology and Cell countson 02-16-2022 Erythrocyte distribution width (RBC) [Entitic vol] 50.3 fL 35.1-43.9 [facility] Work Phone: Erythrocyte distribution width (RBC) [Ratio] 15.8 % 11.6-14.6 [facility] Work Phone: Immature granulocytes/100 WBC (Bld) 0.600 % 0.0-0.9 [facility] Work Phone: Comment on above: IG% - Immature Granu locytes (promyelocytes, myelocytes and metamyelocytes) > 1% indicates that a LEFT SHIFT is Present. MCH (RBC) [Entitic mass] 28.0 pg 27.0-32.0 [facility] Work Phone: Nucleated RBC/100 WBC (Bld) [Ratio] 0 % 0-5 [facility] Work Phone: MCHC Auto (RBC) [Mass/Vol]on 02-16-2022 MCHC (RBC) [Mass/Vol] 31.6 g/dL 32-36 [facility] Work Phone: Platelets bldon 02-16-2022 Platelets (Bld) [#/Vol] 80 10*3/uL 150-450 [facility] Work Phone: Basophil percentageon 2021 Bilirubin [Mass/Vol] 0.80 mg/dL 0.20-1.00 [facility] Work Phone: Comment on above: For patients on eltr ombopag therapy, use of Dimension Malcolm TBIL is not recommended. Chloride [Moles/Vol] 102 mmol/L 98-107 [facility] Work Phone: Cholesterol [Mass/Vol] 148 mg/dL <200 [facility] Work Phone: Comment on above: <200 mg/dL Desirable 200-240 mg/dL Borderline >240 mg/dL High Risk Glucose [Mass/Vol] 131 mg/dL 74-106 [facility] Work Phone: Comment on above: Fasting Glucose resu lt greater than or equal to 126 mg/dL suggests DIABETES MELLITUS per A.D.A. criteria. Potassium [Moles/Vol] 3.9 mmol/L 3.5-5.1 [facility] Work Phone: Protein [Mass/Vol] 8.2 g/dL 6.4-8.2 [facility] Work Phone: Sodium [Moles/Vol] 136 mmol/L 136-145 [facility] Work Phone: Triglyceride [Mass/Vol] 299 mg/dL <199 [facility] Work Phone: Comment on above: The drugs N-Acetylcy steine and Metamizole may falsely depress this assay.Serum Triglycerides Reference Interval Normal <150 mg/dL Borderline high 150 - 199 mg/dL High 200 - 499 mg/dL Very High > or = 500 mg/dL Direct bilirubinon 2 Bilirubin.direct [Mass/Vol] 0.23 mg/dL 0.00-0.30 [facility] Work Phone: Laboratory - Chemistry and C hemistry - challengeon 11-07-2021 ALP [Catalytic activity/Vol] 131 U/L 45-117 [facility] Work Phone: ALT [Catalytic activity/Vol] 53 U/L 13-56 [facility] Work Phone: CO2 [Moles/Vol] 30.0 mmol/L 21.0-32.0 [facility] Work Phone: Globulin (S) [Mass/Vol] 4.7 g/dL 2.2-4.2 [facility] Work Phone: Urea nitrogen/Creatinine [Mass ratio] 15.8 mg/mg 10-20 [facility] Work Phone: No Panel Informationon 11-07 Estimated GFR (MDRD) Amer 64 mL/min >60 [facility] Work Phone: Comment on above: GFR Calc Estimated GFR (MDRD) Non-Af Amer 53 mL/min >60 [facility] Work Phone: Comment on above: Non- GFR Calc Urine Microalbumin/Creatin ine Ratio 515.5 mg/g CRE <30 [facility] Work Phone: Serum or plasma albumin kenna urement (mass/volume)on 11-07-2021 Albumin [Mass/Vol] 3.5 g/dL 3.2-5.0 [facility] Work Phone: Serum or plasma calcium kenna urement (mass/volume)on 11-07-2021 Calcium [Mass/Vol] 9.7 mg/dL 8.5-10.1 [facility] Work Phone: Serum or plasma cholesterol in HDL measurement (mass/volume)on 11-07-2021 Cholesterol in HDL [Mass/Vol] 39 mg/dL >40 [facility] Work Phone: Comment on above: The drugs N-Acetylcy steine and Metamizole may falsely depress this assay. Reference Range HDL <40 mg/dL Low HDL Cholesterol HDL >or= 60 mg/dL High HDL Cholesterol Serum or plasma cholesterol in VLDL measurement (mass/volume)on 11-07-2021 Cholesterol in VLDL [Mass/Vol] 60 mg/dL 5-40 [facility] Work Phone: Serum or plasma creatinine m easurement (mass/volume)on 11-07-2021 Creatinine [Mass/Vol] 1.14 mg/dL 0.55-1.02 [facility] Work Phone: Comment on above: The validity of the calculated GFR & GFRAA in patients over 70 years has not been determined. Clinical correlation is essential. Serum or plasma low density lipoprotein (LDL) cholesterol measurement (mass/volume)on 11-07-2021 Cholesterol in LDL [Mass/Vol] 49 mg/dL 0-130 [facility] Work Phone: Serum or plasma urea nitroge n measurement (mass/volume)on 11-07-2021 Urea nitrogen [Mass/Vol] 18 mg/dL 7-18 [facility] Work Phone: Thin prep Papanicolaou smear with manual screeningon 11-07-2021 Thin prep Papanicolaou smear with manual screening 33 U/L 15-37 [facility] Work Phone: Thin prep Papanicolaou smear with manual screening 4 5-15 [facility] Work Phone: Thin prep Papanicolaou smear with manual screening 199.0 mg/L NO RANGE EST. [facility] Work Phone: Urine creatinine measurement (mass/volume)on 11-07-2021 Creatinine (U) [Mass/Vol] 38.60 mg/dL NO RANGE EST. [facility] Work Phone: CBCon 06-14-2020 Erythrocyte distribution width (RBC) [Ratio] 16.7 % High 11.5 - 14.5 % [place] Hematocrit (Bld) [Volume fraction] 40.4 % 35 - 47 % [place] Hemoglobin (Bld) [Mass/Vol] 13.3 g/dL 11.7 - 16 g/dL [place] Interpretation and review of laboratory results Abnormal [place] MCH (RBC) [Entitic mass] 30.0 pg 26 - 34 pg [place] MCHC (RBC) [Mass/Vol] 32.9 % 32 - 36 % [place] MCV (RBC) [Entitic vol] 91.2 fL 79 - 98 fL [place] Platelet mean volume (Bld) [Entitic vol] 8.6 fL 7.4 - 10.4 fL [place] Platelets (Bld) [#/Vol] 88 10*3/uL Low 140 - 440 10*3/uL [place] RBC (Bld) [#/Vol] 4.43 10*6/uL 3.8 - 5.2 10*6/uL [place] WBC (Bld) [#/Vol] 5.8 10*3/uL 3.6 - 10.7 10*3/uL [place] Test Performed by [facility], [address] [place] [address]. [address] CR Chest PA/LATon 06-14-2020 CR Chest PA/LAT Patient Name: MELANIE FREY Diagnostic Radiology Exam Date/Time 06/14/2020 09:36:43 EST Exam CR Chest PA/LAT Ordering Physician JANNA RAMOS KRISTINA Accession Number [id number] CPT4 Codes 65503 () Reason For Exam Chest pain on [...] Transcribed Date and Time: 06/14/2020 9:53 Normal [facility] D-Dimer, Innovanceon 020 D-Dimer, Innovance < 0.19 Normal <0.19-0.50 [facility] Comment on above: Result Comment: Inno aldridge D-Dimer values of <0.50 mg/L FEU can be used in combination with a pre-test probability model (e.g. Well's) to exclude pulmonary embolism (PE) disease, as well as an aid in the diagnosis of deep vein thrombosis (DVT). Performed By: #### H ALEXANDER GOMEZ ####[facility] [place] [address] D-Dimer, Quantitativeon D-Dimer, Quant <0.19 <0.19 - 0.50 mg/L [place] Comment on above: Innovance D-Dimer va lues of <0.50 mg/L FEU can be used in combination with a pre-test probability model (e.g. Well's) to exclude pulmonary embolism (PE) disease, as well as an aid in the diagnosis of deep vein thrombosis (DVT). Test Performed by [facility], [address] [place], [place] [address] [place] [address] Hemogramon 06-14-2020 Erythrocyte distribution width (RBC) [Ratio] 16.7 % High 11.5-14.5 [facility] Comment on above: Performed By: #### H ALEXANDER GOMEZ ####[facility] [place] [address] Hematocrit (Bld) [Volume fraction] 40.4 % Normal 35.0-47.0 [facility] Comment on above: Performed By: #### H ALEXANDER GOMEZ ####[facility] [place] [address] Hemoglobin (Bld) [Mass/Vol] 13.3 g/dL Normal 11.7-16.0 [facility] Comment on above: Performed By: #### H ALEXANDER GOMEZ ####[facility] [place] [address] MCH (RBC) [Entitic mass] 30.0 pg Normal 26.0-34.0 [facility] Comment on above: Performed By: #### H EMOG, DDI2 ####[facility] [place] [address] MCHC (RBC) [Mass/Vol] 32.9 % Normal 32.0-36.0 [facility] Comment on above: Performed By: #### H EMOG, DDI2 ####[facility] [place] [address] MCV (RBC) [Entitic vol] 91.2 fL Normal 79.0-98.0 [facility] Comment on above: Performed By: #### H EMOG, DDI2 ####[facility] [place] [address] Platelet mean volume (Bld) [Entitic vol] 8.6 fL Normal 7.4-10.4 [facility] Comment on above: Performed By: #### H EMOG, DDI2 ####[facility] [place] [address] Platelets (Bld) [#/Vol] 88 10*3/uL Low 140-440 [facility] Comment on above: Performed By: #### H EMOG, DDI2 ####[facility] [place] [address] RBC (Bld) [#/Vol] 4.43 10*6/uL Normal 3.80-5.20 [facility] Comment on above: Performed By: #### H EMOG, DDI2 ####[facility] [place] [address] WBC (Bld) [#/Vol] 5.8 10*3/uL Normal 3.6-10.7 [facility] Comment on above: Performed By: #### H EMOG, DDI2 ####[facility] [place] [address] XR CHEST (2 VW)on 06-14-2020 [facility] 9:53 AM EST Patient Name: MELANIE RESTREPO ---Diagnostic Radiology--- Exam Date/Time 06/14/2020 09:36:43 EST Exam CR Chest PA/LAT Ordering Physician JANNA RAMOS KRISTINA Accession Number [id number] CPT4 Codes 71061 () Reason For Exam Chest pain on [...] DIANE Transcribed Date and Time: 06/14/2020 9:53 [place] Patient Name: MELANIE FREY ---Diagnostic Radiology--- Exam Date/Time 06/14/2020 09:36:43 EST Exam CR Chest PA/LAT Ordering Physician JANNA RAMOS KRISTINA Accession Number [id number] CPT4 Codes 76909 () Reason For Exam Chest pain on [...] DIANE Transcribed Date and Time: 06/14/2020 9:[address] [facility], [place] Creatinine, Random Urineon Creatinine (U) [Mass/Vol] 38.7 mg/dL No Range [facility], [place] Creatinine, Ur Randomon 04-11 Creatinine, Ur Random 38.7 mg/dL Normal No Range [facility] Comment on above: Performed By: #### T PUR, CRTUR, RENL3, URIC3 ####[facility] [place] [address] Otheron 04-20-2020 Test Performed by [facility], [address] , [address] Test Performed by [facility], [address] , [address] Protein, Ur Randomon 020 Protein [Mass/Vol] 107 mg/dL High No Range [facility] Comment on above: Performed By: #### T PUR, CRTUR, RENL3, URIC3 ####[facility] [place] [address] Protein, urine, randomon Interpretation and review of laboratory results Abnormal [place] Protein (U) [Mass/Vol] 107 mg/dL High No Range [place] Renal Functionon 04-20-2020 Calcium [Mass/Vol] 9.6 mg/dL Normal 8.4-10.4 [facility] Comment on above: Performed By: #### T PUR, CRTUR, RENL3, URIC3 ####[facility] [place] [address] Phosphate [Mass/Vol] 3.5 mg/dL Normal 2.5-4.5 [facility] Comment on above: Performed By: #### T PUR, CRTUR, RENL3, URIC3 ####[facility] [place] [address] Anion gap [Moles/Vol] 9 Normal [facility] Comment on above: Performed By: #### T PUR, CRTUR, RENL3, URIC3 ####[address] [place] [address] CO2 [Moles/Vol] 32 mmol/L High 22-30 [facility] Comment on above: Performed By: #### T PUR, CRTUR, RENL3, URIC3 ####[facility] [place] [address] Creatinine [Mass/Vol] 0.95 mg/dL Normal 0.52-1.25 [facility] Comment on above: Performed By: #### T PUR, CRTUR, RENL3, URIC3 ####[facility] [place] [address] GFR/1.73 sq M predicted among blacks MDRD (S/P/Bld) [Vol rate/Area] 79.3 mL/min/{1.73_m2} Normal >60 [facility] Comment on above: Performed By: #### T PUR, CRTUR, RENL3, URIC3 ####[address] [place] [address] GFR/1.73 sq M predicted among non-blacks MDRD (S/P/Bld) [Vol rate/Area] 68.4 mL/min/{1.73_m2} Normal >60 [facility] Comment on above: Result Comment: KDIG O [...] By: #### T PUR, CRTUR, RENL3, URIC3 ####[address] [place] [address] Glucose [Mass/Vol] 374 mg/dL High 70-100 [facility] Comment on above: Performed By: #### T PUR, CRTUR, RENL3, URIC3 ####[facility] [place] [address] Urea nitrogen [Mass/Vol] 21 mg/dL High 7-20 [facility] Comment on above: Performed By: #### T PUR, CRTUR, RENL3, URIC3 ####[facility] [place] [address] Albumin [Mass/Vol] 4.1 g/dL Normal 3.5-5.0 [facility] Comment on above: Performed By: #### T PUR, CRTUR, RENL3, URIC3 ####[facility] [place] [address] Chloride [Moles/Vol] 94 mmol/L Low 98-107 [facility] Comment on above: Performed By: #### T PUR, CRTUR, RENL3, URIC3 ####[facility] [place] [address] Potassium [Moles/Vol] 4.0 mmol/L Normal 3.5-5.1 [facility] Comment on above: Performed By: #### T PUR, CRTUR, RENL3, URIC3 ####[facility] [place] [address] Sodium [Moles/Vol] 134 mmol/L Low 135-145 [facility] Comment on above: Performed By: #### T PUR, CRTUR, RENL3, URIC3 ####[facility] [place] [address] Renal Function Panelon 04-20 Albumin [Mass/Vol] 4.1 g/dL 3.5 - 5 g/dL [place] Anion gap [Moles/Vol] 9 mmol/L [place] Calcium [Mass/Vol] 9.6 mg/dL 8.4 - 10. 4 mg/dL [place] Chloride [Moles/Vol] 94 mmol/L Low 98 - 10 7 mmol/L [place] CO2 [Moles/Vol] 32 mmol/L High 22 - 30 mmol/L [place] Creatinine [Mass/Vol] 0.95 mg/dL 0.52 - 1.25 mg/dL [place] EGFR IF NonAfrican [place] 68.4 mL/min >60 [place] Comment on above: KDIGO guidelines pro [...] MDRD (S/P/Bld) [Vol rate/Area] 79.3 mL/min/{1.73_m2} >60 [place] Glucose [Mass/Vol] 374 mg/dL High 70 - 100 mg/dL [place] Interpretation and review of laboratory results Abnormal [place] Phosphate [Mass/Vol] 3.5 mg/dL 2.5 - 4 .5 mg/dL [place] Potassium [Moles/Vol] 4.0 mmol/L 3.5 - 5.1 mmol/L [place] Sodium [Moles/Vol] 134 mmol/L Low 135 - 145 mmol/L [place] Urea nitrogen [Mass/Vol] 21 mg/dL High 7 - 20 mg/dL [place] Uric Acidon 04-20-2020 Urate [Mass/Vol] 5.1 mg/dL Normal 2.5-8.5 [facility] Comment on above: Performed By: #### T PUR, CRTUR, RENL3, URIC3 ####[facility] [place] [address] Urate [Mass/Vol] 5.1 mg/dL 2.5 - 8.5 mg/dL [facility], [place] Basic Metabolic Panelon 09- Anion gap [Moles/Vol] 10 Normal [facility] Comment on above: Performed By: #### H EMDF, BMP3, TROPN #### [facility] [address] [place] [address] Calcium [Mass/Vol] 9.9 mg/dL Normal 8.4-10.4 [facility] Comment on above: Performed By: #### H EMDF, BMP3, TROPN #### [facility] [address] [place] [address] CO2 [Moles/Vol] 28 mmol/L Normal 22-30 [facility] Comment on above: Performed By: #### H EMDF, BMP3, TROPN #### [facility] [address] [place] [address] Creatinine [Mass/Vol] 0.90 mg/dL Normal 0.52-1.25 [facility] Comment on above: Performed By: #### H EMDF, BMP3, TROPN #### [facility] [address] [place] [address] GFR/1.73 sq M predicted among blacks MDRD (S/P/Bld) [Vol rate/Area] 84.7 mL/min/{1.73_m2} Normal >60 [facility] Comment on above: Performed By: #### H EMDF, BMP3, TROPN #### [facility] [employer] [facility] [address] [place] [address] GFR/1.73 sq M predicted among non-blacks MDRD (S/P/Bld) [Vol rate/Area] 73.1 mL/min/{1.73_m2} Normal >60 [facility] Comment on above: Result Comment: KDIG O [...] By: #### H EMDF, BMP3, TROPN #### [facility] [address] [place] [address] Glucose [Mass/Vol] 355 mg/dL High 70-100 [facility] Comment on above: Performed By: #### H EMDF, BMP3, TROPN #### [facility] [address] [place] [address] Urea nitrogen [Mass/Vol] 21 mg/dL High 7-20 [facility] Comment on above: Performed By: #### H EMDF, BMP3, TROPN #### [facility] [address] [place] [address] Chloride [Moles/Vol] 94 mmol/L Low 98-107 [facility] Comment on above: Performed By: #### H EMDF, BMP3, TROPN #### [facility] [address] [place] [address] Potassium [Moles/Vol] 4.0 mmol/L Normal 3.5-5.1 [facility] Comment on above: Performed By: #### H EMDF, BMP3, TROPN #### [facility] [address] [place] [address] Sodium [Moles/Vol] 133 mmol/L Low 135-145 [facility] Comment on above: Performed By: #### H EMDF, BMP3, TROPN #### [facility] [address] [place] [place] [address] Anion gap [Moles/Vol] 10 mmol/L [facility], [place] Calcium [Mass/Vol] 9.9 mg/dL 8.4 - 10. 4 mg/dL [place] Chloride [Moles/Vol] 94 mmol/L Low 98 - 10 7 mmol/L [place] CO2 [Moles/Vol] 28 mmol/L 22 - 30 mmol/L [place] Creatinine [Mass/Vol] 0.9 mg/dL 0.52 - 1.25 mg/dL [place] EGFR IF NonAfrican [place] 73.1 mL/min >60 [place] Comment on above: KDIGO guidelines pro [...] MDRD (S/P/Bld) [Vol rate/Area] 84.7 mL/min/{1.73_m2} >60 [place] Glucose [Mass/Vol] 355 mg/dL High 70 - 100 mg/dL [place] Interpretation and review of laboratory results Abnormal [place] Potassium [Moles/Vol] 4.0 mmol/L 3.5 - 5.1 mmol/L [place] Sodium [Moles/Vol] 133 mmol/L Low 135 - 145 mmol/L [place] Urea nitrogen [Mass/Vol] 21 mg/dL High 7 - 20 mg/dL [place] Test Performed by [facility], [address], [place], [place] [address] [place] [address] CR Chest Portableon 04-04-20 20 CR Chest Portable Patient Name: MELANIE FREY Diagnostic Radiology Exam Date/Time 04/04/2020 16:51:47 EDT Exam CR Chest Portable Ordering Physician [id number] BRUNA REINOSO Accession Number [id number] CPT4 Codes 22296 () Reason For Exam Chest pain Report [...] Transcribed Date and Time: 04/04/2020 4:51 Normal [facility] ED Provider Noteon 0 ED Provider Note Emergency Department Encounter [facility] ED Patient: Melanie Restrepo : 1965 [...] SOB BUT NOT ANY WORSE THAN NORMAL [place] (Location/Symptom, Timing/Onset, Context/Setting, Quality, Duration, Modifying Factors, [...] otherwise acutely negative except as in the [place]. Past History Past Medical History: Diagnosis Date [...] on phone: None Gets together: None Attends gnosticism service: None Active member of club or [...] Lancets 30G MISC 4 TIMES DAILY Starting 10/18/2017, Disp-200 each, R-8, Print Handicap Rosa Elena [facility] Starting Wed07/20/2017, Disp-1 each, R-0, PrintDuration: 5 [...] eGFR 84.7 >60 mL/min EGFR IF NonAfrican Nigerian 73.1 >60 mL/min Calcium 9.9 8.4 - [...] # 1.2 1.0 - 4.3 10*3/uL Absolute [place] # 0.4 0.0 - 0.8 10*3/uL Absolute [...] EDT Exam CR Chest Portable Ordering Physician [id number] DUENAS Accession Number [id number] CPT4 Codes 89901 () Reason For Exam Chest pain Report [...] aspirin chewable tablet 243 mg ONCE Last SEP action: Given - by [...] [employer] HERMES Carvajal 04/05/20 0102 [facility] ED Provider Note Emergency Department Encounter [facility] ED Patient: Melanie Restrepo : 1965 [...] patient home and follow-up as an outpatient. Melanie Restrepo and myself have engaged in [...] [employer] Khris Bright MD 04/04/20 1845 Normal [facility] Hemogram (CBC) w/Auto Diffon 04-04-2020 Absolute Baso # 0.0 10*3/uL 0 - 0.2 10*3/uL [facility], [place] Absolute Neut # 3.0 10*3/uL 1.8 - 7 10*3/uL [place] Basophils/100 WBC (Bld) 0.1 % 0 - 2 % [place] Eosinophils (Bld) [#/Vol] 0.0 10*3/uL 0 - 0.5 10*3/uL [place] Eosinophils/100 WBC (Bld) 0.0 % Low 1 - 6 % [place] Erythrocyte distribution width (RBC) [Ratio] 16.0 % High 11.5 - 14.5 % [place] Granulocytes/100 WBC (Bld) 65.0 % 40 - 80 % [place] Hematocrit (Bld) [Volume fraction] 38.2 % 35 - 47 % [place] Hemoglobin (Bld) [Mass/Vol] 12.5 g/dL 11.7 - 16 g/dL [place] Interpretation and review of laboratory results Abnormal [place] Lymphocytes (Bld) [#/Vol] 1.2 10*3/uL 1 - 4.3 10*3/uL [place] Lymphocytes/100 WBC (Bld) 27.1 % 20 - 40 % [place] MCH (RBC) [Entitic mass] 28.7 pg 26 - 34 pg [place] MCHC (RBC) [Mass/Vol] 32.8 % 32 - 36 % [place] MCV (RBC) [Entitic vol] 87.7 fL 79 - 98 fL [place] Monocytes (Bld) [#/Vol] 0.4 10*3/uL 0 - 0.8 10*3/uL [place] Monocytes/100 WBC (Bld) 7.8 % 2 - 10 % [place] Platelet mean volume (Bld) [Entitic vol] 9.0 fL 7.4 - 10.4 fL [place] Platelets (Bld) [#/Vol] 102 10*3/uL Low 140 - 440 10*3/uL [place] RBC (Bld) [#/Vol] 4.35 10*6/uL 3.8 - 5.2 10*6/uL [place] WBC (Bld) [#/Vol] 4.6 10*3/uL 3.6 - 10.7 10*3/uL [place] Test Performed by [facility], [address], [place], [place] [address] [facility] [place] Hemogram w/ Autodiffon 04-04 Abs Baso Cnt 0.0 10*3/uL Normal 0.0-0.2 [facility] Comment on above: Performed By: #### H EMDF, BMP3, TROPN #### [facility] [address] [place] [address] Abs Neutrophile Cnt 3.0 10*3/uL Normal 1.8-7.0 [facility] Comment on above: Performed By: #### H EMDF, BMP3, TROPN #### [facility] [address] [place] [address] Basophils/100 WBC (Bld) 0.1 % Normal 0.0-2.0 [facility] Comment on above: Performed By: #### H EMDF, BMP3, TROPN #### [facility] [address] [place] [address] Eosinophils (Bld) [#/Vol] 0.0 10*3/uL Normal 0.0-0.5 [facility] Comment on above: Performed By: #### H EMDF, BMP3, TROPN #### [facility] [address] [place] [address] Eosinophils/100 WBC (Bld) 0.0 % Low 1.0-6.0 [facility] Comment on above: Performed By: #### H EMDF, BMP3, TROPN #### [facility] [address] [place] [address] Erythrocyte distribution width (RBC) [Ratio] 16.0 % High 11.5-14.5 [facility] Comment on above: Performed By: #### H EMDF, BMP3, TROPN #### [facility] [address] [place] [address] Granulocytes/100 WBC (Bld) 65.0 % Normal 40.0-80.0 [facility] Comment on above: Performed By: #### H EMDF, BMP3, TROPN #### [facility] [address] [place] [address] Hematocrit (Bld) [Volume fraction] 38.2 % Normal 35.0-47.0 [facility] Comment on above: Performed By: #### H EMDF, BMP3, TROPN #### [facility] [address] [place] [place] [address] Hemoglobin (Bld) [Mass/Vol] 12.5 g/dL Normal 11.7-16.0 [facility] Comment on above: Performed By: #### H EMDF, BMP3, TROPN #### [facility] [address] [place] [address] Lymphocytes (Bld) [#/Vol] 1.2 10*3/uL Normal 1.0-4.3 [facility] Comment on above: Performed By: #### H EMDF, BMP3, TROPN #### [facility] [address] [place] [address] Lymphocytes/100 WBC (Bld) 27.1 % Normal 20.0-40.0 [facility] Comment on above: Performed By: #### H EMDF, BMP3, TROPN #### [facility] [address] [place] [address] MCH (RBC) [Entitic mass] 28.7 pg Normal 26.0-34.0 [facility] Comment on above: Performed By: #### H EMDF, BMP3, TROPN #### [facility] [address] [place] [address] MCHC (RBC) [Mass/Vol] 32.8 % Normal 32.0-36.0 [facility] Comment on above: Performed By: #### H EMDF, BMP3, TROPN #### [facility] [address] [place] [address] MCV (RBC) [Entitic vol] 87.7 fL Normal 79.0-98.0 [facility] Comment on above: Performed By: #### H EMDF, BMP3, TROPN #### [facility] [address] [place] [address] Monocytes (Bld) [#/Vol] 0.4 10*3/uL Normal 0.0-0.8 [facility] Comment on above: Performed By: #### H EMDF, BMP3, TROPN #### [facility] [address] [place] [address] Monocytes/100 WBC (Bld) 7.8 % Normal 2.0-10.0 [facility] Comment on above: Performed By: #### H EMDF, BMP3, TROPN #### [facility] [address] [place] [address] Platelet mean volume (Bld) [Entitic vol] 9.0 fL Normal 7.4-10.4 [facility] Comment on above: Performed By: #### H EMDF, BMP3, TROPN #### [facility] [address] [place] [address] Platelets (Bld) [#/Vol] 102 10*3/uL Low 140-440 [facility] Comment on above: Performed By: #### H EMDF, BMP3, TROPN #### [facility] [address] [place] [address] RBC (Bld) [#/Vol] 4.35 10*6/uL Normal 3.80-5.20 [facility] Comment on above: Performed By: #### H EMDF, BMP3, TROPN #### [facility] [address] [place] [address] WBC (Bld) [#/Vol] 4.6 10*3/uL Normal 3.6-10.7 [facility] Comment on above: Performed By: #### H EMDF, BMP3, TROPN #### [facility] [address] [place] [address] Troponinon 04-04-2020 Troponin I.cardiac [Mass/Vol] ng/mL 0 - 0.034 ng/mL [place], [place] Comment on above: . Test Performed by [facility], [address] [place] [address] [place], [place] Troponin Ion 04-04-2020 Troponin I.cardiac [Mass/Vol] ng/mL Normal 0.000-0.034 [facility] Comment on above: Result Comment: . Performed By: #### T ROPN ####[facility] [place] [address] Troponin I.cardiac [Mass/Vol] ng/mL Normal 0.000-0.034 [facility] Comment on above: Result Comment: . Performed By: #### H EMDF, BMP3, TROPN #### [facility] [address] [place] [address] Troponin x1on 04-04-2020 Troponin I.cardiac [Mass/Vol] ng/mL 0 - 0.034 ng/mL [place], [place] Comment on above: . Test Performed by [facility], [address], [place] [address] [place], [place] XR CHEST PORTABLEon 04-04-20 20 Patient Name: MELANIE FREY ---Diagnostic Radiology--- Exam Date/Time 04/04/2020 16:51:47 EDT Exam CR Chest Portable Ordering Physician BRUNA MOREIRA Accession Number [id number] CPT4 Codes 03796 () Reason For Exam Chest pain Report [...] NICHOLAS Transcribed Date and Time: 04/04/2020 4:51 [place], [place] Syl[place], [place] Incoming Radiology Results From [facility] - 04/04/2020 4:52 PM EDT Patient Name: MELANIE RESTREPO ---Diagnostic Radiology--- Exam Date/Time 04/04/2020 16:51:47 EDT Exam CR Chest Portable Ordering Physician BRUNA MOREIRA Accession Number [id number] CPT4 Codes 75805 () Reason For Exam Chest pain Report [...] NICHOLAS Transcribed Date and Time: 04/04/2020 4:[address] [facility], [facility] JOVANNY DIGITAL SCREEN MANISH Jones 02-07-2020 Patient Name: MELANIE FREY ---Mammography--- Exam Date/Time 02/07/2020 08:18:15 EDT Exam MG Breast Tomosynthesis BI Scr Ordering Physician MD LILIAM, SEE KOWALSKI Accession Number [id number] CPT4 Codes 03956 (MG Breast Tomosynthesis Scr Bl), 99577 (MG MAMMO 2D SCREENING) Reason For Exam [...] MG breast tomosynthesis bl scr performed at [facility]. April 19, 2017, bilateral MG breast tomosynthesis bl performed at [facility]. February 24, 2016, bilateral screening mammogram performed at [facility]. TISSUE DENSITY: BIRADS B - There are scattered fibroglandular densities. . FINDINGS: No suspicious masses, architectural distortions or suspiciously clustered microcalcifications are identified. There is no evidence of skin thickening or nipple retraction. There are no significant changes when compared with prior studies. Markings on images: BB's = Nipples; skin lesions [place] = Palpable Line = Scar 2D digital [...] 02/07/2020 10:07 am Signed by: MD GALA, [facility] Incoming Radiology Results From [facility] - 02/07/2020 10:37 AM EDT Patient Name: MELANIE RESTREPO ---Mammography--- Exam Date/Time 02/07/2020 08:18:15 EDT Exam MG Breast Tomosynthesis BI Scr Ordering Physician MD LILIAM, SEE KOWALSKI Accession Number [id number] CPT4 Codes 45529 (MG Breast Tomosynthesis Scr Bl), 83202 (MG MAMMO 2D SCREENING) Reason For Exam [...] MG breast tomosynthesis bl scr performed at [facility]. April 19, 2017, bilateral MG breast tomosynthesis bl performed at [facility]. February 24, 2016, bilateral screening mammogram performed at [facility]. TISSUE DENSITY: BIRADS B - There are scattered fibroglandular densities. . FINDINGS: No suspicious masses, architectural distortions or suspiciously clustered microcalcifications are identified. There is no evidence of skin thickening or nipple retraction. There are no significant changes when compared with prior studies. Markings on images: BB's = Nipples; skin lesions [place] = Palpable Line = Scar 2D digital [...] am Signed by: MD GALA, TATUM Pan [place], [place] MG Breast Tomosynthesis Scr Blon 02-07-2020 MG Breast Tomosynthesis Scr Bl Patient Name: MELANIE RESTREPO Mammography Exam Date/Time 02/07/2020 08:18:15 EDT Exam MG Breast Tomosynthesis BI Scr Ordering Physician MD LILIAM, SEE KOWALSKI Accession Number [id number] CPT4 Codes 74021 (MG Breast Tomosynthesis Scr Bl), 25248 (MG MAMMO 2D SCREENING) Reason For Exam [...] MG breast tomosynthesis bl scr performed at [facility]. April 19, 2017, bilateral MG breast tomosynthesis bl performed at [facility]. February 24, 2016, bilateral screening mammogram performed at [facility]. TISSUE DENSITY: BIRADS B - There are scattered fibroglandular densities. . FINDINGS: No suspicious masses, architectural distortions or suspiciously clustered microcalcifications are identified. There is no evidence of skin thickening or nipple retraction. There are no significant changes when compared with prior studies. Markings on images: BB's = Nipples; skin lesions [place] = Palpable Line = Scar 2D digital [...] Time: 02/07/2020 10:07 am Signed by: MD GLAA, TATUM Pan Normal [facility] Uric Acidon 01-23-2020 Urate [Mass/Vol] 4.9 mg/dL Normal 2.5-8.5 [facility] Comment on above: Performed By: #### U RIC3 ####[facility] [employer] [address] [place] [address] Urate [Mass/Vol] 4.9 mg/dL 2.5 - 8.5 mg/dL [employer] Now Test Performed by [facility], [address] , [place], [place] [address] [facility] [place] Creatinine, Random Urineon 0 10-12-2019 Creatinine (U) [Mass/Vol] 112.9 mg/dL No Range [facility], [place] Test Performed by [facility], [address] , [place], [place] [address] [place] [address], [place] Creatinine, Ur Randomon Creatinine, Ur Random 112.9 mg/dL Normal No Range [facility] Comment on above: Performed By: #### T PUR, RENL3, CRTUR #### [facility] [address] [place] [address] Protein, Ur Randomon 020 Protein [Mass/Vol] 292 mg/dL High No Range [facility] Comment on above: Performed By: #### T PUR, RENL3, CRTUR #### [facility] [address] [place] [address] Protein, urine, randomon Interpretation and review of laboratory results Abnormal [place], [place] Protein (U) [Mass/Vol] 292 mg/dL High No Range [place], [place] Test Performed by [facility], [address] , [place], [place] [address] [place] [address] Renal Functionon 10-12-2019 Anion gap [Moles/Vol] 9 Normal [facility] Comment on above: Performed By: #### T PUR, RENL3, CRTUR #### [facility] [address] [place] [address] Calcium [Mass/Vol] 9.6 mg/dL Normal 8.4-10.4 [facility] Comment on above: Performed By: #### T PUR, RENL3, CRTUR #### [facility] [address] [place] [address] CO2 [Moles/Vol] 27 mmol/L Normal 22-30 [facility] Comment on above: Performed By: #### T PUR, RENL3, CRTUR #### [facility] [address] [place] [address] Creatinine [Mass/Vol] 1.05 mg/dL Normal 0.52-1.25 [facility] Comment on above: Performed By: #### T PUR, RENL3, CRTUR #### [facility] [address] [place] [address] GFR/1.73 sq M predicted among blacks MDRD (S/P/Bld) [Vol rate/Area] mL/min/{1.73_m2} Normal >60 [facility] Comment on above: Performed By: #### T PUR, RENL3, CRTUR #### [facility] [address] [place] [address] GFR/1.73 sq M predicted among non-blacks MDRD (S/P/Bld) [Vol rate/Area] 55.0 mL/min/{1.73_m2} Normal >60 [facility] Comment on above: Result Comment: Sour ce- MDRD equation with creatinine calibration to IDMS(NKDEP) eGFR not recommended for drug dose adjustment Performed By: #### T PUR, RENL3, CRTUR #### [facility] [address] [place] [address] Glucose [Mass/Vol] 252 mg/dL High 70-100 [facility] Comment on above: Performed By: #### T PUR, RENL3, CRTUR #### [facility] [address] [place] [address] Phosphate [Mass/Vol] 3.8 mg/dL Normal 2.5-4.5 [facility] Comment on above: Performed By: #### T PUR, RENL3, CRTUR #### [facility] [address] [place] [address] Urea nitrogen [Mass/Vol] 18 mg/dL Normal 7-20 [facility] Comment on above: Performed By: #### T PUR, RENL3, CRTUR #### [facility] [address] [place] [address] Albumin [Mass/Vol] 3.7 g/dL Normal 3.5-5.0 [facility] Comment on above: Performed By: #### T PUR, RENL3, CRTUR #### [facility] [address] [place] [address] Chloride [Moles/Vol] 99 mmol/L Normal 98-107 [facility] Comment on above: Performed By: #### T PUR, RENL3, CRTUR #### [facility] [address] [place] [address] Potassium [Moles/Vol] 4.0 mmol/L Normal 3.5-5.1 [facility] Comment on above: Performed By: #### T BERT EISENBERGL3, CRTUR #### [facility] [address] [place] [address] Sodium [Moles/Vol] 136 mmol/L Normal 135-145 [facility] Comment on above: Performed By: #### T BERT EISENBERGL3, CRTUR #### [facility] [address] [place] [address] Renal Function Panelon 10-11 Albumin [Mass/Vol] 3.7 g/dL 3.5 - 5 g/dL [facility], [place] Comment on above: Test Performed by [facility], [address] , [place], [place] [address] Anion gap [Moles/Vol] 9 mmol/L [place], [place] Comment on above: Test Performed by [facility], [address] , [place], [place] [address] Calcium [Mass/Vol] 9.6 mg/dL 8.4 - 10. 4 mg/dL [place] Comment on above: Test Performed by [facility], [address] , [place], [place] [address] Chloride [Moles/Vol] 99 mmol/L 98 - 10 7 mmol/L [place] Comment on above: Test Performed by [facility], [address] , [place], [place] [address] CO2 [Moles/Vol] 27 mmol/L 22 - 30 mmol/L [place] Comment on above: Test Performed by [facility], [address] , [place], [place] [address] Creatinine [Mass/Vol] 1.05 mg/dL 0.52 - 1.25 mg/dL [place] Comment on above: Test Performed by [facility], [address] , [place], [place] [address] EGFR IF NonAfrican Nigerian 55.0 mL/min >60 [place] Comment on above: Test Performed by [facility], [address] , [place] [address] Source- MDRD equation with creatinine calibration to IDMS(NKDEP) eGFR not recommended for drug dose adjustment GFR/1.73 sq M predicted among blacks MDRD (S/P/Bld) [Vol rate/Area] mL/min/{1.73_m2} >60 mL/min [place] Comment on above: Test Performed by [facility], [address] , [place] [address] Glucose [Mass/Vol] 252 mg/dL High 70 - 100 mg/dL [place] Comment on above: Test Performed by [facility], [address] , [place] [address] Interpretation and review of laboratory results Abnormal [place] Phosphate [Mass/Vol] 3.8 mg/dL 2.5 - 4 .5 mg/dL [place] Comment on above: Test Performed by [facility], [address] , [place] [address] Potassium [Moles/Vol] 4.0 mmol/L 3.5 - 5.1 mmol/L [place] Comment on above: Test Performed by [facility], [address] , [place] [address] Sodium [Moles/Vol] 136 mmol/L 135 - 145 mmol/L [place] Urea nitrogen [Mass/Vol] 18 mg/dL 7 - 20 mg/dL [place] Comment on above: Test Performed by [facility], [address] , [place] [address] Test Performed by [facility], [address] , [address] Nav 09-24-2019 CNPN Telephone ([facility]) -- MELANIE RESTREPO ([id number]) 1965 F Date Time Provider Department 09/24/19 DANI (PHARMACIST)RODNEY During your visit today, we recorded the following information about you: SHER CARDENAS 09/24/2019 3:40 PM Signed Negative COVID-19 Testing COVID-19 Test Results Contacted patient on behalf of the [facility] Emergency Department to communicate updated results from a recent visit. Verified patient with two identifiers and updated on negative COVID-19 test results. Patient instructed that quarantine can be discontinued and that patient should contact employer to discuss return to work. Patient advised that negative testing results will be available for viewing in [employer]. If unable to access or enroll in [employer], patient instructed that results may be obtained by contacting a primary care physician or contacting the [facility] at and requesting to speak with Medical Records. Patient instructed to seek emergency medical care and call 911 if any difficulty breathing, chest pain, or if any other significant health concerns. Patient instructed to contact the primary care physician or schedule a [facility] Express Care Online or return to [...] are not readily available, use alcohol-based hand operation manager that contains at least 60% alcohol; cover [...] COVID-19 Resources Encouraged patient to contact the [facility] Hotline for additional COVID-19 questions ([phone] or ) which is open daily to [...] Encounter Status:Closed by DANI (PHARMACIST)RODNEY on 09/24/19 [facility] 09-23-2019 [facility] HNO ID: [id number] Author: SANGEETA Bowers (Ct) Service: ? Author Type: Clinical Precision Structural Metal Fitter Type: Allied Health Filed: 09/23/2019 2:58 PM [...] SANGEETA Bowers September 23, 2019 2:57 PM [facility] 09-23-2019 [facility] Office Visit ([place] ) -- MELANIE RESTREPO ([id number]) 1965 F Date Time Provider Department 09/23/19 12:30 PM ANNE SPENCER) GAETANO During your visit today, we recorded the [...] x 2-3 days. 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 PAST MEDICAL HISTORY Diagnosis Date - Arthritis - DM type 2 (diabetes mellitus, type 2) ([facility]LY [facility]) - Dyslipidemia - HTN (hypertension) - Obesity [...] with long-term current use of insulin (HCC) - ICD9: 250.00, V58.67, ICD10: E11.9, Z79.4 5. Chronic obstructive pulmonary disease, unspecified COPD type (HCC) - ICD9: 496, ICD10: J44.9 6. History of pneumonia BP 135/71 (BP Site: Right Arm, BP Position: Sitting, BP Cuff Size: Large Adult) Pulse 76 Temp 36.8 ?C (98.2 ?F) Resp 17 Ht 165.1 cm (5' 5) Wt (!) 138.3 kg (304 lb 12.8 oz) SpO2 96% BMI 50.72 kg/m? Referred to the [facility] ER for further eval Needs further work up that cannot be provided in Exp Care (CXR, nebulizer, etc). Works in a [employer]- Needs swabbed for ALL viral Needs r/o pneumonia Follow up as needed. Barriers to learning: none. The patient verbalizes understanding and is in agreement with plan of care. [facility] ER called and report given. Patient wearing mask and driving self. CARMEN Bay PA-C, PA 09/23/2019 12:56 PM Signed ASSESSMENT/PLAN: 1. Cough - 2. Chills - 3. Dyspnea, unspecified type - 4. Type 2 diabetes mellitus without complication, with long-term current use of insulin 5. Chronic obstructive pulmonary disease, unspecified COPD type (HCC) 6. 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 History of pneumonia Referred to the [facility] ER for further eval Needs further work up that cannot be provided in Exp Care Work in a [employer]- May need swabbed for viral Needs r/o pneumonia Follow up as needed. Barriers to learning: none. The patient verbalizes understanding and is in agreement with plan of care. Anne Spencer PA-C Encounter Status:Closed by ANNE SPENCER on 09/23/19 Normal [facility] Coronavirus 2019on 0 COVID 19 Result ACCIDENT EXAMINER SARS CoV 2 (Agent of COVID 19) Not Detected by PCR. Normal SARS CoV 2 (Agent of COVID 19) Not Detected by PCR. [facility] Comment on above: Result Comment: This test was developed and its performance characteristics determined by [facility]'s [facility] [place]. This test has been authorized by FDA [...] 2019. Performed By: #### C OVID #### [facility] [address] [place] [address] COVID 19 Result OP Refer to result for COVID 19 when completed. [facility] Comment on above: Performed By: #### C OVID #### [facility] [address] [place] [address] COVID 19 Source ACCIDENT EXAMINER Nasopharyngeal Swab [facility] Comment on above: Performed By: #### C OVID #### [facility] [address] [facility] [address] [place] [address] COVID 19 Source OP Throat Swab [facility] Comment on above: Performed By: #### C OVID #### [facility] [address] [facility] [address] [place] [address] ED NOTEon 09-23-2019 ED NOTE HNO ID: [id number] Author: Casandra JonesRn) ANTOINE Guerrero Service: ? Author Type: Registered Nurse Type: ED Notes Filed: 09/23/2019 3:45 PM Note Text: Reviewed DC instructions with patient. No additional questions. Patient ambulated out on her own. [facility] ED NOTE HNO ID: [id number] Author: Wilma JonesRn) ANTOINE Bingham Service: ? Author Type: Registered Nurse Type: ED Notes Filed: 09/23/2019 1:38 PM Note Text: Pt to ED c/o sore throat on Wednesday, now with cough, chills, SOB and BOND. Seen at [facility], sent for r/o pneumonia and may need viral swabs. [facility] ED PROV NOTEon 09-23-2019 ED PROV NOTE HNO ID: [id number] Author: Ashley Holden MD Service: ? Author [...] ago. 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 She was seen at [facility] who sent her here for nebulizer [...] Result Value Ref Range COVID 19 Source ACCIDENT EXAMINER Nasopharyngeal Swab COVID 19 Source OP Throat Swab COVID 19 Result OP Refer to result for COVID 19 when completed. XR CHEST 2V FRONTAL/LAT Final Result IMPRESSION: Stable chest. No acute cardiopulmonary process. Lock Expert: HUGO Transcribe Date/Time: Sep 23 2019 3:00P [...] stable SIGNATURE: MD Ashley Izquierdo MD 09/23/19 [facility]6 [facility] PROGRESSon 09-23-2019 PROGRESS HNO ID: [id number] Author: Anne Linder) HERMES Spencer Service: ? Author Type: Physician Transition Rn Type: Progress Notes Filed: 09/23/2019 1:33 PM Note Text: 09/23/2019 Patient presents with: Cough Sore Throat Triage: 54 yo female with DM II, COPD, and h/o inpatient pneumonia that is here for cough, dyspnea, sore throat, and body aches/chills x 2-3 days. 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 PAST MEDICAL HISTORY Diagnosis Date - Arthritis [...] with long-term current use of insulin (HCC) - ICD9: 250.00, V58.67, ICD10: E11.9, Z79.4 5. Chronic obstructive pulmonary disease, unspecified COPD type (FORMERLY [facility]) - ICD9: 496, ICD10: J44.9 6. History of pneumonia BP 135/71 (BP Site: Right Arm, BP Position: Sitting, BP Cuff Size: Large Adult) Pulse 76 Temp 36.8 ?C (98.2 ?F) Resp 17 Ht 165.1 cm (5' 5) Wt (!) 138.3 kg (304 lb 12.8 oz) SpO2 96% BMI 50.72 kg/m? Referred to the [facility] ER for further eval Needs further work up that cannot be provided in Exp [facility] (CXR, nebulizer, etc). Works in a [employer]- Needs swabbed for ALL viral Needs r/o pneumonia Follow up as needed. Barriers to learning: none. The patient verbalizes understanding and is in agreement with plan of care. [facility] ER called and report given. Patient wearing mask and driving self. Anne Spencer PA-C Normal [facility] Rapid PCR FLU/RSVon 09-23-19 20 Influenza A PCR Negative [facility] Comment on above: Performed By: #### F LRSV #### [facility] [address] Influenza B PCR Negative [facility] Comment on above: Performed By: #### F LRSV #### [facility] [address] RSV PCR Negative [facility] Comment on above: Performed By: #### F LRSV #### [facility] [address] Specimen source Nom (Unsp spec) Nasopharyngeal Swab Normal [facility] Comment on above: Performed By: #### F LRSV #### [facility] 1000 [facility] [phone] XR CHEST 2V FRONTAL/LATon XR CHEST 2V [...] IMPRESSION: Stable chest. No acute cardiopulmonary process. Lock Expert: PSCB Transcribe Date/Time: Sep 23 2019 3:00P Dictated by : SUNITHA EVERETT MD This examination was interpreted and the report reviewed and electronically signed by: SUNITHA EVERETT MD on Sep 23 2019 3:01PM EST [id number] Normal [facility] Glucose,Bedsideon 06-06-2018 Glucose mass conc 301 mg/dL High 70-100 [facility] [employer] Comment on above: Result Comment: Test performed by glucose meter. Results may be 10%-15% lowerthan serum/plasma values. (CLIA ID [id number]) Performed By: #### B GLU ####[employer] [address] [place] [address] Glucose mass conc 247 mg/dL High 70-100 [facility] [employer] [facility] Comment on above: Result Comment: Test performed by glucose meter. Results may be 10%-15% lowerthan serum/plasma values. (CLIA ID [id number]) Performed By: #### B GLU ####[facility] [employer] [address] [place] [address] Glucose mass conc 283 mg/dL High 70-100 [facility] Comment on above: Result Comment: Test performed by glucose meter. Results may be 10%-15% lowerthan serum/plasma values. (CLIA ID [id number]) Performed By: #### B GLU ####[facility] [employer] [id number] [place] [address] Basic Metabolic Panelon 11-2 Anion gap 3 molar conc 10 Normal [facility] Comment on above: Performed By: #### H GREGORIO BMP3M ####[facility] [employer] [place] [address] Calcium mass conc 9.1 mg/dL Normal 8.4-10.4 [facility] Comment on above: Performed By: #### H GREGORIO BMP3M ####[facility] [employer] [id number] [place] [address] CO2 molar conc 27 mmol/L Normal 22-30 [facility] Comment on above: Performed By: #### H EMDArpita BMP3M ####[facility] [employer] [place] [address] Glucose mass conc 312 mg/dL High 70-100 [facility] Comment on above: Performed By: #### H EMDF BMP3M ####[facility] [employer] [id number] [place], [place] Urea nitrogen mass conc 19 mg/dL Normal 7-20 [facility] Comment on above: Performed By: #### H EMDF BMP3M ####[facility] [employer] [place], [place] Creatinine mass conc 0.87 mg/dL Normal 0.52-1.25 [facility] Comment on above: Performed By: #### H EMDF, BMP3M ####[facility] [employer] [id number] [place] [address] GFR/1.73 sq M predicted among blacks MDRD vol rate/area (S/P/Bld) mL/min/{1.73_m2} Normal >60 [facility] Comment on above: Performed By: #### Selam GREGORIO BMP3M ####[employer] [place] [address] GFR/1.73 sq M predicted among non-blacks MDRD vol rate/area (S/P/Bld) mL/min/{1.73_m2} Normal >60 [facility] Comment on above: Result Comment: Sour ce- MDRD equation with creatinine calibration to IDMS(NKDEP) eGFR not recommended for drug dose adjustment Performed By: #### H GREGORIO BMP3M ####[address] [place] [address] Chloride molar conc 99 mmol/L Normal 98-107 [facility] Comment on above: Performed By: #### H GREGORIO BMP3M ####[facility] [employer] [place] [address] Potassium molar conc 4.6 mmol/L Normal 3.5-5.1 [facility] Comment on above: Performed By: #### H GREGORIO BMP3M ####[employer] [place] [address] Sodium molar conc 136 mmol/L Low 137-145 [facility] Comment on above: Performed By: #### Selam GREGORIO BMP3M ####[employer] [place] [address] Diagnostic Catherizationon 1 08-03-2017 Diagnostic Catherization Patient Name: MELANIE RESTREPO [facility] Stereoptician Exam Date/Time 06/03/2018 11:35:14 EST Exam Diagnostic Catherization Ordering Physician MD KARY, MARSH A Accession Number [id number] Reason For Exam Chest pain, unspecified Report [facility] --- CARDIAC CATHETERIZATION Patient: Melanie Restrepo Procedure Date: 06/03/2018 : 1965 Age: 53 Gender: F Patient Type: Inpatient Procedure physician: Sang Preston Fellow: Referring Physician: Sang Preston --- INDICATIONS: Positive nuclear medicine stress [...] (IA), 200mcg, NITROGLYCERIN (IA). Verapamil (Isoptin, Calan, Thermal ra), 2.5mg, VERAPAMIL. Heparin, 3000units, HEPARIN. Fentanyl, [...] + + Prepared and electronically signed by Sang Preston 06/03/2018 12:44 Final Dictated: 06/03/2018 12:44 pm Dictating Physician: MD PRESTON MUHAMMAD A Signed Date and Time: 06/03/2018 12:44 pm Signed by: MD PRESTON MUHAMMAD A Normal [facility] Hemogram w/ Autodiffon 06-03 Abs Baso Cnt 0.0 10*3/uL Normal 0.0-0.2 [facility] Comment on above: Performed By: #### H GREGORIO BMP3M ####[address] [address] Abs Neutrophile Cnt 2.4 10*3/uL Normal 1.8-7.0 [facility] Comment on above: Performed By: #### H GREGORIO BMP3M ####[address] [address] Basophils/100 WBC Auto (Bld) 0.4 % Normal 0.0-2.0 [facility] Comment on above: Performed By: #### H GREGORIO BMP3M ####[address] [address] Eosinophils Auto #/vol (Bld) 0.0 10*3/uL Normal 0.0-0.5 [facility] Comment on above: Performed By: #### H GREGORIO BMP3M ####[address] [address] Eosinophils/100 WBC Auto (Bld) 0.2 % Low 1.0-6.0 [facility] Comment on above: Performed By: #### H GREGORIO BMP3M ####[address] [address] Erythrocyte distribution width Auto Ratio (RBC) 16.3 % High 11.5-14.5 [facility] Comment on above: Performed By: #### H GREGORIO BMP3M ####[address] [address] Granulocytes/100 WBC (Bld) 61.5 % Normal 40.0-80.0 [facility] Comment on above: Performed By: #### H GREGORIO BMP3M ####[address] Hematocrit Auto Volume Fraction (Bld) 35.7 % Normal 35.0-47.0 [facility] Comment on above: Performed By: #### H EMDF, BMP3M ####[address] Hemoglobin mass conc (Bld) 11.9 g/dL Normal 11.7-16.0 [facility] Comment on above: Performed By: #### H EMDF, BMP3M ####[address] Lymphocytes Auto #/vol (Bld) 1.2 10*3/uL Normal 1.0-4.3 [facility] Comment on above: Performed By: #### H EMDF BMP3M ####[address] Lymphocytes/100 WBC Auto (Bld) 29.6 % Normal 20.0-40.0 [facility] Comment on above: Performed By: #### H EMDF BMP3M ####[address] MCH Auto Entitic mass (RBC) 29.0 pg Normal 26.0-34.0 [facility] Comment on above: Performed By: #### H EMDF, BMP3M ####[address] MCHC Auto mass conc (RBC) 33.3 % Normal 32.0-36.0 [facility] Comment on above: Performed By: #### H EMDF, BMP3M ####[address] MCV Auto Entitic volume (RBC) 86.9 fL Normal 79.0-98.0 [facility] Comment on above: Performed By: #### H EMDF, BMP3M ####[address] Monocytes Auto #/vol (Bld) 0.3 10*3/uL Normal 0.0-0.8 [facility] Comment on above: Performed By: #### H GREGORIO BMP3M ####[id number] [place], [place] Monocytes/100 WBC Auto (Bld) 8.3 % Normal 2.0-10.0 [facility] Comment on above: Performed By: #### H GREGORIO BMP3M ####[address] Platelet mean volume Auto Entitic volume (Bld) 8.7 fL Normal 7.4-10.4 [facility] Comment on above: Performed By: #### H GREGORIO BMP3M ####[address] Platelets Auto #/vol (Bld) 88 10*3/uL Low 140-440 [facility] Comment on above: Performed By: #### H GREGORIO BMP3M ####[address] RBC Auto #/vol (Bld) 4.11 10*6/uL Normal 3.80-5.20 [facility] Comment on above: Performed By: #### H GREGORIO BMP3M ####[address] WBC Auto #/vol (Bld) 3.9 10*3/uL Normal 3.6-10.7 [facility] Comment on above: Performed By: #### H GREGORIO BMP3M ####[address] Vital Signs Date Time Vital Sign Value Performing Clinician Facility 10-24-2024 07:22-0400 Body mass index (BMI) [Ratio] 44.57 kg/m2 Scar Seymour APRN - TAX ACCOUNTING MANAGER Work Phone: [facility] 10-24-2024 07:22-0400 Body temperature 97.2 [degF] Scar Seymour DESTINATION COORDINATOR - TAX ACCOUNTING MANAGER Work Phone: [facility] [employer] 10-24-2024 07:22-0400 Body weight 123.38 kg Scar Bridenthal DESTINATION COORDINATOR - TAX ACCOUNTING MANAGER Work Phone: [facility] [employer] 10-24-2024 07:22-0400 Diastolic blood pressure 72 mm[Hg] Scar Bridenthal DESTINATION COORDINATOR - TAX ACCOUNTING MANAGER Work Phone: [facility] [employer] 10-24-2024 07:22-0400 Heart rate 63 /min Scar Bridenthal DESTINATION COORDINATOR - TAX ACCOUNTING MANAGER Work Phone: [facility] [employer] 10-24-2024 07:22-0400 Respiratory rate 18 /min Scar Bridenthal DESTINATION COORDINATOR - TAX ACCOUNTING MANAGER Work Phone: [facility] [employer] 10-24-2024 07:22-0400 SaO2% (BldA) [Mass fraction] 95 % Scar Bridenthal DESTINATION COORDINATOR - TAX ACCOUNTING MANAGER Work Phone: [facility] [employer] 10-24-2024 07:22-0400 Systolic blood pressure 124 mm[Hg] Scar Bridenthal DESTINATION COORDINATOR - TAX ACCOUNTING MANAGER Work Phone: [facility] [employer] 09-27-2024 15:05-0400 Body mass index (BMI) [Ratio] 44.25 kg/m2 Jimenez Maddox MD Work Phone: [facility] [employer] 09-27-2024 15:05-0400 Body weight 122.47 kg Jimenez Maddox MD Work Phone: [facility] [employer] 09-27-2024 14:42-0400 Body temperature 99.19 [degF] Jimenez Maddox MD Work Phone: [facility] [employer] 09-27-2024 14:42-0400 Diastolic blood pressure 100 mm[Hg] Jimenez Maddox MD Work Phone: [facility] [employer] 09-27-2024 14:42-0400 Heart rate 100 /min Jmienez Maddox MD Work Phone: [facility] [employer] 09-27-2024 14:42-0400 Respiratory rate 15 /min Jimenez Maddox MD Work Phone: [employer] 09-27-2024 14:42-0400 SaO2% (BldA) [Mass fraction] 97 % Jimenez Maddox MD Work Phone: [employer] 09-27-2024 14:42-0400 Systolic blood pressure 165 mm[Hg] Jimenez Maddox MD Work Phone: [employer] 08-25-2024 13:55-0500 Body temperature 97 [degF] Kate Desir DESTINATION COORDINATOR - TAX ACCOUNTING MANAGER Work Phone: [employer] Comment on above: Patient Reported 08-25-2024 13:55-0500 Heart rate 73 /min Kate Desir DESTINATION COORDINATOR - TAX ACCOUNTING MANAGER Work Phone: [employer] 08-25-2024 13:55-0500 SaO2% (BldA) [Mass fraction] 97 % Kate Thang DESTINATION COORDINATOR - TAX ACCOUNTING MANAGER Work Phone: [employer] 08-01-2024 07:35-0500 Body mass index (BMI) [Ratio] 44.25 kg/m2 Scar Bridenthal DESTINATION COORDINATOR - TAX ACCOUNTING MANAGER Work Phone: [employer] 08-01-2024 07:35-0500 Body temperature 96.91 [degF] Scar Bridenthal DESTINATION COORDINATOR - TAX ACCOUNTING MANAGER Work Phone: [employer] 08-01-2024 07:35-0500 Body weight 122.47 kg Scar Bridenthal DESTINATION COORDINATOR - TAX ACCOUNTING MANAGER Work Phone: [employer] 08-01-2024 07:35-0500 Diastolic blood pressure 81 mm[Hg] Scar Bridenthal DESTINATION COORDINATOR - TAX ACCOUNTING MANAGER Work Phone: [employer] 08-01-2024 07:35-0500 Heart rate 72 /min Scar Bridenthal DESTINATION COORDINATOR - TAX ACCOUNTING MANAGER Work Phone: [employer] 08-01-2024 07:35-0500 Respiratory rate 18 /min Scar Bridenthal DESTINATION COORDINATOR - TAX ACCOUNTING MANAGER Work Phone: [employer] 08-01-2024 07:35-0500 SaO2% (BldA) [Mass fraction] 94 % Scar Seymour DESTINATION COORDINATOR - TAX ACCOUNTING MANAGER Work Phone: [employer] 08-01-2024 07:35-0500 Systolic blood pressure 137 mm[Hg] Scar Seymour DESTINATION COORDINATOR - TAX ACCOUNTING MANAGER Work Phone: [employer] 02-26-2024 08:09-0400 Body mass index (BMI) [Ratio] 44.25 kg/m2 Nelson Grady MD Work Phone: [employer] 02-26-2024 08:09-0400 Body temperature 97.7 [degF] Nelson Grady MD Work Phone: [employer] 02-26-2024 08:09-0400 Body weight 122.47 kg Nelson Grady MD Work Phone: [employer] 02-26-2024 08:09-0400 Diastolic blood pressure 94 mm[Hg] Nelson Grady MD Work Phone: [employer] 02-26-2024 08:09-0400 Heart rate 80 /min Nelson Grady MD Work Phone: [employer] 02-26-2024 08:09-0400 Respiratory rate 12 /min Nelson Grady MD Work Phone: [employer] 02-26-2024 08:09-0400 SaO2% (BldA) [Mass fraction] 96 % Nelson Grady MD Work Phone: [employer] 02-26-2024 08:09-0400 Systolic blood pressure 170 mm[Hg] Nelson Grady MD Work Phone: [employer] 02-19-2024 15:22-0400 Diastolic blood pressure 92 mm[Hg] See Ricketts MD Work Phone: [employer] 02-19-2024 15:22-0400 Heart rate 71 /min See Ricketts MD Work Phone: [employer] 02-19-2024 15:22-0400 Respiratory rate 18 /min See Ricketts MD Work Phone: [employer] 02-19-2024 15:22-0400 SaO2% (BldA) [Mass fraction] 100 % See Ricketts MD Work Phone: [facility] [employer] 02-19-2024 15:22-0400 Systolic blood pressure 144 mm[Hg] See Ricketts MD Work Phone: [facility] [employer] 02-19-2024 10:56-0400 Body mass index (BMI) [Ratio] 45.07 kg/m2 See Ricketts MD Work Phone: [facility] [employer] 02-19-2024 10:56-0400 Body temperature 97.39 [degF] See Ricketts MD Work Phone: [facility] [employer] 02-19-2024 10:56-0400 Body weight 124.74 kg See Ricketts MD Work Phone: [facility] [employer] 12-13-2023 20:36-0400 Body temperature 98.01 [degF] Victorino Akins MD Work Phone: [facility] [employer] 12-13-2023 20:02-0400 Diastolic blood pressure 72 mm[Hg] Victorino Akins MD Work Phone: [facility] [employer] 12-13-2023 20:02-0400 Heart rate 74 /min Victorino Akins MD Work Phone: [facility] [employer] 12-13-2023 20:02-0400 Respiratory rate 16 /min Victorino Akins MD Work Phone: [facility] [employer] 12-13-2023 20:02-0400 SaO2% (BldA) [Mass fraction] 93 % Victorino Akins MD Work Phone: [facility] [employer] 12-13-2023 20:02-0400 Systolic blood pressure 126 mm[Hg] Victorino Akins MD Work Phone: [facility] [employer] 12-13-2023 18:46-0400 Body height 166.4 cm Victorino Akins MD Work Phone: [facility] [employer] 12-13-2023 18:46-0400 Body mass index (BMI) [Ratio] 44.25 kg/m2 Victorino Akins MD Work Phone: [facility] [employer] 12-13-2023 18:46-0400 Body weight 122.47 kg Victorino Akins MD Work Phone: [facility] [employer] 12-04-2023 18:09-0400 Body temperature 98.2 [degF] See Ricketts MD Work Phone: [facility] [employer] 12-04-2023 18:09-0400 Diastolic blood pressure 88 mm[Hg] See Ricketts MD Work Phone: [facility] [employer] 12-04-2023 18:09-0400 Heart rate 76 /min See Ricketts MD Work Phone: [facility] [employer] 12-04-2023 18:09-0400 Respiratory rate 18 /min See Ricketts MD Work Phone: [facility] [employer] 12-04-2023 18:09-0400 SaO2% (BldA) [Mass fraction] 97 % See Ricketts MD Work Phone: [facility] [employer] 12-04-2023 18:09-0400 Systolic blood pressure 145 mm[Hg] See Ricketts MD Work Phone: [facility] [employer] 11-11-2023 07:16-0400 Body mass index (BMI) [Ratio] 45.93 kg/m2 Scar Katherineenthal DESTINATION COORDINATOR - TAX ACCOUNTING MANAGER Work Phone: [facility] [employer] 11-11-2023 07:16-0400 Body temperature 97.7 [degF] Scar Bridenthal DESTINATION COORDINATOR - TAX ACCOUNTING MANAGER Work Phone: [facility] [employer] 11-11-2023 07:16-0400 Body weight 125.19 kg Scar Katherineenthal DESTINATION COORDINATOR - TAX ACCOUNTING MANAGER Work Phone: [facility] [employer] 11-11-2023 07:16-0400 Diastolic blood pressure 60 mm[Hg] Scar Bridenthal DESTINATION COORDINATOR - TAX ACCOUNTING MANAGER Work Phone: [facility] [employer] 11-11-2023 07:16-0400 Heart rate 77 /min Scar Bridenthal DESTINATION COORDINATOR - TAX ACCOUNTING MANAGER Work Phone: [facility] [employer] 11-11-2023 07:16-0400 Respiratory rate 16 /min Scar Bridenthal DESTINATION COORDINATOR - TAX ACCOUNTING MANAGER Work Phone: [facility] [employer] 11-11-2023 07:16-0400 SaO2% (BldA) [Mass fraction] 96 % Scar Bridenthal DESTINATION COORDINATOR - TAX ACCOUNTING MANAGER Work Phone: [facility] [employer] 11-11-2023 07:16-0400 Systolic blood pressure 114 mm[Hg] Scar Bridenthal DESTINATION COORDINATOR - TAX ACCOUNTING MANAGER Work Phone: [facility] [employer] 10-13-2023 11:04-0400 Body height 165.1 cm Angel Juan MD Work Phone: [facility] [employer] 10-13-2023 11:04-0400 Body mass index (BMI) [Ratio] 45.18 kg/m2 Angel Juan MD Work Phone: [facility] [employer] 10-13-2023 11:04-0400 Body temperature 97.5 [degF] Angel Juan MD Work Phone: [facility] [employer] 10-13-2023 11:04-0400 Body weight 123.15 kg Angel Juan MD Work Phone: [facility] [employer] 10-13-2023 11:04-0400 Diastolic blood pressure 79 mm[Hg] Angel Juan MD Work Phone: [facility] [employer] 10-13-2023 11:04-0400 Heart rate 70 /min Angel Juan MD Work Phone: [facility] [employer] 10-13-2023 11:04-0400 SaO2% (BldA) [Mass fraction] 96 % Angel Juan MD Work Phone: [facility] [employer] 10-13-2023 11:04-0400 Systolic blood pressure 124 mm[Hg] Angel Juan MD Work Phone: [facility] [employer] 10-12-2023 15:31-0400 Body temperature 97.39 [degF] William Harinderrakola DO Work Phone: [facility] [employer] 10-12-2023 15:31-0400 Diastolic blood pressure 81 mm[Hg] William Harinderrakola DO Work Phone: [facility] [employer] 10-12-2023 15:31-0400 Heart rate 78 /min William Benykola DO Work Phone: [facility] [employer] 10-12-2023 15:31-0400 Respiratory rate 18 /min William Davidla DO Work Phone: [facility] [employer] 10-12-2023 15:31-0400 SaO2% (BldA) [Mass fraction] 97 % William Hernandezla DO Work Phone: [facility] [employer] 10-12-2023 15:31-0400 Systolic blood pressure 143 mm[Hg] William Benykola DO Work Phone: [facility] [employer] 09-22-2023 09:10-0400 Body height 165.1 cm Angel Juan MD Work Phone: [facility] [employer] 09-22-2023 09:10-0400 Body mass index (BMI) [Ratio] 45.9 kg/m2 Angel Juan MD Work Phone: [facility] [employer] 09-22-2023 09:10-0400 Body temperature 97.9 [degF] Angel Juan MD Work Phone: [facility] [employer] 09-22-2023 09:10-0400 Body weight 125.1 kg Angel Juan MD Work Phone: [facility] [employer] 09-22-2023 09:10-0400 Diastolic blood pressure 84 mm[Hg] Angel Juan MD Work Phone: [facility] [employer] 09-22-2023 09:10-0400 Heart rate 64 /min Angel Juan MD Work Phone: [facility] [employer] 09-22-2023 09:10-0400 SaO2% (BldA) [Mass fraction] 96 % Angel Juan MD Work Phone: [facility] [employer] 09-22-2023 09:10-0400 Systolic blood pressure 137 mm[Hg] Angel Juan MD Work Phone: [facility] [employer] 08-26-2023 09:25-0500 Diastolic blood pressure 77 mm[Hg] Scar Bridenthal DESTINATION COORDINATOR - TAX ACCOUNTING MANAGER Work Phone: [facility] [employer] 08-26-2023 09:25-0500 Heart rate 89 /min Scar Bridenthal DESTINATION COORDINATOR - TAX ACCOUNTING MANAGER Work Phone: [facility] [employer] 08-26-2023 09:25-0500 Systolic blood pressure 136 mm[Hg] Scar Bridenthal DESTINATION COORDINATOR - TAX ACCOUNTING MANAGER Work Phone: [facility] [employer] 08-26-2023 08:25-0500 Body height 165.1 cm Scar Bridenthal DESTINATION COORDINATOR - TAX ACCOUNTING MANAGER Work Phone: [facility] [employer] 08-26-2023 08:25-0500 Body mass index (BMI) [Ratio] 45.86 kg/m2 Scar Bridenthal DESTINATION COORDINATOR - TAX ACCOUNTING MANAGER Work Phone: [facility] [employer] 08-26-2023 08:25-0500 Body temperature 99.1 [degF] Scar Bridenthal DESTINATION COORDINATOR - TAX ACCOUNTING MANAGER Work Phone: [facility] [employer] 08-26-2023 08:25-0500 Body weight 125.01 kg Scar Bridenthal DESTINATION COORDINATOR - TAX ACCOUNTING MANAGER Work Phone: [facility] [employer] 08-26-2023 08:25-0500 Respiratory rate 24 /min Scar Bridenthal DESTINATION COORDINATOR - TAX ACCOUNTING MANAGER Work Phone: [facility] [employer] 08-26-2023 08:25-0500 SaO2% (BldA) [Mass fraction] 97 % Scar Bridenthal DESTINATION COORDINATOR - TAX ACCOUNTING MANAGER Work Phone: [facility] [employer] 05-16-2023 16:20-0500 Diastolic blood pressure 90 mm[Hg] Mariana Snow MD Work Phone: [facility] [employer] 05-16-2023 16:20-0500 Heart rate 95 /min Mariana Snow MD Work Phone: [facility] [employer] 05-16-2023 16:20-0500 Respiratory rate 18 /min Mariana Snow MD Work Phone: [facility] [employer] 05-16-2023 16:20-0500 SaO2% (BldA) [Mass fraction] 97 % Mariana Snow MD Work Phone: [facility] [employer] 05-16-2023 16:20-0500 Systolic blood pressure 133 mm[Hg] Mariana Snow MD Work Phone: [facility] [employer] 05-16-2023 12:37-0500 Body height 165.1 cm Mariana Snow MD Work Phone: [facility] [employer] 05-16-2023 12:37-0500 Body mass index (BMI) [Ratio] 46.76 kg/m2 Mariana Snow MD Work Phone: [facility] [employer] 05-16-2023 12:37-0500 Body weight 127.46 kg Mariana Snow MD Work Phone: [facility] [employer] 05-16-2023 12:33-0500 Body temperature 97.59 [degF] Mariana Snow MD Work Phone: [facility] [employer] 03-15-2023 10:23-0400 Body temperature 96.21 [degF] Yogesh Dodson MD Work Phone: [facility] [employer] 03-15-2023 10:23-0400 Diastolic blood pressure 95 mm[Hg] Yogesh Dodson MD Work Phone: [facility] [employer] 03-15-2023 10:23-0400 Heart rate 74 /min Yogesh Dodson MD Work Phone: [facility] [employer] 03-15-2023 10:23-0400 Respiratory rate 20 /min Yogesh Dodson MD Work Phone: [facility] [employer] 03-15-2023 10:23-0400 SaO2% (BldA) [Mass fraction] 98 % Yogesh Dodson MD Work Phone: [facility] [employer] 03-15-2023 10:23-0400 Systolic blood pressure 179 mm[Hg] Yogesh Dodson MD Work Phone: [facility] [employer] 02-20-2023 07:58-0400 Body temperature 97.81 [degF] Mariana Snow MD Work Phone: [facility] [employer] 02-20-2023 07:58-0400 Diastolic blood pressure 85 mm[Hg] Mariana Snow MD Work Phone: [facility] [employer] 02-20-2023 07:58-0400 Heart rate 67 /min Mariana Snow MD Work Phone: [facility] [employer] 02-20-2023 07:58-0400 Respiratory rate 20 /min Mariana Snow MD Work Phone: [facility] [employer] 02-20-2023 07:58-0400 SaO2% (BldA) [Mass fraction] 93 % Mariana Snow MD Work Phone: [facility] [employer] 02-20-2023 07:58-0400 Systolic blood pressure 132 mm[Hg] Mariana Snow MD Work Phone: [facility] [employer] 02-16-2023 08:25-0400 Body mass index (BMI) [Ratio] 48.7 kg/m2 Scar Bridenthal DESTINATION COORDINATOR - TAX ACCOUNTING MANAGER Work Phone: [facility] [employer] 02-16-2023 08:25-0400 Body temperature 96.91 [degF] Scar Bridenthal DESTINATION COORDINATOR - TAX ACCOUNTING MANAGER Work Phone: [facility] [employer] 02-16-2023 08:25-0400 Body weight 134.81 kg Scar Bridenthal DESTINATION COORDINATOR - TAX ACCOUNTING MANAGER Work Phone: [employer] 02-16-2023 08:25-0400 Diastolic blood pressure 60 mm[Hg] Scar Bridenthal DESTINATION COORDINATOR - TAX ACCOUNTING MANAGER Work Phone: [employer] 02-16-2023 08:25-0400 Heart rate 82 /min Scar Bridenthal DESTINATION COORDINATOR - TAX ACCOUNTING MANAGER Work Phone: [employer] 02-16-2023 08:25-0400 Respiratory rate 18 /min Scar Bridenthal DESTINATION COORDINATOR - TAX ACCOUNTING MANAGER Work Phone: [employer] 02-16-2023 08:25-0400 SaO2% (BldA) [Mass fraction] 95 % Scar Bridenthal DESTINATION COORDINATOR - TAX ACCOUNTING MANAGER Work Phone: [employer] 02-16-2023 08:25-0400 Systolic blood pressure 128 mm[Hg] Scar Bridenthal DESTINATION COORDINATOR - TAX ACCOUNTING MANAGER Work Phone: [employer] 02-13-2023 22:04-0400 Body temperature 98.29 [degF] Nelson Grady MD Work Phone: [employer] 02-13-2023 22:04-0400 Diastolic blood pressure 84 mm[Hg] Nelson Grady MD Work Phone: [employer] 02-13-2023 22:04-0400 Heart rate 74 /min Nelson Grady MD Work Phone: [employer] 02-13-2023 22:04-0400 Respiratory rate 18 /min Nelson Grady MD Work Phone: [employer] 02-13-2023 22:04-0400 SaO2% (BldA) [Mass fraction] 95 % Nelson Grady MD Work Phone: [employer] 02-13-2023 22:04-0400 Systolic blood pressure 136 mm[Hg] Nelson Grady MD Work Phone: [employer] 02-06-2023 21:00-0400 Body height 166.4 cm Izabela Noyola DO Work Phone: [facility] [employer] 02-06-2023 21:00-0400 Body mass index (BMI) [Ratio] 47.52 kg/m2 Izabela Noyola DO Work Phone: [facility] [employer] 02-06-2023 21:00-0400 Body temperature 98.1 [degF] Izabela Noyola DO Work Phone: [facility] [employer] 02-06-2023 21:00-0400 Body weight 131.54 kg Izabela Noyola DO Work Phone: [facility] [employer] 02-06-2023 21:00-0400 Diastolic blood pressure 68 mm[Hg] Izabela Noyola DO Work Phone: [facility] [employer] 02-06-2023 21:00-0400 Heart rate 80 /min Izabela Noyola DO Work Phone: [facility] [employer] 02-06-2023 21:00-0400 Respiratory rate 16 /min Izabela Noyola DO Work Phone: [facility] [employer] 02-06-2023 21:00-0400 SaO2% (BldA) [Mass fraction] 95 % Izabela Noyola DO Work Phone: [facility] [employer] 02-06-2023 21:00-0400 Systolic blood pressure 152 mm[Hg] Izabela Noyola DO Work Phone: [facility] [employer] 02-05-2023 00:13-0400 Diastolic blood pressure 78 mm[Hg] Jarvis Belcher MD Work Phone: [facility] [employer] 02-05-2023 00:13-0400 Heart rate 70 /min Jarvis Belcher MD Work Phone: [facility] [employer] 02-05-2023 00:13-0400 SaO2% (BldA) [Mass fraction] 95 % Jarvis Belcher MD Work Phone: [facility] [employer] 02-05-2023 00:13-0400 Systolic blood pressure 138 mm[Hg] Jarvis Belcher MD Work Phone: [facility] [employer] 02-04-2023 22:32-0400 Body temperature 97.9 [degF] Jarvis Belcher MD Work Phone: [facility] [employer] 02-04-2023 22:32-0400 Respiratory rate 18 /min Jarvis Belcher MD Work Phone: [facility] [employer] 02-04-2023 22:30-0400 Body height 165.1 cm Jarvis Belcher MD Work Phone: [facility] [employer] 02-04-2023 22:30-0400 Body mass index (BMI) [Ratio] 48.26 kg/m2 Jarvis Belcher MD Work Phone: [facility] [employer] 02-04-2023 22:30-0400 Body weight 131.54 kg Jarvis Belcher MD Work Phone: [facility] [employer] 01-14-2023 21:53-0400 Body temperature 96.8 [degF] See Ricketts MD Work Phone: [facility] [employer] 01-14-2023 21:53-0400 Heart rate 80 /min See Ricketts MD Work Phone: [facility] [employer] 01-14-2023 21:53-0400 SaO2% (BldA) [Mass fraction] 95 % See Ricketts MD Work Phone: [facility] [employer] 12-09-2022 11:16-0400 Body height 166.4 cm Scar Bridenthal DESTINATION COORDINATOR - TAX ACCOUNTING MANAGER Work Phone: [facility] [employer] 12-09-2022 11:16-0400 Body mass index (BMI) [Ratio] 50.64 kg/m2 Scar Bridenthal DESTINATION COORDINATOR - TAX ACCOUNTING MANAGER Work Phone: [facility] [employer] 12-09-2022 11:16-0400 Body weight 140.16 kg Scar Bridenthal DESTINATION COORDINATOR - TAX ACCOUNTING MANAGER Work Phone: [facility] [employer] 12-09-2022 11:16-0400 Diastolic blood pressure 62 mm[Hg] Scar Bridenthal DESTINATION COORDINATOR - TAX ACCOUNTING MANAGER Work Phone: [facility] [employer] 12-09-2022 11:16-0400 Heart rate 75 /min Scar Bridenthal DESTINATION COORDINATOR - TAX ACCOUNTING MANAGER Work Phone: [facility] 12-09-2022 11:16-0400 SaO2% (BldA) [Mass fraction] 98 % Scar Bridenthal DESTINATION COORDINATOR - TAX ACCOUNTING MANAGER Work Phone: [facility] 12-09-2022 11:16-0400 Systolic blood pressure 110 mm[Hg] Scar Bridenthal DESTINATION COORDINATOR - TAX ACCOUNTING MANAGER Work Phone: [facility] 12-07-2022 10:30-0400 Diastolic blood pressure 70 mm[Hg] Catarino Gombash DO Work Phone: [facility] 12-07-2022 10:30-0400 Heart rate 77 /min Catarino Gombash DO Work Phone: [facility] 12-07-2022 10:30-0400 Respiratory rate 18 /min Catarino Gombash DO Work Phone: [facility] 12-07-2022 10:30-0400 SaO2% (BldA) [Mass fraction] 97 % Catarino Gombash DO Work Phone: [facility] 12-07-2022 10:30-0400 Systolic blood pressure 150 mm[Hg] Catarino Gombash DO Work Phone: [facility] 12-07-2022 08:34-0400 Body temperature 98.4 [degF] Catarino Gombash DO Work Phone: [facility] 04-07-2022 14:13-0400 Body temperature 98 [degF] Dr. Rik Peña Work Phone: [facility] Work Phone: 04-07-2022 14:13-0400 Body weight 143.[address] Rik Peña Work Phone: [facility] Work Phone: 04-07-2022 14:13-0400 Diastolic blood pressure 71 mm[Hg] Dr. Rik Peña Work Phone: [facility] Work Phone: 04-07-2022 14:13-0400 Heart rate 88 /min Dr. Rik Peña Work Phone: [facility] Work Phone: 04-07-2022 14:13-0400 SaO2% (BldA) [Mass fraction] 94 % Dr. Rik Peña Work Phone: [facility] Work Phone: 04-07-2022 14:13-0400 Systolic blood pressure 119 mm[Hg] Dr. Rik Peña Work Phone: [facility] Work Phone: 03-07-2022 04:10-0400 Diastolic blood pressure 68 mm[Hg] Dr. Rik Peña Work Phone: [facility] Work Phone: 03-07-2022 04:10-0400 Heart rate 94 /min Dr. Rik Peña Work Phone: [facility] Work Phone: 03-07-2022 04:10-0400 Respiratory rate 18 /min Dr. Rik Peña Work Phone: [facility] Work Phone: 03-07-2022 04:10-0400 SaO2% (BldA) [Mass fraction] 94 % Dr. Rik Peña Work Phone: [facility] Work Phone: 03-07-2022 04:10-0400 Systolic blood pressure 130 mm[Hg] Dr. Rik Peña Work Phone: [facility] Work Phone: 03-06-2022 23:30-0400 Body height 165.[address] Rik Peña Work Phone: [facility] Work Phone: 03-06-2022 23:30-0400 Body mass index (BMI) [Ratio] 51.5 kg/m2 Dr. Rik Peña Work Phone: [facility] Work Phone: 03-06-2022 23:30-0400 Body temperature 96.6 [degF] Dr. Rik Peña Work Phone: [facility] Work Phone: 03-06-2022 23:30-0400 Body weight 140.[address] Rik Peña Work Phone: [facility] Work Phone: 02-16-2022 15:35-0400 Body mass index (BMI) [Ratio] 51.1 kg/m2 Dr. Rik Peña Work Phone: [facility] Work Phone: 02-16-2022 15:35-0400 Body temperature 98.2 [degF] Dr. Rik Peña Work Phone: [facility] Work Phone: 02-16-2022 15:35-0400 Body weight 139.[address] Rik Peña Work Phone: [facility] Work Phone: 02-16-2022 15:35-0400 Diastolic blood pressure 70 mm[Hg] Dr. Rik Peña Work Phone: [facility] Work Phone: 02-16-2022 15:35-0400 Heart rate 89 /min Dr. Rik Peña Work Phone: [facility] Work Phone: 02-16-2022 15:35-0400 Respiratory rate 18 /min Dr. Rik Peña Work Phone: [facility] Work Phone: 02-16-2022 15:35-0400 SaO2% (BldA) [Mass fraction] 95 % Dr. Rik Peña Work Phone: [facility] Work Phone: 02-16-2022 15:35-0400 Systolic blood pressure 102 mm[Hg] Dr. Rik Peña Work Phone: [facility] Work Phone: 04-04-2020 20:22-0400 BP Diastolic 74 mm[Hg] [facility] [place] 04-04-2020 20:22-0400 BP Systolic 112 mm[Hg] Khris [facility] [place] 04-04-2020 20:22-0400 Pulse (Heart Rate) 91 /min Khris Bright [employer] [facility], [place] 04-04-2020 20:22-0400 Pulse Oximetry 99 % [facility] [place] 04-04-2020 20:22-0400 Respiratory Rate 18 /min Khris HitchcockBoreal [employer] [facility], [place] 04-04-2020 15:43-0400 BMI (Body Mass Index) 51.09 kg/m2 [facility] [place] 04-04-2020 15:43-0400 Body Temperature 96.8 [degF] [facility] [place] 04-04-2020 15:43-0400 Body weight 139.25 kg Khris [facility] [place] Encounters Encounter Date Encounter Type Care Provider Facility Start: 12-18-2024 ambulatory See Liliam Facility :[facility] Start: 12-18-2024 ambulatory See Liliam Facility :[facility] Start: 12-16-2024 ambulatory See Liliam Facility :[facility] Start: 12-08-2024 End: 12-08-2024 ambulatory See Liliam Facility:[facility] Start: 11-29-2024 End: 11-29-2024 ambulatory See Liliam Facility:[facility] Start: 11-27-2024 End: 11-27-2024 ambulatory See Liliam Facility:[facility] Start: 11-25-2024 End: 11-25-2024 ambulatory See Liliam Facility:[facility] Start: 11-15-2024 End: 11-15-2024 ambulatory See Liliam Facility:[facility] Start: 11-10-2024 End: 11-10-2024 ambulatory See Liliam Facility:[facility] Start: 11-06-2024 ambulatory See Liliam Facility :[facility] Start: 10-31-2024 End: 10-31-2024 ambulatory [facility] Facility:[facility] Start: 10-31-2024 End: 10-31-2024 ambulatory [facility] Facility:[facility] Start: 10-24-2024 End: 10-24-2024 Office outpatient visit 25 minutes Scar Katherineenthal DESTINATION COORDINATOR - TAX ACCOUNTING MANAGER Work Phone: [facility] Comment on above: Type 2 diabetes kyle [...] 2 diabetes mellitus with hyperglycemia, unspecified whether laborer marine terminal insulin use (HCC); Yeast dermatitis; Class 3 severe obesity due to excess calories with serious comorbidity and body mass index (BMI) of 40.0 to 44.9 in adult ([facility]LY [facility]) Start: 10-24-2024 End: 10-24-2024 ambulatory SCAR RAQUELAL [facility] Start: 10-03-2024 End: 10-03-2024 Refill Scar Bridenthal DESTINATION COORDINATOR - TAX ACCOUNTING MANAGER Work Phone: [facility] Comment on above: Anxiety; Essential hypertension Start: 09-27-2024 End: 09-27-2024 Emergency department patient visit Jimenez Maddox MD Work Phone: [facility] Comment on above: Hyperglycemia (Prima ry Dx); CARLOS (acute kidney injury) (HCC); Facial flushing Start: 09-27-2024 End: 09-30-2024 ambulatory Debra Wheeler RN [facility] Clinical Communication Start: 09-27-2024 End: 09-30-2024 [facility] Start: 09-20-2024 End: 09-20-2024 Refill Scar Bridenthal DESTINATION COORDINATOR - TAX ACCOUNTING MANAGER Work Phone: [facility] Comment on above: Type 2 diabetes kyle itus with hyperglycemia, unspecified whether custodial insulin use (HCC) Start: 09-02-2024 End: 09-02-2024 Emergency department patient visit See Ricketts Facility:[facility] Start: 08-25-2024 End: 08-25-2024 Office outpatient visit 15 minutes Kate Desir DESTINATION COORDINATOR - TAX ACCOUNTING MANAGER Work Phone: [facility] Comment on above: URI with cough and c ongestion (Primary Dx); Chronic bronchitis, unspecified chronic bronchitis type (HCC) Start: 08-02-2024 End: 08-02-2024 Telephone encounter Scar Seymour DESTINATION COORDINATOR [employer] Work Phone: [facility] Comment on above: Results Start: 08-01-2024 End: 08-01-2024 Office outpatient visit 25 minutes Scar Seymour DESTINATION COORDINATOR [employer] Work Phone: [facility] Comment on above: 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); Low platelet count (HCC); Essential hypertension; Hyperlipidemia LDL goal <70; Obstructive sleep apnea syndrome; Pancytopenia (HCC); Encounter for screening mammogram for malignant neoplasm of breast; Type 2 diabetes mellitus with hyperglycemia, unspecified whether custodial insulin use (HCC); Other cirrhosis of liver [...] 06-30-2024 End: 06-30-2024 Orders Only Kate Desir DESTINATION COORDINATOR - TAX ACCOUNTING MANAGER Work Phone: [facility] Comment on above: Type 2 diabetes kyle itus with hyperglycemia, unspecified whether laborer marine terminal insulin use (HCC) (Primary Dx) Start: 06-28-2024 End: 06-28-2024 Orders Only Kate Desir DESTINATION COORDINATOR - TAX ACCOUNTING MANAGER Work Phone: [facility] Start: 05-30-2024 End: 05-30-2024 Orders Only Scar Bridenthal DESTINATION COORDINATOR - TAX ACCOUNTING MANAGER Work Phone: [facility] Comment on above: Chronic bronchitis, unspecified chronic bronchitis type (HCC) (Primary Dx) Start: 05-28-2024 End: 05-29-2024 Refill Scar Bridenthal DESTINATION COORDINATOR - TAX ACCOUNTING MANAGER Work Phone: [facility] Comment on above: Anxiety; Essential hypertension Start: 05-28-2024 End: 05-29-2024 Refill Scar Bridenthal DESTINATION COORDINATOR - TAX ACCOUNTING MANAGER Work Phone: [facility] Comment on above: Type 2 diabetes kyle itus with polyneuropathy (HCC) Start: 04-23-2024 End: 04-23-2024 Emergency department patient visit See Liliam Facility:[facility] Start: 03-22-2024 End: 03-22-2024 Emergency department patient visit [facility] Facility:[facility] Start: 03-02-2024 End: 03-02-2024 Refill Scar Bridenthal DESTINATION COORDINATOR - TAX ACCOUNTING MANAGER Work Phone: [facility] Comment on above: Anxiety Start: 02-26-2024 End: 02-26-2024 Emergency department patient visit Nelson Grady MD Work Phone: [facility] Comment on above: Intertrigo (Primary Dx) Start: 02-19-2024 End: 02-19-2024 Emergency department patient visit See Ricketts MD Work Phone: [facility] Comment on above: Acute nonintractable headache, unspecified headache type (Primary Dx) Start: 01-03-2024 End: 01-03-2024 Refill Scar Bridenthal DESTINATION COORDINATOR - TAX ACCOUNTING MANAGER Work Phone: [facility] Comment on above: Anxiety; Essential hypertension; Type 2 diabetes mellitus with polyneuropathy (HCC) Start: 12-13-2023 End: 12-13-2023 Emergency department patient visit Victorino Akins MD Work Phone: [facility] Comment on above: Hypoglycemia (Primar y Dx) Start: 12-04-2023 End: 12-04-2023 Emergency department patient visit See Ricketts MD Work Phone: [facility] Comment on above: Type 2 diabetes kyle itus treated with insulin (CMS/HCC) (HCC) (Primary Dx) Start: 11-16-2023 Telephone encounter Brynn Devine RN [facility] Comment on above: Diabetes (CGM Diabet es) Start: 11-11-2023 End: 11-11-2023 Office outpatient visit 25 minutes Scar Seymour DESTINATION COORDINATOR - TAX ACCOUNTING MANAGER Work Phone: [facility] Comment on above: Hyponatremia (Primar y Dx); Type 2 diabetes mellitus with polyneuropathy (HCC); Other cirrhosis of liver (HCC); Pancytopenia (HCC) Start: 10-14-2023 Orders Only Scar marie DESTINATION COORDINATOR - TAX ACCOUNTING MANAGER Work Phone: [facility] Comment on above: Type 2 diabetes kyle itus with polyneuropathy (HCC) (Primary Dx) Start: 10-13-2023 Refill Scar marie DESTINATION COORDINATOR - TAX ACCOUNTING MANAGER Work Phone: [facility] Comment on above: Type 2 diabetes kyle itus with polyneuropathy (HCC) b12 Start: 10-13-2023 End: 10-13-2023 Office outpatient visit 40 minutes Angel Juan MD Work Phone: [facility] Comment on above: Pancytopenia (HCC) ( Primary Dx) Start: 10-11-2023 End: 10-12-2023 Emergency department patient visit William aMx Work Phone: [facility] Comment on above: Hypoglycemia (Primar y Dx) Start: 09-30-2023 End: 09-30-2023 Subsequent hospital visit by physician Angel Juan MD Work Phone: [facility] Comment on above: Pancytopenia (HCC) Start: 09-22-2023 End: 09-22-2023 Office outpatient new 60 minutes Angel Juan MD Work Phone: [facility] Comment on above: Pancytopenia (HCC) ( Primary Dx) Start: 08-26-2023 End: 08-26-2023 Patient encounter procedure Scar Cierra DESTINATION COORDINATOR - TAX ACCOUNTING MANAGER Work Phone: [facility] [employer] Work Phone: Start: 08-26-2023 End: 08-26-2023 Periodic preventive med est patient 40-64yrs Scar Seymour DESTINATION COORDINATOR - TAX ACCOUNTING MANAGER Work Phone: [facility] [...] patient visit Mariana Snow MD Work Phone: [facility] Comment on above: Chest pain, unspecif ied type (Primary Dx) Start: 03-15-2023 End: 03-15-2023 Emergency department patient visit Yogesh Dodson MD Work Phone: [facility] Comment on above: Strain of neck muscl e, initial encounter (Primary Dx) Start: 02-18-2023 End: 02-20-2023 Emergency department patient visit Mariana Snow MD Work Phone: [facility] Comment on above: Hypoglycemia (Primar y Dx) Start: 02-16-2023 End: 02-16-2023 Office outpatient visit 25 minutes Scar Seymour DESTINATION COORDINATOR - TAX ACCOUNTING MANAGER Work Phone: [facility] Comment on above: Lymphopenia (Primary Dx); Thrombocytopenia (HCC); Type 2 diabetes mellitus with polyneuropathy (HCC); Acute pain of left knee; Essential hypertension Start: 02-13-2023 End: 02-13-2023 Emergency department patient visit Nelson Grady MD Work Phone: [facility] Comment on above: Near syncope (Primar y Dx) Start: 02-06-2023 End: 02-06-2023 Subsequent hospital visit by physician [facility] [employer] [facility] Comment on above: Arrived Start: 02-06-2023 End: 02-06-2023 Emergency department patient visit Izabela Johan DO Work Phone: [facility] ED Comment on above: Sprain of left knee, unspecified ligament, initial encounter (Primary Dx) Start: 02-04-2023 End: 02-05-2023 Emergency department patient visit Jarvis Belcher MD Work Phone: [facility] Comment on above: Abscess (Primary Dx) ; Lilly infection Start: 01-14-2023 End: 01-14-2023 Emergency department patient visit See Ricketts MD Work Phone: [facility] Comment on above: Fall, initial encoun ter (Primary Dx); Left hand pain; Left wrist pain; Left shoulder pain, unspecified chronicity Start: 12-09-2022 End: 12-09-2022 Office outpatient new 45 minutes Scar Seymour DESTINATION COORDINATOR - TAX ACCOUNTING MANAGER Work Phone: [facility] Comment on above: Lip swelling (Primar y Dx); Type 2 diabetes mellitus with polyneuropathy (HCC); Chronic obstructive pulmonary disease, unspecified COPD type (HCC); Essential hypertension; Hyperlipidemia LDL goal <70; Anxiety Start: 12-07-2022 End: 12-07-2022 Emergency department patient visit Catarino Arce DO Work Phone: [facility] Comment on above: Angioedema, initial encounter (Primary Dx); Lip swelling; Cold sore Start: 05-22-2022 End: 05-22-[address] Rik Peña Work Phone: [facility] Work Phone: Start: 05-22-2022 End: 05-22-[address] Rik Peña Work Phone: [facility]Laboratory Start: 05-20-2022 End: 05-20-[address] Rik Peña Work Phone: [facility] Work Phone: Start: 05-20-2022 End: 05-20-[address] Rik Peña Work Phone: [facility] Start: 04-07-2022 End: 04-07-[address] Rik Peña Work Phone: [facility] Work Phone: Start: 04-07-2022 End: 04-07-[address] Rik Peña Work Phone: [facility] Start: 03-31-2022 Non-patient / Non-visit Dr. Hermes Peña Work Phone: [facility] Start: 03-31-2022 End: 03-31-[address] Rik Peña Work Phone: [facility]Cardi[facility] Services Start: 03-06-2022 End: 03-07-2022 Emergency department patient visit Dr. Rik Peña Work Phone: [facility]-Emergency Department Start: 02-16-[address] Rik Peña Work Phone: [facility] Start: 02-16-2022 End: 02-16-[address] Rik Peña Work Phone: [facility] Start: 02-09-2022 End: 02-09-2022 Patient encounter procedure [facility]Outpatient Breast Imaging Start: 11-07-2021 End: 11-07-2021 Patient encounter procedure [facility] Start: 06-14-2020 End: 06-14-2020 Subsequent hospital visit by physician Jeniffer Ramos Work Phone: [facility] Comment on above: Nonintractable heada dara, unspecified chronicity pattern, unspecified headache type; Body aches; Cough; Head congestion; Mid back pain; Chest pain varying with breathing; Hx of bacterial pneumonia; Lab test negative for COVID-19 virus; SOB (shortness of breath) Start: 04-20-2020 End: 04-20-2020 Subsequent hospital visit by physician Dyllan Collins Work Phone: [facility] Laboratory Start: 04-04-2020 End: 04-04-2020 Emergency department patient visit Khris Daysi Bright Work Phone: [facility] ED Comment on above: Chest pain, unspecif ied type (Primary Dx) Start: 02-07-2020 End: 02-07-2020 Subsequent hospital visit by physician See Ricketts Work Phone: [facility] Comment on above: Arrived Start: 01-23-2020 End: 01-23-2020 Subsequent hospital visit by physician Dyllan Collins Work Phone: [facility] Laboratory Start: 10-12-2019 End: 10-12-2019 Subsequent hospital visit by physician Dyllan Collins Work Phone: [facility] Laboratory Start: 2018 Evaluation and management of inpatient UNKNOWN PROVIDER [facility] Procedures Date Procedure Procedure Detail Performing Clinician [...] Maddox MD Work Phone: Start: 08-31-2024 Lipid 1995 panel - S ariana or Plasma Scar Bridenthal DESTINATION COORDINATOR - TAX ACCOUNTING MANAGER Work Phone: Start: 08-01-2024 Lipid 1996 panel - S ariana or Plasma Scar Bridenthal DESTINATION COORDINATOR - TAX ACCOUNTING MANAGER Work Phone: Start: 02-19-2024 Urinalysis complete panel - Urine Lesia Solis DESTINATION COORDINATOR - TAX ACCOUNTING MANAGER Work Phone: Start: 02-19-2024 Urnls dip stick/tabl et reagent auto microscopy Lesia Solis DESTINATION COORDINATOR - TAX ACCOUNTING MANAGER Work Phone: Start: 02-19-2024 Ct head/brain w/o co ntrast material Lesia Solis DESTINATION COORDINATOR - TAX ACCOUNTING MANAGER Work Phone: Start: 02-19-2024 SARS-COV-2, FLU A/B, AND RSV COMBO Lesia Solis DESTINATION COORDINATOR - TAX ACCOUNTING MANAGER Work Phone: Start: 02-19-2024 Comprehensive metabo lic panel Lesia Solis DESTINATION COORDINATOR - TAX ACCOUNTING MANAGER Work Phone: Start: 02-19-2024 Manual differential performed [Presence] in Blood Lesia Solis DESTINATION COORDINATOR - TAX ACCOUNTING MANAGER Work Phone: Start: 12-13-2023 POCT GLUCOSE METER [...] Work Phone: Start: 10-12-2023 POCT GLUCOSE METER Dysart cait Calero MD Work Phone: Start: 10-12-2023 Glucose quantitative blood xcpt reagent strip William Max DO Work Phone: Start: 10-12-2023 POCT GLUCOSE METER Dysart cait Calero MD Work Phone: Start: 10-12-2023 Glucose quantitative blood xcpt reagent strip William Max DO Work Phone: Start: 10-12-2023 POCT GLUCOSE METER [place]ysart cait Calero MD Work Phone: Start: 10-11-2023 POCT GLUCOSE METER [place]ysart cait Calero MD Work Phone: Start: 10-11-2023 End: [...] 12 lds trcg only w/o i&r William Max DO Work Phone: Start: 08-26-2023 Comprehensive metabo lic panel Scar Katherineenthal DESTINATION COORDINATOR - TAX ACCOUNTING MANAGER Work Phone: Start: 08-26-2023 Culture bacterial quanttative colony count urine Scar Bridenthal DESTINATION COORDINATOR - TAX ACCOUNTING MANAGER Work Phone: Start: 08-26-2023 Lipid panel Scar Br identhal DESTINATION COORDINATOR - TAX ACCOUNTING MANAGER Work Phone: Start: 08-26-2023 Urnls dip stick/tabl et rgnt non-auto w/o micrscp Scar Bridenthal DESTINATION COORDINATOR - TAX ACCOUNTING MANAGER Work Phone: Start: 08-26-2023 Lipid 1996 panel - S ariana or Plasma Scar Bridenthal DESTINATION COORDINATOR - TAX ACCOUNTING MANAGER Work Phone: Start: 05-16-2023 Assay of troponin [...] exam knee complete 4/more views Izabela Noyola Work Phone: Start: 05-20-2022 Plain x-ray of [...] panel - S ariana or Plasma Catarino Arce DO Work Phone: Start: 06-14-2020 Radiologic exam ches t 2 views Jeniffer Ramos Work Phone: Start: 06-14-2020 Blood count complete automated Jeniffer Ramos Work Phone: Start: 06-14-2020 Fibrin dgradj produc ts d-dimer quantitative Jeniffer Ramos Work Phone: Start: 04-20-2020 Creatinine other source Dyllan Collins Work Phone: Start: 04-20-2020 Protein total xcpt refractometry urine Dyllan Collins Work Phone: Start: 04-20-2020 Assay of blood/uric acid Dyllan Collins Work Phone: Start: 04-20-2020 Renal function panel Sandy Collins Work Phone: Start: 04-04-2020 Assay of troponin quantitative Bruna Maya Work Phone: Start: 04-04-2020 Radiologic exam ches t single view Bruna Maya Work Phone: Start: 04-04-2020 Assay of troponin quantitative Bruna Maya Work Phone: Start: 04-04-2020 Basic metabolic pane l calcium total Bruna Maya Work Phone: Start: 04-04-2020 Blood count complete auto&auto difrntl wbc Bruna Maya Work Phone: Start: 02-07-2020 Screening digital br east tomosynthesis bi See Ricketts Work Phone: Start: 01-23-2020 Assay of blood/uric acid Dyllan Dennis Work Phone: Start: 10-12-2019 Creatinine other source Dyllan Collins Work Phone: Start: 10-12-2019 Protein total xcpt refractometry urine Dyllan Dennis Work Phone: Start: 10-12-2019 Renal function panel Sandy Collins Work Phone: Start: 09-09-2011 Radha lara MD Work Phone: Plan of Treatment Date Care Activity Detail Author Start: 2042 RSV Immunization for Adults (1 - 1-dose 75+ series) RSV Immunization for Adults (1 - 1-dose 75+ series) [facility] Start: 2027 RSV Immunization aged 60 or older (1 - 1-dose 60+ series) RSV Immunization aged 60 or older (1 - 1-dose 60+ series) [facility] Start: 04-19-2026 DTaP/Tdap/Td vaccine (2 - Td) DTaP/Tdap/Td vaccine (2 - Td) [place] Start: 04-19-2026 DTaP/Tdap/Td Vaccines (2 - Td or Tdap) DTaP/Tdap/Td Vaccines (2 - Td or Tdap) [facility] Start: 09-27-2025 Diabetes: Estimated Glomerular Filtration Rate for Kidney Health Diabetes: Estimated Glomerular Filtration Rate for Kidney Health [facility] Start: 08-31-2025 Lipid panel Lipid Panel [facility] Start: 08-01-2025 Diabetes: Estimated Glomerular Filtration Rate for Kidney Health Diabetes: Estimated Glomerular Filtration Rate for Kidney Health [facility] Start: 08-01-2025 Diabetes: Urine Albumin-Creatinine Ratio for Kidney Health Diabetes: Urine Albumin-Creatinine Ratio for Kidney Health [facility] Start: 08-01-2025 Diabetic foot examination Diabetes: Foot Exam [facility] Start: 08-01-2025 Glaucoma screening Diabetes: Retinopathy Screening [facility] Comment on above: Postponed from 1977 (Patient Refus ed) Start: 08-01-2025 Hemoglobin A1c measurement Diabetes: Hemoglobin A1C [facility] Start: 08-01-2025 Lipid panel Lipid Panel [facility] Start: 08-01-2025 Screening for malignant neoplasm of cervix Cervical Cancer Screening [facility] Comment on above: Postponed from 1997 (Patient Refus ed) Start: 08-01-2025 Screening for malignant neoplasm of colon Colorectal Cancer Screening [facility] Comment on above: Postponed from 1967 (Patient Refus ed) Start: 03-12-2025 Influenza vaccination Influenza Vaccine (Season Ended) [facility] Start: 02-18-2025 Diabetes: Estimated Glomerular Filtration Rate for Kidney Health Diabetes: Estimated Glomerular Filtration Rate for Kidney Health [facility] Start: 01-29-2025 Depression Monitoring Depression Monitoring [facility] Start: 01-09-2025 End: 01-09-2025 Patient encounter procedure 01/09/2025 8:00 AM EDT Office Visit [facility] [address] [place] [address] [place] [address] KatherineenthScar mendoza, DESTINATION COORDINATOR - TAX ACCOUNTING MANAGER [address] [place] [address] [place] [address] [facility] Start: 01-08-2025 Influenza vaccination Influenza Vaccine (#1) [facility] Comment on above: Postponed from 03/12/2024 (Patient Refus ed) Start: 11-10-2024 Diabetes: Estimated Glomerular Filtration Rate for Kidney Health Diabetes: Estimated Glomerular Filtration Rate for Kidney Health [facility] Start: 10-24-2024 End: 10-24-2024 Patient encounter procedure 10/24/2024 7:20 AM EDT Office Visit [facility] [address] [place] [address] [place] [address] KatherineenthScar mendoza, DESTINATION COORDINATOR - TAX ACCOUNTING MANAGER [address] [place] [address] [facility] Start: 09-02-2024 End: 08-02-2025 Alanine aminotransferase [Enzymatic activity/volume] in Serum or Plasma ALT Lab Routine Hyperlipidemia LDL goal <70 Expected: 09/02/2024 (Approximate), Expires: 08/02/2025 [facility] Work Phone: Comment on above: Expected: 09/02/2024 (Approximate), Expi res: 08/02/2025 Start: 09-02-2024 End: 08-02-2025 Aspartate aminotransferase [Enzymatic activity/volume] in Serum or Plasma AST Lab Routine Hyperlipidemia LDL goal <70 Expected: 09/02/2024 (Approximate), Expires: 08/02/2025 [facility] Comment on above: Expected: 09/02/2024 (Approximate), Expi res: 08/02/2025 Start: 09-02-2024 End: 08-02-2025 Lipid 1996 panel - Serum or Plasma Lipid panel Lab Routine Hyperlipidemia LDL goal <70 Expected: 09/02/2024 (Approximate), Expires: 08/02/2025 [facility] Comment on above: Expected: 09/02/2024 (Approximate), Expi res: 08/02/2025 Start: 08-31-2024 End: 08-31-2024 Clinical Support 08/31/2024 7:00 AM EST Clinical Support [facility] [address] [place] [address] [facility] Start: 08-26-2024 Hemoglobin A1c measurement Diabetes: Hemoglobin A1C [facility] Start: 08-26-2024 Lipid panel Lipid Panel [facility] Start: 08-01-2024 End: 07-31-2025 CBC panel - Blood by Automated count CBC Lab Routine Pancytopenia (HCC) Expected: 08/01/2024 (Approximate), Expires: 07/31/2025 [facility] Comment on above: Expected: 08/01/2024 (Approximate), Expi res: 07/31/2025 Start: 08-01-2024 End: 07-31-2025 Comprehensive metabolic 1998 panel - Serum or Plasma Comprehensive metabolic panel Lab Routine Type 2 diabetes with nephropathy (HCC) Expected: 08/01/2024 (Approximate), Expires: 07/31/2025 [facility] Comment on above: Expected: 08/01/2024 (Approximate), Expi res: 07/31/2025 Start: 08-01-2024 End: 09-28-2025 DBT Breast - bilateral screening Bilateral screening mammogram with tomosynthesis Imaging Routine Encounter for screening mammogram for malignant neoplasm of breast Expected: 08/01/2024, Expires: 09/28/2025 [facility] Comment on above: Expected: 08/01/2024, Expires: Start: 08-01-2024 End: 07-31-2025 Hemoglobin A1c measurement Hemoglobin A1c Lab Routine Type 2 diabetes with nephropathy (HCC) Expected: 08/01/2024 (Approximate), Expires: 07/31/2025 [facility] [employer] Comment on above: Expected: 08/01/2024 (Approximate), Expi res: 07/31/2025 Start: 08-01-2024 End: 07-31-2025 Lipid 1996 panel - Serum or Plasma Lipid panel Lab Routine Hyperlipidemia LDL goal <70 Expected: 08/01/2024 (Approximate), Expires: 07/31/2025 [facility] [employer] Comment on above: Expected: 08/01/2024 (Approximate), Expi res: 07/31/2025 Start: 08-01-2024 End: 07-31-2025 Microalbumin/Creatinine panel in random Urine Microalbumin / creatinine, urine ratio Lab Routine Type 2 diabetes with nephropathy (HCC) Expected: 08/01/2024 (Approximate), Expires: 07/31/2025 [facility] [employer] [facility] Work Phone: Comment on above: Expected: 08/01/2024 (Approximate), Expi res: 07/31/2025 Start: 05-13-2024 Glaucoma screening Diabetes: Retinopathy Screening [facility] Comment on above: Postponed from 1977 (Other Patient Reasons) Start: 05-13-2024 Screening for malignant neoplasm of cervix Cervical Cancer Screening [facility] Comment on above: Postponed from 1997 (Other Patient Reasons) Start: 05-12-2024 Screening for malignant neoplasm of colon Colorectal Cancer Screening [facility] Comment on above: Postponed from 1967 (Other Patient Reasons) Start: 04-12-2024 End: 04-12-2024 Patient encounter procedure [facility] Start: 03-12-2024 Influenza vaccination [facility] [employer] Start: 02-24-2024 Depression Monitoring Depression Monitoring [facility] Start: 02-24-2024 Depresssion Monitoring Depresssion Monitoring [facility] Start: 02-23-2024 Hemoglobin A1c measurement Diabetes: Hemoglobin A1C [facility] Start: 12-24-2023 End: 12-24-2023 Patient encounter procedure 12/24/2023 7:00 AM EDT Office Visit [facility] [address] [place] [address] Bridenthal, Scar, DESTINATION COORDINATOR - TAX ACCOUNTING MANAGER [address] [place] [address] [place] [address] [facility] Start: 12-10-2023 Diabetic foot examination Diabetes: Foot Exam [facility] Start: 12-02-2023 End: 12-02-2023 Patient encounter procedure 12/02/2023 8:00 AM EDT Office Visit [facility] [address] [place] [address] [place] [address] KatherineenthScar mendoza, DESTINATION COORDINATOR - TAX ACCOUNTING MANAGER [address] [place] [address] [place] [address] [facility] Start: 11-25-2023 End: 11-25-2023 Patient encounter procedure 11/25/2023 8:00 AM EDT Office Visit [facility] [address] [place] [address] [place] [address] Scar Seymour, DESTINATION COORDINATOR - TAX ACCOUNTING MANAGER [address] [place] [address] [place] [address] [facility] Start: 11-11-2023 End: 11-10-2024 Basic metabolic 1998 panel - Serum or Plasma Basic metabolic panel Lab Routine Hyponatremia Expected: 11/11/2023 (Approximate), Expires: 11/10/2024 [facility] Work Phone: Comment on above: Expected: 11/11/2023 (Approximate), Expi res: 11/10/2024 Start: 11-11-2023 End: 11-11-2023 Patient encounter procedure 11/11/2023 7:20 AM EDT Office Visit [facility] [address] [place] [address] [place] [address] Scar Seymour, DESTINATION COORDINATOR - TAX ACCOUNTING MANAGER [address] [place] [address] [place] [address] [facility] Start: 10-13-2023 End: 10-13-2023 Patient encounter procedure 10/13/2023 11:00 AM EDT Office Visit [facility] [address] [facility] [place] [phone] Angel Juan MD [address] [place] [address] [facility] Start: 09-30-2023 End: 09-30-2023 Patient encounter procedure 09/30/2023 8:30 AM EDT Appointment [facility] [address] [place] [address] Angel Juan MD [address] [place] [address] [facility] Start: 09-29-2023 End: 09-21-2024 CBC W Auto Differential panel - Blood CBC auto differential Lab Routine Pancytopenia (HCC) Expected: 09/29/2023 (Approximate), Expires: 09/21/2024 [facility] Work Phone: Comment on above: Expected: 09/29/2023 (Approximate), Expi res: 09/21/2024 Start: 09-29-2023 End: 09-21-2024 Lactate dehydrogenase [Enzymatic activity/volume] in Serum or Plasma by Lactate to pyruvate reaction Lactate dehydrogenase Lab Routine Pancytopenia (HCC) Expected: 09/29/2023 (Approximate), Expires: 09/21/2024 [facility] Comment on above: Expected: 09/29/2023 (Approximate), Expi res: 09/21/2024 Start: 09-22-2023 End: 09-21-2024 Cobalamin (Vitamin B12) [Mass/volume] in Serum or Plasma Vitamin B12 Lab Routine Pancytopenia (HCC) Expected: 09/22/2023 (Approximate), Expires: 09/21/2024 [facility] Comment on above: Expected: 09/22/2023 (Approximate), Expi res: 09/21/2024 Start: 09-22-2023 End: 09-21-2024 Comprehensive metabolic 1998 panel - Serum or Plasma Comprehensive metabolic panel Lab Routine Pancytopenia (HCC) Expected: 09/22/2023 (Approximate), Expires: 09/21/2024 [facility] [employer] Comment on above: Expected: 09/22/2023 (Approximate), Expi res: 09/21/2024 Start: 09-22-2023 End: 09-21-2024 Copper, serum Copper, serum Lab Routine Pancytopenia (HCC) Expected: 09/22/2023 (Approximate), Expires: 09/21/2024 [facility] Comment on above: Expected: 09/22/2023 (Approximate), Expi res: 09/21/2024 Start: 09-22-2023 End: 09-21-2024 Ferritin [Mass/volume] in Serum or Plasma Ferritin Lab Routine Pancytopenia (HCC) Expected: 09/22/2023 (Approximate), Expires: 09/21/2024 [facility] Comment on above: Expected: 09/22/2023 (Approximate), Expi res: 09/21/2024 Start: 09-22-2023 End: 09-21-2024 Folate [Mass/volume] in Serum or Plasma Folate Lab Routine Pancytopenia (HCC) Expected: 09/22/2023 (Approximate), Expires: 09/21/2024 [facility] [employer] Comment on above: Expected: 09/22/2023 (Approximate), Expi res: 09/21/2024 Start: 09-22-2023 End: 09-21-2024 Homocysteine, serum Homocysteine, serum Lab Routine Pancytopenia (HCC) Expected: 09/22/2023 (Approximate), Expires: 09/21/2024 [facility] Comment on above: Expected: 09/22/2023 (Approximate), Expi res: 09/21/2024 Start: 09-22-2023 End: 09-21-2024 Immunofixation Electrophoresis Immunofixation Electrophoresis Lab Routine Pancytopenia (HCC) Expected: 09/22/2023 (Approximate), Expires: 09/21/2024 [facility] Comment on above: Expected: 09/22/2023 (Approximate), Expi res: 09/21/2024 Start: 09-22-2023 End: 09-21-2024 Iron and Iron binding capacity panel - Serum or Plasma Iron and TIBC Lab Routine Pancytopenia (HCC) Expected: 09/22/2023 (Approximate), Expires: 09/21/2024 [employer] [employer] [facility] [employer] Comment on above: Expected: 09/22/2023 (Approximate), Expi res: 09/21/2024 Start: 09-22-2023 End: 09-21-2024 Methylmalonate [Moles/volume] in Serum or Plasma Methylmalonic acid, serum Lab Routine Pancytopenia (HCC) Expected: 09/22/2023 (Approximate), Expires: 09/21/2024 [facility] [employer] Comment on above: Expected: 09/22/2023 (Approximate), Expi res: 09/21/2024 Start: 09-22-2023 End: 09-21-2024 Protein, Total and Protein Electrophoresis Protein, Total and Protein Electrophoresis Lab Routine Pancytopenia (HCC) Expected: 09/22/2023 (Approximate), Expires: 09/21/2024 [facility] [employer] Comment on above: Expected: 09/22/2023 (Approximate), Expi res: 09/21/2024 Start: 09-22-2023 End: 09-21-2024 Reticulocytes panel - Blood Reticulocytes Lab Routine Pancytopenia (HCC) Expected: 09/22/2023 (Approximate), Expires: 09/21/2024 [employer] Comment on above: Expected: 09/22/2023 (Approximate), Expi res: 09/21/2024 Start: 09-22-2023 End: 09-21-2024 US Abdomen US abdomen complete Imaging Routine Pancytopenia (HCC) Expected: 09/22/2023, Expires: 09/21/2024 [facility] [employer] [facility] [employer] Comment on above: Expected: 09/22/2023, Expires: Start: 09-22-2023 End: 09-22-2023 Patient encounter procedure 09/22/2023 9:15 AM EDT Office Visit [facility] [address] [place] [phone] Angel Juan MD [address] [facility] [address] [place] [address] [facility] Start: 08-26-2023 End: 08-26-2024 Bacteria identified in Urine by Culture Urine culture (clean catch) Microbiology Routine Urinary tract infection symptoms Expected: 08/26/2023 (Approximate), Expires: 08/26/2024 [facility] [employer] Comment on above: Expected: 08/26/2023 (Approximate), Expi res: 08/26/2024 Start: 08-26-2023 End: 08-26-2024 CBC panel - Blood by Automated count CBC Lab Routine Lymphopenia Expected: 08/26/2023 (Approximate), Expires: 08/26/2024 [facility] [employer] Comment on above: Expected: 08/26/2023 (Approximate), Expi res: 08/26/2024 Start: 08-26-2023 End: 08-26-2024 Comprehensive metabolic 1998 panel - Serum or Plasma Comprehensive metabolic panel Lab Routine Type 2 diabetes mellitus with polyneuropathy (HCC) Essential hypertension Expected: 08/26/2023 (Approximate), Expires: 08/26/2024 [facility] [employer] [facility] Work Phone: Comment on above: Expected: 08/26/2023 (Approximate), Expi res: 08/26/2024 Start: 08-26-2023 End: 10-24-2024 DBT Breast - bilateral screening Bilateral screening mammogram with tomosynthesis Imaging Routine Encounter for screening mammogram for malignant neoplasm of breast Expected: 08/26/2023, Expires: 10/24/2024 [facility] [employer] Comment on above: Expected: 08/26/2023, Expires: Start: 08-26-2023 End: 08-26-2024 Hemoglobin A1c measurement Hemoglobin A1c Lab Routine Type 2 diabetes mellitus with polyneuropathy (HCC) Expected: 08/26/2023 (Approximate), Expires: 08/26/2024 [facility] [employer] Comment on above: Expected: 08/26/2023 (Approximate), Expi res: 08/26/2024 Start: 08-26-2023 End: 08-26-2024 Lipid 1996 panel - Serum or Plasma Lipid panel Lab Routine Hyperlipidemia LDL goal <70 Expected: 08/26/2023 (Approximate), Expires: 08/26/2024 [facility] Comment on above: Expected: 08/26/2023 (Approximate), Expi res: 08/26/2024 Start: 08-26-2023 End: 08-26-2024 Microalbumin/Creatinine panel in random Urine Microalbumin / creatinine, urine ratio Lab Routine Type 2 diabetes mellitus with polyneuropathy (HCC) Expected: 08/26/2023 (Approximate), Expires: 08/26/2024 [facility] Comment on above: Expected: 08/26/2023 (Approximate), Expi res: 08/26/2024 Start: 08-20-2023 End: 08-20-2023 Patient encounter procedure 08/20/2023 10:30 AM EST Office Visit [facility] [address] [place] [address] [phone] See Ricketts MD [address] [place] [id number] [facility] Start: 03-12-2023 COVID-19 Vaccine ( season) COVID-19 Vaccine ( season) [facility] Start: 03-12-2023 Influenza vaccination Influenza Vaccine (#1) [facility] Start: 02-22-2023 End: 02-17-2024 CBC W Auto Differential panel - Blood CBC auto differential Lab Routine Lymphopenia Thrombocytopenia (HCC) Expected: 02/22/2023 (Approximate), Expires: 02/17/2024 [facility] Work Phone: Comment on above: Expected: 02/22/2023 (Approximate), Expi res: 02/17/2024 Start: 02-22-2023 End: 02-17-2024 Hemoglobin A1c/Hemoglobin.total in Blood Hemoglobin A1c Lab Routine Type 2 diabetes mellitus with polyneuropathy (HCC) Expected: 02/22/2023 (Approximate), Expires: 02/17/2024 [facility] Comment on above: Expected: 02/22/2023 (Approximate), Expi res: 02/17/2024 Start: 02-22-2023 End: 02-17-2024 Peripheral blood smear Peripheral blood smear Pathology and Cytology Routine Lymphopenia Expected: 02/22/2023 (Approximate), Expires: 02/17/2024 [facility] Comment on above: Expected: 02/22/2023 (Approximate), Expi res: 02/17/2024 Start: 02-22-2023 End: 02-22-2023 Clinical Support 02/22/2023 10:00 AM EDT Clinical Support [facility] [address] [place] [address] [facility] Start: 02-09-2023 Screening for malignant neoplasm of breast Mammogram [facility] Start: 12-23-2022 End: 12-23-2022 Patient encounter procedure 12/23/2022 Office Visit Family Medicine Scar Seymour DESTINATION COORDINATOR - TAX ACCOUNTING MANAGER [address] [place] [address] [facility] Start: 12-09-2022 End: 12-10-2023 Microalbumin/Creatinine panel in random Urine Microalbumin / creatinine urine ratio Lab Routine Type 2 diabetes mellitus with polyneuropathy (HCC) Expected: 12/09/2022 (Approximate), Expires: 12/10/2023 [facility] Work Phone: Comment on above: Expected: 12/09/2022 (Approximate), Expi res: 12/10/2023 Start: 12-09-2022 End: 12-09-2022 Patient encounter procedure 12/09/2022 Office Visit Family Medicine Scar Seymour, DESTINATION COORDINATOR - TAX ACCOUNTING MANAGER [address] [place] [address] [facility] Start: 04-16-2022 Diabetes: Urine Albumin-Creatinine Ratio for Kidney Health Diabetes: Urine Albumin-Creatinine Ratio for Kidney Health [facility] Start: 04-16-2022 Lipid panel Lipid Panel [facility] Start: 04-16-2022 Urine screening for protein Diabetes: Urine Protein Screening [facility] Start: 03-31-2022 Hemoglobin A1c measurement Diabetes: Hemoglobin A1C [facility] Start: 03-07-2022 [facility] Work Phone: Start: 02-06-2022 Screening for malignant neoplasm of breast Breast cancer screen [place], [place] Start: 01-01-2022 COVID-19 Vaccine (3 - Booster for Pfizer series) COVID-19 Vaccine (3 - Booster for Pfizer series) [facility] Start: 01-01-2022 COVID-19 Vaccine (3 - Pfizer series) COVID-19 Vaccine (3 - Pfizer series) [facility] Start: 09-08-2021 Colon cancer screen colonoscopy Colon cancer screen colonoscopy [place], [place] Start: 09-08-2021 Screening for malignant neoplasm of colon [facility] Start: 07-10-2021 Diabetic retinal exam Diabetic retinal exam [place], [place] Start: 06-30-2021 Hemoglobin A1c measurement Diabetes: Hemoglobin A1C [facility] Start: 04-20-2021 Creatinine measurement Creatinine monitoring [place], [place] Start: 04-20-2021 Potassium monitoring Potassium [place] Start: 02-18-2021 Cervical cancer screen Cervical cancer [place] Start: 02-18-2021 Screening for malignant neoplasm of cervix Cervical cancer [place] Start: 01-14-2021 Creatinine measurement Creatinine monitoring [place], [place] Start: 01-14-2021 Diabetic foot examination Diabetic [place] exam [place] Start: 01-14-2021 HbA1c (Bld) [Mass fraction] A1C test (Diabetic or Prediabetic) [place] Start: 01-14-2021 Lipid panel Lip[place] Start: 01-14-2021 Potassium monitoring Pot[place] Start: 01-10-2021 Hepatitis B vaccine (1 of 3 - Risk 3-dose series) Hepatitis B vaccine (1 of 3 - Risk 3-dose series) [place] Comment on above: Postponed from 1986 (Patient Refus ed) Start: 01-10-2021 Pneumococcal 0-64 years Vaccine (1 of 1 - PPSV23) Pneumococcal 0-64 years Vaccine (1 of 1 - PPSV23) [place] Comment on above: Postponed from 1973 (Patient Refus ed) Start: 08-19-2020 End: 08-19-2020 Office Visit 08/19/2020 Office Visit Endocrinology Alverto Orta DO [address] [place], [place] [id number] Endocrinology LM Start: 08-13-2020 HbA1c (Bld) [Mass fraction] A1C test (Diabetic or Prediabetic) [place] Start: 07-16-2020 End: 07-16-2020 Office Visit 07/16/2020 Office Visit Family Medicine See Ricketts MD [address], [place] [address] [phone] [facility] Start: 07-14-2020 A1C test (Diabetic or Prediabetic) A1C test (Diabetic or Prediabetic) [place] Start: 07-14-2020 Creatinine monitoring Creatinine monitoring [place] Start: 07-14-2020 Potassium monitoring Pot[place] Start: 05-13-2020 End: 05-13-2020 Office Visit Endocrinology LM Start: 04-20-2020 Breast cancer screen Breast cancer screen [place] Start: 04-20-2020 Screening for malignant neoplasm of breast Breast cancer [place] Start: 04-13-2020 [object Object] Diabetic foot exam [place] Start: 04-13-2020 Lipid screen Lipid [place] Start: 03-12-2020 Influenza vaccination Flu vaccine (#1) [place] Start: 02-11-2020 HIV screen HIV screen [place] Comment on above: Postponed from 1982 (Patient Refus ed) Start: 02-11-2020 HIV screening HIV screen [place] Comment on above: Postponed from 1982 (Patient Refus ed) Start: 02-11-2020 Shingles Vaccine (1 of 2) Shingles Vaccine (1 of 2) [place] Comment on above: Postponed from 2017 (Patient Refus ed) Start: 02-07-2020 End: 02-07-2020 Appointment 02/07/2020 Appointment Radiology See Ricketts MD [address], [place] [address] [phone] [facility] Start: 01-15-2020 End: 01-15-2020 Office Visit [facility] Start: 12-24-2019 Hepatitis B vaccine (1 of 3 - Risk 3-dose series) Hepatitis B vaccine (1 of 3 - Risk 3-dose series) [place] Comment on above: Postponed from 1986 (Patient Refus ed) Start: 10-13-2019 Pneumococcal 0-64 years Vaccine (1 of 1 - PPSV23) Pneumococcal 0-64 years Vaccine (1 of 1 - PPSV23) [place] Comment on above: Postponed from 1973 (Patient Refus ed) Start: 2017 Shingles Vaccine (1 of 2) Shingles Vaccine (1 of 2) [place] Start: 2017 Zoster Vaccines (1 of 2) Zoster Vaccines (1 of 2) [facility] Start: 1997 Screening for malignant neoplasm of cervix [facility] Start: 1988 Screening for malignant neoplasm of cervix Pap Smear [facility] Start: 1986 Hepatitis A Vaccines (1 of 2 - Risk 2-dose series) Hepatitis A Vaccines (1 of 2 - Risk 2-dose series) [facility] Start: 1986 Hepatitis B Vaccines (1 of 3 - 19+ 3-dose series) Hepatitis B Vaccines (1 of 3 - 19+ 3-dose series) [facility] Start: 1986 Pneumococcal Vaccine: 50+ Years (1 of 2 - PCV) Pneumococcal Vaccine: 50+ Years (1 of 2 - PCV) [facility] Start: 1985 Hepatitis C screening Hepatitis C Screening [facility] Start: 1982 HIV screening HIV screen [place], [place] Start: 1979 Depresssion Monitoring Depresssion Monitoring [facility] Start: 1977 Diabetic foot examination Diabetes: Foot Exam [facility] Start: 1977 Glaucoma screening Diabetes: Retinopathy Screening [facility] Start: 1977 Preventive dental service Diabetes: Dental Exam [facility] Start: 1973 Pneumococcal Vaccine: Pediatrics (0 to 5 Years) and At-Risk Patients (6 to 64 Years) (1 - PCV) Pneumococcal Vaccine: Pediatrics (0 to 5 Years) and At-Risk Patients (6 to 64 Years) (1 - PCV) [facility] Start: 1973 Pneumococcal Vaccine: Pediatrics (0 to 5 Years) and At-Risk Patients (6 to 64 Years) (1 of 2 - PCV) Pneumococcal Vaccine: Pediatrics (0 to 5 Years) and At-Risk Patients (6 to 64 Years) (1 of 2 - PCV) [facility] Start: 1968 MMR Vaccines (1 of 1 - Standard series) MMR Vaccines (1 of 1 - Standard series) [facility] Start: 1967 Hepatitis B Vaccines (1 of 3 - 3-dose series) Hepatitis B Vaccines (1 of 3 - 3-dose series) [facility] Start: 1967 HIV screening HIV Screening [facility] Start: 1967 Screening for malignant neoplasm of colon [facility] Copper, serum Copper, serum La b Routine Pancytopenia (HCC) 09/30/2023 8:27 AM EDT [facility] ECG 12 lead ECG 12 lead CV E CG STAT 02/13/2023 7:54 PM EDT [facility] Work Phone: EKG 12 Lead - Chest Pain EKG 12 Lead - Chest Pain ECG STAT 04/04/2020 3:37 PM EDT [facility] [place], [place] IgG, IgA, IgM IgG, IgA, IgM La b Routine Pancytopenia (HCC) Ordered: 09/22/2023 [facility] Comment on above: Ordered: 09/22/2023 Immunofixation Electrophoresis Immunofixation Electrophoresis Lab Routine Pancytopenia (HCC) Ordered: 09/22/2023 [facility] Comment on above: Ordered: 09/22/2023 Immunofixation Electrophoresis Immunofixation Electrophoresis Lab Routine Pancytopenia (HCC) 09/30/2023 8:27 AM EDT [facility] Methylmalonate [Moles/volume] in Serum or Plasma Methylmalonic acid, serum Lab Routine Pancytopenia (HCC) 09/30/2023 8:27 AM EDT [facility] OUTSIDE PROCEDURE SCAN OUTSIDE P ROCEDURE SCAN Procedures Ordered: 09/29/2023 [facility] Comment on above: Ordered: 09/29/2023 Patient Education ED Chest Pain, Uncertain Cause [facility] Work Phone: Patient referral [facility] Work Phone: Protein [Mass/volume ] in Serum or Plasma Protein, total Lab Routine Pancytopenia (HCC) Ordered: 09/22/2023 [facility] Comment on above: Ordered: 09/22/2023 Protein, Total and Protein Electrophoresis Protein, Total and Protein Electrophoresis Lab Routine Pancytopenia (HCC) 09/30/2023 8:27 AM EDT [facility] Serum Electrophoresis Serum Elec trophoresis Lab Routine Pancytopenia (HCC) Ordered: 09/22/2023 [facility] Comment on above: Ordered: 09/22/2023 End: 09-30-2023 US Abdomen [facility] Comment on above: Once for 1 Occurrences starting 09/30/19 24 until 09/30/2023 Immunizations Immunization Date Immunization Notes Care Provider [facility] 05-21-2022 influenza, injectabl e, quadrivalent, preservative free Scar Bridenthal DESTINATION COORDINATOR - TAX ACCOUNTING MANAGER Work Phone: [facility] 05-21-2022 influenza virus vaccine, unspecified formulation See Ricketts MD Work Phone: [facility] 11-06-2021 Covid-19, Pfizer Gra y Top, Do Not Dilute, (Age 12 Y+), Im, L Scar Bridenthal DESTINATION COORDINATOR - TAX ACCOUNTING MANAGER Work Phone: [facility] 06-30-2021 Covid (Pfizer) [facility] Work Phone: 06-09-2021 Covid (Pfizer) [facility] Work Phone: 04-25-2021 influenza, injectabl e, quadrivalent, preservative free Scar Bridenthal DESTINATION COORDINATOR - TAX ACCOUNTING MANAGER Work Phone: [facility] 04-08-2020 influenza, injectabl e, quadrivalent, contains preservative [facility] 07-14-2019 influenza, injectabl e, quadrivalent, contains preservative [facility] 04-13-2018 influenza virus vaccine, unspecified formulation [facility] 04-16-2017 influenza virus vaccine, unspecified formulation [facility] 05-06-2016 Influenza Vaccine, unspecified formulation [facility] [place] 05-06-2016 influenza, seasonal, injectable Scar Seymour DESTINATION COORDINATOR - TAX ACCOUNTING MANAGER Work Phone: [facility] 04-19-2016 tetanus toxoid, reduced diphtheria toxoid, and acellular pertussis vaccine, adsorbed [facility], [place] 04-20-2015 influenza virus vaccine, whole virus [facility] 04-19-2014 influenza virus vaccine, unspecified formulation [facility] Payers Date Payer Category Payer Self-pay [id number] 2023 [facility] Managed Care - O [id number] 2023 Unknown [id number] 2023 Private Health Insurance [facility] [id number] 2023 Unknown 2022 Medicaid [employer] [employer] [place] [employer] ODM [id number] 2022-Present [phone] [place] [id number] Medicaid HMO [id number] 2020 Unknown [id number] 2018 Private Health Insurance [facility] PLU xxxxxxxxx 2018-Present [id number] [place] [phone] [id number] 2018 Private Health Insurance [facility] PLU [id number] 2018-Present [id number] [place] [phone] [id number] 2018 Private Health Insurance [id number] 1967 Unknown [id number] 668 Unknown [facility] [id number] Unknown [id number]. 462 Unknown [id number] 462 Unknown [id number]. 462 Unknown [id number] 2.840.1.295643.3.579.2. 462 Unknown [id number]. 462 Unknown [id number]. 462 Unknown [id number] 2.16.840.1.057704.3.579.2. 462 Unknown [id number] 2.16.840.1.902473.3.579.2. 462 Unknown [id number] 2.16.840.1.467659.3.579.2. 462 Unknown [id number] 2.16.840.1.341061.3.579.2. 462 Unknown [id number]. 462 Unknown [id number] 2.16.840.1.214592.3.579.2. 462 Unknown [id number]. 462 Unknown [id number]. 462 Unknown [id number]. 462 Social History Date Type Detail Facility Start: 08-08-2019 End: 08-01-2024 Tobacco smoking status NHIS Former smoker [facility] End: 09-01-2013 History of tobacco use Current smoker [place] Start: 08-08-2019 End: 08-01-2024 Cigarettes smoked current (pack per day) - Reported [facility] Start: 08-08-2019 Alcohol intake Current non-drinker of alcohol (finding) [place] Start: 1965 Sex Assigned At Female [place] Exposure to SARS-CoV -2 (event) Unable to assess [place] Start: 01-15-2020 End: 08-01-2024 Tobacco use and exposure Never used [facility] Start: 01-15-2020 End: 10-24-2024 [facility] Start: 01-11-2020 End: 12-07-2022 History SDOH Alcohol Frequency 1 [place] Start: 01-11-2020 History SDOH Financial 5 [place] Start: 01-11-2020 History SDOH Transport Med [address] [facility] Start: 11-27-2022 End: 03-15-2023 Exposure to SARS-CoV-2 (event) Not sure [facility] Exposure to SARS-CoV -2 (event) Yes [facility] Start: 06-05-2021 End: 04-08-2022 Tobacco smoking status NHIS Unknown if ever smoked [facility] Work Phone: Start: 08-06-2020 Cigarettes;Cigars [facility] Work Phone: End: 09-01-2013 History of tobacco use Cigarette Smoker [facility] Start: 12-07-2022 History SDOH Alcohol Std Drinks 0 [facility] [employer] Start: 12-07-2022 End: 08-01-2024 Alcohol Use Disorder Identification Test - Consumption [AUDIT-C] [facility] [employer] How often to you hav e a drink containing alcohol? Never [employer] How many standard dr inks containing alcohol do you have on a typical day? Patient does not drink [facility] [employer] How hard is it for y ou to pay for the very basics like food, housing, medical care, and heating [facility] hard [facility] Start: 04-30-2022 Gender identity Identifies as female gender (finding) [employer] (I/We) worried wheth er (my/our) food would run out before (I/we) got money to buy more. Never true [employer] In the past 12 month s, was there a time when you were not able to pay the mortgage or rent on time? No [employer] Start: 02-09-2022 Sex Female (finding) [facility] [employer] Medical Equipment Procedure Code Equipment Code Equipment Origin al Text Equipment Identifier Dates use as directed three times a day [id number] Start: 08-31-2019 1 each by Does n ot apply route 2 times daily (before meals) [id number] Start: 08-08-2018 1 each by Does n ot apply route 4 times daily [id number] Start: 10-18-2017 1 each by In Vit ro route 4 times daily [id number] Start: 05-17-2020 Unifine Pentips 31G X 8 MM [facility] [id number] Start: 10-20-2022 End: 08-26-2023 Use as directed with insulin pen [id number] Start: 08-26-2023 End: 05-28-2024 Use as directed with insulin pen [id number] Start: 05-29-2024 End: 08-02-2024 Use as directed with insulin pen [id number] Start: 08-02-2024 Goals Date Patient Goal Desired [...] Assessment Result Facility 03-06-2022 Cognitive function Awake;[facility] Work Phone: Clinical Notes 12-07-2022 to 10-24-2024 Assessment & Plan Note - NICOLE Easley CNP - 10/24/2024 10:01 AM EDTAssessment & Plan Note - NICOLE Easley CNP - 10/24/2024 10:01 AM EDTPatient Instructions Note Date & Type Note Facility 10-24-2024 Evaluation + Plan note Associated Problem(s): Pain management Continue with pain management as directed. [facility] 10-24-2024 Miscellaneous Notes Associated Problem(s): Pain management [...] activity as tolerated. documented in this encounter [facility] 10-24-2024 Evaluation + Plan note Associated Problem(s): Vitamin B 12 deficiency Continue b12 injections [facility] 10-24-2024 Evaluation + Plan note Associated Problem(s): Pancytopenia (HCC) Follow-up with hematology as directed. [facility] 10-24-2024 Evaluation + Plan note Associated Problem(s): Major depressive disorder, single episode, unspecified Continue bupropion xl 300 mg and Buspar 10 mg twice daily. Recommend counseling services. [facility] 10-24-2024 Note Continue bupropion x l 300 mg and Buspar 10 mg twice daily. Recommend counseling services. [facility] 10-24-2024 Evaluation + Plan note Associated Problem(s): Diabetic nephropathy associated with type 2 diabetes mellitus (HCC) Stable. Get diabetes under control. Blood pressures are good T [facility] 10-24-2024 Evaluation + Plan note Associated Problem(s): Other cirrhosis of liver (HCC) Stable. Follow up with gastroenterology as scheduled T [facility] 10-24-2024 Evaluation + Plan note Associated Problem(s): [...] order to get better control of diabetes. [facility] 10-24-2024 Evaluation + Plan note Associated Problem(s): Anxiety Stable. Continue Wellbutrin 300 mg daily, BuSpar 10 mg twice daily. Recommend establishing with counselor [facility] 10-24-2024 Evaluation + Plan note Associated Problem(s): Essential hypertension Controlled. Blood pressure 124/72. Continue labetalol 100 mg twice daily. Has not tolerated CLAUDY inhibitors in the past, consider ARB [facility] 10-24-2024 Evaluation + Plan note Associated Problem(s): Hyperlipidemia LDL goal <70 Controlled. Continue rosuvastatin 5 mg daily [facility] 10-24-2024 Evaluation + Plan note Associated Problem(s): Class 3 severe obesity due to excess calories with serious comorbidity and body mass index (BMI) of 40.0 to 44.9 in adult (HCC) Continue portion control, low carb,low fat, low cholesterol diet. Increase physical activity as tolerated. [facility] 10-24-2024 History of Present illness Narrative Patient was identified by name and Date of . Health Maintenance Due Topic Mammogram-pended Images from the original note were not included. 10/24/2024 Melanie Anita (: 1965) is a 59 y.o. 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 Increase physical activity as tolerated. [facility] SUBJECTIVE/OBJECTIVE: HPI - Melanie Carey (: 1965) [...] was supposed to start physical therapy at [facility] in [place] but was not able to get it coordinated. Did see pain management- [facility], and got a steroid injection couple weeks [...] mg) by mouth daily (with breakfast). HYDROcodone-acetaminophen (Yancey) 5-325 MG tablet TAKE 1 TABLET BY MOUTH EVERY 6 HOURS NEEDED FOR PAIN FOR 3 DAYS labetalol (Normodyne) 100 MG tablet TAKE 1 TABLET BY MOUTH IN THE MORNING AND 1 TABLET IN THE EVENING. 60 tablet 0 metFORMIN (Glucophage) 1000 MG tablet Take 1 tablet (1,000 mg) by mouth 2 times daily (with meals). 180 tablet 1 nystatin (Mycostatin) 990200 UNIT/GM powder Apply topically 2 times daily. [...] 10/24/2024 10:01 AM documented in this encounter [facility] 10-24-2024 Instructions NICOLE Easley CNP - 10/24/2024 7:20 AM EDT Send daily fasting and 2 hour after meal blood sugar readings every 3 days to in through [employer]. documented in this encounter [facility] 09-27-2024 Emergency department Note Humalog dose verified by doctor zara maddox. Per provider varsha, pt does not need the 24 units of Humalog and verbal orders with read back for 10 units of Humalog were given and verbal orders with read back for 650 mg of tylenol were in. [facility] 09-27-2024 Emergency department Note Humalog dose verified by doctor zara maddox. Per provider varsha pt does not need the 24 units of Humalog and verbal orders with read back for 10 units of Humalog were given and verbal orders with read back for 650 mg of tylenol were in. EMERGENCY DEPARTMENT ENCOUNTER Pt Name: Raiza Carey Birthdate 1965 Date of evaluation: 09/27/2024 ED Provider: Jimenez Madodx MD CHIEF COMPLAINT Chief Complaint Patient presents [...] mention of complication, not stated as uncontrolled ([facility]) Uncontrolled type 2 diabetes mellitus with complication [...] 2 times daily (with meals). NYSTATIN (MYCOSTATIN) 017701 UNIT/GM POWDER Apply topically 2 times daily. [...] Father prostate High Blood Pressure Father Other ([id number]) Sister TBI Depression Mother Substance Abuse Brother Heart disease Mother Other ([id number]) Mother Depression Brother SOCIAL HISTORY Social History [...] nursing note reviewed. Exam conducted with a elevator repairer present. Constitutional: Appearance: Normal appearance. She is [...] acute ST elevation or ST depression however. MN is prolonged although the rest of her [...] Abnormal Glucose >450 (*) Narrative: Performed by: [facility], [address] [place] [id number] CLIA ID: [id number] POCT GLUCOSE METER UNSOLICITED RESULTS - Abnormal Glucose 303 (*) Narrative: Performed by: [facility], [address] [facility] [address] CLIA ID: [id number] BETA HYDROXYBUTYRATE - Normal BETA HYDROXYBUTYRATE 2.3 MAGNESIUM - Normal MAGNESIUM 1.6 Narrative: Higher values can be expected in females during menses. COMPLETE URINALYSIS WITH REFLEX TO CULTURE Narrative: The following orders were created for panel order Urinalysis complete with reflex to Culture. Procedure Abnormality Status --------- ------ Complete Urinalysis[[id number]] Please view results for these tests on [...] PM PATIENT REFERRED TO: See Ricketts MD [address] [facility] [facility] [phone] Schedule an appointment as soon as possible [...] MD 09/27/24 1800 documented in this encounter [facility] 09-27-2024 Physician Emergency department Note EMERGENCY DEPARTMENT [...] Anxiety Arthritis Chest pain Depression Diabetic nephropathy ([facility]/HCC) (HCC) Elevated transaminase level Fatigue GERD (gastroesophageal [...] 2 times daily (with meals). NYSTATIN (MYCOSTATIN) 008281 UNIT/GM POWDER Apply topically 2 times daily. [...] Father prostate High Blood Pressure Father Other ([id number]) Sister TBI Depression Mother Substance Abuse Brother Heart disease Mother Other ([id number]) Mother Depression Brother SOCIAL HISTORY Social History [...] nursing note reviewed. Exam conducted with a elevator repairer present. Constitutional: Appearance: Normal appearance. She is [...] acute ST elevation or ST depression however. MN is prolonged although the rest of her [...] >450 (*) Narrative: Performed by: [facility], [address] [facility] [address] CLIA ID: [id number] POCT GLUCOSE METER UNSOLICITED RESULTS - Abnormal Glucose 303 (*) Narrative: Performed by: [facility], [address] [facility] [address] CLIA ID: [id number] BETA HYDROXYBUTYRATE - Normal BETA HYDROXYBUTYRATE 2.3 MAGNESIUM - Normal MAGNESIUM 1.6 Narrative: Higher values can be expected in females during menses. COMPLETE URINALYSIS WITH REFLEX TO CULTURE Narrative: The following orders were created for panel order Urinalysis complete with reflex to Culture. Procedure Abnormality Status --------- ------ Complete Urinalysis[[id number]] Please view results for these tests on [...] PM PATIENT REFERRED TO: See Ricketts MD [address] [place] [address], [address] [facility] [address] Schedule an appointment as soon as possible [...] Medicine Provider Jimenez Maddox MD 09/27/24 1800 [facility] 09-27-2024 Telephone encounter Note I messaged her through my chart. [facility] 09-27-2024 Miscellaneous Notes I messaged her through [...] any further recommendations. S: Patient spoke with [facility] nurse regarding elevated blood sugar reading. B: Onset of symptoms started overnight. She did have an injection for pain, in the right hip, on 09/26/24 at [facility]. A: Patient reports she had [...] mmol/L) Protocols used: Diabetes - High Blood Eqgbh-CRYAD-VU documented in this encounter [facility] 09-27-2024 Telephone encounter Note I will call her this evening after she gets home from work. Thanks. [facility] 09-27-2024 Telephone encounter Note Patient called back [...] further instruction. Monitor for low blood sugars. [facility] 09-27-2024 Telephone encounter Note Patient current blood [...] will call her with any further recommendations. [facility] 09-27-2024 Telephone encounter Note S: Patient spoke with [facility] nurse regarding elevated blood sugar reading. B: Onset of symptoms started overnight. She did have an injection for pain, in the right hip, on 09/26/24 at [facility]. A: Patient reports she had [...] Second level triage, via phone, with Scar Seymoru APRN, TAX ACCOUNTING MANAGER. Provider would like patient to check her [...] mmol/L) Protocols used: Diabetes - High Blood Tijif-EPSIB-BG [facility] 09-20-2024 Telephone encounter Note Reviewed chart. Refill appropriate. RX sent. [facility] 09-20-2024 Miscellaneous Notes Reviewed chart. Refill appropriate. RX sent. Prescription Request: Last medication check: 08-01-24 Last physical exam: 08-26-23 Next scheduled appointment: 10-24-24 Last date of refill on this medication 08-02-24 documented in this encounter [facility] 09-20-2024 Telephone encounter Note Prescription Request: Last medication check: 08-01-24 Last physical exam: 08-26-23 Next scheduled appointment: 10-24-24 Last date of refill on this medication 08-02-24 [facility] 08-25-2024 History of Present illness Narrative Images [...] stated that they are currently in the state [facility]. If the patient is a minor, permission [...] 08/25/2024 2:03 PM documented in this encounter [facility] 08-02-2024 Telephone encounter Note ----- Message from [...] you to know she was able to leaf size picker the Mounjaro. [facility] 08-02-2024 Miscellaneous Notes ----- Message from NICOLE [...] you to know she was able to leaf size picker the Mounjaro. documented in this encounter [facility] 08-01-2024 Evaluation + Plan note Associated Problem(s): Financial difficulty Patient reports difficulty meeting monthly rent due to recent hospitalizations of her significant other. Patient states she is okay with licensed guide reaching out to her to provide potential resources. [facility] 08-01-2024 Miscellaneous Notes Associated Problem(s): Financial difficulty Patient reports difficulty meeting monthly rent due to recent hospitalizations of her significant other. Patient states she is okay with licensed guide reaching out to her to provide potential [...] needed as directed. documented in this encounter [facility] 08-01-2024 Evaluation + Plan note Associated Problem(s): Anxiety Stable. Continue Wellbutrin 300 mg daily, BuSpar 10 mg twice daily. Recommend establishing with counselor [facility] 08-01-2024 Evaluation + Plan note Associated Problem(s): Hyperlipidemia LDL goal <70 Check lipids today, currently not on statin. [facility] 08-01-2024 Evaluation + Plan note Associated Problem(s): Essential hypertension Controlled. Blood pressure 137/81. Continue labetalol 100 mg twice daily. Has not tolerated CLAUDY inhibitors in the past, consider [facility] 08-01-2024 Evaluation + Plan note Associated Problem(s): Type 2 diabetes with nephropathy (HCC) Control unknown. Obtain hemoglobin A1c, cmp today. Continue metformin 1000 mg twice daily, glimepiride 2 mg daily and start Mounjaro 2.5 mg weekly. Patient to send provider with update when she starts the Mounjaro and provide glucose readings fasting and 2 hours postmeal in 2 weeks. [facility] 08-01-2024 Evaluation + Plan note Associated Problem(s): Obstructive sleep apnea syndrome Uncontrolled. Does not have CPAP- will need re-evaluation [facility] 08-01-2024 Evaluation + Plan note Associated Problem(s): Low platelet count (HCC) Check platelets. Established with hematology- but has not seen them in awhile d/t financial concerns [facility] 08-01-2024 Evaluation + Plan note Associated Problem(s): Other cirrhosis of liver (HCC) Stable. Consider obtaining labs to evaluate fibrosis score. Will review chart further to see if this has been completed yet. She was briefly seeing gastroenterology. [facility] 08-01-2024 Evaluation + Plan note Associated Problem(s): Class 3 severe obesity due to excess calories with serious comorbidity and body mass index (BMI) of 40.0 to 44.9 in adult (HCC) Continue portion control, low carb,low fat, low cholesterol diet. Has had about 30 lbs weight loss since 11/2023. Increase physical activity as tolerated. [facility] 08-01-2024 Evaluation + Plan note Associated Problem(s): Vitamin B 12 deficiency Last b12 level low, has not been taking b12, Restart vit b 12 injections. Will plan on checking B12 level at next visit. [facility] 08-01-2024 Evaluation + Plan note Associated Problem(s): Major depressive disorder, single episode, unspecified Currently with increased symptoms d/t increased life stress/financial concerns. Denies si/hi. Continue bupropion xl 300 mg and Buspar 10 mg twice daily. Recommend counseling services. [facility] 08-01-2024 Evaluation + Plan note Associated Problem(s): Chronic obstructive pulmonary disease (HCC) Controlled. Denies any increased shortness of breath or cough. Continue albuterol as needed as directed. [facility] 08-01-2024 History of Present illness Narrative Patient was identified by name and Date of . Health Maintenance Due Topic Diabetes: Retinopathy Screening-needs completed Pneumococcal Vaccine-declined Cervical Cancer Screening-declined Colorectal Cancer Screening-declined Diabetes: Urine Esbqdcd-Teaqzvjmwj-pvpotm Mammogram-pended Diabetes: Foot Exam-pended Depression Monitoring-NEEDS DONE Influenza Vaccine-had completed Images from the original note were not included. 08/01/2024 Melanie Carey (: 1965) is a 59 y.o. female , Established patient, here for evaluation of the following chief complaint(s): Diabetes and Health Maintenance (Diabetes: Retinopathy Screening-needs completed/Pneumococcal Vaccine-declined/Cervical Cancer Screening-declined/Colorectal Cancer Screening-declined/Diabetes: Urine Boiimmr-Jzcgyrfteh-zstgeq/Mammogra m-pended/Diabetes: Foot Exam-pended/Depression Monitoring-NEEDS DONE/Influenza Vaccine-had completed/) [...] skin 1 (one) time per week., Starting Tu08/01/2024, Normal 2. 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 Other cirrhosis of liver ([facility]) Assessment & Plan: Stable. Consider obtaining labs to evaluate fibrosis score. Will review chart further to see if this has been completed yet. She was briefly seeing gastroenterology. 10. Chronic bronchitis, unspecified chronic bronchitis type ([facility]) Assessment & Plan: Controlled. Denies any increased shortness of breath or cough. Continue albuterol as needed as directed. 11. Current mild episode of major depressive disorder without prior episode ([facility]) Assessment & Plan: Currently with increased symptoms d/t increased life stress/financial concerns. Denies si/hi. Continue bupropion xl 300 mg and Buspar 10 mg twice daily. Recommend counseling services. 12. Class 3 severe obesity due to excess calories with serious comorbidity and body mass index (BMI) of 40.0 to 44.9 in adult ([facility]) Assessment & Plan: Continue portion control, low [...] Patient states she is okay with licensed guide reaching out to her to provide potential resources. Follow up in about 3 months (around 10/30/2024) for 3 month low. SUBJECTIVE/OBJECTIVE: CATRACHITO Carey (: 1965) is a 59 y.o. female , Established patient, here for the evaluation of the following chief complaint(s): Diabetes and Health Maintenance (Diabetes: Retinopathy Screening-needs completed/Pneumococcal Vaccine-declined/Cervical Cancer Screening-declined/Colorectal Cancer Screening-declined/Diabetes: Urine Ckfbdhv-Aaecesvhic-uvxpjj/Mammogra m-pended/Diabetes: Foot Exam-pended/Depression Monitoring-NEEDS DONE/Influenza Vaccine-had completed/) Diabetes-patient currently does not have CGM. There is issues with her insurance covering it and off. She states she is going to reach out to the [facility] and see if they will be able [...] She was supposed to follow-up with a tripe washer for further evaluation however patient has not done so Medication Sig Start Date End Date Taking? Authorizing Provider albuterol 108 (90 Base) MCG/ACT inhaler Inhale 1 puff every 6 hours as needed for wheezing or shortness of breath. 08/26/23 Yes Scarbarb Bazanal, DESTINATION COORDINATOR - TAX ACCOUNTING MANAGER buPROPion XL (Wellbutrin XL) 300 MG 24 hr tablet Take 1 tablet (300 mg) by mouth daily. Do not crush, chew, or split. 03/02/24 Yes Scar Bridenthal, DESTINATION COORDINATOR - TAX ACCOUNTING MANAGER busPIRone (Buspar) 10 MG tablet Take 1 tablet by mouth twice daily 05/29/24 Yes NICOLE Easley CNP glimepiride (Amaryl) 2 MG tablet Take 1 [...] 07/19/24 Yes See Ricketts MD nystatin (Mycostatin) [id number] UNIT/GM powder Apply topically 2 times daily. [...] Patient not taking: Reported on 08/01/2024 08/26/23 ScarNICOLE Mcdermott CNP Review of Systems Constitutional: Positive for [...] 08/01/2024 5:10 PM documented in this encounter [facility] 08-01-2024 Instructions NICOLE Easley CNP - 08/01/2024 7:20 AM EST Goals for 2024 Call Hardik regarding CGM (glucose meter) Diabetes under control B12 good- will check in 3 months Sleep study Liver evaluation Let me know when or if you get the mounjaro. Check glucose fasting and 2 hours after meals - send readings through [employer] in 1-2 weeks. The following attachments cannot be sent through Care Everywhere.Neck Stretches (Qatari)documented in this encounter [facility] 06-30-2024 History of Present illness Narrative Called and spoke with Raiza. Offered appointment Wednesday next week and declined stating she will be in [place] with her who is getting testing done. [...] distress or disorientation. documented in this encounter [facility] 05-29-2024 Telephone encounter Note Reviewed chart. Refill appropriate. RX sent. [facility] 05-29-2024 Miscellaneous Notes Reviewed chart. Refill appropriate. RX sent. Prescription Request: Last medication check: 11/11/2023 Last physical exam: 08/26/2023 Next scheduled appointment: none Last date of refill on this medication: 08/26/2023 documented in this encounter [facility] 05-29-2024 Telephone encounter Note Prescription Request: Last medication check: 11/11/2023 Last physical exam: 08/26/2023 Next scheduled appointment: none Last date of refill on this medication: 01/03/2024 [facility] 05-29-2024 Miscellaneous Notes Prescription Request: Last medication check: 11/11/2023 Last physical exam: 08/26/2023 Next scheduled appointment: none Last date of refill on this medication: 01/03/2024 documented in this encounter [facility] 05-29-2024 Telephone encounter Note Prescription Request: Last medication check: 11/11/2023 Last physical exam: 08/26/2023 Next scheduled appointment: none Last date of refill on this medication: 08/26/2023 [facility] 03-02-2024 Telephone encounter Note Reviewed chart. Refill appropriate. RX sent. [facility] 03-02-2024 Miscellaneous Notes Reviewed chart. Refill appropriate. RX sent. Prescription Request: Last medication check: 11/11/23 Last physical exam: 08/26/23 Next scheduled appointment: none Last date of refill on this medication 08/26/23 documented in this encounter [facility] 03-02-2024 Telephone encounter Note Prescription Request: Last medication check: 11/11/23 Last physical exam: 08/26/23 Next scheduled appointment: none Last date of refill on this medication 08/26/23 [facility] 02-26-2024 Emergency department Note EMERGENCY DEPARTMENT ENCOUNTER [...] by mouth 2 times daily. CONTINUOUS GLUCOSE CALL CENTER TEAM LEADER (FREESTYLE LINDA 3 READER) DEVICE 1 Device [...] Father prostate High Blood Pressure Father Other ([id number]) Sister TBI Depression Mother Substance Abuse Brother Heart disease Mother Other ([id number]) Mother Depression Brother SOCIAL HISTORY Social History [...] nursing note reviewed. Exam conducted with a elevator repairer present. Constitutional: General: She is not in [...] with no significant improvement. These have been etvl-ijb-sqsbpcj agents. Patient be discharged home with a [...] AM PATIENT REFERRED TO: See Ricketts MD [address] [place] [address], [address] [facility] [id number] Schedule an appointment as soon as possible for a visit [facility] [address] [facility] [phone] If symptoms worsen DISCHARGE MEDICATIONS: New Prescriptions FLUCONAZOLE (DIFLUCAN) 100 MG TABLET Take 1 tablet (100 mg) by mouth daily for 7 days. NYSTATIN (MYCOSTATIN) [id number] UNIT/GM POWDER Apply topically 2 times daily. [...] signed) Emergency Medicine Provider Nelson Grady MD 02/26/24 0826 documented in this encounter [facility] 02-26-2024 Physician Emergency department Note EMERGENCY DEPARTMENT [...] by mouth 2 times daily. CONTINUOUS GLUCOSE CALL CENTER TEAM LEADER (FREESTYLE LINDA 3 READER) DEVICE 1 Device [...] Father prostate High Blood Pressure Father Other ([id number]) Sister TBI Depression Mother Substance Abuse Brother Heart disease Mother Other ([id number]) Mother Depression Brother SOCIAL HISTORY Social History [...] nursing note reviewed. Exam conducted with a elevator repairer present. Constitutional: General: She is not in [...] with no significant improvement. These have been sovr-lsc-wtilwyh agents. Patient be discharged home with a [...] PATIENT REFERRED TO: See Ricketts MD [address] [facility], [address] [facility] [address] Schedule an appointment as soon as possible for a visit [facility] [address] [facility] [phone] If symptoms worsen DISCHARGE MEDICATIONS: New Prescriptions FLUCONAZOLE (DIFLUCAN) 100 MG TABLET Take 1 tablet (100 mg) by mouth daily for 7 days. NYSTATIN (MYCOSTATIN) [id number] UNIT/GM POWDER Apply topically 2 times daily. [...] Emergency Medicine Provider Nelson Grady MD 02/26/24825 [facility] 02-19-2024 Emergency department Note Discharge instructions reviewed with patient. Medications, treatments, and follow up appointments discussed. IV removed. Medications completed. VS stable. All questions answered. Patient verbalized understanding. Kandis Belcher RN 02/19/241924 [facility] 02-19-2024 Emergency department Note Discharge instructions reviewed with patient. Medications, treatments, and follow up appointments discussed. IV removed. Medications completed. VS stable. All questions answered. Patient verbalized understanding. Kandis Belcher RN 02/19/241924 NIH not needed per provider Tiffany Aggarwal, originally done as baseline. OK to discontinue. Order not found. Provider aware. Kandis Belcher RN 02/19/24 297 Pt was seen in the ED for [...] resp easy non labored. Kandis Belcher RN 02/19/24 192 Patient presents for head and neck pain that started yesterday evening. States she can barely move her neck due to pain. States the last time she had a headache this bad was several years ago when she had COVID. Denies known injury. States she has been taking Tylenol without relief of symptoms. documented in this encounter [facility] 02-19-2024 Hospital Discharge instructions NICOLE Saleh CNP [...] sent through Care Everywhere.Headache Discharge Instructions, Adult (Qatari)documented in this encounter [facility] 02-19-2024 Emergency department Note NIH not needed per provider Tiffany Aggarwal, originally done as baseline. OK to discontinue. Order not found. Provider aware. Kandis Belcher RN 02/19/24 1722 [facility] 02-19-2024 Emergency department Note Pt was seen [...] easy non labored. Kandis Belcher RN 02/19/241924 [facility] 02-19-2024 Emergency department Triage note Patient presents for head and neck pain that started yesterday evening. States she can barely move her neck due to pain. States the last time she had a headache this bad was several years ago when she had COVID. Denies known injury. States she has been taking Tylenol without relief of symptoms. [facility] 01-03-2024 Telephone encounter Note Reviewed chart. Refill appropriate. RX sent. [facility] 01-03-2024 Miscellaneous Notes Reviewed chart. Refill appropriate. RX sent. Prescription Request: Last medication check: not found Last physical exam: 08/26/2023 Last completed appointment: 11/11/2023 Next scheduled appointment: none Last date of refill on this medication: Buspar: 08/26/2023 w/3 refills Metformin: 10/13/2023 w/3 refills Labetalol: 08/26/2023 w/3 refills documented in this encounter [facility] 01-03-2024 Telephone encounter Note Prescription Request: Last medication check: not found Last physical exam: 08/26/2023 Last completed appointment: 11/11/2023 Next scheduled appointment: none Last date of refill on this medication: Buspar: 08/26/2023 w/3 refills Metformin: 10/13/2023 w/3 refills Labetalol: 08/26/2023 w/3 refills [facility] 12-23-2023 History of Present illness Narrative This [...] the past. Order sent to pharmacy per [place] guidelines, may require PA documented in this encounter [facility] 12-13-2023 Hospital Discharge instructions Vani Salas PA-C [...] Care Everywhere.Low Blood Sugar Discharge Instructions, Adult (Qatari)Low Blood Sugar in People With Diabetes (Qatari)documented in this encounter [facility] 12-13-2023 Emergency department Note Emergency Department Encounter [facility] Patient: Melanie Carey : 1965 Date [...] dictating provider for clarification.) Victorino Akins MD [facility] Victorino Akins MD 12/13/231957 Patient endorses recurrent hypoglycemia despite taking glucose tabs. BGC: 80mg/dL in triage. Provided orange juice at this time. documented in this encounter [facility] 12-13-2023 Emergency department Triage note Patient endorses recurrent hypoglycemia despite taking glucose tabs. BGC: 80mg/dL in triage. Provided orange juice at this time. [facility] 12-13-2023 Physician Emergency department Note Emergency Department Encounter [facility] Patient: Melanie Carey : 1965 Date [...] for clarification.) Victorino Akins MD [email or web address] Victorino Akins MD 12/13/231957 [employer] Phone: 12-04-2023 Emergency department Note [facility] eMERGENCY dEPARTMENT eNCOUnter Pt Name: Melanie [...] the emergency department. Patient presents with a efspm-cx-ojxe glucose of 133. She got concerned as [...] times daily., Starting Wed08/26/2023, Normal Continuous Glucose Lumber Puller (FreeStyle Linda 3 [place]) device 1 Device daily., Starting Wed11/16/2023, Normal [...] tablet (100 mg) in the evening., Starting Rianna 08/26/2023, Normal metFORMIN (Glucophage) 1000 MG tablet Take 1 tablet (1,000 mg) by mouth in the morning and 1 tablet (1,000 mg) in the evening. Take with meals., Starting 10/13/2023, Normal Unifine Pentips 31G X 8 MM misc Use as directed with insulin pen, Normal Cat hair extract, Lisinopril, and Pollen extract FAMILY HISTORY Family History Problem Relation Name Age of Onset Diabetes Mother Heart disease Father Cancer Father prostate High Blood Pressure Father Other ([id number]) Sister TBI Depression Mother Substance Abuse Brother Heart disease Mother Other ([id number]) Mother Depression Brother SOCIAL HISTORY Social History [...] Value Glucose 133 (*) Narrative: Performed by: [facility], [address] [facility] [address] CLIA ID: [id number] POCT GLUCOSE METER UNSOLICITED RESULTS - Abnormal Glucose 122 (*) Narrative: Performed by: [facility], [address] [facility] [address] CLIA ID: [id number] POCT GLUCOSE METER All other labs were [...] Type 2 diabetes mellitus treated with insulin ([facility] ([facility]): acute illness or injury Patient presents to [...] health: Reformed smoker ED diagnostics included 2 hofkt-um-gcnr blood glucose test. The first one at 133 and after a period of observation a repeat 122. The patient requested to be discharged home. She states her will keep a close eye on her. She is discharged with home-going instructions on diabetes and hypoglycemia. 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 She can return should signs and symptoms [...] Type 2 diabetes mellitus treated with insulin ([facility] ([facility]) DISPOSITION/PLAN DISPOSITION Discharge 12/04/2023 07:26:20 PM PATIENT REFERRED TO: See Ricketts MD [address] [place] [address], [facility] [address] Schedule an appointment as soon as possible for a visit in 3 days DISCHARGE MEDICATIONS: Discharge Medication List as of 12/04/2023 7:27 PM @[facility]([id number]:LAST:1)@ (Please note: Portions of this note were [...] 133 in triage documented in this encounter [facility] 12-04-2023 Emergency department Triage note Patient reports her blood glucose has been running high and then it dropped after insulin. CBG 133 in triage [facility] 12-04-2023 Physician Emergency department Note [facility] ED eMERGENCY dEPARTMENT eNCOUnter Pt Name: Melanie Carey Birthdate 1965 Date of evaluation: 12/04/2023 Provider: Jaahira Hankins PA-C CHIEF COMPLAINT Chief Complaint Patient [...] the emergency department. Patient presents with a zakdq-uo-kjvl glucose of 133. She got concerned as [...] times daily., Starting Wed08/26/2023, Normal Continuous Glucose Lumber Puller (FreeStyle Linda 3 [place]) device 1 Device daily., Starting Wed11/16/2023, Normal [...] tablet (100 mg) in the evening., Starting Rianna 08/26/2023, Normal metFORMIN (Glucophage) 1000 MG tablet Take 1 tablet (1,000 mg) by mouth in the morning and 1 tablet (1,000 mg) in the evening. Take with meals., Starting 10/13/2023, Normal Unifine Pentips 31G X 8 MM misc Use as directed with insulin pen, Normal Cat hair extract, Lisinopril, and Pollen extract FAMILY HISTORY Family History Problem Relation Name Age of Onset Diabetes Mother Heart disease Father Cancer Father prostate High Blood Pressure Father Other ([id number]) Sister TBI Depression Mother Substance Abuse Brother Heart disease Mother Other ([id number]) Mother Depression Brother SOCIAL HISTORY Social History [...] Value Glucose 133 (*) Narrative: Performed by: [facility], [address] [facility] [address] CLIA ID: [id number] POCT GLUCOSE METER UNSOLICITED RESULTS - Abnormal Glucose 122 (*) Narrative: Performed by: [facility], [address] [facility] [address] CLIA ID: [id number] POCT GLUCOSE METER All other labs were [...] Type 2 diabetes mellitus treated with insulin ([facility] ([facility]): acute illness or injury Patient presents to [...] health: Reformed smoker ED diagnostics included 2 dnpfv-uv-bcen blood glucose test. The first one at 133 and after a period of observation a repeat 122. The patient requested to be discharged home. She states her will keep a close eye on her. She is discharged with home-going instructions on diabetes and hypoglycemia. 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 She can return should signs and symptoms [...] Type 2 diabetes mellitus treated with insulin ([facility] ([facility]) DISPOSITION/PLAN DISPOSITION Discharge 12/04/2023 07:26:20 PM PATIENT REFERRED TO: See Ricketts MD [address] [place] [address], [facility] [address] Schedule an appointment as soon as possible for a visit in 3 days DISCHARGE MEDICATIONS: Discharge Medication List as of 12/04/2023 7:27 PM @[facility]([id number]:LAST:1)@ (Please note: Portions of this note were completed with a voice recognition program. Efforts were made to edit thedictations but occasionally words and phrases are mis-transcribed.) Form [id number] Jahaira Hankins PA-C (electronically signed) Emergency Medicine Provider Jahaira Hankins PA-C 12/04/232032 Jahaira Hankins PA-C 12/04/232034 [facility] 11-16-2023 History of Present illness Narrative Provider had face to face visit with patient and requests a CGM be sent to pharmacy, chart reviewed and patient has used CGM device in the past. Order sent to pharmacy per [place] guidelines, may require PA documented in this encounter [facility] 11-11-2023 Evaluation + Plan note Associated Problem(s): Hyponatremia Recheck BMP today [facility] 11-11-2023 Evaluation + Plan note Associated Problem(s): Other cirrhosis of liver (HCC) Follow-up with gastroenterology [facility] 11-11-2023 Miscellaneous Notes Associated Problem(s): Hyponatremia Recheck [...] hematology as directed. documented in this encounter [facility] 11-11-2023 Evaluation + Plan note Associated Problem(s): [...] units. Continue to check glucose before meals [facility] 11-11-2023 Evaluation + Plan note Associated Problem(s): Pancytopenia (HCC) Follow-up with hematology as directed. [facility] 11-11-2023 History of Present illness Narrative Patient [...] scheduled, as directed pending test results. SUBJECTIVE/OBJECTIVE: [facility] - Melanie Carey (: 1965) is a [...] evening. Inject before meals. 10/12/23 11/11/23 Yes Deisi Dickens APRN - HOLLIE hydrOXYzine HCl (Atarax) 25 MG tablet Take 1 tablet (25 mg) by mouth every 8 hours as needed for anxiety. 08/26/23 Yes Scar Seymour APRN - TAX ACCOUNTING MANAGER labetalol (Normodyne) 100 MG tablet Take 1 tablet (100 mg) by mouth in the morning and 1 tablet (100 mg) in the evening. 08/26/23 Yes Scar Seymour APRN - TAX ACCOUNTING MANAGER metFORMIN (Glucophage) 1000 MG tablet Take 1 tablet (1,000 mg) by mouth in the morning and 1 tablet (1,000 mg) in the evening. Take with meals. 10/13/23 Yes Scar Seymour APRN - HOLLIE Unifine Pentips 31G X 8 MM misc Use as directed with insulin pen 08/26/23 Yes Scar Seymour APRN - TAX ACCOUNTING MANAGER predniSONE (Deltasone) 20 MG tablet 10/01/23 11/11/23 [...] signature was used to authenticate this note. Scardede Seymour APRN - TAX ACCOUNTING MANAGER 11/11/2023 1:53 PM documented in this encounter [facility] 11-11-2023 Instructions NICOLE Easley CNP - 11/11/2023 7:20 AM EDT Give insulin only before breakfast and dinner U500 20 U before breakfast and 20 U before dinner, if glucose is >200 ok to give 30 U No more than 30 units of the U500 at a time. documented in this encounter [facility] 10-13-2023 Telephone encounter Note Per Dr. Juan, pt to start b12 weekly x4 then monthly. [facility] 10-13-[address] Juan, pt to start b12 weekly x4 then monthly. documented in this encounter [facility] 10-13-2023 History of Present illness Narrative [facility] [address] COUNTS INCLUDE 234 BEDS AT THE [facility] [address] Dept: [phone] Dept Loc: [phone] Patient ID: Raiza Carey is a 58 [...] for pancytopenia . US abdomin completed . [place] the same . Fatigue persisted . Hypoglycemia [...] Father prostate High Blood Pressure Father Other ([id number]) Sister TBI Depression Mother Substance Abuse Brother Heart disease Mother Other ([id number]) Mother Depression Brother Social History Socioeconomic History [...] notes/ancillary test results as well as with qojq-re-kzcp patient care, performing a medically appropriate examination, counseling & educating the patient/family/caregiver, ordering applicable medications/tests/procedures and completing required clinical documentation on the day of encounter. documented in this encounter [facility] 10-13-2023 Telephone encounter Note Reviewed chart. Refill appropriate. RX sent. [facility] 10-13-2023 Miscellaneous Notes Reviewed chart. Refill appropriate. RX sent. Prescription Request: Last medication check: not found Last physical exam: 08/26/23 Next scheduled appointment: 11/25/23 Last date of refill on this medication: 08/26/23 documented in this encounter [facility] 10-13-2023 Telephone encounter Note Prescription Request: Last medication check: not found Last physical exam: 08/26/23 Next scheduled appointment: 11/25/23 Last date of refill on this medication: 08/26/23 [facility] 10-12-2023 History of Present illness Narrative Discharged [...] hospital Arrived from ER, via cart, to 147-1 Images from the original note were not included. PHYSICAL THERAPY [facility] Name/MRN: Raiza Prashant Carey ([id number]) Date: 10/12/2023 PT evaluation orders received and chart review completed. Pt completed OT evaluation this AM and demo mobility independently with no device and completed stairs with no difficulty. Pt has no acute PT needs. Will discharge from caseload. Jennifer Friedman PT Images from the original note were not included. OCCUPATIONAL THERAPY [facility] Initial Evaluation Name/MRN: Raiza Prashant Carey ([id number]) Evaluation Date: 10/12/2023 Date of : 1965 [...] mention of complication, not stated as uncontrolled ([facility]) Uncontrolled type 2 diabetes mellitus with complication [...] (BMI) of 50.0 to 59.9 in adult ([facility]) 10/28/2018 Type 2 diabetes with nephropathy ([facility]) 10/28/2018 Anxiety 07/01/2018 Hyponatremia 2018 Gastroesophageal reflux [...] Responsibilities: Independent Receives Help From: None Active Professor Of Languages: Yes Prior Level of Function ADL Assistance: [...] of Care supervision is transferred to a [facility] Occupational Therapist. Goals and/or treatment plan was established in collaboration with patient/family/other representatives. documented in this encounter [facility] 10-12-2023 Hospital course Narrative Images from the [...] Your Medications These medications were sent to [facility] [address] [place], [place] [address] [address] [address] HumuLIN R U-500 KWIKPEN 500 UNIT/ML CONCENTRATED injection Recommended Follow-up: No follow-up provider specified. Complexity of Follow up: [] Moderate Complexity: follow up within 7-14 calendar days (57190) [x] Severe Complexity: follow up within 7 calendar days (74707) Follow up Testing, Pending results or Referrals [...] frame. Signed: Al Jones MD [facility] Medical Services/[facility] 10/12/2023, 10:20 PM documented in this encounter [facility] 10-12-2023 Emergency department Note Pt rounded on at this time. Pt resting in bed. No signs of distress noted. Casandra Donald RN 10/12/23 1449 [facility] 10-12-2023 Emergency department Note Pt rounded on at this time. Pt resting in bed. No signs of distress noted. Casandra Donald RN 10/12/23 1449 Meal tray ordered for patient at this time. Casandra Donald RN 10/12/23 1224 Provider at bedside. Casandra Donald RN 10/12/23 [...] D10 to 150ml/hr. Kati Godfrey RN 10/11/232117 Pt states at breakfast she took Humulin [...] Father prostate High Blood Pressure Father Other ([id number]) Sister TBI Depression Mother Substance Abuse Brother Heart disease Mother Other ([id number]) Mother Depression Brother SOCIAL HISTORY Social History [...] Response: Oriented Best Motor Response: Follows commands [place] Coma Scale Score: 15 NIH Stroke Scale [...] 9. Best Language: No Aphasia 10. Dysarthria: Gson-km-Icgtvkyj Dysarthria 11. Extinction and Inattention: No Abnormality [...] Abnormal Glucose 54 (*) Narrative: Performed by: [facility], [address] [place] [address] CLIA ID: [id number] POCT GLUCOSE METER UNSOLICITED RESULTS - Abnormal Glucose 129 (*) Narrative: Performed by: [facility], [address] [place] [address] CLIA ID: [id number] POCT GLUCOSE METER UNSOLICITED RESULTS - Normal Glucose 80 Narrative: Performed by: [facility], [address] [place] [address] CLIA ID: [id number] CORTISOL POCT GLUCOSE METER POCT GLUCOSE METER POCT GLUCOSE METER All other labs were within normal range or not returned as of this dictation. EMERGENCY DEPARTMENT COURSE and DIFFERENTIAL DIAGNOSIS/MDM: Vitals: Vitals: 10/11/23 2016 10/11/23201610/11/23211810/11/232148 BP: (!) 165/69 135/88 Pulse: 64 Resp: [...] Medicine Provider Jeronimo Calero MD Resident 10/11/23 6175 Pt arrives via [private vehicle for concern for hypoglycemia. states it was 38. BG upon arrival 79. Pt lethargic and responding to pain upon arrival. Not able to respond to questions. Dr Max bedside. Pt clammy and has redness to face upon arrival documented in this encounter [facility] 10-12-2023 Emergency department Note Meal tray ordered for patient at this time. Casandra Donald RN 10/12/23 1224 [facility] 10-12-2023 Emergency department Note Provider at bedside. Casandra Donald RN 10/12/23 1208 [facility] 10-12-2023 Emergency department Note Pt updated on plan of care at this time. Pt resting in bed. No signs of distress noted. Casandra Donald RN 10/12/23 1051 [facility] 10-12-2023 Emergency department Note This RN offered to place patient in hospital bed at this time. Pt denies hospital bed at this time and states her ER bed is fine for now. Casandra Donald RN 10/12/23 1004 [facility] 10-12-2023 Emergency department Note PT/ OT at bedside. Casandra Donald RN 10/12/23 0935 [facility] 10-12-2023 Emergency department Note Pt provided meal tray. Casandra Donald RN 10/12/23 0815 [facility] 10-12-2023 Consult note Associated Order (s): IP CONSULT TO ENDOCRINOLOGY Department of Internal Medicine Division of Endocrinology, Diabetes, & Metabolism Endocrinology Note Patient Name: Melanie Carey : 1965 AGE: 58 y.o. Room/Bed: Admission Date: 10/11/2023 Visit Date: 10/12/2023 Reason for Endocrine Consult: Symptomatic hypoglycemia/on insulin - DM Provider/Team Requesting Consult: Dr. Flannery PCP: See Ricketts MD Outpt Residential Builder: No ASSESSMENT: Type II DM with hypoglycemia, [...] CHOLHDLRATIO 4 01/15/2020 No results found for: [id number] No results found for: TSH, N3TFSJT, S9JGSJL, THYROIDAB Radiology reportsas per the Radiologist Radiology: POCT glucose meter Result Date: 10/12/2023 Performed by: [facility], [address] [place] [address] CLIA ID: [id number] ECG 12 lead Sinus rhythm with normal rate, intervals and QRS duration. No acute ischemic changes. Nonspecific INTRAVENTRICULAR CONDUCTION DELAY, similar to prior No acute ischemic changes Similar to previous EKG Electronically Signed On 10-12-2023 04:24:23 EDT by Jarad Ortiz POCT glucose meter Result Date: 10/12/2023 Performed by: [facility], [address] [place] [address] CLIA ID: [id number] POCT glucose meter Result Date: 10/12/2023 Performed by: [facility], [address] [place] [address] CLIA ID: [id number] POCT glucose meter Result Date: 10/12/2023 Performed by: [facility], [address] [place] [address] CLIA ID: [id number] POCT glucose meter Result Date: 10/11/2023 Performed by: [facility], [address] [place] [address] CLIA ID: [id number] POCT glucose meter Result Date: 10/11/2023 Performed by: [facility], [address] [place] [address] CLIA ID: [id number] POCT glucose meter Result Date: 10/11/2023 Performed by: [facility], [address] [place] [address] CLIA ID: [id number] CT head wo IV contrast Result Date: 10/11/2023 Patient Name: MELANIE TOVAR : 1965 [facility]#: [id number] Exam Date/Time: 10/11/2023 20:59 Procedure: CT HEAD [...] glucose meter Result Date: 10/11/2023 Performed by: [facility], [address] [place] [address] CLIA ID: [id number] History/Other: Past Medical History: Past Medical History: [...] Father prostate High Blood Pressure Father Other ([id number]) Sister TBI Depression Mother Substance Abuse Brother Heart disease Mother Other (91525) Mother Depression Brother Social History: Social History [...] state/prognosis on the date of this note. [facility] 10-12-2023 Consult note Associated Order (s): IP CONSULT TO ENDOCRINOLOGY Department of Internal Medicine Division of Endocrinology, Diabetes, & Metabolism Endocrinology Note Patient Name: Melanie Carey : 1965 AGE: 58 y.o. Room/Bed: Admission Date: 10/11/2023 Visit Date: 10/12/2023 Reason for Endocrine Consult: Symptomatic hypoglycemia/on insulin - DM Provider/Team Requesting Consult: Dr. Flannery PCP: See Ricketts MD Outpt Residential Builder: No ASSESSMENT: Type II DM with hypoglycemia, [...] CHOLHDLRATIO 4 01/15/2020 No results found for: [id number] No results found for: TSH, P7RJUNW, F7TBLYK, THYROIDAB Radiology reportsas per the Radiologist Radiology: POCT glucose meter Result Date: 10/12/2023 [facility]formed by: [facility], [address] [place] [address] CLIA ID: [id number] ECG 12 lead Sinus rhythm with normal rate, intervals and QRS duration. No acute ischemic changes. Nonspecific INTRAVENTRICULAR CONDUCTION DELAY, similar to prior No acute ischemic changes Similar to previous EKG Electronically Signed On 10-12-2023 04:24:23 EDT by Jarad Ortiz POCT glucose meter Result Date: 10/12/2023 Performed by: [facility], [address] [place] [address] CLIA ID: [id number] POCT glucose meter Result Date: 10/12/2023 Performed by: [facility], [address] [place] [address] CLIA ID: [id number] POCT glucose meter Result Date: 10/12/2023 Performed by: [facility], [address] [place] [address] CLIA ID: [id number] POCT glucose meter Result Date: 10/11/2023 [facility]formed by: [facility], [address] [place] [address] CLIA ID: [id number] POCT glucose meter Result Date: 10/11/2023 Performed by: [facility], [address] [place] [address] CLIA ID: [id number] POCT glucose meter Result Date: 10/11/2023 [facility]formed [facility]: [facility], [address] [place] [address] CLIA ID: [id number] CT head wo IV contrast Result Date: [...] glucose meter Result Date: 10/11/2023 Performed by: [facility], [address] [place] [address] CLIA ID: [id number] History/Other: Past Medical History: Past Medical History: [...] Father prostate High Blood Pressure Father Other ([id number]) Sister TBI Depression Mother Substance Abuse Brother Heart disease Mother Other ([id number]) Mother Depression Brother Social History: Social History [...] of this note. documented in this encounter [facility] 10-12-2023 Emergency department Note Meal tray ordered for patient at this time. Casandra Donald RN 10/12/23 0750 [facility] 10-11-2023 History and physical note Images from [...] at home. She does not see an Residential Builder. She denies cp, sob, cough, n/v, f/c. [...] Father prostate High Blood Pressure Father Other ([id number]) Sister TBI Depression Mother Substance Abuse Brother Heart disease Mother Other (29238) Mother Depression Brother Medications Prior to Admission: [...] orders placed or performed in visit on 02/15/24 Urine culture (clean catch) Specimen: Urine, Clean [...] Information Primary Emergency Contact: Oliver Carey [address]: [address] [place] [address] Mobile Relation: Spouse ADVANCED CARE PLANNING Melanie Carey : 1965 Primary Care Physician: See Ricketts MD The patient and/or family/surrogate voluntarily agreed to participate in ACP services. Patient s cognitive capacity: good Code Status: [X_] [FULL CODE - Continue all advanced life support: CPR,intubation,invasive procedures] [_] [DNR-CCA - DO NOT do CPR, intubation] [_] [DNR-TRANSMISSION WORKER - Comfort care only] [_] DNR form [...] JARVIS FLANNERY MD Division of Hospitalist Medicine [facility] [employer] Phone: 10-11-2023 History and physical note Images [...] at home. She does not see an Residential Builder. She denies cp, sob, cough, n/v, f/c. [...] Father prostate High Blood Pressure Father Other ([id number]) Sister TBI Depression Mother Substance Abuse Brother Heart disease Mother Other (57524) Mother Depression Brother Medications Prior to Admission: [...] Information Primary Emergency Contact: Oliver Carey Address: [address] [place] [address] of [facility] Mobile Relation: Spouse ADVANCED CARE PLANNING Melanie Carey : 1965 Primary Care Physician: See Ricketts MD The patient and/or family/surrogate voluntarily agreed to participate in ACP services. Patient s cognitive capacity: good Code Status: [X_] [FULL CODE - Continue all advanced life support: CPR,intubation,invasive procedures] [_] [DNR-CCA - DO NOT do CPR, intubation] [_] [DNR-TRANSMISSION WORKER - Comfort care only] [_] DNR form [...] JARVIS FLANNERY MD Division of Hospitalist Medicine [facility] documented in this encounter [facility] 10-11-2023 Emergency department Note BG 54. Dr Calero notified. Instructed to give D50 and increase D10 to 150ml/hr. Kati Godfrey RN 10/11/23 7515 [facility] 10-11-2023 Emergency department Note Pt states at breakfast she took Humulin R Kwikpen 180 units. Lunch she checked BG and it was in 200s so she took 60-80 units. States she did not eat after lunch and did not take any additional insulin Kati Godfrey RN 10/11/232024 [facility] 10-11-2023 Emergency department Note Pt much more responsive after D50. A&Ox4. Kati Godfrey RN 10/11/232021 [facility] 10-11-2023 Emergency department Triage note Pt arrives via [private vehicle for concern for hypoglycemia. states it was 38. BG upon arrival 79. Pt lethargic and responding to pain upon arrival. Not able to respond to questions. Dr Max bedside. Pt clammy and has redness to face upon arrival [facility] 10-11-2023 Physician Emergency department Note EMERGENCY DEPARTMENT [...] Father prostate High Blood Pressure Father Other ([id number]) Sister TBI Depression Mother Substance Abuse Brother Heart disease Mother Other ([id number]) Mother Depression Brother SOCIAL HISTORY Social History [...] Response: Oriented Best Motor Response: Follows commands [place] Coma Scale Score: 15 NIH Stroke Scale [...] 9. Best Language: No Aphasia 10. Dysarthria: Nqjo-cx-Qluaodly Dysarthria 11. Extinction and Inattention: No Abnormality [...] Abnormal Glucose 54 (*) Narrative: Performed by: [facility], [address] [place] [address] CLIA ID: [id number] POCT GLUCOSE METER UNSOLICITED RESULTS - Abnormal Glucose 129 (*) Narrative: Performed by: [facility], [address] [place] [address] [id number] CLIA ID: [id number] POCT GLUCOSE METER UNSOLICITED RESULTS - Normal Glucose 80 Narrative: Performed by: [facility], [address] [place] [id number] CLIA ID: [id number] CORTISOL POCT GLUCOSE METER POCT GLUCOSE METER POCT GLUCOSE METER All other labs were within normal range or not returned as of this dictation. EMERGENCY DEPARTMENT COURSE and DIFFERENTIAL DIAGNOSIS/MDM: Vitals: Vitals: 10/11/23 2016 10/11/23 2017 10/11/23 2119 10/11/23 2149 BP: (!) 165/69 135/88 Pulse: 64 Resp: [...] Medicine Provider Jeronimo Calero MD Resident 10/11/23 7706 [facility] 09-22-2023 History of Present illness Narrative [facility] [place] [address] COUNTS INCLUDE 234 BEDS AT THE [facility] [address] Dept: [phone] Dept Loc: [phone] Patient ID: Raiza Carey is a 58 [...] Father prostate High Blood Pressure Father Other ([id number]) Sister TBI Depression Mother Substance Abuse Brother Heart disease Mother Other ([id number]) Mother Depression Brother Social History Socioeconomic History [...] notes/ancillary test results as well as with rfic-mp-hwhj patient care, performing a medically appropriate examination, counseling & educating the patient/family/caregiver, ordering applicable medications/tests/procedures and completing required clinical documentation on the day of encounter. documented in this encounter [facility] 09-22-2023 History of Present illness Narrative [facility] [place] [address] COUNTS INCLUDE 234 BEDS AT THE [facility] [address] Dept: [phone] Dept Loc: [phone] Patient ID: Raiza Carey is a 58 [...] Father prostate High Blood Pressure Father Other ([id number]) Sister TBI Depression Mother Substance Abuse Brother Heart disease Mother Other ([id number]) Mother Depression Brother Social History Socioeconomic History [...] notes/ancillary test results as well as with ktha-hl-ybkq patient care, performing a medically appropriate examination, counseling & educating the patient/family/caregiver, ordering applicable medications/tests/procedures and completing required clinical documentation on the day of encounter. documented in this encounter [facility] 09-22-2023 Miscellaneous Notes Addended by: AVA NUNEZ on: 09/30/2023 08:08 AM Modules accepted: Orders documented in this encounter [facility] 09-22-2023 Note Addended by: AVA NUNEZ on: 09/30/2023 08:08 AM Modules accepted: Orders [facility] 08-26-2023 Evaluation + Plan note Associated Problem(s): Lip lesion Recommend referral to dermatology for further evaluation. [facility] 08-26-2023 Miscellaneous Notes Associated Problem(s): Lip lesion Recommend referral to dermatology for further evaluation. Associated Problem(s): Urinary tract infection symptoms UA few leuks, blood. Send for culture. No antibiotic therapy indicated at this time. Associated Problem(s): Back strain Consistent with lumbar strain. No red flags. Associated Problem(s): Depression Stable. Previously seeing psychiatry in [place]. Continue Wellbutrin 300 mg daily, BuSpar 10 [...] this time. Previously seeing Dr Overton in [place]. Continue current medications. documented in this encounter [facility] 08-26-2023 Evaluation + Plan note Associated Problem(s): Urinary tract infection symptoms UA few leuks, blood. Send for culture. No antibiotic therapy indicated at this time. [facility] 08-26-2023 Evaluation + Plan note Associated Problem(s): Back strain Consistent with lumbar strain. No red flags. [facility] 08-26-2023 Evaluation + Plan note Associated Problem(s): Depression Stable. Previously seeing psychiatry in [place]. Continue Wellbutrin 300 mg daily, BuSpar 10 mg twice daily, hydroxyzine 25 mg every 8 hours. [facility] 08-26-2023 Evaluation + Plan note Associated Problem(s): Obstructive sleep apnea syndrome Continue CPAP [facility] 08-26-2023 Evaluation + Plan note Associated Problem(s): Chronic obstructive pulmonary disease (HCC) Symptoms controlled [facility] 08-26-2023 Evaluation + Plan note Associated Problem(s): Migraine without aura and without status migrainosus, not intractable Controlled. [facility] 08-26-2023 Evaluation + Plan note Associated Problem(s): Hyperlipidemia LDL goal <70 Check lipids today, currently not on meds, consider starting statin [facility] 08-26-2023 Evaluation + Plan note Associated Problem(s): Essential hypertension Controlled. Continue labetolol 100 mg twice daily, consider starting ARB, does not tolerate CLAUDY inhibitors [facility] 08-26-2023 Evaluation + Plan note Associated Problem(s): Gastroesophageal reflux disease without esophagitis Controlled. Takes prilosec OTC. [facility] 08-26-2023 Evaluation + Plan note Associated Problem(s): Lymphopenia Repeat CBC, needs to follow up with hematology [facility] 08-26-2023 Evaluation + Plan note Associated Problem(s): Other cirrhosis of liver (HCC) Follow up with gastroenterology. Check cmp today [facility] 08-26-2023 Evaluation + Plan note Associated Problem(s): Anxiety Controlled. Doing well on current medication and we will take over manage at this time. Previously seeing Dr Overton in [place]. Continue current medications. [facility] 08-26-2023 History of Present illness Narrative Patient [...] off, verified patient information, then given to [facility]. Images from the original note were [...] tablet (100 mg) in the evening., Starting Rianna 08/26/2023, Normal 5. Recurrent major depressive disorder, in partial remission (HCC) Assessment & Plan: Stable. Previously seeing psychiatry in [place]. Continue Wellbutrin 300 mg daily, BuSpar 10 mg twice daily, hydroxyzine 25 mg every 8 hours. 6. Anxiety Assessment & Plan: Controlled. Doing well on current medication and we will take over manage at this time. Previously seeing Dr Overton in [place]. Continue current medications. Orders: - buPROPion XL (Wellbutrin XL) 300 MG 24 hr tablet; Take 1 tablet (300 mg) by mouth daily. Do not crush, chew, or split., Starting Rianna 08/26/2023, Normal - busPIRone (Buspar) 10 MG tablet; Take 1 tablet (10 mg) by mouth 2 times daily., Starting Rianna 08/26/2023, Normal - hydrOXYzine HCl (Atarax) 25 MG tablet; Take 1 tablet (25 mg) by mouth every 8 hours as needed for anxiety., Starting Rianna 08/26/2023, Normal 7. Lymphopenia Assessment & Plan: Repeat CBC, needs to follow up with hematology Orders: - CBC 8. Hyperlipidemia LDL goal <70 Assessment & Plan: Check lipids today, currently not on meds, consider starting statin Orders: - Lipid panel 9. Encounter for screening mammogram for malignant neoplasm of breast - Bilateral screening mammogram with tomosynthesis 10. Colon cancer screening - [facility] Gastroenterology 11. Urinary tract infection symptoms Assessment & Plan: UA few leuks, blood. Send for culture. No antibiotic therapy indicated at this time. Orders: - POCT urinalysis dipstick manually resulted - Urine culture (clean catch) 12. Other cirrhosis of liver (HCC) Assessment & Plan: Follow up with gastroenterology. Check cmp today Orders: - [facility] Gastroenterology 13. Thrombocytopenia (HCC) 14. Chronic bronchitis, unspecified chronic bronchitis type (HCC) Assessment & Plan: Symptoms controlled 15. Gastroesophageal reflux disease without esophagitis Assessment & Plan: Controlled. Takes prilosec OTC. 16. Migraine without aura and without status migrainosus, not intractable Assessment & Plan: Controlled. 17. Obstructive sleep apnea syndrome Assessment & Plan: Continue CPAP [facility]. SUBJECTIVE/OBJECTIVE: HPI - Melanie Carey (: [...] in the evening. 11/03/22 Yes Historical Provider, [employer] 31G X 8 MM misc 10/20/22 [...] 08/26/2023 4:14 PM documented in this encounter [facility] 05-16-2023 Emergency department Note EMERGENCY DEPARTMENT ENCOUNTER [...] pain. Patient states that she was at worship this morning and been doing fine and [...] Father prostate High Blood Pressure Father Other ([id number]) Sister TBI Depression Mother Substance Abuse Brother Heart disease Mother Other ([id number]) Mother Depression Brother SOCIAL HISTORY Social History [...] presyncopal event while she was sitting at worship when she got really hot. Her symptoms [...] discharged. I Mariana Snow MD am the primary teaching assistant of record. FINAL IMPRESSION No diagnosis found. [...] Emergency Medicine Provider Mariana Snow MD 05/16/23 1336 Emergency Department Encounter Location: [facility] ED Patient: Raiza Carey : 1965 Date [...] 412 ms QTC Interval 434 ms P [place] 57 degrees QRS [place] -62 degrees T Wave [place] 60 degrees [place] Interval 187 ms XR chest 1 view [...] buspar, metformin, labetolol) documented in this encounter [facility] 05-16-2023 Emergency department Triage note Pt states she was off all of her medication due to no insurance since january. Started taking everything again on Wednesday (wellbutrin, buspar, metformin, labetolol) [facility] 05-16-2023 Physician Emergency department Note EMERGENCY DEPARTMENT [...] pain. Patient states that she was at worship this morning and been doing fine and [...] Father prostate High Blood Pressure Father Other ([id number]) Sister TBI Depression Mother Substance Abuse Brother Heart disease Mother Other ([id number]) Mother Depression Brother SOCIAL HISTORY Social History [...] presyncopal event while she was sitting at worship when she got really hot. Her symptoms [...] discharged. I Mariana Snow MD am the primary teaching assistant of record. FINAL IMPRESSION No diagnosis found. [...] Emergency Medicine Provider Mariana Snow MD 05/16/23 1339 [employer] Phone: 05-16-2023 Physician Emergency department Note Emergency Department Encounter Location: [facility] ED Patient: Raiza Carey : 1965 Date [...] 412 ms QTC Interval 434 ms P [place] 57 degrees QRS [place] -62 degrees T Wave [place] 60 degrees [place] Interval 187 ms XR chest 1 view [...] 05/16/23 1632 Eder Phillips MD 05/16/23 1632 [facility] 03-15-2023 Hospital Discharge instructions Yogesh Dodson MD [...] through Care Everywhere.Cervical Muscle Strain Discharge Instructions (Qatari)Headache, Adult ED (Qatari)documented in this encounter [facility] 03-15-2023 Emergency department Note I did not participate in the care of this patient. HERMES James 03/15/23 1032 Emergency Department Encounter [facility] ED Patient: Melanie Carey : 1965 Date [...] bilateral lower extremities including hip flexion No shxfvb-ky-uapa dysmetria Sensation intact and symmetrical bilateral upper [...] for clarification. Yogesh Dodson MD Acute Care [facility] Yogesh Dodson MD 03/15/23 1609 documented in this encounter [facility] 03-15-2023 Physician Emergency department Note I did not participate in the care of this patient. HERMES James 03/15/23 1032 [facility] Work Phone: 03-15-2023 Physician Emergency department Note Emergency Department Encounter [facility] ED Patient: Melanie Carey : 1965 Date [...] bilateral lower extremities including hip flexion No ketfqu-ea-mjuw dysmetria Sensation intact and symmetrical bilateral upper and lower extremities, bilateral face No dysarthria No aphasia MEDICAL DECISION MAKING: Medications acetaminophen (Tylenol) tablet 1,000 mg (1,000 mg Oral Given 03/15/23 1051) ondansetron ODT (Zofran-ODT) disintegrating tablet 4 mg (4 mg Oral Given 03/15/23 1051) cyclobenzaprine (Flexeril) tablet 5 mg (5 mg Oral Given 03/15/23 105) Melanie Carey is a 57 y.o. female [...] dictating provider for clarification. Yogesh Dodson MD [facility] Yogesh Dodson MD 03/15/23 3545 [facility] 02-20-2023 Hospital Discharge instructions Nae Mobley NP [...] Blood Sugar from the Drugs You Take (Qatari)Diabetic Meal Planning (Qatari)Diabetes and Diet (Qatari)documented in this encounter [facility] 02-20-2023 Plan of care note The patient [...] Recommendations to address these barriers include NA. [facility] 02-20-2023 Miscellaneous Notes The patient is Moderately [...] does receive free. Did provide her with [employer] list of insulin prices. She states it has been forever that she has been on two different types of insulin. She was wondering if [facility] could provide her insulin for free. Did [...] review. There is documentation from Sarah Mosher [facility] who has been assisting patient with medicaid and med resources. The patient informed me she is in the process of working on Medicaid with [facility]. She does see Dr. Ricketts under [facility]. In regrads to her Insulin, she does get Humulin for free and does have the medication at home. She is working with Dr. Ricketts's Office on getting the Jardiance, she has submitted for PAP but she needs to get her financial documents in to the [employer] travel [employer]. The patient also is prescribed Wellbutrin and [...] states she is unable to afford antidiabetics, [employer] speaking with patient. Awaiting Endocrine Cons to determine status. TCC will continue to follow. documented in this encounter [facility] 02-20-2023 Note Formatting of this n ote might be different from the original. Was notified by nursing staff that patient is concerned about affording her insulin at discharge. She does have humulin R at home that she does receive free. Did provide her with [employer] list of insulin prices. She states it has been forever that she has been on two different types of insulin. She was wondering if [facility] could provide her insulin for free. Did [...] endocrinology regarding home going insulin recommendations. . [facility] 02-20-2023 Note Formatting of this n ote might be different from the original. Was notified by nursing staff that patient is concerned about affording her insulin at discharge. She does have humulin R at home that she does receive free. Did provide her with [employer] list of insulin prices. She states it has been forever that she has been on two different types of insulin. She was wondering if [facility] could provide her insulin for free. Did [...] endocrinology regarding home going insulin recommendations. . [facility] 02-20-2023 History of Present illness Narrative Nutrition rescreen complete. Pt assigned a level one for nutrition care. documented in this encounter [facility] 02-19-2023 Note Formatting of this n ote might be different from the original. S/W, follow up Lengthy conversation with patient in room regarding her uninsured status and also medication needs. I did chart review. There is documentation from Sarah Mosher [facility] who has been assisting patient with medicaid and med resources. The patient informed me she is in the process of working on Medicaid with [facility]. She does see Dr. Ricketts under [facility]. In regrads to her Insulin, she does get Humulin for free and does have the medication at home. She is working with Dr. Ricketts's Office on getting the Jardiance, she has submitted for PAP but she needs to get her financial documents in to the [employer]. The patient also is prescribed Wellbutrin and Buspar. She does note she is able to afford the Buspr ($4 at [facility]) and Wellbutrin ($18 at [facility]) I did supply the patient with another Jardiance application for good measure if needed. If medication changes occur, suggest the most economical avenue. The patient at this time has all meds needed. [facility] 02-19-2023 Note Formatting of this n ote might be different from the original. S/W, follow up Lengthy conversation with patient in room regarding her uninsured status and also medication needs. I did chart review. There is documentation from Sarah Mosher [facility] who has been assisting patient with medicaid and med resources. The patient informed me she is in the process of working on Medicaid with [facility]. She does see Dr. Ricketts under [facility]. In regrads to her Insulin, she does get Humulin for free and does have the medication at home. She is working with Dr. Ricketts's Office on getting the Jardiance, she has submitted for PAP but she needs to get her financial documents in to the [employer]. The patient also is prescribed Wellbutrin and Buspar. She does note she is able to afford the Buspr ($4 at [employer]) and Wellbutrin ($18 at [facility]) I did supply the patient with another Jardiance application for good measure if needed. If medication changes occur, suggest the most economical avenue. The patient at this time has all meds needed. [facility] 02-19-2023 Note Formatting of this n ote might be different from the original. Patient under Observation status in CDU 2 for hypoglycemia. Patient states she is unable to afford antidiabetics, [employer] speaking with patient. Awaiting Endocrine Cons to determine status. TCC will continue to follow. T [facility] 02-19-2023 Note Formatting of this n ote might be different from the original. Patient under Observation status in CDU 2 for hypoglycemia. Patient states she is unable to afford antidiabetics, [employer] speaking with patient. Awaiting Endocrine Cons to determine status. TCC will continue to follow. [facility] 02-19-2023 Consult note Associated Order (s): IP CONSULT TO ENDOCRINOLOGY Department of Internal Medicine Division of Endocrinology, Diabetes, & Metabolism Endocrinology Note Patient Name: Melanie Carey : 1965 AGE: 57 y.o. Room/Bed: [facility]/[address] Admission Date: 02/18/2023 Visit Date: 02/19/2023 Reason for Endocrine Consult: dm2 hypoglycemia Provider/Team Requesting Consult: Dr. Fay PCP: See Ricketts MD Outpt Residential Builder: Yes , suhas bhatt has not seen since 12/31 ASSESSMENT: Dm2 [...] CHOLHDLRATIO 4 01/15/2020 No results found for: [id number] No results found for: TSH, T7ZGAGE, O4NGZXJ, THYROIDAB Radiology reportsas per the Radiologist Radiology: [...] Father prostate High Blood Pressure Father Other ([id number]) Sister TBI Depression Mother Substance Abuse Brother Heart disease Mother Other ([id number]) Mother Depression Brother Social History: Social History [...] state/prognosis on the date of this note. [employer] Phone: 02-19-2023 Consult note Associated Order (s): IP CONSULT TO ENDOCRINOLOGY Department of Internal Medicine Division of Endocrinology, Diabetes, & Metabolism Endocrinology Note Patient Name: Melanie Carey : 1965 AGE: 57 y.o. Room/Bed: [facility]/[address] Admission Date: 02/18/2023 Visit Date: 02/19/2023 Reason for Endocrine Consult: dm2 hypoglycemia Provider/Team Requesting Consult: Dr. Fay PCP: See Ricketts MD Outpt Residential Builder: Yes , [facility] end[facility] has not seen [...] CHOLHDLRATIO 4 01/15/2020 No results found for: [id number] No results found for: TSH, C8WEKGG, K7OAEGU, THYROIDAB Radiology reportsas per the Radiologist Radiology: [...] Father prostate High Blood Pressure Father Other ([id number]) Sister TBI Depression Mother Substance Abuse Brother Heart disease Mother Other ([id number]) Mother Depression Brother Social History: Social History [...] of this note. documented in this encounter [facility] 02-19-2023 History and physical note Images from [...] Father prostate High Blood Pressure Father Other ([id number]) Sister TBI Depression Mother Substance Abuse Brother Heart disease Mother Other ([id number]) Mother Depression Brother Social History Socioeconomic History [...] 25 mg Oral q8h PRN Fernie Resendiz DESTINATION COORDINATOR - TAX ACCOUNTING MANAGER labetalol (Normodyne) tablet 100 mg 100 mg Oral BID Fernie Resendiz, DESTINATION COORDINATOR - TAX ACCOUNTING MANAGER 100 mg at 02/19/23 0938 ondansetron ODT (Zofran-ODT) disintegrating tablet 4 mg 4 mg Oral q8h PRN Ferniearistides Resendiz, DESTINATION COORDINATOR - TAX ACCOUNTING MANAGER Or ondansetron (Zofran) injection 4 mg 4 mg IntraVENous q6h PRN Ferniearistides Resendiz, DESTINATION COORDINATOR - TAX ACCOUNTING MANAGER polyethylene glycol (PEG) 3350 (Miralax) packet 17 g 17 g Oral Daily PRN Ferniearistides Resendiz, DESTINATION COORDINATOR - TAX ACCOUNTING MANAGER sodium chloride 0.9 % infusion 5-250 mL/hr IntraVENous PRN Fernie Resendiz, DESTINATION COORDINATOR - TAX ACCOUNTING MANAGER sodium chloride 0.9% (NS) flush 5-40 mL 5-40 mL IntraVENous q12h Fernie Resendiz, DESTINATION COORDINATOR - TAX ACCOUNTING MANAGER 10 mL at 02/18/23 2213 sodium chloride 0.9% (NS) flush 5-40 mL 5-40 mL IntraVENous PRN Ferniearistides Resendiz, DESTINATION COORDINATOR - TAX ACCOUNTING MANAGER Allergies Allergen Reactions Cat Hair Extract Anaphylaxis [...] Abnormal Glucose 60 (*) Narrative: Performed by: [facility], [address] [place] [id number] CLIA ID: [id number] POCT GLUCOSE METER UNSOLICITED RESULTS - Abnormal Glucose 62 (*) Narrative: Performed by: [facility], [address] [place] [address] [id number] CLIA ID: [id number] POCT GLUCOSE METER UNSOLICITED RESULTS - Abnormal Glucose 122 (*) Narrative: Performed by: [facility], [address] [place] [id number] CLIA ID: [id number] SARS-COV-2, FLU A/B, AND RSV COMBO - [...] In compliance with this authorization, please visit www.fda.gov/media/315801/download or www.fda.gov/media/327591/download to access the applicable information sheets. POCT GLUCOSE METER UNSOLICITED RESULTS - Normal Glucose 82 Narrative: [facility]formed by: [facility], [address] [place] [address] CLIA ID: [id number] POCT GLUCOSE METER UNSOLICITED RESULTS - Normal Glucose 85 Narrative: Performed by: [facility], [address] [place] [address] CLIA ID: [id number] POCT GLUCOSE METER UNSOLICITED RESULTS - Normal Glucose 82 Narrative: Performed by: [facility], [address] [place] [address] CLIA ID: [id number] POCT GLUCOSE METER UNSOLICITED RESULTS - Normal Glucose 78 Narrative: Performed by: [facility], [address] [place] [id number] CLIA ID: [id number] POCT GLUCOSE METER POCT GLUCOSE METER POCT [...] workup. Independent review of ED workup: Initial icnyz-rs-paqb BG was 60. Shows WBC of 3, hemoglobin 12.2, no significant acute abnormalities. CMP shows normal electrolytes and kidney function, BG was low at 56, ALP 139 otherwise normal LFTs. COVID flu RSV swab negative. Latest POC BG at 0638 this morning is 78. External records reviewed: Patient seen here at [facility] ED 02/13/2023 for near syncope, at that time her BG was 89, she was ultimately discharged. Office visit 02/16/2023 with [facility], per notes she had just [...] Mau Bates PA-C CDU Advanced Practice Provider [facility] (Comment: Please note this report has been produced using speech recognition software and may contain errors related to that system including errors in grammar, punctuation, and spelling, as well as words and phrases that may be inappropriate. If there are any questions or concerns please feel free to contact the dictating provider for clarification.) [employer] Phone: 02-19-2023 History and physical note Images [...] Father prostate High Blood Pressure Father Other ([id number]) Sister TBI Depression Mother Substance Abuse Brother Heart disease Mother Other ([id number]) Mother Depression Brother Social History Socioeconomic History [...] NICOLE Rajan CNP 300 mg at 02/19/23 09 busPIRone (Buspar) tablet 10 mg 10 mg Oral BID NICOLE Rajan CNP 10 mg at 02/19/23 09 dextrose 10 % infusion 200 mL/hr IntraVENous [...] 4 mg 4 mg Oral q8h PRN NICOLE Rajan CNP Or ondansetron (Zofran) injection 4 mg 4 mg IntraVENous q6h PRN NICOLE Rajan CNP polyethylene glycol (PEG) 3350 (Miralax) packet 17 g 17 g Oral Daily PRN NICOLE Rajan CNP sodium chloride 0.9 % infusion 5-250 mL/hr IntraVENous PRN Fernie Resendiz, DESTINATION COORDINATOR - TAX ACCOUNTING MANAGER sodium chloride 0.9% (NS) flush 5-40 mL 5-40 mL IntraVENous q12h Fernie Resendiz, DESTINATION COORDINATOR - TAX ACCOUNTING MANAGER 10 mL at 02/18/23 2213 sodium chloride 0.9% (NS) flush 5-40 mL 5-40 mL IntraVENous PRN Fernie Resendiz, DESTINATION COORDINATOR - TAX ACCOUNTING MANAGER Allergies Allergen Reactions Cat Hair Extract Anaphylaxis [...] Abnormal Glucose 60 (*) Narrative: Performed by: [facility], [address] [place] [address] CLIA ID: [id number] POCT GLUCOSE METER UNSOLICITED RESULTS - Abnormal Glucose 62 (*) Narrative: Performed by: [facility], [address] [place] [address] CLIA ID: [id number] POCT GLUCOSE METER UNSOLICITED RESULTS - Abnormal Glucose 122 (*) Narrative: Performed by: [facility], [address] [place] [address] CLIA ID: [id number] SARS-COV-2, FLU A/B, AND RSV COMBO - [...] In compliance with this authorization, please visit www.fda.gov/media/195041/download or www.fda.gov/media/518979/download to access the applicable information sheets. POCT GLUCOSE METER UNSOLICITED RESULTS - Normal Glucose 82 Narrative: Performed by: [facility], [address] [place] [address] CLIA ID: [id number] POCT GLUCOSE METER UNSOLICITED RESULTS - Normal Glucose 85 Narrative: Performed by: [facility], [address] [place] [address] CLIA ID: [id number] POCT GLUCOSE METER UNSOLICITED RESULTS - Normal Glucose 82 Narrative: Performed by: [facility], [address] [facility] [address] CLIA ID: [id number] POCT GLUCOSE METER UNSOLICITED RESULTS - Normal Glucose 78 Narrative: Performed by: [facility], [address] [facility] [address] CLIA ID: [id number] POCT GLUCOSE METER POCT GLUCOSE METER POCT [...] workup. Independent review of ED workup: Initial kxkta-sp-sfln BG was 60. Shows WBC of 3, hemoglobin 12.2, no significant acute abnormalities. CMP shows normal electrolytes and kidney function, BG was low at 56, ALP 139 otherwise normal LFTs. COVID flu RSV swab negative. Latest POC BG at 0638 this morning is 78. External records reviewed: Patient seen here at [facility] ED 02/13/2023 for near syncope, at that time her BG was 198, she was ultimately discharged. Office visit 02/16/2023 with [facility], per notes she had just [...] Mau Bates PA-C CDU Advanced Practice Provider [facility] (Comment: Please note this report has been produced using speech recognition software and may contain errors related to that system including errors in grammar, punctuation, and spelling, as well as words and phrases that may be inappropriate. If there are any questions or concerns please feel free to contact the dictating provider for clarification.) documented in this encounter [facility] 02-19-2023 Emergency department Note Report called to Cristin Lambert RN in CDU Isabel Parson RN 02/19/23930 [facility] 02-19-2023 Emergency department Note Report called to [...] mouth every 8 hours as needed., Starting 09/07/2022, Historical Med labetalol [...] Father prostate High Blood Pressure Father Other ([id number]) Sister TBI Depression Mother Substance Abuse Brother Heart disease Mother Other ([id number]) Mother Depression Brother SOCIAL HISTORY Social History [...] Housing in the Last Year: No SCREENINGS [place] Coma Scale Best Eye Response: Spontaneous Best Verbal Response: Oriented Best Motor Response: Follows commands [place] Coma Scale Score: 15 PHYSICAL EXAM ED Triage Vitals Temp Heart Rate Resp BP 02/18/23 1821 02/18/23 18202/18/23182002/18/231820 36.2 C (97.1 F) 68 20 (!) 165/92 SpO2 Temp Source Heart Rate Source Patient Position 02/18/23 18202/18/23 18202/18/23 18202/19/23215 97 % Oral Monitor Lying BP Location [...] Abnormal Glucose 60 (*) Narrative: Performed by: [facility], [address] [place] [address] CLIA ID: [id number] POCT GLUCOSE METER UNSOLICITED RESULTS - Abnormal Glucose 62 (*) Narrative: Performed by: [facility], [address] [facility] [address] CLIA ID: [id number] POCT GLUCOSE METER UNSOLICITED RESULTS - Abnormal Glucose 122 (*) Narrative: Performed by: [facility], [address] [facility], [facility] [address] CLIA ID: [id number] POCT GLUCOSE METER UNSOLICITED RESULTS - Abnormal Glucose 231 (*) Narrative: Performed by: [facility], [address] [facility], [facility] [address] CLIA ID: [id number] POCT GLUCOSE METER UNSOLICITED RESULTS - Abnormal Glucose 153 (*) Narrative: Performed by: [facility], [address] [facility], [place] [address] CLIA ID: [id number] POCT GLUCOSE METER UNSOLICITED RESULTS - Abnormal Glucose 159 (*) Narrative: Performed by: [facility], [address] [place] [address], [place] [address] CLIA ID: [id number] POCT GLUCOSE METER UNSOLICITED RESULTS - Abnormal Glucose 149 (*) Narrative: Performed by: [facility], [address] [place] [address], [facility] [address] CLIA ID: [id number] POCT GLUCOSE METER UNSOLICITED RESULTS - Abnormal Glucose 170 (*) Narrative: Performed by: [facility], [address] [place] [address] CLIA ID: [id number] POCT GLUCOSE METER UNSOLICITED RESULTS - Abnormal Glucose 152 (*) Narrative: Performed by: [facility], [address] [place] [address] CLIA ID: [id number] SARS-COV-2, FLU A/B, AND RSV COMBO - [...] In compliance with this authorization, please visit www.fda.gov/media/920325/download or www.fda.gov/media/421045/download to access the applicable information sheets. POCT GLUCOSE METER UNSOLICITED RESULTS - Normal Glucose 82 Narrative: Performed by: [facility], [address] [facility] [address] CLIA ID: [id number] POCT GLUCOSE METER UNSOLICITED RESULTS - Normal Glucose 85 Narrative: Performed by: [facility], [address] [place] [address] CLIA ID: [id number] POCT GLUCOSE METER UNSOLICITED RESULTS - Normal Glucose 82 Narrative: [facility]formed by: [facility], [address] [place] [address] CLIA ID: [id number] POCT GLUCOSE METER UNSOLICITED RESULTS - Normal Glucose 78 Narrative: Performed by: [facility], [address] [place] [address] CLIA ID: [id number] POCT GLUCOSE METER POCT GLUCOSE METER POCT [...] tablet 300 mg (300 mg Oral Given 02/20/23754) busPIRone (Buspar) tablet 10 mg (10 mg [...] 0-6 Units ( SubCUTAneous Not Given 02/20/23 170) dextrose 5 % and sodium chloride 0.9 [...] has not taken either of these today. Tjhet-hi-bvys glucose was done here in the emergency [...] condition. I Mariana Snow MD am the primary teaching assistant of record. FINAL IMPRESSION 1. Hypoglycemia DISPOSITION Observation 02/19/2023 08:21:38 AM PATIENT REFERRED TO: See Ricketts MD [address] [facility], [address] [facility] [address] Schedule an appointment as soon as possible for a visit in 1 week(s) Hospital follow up - hypoglycemia Al Pemberton MD [address] [facility] [address] [facility] [address] Schedule an appointment as soon as possible for a visit Please call to set up new patient appointment within the next 2 weeks [facility] [address] [facility] [phone] Follow up As needed, If symptoms [...] arrival: Comments: Main 1 Milka Avina RN 02/19/23 0150 documented in this encounter [facility] 02-18-2023 Emergency department Note Bed: 06 Expected date: Expected time: Means of arrival: Comments: Main 1 Milka Avina RN 02/19/23 015 [facility] 02-18-2023 Emergency department Triage note Pt states her blood sugar has been dropping throughout the day. 48 was the lowest. States she is unsure if she took her insulin or not [facility] 02-18-2023 Physician Emergency department Note EMERGENCY DEPARTMENT [...] Father prostate High Blood Pressure Father Other ([id number]) Sister TBI Depression Mother Substance Abuse Brother Heart disease Mother Other ([id number]) Mother Depression Brother SOCIAL HISTORY Social History [...] Housing in the Last Year: No SCREENINGS [place] Coma Scale Best Eye Response: Spontaneous Best Verbal Response: Oriented Best Motor Response: Follows commands [place] Coma Scale Score: 15 PHYSICAL EXAM ED Triage Vitals Temp Heart Rate Resp BP 02/18/23 1821 02/18/23 1821 02/18/23 18202/18/231820 36.2 C (97.1 F) 68 20 (!) 165/92 SpO2 Temp Source Heart Rate Source Patient Position 02/18/23182002/18/23182002/18/23182002/19/23 021 97 % Oral Monitor Lying BP Location [...] Abnormal Glucose 60 (*) Narrative: Performed by: [facility], [address] [place] [address] CLIA ID: [id number] POCT GLUCOSE METER UNSOLICITED RESULTS - Abnormal Glucose 62 (*) Narrative: Performed by: [facility], [address] [place] [address] CLIA ID: [id number] POCT GLUCOSE METER UNSOLICITED RESULTS - Abnormal Glucose 122 (*) Narrative: Performed by: [facility], [address] [place] [address] CLIA ID: [id number] POCT GLUCOSE METER UNSOLICITED RESULTS - Abnormal Glucose 231 (*) Narrative: Performed by: [facility], [address] [place] [address] CLIA ID: [id number] POCT GLUCOSE METER UNSOLICITED RESULTS - Abnormal Glucose 153 (*) Narrative: Performed by: [facility], [address] [place] [address] CLIA ID: [id number] POCT GLUCOSE METER UNSOLICITED RESULTS - Abnormal Glucose 159 (*) Narrative: Performed by: [facility], [address] [place] [address] CLIA ID: [id number] POCT GLUCOSE METER UNSOLICITED RESULTS - Abnormal Glucose 149 (*) Narrative: Performed by: [facility], [address] [place] [address] CLIA ID: [id number] POCT GLUCOSE METER UNSOLICITED RESULTS - Abnormal Glucose 170 (*) Narrative: Performed by: [facility], [address] [place] [address] CLIA ID: [id number] POCT GLUCOSE METER UNSOLICITED RESULTS - Abnormal Glucose 152 (*) Narrative: Performed by: [facility], [address] [place] [address] CLIA ID: [id number] SARS-COV-2, FLU A/B, AND RSV COMBO - [...] In compliance with this authorization, please visit www.fda.gov/media/997945/download or www.fda.gov/media/017541/download to access the applicable information sheets. POCT GLUCOSE METER UNSOLICITED RESULTS - Normal Glucose 82 Narrative: Performed by: [facility], [address] [place] [address] CLIA ID: [id number] POCT GLUCOSE METER UNSOLICITED RESULTS - Normal Glucose 85 Narrative: Performed by: [facility], [address] [place] [address] CLIA ID: [id number] POCT GLUCOSE METER UNSOLICITED RESULTS - Normal Glucose 82 Narrative: Performed by: [facility], [address] [place] [address] CLIA ID: [id number] POCT GLUCOSE METER UNSOLICITED RESULTS - Normal Glucose 78 Narrative: Performed by: [facility], [address] [place] [address] CLIA ID: [id number] POCT GLUCOSE METER POCT GLUCOSE METER POCT [...] injection 0-6 Units ( SubCUTAneous Not Given 02/20/230) dextrose 5 % and sodium chloride 0.9 [...] has not taken either of these today. Fmbxh-of-kabm glucose was done here in the emergency [...] condition. I Mariana Snow MD am the primary teaching assistant of record. FINAL IMPRESSION 1. Hypoglycemia DISPOSITION Observation 02/19/2023 08:21:38 AM PATIENT REFERRED TO: See Ricketts MD [address] [facility], [place] [address] Schedule an appointment as soon as possible for a visit in 1 week(s) Hospital follow up - hypoglycemia Al Pemberton MD [address] [facility] [address] [place] [address] Schedule an appointment as soon as possible for a visit Please call to set up new patient appointment within the next 2 weeks [facility] [address] [facility] [phone] Follow up As needed, If symptoms [...] Emergency Medicine Provider Mariana Snow MD 02/20/232019 [facility] 02-16-2023 Evaluation + Plan note Associated Problem(s): Lymphopenia Will repeat CBC with gela-smear next week. Refer to hematology also for further evaluation and treatment [facility] 02-16-2023 Miscellaneous Notes Associated Problem(s): Lymphopenia Will [...] unremarkable in ER documented in this encounter [facility] 02-16-2023 Evaluation + Plan note Associated Problem(s): Thrombocytopenia (HCC) Will recheck platelets next week along with CBC peripheral smear. Refer to hematology [facility] 02-16-2023 Evaluation + Plan note Associated Problem(s): Type 2 diabetes mellitus with polyneuropathy (HCC) Currently poorly controlled, likely secondary to not having all of her diabetic medications due to financial constraints. Patient recently restarted her insulin which should help. Continue to monitor glucose at home we will have her send readings to us in 1 week [facility] 02-16-2023 Evaluation + Plan note Associated Problem(s): Essential hypertension Controlled. Continue labetalol 100 mg twice daily [facility] 02-16-2023 Evaluation + Plan note Associated Problem(s): Acute pain of left knee Improving slightly. Patient to follow-up with sports medicine for further evaluation and treatment. Imaging was unremarkable in ER [facility] 02-16-2023 History of Present illness Narrative Images [...] auto differential - Peripheral blood smear - [facility] Oncology 2. Thrombocytopenia (HCC) Assessment & Plan: Will recheck platelets next week along with CBC peripheral smear. Refer to hematology Orders: - CBC auto differential - [facility] Oncology 3. Type 2 diabetes mellitus with [...] days (around 02/22/2023). SUBJECTIVE/OBJECTIVE: HPI - Melanie Carey (: 1965) is a 57 [...] previously seen by hematology- was seeing In [place]. Does not know what the diagnosis was. Would like to see a different specialist within [facility]. Recent labs also showed leukopenia -lymphopenia which [...] Patient not taking: Reported on 02/01/2023 12/09/22 NICOLE Easley CNP Review of Systems Constitutional: Negative for activity [...] 02/16/2023 4:30 PM documented in this encounter [facility] 02-13-2023 Emergency department Note To XR @1999 Deisi Ladd RN 02/13/232004 [facility] 02-13-2023 Emergency department Note To XR @1999 [...] arthritis. 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 While she was standing at the doorway [...] Father prostate High Blood Pressure Father Other ([id number]) Sister TBI Depression Mother Substance Abuse Brother Heart disease Mother Other ([id number]) Mother Depression Brother SOCIAL HISTORY Social History [...] Housing in the Last Year: No SCREENINGS [place] Coma Scale Best Eye Response: Spontaneous Best Verbal Response: Oriented Best Motor Response: Follows commands [place] Coma Scale Score: 15 PHYSICAL EXAM ED [...] 198 (*) Narrative: Performed by: [facility], [address] [place], [place] [id number] CLIA ID: [id number] TROPONIN I - Normal TROPONIN I <0.012 [...] elevated. Ionized calcium is within normal limits. Qeckr-hi-ppfe blood glucose is 198. Patient states that [...] bedside prior to discharge. Diagnoses as of 02/14/23 0033 Near syncope Medications - No data to display REVAL: CRITICAL CARE TIME None CONSULTS: None PROCEDURES: Unless otherwise noted below, none Procedures Patients symptoms are consistent with sepsis, severe sepsis, or septic shock (If yes use .sepsiscoremeasure): No FINAL IMPRESSION 1. Near syncope DISPOSITION Discharge 02/13/2023 09:25:37 PM PATIENT REFERRED TO: See Ricketts MD [address] [facility], [place] [address] Call in 2 days [facility] [address] [facility] [phone] If symptoms worsen DISCHARGE MEDICATIONS: Discharge [...] signed) Emergency Medicine Provider Nelson Grady MD 02/14/23 0037 documented in this encounter [facility] 02-13-2023 Physician Emergency department Note EMERGENCY DEPARTMENT [...] arthritis. 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 Ionized calcium is within normal limits. Navzf-ns-pfmb blood glucose is 198. Patient states that [...] bedside prior to discharge. Diagnoses as of 02/14/23 0033 Near syncope Medications - No data to display REVAL: CRITICAL CARE TIME None CONSULTS: None PROCEDURES: Unless otherwise noted below, none Procedures Patients symptoms are consistent with sepsis, severe sepsis, or septic shock (If yes use .sepsiscoremeasure): No FINAL IMPRESSION 1. Near syncope DISPOSITION Discharge 02/13/2023 09:25:37 PM PATIENT REFERRED TO: See Ricketts MD [address] [facility], [address] [facility] [address] Call in 2 days [facility] [address] [facility] [phone] If symptoms worsen DISCHARGE MEDICATIONS: Discharge [...] signed) Emergency Medicine Provider Nelson Grady MD 02/14/23 0037 [facility] 02-06-2023 Emergency department Note Ice applied to left knee. Itzel Dela Cruz RN 02/06/232127 [facility] 02-06-2023 Emergency department Note Ice applied to [...] as needed., Starting Rianna 08/20/2022, Historical Med amoxicillin-clavulanate (Augmentin) 875-125 MG tablet Take 1 tablet by mouth in the morning and 1 tablet in the evening. Do all this for 10 days., Starting Rianna 02/04/2023, Until 02/14/2023, Normal aspirin 81 MG EC [...] Father prostate High Blood Pressure Father Other (07493) Sister TBI Depression Mother Substance Abuse Brother Heart disease Mother Other (85200) Mother Depression Brother SOCIAL HISTORY Social History [...] TO: [facility] [address] [facility] [phone] DISCHARGE MEDICATIONS: Discharge Medication List as [...] signed) Emergency Medicine Provider Izabela Noyola DO 02/06/23 2152 Izabela Noyola DO 02/06/23 2218 Patient to room 4 with c/o left knee pain for 2 days. Patient reports painful ambulation and painful with pressure. V/S obtained, call light within reach. documented in this encounter [facility] 02-06-2023 Emergency department Triage note Patient to room 4 with c/o left knee pain for 2 days. Patient reports painful ambulation and painful with pressure. V/S obtained, call light within reach. [facility] 02-06-2023 Physician Emergency department Note EMERGENCY DEPARTMENT [...] as needed., Starting Rianna 08/20/2022, Historical Med amoxicillin-clavulanate (Augmentin) 875-125 MG tablet [...] Father prostate High Blood Pressure Father Other ([id number]) Sister TBI Depression Mother Substance Abuse Brother Heart disease Mother Other ([id number]) Mother Depression Brother SOCIAL HISTORY Social History [...] TO: [facility] [address] [place] [phone] DISCHARGE MEDICATIONS: Discharge Medication List as [...] signed) Emergency Medicine Provider Izabela Noyola DO 02/06/23 2152 Izabela Noyola DO 02/06/23 2218 [facility] 02-04-2023 Hospital Discharge instructions Jarvis Belcher MD - 02/04/2023 11:45 PM EDT Use the Augmentin twice a day for 10 days. Use the Lotrimin cream twice a day for 14 days. You can also use an rmzk-qbo-bfaywxo antifungal powder. In addition keep this area clean and dry is much as possible. Call your doctor tomorrow to be seen in the next 1 to 4 days. 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 [...] days. UNIFINE PENTIPS 31G X 8 MM MISC Cat hair extract, Lisinopril, and Pollen extract FAMILY HISTORY Family History Problem Relation Name Age of Onset Diabetes Mother Heart disease Father Cancer Father prostate High Blood Pressure Father Other ([id number]) Sister TBI Depression Mother Substance Abuse Brother Heart disease Mother Other (34602) Mother Depression Brother SOCIAL HISTORY Social History [...] is regular. Lungs are clear. With female elevator repairer examination of the skin fold of her [...] first dose orally here. Also Lotrimin ointment firl-lyl-pxgqvzs twice a day for 14 days. Can also use antifungal brbz-cmu-vzqxana powder keep the area clean and dry. [...] PM PATIENT REFERRED TO: See Ricketts MD [address] [place] [address], [facility] [address] [place] [phone] In 4 days DISCHARGE MEDICATIONS: New Prescriptions AMOXICILLIN-CLAVULANATE (AUGMENTIN) 875-125 MG TABLET Take 1 tablet by mouth in the morning and 1 tablet in the evening. Do all this for 10 days. CLOTRIMAZOLE (LOTRIMIN) 1 % CREAM Apply 1 Application topically 2 times daily for 14 days. Apply to affected area 2 times daily @[facility]([id number]:LAST:1)@ (Comment: Please notethis report has been produced [...] Attending Emergency Physician Jarvis Belcher MD 02/04/23 8679 documented in this encounter [facility] [facility] 02-04-2023 Physician Emergency department Note [facility] ED EMERGENCY DEPARTMENT ENCOUNTER Pt Name: Melanie Carey Birthdate 1965 Date of evaluation: 02/04/2023 Provider: Jarvis Belcher MD CHIEF COMPLAINT Chief Complaint Patient presents with Abscess Pt c/o open sore to vaginal area. States that it is golfball sized. +bleeding. +drainage. HISTORY OF PRESENT ILLNESS (Location/Symptom, Timing/Onset,Context/Setting, Quality, Duration, Modifying Factors, Severity) Note limiting factors. Mleanie Carey is a 57 y.o. female who presents to the emergency department with concerns for abscess. She says it is a golf ball size in her vaginal area I had a female elevator repairer it is actually in her skin fold. [...] days. UNIFINE PENTIPS 31G X 8 MM MISC Cat hair extract, Lisinopril, and Pollen extract FAMILY HISTORY Family History Problem Relation Name Age of Onset Diabetes Mother Heart disease Father Cancer Father prostate High Blood Pressure Father Other ([id number]) Sister TBI Depression Mother Substance Abuse Brother Heart disease Mother Other ([id number]) Mother Depression Brother SOCIAL HISTORY Social History [...] is regular. Lungs are clear. With female elevator repairer examination of the skin fold of her [...] first dose orally here. Also Lotrimin ointment fmwc-[id number]-[id number] twice a day for 14 days. Can also use antifungal jukm-slu-yvivxvr powder keep the area clean and dry. [...] PM PATIENT REFERRED TO: See Ricketts MD [address] [place] [address], [place] [phone] In 4 days DISCHARGE MEDICATIONS: New Prescriptions AMOXICILLIN-CLAVULANATE (AUGMENTIN) 875-125 MG TABLET Take 1 tablet by mouth in the morning and 1 tablet in the evening. Do all this for 10 days. CLOTRIMAZOLE (LOTRIMIN) 1 % CREAM Apply 1 Application topically 2 times daily for 14 days. Apply to affected area 2 times daily @[facility]([id number]:LAST:1)@ (Comment: Please notethis report has been produced [...] Attending Emergency Physician Jarvis Belcher MD 02/04/232346 [facility] 01-14-2023 Emergency department Note Pt called with no answer multiple times by [employer] and this ANTOINE Avina RN 01/14/232356 Milka Avina RN 01/14/232356 [facility] 01-14-2023 Emergency department Note Pt called with no answer multiple times by [employer] and this ANTOINE Avina RN 01/14/232356 Milka [...] mg) by mouth daily., Starting 12/09/2022, Normal HumuLIN R U-500 KWIKPEN 500 UNIT/ML [...] Father prostate High Blood Pressure Father Other ([id number]) Sister TBI Depression Mother Substance Abuse Brother Heart disease Mother Other ([id number]) Mother Depression Brother SOCIAL HISTORY Social History [...] No SCREENINGS PHYSICAL EXAM ED Triage Vitals [01/14/232152] Temp Heart Rate Resp BP 36 C [...] [facility] (Per Emergency Physician): Interpretation per the [...] CNP 01/15/23 0108 documented in this encounter [facility] 01-14-2023 Physician Emergency department Note EMERGENCY DEPARTMENT ENCOUNTER Pt Name: Raiza Carey Birthdate 1965 Date of evaluation: 01/14/2023 ED Provider: NICOLE Austin CNP I have evaluated this patient on my [...] Father prostate High Blood Pressure Father Other ([id number]) Sister TBI Depression Mother Substance Abuse Brother Heart disease Mother Other ([id number]) Mother Depression Brother SOCIAL HISTORY Social History [...] No SCREENINGS PHYSICAL EXAM ED Triage Vitals [01/14/233] Temp Heart Rate Resp BP 36 C [...] Medicine Provider NICOLE Austin CNP 01/15/23 0108 T [facility] 12-09-2022 Evaluation + Plan note Associated Problem(s): Lip swelling Unsure if r/t herpes vs lisinopril. Swelling no worse at this time. No difficulty swallowing, no shortness of breath. Continue acyclovir. Do not take lisinopril. Monitor blood pressure at home. Send update In 2 days. Consider antibiotic if not improving d/t associated left sided cervical adenopathy (only if not improving) [facility] 12-09-2022 Evaluation + Plan note Associated Problem(s): Depression Stable. Managed by psych [facility] 12-09-2022 Evaluation + Plan note Associated Problem(s): Anxiety Stable. Managed by psych [facility] 12-09-2022 Miscellaneous Notes Associated Problem(s): Lip swelling [...] mg twice daily documented in this encounter [facility] 12-09-2022 Evaluation + Plan note Associated Problem(s): Hyperlipidemia LDL goal <70 Controlled. Not on medications currently.? [facility] 12-09-2022 Evaluation + Plan note Associated Problem(s): Essential hypertension Controlled. Continue labetalol 100 mg every 12 hours. [facility] 12-09-2022 Evaluation + Plan note Associated Problem(s): Chronic obstructive pulmonary disease (HCC) Controlled. Continue cpap [facility] 12-09-2022 Evaluation + Plan note Associated Problem(s): Type 2 diabetes mellitus with polyneuropathy (HCC) Controlled. Hemoglobin A1c 7.2 (10/2022), continue jardiance 25 mg daily, Humulin R U-500 3 times daily as prescribed. Metformin 1000 mg twice daily [facility] 12-09-2022 History of Present illness Narrative Images from the original note were not included. 12/09/2022 Melanie Restrepo (: 1965) is a 57 y.o. female , New patient, here for evaluation of the following chief complaint(s): Establish Care, Health Maintenance (Hep C--declines, HIV--declines, Cervical--does not remember when the last pap was, Colon--last she thinks was in 2019-- Yaakov, Dm eye--had a few months ago [facility] in [place], Dental--hasn't been she has dentures, Hep B--declines, [...] patient, previous primary care provider Ariel in [place], last seen 6 months by previous provider. Specialists/other providers? no Chief complaint(s): Establish Care, Health Maintenance (Hep C--declines, HIV--declines, Cervical--does not remember when the last pap was, Colon--last she thinks was in 2019-- Jabour, Dm eye--had a few months ago [facility] in [place], Dental--hasn't been she has dentures, Hep B--declines, [...] Umbilical Hernia surgery in 10/2022- went well. [facility] Hot flashes at bedtime. Occasional Needs dexcom but needs possible new script- she states she has to check with [employer] insurance. Anxiety/depression- reports controlled. Dr. [facility]. [facility]- previous pharmacy. Past Medical [...] Father prostate High Blood Pressure Father Other ([id number]) Sister TBI Depression Mother Substance Abuse Brother Heart disease Mother Other ([id number]) Mother Depression Brother Social History Socioeconomic History [...] for 7 days. 12/07/22 12/14/22 Yes Catarino Arce, DO albuterol 108 (90 Base) MCG/ACT inhaler [...] 12/09/2022 11:34 AM documented in this encounter [facility] 12-09-2022 Instructions NICOLE Easley CNP - 12/09/2022 11:20 AM EDT night or Wednesday early am with update of condition and blood pressure readings. No lisinopril for now. documented in this encounter [facility] 12-07-2022 Hospital Discharge instructions Catarino Arce DO - 12/07/2022 10:24 AM EDT Stop taking your lisinopril. You should never take an CLAUDY inhibitor again as you may experience similar or worse swelling each time you take them. Discussed with your PCP on Wednesday about additional blood pressure medication regimen. The following attachments cannot be sent through Care Everywhere.Angioedema Caused by CLAUDY Inhibitor Medicines (Qatari)Cold Sores ED (Qatari)documented in this encounter [facility] 12-07-2022 Emergency department Note EMERGENCY DEPARTMENT ENCOUNTER [...] otherwise acutely negative except as in the [place]. PAST MEDICAL HISTORY Past Medical History: Diagnosis [...] Father prostate High Blood Pressure Father Other ([id number]) Sister TBI Depression Mother Substance Abuse Brother Heart disease Mother Other ([id number]) Mother Depression Brother SOCIAL HISTORY Social History [...] 20 mg (20 mg IntraVENous Given 12/07/22 09) prochlorperazine (Compazine) injection 10 mg (10 mg IntraVENous Given 12/07/22 0911) CONSULTS: None PROCEDURES: Unless otherwise noted below, none Procedures Patients symptoms are consistent with sepsis, severe sepsis, or septic shock (If yes use .sepsiscoremeasure): FINAL IMPRESSION 1. Angioedema, initial encounter 2. Lip swelling 3. Cold sore DISPOSITION/PLAN dc PATIENT REFERRED TO: Al Ricketts [address] [address] Schedule an appointment as soon [...] awakening this a.m. documented in this encounter [facility] 12-07-2022 Emergency department Triage note L sided facial swelling upon awakening this a.m. [facility] 12-07-2022 Physician Emergency department Note EMERGENCY DEPARTMENT [...] otherwise acutely negative except as in the [place]. PAST MEDICAL HISTORY Past Medical History: Diagnosis [...] Father prostate High Blood Pressure Father Other ([id number]) Sister TBI Depression Mother Substance Abuse Brother Heart disease Mother Other ([id number]) Mother Depression Brother SOCIAL HISTORY Social History [...] Physician [facility] RAD[facility] (Per Emergency Physician): Interpretation per the [...] discuss alternative antihypertensive medications. Diagnoses as of 12/07/221136 Lip swelling Cold sore Angioedema, initial encounter [...] DISPOSITION/PLAN dc PATIENT REFERRED TO: Al [facility] [address] [address] Schedule an appointment as soon [...] Medicine Provider Catarino Arce DO 12/07/22 1139 [facility] Evaluation note No assessment inform ation available [facility] Work Phone: Evaluation note Diagnosis Onset Date Thrombocytopenia chronic [facility] Work Phone: Evaluation note* Diagnosis Onset Date Resolution Status Thrombocytopenia chronic [id number] acute History of tobacco use acute [facility] Work Phone: Evaluation note* Diagnosis Angioedema, initial encounter- Primary Lip swelling Diseases of lips Cold sore Herpes simplex without mention of complication [facility] [...] Anxiety state, unspecified [facility] Diagnosis Fall, initial encounter- Primary Left hand pain Pain in soft tissues of limb Left wrist pain Pain in joint, forearm Left shoulder pain, unspecified chronicity [facility] Diagnosis Abscess- Primary Cellulitis and abscess of unspecified site Lilly infection Candidiasis of unspecified site [facility] Diagnosis Sprain of left knee, unspecified ligament, initial encounter- Primary [facility]* Diagnosis Near syncope- Primary [facility]* Diagnosis Lymphopenia- Primary Lymphocytopenia Thrombocytopenia (HCC) Unspecified thrombocytopenia Type 2 diabetes mellitus with polyneuropathy (HCC) Type II or unspecified type diabetes mellitus with neurological manifestations, not stated as uncontrolled Acute pain of left knee Essential hypertension Unspecified essential hypertension [facility] Diagnosis Hypoglycemia- Primary Hypoglycemia, unspecified Hypoglycemia Hypoglycemia, unspecified [facility] Diagnosis Strain of neck muscle, initial encounter- Primary [facility] Diagnosis Chest pain, unspecified type- Primary [facility]* [...] Diseases of lips [facility] Diagnosis Pancytopenia (HCC)- Primary [facility] Diagnosis Pancytopenia (HCC)- Primary [facility]* Diagnosis Pancytopenia (HCC) [facility]* Diagnosis Hypoglycemia- Primary Hypoglycemia, unspecified Hypoglycemia Hypoglycemia, unspecified Hypoglycemia, unspecified [facility] Diagnosis Type 2 diabetes mellitus with polyneuropathy (HCC) Type II or unspecified type diabetes mellitus with neurological manifestations, not stated as uncontrolled [facility] Diagnosis Pancytopenia (HCC)- Primary [facility]* Diagnosis Pancytopenia (HCC)- Primary [facility]* Diagnosis 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 Type II or unspecified type diabetes mellitus with neurological manifestations, not stated as uncontrolled [facility] Diagnosis Hyponatremia- Primary Hyposmolality and/or hyponatremia Type 2 diabetes mellitus with polyneuropathy (HCC) Type II or unspecified type diabetes mellitus with neurological manifestations, not stated as uncontrolled Other cirrhosis of liver (HCC) Pancytopenia (HCC) [facility] Diagnosis Type 2 diabetes mellitus with polyneuropathy (HCC) Type II or unspecified type diabetes mellitus with neurological manifestations, not stated as uncontrolled [facility] Diagnosis Type 2 diabetes mellitus treated with insulin (CMS/HCC) (HCC)- Primary documented in this encounter [facility]* Diagnosis Hypoglycemia- Primary Hypoglycemia, unspecified documented in this encounter [facility]* Diagnosis Anxiety Anxiety state, unspecified Essential hypertension Unspecified essential hypertension Type 2 diabetes mellitus with polyneuropathy (HCC) Type II or unspecified type diabetes mellitus with neurological manifestations, not stated as uncontrolled [facility] Diagnosis Acute nonintractable headache, unspecified headache type- Primary [facility] Diagnosis Intertrigo- Primary Other specified erythematous condition [facility] Diagnosis Anxiety Anxiety state, unspecified [facility] Diagnosis Lip swelling- Primary Diseases [...] stated as uncontrolled [facility] Diagnosis Lip swelling- Primary Diseases [...] type (HCC)- Primary [facility] Diagnosis Lip swelling- Primary Diseases [...] 2 diabetes mellitus with hyperglycemia, unspecified whether laborer marine terminal insulin use (HCC)- Primary [facility]* [...] 2 diabetes mellitus with hyperglycemia, unspecified whether laborer marine terminal insulin use (HCC) Type 2 diabetes mellitus [...] 2 diabetes mellitus with hyperglycemia, unspecified whether laborer marine terminal insulin use (HCC) Other cirrhosis of liver [...] bronchitis type (HCC) [facility] [...] hyperglycemia, unspecified whether custodial insulin use (HCC) [facility] Diagnosis Lip swelling- Primary Diseases [...] (HCC) Facial flushing documented in this encounter [facility]* Diagnosis Lip swelling- Primary [...] hyperglycemia, unspecified whether custodial insulin use (HCC) Yeast dermatitis Class 3 severe obesity due to excess calories with serious comorbidity and body mass index (BMI) of 40.0 to 44.9 in adult (HCC) documented in this encounter [facility] Discharge instructions Additional Instructions Your labs are [...] Make sure you are taking your daily aspirin.[facility] Work Phone: [facility] Dis[facility] instructions* Attachments The following attachments cannot be sent through Care Everywhere. * Near Fainting Discharge Instructions (Qatari) documented in this [facility] Discharge instructions* Attachments The following attachments cannot be sent through Care Everywhere. * Chest Pain Discharge Instructions (Qatari) documented in this [facility] Discharge instructions* Attachments The following attachments cannot be sent through Care Everywhere. * Guide to Eating When You Have Diabetes (Q[place]ari) documented in this [facility] Discharge instructions* Attachments The following attachments cannot be sent through Care Everywhere. * Intertrigo Discharge Instructions (Q[place]ari) * Fluconazole, ADULT (Q[place]ari) * Nystatin (Topical), ADULT ([place]ari) documented in this [facility] Discharge instructions* Attachments The following attachments cannot be sent through Care Everywhere. * High Blood Sugar, Adult ED (Qatari) * Acute Kidney Injury ([place]) documented in this [facility] for referral (narrative)* Consultation (Routine) - Pending Review Specialty Diagnoses / Procedures Referred By Contac t Referred To Contact Sports Medicine Diagnoses Sprain of left knee, unspecified ligament, initial encounter Procedures [place] OFFICE/OUTPATIENT NEW HIGH MDM 60-74 MINUTES Izabela Noyola DO [address] [place] [address] [facility] Sm [address] [place] [address] Referral ID Status Reason Start Date Expiration Date Visits Requested Visits Authorized [id number] Pending Review Specialty Services Required 02/06/2023 02/06/2024 1 1 [facility] for referral (narrative)* Consultation (Routine) - Pending Review Specialty Diagnoses / Procedures Referred By Contac t Referred To Contact Hematology and Oncology Diagnoses Lymphopenia Thrombocytopenia (HCC) Procedures [place] OFFICE/OUTPATIENT NEW HIGH [facility] 60-74 MINUTES Scar Seymour, DESTINATION COORDINATOR - TAX ACCOUNTING MANAGER [address] [place] [address] [facility] Onc [address] [place] [address] Referral ID Status Reason Start Date Expiration Date Visits Requested Visits Authorized [id number] Pending Review Specialty Services Required 02/16/2023 02/16/2024 1 1 Electronically signed by Scar Seymour DESTINATION COORDINATOR - TAX ACCOUNTING MANAGER at 02/16/2023 9:13 AM EDT [facility] for referral (narrative)* Consultation (Urgent) - Pending Review Specialty Diagnoses / Procedures Referred By Contac t Referred To Contact Cardiology Diagnoses Chest pain, unspecified type Procedures [place] OFFICE/OUTPATIENT NEW HIGH MDM 60-74 MINUTES Jacqueline, Eder Tavarez MD [address] [place] [address] [facility] Card [address] [place] [address] Referral ID Status Reason Start Date Expiration Date Visits Requested Visits Authorized [id number] Pending Review Specialty Services Required 05/16/2023 05/15/2024 1 1 [facility] Consultation (Routine) - Pending Review Specialty Diagnoses / Procedures Referred By Contac t Referred To Contact Gastroenterology Diagnoses Colon cancer screening Other cirrhosis of liver (HCC) Procedures [place] OFFICE/OUTPATIENT NEW HIGH MDM 60 MINUTES Scar eSymour APRN - CNP [address] [facility] [place] [address] [facility] [address] [place] [address] Referral ID Status Reason Start Date Expiration Date Visits Requested Visits Authorized [id number] Pending Review Specialty Services Required 08/26/2023 08/25/2024 1 1 * Medications - Pending Review Specialty Diagnoses / Procedures Referred By Contac t Referred To Contact Diagnoses Type 2 diabetes mellitus with polyneuropathy (HCC) Scar Seymour APRN - CNP [address] [facility] [place] [address] Referral ID Status Reason Start Date Expiration Date V isits Requested Visits Authorized [id number] Pending Review 1 1 [facility] ([facility] Consultation (Routine) - Pending Review Specialty Diagnoses / Procedures Referred By Contac t Referred To Contact Endocrinology Diagnoses Hypoglycemia Procedures [place] OFFICE/OUTPATIENT NEW HIGH MDM 60 MINUTES Vani Salas PA-C [address] [place] [address] [facility] [address] [place] [address] Referral ID Status Reason Start Date Expiration Date Visits Requested Visits Authorized [id number] Pending Review Specialty Services Required 12/13/2023 12/12/2024 1 1 [facility] Summary Purpose Family History No Family History Records Found Relationship Condition Age at Onset Recorded Date/T renee sister Traumatic brain injury Unknown brother Substance abuse Unknown Depression Unknown father Hypertension Unknown Malignant neoplasm of prostate Unknown Heart disease Unknown mother Depression Unknown Diabetes mellitus Unknown Advance Directives No Advanced Directives Records FoundDocuments on File Type Date Recorded Patient Bottled Beverage Inspector Expl anation Advance Directives and Living Will Power of Steam Fitter Latest Code Status on File Code Status Date Activated Date Inactivated Comments Full Code 10/28/2018 7:29 PM 10/31/2018 7:37 PM Full Code 06/03/2018 6:31 AM 06/03/2018 7:05 PM Full Code 2018 7:42 PM 06/03/2018 6:31 AM Full Code 04/14/2018 11:11 PM 04/15/2018 3:01 PM Documents on File Type Date Recorded Patient Bottled Beverage Inspector Expl anation ACP-Advance Directive ACP-Power of Steam Fitter Advance Directive Response Recorded Date/ Time Living Will No June 05 7:12pm Power of Steam Fitter No June 05, 2021 7:12pm Advance Directive Response Recorded Date/ Time Living Will No March 06 11:53pm Power of Steam Fitter No March 06 11:53pm Advance Directive Response Recorded Date/ Time Living Will No March 06 10:53pm Power of Steam Fitter No March 06 10:53pm Latest Code Status on File Code [...] AM Hospital Course Note Patient ID: Melanie duenaslPatient's PCP: [facility]Discharge Date: 06/03/2018Admitting Physician: Huang Sanchez, DODischarge Physician: Sang Hernández Diagnosis on Admission:Worsening episodic anginaAbnormal MPI with inferolateral and apical ischemiaHTNHLDMorbid envthqiIU6G/O tobacco abuseDischarge Diagnoses:Worsening episodic angina with LHC showing no significant obstructive CADAbnormal MPI with inferolateral and apical ischemiaHTNHLDMorbid rkjyonuQC8I/O tobacco abuseAdditional diagnosis evaluated and treated during the admission: NoneProcedures: LHC on 06/03/18ignificant Diagnostic Studies:Consultants: Sang Preston (Cardiology)Hospital Course: 53 year old lady [...] sent through Care Everywhere. * Chest Pain (Qatari) documented in this encounter Assessments Diagnosis Chest [...] cancer screening screening Reason for Visit Thrombocytopenia [id number] History of tobacco use Chief Complaint SCREENING 1YR NO LABS REVIEW [facility] lab CHEST PAIN CHEST PAIN CHEST PAIN Lung cancer screening screening EORDERS Reason for Visit Thrombocytopenia [id number] History of tobacco use Reason for Referral Specialty Diagnoses / Procedures Referred By Contac t Referred To Contact Deisi Dickens, DESTINATION COORDINATOR - TAX ACCOUNTING MANAGER [address] [place] [address] Referral ID Status Reason Start Date Expiration Date V isits Requested Visits Authorized [id number] Pending Review 1 1 Specialty Diagnoses / Procedures Referred By Contac t Referred To Contact Diagnoses Type 2 diabetes mellitus with polyneuropathy (HCC) Scar Seymour, DESTINATION COORDINATOR - TAX ACCOUNTING MANAGER [address] [facility] [place] [address] Referral ID Status Reason Start Date Expiration Date V isits Requested Visits Authorized [id number] Pending Review 1 1 Referral ID Status Reason Start Date Expiration Date V isits Requested Visits Authorized [id number] Pending Review 1 1 Referral ID Status Reason Start Date Expiration Date Visits Re quested Visits Authorized [id number] Denied 1 1 Referral ID Status Reason Start Date Expiration Date Visits Re quested Visits Authorized [id number] Denied 1 1 Additional Source Comments INFORMATION SOURCE (unrecogn ized section and content) DATE CREATED AUTHOR 07/06/2018 [facility] DATE CREATED AUTHOR AUTHOR'S ORGANIZ ATION 09/24/2019 [facility] DATE CREATED AUTHOR AUTHOR'S ORGANIZ ATION 06/21/2020 [facility] DATE CREATED AUTHOR AUTHOR'S ORGANIZ ATION 08/03/2020 [facility] DATE CREATED AUTHOR AUTHOR'S ORGANIZ ATION 12/13/2024 [facility] DATE CREATED AUTHOR AUTHOR'S ORGANIZ ATION 12/17/2024 [facility] Reason for Visit (unrecogniz ed section and content) Reason Comments Chest Pain Mid-sternal CP that started last night and radiates to her back. Pt stated she is having SOB BUT NOT ANY WORSE THAN NORMAL Reason Comments Facial Swelling Reason Comments Establish Care Health Maintenance Hep C--declines, HIV --declines, Cervical--does not remember when the last pap was, Colon--last she thinks was in 2020-- Yaakov, Dm eye--had a few months ago [facility] in [place], Dental--hasn't been she has dentures, Hep B--declines, [...] Annual Exam Health Maintenance Hep A/B-discussHIV/H ep J-tbbknooaLSN-hbcfmluqDtmzrv-declinedDM eye-needs to be scheduledDM Vetdon-wnegmbecGNM-vwmznybaoGok smear-needs shfhrabmoWxmzsf-mwkfnwcoZfjoi-uzhlevWbhdy-pendedFlu-declinedCovid- declinedMammo-pended Hypertension Diabetes Depression Anxiety Reason Comments New Patient Reason Comments Altered Mental Status Specialty Diagnoses / Procedures Referred By Contac t Referred To Contact Diagnoses Hypoglycemia Procedures . Jarvis Falnnery MD [address] [place] [address] [facility] [address] [place] [address] Referral ID Status Reason Start Date Expiration Date Visits Re quested Visits Authorized [id number] 1 1 Reason Onset Date Comments Med [...] completedPneumococcal Vaccine-declinedCervical Cancer Screening-declinedColorectal Cancer Screening-declinedDiabetes: Urine Gjxpzxc-Tqonbgrgdw-hsgmivSfcatxdkd-pendedDiabetes: Foot Exam-pendedDepression Monitoring-NEEDS DONEInfluenza Vaccine-had completed Reason [...] 24 hours. 2021 (Given - Provider: Rayne Martell RN) aspirin chewable tablet 81 mg (COMPLETED) 81 mg, Oral, Once, On Rianna 02/18/23 at 2155, For 1 dose 2208 (Given - Provider: Rabia Varma RN) buPROPion [...] Isabel Parson RN)2233 (Given - Provider: Rayne aMrtell RN) 0755 (Given - Provider: Jahaira Galvez, [...] dose 2235 (New Bag - Provider: Rabia Varma, ANTOINE) insulin glargine (Lantus) injection 15 Units 15 Units, SubCUTAneous, Every morning, First dose on Wed02/19/23 at 1530 1530 (Given - Provider: Hui Lezama, ANTOINE) 0900 (Given - Provider: Jahaira Galvez, ANTOINE) [...] Lezama RN) 0800 (Given - Provider: Jahaira Galvez, ANTOINE)1200 (Given - Provider: Jahaira Galvez, RN)1700 (Not Given - Provider: Jahaira Galvez [...] IV Fluids Infusing)2234 (Given - Provider: Rayne Martell, ANTOINE) 0950 (Given - Provider: Jahaira Galvez, ANTOINE) PRN Medication Order 02/18/2023 02/19/2023 02/20/2023 acetaminophen (Tylenol) suppository 650 mg 650 mg, Rectal, Every 6 hours PRN, mild pain (1-3), fever, For temp greater than 100.4 F (38 C), Starting on Wed02/18/23 at 2146, Administer if oral route cannot be used. Maximum dose of acetaminophen is 4000 mg from all sources in 24 hours. albuterol 108 (90 Base) MCG/ACT inhaler 2 puff 2 puff, Inhalation, Every 6 hours PRN, wheezing, Starting on Wed02/18/23 at 2149 dextrose 10 % infusion 200 [...] Every 8 hours PRN, itching, Starting on Rianna 02/18/23 at 2150 ondansetron (Zofran) injection 4 mg(Linked Group 1) 4 mg, IntraVENous, Every 6 hours PRN, nausea, vomiting, Starting on Rianna 02/18/23 at 2146, 1st Line. Give IV if patient is unable to take orally. If inadequate response within 60 minutes, proceed to next-line agent or contact provider if no further options ordered. ondansetron ODT (Zofran-ODT) disintegrating tablet 4 mg(Linked Group 1) 4 mg, Oral, Every 8 hours PRN, nausea, vomiting, Starting on Rianna 02/18/23 at 2146, 1st Line. If inadequate response within 60 minutes, proceed to next-line agent or contact provider if no further options ordered. Patient should allow tablet to dissolve on tongue. Do not remove from blister pack until just before administering. polyethylene glycol (PEG) 3350 (Miralax) packet 17 g 17 g, Oral, Daily PRN, constipation, Starting on Rianna 02/18/23 at 2146, 1st line for treatment of [...] mg (COMPLETED) 5 mg, Oral, Once, On 03/15/23 at 1035, For 1 dose 1051 (Given - Provid er: Avtar Sorto) Lidocaine 4 % patch 1 patch 1 patch, TransDERmal, Administer over 12 Hours, Once, On 03/15/23 at 1035, For 1 dose, Apply patch to neck. Patch may remain in place for up to 12 hours in any 24 hour period. 1051 (Medication Garret lied - Provider: Avtar Sorto)1215 (Due: Medication Removed - Provider: Automatic Discharge Provider - Comment: Time automatically adjusted from order being discontinued) ondansetron ODT (Zofran-ODT) disintegrating tablet 4 mg (COMPLETED) 4 mg, Oral, Once, On 03/15/23 at 1035, For 1 dose 1051 (Given [...] 75 mL/hr, IntraVENous, Once, On Wed10/11/23 at 2044, For 1 dose 2047 (New Bag - [...] - Reason: Other - Comment: Per endrocronologist ACCIDENT EXAMINER since patient ate prior to BGT check)1700 [...] ider: Kandis Belcher RN)1340 (Stopped - Provider: Kandis Belcher RN) valproate (Depacon) 500 mg in sodium chloride 0.9 % 100 mL IVPB (COMPLETED) 500 mg, IntraVENous, at 100 mL/hr, Administer over 60 Minutes, Once, On 02/19/24 at 1600, For 1 dose 1707 (New Bag - Prov ider: Kandis Belcher RN)1807 (Stopped - Provider: Kandis Belcher RN) PRN Medication Order 02/17/2024 02/18/2024 02/19/2024 fezhlhtcnf-mdwyjudazefow-tjozcig e 50-325-40 MG per tablet 1 tablet 1 tablet, Oral, Every 4 hours PRN, headaches, Starting on 02/19/24 at 1533 1603 (Given - Provid er: Kandis Belcher RN) Scheduled Medication Order 09/25/2024 09/26/2024 09/27/2024 acetaminophen (Tylenol) tablet 650 mg (COMPLETED) 650 mg, Oral, Once, On Wed09/27/24 at 1535, For 1 dose, Maximum dose of acetaminophen is 4000 mg from all sources in 24 hours. 1550 (Given - Provid er: Yogesh Holloway RN) Insulin Lispro (Humalog) injection 10 Units (COMPLETED) 10 Units, SubCUTAneous, Once, On Wed09/27/24 at 1535, For 1 dose 1550 (Given - Provid er: Yogesh Holloway RN) lactated ringers bolus 1,000 mL(Linked Group 1) 1,000 mL, IntraVENous, at 1,000 mL/hr, Administer over 1 Hours, Every 1 hour, First dose on Wed09/27/24 at 1500, For 2 doses 1549 (New Bag - Prov ider: Yogesh Holloway RN)1600 (Not Given - Provider: Yogesh Holloway RN - Reason: Other - Comment: repeat order)1651 (Stopped - Provider: Yogesh Holloway RN) sodium chloride 0.9 % bolus 1,000 mL (COMPLETED) 1,000 mL, IntraVENous, at 1,000 mL/hr, Administer over 1 Hours, Once, On Wed09/27/24 at 1545, For 1 dose 1555 (New Bag - Prov ider: Yogesh Holloway RN)1655 (Stopped - Provider: Yogesh Holloway RN) Continuous Medication Order 09/25/2024 09/26/2024 09/27/2024 lactated Ringer's infusion(Linked Group 1) 500 mL/hr, IntraVENous, Continuous, Starting on Wed09/27/24 [...] Care Teams (unrecognized sec tion and content) Inspector Motor Vehicles Relationship Specialty Start Date End Date Al Ricketts [address] [place] [phone] PCP - General 12/07/22 Inspector Motor Vehicles Relationship Specialty Start Date End [place] [address] PCP - General Family Medicine 12/09/22 Inspector Motor Vehicles Relationship Specialty Start Date End Date See Ricketts MD [address] [place] [id number] PCP - General Family Medicine 12/09/22 Argenis Mosher LISW Generator Repairer Licensed Independent Generator Repairer 12/30/22 Inspector Motor Vehicles Relationship Specialty Start Date End Date See Ricketts MD [address] [place] [address] PCP - General Family Medicine 12/09/22 Argenis Mosher LISW Generator Repairer Licensed Independent Generator Repairer 12/30/22 Inspector Motor Vehicles Relationship Specialty Start Date End Date See Ricketts MD [address] [facility] [place] [address] PCP - General Family Medicine 12/09/22 Argenis Mosher, JIMBO Generator Repairer Licensed Independent Generator Repairer 12/30/22 Inspector Motor Vehicles Relationship Specialty Start Date End Date See Ricketts MD [address] [facility] [place] [address] PCP - General Family Medicine 12/09/22 Argenis Mosher, JIMBO Generator Repairer Licensed Independent Generator Repairer 12/30/22 Inspector Motor Vehicles Relationship Specialty Start Date End Date See Ricketts MD [address] [facility] [place] [address] PCP - General Family Medicine 12/09/22 Argenis Mosher, JIMBO Generator Repairer Licensed Independent Generator Repairer 12/30/22 Inspector Motor Vehicles Relationship Specialty Start Date End Date See Ricketts MD [address] [facility] [place] [address] PCP - General Family Medicine 12/09/22 Argenis Mosher, JIMBO Generator Repairer Licensed Independent Generator Repairer 12/30/22 Inspector Motor Vehicles Relationship Specialty Start Date End Date See Ricketts MD [address] [facility] [place] [address] PCP - General Family Medicine 12/09/22 Argenis Mosher, JIMBO Generator Repairer Licensed Independent Generator Repairer 12/30/22 Inspector Motor Vehicles Relationship Specialty Start Date End Date See Ricketts MD [address] [facility] [place] [address] PCP - General Family Medicine 12/09/22 Argenis Mosher LISW Generator Repairer Licensed Independent Generator Repairer 12/30/22 Inspector Motor Vehicles Relationship Specialty Start Date End Date See Ricketts MD [facility] [place] [address] PCP - General Family Medicine 12/09/22 Inspector Motor Vehicles Relationship Specialty Start Date End Date See Ricketts MD [facility] [place] [address] PCP - General Family Medicine 12/09/22 Inspector Motor Vehicles Relationship Specialty Start Date End Date See Ricketts MD [facility] [place] [address] PCP - General Family Medicine 12/09/22 Inspector Motor Vehicles Relationship Specialty Start Date End Date See Ricketts MD [facility] [place] [address] PCP - General Family Medicine 12/09/22 Angel Juan MD [address] [facility] [address] [place] [address] Medical Oncology 09/22/23 Inspector Motor Vehicles Relationship Specialty Start Date End Date See Ricketts MD [facility] [place] [address] PCP - General Family Medicine 12/09/22 Angel Juan MD [address] [place] [address] Medical Oncology 09/22/23 Inspector Motor Vehicles Relationship Specialty Start Date End Date See Ricketts MD [address] [place] [address] [facility] [place] [address] PCP - General Family Medicine 12/09/22 Angel Juan MD [address] [place] [address] Medical Oncology 09/22/23 Inspector Motor Vehicles Relationship Specialty Start Date End Date See Ricketts MD [address] [place] [address] [facility] [place] [place] [address] PCP - General Family Medicine 12/09/22 Angel Juan MD [address] [place] [address] Medical Oncology 09/22/23 Inspector Motor Vehicles Relationship Specialty Start Date End Date See Ricketts MD [address] [place] [address] [facility] [place] [place] [address] PCP - General Family Medicine 12/09/22 Angel Juan MD [address] [place] [address] Medical Oncology 09/22/23 Inspector Motor Vehicles Relationship Specialty Start Date End Date See Ricketts MD [address] [place] [address] [facility] [place] [place] [address] PCP - General Family Medicine 12/09/22 Angel Juan MD [address] [place] [address] Medical Oncology 09/22/23 Inspector Motor Vehicles Relationship Specialty Start Date End Date See Ricketts MD [address] [place] [address] [facility] [place] [address] PCP - General Family Medicine 12/09/22 Angel Juan MD [address] [place] [address] Medical Oncology 09/22/23 Inspector Motor Vehicles Relationship Specialty Start Date End Date See Ricketts MD [facility] [place] [address] PCP - General Family Medicine 12/09/22 Angel Juan MD [address] [facility] [address] [place] [address] Medical Oncology 09/22/23 Inspector Motor Vehicles Relationship Specialty Start Date End Date See Ricketts MD [facility] [place] [address] PCP - General Family Medicine 12/09/22 Angel Juan MD [address] [place] [address] Medical Oncology 09/22/23 Inspector Motor Vehicles Relationship Specialty Start Date End Date See Ricketts MD [address] [place] [address] [facility] [place] [address] PCP - General Family Medicine 12/09/22 Angel Juan MD [address] [place] [address] Medical Oncology 09/22/23 Inspector Motor Vehicles Relationship Specialty Start Date End Date See Ricketts MD [address] [place] [address] [place] [address] PCP - General Family Medicine 12/09/22 Angel Juan MD [address] [facility] [address] [place] [address] Medical Oncology 09/22/23 Inspector Motor Vehicles Relationship Specialty Start Date End Date See Ricketts MD [address] [place] [address] [place] [address] PCP - General Family Medicine 12/09/22 Angel Juan MD [address] [facility] [address] [place] [address] Medical Oncology 09/22/23 Inspector Motor Vehicles Relationship Specialty Start Date End Date See Ricketts MD [address] [place] [address] [place] [address] PCP - General Family Medicine 12/09/22 Angel Juan MD [address] [facility] [address] [place] [address] Medical Oncology 09/22/23 Inspector Motor Vehicles Relationship Specialty Start Date End Date See Ricketts MD [address] [place] [address] [place] [address] PCP - General Family Medicine 12/09/22 Angel Juan MD [address] [facility] [address] [place] [address] Medical Oncology 09/22/23 Inspector Motor Vehicles Relationship Specialty Start Date End Date See Ricketts MD [address] [place] [address] PCP - General Family Medicine 12/09/22 Angel Juan MD [address] [facility] [address] [place] [address] Medical Oncology 09/22/23 Inspector Motor Vehicles Relationship Specialty Start Date End Date See Ricketts MD [address] [place] [address] [address] PCP - General Family Medicine 12/09/22 Angel Juan MD [address] [facility] [address] [place] [address] Medical Oncology 09/22/23 Inspector Motor Vehicles Relationship Specialty Start Date End Date See Ricketts MD [address] [place] [address] PCP - General Family Medicine 12/09/22 Angel Juan MD [address] [facility] [address] [place] [address] Medical Oncology 09/22/23 Inspector Motor Vehicles Relationship Specialty Start Date End Date See Ricketts MD [address] [place] [address] PCP - General Family Medicine 12/09/22 Angel Juan MD [address] [facility] [address] [place] [address] Medical Oncology 09/22/23 Inspector Motor Vehicles Relationship Specialty Start Date End Date See Ricketts MD [address] [place] [address] PCP - General Family Medicine 12/09/22 Angel Juan MD [address] [facility] [address] [place] [address] Medical Oncology 09/22/23 Inspector Motor Vehicles Relationship Specialty Start Date End Date See Ricketts MD [address] [place] [address] PCP - General Family Medicine 12/09/22 Angel Juan MD [address] [place] [address] [address] [place] [address] Medical Oncology 09/22/23 Inspector Motor Vehicles Relationship Specialty Start Date End Date See Ricketts MD [address] [place] [address] PCP - General Family Medicine 12/09/22 Angel Juan MD [address] [place] [address] [address] [place] [address] Medical Oncology 09/22/23 Inspector Motor Vehicles Relationship Specialty Start Date End Date See Ricketts MD [address] [place] [address] PCP - General Family Medicine 12/09/22 Angel Juan MD [address] [facility] [address] [place] [address] Medical Oncology 09/22/23 Inspector Motor Vehicles Relationship Specialty Start Date End Date See Ricketts MD [address] [place] [address] PCP - General Family Medicine 12/09/22 Angel Juan MD [address] [facility] [address] [place] [address] Medical Oncology 09/22/23 Inspector Motor Vehicles Relationship Specialty Start Date End Date See Ricketts MD [address] [place] [address] PCP - General Family Medicine 12/09/22 Angel Juan MD [address] [facility] [address] [place] [address] Medical Oncology 09/22/23 Inspector Motor Vehicles Relationship Specialty Start Date End Date [place] [address] PCP - General Family Medicine 12/09/22 Angel Juan MD [address] [place] [address] [address] [place] [address] Medical Oncology 09/22/23 Inspector Motor Vehicles Relationship Specialty Start Date End Date See Ricketts MD [address] [place], [place] [address] [address] PCP - General Family Medicine 12/09/22 Angel Juan MD [address] [facility] [address] [place] [address] Medical Oncology 09/22/23 Inspector Motor Vehicles Relationship Specialty Start Date End Date See Ricketts MD [facility] [place] [address] PCP - General Family Medicine 12/09/22 Angel Juan MD [address] [facility] [address] [place] [address] Medical Oncology 09/22/23 Inspector Motor Vehicles Relationship Specialty Start Date End Date See Ricketts MD [address] [place] [address] PCP - General Family Medicine 12/09/22 Angel Juan MD [address] [address] Medical Oncology 09/22/23 Inspector Motor Vehicles Relationship Specialty Start Date End Date See Ricketts MD [address] [place] [address] PCP - General Family Medicine 12/09/22 Angel Juan MD [address] [address] Medical Oncology 09/22/23 Inspector Motor Vehicles Relationship Specialty Start Date End Date See Ricketts MD [address] [place] [address] PCP - General Family Medicine 12/09/22 Angel Juan MD [address] [address] Medical Oncology 09/22/23 FOR RECORDS PERTAINING TO [...] BE BASED ON THE PRIMARY CLINICAL RECORDS. [facility]. provides no warranty or guarantee of the accuracy or completeness of information in this document.
--- NOTE | 2024-12-18 06:38 | PCM.PRE.AN2 ---
ASA Classification* ASA Classification ASA Classification: 3 Assessment & Plan Anesthesia* Anesthesia Assessment Anesthesia Assessment: Discussed sedation and/or anesthesia options, risks, benefits, and alternatives with patient/parents/legal guardian/POA. Questions invited. The patient/parents/legal guardian/POA seems to understand and agrees to proceed with anesthesia plan. Reviewed the physical assessment, medical history, allergy history and patient home medications list prior to surgery/procedure/anesthetic and documented any changes. Performed airway and anesthesia risk assessments. Anesthesia Type Anesthesia Type: MAC Anesthesia Focused Assessment* Airway Assessment Mouth opens: >3 cm Mallampati Score: II Labs Anesthesia Preop lab: CBC WBC 3.6 K/mm3 (4.4-11.0) L 12/16/24 08:17 12/16/24 RBC 4.14 M/mm3 (4.2-5.4) L 12/16/24 08:17 12/16/24 Hgb 11.6 g/dL (12.0-15.0) L 12/16/24 08:17 12/16/24 Hct 34.7 % (37-47) L 12/16/24 08:17 12/16/24 Plt Count 52 K/mm3 (150-450) L 12/16/24 08:17 12/16/24 CHEMISTRY Potassium 4.8 mmol/L (3.3-5.1) 12/08/24 07:17 12/08/24 Sodium 135 mmol/L (133-145) 12/08/24 07:17 12/08/24 BUN 16 mg/dL (4-19) 12/08/24 07:17 12/08/24 Creatinine 1.12 mg/dL (0.70-1.20) 12/08/24 07:17 12/08/24 Glucose 272 mg/dL (70-99) H 12/08/24 07:17 12/08/24 POC Glucose 126 mg/dL (74-106) H 11/04/22 12:57 11/04/22 COAG PT 14.1 SECONDS (11.7-14.9) 10/31/24 16:21 10/31/24 Pre-Assessment Diagnosis/Proposed Procedure Planned Operative Procedure(s): EGD, CSCOPE Anesthesia History Anesthesia History - seo intern: Anesthesia History - seo intern Hx Hospitalization No 12/14/24 10:48 Any Problems With Anesthesia No 12/14/24 10:48 Cholinesterase deficiency No 12/14/24 10:48 You/Your Family Experience No 12/14/24 10:48 fever (hyperthermia) with Relationship Recent Exposure to Contagious No 11/04/22 10:44 Disease Does patient have nerve No 12/14/24 10:48 stimulator Patient instructed to have device shut off --Does patient have Pacemaker or ICD? When Was Last Pacemaker Check QUESTION #4 FULL TEXT: You/Your Family Experience fever (hyperthermia) with Anesthesia Last Oral Intake Last Oral intake: Last Oral Intake NPO since Meds taken in AM with sips of water? 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 - seo intern: PONV - seo intern Female Yes 12/14/24 10:48 HX of Motion Sickness No 12/14/24 10:48 HX of N/V After Surgery No 12/14/24 10:48 Non-Smoker Yes 12/14/24 10:48 Duration of Surgery greater No 12/14/24 10:48 than 60 minutes Number of Risk Factors 2 12/14/24 10:48 PONV Score Moderate Risk 12/14/24 10:48 Height & Weight Height & Weight: Anesthesia: Height & Weight Height 5 ft 5 in 11/15/24 09:05 Respiratory Assessment Respiratory Assessment - seo intern: Respiratory Tract Infection Hx - seo intern Hx Respiratory Tract Infection No 12/14/24 10:48 STOP Sleep Apnea STOP Sleep Apnea - seo intern: STOP Sleep Apnea - seo intern Hx Hypertension No 12/14/24 10:48 Hx Sleep Apnea Yes: MACHINE BROKE, NEVER 12/14/24 10:48 REPLACED CPAP Yes 12/14/24 10:48 BIPAP No 12/14/24 10:48 Do you snore loudly (louder than talking or can be heard Do you often feel tired/ fatigued/ sleepy during daytime? Has anyone observed you stop breathing during sleep? STOP Results Positive 12/14/24 10:48 QUESTION #5 FULL TEXT : Do you snore loudly (louder than talking or can be heard through closed doors)? Tobacco Use History Tobacco Use History - seo intern: Tobacco Use History - seo intern Tobacco Use Smoking Status Former smoker 12/14/24 10:48 Hx Tobacco Use No 12/14/24 10:48 Years Smoking Packs Smoked per Day Smoking Cessation Date was No - quit smoking greater 12/14/24 10:48 within the last 15 years than 15 years ago Hx Smoking Cessation Date 07/12/06 12/14/24 10:48 Hx Smoking Cessation No 12/14/24 10:48 Counseling Hematologic Medial History Hematologic Hx - seo intern: Hematologic Medical Hx - gum rolling machine tender Hx of Blood Transfusion No 12/14/24 10:48 Hx of Transfusion in last 3 No 12/14/24 10:48 Months Date of Last Transfusion (if within last 3 months) Ever experience any problems No 12/14/24 10:48 with transfusion(s)? Specify any problems Hx of Preganancy in last 3 N/A 12/14/24 10:48 Months Nurse Filling Out Transfusion NBUCHER 12/14/24 10:48 & Questions: Date: 12/14/24 12/14/24 10:48 Time: 10:50 12/14/24 10:48 Patient unable to answer at this time (ie. confused, unrespo /Reproduction History /Reproductive History - seo intern: /Reproductive Hx- seo intern Hx Now No 12/14/24 10:48 Gestational Age (in weeks): EDC: Hx Hx Para Hx Section SAB No 12/14/24 10:48 Active Medications Active Medications: Current Medications Generic Name Dose Route Start Last Admin Trade Name Freq PRN Reason Stop Dose Admin Lactated Ringer's 1,000 mls @ 15 mls/hr 12/18/24 06:15 IV .Q48H RORY PFSH Medical History Arthritis Anemia High cholesterol History of Crohn's disease History of IBS GERD (gastroesophageal reflux disease) Sleep apnea PVT (portal vein thrombosis) Pancytopenia Liver disease Loss of hearing Wears glasses Wears dentures Post-menopausal History of steroid therapy Insulin dependent diabetes mellitus Restless legs Back pain Dietary restriction Heartburn History of ulceration Colitis Former smoker CPAP (continuous positive airway pressure) dependence Shortness of breath on exertion Asthma Chronic cough Leg cramps History of edema History of echocardiogram History of stress test Cardiology follow-up encounter Disease of gingiva due to infection Incisional hernia Lung infection MDD (major depressive disorder) Allergies Contact with and (suspected) exposure to other viral communicable diseases URI (upper respiratory infection) Concussion History of tobacco use Encounter for screening for malignant neoplasm of lung in former smoker who quit in past 15 years with 30 pack year history or greater Trochanteric bursitis of left hip Right leg weakness Rectal bleed Hemorrhoids Fatigue Elevated transaminase level COPD (chronic obstructive pulmonary disease) Proteinuria Osteoarthritis Obesity Anxiety Hyperglycemia Hyponatremia Essential hypertension Migraines Depression Thrombocytopenia Home Medications ?Medication ?Instructions ?Recorded ?Last Taken ?Type albuterol sulfate 90 mcg/actuation 2 puff inhalation Q6H PRN PRN 07/29/20 10/01/23 History aerosol inhaler Shortness Of Breath labetalol 100 mg tablet 100 mg PO BID 07/29/20 12/17/24 History metformin 1,000 mg tablet 1,000 mg PO BIDCM 07/29/20 12/17/24 History bupropion HCl 300 mg 24 hr tablet, 300 mg PO QAM 30 days #30 tabs 02/01/23 12/17/24 Rx extended release buspirone 10 mg tablet 10 mg PO BID 10/31/24 12/17/24 History glimepiride 4 mg tablet 4 mg PO QAM 10/31/24 12/17/24 History insulin glargine 100 unit/mL 16 unit subcut QHS 10/31/24 12/16/24 History subcutaneous solution (Lantus U-100 Insulin) lactulose 10 gram/15 mL oral 10 g (15 mL) PO QDAY 90 days 10/31/24 12/15/24 Rx solution #1,350 mL mecobalamin (vitamin B12) 10,000 10,000 mcg IM QMONTH 10/31/24 12/11/24 History mcg solution for injection rosuvastatin 5 mg tablet 5 mg PO QDAY 10/31/24 12/17/24 History tirzepatide 5 mg/0.5 mL 5 mg subcut QWEEK 10/31/24 12/10/24 History subcutaneous pen injector (Ibrahima) apixaban 2.5 mg tablet (Eliquis) 2.5 mg PO BID #60 tabs 11/29/24 12/12/24 Rx peg 3350-electrolytes 236 240 ml PO Q10M #4,000 mL 06/02/25 06/08/25 Rx gram-22.74 gram-6.74 gram-5.86 gram solution (Golytely) ondansetron HCl 4 mg tablet 4 mg PO Q6H PRN nausea and 12/14/24 12/16/24 Rx vomiting #20 tabs pantoprazole 40 mg tablet,delayed 40 mg PO BID #60 tabs 12/14/24 12/17/24 Rx release Allergy/AdvReac Type Severity Reaction Status Date / Time cat dander Allergy Severe Swelling Verified 12/14/24 10:44 lisinopril AdvReac Intermediate edema and Verified 12/14/24 10:44 difficulty breathing Family History Sister TBI (traumatic brain injury) Colon cancer Brother Substance abuse Depression Seizures Father Hypertension Prostate cancer Heart disease Arthritis Myocardial infarction Kidney disease Mother Depression Heart disease Diabetes Asthma Osteoporosis Respiratory disease Surgical History H/O tooth extraction History of incisional hernia repair History of tonsillectomy and adenoidectomy History of endometrial ablation H/O colonoscopy History of cholecystectomy Status post carpal tunnel release H/O cardiac catheterization Social History household members: spouse Smoking Status: Former smoker alcohol intake: never substance use type: does not use Review of Systems (Anesthesia) ROS Narrative System reviewed and no additional complaints, except as documented.
[2024-12-18] MEDS: Lactated Ringers 1,000 ML 15 ML IV (06:44)
--- NOTE | 2024-12-18 06:54 | PCM.HP.STD ---
HPI - General General Date of Admission: 12/18/24 Date of Service: 12/18/24 Chief Complaint: abdominal pain and diarrhea HPI Narrative JESE CAREY, is a 59 F who presentsr - Seen in the office today with her - reports she has seen Dr. Nuno in the past and diagnosed with UC and most recent colonoscopy revealed Crohn's - reports with initial diagnosis of severe UC she had diarrhea, mucus and bleeding treated with Asacol - states once symptoms resolved she discontinued Asacol Colon states this revealed Crohn's - she has been on Mounjaro for 3 months - she is not having a BM daily Autoimmune: denies ?Meds: ?ALCOHOL: denies ?NSAIDS: alternating tylenol 975mg QD or IBU 1000mg QD - recently prescribed Meloxicam 7.5mg BID Jaundice: denies ?Ascites: uncertain ?Tattoo: denies ?IVDU: denies Blood Transfusion: denies ?Any h/o DVT: denies ?FAMILY h/o liver disease: denies CBC: 08/26/2024 WBC 3.1, HGB 11.9, PLT 58 LP: BMP: 04/23/2024 BUN 10, Creat 1.06, Na 134, K+ 4.0 PT/INR: AFP: MELD: unable to calculate without appropriate labs - will order today ASTERIXIS: none noted ENCEPHALOPATHY: No previously reported episodes. Denies any change in mental status. DIET: Patient has been counseled to follow a strict low sodium diet. WEIGHT: within the past couple months her weight is stable PULSE: Labetalol 100mg BID - HR 71 FIBROSCAN: not previously performed LIVER BX: not previously performed ABD US 09/30/2023 hepatomegaly with fatty infiltration, splenomegaly, large main portal vein, trace ascites, findings of portal hypertension CT 04/19/2023 Umbilical hernia with ascitic fluid. Cirrhosis. Splenomegaly. Moderate ascites. Paraesophageal varices. Mild retroperitoneal adenopathy. PARA: not previously performed DOPPLER: not previously performed EGD: per patient >5 years ago RECALL COLONOSCOPY - per patient she is due now [facility] Medical History Arthritis Anemia High cholesterol History of Crohn's disease History of IBS GERD (gastroesophageal reflux disease) Sleep apnea PVT (portal vein thrombosis) Pancytopenia Liver disease Loss of hearing Wears glasses Wears dentures Post-menopausal History of steroid therapy Insulin dependent diabetes mellitus Restless legs Back pain Dietary restriction Heartburn History of ulceration Colitis Former smoker CPAP (continuous positive airway pressure) dependence Shortness of breath on exertion Asthma Chronic cough Leg cramps History of edema History of echocardiogram History of stress test Cardiology follow-up encounter Disease of gingiva due to infection Incisional hernia Lung infection MDD (major depressive disorder) Allergies Contact with and (suspected) exposure to other viral communicable diseases URI (upper respiratory infection) Concussion History of tobacco use Encounter for screening for malignant neoplasm of lung in former smoker who quit in past 15 years with 30 pack year history or greater Trochanteric bursitis of left hip Right leg weakness Rectal bleed Hemorrhoids Fatigue Elevated transaminase level COPD (chronic obstructive pulmonary disease) Proteinuria Osteoarthritis Obesity Anxiety Hyperglycemia Hyponatremia Essential hypertension Migraines Depression Thrombocytopenia Home Medications ?Medication ?Instructions ?Recorded ?Last Taken ?Type albuterol sulfate 90 mcg/actuation 2 puff inhalation Q6H PRN PRN 07/29/20 10/01/23 History aerosol inhaler Shortness Of Breath labetalol 100 mg tablet 100 mg PO BID 07/29/20 12/17/24 History metformin 1,000 mg tablet 1,000 mg PO BIDCM 07/29/20 12/17/24 History bupropion HCl 300 mg 24 hr tablet, 300 mg PO QAM 30 days #30 tabs 02/01/23 12/17/24 Rx extended release buspirone 10 mg tablet 10 mg PO BID 10/31/24 12/17/24 History glimepiride 4 mg tablet 4 mg PO QAM 10/31/24 12/17/24 History insulin glargine 100 unit/mL 16 unit subcut QHS 10/31/24 12/16/24 History subcutaneous solution (Lantus U-100 Insulin) lactulose 10 gram/15 mL oral 10 g (15 mL) PO QDAY 90 days 10/31/24 12/15/24 Rx solution #1,350 mL mecobalamin (vitamin B12) 10,000 10,000 mcg IM QMONTH 10/31/24 12/11/24 History mcg solution for injection rosuvastatin 5 mg tablet 5 mg PO QDAY 10/31/24 12/17/24 History tirzepatide 5 mg/0.5 mL 5 mg subcut QWEEK 10/31/24 12/10/24 History subcutaneous pen injector (Ibrahima) apixaban 2.5 mg tablet (Eliquis) 2.5 mg PO BID #60 tabs 11/29/24 12/12/24 Rx peg 3350-electrolytes 236 240 ml PO Q10M #4,000 mL 12/11/24 12/17/24 Rx gram-22.74 gram-6.74 gram-5.86 gram solution (Golytely) ondansetron HCl 4 mg tablet 4 mg PO Q6H PRN nausea and 12/14/24 12/16/24 Rx vomiting #20 tabs pantoprazole 40 mg tablet,delayed 40 mg PO BID #60 tabs 12/14/24 12/17/24 Rx release Allergy/AdvReac Type Severity Reaction Status Date / Time cat dander Allergy Severe Swelling Verified 12/14/24 10:44 lisinopril AdvReac Intermediate edema and Verified 12/14/24 10:44 difficulty breathing Family History Sister TBI (traumatic brain injury) Colon cancer Brother Substance abuse Depression Seizures Father Hypertension Prostate cancer Heart disease Arthritis Myocardial infarction Kidney disease Mother Depression Heart disease Diabetes Asthma Osteoporosis Respiratory disease Surgical History H/O tooth extraction History of incisional hernia repair History of tonsillectomy and adenoidectomy History of endometrial ablation H/O colonoscopy History of cholecystectomy Status post carpal tunnel release H/O cardiac catheterization Social History household members: spouse Smoking Status: Former smoker alcohol intake: never substance use type: does not use ROS Constitutional Constitutional: Denies fatigue, fever(s), poor appetite, weight gain or weight loss Gastrointestinal Gastrointestinal: Denies belching, bloating, change in bowel habits, change in stool character, chewing difficulty, coffee ground emesis, constipation, cramping, diarrhea, dyspepsia, dysphagia, early satiety, excessive flatus, fecal incontinence, heartburn, hematemesis, hematochezia, hemorrhoids, loose stools, melena, nausea, odynophagia, rectal bleeding, tenesmus, vomiting or weight changes Vital Signs Vital Signs Vital Signs: 12/18/24 06:39 12/18/24 06:41 Temperature 97.4 F L Temperature Source Temporal Pulse Rate 74 Respiratory Rate 16 Respiratory Pattern Normal Blood Pressure 133/83 H Blood Pressure Mean 99 Blood Pressure Source Monitor Blood Pressure Position Semi-Fowlers Blood Pressure Location Right Arm Pulse Ox 99 Oxygen Delivery Method Room Air Weight Weight: 266 lb 1.567 oz Body Mass Index (BMI) 44.2 Physical Exam Const alert, oriented x3, no apparent distress and healthy appearing General Appearance: cooperative GI normal to inspection, nondistended, normoactive bowel sounds, soft to palpation, non-tender and non-distended Percussion: normal to percussion Rectal Exam: deferred Assessment & Plan Assessment/Plan (1) Crohn disease: QUALIFIERS: Gastrointestinal tract location: unspecified location Digestive disease complication type: unspecified complication Qualified Code(s): K50.919 - Crohn's disease, unspecified, with unspecified complications (2) Cirrhosis: QUALIFIERS: Hepatic cirrhosis type: unspecified hepatic cirrhosis Ascites presence: unspecified Qualified Code(s): K74.60 - Unspecified cirrhosis of liver (3) Abdominal pain: QUALIFIERS: Abdominal location: generalized Qualified Code(s): R10.84 - Generalized abdominal pain (4) Right sided abdominal pain: PLAN: Assessment and Plan Assessment and Plan (1) Abdominal pain: Status: Acute Qualifiers: Abdominal location: generalized Qualified Code(s): R10.84 - Generalized abdominal pain (2) Cirrhosis: Status: Acute Qualifiers: Ascites presence: unspecified Hepatic cirrhosis type: unspecified hepatic cirrhosis Qualified Code(s): K74.60 - Unspecified cirrhosis of liver (3) Pancytopenia: Status: Acute (4) Crohn disease: Status: Acute Qualifiers: Digestive disease complication type: unspecified complication Gastrointestinal tract location: unspecified location Qualified Code(s): K50.919 - Crohn's disease, unspecified, with unspecified complications Orders: Orders CBC W/Diff, Automated 10/31/24 D61.818 - Other pancytopenia, K74.60 - Unspecified cirrhosis of liver, R10.9 - Unspecified abdominal pain Basic Metabolic Profile (BMP) 10/31/24 D61.818 - Other pancytopenia, K74.60 - Unspecified cirrhosis of liver, R10.9 - Unspecified abdominal pain Liver Profile 10/31/24 D61.818 - Other pancytopenia, K74.60 - Unspecified cirrhosis of liver, R10.9 - Unspecified abdominal pain Prothrombin Time w/INR 10/31/24.818 - Other pancytopenia, K74.60 - Unspecified cirrhosis of liver, R10.9 - Unspecified abdominal pain Hepatitis A AB, Total 10/31/24.818 - Other pancytopenia, K74.60 - Unspecified cirrhosis of liver, R10.9 - Unspecified abdominal pain Hepatitis B Core Ab Total 10/31/24.818 - Other pancytopenia, K74.60 - Unspecified cirrhosis of liver, R10.9 - Unspecified abdominal pain Hepatitis B Surface Antibody 10/31/24.818 - Other pancytopenia, K74.60 - Unspecified cirrhosis of liver, R10.9 - Unspecified abdominal pain Hepatitis B Surface Antigen 10/31/24.818 - Other pancytopenia, K74.60 - Unspecified cirrhosis of liver, R10.9 - Unspecified abdominal pain Hepatitis C Antibody 10/31/24.818 - Other pancytopenia, K74.60 - Unspecified cirrhosis of liver, R10.9 - Unspecified abdominal pain AFP, Tumor Marker 10/31/24.818 - Other pancytopenia, K74.60 - Unspecified cirrhosis of liver, R10.9 - Unspecified abdominal pain [facility] Misc. 10/31/24.818 - Other pancytopenia, K74.60 - Unspecified cirrhosis of liver, R10.9 - Unspecified abdominal pain Abdomen Limited 10/31/24.818 - Other pancytopenia, K74.60 - Unspecified cirrhosis of liver, R10.9 - Unspecified abdominal pain RORY w/ Reflex Mult Confirm 10/31/24.818 - Other pancytopenia, K74.60 - Unspecified cirrhosis of liver, R10.9 - Unspecified abdominal pain Anti-Mitochondrial AB 10/31/24.818 - Other pancytopenia, K74.60 - Unspecified cirrhosis of liver, R10.9 - Unspecified abdominal pain Anti-Smooth Muscle ABS 04/22/25 D61.818 - Other pancytopenia, K74.60 - Unspecified cirrhosis of liver, R10.9 - Unspecified abdominal pain Ferritin 10/31/24 D61.818 - Other pancytopenia, K74.60 - Unspecified cirrhosis of liver, R10.9 - Unspecified abdominal pain Iron+Iron Binding Capacity 10/31/24 D61.818 - Other pancytopenia, K74.60 - Unspecified cirrhosis of liver, R10.9 - Unspecified abdominal pain Vitamin B12 10/31/24 D61.818 - Other pancytopenia, K74.60 - Unspecified cirrhosis of liver, R10.9 - Unspecified abdominal pain Abdomen Limited Today D61.818 - Other pancytopenia, K74.60 - Unspecified cirrhosis of liver, R10.9 - Unspecified abdominal pain Medications: New lactulose 10 grams (15 mL) PO QDAY 90 days 1,350 mL 1RF Plan 59y/o presents for initial consultation with concerns for cirrhosis. PMH significant for asthma, COPD, Crohn's disease, thrombocytopenia, obesity. She reports that she has been seeing hematology at [facility] for history of thrombocytopenia with unknown origin. CT scan performed April 2023 revealed cirrhosis, splenomegaly, moderate ascites, and paraesophageal varices. Abdominal ultrasound performed September 2023 revealed hepatomegaly with fatty infiltration of the liver, splenomegaly, large main portal vein, trace ascites and findings suggestive of portal hypertension. She reports she was previously told she may have cirrhosis of the liver, but was never referred for further evaluation and was unaware of seriousness of condition. She has been alternating Tylenol 975 mg daily with ibuprofen 1000 mg daily for management of joint pain. In addition she was recently prescribed meloxicam 7.5 mg twice daily. Labs completed 08/26/2024 reveal pancytopenia with WBC 3.1, Hgb 11.9, PLT 58. Renal function, sodium and potassium were normal April 2024. I am unable to calculate a MELD without appropriate labs and these will be ordered today. She is seen in the office today with her and I have reviewed with both of them the seriousness of these findings with profound thrombocytopenia and concerns for advanced stage liver disease (cirrhosis). Of note she also reports a history of ulcerative colitis initially treated with Asacol, this diagnosis was changed to Crohn's disease post her most recent colonoscopy with Dr. Nuno 4 to 5 years ago. I have ordered additional labs, ABD US, liver doppler and scheduled her for a colnosocpy and EGD. I recommend vaccination for HAV and HBV if Ab are nul. Patient Instructions: - Complete labs today - Recommend vaccination for HAV and HBV if Ab are nul - Schedule liver doppler - Colonoscopy and EGD - 1/2d Miralax and 1d GoLYTELY - Low Na diet, do not exceed 2g per day - Start Lactulose 10gm/15ml once daily - goal of 2-3 BM daily - Schedule consult with Dr. Beach ([place]) for ongoing management of cirrhosis - Continue Labetalol 100mg BID - possible change to Carvedilol in future - We have discussed the seriousness of her condition and need to abstain from all alcohol consumption. - We have discussed the data suggests repeating an ABD US every six months; however, this does not decrease the risk of secondary to liver cancer. Routine screening would assist in an earlier diagnosis and treatment, but not necessarily a better outcome. - Follow-up with me in the office post procedure to discuss findings and any needed treatment for Crohn's - Avoidance of Hepatotoxins NSAIDs (ibuprofen, naproxen, meloxicam, herbal supplements, benzodiazepines, nacotics)
[2024-12-18 06:56] LABS: Bedside Glucose 136 mg/dL (74-106)
--- NOTE | 2024-12-18 07:00 | COLBX_PTH ---
PATIENT: JESE CAREY LOC: [facility] U#:[id number] AGE/SX: 59/F ROOM: RE12/18/[address]: Dr. Hugo Pierre DO : 1965 BED: DIS: 12/18/2024 SPEC #: [id number] RECD: 12/18/24 11:22 STATUS: WANG HARRIS #: [id number] TEQUILA: 12/18/24 07:[address]: Hugo Pierre DEPT: SURGICAL PATHOLOGY RECD BY: Ce Ames ENTERED: 12/18/24 12:08 SP TYPE: COLON BX TRIXIE DR: Dr. See Reece MD Tissues: A - Gastric mucous membrane B - Duodenum, NOS C - COLON BIOPSY Procedures: Immunohistochemical Stains Surgery Specimen Level IV HEADER OPERATION: Colonoscopy with biopsy, EGD with biopsy PRE-OP DIAGNOSIS: Crohn's disease, cirrhosis, abdominal pain, right sided abdominal pain TISSUE SUBMITTED: A- Gastric body biopsy, B- Duodenum biopsy, C- Random colon biopsy MICROSCOPIC DIAGNOSIS A. Stomach, gastric body, biopsies: * Focal superficial erosion with slight chronic inflammation * An immunohistochemical stain for Helicobacter pylori is negative B. Small intestine, duodenum: * Benign without active inflammation or architectural distortion C. Large intestine, random: * Benign colonic mucosa without active inflammation MICROSCOPIC DESCRIPTION Slides are reviewed. All matched controls reacted appropriately. These tests were developed and their performance characteristics determined by [facility]. They may not have been cleared or approved by the U.S. Food and Drug Administration. The FDA has determined that such clearance or approval is not necessary. The above immunohistochemical/dualISH markers are reviewed by the Pathologist. GROSS DESCRIPTION A. Received in fixative is one container labeled with the patient's name and designated Gastric body biopsy. The specimen consists of two irregular fragments of light hernandez soft tissue that in aggregate measure 0.7 x 0.5 x 0.2 cm. The specimen is totally submitted in one cassette. B. Received in fixative is one container labeled with the patient's name and designated Duodenum biopsy. The specimen consists of multiple irregular fragments of light hernandez soft tissue that in aggregate measure 0.7 x 0.4 x 0.2 cm. The specimen is totally submitted in one cassette. C. Received in fixative is one container labeled with the patient's name and designated Random colon biopsy. The specimen consists of multiple irregular fragments of light hernandez soft tissue that in aggregate measure 1.5 x 0.7 x 0.2 cm. The specimen is totally submitted in one cassette. MS/mr 12/18/2024 CPT:[id number]
--- NOTE | 2024-12-18 07:49 | PCM.POST.ANE ---
Anesthesia: Postop Eval I Current Vital Signs Temperature: 99.3 F Pulse Rate: 75 Blood Pressure: 128/74 Respiratory Rate: 16 Pulse Ox: 97 Oxygen Delivery Method: Room Air Assessment Airway patent: Yes Spontaneous unlabored respirations: Yes Mental status: Awake nausea: No Vomiting: No Anesthesia Complication: No Fluid Hydration Crystalloid volume administer (ml): 500 Total IV fluid infused: 500 Progress Note Anesthesia document: Postop Eval 1 completed: Yes
--- NOTE | 2024-12-18 08:02 | PCM.POSTANE2 ---
Anesthesia Postop Eval I Sum Postop Eval Completion status Anesthesia document: Postop Eval 1 completed: Yes Anesthesia Postop Eval I Summary Anesthesia Postop Eval I Summary: Anesthesia Postop Eval I: Assessment Summary Airway patent Yes 12/18/24 07:50 [email or web address] Spontaneous unlabored Yes 12/18/24 07:50 [email or web address] respirations Mental status Awake 12/18/24 07:50 [email or web address] nausea No 12/18/24 07:50 [email or web address] Vomiting No 12/18/24 07:50 [email or web address] Anesthesia Postop Eval I: Fluid Summary Crystalloid volume administer 500 12/18/24 07:50 [email or web address] (ml) Colloids volume administered ( ml) Blood Product volume administered (ml) Total IV fluid infused 500 12/18/24 07:50 [email or web address] Anesthesia Postop Eval I: Summary Notes Anesthesia Complication No 12/18/24 07:50 [email or web address] Anesthesia Complication Comment: Post-operative progress note Anesthesia: Postop Eval II Evaluation Mental status: Awake Pain Level: 0 nausea: No Vomiting: No
--- NOTE | 2024-12-18 08:30 | OP.EGD_ITS ---
Patient Name: Melanie Howard Procedure Date: 12/18/2024 7:14 AM Date of : 1965 Age: 59 Procedure: Upper GI endoscopy Indications: Epigastric abdominal pain, Iron deficiency anemia, Cirrhosis with suspected esophageal varices Providers: Hugo Pierre DO Referring MD: See Reece Medicines: Monitored Anesthesia Care Patient Profile: This is a 59 year old female. Refer to note in patient chart for documentation of history and physical. Patient has symptoms of chronic epigastric abdominal pain, chronic dysphagia and chronic dyspepsia. Complications: No immediate complications. Procedure: Pre-Anesthesia Assessment: - Prior to the procedure, a History and Physical was performed, and patient medications and allergies were reviewed. The patient is competent. The risks and benefits of the procedure and the sedation options and risks were discussed with the patient. All questions were answered and informed consent was obtained. Patient identification and proposed procedure were verified by the physician in the pre-procedure area. Mental Status Examination: alert and oriented. Airway Examination: normal oropharyngeal airway and neck mobility. Respiratory Examination: clear to auscultation. CV Examination: normal. Prophylactic Antibiotics: The patient does not require prophylactic antibiotics. Prior Anticoagulants: The patient has taken no anticoagulant or antiplatelet agents except for NSAID medication. ASA Grade Assessment: II - A patient with mild systemic disease. After reviewing the risks and benefits, the patient was deemed in satisfactory condition to undergo the procedure. The anesthesia plan was to use monitored anesthesia care (MAC). Immediately prior to administration of medications, the patient was re-assessed for adequacy to receive sedatives. The heart rate, respiratory rate, oxygen saturations, blood pressure, adequacy of pulmonary ventilation, and response to care were monitored throughout the procedure. The physical status of the patient was re-assessed after the procedure. After obtaining informed consent, the endoscope was passed under direct vision. Throughout the procedure, the patient's blood pressure, pulse, and oxygen saturations were monitored continuously. The colonoscope was introduced through the mouth, and advanced to the fourth part of the duodenum. Small bowel enteroscopy was deemed necessary. The upper GI endoscopy was accomplished without difficulty. The patient tolerated the procedure well. Scope In: 7:23:18 AM Scope Out: 7:25:55 AM Total Procedure Duration Time 0 hours 2 minutes 37 seconds Findings: Grade II varices were found in the middle third of the esophagus and in the lower third of the esophagus. Suspect gastroparesis due to patient symptoms and retained gastric contents. Moderate portal hypertensive gastropathy was found in the entire examined stomach. Biopsies were taken with a cold forceps for histology. Verification of patient identification for the specimen was done. Estimated blood loss was minimal. No gross lesions were noted in the third portion of the duodenum. Impression: - Grade II esophageal varices. - Gastroparesis, secondary to diabetes mellitus type II. - Portal hypertensive gastropathy. Biopsied. - No gross lesions in the third portion of the duodenum. Recommendation: - Discharge patient to home. - Resume previous diet. - Continue present medications. - Await pathology results. - Repeat upper endoscopy in 3 months for endoscopic band ligation. Procedure Code(s): --- Professional --- 07074, Small intestinal endoscopy, enteroscopy beyond second portion of duodenum, not including ileum; with biopsy, single or multiple CPT copyright 2021 [employer]. All rights reserved. The codes documented in this report are preliminary and upon wire bound box machine helper review may be revised to meet current compliance requirements. Hugo Pierre DO 12/18/2024 8:30:24 AM This report has been signed electronically. Number of Addenda: 0 Note Initiated On: 12/18/2024 7:14 AM
--- NOTE | 2024-12-18 08:31 | OP.CCLET_ITS ---
12/18/2024 See Reece Re : Upper GI endoscopy procedure for Melanie Howard Dear Chevy This procedure was performed on Wednesday, December 18, 2024. My impressions and recommendations are as follows: Impressions : - Grade II esophageal varices. - Gastroparesis, secondary to diabetes mellitus type II. - Portal hypertensive gastropathy. Biopsied. - No gross lesions in the third portion of the duodenum. Recommendations : - Discharge patient to home. - Resume previous diet. - Continue present medications. - Await pathology results. - Repeat upper endoscopy in 3 months for endoscopic band ligation. My findings are described in the full procedure note, which is enclosed. If I can be of further assistance, please feel free to contact me at . Sincerely, Hugo Pierre, 12/18/2024 8:30:24 AM This report has been signed electronically.
--- NOTE | 2024-12-18 08:34 | OP.CCLET_ITS ---
12/18/2024 See Reece Re : Colonoscopy procedure for Melanie Howard Dear [place]vy This procedure was performed on Wednesday, December 18, 2024. My impressions and recommendations are as follows: Impressions : - Preparation of the colon was fair. - Congested mucosa in the entire examined colon. Biopsied. - Diverticulosis in the recto-sigmoid colon, in the sigmoid colon and in the descending colon. - Stool in the cecum and at the appendiceal orifice. Recommendations : - Discharge patient to home. - Resume previous diet. - Continue present medications. - Await pathology results. - Repeat colonoscopy in 5 years for surveillance. My findings are described in the full procedure note, which is enclosed. If I can be of further assistance, please feel free to contact me at . Sincerely, Hugo Pierre, 12/18/2024 8:33:46 AM This report has been signed electronically.
--- NOTE | 2024-12-18 08:34 | OP.COLON_ITS ---
Patient Name: Melanie Howard Procedure Date: 12/18/2024 7:26 AM Date of : 1965 Age: 59 Procedure: Colonoscopy Indications: Chronic diarrhea, Iron deficiency anemia, Crohn's disease Providers: Hugo Pierre DO Referring MD: See Reece Medicines: Monitored Anesthesia Care Patient Profile: This is a 59 year old female. Refer to note in patient chart for documentation of history and physical. Patient has symptoms of chronic epigastric abdominal pain, chronic dysphagia and chronic dyspepsia. Last Colonoscopy: more than 3 years ago. Complications: No immediate complications. Procedure: Pre-Anesthesia Assessment: - Prior to the procedure, a History and Physical was performed, and patient medications and allergies were reviewed. The patient is competent. The risks and benefits of the procedure and the sedation options and risks were discussed with the patient. All questions were answered and informed consent was obtained. Patient identification and proposed procedure were verified by the physician in the pre-procedure area. Mental Status Examination: alert and oriented. Airway Examination: normal oropharyngeal airway and neck mobility. Respiratory Examination: clear to auscultation. CV Examination: normal. Prophylactic Antibiotics: The patient does not require prophylactic antibiotics. Prior Anticoagulants: The patient has taken no anticoagulant or antiplatelet agents except for NSAID medication. ASA Grade Assessment: II - A patient with mild systemic disease. After reviewing the risks and benefits, the patient was deemed in satisfactory condition to undergo the procedure. The anesthesia plan was to use monitored anesthesia care (MAC). Immediately prior to administration of medications, the patient was re-assessed for adequacy to receive sedatives. The heart rate, respiratory rate, oxygen saturations, blood pressure, adequacy of pulmonary ventilation, and response to care were monitored throughout the procedure. The physical status of the patient was re-assessed after the procedure. After I obtained informed consent, the scope was passed under direct vision. Throughout the procedure, the patient's blood pressure, pulse, and oxygen saturations were monitored continuously. The colonoscope was introduced through the anus and advanced to the cecum, identified by appendiceal orifice and ileocecal valve. The colonoscopy was performed without difficulty. The patient tolerated the procedure well. The quality of the bowel preparation was fair. Scope In: 7:27:50 AM Scope Withdrawal Time 0 hours 9 minutes 10 seconds Scope Out: 7:40:40 AM Total Procedure Duration Time 0 hours 12 minutes 50 seconds Findings: An area of mildly congested mucosa was found in the entire colon. Biopsies were taken with a cold forceps for histology. Verification of patient identification for the specimen was done. Estimated blood loss was minimal. Multiple small and large-mouthed diverticula were found in the recto-sigmoid colon, sigmoid colon and descending colon. Stool was found in the cecum and at the appendiceal orifice. Hemorrhoids were found on perianal exam. Impression: - Preparation of the colon was fair. - Congested mucosa in the entire examined colon. Biopsied. - Diverticulosis in the recto-sigmoid colon, in the sigmoid colon and in the descending colon. - Stool in the cecum and at the appendiceal orifice. Recommendation: - Discharge patient to home. - Resume previous diet. - Continue present medications. - Await pathology results. - Repeat colonoscopy in 5 years for surveillance. Procedure Code(s): --- Professional --- 98096, Colonoscopy, flexible; with biopsy, single or multiple CPT copyright 2021 [employer]. All rights reserved. The codes documented in this report are preliminary and upon limo driver review may be revised to meet current compliance requirements. Hugo Pierre DO 12/18/2024 8:33:46 AM This report has been signed electronically. Number of Addenda: 0 Note Initiated On: 12/18/2024 7:26 AM
== END 2024-12-18 08:50 | disposition home or self-care (01) ==
LOC: EN 05:58 → AC 05:59
PROVIDERS: PCP Family Medicine; Referring Provider Family Medicine; Visit Provider Internal Medicine Gastroenterology
PROC: 0DJD8ZZ Inspection of Lower Intestinal Tract, Via Natural or Artificial Opening Endoscopic (ICD-10-PCS; CPT 45378; principal; 2024-12-18 06:55)
DX: K25.9 Gastric ulcer, unspecified as acute or chronic, without hemorrhage or perforation (principal); D61.818 Other pancytopenia; I85.00 Esophageal varices without bleeding; K76.6 Portal hypertension; K50.90 Crohn's disease, unspecified, without complications; K74.60 Unspecified cirrhosis of liver; J44.9 Chronic obstructive pulmonary disease, unspecified; E11.43 Type 2 diabetes mellitus with diabetic autonomic (poly)neuropathy; Z79.4 Long term (current) use of insulin; E78.00 Pure hypercholesterolemia, unspecified; Z79.84 Long term (current) use of oral hypoglycemic drugs; Z79.85 Long-term (current) use of injectable non-insulin antidiabetic drugs; Z79.01 Long term (current) use of anticoagulants; K31.84 Gastroparesis; K57.30 Diverticulosis of large intestine without perforation or abscess without bleeding; R10.84 Generalized abdominal pain; Z87.891 Personal history of nicotine dependence; K21.9 Gastro-esophageal reflux disease without esophagitis; D50.9 Iron deficiency anemia, unspecified; K64.9 Unspecified hemorrhoids; Z79.899 Other long term (current) drug therapy; E66.9 Obesity, unspecified; K31.89 Other diseases of stomach and duodenum; K29.50 Unspecified chronic gastritis without bleeding
CPT/HCPCS: 45380; 43239; 82962; 88305; 88342; J2405

== ENCOUNTER 2025-01-12 08:47 | Emergency (ER) | payer BC, SELFPAY ==
[2025-01-12 08:49] VITALS: BP 148/78; PULSE 82; RESP 18; TEMP 36.6; O2SAT 97; BMI 43.9
--- NOTE | 2025-01-12 08:55 | ED.VIS.GI ---
HPI HPI - GI History of Present Illness Chief Complaint: Abd Pain Informant: patient Abdominal Pain/Flank Pain Onset: Weeks Context: Gradual Onset Timing: Intermittent (But more frequent) Quality: - (Pulling) Location: RUQ and RLQ Worsened by: - (Palpation) Relieved by: Nothing Nausea/Vomiting/Emesis GI Symptom: Positive for Nausea; Negative for Vomiting Diarrhea/Melena/Hematochezia GI Symptom: Positive for Diarrhea; Negative for Melena or Hematochezia Associated Symptoms Associated Symptoms: Negative for Dysuria, Frequency or Hematuria Narrative Narrative: Patient presents with abdominal pain that has been getting worse over the past week. Patient states it is gradually getting worse. Patient states is not intermittent but her pain is getting more frequent. Patient describes it as a pulling sensation. Patient states it is mainly over the right side of her abdomen. Patient states it is worse with palpation. Patient states nothing makes it better. Patient admits to some nausea but denies any vomiting. Patient admits to some diarrhea but denies any melena or hematochezia. Patient denies any dysuria, frequency, or hematuria. PFSH PFS Medical History Arthritis Anemia High cholesterol History of Crohn's disease History of IBS GERD (gastroesophageal reflux disease) Sleep apnea PVT (portal vein thrombosis) Pancytopenia Liver disease Loss of hearing Wears glasses Wears dentures Post-menopausal History of steroid therapy Insulin dependent diabetes mellitus Restless legs Back pain Dietary restriction Heartburn History of ulceration Colitis Former smoker CPAP (continuous positive airway pressure) dependence Shortness of breath on exertion Asthma Chronic cough Leg cramps History of edema History of echocardiogram History of stress test Cardiology follow-up encounter Disease of gingiva due to infection Incisional hernia Lung infection MDD (major depressive disorder) Allergies Contact with and (suspected) exposure to other viral communicable diseases URI (upper respiratory infection) Concussion History of tobacco use Encounter for screening for malignant neoplasm of lung in former smoker who quit in past 15 years with 30 pack year history or greater Trochanteric bursitis of left hip Right leg weakness Rectal bleed Hemorrhoids Fatigue Elevated transaminase level COPD (chronic obstructive pulmonary disease) Proteinuria Osteoarthritis Obesity Anxiety Hyperglycemia Hyponatremia Essential hypertension Migraines Depression Thrombocytopenia Home Medications ?Medication ?Instructions ?Recorded ?Last Taken ?Type albuterol sulfate 90 mcg/actuation 2 puff inhalation Q6H PRN PRN 07/29/20 10/01/23 History aerosol inhaler Shortness Of Breath labetalol 100 mg tablet 100 mg PO BID 07/29/20 12/17/24 History metformin 1,000 mg tablet 1,000 mg PO BIDCM 07/29/20 12/17/24 History bupropion HCl 300 mg 24 hr tablet, 300 mg PO QAM 30 days #30 tabs 02/01/23 12/17/24 Rx extended release buspirone 10 mg tablet 10 mg PO BID 10/31/24 12/17/24 History glimepiride 4 mg tablet 4 mg PO QAM 10/31/24 12/17/24 History insulin glargine 100 unit/mL 16 unit subcut QHS 10/31/24 12/16/24 History subcutaneous solution (Lantus U-100 Insulin) lactulose 10 gram/15 mL oral 10 g (15 mL) PO QDAY 90 days 10/31/24 12/15/24 Rx solution #1,350 mL mecobalamin (vitamin B12) 10,000 10,000 mcg IM QMONTH 10/31/24 12/11/24 History mcg solution for injection rosuvastatin 5 mg tablet 5 mg PO QDAY 10/31/24 12/17/24 History tirzepatide 5 mg/0.5 mL 5 mg subcut QWEEK 10/31/24 12/10/24 History subcutaneous pen injector (Ibrahima) apixaban 2.5 mg tablet (Eliquis) 2.5 mg PO BID #60 tabs 11/29/24 12/12/24 Rx ondansetron HCl 4 mg tablet 4 mg PO Q6H PRN nausea and 12/14/24 12/16/24 Rx vomiting #20 tabs pantoprazole 40 mg tablet,delayed 40 mg PO BID #60 tabs 12/14/24 12/17/24 Rx release rifaximin 550 mg tablet (Xifaxan) 550 mg PO BID 30 days #60 tabs 12/19/24 Unknown Rx spironolactone 25 mg tablet 12.5 mg (1/2 x 25 mg) PO DAILY 1 12/19/24 Unknown Rx month #30 tabs Allergy/AdvReac Type Severity Reaction Status Date / Time cat dander Allergy Severe Swelling Verified 01/12/25 08:49 lisinopril AdvReac Intermediate edema and Verified 01/12/25 08:49 difficulty breathing Family History Sister TBI (traumatic brain injury) Colon cancer Brother Substance abuse Depression Seizures Father Hypertension Prostate cancer Heart disease Arthritis Myocardial infarction Kidney disease Mother Depression Heart disease Diabetes Asthma Osteoporosis Respiratory disease Surgical History H/O tooth extraction History of incisional hernia repair History of tonsillectomy and adenoidectomy History of endometrial ablation H/O colonoscopy History of cholecystectomy Status post carpal tunnel release H/O cardiac catheterization Social History household members: spouse Smoking Status: Former smoker alcohol intake: never substance use type: does not use ROS ROS ED Constitutional Constitutional ED: Denies chills or fever(s) Eyes Eyes: Denies blurry vision or change in vision ENT ENT ED: Reports rhinorrhea; Denies sore throat Cardiovascular Cardiovascular: Denies chest pain or palpitations Respiratory/Chest Respiratory/Chest: Reports dyspnea; Denies cough Gastrointestinal Gastrointestinal: Reports abdominal pain, diarrhea and nausea; Denies melena or vomiting Genitourinary Genitourinary ED: Denies dysuria or hematuria Musculoskeletal Musculoskeletal: Reports back pain; Denies neck pain Integumentary Denies abscess or rash Neurologic Neurologic: Reports headache(s); Denies weakness Allergic/Immunologic Allergic/Immunologic ED: Denies mouth swelling or urticaria EXAM Physical Exam Const Vital Signs: 01/12/25 08:49 01/12/25 11:09 Temperature 97.8 F Temperature Source Oral Pulse Rate 82 71 Respiratory Rate 18 16 Blood Pressure 148/78 H 114/77 Blood Pressure Mean 101 89 Pulse Ox 97 97 Oxygen Delivery Method Room Air Room Air Positive well nourished and well developed General Appearance ED: well developed and NAD HEENT Reports moist mucous membranes normocephalic and atraumatic Neck supple and no JVD Resp normal respiratory effort and clear to auscultation bilaterally Cardio regular rate and regular rhythm GI non-distended Palpation: soft and tender RLQ and RUQ; Negative for guarding or rebound tenderness present Neuro CN's II-XII intact bilaterally, moves all extremities and no sensory deficits noted Sensorium / Orientation: alert Motor Exam: strength 5/5 throughout Psych mental status grossly normal MDM MDM MDM Narrative Medical decision making narrative: Differential diagnosis includes ascites, cirrhosis, pancreatitis, electrolyte abnormality, bowel obstruction, perforation, dehydration, urinary tract infection, and pyelonephritis. CBC will be obtained to assess for leukocytosis and anemia. Comprehensive metabolic profile will be obtained to assess for hepatic function, renal function, and electrolyte abnormality. Lipase will be obtained to assess for pancreatitis. Urinalysis will be obtained to assess for urinary tract infection and hematuria. CT scan of the abdomen and pelvis will be obtained to assess for bowel obstruction, perforation, ascites, and pancreatitis. History & Record Review Additional record(s) reviewed:: Prior outpatient record, Prior ED visit and Prior labs Lab Data Attestation: I reviewed the patient's lab results. Lab results narrative: CBC was reviewed. White blood cell count was slightly low at 2.1. Hemoglobin was 10.8 and hematocrit was 33.6. Platelets were low at 46. These are consistent with previous results. Comprehensive metabolic profile was reviewed. Glucose was elevated at 321. Anion gap was normal. Creatinine was 1.28. The remainder is within normal limits. Lipase was reviewed and was normal at 52. Labs: Laboratory Results - last 24 hr 01/12/25 01/12/25 09:33 11:19 WBC 2.1 L RBC 3.93 L Hgb 10.8 L Hct 33.6 L MCV 85.5 MCH 27.5 MCHC 32.1 RDW Std Deviation 48.1 H RDW Coeff of Stu 15.5 H Plt Count 46 L* MPV 11.7 Immature Gran % (Auto) 0.000 Neut % (Auto) 71.1 H Lymph % (Auto) 18.8 L [place] % (Auto) 10.1 H Eos % (Auto) 0.0 Baso % (Auto) 0.0 Absolute Neuts (auto) 1.5 L Absolute Lymphs (auto) 0.39 L Nucleated RBC % 0 Platelet Estimate MKD DEC Sodium 138 Potassium 4.2 Chloride 105 Carbon Dioxide 21.1 Anion Gap 12 BUN 15 Creatinine 1.28 H Estim Creat Clear Calc 62.85 Est GFR (MDRD) Non-Af 49 L BUN/Creatinine Ratio 11.6 Glucose 321 H Calcium 8.7 Total Bilirubin 1.29 AST 107 H ALT 42 H Alkaline Phosphatase 90 Total Protein 7.2 Albumin 3.9 Globulin 3.4 Albumin/Globulin Ratio 1.1 Lipase 52 Urine Color Yellow Urine Clarity Clear Urine pH 6.0 Ur Specific [place] 1.010 Urine Protein 100 H Urine Glucose (UA) 1000 H Urine Ketones Negative Urine Occult Blood 25 H Urine Nitrite Negative Urine Bilirubin Negative Urine Urobilinogen 1 H Ur Leukocyte Esterase Negative Urine RBC 0 SEEN Urine WBC 0 SEEN Ur Squamous Epith Cells 0-5 SEEN Urine Bacteria 0 SEEN Urine Mucus 0 SEEN Radiography Diagnostic Testing: Clinical Impression(s) from Imaging Studies Abdomen/Pelvis CT 01/12/25 10:09 IMPRESSION: Cirrhotic liver with constellation of findings suggestive of portal hypertension. Previously seen portal vein thrombosis is less conspicuous on current exam which may be due to technique or interval resolution/near resolution. Again seen is prominent retroperitoneal lymph nodes. Scattered mild thickening of small-bowel loops may reflect enteritis. No bowel obstruction. Reading Location: [facility] CT scan of the abdomen pelvis was obtained. There is cirrhosis with finding suggestive of portal hypertension. There is no evidence of bowel obstruction or perforation. There is no free air. There are retroperitoneal lymph nodes. There is mild thickening of some small bowel loops. This was interpreted by the radiologist was also independently reviewed by myself. Treatment and Re-Evaluation :: Patient was given morphine and Zofran here. Patient was advised of her findings. Patient is feeling better on reevaluation. Patient was instructed to follow-up with her primary care physician in 5 to 7 days. Patient was also instructed to follow-up with her mcat tutor in 5 to 7 days. Patient was instructed to return if worse in any way. Patient understood and was agreeable with the plan. All questions were answered. 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, Pancytopenia Instructions: ED Cirrhosis Prescriptions: No Action buspirone 10 mg tablet 10 mg PO BID insulin glargine [Lantus U-100 Insulin] 100 unit/mL solution 16 unit subcut QHS Mounjaro 5 mg/0.5 mL pen injector 5 mg subcut QWEEK glimepiride 4 mg tablet 4 mg PO QAM Rx Instructions: administer with breakfast rosuvastatin 5 mg tablet 5 mg PO QDAY mecobalamin (vitamin B12) 10,000 mcg recon soln 10,000 mcg IM QMONTH lactulose 10 gram/15 mL solution 10 g PO QDAY 90 Days Qty: 1350 1RF spironolactone 25 mg tablet 12.5 mg PO DAILY 30 Days Qty: 30 3RF Xifaxan 550 mg tablet 550 mg PO BID 30 Days Qty: 60 5RF metformin 1,000 MG tablet 1,000 mg PO BIDCM labetalol 100 MG tablet 100 mg PO BID albuterol sulfate 1 PUFF inhaler 2 puff INHALATION Q6H PRN PRN (Reason: Shortness Of Breath) bupropion HCl 300 mg tablet extended release 24 hr 300 mg PO QAM 30 Days Qty: 30 2RF Eliquis 2.5 mg tablet 2.5 mg PO BID Qty: 60 2RF ondansetron HCl 4 mg tablet 4 mg PO Q6H PRN (Reason: nausea and vomiting) Qty: 20 1RF pantoprazole 40 mg tablet,delayed release (DR/EC) 40 mg PO BID Qty: 60 1RF Rx Instructions: take 30 minutes before breakfast and dinner Primary Care Provider: See Reece Referrals: See Reece MD [Primary Care Provider] - 3-5 Days Hugo Pierre DO [Med Staff - Active Staff] - 3-5 Days Print Language: Bolivian Disposition Disposition: Home, Self Care
[2025-01-12 09:55] LABS: Hematocrit 33.6 % (37-47); Hemoglobin 10.8 g/dL (12.0-15.0); Immature Granulocytes Count 0.000 X10^3/uL (0.0-0.0); Mean Corp Hgb Conc 32.1 g/dL (32-36); Mean Corpuscular Volume 85.5 fL (81-99); Mean Platelet Vol. 11.7 fl (6.2-12.0); NRBC Flagged by Analyzer 0 % (0-5); POSITIVE COUNT YES; POSITIVE DIFFERENTIAL YES; Platelet Count 46 K/mm3 (150-450); RBC Distribution Width CV 15.5 % (11.6-14.6); RBC Distribution Width SD 48.1 fl (35.1-43.9); Red Blood Count 3.93 M/mm3 (4.2-5.4); White Blood Count 2.1 K/mm3 (4.4-11.0)
[2025-01-12 09:56] LABS: Differential Indicated SCAN CRITERIA MET
--- NOTE | 2025-01-12 10:09 | CT_ITS ---
PROCEDURE: ABDOMEN/PELVIS W IV CONT ONLY 01/12/2025 REASON FOR EXAM: ABDOMINAL PAIN TECHNIQUE: ABDOMEN/PELVIS W IV CONT ONLY Coronal and Sagittal reconstruction series were provided. CONTRAST: 100 mL of Isovue 370 One or more dose reduction techniques were used (e.g., Automated exposure control, adjustment of the mA and/or kV according to patient size, use of iterative reconstruction technique. RADIATION DOSE SUMMARY: DLP: 1394 mGycm COMPARISON: 11/27/2024 FINDINGS: Limited sections of the lung bases demonstrate no focal pulmonary mass or consolidations. Left lower lobe subsegmental atelectasis Cirrhotic liver. Mild hepatic steatosis. Gallbladder is surgically removed. Extensive splenomegaly to 23.1 cm. Extensive paraesophageal and perigastric varices. Recanalized umbilical vein. Previously seen portal vein thrombosis is less conspicuous on current exam which may be due to technique or resolution. The pancreas and both adrenal glands demonstrate no acute findings The stomach is distended with residue. Scattered mild thickening of small-bowel loops may reflect enteritis. No bowel obstruction. The appendix is not clearly identified, although there are no secondary signs of appendicitis. No colonic obstruction. No free air. The kidneys are unremarkable. The urinary bladder is partially distended. The pelvic structures are intact. There is no solid pelvic mass. Prominent para-aortic lymph nodes measuring up to 1.3 x 1.0 cm best seen on series 2, image 53. The aorta and IVC demonstrate no acute findings. Mild atherosclerosis of the abdominal vasculature. Visualized osseous structures demonstrate no acute abnormality. Small umbilical hernia containing fluid. CT/Abdomen/Pelvis W IV Cont ONLY IMPRESSION: Cirrhotic liver with constellation of findings suggestive of portal hypertensio n. Previously seen portal vein thrombosis is less conspicuous on current exam which may be due to technique or interval resolutio n/near resolution. Again seen is prominent retroperitoneal lymph nodes. Scattered mild thickening of small-bowel loops may reflect enteritis. No bowel obstruction. Reading Location: [id number]
--- OUTSIDE RECORDS SUMMARY | 2025-01-12 10:09 | XMS RPT_ITS | CCD ---
Author Organization [facility] Care Team Providers Care Silk Snapper Name Role Phone PROVIDER, UNKNOWN Unavailable Unavailable Gio Ricketts Unavailable Unavailable Sang Preston Unavailable Unavailab Gio Maldonado Primary Care Provider Gio Ricketts Primary Care Provider Dr. Rik Peña Primary Care Provider Dr. Rik Peña Referring Provider Dr. Rosales [place] Attending Provider [phone] Rik Peña Other Provider Dr. Rik Gloria Attending Provider [phone] Juan C SALDIVAR, JANNA-C Dee Attending Provider Dr. Rik Peña Primary Care Provider Dr. Rik Peña Referring Provider Dr. Rosales [place] Attending Provider Dr. Rik Peña Other Provider Dr. Rik Gloria Attending Provider Juan C TRUCK TRAILER MECHANIC, TRUCK TRAILER MECHANIC-C Dee Attending Provider Juan C TRUCK TRAILER MECHANIC, TRUCK TRAILER MECHANIC-C Dee Referring Provider Al Ricketts Primary Care Provider Gio Ricketts MD Primary Care Provider Gio Ricketts MD Primary Care Provider Argenis Blackwell Unavailable Unavailab caleb Juan MD, Angel Unavailable Angel Juan MD Unavailable Chevy, Gio Primary Care Unavailable Chevy, Gio Referring Unavailable Rosales [place] Attending Unavailable Chevy, Gio Primary Care Unavailable Chevy, Gio Referring Unavailable Juan Francisco Evans Attending Unavailable Portillo, Deisi Referring Unavailable Chevy, Gio Primary Care Unavailable Portillo, Deisi Attending Unavailable Chevy, Gio Primary Care Unavailable Chevy, Gio Referring Unavailable Yong, Stanley Attending Unavailable Chevy, Gio Primary Care Unavailable Chevy, Gio Referring Unavailable Yong, Stanley Attending Unavailable Chevy, Gio Primary Care Unavailable Reodica, Lino Referring Unavailable Reodica, Lino Attending Unavailable Chevy, Gio Primary Care Unavailable Chevy, Gio Referring Unavailable Friend, Hugo Attending Unavailable Chevy, Gio Primary Care Unavailable Portillo, Deisi Attending Unavailable Portillo, Deisi Referring Unavailable Chevy, Gio Primary Care Unavailable Hcevy, Robles Referring Unavailable Chevy, Robles Attending Unavailable Portillo, Deisi Attending Unavailable Chevy, Gio Primary Care Unavailable Chevy, Gio Referring Unavailable Chevy, Gio Primary Care Unavailable Covarrubias Alfonso Attending Unavailable Chevy, Gio Primary Care Unavailable Rc Freeman Attending Unavailabl e Portillo, Deisi Referring Unavailable Chevy, Gio Primary Care Unavailable Portillo, Deisi Attending Unavailable Portillo, Deisi Referring Unavailable Chevy, Gio Primary Care Unavailable Portillo, Deisi Attending Unavailable Portillo, Deisi Referring Unavailable Chevy, Gio Primary Care Unavailable Portillo, Deisi Attending Unavailable Chevy, Gio Primary Care Unavailable Juan C, Dee Referring Unavailable Juan C, Dee Attending Unavailable Portillo, Deisi Referring Unavailable Chevy, Gio Primary Care Unavailable Portillo, Deisi Attending Unavailable Chevy, Gio Primary Care Unavailable Chevy, Gio Referring Unavailable Friend, Hugo Attending Unavailable Friend, Hugo Consulting Unavailable CHEVY, GIO Primary Care Unavailable CHEVY, GIO Primary Care Unavailable RAY ESPITIA Attending Unavailable CHEVY, GIO Primary Care Unavailable KASSI SEYMOUR Attending Unavailable CHEVY, GIO Primary Care Unavailable CHEVY, GIO Primary Care Unavailable KISHAN, AMBER Attending Unavailable Allergies Allergy Classification Reported Allergen(s) Allergy Type Date of Onset Reaction(s) Facility Cat Hair Extract (2 sources) Cat Hair Extract Drug Allergy 5 Anaphylaxis, Swelling [facility] Pollen (2 sources) Pollen Substance Allergy 3 Unknown [facility] (20 sources) Cat Hair Extract Drug Allergy 5 Swelling, Anaphylaxis [facility] [place] (20 sources) cat dander; Translations: [cat dander] Allergy to substance 5 Anaphylaxis, Swelling [facility] (20 sources) Pollen Propensity to adverse reactions 3 Unknown [facility] (1 source) Cat Hair Extract Allergy to substance 5 Anaphylaxis, Swelling [facility] (20 sources) Lisinopril Propensity to adverse reactions 3 Angioedema [facility] (5 sources) rifAXIMin Drug Allergy 5 Rash [facility] (1 source) Lisinopril Drug Allergy 5 [facility] Repository Medications Current Medications Medication Drug Class(es) Dates Sig (Normalized) Sig (Original) acetaminophen 650 mg / dextromethorphan hydrobromide 20 mg / guaiFENesin 400 mg / phenylephrine hydrochloride 10 mg powder for oral solution (1 source) Uncompetitive G-foptau-V-aspartat e Receptor Antagonist, Sigma-1 Agonist, alpha-1 Adrenergic Agonist Phenylephrine-D M-GG-APAP (MUCINEX FAST-MAX) [id number] MG PACK Take by mouth 0 Active acetaminophen 325 mg / HYDROcodone bitartrate 5 mg oral tablet (7 sources) Opioid Agonist Start: 09-02-2024 take 1 tablet by mouth every six hours as needed for pain HYDROcodone-claudy taminophen ([place]) 5-325 MG tablet TAKE 1 TABLET BY MOUTH EVERY 6 HOURS NEEDED FOR PAIN FOR 3 DAYS 09/02/2024 Active acetaminophen 325 mg / oxyCODONE hydrochloride 5 mg oral tablet (5 sources) Opioid Agonist Start: 12-23-2024 End: 12-26-2024 take 1 tablet by mouth every eight hours as needed for pain oxyCODONE-aceta minophen (Percocet) 5-325 MG tablet Indications: Fall, initial encounter , Contusion of lower back, initial encounter Take 1 tablet by mouth every 8 hours as needed for severe pain (7-10) for up to 3 days. 9 tablet 12/23/2024 12/26/2024 Active Start: 12-23-2024 End: 12-23-2024 1 tablet, Oral, Once, On 12/23/24 at 1220, For 1 dose, Maximum dose of acetaminophen is 4000 mg from all sources in 24 hours. acyclovir 400 mg oral tablet (3 sources) [...] of Breath 1 Inhaler 0 06/14/2020 Active apixaban 2.5 mg oral tablet (4 sources) Factor Xa Inhibitor Start: 12-10-2024 take 1 tablet by mouth twice daily Eliquis 2.5 MG tablet Take 2.5 mg by mouth 2 times daily. 12/10/2024 Active atorvastatin 20 mg oral tablet (12 [...] release oral tablet (20 sources) Aminoketone Start: 10-31-2024 take 1 tablet by mouth once daily in the morning buPROPion XL (Wellbutrin XL) 300 MG 24 hr tablet Indications: Anxiety Take 1 tablet (300 mg) by mouth every morning. Do not crush, chew, or split. 90 tablet 1 10/31/2024 Active Start: 02-19-2023 End: 10-03-2024 take 1 tablet by mouth once daily buPROPion XL (Wellbutrin XL) 300 MG 24 hr tablet Indications: Anxiety Take 1 tablet (300 mg) by mouth daily. Do not crush, chew, or split. 90 tablet 1 03/02/2024 Active busPIRone hydrochloride 10 mg oral tablet (20 sources) Start: 10-31-2024 take 1 tablet by mouth twice daily busPIRone (Buspar) 10 MG tablet Indications: Anxiety Take 1 tablet (10 mg) by mouth 2 times daily. 180 tablet 1 10/31/2024 Active Start: 10-12-2023 End: 10-12-2023 take 10 mg by mouth twice daily 10 mg, Oral, 2 times d aily, First dose on Wed10/12/23 at 1125 Start: 02-18-2023 End: 10-03-2024 take 1 tablet by mouth twice daily busPIRone (Buspar) 10 MG tablet Indications: Anxiety Take 1 tablet by mouth twice daily 60 tablet 3 05/29/2024 Active cephalexin 500 mg oral capsule (1 source) Cephalosporin Antibacterial Start: 08-08-2019 take 1 capsule by mouth three times daily cephALEXin (KEFLEX) 500 MG capsule Take 1 capsule by mouth 3 times daily 30 capsule 0 08/08/2019 Active Continuous Glucose Furnace Door Tender (FreeStyle Adiel 3 [place]) device (20 sources) Start: 12-12-2024 End: 12-12-2025 Continuous Glucose Furnace Door Tender (FreeStyle Adiel 3 [place]) device Indications: Type 2 diabetes with nephropathy (HCC) Check blood sugar 2-4 times daily. 1 each 12/12/2024 12/12/2025 Active Start: 11-16-2023 End: 06-28-2024 Continuous Glucose Furnace Door Tender (FreeStyle Adiel 3 [place]) device Indications: Type 2 diabetes mellitus with polyneuropathy (HCC) 1 Device daily. 1 each 11/16/2023 06/28/2024 Discontinued Start: 11-16-2023 Continuous Glu cose Furnace Door Tender (FreeStyle Adiel 3 [place]) device Indications: Type 2 diabetes mellitus with polyneuropathy (HCC) 1 Device daily. 1 each 11/16/2023 Active Start: 11-16-2023 Continuous Glu cose Furnace Door Tender (FreeStyle Adiel 3 [place]) device Indications: Type 2 diabetes mellitus with polyneuropathy (HCC) 1 Device daily. 1 each 11/16/2023 Active Continuous Glucose Sensor (FreeStyle Adiel 3 Sensor) misc (20 sources) Start: 12-11-2024 Continuous Glu cose Sensor (FreeStyle Adiel 3 Sensor) misc Indications: Type 2 diabetes with nephropathy (HCC) every 14 (fourteen) days. 2 each 12/11/2024 Active Start: 11-16-2023 End: 06-28-2024 Continuous Glucose Sensor (F reeStyle Adiel 3 Sensor) misc Indications: Type 2 diabetes mellitus with polyneuropathy (HCC) every 14 (fourteen) days. 2 each 11/16/2023 06/28/2024 Discontinued Start: 11-16-2023 Continuous Glu cose Sensor (FreeStyle Adiel 3 Sensor) misc Indications: Type 2 diabetes mellitus with polyneuropathy (HCC) every 14 (fourteen) days. 2 each 11/16/2023 Active diclofenac sodium 0.01 mg/mg topical gel [...] Take by mouth daily. 0 Active glimepiride 4 mg oral tablet (20 sources) Sulfonylurea Start: 11-01-19 take 1 tablet by mouth once daily at breakfast glimepiride (Amaryl) 4 MG tablet Indications: Type 2 diabetes mellitus with hyperglycemia, unspecified whether senior care insulin use (HCC) Take 1 tablet (4 mg) by mouth daily (with breakfast). 90 tablet 1 10/31/2024 Active Start: 09-01-2024 take 2 tablets by [facility] once daily at breakfast glimepiride (Amaryl) 2 MG tablet Indications: Type 2 diabetes mellitus with hyperglycemia, unspecified whether exterminator insulin use (HCC) Take 2 tablets (4 mg) by mouth daily (with breakfast). 09/28/2024 Active Start: 06-30-2024 End: 08-01-2024 take 1 tablet by mouth once daily at breakfast glimepiride (Amaryl) 2 MG tablet Indications: Type 2 diabetes mellitus with hyperglycemia, unspecified whether exterminator insulin use (HCC) Take 1 tablet (2 mg) by mouth daily (with breakfast). 30 tablet 08/01/2024 Active Handicap Placard MISC (6 sources) Start: 07-20-2017 Handicap Justa robledo MISC by Does not apply route Duration: 5 years, 2021 1 each 0 07/20/2017 Active hydrOXYzine hydrochloride 25 mg oral tablet (20 [...] needed for anxiety. 90 tablet 3 08/26/2023 Active Start: 09-07-2022 take 1 tablet by herve th twice daily as needed hydrOXYzine HCl (Atarax) 25 MG tablet Take 25 mg by mouth 2 times daily as needed. 0 09/07/2022 Active 3 ml insulin glargine 100 unt/ml pen injector (20 sources) Insulin Analog Start: 12-25-2024 Lantus SoloSta r 100 UNIT/ML pen Indications: Type 2 diabetes mellitus with hyperglycemia, unspecified whether exterminator insulin use (HCC) INJECT 14 UNITS SUBCUTANEOUSLY NIGHTLY 15 mL 12/25/2024 Active Start: 10-24-2024 End: 12-25-2024 insulin glargine (Lantus Jennifer oStar) 100 UNIT/ML pen Indications: Type 2 diabetes mellitus with hyperglycemia, unspecified whether senior care insulin use (HCC) Inject 16 Units under the skin Nightly. 10/24/2024 12/25/2024 Discontinued Start: 10-03-2024 End: 10-24-2024 insulin glargine (Lantus Jennifer oStar) 100 UNIT/ML pen Indications: Type 2 diabetes mellitus with hyperglycemia, unspecified whether exterminator insulin use (HCC) Inject 14 Units under the skin Nightly. 5 Pen 10/03/2024 10/24/2024 Discontinued Start: 08-02-2024 End: 09-20-2024 inject 10 [IU] by subcutaneous injection once daily Lantus SoloStar 100 UNIT/ML pen Indications: Type 2 diabetes mellitus with hyperglycemia, unspecified whether senior care insulin use (HCC) INJECT 10 UNITS SUBCUTANEOUSLY NIGHTLY. DISCARD PEN AFTER 28 DAYS. 3 mL 09/20/2024 Active Start: 02-19-2023 End: 02-20-2023 insulin glargine (Lantus) injection 15 Units labetalol hydrochloride 100 mg oral tablet (20 sources) beta-Adrenergic Jenn Start: 10-31-2024 take 1 tablet by mouth twice daily labetalol (Normodyne) 100 MG tablet Indications: Essential hypertension Take 1 tablet (100 mg) by mouth 2 times daily. 180 tablet 1 10/31/2024 Active Start: 05-29-2024 take 1 tablet by herve th in the morning, then take 1 tablet by mouth in the evening labetalol (Normodyne) 100 MG tablet Indications: Essential hypertension TAKE 1 TABLET BY MOUTH IN THE MORNING AND 1 TAB IN THE EVENING 60 tablet 3 05/29/2024 Active Start: 08-26-2023 End: 10-03-2024 take 1 tablet [...] the evening. 60 tablet 3 08/26/2023 Active lactulose 667 mg/ml oral solution (10 sources) Osmotic Laxative Start: 10-31-2024 take 15 mL by mouth once daily Constulose 10 GM/15ML solution TAKE 15 ML BY MOUTH ONCE DAILY 10/31/2024 Active lidocaine 0.04 mg/mg medicated patch (4 [...] mg oral tablet (20 sources) Biguanide Start: 10-31-2024 take 1 tablet by mouth twice daily at mealtime metFORMIN (Glucophage) 1000 MG tablet Indications: Type 2 diabetes mellitus with polyneuropathy (HCC) Take 1 tablet (1,000 mg) by mouth 2 times daily (with meals). 180 tablet 1 10/31/2024 Active Start: 09-04-2024 take 1 tablet by herve th twice daily at mealtime metFORMIN (Glucophage) 1000 [...] Antifungal Start: 02-26-20 End: 02-26-20 nystatin (Mycostatin) [id number] UNIT/GM powder Apply topically 2 times daily. 30 g 02/26/2024 02/25/2025 Active Start: 07-29-2020 End: 04-07-2022 Nystatin Discontinued 1 APPL IC TOPICAL THREE TIMES A DAY July 29, 2020 12:00am April 07, 2022 1:15pm Start: 04-08-2020 nystatin (MYCO STATIN) [id number] UNIT/GM cream Indications: Skin yeast infection Apply topically 2 times daily to groin. 30 g 0 04/08/2020 Active Oxymetazoline (1 source) Oxymetazoline HC l (SINEX ULTRA FINE MIST 12-HOUR NA) by Nasal route 0 Active pantoprazole 40 mg delayed release oral tablet (4 sources) Proton Pump Inhibitor Start: 2024 take 1 tablet by mouth once daily before breakfast pantoprazole (ProtoNix) 40 MG EC tablet Take 40 mg by mouth every morning (before breakfast). 12/06/2024 Active PARoxetine hydrochloride 40 mg oral tablet (1 source) Serotonin Reuptake Inhibitor Start: 2019 take 1 tablet by mouth once daily in the morning PARoxetine (PAXIL) 40 MG tablet Indications: Moderate episode of recurrent major depressive disorder (HCC) , Anxiety Take 1 tablet by mouth every morning 30 tablet 2 08/07/2019 Active polyethylene glycol 3350 [id number] mg / potassium chloride 2970 mg / sodium bicarbonate 6740 mg / sodium chloride 5860 mg / sodium sulfate 03301 mg powder for oral solution (4 sources) Osmotic Laxative Start: 2024 PEG 8504-IYc-FaGqj-NaCl- NaSulf (PEG-3350/Electrolyt es) 236 g reconstituted solution DRINK 240 ML BY MOUTH EVERY 10 MINUTES, DIRECTED FOR SPLIT DOSE BOWEL PREP 12/12/2024 Active promethazine hydrochloride 25 mg oral tablet (3 sources) Phenothiazine Start: 2024 End: 2024 take 1 tablet by mouth every six hours as needed for nausea and vomiting promethazine (Phenergan) 25 MG tablet Take 1 tablet (25 mg) by mouth every 6 hours as needed for nausea or vomiting for up to 3 days. 12 tablet 12/23/2024 12/26/2024 Active rosuvastatin calcium 5 mg oral tablet (18 sources) HMG-CoA Reductase Inhibitor Start: 2024 End: 2024 take 1 tablet by mouth once daily rosuvastatin (Crestor) 5 MG tablet Indications: Hyperlipidemia LDL goal Take 1 tablet (5 mg) by mouth daily. 90 tablet 1 09/01/2024 02/28/2025 Active sodium chloride flush 0.9 % injection 3 mL (1 source) Start: 2019 sodium chloride flush 0.9 % injection 3 mL spironolactone (Aldactone) 12.5 MG split tablet (4 sources) Start: 2024 take 1 tablet by mouth once daily spironolactone (Aldactone) 12.5 MG split tablet Take 12.5 mg by mouth daily. 12/19/2024 Active Tirzepatide (Mounjaro) 2.5 MG/0.5ML solution auto-injector (8 sources) Start: 2024 inject 2.5 mg by subcutaneous injection every [...] Active Tirzepatide (Mounjaro) 5 MG/0.5ML solution auto-injector (11 sources) Start: 11-20-2024 inject 5 mg by subcutaneous injection every week Tirzepatide (Mounjaro) 5 MG/0.5ML solution auto-injector Indications: Type 2 diabetes mellitus with polyneuropathy (HCC) Inject 5 mg under the skin 1 (one) time per week. 4 mL 11/20/2024 Active Start: 10-11-2024 inject 5 mg by subcu taneous injection every week Tirzepatide (Mounjaro) 5 MG/0.5ML solution auto-injector Indications: Type 2 diabetes mellitus with polyneuropathy (HCC) Inject 5 mg under the skin 1 (one) time per week. 2 mL 10/11/2024 Active traMADol hydrochloride 50 mg oral tablet (11 sources) Opioid Agonist Start: 09-25-2024 take 1 tablet [...] Start: 05-28-2020 take 1 capsule by mo [facility] once daily venlafaxine (EFFEXOR XR) 150 MG [...] Every 4 hours PRN, headaches, Starting on Wed02/19/24 at 1533 Start: 02-19-2024 End: 02-24-2024 take 1 tablet by mouth every six hours as needed for headache [id number]-bafyqgxd 50-325 -40 MG tablet Take 1 tablet by mouth every 6 hours as needed for headaches for up to 5 days. 20 tablet 02/19/2024 02/24/2024 Active [id number] 200 actuat albuterol 0.09 mg/actuat metered dose [...] needed. 0 08/20/2022 02/20/2023 Discontinued (Reorder) Start: 01-18-2021 take 1 puff(s) by in halation every [...] 1:28pm Start: 10-03-2018 take 1 capsule by [facility] once daily RA VITAMIN D-3 2000 [...] g 0 02/04/2023 02/16/2023 Discontinued (Therapy completed) cyclobenzaprine hydrochloride 10 mg oral tablet (20 [...] daily. 30 tablet 5 12/09/2022 02/16/2023 Discontinued EPINEPHrine 0.01 mg/ml / lidocaine hydrochloride 10 mg/ml injectable solution (2 sources) Antiarrhythmic, alpha-Adrenergic Agonist, beta-Adrenergic Agonist, Catecholamine, Amide Local Anesthetic Start: 12-19-2024 End: 12-19-2024 10 mL, Infiltration, Once, On Tu12/19/24 at 1905, For 1 dose 2 ml famotidine 10 mg/ml injection (5 [...] and sodium chlo ride 0.9 % infusion insulin lispro 100 unt/ml injectable solution (10 [...] 02/19/24 at 1140, For 1 dose ondansetron 4 mg disintegrating oral tablet (14 sources) Serotonin-3 Receptor Antagonist Start: 12-23-2024 End: 12-23-2024 take 4 mg by mouth once 4 mg, Oral, Once, On 12/23/24 at 1220, For 1 dose Start: 12-14-2024 take 1 tablet by herve th every six hours as needed for nausea and vomiting ondansetron (Zofran) 4 MG tablet Take 4 mg by mouth every 6 hours as needed for nausea or vomiting. 12/14/2024 Active Start: 02-19-2024 End: 02-22-2024 take 1 tablet [...] 3 days. 10 tablet 0 02/01/2023 02/04/2023 ondansetron ODT (Zofran-ODT) disintegrating tablet 4 mg (4 sources) Start: 10-12-2023 End: 10-12-2023 take 1 tablet by mouth every eight hours as needed for nausea and vomiting ondansetron ODT (Zofran-ODT) disintegrating tablet 4 mg Start: 02-18-2023 End: 02-20-2023 take 1 tablet by mouth every eight hours as needed for nausea and vomiting ondansetron ODT (Zofran-ODT) disintegrating tablet 4 mg oxyCODONE hydrochloride 5 mg oral tablet (4 sources) Opioid Agonist Start: 01-09-2025 End: 01-09-2025 take 5 mg by mouth once 5 mg, Oral, Once, On Wed01/09/25 at 2105, For 1 dose Start: 01-09-2025 End: 01-11-2025 take 1 tablet by mouth every six hours as needed for pain oxyCODONE (Roxicodone) 5 MG immediate release tablet Indications: Acute midline low back pain without sciatica , Contusion of sacrum, initial encounter Take 1 tablet (5 mg) by mouth every 6 hours as needed for severe pain (7-10) for up to 2 days. 8 tablet 01/09/2025 01/11/2025 Active polyethylene glycol 3350 55318 mg powder for oral solution (4 sources) [...] long-term current use of insulin (HCC) , MCC current use of insulin (HCC) , Uncontrolled [...] long-term current use of insulin (HCC) , MCC current use of insulin (HCC) , Uncontrolled type 2 diabetes mellitus with complication (HCC) inject 130 units before breakfast and 85 units before dinner 18 mL 8 01/15/2020 Active Start: 06-30-2019 insulin regula r human (HUMULIN R U-500 KWIKPEN) 500 UNIT/ML SOPN concentrated injection pen Indications: Uncontrolled type 2 diabetes mellitus with microalbuminuria, with long-term current use of insulin (HCC) , MCC current use of insulin (HCC) inject 130 units before breakfast and 65 units before dinner 18 mL 8 06/30/2019 Active 50 ml sodium chloride 9 mg/m l injection (18 sources) Start: 01-09-2025 End: 01-09-2025 1,000 mL, IntraVENous, at 1, 000 mL/hr, Administer over 1 Hours, Once, On Wed01/09/25 at 0205, For 1 dose Start: 09-27-2024 End: 09-27-2024 1,000 mL, IntraVENous, [...] Translations: [Acute kidney failure, unspecified] 09-27-2024 Episodic Anxiety disorders (20 sources) Anxiety disorder, [...] anemia (3 sources) Other pancytopenia; Translations: [Other pancytopenia] Onset: 11-11-2023 Chronic Diabetes mellitus with complications [...] Onset: 07-20-2016 2018 Chronic E Codes: Fall (8 sources) Fall; Translations: [Unspecified fall, initial encounter] Onset: 12-23-2024 01-15-2023 Episodic Esophageal disorders (20 sources) Gastro-esophageal reflux disease without esophagitis; Translations: [Gastroesophageal reflux disease without esophagitis] Onset: 07-20-2016 2018 Chronic Essential hypertension (20 sources) Essential (primary) hypertension; Translations: [Essential hypertension] Onset: 02-18-2018 10-31-2018 Chronic Fluid and electrolyte disorders (20 sources) Hypo-osmolality and hyponatremia; Translations: [Hyponatremia] Onset: 2018 Resolved: 08-01-2024 2018 Episodic Headache; including migraine (20 sources) Migraine without [...] unspecified] Onset: 11-10-2023 11-10-2023 Chronic Nutritional deficiencies (20 sources) Cobalamin deficiency; Translations: [Deficiency of other specified B group vitamins] Onset: 08-01-2024 08-01-2024 Episodic Osteoarthritis (20 sources) Unspecified osteoarthritis, unspecified site; Translations: [Degenerative joint disease involving multiple joints] Onset: 2018 01-15-2020 Chronic Other aftercare (2 sources) 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; Translations: [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] Onset: 2018 Episodic [...] 04-21-2023 Chronic Other liver diseases (2 sources) Unspecified cirrhosis of liver; Translations: [Unspecified cirrhosis of liver] Onset: 12-21-2024 Chronic Other liver diseases (2 sources) Other cirrhosis of liver; Translations: [Other cirrhosis of liver (HCC)] Onset: 11-11-2023 Chronic Other lower respiratory disease (1 source) [...] neoplasm of respiratory organs] Onset: 04-19-2023 Episodic Other skin disorders (2 sources) Skin tag; Translations: [Other hypertrophic disorders of the skin] 12-19-2024 Episodic Other skin disorders (2 sources) Other hypertrophic disorders of the skin; Translations: [Other hypertrophic disorders of the skin] Onset: 12-19-2024 Episodic Phlebitis; thrombophlebitis and thromboembolism (11 sources) Portal vein thrombosis; Translations: [Portal vein thrombosis] Onset: 11-16-2024 11-16-2024 Episodic Regional enteritis and ulcerative colitis (5 sources) Crohn's disease, unspecified, with unspecified complications; Translations: [Crohn's disease] Onset: 12-18-2024 01-08-2025 Chronic Residual codes; unclassified (20 sources) Obstructive sleep apnea syndrome; Translations: [Obstructive sleep apnea (adult) (pediatric)] Onset: 10-31-2018 10-31-2018 Chronic Residual codes; unclassified (1 source) Generalized aches and pains; Translations: [Body aches] Episodic Residual codes; unclassified (2 sources) Face goes red; Translations: [Flushing] 09-27-2024 Episodic Residual codes; unclassified (2 sources) Past history of procedure; Translations: [Other specified postprocedural states] 12-19-2024 Episodic Residual codes; unclassified (2 sources) Other specified postprocedural states; Translations: [Other specified postprocedural states] Onset: 12-19-2024 Episodic Residual codes; unclassified (2 sources) Pain, unspecified; Translations: [Pain, unspecified] Onset: 10-24-2024 Episodic Screening and history of mental health and substance abuse codes (12 sources) Personal history of nicotine dependence; Translations: [Tobacco use and exposure - finding] Onset: 2018 Episodic Spondylosis; intervertebral disc disorders; other back problems (15 sources) Backache; Translations: [Dorsalgia, unspecified] Onset: 04-22-2023 Resolved: 10-24-2024 10-24-2024 Episodic Superficial injury; contusion (8 sources) Contusion of lower back; Translations: [Contusion of lower back and pelvis, initial encounter] Onset: 12-23-2024 12-23-2024 Episodic Syncope (2 sources) Near syncope; Translations: [Syncope and collapse] 02-13-2023 Episodic Unclassified (2 sources) Low back pain, unspecified; Translations: [Low back pain, unspecified] Onset: 11-08-2024 Past or Other Problems Problem Classification Problem Date Documented Da te Episodic/Chronic Abdominal hernia (20 sources) Incisional hernia; Translations: [Incisional hernia without obstruction or gangrene] Onset: 12-03-2022 11-10-2023 Episodic Administrative/social admission (20 sources) Financial problem; Translations: [Problem related to housing and economic circumstances, unspecified] Onset: 08-01-2024 08-01-2024 Episodic Diabetes mellitus without complication (20 sources) Hyperglycemia; Translations: [Acute hyperglycemia] Onset: 01-15-2020 Resolved: 11-11-2023 01-15-2020 Episodic E Codes: Fall (2 sources) Fall 12-23-2024 Genitourinary symptoms and ill-defined conditions (20 sources) Proteinuria; Translations: [Proteinuria, unspecified] Onset: 01-15-2020 Resolved: 11-11-2023 01-15-2020 Episodic Headache; including migraine (20 sources) Headache; Translations: [Headache disorder] Onset: 11-10-2023 11-10-2023 Episodic Mood disorders (20 sources) Major depressive disorder, single episode, unspecified; [...] face] Onset: 08-26-2023 Resolved: 11-11-2023 02-04-2023 Episodic Sprains and strains (20 sources) Sprain of left knee; Translations: [Sprain of unspecified site of left knee, initial encounter] Onset: 08-26-2023 Resolved: 11-11-2023 02-06-2023 Episodic Unclassified (1 source) Low back pain, unspecified; Translations: [Low back pain, unspecified] Onset: 01-09-2025 Viral infection (9 sources) Disease caused by 2019-nCoV; Translations: [COVID-19] Onset: 04-13-2024 Episodic Results Test Name Value Interpretation Reference Range Facility 36on 01-09-2025 36 Please see if we can get her in earlier for her annual physical/ER follow up Normal [facility] AMMONIAon 01-09-2025 Ammonia (P) [Moles/Vol] 43 umol/L Normal 18-72 [facility] Comment on above: Performed By: #### L [id number] ####Business And Financial Counsel: MANAN ARANDA ([phone])[facility] ([facility])[address] [place] [address] CBC W Auto Differential pane l (Bld)Ordered By: Preeti Olivo on 01-09-2025 Erythrocyte distribution width (RBC) [Ratio] 15.6 % High 11.5 - 15.0 % [facility] Hematocrit (Bld) [Volume fraction] 38.2 % 35.0 - 47.0 % [facility] Hemoglobin (Bld) [Mass/Vol] 12.4 g/dL 11.7 - 16.0 g/dL [facility] Interpretation and review of laboratory results Abnormal [facility] IPF 4 [facility] MCH (RBC) [Entitic mass] 27.2 pg 26.0 - 34.0 pg [facility] MCHC (RBC) [Mass/Vol] 32.5 % 30.5 - 36.0 % [facility] MCV (RBC) [Entitic vol] 83.8 fL 77.0 - 99.0 fL [facility] Platelet mean volume (Bld) [Entitic vol] 11.2 fL 9.0 - 12.7 fL [facility] Platelets (Bld) [#/Vol] 61 10*3/uL Low 140 - 440 10*3/uL [facility] RBC (Bld) [#/Vol] 4.56 10*6/uL 3.80 - 5.2 0 10*6/uL [facility] WBC (Bld) [#/Vol] 6.3 10*3/uL 3.6 - 10.7 10*3/uL [facility] CBC WITH AUTO DIFFERENTIALon 01-09-2025 Erythrocyte distribution width (RBC) [Ratio] 15.6 % High 11.5-15.0 [facility] Comment on above: Performed By: #### L [id number], [id number] #### Business And Financial Counsel: MANAN ARANDA ([phone]) [facility] ([facility]) [address] [place] [address] Hematocrit (Bld) [Volume fraction] 38.2 % Normal 35.0-47.0 [facility] Comment on above: Performed By: #### L [id number], [id number] #### Business And Financial Counsel: MANAN ARANDA ([phone]) [facility] ([facility]) [address] [place] [address] Hemoglobin (Bld) [Mass/Vol] 12.4 g/dL Normal 11.7-16.0 [facility] Comment on above: Performed By: #### L [id number], [id number] #### Business And Financial Counsel: MANAN ARANDA ([phone]) [facility] ([facility] [address] [place] [address] IPF 4 Normal [facility] Comment on above: Performed By: #### L [id number], [id number] #### Business And Financial Counsel: MANAN ARANDA ([phone]) [facility] ([facility]) [address] [place] [address] MCH (RBC) [Entitic mass] 27.2 pg Normal 26.0-34.0 [facility] Comment on above: Performed By: #### L [id number], [id number] #### Business And Financial Counsel: MANAN ARANDA ([phone]) [facility] ([facility]) [address] MCHC 32.5 % Normal 30.5-36.0 [facility] Comment on above: Performed By: #### L [id number], [id number] #### Business And Financial Counsel: MANAN ARANDA ([phone]) [facility] [place] ([facility]) [address] MCV (RBC) [Entitic vol] 83.8 fL Normal 77.0-99.0 [facility] Comment on above: Performed By: #### L [id number], [id number] #### Business And Financial Counsel: MANAN ARANDA ([phone]) [facility] ([facility]) [address] Platelet mean volume (Bld) [Entitic vol] 11.2 fL Normal 9.0-12.7 [facility] Comment on above: Performed By: #### L [id number], [id number] #### Business And Financial Counsel: MANAN ARANDA ([phone]) [facility] ([facility]) [address] Platelets (Bld) [#/Vol] 61 10*3/uL Low 140-440 [facility] Comment on above: Performed By: #### L [id number], [id number] #### Business And Financial Counsel: MANAN ARANDA ([phone]) [facility] ([facility]) [address] [place] [address] [place] RBC (Bld) [#/Vol] 4.56 10*6/uL Normal 3.80-5.20 [facility] Comment on above: Performed By: #### L [id number], [id number] #### Business And Financial Counsel: MANAN ARANDA ([id number]) [facility] ([facility]) [address] [place] [address] [place] WBC (Bld) [#/Vol] 6.3 10*3/uL Normal 3.6-10.7 [facility] Comment on above: Performed By: #### L [id number], [id number] #### Business And Financial Counsel: MANAN ARANDA ([phone]) [facility] [place] ([facility]) [address] COMPREHENSIVE METABOLIC PANE Rigoberto 01-09-2025 Albumin [Mass/Vol] 3.5 g/dL Normal 3.5-5.0 [facility] Comment on above: Performed By: #### L [id number] ####Business And Financial Counsel: MANAN ARANDA ([phone])[facility] [place] ([facility])[address] ALP [Catalytic activity/Vol] 77 U/L Normal 40-150 [facility] Comment on above: Performed By: #### L [id number] ####Business And Financial Counsel: MANAN ARANDA ([phone])[facility] [place] ([facility])[address] ALT [Catalytic activity/Vol] 23 U/L Normal <30 [facility] Comment on above: Performed By: #### L [id number] ####Business And Financial Counsel: MANAN ARANDA ([phone])[facility] [place] ([facility])[address] Anion gap [Moles/Vol] 12 mmol/L Normal 3-13 [facility] Comment on above: Performed By: #### L [id number] ####Business And Financial Counsel: MANAN ARANDA ([phone])[facility] [place] ([facility])[address] AST [Catalytic activity/Vol] 75 U/L High <34 [facility] Comment on above: Performed By: #### L [id number] ####Business And Financial Counsel: MANAN ARANDA ([phone])[facility] [place] ([facility])[address] Bilirubin [Mass/Vol] 2.2 mg/dL High <1.2 [facility] Comment on above: Performed By: #### L [id number] ####Business And Financial Counsel: MANAN ARANDA ([phone])[facility] [place] ([facility])[address] Calcium [Mass/Vol] 9.1 mg/dL Normal 8.4-10.2 [facility] Comment on above: Performed By: #### L [id number] ####Business And Financial Counsel: MANAN ARANDA ([phone])[facility] ([facility])[address] [place] [address] [place] Chloride [Moles/Vol] 108 mmol/L High 98-107 [facility] Comment on above: Performed By: #### L [id number] ####Business And Financial Counsel: MANAN ARANDA ([phone])[facility] ([facility])[address] CO2 [Moles/Vol] 18 mmol/L Low 22-29 [facility] Comment on above: Performed By: #### L [id number] ####Business And Financial Counsel: MANAN ARANDA ([phone])[facility] ([facility])[address] Creatinine [Mass/Vol] 1.75 mg/dL High 0.57-1.11 [facility] Comment on above: Performed By: #### L [id number] ####Business And Financial Counsel: MANAN ARANDA ([phone])[facility] ([facility])[address] [place] [address] [place] GLOMERULAR FILTRATION RATE ML/MIN/1.73 SQ M.PREDICTED 33.6 mL/min/1.73m*2 Low >60.0 [facility] Comment on above: Result Comment: Calc ulation based on the Chronic Kidney Disease Epidemiology Collaboration (CKD-EPI) equation refit without adjustment for race Performed By: #### L [id number] ####Business And Financial Counsel: MANAN ARANDA ([phone])[facility] ([facility])[address] [place] [address] [place] Glucose [Mass/Vol] 162 mg/dL High 74-100 [facility] Comment on above: Performed By: #### L [id number] ####Business And Financial Counsel: MANAN ARANDA ([phone])[facility] ([facility])[address] Potassium [Moles/Vol] 4.3 mmol/L Normal 3.5-5.1 [facility] Comment on above: Result Comment: [facility] potassium values may be up to 0.5 mmol/L lower than serum values. Performed By: #### L [id number] ####Business And Financial Counsel: MANAN RICHMONDCER ([phone])[facility] ([facility])[address] Protein [Mass/Vol] 7.2 g/dL Normal 6.4-8.3 [facility] Comment on above: Performed By: #### L [id number] ####Business And Financial Counsel: MANAN PASCALSOBEIDA ([phone])[facility] ([facility])[address] [place] [address] Sodium [Moles/Vol] 138 mmol/L Normal 136-145 [facility] Comment on above: Performed By: #### L [id number] ####Business And Financial Counsel: MANAN LIRADANG ([phone])[facility] [place] ([facility])[address] Urea nitrogen [Mass/Vol] 24 mg/dL High 9-23 [facility] Comment on above: Performed By: #### L [id number] ####Business And Financial Counsel: MANAN LIRADANG ([phone])[facility] ([facility])[address] [place] [address] CT HEAD WO IV CONTRASTon CT HEAD WO IV CONTRAST Patient Name: EMLANIE CAREY : 1965 Exam Date/Time: 01/09/2025 00:32 Procedure: CT HEAD WO IV CONTRAST Ordering Provider: ESPITIA MICHAEL Reason For Exam: Dizziness, persistent/recurrent, cardiac or vascular cause suspected EXAMINATION: CT HEAD WO IV CONTRAST HISTORY: Dizziness, persistent/recurrent, cardiac or vascular cause suspected - - - - - [id number] - - - - multiple falls over the last three days. TECHNIQUE: CT head without contrast. Dose reduction was employed with automated exposure control. COMPARISON: CT head dated February 19, 2024 RESULT: Acute change: No evidence of an acute intracranial process. Hemorrhage: No evidence of acute intracranial hemorrhage. Mass Lesion / Mass Effect: No evidence of an intracranial mass, extra-axial fluid collection, or significant localized mass effect. Chronic change: Scattered patchy foci of low attenuation are present within supratentorial white matter which is a nonspecific finding but likely represents mild microvascular ischemia. Parenchyma: There is mild generalized volume loss. The brain parenchyma is otherwise within normal limits for age. Ventricles: Commensurate with volume loss. Other: The calvarium, skull base, imaged paranasal sinuses, mastoids, orbits and extracranial soft tissues are unremarkable. [employer] Sales Engineer (topogram) images: ASPECTS SCORE: 10 IMPRESSION: No CT evidence of an acute intracranial abnormality. Report Dictated on Electronically Signed By: Ray Moe MD Electronically Signed Date/Time: 01/09/2025 1:01 AM EDT Multiple falls, hasn't been feeling like herself x 3 days Normal [facility] CT Head WO contraston [address] evidence of an acute intracranial abnormality. Report Dictated on Electronically Signed By: Ray Moe MD Electronically Signed Date/Time: 01/09/2025 1:01 AM [facility] Name[facility] 1965 [id number] Exam Date/Time: 01/09/2025 00:32 Procedure: CT HEAD WO IV CONTRAST Ordering Provider: ESPITIA MICHAEL Reason For Exam: Dizziness, persistent/recurrent, cardiac or vascular cause suspected EXAMINATION: CT HEAD WO IV CONTRAST HISTORY: Dizziness, persistent/recurrent, cardiac or vascular cause suspected - - - - - [id number] - - - - multiple falls over the last three days. TECHNIQUE: CT head without contrast. Dose reduction was employed with automated exposure control. COMPARISON: CT head dated February 19, 2024 RESULT: Acute change: No evidence of an acute intracranial process. Hemorrhage: No evidence of acute intracranial hemorrhage. Mass Lesion / Mass Effect: No evidence of an intracranial mass, extra-axial fluid collection, or significant localized mass effect. Chronic change: Scattered patchy foci of low attenuation are present within supratentorial white matter which is a nonspecific finding but likely represents mild microvascular ischemia. Parenchyma: There is mild generalized volume loss. The brain parenchyma is otherwise within normal limits for age. Ventricles: Commensurate with volume loss. Other: The calvarium, skull base, imaged paranasal sinuses, mastoids, orbits and extracranial soft tissues are unremarkable. [employer] Sales Engineer (topogram) images: ASPECTS SCORE: 10 [facility] Ray Moe MD - 01/09/2025 Patient Name: MELANIE CAREY : 1965 [id number] Exam Date/Time: 01/09/2025 00:32 Procedure: CT HEAD WO IV CONTRAST Ordering Provider: ESPITIA MICHAEL Reason For Exam: Dizziness, persistent/recurrent, cardiac or vascular cause suspected EXAMINATION: CT HEAD WO IV CONTRAST HISTORY: Dizziness, persistent/recurrent, cardiac or vascular cause suspected - - - - - [id number] - - - - multiple falls over the last three days. TECHNIQUE: CT head without contrast. Dose reduction was employed with automated exposure control. COMPARISON: CT head dated February 19, 2024 RESULT: Acute change: No evidence of an acute intracranial process. Hemorrhage: No evidence of acute intracranial hemorrhage. Mass Lesion / Mass Effect: No evidence of an intracranial mass, extra-axial fluid collection, or significant localized mass effect. Chronic change: Scattered patchy foci of low attenuation are present within supratentorial white matter which is a nonspecific finding but likely represents mild microvascular ischemia. Parenchyma: There is mild generalized volume loss. The brain parenchyma is otherwise within normal limits for age. Ventricles: Commensurate with volume loss. Other: The calvarium, skull base, imaged paranasal sinuses, mastoids, orbits and extracranial soft tissues are unremarkable. [employer] Sales Engineer (topogram) images: ASPECTS SCORE: 10 IMPRESSION: No CT evidence of an acute intracranial abnormality. Report Dictated on Electronically Signed By: Ray Moe MD Electronically Signed Date/Time: 01/09/2025 1:01 AM EDT [facility] Radiology Study observation (narrative) [facility] CT Head WO contrastOrdered B y: Ray Moe on 01-09-2025 [facility] Work Phone: Comprehensive metabolic 1998 panelon 01-09-2025 Albumin [Mass/Vol] 3.5 g/dL 3.5 - 5.0 g/dL [facility] ALP [Catalytic activity/Vol] 77 U/L 40 - 150 U/L [facility] ALT [Catalytic activity/Vol] 23 U/L NINF - 30 U/L [facility] Anion gap [Moles/Vol] 12 mmol/L 3 - 13 mmol/L [facility] AST [Catalytic activity/Vol] 75 U/L High NINF - 34 U/L [facility] Bilirubin [Mass/Vol] 2.2 mg/dL High NINF - 1.2 mg/dL [facility] Calcium [Mass/Vol] 9.1 mg/dL 8.4 - 10. 2 mg/dL [facility] Chloride [Moles/Vol] 108 mmol/L High 98 - 10 7 mmol/L [facility] CO2 [Moles/Vol] 18 mmol/L Low 22 - 29 mmol/L [facility] Creatinine [Mass/Vol] 1.75 mg/dL High 0.57 - 1.11 mg/dL [facility] GFR/1.73 sq M.predicted (S/P/Bld) [Vol rate/Area] 33.6 mL/min Low - PINF [facility] Comment on above: Calculation based on the Chronic Kidney Disease Epidemiology Collaboration (CKD-EPI) equation refit without adjustment for race Glucose [Mass/Vol] 162 mg/dL High 74 - 100 mg/dL [facility] Interpretation and review of laboratory results Abnormal [facility] Potassium [Moles/Vol] 4.3 mmol/L 3.5 - 5.1 mmol/L [facility] Comment on above: Plasma potassium chelsy ues may be up to 0.5 mmol/L lower than serum values. Protein [Mass/Vol] 7.2 g/dL 6.4 - 8.3 g/dL [facility] Sodium [Moles/Vol] 138 mmol/L 136 - 145 mmol/L [facility] Urea nitrogen [Mass/Vol] 24 mg/dL High 9 - 23 mg/dL [facility] ECG 12-LEADon 01-09-2025 ECG 12-LEAD IMPRESSION: Sinus rhythm RBBB and LAFB Electronically Signed On 01-09-2025 00:48:[address] Ray [address]ia [facility] ED Provider Noteon ED Provider Note EMERGENCY DEPARTMENT ENCOUNTER Pt Name: Raiza Carey Birthdate 1965 Date of evaluation: 01/09/2025 ED Provider: Clayton Doe, NICOLE - HOLLIE I have evaluated this patient on my own, per my scope of practice with an attending physician available for consultation. CHIEF COMPLAINT Chief Complaint Patient presents with Back Pain Hip Pain Patient reports she fell yesterday. States she was seen last night. HISTORY OF PRESENT ILLNESS (Location/Symptom, Timing/Onset, Context/Setting, Quality, Duration, Modifying Factors, Severity) Note limiting factors. I wore appropriate PPE for the entirety of this encounter. HPI Raiza Carey is a 59 y.o. who presents to the emergency department with chief complaint of low back pain, sacral pain pain across the lower pelvis posteriorly. She was fall couple days ago landed on her buttocks she continues to have pain pain when she gets up and trouble ambulating. She was seen yesterday because she was not feeling like herself she has had some frequent falls she has a history of nonalcoholic cirrhosis her workup and her CAT scan was essentially unremarkable but she still having back pain so she returns for that tonight. Nursing Notes were reviewed. Limitations to history: [...] discharge and vaginal pain. Musculoskeletal: Positive for arthralgias, back pain and myalgias. Skin: Negative for rash and wound. Neurological: Negative for syncope, weakness, light-headedness and headaches. Hematological: Negative for adenopathy. Psychiatric/Behavioral: Negative for agitation and confusion. All other systems reviewed and are negative. Pertinent positives and negatives as per HPI. PAST MEDICAL HISTORY Medical History[1] SURGICAL HISTORY Surgical History[2] CURRENT MEDICATIONS Previous Medications ALBUTEROL 108 (90 BASE) MCG/ACT INHALER Inhale 1 puff every 6 hours as needed for wheezing or shortness of breath. BUPROPION XL (WELLBUTRIN XL) 300 MG 24 HR TABLET Take 1 tablet (300 mg) by mouth every morning. Do not crush, chew, or split. BUSPIRONE (BUSPAR) 10 MG TABLET Take 1 tablet (10 mg) by mouth 2 times daily. CONSTULOSE 10 GM/15ML SOLUTION TAKE 15 ML BY MOUTH ONCE DAILY CONTINUOUS GLUCOSE DYNAMOMETER TESTER ENGINE (FREESTYLE ADIEL 3 READER) DEVICE Check blood sugar 2-4 times daily. CONTINUOUS GLUCOSE SENSOR (FREESTYLE ADIEL 3 SENSOR) MISC every 14 (fourteen) days. CYANOCOBALAMIN (B-12 COMPLIANCE INJECTION) 1000 MCG/ML KIT Inject 1 ml (1000mcg) subcutaneous weekly x 4 then monthly ELIQUIS 2.5 MG TABLET Take 2.5 mg by mouth 2 times daily. GLIMEPIRIDE (AMARYL) 4 MG TABLET Take 1 tablet (4 mg) by mouth daily (with breakfast). LABETALOL (NORMODYNE) 100 MG TABLET Take 1 tablet (100 mg) by mouth 2 times daily. LANTUS SOLOSTAR 100 UNIT/ML PEN INJECT 14 UNITS SUBCUTANEOUSLY NIGHTLY METFORMIN (GLUCOPHAGE) 1000 MG TABLET Take 1 tablet (1,000 mg) by mouth 2 times daily (with meals). NYSTATIN (MYCOSTATIN) 840109 UNIT/GM POWDER Apply topically 2 times daily. ONDANSETRON (ZOFRAN) 4 MG TABLET Take 4 mg by mouth every 6 hours as needed for nausea or vomiting. PANTOPRAZOLE (PROTONIX) 40 MG EC TABLET Take 40 mg by mouth every morning (before breakfast). PEG 8464-WVN-EDDDD-NACL-NASULF (PEG-3350/ELECTROLYTES) 236 G RECONSTITUTED SOLUTION DRINK 240 ML BY MOUTH EVERY 10 MINUTES, DIRECTED FOR SPLIT DOSE BOWEL PREP ROSUVASTATIN (CRESTOR) 5 MG TABLET Take 1 tablet (5 mg) by mouth daily. SPIRONOLACTONE (ALDACTONE) 12.5 MG SPLIT TABLET Take 12.5 mg by mouth daily. TIRZEPATIDE (MOUNJARO) 5 MG/0.5ML SOLUTION AUTO-INJECTOR Inject 5 mg under the skin 1 (one) time per week. TRAMADOL (ULTRAM) 50 MG TABLET TAKE 1 TABLET BY MOUTH TWICE DAILY NEEDED FOR 7 DAYS UNIFINE PENTIPS 31G X 8 MM MISC Use as directed with insulin pen ALLERGIES Cat dander, Lisinopril, Pollen extract, and Xifaxan [rifaximin] FAMILY HISTORY Family History[3] SOCIAL HISTORY Social History[4] SCREENINGS PHYSICAL EXAM ED Triage Vitals [01/09/25 1854] Temp Heart Rate Resp BP 37.2 ?C (98.9 ?F) 87 20 121/70 SpO2 Temp Source Heart Rate Source Patient Position 97 % Temporal Monitor -- BP Location FiO2 (%) -- -- Physical Exam Vitals and nursing note reviewed. Constitutional: General: She is not in acute distress. Appearance: Normal appearance. She is not ill-appearing or toxic-appearing. HENT: Head: Normoceph (more content not included)... Normal [facility] LACTIC ACID WITH REFLEXon Lactate [Moles/Vol] 1.2 mmol/L Normal 0.5-2.2 [facility] Comment on above: Performed By: #### L [id number] ####Business And Financial Counsel: MANAN ARANDA ([phone])[facility] ([facility])[address] [place] [address] Laboratory - Chemistry and C hemistry - challengeon 01-09-2025 Lactate [Moles/Vol] 1.2 mmol/L 0.5 - 2. 2 mmol/L [facility] Ammonia (P) [Moles/Vol] 43 umol/L 18 - 72 umol/L [facility] Laboratory - Hematology and Cell countson 01-09-2025 Band form neutrophils (Bld) [#/Vol] 0.4 10*3/uL High NINF - 0.0 10*3/uL [facility] Band form neutrophils/100 WBC (Bld) 6 % High NINF - 0 % [facility] Lymphocytes (Bld) [#/Vol] 0.8 10*3/uL Low 1.0 - 4.3 10*3/uL [facility] Lymphocytes/100 WBC (Bld) 13 % Low 15 - 45 % [facility] Monocytes (Bld) [#/Vol] 0.4 10*3/uL 0.0 - 0.9 10*3/uL [facility] Monocytes/100 WBC (Bld) 7 % 5 - 13 % [facility] Neutrophils (Bld) [#/Vol] 5 10*3/uL 1.8 - 7.5 10*3/uL [facility] Ovalocytes LM Ql (Bld) Slight Abnormal (none) [facility] Poikilocytosis LM Ql (Bld) Slight Abnormal (none) [facility] Polychromasia LM Ql (Bld) Slight Abnormal (none) [facility] RBC morphology finding Nom (Bld) abnormal [facility] Segmented neutrophils/100 WBC (Bld) 74 % 38 - 82 % [facility] MANUAL DIFFERENTIAL (CELLAVI YASIR)on 01-09-2025 BAND NEUTROPHILS TOTAL PER COUNTED LEUKOCYTES BY MANUAL COUNT 6 Normal [facility] Comment on above: Performed By: #### L [id number], [id number] #### Business And Financial Counsel: MANAN ARANDA ([phone]) [facility] [place] (SB[facility]) [address] [place] [address] [place] BANDS (10*3/UL) IN BLOOD-CELLAVISION 0.4 10*3/uL High <=0.0 [facility] Comment on above: Performed By: #### L [id number], [id number] #### Business And Financial Counsel: MANAN ARANDA ([phone]) [facility] [place] ([facility]) [address] [place] [address] [place] BASOPHILS TOTAL PER COUNTED LEUKOCYTES BY MANUAL COUNT Normal [facility] Comment on above: Performed By: #### L [id number], [id number] #### Business And Financial Counsel: MANAN ARANDA ([phone]) [facility] [place] ([facility]) [address] [place] [address] [place] BLASTS TOTAL PER COUNTED LEUKOCYTES BY MANUAL COUNT Normal [facility] Comment on above: Performed By: #### L [id number], [id number] #### Business And Financial Counsel: MANAN ARANDA ([phone]) [facility] [address] [place] [address] [place] EOSINOPHILS TOTAL PER COUNTED LEUKOCYTES BY MANUAL COUNT Normal [facility] Comment on above: Performed By: #### L [id number], [id number] #### Business And Financial Counsel: MANAN ARANDA ([phone]) [facility] [place] ([facility]) [address] [place] [address] [place] LYMPHOCYTES (10*3/UL) IN BLOOD-CELLAVISION 0.8 10*3/uL Low 1.0-4.3 [facility] Comment on above: Performed By: #### L [id number], [id number] #### Business And Financial Counsel: MANAN ARANDA ([phone]) [facility] [place] ([facility]) [address] [place] [address] [place] LYMPHOCYTES TOTAL PER COUNTED LEUKOCYTES BY MANUAL COUNT 13 Normal [facility] Comment on above: Performed By: #### L [id number], [id number] #### Business And Financial Counsel: MANAN ARANDA ([phone]) [facility] [place] ([facility]) [address] [place] [address] [place] LYMPHOCYTES/100 LEUKOCYTES IN BLOOD-CELLAVISION 13 % Low 15-45 [facility] Comment on above: Performed By: #### L [id number], [id number] #### Business And Financial Counsel: MANAN ARANDA ([phone]) [facility] [place] ([facility]) [address] [place] [address] [place] METAMYELOCYTES TOTAL PER COUNTED LEUKOCYTES BY MANUAL COUNT Normal [facility] Comment on above: Performed By: #### L [id number], [id number] #### Business And Financial Counsel: MANAN ARANDA ([phone]) [facility] [place] ([facility]) [address] [place] [address] [place] MONOCYTES (10*3/UL) IN BLOOD-CELLAVISION 0.4 10*3/uL Normal 0.0-0.9 [facility] Comment on above: Performed By: #### L [id number], [id number] #### Business And Financial Counsel: MANAN ARANDA ([phone]) [facility] [place] ([facility]) [address] [place] [address] [place] MONOCYTES TOTAL PER COUNTED LEUKOCYTES BY MANUAL COUNT 7 Normal [facility] Comment on above: Performed By: #### L [id number], [id number] #### Business And Financial Counsel: MANAN ARANDA ([phone]) [facility] [place] ([facility]) [address] [place] [address] [place] MONOCYTES/100 LEUKOCYTES IN BLOOD-KG 7 % Normal 5-13 [facility] Comment on above: Performed By: #### L [id number], [id number] #### Business And Financial Counsel: MANAN ARANDA ([phone]) [facility] [place] ([facility]) [address] [place] [address] [place] MYELOCYTES COUNTED BY MANUAL COUNT Normal [facility] Comment on above: Performed By: #### L [id number], [id number] #### Business And Financial Counsel: MANAN ARANDA ([phone]) [facility] [address] [place] [address] [place] NEUTROPHILS BAND FORM/100 LEUKOCYTES IN BLOOD-CELLAVISI 6 % High <=0 [facility] Comment on above: Performed By: #### L [id number], [id number] #### Business And Financial Counsel: MANAN ARANDA ([phone]) [facility] ([facility] [address] [place] [address] [place] NEUTROPHILS TOTAL PER COUNTED LEUKOCYTES BY MANUAL COUNT 75 Normal [facility] Comment on above: Performed By: #### L [id number], [id number] #### Business And Financial Counsel: MANAN ARANDA ([phone]) [facility] [address] [place] [address] [place] OVALOCYTES PRESENCE IN BLOOD BY LIGHT MICROSCOPY Slight Abnormal (none) [facility] Comment on above: Performed By: #### L [id number], [id number] #### Business And Financial Counsel: MANAN ARANDA ([phone]) [facility] [address] [place] [address] [place] POIKILOCYTOSIS (PRESENCE) IN BLOOD BY LIGHT MICROSCOPY Slight Abnormal (none) [facility] Comment on above: Performed By: #### L [id number], [id number] #### Business And Financial Counsel: MANAN MANOJ ([phone]) [facility] ([facility]) [address] [place] [address] [place] POLYCHROMASIA IN BLOOD BY LIGHT MICROSCOPY Slight Abnormal (none) [facility] Comment on above: Performed By: #### L [id number], [id number] #### Business And Financial Counsel: MANAN LIRADANG ([phone]) [facility] ([facility]) [address] [place] [address] [place] PROMYELOCYTES TOTAL PER COUNTED LEUKOCYTES BY MANUAL COUNT Normal [facility] Comment on above: Performed By: #### L [id number], [id number] #### Business And Financial Counsel: MANAN MANOJ ([phone]) [facility] ([facility]) [address] [place] [address] [place] RBC MORPHOLOGY IN BLOOD abnormal Normal [facility] Comment on above: Performed By: #### L [id number], [id number] #### Business And Financial Counsel: MANAN LIRADANG ([phone]) [facility] ([facility]) [address] [place] [address] [place] SEGMENTED NEUTROPHILS (10*3/UL) IN BLOOD-CELLAVISION 5.0 10*3/uL Normal 1.8-7.5 [facility] Comment on above: Performed By: #### L [id number], [id number] #### Business And Financial Counsel: MANAN LIRADANG ([phone]) [facility] ([facility]) [address] [place] [address] [place] SEGMENTED NEUTROPHILS/100 LEUKOCYTES-CE 74 % Normal 38-82 [facility] Comment on above: Performed By: #### L [id number], [id number] #### Business And Financial Counsel: MANAN PASCALSOBEIDA ([phone]) [facility] ([facility]) [address] [place] [address] [place] UNCLASSIFIED CELLS TOTAL PER COUNTED LEUKOCYTES BY MANUAL COUNT Normal [facility] Comment on above: Performed By: #### L [id number], [id number] #### Business And Financial Counsel: MANAN ARANDA ([phone]) [facility] ([facility]) [address] VARIANT LYMPHOCYTES TOTAL PER COUNTED LEUKOCYTES BY MANUAL COUNT Normal [facility] Comment on above: Performed By: #### L [id number], [id number] #### Business And Financial Counsel: MANAN ARANDA ([phone]) [facility] ([facility]) [address] No Panel Informationon 01-09 Mild lumbar spondylo sis without evidence of an acute fracture or spondylolisthesis. PELVIS, SACRUM AND COCCYX: Indication: Trauma, pain Views: AP pelvis, Lateral and two angled AP views Comparison: None. Findings: There is no evidence for fracture or bone lesion. The sacroiliac joints are unremarkable. Mild bilateral hip osteoarthrosis. IMPRESSION: No fracture or dislocation. Report Dictated on Electronically Signed By: Yogesh Gonzalez MD Electronically Signed Date/Time: 01/09/2025 9:32 PM EDT [facility] Atypical Lymphocytes Manual [facility] Bands Manual 6 [facility] Basophils Manual [facility] Blasts Manual [facility] Eosinophils Manual [facility] Interpretation and review of laboratory results Abnormal [facility] Lymphocytes Manual 13 [facility] Metamyelocytes Manual [facility] Monocytes Manual 7 [facility] Myelocytes Manual [facility] Neutrophils Manual 75 [facility] Promyelocytes Manual [facility] Unclassified Cells, Manual [facility] Interpretation and review of laboratory results Normal [facility] Interpretation and review of laboratory results Normal [facility] P [place] 52 degrees [facility] CT Interval 186 ms [facility] QRS [place] -97 degrees [facility] QRSD Interval 139 ms [facility] QT Interval 401 ms [facility] QTC Interval 511 ms [facility] T Wave [place] 23 degrees [facility] Sinus rhythm RBBB and LAFB Electronically Signed On 01-09-2025 00:48:11 EDT by Ray Reyes MD - 01/09/2025 IMPRESSION: Sinus rhythm RBBB and LAFB Electronically Signed On 01-09-2025 00:48:11 EDT by Ray Espitia [facility] No Panel InformationOrdered By: Yogesh Gonzalez on 01-09-2025 [facility] Work Phone: Vital signson 01-09-2025 Heart rate 97 /min bpm [facility] XR Lumbar spine 2 or 3 Views on 01-09-2025 Patient Name: MELANIE CAREY : 1965 Exam Date/Time: 01/09/2025 21:01 Procedure: XR LUMBAR SPINE 2-3 VIEWS Ordering Provider: DOE DANIEL Reason For Exam: back pain, fall LUMBAR SPINE: CLINICAL INDICATION: Fall, pain. TECHNIQUE: AP, lateral and coned-down L5-S1. COMPARISON: None. FINDINGS: Six lumbar type vertebra present. For the purposes of the dictation, the last rib-bearing vertebrae are denoted as T12. The lumbar vertebrae demonstrate no wedge fracture or compression deformity. Mild osteophytic spurring is present in the upper lumbar spine. No significant disc height loss. Mild hypertrophic facet changes in the lower lumbar spine. There is no spondylolisthesis. The pedicles and sacroiliac joints are unremarkable. Vascular calcifications are present. [facility] Yogesh Gonzalez MD - 01/09/2025 Patient Name: MELANIE CAREY : 1965 Exam Date/Time: 01/09/2025 21:01 Procedure: XR LUMBAR SPINE 2-3 VIEWS Ordering Provider: DOE DANIEL Reason For Exam: back pain, fall LUMBAR SPINE: CLINICAL INDICATION: Fall, pain. TECHNIQUE: AP, lateral and coned-down L5-S1. COMPARISON: None. FINDINGS: Six lumbar type vertebra present. For the purposes of the dictation, the last rib-bearing vertebrae are denoted as T12. The lumbar vertebrae demonstrate no wedge fracture or compression deformity. Mild osteophytic spurring is present in the upper lumbar spine. No significant disc height loss. Mild hypertrophic facet changes in the lower lumbar spine. There is no spondylolisthesis. The pedicles and sacroiliac joints are unremarkable. Vascular calcifications are present. IMPRESSION: Mild lumbar spondylosis without evidence of an acute fracture or spondylolisthesis. PELVIS, SACRUM AND COCCYX: Indication: Trauma, pain Views: AP pelvis, Lateral and two angled AP views Comparison: None. Findings: There is no evidence for fracture or bone lesion. The sacroiliac joints are unremarkable. Mild bilateral hip osteoarthrosis. IMPRESSION: No fracture or dislocation. Report Dictated on Electronically Signed By: Yogesh Gonzalez MD Electronically Signed Date/Time: 01/09/2025 9:32 PM EDT [facility] Study observation (narrative) [facility] X[facility] Pelvis 1 or 2 Viewson Patient Name: MELANIE CAREY : 1965 Exam Date/Time: 01/09/2025 21:01 Procedure: XR PELVIS 1-2 VIEWS Ordering Provider: DOE DANIEL Reason For Exam: pain, fall LUMBAR SPINE: CLINICAL INDICATION: Fall, pain. TECHNIQUE: AP, lateral and coned-down L5-S1. COMPARISON: None. FINDINGS: Six lumbar type vertebra present. For the purposes of the dictation, the last rib-bearing vertebrae are denoted as T12. The lumbar vertebrae demonstrate no wedge fracture or compression deformity. Mild osteophytic spurring is present in the upper lumbar spine. No significant disc height loss. Mild hypertrophic facet changes in the lower lumbar spine. There is no spondylolisthesis. The pedicles and sacroiliac joints are unremarkable. Vascular calcifications are present. [facility] Yogesh Gonzalez MD - 01/09/2025 Patient Name: MELANIE CAREY : 1965 Exam Date/Time: 01/09/2025 21:01 Procedure: XR PELVIS 1-2 VIEWS Ordering Provider: DOE DANIEL Reason For Exam: pain, fall LUMBAR SPINE: CLINICAL INDICATION: Fall, pain. TECHNIQUE: AP, lateral and coned-down L5-S1. COMPARISON: None. FINDINGS: Six lumbar type vertebra present. For the purposes of the dictation, the last rib-bearing vertebrae are denoted as T12. The lumbar vertebrae demonstrate no wedge fracture or compression deformity. Mild osteophytic spurring is present in the upper lumbar spine. No significant disc height loss. Mild hypertrophic facet changes in the lower lumbar spine. There is no spondylolisthesis. The pedicles and sacroiliac joints are unremarkable. Vascular calcifications are present. IMPRESSION: Mild lumbar spondylosis without evidence of an acute fracture or spondylolisthesis. PELVIS, SACRUM AND COCCYX: Indication: Trauma, pain Views: AP pelvis, Lateral and two angled AP views Comparison: None. Findings: There is no evidence for fracture or bone lesion. The sacroiliac joints are unremarkable. Mild bilateral hip osteoarthrosis. IMPRESSION: No fracture or dislocation. Report Dictated on Electronically Signed By: Yogesh Gonzalez MD Electronically Signed Date/Time: 01/09/2025 9:32 PM EDT [facility] Radiology Study observation (narrative) [facility] XR Sacrum and Coccyx 2 Views on 01-09-2025 Patient Name: MELANIE CAREY : 1965 Exam Date/Time: 01/09/2025 21:01 Procedure: XR SACRUM COCCYX 2+ VIEWS Ordering Provider: DOE DANIEL Reason For Exam: pain, fall LUMBAR SPINE: CLINICAL INDICATION: Fall, pain. TECHNIQUE: AP, lateral and coned-down L5-S1. COMPARISON: None. FINDINGS: Six lumbar type vertebra present. For the purposes of the dictation, the last rib-bearing vertebrae are denoted as T12. The lumbar vertebrae demonstrate no wedge fracture or compression deformity. Mild osteophytic spurring is present in the upper lumbar spine. No significant disc height loss. Mild hypertrophic facet changes in the lower lumbar spine. There is no spondylolisthesis. The pedicles and sacroiliac joints are unremarkable. Vascular calcifications are present. [facility] Yogesh Gonzalez MD - 01/09/2025 Patient Name: MELANIE CAREY : 1965 Exam Date/Time: 01/09/2025 21:01 Procedure: XR SACRUM COCCYX 2+ VIEWS Ordering Provider: DOE DANIEL Reason For Exam: pain, fall LUMBAR SPINE: CLINICAL INDICATION: Fall, pain. TECHNIQUE: AP, lateral and coned-down L5-S1. COMPARISON: None. FINDINGS: Six lumbar type vertebra present. For the purposes of the dictation, the last rib-bearing vertebrae are denoted as T12. The lumbar vertebrae demonstrate no wedge fracture or compression deformity. Mild osteophytic spurring is present in the upper lumbar spine. No significant disc height loss. Mild hypertrophic facet changes in the lower lumbar spine. There is no spondylolisthesis. The pedicles and sacroiliac joints are unremarkable. Vascular calcifications are present. IMPRESSION: Mild lumbar spondylosis without evidence of an acute fracture or spondylolisthesis. PELVIS, SACRUM AND COCCYX: Indication: Trauma, pain Views: AP pelvis, Lateral and two angled AP views Comparison: None. Findings: There is no evidence for fracture or bone lesion. The sacroiliac joints are unremarkable. Mild bilateral hip osteoarthrosis. IMPRESSION: No fracture or dislocation. Report Dictated on Electronically Signed By: Yogesh Gonzalez MD Electronically Signed Date/Time: 01/09/2025 9:32 PM EDT [facility] Radiology Study observation (narrative) [facility] ED Provider Noteon ED Provider Note EMERGENCY DEPARTMENT ENCOUNTER Pt Name: Melanie Carey Birthdate 1965 Date of evaluation: 01/08/2025 ED Provider: Ray Espitia MD CHIEF COMPLAINT Chief Complaint Patient presents with Fall multiple Altered Mental Status Patient not feeling like herself the last 3 days Gait Problem 3 days Nausea HISTORY OF PRESENT ILLNESS I wore appropriate PPE for the entirety of this encounter. HPI Melanie Carey is a 59 y.o. female who presents to the emergency department stating that she feels out of sorts. This has been occurring for the last 2 days. There has been no specific weakness. She is not currently having any chest pain or shortness of breath. She has a history of liver cirrhosis. She states that she has been referred to [facility] for this. She does not have an appointment yet. She states that it is not related to alcohol use. She also has a history of Crohn's disease. She is on labetalol. She states that she fell today. She did not strike her head. She denies neck pain. She states that she had a cardiac catheterization in 2018 that showed no blockage. Nursing Notes were reviewed. Limitations to history: None Outside historians: None REVIEW OF SYSTEMS Review of Systems Constitutional: Positive for activity change. Negative for chills and fever. HENT: Negative for ear pain and sore throat. Eyes: Negative for pain and visual disturbance. Respiratory: Negative for cough and shortness of breath. Cardiovascular: Negative for chest pain and palpitations. Gastrointestinal: Negative for abdominal pain and vomiting. Genitourinary: Negative for dysuria and hematuria. Musculoskeletal: Negative for arthralgias and back pain. Skin: Negative for color change and rash. Neurological: Positive for weakness. Negative for seizures and syncope. Psychiatric/Behavioral: Positive for confusion. All other systems reviewed and are negative. PAST MEDICAL HISTORY Medical History[1] SURGICAL HISTORY Surgical History[2] CURRENT MEDICATIONS Previous Medications ALBUTEROL 108 (90 BASE) MCG/ACT INHALER Inhale 1 puff every 6 hours as needed for wheezing or shortness of breath. BUPROPION XL (WELLBUTRIN XL) 300 MG 24 HR TABLET Take 1 tablet (300 mg) by mouth every morning. Do not crush, chew, or split. BUSPIRONE (BUSPAR) 10 MG TABLET Take 1 tablet (10 mg) by mouth 2 times daily. CONSTULOSE 10 GM/15ML SOLUTION TAKE 15 ML BY MOUTH ONCE DAILY CONTINUOUS GLUCOSE DYNAMOMETER TESTER ENGINE (FREESTYLE ADIEL 3 READER) DEVICE Check blood sugar 2-4 times daily. CONTINUOUS GLUCOSE SENSOR (FREESTYLE ADIEL 3 SENSOR) MISC every 14 (fourteen) days. CYANOCOBALAMIN (B-12 COMPLIANCE INJECTION) 1000 MCG/ML KIT Inject 1 ml (1000mcg) subcutaneous weekly x 4 then monthly ELIQUIS 2.5 MG TABLET Take 2.5 mg by mouth 2 times daily. GLIMEPIRIDE (AMARYL) 4 MG TABLET Take 1 tablet (4 mg) by mouth daily (with breakfast). LABETALOL (NORMODYNE) 100 MG TABLET Take 1 tablet (100 mg) by mouth 2 times daily. LANTUS SOLOSTAR 100 UNIT/ML PEN INJECT 14 UNITS SUBCUTANEOUSLY NIGHTLY METFORMIN (GLUCOPHAGE) 1000 MG TABLET Take 1 tablet (1,000 mg) by mouth 2 times daily (with meals). NYSTATIN (MYCOSTATIN) 454905 UNIT/GM POWDER Apply topically 2 times daily. ONDANSETRON (ZOFRAN) 4 MG TABLET Take 4 mg by mouth every 6 hours as needed for nausea or vomiting. PANTOPRAZOLE (PROTONIX) 40 MG EC TABLET Take 40 mg by mouth every morning (before breakfast). PEG 6455-OZL-QALQO-NACL-NASULF (PEG-3350/ELECTROLYTES) 236 G RECONSTITUTED SOLUTION DRINK 240 ML BY MOUTH EVERY 10 MINUTES, DIRECTED FOR SPLIT DOSE BOWEL PREP ROSUVASTATIN (CRESTOR) 5 MG TABLET Take 1 tablet (5 mg) by mouth daily. SPIRONOLACTONE (ALDACTONE) 12.5 MG SPLIT TABLET Take 12.5 mg by mouth daily. TIRZEPATIDE (MOUNJARO) 5 MG/0.5ML SOLUTION AUTO-INJECTOR Inject 5 mg under the skin 1 (one) time per week. TRAMADOL (ULTRAM) 50 MG TABLET TAKE 1 TABLET BY MOUTH TWICE DAILY NEEDED FOR 7 DAYS UNIFINE PENTIPS 31G X 8 MM MISC Use as directed with insulin pen ALLERGIES Cat dander, Lisinopril, Pollen extract, and Xifaxan [rifaximin] FAMILY HISTORY Family History[3] SOCIAL HISTORY Social History[4] SCREENINGS PHYSICAL EXAM ED Triage Vitals [01/08/25 2343] Temp Heart Rate Resp BP (!) 35.9 ?C (96.7 ?F) 102 20 119/84 SpO2 Temp Source Heart Rate Source Patient Position 96 % Temporal -- -- BP Location FiO2 (%) -- -- Physical Exam Vitals and nursing note reviewed. Constitutional: General: She is not in acute distress. Appearance: She is well-developed. She is obese. Comments: On examination the patient is a older middle-aged female found sitting in a chair. She is alert and oriented. She is afebrile. Her vital signs are within normal limits. She is in no acute distress. HENT: Head: Normocephalic and atraumatic. Eyes: Conjunctiva/sclera: Conjunctivae normal. Cardiovascular: Rate and Rhythm: Normal r (more content not included)... Normal [facility] Gastroenterology Visit Repor ton 01-02-2025 Gastroenterology Visit Report [facility]enter[facility] [address] [place] [address] OFFICE VISIT Date of Service: 01/02/25 MR#: [id number] Acct: [id number] Name: MELANIE CAREY Rep #: [id number] : 1965 Provider: Dr. Stanley tavarez MD Age/Sex: 59/F Location: [facility] [place] Status: Signed Intake Vital Signs 11/15/24 09:05 12/18/24 06:41 12/19/24 10:09 01/02/25 10:48 Height 5 ft 5 in 5 ft 5 in 5 ft 5 in 5 ft 5 in Weight: 267 lb BMI 44.4 BP 158/85 H Blood Pressure Location Rt brachial Position Sitting Pulse 79 Pulse Oximetry (%) 93 Oxygen Delivery Method room air Intake Visit Reasons: Cirrhosis Allergies cat dander Allergy (Severe, Verified 01/02/25 10:51) Swelling lisinopril Adverse Reaction (Intermediate, Verified 01/02/25 10:51) edema and difficulty breathing Medications ???Medication ???Instructions ???Recorded ???Confirmed ???Type albuterol sulfate 90 mcg/actuation 2 puff inhalation Q6H PRN PRN 01/02/25 History aerosol inhaler Shortness Of Breath labetalol 100 mg tablet 100 mg PO BID 07/29/20 01/02/25 Hi story metformin 1,000 mg tablet 1,000 mg PO BIDCM 07/29/20 5 History bupropion HCl 300 mg 24 hr tablet, 300 mg PO QAM 30 days #30 tabs 0 02/01/23 01/02/25 Rx extended release buspirone 10 mg tablet 10 mg PO BID 10/31/24 01/02/25 His tory glimepiride 4 mg tablet 4 mg PO QAM 10/31/24 01/02/25 Hist ory insulin glargine 100 unit/mL 16 unit subcut QHS 10/31/24 History subcutaneous solution (Lantus U-100 Insulin) lactulose 10 gram/15 mL oral 10 g (15 mL) PO QDAY 90 days 10/3101/02/25 Rx solution #1,350 mL mecobalamin (vitamin B12) 10,000 10,000 mcg IM QMONTH 10/31/2412/11 History mcg solution for injection rosuvastatin 5 mg tablet 5 mg PO QDAY 10/31/24 01/02/25 His tory tirzepatide 5 mg/0.5 mL 5 mg subcut QWEEK 10/31/24 5 History subcutaneous pen injector (Ibrahima) apixaban 2.5 mg tablet (Eliquis) 2.5 mg PO BID #60 tabs 11/29/24 Rx peg 3350-electrolytes 236 240 ml PO Q10M #4,000 mL 12/11/24 01/02/25 Rx gram-22.74 gram-6.74 gram-5.86 gram solution (Golytely) ondansetron HCl 4 mg tablet 4 mg PO Q6H PRN nausea and 5 01/02/25 Rx vomiting #20 tabs pantoprazole 40 mg tablet,delayed 40 mg PO BID #60 tabs 12/14/24 Rx release rifaximin 550 mg tablet (Xifaxan) 550 mg PO BID 30 days #60 tabs 01/02/25 Rx spironolactone 25 mg tablet 12.5 mg (1/2 x 25 mg) PO DAILY 1 0 12/19/24 01/02/25 Rx month #30 tabs PFSH Medical History Arthritis Anemia High cholesterol History of Crohn's [...] Diabetes Asthma Osteoporosis Respiratory disease Social History ... [facility] 01-01-2025 [address] [facility] 36on 12-31-2024 36 Patient is calling b ecause she has had 2 nosebleeds recently. She is prescribed Eliquis 2.5 mg twice daily by Dr. Castro, her GI physician in [place]. I advised her to call him for instructions. Reason for Disposition Health information question, no triage required and triager able to answer question Answer Assessment - Initial Assessment Questions 1. REASON FOR CALL: What is the main reason for your call? or How can I best help you? nosebleed 2. SYMPTOMS : Do you have any symptoms? Not now 3. OTHER QUESTIONS: Do you have any other questions? no Protocols used: Information Only Call - No [id number] St. [facility] 36on 12-25-2024 36 Reviewed chart. Refi ll appropriate. RX sent. [facility] 36 Prescription Request : Last medication check: 10/24/2024 Last physical exam: none Next scheduled appointment: 01/09/2025 Last date of refill on this medication: 10/24/2024 *Has never had a physical, changed appointment on 01/09 to a Physical.* [facility] CT LUMBAR SPINE WO IV CONTRA STon 12-23-2024 CT LUMBAR SPINE WO IV CONTRAST Patient Name: MELANIE CAREY : 1965 [facility]#: [id number] Exam Date/Time: 12/23/2024 12:08 Procedure: CT LUMBAR SPINE WO IV CONTRAST Ordering Provider: JETER MADISON Reason For Exam: s/p fall out of bed, hit back on corner of bedframe, TTP in midline, slight bruisng across lower back EXAMINATION: CT of the lumbar spine without intravenous contrast. EXAM DATE AND TIME: 12/23/2024 12:08 PM EDT INDICATION: s/p fall out of bed, hit back on corner of bedframe, TTP in midline, slight bruisng across lower back ADDITIONAL INFORMATION: 59-year-old female status post fall with tenderness to palpation and bruising across low back presents for evaluation COMPARISON: None LIMITATIONS: Evaluation of the vasculature as well as the solid and hollow viscera is limited due to the lack of intravenous and oral contrast. TECHNIQUE: Thin isotropic axial images were obtained through the lumbar region without intravenous contrast. Images were reformatted in coronal and sagittal projections using the raw CT data and were interpreted in conjunction with the axial images to render the findings listed below. Dose reduction was employed with automated exposure control. FINDINGS: Alignment: Normal. Vertebrae: No evidence of acute fracture. No aggressive osseous lesions. Mild degenerative endplate spurring is present near the thoracolumbar junction and involving the lumbar spine. Canal and foramina: No evidence of significant spinal canal or neural foraminal stenosis. Soft tissues: Soft tissue swelling is present in the low back region, dorsal to the paraspinal musculature. Nodular hepatic margin is suggestive of cirrhotic liver morphology. Numerous gastroesophageal varices are also seen. A couple of mildly prominent lymph nodes are present near the gastroesophageal junction and anterior to the IVC, for example measuring 1.3 cm on series 4, image 118. IMPRESSION: 1. No acute fracture or traumatic malalignment of the lower thoracic or lumbar spine. Mild spondylosis. 2. Soft tissue stranding in the low back region which could relate to the provided history of low back contusions. 3. Findings suggestive of hepatic cirrhosis and the stigmata of portal hypertension. 4. Nonspecific abdominal lymphadenopathy as discussed. Report Dictated on Electronically Signed By: Roberto Gonzáles MD Electronically Signed Date/Time: 12/23/2024 12:55 PM EDT Low back pain. Pt fell off the bed on Wednesday when she was trying to adjust herself, took tylenol yesterday for pain, reports she has a hx of liver disease so she is limited on what she can take for pain. Is on blood thinners, no LOC, did not hit head. Normal [facility] CT Lumbar spine WO contrasto n 12-23-2024 1. No acute fracture or traumatic malalignment of the lower thoracic or lumbar spine. Mild spondylosis. 2. Soft tissue stranding in the low back region which could relate to the provided history of low back contusions. 3. Findings suggestive of hepatic cirrhosis and the stigmata of portal hypertension. 4. Nonspecific abdominal lymphadenopathy as discussed. Report Dictated on Electronically Signed By: Roberto Gonzáles MD Electronically Signed Date/Time: 12/23/2024 12:55 PM EDT [facility] Patient Name: MELANIE CAREY : 1965 Exam Date/Time: 12/23/2024 12:08 Procedure: CT LUMBAR SPINE WO IV CONTRAST Ordering Provider: JETER MADISON Reason For Exam: s/p fall out of bed, hit back on corner of bedframe, TTP in midline, slight bruisng across lower back EXAMINATION: CT of the lumbar spine without intravenous contrast. EXAM DATE & TIME: 12/23/2024 12:08 PM EDT INDICATION: s/p fall out of bed, hit back on corner of bedframe, TTP in midline, slight bruisng across lower back ADDITIONAL INFORMATION: 59-year-old female status post fall with tenderness to palpation and bruising across low back presents for evaluation COMPARISON: None LIMITATIONS: Evaluation of the vasculature as well as the solid and hollow viscera is limited due to the lack of intravenous and oral contrast. TECHNIQUE: Thin isotropic axial images were obtained through the lumbar region without intravenous contrast. Images were reformatted in coronal and sagittal projections using the raw CT data and were interpreted in conjunction with the axial images to render the findings listed below. Dose reduction was employed with automated exposure control. FINDINGS: Alignment: Normal. Vertebrae: No evidence of acute fracture. No aggressive osseous lesions. Mild degenerative endplate spurring is present near the thoracolumbar junction and involving the lumbar spine. Canal and foramina: No evidence of significant spinal canal or neural foraminal stenosis. Soft tissues: Soft tissue swelling is present in the low back region, dorsal to the paraspinal musculature. Nodular hepatic margin is suggestive of cirrhotic liver morphology. Numerous gastroesophageal varices are also seen. A couple of mildly prominent lymph nodes are present near the gastroesophageal junction and anterior to the IVC, for example measuring 1.3 cm on series 4, image 118. [facility] Roberto Gonzáles MD - 12/23/2024 Patient Name: MELANIE CAREY : 1965 Exam Date/Time: 12/23/2024 12:08 Procedure: CT LUMBAR SPINE WO IV CONTRAST Ordering Provider: JETER MADISON Reason For Exam: s/p fall out of bed, hit back on corner of bedframe, TTP in midline, slight bruisng across lower back EXAMINATION: CT of the lumbar spine without intravenous contrast. EXAM DATE & TIME: 12/23/2024 12:08 PM EDT INDICATION: s/p fall out of bed, hit back on corner of bedframe, TTP in midline, slight bruisng across lower back ADDITIONAL INFORMATION: 59-year-old female status post fall with tenderness to palpation and bruising across low back presents for evaluation COMPARISON: None LIMITATIONS: Evaluation of the vasculature as well as the solid and hollow viscera is limited due to the lack of intravenous and oral contrast. TECHNIQUE: Thin isotropic axial images were obtained through the lumbar region without intravenous contrast. Images were reformatted in coronal and sagittal projections using the raw CT data and were interpreted in conjunction with the axial images to render the findings listed below. Dose reduction was employed with automated exposure control. FINDINGS: Alignment: Normal. Vertebrae: No evidence of acute fracture. No aggressive osseous lesions. Mild degenerative endplate spurring is present near the thoracolumbar junction and involving the lumbar spine. Canal and foramina: No evidence of significant spinal canal or neural foraminal stenosis. Soft tissues: Soft tissue swelling is present in the low back region, dorsal to the paraspinal musculature. Nodular hepatic margin is suggestive of cirrhotic liver morphology. Numerous gastroesophageal varices are also seen. A couple of mildly prominent lymph nodes are present near the gastroesophageal junction and anterior to the IVC, for example measuring 1.3 cm on series 4, image 118. IMPRESSION: 1. No acute fracture or traumatic malalignment of the lower thoracic or lumbar spine. Mild spondylosis. 2. Soft tissue stranding in the low back region which could relate to the provided history of low back contusions. 3. Findings suggestive of hepatic cirrhosis and the stigmata of portal hypertension. 4. Nonspecific abdominal lymphadenopathy as discussed. Report Dictated on Electronically Signed By: Roberto Gonzáles MD Electronically Signed Date/Time: 12/23/2024 12:55 PM EDT [facility] Study observation (narrative) [facility] CT Lumbar spine WO contrastO rdered By: Roberto Gonzáles on 12-23-2024 [facility] Work Phone: ED Provider Noteon ED Provider Note EMERGENCY DEPARTMENT ENCOUNTER Pt Name: Melanie Carey Birthdate 1965 Date of evaluation: 12/23/2024 ED Provider: Annalisa Jeter PA-C CHIEF COMPLAINT Chief Complaint Patient presents with Back Pain Pt fell off the bed on Wednesday when she was trying to adjust herself, took tylenol yesterday for pain, reports she has a hx of liver disease so she is limited on what she can take for pain. Is on blood thinners, no LOC, did not hit head. HISTORY OF PRESENT ILLNESS (Location/Symptom, Timing/Onset, Context/Setting, Quality, Duration, Modifying Factors, Severity) Note limiting factors. I wore appropriate PPE for the entirety of this encounter. HPI Melanie Carey is a 59 y.o. female who presents to the emergency department with her for evaluation after mechanical fall out of bed. Patient states that on Wednesday she was trying to adjust herself in her bed, when she rolled out and landed on her butt on the ground. States that the lower portion of her back bumped against the wooden edge of her bed frame. She did not hit her head or lose consciousness. She does not take any blood thinners daily. States that over the last couple of days she has noticed what appears to be a bruise developing across her lower back. Has been taking Tylenol without much symptom improvement. States has a history of liver disease so she is limited as what she can take [id number] for pain. Has not had any numbness, tingling, or weakness into the extremities. No loss of bowel or bladder. No fecal or urinary retention. No saddle anesthesias. No history of surgery hardware placement within the spine. No history of IV drug use. Has been ambulatory without difficulty, but does report pain. Nursing Notes were reviewed. Limitations to history: None Outside historians: Significant other REVIEW OF SYSTEMS Review of Systems 14 systems reviewed, positives and pertinent negatives as per HPI. All other systems were reviewed and are negative. PAST MEDICAL HISTORY Medical History[1] SURGICAL HISTORY Surgical History[2] CURRENT MEDICATIONS Discharge Medication List as of 12/23/2024 1:37 PM CONTINUE these medications which have NOT CHANGED Details albuterol 108 (90 Base) MCG/ACT inhaler Inhale 1 puff every 6 hours as needed for wheezing or shortness of breath., Starting Rianna 08/26/2023, Normal buPROPion XL (Wellbutrin XL) 300 MG 24 hr tablet Take 1 tablet (300 mg) by mouth every morning. Do not crush, chew, or split., Starting Wed10/31/2024, Normal busPIRone (Buspar) 10 MG tablet Take 1 tablet (10 mg) by mouth 2 times daily., Starting Wed10/31/2024, Normal Constulose 10 GM/15ML solution TAKE 15 ML BY MOUTH ONCE DAILY, Historical Med Continuous Glucose Furnace Door Tender (FreeStyle Adiel 3 [place]) device Check blood sugar 2-4 times daily., Normal Continuous Glucose Sensor (FreeStyle Adiel 3 Sensor) misc every 14 (fourteen) days., Starting 12/11/2024, Normal Cyanocobalamin (B-12 Compliance Injection) 1000 MCG/ML kit Inject 1 ml (1000mcg) subcutaneous weekly x 4 then monthly, Normal glimepiride (Amaryl) 4 MG tablet Take 1 tablet (4 mg) by mouth daily (with breakfast)., Starting Wed10/31/2024, Normal HYDROcodone-acetaminophen ([place]) 5-325 MG tablet TAKE 1 TABLET BY MOUTH EVERY 6 HOURS NEEDED FOR PAIN FOR 3 DAYS, Historical Med insulin glargine (Lantus SoloStar) 100 UNIT/ML pen Inject 16 Units under the skin Nightly., Starting Wed10/24/2024, No Print labetalol (Normodyne) 100 MG tablet Take 1 tablet (100 mg) by mouth 2 times daily., Starting Wed10/31/2024, Normal metFORMIN (Glucophage) 1000 MG tablet Take 1 tablet (1,000 mg) by mouth 2 times daily (with meals)., Starting Wed10/31/2024, Normal nystatin (Mycostatin) 367778 UNIT/GM powder Apply topically 2 times daily., Starting 02/26/2024, Until 02/25/2025, Normal rosuvastatin (Crestor) 5 MG tablet Take 1 tablet (5 mg) by mouth daily., Starting Wed09/01/2024, Until Wed02/28/2025, Normal Tirzepatide (Mounjaro) 5 MG/0.5ML solution auto-injector Inject 5 mg under the skin 1 (one) time per week., Starting 11/20/2024, Normal traMADol (Ultram) 50 MG tablet TAKE 1 TABLET BY MOUTH TWICE DAILY NEEDED FOR 7 DAYS, Historical Med Unifine Pentips 31G X 8 MM misc Use as directed with insulin pen, Normal ALLERGIES Cat dander, Lisinopril, and Pollen extract FAMILY HISTORY Family History[3] SOCIAL HISTORY Social History[4] SCREENINGS PHYSICAL EXAM ED Triage Vitals [12/23/24 1147] Temp Heart Rate Resp BP 36.6 ?C (97.8 ?F) 78 18 139/88 SpO2 Temp Source Heart Rate Source Patient Position 96 % Temporal Monitor -- BP Location FiO2 (%) -- -- Physical Exam Vitals and nursing note reviewed. Constitutional: General: She is not in acute distress. Appearance: She is well-developed. HENT: Head: Normocephalic and atraumatic. Comments: No step-offs or deformities. No mastoid bruising. Bite symm (more content not included)... Normal [facility] 36on 12-22-2024 36 Called patient to [facility] her scheduled. Was not able to get a hold of patient but had a cancellation and put them in it. Advised to call back if they can not make it. [facility] Progress Noteon 12-21-2024 Progress Note Chart reviewed of ED follow up Seen in [facility] ED on 12/19/24 Reason: Skin tag S/P skin biopsy Discharge instructions: Follow up with PCP in 1 week for suture removal (3) I am calling from Gio Ricketts MD's office, following up after your recent ED visit. Please call the office so we can schedule a follow up appointment. If patient calls back, please assist with scheduling a ED follow up appointment. [facility] 36on 12-19-2024 36 Okay, thank you [facility] 36 S: Patient spoke johny [facility]EV[facility] nurse regarding Skin tag issue B: Onset of symptoms/concern a year A: Pt endorses skin tag under right breast, has been there for over a year. Skin take drainage, redness and sore after EGD/Colonoscopy yesterday. R: Pt advised to seek further assistance at , declined POD scheduling at this time. Home Skin Lesion - Moles or growths. Patient understands care advice. No further needs at this time. Patient instructed to call back with new or worsening symptoms. Reason for Disposition [1] Looks infected (e.g., spreading redness, pus) AND [2] no fever Protocols used: Skin Lesion - Moles [id number] Nursing Noteon 12-19-2024 ED Nursing Note Pt presents to er fr om home for skin tag under her left breast.pt states there is skin missing, its pre[place], red and seeping. Normal [facility] ED Nursing Note Pt presents to er fr om home for skin tag under her left breast.pt states there is skin missing, its preston, red and seeping. [facility] ED Provider Noteon ED Provider Note EMERGENCY DEPARTMENT ENCOUNTER Pt Name: Raiza Carey Birthdate 1965 Date of evaluation: 12/19/2024 ED Provider: Amber Holley DO CHIEF COMPLAINT Chief Complaint Patient presents with Wound Care Pt presents to er from home for skin tag under her left breast.pt states there is skin missing, its preston, red and seeping. HISTORY OF PRESENT ILLNESS (Location/Symptom, Timing/Onset, Context/Setting, Quality, Duration, Modifying Factors, Severity) Note limiting factors. I wore appropriate PPE for the entirety of this encounter. HPI 59-year-old female presents emergency room today with 1 day of irritated skin tag. Nursing Notes were reviewed. Limitations to history: None Outside historians: None REVIEW OF SYSTEMS Review of Systems Skin: Positive for wound. Pertinent positives and negatives as per HPI. PAST MEDICAL HISTORY Medical History[1] SURGICAL HISTORY Surgical History[2] CURRENT MEDICATIONS Discharge Medication List as of 12/19/2024 7:30 PM CONTINUE these medications which have NOT CHANGED Details albuterol 108 (90 Base) MCG/ACT inhaler Inhale 1 puff every 6 hours as needed for wheezing or shortness of breath., Starting Wed08/26/2023, Normal buPROPion XL (Wellbutrin XL) 300 MG 24 hr tablet Take 1 tablet (300 mg) by mouth every morning. Do not crush, chew, or split., Starting Wed10/31/2024, Normal busPIRone (Buspar) 10 MG tablet Take 1 tablet (10 mg) by mouth 2 times daily., Starting Wed10/31/2024, Normal Constulose 10 GM/15ML solution TAKE 15 ML BY MOUTH ONCE DAILY, Historical Med Continuous Glucose Furnace Door Tender (FreeStyle Adiel 3 [place]) device Check blood sugar 2-4 times daily., Normal Continuous Glucose Sensor (FreeStyle Adiel 3 Sensor) misc every 14 (fourteen) days., Starting 12/11/2024, Normal Cyanocobalamin (B-12 Compliance Injection) 1000 MCG/ML kit Inject 1 ml (1000mcg) subcutaneous weekly x 4 then monthly, Normal glimepiride (Amaryl) 4 MG tablet Take 1 tablet (4 mg) by mouth daily (with breakfast)., Starting Wed10/31/2024, Normal HYDROcodone-acetaminophen ([place]) 5-325 MG tablet TAKE 1 TABLET BY MOUTH EVERY 6 HOURS NEEDED FOR PAIN FOR 3 DAYS, Historical Med insulin glargine (Lantus SoloStar) 100 UNIT/ML pen Inject 16 Units under the skin Nightly., Starting Wed10/24/2024, No Print labetalol (Normodyne) 100 MG tablet Take 1 tablet (100 mg) by mouth 2 times daily., Starting Wed10/31/2024, Normal metFORMIN (Glucophage) 1000 MG tablet Take 1 tablet (1,000 mg) by mouth 2 times daily (with meals)., Starting Wed10/31/2024, Normal nystatin (Mycostatin) 730907 UNIT/GM powder Apply topically 2 times daily., Starting 02/26/2024, Until 02/25/2025, Normal rosuvastatin (Crestor) 5 MG tablet Take 1 tablet (5 mg) by mouth daily., Starting Wed09/01/2024, Until Wed02/28/2025, Normal Tirzepatide (Mounjaro) 5 MG/0.5ML solution auto-injector Inject 5 mg under the skin 1 (one) time per week., Starting Wed11/20/2024, Normal traMADol (Ultram) 50 MG tablet TAKE 1 TABLET BY MOUTH TWICE DAILY NEEDED FOR 7 DAYS, Historical Med Unifine Pentips 31G X 8 MM misc Use as directed with insulin pen, Normal ALLERGIES Cat dander, Lisinopril, and Pollen extract FAMILY HISTORY Family History[3] SOCIAL HISTORY Social History[4] SCREENINGS PHYSICAL EXAM ED Triage Vitals [12/19/24 1851] Temp Heart Rate Resp BP 36.7 ?C (98.1 ?F) 82 16 (!) 163/94 SpO2 Temp Source Heart Rate Source Patient Position 96 % Temporal Monitor Sitting BP Location FiO2 (%) Right arm -- Physical Exam Vitals and nursing note reviewed. Constitutional: Appearance: Normal appearance. HENT: Head: Normocephalic and atraumatic. Cardiovascular: Rate and Rhythm: Normal rate. Pulmonary: Effort: Pulmonary effort is normal. Musculoskeletal: General: Normal range of motion. Skin: General: Skin is warm and dry. Findings: Lesion present. Comments: Large skin tag approximately 2 to 3 cm in size on the right abdominal wall, no active bleeding or surrounding redness. Neurological: General: No focal deficit present. Mental Status: She is alert. Mental status is at baseline. Psychiatric: Mood and Affect: Mood normal. Behavior: Behavior normal. DIAGNOSTIC RESULTS Procedures/EKG: EKG was reviewed by myself. Physician EKG interpretation can be found in [facility] RADIOLOGY (Per Emergency Physician): Interpretation per the Radiologist below, if available at the time of this note: No orders to display ED BEDSIDE ULTRASOUND: Performed by ED Physician - none LABS: Labs Reviewed TISSUE EXAM All other labs were within normal range or not returned as of this dictation. EMERGENCY DEPARTMENT COURSE and DIFFERENTIAL DIAGNOSIS/MDM: Vitals: Vitals: 12/19/24 1851 12/19/24 1851 BP: (!) 163/94 BP Location: Right arm Patient Position: Sitting Pulse: 82 Resp: 16 Temp: 36.7 ?C (98.1 ?F) TempSrc: Temporal SpO2: 96% Weight: 123 (more content not included)... Normal [facility] Gastroenterology Visit Repor ton 12-19-2024 Gastroenterology Visit Report [facility] [address] [place] [address] OFFICE VISIT Date of Service: 12/19/24 MR#: [id number] Acct: [id number] Name: MELANIE CAREY Rep #: [id number] : 1965 Provider: Dr. Stanley tavarez MD Age/Sex: 59/F Location: [facility] Status: Signed Intake Vital Signs 12/18/24 06:41 12/18/24 13:47 12/19/24 10:09 Height 5 ft 5 in 5 ft 5 in 5 ft 5 in Weight: 268 lb BMI 44.6 BP 153/89 H Blood Pressure Location Rt brachial Position Sitting Pulse 72 Pulse Oximetry (%) 97 Oxygen Delivery Method room air Intake Visit Reasons: CIRRHOSIS Chief Complaint: Portal vein thrombosis Allergies cat dander Allergy (Severe, Verified 12/19/24 10:07) Swelling lisinopril Adverse Reaction (Intermediate, Verified 12/19/24 10:07) edema and difficulty breathing Medications ???Medication ???Instructions ???Recorded ???Confirmed ???Type albuterol sulfate 90 mcg/actuation 2 puff inhalation Q6H PRN PRN 12/19/24 History aerosol inhaler Shortness Of Breath labetalol 100 mg tablet 100 mg PO BID 07/29/20 12/19/24 Hi story metformin 1,000 mg tablet 1,000 mg PO BIDCM 07/29/20 5 History bupropion HCl 300 mg 24 hr tablet, 300 mg PO QAM 30 days #30 tabs 0 02/01/23 12/19/24 Rx extended release buspirone 10 mg tablet 10 mg PO BID 10/31/24 12/19/24 His tory glimepiride 4 mg tablet 4 mg PO QAM 10/31/24 12/19/24 Hist ory insulin glargine 100 unit/mL 16 unit subcut QHS 10/31/24 History subcutaneous solution (Lantus U-100 Insulin) lactulose 10 gram/15 mL oral 10 g (15 mL) PO QDAY 90 days 10/3112/19/24 Rx solution #1,350 mL mecobalamin (vitamin B12) 10,000 10,000 mcg IM QMONTH 10/31/2412/10 History mcg solution for injection rosuvastatin 5 mg tablet 5 mg PO QDAY 10/31/24 12/19/24 His tory tirzepatide 5 mg/0.5 mL 5 mg subcut QWEEK 10/31/24 5 History subcutaneous pen injector (Mounjaro) apixaban 2.5 mg tablet (Eliquis) 2.5 mg PO BID #60 tabs 11/29/24 Rx peg 3350-electrolytes 236 240 ml PO Q10M #4,000 mL 12/11/24 12/19/24 Rx gram-22.74 gram-6.74 gram-5.86 gram solution (Golytely) ondansetron HCl 4 mg tablet 4 mg PO Q6H PRN nausea and 5 12/19/24 Rx vomiting #20 tabs pantoprazole 40 mg tablet,delayed 40 mg PO BID #60 tabs 12/14/24 Rx release rifaximin 550 mg tablet (Xifaxan) 550 mg PO BID 30 days #60 tabs 12/19/24 Rx spironolactone 25 mg tablet 12.5 mg (1/2 x 25 mg) PO DAILY 1 0 12/19/24 12/19/24 Rx month #30 tabs PFSH Medical History Arthritis Anemia High cholesterol History of Crohn's [...] Diabetes Asthma Osteoporosis Respiratory disease Social History (Reviewed 12/19/24 @ 10:3 (more content not included)... Normal [facility] No Panel Informationon 12-19 Amber Holley DO 12/19/2024 8:01 PM Skin Biopsy, Bedside Performed by: Amber Holley DO Authorized by: Amber Holley DO Consent: The indications, risks, benefits, alternatives to the procedure were explained to the patient/surrogate decision maker and their questions answered. Consent was obtained to proceed with the procedure. Timeout: Completed immediately prior to the start of the procedure which included verification of the correct patient, correct site and agreement on the procedure to be done. Indications: Indications: pain Anesthetic: Local anesthetic used: lidocaine with epinephrine Preparation: Patient was prepped and draped in usual sterile fashion Skin prepped: skin prepped with alcohol Procedure Details: Procedure type: skin tag Number of skin tags removed: 1-15 Location: abdomen Post-procedure: Post-procedure: dressing applied Specimen(s) sent to lab: yes Estimated blood loss: < 5 mL Specify Complication(s): no apparent complications Assistants & Supervision: I personally performed the procedure documented as signed by this procedure note Cad Librarian(s): N/A No supervision required [facility] Bedside Glucoseon 12-18-2024 FINGERSTICK GLU 136 mg/dL High 74-106 [facility] Comment on above: Result Comment: ANUSHKA CHAVEZ OF PATIENT CARE PER NURSING PROTOCOL Performed By: #### L [id number] #### [facility] [address] [place], [address] Colonoscopy Reporton 025 Colonoscopy Report [facility] Medical Records Department [address] [place] [address] Colonoscopy Report MR#: [id number] Acct: [id number] Name: MELANIE CAREY Rep #: [id number] : 1965 59 From: Hugo Pierre DO PCP: Dr. Gio Ricketts MD Status:[facility] Patient Name: Melanie Carey Procedure Date: 12/18/2024 7:26 AM Date of : 1965 Age: 59 Procedure: Colonoscopy Indications: Chronic diarrhea, Iron deficiency anemia, Crohn's disease Providers: Hugo Pierre DO Referring MD: Gio Ricketts Medicines: Monitored Anesthesia Care Patient Profile: This is a 59 year old female. Refer to note in patient chart for documentation of history and physical. Patient has symptoms of chronic epigastric abdominal pain, chronic dysphagia and chronic dyspepsia. Last Colonoscopy: more than 3 years ago. Complications: No immediate complications. Procedure: Pre-Anesthesia Assessment: - Prior to the procedure, a History and Physical was performed, and patient medications and allergies were reviewed. The patient is competent. The risks and benefits of the procedure and the sedation options and risks were discussed with the patient. All questions were answered and informed consent was obtained. Patient identification and proposed procedure were verified by the physician in the pre-procedure area. Mental Status Examination: alert and oriented. Airway Examination: normal oropharyngeal airway and neck mobility. Respiratory Examination: clear to auscultation. CV Examination: normal. Prophylactic Antibiotics: The patient does not require prophylactic antibiotics. Prior Anticoagulants: The patient has taken no anticoagulant or antiplatelet agents except for NSAID medication. ASA Grade Assessment: II - A patient with mild systemic disease. After reviewing the risks and benefits, the patient was deemed in satisfactory condition to undergo the procedure. The anesthesia plan was to use monitored anesthesia care (MAC). Immediately prior to administration of medications, the patient was re-assessed for adequacy to receive sedatives. The heart rate, respiratory rate, oxygen saturations, blood pressure, adequacy of pulmonary ventilation, and response to care were monitored throughout the procedure. The physical status of the patient was re-assessed after the procedure. After I obtained informed consent, the scope was passed under direct vision. Throughout the procedure, the patient's blood pressure, pulse, and oxygen saturations were monitored continuously. The colonoscope was introduced through the anus and advanced to the cecum, identified by appendiceal orifice and ileocecal valve. The colonoscopy was performed without difficulty. The patient tolerated the procedure well. The quality of the bowel preparation was fair. Scope In: 7:27:50 AM Scope Withdrawal Time 0 hours 9 minutes 10 seconds Scope Out: 7:40:40 AM Total Procedure Duration Time 0 hours 12 minutes 50 seconds Findings: An area of mildly congested mucosa was found in the entire colon. Biopsies were taken with a cold forceps for histology. Verification of patient identification for the specimen was done. Estimated blood loss was minimal. Multiple small and large-mouthed diverticula were found in the recto-sigmoid colon, sigmoid colon and descending colon. Stool was found in the cecum and at the appendiceal orifice. Hemorrhoids were found on perianal exam. Impression: - Preparation of the colon was fair. - Congested mucosa in the entire examined colon. Biopsied. - Diverticulosis in the recto-sigmoid colon, in the sigmoid colon and in the descending colon. - Stool in the cecum and at the appendiceal orifice. Recommendation: - Discharge patient to home. - Resume previous diet. - Continue present medications. - Await pathology results. - Repeat colonoscopy in 5 years for surveillance. Procedure Code(s): --- Professional --- 20795, Colonoscopy, flexible; with biopsy, single or multiple CPT copyright 2021 [employer]. All rights reserved. The codes documented in this report are preliminary and upon surgical coder review may be revised to meet current compliance requirements. Hugo Pierre DO 12/18/2024 8:33:46 AM This report has been signed electronically. Number of Addenda: 0 Note Initiated On: 12/18/2024 7:26 AM 12/18/24 0834 Date Hugo Pierre DO Cosigner Signature: Date (if indicated) CC: Dr. Gio Ricketts MD; Hugo Pierre DO Date Dictated: 12/18/24725 Date Transcribed: Hot Room Attendant: GABRIELLE Signed Normal [facility] EGD Reporton 12-18-2024 EGD Report [facility] Medical Records Department [address] [place] [address] EGD Report MR#: [id number] Acct: [id number] Name: MELANIE CAREY Rep #: [id number] : 1965 59 From: Hugo Pierre DO PCP: Dr. Gio Ricketts MD Status:[facility] Patient Name: Melanie Carey Procedure Date: 12/18/2024 7:14 AM Date of : 1965 Age: 59 Procedure: Upper GI endoscopy Indications: Epigastric abdominal pain, Iron deficiency anemia, Cirrhosis with suspected esophageal varices Providers: Hugo Pierre DO Referring MD: Gio Ricketts Medicines: Monitored Anesthesia Care Patient Profile: This is a 59 year old female. Refer to note in patient chart for documentation of history and physical. Patient has symptoms of chronic epigastric abdominal pain, chronic dysphagia and chronic dyspepsia. Complications: No immediate complications. Procedure: Pre-Anesthesia Assessment: - Prior to the procedure, a History and Physical was performed, and patient medications and allergies were reviewed. The patient is competent. The risks and benefits of the procedure and the sedation options and risks were discussed with the patient. All questions were answered and informed consent was obtained. Patient identification and proposed procedure were verified by the physician in the pre-procedure area. Mental Status Examination: alert and oriented. Airway Examination: normal oropharyngeal airway and neck mobility. Respiratory Examination: clear to auscultation. CV Examination: normal. Prophylactic Antibiotics: The patient does not require prophylactic antibiotics. Prior Anticoagulants: The patient has taken no anticoagulant or antiplatelet agents except for NSAID medication. ASA Grade Assessment: II - A patient with mild systemic disease. After reviewing the risks and benefits, the patient was deemed in satisfactory condition to undergo the procedure. The anesthesia plan was to use monitored anesthesia care (MAC). Immediately prior to administration of medications, the patient was re-assessed for adequacy to receive sedatives. The heart rate, respiratory rate, oxygen saturations, blood pressure, adequacy of pulmonary ventilation, and response to care were monitored throughout the procedure. The physical status of the patient was re-assessed after the procedure. After obtaining informed consent, the endoscope was passed under direct vision. Throughout the procedure, the patient's blood pressure, pulse, and oxygen saturations were monitored continuously. The colonoscope was introduced through the mouth, and advanced to the fourth part of the duodenum. Small bowel enteroscopy was deemed necessary. The upper GI endoscopy was accomplished without difficulty. The patient tolerated the procedure well. Scope In: 7:23:18 AM Scope Out: 7:25:55 AM Total Procedure Duration Time 0 hours 2 minutes 37 seconds Findings: Grade II varices were found in the middle third of the esophagus and in the lower third of the esophagus. Suspect gastroparesis due to patient symptoms and retained gastric contents. Moderate portal hypertensive gastropathy was found in the entire examined stomach. Biopsies were taken with a cold forceps for histology. Verification of patient identification for the specimen was done. Estimated blood loss was minimal. No gross lesions were noted in the third portion of the duodenum. Impression: - Grade II esophageal varices. - Gastroparesis, secondary to diabetes mellitus type II. - Portal hypertensive gastropathy. Biopsied. - No gross lesions in the third portion of the duodenum. Recommendation: - Discharge patient to home. - Resume previous diet. - Continue present medications. - Await pathology results. - Repeat upper endoscopy in 3 months for endoscopic band ligation. Procedure Code(s): --- Professional --- 22889, Small intestinal endoscopy, enteroscopy beyond second portion of duodenum, not including ileum; with biopsy, single or multiple CPT copyright 2021 [employer]. All rights reserved. The codes documented in this report are preliminary and upon surgical coder review may be revised to meet current compliance requirements. Hugo Pierre DO 12/18/2024 8:30:24 AM This report has been signed electronically. Number of Addenda: 0 Note Initiated On: 12/18/2024 7:14 AM 12/18/2430 Date Hugo Pierre DO Cosigner Signature: Date (if indicated) CC: Dr. Gio Ricketts MD; Hugo Pierre DO Date Dictated: 12/18/24713 Date Transcribed: Hot Room Attendant: GABRIELLE Signed [facility] Immunohistochemical Stainson 12-18-2024 Immunohistochemical Stains Patient Age/Sex Location Account Attending Physician MELANIE CAREY 59/F EN [id number] Hugo Pierre DO Specimen: [id number] Received: 12/18/24 Status: WANG Mejia Num: [id number] Spec Type: COLON BX Subm Dr: Hugo Pierre DO HEADER OPERATION: Colonoscopy with biopsy, EGD with biopsy PRE-OP DIAGNOSIS: Crohn's disease, cirrhosis, abdominal pain, right sided abdominal pain TISSUE SUBMITTED: A- Gastric body biopsy, B- Duodenum biopsy, C- Random colon biopsy MICROSCOPIC DIAGNOSIS A. Stomach, gastric body, biopsies: * Focal superficial erosion with slight chronic inflammation * An immunohistochemical stain for Helicobacter pylori is negative B. Small intestine, duodenum: * Benign without active inflammation or architectural distortion C. Large intestine, random: * Benign colonic mucosa without active inflammation MICROSCOPIC DESCRIPTION Slides are reviewed. All matched controls reacted appropriately. These tests were developed and their performance characteristics determined by [facility]. They may not have been cleared or approved by the U.S. Food and Drug Administration. The FDA has determined that such clearance or approval is not necessary. The above immunohistochemical/dualIS H markers are reviewed by the Pathologist. GROSS DESCRIPTION A. Received in fixative is one container labeled with the patient's name and designated Gastric body biopsy. The specimen consists of two irregular fragments of light hernandez soft tissue that in aggregate measure 0.7 x 0.5 x 0.2 cm. The specimen is totally submitted in one cassette. B. Received in fixative is one container labeled with the patient's name and designated Duodenum biopsy. The specimen consists of multiple irregular fragments of light hernandez soft tissue that in aggregate measure 0.7 x 0.4 x 0.2 cm. The specimen is totally submitted in one cassette. C. Received in fixative is one container labeled with the patient's name and designated Random colon biopsy. The specimen consists of multiple irregular fragments of light hernandez soft tissue that in aggregate measure 1.5 x 0.7 x 0.2 cm. The specimen is totally submitted in one cassette. / 12/18/2024 CPT:02433e2,80968 Patient Age/Sex Location Account Attending Physician MELANIE CAREY 59/F EN [id number] Hugo Pierre DO Signed (signature on file) Dr. Lito Monique MD 12/21/24 1318 Normal [facility] Comment on above: Performed By: #### L 500.3400, L500.2500, L100.0100 #### [facility] [address] [place], [address] MR/POSTOP.ANEon 12-18-2024 MR/POSTOP.ANE [facility] Medical Records Department [address] [place] [address] Anesthesia Postop Eval I 12/18/24 0749 MR#: [id number] Acct: [id number] Name: MELANIE CAREY Rep #: [id number] : 1965 59 From: Joe Granda PCP: Dr. Gio Ricketts MD Status[place] [place] Race: C Location: [place] [address] Anesthesia: Postop Eval I Current Vital Signs Temperature: 99.3 F Pulse Rate: 75 Blood Pressure: 128/74 Respiratory Rate: 16 Pulse Ox: 97 Oxygen Delivery Method: Room Air Assessment Airway patent: Yes Spontaneous unlabored respirations: Yes Mental status: Awake nausea: No Vomiting: No Anesthesia Complication: No Fluid Hydration Crystalloid volume administer (ml): 500 Total IV fluid infused: 500 Progress Note Anesthesia document: Postop Eval 1 completed: Yes 12/18/24 0750 Date Joe Coronel Signature: Date CC: Signed Normal [facility] MR/[id number] 12-18-2024 MR/POSTOPAN2 [facility] Medical Records Department [address] [place] [address] Anesthesia Postop Eval II 12/18/24 08 MR#: [id number] Acct: [id number] Name: MELANIE CAREY Rep #: [id number] : 1965 59 From: Daniel Merida MD PCP: Dr. Gio Ricketts MD Status:REG [facility] Y Race: C Location: [facility]12 Anesthesia Postop Eval I Sum Postop Eval Completion status Anesthesia document: Postop Eval 1 completed: Yes Anesthesia Postop Eval I Summary Anesthesia Postop Eval I Summary: Anesthesia Postop Eval I: Assessment Summary Airway patent Yes 12/18/24 07:50 [email or web address] Spontaneous unlabored Yes 12/18/24 07:50 [email or web address] respirations Mental status Awake 12/18/24 07:50 [email or web address] nausea No 12/18/24 07:50 [email or web address] Vomiting No 12/18/24 07:50 [email or web address] Anesthesia Postop Eval I: Fluid Summary Crystalloid volume administer 500 12/18/24 07:50 [email or web address] (ml) Colloids volume administered ( ml) Blood Product volume administered (ml) Total IV fluid infused 500 12/18/24 07:50 [email or web address] Anesthesia Postop Eval I: Summary Notes Anesthesia Complication No 12/18/24 07:50 [email or web address] Anesthesia Complication Comment: Post-operative progress note Anesthesia: Postop Eval II Evaluation Mental status: Awake Pain Level: 0 nausea: No Vomiting: No 12/18/24801 Date Daniel Merida MD Cosigner Signature: Date CC: Signed Normal [facility] L501.5101on 12-17-2024 GGTP 66 IU/L Abnormal 0-60 [facility] Comment on above: Result Comment: Perf ormed at: - [facility] [address] [id number] Portable Grinding Machine Operator: Iván Smith PhD, Phone: [phone] Performed By: #### L 100.0100, L501.5101 #### [facility] [address] [place], [address] CBC W/Diff, Automatedon 06-0 7-2024 Absolute Lymph 0.58 X10 3/uL Low 0.83-4.51 [facility] Comment on above: Performed By: #### L 100.0100, L501.5101 #### [facility] [address] [place], [address] Absolute Neut 2.7 X10 3/uL Normal 2.0-7.7 [facility] Comment on above: Performed By: #### L 100.0100, L501.5101 #### [facility] [address] [place], [address] Basophils/100 WBC (Bld) 0.3 % Normal 0-1 [facility] Comment on above: Performed By: #### L 100.0100, L501.5101 #### [facility] [address] [place], [address] Eosinophils/100 WBC (Bld) 0.0 % Normal 0-5 [facility] Comment on above: Performed By: #### L 100.0100, L501.5101 #### [facility] [address] [place], [address] Erythrocyte distribution width (RBC) [Ratio] 15.8 % High 11.6-14.6 [facility] Comment on above: Performed By: #### L 100.0100, L501.5101 #### [facility] [address] [place], [address] Hematocrit (Bld) [Volume fraction] 34.7 % Low 37-47 [facility] Comment on above: Performed By: #### L 100.0100, L501.5101 #### [facility] [address] [place], [address] Hemoglobin (Bld) [Mass/Vol] 11.6 g/dL Low 12.0-15.0 [facility] Comment on above: Performed By: #### L 100.0100, L501.5101 #### [facility] [address] [place], [address] IG% 0.300 Normal 0.0-0.9 [facility] Comment on above: Result Comment: IG% - Immature Granulocytes (promyelocytes, myelocytes and metamyelocytes) > 1% indicates that a LEFT SHIFT is Present. Performed By: #### L 100.0100, L501.5101 #### [facility] [address] [place], [address] Lymphocytes/100 WBC (Bld) 16.0 % Low 19-41 [facility] Comment on above: Performed By: #### L 100.0100, L501.5101 #### [facility] [address] [place], [address] MCH (RBC) [Entitic mass] 28.0 pg Normal 27.0-32.0 [facility] Comment on above: Performed By: #### L 100.0100, L501.5101 #### [facility] [address] [place], [address] MCHC (RBC) [Mass/Vol] 33.4 g/dL Normal 32-36 [facility] Comment on above: Performed By: #### L 100.0100, L501.5101 #### [facility] [address] [place], [address] MCV (RBC) [Entitic vol] 83.8 fL Normal 81-99 [facility] Comment on above: Performed By: #### L 100.0100, L501.5101 #### [facility] [address] [place], [address] Monocytes/100 WBC (Bld) 9.1 % Normal 0-10 [facility] Comment on above: Performed By: #### L 100.0100, L501.5101 #### [facility] [address] [place], [address] Neutrophils/100 WBC (Bld) 74.3 % High 47-70 [facility] Comment on above: Performed By: #### L 100.0100, L501.5101 #### [facility] [address] [place], [address] Nucleated RBC (Bld) [#/Vol] 0 10*3/uL Normal 0-5 [facility] Comment on above: Performed By: #### L 100.0100, L501.5101 #### [facility] [address] [place], [address] Platelet mean volume (Bld) [Entitic vol] 11.3 fL Normal 6.2-12.0 [facility] Comment on above: Performed By: #### L 100.0100, L501.5101 #### [facility] [address] [place], [address] Platelets (Bld) [#/Vol] 52 10*3/uL Low 150-450 [facility] Comment on above: Performed By: #### L 100.0100, L501.5101 #### [facility] [address] [place], [address] RBC (Bld) [#/Vol] 4.14 10*6/uL Low 4.2-5.4 [facility] Comment on above: Performed By: #### L 100.0100, L501.5101 #### [facility] [address] [place], [address] RDW SD 47.7 fl High 35.1-43.9 [facility] Comment on above: Performed By: #### L 100.0100, L501.5101 #### [facility] [address] [place], [address] WBC (Bld) [#/Vol] 3.6 10*3/uL Low 4.4-11.0 [facility] Comment on above: Performed By: #### L 100.0100, L501.5101 #### [facility] [address] [place], [address] MR/PAT.Margarette 12-14-2024 MR/PAT.YUMIKO [facility] Medical Records Department [address] [place] [address] PAT - Anesthesia 12/14/24 1519 MR#: [id number] Acct: [id number] Name: MELANIE CAREY Rep #: [id number] : 1965 59 From: Raymond Garrett MD PCP: Dr. Gio Ricketts MD Status[place] [place] Race: C Location: EN Pre-Assessment Diagnosis/Proposed Procedure Planned Operative Procedure(s): EGD, CSCOPE Anesthesia History Anesthesia History - box loader: Anesthesia History - box loader Hx Hospitalization No 12/14/24 10:48 Any Problems [...] take am of surgery PONV PONV - box loader: PONV - box loader Female Yes 12/14/24 10:48 HX of Motion [...] 11/15/24 09:05 Respiratory Assessment Respiratory Assessment - box loader: Respiratory Tract Infection Hx - box loader Hx Respiratory Tract Infection No 12/14/24 10:48 STOP Sleep Apnea STOP Sleep Apnea - box loader: STOP Sleep Apnea - box loader Hx Hypertension No 12/14/24 10:48 Hx Sleep [...] Tobacco Use History Tobacco Use History - box loader: Tobacco Use History - box loader Tobacco Use Smoking Status Former smoker 12/14/24 10:48 Hx Tobacco Use No 12/14/24 10:48 Years Smoking Packs Smoked per Day Smoking Cessation Date was No - quit smoking greater 12/14/24 10:48 within the last 15 years than 15 years ago Hx Smoking Cessation Date 07/12/06 12/14/24 10:48 Hx Smoking Cessation No 12/14/24 10:48 Counseling Hematologic Medial History Hematologic Hx - box loader: Hematologic Medical Hx - chicken boner Hx of Blood Transfusion No 12/14/24 10:48 [...] confused, unrespo /Reproduction History /Reproductive History - box loader: /Reproductive Hx- box loader Hx Now No 12/14/24 10:48 Gestational Age (in weeks): EDC: Hx Hx Para Hx Section SAB No 12/14/24 10:48 [facility] Medical History (Updated 12/14/24 @ 10:59 by [...] Contact with and (more content not included)... [facility] [id number] 12-13-2024 [id number] Called and spoke johny Espinosa at [facility] pharmacy. It appears that the PA was going through 360 days instead of 365. Francisca was able to get it to go through at no cost. Patient called and notified that it was all taken care of and should be able to go pick it up at [facility]. [facility] 12-13-2024 36 I am honestly not acosta re what the issue is. When reviewing the prescription I do not see any abnormalities. Will see if she does well using her phone as the reader. If she has any issues with that please let us know and we will see what we need to do to get the reader covered by her insurance. [facility] [id number] 12-12-2024 [id number] Please update RX. [facility] [id number] 12-11-2024 [id number] Thank you for verify ing. Rx sent for the [employer] reader as well as sensors to the requested pharmacy. [facility] [phone] Pended. [facility] 12-11-2024 36 Please verify with Binh basurto the exact brand of nikolay she is needing me to send. I want to make sure I send in the correct item for her. Thank you. Normal [facility] Basic Metabolic Profile (BMP )on 12-08-2024 BUN/CRE 14.0 RATIO Normal 10-20 [facility] Comment on above: Performed By: #### L 500.3400, L500.2500, L100.0100 #### [facility] [address] [place], [address] Calcium [Mass/Vol] 9.7 mg/dL Normal 7.6-11.0 [facility] Comment on above: Performed By: #### L 500.3400, L500.2500, L100.0100 #### [facility] [address] [place], [address] Chloride [Moles/Vol] 100 mmol/L Normal 98-108 [facility] Comment on above: Performed By: #### L 500.3400, L500.2500, L100.0100 #### [facility] [address] [place], [address] CO2 [Moles/Vol] 23.9 mmol/L Normal 21.0-32.0 [facility] Comment on above: Performed By: #### L 500.3400, L500.2500, L100.0100 #### [facility] [address] [place], [address] Creatinine [Mass/Vol] 1.12 mg/dL Normal 0.70-1.20 [facility] Comment on above: Performed By: #### L 500.3400, L500.2500, L100.0100 #### [facility] [address] [place], [address] GAP 10 Normal 5-15 [facility] Comment on above: Performed By: #### L 500.3400, L500.2500, L100.0100 #### [facility] [address] [place], [address] GFR/1.73 sq M.predicted among non-blacks MDRD (S/P/Bld) [Vol rate/Area] 57 mL/min/{1.73_m2} Low >60 [facility] Comment on above: Result Comment: mL/m in/1.73m2 CKD-EPI Creatinine Equation (2020) Performed By: #### L 500.3400, L500.2500, L100.0100 #### [facility] [address] [place], [address] Glucose [Mass/Vol] 272 mg/dL High 70-99 [facility] Comment on above: Performed By: #### L 500.3400, L500.2500, L100.0100 #### [facility] [address] [place], [address] Potassium [Moles/Vol] 4.8 mmol/L Normal 3.3-5.1 [facility] Comment on above: Performed By: #### L 500.3400, L500.2500, L100.0100 #### [facility] [address] [place], [address] Sodium [Moles/Vol] 135 mmol/L Normal 133-145 [facility] Comment on above: Performed By: #### L 500.3400, L500.2500, L100.0100 #### [facility] [address] [place], [address] Urea nitrogen [Mass/Vol] 16 mg/dL Normal 4-19 [facility] Comment on above: Performed By: #### L 500.3400, L500.2500, L100.0100 #### [facility] [address] [place], [address] CBC W/Diff, Automatedon 05-3 0-2024 Absolute Lymph 0.55 X10 3/uL Low 0.83-4.51 [facility] Comment on above: Performed By: #### L 500.3400, L500.2500, L100.0100 #### [facility] [address] [place], [address] Absolute Neut 2.4 X10 3/uL Normal 2.0-7.7 [facility] Comment on above: Performed By: #### L 500.3400, L500.2500, L100.0100 #### [facility] [address] [place], [address] Basophils/100 WBC (Bld) 0.3 % Normal 0-1 [facility] Comment on above: Performed By: #### L 500.3400, L500.2500, L100.0100 #### [facility] [address] [place], [address] Eosinophils/100 WBC (Bld) 0.0 % Normal 0-5 [facility] Comment on above: Performed By: #### L 500.3400, L500.2500, L100.0100 #### [facility] [address] [place], [address] Erythrocyte distribution width (RBC) [Ratio] 15.3 % High 11.6-14.6 [facility] Comment on above: Performed By: #### L 500.3400, L500.2500, L100.0100 #### [facility] [address] [place], [address] Hematocrit (Bld) [Volume fraction] 37.3 % Normal 37-47 [facility] Comment on above: Performed By: #### L 500.3400, L500.2500, L100.0100 #### [facility] [address] [place], [address] Hemoglobin (Bld) [Mass/Vol] 12.2 g/dL Normal 12.0-15.0 [facility] Comment on above: Performed By: #### L 500.3400, L500.2500, L100.0100 #### [facility] [address] [place], [address] IG% 0.300 Normal 0.0-0.9 [facility] Comment on above: Result Comment: IG% - Immature Granulocytes (promyelocytes, myelocytes and metamyelocytes) > 1% indicates that a LEFT SHIFT is Present. Performed By: #### L 500.3400, L500.2500, L100.0100 #### [facility] [address] [place], [address] Lymphocytes/100 WBC (Bld) 16.4 % Low 19-41 [facility] Comment on above: Performed By: #### L 500.3400, L500.2500, L100.0100 #### [facility] [address] [place], [address] MCH (RBC) [Entitic mass] 27.9 pg Normal 27.0-32.0 [facility] Comment on above: Performed By: #### L 500.3400, L500.2500, L100.0100 #### [facility] [address] [place], [address] MCHC (RBC) [Mass/Vol] 32.7 g/dL Normal 32-36 [facility] Comment on above: Performed By: #### L 500.3400, L500.2500, L100.0100 #### [facility] [address] [place], [address] MCV (RBC) [Entitic vol] 85.4 fL Normal 81-99 [facility] Comment on above: Performed By: #### L 500.3400, L500.2500, L100.0100 #### [facility] [address] [place], [address] Monocytes/100 WBC (Bld) 10.7 % High 0-10 [facility] Comment on above: Performed By: #### L 500.3400, L500.2500, L100.0100 #### [facility] [address] [place], [address] Neutrophils/100 WBC (Bld) 72.3 % High 47-70 [facility] Comment on above: Performed By: #### L 500.3400, L500.2500, L100.0100 #### [facility] [address] [place], [address] Nucleated RBC (Bld) [#/Vol] 0 10*3/uL Normal 0-5 [facility] Comment on above: Performed By: #### L 500.3400, L500.2500, L100.0100 #### [facility] [address] [place], [address] Platelet mean volume (Bld) [Entitic vol] 10.9 fL Normal 6.2-12.0 [facility] Comment on above: Performed By: #### L 500.3400, L500.2500, L100.0100 #### [facility] [address] [place], [address] Platelets (Bld) [#/Vol] 51 10*3/uL Low 150-450 [facility] Comment on above: Performed By: #### L 500.3400, L500.2500, L100.0100 #### [facility] [address] [place], [address] RBC (Bld) [#/Vol] 4.37 10*6/uL Normal 4.2-5.4 [facility] Comment on above: Performed By: #### L 500.3400, L500.2500, L100.0100 #### [facility] [address] [place], [address] RDW SD 47.3 fl High 35.1-43.9 [facility] Comment on above: Performed By: #### L 500.3400, L500.2500, L100.0100 #### [facility] [address] [place], [address] WBC (Bld) [#/Vol] 3.4 10*3/uL Low 4.4-11.0 [facility] Comment on above: Performed By: #### L 500.3400, L500.2500, L100.0100 #### [facility] [address] [place], [address] Liver Profileon 12-08-2024 Albumin [Mass/Vol] 4.0 g/dL Normal 3.5-5.0 [facility] Comment on above: Performed By: #### L 500.3400, L500.2500, L100.0100 #### [facility] [address] [place], [address] ALK PHOS 116 U/L High 35-104 [facility] Comment on above: Performed By: #### L 500.3400, L500.2500, L100.0100 #### [facility] [address] [place], [address] ALT [Catalytic activity/Vol] 26 U/L Normal <=34 [facility] Comment on above: Performed By: #### L 500.3400, L500.2500, L100.0100 #### [facility] [address] [place], [address] AST [Catalytic activity/Vol] 32 U/L Normal <=31 [facility] Comment on above: Performed By: #### L 500.3400, L500.2500, L100.0100 #### [facility] [address] [place], [address] Bilirubin [Mass/Vol] 1.03 mg/dL Normal 0.00-1.30 [facility] Comment on above: Performed By: #### L 500.3400, L500.2500, L100.0100 #### [facility] [address] [place], [address] Bilirubin.direct [Mass/Vol] 0.40 mg/dL High 0.00-0.30 [facility] Comment on above: Performed By: #### L 500.3400, L500.2500, L100.0100 #### [facility] [address] [place], [address] Globulin (S) [Mass/Vol] 3.6 g/dL Normal 2.2-4.2 [facility] Comment on above: Performed By: #### L 500.3400, L500.2500, L100.0100 #### [facility] [address] [place], [address] T PROT 7.6 g/dL Normal 5.9-8.4 [facility] Comment on above: Performed By: #### L 500.3400, L500.2500, L100.0100 #### [facility] [address] [place], [address] CBC W/Diff, Automatedon 11-10 PLT EST SLT DEC Normal ADEQ [facility] Comment on above: Performed By: #### L 500.3400, L100.0100 #### [facility] [address] [place], [address] SMEAR COMMENT Normal [facility] Comment on above: Result Comment: LYMP HOPENIA Performed By: #### L 500.3400, L100.0100 #### [facility] [address] [place], [address] Liver Profileon 11-29-2024 Albumin [Mass/Vol] 3.8 g/dL Normal 3.5-5.0 [facility] Comment on above: Performed By: #### L 500.3400, L100.0100 #### [facility] [address] [place], [address] ALK PHOS 120 U/L High 35-104 [facility] Comment on above: Performed By: #### L 500.3400, L100.0100 #### [facility] [address] [place], [address] ALT [Catalytic activity/Vol] 25 U/L Normal <=34 [facility] Comment on above: Performed By: #### L 500.3400, L100.0100 #### [facility] [address] [place], [address] AST [Catalytic activity/Vol] 27 U/L Normal <=31 [facility] Comment on above: Performed By: #### L 500.3400, L100.0100 #### [facility] [address] [place], [address] Bilirubin [Mass/Vol] 0.84 mg/dL Normal 0.00-1.30 [facility] Comment on above: Performed By: #### L 500.3400, L100.0100 #### [facility] [address] [place], [address] Bilirubin.direct [Mass/Vol] 0.37 mg/dL High 0.00-0.30 [facility] Comment on above: Performed By: #### L 500.3400, L100.0100 #### [facility] [address] [place], [address] Globulin (S) [Mass/Vol] 3.6 g/dL Normal 2.2-4.2 [facility] Comment on above: Performed By: #### L 500.3400, L100.0100 #### [facility] [address] [place], [address] T PROT 7.4 g/dL Normal 5.9-8.4 [facility] Comment on above: Performed By: #### L 500.3400, L100.0100 #### [facility] [address] [place], [place], [address] CTA Abdomen W/WO Contraston 11-27-2024 CTA Abdomen W/WO Contrast [facility] Services [address] [place] [address] CTA Abdomen W/WO Contrast MR#: [id number] Acct: [id number] Name: MELANIE CAREY Rep #: [id number] : 1965 F 59 From: Addi Liao MD PCP: Dr. Gio Ricketts MD Status: DEP CLI Study: CTA Abdomen W/WO Contrast Date of Exam: Exam# [id number] Ordering Dr: Deisi Nath ADDENDUM by Dr. Addi Liao MD on 12/14/24 at 0540 3D post processing was performed and reviewed. Reading Location: [id number] 12/14/24 0541 Date cc: CRISTY Nath; Dr. Gio Ricketts MD * Signed PROCEDURE: CTA ABDOMEN [...] the liver, suggestive of fibrosis. Reading Location: [id number] CC: CRISTY Nath; Dr. Gio Ricketts MD Hot Room Attendant: Signed Normal [facility] Urgent Care Visit Reporton 0 11-25-2024 Urgent Care Visit Report [facility] [address], [address] [place] [address] OFFICE VISIT Date of Service: 11/25/24 MR#: [id number] Acct: [id number] Name: MELANIE CAREY Rep #: [id number] : 1965 Provider: HERMES Pereira Age/Sex: 59/F Location: [facility] Status: Signed Intake Vital Signs 11/15/24 09:05 [...] QWEEK 10/31/24 5 History subcutaneous pen injector (Datunvega) amoxicillin 500 mg capsule 500 mg PO TID 7 days #21 caps 11/0911/25/24 Rx Nurse's Note: Patient has concerns for infection in her lower gum. Patient states its been going on for a couple days and the last 2 days it got worse. Patient can't wear her bottom denture. Patient states the gland under her jaw line is swollen. [facility] Medical History (Updated 11/25/24 @ 11:47 by [...] F who (more content not included)... Normal [facility] 36on 11-20-2024 36 Prescription Request : Mounjaro 5 MG/0.5ML Subcutaneous Solution Pen-injector Last medication check: 10/24/24 Last physical exam: none Next scheduled appointment: 01/09/25 Last date of refill on this medication 10/11/24 ( qty 2ml refill 0) Normal [facility] 36on 11-16-2024 36 I don't have anythin g that I did not disclose . [facility] Oncology Visit Reporton Oncology Visit Report [facility] [place] [address] OFFICE VISIT Date of Service: 11/15/24 0855 MR#: [id number] Acct: [id number] Name: MELANIE CAREY Rep #: [id number] : 1965 From: Rosales Oviedo MD Age/Sex: 59/F Location: [facility] Status: Signed HPI Subjective Date of Service [...] recommended. She subsequently went and saw a assurance engineer at [facility] who suggested a bone marrow biopsy but it was never done. In October 2024 she was seen by gastroenterology in [facility] for complicated liver cirrhosis and an [...] paraesophageal varices. She was referred back to [place] [facility] for reconsultation since she did not wish to go back to [facility]. 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 Normal [facility] Abdomen Limitedon 11-10-2024 Abdomen Limited [facility] Imaging Services [address] [place] [address] Abdomen Limited MR#: [id number] Acct: [id number] Name: MELANIE CAREY Rep #: [id number] : 1965 F 59 From: Paul Gutierrez MD PCP: Dr. Gio Ricketts MD Status: REG CLI Study: Abdomen Limited Date of Exam: 11/10/24 Exam# [id number] Ordering Dr: Deisi Nath PROCEDURE: ABDOMEN LIMITED 11/10/2024 REASON FOR EXAM: [...] x 8.4 x 7.3 cm. Reading Location: [id number] CC: CRISTY Nath; Dr. Gio Ricketts MD Hot Room Attendant: Signed Normal [facility] Inital Evaluation (1) - PTon 11-06-2024 Inital Evaluation (1) - PT [facility] [address] [place] [address] [address] [place] [address] / REHABILITATION SERVICES INITIAL EVALUATION MR#: [id number] Acct: [id number] Name: MELANIE CAREY Rep #: [id number] : 1965 59 From: Melany Wright PT, Cert. MDT Referring Dr.: Dr. Robles Ricketts MD Status: RE G RCR Insurance: [employer]URANCE Patient's Visit Information Visit [...] INSTRUCTION. 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 Disability: NO Present symptoms: BABS LOW BACK [...] DEMONSTRATE IMPROV (more content not included)... Normal [facility] RORY w/ Reflex Mult Confirmon 11-03-2024 ANTI-DNA (DS)AB TNP Normal [facility] Comment on above: Performed By: #### L 500.3400, L500.2500, L100.0100 #### [facility] [address] [place], [address] ANTI-CHUCKY-1 TNP Normal [facility] Comment on above: Performed By: #### L 500.3400, L500.2500, L100.0100 #### [facility] [address] [place], [address] ANTI-SS-A TNP Normal [facility] Comment on above: Performed By: #### L 500.3400, L500.2500, L100.0100 #### [facility] [address] [place], [address] AFP, Tumor Markeron 11-03-19 AFP TUMOR DWAYNE 2.3 ng/mL Normal 0.0-9.2 [facility] Comment on above: Order Comment: N Result Comment: [employer] Electrochemiluminescence Immunoassay (ECLIA) Values obtained with different assay methods or kits cannot be used interchangeably. Results cannot be interpreted as absolute evidence of the presence or absence of malignant disease. This test is not interpretable in females. Performed By: #### L 500.3400, L500.2500, L100.0100 #### [facility] [address] [place], [address] Anti-Mitochondrial ABon - ANTIMITOCHON AB <20.0 Normal 0.0-20.0 [facility] Comment on above: Result Comment: Nega tive 0.0 - 20.0 Equivocal 20.1 - 24.9 Positive >24.9 Mitochondrial (M2) Antibodies are found in 90-96% of patients with primary biliary cirrhosis. Performed By: #### L 500.3400, L500.2500, L100.0100 #### [facility] [address] [place], [place], [address] Anti-Smooth Muscle ABSon ANTISMOOTH MUSC 18 Units Normal 0-19 [facility] Comment on above: Result Comment: Nega tive 0 - 19 Weak positive 20 - 30 Moderate to strong positive >30 Actin Antibodies are found in 52-85% of patients with autoimmune hepatitis or chronic active hepatitis and in 22% of patients with primary biliary cirrhosis. Performed By: #### L 500.3400, L500.2500, L100.0100 #### [facility] [address] [place], [place], [address] Hepatitis A AB, Totalon - HEPATITIS A,TOT Positive Abnormal Negative [facility] Comment on above: Result Comment: Comm ent: The HAV total antibody assay detects both IgG and IgM but does not differentiate between them. A negative result suggests susceptibility to infection. A positive result could be due to vaccination, previously resolved infection or active infection. Testing for HAV IgM should be performed if active HAV infection is suspected. [facility] offers profiles that will automatically reflex positive HAV total antibody results to IgM (e.g., panel #[id number] HAV Antibody w/ Rfx). Performed at: [address] [id number] Portable Grinding Machine Operator: Iván Smith PhD, Phone: [phone] Performed By: #### L 500.3400, L500.2500, L100.0100 #### [facility] [address] [place], [place], [address] Hepatitis B Core Ab Totalon 11-02-2024 HEP B CORE,TOT Negative Normal Negative [facility] Comment on above: Performed By: #### L 500.3400, L500.2500, L100.0100 #### [facility] [address] [place], [address] 36on 11-01-2024 36 Called m for pt to call or check MyCHart. MyChart messaged pt Dr. Ricketts's message. Normal [facility] 36on 10-31-2024 36 Rx sent, I changed glimepiride to a 4 mg tablet so she does not need to take 2 of those, it looks like all the other changes she was talking about was already done, Lantus was not sent it was just sent in last week. Normal [facility] 36 Prescription Request : metFORMIN (Glucophage) 1000 [...] 10/24/24 (no qty or refills listed) Normal [facility] Basic Metabolic Profile (BMP )on 10-31-2024 BUN/CRE 15.2 RATIO Normal - [facility] Comment on above: Performed By: #### M 100678 #### [facility] [address] [place], [place], [address] Calcium [Mass/Vol] 9.5 mg/dL Normal 7.6-11.0 [facility] Comment on above: Performed By: #### M 100.678 #### [facility] [address] [place], [address] Chloride [Moles/Vol] 100 mmol/L Normal 98-108 [facility] Comment on above: Performed By: #### M 100.678 #### [facility] [address] [place], [address] CO2 [Moles/Vol] 23.0 mmol/L Normal 21.0-32.0 [facility] Comment on above: Performed By: #### M 100.678 #### [facility] [address] [place], [address] Creatinine [Mass/Vol] 1.23 mg/dL High 0.70-1.20 [facility] Comment on above: Performed By: #### M 100.678 #### [facility] [address] [place], [address] GAP 12 Normal 5-15 [facility] Comment on above: Performed By: #### M 100.678 #### [facility] [address] [place], [address] GFR/1.73 sq M.predicted among non-blacks MDRD (S/P/Bld) [Vol rate/Area] 51 mL/min/{1.73_m2} Low >60 [facility] Comment on above: Result Comment: mL/m in/1.73m2 CKD-EPI Creatinine Equation (2020) Performed By: #### M 100.678 #### [facility] [address] [place], [address] Glucose [Mass/Vol] 161 mg/dL High 70-99 [facility] Comment on above: Performed By: #### M 100.678 #### [facility] [address] [place], [address] Potassium [Moles/Vol] 4.3 mmol/L Normal 3.3-5.1 [facility] Comment on above: Performed By: #### M 100.678 #### [facility] [address] [place], [address] Sodium [Moles/Vol] 135 mmol/L Normal 133-145 [facility] Comment on above: Performed By: #### M 100.678 #### [facility] [address] [place], [address] Urea nitrogen [Mass/Vol] 19 mg/dL Normal 4-19 [facility] Comment on above: Performed By: #### M 100.678 #### [facility] [address] [place], [address] CBC W/Diff, Automatedon 04-2 -2024 Absolute Lymph 0.54 X10 3/uL Low 0.83-4.51 [facility] Comment on above: Performed By: #### M 100.678 #### [facility] [address] [place], [address] Absolute Neut 2.1 X10 3/uL Normal 2.0-7.7 [facility] Comment on above: Performed By: #### M 100.678 #### [facility] [address] [place], [address] Basophils/100 WBC (Bld) 0.3 % Normal 0-1 [facility] Comment on above: Performed By: #### M 100.678 #### [facility] [address] [place], [address] Eosinophils/100 WBC (Bld) 0.0 % Normal 0-5 [facility] Comment on above: Performed By: #### M 100.678 #### [facility] [address] [place], [address] Erythrocyte distribution width (RBC) [Ratio] 15.5 % High 11.6-14.6 [facility] Comment on above: Performed By: #### M 100.678 #### [facility] [address] [place], [address] Hematocrit (Bld) [Volume fraction] 36.1 % Low 37-47 [facility] Comment on above: Performed By: #### M 100.678 #### [facility] [address] [place], [address] Hemoglobin (Bld) [Mass/Vol] 11.9 g/dL Low 12.0-15.0 [facility] Comment on above: Performed By: #### M 100.678 #### [facility] [address] [place], [address] IG% 1.600 High 0.0-0.9 [facility] Comment on above: Result Comment: IG% - Immature Granulocytes (promyelocytes, myelocytes and metamyelocytes) > 1% indicates that a LEFT SHIFT is Present. Performed By: #### M 100.678 #### [facility] [address] [place], [address] Lymphocytes/100 WBC (Bld) 17.7 % Low 19-41 [facility] Comment on above: Performed By: #### M 100.678 #### [facility] [address] [place], [address] MCH (RBC) [Entitic mass] 27.5 pg Normal 27.0-32.0 [facility] Comment on above: Performed By: #### M 100.678 #### [facility] [address] [place], [address] MCHC (RBC) [Mass/Vol] 33.0 g/dL Normal 32-36 [facility] Comment on above: Performed By: #### M 100.678 #### [facility] [address] [place], [address] MCV (RBC) [Entitic vol] 83.4 fL Normal 81-99 [facility] Comment on above: Performed By: #### M 100.678 #### [facility] [address] [place], [address] Monocytes/100 WBC (Bld) 11.1 % High 0-10 [facility] Comment on above: Performed By: #### M 100.678 #### [facility] [address] [place], [address] Neutrophils/100 WBC (Bld) 69.3 % Normal 47-70 [facility] Comment on above: Performed By: #### M 100.678 #### [facility] [address] [place], [address] Nucleated RBC (Bld) [#/Vol] 0 10*3/uL Normal 0-5 [facility] Comment on above: Performed By: #### M 100.678 #### [facility] [address] [place], [address] Platelet mean volume (Bld) [Entitic vol] 11.0 fL Normal 6.2-12.0 [facility] Comment on above: Performed By: #### M 100.678 #### [facility] [address] [place], [address] Platelets (Bld) [#/Vol] 57 10*3/uL Low 150-450 [facility] Comment on above: Performed By: #### M 100.678 #### [facility] [address] [place], [address] RBC (Bld) [#/Vol] 4.33 10*6/uL Normal 4.2-5.4 [facility] Comment on above: Performed By: #### M 100.678 #### [facility] [address] [place], [address] RDW SD 46.7 fl High 35.1-43.9 [facility] Comment on above: Performed By: #### M 100.678 #### [facility] [address] [place], [address] WBC (Bld) [#/Vol] 3.1 10*3/uL Low 4.4-11.0 [facility] Comment on above: Performed By: #### M 100.678 #### [facility] [address] [place], [address] Ferritinon 10-31-2024 Ferritin [Mass/Vol] 49 ng/mL Normal 22-378 [facility] Comment on above: Performed By: #### L 500.3400, L500.2500, L100.0100 #### [facility] [address] [place], [address] Gastroenterology Visit Repor ton 10-31-2024 Gastroenterology Visit Report [facility] [address] [place] [address] OFFICE VISIT Date of Service: 10/31/24 MR#: [id number] Acct: [id number] Name: MELANIE CAREY Rep #: [id number] : 1965 Provider: CRISTY joshi Age/Sex: 59/F Location: [facility] [place] Status: Signed Intake Vital Signs 09/02/24 13:33 [...] 5 History subcutaneous pen injector (Mounjaro) [facility]LY [facility] Medical History Liver disease Loss of hearing [...] Asacol Colon (more content not included)... Normal [facility] Hepatitis B Surface Antibody on 10-31-2024 HEP B Surf Ab REAC Normal [facility] Comment on above: Result Comment: <8.5 mIU/mL: Non-Reactive 8.5<= x <11.5 mIU/mL: Indeterminate >=11.5 mIU/mL: Reactive Non Reactive: Inconsistent with immunity less than <10 mIU/mL Reactive: Consistent with immunity greater than or equal to 10 mIU/mL Performed By: #### L 500.3400, L500.2500, L100.0100 #### [facility] [address] [place], [address] Hepatitis C Antibodyon 10-31 Hepatitis C Ab Non-Reactive Normal Nonreactive [facility] Comment on above: Result Comment: Reac tive: Presumptive evidence of antibodies to HCV. Follow CDC recommendations for supplemental testing. Non-Reactive: Antibodies to HCV were not detected; does not exclude the possibility of exposure to HCV Reactive Results are presumptive evidence of antibodies to HCV. Follow CDC recommendations for supplemental testing. Order confirmation testing: HCV Quant by PCR testing - HCVPCR #[id number] Non Reactive: < 0.8 Equivocal: >/= 0.8 to < 1.0 Reactive: >/= 1.0 The [facility] requires that a reactive/equivocal HCV antibody result be sent out for confirmation. HCV Quant by PCR testing. Performed By: #### L 500.3400, L500.2500, L100.0100 #### [facility] [address] [place], [address] Iron+Iron Binding Capacityon 10-31-2024 Iron [Mass/Vol] 63 ug/dL Normal 50-170 [facility] Comment on above: Performed By: #### M 100.678 #### [facility] [address] [place], [address] IRON SATURATION 18.0 Normal 13-59 [facility] Comment on above: Performed By: #### M 100.678 #### [facility] [address] [place], [address] TIBC 359 ug/dL Normal 250-450 [facility] Comment on above: Performed By: #### M 100.678 #### [facility] [address] [place], [address] UIBC 296 ug/dL Normal 228-428 [facility] Comment on above: Performed By: #### M 100.678 #### [facility] [address] [place], [address] L3890.6102on 10-31-2024 HEP B Surf Ag Non-Reactive Normal Nonreactive [facility] Comment on above: Result Comment: Reac tive: Presumptive evidence of HBV. Repeatedly reactive samples must be confirmed using a neutralization test ([employer] HBsAg Confirmatory Test) Non-Reactive: HBsAg not detected; does not exclude the possibility of exposure to HBV Performed By: #### L 500.3400, L500.2500, L100.0100 #### [facility] [address] [place], [address] Liver Profileon 10-31-2024 Albumin [Mass/Vol] 4.1 g/dL Normal 3.5-5.0 [facility] Comment on above: Performed By: #### M 100.678 #### [facility] [address] [place], [address] ALK PHOS 129 U/L High 35-104 [facility] Comment on above: Performed By: #### M 100.678 #### [facility] [address] [place], [address] ALT [Catalytic activity/Vol] 21 U/L Normal <=34 [facility] Comment on above: Performed By: #### M 100.678 #### [facility] [address] [place], [address] AST [Catalytic activity/Vol] 25 U/L Normal <=31 [facility] Comment on above: Performed By: #### M 100.678 #### [facility] [address] [place], [address] Bilirubin [Mass/Vol] 1.02 mg/dL Normal 0.00-1.30 [facility] Comment on above: Performed By: #### M 100.678 #### [facility] [address] [place], [address] Bilirubin.direct [Mass/Vol] 0.44 mg/dL High 0.00-0.30 [facility] Comment on above: Performed By: #### M 100.678 #### [facility] [address] [place], [address] Globulin (S) [Mass/Vol] 3.3 g/dL Normal 2.2-4.2 [facility] Comment on above: Performed By: #### M 100.678 #### [facility] [address] [place], [address] T PROT 7.4 g/dL Normal 5.9-8.4 [facility] Comment on above: Performed By: #### M 100.678 #### [facility] [address] [place], [address] Prothrombin Time w/INRon INR Coag (PPP) [Relative time] 1.1 {INR} Normal [facility] Comment on above: Performed By: #### M 100.678 #### [facility] [address] [place], [address] PT Coag (PPP) [Time] 14.1 s Normal 11.7-14.9 [facility] Comment on above: Performed By: #### M 100.678 #### [facility] [address] [place], [address] Vitamin B12on 10-31-2024 Cobalamin (Vitamin B12) [Mass/Vol] 327 pg/mL Normal 180-914 [facility] Comment on above: Performed By: #### M 100.678 #### [facility] [address] [place], [address] 36on 10-24-2024 36 Spoke with pilar Conklin verbal updated instructions. Normal [facility] 36 Diflucan 150 mg lara y by mouth x 7 days. Normal [facility] 36 Name of caller: Rubin Contact phone number: [phone] Relationship to Patient: [facility] [address] [facility] [address] [employer] Provider: Cierra Practice: Jaky DUARTE Chief Complaint/Reason for Call: Rubin with [facility] pharmacy calling for clarification medicine fluconazole (Diflucan) 150 MG tablet. The directions have two sets of directions. Asking for a verbal or new script of correct directions. Please advise Best time of day caller can be reached: AM Patient advised that office/PCP has 24-48 business hours to return their call: N/A [facility] 37on 10-24-2024 37 Send daily fasting a nd 2 hour after meal blood sugar readings every 3 days to me through [employer]. [facility] Office Visiton 10-24-2024 Follow-up visit [id number] Ramesh Carey 1965 F Date Provider Department Center 10/24/2024 [id number] [facility] Family History Problem Relation Age of Onset Diabetes Mother Heart disease Father Cancer Father Comments: prostate High Blood Pressure Father Other Sister Comments: TBI Depression Mother Substance Abuse Brother Heart disease Mother Other Mother Depression Brother Family Status - Relation Status Age at Mother Father Sister Alive Brother Alive Level of Service:41022 CT OFFICE/OUTPATIENT ESTABLISHED MOD MDM 30 MIN Reason for Visit and Comments: Diabetes Mellitus [183] [facility] Progress Noteon 10-24-2024 Progress Note Continue with pain management as directed. [facility] Progress Note Continue b12 injections [facility] Progress Note Follow-up with hemat ology as directed. [facility] Progress Note Stable. Get diabetes under control. Blood pressures are good [facility] Progress Note Stable. Follow up [facility] gastroenterology as scheduled [facility] Progress Note Poorly controlled. Improved [...] to get better control of diabetes. Normal [facility] Progress Note Stable. Continue Wellbutrin 300 mg daily, BuSpar 10 mg twice daily. Recommend establishing with counselor [facility] Progress Note Controlled. Blood pr essure 124/72. Continue labetalol 100 mg twice daily. Has not tolerated CLAUDY inhibitors in the past, consider ARB [facility] Progress Note Controlled. Continue rosuvastatin [address] [facility] Progress Note Continue portion con trol, low carb,low fat, low cholesterol diet. Increase physical activity as tolerated. Normal [facility] Progress Note 10/24/2024 Melanie Carey (: 1965) [...] 2 diabetes mellitus with hyperglycemia, unspecified whether senior care insulin use (HCC) - insulin glargine (Lantus [...] (BMI) of 40.0 to 44.9 in adult ([facility]) Assessment & Plan: Continue portion control, low carb,low fat, low cholesterol diet. Increase physical activity as tolerated. Follow up for 3 month [facility]. SUBJECTIVE/OBJECTIVE: [facility] - Melanie Carey (: 1965) is [...] was supposed to start physical therapy at [facility] in [place] but was not able to get it [...] mg) by mouth daily (with breakfast). HYDROcodone-acetaminophen ([place]) 5-325 MG tablet TAKE 1 TABLET BY MOUTH EVERY 6 HOURS NEEDED FOR PAIN FOR 3 DAYS labetalol (Normodyne) 100 MG tablet TAKE 1 TABLET BY MOUTH IN THE MORNING AND 1 TABLET IN THE EVENING. 60 tablet 0 metFORMIN (Glucophage) 1000 MG tablet Take 1 tablet (1,000 mg) by mouth 2 times daily (with meals). 180 tablet 1 nystatin (Mycostatin) 364196 UNIT/GM powder Apply topically 2 times daily. 30 g 0 rosuvastatin (Crestor) 5 MG tablet Take 1 tablet (5 mg) by mouth daily. 90 tablet 1 Tirzepatide (Mounjaro) 5 MG/0.5ML solution auto-injector Inject 5 mg (more content not included)... Normal [facility] Progress Note Patient was identifi ed by name and Date of . Health Maintenance Due Topic Mammogram-pended [facility] [id number] 10-09-2024 [id number] Faxed DEVONTE to Dr[facility] Monson's [facility] [place] [facility] 10-09-2024 [address]. [address] [facility] 36 DEVONTE's printed and fi lled out ok to send? [facility] Basic metabolic 1998 panelon 09-27-2024 Anion gap [Moles/Vol] 9 mmol/L 3 - 13 mmol/L [facility] Calcium [Mass/Vol] 8.6 mg/dL 8.4 - 10. 2 mg/dL [facility] Chloride [Moles/Vol] 105 mmol/L 98 - 10 7 mmol/L [facility] CO2 [Moles/Vol] 18 mmol/L Low 22 - 29 mmol/L [facility] Creatinine [Mass/Vol] 1.17 mg/dL High 0.57 - 1.11 mg/dL [facility] GFR/1.73 sq M.predicted (S/P/Bld) [Vol rate/Area] 54.5 mL/min Low - PINF [facility] Comment on above: Calculation based on the Chronic Kidney Disease Epidemiology Collaboration (CKD-EPI) equation refit without adjustment for race Glucose [Mass/Vol] 419 mg/dL High 74 - 100 mg/dL [facility] Interpretation and review of laboratory results Abnormal [facility] Potassium [Moles/Vol] 4.5 mmol/L 3.5 - 5.1 mmol/L [facility] Comment on above: Plasma potassium chelsy ues may be up to 0.5 mmol/L lower than serum values. Sodium [Moles/Vol] 132 mmol/L Low 136 - 145 mmol/L [facility] Urea nitrogen [Mass/Vol] 29 mg/dL High 9 - 23 mg/dL [facility] CBC W Auto Differential pane l (Bld)Ordered By: Laura Abad on 09-27-2024 Erythrocyte distribution width (RBC) [Ratio] 15 % 11.5 - 15.0 % [facility] Hematocrit (Bld) [Volume fraction] 37 % 35.0 - 47.0 % [facility] Hemoglobin (Bld) [Mass/Vol] 12.3 g/dL 11.7 - 16.0 g/dL [facility] Interpretation and review of laboratory results Abnormal [facility] IPF 4 [facility] MCH (RBC) [Entitic mass] 27.3 pg 26.0 - 34.0 pg [facility] MCHC (RBC) [Mass/Vol] 33.2 % 30.5 - 36.0 % [facility] MCV (RBC) [Entitic vol] 82 fL 77.0 - 99.0 fL [facility] Platelet mean volume (Bld) [Entitic vol] 11.3 fL 9.0 - 12.7 fL [facility] Platelets (Bld) [#/Vol] 50 10*3/uL Low 140 - 440 10*3/uL [facility] RBC (Bld) [#/Vol] 4.51 10*6/uL 3.80 - 5.2 0 10*6/uL [facility] WBC (Bld) [#/Vol] 5.4 10*3/uL 3.6 - 10.7 10*3/uL [facility] Comprehensive metabolic 1998 panelOrdered By: Cherelle Santos on 09-27-2024 Albumin [Mass/Vol] 3.5 g/dL 3.5 - 5.0 g/dL [facility] ALP [Catalytic activity/Vol] 145 U/L 40 - 150 U/L [facility] ALT [Catalytic activity/Vol] 32 U/L High NINF - 30 U/L [facility] Anion gap [Moles/Vol] 12 mmol/L 3 - 13 mmol/L [facility] AST [Catalytic activity/Vol] 32 U/L NINF - 34 U/L [facility] Bilirubin [Mass/Vol] 1.3 mg/dL High NINF - 1.2 mg/dL [facility] Calcium [Mass/Vol] 9.2 mg/dL 8.4 - 10. 2 mg/dL [facility] Chloride [Moles/Vol] 102 mmol/L 98 - 10 7 mmol/L [facility] CO2 [Moles/Vol] 18 mmol/L Low 22 - 29 mmol/L [facility] Creatinine [Mass/Vol] 1.49 mg/dL High 0.57 - 1.11 mg/dL [facility] GFR/1.73 sq M.predicted (S/P/Bld) [Vol rate/Area] 40.8 mL/min Low - PINF [facility] Comment on above: Calculation based on the Chronic Kidney Disease Epidemiology Collaboration (CKD-EPI) equation refit without adjustment for race Glucose [Mass/Vol] 528 mg/dL Critically high 74 - 1 00 mg/dL [facility] Interpretation and review of laboratory results Abnormal [facility] Potassium [Moles/Vol] 4.9 mmol/L 3.5 - 5.1 mmol/L [facility] Comment on above: Plasma potassium chelsy ues may be up to 0.5 mmol/L lower than serum values. Protein [Mass/Vol] 7.6 g/dL 6.4 - 8.3 g/dL [facility] Sodium [Moles/Vol] 132 mmol/L Low 136 - 145 mmol/L [facility] Urea nitrogen [Mass/Vol] 30 mg/dL High 9 - 23 mg/dL [facility] Laboratory - Chemistry and C hemistry - challengeon 09-27-2024 Glucose [Mass/Vol] 303 mg/dL High 70 - 100 mg/dL [facility] Beta hydroxybutyrate [Mass/Vol] 2.3 mg/dL NINF - 2.8 mg/dL [facility] Magnesium [Mass/Vol] 1.6 mg/dL 1.6 - 2 .6 mg/dL [facility] Glucose [Mass/Vol] mg/dL High 70 - 100 mg/dL [facility] Comment on above: Confirmation Drawn; Caregiver Notified; Laboratory - Chemistry and C hemistry - challengeOrdered By: Suly Hamilton on 09-27-2024 Base excess Calc (BldV) [Moles/Vol] -4.7000 mmol/L Low -3.0 - 3.0 mmol/L [facility] CO2 (BldV) [Partial pressure] 31.2 mm[Hg] Low [facility] CO2 [Moles/Vol] 19.9 mmol/L Low 23.0 - 30.0 mmol/L [facility] HCO3 (Bld) [Moles/Vol] 19 mmol/L Low 21.0 - 30.0 mmol/L [facility] Oxygen (BldV) [Partial pressure] 72.5 mm[Hg] mm Hg [facility] pH (BldV) 7.402 [pH] 7.320 - 7.420 [facility] Laboratory - Hematology and Cell countson 09-27-2024 Lymphocytes (Bld) [#/Vol] 0.1 10*3/uL Low 1.0 - 4.3 10*3/uL [facility] Lymphocytes/100 WBC (Bld) 2 % Low 15 - 45 % [facility] Monocytes (Bld) [#/Vol] 0.2 10*3/uL 0.0 - 0.9 10*3/uL [facility] Monocytes/100 WBC (Bld) 4 % Low 5 - 13 % [facility] Myelocytes (Bld) [#/Vol] 0.2 10*3/uL High NINF - 0.0 10*3/uL [facility] Myelocytes/100 WBC (Bld) 3 % High NINF - 0 % [facility] Neutrophils (Bld) [#/Vol] 4.7 10*3/uL 1.8 - 7.5 10*3/uL [facility] RBC morphology finding Nom (Bld) Normal [facility] Segmented neutrophils/100 WBC (Bld) 87 % High 38 - 82 % [facility] Variant lymphocytes (Bld) [#/Vol] 0.2 10*3/uL High NINF - 0.0 10*3/uL [facility] Variant lymphocytes/100 WBC (Bld) 4 % High NINF - 0 % [facility] Laboratory - Hematology and Cell countsOrdered By: Suly Hamilton on 09-27-2024 Hemoglobin (Bld) [Mass/Vol] 13.1 g/dL Screen only [facility] Magnesium [Mass/Vol]on 09-27 Higher values can be expected in females during menses. [employer] [facility] No Panel Informationon 09-27 P [place] 60 degrees [facility] CT Interval 208 ms [facility] QRS [place] -75 degrees [facility] QRSD Interval 106 ms [facility] QT Interval 355 ms [facility] QTC Interval 448 ms [facility] T Wave [place] 64 degrees [facility] Sinus rhythm Prolonged CT interval Left anterior fascicular block Consider right ventricular hypertrophy Probable left ventricular hypertrophy EKG per my interpretation shows a normal sinus rhythm at a rate of 96 with a left axis deviation. There is a left anterior fascicular block. There may be LVH and RVH. There is no acute ST elevation or ST depression. Intervals are within normal limits although CT may be slightly prolonged. There were no significant changes compared to prior EKG on file. Electronically Signed On 09-27-2024 20:11:11 EDT by Jimenez De La Fuente MD - 09/27/2024 IMPRESSION: Sinus rhythm Prolonged CT interval Left anterior fascicular block Consider right ventricular hypertrophy Probable left ventricular hypertrophy EKG per my interpretation shows a normal sinus rhythm at a rate of 96 with a left axis deviation. There is a left anterior fascicular block. There may be LVH and RVH. There is no acute ST elevation or ST depression. Intervals are within normal limits although CT may be slightly prolonged. There were no significant changes compared to prior EKG on file. Electronically Signed On 09-27-2024 20:11:11 EDT by Jimenez Maddox [facility] Interpretation and review of laboratory results Abnormal [facility] Performed by: Gerson Ortega [facility], [address] [place] [id number] CLIA ID: [id number] [facility] Atypical Lymphocytes Manual 4 [facility] Bands Manual [facility] Basophils Manual [facility] Blasts Manual [facility] Eosinophils Manual [facility] Interpretation and review of laboratory results Abnormal [facility] Lymphocytes Manual 2 [facility] Metamyelocytes Manual [facility] Monocytes Manual 4 [facility] Myelocytes Manual 3 [facility] Neutrophils Manual 89 [facility] Promyelocytes Manual [facility] Unclassified Cells, Manual [facility] Interpretation and review of laboratory results Normal [facility] Interpretation and review of laboratory results Abnormal [facility] Performed by: [facility], [address] [place] [id number] CLIA ID: [id number] [facility] No Panel InformationOrdered By: Suly Hamilton on 09-27-2024 Amount Of Oxygen [facility] Interpretation and review of laboratory results Abnormal [facility] Source Of Oxygen No data [facility] Assessment of oxygen ation is best done with an arterial blood gas determination. Reference ranges for pO2, bicarbonate, and base excess are for mixed venous blood. Specimens drawn from a peripheral vein will often have higher values. [facility] Phosphate [Moles/Vol]on 09-09 Interpretation and review of laboratory results Abnormal [facility] Phosphate [Mass/Vol] 2.1 mg/dL Low 2.3 - 4 .7 mg/dL [facility] Vital signson 09-27-2024 Heart rate 96 /min bpm [facility] Vital signsOrdered By: Suly Hamilton on 09-27-2024 Oxygen saturation in Venous blood 93.8 % [facility] Emergency Department Summary on 09-02-2024 Emergency Department Summary [facility] Medical Records Department [address] [place] [address] Emergency Department Summary 09/02/24 MR#: [id number] Acct: [id number] Name: MELANIE CAREY Rep #: [id number] : 1965 59 From: Lino Elias MD PCP: Dr. Gio Ricketts MD Status:REG ER Location: ED HPI [...] anesthesia, no loss of bowel or bladder. [facility] Medical History Liver disease Loss of [...] 1,000 mg tablet 1,000 mg PO BIDCM 01/18/21 03/22/2 4 History insulin regular hum U-500 conc [...] H/O colonoscop (more content not included)... Normal [facility] HIP, UNI W/ Pelvis 2-3 Views on 09-02-2024 HIP, UNI W/ Pelvis 2-3 Views [facility] Imaging Services [address] [place], [place] [id number] HIP, UNI W/ Pelvis 2-3 Views MR#: [id number] Acct: [id number] Name: MELANIE RESTREPO NATHANIEL Rep #: [id number] : 1965 F 59 From: Rik Paiz MD PCP: Dr. Gio Ricketts MD Status: PRE ER Study: HIP, UNI W/ Pelvis 2-3 Views Date of Exam: Exam# [id number] Ordering Dr: Lino Elias MD PROCEDURE: HIP, [...] CHRISTOPHER CC: Dr. Lino Elias MD; Dr. Gio Ricketts MD Hot Room Attendant: Signed Normal [facility] Lumbar Spine 2 or 3 Viewson 09-02-2024 Lumbar Spine 2 or 3 Views [facility] Imaging Services [address] [place], [place] [address] Lumbar Spine 2 or 3 Views MR#: [id number] Acct: [id number] Name: JHONATAN RESTREPOQUELINE NATHANIEL Rep #: [id number] : 1965 F 59 From: Rik Paiz MD PCP: Dr. Gio Ricketts MD Status: PRE ER Study: Lumbar Spine 2 or 3 Views Date of Exam: Exam# [id number] Ordering Dr: Lino Elias MD PROCEDURE: LUMBAR [...] CHRISTOPHER CC: Dr. Lino Elias MD; Dr. Gio Ricketts MD Hot Room Attendant: Signed Normal [facility] L5000.0010on 04-29-2024 BNP Normal [facility] Comment on above: Result Comment: TEST RESULTS LIMITS B-Type Natriuretic Peptide 29.2 pg/mL 0.0-100.0 Siemens ADVIA Centaur XP methodology TESTING PERFORMED AT [facility]. ORIGINAL REPORT ON FILE IN LAB CONTAINS ADDITIONAL TEST SITE INFORMATION. Performed By: #### M 100.678 #### [facility] [address] [facility] [place], [place], [address] CBC W/Diff, Automatedon - PATH REV Reviewed Normal [facility] Comment on above: Result Comment: Panc ytopenia. Leukopenia and neutropenia.Normocytic anemia. MODERATE Thrombocytopenia. Clinical correlation necessary. Travis Jerry M.D. 04/24/24 AMENDED REPORT 04/24/24 1340 PATH REV previously reported as: Xochitl kaufman Performed By: #### M 100.678 #### [facility] [address] [facility] [place], [address] 12 Lead EKGon 04-23-2024 12 Lead EKG [facility] Cardiovascular Services [address] [place] [address] 12 Lead EKG 04/23/24 1133 MR#: [id number] Acct: [id number] Name: MELANIE RESTREPO Rep #: [id number] : 1965 58 From: Ray Cheney MD Attending Dr: Status: DEP ER [...] anterior fascicular block Abnormal ECG Confirmed by Ray Cheney ([id number]), publication editor AMADO KENNEDY ([id number]) on 04/25/2024 1:32:02 PM Referred By: Confirmed By:Ray Cheney 04/25/24 1332 Date Ray Cheney MD CC: Dr. Rc Freeman DO; Dr. Gio Ricketts MD Signed Normal [facility] Basic Metabolic Profile (BMP )on 04-23-2024 BUN/CRE 9.4 RATIO Low 10-20 [facility] Comment on above: Order Comment: 1Y Performed By: #### M 100.678 #### [facility] [address] [place], [address] CA,Total 9.4 mg/dL Normal 8.5-10.1 [facility] Comment on above: Order Comment: 1Y Performed By: #### M 100.678 #### [facility] [address] [place], [address] Chloride [Moles/Vol] 100 mmol/L Normal 98-107 [facility] Comment on above: Order Comment: 1Y Performed By: #### M 100.678 #### [facility] [address] [place], [address] CO2 [Moles/Vol] 28.0 mmol/L Normal 21.0-32.0 [facility] Comment on above: Order Comment: 1Y Performed By: #### M 100.678 #### [facility] [address] [place], [address] Creatinine [Mass/Vol] 1.06 mg/dL High 0.55-1.02 [facility] Comment on above: Order Comment: 1Y Result Comment: The validity of the calculated GFR GFRAA in patients over 70 years has not been determined. Clinical correlation is essential. Performed By: #### M 100.678 #### [facility] [address] [place], [address] ECRCL 77.03 ml/min Normal [facility] Comment on above: Order Comment: 1Y Performed By: #### M 100.678 #### [facility] [address] [place], [address] EST GFR - AA 69 mL/min Normal >60 [facility] Comment on above: Order Comment: 1Y Result Comment: Afri can Scottish GFR Calc Performed By: #### M 100.678 #### [facility] [address] [place], [address] GAP 6 Normal 5-15 [facility] Comment on above: Order Comment: 1Y Performed By: #### M 100.678 #### [facility] [address] [place], [address] GFR/1.73 sq M.predicted among non-blacks MDRD (S/P/Bld) [Vol rate/Area] 57 mL/min/{1.73_m2} Low >60 [facility] Comment on above: Order Comment: 1Y Result Comment: Non- GFR Calc Performed By: #### M 100.678 #### [facility] [address] [place], [address] Glucose [Mass/Vol] 416 mg/dL High 74-106 [facility] Comment on above: Order Comment: 1Y Result Comment: Gluc ose result greater than or equal to 200 mg/dL suggests DIABETES MELLITUS per A.D.A. criteria. Performed By: #### M 100.678 #### [facility] [address] [place] [place], [address] Potassium [Moles/Vol] 4.0 mmol/L Normal 3.5-5.1 [facility] Comment on above: Order Comment: 1Y Performed By: #### M 100.678 #### [facility] [address] [place], [address] Sodium [Moles/Vol] 134 mmol/L Low 136-145 [facility] Comment on above: Order Comment: 1Y Performed By: #### M 100.678 #### [facility] [address] [place], [address] Urea nitrogen [Mass/Vol] 10 mg/dL Normal 7-18 [facility] Comment on above: Order Comment: 1Y Performed By: #### M 100.678 #### [facility] [address] [place], [address] Chest PA and Lateralon 04-23 Chest PA and Lateral [facility] [address] [place] [address] Chest PA and Lateral MR#: [id number] Acct: [id number] Name: MELANIE RESTREPO Rep #: [id number] : 1965 F 58 From: Avtar Lezama MD PCP: Dr. Gio Ricketts MD Status: REG ER Study: Chest PA and Lateral Date of Exam: 04/23/24 Exam# [id number] Ordering Dr: Rc Freeman DO [id number] STUDY: X-RAY CHEST REASON FOR EXAM: Female, [...] , CC: Dr. Rc Freeman DO; Dr. Gio Ricketts MD Hot Room Attendant: Signed Normal [facility] Emergency Department Summary on 04-23-2024 Emergency Department Summary [facility] Medical Records Department [address] [place] [address] Emergency Department Summary 04/23/24 MR#: [id number] Acct: [id number] Name: MELANIE RESTREPO Rep #: [id number] : 1965 58 From: Rc Freeman DO PCP: Dr. Gio Ricketts MD Status:DEP ER Location: ED HPI [...] maintenance inhaler. She has never seen a sampling theory teacher. She is a previous tobacco abuser. Denies [...] intact Psych: Cooperative, appropriate mood and affect [facility] Medical History Liver disease Loss of [...] #10 tabs (more content not included)... Normal [facility] L501.4020on 04-23-2024 TROPONIN-I HS 13 pg/mL Normal 3.0-54.0 [facility] Comment on above: Result Comment: Plea se Note: New Test Units and Gender Specific Reference Ranges. For more information see Policy Stat Procedure [place] High Sensitivity Troponin (TNIH) and attachments. Performed By: #### L 500.3400, L500.2500, L100.0100 #### [facility] [address] [place], [address] L501.5425on 04-23-2024 TROPONIN-I HS 15 pg/mL Normal 3.0-54.0 [facility] Comment on above: Order Comment: 1Y Result Comment: Plea se Note: New Test Units and Gender Specific Reference Ranges. For more information see Policy Stat Procedure [place] High Sensitivity Troponin (TNIH) and attachments. Performed By: #### M 100.678 #### [facility] [address] [place], [address] M100.678on 04-23-2024 M100.678 Pending SARS-CoV-2 (COVID 19) Negative INFLUENZA A Negative INFLUENZA B Negative RSV PCR Negative Normal [facility] Comment on above: Performed By: #### M 100.678 #### [facility] [address] [place], [address] CBC W/Diff, Automatedon 03-12 PATH REV Reviewed Normal [facility] Comment on above: Result Comment: Panc ytopenia. Leukopenia and neutropenia. Normocytic anemia. MODERATE Thrombocytopenia. Clinical correlation necessary. Travis Jerry M.D. 03/24/24 AMENDED REPORT 03/24/24 0857 PATH REV previously reported as: November mandeep Performed By: #### L 500.3400, L500.2500, L100.0100 #### [facility] [address] [place], [address] Basic Metabolic Profile (BMP )on 03-22-2024 BUN/CRE 9.3 RATIO Low 10-20 [facility] Comment on above: Performed By: #### L 500.3400, L500.2500, L100.0100 #### [facility] [address] [place], [address] CA,Total 9.9 mg/dL Normal 8.5-10.1 [facility] Comment on above: Performed By: #### L 500.3400, L500.2500, L100.0100 #### [facility] [address] [place], [address] Chloride [Moles/Vol] 104 mmol/L Normal 98-107 [facility] Comment on above: Performed By: #### L 500.3400, L500.2500, L100.0100 #### [facility] [address] [place], [address] CO2 [Moles/Vol] 28.0 mmol/L Normal 21.0-32.0 [facility] Comment on above: Performed By: #### L 500.3400, L500.2500, L100.0100 #### [facility] [address] [place], [address] Creatinine [Mass/Vol] 1.07 mg/dL High 0.55-1.02 [facility] Comment on above: Result Comment: The validity of the calculated GFR GFRAA in patients over 70 years has not been determined. Clinical correlation is essential. Performed By: #### L 500.3400, L500.2500, L100.0100 #### [facility] [address] [place], [address] EST GFR - AA 68 mL/min Normal >60 [facility] Comment on above: Result Comment: Afri can Scottish GFR Calc Performed By: #### L 500.3400, L500.2500, L100.0100 #### [facility] [address] [place], [address] GAP 7 Normal 5-15 [facility] Comment on above: Performed By: #### L 500.3400, L500.2500, L100.0100 #### [facility] [address] [place], [address] GFR/1.73 sq M.predicted among non-blacks MDRD (S/P/Bld) [Vol rate/Area] 56 mL/min/{1.73_m2} Low >60 [facility] Comment on above: Result Comment: Non- GFR Calc Performed By: #### L 500.3400, L500.2500, L100.0100 #### [facility] [address] [place], [address] Glucose [Mass/Vol] 190 mg/dL High 74-106 [facility] Comment on above: Result Comment: Fast ing Glucose result greater than or equal to 126 mg/dL suggests DIABETES MELLITUS per A.D.A. criteria. Performed By: #### L 500.3400, L500.2500, L100.0100 #### [facility] [address] [place], [address] Potassium [Moles/Vol] 4.2 mmol/L Normal 3.5-5.1 [facility] Comment on above: Performed By: #### L 500.3400, L500.2500, L100.0100 #### [facility] [address] [place], [address] Sodium [Moles/Vol] 139 mmol/L Normal 136-145 [facility] Comment on above: Performed By: #### L 500.3400, L500.2500, L100.0100 #### [facility] [address] [place], [address] Urea nitrogen [Mass/Vol] 10 mg/dL Normal 7-18 [facility] Comment on above: Performed By: #### L 500.3400, L500.2500, L100.0100 #### [facility] [address] [place], [address] Chest PA and Lateralon 03-22 Chest PA and Lateral [facility] Imaging Services [address] [place] [address] Chest PA and Lateral MR#: [id number] Acct: [id number] Name: MELANIE RESTREPO Rep #: [id number] : 1965 F 58 From: Giovanni wang MD PCP: Dr. Gio Ricketts MD Status: [facility] ER Study: Chest PA and Lateral Date of Exam: 03/22/24 Exam# [id number] Ordering Dr: Alfonso Covarrubias MD [id number] STUDY: X-RAY CHEST REASON FOR EXAM: Female, [...] 10:16 EDT Reading Location ID and State: [address] [place] [address] , Service support , CC: Dr. Gio Ricketts MD; Dr. Alfonso Covarrubias MD Hot Room Attendant: Signed Normal [facility] Emergency Department Summary on 03-22-2024 Emergency Department Summary [facility] Medical Records Department [address] [place] [address] Emergency Department Summary 03/22/24 MR#: [id number] Acct: [id number] Name: MELANIE RESTREPO Rep #: [id number] : 1965 58 From: Alfonso Covarrubias MD PCP: Dr. Gio Ricketts MD Status:REG ER Location: ED HPI [...] Yes (Diagnosed with COVID.) Recent Illness/Hospitalization: No [facility] Medical History Liver disease Loss of hearing [...] @ 0 (more content not included)... Normal [facility] M100.678on 03-22-2024 M100.678 Pending SARS-CoV-2 (COVID 19) Negative INFLUENZA A Negative INFLUENZA B Negative RSV PCR Negative Normal [facility] Comment on above: Performed By: #### L 500.3400, L500.2500, L100.0100 #### [facility] [address] [place], [place], [id number] CBC W Auto Differential pane l (Bld)Ordered By: Gina Márquez on 02-19-2024 Erythrocyte distribution width (RBC) [Ratio] 15.3 % High 11.5 - 15.0 % [facility] Hematocrit (Bld) [Volume fraction] 35.4 % 35.0 - 47.0 % [facility] Hemoglobin (Bld) [Mass/Vol] 11.5 g/dL Low 11.7 - 16.0 g/dL [facility] Interpretation and review of laboratory results Abnormal [facility] IPF 3 [facility] MCH (RBC) [Entitic mass] 27.1 pg 26.0 - 34.0 pg [facility] MCHC (RBC) [Mass/Vol] 32.5 % 30.5 - 36.0 % [facility] MCV (RBC) [Entitic vol] 83.3 fL 77.0 - 99.0 fL [facility] Platelet mean volume (Bld) [Entitic vol] 10.6 fL 9.0 - 12.7 fL [facility] Platelets (Bld) [#/Vol] 57 10*3/uL Low 140 - 440 10*3/uL [facility] RBC (Bld) [#/Vol] 4.25 10*6/uL 3.80 - 5.2 0 10*6/uL [facility] WBC (Bld) [#/Vol] 2.4 10*3/uL Low 3.6 - 10.7 10*3/uL [facility] CT Head WO contraston 2023 No evidence of an acute intracranial process. Report Dictated on Electronically Signed By: Leonardo Watts MD Electronically Signed Date/Time: 02/19/2024 12:54 PM EDT [facility] [employer] [facility] Patient Name: MELANIE REA : 1965 [...] calcification of the carotid siphons is noted. [facility] Leonardo Watts MD - 02/19/2024 Patient Name: MELANIE TOVAR : 1965 Exam Date/Time: 02/19/2024 12:45 Procedure: CT HEAD WO IV CONTRAST Ordering Provider: VORHIES, , DORI Reason For Exam: headache CT HEAD WITHOUT [...] Electronically Signed Date/Time: 02/19/2024 12:54 PM EDT [facility] Radiology Study observation (narrative) [facility] CT Head WO contrastOrdered B y: Leonardo Watts on 02-19-2024 [facility] Work Phone: Comprehensive metabolic 1998 panelon 02-19-2024 Albumin [Mass/Vol] 3.6 g/dL 3.5 - 5.0 g/dL [facility] ALP [Catalytic activity/Vol] 102 U/L 38 - 126 U/L [facility] ALT [Catalytic activity/Vol] 30 U/L 0 - 34 U/L [facility] Anion gap [Moles/Vol] 8 mmol/L 3 - 13 mmol/L [facility] AST [Catalytic activity/Vol] 35 U/L 15 - 46 U/L [facility] Bilirubin [Mass/Vol] 1.4 mg/dL High 0.2 - 1 .3 mg/dL [facility] Calcium [Mass/Vol] 9.2 mg/dL 8.4 - 10. 4 mg/dL [facility] Chloride [Moles/Vol] 104 mmol/L 98 - 10 7 mmol/L [facility] CO2 [Moles/Vol] 26 mmol/L 22 - 30 mmol/L [facility] Creatinine [Mass/Vol] 0.85 mg/dL 0.52 - 1.04 mg/dL [facility] GFR/1.73 sq M.predicted (S/P/Bld) [Vol rate/Area] 80.5 mL/min - PINF [facility] Comment on above: Calculation based on the Chronic Kidney Disease Epidemiology Collaboration (CKD-EPI) equation refit without adjustment for race Glucose [Mass/Vol] 152 mg/dL High 70 - 100 mg/dL [facility] Interpretation and review of laboratory results Abnormal [facility] Potassium [Moles/Vol] 4.1 mmol/L 3.5 - 5.1 mmol/L [facility] Protein [Mass/Vol] 7.2 g/dL 6.3 - 8.2 g/dL [facility] Sodium [Moles/Vol] 138 mmol/L 135 - 145 mmol/L [facility] Urea nitrogen [Mass/Vol] 10 mg/dL 7 - 17 mg/dL [facility] Laboratory - Microbiology an d Antimicrobial susceptibilityon 02-19-2024 FLUAV RNA EVERETTE+probe Ql (Resp) Not detected Not Detected [facility] FLUBV RNA EVERETTE+probe Ql (Resp) Not detected Not Detected [facility] RSV RNA EVERETTE+probe Ql (Resp) Not detected Not Detected [facility] SARS-CoV-2 (COVID-19) RNA EVERETTE+probe Ql (Resp) Not detected Not Detected [facility] SARS-CoV-2 (COVID-19) RNA EVERETTE+probe Ql (Unsp spec) Methodology: real-time, RT-PCR The SARS-CoV-2, Flu A/B, and RSV Combo assay is intended for in vitro diagnostic use under the FDA Emergency Use Authorization (EUA). This test has not been FDA cleared or approved. In compliance with this authorization, please visit www.fda.gov/media/202070/d ownload or www.fda.gov/media/515632/d ownload to access the applicable information sheets. [facility] Manual differential performe d Ql (Bld)on 02-19-2024 Anisocytosis Ql (Bld) Slight Abnormal (none) [facility] Cells Counted Total (Bld) [#] 100 {cells} [facility] Differential Method Manual differential performed [facility] Interpretation and review of laboratory results Abnormal [facility] Leukocyte morphology finding Nom (Bld) Normal [facility] Lymphocytes (Bld) [#/Vol] 0.5 10*3/uL Low 1.0 - 4.3 10*3/uL [facility] Lymphocytes Manual 19 [facility] Lymphocytes/100 WBC (Bld) 19 % 15 - 45 % [facility] Monocytes (Bld) [#/Vol] 0.2 10*3/uL 0.0 - 0.9 10*3/uL [facility] Monocytes Manual 7 [facility] Monocytes/100 WBC (Bld) 7 % 5 - 13 % [facility] Neutrophils (Bld) [#/Vol] 1.8 10*3/uL 1.8 - 7.0 10*3/uL [facility] Neutrophils Manual 74 [facility] Ovalocytes LM Ql (Bld) Slight Abnormal (none) [facility] Platelet morphology finding Nom (Bld) Normal [facility] Polychromasia LM Ql (Bld) Slight Abnormal (none) [facility] Segmented neutrophils/100 WBC (Bld) 74 % 38 - 82 % [facility] WBC corrected for nucl RBC (Bld) [#/Vol] 2.4 10*3/uL Low 3.6 - 10.7 10*3/uL [facility] SARS-CoV-2, Flu A/B, and RSV Comboon 02-19-2024 Interpretation and review of laboratory results Normal [facility] Urinalysis complete panel (U )on 02-19-2024 Bacteria LM.HPF (Urine sed) [#/Area] Few Abnormal Negative /HPF [facility] Bilirubin Ql (U) Negative Negative mg/dL [facility] Clarity (U) Turbid Abnormal Clear [facility] Color (U) Yellow Lt. Yellow [facility] Epithelial cells.squamous LM.HPF (Urine sed) [#/Area] 26-50 Abnormal [facility] Glucose Ql (U) Normal Normal (<70) mg/dL [facility] Hemoglobin Ql (U) 0.03 mg/dL Abnormal Negative [facility] Interpretation and review of laboratory results Abnormal [facility] Ketones (U) [Mass/Vol] Negative Negative mg/dL [facility] Leukocyte esterase Test strip Ql (U) 250 Abnormal Negative Kevin/uL [facility] Mucus LM.HPF (Urine sed) [#/Area] Few Negative /LPF [facility] Nitrite Ql (U) Negative Negative [facility] pH (U) 6.0 [pH] 5.0 - 8.0 pH [facility] Protein (U) [Mass/Vol] 100 mg/dL Abnormal Negative [facility] RBC LM.HPF (Urine sed) [#/Area] 3-5 Abnormal [facility] Specific gravity (U) [Rel density] 1.015 1.005 - 1.030 [facility] Urobilinogen (U) [Mass/Vol] Normal Normal (0-1) mg/dL [facility] WBC LM.HPF (Urine sed) [#/Area] 6-10 Abnormal [facility] Laboratory - Chemistry and C hemistry - challengeOrdered By: Kati Godfrey on 12-13-2023 Glucose [Mass/Vol] 150 mg/dL [facility] - Chemistry and C hemistry - challengeon 12-13-2023 Glucose [Mass/Vol] 150 mg/dL High 70 - 100 mg/dL [facility] Glucose [Mass/Vol] 126 mg/dL High 70 - 100 mg/dL [facility] No Panel InformationOrdered By: Kati Godfrey on 12-13-2023 Interpretation and review of laboratory results Normal [facility] Radiology Study observation (narrative) [facility] No Panel Informationon 12-12 Interpretation and review of laboratory results Abnormal [facility] Performed by: [facility], [address] [place] [address] CLIA ID: [id number] [facility] Interpretation and review of laboratory results Abnormal [facility] Performed by: [place] [facility], [address] [place] [id number] CLIA ID: [id number] [facility] Radiology Study observation (narrative) [facility] Radiology Study observation (narrative) [facility] Laboratory - Chemistry and C hemistry - challengeon 12-04-2023 Glucose [Mass/Vol] 122 mg/dL High 70 - 100 mg/dL [facility] Glucose [Mass/Vol] 133 mg/dL High 70 - 100 mg/dL [facility] No Panel Informationon 12-03 Interpretation and review of laboratory results Abnormal [facility] Performed by: [place] [facility], [address] [facility] [address] CLIA ID: [id number] [facility] Interpretation and review of laboratory results Abnormal [facility] Performed by: [place] [facility], [address] [facility] [address] CLIA ID: [id number] [facility] Radiology Study observation (narrative) [facility] Radiology Study observation (narrative) [facility] CBC W Auto Differential pane l (Bld)Ordered By: Jennifer Walters on 10-12-2023 Erythrocyte distribution width (RBC) [Ratio] 15.4 % High 11.5 - 15.0 % [facility] Hematocrit (Bld) [Volume fraction] 36.8 % 35.0 - 47.0 % [facility] Hemoglobin (Bld) [Mass/Vol] 11.6 g/dL Low 11.7 - 16.0 g/dL [facility] Interpretation and review of laboratory results Abnormal [facility] IPF 4 [facility] MCH (RBC) [Entitic mass] 26.4 pg 26.0 - 34.0 pg [facility] MCHC (RBC) [Mass/Vol] 31.5 % 30.5 - 36.0 % [facility] MCV (RBC) [Entitic vol] 83.8 fL 77.0 - 99.0 fL [facility] Platelet mean volume (Bld) [Entitic vol] 10.9 fL 9.0 - 12.7 fL [facility] Platelets (Bld) [#/Vol] 65 10*3/uL Low 140 - 440 10*3/uL [facility] RBC (Bld) [#/Vol] 4.39 10*6/uL 3.80 - 5.2 0 10*6/uL [facility] WBC (Bld) [#/Vol] 4.0 10*3/uL 3.6 - 10.7 10*3/uL [facility] Comprehensive metabolic 1998 panelOrdered By: Nesha Giron on 10-12-2023 Albumin [Mass/Vol] 3.6 g/dL 3.5 - 5.0 g/dL [facility] ALP [Catalytic activity/Vol] 92 U/L 38 - 126 U/L [facility] ALT [Catalytic activity/Vol] 27 U/L 0 - 34 U/L [facility] Anion gap [Moles/Vol] 8 mmol/L 3 - 13 mmol/L [facility] AST [Catalytic activity/Vol] 29 U/L 15 - 46 U/L [facility] Bilirubin [Mass/Vol] 1.1 mg/dL 0.2 - 1 .3 mg/dL [facility] Calcium [Mass/Vol] 9.2 mg/dL 8.4 - 10. 4 mg/dL [facility] Chloride [Moles/Vol] 103 mmol/L 98 - 10 7 mmol/L [facility] CO2 [Moles/Vol] 23 mmol/L 22 - 30 mmol/L [facility] Creatinine [Mass/Vol] 0.81 mg/dL 0.52 - 1.04 mg/dL [facility] GFR/1.73 sq M.predicted MDRD (S/P/Bld) [Vol rate/Area] 85.3 mL/min/{1.73_m2} - PINF [facility] Comment on above: Calculation based on the Chronic Kidney Disease Epidemiology Collaboration (CKD-EPI) equation refit without adjustment for race Glucose [Mass/Vol] 248 mg/dL High 70 - 100 mg/dL [facility] Interpretation and review of laboratory results Abnormal [facility] Potassium [Moles/Vol] 4.8 mmol/L 3.5 - 5.1 mmol/L [facility] Protein [Mass/Vol] 7.3 g/dL 6.3 - 8.2 g/dL [facility] Sodium [Moles/Vol] 133 mmol/L Low 135 - 145 mmol/L [facility] Urea nitrogen [Mass/Vol] 22 mg/dL High 7 - 17 mg/dL [facility] Laboratory - Chemistry and C hemistry - challengeon 10-12-2023 Glucose [Mass/Vol] 337 mg/dL High 70 - 100 mg/dL [facility] Glucose [Mass/Vol] 273 mg/dL High 70 - 100 mg/dL [facility] Glucose [Mass/Vol] 273 mg/dL [facility] Glucose [Mass/Vol] 245 mg/dL High 70 - 100 mg/dL [facility] Glucose [Mass/Vol] 245 mg/dL [facility] Glucose [Mass/Vol] 218 mg/dL High 70 - 100 mg/dL [facility] Glucose [Mass/Vol] 218 mg/dL [facility] Cortisol [Mass/Vol] 21.4 ug/dL [facility] Glucose [Mass/Vol] 207 mg/dL High 70 - 100 mg/dL [facility] Glucose [Mass/Vol] 207 mg/dL [facility] Glucose [Mass/Vol] 126 mg/dL High 70 - 100 mg/dL [facility] Glucose [Mass/Vol] 126 mg/dL [facility] Glucose [Mass/Vol] 90 mg/dL 70 - 100 mg/dL [facility] Glucose [Mass/Vol] 90 mg/dL [facility] Laboratory - Coagulationon 0 10-12-2023 aPTT Coag (PPP) [Time] 22.0 s 20.0 - 30.5 s [facility] INR Coag (PPP) [Relative time] 1.1 {INR} 0.9 - 1.1 [facility] Comment on above: Recommended Anticoag ulant Therapy: [...] [Time] 11.9 s 9.0 - 12.0 s [facility] - Hematology and Cell countson 10-12-2023 Band form neutrophils (Bld) [#/Vol] 0.0 10*3/uL NINF - 0.0 10*3/uL [facility] Band form neutrophils/100 WBC (Bld) 1 % High NINF - 0 % [facility] Basophils (Bld) [#/Vol] 0.1 10*3/uL 0.0 - 0.2 10*3/uL [facility] Basophils/100 WBC (Bld) 2 % 0 - 2 % [facility] Lymphocytes (Bld) [#/Vol] 0.0 10*3/uL Low 1.0 - 4.3 10*3/uL [facility] Lymphocytes/100 WBC (Bld) 1 % Low 15 - 45 % [facility] Monocytes (Bld) [#/Vol] 0.0 10*3/uL 0.0 - 0.9 10*3/uL [facility] Monocytes/100 WBC (Bld) 1 % Low 5 - 13 % [facility] Neutrophils (Bld) [#/Vol] 3.9 10*3/uL 1.8 - 7.5 10*3/uL [facility] RBC morphology finding Nom (Bld) Normal [facility] Segmented neutrophils/100 WBC (Bld) 96 % High 38 - 82 % [facility] Laboratory - Serology - non- microon 10-12-2023 Cyclic citrullinated peptide IgG Qn U/mL 0.0 - 4.9 U/mL [facility] Comment on above: 0.0 - 4.9 NEGATIVE >= 5.0 POSITIVE No Panel Informationon 10-11 Interpretation and review of laboratory results Abnormal [facility] Performed by: [facility], [address] [place] [id number] CLIA ID: [id number] [facility] Interpretation and review of laboratory results Abnormal [facility] Performed by: [facility], [address] [place], [place] [id number] CLIA ID: [id number] [facility] Interpretation and review of laboratory results Normal [facility] Interpretation and review of laboratory results Abnormal [facility] Performed by: [facility], [address] [place] [id number] CLIA ID: [id number] [facility] Interpretation and review of laboratory results Normal [facility] Interpretation and review of laboratory results Normal [facility] Interpretation and review of laboratory results Abnormal [facility] Performed by: [facility], [address] [place] [id number] CLIA ID: [id number] [facility] Interpretation and review of laboratory results Normal [facility] Atypical Lymphocytes Manual [facility] Bands Manual 1 [facility] Basophils Manual 2 [facility] Blasts Manual [facility] Eosinophils Manual [facility] Interpretation and review of laboratory results Abnormal [facility] Lymphocytes Manual 1 [facility] Metamyelocytes Manual [facility] Monocytes Manual 1 [facility] Myelocytes Manual [facility] Neutrophils Manual 96 [facility] Promyelocytes Manual [facility] Unclassified Cells, Manual [facility] Interpretation and review of laboratory results Normal [facility] Sinus rhythm with no rmal rate, intervals and QRS duration. No acute ischemic changes. Nonspecific INTRAVENTRICULAR CONDUCTION DELAY, similar to prior No acute ischemic changes Similar to previous EKG Electronically Signed On 10-12-2023 04:24:23 EDT by Ray Morales, DO - 10/12/2023 IMPRESSION: Sinus rhythm with normal rate, intervals and QRS duration. No acute ischemic changes. Nonspecific INTRAVENTRICULAR CONDUCTION DELAY, similar to prior No acute ischemic changes Similar to previous EKG Electronically Signed On 10-12-2023 04:24:23 EDT by Ray Ortiz [facility] Before 10am 4.5-22.7 ug/dL After 5pm 1.7-14.1 ug/dL [facility] Interpretation and review of laboratory results Abnormal [facility] Performed by: [facility], [address] [facility] [place] [address] CLIA ID: [id number] [facility] Interpretation and review of laboratory results Normal [facility] Interpretation and review of laboratory results Abnormal [facility] Performed by: [facility], [address], [facility] [id number] CLIA ID: [id number] [facility] Interpretation and review of laboratory results Normal [facility] Interpretation and review of laboratory results Normal [facility] Performed by: [facility], [address], [facility] [address] CLIA ID: [id number] [facility] Interpretation and review of laboratory results Normal [facility] Radiology Study observation (narrative) [facility] Radiology Study observation (narrative) [facility] Radiology Study observation (narrative) [facility] Radiology Study observation (narrative) [facility] Radiology Study observation (narrative) [facility] Radiology Study observation (narrative) [facility] Radiology Study observation (narrative) [facility] Radiology Study observation (narrative) [facility] Radiology Study observation (narrative) [facility] Radiology Study observation (narrative) [facility] Radiology Study observation (narrative) [facility] Radiology Study observation (narrative) [facility] Radiology Study observation (narrative) [facility] No Panel InformationOrdered By: Ray Ortiz on 10-12-2023 P [place] 57 degrees [facility] Work Phone: CT Interval 192 ms [facility] Work Phone: QRS [place] -62 degrees [facility] Work Phone: QRSD Interval 123 ms [facility] Work Phone: QT Interval 443 ms [facility] Work Phone: QTC Interval 479 ms [facility] Work Phone: T Wave [place] 66 degrees [employer] Work Phone: [employer] Work Phone: Vital signsOrdered By: Mynor Ortiz on 10-12-2023 Heart rate 70 /min bpm [employer] Work Phone: CBC W Auto Differential pane l (Bld)Ordered By: Francisca Boo on 10-11-2023 Erythrocyte distribution width (RBC) [Ratio] 15.5 % High 11.5 - 15.0 % [employer] Hematocrit (Bld) [Volume fraction] 41.4 % 35.0 - 47.0 % [employer] [facility] Hemoglobin (Bld) [Mass/Vol] 13.1 g/dL 11.7 - 16.0 g/dL [employer] [facility] Interpretation and review of laboratory results Abnormal [employer] IPF 4 [employer] [facility] MCH (RBC) [Entitic mass] 26.3 pg 26.0 - 34.0 pg [employer] [facility] MCHC (RBC) [Mass/Vol] 31.6 % 30.5 - 36.0 % [employer] [facility] MCV (RBC) [Entitic vol] 83.1 fL 77.0 - 99.0 fL [employer] [facility] Platelet mean volume (Bld) [Entitic vol] 9.8 fL 9.0 - 12.7 fL [employer] [facility] Platelets (Bld) [#/Vol] 74 10*3/uL Low 140 - 440 10*3/uL [employer] [facility] RBC (Bld) [#/Vol] 4.98 10*6/uL 3.80 - 5.2 0 10*6/uL [employer] [facility] WBC (Bld) [#/Vol] 6.1 10*3/uL 3.6 - 10.7 10*3/uL [employer] [facility] CT Head WO contraston 2023 1. No acute intracranial finding. Report Dictated on Electronically Signed By: Juan A Bo MD Electronically Signed Date/Time: 10/11/2023 9:02 PM T [facility] RADIOLOGY SYSTEM [facility] 1965 [id number] Exam Date/Time: 10/11/2023 20:59 Procedure: CT HEAD [...] cisterns. No evidence of acute cortical infarct. [facility] Juan A Bo MD - 10/11/2023 [facility] Name: [facility] 1965 [id number] Exam Date/Time: 10/11/2023 20:59 Procedure: CT HEAD [...] Electronically Signed Date/Time: 10/11/2023 9:02 PM EDT [employer] [facility] Radiology Study observation (narrative) [employer] CT Head WO contrastOrdered B y: Juan A Bo on 10-11-2023 [employer] Work Phone: Comprehensive metabolic 1998 panelOrdered By: Flavia Villaseñor on 10-11-2023 Albumin [Mass/Vol] 4.4 g/dL 3.5 - 5.0 g/dL [employer] [facility] ALP [Catalytic activity/Vol] 111 U/L 38 - 126 U/L [employer] [facility] ALT [Catalytic activity/Vol] 30 U/L 0 - 34 U/L [facility] Anion gap [Moles/Vol] 10 mmol/L 3 - 13 mmol/L [facility] AST [Catalytic activity/Vol] 31 U/L 15 - 46 U/L [facility] Bilirubin [Mass/Vol] 1.3 mg/dL 0.2 - 1 .3 mg/dL [facility] Calcium [Mass/Vol] 9.9 mg/dL 8.4 - 10. 4 mg/dL [facility] Chloride [Moles/Vol] 104 mmol/L 98 - 10 7 mmol/L [facility] CO2 [Moles/Vol] 26 mmol/L 22 - 30 mmol/L [facility] Creatinine [Mass/Vol] 0.87 mg/dL 0.52 - 1.04 mg/dL [facility] GFR/1.73 sq M.predicted MDRD (S/P/Bld) [Vol rate/Area] 78.3 mL/min/{1.73_m2} - PINF [facility] Comment on above: Calculation based on the Chronic Kidney Disease Epidemiology Collaboration (CKD-EPI) equation refit without adjustment for race Glucose [Mass/Vol] 27 mg/dL Critically low 70 - 10 0 mg/dL [facility] Interpretation and review of laboratory results Abnormal [facility] Potassium [Moles/Vol] 3.4 mmol/L Low 3.5 - 5.1 mmol/L [facility] Protein [Mass/Vol] 8.7 g/dL High 6.3 - 8.2 g/dL [facility] Sodium [Moles/Vol] 140 mmol/L 135 - 145 mmol/L [facility] Urea nitrogen [Mass/Vol] 19 mg/dL High 7 - 17 mg/dL [facility] Laboratory - Chemistry and C hemistry - challengeon 10-11-2023 Glucose [Mass/Vol] 108 mg/dL High 70 - 100 mg/dL [facility] Glucose [Mass/Vol] 129 mg/dL High 70 - 100 mg/dL [facility] Glucose [Mass/Vol] 54 mg/dL Low 70 - 100 mg/dL [facility] Glucose [Mass/Vol] 80 mg/dL 70 - 100 mg/dL [facility] Laboratory - Chemistry and C hemistry - challengeOrdered By: Pinky Copeland on 10-11-2023 Glucose [Mass/Vol] 108 mg/dL [facility] Laboratory - Hematology and Cell countson 10-11-2023 Lymphocytes (Bld) [#/Vol] 0.4 10*3/uL Low 1.0 - 4.3 10*3/uL [facility] Lymphocytes/100 WBC (Bld) 7 % Low 15 - 45 % [facility] Monocytes (Bld) [#/Vol] 0.7 10*3/uL 0.0 - 0.9 10*3/uL [facility] Monocytes/100 WBC (Bld) 11 % 5 - 13 % [facility] Neutrophils (Bld) [#/Vol] 4.9 10*3/uL 1.8 - 7.5 10*3/uL [facility] RBC morphology finding Nom (Bld) Normal [facility] Segmented neutrophils/100 WBC (Bld) 80 % 38 - 82 % [facility] Variant lymphocytes (Bld) [#/Vol] 0.1 10*3/uL High NINF - 0.0 10*3/uL [facility] Variant lymphocytes/100 WBC (Bld) 2 % High NINF - 0 % [facility] No Panel Informationon 10-10 Interpretation and review of laboratory results Abnormal [facility] Performed by: [facility], [address] [place] [id number] CLIA ID: [id number] [facility] Interpretation and review of laboratory results Abnormal [facility] Performed by: [facility], [address] [place] [id number] CLIA ID: [id number] [facility] Interpretation and review of laboratory results Abnormal [facility] Performed by: [facility], [address] [place] [id number] CLIA ID: [id number] [facility] Atypical Lymphocytes Manual 2 [facility] Bands Manual [facility] Basophils Manual [facility] Blasts Manual [facility] Eosinophils Manual [facility] Interpretation and review of laboratory results Abnormal [facility] Lymphocytes Manual 7 [facility] Metamyelocytes Manual [facility] Monocytes Manual 11 [facility] Myelocytes Manual [facility] Neutrophils Manual 81 [facility] Promyelocytes Manual [facility] Unclassified Cells, Manual [facility] Interpretation and review of laboratory results Normal [facility] Performed by: [facility], [address] [place] [id number] CLIA ID: [id number] [facility] Radiology Study observation (narrative) [facility] Radiology Study observation (narrative) [facility] Radiology Study observation (narrative) [facility] Radiology Study observation (narrative) [facility] No Panel InformationOrdered By: Pinky Copeland on 10-11-2023 Interpretation and review of laboratory results Normal [facility] Radiology Study observation (narrative) [facility] CBC W Auto Differential pane l (Bld)Ordered By: Amado Go on 09-30-2023 Basophils (Bld) [#/Vol] 0.0 10*3/uL 0.0 - 0.2 10*3/uL [facility] Basophils/100 WBC (Bld) 0.4 % 0.0 - 2.0 % [facility] Eosinophils (Bld) [#/Vol] 0.0 10*3/uL 0.0 - 0.5 10*3/uL [facility] Eosinophils/100 WBC (Bld) 0.0 % 0.0 - 6.0 % [facility] Erythrocyte distribution width (RBC) [Ratio] 15.4 % High 11.5 - 15.0 % [facility] Hematocrit (Bld) [Volume fraction] 35.6 % 35.0 - 47.0 % [facility] Hemoglobin (Bld) [Mass/Vol] 11.2 g/dL Low 11.7 - 16.0 g/dL [facility] Immature granulocytes (Bld) [#/Vol] 0.0 10*3/uL NINF - 0.1 10*3/uL [facility] Immature granulocytes/100 WBC (Bld) 1.2 % 0.0 - 2.0 % [facility] Interpretation and review of laboratory results Abnormal [facility] IPF 4 [facility] Lymphocytes (Bld) [#/Vol] 0.3 10*3/uL Low 1.0 - 4.3 10*3/uL [facility] Lymphocytes/100 WBC (Bld) 12.9 % Low 15.0 - 45.0 % [facility] MCH (RBC) [Entitic mass] 27.1 pg 26.0 - 34.0 pg [facility] MCHC (RBC) [Mass/Vol] 31.5 % 30.5 - 36.0 % [facility] MCV (RBC) [Entitic vol] 86.2 fL 77.0 - 99.0 fL [facility] Monocytes (Bld) [#/Vol] 0.2 10*3/uL 0.0 - 0.9 10*3/uL [facility] Monocytes/100 WBC (Bld) 8.3 % 5.0 - 13.0 % [facility] Neutrophils (Bld) [#/Vol] 1.9 10*3/uL 1.8 - 7.5 10*3/uL [facility] Neutrophils/100 WBC (Bld) 77.2 % 38.0 - 82.0 % [facility] Nucleated RBC/100 WBC (Bld) [Ratio] 0.0 % [facility] Platelet mean volume (Bld) [Entitic vol] 9.9 fL 9.0 - 12.7 fL [facility] Platelets (Bld) [#/Vol] 62 10*3/uL Low 140 - 440 10*3/uL [facility] RBC (Bld) [#/Vol] 4.13 10*6/uL 3.80 - 5.2 0 10*6/uL [facility] WBC (Bld) [#/Vol] 2.4 10*3/uL Low 3.6 - 10.7 10*3/uL [facility] Cobalamin (Vitamin B12) [Mas s/Vol]on 09-30-2023 Interpretation and review of laboratory results Abnormal [facility] Comprehensive metabolic 1998 panelon 09-30-2023 Albumin [Mass/Vol] 4.0 g/dL 3.5 - 5.0 g/dL [facility] ALP [Catalytic activity/Vol] 118 U/L 38 - 126 U/L [facility] ALT [Catalytic activity/Vol] 20 U/L 0 - 34 U/L [facility] Anion gap [Moles/Vol] 8 mmol/L 3 - 13 mmol/L [facility] AST [Catalytic activity/Vol] 30 U/L 15 - 46 U/L [facility] Bilirubin [Mass/Vol] 1.0 mg/dL 0.2 - 1 .3 mg/dL [facility] Calcium [Mass/Vol] 9.4 mg/dL 8.4 - 10. 4 mg/dL [facility] Chloride [Moles/Vol] 105 mmol/L 98 - 10 7 mmol/L [facility] CO2 [Moles/Vol] 28 mmol/L 22 - 30 mmol/L [facility] Creatinine [Mass/Vol] 1.01 mg/dL 0.52 - 1.04 mg/dL [facility] GFR/1.73 sq M.predicted MDRD (S/P/Bld) [Vol rate/Area] 65.5 mL/min/{1.73_m2} - PINF [facility] Comment on above: Calculation based on the Chronic Kidney Disease Epidemiology Collaboration (CKD-EPI) equation refit without adjustment for race Glucose [Mass/Vol] 199 mg/dL High 70 - 100 mg/dL [facility] Interpretation and review of laboratory results Abnormal [facility] Potassium [Moles/Vol] 4.1 mmol/L 3.5 - 5.1 mmol/L [facility] Protein [Mass/Vol] 7.9 g/dL 6.3 - 8.2 g/dL [facility] Sodium [Moles/Vol] 141 mmol/L 135 - 145 mmol/L [facility] Urea nitrogen [Mass/Vol] 15 mg/dL 7 - 17 mg/dL [facility] Ferritinon 09-30-2023 Ferritin [Mass/Vol] 18 ng/mL 11 - 264 ng/mL [facility] Ferritin [Mass/Vol]on 2023 Interpretation and review of laboratory results Normal [facility] Folateon 09-30-2023 Folate [Mass/Vol] 11.4 ng/mL 2.9 - PINF ng/mL [facility] Folate [Mass/Vol]on 09-30-19 Interpretation and review of laboratory results Normal [facility] Homocysteine, serumon 2023 Homocysteine [Moles/Vol] 13.9 umol/L High 4.7 - 12.6 umol/L [facility] Interpretation and review of laboratory results Abnormal [facility] Iron and Iron binding capaci ty panelon 09-30-2023 Interpretation and review of laboratory results Normal [facility] Iron [Mass/Vol] 60 ug/dL 37 - 170 ug/dL [facility] Iron binding capacity [Mass/Vol] 357 ug/dL 261 - 497 ug/dL [facility] Iron saturation [Mass fraction] 17 % 15 - 50 % [facility] LDH Lactate to pyruvate reac tion [Catalytic activity/Vol]on 09-30-2023 Interpretation and review of laboratory results Normal [facility] Lactate dehydrogenaseon 09-10 LDH Lactate to pyruvate reaction [Catalytic activity/Vol] 137 U/L 120 - 246 U/L [facility] No Panel Informationon 09-29 [facility] Reticulocytes panel (Bld)on 09-30-2023 Reticulocytes/100 RBC (Bld) 1.73 % [facility] Vitamin B12on 09-30-2023 Cobalamin (Vitamin B12) [Mass/Vol] 168 pg/mL Low 239 - 931 pg/mL [facility] Bacteria identified Cx Nom ( U)on 08-28-2023 [facility] CBC panel Auto (Bld)on 08-28 Erythrocyte distribution width (RBC) [Ratio] 15.7 % High 11.0 - 15.0 % [facility] Hematocrit (Bld) [Volume fraction] 36.1 % 35.0 - 45.0 % [facility] Hemoglobin (Bld) [Mass/Vol] 11.9 g/dL 11.7 - 15.5 g/dL [facility] MCH (RBC) [Entitic mass] 28.0 pg 27.0 - 33.0 pg [facility] MCHC (RBC) [Mass/Vol] 33.0 g/dL 32.0 - 36.0 g/dL [facility] MCV (RBC) [Entitic vol] 84.9 fL 80.0 - 100.0 fL [facility] Platelet mean volume (Bld) [Entitic vol] 10.7 fL 7.5 - 12.5 fL [facility] Platelets (Bld) [#/Vol] 58 10*3/uL Low [facility] RBC (Bld) [#/Vol] 4.25 10*6/uL [facility] WBC (Bld) [#/Vol] 3.1 10*3/uL Low [facility] Comprehensive metabolic 1998 panelon 08-28-2023 Albumin [Mass/Vol] 3.6 g/dL 3.6 - 5.1 g/dL [facility] Albumin/Globulin [Mass ratio] 1.1 {ratio} [facility] ALP [Catalytic activity/Vol] 120 U/L 37 - 153 U/L [facility] ALT [Catalytic activity/Vol] 32 U/L High 6 - 29 U/L [facility] AST [Catalytic activity/Vol] 26 U/L 10 - 35 U/L [facility] Bilirubin [Mass/Vol] 0.9 mg/dL 0.2 - 1 .2 mg/dL [facility] Calcium [Mass/Vol] 8.8 mg/dL 8.6 - 10. 4 mg/dL [facility] Chloride [Moles/Vol] 106 mmol/L 98 - 11 0 mmol/L [facility] CO2 [Moles/Vol] 26 mmol/L 20 - 32 mmol/L [facility] Creatinine [Mass/Vol] 0.90 mg/dL 0.50 - 1.03 mg/dL [facility] GFR/1.73 sq M.predicted among non-blacks MDRD (S/P/Bld) [Vol rate/Area] 75 mL/min/{1.73_m2} > OR = 60 mL/min/1.73m 2 [facility] Globulin (S) [Mass/Vol] 3.4 g/dL [facility] Glucose [Mass/Vol] 188 mg/dL High 65 - 99 mg/dL [facility] Comment on above: Fasting reference interval For someone without known diabetes, a glucose value >125 mg/dL indicates that they may have diabetes and this should be confirmed with a follow-up test. Potassium [Moles/Vol] 3.9 mmol/L 3.5 - 5.3 mmol/L [facility] Protein [Mass/Vol] 7.0 g/dL 6.1 - 8.1 g/dL [facility] Sodium [Moles/Vol] 140 mmol/L 135 - 146 mmol/L [facility] Urea nitrogen [Mass/Vol] 14 mg/dL 7 - 25 mg/dL [facility] Urea nitrogen/Creatinine [Mass ratio] SEE NOTE: [facility] Comment on above: Not Reported: BUN an d Creatinine are within reference range. Hemoglobin A1con 08-28-2023 HbA1c (Bld) [Mass fraction] 6.9 % High [facility] Comment on above: For someone without [...] 1996 panelon 4 Cholesterol [Mass/Vol] 157 mg/dL NIN - 200 mg/dL [facility] Cholesterol in HDL [Mass/Vol] 55 mg/dL > OR = 50 [facility] Cholesterol in LDL [Mass/Vol] 86 mg/dL mg/dL (calc) [facility] Comment on above: Reference range: <10 0 Desirable range <100 mg/dL for primary prevention; <70 mg/dL for patients with CHD or diabetic patients with > or = 2 CHD risk factors. LDL-C is now calculated using the Ulises-Seay calculation, which is a validated novel method providing better accuracy than the Friedewald equation in the estimation of LDL-C. Ulises HILTON et al. MUNA. 2013;310(19): 0403-6206 (http://education.Clarimedix/faq/WSH344) Cholesterol non HDL [Mass/Vol] 102 mg/dL [facility] Comment on above: For patients with di abetes plus 1 major ASCVD risk factor, treating to a non-HDL-C goal of <100 mg/dL (LDL-C of <70 mg/dL) is considered a therapeutic option. Cholesterol.total/Cho lesterol in HDL [Mass ratio] 2.9 {ratio} [facility] Triglyceride [Mass/Vol] 74 mg/dL [facility] - 150 mg/dL [facility] No Panel Informationon 08-28 Interpretation and review of laboratory results Abnormal [facility] Urine culture (clean catch)o n 08-28-2023 Bacteria identified Cx Nom (U) SEE NOTE Abnormal [facility] Comment on above: CULTURE, URINE, ROUTINE Micro Number: [id number] Test Status: Final Specimen Source: Urine, clean [...] (dipstick) panel (U)on 08-26-2023 Bilirubin, UA Small [facility] Blood, UA Small [facility] Glucose, UA Negative [facility] Interpretation and review of laboratory results Abnormal [facility] Ketones, POC (mg/dL) Negative [facility] Leukocytes, UA Trace [facility] Nitrite, UA Negative [facility] pH, UA 6.5 [facility] Protein, UA 100 [facility] Spec Grav, UA 1.015 [facility] Urobilinogen, UA 0.2 [facility] Radiology Study observation (narrative) [facility] Basic metabolic 1998 panelon 05-16-2023 Anion gap [Moles/Vol] 6 mmol/L 3 - 13 mmol/L [facility] Calcium [Mass/Vol] 9.4 mg/dL 8.4 - 10. 4 mg/dL [facility] Chloride [Moles/Vol] 105 mmol/L 98 - 10 7 mmol/L [facility] CO2 [Moles/Vol] 27 mmol/L 22 - 30 mmol/L [facility] Creatinine [Mass/Vol] 0.91 mg/dL 0.52 - 1.04 mg/dL [facility] GFR/1.73 sq M.predicted MDRD (S/P/Bld) [Vol rate/Area] 74.7 mL/min/{1.73_m2} - PINF [facility] Comment on above: Calculation based on the Chronic Kidney Disease Epidemiology Collaboration (CKD-EPI) equation refit without adjustment for race Glucose [Mass/Vol] 170 mg/dL High 70 - 100 mg/dL [facility] Potassium [Moles/Vol] 4.2 mmol/L 3.5 - 5.1 mmol/L [facility] Sodium [Moles/Vol] 138 mmol/L 135 - 145 mmol/L [facility] Urea nitrogen [Mass/Vol] 16 mg/dL 7 - 17 mg/dL [facility] CBC W Auto Differential pane l (Bld)Ordered By: Gina Márquez on 05-16-2023 Erythrocyte distribution width (RBC) [Ratio] 16.5 % High 11.5 - 14.5 % [facility] Hematocrit (Bld) [Volume fraction] 38.1 % 35.0 - 47.0 % [facility] Hemoglobin (Bld) [Mass/Vol] 12.3 g/dL 11.7 - 16.0 g/dL [facility] Interpretation and review of laboratory results Abnormal [facility] MCH (RBC) [Entitic mass] 27.3 pg 26.0 - 34.0 pg [facility] MCHC (RBC) [Mass/Vol] 32.3 % 32.0 - 36.0 % [facility] MCV (RBC) [Entitic vol] 84.4 fL 80.0 - 98.0 fL [facility] Platelet mean volume (Bld) [Entitic vol] 8.4 fL 7.4 - 12.4 fL [facility] Platelets (Bld) [#/Vol] 69 10*3/uL Low 140 - 440 10*3/uL [facility] RBC (Bld) [#/Vol] 4.51 10*6/uL 3.8 - 5.20 10*6/uL [facility] WBC (Bld) [#/Vol] 2.9 10*3/uL Low 3.6 - 10.7 10*3/uL [facility] Hepatic function 2000 panelo n 05-16-2023 Albumin [Mass/Vol] 4.0 g/dL 3.5 - 5.0 g/dL [facility] ALP [Catalytic activity/Vol] 150 U/L High 38 - 126 U/L [facility] ALT [Catalytic activity/Vol] 29 U/L 0 - 34 U/L [facility] AST [Catalytic activity/Vol] 35 U/L 15 - 46 U/L [facility] Bilirubin [Mass/Vol] 1.1 mg/dL 0.2 - 1 .3 mg/dL [facility] Bilirubin.conjugated [Mass/Vol] 0.0 mg/dL 0.0 - 0.3 mg/dL [facility] Protein [Mass/Vol] 8.3 g/dL High 6.3 - 8.2 g/dL [facility] Laboratory - Chemistry and C hemistry - challengeon 05-16-2023 Troponin I.cardiac [Mass/Vol] ng/mL [facility] [facility] 0.034 ng/mL [facility] Troponin I.cardiac [Mass/Vol] 0.012 ng/mL [facility] Magnesium [Mass/Vol] 1.5 mg/dL Low 1.6 - 2 .3 mg/dL [facility] Manual differential performe d Ql (Bld)on 05-16-2023 Anisocytosis Ql (Bld) Moderate Abnormal (none) [facility] Basophils (Bld) [#/Vol] 0.0 10*3/uL 0.0 - 0.2 10*3/uL [facility] Basophils Manual 1 [facility] Basophils/100 WBC (Bld) 1 % 0 - 2 % [facility] Cells Counted Total (Bld) [#] 100 {cells} [facility] Differential Method Manual differential performed [facility] Interpretation and review of laboratory results Abnormal [facility] Leukocyte morphology finding Nom (Bld) Normal [facility] Lymphocytes (Bld) [#/Vol] 0.6 10*3/uL Low 1.0 - 4.3 10*3/uL [facility] Lymphocytes Manual 22 [facility] Lymphocytes/100 WBC (Bld) 22 % 20 - 40 % [facility] Monocytes (Bld) [#/Vol] 0.1 10*3/uL 0.0 - 0.8 10*3/uL [facility] Monocytes Manual 5 [facility] Monocytes/100 WBC (Bld) 5 % 2 - 10 % [facility] Neutrophils (Bld) [#/Vol] 2.1 10*3/uL 1.8 - 7.0 10*3/uL [facility] Neutrophils Manual 72 [facility] Ovalocytes LM Ql (Bld) Slight Abnormal (none) [facility] Platelet morphology finding Nom (Bld) Normal [facility] Segmented neutrophils/100 WBC (Bld) 72 % 40 - 80 % [facility] WBC corrected for nucl RBC (Bld) [#/Vol] 2.9 10*3/uL Low 3.6 - 10.7 10*3/uL [facility] [facility] No Panel InformationOrdered By: Clint Bright on 05-16-2023 P [place] 57 degrees [employer] Work Phone: CT Interval 187 ms [employer] Work Phone: QRS [place] -62 degrees [employer] Work Phone: QRSD Interval 106 ms [employer] Work Phone: QT Interval 412 ms [employer] Work Phone: QTC Interval 434 ms [employer] Work Phone: T Wave [place] 60 degrees [employer] Work Phone: [employer] Work Phone: No Panel Informationon 05-16 Sinus rhythm Left anterior fascicular block NONSPECIFIC REPOLARIZATION ABNORMALITIES Electronically Signed On 05-16-2023 23:22:40 EST by Clint Bright CV Clint Jaquez MD - 05/16/2023 IMPRESSION: Sinus rhythm Left anterior fascicular block NONSPECIFIC REPOLARIZATION ABNORMALITIES Electronically Signed On 05-16-2023 23:22:40 EST by Clint Bright [facility] Interpretation and review of laboratory results Abnormal [facility] Troponin I.cardiac [Mass/Vol ]on 05-16-2023 Interpretation and review of laboratory results Normal [facility] Patients with high l evels of Biotin oral intake (ie >5 mg/day) may have falsely decreased Troponin levels. [facility] Interpretation and review of laboratory results Normal [facility] Patients with high l evels of Biotin oral intake (ie >5 mg/day) may have falsely decreased Troponin levels. [facility] Vital signsOrdered By: Clint Lauren on 05-16-2023 Heart rate 67 /min bpm [employer] [facility] Work Phone: XR Chest Single viewon 05-16 No acute cardiopulmonary disease. Report Dictated on Electronically Signed By: Fadi Sumner MD Electronically Signed Date/Time: 05/16/2023 1:16 PM EST [facility] Patient Name: MELANIE REA : [...] changes of the thoracic spine are noted. [facility] Fadi Sumner MD - 05/16/2023 Patient [...] Electronically Signed Date/Time: 05/16/2023 1:16 PM EST [facility] Radiology Study observation (narrative) [facility] XR Chest Single viewOrdered By: Fadi Sumner on 05-16-[address] [facility] [address] Cervical spine WO contras ton 03-15-2023 No fracture or dislocation of the cervical spine. Mild degenerative changes from C4 through C6. Report Dictated on Electronically Signed By: Fadi Sumner MD Electronically Signed Date/Time: 03/15/2023 11:38 AM EDT [facility] Patient Name: MELANIE REA : [...] No bony neural foraminal narrowing is seen. [facility] Fadi Sumner MD - 03/15/2023 Patient Name: [...] Electronically Signed Date/Time: 03/15/2023 11:38 AM EDT [facility] CT Head WO contraston [address] of the brain. Report Dictated on Electronically Signed By: Fadi Sumner MD Electronically Signed Date/Time: 03/15/2023 11:34 AM EDT [facility] Patient Name: MELANIE REA : [...] portion of the paranasal sinuses appear clear. [facility] Fadi Sumner MD - 03/15/2023 Patient Name: MELANIE TOVAR : 1965 Exam Date/Time: 03/15/2023 11:59 Procedure: [...] Electronically Signed Date/Time: 03/15/2023 11:34 AM EDT [facility] CT Head WO contrastOrdered B y: Fadi Sumner on 03-15-2023 [employer] Work Phone: No Panel Informationon 03-15 Radiology Study observation (narrative) [facility] Laboratory - Chemistry and C hemistry - challengeon 02-20-2023 Glucose [Mass/Vol] 152 mg/dL High 70 - 100 mg/dL [facility] Glucose [Mass/Vol] 170 mg/dL High 70 - 100 mg/dL [facility] Glucose [Mass/Vol] 149 mg/dL High 70 - 100 mg/dL [facility] No Panel Informationon 02-20 Interpretation and review of laboratory results Abnormal [facility] Performed by: [facility], [address] [place] [address] [id number] CLIA ID: [id number] [facility] Interpretation and review of laboratory results Abnormal [facility] Performed by: [employer] [facility], [address] [place] [address] [id number] CLIA ID: [id number] [facility] Interpretation and review of laboratory results Abnormal [facility] Performed by: [facility], [address] [place] [address] [id number] CLIA ID: [id number] [facility] Laboratory - Chemistry and C hemistry - challengeon 02-19-2023 Glucose [Mass/Vol] 159 mg/dL High 70 - 100 mg/dL [facility] Glucose [Mass/Vol] 153 mg/dL High 70 - 100 mg/dL [facility] Glucose [Mass/Vol] 231 mg/dL High 70 - 100 mg/dL [facility] Glucose [Mass/Vol] 122 mg/dL High 70 - 100 mg/dL [facility] Glucose [Mass/Vol] 78 mg/dL 70 - 100 mg/dL [facility] Glucose [Mass/Vol] 82 mg/dL 70 - 100 mg/dL [facility] No Panel Informationon 02-19 Interpretation and review of laboratory results Abnormal [facility]formed [facility]: [facility], [address] [place] [id number] CLIA ID: [id number] [facility] Interpretation and review of laboratory results Abnormal [facility] Performed by: [facility], [address] [place] [address] [id number] CLIA ID: [id number] [facility] Interpretation and review of laboratory results Abnormal [facility]formed by: [facility], [address] [place] [address] [id number] CLIA ID: [id number] [facility] Interpretation and review of laboratory results Abnormal [facility] Performed by: [facility], [address] [place] [address] [phone] CLIA ID: [id number] [facility] Interpretation and review of laboratory results Normal [facility] Performed by: [facility], [address] [place] [address] [id number] CLIA ID: [id number] [facility] Interpretation and review of laboratory results Normal [facility] Performed by: [facility], [address] [place] [address] [id number] CLIA ID: [id number] [facility] CBC W Auto Differential pane l (Bld)on 02-18-2023 Basophils (Bld) [#/Vol] 0.0 10*3/uL 0.0 - 0.2 10*3/uL [facility] Basophils/100 WBC (Bld) 0.1 % 0.0 - 2.0 % [facility] Eosinophils (Bld) [#/Vol] 0.0 10*3/uL 0.0 - 0.5 10*3/uL [facility] Eosinophils/100 WBC (Bld) 0.0 % Low 1.0 - 6.0 % [facility] Erythrocyte distribution width (RBC) [Ratio] 16.5 % High 11.5 - 14.5 % [facility] Hematocrit (Bld) [Volume fraction] 38.4 % 35.0 - 47.0 % [facility] Hemoglobin (Bld) [Mass/Vol] 12.2 g/dL 11.7 - 16.0 g/dL [facility] Interpretation and review of laboratory results Abnormal [facility] Lymphocytes (Bld) [#/Vol] 0.6 10*3/uL Low 1.0 - 4.3 10*3/uL [facility] Lymphocytes/100 WBC (Bld) 20.0 % 20.0 - 40.0 % [facility] MCH (RBC) [Entitic mass] 27.1 pg 26.0 - 34.0 pg [facility] MCHC (RBC) [Mass/Vol] 31.8 % Low 32.0 - 36.0 % [facility] MCV (RBC) [Entitic vol] 85.0 fL 80.0 - 98.0 fL [facility] Monocytes (Bld) [#/Vol] 0.3 10*3/uL 0.0 - 0.8 10*3/uL [facility] Monocytes/100 WBC (Bld) 8.3 % 2.0 - 10.0 % [facility] Neutrophils (Bld) [#/Vol] 2.2 10*3/uL 1.8 - 7.0 10*3/uL [facility] Neutrophils/100 WBC (Bld) 71.6 % 40.0 - 80.0 % [facility] Nucleated RBC/100 WBC (Bld) [Ratio] 0.1 % [facility] Platelet mean volume (Bld) [Entitic vol] 8.2 fL 7.4 - 12.4 fL [facility] Platelets (Bld) [#/Vol] 74 10*3/uL Low 140 - 440 10*3/uL [facility] RBC (Bld) [#/Vol] 4.52 10*6/uL 3.8 - 5.20 10*6/uL [facility] WBC (Bld) [#/Vol] 3.0 10*3/uL Low 3.6 - 10.7 10*3/uL [facility] Comprehensive metabolic 1998 panelon 02-18-2023 Albumin [Mass/Vol] 3.8 g/dL 3.5 - 5.0 g/dL [facility] ALP [Catalytic activity/Vol] 139 U/L High 38 - 126 U/L [facility] ALT [Catalytic activity/Vol] 20 U/L 0 - 34 U/L [facility] Anion gap [Moles/Vol] 7 mmol/L 3 - 13 mmol/L [facility] AST [Catalytic activity/Vol] 41 U/L 15 - 46 U/L [facility] Bilirubin [Mass/Vol] 0.7 mg/dL 0.2 - 1 .3 mg/dL [facility] Calcium [Mass/Vol] 9.1 mg/dL 8.4 - 10. 4 mg/dL [facility] Chloride [Moles/Vol] 104 mmol/L 98 - 10 7 mmol/L [facility] CO2 [Moles/Vol] 29 mmol/L 22 - 30 mmol/L [facility] Creatinine [Mass/Vol] 0.91 mg/dL 0.52 - 1.04 mg/dL [facility] GFR/1.73 sq M.predicted MDRD (S/P/Bld) [Vol rate/Area] 74.7 mL/min/{1.73_m2} - PINF [facility] Comment on above: Calculation based on the Chronic Kidney Disease Epidemiology Collaboration (CKD-EPI) equation refit without adjustment for race Glucose [Mass/Vol] 56 mg/dL Low 70 - 100 mg/dL [facility] Interpretation and review of laboratory results Abnormal [facility] Potassium [Moles/Vol] 3.7 mmol/L 3.5 - 5.1 mmol/L [facility] Protein [Mass/Vol] 7.4 g/dL 6.3 - 8.2 g/dL [facility] Sodium [Moles/Vol] 140 mmol/L 135 - 145 mmol/L [facility] Urea nitrogen [Mass/Vol] 17 mg/dL 7 - 17 mg/dL [facility] Laboratory - Chemistry and C hemistry - challengeon 02-18-2023 Glucose [Mass/Vol] 85 mg/dL 70 - 100 mg/dL [facility] Glucose [Mass/Vol] 62 mg/dL Low 70 - 100 mg/dL [facility] Glucose [Mass/Vol] 82 mg/dL 70 - 100 mg/dL [facility] Glucose [Mass/Vol] 60 mg/dL Low 70 - 100 mg/dL [facility] Laboratory - Microbiology an d Antimicrobial susceptibilityon 02-18-2023 FLUAV RNA EVERETTE+probe Ql (Resp) Not detected Not Detected [facility] FLUBV RNA EVERETTE+probe Ql (Resp) Not detected Not Detected [facility] RSV RNA EVERETTE+probe Ql (Resp) Not detected Not Detected [facility] SARS-CoV-2 (COVID-19) RNA EVERETTE+probe Ql (Resp) Not detected Not Detected [facility] SARS-CoV-2 (COVID-19) RNA EVERETTE+probe Ql (Unsp spec) Methodology: real-time, RT-PCR The SARS-CoV-2, Flu A/B, and RSV Combo assay is intended for in vitro diagnostic use under the FDA Emergency Use Authorization (EUA). This test has not been FDA cleared or approved. In compliance with this authorization, please visit www.fda.gov/media/929544/d ownload or www.fda.gov/media/236128/d ownload to access the applicable information sheets. [facility] No Panel Informationon 02-18 Interpretation and review of laboratory results Normal [facility] Performed by: [facility], [address] [place] [id number] CLIA ID: [id number] [facility] Interpretation and review of laboratory results Abnormal [facility] Performed by: [facility], [address] [place] [address] [id number] CLIA ID: [id number] [facility] Interpretation and review of laboratory results Normal [facility] Performed by: [facility], [address] [place] [address] [id number] CLIA ID: [id number] [facility] Interpretation and review of laboratory results Abnormal [facility] Performed by: [facility], [address] [place] [address] [id number] CLIA ID: [id number] [facility] SARS-CoV-2, Flu A/B, and RSV Comboon 02-18-2023 Interpretation and review of laboratory results Normal [facility] Urinalysis complete panel (U )Ordered By: Porfirio Whalen on 02-18-2023 Bacteria LM.HPF (Urine sed) [#/Area] Few Abnormal Negative /HPF [facility] Bilirubin Ql (U) Negative Negative mg/dL [facility] Clarity (U) Clear Clear [facility] Color (U) Yellow Lt. Yellow [facility] Epithelial cells.squamous LM.HPF (Urine sed) [#/Area] 11-25 Abnormal [facility] Glucose Ql (U) Normal Normal (<70) mg/dL [facility] Hemoglobin Ql (U) Negative Negative mg/dL [facility] Hyaline casts Auto (Urine sed) [#/Area] 0-2 Abnormal Negative /LPF [facility] Interpretation and review of laboratory results Abnormal [facility] Ketones (U) [Mass/Vol] Negative Negative mg/dL [facility] Leukocyte esterase Test strip Ql (U) Negative Negative Kevin/uL [facility] Mucus LM.HPF (Urine sed) [#/Area] Few Negative /LPF [facility] Nitrite Ql (U) Negative Negative [facility] pH (U) 5.5 [pH] 5.0 - 8.0 pH [facility] Protein (U) [Mass/Vol] 30 mg/dL Abnormal Negative [facility] RBC LM.HPF (Urine sed) [#/Area] 0-2 [facility] Specific gravity (U) [Rel density] 1.019 1.005 - 1.030 [facility] Urobilinogen (U) [Mass/Vol] Normal Normal (0-1) mg/dL [facility] WBC LM.HPF (Urine sed) [#/Area] 0-2 [facility] Basic metabolic 1998 panelon 02-13-2023 Anion gap [Moles/Vol] 4 mmol/L 3 - 13 mmol/L [facility] Calcium [Mass/Vol] 8.6 mg/dL 8.4 - 10. 4 mg/dL [facility] Chloride [Moles/Vol] 104 mmol/L 98 - 10 7 mmol/L [facility] CO2 [Moles/Vol] 27 mmol/L 22 - 30 mmol/L [facility] Creatinine [Mass/Vol] 1.01 mg/dL 0.52 - 1.04 mg/dL [facility] GFR/1.73 sq M.predicted MDRD (S/P/Bld) [Vol rate/Area] 65.9 mL/min/{1.73_m2} - PINF [facility] Comment on above: Calculation based on the Chronic Kidney Disease Epidemiology Collaboration (CKD-EPI) equation refit without adjustment for race Glucose [Mass/Vol] 203 mg/dL High 70 - 100 mg/dL [facility] Interpretation and review of laboratory results Abnormal [facility] Potassium [Moles/Vol] 3.7 mmol/L 3.5 - 5.1 mmol/L [facility] Sodium [Moles/Vol] 135 mmol/L 135 - 145 mmol/L [facility] Urea nitrogen [Mass/Vol] 17 mg/dL 7 - 17 mg/dL [facility] CBC W Auto Differential pane l (Bld)Ordered By: Jelly Knott on 02-13-2023 Basophils (Bld) [#/Vol] 0.0 10*3/uL 0.0 - 0.2 10*3/uL [facility] Basophils/100 WBC (Bld) 0.4 % 0.0 - 2.0 % [facility] Eosinophils (Bld) [#/Vol] 0.0 10*3/uL 0.0 - 0.5 10*3/uL [facility] Eosinophils/100 WBC (Bld) 0.0 % Low 1.0 - 6.0 % [facility] Erythrocyte distribution width (RBC) [Ratio] 16.3 % High 11.5 - 14.5 % [facility] Hematocrit (Bld) [Volume fraction] 35.4 % 35.0 - 47.0 % [facility] Hemoglobin (Bld) [Mass/Vol] 11.5 g/dL Low 11.7 - 16.0 g/dL [facility] Interpretation and review of laboratory results Abnormal [facility] Lymphocytes (Bld) [#/Vol] 0.7 10*3/uL Low 1.0 - 4.3 10*3/uL [facility] Lymphocytes/100 WBC (Bld) 27.0 % 20.0 - 40.0 % [facility] MCH (RBC) [Entitic mass] 27.3 pg 26.0 - 34.0 pg [facility] MCHC (RBC) [Mass/Vol] 32.6 % 32.0 - 36.0 % [facility] MCV (RBC) [Entitic vol] 83.6 fL 80.0 - 98.0 fL [facility] Monocytes (Bld) [#/Vol] 0.2 10*3/uL 0.0 - 0.8 10*3/uL [facility] Monocytes/100 WBC (Bld) 9.2 % 2.0 - 10.0 % [facility] Neutrophils (Bld) [#/Vol] 1.7 10*3/uL Low 1.8 - 7.0 10*3/uL [facility] Neutrophils/100 WBC (Bld) 63.4 % 40.0 - 80.0 % [facility] Nucleated RBC/100 WBC (Bld) [Ratio] 0.1 % [facility] Platelet mean volume (Bld) [Entitic vol] 8.3 fL 7.4 - 12.4 fL [facility] Platelets (Bld) [#/Vol] 64 10*3/uL Low 140 - 440 10*3/uL [facility] RBC (Bld) [#/Vol] 4.23 10*6/uL 3.8 - 5.20 10*6/uL [facility] WBC (Bld) [#/Vol] 2.6 10*3/uL Low 3.6 - 10.7 10*3/uL [facility] Calcium.ionized [Moles/Vol]o n 02-13-2023 Calcium.ionized (Bld) [Moles/Vol] 4.40 mg/dL 4.30 - 5.20 mg/dL [facility] Interpretation and review of laboratory results Normal [facility] PH, IONIZED CALCIUM 7.44 7.31 - 7.46 [facility] Laboratory - Chemistry and C hemistry - challengeon 02-13-2023 Troponin I.cardiac [Mass/Vol] ng/mL 0.000 - 0.034 ng/mL [facility] Glucose [Mass/Vol] 198 mg/dL High 70 - 100 mg/dL [facility] Glucose [Mass/Vol] 198 mg/dL [facility] No Panel Informationon 02-13 Interpretation and review of laboratory results Abnormal [facility]formed by: [facility], [address] [place] [address] [id number] CLIA ID: [id number] [facility] Interpretation and review of laboratory results Normal [facility] Troponin I.cardiac [Mass/Vol ]on 02-13-2023 Interpretation and review of laboratory results Normal [facility] Patients with high l evels of Biotin oral intake (ie >5 mg/day) may have falsely decreased Troponin levels. [facility] XR Chest Single viewon 02-13 1. No acute findings. Report Dictated on Electronically Signed By: John Beaver MD Electronically Signed Date/Time: 02/13/2023 8:07 PM EDT [facility] Patient Name: MELANIE REA : [...] or apparent pneumothorax. Bony thorax grossly unremarkable. [facility] John Beaver MD - 02/13/2023 Patient [...] Electronically Signed Date/Time: 02/13/2023 8:07 PM EDT [facility] Radiology Study observation (narrative) [employer] XR Chest Single viewOrdered By: John Beaver on 02-13-2023 [employer] Work Phone: XR Knee - left 4 Viewson 1. No acute osseous abnormality. 2. Mild degenerative change. Report Dictated on Electronically Signed By: John Beaver MD Electronically Signed Date/Time: 02/06/2023 9:44 PM EDT [facility] Patient Name: MELANIE REA : [...] patellofemoral joints spaces. Soft tissues grossly unremarkable. [facility] John Beaver MD - 02/06/2023 [...] Electronically Signed Date/Time: 02/06/2023 9:44 PM EDT [facility] Radiology Study observation (narrative) [employer] XR Knee - left 4 ViewsOrdere d By: John Beaver on 02-06-2023 [employer] Work Phone: Basophil percentageon 2021 Chloride [Moles/Vol] 106 mmol/L 98-107 [facility] Work Phone: Cholesterol [Mass/Vol] 124 mg/dL <200 [facility] Work Phone: Comment on above: <200 mg/dL Desirable 200-240 mg/dL Borderline >240 mg/dL High Risk Glucose [Mass/Vol] 137 mg/dL 74-106 [facility] Work Phone: Comment on above: Fasting Glucose resu lt greater than or equal to 126 mg/dL suggests DIABETES MELLITUS per A.D.A. criteria. Potassium [Moles/Vol] 4.4 mmol/L 3.5-5.1 [facility] Work Phone: Sodium [Moles/Vol] 138 mmol/L 136-145 [facility] Work Phone: Triglyceride [Mass/Vol] 128 mg/dL <199 [facility] Work Phone: Comment on above: The drugs N-Acetylcy steine and Metamizole may falsely depress this assay.Serum Triglycerides Reference Interval Normal <150 mg/dL Borderline high 150 - 199 mg/dL High 200 - 499 mg/dL Very High > or = 500 mg/dL Laboratory - Chemistry and C hemistry - challengeon 05-22-2022 CO2 [Moles/Vol] 26.0 mmol/L 21.0-32.0 [facility] Work Phone: Urea nitrogen/Creatinine [Mass ratio] 21.4 mg/mg 10-20 [facility] Work Phone: No Panel Informationon 05-22 Estimated GFR (MDRD) Amer 76 mL/min >60 [facility] Work Phone: Comment on above: GFR Calc Estimated GFR (MDRD) Non-Af Amer 63 mL/min >60 [facility] Work Phone: Comment on above: Non- GFR Calc Serum or plasma calcium kenna urement (mass/volume)on 05-22-2022 Calcium [Mass/Vol] 9.2 mg/dL 8.5-10.1 [facility] Work Phone: Serum or plasma cholesterol in HDL measurement (mass/volume)on 05-22-2022 Cholesterol in HDL [Mass/Vol] 40 mg/dL >40 [facility] Work Phone: Comment on above: The drugs N-Acetylcy steine and Metamizole may falsely depress this assay. Reference Range HDL <40 mg/dL Low HDL Cholesterol HDL >or= 60 mg/dL High HDL Cholesterol Serum or plasma cholesterol in VLDL measurement (mass/volume)on 05-22-2022 Cholesterol in VLDL [Mass/Vol] 26 mg/dL 5-40 [facility] Work Phone: Serum or plasma creatinine m easurement (mass/volume)on 05-22-2022 Creatinine [Mass/Vol] 0.98 mg/dL 0.55-1.02 [facility] Work Phone: Comment on above: The validity of the calculated GFR & GFRAA in patients over 70 years has not been determined. Clinical correlation is essential. Serum or plasma low density lipoprotein (LDL) cholesterol measurement (mass/volume)on 05-22-2022 Cholesterol in LDL [Mass/Vol] 58 mg/dL 0-130 [facility] Work Phone: Serum or plasma urea nitroge n measurement (mass/volume)on 05-22-2022 Urea nitrogen [Mass/Vol] 21 mg/dL 7-18 [facility] Work Phone: Thin prep Papanicolaou smear with manual screeningon 05-22-2022 Thin prep Papanicolaou smear with manual screening 6 5-15 [facility] Work Phone: Absolute lymphocyte counton 03-07-2022 Lymphocytes Auto (Unsp spec) [#/Vol] 1.02 10*3/uL 0.83-4.51 [facility] Work Phone: Basophil percentageon 2021 Basophils/100 WBC (Bld) 0.3 % 0-1 [facility] Work Phone: Chloride [Moles/Vol] 106 mmol/L 98-107 [facility] Work Phone: Eosinophils/100 WBC (Bld) 0.0 % 0-5 [facility] Work Phone: Glucose [Mass/Vol] 321 mg/dL 74-106 [facility] Work Phone: Comment on above: Slight Lipemia, Resu lt may be falsely increased.Glucose result greater than or equal to 200 mg/dLsuggests DIABETES MELLITUS per A.D.A. criteria. Neutrophils (Bld) [#/Vol] 2.5 10*3/uL 2.0-7.7 [facility] Work Phone: Neutrophils/100 WBC (Bld) 63.5 % 47-70 [facility] Work Phone: Potassium [Moles/Vol] 4.2 mmol/L 3.5-5.1 [facility] Work Phone: Comment on above: Slight Hemolysis, Re sult may be falsely increased.-Slight Lipemia, Result may be falsely increased. Sodium [Moles/Vol] 138 mmol/L 136-145 [facility] Work Phone: WBC (Bld) [#/Vol] 3.9 10*3/uL 4.4-11.0 [facility] Work Phone: Blood erythrocytes count (nu mber/volume)on 03-07-2022 RBC (Bld) [#/Vol] 4.46 10*6/uL 4.2-5.4 [facility] Work Phone: Blood hemoglobin measurement (mass/volume)on 03-07-2022 Hemoglobin (Bld) [Mass/Vol] 12.8 g/dL 12.0-15.0 [facility] Work Phone: [phone] Blood lymphocytes/100 leukoc yteson 03-07-2022 Lymphocytes/100 WBC (Bld) 26.0 % 19-41 [facility] Work Phone: Blood monocytes/100 leukocyt eson 03-07-2022 Monocytes/100 WBC (Bld) 9.7 % 0-10 [facility] Work Phone: Blood platelet mean volumeon 03-07-2022 Platelet mean volume (Bld) [Entitic vol] 11.3 fL 6.2-12.0 [facility] Work Phone: Determination of erythrocyte mean corpuscular volume (MCV)on 03-07-2022 MCV (RBC) [Entitic vol] 89.7 fL 81-99 [facility] Work Phone: Hematocrit Auto (Bld) [Volum e fraction]on 03-07-2022 Hematocrit (Bld) [Volume fraction] 40.0 % 37-47 [facility] Work Phone: Laboratory - Chemistry and C hemistry - challengeon 03-07-2022 CO2 [Moles/Vol] 25.0 mmol/L 21.0-32.0 [facility] Work Phone: Comment on above: Slight Lipemia, Resu lt may be falsely increased. Urea nitrogen/Creatinine [Mass ratio] 12.7 mg/mg 10-20 [facility] Work Phone: Laboratory - Hematology and Cell countson 03-07-2022 Erythrocyte distribution width (RBC) [Entitic vol] 52.6 fL 35.1-43.9 [facility] Work Phone: Erythrocyte distribution width (RBC) [Ratio] 16.2 % 11.6-14.6 [facility] Work Phone: Immature granulocytes/100 WBC (Bld) 0.500 % 0.0-0.9 [facility] Work Phone: Comment on above: IG% - Immature Granu locytes (promyelocytes, myelocytes and metamyelocytes) > 1% indicates that a LEFT SHIFT is Present. MCH (RBC) [Entitic mass] 28.7 pg 27.0-32.0 [facility] Work Phone: Nucleated RBC/100 WBC (Bld) [Ratio] 0 % 0-5 [facility] Work Phone: MCHC Auto (RBC) [Mass/Vol]on 03-07-2022 MCHC (RBC) [Mass/Vol] 32.0 g/dL 32-36 [facility] Work Phone: No Panel Informationon 03-07 Troponin I High Sensitivity 18 pg/mL 3.0-54.0 [facility] Work Phone: Comment on above: Please Note: New Julia t Units and Gender Specific Reference Ranges. For more information see Policy Stat Procedure [place] High Sensitivity Troponin (TNIH) and attachments. Estimated Creatinine Clearance Calc 45.93 ml/min [facility] Work Phone: Estimated GFR (MDRD) Amer 57 mL/min >60 [facility] Work Phone: Comment on above: GFR Calc Estimated GFR (MDRD) Non-Af Amer 47 mL/min >60 [facility] Work Phone: Comment on above: Non- GFR Calc Platelets bldon 03-07-2022 Platelets (Bld) [#/Vol] 85 10*3/uL 150-450 [facility] Work Phone: Serum or plasma calcium kenna urement (mass/volume)on 03-07-2022 Calcium [Mass/Vol] 8.8 mg/dL 8.5-10.1 [facility] Work Phone: Comment on above: Slight Lipemia, Resu lt may be falsely increased. Serum or plasma creatinine m easurement (mass/volume)on 03-07-2022 Creatinine [Mass/Vol] 1.26 mg/dL 0.55-1.02 [facility] Work Phone: Comment on above: Slight Lipemia, Resu lt may be falsely increased.The validity of the calculated GFR & GFRAA in patients over 70 years has not been determined. Clinical correlation is essential. Serum or plasma urea nitroge n measurement (mass/volume)on 03-07-2022 Urea nitrogen [Mass/Vol] 16 mg/dL 7-18 [facility] Work Phone: Comment on above: Slight Lipemia, Resu lt may be falsely increased. Thin prep Papanicolaou smear with manual screeningon 03-07-2022 Thin prep Papanicolaou smear with manual screening 7 5-15 [facility] Work Phone: Absolute lymphocyte counton 02-16-2022 Lymphocytes Auto (Unsp spec) [#/Vol] 0.83 10*3/uL 0.83-4.51 [facility] Work Phone: Basophil percentageon 2021 Basophils/100 WBC (Bld) 0.6 % 0-1 [facility] Work Phone: Eosinophils/100 WBC (Bld) 0.0 % 0-5 [facility] Work Phone: Neutrophils (Bld) [#/Vol] 2.4 10*3/uL 2.0-7.7 [facility] Work Phone: Neutrophils/100 WBC (Bld) 65.0 % 47-70 [facility] Work Phone: WBC (Bld) [#/Vol] 3.6 10*3/uL 4.4-11.0 [facility] Work Phone: Blood erythrocytes count (nu mber/volume)on 02-16-2022 RBC (Bld) [#/Vol] 4.61 10*6/uL 4.2-5.4 [facility] Work Phone: Blood hemoglobin measurement (mass/volume)on 02-16-2022 Hemoglobin (Bld) [Mass/Vol] 12.9 g/dL 12.0-15.0 [facility] Work Phone: Blood lymphocytes/100 leukoc yteson 02-16-2022 Lymphocytes/100 WBC (Bld) 23.0 % 19-41 [facility] Work Phone: Blood manual differential co mment interpretation (narrative result)on 02-16-2022 Manual differential comment Clifford (Bld) [Interp] See comment [facility] Work Phone: Comment on above: THROMBOCYTOPENIA NOT ED Blood monocytes/100 leukocyt eson 02-16-2022 Monocytes/100 WBC (Bld) 10.8 % 0-10 [facility] Work Phone: Blood platelet mean volumeon 02-16-2022 Platelet mean volume (Bld) [Entitic vol] 10.6 fL 6.2-12.0 [facility] Work Phone: Determination of erythrocyte mean corpuscular volume (MCV)on 02-16-2022 MCV (RBC) [Entitic vol] 88.5 fL 81-99 [facility] Work Phone: Hematocrit Auto (Bld) [Volum e fraction]on 02-16-2022 Hematocrit (Bld) [Volume fraction] 40.8 % 37-47 [facility] Work Phone: Laboratory - Hematology and Cell countson 02-16-2022 Erythrocyte distribution width (RBC) [Entitic vol] 50.3 fL 35.1-43.9 [facility] Work Phone: [phone] Erythrocyte distribution width (RBC) [Ratio] 15.8 % 11.6-14.6 [facility] Work Phone: Immature granulocytes/100 WBC (Bld) 0.600 % 0.0-0.9 [facility] Work Phone: [phone] Comment on above: IG% - Immature Granu locytes (promyelocytes, myelocytes and metamyelocytes) > 1% indicates that a LEFT SHIFT is Present. MCH (RBC) [Entitic mass] 28.0 pg 27.0-32.0 [facility] Work Phone: Nucleated RBC/100 WBC (Bld) [Ratio] 0 % 0-5 [facility] Work Phone: MCHC Auto (RBC) [Mass/Vol]on 02-16-2022 MCHC (RBC) [Mass/Vol] 31.6 g/dL 32-36 [facility] Work Phone: Platelets bldon 02-16-2022 Platelets (Bld) [#/Vol] 80 10*3/uL 150-450 [facility] Work Phone: Basophil percentageon 2021 Bilirubin [Mass/Vol] 0.80 mg/dL 0.20-1.00 [facility] Work Phone: Comment on above: For patients on eltr ombopag therapy, use of Dimension [place] TBIL is not recommended. Chloride [Moles/Vol] 102 mmol/L 98-107 [facility] Work Phone: Cholesterol [Mass/Vol] 148 mg/dL <200 [facility] Work Phone: Comment on above: <200 mg/dL Desirable 200-240 mg/dL Borderline >240 mg/dL High Risk Glucose [Mass/Vol] 131 mg/dL 74-106 [facility] Work Phone: Comment on above: Fasting Glucose resu lt greater than or equal to 126 mg/dL suggests DIABETES MELLITUS per A.D.A. criteria. Potassium [Moles/Vol] 3.9 mmol/L 3.5-5.1 [facility] Work Phone: Protein [Mass/Vol] 8.2 g/dL 6.4-8.2 [facility] Work Phone: Sodium [Moles/Vol] 136 mmol/L 136-145 [facility] Work Phone: Triglyceride [Mass/Vol] 299 mg/dL <199 [facility] Work Phone: Comment on above: The drugs N-Acetylcy steine and Metamizole may falsely depress this assay.Serum Triglycerides Reference Interval Normal <150 mg/dL Borderline high 150 - 199 mg/dL High 200 - 499 mg/dL Very High > or = 500 mg/dL Direct bilirubinon 2 Bilirubin.direct [Mass/Vol] 0.23 mg/dL 0.00-0.30 [facility] Work Phone: Laboratory - Chemistry and C hemistry - challengeon 11-07-2021 ALP [Catalytic activity/Vol] 131 U/L 45-117 [facility] Work Phone: ALT [Catalytic activity/Vol] 53 U/L 13-56 [facility] Work Phone: CO2 [Moles/Vol] 30.0 mmol/L 21.0-32.0 [facility] Work Phone: Globulin (S) [Mass/Vol] 4.7 g/dL 2.2-4.2 [facility] Work Phone: Urea nitrogen/Creatinine [Mass ratio] 15.8 mg/mg 10-20 [facility] Work Phone: No Panel Informationon 11-07 Estimated GFR (MDRD) Amer 64 mL/min >60 [facility] Work Phone: Comment on above: GFR Calc Estimated GFR (MDRD) Non-Af Amer 53 mL/min >60 [facility] Work Phone: Comment on above: Non- GFR Calc Urine Microalbumin/Creatini ne Ratio 515.5 mg/g CRE <30 [facility] Work Phone: Serum or plasma albumin kenna urement (mass/volume)on 11-07-2021 Albumin [Mass/Vol] 3.5 g/dL 3.2-5.0 [facility] Work Phone: Serum or plasma calcium kenna urement (mass/volume)on 11-07-2021 Calcium [Mass/Vol] 9.7 mg/dL 8.5-10.1 [facility] Work Phone: Serum or plasma cholesterol in HDL measurement (mass/volume)on 11-07-2021 Cholesterol in HDL [Mass/Vol] 39 mg/dL >40 [facility] Work Phone: Comment on above: The drugs N-Acetylcy steine and Metamizole may falsely depress this assay. Reference Range HDL <40 mg/dL Low HDL Cholesterol HDL >or= 60 mg/dL High HDL Cholesterol Serum or plasma cholesterol in VLDL measurement (mass/volume)on 11-07-2021 Cholesterol in VLDL [Mass/Vol] 60 mg/dL 5-40 [facility] Work Phone: Serum or plasma creatinine m easurement (mass/volume)on 11-07-2021 Creatinine [Mass/Vol] 1.14 mg/dL 0.55-1.02 [facility] Work Phone: Comment on above: The validity of the calculated GFR & GFRAA in patients over 70 years has not been determined. Clinical correlation is essential. Serum or plasma low density lipoprotein (LDL) cholesterol measurement (mass/volume)on 11-07-2021 Cholesterol in LDL [Mass/Vol] 49 mg/dL 0-130 [facility] Work Phone: Serum or plasma urea nitroge n measurement (mass/volume)on 11-07-2021 Urea nitrogen [Mass/Vol] 18 mg/dL 7-18 [facility] Work Phone: Thin prep Papanicolaou smear with manual screeningon 11-07-2021 Thin prep Papanicolaou smear with manual screening 33 U/L 15-37 [facility] Work Phone: Thin prep Papanicolaou smear with manual screening 4 5-15 [facility] Work Phone: Thin prep Papanicolaou smear with manual screening 199.0 mg/L NO RANGE EST. [facility] Work Phone: Urine creatinine measurement (mass/volume)on 11-07-2021 Creatinine (U) [Mass/Vol] 38.60 mg/dL NO RANGE EST. [facility] Work Phone: CBCon 06-14-2020 Erythrocyte distribution width (RBC) [Ratio] 16.7 % High 11.5 - 14.5 % [place] Hematocrit (Bld) [Volume fraction] 40.4 % 35 - 47 % [place] Hemoglobin (Bld) [Mass/Vol] 13.3 g/dL 11.7 - 16 g/dL [place] Interpretation and review of laboratory results Abnormal [place] MCH (RBC) [Entitic mass] 30.0 pg 26 - 34 pg [place] MCHC (RBC) [Mass/Vol] 32.9 % 32 - 36 % [place], [place] MCV (RBC) [Entitic vol] 91.2 fL 79 - [address] [facility], [place] Platelet mean volume (Bld) [Entitic vol] 8.6 fL 7.4 - 10.[address] [facility], [place] Platelets (Bld) [#/Vol] 88 10*3/uL Low 140 - 440 10*3/uL [place] RBC (Bld) [#/Vol] 4.43 10*6/uL 3.8 - 5.2 10*6/uL [facility], [place] WBC (Bld) [#/Vol] 5.8 10*3/uL 3.6 - 10.7 10*3/uL [facility] [place] Test Performed by [facility], [address] [place] [address] , [address] CR Chest PA/LATon 06-14-2020 CR Chest PA/LAT Patient Name: MELANIE FREY Diagnostic Radiology Exam Date/Time 06/14/2020 09:36:43 EST Exam CR Chest PA/LAT Ordering Physician JANNA RAMOS KRISTINA Accession Number [id number] CPT4 Codes 33518 () Reason For Exam Chest pain on [...] Transcribed Date and Time: 06/14/2020 9:53 Normal [facility] D-Dimer, Innovanceon 020 D-Dimer, Innovance < 0.19 Normal <0.19-0.50 [facility] Comment on above: Result Comment: Inno aldridge D-Dimer values of <0.50 mg/L FEU can be used in combination with a pre-test probability model (e.g. Well's) to exclude pulmonary embolism (PE) disease, as well as an aid in the diagnosis of deep vein thrombosis (DVT). Performed By: #### H OLIVA GOMEZI2 ####[facility] [place] [address] D-Dimer, Quantitativeon D-Dimer, Quant <0.19 <0.19 - 0.50 mg/L [place], [place] Comment on above: [facility] D-Dimer va lues of <0.50 mg/L FEU can be used in combination with a pre-test probability model (e.g. Well's) to exclude pulmonary embolism (PE) disease, as well as an aid in the diagnosis of deep vein thrombosis (DVT). Test Performed by [facility], [address] , [place], [place] [id number] [place] [address] Hemogramon 06-14-2020 Erythrocyte distribution width (RBC) [Ratio] 16.7 % High 11.5-14.5 [facility] Comment on above: Performed By: #### H ALEXANDER GOMEZ ####[facility] [place] [address] Hematocrit (Bld) [Volume fraction] 40.4 % Normal 35.0-47.0 [facility] Comment on above: Performed By: #### H OLIVA GOMEZI2 ####[facility] [place] [address] Hemoglobin (Bld) [Mass/Vol] 13.3 g/dL Normal 11.7-16.0 [facility] Comment on above: Performed By: #### H OLIVA GOMEZI2 ####[facility] [place] [address] MCH (RBC) [Entitic mass] 30.0 pg Normal 26.0-34.0 [facility] Comment on above: Performed By: #### H JASON DDI2 ####[facility] [place] [address] MCHC (RBC) [Mass/Vol] 32.9 % Normal 32.0-36.0 [facility] Comment on above: Performed By: #### H ALEXANDER GOMEZ ####[place] [address] [place] [address] MCV (RBC) [Entitic vol] 91.2 fL Normal 79.0-98.0 [facility] Comment on above: Performed By: #### H JASON DDI2 ####[facility] [place] [address] Platelet mean volume (Bld) [Entitic vol] 8.6 fL Normal 7.4-10.4 [facility] Comment on above: Performed By: #### Selam GOMEZ DDI2 ####[place] [address] [place] [address] Platelets (Bld) [#/Vol] 88 10*3/uL Low 140-440 [facility] Comment on above: Performed By: #### H JASON DDI2 ####[place] [address] [place] [address] RBC (Bld) [#/Vol] 4.43 10*6/uL Normal 3.80-5.20 [facility] Comment on above: Performed By: #### ALEXANDER COWAN ####[place] [address] [place] [address] WBC (Bld) [#/Vol] 5.8 10*3/uL Normal 3.6-10.7 [facility] Comment on above: Performed By: #### Selam GOMEZ DDI2 ####[place] [address] [address] [place] [address] XR CHEST (2 VW)on 06-14-2020 [facility], [facility] Incoming Radiology Results From [facility] - 06/14/2020 9:53 AM EST Patient Name: MELANIE RESTREPO ---Diagnostic Radiology--- Exam Date/Time 06/14/2020 09:36:43 EST Exam CR Chest PA/LAT Ordering Physician JANNA RAMOS KRISTINA Accession Number [id number] CPT4 Codes 03552 () Reason For Exam Chest pain on [...] DIANE Transcribed Date and Time: 06/14/2020 9:53 [place] Patient Name: MELANIE FREY ---Diagnostic Radiology--- Exam Date/Time 06/14/2020 09:36:43 EST Exam CR Chest PA/LAT Ordering Physician JANNA RAMOS KRISTINA Accession Number [id number] CPT4 Codes 11450 () Reason For Exam Chest pain on [...] DIANE Transcribed Date and Time: 06/14/2020 9:[address] [place] Creatinine, Random Urineon Creatinine (U) [Mass/Vol] 38.7 mg/dL No Range [place] Creatinine, Ur Randomon 04-11 Creatinine, Ur Random 38.7 mg/dL Normal No Range [facility] Comment on above: Performed By: #### T PUR, CRTUR, RENL3, URIC3 ####[facility] [place] [address] Otheron 04-20-2020 Test Performed by [facility], [address] , [place], [place] [id number] [place] [address] Test Performed by [facility], [address] , [place], [place] [id number] [place] [address] Protein, Ur Randomon 020 Protein [Mass/Vol] 107 mg/dL High No Range [facility] Comment on above: Performed By: #### T PUR, CRTUR, RENL3, URIC3 ####[facility] [place] [address] Protein, urine, randomon Interpretation and review of laboratory results Abnormal [place] Protein (U) [Mass/Vol] 107 mg/dL High No Range [place] Renal Functionon 04-20-2020 Calcium [Mass/Vol] 9.6 mg/dL Normal 8.4-10.4 [facility] Comment on above: Performed By: #### T PUR, CRTUR, RENL3, URIC3 ####[facility] [place] [address] Phosphate [Mass/Vol] 3.5 mg/dL Normal 2.5-4.5 [facility] Comment on above: Performed By: #### T PUR, CRTUR, RENL3, URIC3 ####[facility] [place] [address] Anion gap [Moles/Vol] 9 Normal [facility] Comment on above: Performed By: #### T PUR, CRTUR, RENL3, URIC3 ####[facility] [place] [address] CO2 [Moles/Vol] 32 mmol/L High 22-30 [facility] Comment on above: Performed By: #### T PUR, CRTUR, RENL3, URIC3 ####[facility] [place] [address] Creatinine [Mass/Vol] 0.95 mg/dL Normal 0.52-1.25 [facility] Comment on above: Performed By: #### T PUR, CRTUR, RENL3, URIC3 ####[facility] [place] [address] GFR/1.73 sq M predicted among blacks MDRD (S/P/Bld) [Vol rate/Area] 79.3 mL/min/{1.73_m2} Normal >60 [facility] Comment on above: Performed By: #### T PUR, CRTUR, RENL3, URIC3 ####[facility] [place] [address] GFR/1.73 sq M predicted among non-blacks MDRD (S/P/Bld) [Vol rate/Area] 68.4 mL/min/{1.73_m2} Normal >60 [facility] Comment on above: Result Comment: KDIG [...] By: #### T PUR, CRTUR, RENL3, URIC3 ####[facility] [place] [address] Glucose [Mass/Vol] 374 mg/dL High 70-100 [facility] Comment on above: Performed By: #### T PUR, CRTUR, RENL3, URIC3 ####[facility] [place] [address] Urea nitrogen [Mass/Vol] 21 mg/dL High 7-20 [facility] Comment on above: Performed By: #### T PUR, CRTUR, RENL3, URIC3 ####[facility] [place] [address] Albumin [Mass/Vol] 4.1 g/dL Normal 3.5-5.0 [facility] Comment on above: Performed By: #### T PUR, CRTUR, RENL3, URIC3 ####[facility] [place] [address] Chloride [Moles/Vol] 94 mmol/L Low 98-107 [facility] Comment on above: Performed By: #### T PUR, CRTUR, RENL3, URIC3 ####[facility] [place] [address] Potassium [Moles/Vol] 4.0 mmol/L Normal 3.5-5.1 [facility] Comment on above: Performed By: #### T PUR, CRTUR, RENL3, URIC3 ####[facility] [place] [address] Sodium [Moles/Vol] 134 mmol/L Low 135-145 [facility] Comment on above: Performed By: #### T PUR, CRTUR, RENL3, URIC3 ####[facility] [place] [address] Renal Function Panelon 04-20 Albumin [Mass/Vol] 4.1 g/dL 3.5 - 5 g/dL [place], [place] Anion gap [Moles/Vol] 9 mmol/L [place], [place] Calcium [Mass/Vol] 9.6 mg/dL 8.4 - 10. 4 mg/dL [place] Chloride [Moles/Vol] 94 mmol/L Low 98 - 10 7 mmol/L [place] CO2 [Moles/Vol] 32 mmol/L High 22 - 30 mmol/L [place] Creatinine [Mass/Vol] 0.95 mg/dL 0.52 - 1.25 mg/dL [place] EGFR IF NonAfrican [place] 68.4 mL/min >60 [place] Comment on above: KDIGO guidelines pro [...] MDRD (S/P/Bld) [Vol rate/Area] 79.3 mL/min/{1.73_m2} >60 [place] Glucose [Mass/Vol] 374 mg/dL High 70 - 100 mg/dL [place] Interpretation and review of laboratory results Abnormal [place] Phosphate [Mass/Vol] 3.5 mg/dL 2.5 - 4 .5 mg/dL [place] Potassium [Moles/Vol] 4.0 mmol/L 3.5 - 5.1 mmol/L [place] Sodium [Moles/Vol] 134 mmol/L Low 135 - 145 mmol/L [place] Urea nitrogen [Mass/Vol] 21 mg/dL High 7 - 20 mg/dL [place] Uric Acidon 04-20-2020 Urate [Mass/Vol] 5.1 mg/dL Normal 2.5-8.5 [facility] Comment on above: Performed By: #### T PUR, CRTUR, RENL3, URIC3 ####[facility] [place] [address] Urate [Mass/Vol] 5.1 mg/dL 2.5 - 8.5 mg/dL [place] Basic Metabolic Panelon 03-13 Anion gap [Moles/Vol] 10 Normal [facility] Comment on above: Performed By: #### H EMDF, BMP3, TROPN #### [facility] [address] [place] [address] Calcium [Mass/Vol] 9.9 mg/dL Normal 8.4-10.4 [facility] Comment on above: Performed By: #### H EMDF, BMP3, TROPN #### [facility] [address] [place] [address] CO2 [Moles/Vol] 28 mmol/L Normal 22-30 [facility] Comment on above: Performed By: #### H EMDF, BMP3, TROPN #### [facility] [address] [place] [address] Creatinine [Mass/Vol] 0.90 mg/dL Normal 0.52-1.25 [facility] Comment on above: Performed By: #### H EMDF, BMP3, TROPN #### [facility] [address] [place] [address] GFR/1.73 sq M predicted among blacks MDRD (S/P/Bld) [Vol rate/Area] 84.7 mL/min/{1.73_m2} Normal >60 [facility] Comment on above: Performed By: #### H EMDF, BMP3, TROPN #### [facility] [address] [place] [address] GFR/1.73 sq M predicted among non-blacks MDRD (S/P/Bld) [Vol rate/Area] 73.1 mL/min/{1.73_m2} Normal >60 [facility] Comment on above: Result Comment: KDIG [...] tubular creatinine secretion. Performed By: #### H TRELL PERKINS3, TROPN #### [facility] [address] [place] [address] Glucose [Mass/Vol] 355 mg/dL High 70-100 [facility] Comment on above: Performed By: #### H TRELL PERKINS3, TROPN #### [facility] [address] [place] [address] Urea nitrogen [Mass/Vol] 21 mg/dL High 7-20 [facility] Comment on above: Performed By: #### H TRELL PERKINS3, TROPN #### [facility] [address] [place] [address] Chloride [Moles/Vol] 94 mmol/L Low 98-107 [facility] Comment on above: Performed By: #### H TRELL PERKINS3, TROPN #### [facility] [address] [place] [address] Potassium [Moles/Vol] 4.0 mmol/L Normal 3.5-5.1 [facility] Comment on above: Performed By: #### H TRELL PERKINS3, TROPN #### [facility] [address] [place] [address] Sodium [Moles/Vol] 133 mmol/L Low 135-145 [facility] Comment on above: Performed By: #### H TRELL PERKINS3, TROPN #### [facility] [address] [place] [address] Anion gap [Moles/Vol] 10 mmol/L [place] Calcium [Mass/Vol] 9.9 mg/dL 8.4 - 10. 4 mg/dL [place] Chloride [Moles/Vol] 94 mmol/L Low 98 - 10 7 mmol/L [place] CO2 [Moles/Vol] 28 mmol/L 22 - 30 mmol/L [place] Creatinine [Mass/Vol] 0.9 mg/dL 0.52 - 1.25 mg/dL [place] EGFR IF NonAfrican [place] 73.1 mL/min >60 [place] Comment on above: KDIGO guidelines pro [...] MDRD (S/P/Bld) [Vol rate/Area] 84.7 mL/min/{1.73_m2} >60 [place] Glucose [Mass/Vol] 355 mg/dL High 70 - 100 mg/dL [place] Interpretation and review of laboratory results Abnormal [place] Potassium [Moles/Vol] 4.0 mmol/L 3.5 - 5.1 mmol/L [place] Sodium [Moles/Vol] 133 mmol/L Low 135 - 145 mmol/L [place] Urea nitrogen [Mass/Vol] 21 mg/dL High 7 - 20 mg/dL [place] Test Performed by [facility], [address] [place] [address] CR Chest Portableon 04-04-20 20 CR Chest Portable Patient Name: MELANIE FREY Diagnostic Radiology Exam Date/Time 04/04/2020 16:51:47 EDT Exam CR Chest Portable Ordering Physician [id number] TERESA REINOSO Accession Number [id number] CPT4 Codes 84032 () Reason For Exam Chest pain Report [...] Transcribed Date and Time: 04/04/2020 4:51 Normal [facility] ED Provider Noteon 0 ED Provider Note Emergency Department Encounter [facility] ED Patient: Melanie Restrepo : 1965 Date of Evaluation: 04/04/2020 ED Provider: HERMES Carvaajl EDcare was supervised by Dr. Bright who independently examined and evaluated the patient. Please see their attestation note for further details. Chief Complaint Chief Complaint Patient presents with ? Chest Pain Mid-sternal CP that started last night and radiates to her back. Pt stated she is having SOB BUT NOT ANY WORSE THAN NORMAL [place] (Location/Symptom, Timing/Onset, Context/Setting, Quality, Duration, Modifying Factors, [...] otherwise acutely negative except as in the [place]. Past History Past Medical History: Diagnosis Date [...] on phone: None Gets together: None Attends [employer] service: None Active member of club or [...] eGFR 84.7 >60 mL/min EGFR IF NonAfrican Scottish 73.1 >60 mL/min Calcium 9.9 8.4 - [...] # 1.2 1.0 - 4.3 10*3/uL Absolute [place] # 0.4 0.0 - 0.8 10*3/uL Absolute [...] EDT Exam CR Chest Portable Ordering Physician [id number] DUENAS Accession Number [id number] CPT4 Codes 28856 () Reason For Exam Chest pain Report [...] (XYLOCAINE) 5 mL (GI COCKTAIL) ONCE Last MAR action: Given - by JOSE DANIEL LYONS on 04/04/20 at 1755 TERESA MAYA 04/04/20 1628 04/04/20 1627 nitroglycerin (NITRO-BID) 2 % ointment 1 inch ONCE Last SEP action: Given - by ANDRA MCINTYRE on 04/04/20 at 1639 CLINT BRIGHT 04/04/20 1601 04/04/20 1601 aspirin chewable tablet 243 mg ONCE Last SEP action: Given - by ANDRA MCINTYRE on 04/04/20 at 1638 TERESA MAYA Final Impression 1. Chest pain, unspecified [...] the dictating provider for clarification. HERMES Carvajal [employer] HERMES Carvajal 04/05/20 0102 [facility] ED Provider Note Emergency Department Encounter [facility] ED Patient: Melanie Restrepo : 1965 Date of Evaluation: 04/04/2020 ED Supervising Physician: Clint Bright MD I independently examined and evaluated [...] the dictations but occasionally words are mis-transcribed.) Clint Bright MD [employer] Clint Bright MD 04/04/20 1845 Normal [facility] Hemogram (CBC) w/Auto Diffon 04-04-2020 Absolute Baso # 0.0 10*3/uL 0 - 0.2 10*3/uL [place] Absolute Neut # 3.0 10*3/uL 1.8 - 7 10*3/uL [place] Basophils/100 WBC (Bld) 0.1 % 0 - 2 % [place] Eosinophils (Bld) [#/Vol] 0.0 10*3/uL 0 - 0.5 10*3/uL [place] Eosinophils/100 WBC (Bld) 0.0 % Low 1 - 6 % [place] Erythrocyte distribution width (RBC) [Ratio] 16.0 % High 11.5 - 14.5 % [place] Granulocytes/100 WBC (Bld) 65.0 % 40 - 80 % [place] Hematocrit (Bld) [Volume fraction] 38.2 % 35 - 47 % [place] Hemoglobin (Bld) [Mass/Vol] 12.5 g/dL 11.7 - 16 g/dL [place] Interpretation and review of laboratory results Abnormal [place] Lymphocytes (Bld) [#/Vol] 1.2 10*3/uL 1 - 4.3 10*3/uL [place] Lymphocytes/100 WBC (Bld) 27.1 % 20 - 40 % [place] MCH (RBC) [Entitic mass] 28.7 pg 26 - 34 pg [place] MCHC (RBC) [Mass/Vol] 32.8 % 32 - 36 % [place] MCV (RBC) [Entitic vol] 87.7 fL 79 - 98 fL [place] Monocytes (Bld) [#/Vol] 0.4 10*3/uL 0 - 0.8 10*3/uL [place] Monocytes/100 WBC (Bld) 7.8 % 2 - 10 % [place] Platelet mean volume (Bld) [Entitic vol] 9.0 fL 7.4 - 10.4 fL [place] Platelets (Bld) [#/Vol] 102 10*3/uL Low 140 - 440 10*3/uL [place] RBC (Bld) [#/Vol] 4.35 10*6/uL 3.8 - 5.2 10*6/uL [place] WBC (Bld) [#/Vol] 4.6 10*3/uL 3.6 - 10.7 10*3/uL [place] Test Performed by [facility], [address], [place] [address] [place] Hemogram w/ Autodiffon 04-04 Abs Baso Cnt 0.0 10*3/uL Normal 0.0-0.2 [facility] Comment on above: Performed By: #### H EMDF, BMP3, TROPN #### [facility] [address] [place] [address] Abs Neutrophile Cnt 3.0 10*3/uL Normal 1.8-7.0 [facility] Comment on above: Performed By: #### H EMDF, BMP3, TROPN #### [facility] [address] [place] [address] Basophils/100 WBC (Bld) 0.1 % Normal 0.0-2.0 [facility] Comment on above: Performed By: #### H EMDF, BMP3, TROPN #### [facility] [address] [place] [address] Eosinophils (Bld) [#/Vol] 0.0 10*3/uL Normal 0.0-0.5 [facility] Comment on above: Performed By: #### H EMDF, BMP3, TROPN #### [facility] [address] [place] [address] Eosinophils/100 WBC (Bld) 0.0 % Low 1.0-6.0 [facility] Comment on above: Performed By: #### H EMDF, BMP3, TROPN #### [facility] [address] [place] [address] Erythrocyte distribution width (RBC) [Ratio] 16.0 % High 11.5-14.5 [facility] Comment on above: Performed By: #### H EMDF, BMP3, TROPN #### [facility] [address] [place] [address] Granulocytes/100 WBC (Bld) 65.0 % Normal 40.0-80.0 [facility] Comment on above: Performed By: #### H EMDF, BMP3, TROPN #### [facility] [address] [place] [address] Hematocrit (Bld) [Volume fraction] 38.2 % Normal 35.0-47.0 [facility] Comment on above: Performed By: #### H EMDF, BMP3, TROPN #### [facility] [address] [place] [address] Hemoglobin (Bld) [Mass/Vol] 12.5 g/dL Normal 11.7-16.0 [facility] Comment on above: Performed By: #### H EMDF, BMP3, TROPN #### [facility] [address] [place] [address] Lymphocytes (Bld) [#/Vol] 1.2 10*3/uL Normal 1.0-4.3 [facility] Comment on above: Performed By: #### H EMDF, BMP3, TROPN #### [facility] [address] [place] [address] Lymphocytes/100 WBC (Bld) 27.1 % Normal 20.0-40.0 [facility] Comment on above: Performed By: #### H EMDF, BMP3, TROPN #### [facility] [address] [place] [address] MCH (RBC) [Entitic mass] 28.7 pg Normal 26.0-34.0 [facility] Comment on above: Performed By: #### H EMDF, BMP3, TROPN #### [facility] [address] [place] [address] MCHC (RBC) [Mass/Vol] 32.8 % Normal 32.0-36.0 [facility] Comment on above: Performed By: #### H EMDF, BMP3, TROPN #### [facility] [address] [place] [address] MCV (RBC) [Entitic vol] 87.7 fL Normal 79.0-98.0 [facility] Comment on above: Performed By: #### H EMDF, BMP3, TROPN #### [facility] [address] [place] [address] Monocytes (Bld) [#/Vol] 0.4 10*3/uL Normal 0.0-0.8 [facility] Comment on above: Performed By: #### H EMDF, BMP3, TROPN #### [facility] [address] [place] [address] Monocytes/100 WBC (Bld) 7.8 % Normal 2.0-10.0 [facility] Comment on above: Performed By: #### H EMDF, BMP3, TROPN #### [facility] [address] [place] [address] Platelet mean volume (Bld) [Entitic vol] 9.0 fL Normal 7.4-10.4 [facility] Comment on above: Performed By: #### H EMDF, BMP3, TROPN #### [facility] [address] [place] [address] Platelets (Bld) [#/Vol] 102 10*3/uL Low 140-440 [facility] Comment on above: Performed By: #### H EMDF, BMP3, TROPN #### [facility] [address] [place] [address] RBC (Bld) [#/Vol] 4.35 10*6/uL Normal 3.80-5.20 [facility] Comment on above: Performed By: #### H EMDF, BMP3, TROPN #### [facility] [address] [place] [address] WBC (Bld) [#/Vol] 4.6 10*3/uL Normal 3.6-10.7 [facility] Comment on above: Performed By: #### H EMDF, BMP3, TROPN #### [facility] [address] [place] [address] Troponinon 04-04-2020 Troponin I.cardiac [Mass/Vol] ng/mL 0 - 0.034 ng/mL [place] Comment on above: . Test Performed by [facility], [facility] [address] Troponin Ion 04-04-2020 Troponin I.cardiac [Mass/Vol] ng/mL Normal 0.000-0.034 [facility] Comment on above: Result Comment: . Performed By: #### T ROPN ####[facility] [place] [address] Troponin I.cardiac [Mass/Vol] ng/mL Normal 0.000-0.034 [facility] Comment on above: Result Comment: . Performed By: #### H EMDF, BMP3, TROPN #### [facility] [address] [place] [address] Troponin x1on 04-04-2020 Troponin I.cardiac [Mass/Vol] ng/mL 0 - 0.034 ng/mL [place] Comment on above: . Test Performed by [facility], [address] [place] [address] [place], [place] XR CHEST PORTABLEon 04-04-20 Patient Name: MELANIE FREY ---Diagnostic Radiology--- Exam Date/Time 04/04/2020 16:51:47 EDT Exam CR Chest Portable Ordering Physician [id number] DUENAS Accession Number [id number] CPT4 Codes 69812 () Reason For Exam Chest pain Report [...] NICHOLAS Transcribed Date and Time: 04/04/2020 4:51 [place] Incoming Radiology Results From [facility] - 04/04/2020 4:52 PM EDT Patient Name: MELANIE RESTREPO ---Diagnostic Radiology--- Exam Date/Time 04/04/2020 16:51:47 EDT Exam CR Chest Portable Ordering Physician [id number] DUENAS Accession Number [id number] CPT4 Codes 27275 () Reason For Exam Chest pain Report [...] NICHOLAS Transcribed Date and Time: 04/04/2020 4:51 [place] JENELLE JOVANNY DIGITAL SCREEN BILA TERALon 02-07-2020 Patient Name: MELANIE FREY ---Mammography--- Exam Date/Time 02/07/2020 08:18:15 EDT Exam MG Breast Tomosynthesis BI Scr Ordering Physician MD CHEVY, GIO KOWALSKI Accession Number [id number] CPT4 Codes 01193 (MG Breast Tomosynthesis Scr Bl), 29046 (MG MAMMO 2D SCREENING) Reason For Exam [...] MG breast tomosynthesis bl scr performed at [facility] at [facility]. April 19, 2017, bilateral MG breast tomosynthesis bl performed at [facility]. February 24, 2016, bilateral screening mammogram performed at [facility] at [facility]. TISSUE DENSITY: BIRADS B - There are scattered fibroglandular densities. . FINDINGS: No suspicious masses, architectural distortions or suspiciously clustered microcalcifications are identified. There is no evidence of skin thickening or nipple retraction. There are no significant changes when compared with prior studies. Markings on images: BB's = Nipples; skin lesions Open [place] = Palpable Line = Scar 2D digital [...] am Signed by: MD GALA, TATUM Pan [facility] Incoming Radiology Results From [facility] - 02/07/2020 10:37 AM EDT Patient Name: MELANIE RESTREPO ---Mammography--- Exam Date/Time 02/07/2020 08:18:15 EDT Exam MG Breast Tomosynthesis BI Scr Ordering Physician MD CHEVY, GIO KOWALSKI Accession Number [id number] CPT4 Codes 52224 (MG Breast Tomosynthesis Scr Bl), 59486 (MG MAMMO 2D SCREENING) Reason For Exam [...] MG breast tomosynthesis bl scr performed at [facility] at [facility]. April 19, 2017, bilateral MG breast tomosynthesis bl performed at [facility]. February 24, 2016, bilateral screening mammogram performed at [facility] at [facility]. TISSUE DENSITY: BIRADS B - There are scattered fibroglandular densities. . FINDINGS: No suspicious masses, architectural distortions or suspiciously clustered microcalcifications are identified. There is no evidence of skin thickening or nipple retraction. There are no significant changes when compared with prior studies. Markings on images: BB's = Nipples; skin lesions Open [place] = Palpable Line = Scar 2D digital [...] 02/07/2020 10:07 am Signed by: MD GALA, [facility], [place] MG Breast Tomosynthesis Scr Blon 02-07-2020 MG Breast Tomosynthesis Scr Bl Patient Name: MELANIE RESTREPO Mammography Exam Date/Time 02/07/2020 08:18:15 EDT Exam MG Breast Tomosynthesis BI Scr Ordering Physician MD CHEVY, GIO KOWALSKI Accession Number [id number] CPT4 Codes 56382 (MG Breast Tomosynthesis Scr Bl), 32038 (MG MAMMO 2D SCREENING) Reason For Exam [...] MG breast tomosynthesis bl scr performed at [facility] at [facility]. April 19, 2017, bilateral MG breast tomosynthesis bl performed at [facility]. February 24, 2016, bilateral screening mammogram performed at [facility] at [facility]. TISSUE DENSITY: BIRADS B - There are scattered fibroglandular densities. . FINDINGS: No suspicious masses, architectural distortions or suspiciously clustered microcalcifications are identified. There is no evidence of skin thickening or nipple retraction. There are no significant changes when compared with prior studies. Markings on images: BB's = Nipples; skin lesions Open [place] = Palpable Line = Scar 2D digital [...] Signed by: MD GALA, TATUM Pan Normal [facility] Uric Acidon 01-23-2020 Urate [Mass/Vol] 4.9 mg/dL Normal 2.5-8.5 [facility] Comment on above: Performed By: #### U RIC3 ####[facility] [place] [address] Urate [Mass/Vol] 4.9 mg/dL 2.5 - 8.5 mg/dL [place] Test Performed by [facility], [facility] [address] , [address] Creatinine, Random Urineon 0 10-12-2019 Creatinine (U) [Mass/Vol] 112.9 mg/dL No Range [place] Test Performed by [facility], [address] , [address] Creatinine, Ur Randomon - Creatinine, Ur Random 112.9 mg/dL Normal No Range [facility] Comment on above: Performed By: #### T PUR, RENL3, CRTUR #### [facility] [address] [place] [address] Protein, Ur Randomon 020 Protein [Mass/Vol] 292 mg/dL High No Range [facility] Comment on above: Performed By: #### T PUR, RENL3, CRTUR #### [facility] [address] [place] [address] Protein, urine, randomon Interpretation and review of laboratory results Abnormal [place] Protein (U) [Mass/Vol] 292 mg/dL High No Range [place] Test Performed by [facility], [address] , [place], [place] [address] [facility], [place] Renal Functionon 10-12-2019 Anion gap [Moles/Vol] 9 Normal [facility] Comment on above: Performed By: #### T PUR, RENL3, CRTUR #### [facility] [address] [place] [address] Calcium [Mass/Vol] 9.6 mg/dL Normal 8.4-10.4 [facility] Comment on above: Performed By: #### T PUR, RENL3, CRTUR #### [facility] [address] [place] [address] CO2 [Moles/Vol] 27 mmol/L Normal 22-30 [facility] Comment on above: Performed By: #### T PUR, RENL3, CRTUR #### [facility] [address] [place] [address] Creatinine [Mass/Vol] 1.05 mg/dL Normal 0.52-1.25 [facility] Comment on above: Performed By: #### T PUR, RENL3, CRTUR #### [facility] [address] [place] [address] GFR/1.73 sq M predicted among blacks MDRD (S/P/Bld) [Vol rate/Area] mL/min/{1.73_m2} Normal >60 [facility] Comment on above: Performed By: #### T PUR, RENL3, CRTUR #### [facility] [address] [place] [address] GFR/1.73 sq M predicted among non-blacks MDRD (S/P/Bld) [Vol rate/Area] 55.0 mL/min/{1.73_m2} Normal >60 [facility] Comment on above: Result Comment: Sour ce- MDRD equation with creatinine calibration to IDMS(NKDEP) eGFR not recommended for drug dose adjustment Performed By: #### T PUR, RENL3, CRTUR #### [facility] [address] [place] [address] Glucose [Mass/Vol] 252 mg/dL High 70-100 [facility] Comment on above: Performed By: #### T PUR, RENL3, CRTUR #### [facility] [address] [place] [address] Phosphate [Mass/Vol] 3.8 mg/dL Normal 2.5-4.5 [facility] Comment on above: Performed By: #### T PUR, RENL3, CRTUR #### [facility] [address] [place] [address] Urea nitrogen [Mass/Vol] 18 mg/dL Normal 7-20 [facility] Comment on above: Performed By: #### T PUR, RENL3, CRTUR #### [facility] [address] [place] [address] Albumin [Mass/Vol] 3.7 g/dL Normal 3.5-5.0 [facility] Comment on above: Performed By: #### T PUR, RENL3, CRTUR #### [facility] [address] [place] [address] Chloride [Moles/Vol] 99 mmol/L Normal 98-107 [facility] Comment on above: Performed By: #### T PUR, RENL3, CRTUR #### [facility] [address] [place] [address] Potassium [Moles/Vol] 4.0 mmol/L Normal 3.5-5.1 [facility] Comment on above: Performed By: #### T PUR, RENL3, CRTUR #### [facility] [address] [place] [address] Sodium [Moles/Vol] 136 mmol/L Normal 135-145 [facility] Comment on above: Performed By: #### T PUR, RENL3, CRTUR #### [facility] [address] [place] [address] Renal Function Panelon 10-11 Albumin [Mass/Vol] 3.7 g/dL 3.5 - 5 g/dL [place], [place] Comment on above: Test Performed by [facility], [address] , [place] [address] Anion gap [Moles/Vol] 9 mmol/L [place], [place] Comment on above: Test Performed by [facility], [address] , [place] [address] Calcium [Mass/Vol] 9.6 mg/dL 8.4 - 10. 4 mg/dL [place] Comment on above: Test Performed by [facility], [address] , [place] [address] Chloride [Moles/Vol] 99 mmol/L 98 - 10 7 mmol/L [place] Comment on above: Test Performed by [facility], [address] , [place] [address] CO2 [Moles/Vol] 27 mmol/L 22 - 30 mmol/L [place] Comment on above: Test Performed by [facility], [address] , [place] [address] Creatinine [Mass/Vol] 1.05 mg/dL 0.52 - 1.25 mg/dL [place] Comment on above: Test Performed by [facility], [address] , [place] [address] EGFR IF NonAfrican [place] 55.0 mL/min >60 [place] Comment on above: Test Performed by [facility], [address] , [place] [address] Source- MDRD equation with creatinine calibration to IDMS(NKDEP) eGFR not recommended for drug dose adjustment GFR/1.73 sq M predicted among blacks MDRD (S/P/Bld) [Vol rate/Area] mL/min/{1.73_m2} >60 mL/min [place] Comment on above: Test Performed by [facility], [address] , [place] [address] Glucose [Mass/Vol] 252 mg/dL High 70 - 100 mg/dL [place] Comment on above: Test Performed by [facility], [address] , [place] [address] Interpretation and review of laboratory results Abnormal [place] Phosphate [Mass/Vol] 3.8 mg/dL 2.5 - 4 .5 mg/dL [place] Comment on above: Test Performed by [facility], [address] , [place] [address] Potassium [Moles/Vol] 4.0 mmol/L 3.5 - 5.1 mmol/L [place] Comment on above: Test Performed by [facility], [address] , [place] [address] Sodium [Moles/Vol] 136 mmol/L 135 - 145 mmol/L [place] Urea nitrogen [Mass/Vol] 18 mg/dL 7 - 20 mg/dL [place] Comment on above: Test Performed by [facility], [address] , [place] [address] Test Performed by [facility], [address] , [address] Nav 09-24-2019 CNPN Telephone ([facility]) -- MELANIE RESTREPO ([id number]) 1965 F Date Time Provider Department 09/24/19 DANI (PHARMACIST)RODNEY [facility] During your visit today, we recorded the following information about you: SHER CARDENAS 09/24/2019 3:40 PM Signed Negative COVID-19 Testing COVID-19 Test Results Contacted patient on behalf of the [facility] Emergency Department to communicate updated results from a recent visit. Verified patient with two identifiers and updated on negative COVID-19 test results. Patient instructed that quarantine can be discontinued and that patient should contact employer to discuss return to work. Patient advised that negative testing results will be available for viewing in [employer]. If unable to access or enroll in [employer], patient instructed that results may be obtained by contacting a primary care physician or contacting the [facility] at and requesting to speak with Medical Records. Patient instructed to seek emergency medical care and call 911 if any difficulty breathing, chest pain, or if any other significant health concerns. Patient instructed to contact the primary care physician or schedule a [facility] Express Care Online or return to the [...] are not readily available, use alcohol-based hand school cafeteria cook head that contains at least 60% alcohol; cover [...] COVID-19 Resources Encouraged patient to contact the [place] Hotline for additional COVID-19 questions ([phone] or ) which is open daily to [...] Encounter Status:Closed by DANI (PHARMACIST)RODNEY on 09/24/19 [facility] 09-23-2019 [facility] HNO ID: [id number] Author: SANGEETA Bowers (Ct) Service: ? Author Type: Clinical Stick Feeder Type: Allied Health Filed: 09/23/2019 2:58 PM [...] SANGEETA Bowers September 23, 2019 2:[facility] ) -- MELANIE RESTREPO ([id number]) 1965 F Date Time Provider Department 09/23/19 [...] x 2-3 days. She works in a long term. PAST MEDICAL HISTORY Diagnosis Date - Arthritis - DM type 2 (diabetes mellitus, type 2) ([facility]) - Dyslipidemia - HTN (hypertension) - Obesity [...] complication, with long-term current use of insulin ([facility]) - ICD9: 250.00, V58.67, ICD10: E11.9, Z79.4 5. Chronic obstructive pulmonary disease, unspecified COPD type ([facility]) - ICD9: 496, ICD10: J44.9 6. History of pneumonia BP 135/71 (BP Site: Right Arm, BP Position: Sitting, BP Cuff Size: Large Adult) Pulse 76 Temp 36.8 ?C (98.2 ?F) Resp 17 Ht 165.1 cm (5' 5) Wt (!) 138.3 kg (304 lb 12.8 oz) SpO2 96% BMI 50.72 kg/m? Referred to the [facility] ER for further eval Needs further work up that cannot be provided in Exp Care (CXR, nebulizer, etc). 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 Barriers to learning: none. The patient verbalizes understanding and is in agreement with plan of care. [facility] ER called and report given. Patient wearing mask and driving self. CARMEN Bay PA-C, [place] 09/23/2019 12:56 PM Signed ASSESSMENT/PLAN: 1. Cough - 2. Chills - 3. Dyspnea, unspecified type - 4. Type 2 diabetes mellitus without complication, with long-term current use of insulin 5. Chronic obstructive pulmonary disease, unspecified COPD type (HCC) 6. 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 Barriers to learning: none. The patient verbalizes understanding and is in agreement with plan of care. 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 Normal SARS CoV 2 (Agent of COVID 19) Not Detected by PCR. [facility] Comment on above: Result Comment: This test was developed and its performance characteristics determined by [facility] [place]. This test has been authorized by FDA [...] 2019. Performed By: #### C OVID #### [facility] [address] [phone] COVID 19 Result OP Refer to result for COVID 19 when completed. 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 Author Type: Registered Nurse Type: ED Notes Filed: 09/23/2019 3:45 PM Note Text: Reviewed DC instructions with patient. No additional questions. Patient ambulated out on her own. [facility] ED NOTE HNO ID: [id number] Author: Wilma (Rn) ANTOINE Bingham Service: ? Author Type: Registered Nurse Type: ED Notes Filed: 09/23/2019 1:38 PM Note Text: Pt to ED c/o sore throat on Wednesday, now with cough, chills, SOB and BOND. Seen at [facility], sent for r/o pneumonia and may need viral swabs. [facility] ED PROV NOTEon 09-23-2019 ED PROV NOTE HNO ID: [id number] Author: Ashley Holden MD Service: ? Author [...] ago. 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 XR CHEST 2V FRONTAL/LAT Final Result IMPRESSION: Stable chest. No acute cardiopulmonary process. Hot Room Attendant: PSCB Transcribe Date/Time: Sep 23 2019 3:00P [...] stable SIGNATURE: MD Ashley Izquierdo MD 09/23/[address] [place] [address] PROGRESSon 09-23-2019 PROGRESS HNO ID: [id number] Author: Anne Fernández (Carmen) HERMES Spencer Service: ? Author Type: Physician Cad Librarian Type: Progress Notes Filed: 09/23/2019 1:33 PM Note Text: 09/23/2019 Patient presents with: Cough Sore Throat Triage: 54 yo female with DM II, COPD, and h/o inpatient pneumonia that is here for cough, dyspnea, sore throat, and body aches/chills x 2-3 days. She works in a long term. PAST MEDICAL HISTORY Diagnosis Date - Arthritis - DM type 2 (diabetes mellitus, type 2) ([facility]) - Dyslipidemia - HTN (hypertension) - Obesity [...] complication, with long-term current use of insulin ([facility]) - ICD9: 250.00, V58.67, ICD10: E11.9, Z79.4 [...] 96% BMI 50.72 kg/m? Referred to the [facility] ER for further eval Needs further work up that cannot be provided in Exp Care (CXR, nebulizer, etc). 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 Barriers to learning: none. The patient verbalizes understanding and is in agreement with plan of care. [facility] ER called and report given. Patient wearing mask and driving self. Anne Spencer PA-C Normal [facility] Rapid PCR FLU/RSVon 09-23-19 20 Influenza A PCR Negative [facility] Comment on above: Performed By: #### F LRSV #### [facility] [address] [place] [address] Influenza B PCR Negative [facility] Comment on above: Performed By: #### F LRSV #### [facility] [address] [place] [address] RSV PCR Negative [facility] Comment on above: Performed By: #### F LRSV #### [facility] [address] [place] [address] Specimen source Nom (Unsp spec) Nasopharyngeal Swab [facility] Comment on above: Performed By: #### F LRSV #### [facility] [address] [place] [address] XR CHEST 2V FRONTAL/LATon XR CHEST 2V [...] IMPRESSION: Stable chest. No acute cardiopulmonary process. Hot Room Attendant: PSCB Transcribe Date/Time: Sep 23 2019 3:00P Dictated by : SUNITHA EVERETT MD This examination was interpreted and the report reviewed and electronically signed by: SUNITHA EVERETT MD on Sep 23 2019 3:01PM EST [id number] Normal [facility] Glucose,Bedsideon 06-06-2018 Glucose mass conc 301 mg/dL High [address] Comment on above: Result Comment: Test performed by glucose meter. Results may be 10%-15% lowerthan serum/plasma values. (CLIA ID [id number]) Performed By: #### B GLU ####[facility] [place] [phone] Glucose mass conc 247 mg/dL High [address] Comment on above: Result Comment: Test performed by glucose meter. Results may be 10%-15% lowerthan serum/plasma values. (CLIA ID [id number]) Performed By: #### B GLU ####[facility] [place] [address] Glucose mass conc 283 mg/dL High [address] Comment on above: Result Comment: Test performed by glucose meter. Results may be 10%-15% lowerthan serum/plasma values. (CLIA ID [id number]) Performed By: #### B GLU ####[facility] [address] Basic Metabolic Panelon 11-2 Anion gap 3 molar conc 10 Normal [facility] Comment on above: Performed By: #### H GREGORIO BMP3M ####[address] Calcium mass conc 9.1 mg/dL Normal 8.4-10.4 [facility] Comment on above: Performed By: #### H GREGORIO BMP3M ####[address] CO2 molar conc 27 mmol/L Normal 22-30 [facility] Comment on above: Performed By: #### H GREGORIO BMP3M ####[address] Glucose mass conc 312 mg/dL High 70-100 [facility] Comment on above: Performed By: #### Selam PERKINS BMP3M ####[address] Urea nitrogen mass conc 19 mg/dL Normal 7-20 [facility] Comment on above: Performed By: #### H GREGORIO BMP3M ####[address] Creatinine mass conc 0.87 mg/dL Normal 0.52-1.25 [facility] Comment on above: Performed By: #### Selam PERKINS BMP3M ####[address] GFR/1.73 sq M predicted among blacks MDRD vol rate/area (S/P/Bld) mL/min/{1.73_m2} Normal >60 [facility] Comment on above: Performed By: #### H GREGORIO BMP3M ####[address] GFR/1.73 sq M predicted among non-blacks MDRD vol rate/area (S/P/Bld) mL/min/{1.73_m2} Normal >60 [facility] Comment on above: Result Comment: Sour ce- MDRD equation with creatinine calibration to IDMS(NKDEP) eGFR not recommended for drug dose adjustment Performed By: #### H GREGORIO BMP3M ####[facility] [id number] [place] [address] Chloride molar conc 99 mmol/L Normal 98-107 [facility] Comment on above: Performed By: #### H GREGORIO BMP3M ####[facility] [id number] [place] [address] Potassium molar conc 4.6 mmol/L Normal 3.5-5.1 [facility] Comment on above: Performed By: #### H GREGORIO BMP3M ####[facility] [id number] [place] [address] Sodium molar conc 136 mmol/L Low 137-145 [facility] Comment on above: Performed By: #### H GREGORIO BMP3M ####[facility] [place] [address] Diagnostic Catherizationon 1 08-03-2017 Diagnostic Catherization Patient Name: MELANIE RESTREPO [employer] Clearing Agent Exam Date/Time 06/03/2018 11:35:14 EST Exam Diagnostic Catherization Ordering Physician MD PRESTON MUHAMMAD A Accession Number [id number] Reason For Exam Chest pain, unspecified Report [facility] --- CARDIAC CATHETERIZATION Patient: [...] left coronary angiography. A 5Fr x 100cm [place] Radial catheter was advanced into the left [...] ITROGLYCERIN (IA), 200mcg, NITROGLYCERIN (IA). Verapamil (Isoptin, [place], [place] ra), 2.5mg, VERAPAMIL. Heparin, 3000units, HEPARIN. Fentanyl, [...] Signed by: MD PRESTON MUHAMMAD A Normal [facility] Hemogram w/ Autodiffon 06-03 Abs Baso Cnt 0.0 10*3/uL Normal 0.0-0.2 [facility] Comment on above: Performed By: #### H GREGORIO BMP3M ####[id number] [place], [place] Abs Neutrophile Cnt 2.4 10*3/uL Normal 1.8-7.0 [facility] Comment on above: Performed By: #### H GREGORIO BMP3M ####[address] Basophils/100 WBC Auto (Bld) 0.4 % Normal 0.0-2.0 [facility] Comment on above: Performed By: #### H GREGORIO BMP3M ####[address] Eosinophils Auto #/vol (Bld) 0.0 10*3/uL Normal 0.0-0.5 [facility] Comment on above: Performed By: #### H GREGORIO BMP3M ####[address] Eosinophils/100 WBC Auto (Bld) 0.2 % Low 1.0-6.0 [facility] Comment on above: Performed By: #### H GREGORIO BMP3M ####[address] Erythrocyte distribution width Auto Ratio (RBC) 16.3 % High 11.5-14.5 [facility] Comment on above: Performed By: #### H GREGORIO BMP3M ####[address] Granulocytes/100 WBC (Bld) 61.5 % Normal 40.0-80.0 [facility] Comment on above: Performed By: #### H GREGORIO BMP3M ####[address] Hematocrit Auto Volume Fraction (Bld) 35.7 % Normal 35.0-47.0 [facility] Comment on above: Performed By: #### H GREGORIO BMP3M ####[address] Hemoglobin mass conc (Bld) 11.9 g/dL Normal 11.7-16.0 [facility] Comment on above: Performed By: #### TRELL VALDERRAMA3M ####[address] Lymphocytes Auto #/vol (Bld) 1.2 10*3/uL Normal 1.0-4.3 [facility] Comment on above: Performed By: #### Selam PERKINS BMP3M ####[address] Lymphocytes/100 WBC Auto (Bld) 29.6 % Normal 20.0-40.0 [facility] Comment on above: Performed By: #### Selam PERKINS BMP3M ####[address] MCH Auto Entitic mass (RBC) 29.0 pg Normal 26.0-34.0 [facility] Comment on above: Performed By: #### Selam PERKINS BMP3M ####[address] MCHC Auto mass conc (RBC) 33.3 % Normal 32.0-36.0 [facility] Comment on above: Performed By: #### Selam PERKINS BMP3M ####[address] MCV Auto Entitic volume (RBC) 86.9 fL Normal 79.0-98.0 [facility] Comment on above: Performed By: #### Selam PERKINS BMP3M ####[address] Monocytes Auto #/vol (Bld) 0.3 10*3/uL Normal 0.0-0.8 [facility] Comment on above: Performed By: #### Selam PERKINS BMP3M ####[address] Monocytes/100 WBC Auto (Bld) 8.3 % Normal 2.0-10.0 [facility] Comment on above: Performed By: #### Selam PERKINS BMP3M ####[facility] [address] [place] [address] Platelet mean volume Auto Entitic volume (Bld) 8.7 fL Normal 7.4-10.4 [facility] Comment on above: Performed By: #### H EMDF, BMP3M ####[facility] [address] [place] [address] Platelets Auto #/vol (Bld) 88 10*3/uL Low 140-440 [facility] Comment on above: Performed By: #### H EMDF, BMP3M ####[facility] [address] [place], [place] RBC Auto #/vol (Bld) 4.11 10*6/uL Normal 3.80-5.20 [facility] Comment on above: Performed By: #### H EMDF, BMP3M ####[facility] [address] [place], [place] WBC Auto #/vol (Bld) 3.9 10*3/uL Normal 3.6-10.7 [facility] Comment on above: Performed By: #### H EMDF, BMP3M ####[facility] [address] [place], [place] Vital Signs Date Time Vital Sign Value Performing Clinician Facility 01-09-2025 18:54-0400 Body temperature 98.91 [degF] Gio Ricketts MD Work Phone: [facility] 01-09-2025 18:54-0400 Diastolic blood pressure 70 mm[Hg] Gio Ricketts MD Work Phone: [facility] 01-09-2025 18:54-0400 Heart rate 87 /min Gio Ricketts MD Work Phone: [facility] 01-09-2025 18:54-0400 Respiratory rate 20 /min Gio Ricketts MD Work Phone: [facility] 01-09-2025 18:54-0400 SaO2% (BldA) [Mass fraction] 97 % Gio Ricketts MD Work Phone: [facility] 01-09-2025 18:54-0400 Systolic blood pressure 121 mm[Hg] Gio Ricketts MD Work Phone: [facility] 01-09-2025 18:53-0400 Body height 165.1 cm Gio Ricketts MD Work Phone: [facility] 01-09-2025 18:53-0400 Body mass index (BMI) [Ratio] 43.93 kg/m2 Gio Ricketts MD Work Phone: [facility] 01-09-2025 18:53-0400 Body weight 119.75 kg Gio Ricketts MD Work Phone: [facility] 01-09-2025 03:28-0400 Diastolic blood pressure 76 mm[Hg] Ray Espitia MD Work Phone: [facility] 01-09-2025 03:28-0400 Heart rate 97 /min Ray Espitia MD Work Phone: [facility] 01-09-2025 03:28-0400 Respiratory rate 20 /min Ray Espitia MD Work Phone: [facility] 01-09-2025 03:28-0400 SaO2% (BldA) [Mass fraction] 98 % Ray Espitia MD Work Phone: [facility] 01-09-2025 03:28-0400 Systolic blood pressure 111 mm[Hg] Ray Espitia MD Work Phone: [facility] 01-08-2025 23:43-0400 Body temperature 96.69 [degF] Ray Espitia MD Work Phone: [facility] 12-23-2024 13:41-0400 Body temperature 97.81 [degF] Gio Ricketts MD Work Phone: [facility] 12-23-2024 13:41-0400 Diastolic blood pressure 82 mm[Hg] Gio Ricketts MD Work Phone: [facility] 12-23-2024 13:41-0400 Heart rate 72 /min Gio Ricketts MD Work Phone: [facility] 12-23-2024 13:41-0400 Respiratory rate 16 /min Gio Ricketts MD Work Phone: [facility] 12-23-2024 13:41-0400 SaO2% (BldA) [Mass fraction] 97 % Gio Ricketts MD Work Phone: [facility] 12-23-2024 13:41-0400 Systolic blood pressure 135 mm[Hg] Gio Ricketts MD Work Phone: [facility] 12-23-2024 11:47-0400 Body height 165.1 cm Gio Ricketts MD Work Phone: [facility] 12-23-2024 11:47-0400 Body mass index (BMI) [Ratio] 43.93 kg/m2 Gio Ricketts MD Work Phone: [facility] 12-23-2024 11:47-0400 Body weight 119.75 kg Gio Ricketts MD Work Phone: [facility] 12-19-2024 18:51-0400 Body temperature 98.1 [degF] Amber Kishan DO Work Phone: [facility] 12-19-2024 18:51-0400 Diastolic blood pressure 94 mm[Hg] Amber Kishan DO Work Phone: [facility] 12-19-2024 18:51-0400 Heart rate 82 /min Amber Kishan DO Work Phone: [facility] 12-19-2024 18:51-0400 Respiratory rate 16 /min Amber Kishan DO Work Phone: [facility] 12-19-2024 18:51-0400 SaO2% (BldA) [Mass fraction] 96 % Amber Kishan DO Work Phone: [facility] 12-19-2024 18:51-0400 Systolic blood pressure 163 mm[Hg] Amber Kishan DO Work Phone: [facility] 12-19-2024 18:51-0400 Body height 165.1 cm Amber Kishan DO Work Phone: [facility] 12-19-2024 18:51-0400 Body mass index (BMI) [Ratio] 45.26 kg/m2 Amber Kishan DO Work Phone: [facility] 12-19-2024 18:51-0400 Body weight 123.38 kg Amber Kishan DO Work Phone: [facility] 10-24-2024 07:22-0400 Body mass index (BMI) [Ratio] 44.57 kg/m2 Kassi Bridenthal PRESCHOOL ADVISER - ACCOUNT EXECUTIVE [employer] Work Phone: [facility] 10-24-2024 07:22-0400 Body temperature 97.2 [degF] Kassi Bridenthal PRESCHOOL ADVISER - ACCOUNT EXECUTIVE [employer] Work Phone: [facility] 10-24-2024 07:22-0400 Body weight 123.38 kg Kassi Bridenthal PRESCHOOL ADVISER - ACCOUNT EXECUTIVE [employer] Work Phone: [facility] 10-24-2024 07:22-0400 Diastolic blood pressure 72 mm[Hg] Kassi Bridenthal PRESCHOOL ADVISER - ACCOUNT EXECUTIVE [employer] Work Phone: [facility] 10-24-2024 07:22-0400 Heart rate 63 /min Kassi Bridenthal PRESCHOOL ADVISER - ACCOUNT EXECUTIVE [employer] Work Phone: [facility] 10-24-2024 07:22-0400 Respiratory rate 18 /min Kassi Bridenthal PRESCHOOL ADVISER - ACCOUNT EXECUTIVE [employer] Work Phone: [facility] 10-24-2024 07:22-0400 SaO2% (BldA) [Mass fraction] 95 % Kassi Bridenthal PRESCHOOL ADVISER - ACCOUNT EXECUTIVE [employer] Work Phone: [facility] 10-24-2024 07:22-0400 Systolic blood pressure 124 mm[Hg] Kassi Bridenthal PRESCHOOL ADVISER - ACCOUNT EXECUTIVE [employer] Work Phone: [facility] 09-27-2024 15:05-0400 Body mass index (BMI) [Ratio] 44.25 kg/m2 Jimenez Maddox MD Work Phone: [facility] 09-27-2024 15:05-0400 Body weight 122.47 kg Jimenez Maddox MD Work Phone: [facility] 09-27-2024 14:42-0400 Body temperature 99.19 [degF] Jimenez Maddox MD Work Phone: [facility] 09-27-2024 14:42-0400 Diastolic blood pressure 100 mm[Hg] Jimenez Maddox MD Work Phone: [facility] 09-27-2024 14:42-0400 Heart rate 100 /min Jimenez Maddox MD Work Phone: [facility] 09-27-2024 14:42-0400 Respiratory rate 15 /min Jimenez Maddox MD Work Phone: [facility] 09-27-2024 14:42-0400 SaO2% (BldA) [Mass fraction] 97 % Jimenez Maddox MD Work Phone: [facility] 09-27-2024 14:42-0400 Systolic blood pressure 165 mm[Hg] Jimenez Maddox MD Work Phone: [facility] 08-25-2024 13:55-0500 Body temperature 97 [degF] Kate Desir PRESCHOOL ADVISER - ACCOUNT EXECUTIVE [employer] Work Phone: [facility] Comment on above: Patient Reported 08-25-2024 13:55-0500 Heart rate 73 /min Kate Desir PRESCHOOL ADVISER - ACCOUNT EXECUTIVE [employer] Work Phone: [facility] 08-25-2024 13:55-0500 SaO2% (BldA) [Mass fraction] 97 % Kate Desir PRESCHOOL ADVISER - ACCOUNT EXECUTIVE [employer] Work Phone: [facility] 08-01-2024 07:35-0500 Body mass index (BMI) [Ratio] 44.25 kg/m2 Kassi Seymour PRESCHOOL ADVISER - ACCOUNT EXECUTIVE [employer] Work Phone: [facility] 08-01-2024 07:35-0500 Body temperature 96.91 [degF] Kassi Bridenthal PRESCHOOL ADVISER - ACCOUNT EXECUTIVE [employer] Work Phone: [facility] 08-01-2024 07:35-0500 Body weight 122.47 kg Kassi Bridenthal PRESCHOOL ADVISER - ACCOUNT EXECUTIVE [employer] Work Phone: [facility] 08-01-2024 07:35-0500 Diastolic blood pressure 81 mm[Hg] Kassi Bridenthal PRESCHOOL ADVISER - ACCOUNT EXECUTIVE [employer] Work Phone: [facility] 08-01-2024 07:35-0500 Heart rate 72 /min Kassi Bridenthal PRESCHOOL ADVISER - ACCOUNT EXECUTIVE [employer] Work Phone: [facility] 08-01-2024 07:35-0500 Respiratory rate 18 /min Kassi Bridenthal PRESCHOOL ADVISER - ACCOUNT EXECUTIVE [employer] Work Phone: [facility] 08-01-2024 07:35-0500 SaO2% (BldA) [Mass fraction] 94 % Kassi Bridenthal PRESCHOOL ADVISER - ACCOUNT EXECUTIVE [employer] Work Phone: [facility] 08-01-2024 07:35-0500 Systolic blood pressure 137 mm[Hg] Kassi Bridenthal PRESCHOOL ADVISER - ACCOUNT EXECUTIVE [employer] Work Phone: [facility] 02-26-2024 08:09-0400 Body mass index (BMI) [Ratio] 44.25 kg/m2 Nelson Grady MD Work Phone: [facility] 02-26-2024 08:09-0400 Body temperature 97.7 [degF] Nelson Grady MD Work Phone: [facility] 02-26-2024 08:09-0400 Body weight 122.47 kg Nelson Grady MD Work Phone: [facility] 02-26-2024 08:09-0400 Diastolic blood pressure 94 mm[Hg] Nelson Grady MD Work Phone: [facility] 02-26-2024 08:09-0400 Heart rate 80 /min Nelson Grady MD Work Phone: [facility] 02-26-2024 08:09-0400 Respiratory rate 12 /min Nelson Grady MD Work Phone: [facility] 02-26-2024 08:09-0400 SaO2% (BldA) [Mass fraction] 96 % Nelson Grady MD Work Phone: [facility] 02-26-2024 08:09-0400 Systolic blood pressure 170 mm[Hg] Nelson Grady MD Work Phone: [facility] 02-19-2024 15:22-0400 Diastolic blood pressure 92 mm[Hg] Gio Ricketts MD Work Phone: [facility] 02-19-2024 15:22-0400 Heart rate 71 /min Gio Ricketts MD Work Phone: [facility] 02-19-2024 15:22-0400 Respiratory rate 18 /min Gio Ricketts MD Work Phone: [facility] 02-19-2024 15:22-0400 SaO2% (BldA) [Mass fraction] 100 % Gio Ricketts MD Work Phone: [facility] 02-19-2024 15:22-0400 Systolic blood pressure 144 mm[Hg] Gio Ricketts MD Work Phone: [facility] 02-19-2024 10:56-0400 Body mass index (BMI) [Ratio] 45.07 kg/m2 Gio Ricketts MD Work Phone: [facility] 02-19-2024 10:56-0400 Body temperature 97.39 [degF] Gio Ricketts MD Work Phone: [facility] 02-19-2024 10:56-0400 Body weight 124.74 kg Gio Ricketts MD Work Phone: [facility] 12-13-2023 20:36-0400 Body temperature 98.01 [degF] Victorino Akins MD Work Phone: [facility] 12-13-2023 20:02-0400 Diastolic blood pressure 72 mm[Hg] Victorino Akins MD Work Phone: [facility] 12-13-2023 20:02-0400 Heart rate 74 /min Victorino Akins MD Work Phone: [facility] 12-13-2023 20:02-0400 Respiratory rate 16 /min Victorino Akins MD Work Phone: [facility] 12-13-2023 20:02-0400 SaO2% (BldA) [Mass fraction] 93 % Victorino Akins MD Work Phone: [facility] 12-13-2023 20:02-0400 Systolic blood pressure 126 mm[Hg] Victorino Akins MD Work Phone: [facility] 12-13-2023 18:46-0400 Body height 166.4 cm Victorino Akins MD Work Phone: [facility] 12-13-2023 18:46-0400 Body mass index (BMI) [Ratio] 44.25 kg/m2 Victorino Akins MD Work Phone: [facility] 12-13-2023 18:46-0400 Body weight 122.47 kg Victorino Akins MD Work Phone: [facility] 12-04-2023 18:09-0400 Body temperature 98.2 [degF] Gio Ricketts MD Work Phone: [facility] 12-04-2023 18:09-0400 Diastolic blood pressure 88 mm[Hg] Gio Ricketts MD Work Phone: [facility] 12-04-2023 18:09-0400 Heart rate 76 /min Gio Ricketts MD Work Phone: [facility] 12-04-2023 18:09-0400 Respiratory rate 18 /min Gio Ricketts MD Work Phone: [facility] 12-04-2023 18:09-0400 SaO2% (BldA) [Mass fraction] 97 % Gio Ricketts MD Work Phone: [facility] 12-04-2023 18:09-0400 Systolic blood pressure 145 mm[Hg] Gio Ricketts MD Work Phone: [facility] 11-11-2023 07:16-0400 Body mass index (BMI) [Ratio] 45.93 kg/m2 Kassi Bridenthal PRESCHOOL ADVISER - ACCOUNT EXECUTIVE [employer] Work Phone: [facility] 11-11-2023 07:16-0400 Body temperature 97.7 [degF] Kassi Bridenthal PRESCHOOL ADVISER - ACCOUNT EXECUTIVE [employer] Work Phone: [facility] 11-11-2023 07:16-0400 Body weight 125.19 kg Kassi Bridenthal PRESCHOOL ADVISER - ACCOUNT EXECUTIVE [employer] Work Phone: [facility] 11-11-2023 07:16-0400 Diastolic blood pressure 60 mm[Hg] Kassi Bridenthal PRESCHOOL ADVISER - ACCOUNT EXECUTIVE [employer] Work Phone: [facility] 11-11-2023 07:16-0400 Heart rate 77 /min Kassi Bridenthal PRESCHOOL ADVISER - ACCOUNT EXECUTIVE [employer]RI[employer] Work Phone: [facility] 11-11-2023 07:16-0400 Respiratory rate 16 /min Kassi Bridenthal PRESCHOOL ADVISER - ACCOUNT EXECUTIVE [employer] Work Phone: [facility] 11-11-2023 07:16-0400 SaO2% (BldA) [Mass fraction] 96 % Kassi Bridenthal PRESCHOOL ADVISER - ACCOUNT EXECUTIVE [employer]RI[employer] Work Phone: [facility] 11-11-2023 07:16-0400 Systolic blood pressure 114 mm[Hg] Kassi Bridenthal PRESCHOOL ADVISER - ACCOUNT EXECUTIVE [employer]RI[employer] Work Phone: [facility] 10-13-2023 11:04-0400 Body height 165.1 cm Angel Juan MD Work Phone: [facility] 10-13-2023 11:04-0400 Body mass index (BMI) [Ratio] 45.18 kg/m2 Angel Juan MD Work Phone: [employer] [facility] 10-13-2023 11:04-0400 Body temperature 97.5 [degF] Angel Juan MD Work Phone: [facility] 10-13-2023 11:04-0400 Body weight 123.15 kg Angel Juan MD Work Phone: [facility] 10-13-2023 11:04-0400 Diastolic blood pressure 79 mm[Hg] Angel Juan MD Work Phone: [facility] 10-13-2023 11:04-0400 Heart rate 70 /min Angel Juan MD Work Phone: [facility] 10-13-2023 11:04-0400 SaO2% (BldA) [Mass fraction] 96 % Angel Juan MD Work Phone: [facility] 10-13-2023 11:04-0400 Systolic blood pressure 124 mm[Hg] Angel Juan MD Work Phone: [facility] 10-12-2023 15:31-0400 Body temperature 97.39 [degF] William Mudrakola DO Work Phone: [facility] 10-12-2023 15:31-0400 Diastolic blood pressure 81 mm[Hg] William Mudrakola DO Work Phone: [facility] 10-12-2023 15:31-0400 Heart rate 78 /min William Mudrakola DO Work Phone: [facility] 10-12-2023 15:31-0400 Respiratory rate 18 /min William Mudrakola DO Work Phone: [facility] 10-12-2023 15:31-0400 SaO2% (BldA) [Mass fraction] 97 % William Mudrakola DO Work Phone: [facility] 10-12-2023 15:31-0400 Systolic blood pressure 143 mm[Hg] William Mudrakola DO Work Phone: [facility] 09-22-2023 09:10-0400 Body height 165.1 cm Angel Juan MD Work Phone: [facility] 09-22-2023 09:10-0400 Body mass index (BMI) [Ratio] 45.9 kg/m2 Angel Juan MD Work Phone: [facility] 09-22-2023 09:10-0400 Body temperature 97.9 [degF] Angel Juan MD Work Phone: [facility] 09-22-2023 09:10-0400 Body weight 125.1 kg Angel Juan MD Work Phone: [facility] 09-22-2023 09:10-0400 Diastolic blood pressure 84 mm[Hg] Angel Juan MD Work Phone: [facility] 09-22-2023 09:10-0400 Heart rate 64 /min Angel Juan MD Work Phone: [facility] 09-22-2023 09:10-0400 SaO2% (BldA) [Mass fraction] 96 % Angel Juan MD Work Phone: [facility] 09-22-2023 09:10-0400 Systolic blood pressure 137 mm[Hg] Angel Juan MD Work Phone: [facility] 08-26-2023 09:25-0500 Diastolic blood pressure 77 mm[Hg] Kassi Bridenthal PRESCHOOL ADVISER - ACCOUNT EXECUTIVE [employer]RI[employer] Work Phone: [facility] 08-26-2023 09:25-0500 Heart rate 89 /min Kassi Bridenthal PRESCHOOL ADVISER - ACCOUNT EXECUTIVE [employer]RI[employer] Work Phone: [facility] 08-26-2023 09:25-0500 Systolic blood pressure 136 mm[Hg] Kassi Bridenthal PRESCHOOL ADVISER - ACCOUNT EXECUTIVE [employer]RI[employer] Work Phone: [facility] 08-26-2023 08:25-0500 Body height 165.1 cm Kassi Bridenthal PRESCHOOL ADVISER - ACCOUNT EXECUTIVE [employer]RI[employer] Work Phone: [facility] 08-26-2023 08:25-0500 Body mass index (BMI) [Ratio] 45.86 kg/m2 Kassi aBzanal PRESCHOOL ADVISER - ACCOUNT EXECUTIVE [employer]RI[employer]INESS Work Phone: [facility] 08-26-2023 08:25-0500 Body temperature 99.1 [degF] Kassi Murphyenthal PRESCHOOL ADVISER - ACCOUNT EXECUTIVE [employer]RI[employer] Work Phone: [facility] 08-26-2023 08:25-0500 Body weight 125.01 kg Kassi Murphyenthal PRESCHOOL ADVISER - ACCOUNT EXECUTIVE [employer]RI[employer] Work Phone: [facility] 08-26-2023 08:25-0500 Respiratory rate 24 /min Kassi Bridenthal PRESCHOOL ADVISER - ACCOUNT EXECUTIVE [employer]RI[employer]INESS Work Phone: [facility] 08-26-2023 08:25-0500 SaO2% (BldA) [Mass fraction] 97 % Kassi Bazanal PRESCHOOL ADVISER - ACCOUNT EXECUTIVE [employer]RI[employer]INESS Work Phone: [facility] 05-16-2023 16:20-0500 Diastolic blood pressure 90 mm[Hg] Mariana Snow MD Work Phone: [facility] 05-16-2023 16:20-0500 Heart rate 95 /min Mariana Snow MD Work Phone: [facility] 05-16-2023 16:20-0500 Respiratory rate 18 /min Mariana Snow MD Work Phone: [facility] 05-16-2023 16:20-0500 SaO2% (BldA) [Mass fraction] 97 % Mariana Snow MD Work Phone: [facility] 05-16-2023 16:20-0500 Systolic blood pressure 133 mm[Hg] Mariana Snow MD Work Phone: [facility] 05-16-2023 12:37-0500 Body height 165.1 cm Mariana Snow MD Work Phone: [facility] 05-16-2023 12:37-0500 Body mass index (BMI) [Ratio] 46.76 kg/m2 Mariana Snow MD Work Phone: [facility] 05-16-2023 12:37-0500 Body weight 127.46 kg Mariana Snow MD Work Phone: [facility] 05-16-2023 12:33-0500 Body temperature 97.59 [degF] Mariana Snow MD Work Phone: [facility] 03-15-2023 10:23-0400 Body temperature 96.21 [degF] Yogesh Dodson MD Work Phone: [facility] 03-15-2023 10:23-0400 Diastolic blood pressure 95 mm[Hg] Yogesh Dodson MD Work Phone: [facility] 03-15-2023 10:23-0400 Heart rate 74 /min Yogesh Dodson MD Work Phone: [facility] 03-15-2023 10:23-0400 Respiratory rate 20 /min Yogesh Dodson MD Work Phone: [facility] 03-15-2023 10:23-0400 SaO2% (BldA) [Mass fraction] 98 % Yogesh Dodson MD Work Phone: [facility] 03-15-2023 10:23-0400 Systolic blood pressure 179 mm[Hg] Yogesh Dodson MD Work Phone: [facility] 02-20-2023 07:58-0400 Body temperature 97.81 [degF] Mariana Snow MD Work Phone: [facility] 02-20-2023 07:58-0400 Diastolic blood pressure 85 mm[Hg] Mariana Snow MD Work Phone: [facility] 02-20-2023 07:58-0400 Heart rate 67 /min Mariana Snow MD Work Phone: [facility] 02-20-2023 07:58-0400 Respiratory rate 20 /min Mariana Snow MD Work Phone: [employer] [place] 02-20-2023 07:58-0400 SaO2% (BldA) [Mass fraction] 93 % Mariana Snow MD Work Phone: [employer] [facility] 02-20-2023 07:58-0400 Systolic blood pressure 132 mm[Hg] Mariana Snow MD Work Phone: [employer] [facility] 02-16-2023 08:25-0400 Body mass index (BMI) [Ratio] 48.7 kg/m2 Kassi Bridenthal PRESCHOOL ADVISER - ACCOUNT EXECUTIVE [employer]RI[employer]INESS Work Phone: [employer] 02-16-2023 08:25-0400 Body temperature 96.91 [degF] Kassi Bridenthal PRESCHOOL ADVISER - ACCOUNT EXECUTIVE [employer]RI[employer]INESS Work Phone: [employer] [facility] 02-16-2023 08:25-0400 Body weight 134.81 kg Kassi Bridenthal PRESCHOOL ADVISER - ACCOUNT EXECUTIVE AGRI[employer]INESS Work Phone: [employer] [facility] 02-16-2023 08:25-0400 Diastolic blood pressure 60 mm[Hg] Kassi Bridenthal PRESCHOOL ADVISER - ACCOUNT EXECUTIVE [employer]RI[employer]INESS Work Phone: [employer] [facility] 02-16-2023 08:25-0400 Heart rate 82 /min Kasis Bridenthal PRESCHOOL ADVISER - ACCOUNT EXECUTIVE [employer]RIBUSINESS Work Phone: [employer] [facility] 02-16-2023 08:25-0400 Respiratory rate 18 /min Kassi Bridenthal PRESCHOOL ADVISER - ACCOUNT EXECUTIVE [employer]RIBUSINESS Work Phone: [employer] [facility] 02-16-2023 08:25-0400 SaO2% (BldA) [Mass fraction] 95 % Kassi Bridenthal PRESCHOOL ADVISER - ACCOUNT EXECUTIVE [employer]RIBUSINESS Work Phone: [employer] [facility] 02-16-2023 08:25-0400 Systolic blood pressure 128 mm[Hg] Kassi Bridenthal PRESCHOOL ADVISER - ACCOUNT EXECUTIVE [employer]RIBUSINESS Work Phone: [employer] [facility] 02-13-2023 22:04-0400 Body temperature 98.29 [degF] Nelson Grady MD Work Phone: [facility] 02-13-2023 22:04-0400 Diastolic blood pressure 84 mm[Hg] Nelson Grady MD Work Phone: [facility] 02-13-2023 22:04-0400 Heart rate 74 /min Nelson Grady MD Work Phone: [facility] 02-13-2023 22:04-0400 Respiratory rate 18 /min Nelson Grady MD Work Phone: [facility] 02-13-2023 22:04-0400 SaO2% (BldA) [Mass fraction] 95 % Nelson Grady MD Work Phone: [facility] 02-13-2023 22:04-0400 Systolic blood pressure 136 mm[Hg] Nelson Grady MD Work Phone: [facility] 02-06-2023 21:00-0400 Body height 166.4 cm Izabelawander Noyola DO Work Phone: [facility] 02-06-2023 21:00-0400 Body mass index (BMI) [Ratio] 47.52 kg/m2 Izabela Noyola DO Work Phone: [facility] 02-06-2023 21:00-0400 Body temperature 98.1 [degF] Izabelawander Noyola DO Work Phone: [facility] 02-06-2023 21:00-0400 Body weight 131.54 kg Izabela Noyola DO Work Phone: [facility] 02-06-2023 21:00-0400 Diastolic blood pressure 68 mm[Hg] Izabelawander Noyola DO Work Phone: [employer] [facility] 02-06-2023 21:00-0400 Heart rate 80 /min Izabela Noyola DO Work Phone: [facility] 02-06-2023 21:00-0400 Respiratory rate 16 /min Izabelacipriano Noyola DO Work Phone: [facility] 02-06-2023 21:00-0400 SaO2% (BldA) [Mass fraction] 95 % Izabela Noyola DO Work Phone: [facility] 02-06-2023 21:00-0400 Systolic blood pressure 152 mm[Hg] Izabela Noyola DO Work Phone: [facility] 02-05-2023 00:13-0400 Diastolic blood pressure 78 mm[Hg] Jarvis Belcher MD Work Phone: [facility] 02-05-2023 00:13-0400 Heart rate 70 /min Jarvis Belcher MD Work Phone: [facility] 02-05-2023 00:13-0400 SaO2% (BldA) [Mass fraction] 95 % Jarvis Belcher MD Work Phone: [facility] 02-05-2023 00:13-0400 Systolic blood pressure 138 mm[Hg] Jarvis Belcher MD Work Phone: [facility] 02-04-2023 22:32-0400 Body temperature 97.9 [degF] Jarvis Belcher MD Work Phone: [facility] 02-04-2023 22:32-0400 Respiratory rate 18 /min Jarvis Belcher MD Work Phone: [facility] 02-04-2023 22:30-0400 Body height 165.1 cm Jarvis Belcher MD Work Phone: [facility] 02-04-2023 22:30-0400 Body mass index (BMI) [Ratio] 48.26 kg/m2 Jarvis Belcher MD Work Phone: [facility] 02-04-2023 22:30-0400 Body weight 131.54 kg Jarvis Belcher MD Work Phone: [facility] 01-14-2023 21:53-0400 Body temperature 96.8 [degF] Gio Ricketts MD Work Phone: [facility] 01-14-2023 21:53-0400 Heart rate 80 /min Gio Ricketts MD Work Phone: [facility] 01-14-2023 21:53-0400 SaO2% (BldA) [Mass fraction] 95 % Gio Ricketts MD Work Phone: [facility] 12-09-2022 11:16-0400 Body height 166.4 cm Kassi Bridenthal PRESCHOOL ADVISER - ACCOUNT EXECUTIVE [employer]RI[employer]INESS Work Phone: [facility] 12-09-2022 11:16-0400 Body mass index (BMI) [Ratio] 50.64 kg/m2 Kassi Bridenthal PRESCHOOL ADVISER - ACCOUNT EXECUTIVE [employer]RI[employer]INESS Work Phone: [facility] 12-09-2022 11:16-0400 Body weight 140.16 kg Kassi Bridenthal PRESCHOOL ADVISER - ACCOUNT EXECUTIVE [employer]RIBUSINESS Work Phone: [facility] 12-09-2022 11:16-0400 Diastolic blood pressure 62 mm[Hg] Kassi Bridenthal PRESCHOOL ADVISER - ACCOUNT EXECUTIVE [employer]RIBUSINESS Work Phone: [facility] 12-09-2022 11:16-0400 Heart rate 75 /min Kassi Bridenthal PRESCHOOL ADVISER - ACCOUNT EXECUTIVE [employer]RIBUSINESS Work Phone: [facility] 12-09-2022 11:16-0400 SaO2% (BldA) [Mass fraction] 98 % Kassi Bridenthal PRESCHOOL ADVISER - ACCOUNT EXECUTIVE [employer]RI[employer]INESS Work Phone: [facility] 12-09-2022 11:16-0400 Systolic blood pressure 110 mm[Hg] Kassi Bridenthal PRESCHOOL ADVISER - ACCOUNT EXECUTIVE AGRIBUSINESS Work Phone: [facility] 12-07-2022 10:30-0400 Diastolic blood pressure 70 mm[Hg] Catarino Gombash DO Work Phone: [facility] 12-07-2022 10:30-0400 Heart rate 77 /min Catarino Gombash DO Work Phone: [employer] [facility] 12-07-2022 10:30-0400 Respiratory rate 18 /min Catarino Gombash DO Work Phone: [employer] [facility] 12-07-2022 10:30-0400 SaO2% (BldA) [Mass fraction] 97 % Catarino Gombash DO Work Phone: [facility] 12-07-2022 10:30-0400 Systolic blood pressure 150 mm[Hg] Catarino Arce DO Work Phone: [facility] 12-07-2022 08:34-0400 Body temperature 98.4 [degF] Catarino Arce DO Work Phone: [facility] 04-07-2022 14:13-0400 Body temperature 98 [degF] Dr. Rik Peña Work Phone: [facility] Work Phone: 04-07-2022 14:13-0400 Body weight 143.[address] Rik Peña Work Phone: [facility] Work Phone: 04-07-2022 14:13-0400 Diastolic blood pressure 71 mm[Hg] Dr. Rik Peña Work Phone: [facility] Work Phone: 04-07-2022 14:13-0400 Heart rate 88 /min Dr. Rik Peña Work Phone: [facility] Work Phone: 04-07-2022 14:13-0400 SaO2% (BldA) [Mass fraction] 94 % Dr. Rik Peña Work Phone: [facility] Work Phone: 04-07-2022 14:13-0400 Systolic blood pressure 119 mm[Hg] Dr. Rik Peña Work Phone: [facility] Work Phone: 03-07-2022 04:10-0400 Diastolic blood pressure 68 mm[Hg] Dr. Rik Peña Work Phone: [facility] Work Phone: 03-07-2022 04:10-0400 Heart rate 94 /min Dr. Rik Peña Work Phone: [facility] Work Phone: 03-07-2022 04:10-0400 Respiratory rate 18 /min Dr. Rki Peña Work Phone: [facility] Work Phone: 03-07-2022 04:10-0400 SaO2% (BldA) [Mass fraction] 94 % Dr. Rik Peña Work Phone: [facility] Work Phone: 03-07-2022 04:10-0400 Systolic blood pressure 130 mm[Hg] Dr. Rik Peña Work Phone: [facility] Work Phone: 03-06-2022 23:30-0400 Body height 165.[address] Rki Peña Work Phone: [facility] Work Phone: 03-06-2022 23:30-0400 Body mass index (BMI) [Ratio] 51.5 kg/m2 Dr. Rik Peña Work Phone: [facility] Work Phone: 03-06-2022 23:30-0400 Body temperature 96.6 [degF] Dr. Rik Peña Work Phone: [facility] Work Phone: 03-06-2022 23:30-0400 Body weight 140.[address] Rik Peña Work Phone: [facility] Work Phone: 02-16-2022 15:35-0400 Body mass index (BMI) [Ratio] 51.1 kg/m2 Dr. Rik Peña Work Phone: [facility] Work Phone: 02-16-2022 15:35-0400 Body temperature 98.2 [degF] Dr. Rik Peña Work Phone: [facility] Work Phone: 02-16-2022 15:35-0400 Body weight 139.[address] Rik Peña Work Phone: [facility] Work Phone: 02-16-2022 15:35-0400 Diastolic blood pressure 70 mm[Hg] Dr. Rik Peña Work Phone: [facility] Work Phone: 02-16-2022 15:35-0400 Heart rate 89 /min Dr. Rik Peña Work Phone: [facility] Work Phone: 02-16-2022 15:35-0400 Respiratory rate 18 /min Dr. Rik Peña Work Phone: [facility] Work Phone: 02-16-2022 15:35-0400 SaO2% (BldA) [Mass fraction] 95 % Dr. Rik Peña Work Phone: [facility] Work Phone: 02-16-2022 15:35-0400 Systolic blood pressure 102 mm[Hg] Dr. Rik Peña Work Phone: [facility] Work Phone: 04-04-2020 20:22-0400 BP Diastolic 74 mm[Hg] [facility] [place] 04-04-2020 20:22-0400 BP Systolic 112 mm[Hg] [place] 04-04-[place] 20:22-0400 Pulse (Heart Rate) 91 /min [place] 04-04-2020 20:22-0400 Pulse Oximetry 99 % [place] 04-04-2020 20:22-0400 Respiratory Rate 18 /min Clint Who is [employer] [facility], [place] 04-04-2020 15:43-0400 BMI (Body Mass Index) 51.09 kg/m2 [place] 04-04-2020 15:43-0400 Body Temperature 96.8 [degF] Clint Bright [employer] [facility], [place] 04-04-2020 15:43-0400 Body weight 139.25 kg [facility] [place] Encounters Encounter Date Encounter Type Care Provider Facility Start: 01-09-2025 End: 01-09-2025 Emergency department patient visit [facility] Comment on above: Fall, initial encoun ter (Primary Dx); Acute midline low back pain without sciatica; Contusion of sacrum, initial encounter Start: 01-08-2025 End: 01-09-2025 Emergency department patient visit Ray Espitia MD Work Phone: 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 Comment on above: Skin tag (Primary Dx ); S/P skin biopsy Start: 12-19-2024 End: 12-19-2024 ambulatory [facility] Facility:[facility] Start: 12-18-2024 End: 12-18-2024 ambulatory [facility] Facility:[facility] Start: 12-16-2024 End: 12-16-2024 ambulatory [facility] Facility:[facility] Start: 12-08-2024 End: 12-08-2024 ambulatory [facility] Facility:[facility] Start: 11-29-2024 End: 11-29-2024 ambulatory Deisi Nath Facility:[facility] Start: 11-27-2024 End: 11-27-2024 ambulatory Deisi Nath Facility:[facility] Start: 11-25-2024 End: 11-25-2024 ambulatory Gio Ricketts Facility:[facility] Start: 11-15-2024 End: 11-15-2024 ambulatory Gio Chevy Facility:[facility] Start: 11-10-2024 End: 11-10-2024 ambulatory Deisi Nath Facility:[facility] Start: 11-06-2024 ambulatory Gio Ricketts Facility :[facility] Start: 10-31-2024 End: 10-31-2024 ambulatory Deisi Nath Facility:[facility] Start: 10-31-2024 End: 10-31-2024 ambulatory Gio Ricketts Facility:[facility] Start: 10-24-2024 End: 10-24-2024 Office outpatient visit 25 minutes Kassi Seymour PRESCHOOL ADVISER - ACCOUNT EXECUTIVE [employer] Work Phone: [facility] Comment on above: Type 2 diabetes kyle [...] 2 diabetes mellitus with hyperglycemia, unspecified whether exterminator insulin use (HCC); Yeast dermatitis; Class 3 severe obesity due to excess calories with serious comorbidity and body mass index (BMI) of 40.0 to 44.9 in adult (HCC) Start: 10-24-2024 End: 10-24-2024 ambulatory KASSIYAHIR SEYMOUR [facility] Start: 10-03-2024 End: 10-03-2024 Refill Kassi Hortensiaal PRESCHOOL ADVISER - ACCOUNT EXECUTIVE [employer] Work Phone: [facility] Comment on above: Anxiety; Essential hypertension Start: 09-27-2024 End: 09-27-2024 Emergency department patient visit Jimenez Maddox MD Work Phone: [facility] Comment on above: Hyperglycemia (Prima ry Dx); CARLOS (acute kidney injury) (HCC); Facial flushing Start: 09-27-2024 End: 09-30-2024 ambulatory Debra Wheeler RN [facility] Start: 09-27-2024 End: 09-30-2024 [facility] Start: 09-20-2024 End: 09-20-2024 Refill Kassi Seymour PRESCHOOL ADVISER - ACCOUNT EXECUTIVE [employer]RI[employer] Work Phone: [facility] Comment on above: Type 2 diabetes kyle itus with hyperglycemia, unspecified whether senior care insulin use (HCC) Start: 09-02-2024 End: 09-02-2024 Emergency department patient visit [facility] Facility:[facility] Start: 08-25-2024 End: 08-25-2024 Office outpatient visit 15 minutes Kate Desir PRESCHOOL ADVISER - ACCOUNT EXECUTIVE [employer] Work Phone: [facility] Comment on above: URI with cough and c ongestion (Primary Dx); Chronic bronchitis, unspecified chronic bronchitis type (HCC) Start: 08-02-2024 End: 08-02-2024 Telephone encounter Kassi Seymour PRESCHOOL ADVISER - ACCOUNT EXECUTIVE [employer] Work Phone: [facility] Comment on above: Results Start: 08-01-2024 End: 08-01-2024 Office outpatient visit 25 minutes Kassi Seymour PRESCHOOL ADVISER - ACCOUNT EXECUTIVE [employer] Work Phone: [facility] Comment on above: 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); Low platelet count (HCC); Essential hypertension; Hyperlipidemia LDL goal <70; Obstructive sleep apnea syndrome; Pancytopenia (HCC); Encounter for screening mammogram for malignant neoplasm of breast; Type 2 diabetes mellitus with hyperglycemia, unspecified whether exterminator insulin use (HCC); Other cirrhosis of liver [...] 06-30-2024 End: 06-30-2024 Orders Only Kate Desir PRESCHOOL ADVISER - ACCOUNT EXECUTIVE [employer] Work Phone: [facility] Comment on above: Type 2 diabetes kyle itus with hyperglycemia, unspecified whether exterminator insulin use (HCC) (Primary Dx) Start: 06-28-2024 End: 06-28-2024 Orders Only Kate Nieves Thang PRESCHOOL ADVISER - ACCOUNT EXECUTIVE [employer] Work Phone: [facility] Start: 05-30-2024 End: 05-30-2024 Orders Only Kassi Bridenthal PRESCHOOL ADVISER - ACCOUNT EXECUTIVE [employer] Work Phone: [facility] Comment on above: Chronic bronchitis, unspecified chronic bronchitis type (HCC) (Primary Dx) Start: 05-28-2024 End: 05-29-2024 Refill Kassi Bridenthal PRESCHOOL ADVISER - ACCOUNT EXECUTIVE [employer] Work Phone: [facility] Comment on above: Anxiety; Essential hypertension Start: 05-28-2024 End: 05-29-2024 Refill Kassi Bridenthal PRESCHOOL ADVISER - ACCOUNT EXECUTIVE [employer] Work Phone: [facility] Comment on above: Type 2 diabetes kyle itus with polyneuropathy (HCC) Start: 04-23-2024 End: 04-23-2024 Emergency department patient visit [facility] Facility:[facility] Start: 03-22-2024 End: 03-22-2024 Emergency department patient visit [facility] Facility:[facility] Start: 03-02-2024 End: 03-02-2024 Refill Kassi Bridenthal PRESCHOOL ADVISER - ACCOUNT EXECUTIVE [employer] Work Phone: [facility] Comment on above: Anxiety Start: 02-26-2024 End: 02-26-2024 Emergency department patient visit Nelson Grady MD Work Phone: [facility] Comment on above: Intertrigo (Primary Dx) Start: 02-19-2024 End: 02-19-2024 Emergency department patient visit Gio Ricketts MD Work Phone: [facility] Comment on above: Acute nonintractable headache, unspecified headache type (Primary Dx) Start: 01-03-2024 End: 01-03-2024 Refill Kassi Bridenthal PRESCHOOL ADVISER - ACCOUNT EXECUTIVE [employer] Work Phone: [facility] Comment on above: Anxiety; Essential hypertension; Type 2 diabetes mellitus with polyneuropathy (HCC) Start: 12-13-2023 End: 12-13-2023 Emergency department patient visit Victorino Akins MD Work Phone: [facility] Comment on above: Hypoglycemia (Primar y Dx) Start: 12-04-2023 End: 12-04-2023 Emergency department patient visit Gio Ricketts MD Work Phone: [facility] Comment on above: Type 2 diabetes kyle itus treated with insulin (CMS/HCC) (HCC) (Primary Dx) Start: 11-16-2023 Telephone encounter Brynn Devine RN [facility] Comment on above: Diabetes (CGM Diabet es) Start: 11-11-2023 End: 11-11-2023 Office outpatient visit 25 minutes Kassi Bridenthal PRESCHOOL ADVISER - ACCOUNT EXECUTIVE [employer] Work Phone: [facility] Comment on above: Hyponatremia (Primar y Dx); Type 2 diabetes mellitus with polyneuropathy (HCC); Other cirrhosis of liver (HCC); Pancytopenia (HCC) Start: 10-14-2023 Orders Only Kassi Katherineen thal PRESCHOOL ADVISER - ACCOUNT EXECUTIVE [employer] Work Phone: [facility] Comment on above: Type 2 diabetes kyle itus with polyneuropathy (HCC) (Primary Dx) Start: 10-13-2023 Refill Kassi Briden thal PRESCHOOL ADVISER - ACCOUNT EXECUTIVE [employer] Work Phone: [facility] Comment on above: Type 2 diabetes kyle itus with polyneuropathy (HCC) b12 Start: 10-13-2023 End: 10-13-2023 Office outpatient visit 40 minutes Angel Juan MD Work Phone: [facility] Oncology Comment on above: Pancytopenia (HCC) ( Primary Dx) Start: 10-11-2023 End: 10-12-2023 Emergency department patient visit William Max DO Work Phone: [facility] Medical Surgical Unit MSU 1E Comment on above: Hypoglycemia (Primar y Dx) Start: 09-30-2023 End: 09-30-2023 Subsequent hospital visit by physician Angel Juan MD Work Phone: [facility] Comment on above: Pancytopenia (HCC) Start: 09-22-2023 End: 09-22-2023 Office outpatient new 60 minutes Angel Juan MD Work Phone: [facility] On[facility] Comment on above: Pancytopenia (HCC) ( Primary Dx) Start: 08-26-2023 End: 08-26-2023 Patient encounter procedure Kassi Seymour PRESCHOOL ADVISER - ACCOUNT EXECUTIVE [employer] Work Phone: [facility] Work Phone: Start: 08-26-2023 End: 08-26-2023 Periodic preventive med est patient 40-64yrs Kassi Seymour PRESCHOOL ADVISER - ACCOUNT EXECUTIVE [employer] Work Phone: [facility] Comment on above: Annual physical [...] patient visit Mariana Snow MD Work Phone: [facility] Comment on above: Chest pain, unspecif ied type (Primary Dx) Start: 03-15-2023 End: 03-15-2023 Emergency department patient visit Yogesh Dodson MD Work Phone: [facility] Comment on above: Strain of neck muscl e, initial encounter (Primary Dx) Start: 02-18-2023 End: 02-20-2023 Emergency department patient visit Mariana Snow MD Work Phone: [facility] Comment on above: Hypoglycemia (Primar y Dx) Start: 02-16-2023 End: 02-16-2023 Office outpatient visit 25 minutes Kassi Seymour APRN - ACCOUNT EXECUTIVE [employer] Work Phone: [facility] Comment on above: Lymphopenia (Primary Dx); Thrombocytopenia (HCC); Type 2 diabetes mellitus with polyneuropathy (HCC); Acute pain of left knee; Essential hypertension Start: 02-13-2023 End: 02-13-2023 Emergency department patient visit Nelson Grady MD Work Phone: [facility] Comment on above: Near syncope (Primar y Dx) Start: 02-06-2023 End: 02-06-2023 Subsequent hospital visit by physician [facility] Radiology Comment on above: Arrived Start: 02-06-2023 End: 02-06-2023 Emergency department patient visit Izabela Noyola DO Work Phone: [facility] ED Comment on above: Sprain of left knee, unspecified ligament, initial encounter (Primary Dx) Start: 02-04-2023 End: 02-05-2023 Emergency department patient visit Jarvis Belcher MD Work Phone: [facility] Comment on above: Abscess (Primary Dx) ; Lilly infection Start: 01-14-2023 End: 01-14-2023 Emergency department patient visit Gio Ricketts MD Work Phone: [facility] Comment on above: Fall, initial encoun ter (Primary Dx); Left hand pain; Left wrist pain; Left shoulder pain, unspecified chronicity Start: 12-09-2022 End: 12-09-2022 Office outpatient new 45 minutes Kassi Bridenthal PRESCHOOL ADVISER - ACCOUNT EXECUTIVE [employer] Work Phone: [facility] Comment on above: Lip swelling (Primar y Dx); Type 2 diabetes mellitus with polyneuropathy (HCC); Chronic obstructive pulmonary disease, unspecified COPD type (HCC); Essential hypertension; Hyperlipidemia LDL goal <70; Anxiety Start: 12-07-2022 End: 12-07-2022 Emergency department patient visit Catarino Arce Work Phone: [facility] Comment on above: Angioedema, initial encounter (Primary Dx); Lip swelling; Cold sore Start: 05-22-2022 End: 05-22-[address] Rik Peña Work Phone: [facility] Work Phone: Start: 05-22-2022 End: 05-22-[address] Rik Peña Work Phone: [facility]Laboratory Start: 05-20-2022 End: 05-20-[address] Rik Peña Work Phone: [facility] Work Phone: Start: 05-20-2022 End: 05-20-[address] Rik Peña Work Phone: [facility] Start: 04-07-2022 End: 04-07-[address] Rik Peña Work Phone: [facility] Work Phone: Start: 04-07-2022 End: 04-07-[address] Rik Peña Work Phone: [facility] Start: 03-31-2022 Non-patient / Non-visit Dr. Hermes Peña Work Phone: [facility] Start: 03-31-2022 End: 03-31-[address] Rik Peña Work Phone: [facility]Cardi[facility] Start: 03-06-2022 End: 03-07-2022 Emergency department patient visit Dr. Rik Peña Work Phone: [facility]Emergency Department Start: 02-16-[address] Rik Peña Work Phone: [facility] Start: 02-16-2022 End: 02-16-[address] Rik Peña Work Phone: [facility] Start: 02-09-2022 End: 02-09-2022 Patient encounter procedure [facility]Out[facility] Breast Imaging Start: 11-07-2021 End: 11-07-2021 Patient encounter procedure [facility] Start: 06-14-2020 End: 06-14-2020 Subsequent hospital visit by physician Jeniffer Ramos Work Phone: [facility] Comment on above: Nonintractable heada dara, unspecified chronicity pattern, unspecified headache type; Body aches; Cough; Head congestion; Mid back pain; Chest pain varying with breathing; Hx of bacterial pneumonia; Lab test negative for COVID-19 virus; SOB (shortness of breath) Start: 04-20-2020 End: 04-20-2020 Subsequent hospital visit by physician Dyllan Collins Work Phone: [facility] Laboratory Start: 04-04-2020 End: 04-04-2020 Emergency department patient visit Clint Bright Work Phone: [facility] Comment on above: Chest pain, unspecif ied type (Primary Dx) Start: 02-07-2020 End: 02-07-2020 Subsequent hospital visit by physician Gio Ricketts Work Phone: [facility] Comment on above: Arrived Start: 01-23-2020 End: 01-23-2020 Subsequent hospital visit by physician Dyllan Collins Work Phone: [facility] Laboratory Start: 10-12-2019 End: 10-12-2019 Subsequent hospital visit by physician Dyllan Collins Work Phone: [facility] Laboratory Start: 2018 Evaluation and management of inpatient UNKNOWN PROVIDER [facility] Procedures Date Procedure Procedure Detail Performing Clinician Start: 01-09-2025 End: 01-09-2025 Radex spine lumbosacral 2/3 views Clayton Doe PRESCHOOL ADVISER - ACCOUNT EXECUTIVE [employer] Work Phone: Start: 01-09-2025 Comprehensive metabo lic panel Ray Espitia MD Work Phone: Start: 01-09-2025 Manual Differential panel - Blood Ray Espitia MD Work Phone: Start: 01-09-2025 Ct head/brain w/o co ntrast material Ray Espitia MD Work Phone: Start: 01-09-2025 Ecg routine ecg w/le ast 12 lds trcg only w/o i&r Ray Espitia MD Work Phone: Start: 12-23-2024 Ct lumbar spine w/o contrast material Annalisa Jeter PA-C Work Phone: Start: 12-19-2024 Removal skn tags siding coreboard inspector fibrq tags any area upw/15 Amber Kishan DO Work Phone: Start: 12-18-2024 Colonoscopy Amber [facility] mary DO Work Phone: Start: 09-27-2024 End: 09-27-2024 Basic metabolic panel [...] 1995 panel - S ariana or Plasma Kassi Murphyenthal PRESCHOOL ADVISER - ACCOUNT EXECUTIVE [employer] Work Phone: Start: 08-01-2024 Lipid 1995 panel - S ariana or Plasma Kassi Murphyenthkelly PRESCHOOL ADVISER - ACCOUNT EXECUTIVE [employer] Work Phone: Start: 02-19-2024 Urinalysis complete panel - Urine Dori Solis PRESCHOOL ADVISER - ACCOUNT EXECUTIVE [employer] Work Phone: Start: 02-19-2024 Urnls dip stick/tabl et reagent auto microscopy Dori Solis PRESCHOOL ADVISER - ACCOUNT EXECUTIVE [employer] Work Phone: Start: 02-19-2024 Ct head/brain w/o co ntrast material Dori Solis PRESCHOOL ADVISER - ACCOUNT EXECUTIVE [employer] Work Phone: Start: 02-19-2024 SARS-COV-2, FLU A/B, AND RSV COMBO Dori Solis PRESCHOOL ADVISER - ACCOUNT EXECUTIVE [employer] Work Phone: Start: 02-19-2024 Comprehensive metabo lic panel Dori Solis PRESCHOOL ADVISER - ACCOUNT EXECUTIVE [employer] Work Phone: Start: 02-19-2024 Manual differential performed [Presence] in Blood Dori Solis PRESCHOOL ADVISER - ACCOUNT EXECUTIVE [employer] Work Phone: Start: 12-13-2023 POCT GLUCOSE METER [...] Work Phone: Start: 10-12-2023 POCT GLUCOSE METER Cascade juancarlos Calero MD Work Phone: Start: 10-12-2023 Glucose quantitative blood xcpt reagent strip William Davidla DO Work Phone: Start: 10-12-2023 POCT GLUCOSE METER Cascade juancarlos Calero MD Work Phone: Start: 10-12-2023 Glucose quantitative blood xcpt reagent strip William Yossi DO Work Phone: Start: 10-12-2023 POCT GLUCOSE METER Caity Calero MD Work Phone: Start: 10-11-2023 POCT GLUCOSE METER Caity Calero MD Work Phone: Start: 10-11-2023 End: 10-11-2023 Glucose quantitative blood xcpt reagent strip William Davidla DO Work Phone: Start: 10-11-2023 Ct head/brain [...] Phone: Start: 08-26-2023 Comprehensive metabo lic panel Kassi Bridenthal PRESCHOOL ADVISER - ACCOUNT EXECUTIVE [employer] Work Phone: Start: 08-26-2023 Culture bacterial quanttative colony count urine Kassi Bridenthal PRESCHOOL ADVISER - ACCOUNT EXECUTIVE [employer] Work Phone: Start: 08-26-2023 Lipid panel Kassi Br identhal PRESCHOOL ADVISER - ACCOUNT EXECUTIVE [employer] Work Phone: Start: 08-26-2023 Urnls dip stick/tabl et rgnt non-auto w/o micrscp Kassi Bridenthal PRESCHOOL ADVISER - ACCOUNT EXECUTIVE [employer] Work Phone: Start: 08-26-2023 Lipid 1996 panel - S ariana or Plasma Kassi Bridenthal PRESCHOOL ADVISER - ACCOUNT EXECUTIVE [employer] Work Phone: Start: 05-16-2023 Assay of troponin [...] Phone: Start: 04-04-2020 Assay of troponin quantitative Teresa Maya Work Phone: Start: 04-04-2020 Radiologic exam ches t single view Teresa Maya Work Phone: Start: 04-04-2020 Assay of troponin quantitative Teresa Maya Work Phone: Start: 04-04-2020 Basic metabolic pane l calcium total Teresa Maya Work Phone: Start: 04-04-2020 Blood count complete auto&auto difrntl wbc Teresa Maya Work Phone: Start: 02-07-2020 Screening digital br east tomosynthesis bi Gio Ricketts Work Phone: Start: 01-23-2020 Assay of blood/uric acid Dyllan Collins Work Phone: Start: 10-12-2019 Creatinine other source Dyllan Collins Work Phone: Start: 10-12-2019 Protein total xcpt refractometry urine Dyllan Collins Work Phone: Start: 10-12-2019 Renal function panel Sandy Collins Work Phone: Start: 09-09-2011 Colonoscopy Mariana lara MD Work Phone: Plan of Treatment Date Care Activity Detail Author Start: 2042 RSV Immunization for Adults (1 - 1-dose 75+ series) RSV Immunization for Adults (1 - 1-dose 75+ series) [facility] Start: 12-18-2029 Screening for malignant neoplasm of colon [facility] Start: 2027 RSV Immunization aged 60 or older (1 - 1-dose 60+ series) RSV Immunization aged 60 or older (1 - 1-dose 60+ series) [facility] Start: 04-19-2026 DTaP/Tdap/Td vaccine (2 - Td) DTaP/Tdap/Td vaccine (2 - Td) [facility] [place] Start: 04-19-2026 DTaP/Tdap/Td Vaccines (2 - Td or Tdap) DTaP/Tdap/Td Vaccines (2 - Td or Tdap) [facility] Start: 01-09-2026 Diabetes: Estimated Glomerular Filtration Rate for Kidney Health Diabetes: Estimated Glomerular Filtration Rate for Kidney Health [facility] Start: 12-08-2025 Diabetes: Estimated Glomerular Filtration Rate for Kidney Health Diabetes: Estimated Glomerular Filtration Rate for Kidney Health [facility] Start: 09-27-2025 Diabetes: Estimated Glomerular Filtration Rate for Kidney Health Diabetes: Estimated Glomerular Filtration Rate for Kidney Health [facility] Start: 08-31-2025 Lipid panel Lipid Panel [facility] Start: 08-01-2025 Diabetes: Estimated Glomerular Filtration Rate for Kidney Health Diabetes: Estimated Glomerular Filtration Rate for Kidney Health [facility] Start: 08-01-2025 Diabetes: Urine Albumin-Creatinine Ratio for Kidney Health Diabetes: Urine Albumin-Creatinine Ratio for Kidney Health [facility] Start: 08-01-2025 Diabetic foot examination Diabetes: Foot Exam [facility] Start: 08-01-2025 Glaucoma screening Diabetes: Retinopathy Screening [facility] Comment on above: Postponed from 1977 (Patient Refus ed) Start: 08-01-2025 Hemoglobin A1c measurement Diabetes: Hemoglobin A1C [facility] Start: 08-01-2025 Lipid panel Lipid Panel [facility] Start: 08-01-2025 Screening for malignant neoplasm of cervix Cervical Cancer Screening [facility] Comment on above: Postponed from 1997 (Patient Refus ed) Start: 08-01-2025 Screening for malignant neoplasm of colon Colorectal Cancer Screening [facility] Comment on above: Postponed from 1967 (Patient Refus ed) Start: 03-12-2025 Influenza vaccination [facility] Start: 02-18-2025 Diabetes: Estimated Glomerular Filtration Rate for Kidney Health Diabetes: Estimated Glomerular Filtration Rate for Kidney Health [facility] Start: 01-31-2025 End: 01-31-2025 Patient encounter procedure 01/31/2025 8:40 AM EDT [facility] [address] [place] [address] Bridenthal, Kassi, PRESCHOOL ADVISER - ACCOUNT EXECUTIVE [employer] [address] [place] [address] [facility] Start: 01-29-2025 Depression Monitoring Depression Monitoring [facility] Start: 01-09-2025 End: 01-09-2025 Patient encounter procedure 01/09/2025 8:00 AM EDT Office Visit [facility] [address] [place] [address] [place] [address] Bridenthal, Kassi, PRESCHOOL ADVISER - ACCOUNT EXECUTIVE [employer] [address] [place] [address] [facility] Start: 01-08-2025 Influenza vaccination Influenza Vaccine (#1) [facility] Comment on above: Postponed from 03/12/2024 (Patient Refus ed) Start: 11-10-2024 Diabetes: Estimated Glomerular Filtration Rate for Kidney Health Diabetes: Estimated Glomerular Filtration Rate for Kidney Health [facility] Start: 10-24-2024 End: 10-24-2024 Patient encounter procedure 10/24/2024 7:20 AM EDT Office Visit [facility] [address] [place] [address] [place] [address] Bridenthal, Kassi, PRESCHOOL ADVISER - ACCOUNT EXECUTIVE [employer] [address] [place] [address] [facility] Start: 09-02-2024 End: 08-02-2025 Alanine aminotransferase [Enzymatic activity/volume] in Serum or Plasma ALT Lab Routine Hyperlipidemia LDL goal <70 Expected: 09/02/2024 (Approximate), Expires: 08/02/2025 [facility] Work Phone: Comment on above: Expected: 09/02/2024 (Approximate), Expi res: 08/02/2025 Start: 09-02-2024 End: 08-02-2025 Aspartate aminotransferase [Enzymatic activity/volume] in Serum or Plasma AST Lab Routine Hyperlipidemia LDL goal <70 Expected: 09/02/2024 (Approximate), Expires: 08/02/2025 [facility] Comment on above: Expected: 09/02/2024 (Approximate), Expi res: 08/02/2025 Start: 09-02-2024 End: 08-02-2025 Lipid 1996 panel - Serum or Plasma Lipid panel Lab Routine Hyperlipidemia LDL goal <70 Expected: 09/02/2024 (Approximate), Expires: 08/02/2025 [facility] Comment on above: Expected: 09/02/2024 (Approximate), Expi res: 08/02/2025 Start: 08-31-2024 End: 08-31-2024 Clinical Support 08/31/2024 7:00 AM EST Clinical Support [address] [address] [facility] Start: 08-26-2024 Hemoglobin A1c measurement Diabetes: Hemoglobin A1C [facility] Start: 08-26-2024 Lipid panel Lipid Panel [facility] Start: 08-01-2024 End: 07-31-2025 CBC panel - Blood by Automated count CBC Lab Routine Pancytopenia (HCC) Expected: 08/01/2024 (Approximate), Expires: 07/31/2025 [facility] Comment on above: Expected: 08/01/2024 (Approximate), Expi res: 07/31/2025 Start: 08-01-2024 End: 07-31-2025 Comprehensive metabolic 1998 panel - Serum or Plasma Comprehensive metabolic panel Lab Routine Type 2 diabetes with nephropathy (HCC) Expected: 08/01/2024 (Approximate), Expires: 07/31/2025 [facility] Comment on above: Expected: 08/01/2024 (Approximate), Expi res: 07/31/2025 Start: 08-01-2024 End: 09-28-2025 DBT Breast - bilateral screening Bilateral screening mammogram with tomosynthesis Imaging Routine Encounter for screening mammogram for malignant neoplasm of breast Expected: 08/01/2024, Expires: 09/28/2025 [facility] Comment on above: Expected: 08/01/2024, Expires: Start: 08-01-2024 End: 07-31-2025 Hemoglobin A1c measurement Hemoglobin A1c Lab Routine Type 2 diabetes with nephropathy (HCC) Expected: 08/01/2024 (Approximate), Expires: 07/31/2025 [facility] Comment on above: Expected: 08/01/2024 (Approximate), Expi res: 07/31/2025 Start: 08-01-2024 End: 07-31-2025 Lipid 1996 panel - Serum or Plasma Lipid panel Lab Routine Hyperlipidemia LDL goal <70 Expected: 08/01/2024 (Approximate), Expires: 07/31/2025 [facility] Comment on above: Expected: 08/01/2024 (Approximate), Expi res: 07/31/2025 Start: 08-01-2024 End: 07-31-2025 Microalbumin/Creatinine panel in random Urine Microalbumin / creatinine, urine ratio Lab Routine Type 2 diabetes with nephropathy (HCC) Expected: 08/01/2024 (Approximate), Expires: 07/31/2025 [facility] Work Phone: Comment on above: Expected: 08/01/2024 (Approximate), Expi res: 07/31/2025 Start: 05-13-2024 Glaucoma screening Diabetes: Retinopathy Screening [facility] Comment on above: Postponed from 1977 (Other Patient Reasons) Start: 05-13-2024 Screening for malignant neoplasm of cervix Cervical Cancer Screening [facility] Comment on above: Postponed from 1997 (Other Patient Reasons) Start: 05-12-2024 Screening for malignant neoplasm of colon Colorectal Cancer Screening [facility] Comment on above: Postponed from 1967 (Other Patient Reasons) Start: 04-12-2024 End: 04-12-2024 Patient encounter procedure [facility] Start: 03-12-2024 Influenza vaccination [facility] Start: 02-24-2024 Depression Monitoring Depression Monitoring [facility] Start: 02-24-2024 Depresssion Monitoring Depresssion Monitoring [facility] Start: 02-23-2024 Hemoglobin A1c measurement Diabetes: Hemoglobin A1C [facility] Start: 12-24-2023 End: 12-24-2023 Patient encounter procedure 12/24/2023 7:00 AM EDT Office Visit [facility] [address] [place] [address] [place] [address] Bridenthal, Kassi, PRESCHOOL ADVISER - ACCOUNT EXECUTIVE [employer] [address] [place] [address] [place] [address] [facility] Start: 12-10-2023 Diabetic foot examination Diabetes: Foot Exam [facility] Start: 12-02-2023 End: 12-02-2023 Patient encounter procedure 12/02/2023 8:00 AM EDT Office Visit [facility] [address] [place] [address] [place] [address] Bridenthal, Kassi, PRESCHOOL ADVISER - ACCOUNT EXECUTIVE [employer] [address] [place] [address] [facility] Start: 11-25-2023 End: 11-25-2023 Patient encounter procedure 11/25/2023 8:00 AM EDT Office Visit [facility] [address] [place] [address] Bridenthal, Kassi, PRESCHOOL ADVISER - ACCOUNT EXECUTIVE [employer] [address] [facility] [place] [address] [place] [address] [facility] Start: 11-11-2023 End: 11-10-2024 Basic metabolic 1998 panel - Serum or Plasma Basic metabolic panel Lab Routine Hyponatremia Expected: 11/11/2023 (Approximate), Expires: 11/10/2024 [facility] Work Phone: Comment on above: Expected: 11/11/2023 (Approximate), Expi res: 11/10/2024 Start: 11-11-2023 End: 11-11-2023 Patient encounter procedure 11/11/2023 7:20 AM EDT Office Visit [facility] [address] [place] [address] Kassi Seymour APRN - ACCOUNT EXECUTIVE [employer] [address] [place] [address] [place] [address] [facility] Start: 10-13-2023 End: 10-13-2023 Patient encounter procedure 10/13/2023 11:00 AM EDT Office Visit [facility] [address] [place] [id number] Angel Juan MD [address] [place] [address] [facility] Start: 09-30-2023 End: 09-30-2023 Patient encounter procedure 09/30/2023 8:30 AM EDT Appointment [facility] [address] [place] [address] Angel Juan MD [address] [place] [address] [facility] Start: 09-29-2023 End: 09-21-2024 CBC W Auto Differential panel - Blood CBC auto differential Lab Routine Pancytopenia (HCC) Expected: 09/29/2023 (Approximate), Expires: 09/21/2024 [facility] Work Phone: Comment on above: Expected: 09/29/2023 (Approximate), Expi res: 09/21/2024 Start: 09-29-2023 End: 09-21-2024 Lactate dehydrogenase [Enzymatic activity/volume] in Serum or Plasma by Lactate to pyruvate reaction Lactate dehydrogenase Lab Routine Pancytopenia (HCC) Expected: 09/29/2023 (Approximate), Expires: 09/21/2024 [facility] Comment on above: Expected: 09/29/2023 (Approximate), Expi res: 09/21/2024 Start: 09-22-2023 End: 09-21-2024 Cobalamin (Vitamin B12) [Mass/volume] in Serum or Plasma Vitamin B12 Lab Routine Pancytopenia (HCC) Expected: 09/22/2023 (Approximate), Expires: 09/21/2024 [facility] Comment on above: Expected: 09/22/2023 (Approximate), Expi res: 09/21/2024 Start: 09-22-2023 End: 09-21-2024 Comprehensive metabolic 1998 panel - Serum or Plasma Comprehensive metabolic panel Lab Routine Pancytopenia (HCC) Expected: 09/22/2023 (Approximate), Expires: 09/21/2024 [facility] Comment on above: Expected: 09/22/2023 (Approximate), Expi res: 09/21/2024 Start: 09-22-2023 End: 09-21-2024 Copper, serum Copper, serum Lab Routine Pancytopenia (HCC) Expected: 09/22/2023 (Approximate), Expires: 09/21/2024 [facility] Comment on above: Expected: 09/22/2023 (Approximate), Expi res: 09/21/2024 Start: 09-22-2023 End: 09-21-2024 Ferritin [Mass/volume] in Serum or Plasma Ferritin Lab Routine Pancytopenia (HCC) Expected: 09/22/2023 (Approximate), Expires: 09/21/2024 [facility] Comment on above: Expected: 09/22/2023 (Approximate), Expi res: 09/21/2024 Start: 09-22-2023 End: 09-21-2024 Folate [Mass/volume] in Serum or Plasma Folate Lab Routine Pancytopenia (HCC) Expected: 09/22/2023 (Approximate), Expires: 09/21/2024 [facility] Comment on above: Expected: 09/22/2023 (Approximate), Expi res: 09/21/2024 Start: 09-22-2023 End: 09-21-2024 Homocysteine, serum Homocysteine, serum Lab Routine Pancytopenia (HCC) Expected: 09/22/2023 (Approximate), Expires: 09/21/2024 [facility] Comment on above: Expected: 09/22/2023 (Approximate), Expi res: 09/21/2024 Start: 09-22-2023 End: 09-21-2024 Immunofixation Electrophoresis Immunofixation Electrophoresis Lab Routine Pancytopenia (HCC) Expected: 09/22/2023 (Approximate), Expires: 09/21/2024 [facility] Comment on above: Expected: 09/22/2023 (Approximate), Expi res: 09/21/2024 Start: 09-22-2023 End: 09-21-2024 Iron and Iron binding capacity panel - Serum or Plasma Iron and TIBC Lab Routine Pancytopenia (HCC) Expected: 09/22/2023 (Approximate), Expires: 09/21/2024 [facility] Comment on above: Expected: 09/22/2023 (Approximate), Expi res: 09/21/2024 Start: 09-22-2023 End: 09-21-2024 Methylmalonate [Moles/volume] in Serum or Plasma Methylmalonic acid, serum Lab Routine Pancytopenia (HCC) Expected: 09/22/2023 (Approximate), Expires: 09/21/2024 [facility] Comment on above: Expected: 09/22/2023 (Approximate), Expi res: 09/21/2024 Start: 09-22-2023 End: 09-21-2024 Protein, Total and Protein Electrophoresis Protein, Total and Protein Electrophoresis Lab Routine Pancytopenia (HCC) Expected: 09/22/2023 (Approximate), Expires: 09/21/2024 [facility] Comment on above: Expected: 09/22/2023 (Approximate), Expi res: 09/21/2024 Start: 09-22-2023 End: 09-21-2024 Reticulocytes panel - Blood Reticulocytes Lab Routine Pancytopenia (HCC) Expected: 09/22/2023 (Approximate), Expires: 09/21/2024 [facility] Comment on above: Expected: 09/22/2023 (Approximate), Expi res: 09/21/2024 Start: 09-22-2023 End: 09-21-2024 US Abdomen US abdomen complete Imaging Routine Pancytopenia (HCC) Expected: 09/22/2023, Expires: 09/21/2024 [facility] Comment on above: Expected: 09/22/2023, Expires: Start: 09-22-2023 End: 09-22-2023 Patient encounter procedure 09/22/2023 9:15 AM EDT Office Visit [facility] [address] [place] [id number] Angel Juan MD [address] [facility] [address] [place] [address] [facility] Start: 08-26-2023 End: 08-26-2024 Bacteria identified in Urine by Culture Urine culture (clean catch) Microbiology Routine Urinary tract infection symptoms Expected: 08/26/2023 (Approximate), Expires: 08/26/2024 [facility] Comment on above: Expected: 08/26/2023 (Approximate), Expi res: 08/26/2024 Start: 08-26-2023 End: 08-26-2024 CBC panel - Blood by Automated count CBC Lab Routine Lymphopenia Expected: 08/26/2023 (Approximate), Expires: 08/26/2024 [facility] Comment on above: Expected: 08/26/2023 (Approximate), Expi res: 08/26/2024 Start: 08-26-2023 End: 08-26-2024 Comprehensive metabolic 1998 panel - Serum or Plasma Comprehensive metabolic panel Lab Routine Type 2 diabetes mellitus with polyneuropathy (HCC) Essential hypertension Expected: 08/26/2023 (Approximate), Ex[facility]: [facility] Comment on above: Expected: 08/26/2023 (Approximate), Expi res: 08/26/2024 Start: 08-26-2023 End: 10-24-2024 DBT Breast - bilateral screening Bilateral screening mammogram with tomosynthesis Imaging Routine Encounter for screening mammogram for malignant neoplasm of breast Expected: 08/26/2023, Expires: 10/24/2024 [facility] Comment on above: Expected: 08/26/2023, Expires: Start: 08-26-2023 End: 08-26-2024 Hemoglobin A1c measurement Hemoglobin A1c Lab Routine Type 2 diabetes mellitus with polyneuropathy (HCC) Expected: 08/26/2023 (Approximate), Expires: 08/26/2024 [facility] Comment on above: Expected: 08/26/2023 (Approximate), Expi res: 08/26/2024 Start: 08-26-2023 End: 08-26-2024 Lipid 1996 panel - Serum or Plasma Lipid panel Lab Routine Hyperlipidemia LDL goal <70 Expected: 08/26/2023 (Approximate), Expires: 08/26/2024 [facility] Comment on above: Expected: 08/26/2023 (Approximate), Expi res: 08/26/2024 Start: 08-26-2023 End: 08-26-2024 Microalbumin/Creatinine panel in random Urine Microalbumin / creatinine, urine ratio Lab Routine Type 2 diabetes mellitus with polyneuropathy (HCC) Expected: 08/26/2023 (Approximate), Expires: 08/26/2024 [facility] Comment on above: Expected: 08/26/2023 (Approximate), Expi res: 08/26/2024 Start: 08-20-2023 End: 08-20-2023 Patient encounter procedure 08/20/2023 10:30 AM EST Office Visit [facility] Medicine [address] [place] [id number] Gio Ricketts MD [address] [place] [id number] [facility] Start: 03-12-2023 COVID-19 Vaccine ( season) COVID-19 Vaccine ( season) [facility] Start: 03-12-2023 Influenza vaccination Influenza Vaccine (#1) [facility] Start: 02-22-2023 End: 02-17-2024 CBC W Auto Differential panel - Blood CBC auto differential Lab Routine Lymphopenia Thrombocytopenia (HCC) Expected: 02/22/2023 (Approximate), Expires: 02/17/2024 [facility] Work Phone: Comment on above: Expected: 02/22/2023 (Approximate), Expi res: 02/17/2024 Start: 02-22-2023 End: 02-17-2024 Hemoglobin A1c/Hemoglobin.total in Blood Hemoglobin A1c Lab Routine Type 2 diabetes mellitus with polyneuropathy (HCC) Expected: 02/22/2023 (Approximate), Expires: 02/17/2024 [facility] Comment on above: Expected: 02/22/2023 (Approximate), Expi res: 02/17/2024 Start: 02-22-2023 End: 02-17-2024 Peripheral blood smear Peripheral blood smear Pathology and Cytology Routine Lymphopenia Expected: 02/22/2023 (Approximate), Expires: 02/17/2024 [facility] Comment on above: Expected: 02/22/2023 (Approximate), Expi res: 02/17/2024 Start: 02-22-2023 End: 02-22-2023 Clinical Support 02/22/2023 10:00 AM EDT Clinical Support [facility] Medicine [address] [place] [address] [facility] Start: 02-09-2023 Screening for malignant neoplasm of breast Mammogram [facility] Start: 12-23-2022 End: 12-23-2022 Patient encounter procedure 12/23/2022 Office Visit Family Medicine Kassi Seymour APRN - ACCOUNT EXECUTIVE [employer] [address] [place] [place] [address] [facility] Start: 12-09-2022 End: 12-10-2023 Microalbumin/Creatinine panel in random Urine Microalbumin / creatinine urine ratio Lab Routine Type 2 diabetes mellitus with polyneuropathy (HCC) Expected: 12/09/2022 (Approximate), Expires: 12/10/2023 [facility] Work Phone: Comment on above: Expected: 12/09/2022 (Approximate), Expi res: 12/10/2023 Start: 12-09-2022 End: 12-09-2022 Patient encounter procedure 12/09/2022 Office Visit Family Medicine Kassi Seymour APRN - ACCOUNT EXECUTIVE [employer] [address] [place] [address] [facility] Start: 04-16-2022 Diabetes: Urine Albumin-Creatinine Ratio for Kidney Health Diabetes: Urine Albumin-Creatinine Ratio for Kidney Health [facility] Start: 04-16-2022 Lipid panel Lipid Panel [facility] Start: 04-16-2022 Urine screening for protein Diabetes: Urine Protein Screening [facility] Start: 03-31-2022 Hemoglobin A1c measurement Diabetes: Hemoglobin A1C [facility] Start: 03-07-2022 [facility] Work Phone: Start: 02-06-2022 Screening for malignant neoplasm of breast Breast cancer screen [place] Start: 01-01-2022 COVID-19 Vaccine (3 - Booster for Pfizer series) COVID-19 Vaccine (3 - Booster for Pfizer series) [facility] Start: 01-01-2022 COVID-19 Vaccine (3 - Pfizer series) COVID-19 Vaccine (3 - Pfizer series) [facility] Start: 09-08-2021 Colon cancer screen colonoscopy Colon cancer screen colonoscopy [place], [place] Start: 09-08-2021 Screening for malignant neoplasm of colon [facility] Start: 07-10-2021 Diabetic retinal exam Diabetic retinal exam [place], [place] Start: 06-30-2021 Hemoglobin A1c measurement Diabetes: Hemoglobin A1C [facility] Start: 04-20-2021 Creatinine measurement Creatinine monitoring [place], [place] Start: 04-20-2021 Potassium monitoring Potassium monitoring [place] Start: 02-18-2021 Cervical cancer screen Cervical cancer screen [place] Start: 02-18-2021 Screening for malignant neoplasm of cervix Cervical cancer screen [place] Start: 01-14-2021 Creatinine measurement Creatinine monitoring [place], [place] Start: 01-14-2021 Diabetic foot examination Diabetic foot exam [place] Start: 01-14-2021 HbA1c (Bld) [Mass fraction] A1C test (Diabetic or Prediabetic) [place] Start: 01-14-2021 Lipid panel Lipid screen [place] Start: 01-14-2021 Potassium monitoring Potassium monitoring [place] Start: 01-10-2021 Hepatitis B vaccine (1 of 3 - Risk 3-dose series) Hepatitis B vaccine (1 of 3 - Risk 3-dose series) [place] Comment on above: Postponed from 1986 (Patient Refus ed) Start: 01-10-2021 Pneumococcal 0-64 years Vaccine (1 of 1 - PPSV23) Pneumococcal 0-64 years Vaccine (1 of 1 - PPSV23) [place] Comment on above: Postponed from 1973 (Patient Refus ed) Start: 08-19-2020 End: 08-19-2020 Office Visit 08/19/2020 Office Visit Endocrinology Alverto Orta DO [address] [place], [place] [id number] [facility] Start: 08-13-2020 HbA1c (Bld) [Mass fraction] A1C test (Diabetic or Prediabetic) [place] Start: 07-16-2020 End: 07-16-2020 Office Visit 07/16/2020 Office Visit Family Medicine Gio Ricketts MD [address] [place] [address], [place] [address] [phone] [facility] Start: 07-14-2020 A1C test (Diabetic or Prediabetic) A1C test (Diabetic or Prediabetic) [place] Start: 07-14-2020 Creatinine monitoring Creatinine monitoring [place], [place] Start: 07-14-2020 Potassium monitoring Potassium monitoring [place] Start: 05-13-2020 End: 05-13-2020 Office Visit Endocrinology [place] Start: 04-20-2020 Breast cancer screen Breast cancer screen [place] Start: 04-20-2020 Screening for malignant neoplasm of breast Breast cancer screen [place] Start: 04-13-2020 [object Object] Diabetic foot exam [place] Start: 04-13-2020 Lipid screen Lipid screen [place] Start: 03-12-2020 Influenza vaccination Flu vaccine (#1) [place] Start: 02-11-2020 HIV screen HIV screen [place] Comment on above: Postponed from 1982 (Patient Refus ed) Start: 02-11-2020 HIV screening HIV screen [place] Comment on above: Postponed from 1982 (Patient Refus ed) Start: 02-11-2020 Shingles Vaccine (1 of 2) Shingles Vaccine (1 of 2) [place] Comment on above: Postponed from 2017 (Patient Refus ed) Start: 02-07-2020 End: 02-07-2020 Appointment 02/07/2020 Appointment Radiology Gio Ricketts MD [address] [facility], [place] [address] [phone] [facility] Start: 01-15-2020 End: 01-15-2020 Office Visit [facility] Start: 12-24-2019 Hepatitis B vaccine (1 of 3 - Risk 3-dose series) Hepatitis B vaccine (1 of 3 - Risk 3-dose series) [place] Comment on above: Postponed from 1986 (Patient Refus ed) Start: 10-13-2019 Pneumococcal 0-64 years Vaccine (1 of 1 - PPSV23) Pneumococcal 0-64 years Vaccine (1 of 1 - PPSV23) [place] Comment on above: Postponed from 1973 (Patient Refus ed) Start: 2017 Shingles Vaccine (1 of 2) Shingles Vaccine (1 of 2) [place] Start: 2017 Zoster Vaccines (1 of 2) Zoster Vaccines (1 of 2) [facility] Start: 1997 Screening for malignant neoplasm of cervix [facility] Start: 1988 Screening for malignant neoplasm of cervix Pap Smear [facility] Start: 1986 Hepatitis A Vaccines (1 of 2 - Risk 2-dose series) Hepatitis A Vaccines (1 of 2 - Risk 2-dose series) [facility] Start: 1986 Hepatitis B Vaccines (1 of 3 - 19+ 3-dose series) Hepatitis B Vaccines (1 of 3 - 19+ 3-dose series) [facility] Start: 1986 Pneumococcal Vaccine: 50+ Years (1 of 2 - PCV) Pneumococcal Vaccine: 50+ Years (1 of 2 - PCV) [facility] Start: 1985 Hepatitis C screening Hepatitis C Screening [facility] Start: 1982 HIV screening HIV screen [place] Start: 1979 Depresssion Monitoring Depresssion Monitoring [facility] Start: 1977 Diabetic foot examination Diabetes: Foot Exam [facility] Start: 1977 Glaucoma screening Diabetes: Retinopathy Screening [facility] Start: 1977 Preventive dental service Diabetes: Dental Exam [facility] Start: 1973 Pneumococcal Vaccine: Pediatrics (0 to 5 Years) and At-Risk Patients (6 to 64 Years) (1 - PCV) Pneumococcal Vaccine: Pediatrics (0 to 5 Years) and At-Risk Patients (6 to 64 Years) (1 - PCV) [facility] Start: 1973 Pneumococcal Vaccine: Pediatrics (0 to 5 Years) and At-Risk Patients (6 to 64 Years) (1 of 2 - PCV) Pneumococcal Vaccine: Pediatrics (0 to 5 Years) and At-Risk Patients (6 to 64 Years) (1 of 2 - PCV) [facility] Start: 1968 MMR Vaccines (1 of 1 - Standard series) MMR Vaccines (1 of 1 - Standard series) [facility] Start: 1967 Hepatitis B Vaccines (1 of 3 - 3-dose series) Hepatitis B Vaccines (1 of 3 - 3-dose series) [facility] Start: 1967 HIV screening HIV Screening [facility] Start: 1967 Screening for malignant neoplasm of colon [facility] Copper, serum Copper, serum La b Routine Pancytopenia (HCC) 09/30/2023 8:27 AM EDT [facility] ECG 12 lead ECG 12 lead CV E CG STAT 02/13/2023 7:54 PM EDT [facility] Work Phone: EKG 12 Lead - Chest Pain EKG 12 Lead - Chest Pain ECG STAT 04/04/2020 3:37 PM EDT [place] IgG, IgA, IgM IgG, IgA, IgM La b Routine Pancytopenia (HCC) Ordered: 09/22/2023 [facility] Comment on above: Ordered: 09/22/2023 Immunofixation Electrophoresis Immunofixation Electrophoresis Lab Routine Pancytopenia (HCC) Ordered: 09/22/2023 [facility] Comment on above: Ordered: 09/22/2023 Immunofixation Electrophoresis Immunofixation Electrophoresis Lab Routine Pancytopenia (HCC) 09/30/2023 8:27 AM [facility] Methylmalonate [Moles/volume] in Serum or Plasma Methylmalonic acid, serum Lab Routine Pancytopenia (HCC) 09/30/2023 8:27 AM EDT [facility] OUTSIDE PROCEDURE SCAN OUTSIDE P ROCEDURE SCAN Procedures Ordered: 09/29/2023 [facility] Comment on above: Ordered: 09/29/2023 Patient Education ED Chest Pain, Uncertain Cause [facility] Work Phone: Patient referral [facility] Work Phone: Protein [Mass/volume ] in Serum or Plasma Protein, total Lab Routine Pancytopenia (HCC) Ordered: 09/22/2023 [facility] Comment on above: Ordered: 09/22/2023 Protein, Total and Protein Electrophoresis Protein, Total and Protein Electrophoresis Lab Routine Pancytopenia (HCC) 09/30/2023 8:27 AM T [facility] Serum Electrophoresis Serum Elec trophoresis Lab Routine Pancytopenia (HCC) Ordered: 09/22/2023 [facility] Comment on above: Ordered: 09/22/2023 End: 12-19-2024 Tissue exam [facility] [employer] Work Phone: Comment on above: Once (Lab) for 1 Occurrences starting until 12/19/2024 End: 09-30-2023 US Abdomen [facility] Comment on above: Once for 1 Occurrences starting 09/30/19 24 until 09/30/2023 Immunizations Immunization Date Immunization Notes Care Provider [facility] 05-21-2022 influenza, injectabl e, quadrivalent, preservative free Kassi Seymour PRESCHOOL ADVISER - ACCOUNT EXECUTIVE [employer] Work Phone: [facility] 05-21-2022 influenza virus vaccine, unspecified formulation Gio Ricketts MD Work Phone: [facility] 11-06-2021 Covid-19, Pfizer Gra y Top, Do Not Dilute, (Age 12 Y+), Im, L Kassi Bridenthal PRESCHOOL ADVISER - ACCOUNT EXECUTIVE [employer] Work Phone: [facility] 06-30-2021 Covid (Pfizer) [facility] Work Phone: 06-09-2021 Covid (Pfizer) [facility] Work Phone: 04-25-2021 influenza, injectabl e, quadrivalent, preservative free Kassi Bridenthal PRESCHOOL ADVISER - ACCOUNT EXECUTIVE [employer] Work Phone: [facility] 04-08-2020 influenza, injectabl e, quadrivalent, [facility] preservative [facility] 07-14-2019 influenza, injectabl e, quadrivalent, contains preservative [facility] 04-13-2018 influenza virus vaccine, unspecified formulation [facility] 04-16-2017 influenza virus vaccine, unspecified formulation [facility] 05-06-2016 Influenza Vaccine, unspecified formulation [facility] [place] 05-06-2016 influenza, seasonal, injectable Kassi Bridenthal PRESCHOOL ADVISER - ACCOUNT EXECUTIVE [employer] Work Phone: [facility] 04-19-2016 tetanus toxoid, reduced diphtheria toxoid, and acellular pertussis vaccine, adsorbed [facility] [place] 04-20-2015 influenza virus vaccine, whole virus [facility] 04-19-2014 influenza virus vaccine, unspecified formulation [facility] Payers Date Payer Category Payer Self-pay [id number] 2023 [facility] - [facility] [id number] 2023 Unknown [id number] 2023 Private Health Insurance [facility] Mem norbert [id number] 2023 Unknown 2022 Medicaid [employer] [place] [employer] [place] [id number] 2022-Present [phone] [address] [place] [address] Medicaid HMO [id number] 2020 Unknown [id number] 2018 Private Health Insurance [facility] xxxxxxxxx 2018-Present [phone] [address] [place] [address] xxxxxxxxx [id number] 2018 Private Health Insurance [facility] [id number] 2018-Present [phone] [address] [place] [address] [id number] 2018 Private Health Insurance [id number] 1967 Unknown [id number] 668 Unknown [facility] [id number] Unknown [id number]. 462 Unknown [id number] [id number]. 462 Unknown [id number] 2.16.840.1.817793.3.579.2. 462 Unknown [id number] 2.16.840.1.988164.3.579.2. 462 Unknown [id number] 2.16.840.1.876517.3.579.2. 462 Unknown [id number] 2.16.840.1.758286.3.579.2. 462 Unknown [id number] 2.16.840.1.468368.3.579.2. 462 Unknown [id number] 2.16.840.1.154101.3.579.2. 462 Unknown [id number] 2.840.1.464976.3.579.2. 462 Unknown [id number] 2.840.1.119255.3.579.2. 462 Unknown [id number] 2.16840.1.501577.3.579.2. 462 Unknown [id number] 2.16.840.1.907914.3.579.2. 462 Unknown [id number] 2.16.840.1.182686.3.579.2. 462 Unknown [id number] 2.840.1.394852.3.579.2. 462 Unknown [id number] [id number]. 462 Unknown [id number] 2.840.1.079234.3.579.2. 462 Unknown [id number]. 462 Unknown [id number]. 462 Social History Date Type Detail Facility Start: 08-08-2019 End: 08-01-2024 Tobacco smoking status NHIS Former smoker [facility] End: 09-01-2013 History of tobacco use Current smoker [facility] ALEXUS DELANEY Start: 08-08-2019 End: 01-06-2025 Cigarettes smoked current (pack per day) - Reported [facility] Start: 08-08-2019 Alcohol intake [facility] Start: 1965 Sex Assigned At Female [place] Exposure to SARS-CoV -2 (event) Unable to assess [facility] [place] Start: 01-15-2020 End: 08-01-2024 Tobacco use and exposure Never used [facility] ALEXUS Doss Start: 01-15-2020 End: 01-09-2025 Alcohol intake Ex-drinker (finding) [facility] Collette DELANEY Y Start: 01-11-2020 End: 12-07-2022 History SDOH Alcohol Frequency [address] [facility] [place] Start: 01-11-2020 History SDOH Financial 5 [place] Start: 01-11-2020 History SDOH Transport Med 2 [place] Start: 11-27-2022 End: 03-15-2023 Exposure to SARS-CoV-2 (event) Not sure [place] Exposure to SARS-CoV -2 (event) Yes [place] Start: 06-05-2021 End: 04-08-2022 Tobacco smoking status SDIS Unknown if ever smoked [facility] Work Phone: Start: 08-06-2020 Cigarettes;Cigars [facility] Work Phone: End: 09-01-2013 History of tobacco use Cigarette Smoker [facility] Start: 12-07-2022 History SDOH Alcohol Std Drinks 0 [facility] Start: 12-07-2022 End: 01-06-2025 Alcohol Use Disorder Identification Test - Consumption [AUDIT-C] [facility] How often to you hav e a drink containing alcohol? Never [facility] How many standard dr inks containing alcohol do you have on a typical day? Patient does not drink [facility] How hard is it for y ou to pay for the very basics like food, housing, medical care, and heating Very hard [facility] Start: 04-30-2022 Gender identity Identifies as female gender (finding) [facility] (I/We) worried wheth er (my/our) food would run out before (I/we) got money to buy more. Never true [facility] In the past 12 month s, was there a time when you were not able to pay the mortgage or rent on time? No [facility] Start: 02-09-2022 Sex Female (finding) [facility] How often do you nee d to have someone help you when you read instructions, pamphlets, or other written material from your doctor or pharmacy [SILS] Rarely [facility] Are you now , , , , never or living with a partner? [facility] Do you feel stress - tense, restless, nervous, or anxious, or unable to sleep at night because your mind is troubled all the time - these days [OSQ] Very much [facility] (I/We) worried wheth er (my/our) food would run out before (I/we) got money to buy more. Often true [facility] The food that (I/we) bought just didn't last, and (I/we) didn't have money to get more. Sometimes true [facility] Medical Equipment Procedure Code Equipment Code Equipment Origin al Text Equipment Identifier Dates use as directed three times a day [id number] Start: 08-31-2019 1 each by Does n ot apply route 2 times daily (before meals) [id number] Start: 08-08-2018 1 each by Does n ot apply route 4 times daily [id number] Start: 10-18-2017 1 each by In Vit ro route 4 times daily [id number] Start: 05-17-2020 Unifine Pentips 31G X 8 MM misc [id number] Start: 10-20-2022 End: 08-26-2023 Use as directed with insulin pen [id number] Start: 08-26-2023 End: 05-28-2024 Use as directed with insulin pen [id number] Start: 05-29-2024 End: 08-02-2024 Use as directed with insulin pen [id number] Start: 08-02-2024 Goals Date Patient Goal Desired [...] was advised to call if any questions. Functional Status Date Assessment Result Facility 01-09-2025 Total score [AUDIT-C] 0 01/10/20 6:54 PM EDT Purnima Holloway, RN [facility] Mental Status Date Assessment Result Facility 03-06-2022 Cognitive function Awake;[facility] Work Phone: Clinical Notes 12-07-2022 to 01-09-2025 NICOLE Austin CNP - 01/09/2025 6:52 PM EDTNICOLE Austin CNP - 01/09/2025 6:52 PM EDTDischarge InstructionsAttachmentsRay Espitia MD - 01/08/2025 11:37 PM EDTDischarge Instructions Note Date & Type Note Facility 01-09-2025 Emergency department Note EMERGENCY DEPARTMENT ENCOUNTER Pt Name: Raiza Carey Birthdate 1965 Date of evaluation: 01/09/2025 ED Provider: Clayton Doe, NICOLE - HOLLIE I have evaluated this patient on my own, per my scope of practice with an attending physician available for consultation. CHIEF COMPLAINT Chief Complaint Patient presents with Back Pain Hip Pain Patient reports she fell yesterday. States she was seen last night. HISTORY OF PRESENT ILLNESS (Location/Symptom, Timing/Onset, Context/Setting, Quality, Duration, Modifying Factors, Severity) Note limiting factors. I wore appropriate PPE for the entirety of this encounter. HPI Raiza Carey is a 59 y.o. who presents to the emergency department with chief complaint of low back pain, sacral pain pain across the lower pelvis posteriorly. She was fall couple days ago landed on her buttocks she continues to have pain pain when she gets up and trouble ambulating. She was seen yesterday because she was not feeling like herself she has had some frequent falls she has a history of nonalcoholic cirrhosis her workup and her CAT scan was essentially unremarkable but she still having back pain so she returns for that tonight. Nursing Notes were reviewed. Limitations to history: [...] discharge and vaginal pain. Musculoskeletal: Positive for arthralgias, back pain and myalgias. Skin: Negative for rash and wound. Neurological: Negative for syncope, weakness, light-headedness and headaches. Hematological: Negative for adenopathy. Psychiatric/Behavioral: Negative for agitation and confusion. All other systems reviewed and are negative. Pertinent positives and negatives as per HPI. PAST MEDICAL HISTORY Medical History[1] SURGICAL HISTORY Surgical History[2] CURRENT MEDICATIONS Previous Medications ALBUTEROL 108 (90 BASE) MCG/ACT INHALER Inhale 1 puff every 6 hours as needed for wheezing or shortness of breath. BUPROPION XL (WELLBUTRIN XL) 300 MG 24 HR TABLET Take 1 tablet (300 mg) by mouth every morning. Do not crush, chew, or split. BUSPIRONE (BUSPAR) 10 MG TABLET Take 1 tablet (10 mg) by mouth 2 times daily. CONSTULOSE 10 GM/15ML SOLUTION TAKE 15 ML BY MOUTH ONCE DAILY CONTINUOUS GLUCOSE DYNAMOMETER TESTER ENGINE (FREESTYLE ADIEL 3 READER) DEVICE Check blood sugar 2-4 times daily. CONTINUOUS GLUCOSE SENSOR (FREESTYLE ADIEL 3 SENSOR) MISC every 14 (fourteen) days. CYANOCOBALAMIN (B-12 COMPLIANCE INJECTION) 1000 MCG/ML KIT Inject 1 ml (1000mcg) subcutaneous weekly x 4 then monthly ELIQUIS 2.5 MG TABLET Take 2.5 mg by mouth 2 times daily. GLIMEPIRIDE (AMARYL) 4 MG TABLET Take 1 tablet (4 mg) by mouth daily (with breakfast). LABETALOL (NORMODYNE) 100 MG TABLET Take 1 tablet (100 mg) by mouth 2 times daily. LANTUS SOLOSTAR 100 UNIT/ML PEN INJECT 14 UNITS SUBCUTANEOUSLY NIGHTLY METFORMIN (GLUCOPHAGE) 1000 MG TABLET Take 1 tablet (1,000 mg) by mouth 2 times daily (with meals). NYSTATIN (MYCOSTATIN) 335107 UNIT/GM POWDER Apply topically 2 times daily. ONDANSETRON (ZOFRAN) 4 MG TABLET Take 4 mg by mouth every 6 hours as needed for nausea or vomiting. PANTOPRAZOLE (PROTONIX) 40 MG EC TABLET Take 40 mg by mouth every morning (before breakfast). PEG 6910-NEQ-URQIR-NACL-NASULF (PEG-3350/ELECTROLYTES) 236 G RECONSTITUTED SOLUTION DRINK 240 ML BY MOUTH EVERY 10 MINUTES, DIRECTED FOR SPLIT DOSE BOWEL PREP ROSUVASTATIN (CRESTOR) 5 MG TABLET Take 1 tablet (5 mg) by mouth daily. SPIRONOLACTONE (ALDACTONE) 12.5 MG SPLIT TABLET Take 12.5 mg by mouth daily. TIRZEPATIDE (MOUNJARO) 5 MG/0.5ML SOLUTION AUTO-INJECTOR Inject 5 mg under the skin 1 (one) time per week. TRAMADOL (ULTRAM) 50 MG TABLET TAKE 1 TABLET BY MOUTH TWICE DAILY NEEDED FOR 7 DAYS UNIFINE PENTIPS 31G X 8 MM MISC Use as directed with insulin pen ALLERGIES Cat dander, Lisinopril, Pollen extract, and Xifaxan [rifaximin] FAMILY HISTORY Family History[3] SOCIAL HISTORY Social History[4] SCREENINGS PHYSICAL EXAM ED Triage Vitals [01/09/25 1854] Temp Heart Rate Resp BP 37.2 C (98.9 F) 87 20 121/70 SpO2 Temp Source Heart Rate Source Patient [...] breath sounds. No stridor. No wheezing or rhonchi. Musculoskeletal: Cervical back: Normal range of motion and neck supple. No rigidity or tenderness. Comments: There is tenderness to the lumbar spine in the sacral region. Straight leg raise is negative on the left and right. There is no weakness noted with adduction of either thigh. There is no weakness noted hip flexion, knee extension, knee flexion. There is no weakness noted to dorsiflexion of the foot, dorsiflexion of the great toe or plantarflexion of the foot. Patellar reflexes are 2+ bilaterally. DP pulses are 2+. There are no sensory deficits to the lower extremities, no saddle anesthesia. Sensation is intact to the groin, perianal sensation is intact. Lymphadenopathy: Cervical: No cervical adenopathy. Skin: General: Skin is warm and dry. Capillary Refill: Capillary refill takes less than 2 seconds. Coloration: Skin is not jaundiced or pale. Findings: No bruising or erythema. Neurological: General: No focal deficit present. Mental Status: She is alert and oriented to person, place, and time. Mental status is at baseline. Cranial Nerves: No cranial nerve deficit. Sensory: No sensory deficit. Motor: No weakness. Coordination: Coordination normal. Psychiatric: Mood and Affect: Mood normal. Thought Content: Thought content normal. DIAGNOSTIC RESULTS Procedures/EKG: EKG was reviewed by myself. Physician EKG interpretation can be found in [facility] RADIOLOGY (Per Emergency Physician): Interpretation per the Radiologist below, if available at the time of this note: XR lumbar spine 2 or 3 views Final Result Mild lumbar spondylosis without evidence of an acute fracture or spondylolisthesis. PELVIS, SACRUM AND COCCYX: Indication: Trauma, pain Views: AP pelvis, Lateral and two angled AP views Comparison: None. Findings: There is no evidence for fracture or bone lesion. The sacroiliac joints are unremarkable. Mild bilateral hip osteoarthrosis. IMPRESSION: No fracture or dislocation. Report Dictated on Electronically Signed By: Yogesh Gonzalez MD Electronically Signed Date/Time: 01/09/2025 9:32 PM EDT XR pelvis 1 or 2 views Final Result Mild lumbar spondylosis without evidence of an acute fracture or spondylolisthesis. PELVIS, SACRUM AND COCCYX: Indication: Trauma, pain Views: AP pelvis, Lateral and two angled AP views Comparison: None. Findings: There is no evidence for fracture or bone lesion. The sacroiliac joints are unremarkable. Mild bilateral hip osteoarthrosis. IMPRESSION: No fracture or dislocation. Report Dictated on Electronically Signed By: Yogesh Gonzalez MD Electronically Signed Date/Time: 01/09/2025 9:32 PM EDT XR sacrum coccyx 2+ views Final Result Mild lumbar spondylosis without evidence of an acute fracture or spondylolisthesis. PELVIS, SACRUM AND COCCYX: Indication: Trauma, pain Views: AP pelvis, Lateral and two angled AP views Comparison: None. Findings: There is no evidence for fracture or bone lesion. The sacroiliac joints are unremarkable. Mild bilateral hip osteoarthrosis. IMPRESSION: No fracture or dislocation. Report Dictated on Electronically Signed By: Yogesh Gonzalez MD Electronically Signed Date/Time: 01/09/2025 9:32 PM EDT ED BEDSIDE ULTRASOUND: Performed by ED Physician - none LABS: Labs Reviewed - No data to display All other labs were within normal range or not returned as of this dictation. EMERGENCY DEPARTMENT COURSE and DIFFERENTIAL DIAGNOSIS/MDM: Vitals: Vitals: 01/09/25 1853 01/09/25 1854 BP: 121/70 Pulse: 87 Resp: 20 Temp: 37.2 C (98.9 F) TempSrc: Temporal SpO2: 97% Weight: 120 kg (264 lb) Height: 1.651 m (5' 5) Diagnoses as of 01/09/250 Fall, initial encounter Acute midline low back pain without sciatica Contusion of sacrum, initial encounter The patient presented with chief complaint of with chief complaint of low back pain, sacral pain pain across the lower pelvis posteriorly. She was fall couple days ago landed on her buttocks she continues to have pain pain when she gets up and trouble ambulating. She was seen yesterday because she was not feeling like herself she has had some frequent falls she has a history of nonalcoholic cirrhosis her workup and her CAT scan was essentially unremarkable but she still having back pain so she returns for that tonight.. The differential diagnosis associated with this patient's presentation includes lumbar compression fracture, sacral fracture, pelvic fracture. Our workup consisted of ordering/reviewing: X-ray lumbar spine, sacrum, pelvis. To aid in management, I performed an independent interpretation of Xray(s) x-rays of the pelvis sacrum and lumbar spine per my interpretation showed no fracture. The patient will be Discharged. Patient is in agreement with this plan. Medications oxyCODONE (Roxicodone) immediate release tablet 5 mg (5 mg Oral Given 01/09/252111) REVAL: CRITICAL CARE TIME None CONSULTS: None PROCEDURES: Unless otherwise noted below, none Procedures Patients symptoms are consistent with sepsis, severe sepsis, or septic shock (If yes use .sepsiscoremeasure): no FINAL IMPRESSION 1. Fall, initial encounter 2. Acute midline low back pain without sciatica 3. Contusion of sacrum, initial encounter DISPOSITION Discharge 01/09/2025 10:17:20 PM PATIENT [facility]FERRED TO: [facility] [address] [facility] [address] Schedule an appointment as soon as possible for a visit DISCHARGE MEDICATIONS: New Prescriptions OXYCODONE (ROXICODONE) 5 MG IMMEDIATE RELEASE TABLET Take 1 tablet (5 mg) by mouth every 6 hours as needed for severe pain (7-10) for up to 2 days. (Comment: Please note this report has been produced using speech recognition software and may contain errors related to that system including errors in grammar, punctuation, and spelling, as well as words and phrases that may be inappropriate. If there are any questions or concerns please feel free to contact the dictating provider for clarification.) Clayton Doe APRN - ACCOUNT EXECUTIVE [employer] (electronically signed) Emergency Medicine Provider [1] Past Medical History: Diagnosis Date Anxiety Arthritis Chest pain Depression Diabetic nephropathy (CMS/HCC) (HCC) Dorsalgia 04/22/2023 Elevated transaminase level Fatigue GERD (gastroesophageal reflux disease) Headache(784.0) Hemorrhoids Hyperlipidemia Hypertension Hyponatremia 2018 Low back pain Neuropathic pain Obesity DONNA (obstructive sleep apnea) Pain in limb 11/10/2023 Rectal bleed Right leg weakness Trochanteric bursitis of left hip Bilateral Type II or unspecified type diabetes mellitus without mention of complication, not stated as uncontrolled (HCC) Uncontrolled type 2 diabetes mellitus with complication 02/19/2015 [2] Past Surgical History: Procedure Laterality Date CARDIAC CATHETERIZATION 06/03/2018 CARPAL TUNNEL RELEASE CHOLECYSTECTOMY COLONOSCOPY 2011 ENDOMETRIAL ABLATION HERNIA REPAIR TONSILLECTOMY AND ADENOIDECTOMY (HISTORICAL) [3] Family History Problem Relation Name Age of Onset Diabetes Mother Heart disease Father Cancer Father prostate High Blood Pressure Father Other ([address]) Sister TBI Depression Mother Substance Abuse Brother Heart disease Mother Other ([id number]) Mother Depression Brother [4] Social History Socioeconomic History Marital status: Tobacco Use Smoking status: Former Current packs/day: 0.00 Types: Cigarettes Quit date: 09/01/2013 Years since quittin.3 Smokeless tobacco: Never Vaping Use Vaping status: Never Used Substance and Sexual Activity Alcohol use: Not Currently Alcohol/week: 0.0 standard drinks of alcohol Drug use: No Social Drivers of Health Financial Resource Strain: High Risk (01/06/2025) Overall Financial Resource Strain (CARDIA) Difficulty of Paying Living Expenses: Very hard Food Insecurity: Food Insecurity Present (01/06/2025) Hunger Vital Sign Worried About Running Out of Food in the Last Year: Often true Ran Out of Food in the Last Year: Sometimes true Transportation Needs: Unmet Transportation Needs (01/06/2025) PRAPARE - Transportation Lack of Transportation (Medical): Yes Lack of Transportation (Non-Medical): Yes Physical Activity: Inactive (01/06/2025) Exercise Vital Sign Days of Exercise per Week: 0 days Minutes of Exercise per Session: 0 min Stress: Stress Concern Present (01/06/2025) [employer] [place] [employer] - Occupational Stress Questionnaire Feeling of Stress : Very much Social Connections: Moderately Integrated (01/06/2025) Social Connection and Isolation Panel [NHANES] Frequency of Communication with Friends and Family: Once a week Frequency of Social Gatherings with Friends and Family: Once a week Attends Yazdanism Services: More than 4 times per year Active Member of Clubs or Organizations: No Attends Club or Organization Meetings: 1 to 4 times per year Marital Status: Intimate Partner Violence: Not At Risk (01/06/2025) Humiliation, Afraid, Rape, and Kick questionnaire Fear of Current or Ex-Partner: No Emotionally Abused: No Physically Abused: No Sexually Abused: No Housing Stability: High Risk (01/06/2025) Housing Stability Vital Sign Unable to Pay for Housing in the Last Year: Yes Number of Times Moved in the Last Year: 0 Homeless in the Last Year: Patient declined NICOLE Austin CNP 01/09/252219 documented in this encounter [facility] 01-09-2025 Physician Emergency department Note EMERGENCY DEPARTMENT ENCOUNTER Pt Name: Raiza Carey Birthdate 1965 Date of evaluation: 01/09/2025 ED Provider: NICOLE Austin CNP I have evaluated this patient on my own, per my scope of practice with an attending physician available for consultation. CHIEF COMPLAINT Chief Complaint Patient presents with Back Pain Hip Pain Patient reports she fell yesterday. States she was seen last night. HISTORY OF PRESENT ILLNESS (Location/Symptom, Timing/Onset, Context/Setting, Quality, Duration, Modifying Factors, Severity) Note limiting factors. I wore appropriate PPE for the entirety of this encounter. HPI Raiza Carey is a 59 y.o. who presents to the emergency department with chief complaint of low back pain, sacral pain pain across the lower pelvis posteriorly. She was fall couple days ago landed on her buttocks she continues to have pain pain when she gets up and trouble ambulating. She was seen yesterday because she was not feeling like herself she has had some frequent falls she has a history of nonalcoholic cirrhosis her workup and her CAT scan was essentially unremarkable but she still having back pain so she returns for that tonight. Nursing Notes were reviewed. Limitations to history: [...] discharge and vaginal pain. Musculoskeletal: Positive for arthralgias, back pain and myalgias. Skin: Negative for rash and wound. Neurological: Negative for syncope, weakness, light-headedness and headaches. Hematological: Negative for adenopathy. Psychiatric/Behavioral: Negative for agitation and confusion. All other systems reviewed and are negative. Pertinent positives and negatives as per HPI. PAST MEDICAL HISTORY Medical History[1] SURGICAL HISTORY Surgical History[2] CURRENT MEDICATIONS Previous Medications ALBUTEROL 108 (90 BASE) MCG/ACT INHALER Inhale 1 puff every 6 hours as needed for wheezing or shortness of breath. BUPROPION XL (WELLBUTRIN XL) 300 MG 24 HR TABLET Take 1 tablet (300 mg) by mouth every morning. Do not crush, chew, or split. BUSPIRONE (BUSPAR) 10 MG TABLET Take 1 tablet (10 mg) by mouth 2 times daily. CONSTULOSE 10 GM/15ML SOLUTION TAKE 15 ML BY MOUTH ONCE DAILY CONTINUOUS GLUCOSE DYNAMOMETER TESTER ENGINE (FREESTYLE ADIEL 3 READER) DEVICE Check blood sugar 2-4 times daily. CONTINUOUS GLUCOSE SENSOR (FREESTYLE ADIEL 3 SENSOR) MISC every 14 (fourteen) days. CYANOCOBALAMIN (B-12 COMPLIANCE INJECTION) 1000 MCG/ML KIT Inject 1 ml (1000mcg) subcutaneous weekly x 4 then monthly ELIQUIS 2.5 MG TABLET Take 2.5 mg by mouth 2 times daily. GLIMEPIRIDE (AMARYL) 4 MG TABLET Take 1 tablet (4 mg) by mouth daily (with breakfast). LABETALOL (NORMODYNE) 100 MG TABLET Take 1 tablet (100 mg) by mouth 2 times daily. LANTUS SOLOSTAR 100 UNIT/ML PEN INJECT 14 UNITS SUBCUTANEOUSLY NIGHTLY METFORMIN (GLUCOPHAGE) 1000 MG TABLET Take 1 tablet (1,000 mg) by mouth 2 times daily (with meals). NYSTATIN (MYCOSTATIN) 500017 UNIT/GM POWDER Apply topically 2 times daily. ONDANSETRON (ZOFRAN) 4 MG TABLET Take 4 mg by mouth every 6 hours as needed for nausea or vomiting. PANTOPRAZOLE (PROTONIX) 40 MG EC TABLET Take 40 mg by mouth every morning (before breakfast). PEG 6927-JFG-MFXMR-NACL-NASULF (PEG-3350/ELECTROLYTES) 236 G RECONSTITUTED SOLUTION DRINK 240 ML BY MOUTH EVERY 10 MINUTES, DIRECTED FOR SPLIT DOSE BOWEL PREP ROSUVASTATIN (CRESTOR) 5 MG TABLET Take 1 tablet (5 mg) by mouth daily. SPIRONOLACTONE (ALDACTONE) 12.5 MG SPLIT TABLET Take 12.5 mg by mouth daily. TIRZEPATIDE (MOUNJARO) 5 MG/0.5ML SOLUTION AUTO-INJECTOR Inject 5 mg under the skin 1 (one) time per week. TRAMADOL (ULTRAM) 50 MG TABLET TAKE 1 TABLET BY MOUTH TWICE DAILY NEEDED FOR 7 DAYS UNIFINE PENTIPS 31G X 8 MM MISC Use as directed with insulin pen ALLERGIES Cat dander, Lisinopril, Pollen extract, and Xifaxan [rifaximin] FAMILY HISTORY Family History[3] SOCIAL HISTORY Social History[4] SCREENINGS PHYSICAL EXAM ED Triage Vitals [01/09/25 1854] Temp Heart Rate Resp BP 37.2 C (98.9 F) 87 20 121/70 SpO2 Temp Source Heart Rate Source Patient [...] breath sounds. No stridor. No wheezing or rhonchi. Musculoskeletal: Cervical back: Normal range of motion and neck supple. No rigidity or tenderness. Comments: There is tenderness to the lumbar spine in the sacral region. Straight leg raise is negative on the left and right. There is no weakness noted with adduction of either thigh. There is no weakness noted hip flexion, knee extension, knee flexion. There is no weakness noted to dorsiflexion of the foot, dorsiflexion of the great toe or plantarflexion of the foot. Patellar reflexes are 2+ bilaterally. DP pulses are 2+. There are no sensory deficits to the lower extremities, no saddle anesthesia. Sensation is intact to the groin, perianal sensation is intact. Lymphadenopathy: Cervical: No cervical adenopathy. Skin: General: Skin is warm and dry. Capillary Refill: Capillary refill takes less than 2 seconds. Coloration: Skin is not jaundiced or pale. Findings: No bruising or erythema. Neurological: General: No focal deficit present. Mental Status: She is alert and oriented to person, place, and time. Mental status is at baseline. Cranial Nerves: No cranial nerve deficit. Sensory: No sensory deficit. Motor: No weakness. Coordination: Coordination normal. Psychiatric: Mood and Affect: Mood normal. Thought Content: Thought content normal. DIAGNOSTIC RESULTS Procedures/EKG: EKG was reviewed by myself. Physician EKG interpretation can be found in [facility] RADIOLOGY (Per Emergency Physician): Interpretation per the Radiologist below, if available at the time of this note: XR lumbar spine 2 or 3 views Final Result Mild lumbar spondylosis without evidence of an acute fracture or spondylolisthesis. PELVIS, SACRUM AND COCCYX: Indication: Trauma, pain Views: AP pelvis, Lateral and two angled AP views Comparison: None. Findings: There is no evidence for fracture or bone lesion. The sacroiliac joints are unremarkable. Mild bilateral hip osteoarthrosis. IMPRESSION: No fracture or dislocation. Report Dictated on Electronically Signed By: Yogesh Gonzalez MD Electronically Signed Date/Time: 01/09/2025 9:32 PM EDT XR pelvis 1 or 2 views Final Result Mild lumbar spondylosis without evidence of an acute fracture or spondylolisthesis. PELVIS, SACRUM AND COCCYX: Indication: Trauma, pain Views: AP pelvis, Lateral and two angled AP views Comparison: None. Findings: There is no evidence for fracture or bone lesion. The sacroiliac joints are unremarkable. Mild bilateral hip osteoarthrosis. IMPRESSION: No fracture or dislocation. Report Dictated on Electronically Signed By: Yogesh Gonzalez MD Electronically Signed Date/Time: 01/09/2025 9:32 PM EDT XR sacrum coccyx 2+ views Final Result Mild lumbar spondylosis without evidence of an acute fracture or spondylolisthesis. PELVIS, SACRUM AND COCCYX: Indication: Trauma, pain Views: AP pelvis, Lateral and two angled AP views Comparison: None. Findings: There is no evidence for fracture or bone lesion. The sacroiliac joints are unremarkable. Mild bilateral hip osteoarthrosis. IMPRESSION: No fracture or dislocation. Report Dictated on Electronically Signed By: Yogesh Gonzalez MD Electronically Signed Date/Time: 01/09/2025 9:32 PM EDT ED BEDSIDE ULTRASOUND: Performed by ED Physician - none LABS: Labs Reviewed - No data to display All other labs were within normal range or not returned as of this dictation. EMERGENCY DEPARTMENT COURSE and DIFFERENTIAL DIAGNOSIS/MDM: Vitals: Vitals: 01/09/25 1853 01/09/25 1854 BP: 121/70 Pulse: 87 Resp: 20 Temp: 37.2 C (98.9 F) TempSrc: Temporal SpO2: 97% Weight: 120 kg (264 lb) Height: 1.651 m (5' 5) Diagnoses as of 01/09/250 Fall, initial encounter Acute midline low back pain without sciatica Contusion of sacrum, initial encounter The patient presented with chief complaint of with chief complaint of low back pain, sacral pain pain across the lower pelvis posteriorly. She was fall couple days ago landed on her buttocks she continues to have pain pain when she gets up and trouble ambulating. She was seen yesterday because she was not feeling like herself she has had some frequent falls she has a history of nonalcoholic cirrhosis her workup and her CAT scan was essentially unremarkable but she still having back pain so she returns for that tonight.. The differential diagnosis associated with this patient's presentation includes lumbar compression fracture, sacral fracture, pelvic fracture. Our workup consisted of ordering/reviewing: X-ray lumbar spine, sacrum, pelvis. To aid in management, I performed an independent interpretation of Xray(s) x-rays of the pelvis sacrum and lumbar spine per my interpretation showed no fracture. The patient will be Discharged. Patient is in agreement with this plan. Medications oxyCODONE (Roxicodone) immediate release tablet 5 mg (5 mg Oral Given 01/09/252111) REVAL: CRITICAL CARE TIME None CONSULTS: None PROCEDURES: Unless otherwise noted below, none Procedures Patients symptoms are consistent with sepsis, severe sepsis, or septic shock (If yes use .sepsiscoremeasure): no FINAL IMPRESSION 1. Fall, initial encounter 2. Acute midline low back pain without sciatica 3. Contusion of sacrum, initial encounter DISPOSITION Discharge 01/09/2025 10:17:20 PM PATIENT REFERRED TO: Gio Ricketts MD [address] [place] [address], [address] [place] [id number] Schedule an appointment as soon as possible for a visit DISCHARGE MEDICATIONS: New Prescriptions OXYCODONE (ROXICODONE) 5 MG IMMEDIATE RELEASE TABLET Take 1 tablet (5 mg) by mouth every 6 hours as needed for severe pain (7-10) for up to 2 days. (Comment: Please note this report has been produced using speech recognition software and may contain errors related to that system including errors in grammar, punctuation, and spelling, as well as words and phrases that may be inappropriate. If there are any questions or concerns please feel free to contact the dictating provider for clarification.) Clayton Doe APRN - ACCOUNT EXECUTIVE [employer] (electronically signed) Emergency Medicine Provider [1] Past Medical History: Diagnosis Date Anxiety Arthritis Chest pain Depression Diabetic nephropathy (CMS/HCC) (HCC) Dorsalgia 04/22/2023 Elevated transaminase level Fatigue GERD (gastroesophageal reflux disease) Headache(784.0) Hemorrhoids Hyperlipidemia Hypertension Hyponatremia 2018 Low back pain Neuropathic pain Obesity DONNA (obstructive sleep apnea) Pain in limb 11/10/2023 Rectal bleed Right leg weakness Trochanteric bursitis of left hip Bilateral Type II or unspecified type diabetes mellitus without mention of complication, not stated as uncontrolled (HCC) Uncontrolled type 2 diabetes mellitus with complication 02/19/2015 [2] Past Surgical History: Procedure Laterality Date CARDIAC CATHETERIZATION 06/03/2018 CARPAL TUNNEL RELEASE CHOLECYSTECTOMY COLONOSCOPY 2011 ENDOMETRIAL ABLATION HERNIA REPAIR TONSILLECTOMY AND ADENOIDECTOMY (HISTORICAL) [3] Family History Problem Relation Name Age of Onset Diabetes Mother Heart disease Father Cancer Father prostate High Blood Pressure Father Other ([id number]) Sister TBI Depression Mother Substance Abuse Brother Heart disease Mother Other ([id number]) Mother Depression Brother [4] Social History Socioeconomic History Marital status: Tobacco Use Smoking status: Former Current packs/day: 0.00 Types: Cigarettes Quit date: 09/01/2013 Years since quittin.3 Smokeless tobacco: Never Vaping Use Vaping status: Never Used Substance and Sexual Activity Alcohol use: Not Currently Alcohol/week: 0.0 standard drinks of alcohol Drug use: No Social Drivers of Health Financial Resource Strain: High Risk (01/06/2025) Overall Financial Resource Strain (CARDIA) Difficulty of Paying Living Expenses: Very hard Food Insecurity: Food Insecurity Present (01/06/2025) Hunger Vital Sign Worried About Running Out of Food in the Last Year: Often true Ran Out of Food in the Last Year: Sometimes true Transportation Needs: Unmet Transportation Needs (01/06/2025) PRAPARE - Transportation Lack of Transportation (Medical): Yes Lack of Transportation (Non-Medical): Yes Physical Activity: Inactive (01/06/2025) Exercise Vital Sign Days of Exercise per Week: 0 days Minutes of Exercise per Session: 0 min Stress: Stress Concern Present (01/06/2025) [employer] [place] [employer] - Occupational Stress Questionnaire Feeling of Stress : Very much Social Connections: Moderately Integrated (01/06/2025) Social Connection and Isolation Panel [NHANES] Frequency of Communication with Friends and Family: Once a week Frequency of Social Gatherings with Friends and Family: Once a week Attends Yazdanism Services: More than 4 times per year Active Member of Clubs or Organizations: No Attends Club or Organization Meetings: 1 to 4 times per year Marital Status: Intimate Partner Violence: Not At Risk (01/06/2025) Humiliation, Afraid, Rape, and Kick questionnaire Fear of Current or Ex-Partner: No Emotionally Abused: No Physically Abused: No Sexually Abused: No Housing Stability: High Risk (01/06/2025) Housing Stability Vital Sign Unable to Pay for Housing in the Last Year: Yes Number of Times Moved in the Last Year: 0 Homeless in the Last Year: Patient declined NICOLE Austin CNP 01/09/252219 [facility] 01-09-2025 Hospital Discharge instructions Ray Espitia MD - 01/09/2025 2:34 AM EDT Laboratory work demonstrates dehydration. Please drink plenty of fluids. Liver studies are essentially within normal limits. Follow-up with your physician later this week. The following attachments cannot be sent through Care Everywhere.Dehydration Discharge Instructions, Adult (Nicaraguan)documented in this encounter [facility] 01-08-2025 Emergency department Note EMERGENCY DEPARTMENT ENCOUNTER Pt Name: Melanie Carey Birthdate 1965 Date of evaluation: 01/08/2025 ED Provider: Ray Espitia MD CHIEF COMPLAINT Chief Complaint Patient presents with Fall multiple Altered Mental Status Patient not feeling like herself the last 3 days Gait Problem 3 days Nausea HISTORY OF PRESENT ILLNESS I wore appropriate PPE for the entirety of this encounter. HPI Melanie Carey is a 59 y.o. female who presents to the emergency department stating that she feels out of sorts. This has been occurring for the last 2 days. There has been no specific weakness. She is not currently having any chest pain or shortness of breath. She has a history of liver cirrhosis. She states that she has been referred to [facility] for this. She does not have an appointment yet. She states that it is not related to alcohol use. She also has a history of Crohn's disease. She is on labetalol. She states that she fell today. She did not strike her head. She denies neck pain. She states that she had a cardiac catheterization in 2018 that showed no blockage. Nursing Notes were reviewed. Limitations to history: None Outside historians: None REVIEW OF SYSTEMS Review of Systems Constitutional: Positive for activity change. Negative for chills and fever. HENT: Negative for ear pain and sore throat. Eyes: Negative for pain and visual disturbance. Respiratory: Negative for cough and shortness of breath. Cardiovascular: Negative for chest pain and palpitations. Gastrointestinal: Negative for abdominal pain and vomiting. Genitourinary: Negative for dysuria and hematuria. Musculoskeletal: Negative for arthralgias and back pain. Skin: Negative for color change and rash. Neurological: Positive for weakness. Negative for seizures and syncope. Psychiatric/Behavioral: Positive for confusion. All other systems reviewed and are negative. PAST MEDICAL HISTORY Medical History[1] SURGICAL HISTORY Surgical History[2] CURRENT MEDICATIONS Previous Medications ALBUTEROL 108 (90 BASE) MCG/ACT INHALER Inhale 1 puff every 6 hours as needed for wheezing or shortness of breath. BUPROPION XL (WELLBUTRIN XL) 300 MG 24 HR TABLET Take 1 tablet (300 mg) by mouth every morning. Do not crush, chew, or split. BUSPIRONE (BUSPAR) 10 MG TABLET Take 1 tablet (10 mg) by mouth 2 times daily. CONSTULOSE 10 GM/15ML SOLUTION TAKE 15 ML BY MOUTH ONCE DAILY CONTINUOUS GLUCOSE DYNAMOMETER TESTER ENGINE (FREESTYLE ADIEL 3 READER) DEVICE Check blood sugar 2-4 times daily. CONTINUOUS GLUCOSE SENSOR (FREESTYLE ADIEL 3 SENSOR) [facility] every 14 (fourteen) days. CYANOCOBALAMIN (B-12 COMPLIANCE INJECTION) 1000 MCG/ML KIT Inject 1 ml (1000mcg) subcutaneous weekly x 4 then monthly ELIQUIS 2.5 MG TABLET Take 2.5 mg by mouth 2 times daily. GLIMEPIRIDE (AMARYL) 4 MG TABLET Take 1 tablet (4 mg) by mouth daily (with breakfast). LABETALOL (NORMODYNE) 100 MG TABLET Take 1 tablet (100 mg) by mouth 2 times daily. LANTUS SOLOSTAR 100 UNIT/ML PEN INJECT 14 UNITS SUBCUTANEOUSLY NIGHTLY METFORMIN (GLUCOPHAGE) 1000 MG TABLET Take 1 tablet (1,000 mg) by mouth 2 times daily (with meals). NYSTATIN (MYCOSTATIN) 724478 UNIT/GM POWDER Apply topically 2 times daily. ONDANSETRON (ZOFRAN) 4 MG TABLET Take 4 mg by mouth every 6 hours as needed for nausea or vomiting. PANTOPRAZOLE (PROTONIX) 40 MG EC TABLET Take 40 mg by mouth every morning (before breakfast). PEG 7921-MKA-RXZEU-NACL-NASULF (PEG-3350/ELECTROLYTES) 236 G RECONSTITUTED SOLUTION DRINK 240 ML BY MOUTH EVERY 10 MINUTES, DIRECTED FOR SPLIT DOSE BOWEL PREP ROSUVASTATIN (CRESTOR) 5 MG TABLET Take 1 tablet (5 mg) by mouth daily. SPIRONOLACTONE (ALDACTONE) 12.5 MG SPLIT TABLET Take 12.5 mg by mouth daily. TIRZEPATIDE (MOUNJARO) 5 MG/0.5ML SOLUTION AUTO-INJECTOR Inject 5 mg under the skin 1 (one) time per week. TRAMADOL (ULTRAM) 50 MG TABLET TAKE 1 TABLET BY MOUTH TWICE DAILY NEEDED FOR 7 DAYS UNIFINE PENTIPS 31G X 8 MM MISC Use as directed with insulin pen ALLERGIES Cat dander, Lisinopril, Pollen extract, and Xifaxan [rifaximin] FAMILY HISTORY Family History[3] SOCIAL HISTORY Social History[4] SCREENINGS PHYSICAL EXAM ED Triage Vitals [01/08/25 2343] Temp Heart Rate Resp BP (!) 35.9 C (96.7 F) 102 20 119/84 SpO2 Temp Source Heart Rate Source Patient Position 96 % Temporal -- -- BP Location FiO2 (%) -- -- Physical Exam Vitals and nursing note reviewed. Constitutional: General: She is not in acute distress. Appearance: She is well-developed. She is obese. Comments: On examination the patient is a older middle-aged female found sitting in a chair. She is alert and oriented. She is afebrile. Her vital signs are within normal limits. She is in no acute distress. HENT: Head: Normocephalic and atraumatic. Eyes: Conjunctiva/sclera: Conjunctivae normal. Cardiovascular: Rate and Rhythm: Normal rate and regular rhythm. Heart sounds: No murmur heard. Pulmonary: Effort: Pulmonary effort is normal. No respiratory distress. Breath sounds: Normal breath sounds. Abdominal: Palpations: Abdomen is soft. Tenderness: There is no abdominal tenderness. Musculoskeletal: General: No swelling. Cervical back: Neck supple. Skin: General: Skin is warm and dry. Capillary Refill: Capillary refill takes less than 2 seconds. Neurological: Mental Status: She is alert. Psychiatric: Mood and Affect: Mood normal. DIAGNOSTIC RESULTS RADIOLOGY (Per Emergency Physician): Interpretation per the Radiologist below, if available at the time of this note: CT head wo IV contrast Final Result No CT evidence of an acute intracranial abnormality. Report Dictated on Electronically Signed By: Ray Moe MD Electronically Signed Date/Time: 01/09/2025 1:01 AM EDT EKG Interpretation: An EKG is obtained and interpreted by myself. It demonstrates a normal sinus rhythm with a rate of 97. QRS axis is -97 degrees. A right bundle branch block and left anterior fascicular block pattern is present. No acute ST segment findings are found. There is no evidence of an ST elevation [place]. LABS: Labs Reviewed CBC WITH AUTO DIFFERENTIAL - Abnormal Result Value Auto WBC 6.3 RBC 4.56 Hemoglobin 12.4 Hematocrit 38.2 MCV 83.8 MCH 27.2 MCHC 32.5 RDW 15.6 (*) Platelets 61 (*) MPV 11.2 IPF 4 COMPREHENSIVE METABOLIC PANEL - Abnormal SODIUM 138 POTASSIUM 4.3 CHLORIDE 108 (*) CARBON DIOXIDE 18 (*) ANION GAP 12 UREA NITROGEN 24 (*) CREATININE 1.75 (*) GLUCOSE 162 (*) CALCIUM 9.1 AST (SGOT) 75 (*) ALT 23 ALKALINE PHOSPHATASE 77 ALBUMIN 3.5 BILIRUBIN, TOTAL 2.2 (*) TOTAL PROTEIN 7.2 eGFR 33.6 (*) MANUAL DIFFERENTIAL (CELLAVISION) - Abnormal RBC Morphology abnormal Poikilocytes Slight (*) Polychromasia Slight (*) Ovalocytes Slight (*) Neutrophils % 74 Bands % 6 (*) Lymphocytes % 13 (*) Monocytes % 7 Absolute Neutrophil Count 5.0 Bands Absolute 0.4 (*) Lymphocytes Absolute 0.8 (*) Monocytes Absolute 0.4 Neutrophils Manual 75 Lymphocytes Manual 13 Monocytes Manual 7 Eosinophils Manual Basophils Manual Bands Manual 6 Metamyelocytes Manual Myelocytes Manual Promyelocytes Manual Blasts Manual Atypical Lymphocytes Manual Unclassified Cells, Manual AMMONIA - Normal AMMONIA 43 LACTIC ACID WITH REFLEX - Normal LACTIC ACID 1.2 COMPLETE URINALYSIS WITH REFLEX TO CULTURE All other labs were within normal range or not returned as of this dictation. EMERGENCY DEPARTMENT COURSE and DIFFERENTIAL DIAGNOSIS/MDM: Vitals: Vitals: 01/08/25 2343 BP: 119/84 Pulse: 102 Resp: 20 Temp: (!) 35.9 C (96.7 F) TempSrc: Temporal SpO2: 96% Medications Administered in the ED: Medications sodium chloride 0.9 % bolus 1,000 mL (1,000 mL IntraVENous New Bag 01/09/25 0221) Maine Espitia MD am the child welfare consultant of record. PROCEDURES: Unless otherwise noted below, none Procedures Differential Diagnosis Considerations: Differential diagnosis includes metabolic abnormality, elevated serum ammonia related to her cirrhosis, dehydration, anemia. ED testing and evaluation will be obtained to help differentiate these diagnostic possibilities and determine the most likely cause. Sources of History: I evaluated other historical sources including previous outpatient records and admission records. ED Course: In the emergency department I initially evaluated the patient with a history and physical examination in order to determine diagnostic testing and therapeutic care. On the basis of this history and physical examination laboratory work will be obtained. Because of the patient describing confusion and feeling out of sorts a CAT scan of the head will be obtained. Reassessment: Laboratory work is consistent with dehydration by virtue of her renal panel. Patient is given intravenous fluids. She is subsequently discharged with instructions to follow-up with her physician later this week. Consideration of Admission/Observation: I considered admission for this patient, however, at this time the patient appears to be stable. I do not believe that the patient would benefit from admission at this time. I believe the patient can follow-up with the primary care physician. The patient is advised to return to the emergency department if symptoms change or worsen where admission may need to be considered at a another time. Independent Interpretation of Tests: I independently evaluated the results of the patient's diagnostic testing in the context of the patient's presentation. Diagnostic Tests Considered but not Performed: No other diagnostic tests are considered. Prescription Medications Considered but not Prescribed: None Chronic Conditions Affecting Care: None FINAL IMPRESSION 1. Dehydration DISPOSITION Discharge 01/09/2025 02:34:20 AM PATIENT REFERRED TO: Gio Ricketts MD [facility] [facility] [address] In 2 days DISCHARGE MEDICATIONS: New Prescriptions No medications on file (Comment: Please note this report has been produced using speech recognition software and may contain errors related to that system including errors in grammar, punctuation, and spelling, as well as words and phrases that may be inappropriate. If there are any questions or concerns please feel free to contact the dictating provider for clarification.) Ray Espitia MD (electronically signed) Emergency Medicine Provider [1] Past Medical History: Diagnosis Date Anxiety Arthritis Chest pain Depression Diabetic nephropathy (CMS/HCC) (HCC) Dorsalgia 04/22/2023 Elevated transaminase level Fatigue GERD (gastroesophageal reflux disease) Headache(784.0) Hemorrhoids Hyperlipidemia Hypertension Hyponatremia 2018 Low back pain Neuropathic pain Obesity DONNA (obstructive sleep apnea) Pain in limb 11/10/2023 Rectal bleed Right leg weakness Trochanteric bursitis of left hip Bilateral Type II or unspecified type diabetes mellitus without mention of complication, not stated as uncontrolled (HCC) Uncontrolled type 2 diabetes mellitus with complication 02/19/2015 [2] Past Surgical History: Procedure Laterality Date CARDIAC CATHETERIZATION 06/03/2018 CARPAL TUNNEL RELEASE CHOLECYSTECTOMY COLONOSCOPY 2011 ENDOMETRIAL ABLATION HERNIA REPAIR TONSILLECTOMY AND ADENOIDECTOMY (HISTORICAL) [3] Family History Problem Relation Name Age of Onset Diabetes Mother Heart disease Father Cancer Father prostate High Blood Pressure Father Other ([id number]) Sister TBI Depression Mother Substance Abuse Brother Heart disease Mother Other ([id number]) Mother Depression Brother [4] Social History Socioeconomic History Marital status: Tobacco Use Smoking status: Former Current packs/day: 0.00 Types: Cigarettes Quit date: 09/01/2013 Years since quittin.3 Smokeless tobacco: Never Vaping Use Vaping status: Never Used Substance and Sexual Activity Alcohol use: Not Currently Alcohol/week: 0.0 standard drinks of alcohol Drug use: No Social Drivers of Health Financial Resource Strain: High Risk (01/06/2025) Overall Financial Resource Strain (CARDIA) Difficulty of Paying Living Expenses: Very hard Food Insecurity: Food Insecurity Present (01/06/2025) Hunger Vital Sign Worried About Running Out of Food in the Last Year: Often true Ran Out of Food in the Last Year: Sometimes true Transportation Needs: Unmet Transportation Needs (01/06/2025) PRAPARE - Transportation Lack of Transportation (Medical): Yes Lack of Transportation (Non-Medical): Yes Physical Activity: Inactive (01/06/2025) Exercise Vital Sign Days of Exercise per Week: 0 days Minutes of Exercise per Session: 0 min Stress: Stress Concern Present (01/06/2025) [employer] [place] [employer] - Occupational Stress Questionnaire Feeling of Stress : Very much Social Connections: Moderately Integrated (01/06/2025) Social Connection and Isolation Panel [NHANES] Frequency of Communication with Friends and Family: Once a week Frequency of Social Gatherings with Friends and Family: Once a week Attends Yazdanism Services: More than 4 times per year Active Member of Clubs or Organizations: No Attends Club or Organization Meetings: 1 to 4 times per year Marital Status: Intimate Partner Violence: Not At Risk (01/06/2025) Humiliation, Afraid, Rape, and Kick questionnaire Fear of Current or Ex-Partner: No Emotionally Abused: No Physically Abused: No Sexually Abused: No Housing Stability: High Risk (01/06/2025) Housing Stability Vital Sign Unable to Pay for Housing in the Last Year: Yes Number of Times Moved in the Last Year: 0 Homeless in the Last Year: Patient declined Ray Espitia MD 01/09/25 0236 documented in this encounter [facility] 01-08-2025 Physician Emergency department Note EMERGENCY DEPARTMENT ENCOUNTER Pt Name: Melanie Carey Birthdate 1965 Date of evaluation: 01/08/2025 ED Provider: Ray Espitia MD CHIEF COMPLAINT Chief Complaint Patient presents with Fall multiple Altered Mental Status Patient not feeling like herself the last 3 days Gait Problem 3 days Nausea HISTORY OF PRESENT ILLNESS I wore appropriate PPE for the entirety of this encounter. HPI Melanie Carey is a 59 y.o. female who presents to the emergency department stating that she feels out of sorts. This has been occurring for the last 2 days. There has been no specific weakness. She is not currently having any chest pain or shortness of breath. She has a history of liver cirrhosis. She states that she has been referred to [facility] for this. She does not have an appointment yet. She states that it is not related to alcohol use. She also has a history of Crohn's disease. She is on labetalol. She states that she fell today. She did not strike her head. She denies neck pain. She states that she had a cardiac catheterization in 2018 that showed no blockage. Nursing Notes were reviewed. Limitations to history: None Outside historians: None REVIEW OF SYSTEMS Review of Systems Constitutional: Positive for activity change. Negative for chills and fever. HENT: Negative for ear pain and sore throat. Eyes: Negative for pain and visual disturbance. Respiratory: Negative for cough and shortness of breath. Cardiovascular: Negative for chest pain and palpitations. Gastrointestinal: Negative for abdominal pain and vomiting. Genitourinary: Negative for dysuria and hematuria. Musculoskeletal: Negative for arthralgias and back pain. Skin: Negative for color change and rash. Neurological: Positive for weakness. Negative for seizures and syncope. Psychiatric/Behavioral: Positive for confusion. All other systems reviewed and are negative. PAST MEDICAL HISTORY Medical History[1] SURGICAL HISTORY Surgical History[2] CURRENT MEDICATIONS Previous Medications ALBUTEROL 108 (90 BASE) MCG/ACT INHALER Inhale 1 puff every 6 hours as needed for wheezing or shortness of breath. BUPROPION XL (WELLBUTRIN XL) 300 MG 24 HR TABLET Take 1 tablet (300 mg) by mouth every morning. Do not crush, chew, or split. BUSPIRONE (BUSPAR) 10 MG TABLET Take 1 tablet (10 mg) by mouth 2 times daily. CONSTULOSE 10 GM/15ML SOLUTION TAKE 15 ML BY MOUTH ONCE DAILY CONTINUOUS GLUCOSE DYNAMOMETER TESTER ENGINE (FREESTYLE ADIEL 3 READER) DEVICE Check blood sugar 2-4 times daily. CONTINUOUS GLUCOSE SENSOR (FREESTYLE ADIEL 3 SENSOR) MISC every 14 (fourteen) days. CYANOCOBALAMIN (B-12 COMPLIANCE INJECTION) 1000 MCG/ML KIT Inject 1 ml (1000mcg) subcutaneous weekly x 4 then monthly ELIQUIS 2.5 MG TABLET Take 2.5 mg by mouth 2 times daily. GLIMEPIRIDE (AMARYL) 4 MG TABLET Take 1 tablet (4 mg) by mouth daily (with breakfast). LABETALOL (NORMODYNE) 100 MG TABLET Take 1 tablet (100 mg) by mouth 2 times daily. LANTUS SOLOSTAR 100 UNIT/ML PEN INJECT 14 UNITS SUBCUTANEOUSLY NIGHTLY METFORMIN (GLUCOPHAGE) 1000 MG TABLET Take 1 tablet (1,000 mg) by mouth 2 times daily (with meals). NYSTATIN (MYCOSTATIN) 753361 UNIT/GM POWDER Apply topically 2 times daily. ONDANSETRON (ZOFRAN) 4 MG TABLET Take 4 mg by mouth every 6 hours as needed for nausea or vomiting. PANTOPRAZOLE (PROTONIX) 40 MG EC TABLET Take 40 mg by mouth every morning (before breakfast). PEG 3871-XAQ-BADCR-NACL-NASULF (PEG-3350/ELECTROLYTES) 236 G RECONSTITUTED SOLUTION DRINK 240 ML BY MOUTH EVERY 10 MINUTES, DIRECTED FOR SPLIT DOSE BOWEL PREP ROSUVASTATIN (CRESTOR) 5 MG TABLET Take 1 tablet (5 mg) by mouth daily. SPIRONOLACTONE (ALDACTONE) 12.5 MG SPLIT TABLET Take 12.5 mg by mouth daily. TIRZEPATIDE (MOUNJARO) 5 MG/0.5ML SOLUTION AUTO-INJECTOR Inject 5 mg under the skin 1 (one) time per week. TRAMADOL (ULTRAM) 50 MG TABLET TAKE 1 TABLET BY MOUTH TWICE DAILY NEEDED FOR 7 DAYS UNIFINE PENTIPS 31G X 8 MM MISC Use as directed with insulin pen ALLERGIES Cat dander, Lisinopril, Pollen extract, and Xifaxan [rifaximin] FAMILY HISTORY Family History[3] SOCIAL HISTORY Social History[4] SCREENINGS PHYSICAL EXAM ED Triage Vitals [01/08/25 2343] Temp Heart Rate Resp BP (!) 35.9 C (96.7 F) 102 20 119/84 SpO2 Temp Source Heart Rate Source Patient Position 96 % Temporal -- -- BP Location FiO2 (%) -- -- Physical Exam Vitals and nursing note reviewed. Constitutional: General: She is not in acute distress. Appearance: She is well-developed. She is obese. Comments: On examination the patient is a older middle-aged female found sitting in a chair. She is alert and oriented. She is afebrile. Her vital signs are within normal limits. She is in no acute distress. HENT: Head: Normocephalic and atraumatic. Eyes: Conjunctiva/sclera: Conjunctivae normal. Cardiovascular: Rate and Rhythm: Normal rate and regular rhythm. Heart sounds: No murmur heard. Pulmonary: Effort: Pulmonary effort is normal. No respiratory distress. Breath sounds: Normal breath sounds. Abdominal: Palpations: Abdomen is soft. Tenderness: There is no abdominal tenderness. Musculoskeletal: General: No swelling. Cervical back: Neck supple. Skin: General: Skin is warm and dry. Capillary Refill: Capillary refill takes less than 2 seconds. Neurological: Mental Status: She is alert. Psychiatric: Mood and Affect: Mood normal. DIAGNOSTIC RESULTS RADIOLOGY (Per Emergency Physician): Interpretation per the Radiologist below, if available at the time of this note: CT head wo IV contrast Final Result No CT evidence of an acute intracranial abnormality. Report Dictated on Electronically Signed By: Ray Moe MD Electronically Signed Date/Time: 01/09/2025 1:01 AM EDT EKG Interpretation: An EKG is obtained and interpreted by myself. It demonstrates a normal sinus rhythm with a rate of 97. QRS axis is -97 degrees. A right bundle branch block and left anterior fascicular block pattern is present. No acute ST segment findings are found. There is no evidence of an ST elevation [place]. LABS: Labs Reviewed CBC WITH AUTO DIFFERENTIAL - Abnormal Result Value Auto WBC 6.3 RBC 4.56 Hemoglobin 12.4 Hematocrit 38.2 MCV 83.8 MCH 27.2 MCHC 32.5 RDW 15.6 (*) Platelets 61 (*) MPV 11.2 IPF 4 COMPREHENSIVE METABOLIC PANEL - Abnormal SODIUM 138 POTASSIUM 4.3 CHLORIDE 108 (*) CARBON DIOXIDE 18 (*) ANION GAP 12 UREA NITROGEN 24 (*) CREATININE 1.75 (*) GLUCOSE 162 (*) CALCIUM 9.1 AST (SGOT) 75 (*) ALT 23 ALKALINE PHOSPHATASE 77 ALBUMIN 3.5 BILIRUBIN, TOTAL 2.2 (*) TOTAL PROTEIN 7.2 eGFR 33.6 (*) MANUAL DIFFERENTIAL (CELLAVISION) - Abnormal RBC Morphology abnormal Poikilocytes Slight (*) Polychromasia Slight (*) Ovalocytes Slight (*) Neutrophils % 74 Bands % 6 (*) Lymphocytes % 13 (*) Monocytes % 7 Absolute Neutrophil Count 5.0 Bands Absolute 0.4 (*) Lymphocytes Absolute 0.8 (*) Monocytes Absolute 0.4 Neutrophils Manual 75 Lymphocytes Manual 13 Monocytes Manual 7 Eosinophils Manual Basophils Manual Bands Manual 6 Metamyelocytes Manual Myelocytes Manual Promyelocytes Manual Blasts Manual Atypical Lymphocytes Manual Unclassified Cells, Manual AMMONIA - Normal AMMONIA 43 LACTIC ACID WITH REFLEX - Normal LACTIC ACID 1.2 COMPLETE URINALYSIS WITH REFLEX TO CULTURE All other labs were within normal range or not returned as of this dictation. EMERGENCY DEPARTMENT COURSE and DIFFERENTIAL DIAGNOSIS/MDM: Vitals: Vitals: 01/08/25 2343 BP: 119/84 Pulse: 102 Resp: 20 Temp: (!) 35.9 C (96.7 F) TempSrc: Temporal SpO2: 96% Medications Administered in the ED: Medications sodium chloride 0.9 % bolus 1,000 mL (1,000 mL IntraVENous New Bag 01/09/25 0221) Maine Espitia MD am the child welfare consultant of record. PROCEDURES: Unless otherwise noted below, none Procedures Differential Diagnosis Considerations: Differential diagnosis includes metabolic abnormality, elevated serum ammonia related to her cirrhosis, dehydration, anemia. ED testing and evaluation will be obtained to help differentiate these diagnostic possibilities and determine the most likely cause. Sources of History: I evaluated other historical sources including previous outpatient records and admission records. ED Course: In the emergency department I initially evaluated the patient with a history and physical examination in order to determine diagnostic testing and therapeutic care. On the basis of this history and physical examination laboratory work will be obtained. Because of the patient describing confusion and feeling out of sorts a CAT scan of the head will be obtained. Reassessment: Laboratory work is consistent with dehydration by virtue of her renal panel. Patient is given intravenous fluids. She is subsequently discharged with instructions to follow-up with her physician later this week. Consideration of Admission/Observation: I considered admission for this patient, however, at this time the patient appears to be stable. I do not believe that the patient would benefit from admission at this time. I believe the patient can follow-up with the primary care physician. The patient is advised to return to the emergency department if symptoms change or worsen where admission may need to be considered at a another time. Independent Interpretation of Tests: I independently evaluated the results of the patient's diagnostic testing in the context of the patient's presentation. Diagnostic Tests Considered but not Performed: No other diagnostic tests are considered. Prescription Medications Considered but not Prescribed: None Chronic Conditions Affecting Care: None FINAL IMPRESSION 1. Dehydration DISPOSITION Discharge 01/09/2025 02:34:20 AM PATIENT REFERRED TO: Gio Ricketts MD [address] [place], [address] [facility] [address] In 2 days DISCHARGE MEDICATIONS: New Prescriptions No medications on file (Comment: Please note this report has been produced using speech recognition software and may contain errors related to that system including errors in grammar, punctuation, and spelling, as well as words and phrases that may be inappropriate. If there are any questions or concerns please feel free to contact the dictating provider for clarification.) Ray Espitia MD (electronically signed) Emergency Medicine Provider [1] Past Medical History: Diagnosis Date Anxiety Arthritis Chest pain Depression Diabetic nephropathy (CMS/HCC) (HCC) Dorsalgia 04/22/2023 Elevated transaminase level Fatigue GERD (gastroesophageal reflux disease) Headache(784.0) Hemorrhoids Hyperlipidemia Hypertension Hyponatremia 2018 Low back pain Neuropathic pain Obesity DONNA (obstructive sleep apnea) Pain in limb 11/10/2023 Rectal bleed Right leg weakness Trochanteric bursitis of left hip Bilateral Type II or unspecified type diabetes mellitus without mention of complication, not stated as uncontrolled (HCC) Uncontrolled type 2 diabetes mellitus with complication 02/19/2015 [2] Past Surgical History: Procedure Laterality Date CARDIAC CATHETERIZATION 06/03/2018 CARPAL TUNNEL RELEASE CHOLECYSTECTOMY COLONOSCOPY 2011 ENDOMETRIAL ABLATION HERNIA REPAIR TONSILLECTOMY AND ADENOIDECTOMY (HISTORICAL) [3] Family History Problem Relation Name Age of Onset Diabetes Mother Heart disease Father Cancer Father prostate High Blood Pressure Father Other ([address]) Sister TBI Depression Mother Substance Abuse Brother Heart disease Mother Other (11281) Mother Depression Brother [4] Social History Socioeconomic History Marital status: Tobacco Use Smoking status: Former Current packs/day: 0.00 Types: Cigarettes Quit date: 09/01/2013 Years since quittin.3 Smokeless tobacco: Never Vaping Use Vaping status: Never Used Substance and Sexual Activity Alcohol use: Not Currently Alcohol/week: 0.0 standard drinks of alcohol Drug use: No Social Drivers of Health Financial Resource Strain: High Risk (01/06/2025) Overall Financial Resource Strain (CARDIA) Difficulty of Paying Living Expenses: Very hard Food Insecurity: Food Insecurity Present (01/06/2025) Hunger Vital Sign Worried About Running Out of Food in the Last Year: Often true Ran Out of Food in the Last Year: Sometimes true Transportation Needs: Unmet Transportation Needs (01/06/2025) PRAPARE - Transportation Lack of Transportation (Medical): Yes Lack of Transportation (Non-Medical): Yes Physical Activity: Inactive (01/06/2025) Exercise Vital Sign Days of Exercise per Week: 0 days Minutes of Exercise per Session: 0 min Stress: Stress Concern Present (01/06/2025) [place] [place] [employer] - Occupational Stress Questionnaire Feeling of Stress : Very much Social Connections: Moderately Integrated (01/06/2025) Social Connection and Isolation Panel [NHANES] Frequency of Communication with Friends and Family: Once a week Frequency of Social Gatherings with Friends and Family: Once a week Attends Yazdanism Services: More than 4 times per year Active Member of Clubs or Organizations: No Attends Club or Organization Meetings: 1 to 4 times per year Marital Status: Intimate Partner Violence: Not At Risk (01/06/2025) Humiliation, Afraid, Rape, and Kick questionnaire Fear of Current or Ex-Partner: No Emotionally Abused: No Physically Abused: No Sexually Abused: No Housing Stability: High Risk (01/06/2025) Housing Stability Vital Sign Unable to Pay for Housing in the Last Year: Yes Number of Times Moved in the Last Year: 0 Homeless in the Last Year: Patient declined Ray Espitia MD 01/09/25 0236 [facility] 01-01-2025 Telephone encounter Note Noted. Thank you. [facility] 01-01-2025 Miscellaneous Notes Noted. Thank you. Patient is calling because she has had 2 nosebleeds recently. She is prescribed Eliquis 2.5 mg twice daily by Dr. Castro, her GI physician in [place]. I advised her to call him for instructions. Reason for Disposition Health information question, no triage required and triager able to answer question Answer Assessment - Initial Assessment Questions 1. REASON FOR CALL: What is the main reason for your call? or How can I best help you? nosebleed 2. SYMPTOMS : Do you have any symptoms? Not now 3. OTHER QUESTIONS: Do you have any other questions? no Protocols used: Information Only Call - No [id number] documented in this encounter [facility] 12-31-2024 Telephone encounter Note Patient is calling because she has had 2 nosebleeds recently. She is prescribed Eliquis 2.5 mg twice daily by Dr. Castro, her GI physician in [place]. I advised her to call him for instructions. Reason for Disposition Health information question, no triage required and triager able to answer question Answer Assessment - Initial Assessment Questions 1. REASON FOR CALL: What is the main reason for your call? or How can I best help you? nosebleed 2. SYMPTOMS : Do you have any symptoms? Not now 3. OTHER QUESTIONS: Do you have any other questions? no Protocols used: Information Only Call - No [id number] [facility] 12-25-2024 Telephone encounter Note Reviewed chart. Refill appropriate. RX sent. [facility] 12-25-2024 Miscellaneous Notes Reviewed chart. Refill appropriate. RX sent. Prescription Request: Last medication check: 10/24/2024 Last physical exam: none Next scheduled appointment: 01/09/2025 Last date of refill on this medication: 10/24/2024 *Has never had a physical, changed appointment on 01/09 to a Physical.* documented in this encounter [facility] 12-25-2024 Telephone encounter Note Prescription Request: Last medication check: 10/24/2024 Last physical exam: none Next scheduled appointment: 01/09/2025 Last date of refill on this medication: 10/24/2024 *Has never had a physical, changed appointment on 01/09 to a Physical.* [facility] 12-23-2024 Hospital Discharge instructions Annalisa Jeter PA-C - 12/23/2024 1:36 PM EDT You were seen in the emergency department today for evaluation of low back pain after a fall. As we discussed, your imaging is reassuring, but does show evidence of bruising. I am going to send you with medications to help with your symptoms, would like you to follow-up closely with your primary care provider as an outpatient. As we discussed, please continue to very closely monitor your symptoms and follow-up with your primary care provider. Return to the emergency department should anything change or worsen. documented in this encounter [facility] 12-19-2024 Hospital Discharge instructions Amber Holley DO - 12/19/2024 7:30 PM EDT Return sooner for any signs of bleeding or infection such as redness, warmth or drainage, fevers or chills. The following attachments cannot be sent through Care Everywhere.Skin Tags (Acrochordon) ([place]uan)documented in this encounter [facility] 12-19-2024 Emergency department Note Pt presents to er from home for skin tag under her left breast.pt states there is skin missing, its preston, red and seeping. [facility] 12-19-2024 Emergency department Note Pt presents to er from home for skin tag under her left breast.pt states there is skin missing, its preston, red and seeping. Associated Order(s): Skin Biopsy, Bedside EMERGENCY DEPARTMENT ENCOUNTER Pt Name: Raiza Carey Birthdate 1965 Date of evaluation: 12/19/2024 ED Provider: Amber Holley DO CHIEF COMPLAINT Chief Complaint Patient presents with Wound Care Pt presents to er from home for skin tag under her left breast.pt states there is skin missing, its preston, red and seeping. HISTORY OF PRESENT ILLNESS (Location/Symptom, Timing/Onset, Context/Setting, Quality, Duration, Modifying Factors, Severity) Note limiting factors. I wore appropriate PPE for the entirety of this encounter. HPI 59-year-old female presents emergency room today with 1 day of irritated skin tag. Nursing Notes were reviewed. Limitations to history: None Outside historians: None REVIEW OF SYSTEMS Review of Systems Skin: Positive for wound. Pertinent positives and negatives as per HPI. PAST MEDICAL HISTORY Medical History[1] SURGICAL HISTORY Surgical History[2] CURRENT MEDICATIONS Discharge Medication List as of 12/19/2024 7:30 PM CONTINUE these medications which have NOT CHANGED Details albuterol 108 (90 Base) MCG/ACT inhaler Inhale 1 puff every 6 hours as needed for wheezing or shortness of breath., Starting Wed08/26/2023, Normal buPROPion XL (Wellbutrin XL) 300 MG 24 hr tablet Take 1 tablet (300 mg) by mouth every morning. Do not crush, chew, or split., Starting Wed10/31/2024, Normal busPIRone (Buspar) 10 MG tablet Take 1 tablet (10 mg) by mouth 2 times daily., Starting Wed10/31/2024, Normal Constulose 10 GM/15ML solution TAKE 15 ML BY MOUTH ONCE DAILY, Historical Med Continuous Glucose Furnace Door Tender (FreeStyle Adiel 3 [place]) device Check blood sugar 2-4 times daily., Normal Continuous Glucose Sensor (FreeStyle Adiel 3 Sensor) misc every 14 (fourteen) days., Starting 12/11/2024, Normal Cyanocobalamin (B-12 Compliance Injection) 1000 MCG/ML kit Inject 1 ml (1000mcg) subcutaneous weekly x 4 then monthly, Normal glimepiride (Amaryl) 4 MG tablet Take 1 tablet (4 mg) by mouth daily (with breakfast)., Starting Wed10/31/2024, Normal HYDROcodone-acetaminophen ([place]) 5-325 MG tablet TAKE 1 TABLET BY MOUTH EVERY 6 HOURS NEEDED FOR PAIN FOR 3 DAYS, Historical Med insulin glargine (Lantus SoloStar) 100 UNIT/ML pen Inject 16 Units under the skin Nightly., Starting Wed10/24/2024, No Print labetalol (Normodyne) 100 MG tablet Take 1 tablet (100 mg) by mouth 2 times daily., Starting Wed10/31/2024, Normal metFORMIN (Glucophage) 1000 MG tablet Take 1 tablet (1,000 mg) by mouth 2 times daily (with meals)., Starting Wed10/31/2024, Normal nystatin (Mycostatin) 719343 UNIT/GM powder Apply topically 2 times daily., Starting 02/26/2024, Until 02/25/2025, Normal rosuvastatin (Crestor) 5 MG tablet Take 1 tablet (5 mg) by mouth daily., Starting Wed09/01/2024, Until Wed02/28/2025, Normal Tirzepatide (Mounjaro) 5 MG/0.5ML solution auto-injector Inject 5 mg under the skin 1 (one) time per week., Starting Wed11/20/2024, Normal traMADol (Ultram) 50 MG tablet TAKE 1 TABLET BY MOUTH TWICE DAILY NEEDED FOR 7 DAYS, Historical Med Unifine Pentips 31G X 8 MM misc Use as directed with insulin pen, Normal ALLERGIES Cat dander, Lisinopril, and Pollen extract FAMILY HISTORY Family History[3] SOCIAL HISTORY Social History[4] SCREENINGS PHYSICAL EXAM ED Triage Vitals [12/19/24 1851] Temp Heart Rate Resp BP 36.7 C (98.1 F) 82 16 (!) 163/94 SpO2 Temp Source Heart Rate Source Patient Position 96 % Temporal Monitor Sitting BP Location FiO2 (%) Right arm -- Physical Exam Vitals and nursing note reviewed. Constitutional: Appearance: Normal appearance. HENT: Head: Normocephalic and atraumatic. Cardiovascular: Rate and Rhythm: Normal rate. Pulmonary: Effort: Pulmonary effort is normal. Musculoskeletal: General: Normal range of motion. Skin: General: Skin is warm and dry. Findings: Lesion present. Comments: Large skin tag approximately 2 to 3 cm in size on the right abdominal wall, no active bleeding or surrounding redness. Neurological: General: No focal deficit present. Mental Status: She is alert. Mental status is at baseline. Psychiatric: Mood and Affect: Mood normal. Behavior: Behavior normal. DIAGNOSTIC RESULTS Procedures/EKG: EKG was reviewed by myself. Physician EKG interpretation [facility] be found in [facility] RADIOLOGY (Per Emergency Physician): Interpretation per the Radiologist below, if available at the time of this note: No orders to display ED BEDSIDE ULTRASOUND: Performed by ED Physician - none LABS: Labs Reviewed TISSUE EXAM All other labs were within normal range or not returned as of this dictation. EMERGENCY DEPARTMENT COURSE and DIFFERENTIAL DIAGNOSIS/MDM: Vitals: Vitals: 12/19/24 1851 12/19/24 1851 BP: (!) 163/94 BP Location: Right arm Patient Position: Sitting Pulse: 82 Resp: 16 Temp: 36.7 C (98.1 F) TempSrc: Temporal SpO2: 96% Weight: 123 kg (272 lb) Height: 1.651 m (5' 5) ED Course as of 12/19/242000Dec 19, 20241928 59-year-old female presents emergency room today with 1 day of irritated skin tag. On exam skin tag is irritated without any surrounding cellulitis. Removed here in the ED and will send for pathology, 3 stitches placed told to have them removed in 1 week. Told to return sooner for any signs of bleeding, redness warmth or drainage. Otherwise to follow-up with primary care. [BM] ED Course User Index [BM] Amber Holley DO Diagnoses as of 12/19/242000 Skin tag S/P skin biopsy Skin Biopsy, Bedside Performed by: Amber Holley DO Authorized by: Amber Holley DO Consent: The indications, risks, benefits, alternatives to the procedure were explained to the patient/surrogate decision maker and their questions answered. Consent was obtained to proceed with the procedure. Timeout: Completed immediately prior to the start of the procedure which included verification of the correct patient, correct site and agreement on the procedure to be done. Indications: Indications: pain Anesthetic: Local anesthetic used: lidocaine with epinephrine Preparation: Patient was prepped and draped in usual sterile fashion Skin prepped: skin prepped with alcohol Procedure Details: Procedure type: skin tag Number of skin tags removed: 1-15 Location: abdomen Post-procedure: Post-procedure: dressing applied Specimen(s) sent to lab: yes Estimated blood loss: < 5 mL Specify Complication(s): no apparent complications Assistants & Supervision: I personally performed the procedure documented as signed by this procedure note Cad Librarian(s): N/A No supervision required Medications lidocaine-EPINEPHrine (Xylocaine W/EPI) 1 %-1:[id number] injection 10 mL (10 mL Infiltration Given by Other 12/19/241923) REVAL: CRITICAL CARE TIME FINAL IMPRESSION 1. Skin tag 2. S/P skin biopsy DISPOSITION Discharge 12/19/2024 07:29:51 PM PATIENT REFERRED TO: Gio Ricketts MD [address] [place] [address], [address] [facility] [address] In 1 week For suture removal [facility] [address] [place] [id number] In 1 week For suture removal DISCHARGE MEDICATIONS: Discharge Medication List as of 12/19/2024 7:30 PM (Comment: Please note this report has been produced using speech recognition software and may contain errors related to that system including errors in grammar, punctuation, and spelling, as well as words and phrases that may be inappropriate. If there are any questions or concerns please feel free to contact the dictating provider for clarification.) Amber Holley DO (electronically signed) Emergency Medicine Provider [1] Past Medical History: Diagnosis Date Anxiety Arthritis Chest pain Depression Diabetic nephropathy (CMS/HCC) (HCC) Dorsalgia 04/22/2023 Elevated transaminase level Fatigue GERD (gastroesophageal reflux disease) Headache(784.0) Hemorrhoids Hyperlipidemia Hypertension Hyponatremia 2018 Low back pain Neuropathic pain Obesity DONNA (obstructive sleep apnea) Pain in limb 11/10/2023 Rectal bleed Right leg weakness Trochanteric bursitis of left hip Bilateral Type II or unspecified type diabetes mellitus without mention of complication, not stated as uncontrolled (HCC) Uncontrolled type 2 diabetes mellitus with complication 02/19/2015 [2] Past Surgical History: Procedure Laterality Date CARDIAC CATHETERIZATION 06/03/2018 CARPAL TUNNEL RELEASE CHOLECYSTECTOMY COLONOSCOPY 2012 ENDOMETRIAL ABLATION HERNIA REPAIR TONSILLECTOMY AND ADENOIDECTOMY (HISTORICAL) [3] Family History Problem Relation Name Age of Onset Diabetes Mother Heart disease Father Cancer Father prostate High Blood Pressure Father Other ([address]) Sister TBI Depression Mother Substance Abuse Brother Heart disease Mother Other (35569) Mother Depression Brother [4] Social History Socioeconomic History Marital status: Tobacco [...] Unstable Housing in the Last Year: No Amebr Holley DO 12/19/242000 Pt presents to er from home for skin tag under her left breast.pt states there is skin missing, its preston, red and seeping. Pt presents to er from home for skin tag under her left breast.pt states there is skin missing, its preston, red and seeping. documented in this encounter [facility] 12-19-2024 Emergency department Triage note Pt presents to er from home for skin tag under her left breast.pt states there is skin missing, its preston, red and seeping. [facility] 12-19-2024 Physician Emergency department Note Associated Order(s): Skin Biopsy, Bedside EMERGENCY DEPARTMENT ENCOUNTER Pt Name: Raiza Carey Birthdate 1965 Date of evaluation: 12/19/2024 ED Provider: Amber Holley DO CHIEF COMPLAINT Chief Complaint Patient presents with Wound Care Pt presents to er from home for skin tag under her left breast.pt states there is skin missing, its preston, red and seeping. HISTORY OF PRESENT ILLNESS (Location/Symptom, Timing/Onset, Context/Setting, Quality, Duration, Modifying Factors, Severity) Note limiting factors. I wore appropriate PPE for the entirety of this encounter. HPI 59-year-old female presents emergency room today with 1 day of irritated skin tag. Nursing Notes were reviewed. Limitations to history: None Outside historians: None REVIEW OF SYSTEMS Review of Systems Skin: Positive for wound. Pertinent positives and negatives as per HPI. PAST MEDICAL HISTORY Medical History[1] SURGICAL HISTORY Surgical History[2] CURRENT MEDICATIONS Discharge Medication List as of 12/19/2024 7:30 PM CONTINUE these medications which have NOT CHANGED Details albuterol 108 (90 Base) MCG/ACT inhaler Inhale 1 puff every 6 hours as needed for wheezing or shortness of breath., Starting Rianna 08/26/2023, Normal buPROPion XL (Wellbutrin XL) 300 MG 24 hr tablet Take 1 tablet (300 mg) by mouth every morning. Do not crush, chew, or split., Starting Wed10/31/2024, Normal busPIRone (Buspar) 10 MG tablet Take 1 tablet (10 mg) by mouth 2 times daily., Starting Wed10/31/2024, Normal Constulose 10 GM/15ML solution TAKE 15 ML BY MOUTH ONCE DAILY, Historical Med Continuous Glucose Furnace Door Tender (Appticles Adiel 3 [place]) device Check blood sugar 2-4 times daily., Normal Continuous Glucose Sensor (FreeStyle Adiel 3 Sensor) misc every 14 (fourteen) days., Starting Wed12/11/2024, Normal Cyanocobalamin (B-12 Compliance Injection) 1000 MCG/ML kit Inject 1 ml (1000mcg) subcutaneous weekly x 4 then monthly, Normal glimepiride (Amaryl) 4 MG tablet Take 1 tablet (4 mg) by mouth daily (with breakfast)., Starting Wed10/31/2024, Normal HYDROcodone-acetaminophen ([place]) 5-325 MG tablet TAKE 1 TABLET BY MOUTH EVERY 6 HOURS NEEDED FOR PAIN FOR 3 DAYS, Historical Med insulin glargine (Lantus SoloStar) 100 UNIT/ML pen Inject 16 Units under the skin Nightly., Starting Wed10/24/2024, No Print labetalol (Normodyne) 100 MG tablet Take 1 tablet (100 mg) by mouth 2 times daily., Starting Wed10/31/2024, Normal metFORMIN (Glucophage) 1000 MG tablet Take 1 tablet (1,000 mg) by mouth 2 times daily (with meals)., Starting Wed10/31/2024, Normal nystatin (Mycostatin) 787890 UNIT/GM powder Apply topically 2 times daily., Starting 02/26/2024, Until 02/25/2025, Normal rosuvastatin (Crestor) 5 MG tablet Take 1 tablet (5 mg) by mouth daily., Starting Wed09/01/2024, Until Wed02/28/2025, Normal Tirzepatide (Mounjaro) 5 MG/0.5ML solution auto-injector Inject 5 mg under the skin 1 (one) time per week., Starting Wed11/20/2024, Normal traMADol (Ultram) 50 MG tablet TAKE 1 TABLET BY MOUTH TWICE DAILY NEEDED FOR 7 DAYS, Historical Med Unifine Pentips 31G X 8 MM misc Use as directed with insulin pen, Normal ALLERGIES Cat dander, Lisinopril, and Pollen extract FAMILY HISTORY Family History[3] SOCIAL HISTORY Social History[4] SCREENINGS PHYSICAL EXAM ED Triage Vitals [12/19/24 1851] Temp Heart Rate Resp BP 36.7 C (98.1 F) 82 16 (!) 163/94 SpO2 Temp Source Heart Rate Source Patient Position 96 % Temporal Monitor Sitting BP Location FiO2 (%) Right arm -- Physical Exam Vitals and nursing note reviewed. Constitutional: Appearance: Normal appearance. HENT: Head: Normocephalic and atraumatic. Cardiovascular: Rate and Rhythm: Normal rate. Pulmonary: Effort: Pulmonary effort is normal. Musculoskeletal: General: Normal range of motion. Skin: General: Skin is warm and dry. Findings: Lesion present. Comments: Large skin tag approximately 2 to 3 cm in size on the right abdominal wall, no active bleeding or surrounding redness. Neurological: General: No focal deficit present. Mental Status: She is alert. Mental status is at baseline. Psychiatric: Mood and Affect: Mood normal. Behavior: Behavior normal. DIAGNOSTIC RESULTS Procedures/EKG: EKG was reviewed by myself. Physician EKG interpretation can be found in [facility] RADIOLOGY (Per Emergency Physician): Interpretation per the Radiologist below, if available at the time of this note: No orders to display ED BEDSIDE ULTRASOUND: Performed by ED Physician - none LABS: Labs Reviewed TISSUE EXAM All other labs were within normal range or not returned as of this dictation. EMERGENCY DEPARTMENT COURSE and DIFFERENTIAL DIAGNOSIS/MDM: Vitals: Vitals: 12/19/24 1851 12/19/24 1851 BP: (!) 163/94 BP Location: Right arm Patient Position: Sitting Pulse: 82 Resp: 16 Temp: 36.7 C (98.1 F) TempSrc: Temporal SpO2: 96% Weight: 123 kg (272 lb) Height: 1.651 m (5' 5) ED Course as of 12/19/242000Dec 19, 20241928 59-year-old female presents emergency room today with 1 day of irritated skin tag. On exam skin tag is irritated without any surrounding cellulitis. Removed here in the ED and will send for pathology, 3 stitches placed told to have them removed in 1 week. Told to return sooner for any signs of bleeding, redness warmth or drainage. Otherwise to follow-up with primary care. [BM] ED Course User Index [BM] Amber Holley DO Diagnoses as of 12/19/242000 Skin tag S/P skin biopsy Skin Biopsy, Bedside Performed by: Amber Holley DO Authorized by: Amber Holley DO Consent: The indications, risks, benefits, alternatives to the procedure were explained to the patient/surrogate decision maker and their questions answered. Consent was obtained to proceed with the procedure. Timeout: Completed immediately prior to the start of the procedure which included verification of the correct patient, correct site and agreement on the procedure to be done. Indications: Indications: pain Anesthetic: Local anesthetic used: lidocaine with epinephrine Preparation: Patient was prepped and draped in usual sterile fashion Skin prepped: skin prepped with alcohol Procedure Details: Procedure type: skin tag Number of skin tags removed: 1-15 Location: abdomen Post-procedure: Post-procedure: dressing applied Specimen(s) sent to lab: yes Estimated blood loss: < 5 mL Specify Complication(s): no apparent complications Assistants & Supervision: I personally performed the procedure documented as signed by this procedure note Cad Librarian(s): N/A No supervision required Medications lidocaine-EPINEPHrine (Xylocaine W/EPI) 1 %-1:388827 injection 10 mL (10 mL Infiltration Given by Other 12/19/241923) REVAL: CRITICAL CARE TIME FINAL IMPRESSION 1. Skin tag 2. S/P skin biopsy DISPOSITION Discharge 12/19/2024 07:29:51 PM PATIENT REFERRED TO: Gio Ricketts MD [address] [place] [address], [address] [facility] [id number] In 1 week For suture removal [facility] [address] [facility] [id number] In 1 week For suture removal DISCHARGE MEDICATIONS: Discharge Medication List as of 12/19/2024 7:30 PM (Comment: Please note this report has been produced using speech recognition software and may contain errors related to that system including errors in grammar, punctuation, and spelling, as well as words and phrases that may be inappropriate. If there are any questions or concerns please feel free to contact the dictating provider for clarification.) Amber Holley DO (electronically signed) Emergency Medicine Provider [1] Past Medical History: Diagnosis Date Anxiety Arthritis Chest pain Depression Diabetic nephropathy (CMS/HCC) (HCC) Dorsalgia 04/22/2023 Elevated transaminase level Fatigue GERD (gastroesophageal reflux disease) Headache(784.0) Hemorrhoids Hyperlipidemia Hypertension Hyponatremia 2018 Low back pain Neuropathic pain Obesity DONNA (obstructive sleep apnea) Pain in limb 11/10/2023 Rectal bleed Right leg weakness Trochanteric bursitis of left hip Bilateral Type II or unspecified type diabetes mellitus without mention of complication, not stated as uncontrolled (HCC) Uncontrolled type 2 diabetes mellitus with complication 02/19/2015 [2] Past Surgical History: Procedure Laterality Date CARDIAC CATHETERIZATION 06/03/2018 CARPAL TUNNEL RELEASE CHOLECYSTECTOMY COLONOSCOPY 2012 ENDOMETRIAL ABLATION HERNIA REPAIR TONSILLECTOMY AND ADENOIDECTOMY (HISTORICAL) [3] Family History Problem Relation Name Age of Onset Diabetes Mother Heart disease Father Cancer Father prostate High Blood Pressure Father Other ([id number]) Sister TBI Depression Mother Substance Abuse Brother Heart disease Mother Other ([id number]) Mother Depression Brother [4] Social History Socioeconomic History Marital status: Tobacco [...] Unstable Housing in the Last Year: No Amber Holley DO 12/19/242000 [facility] 12-18-2024 Note [facility] Medical Records Department [address] [place] [address] History Physical Exam 12/18/24 0654 MR#: [id number] Acct: [id number] Name: MELANIE CAREY Rep #: [id number] : 1965 59 From: Hugo Friend PCP: Dr. Gio Ricketts MD Status[facility] Location: [place] [address] HPI - General General Date of Admission: 12/18/24 Date of Service: 12/18/24 Chief Complaint: abdominal pain and diarrhea HPI Narrative MELANIE CAREY, is a 59 F who presentsr - Seen in the office today with her - reports she has seen Dr. Nuno in the past and diagnosed with UC and most recent colonoscopy revealed Crohn's - reports with initial diagnosis of severe UC she had diarrhea, mucus and bleeding treated with Asacol - states once symptoms resolved she discontinued Asacol Colon states this revealed Crohn's - she has been on Mounjaro for 3 months - she is not having a BM daily Autoimmune: denies ???Meds: ???ALCOHOL: denies ???NSAIDS: alternating tylenol 975mg QD or IBU 1000mg QD - recently prescribed Meloxicam 7.5mg BID Jaundice: denies ???Ascites: uncertain ???Tattoo: denies ???IVDU: denies Blood Transfusion: denies ???Any h/o DVT: denies ???FAMILY h/o liver disease: denies CBC: 08/26/2024 WBC 3.1, HGB 11.9, PLT 58 LP: BMP: 04/23/2024 BUN 10, Creat 1.06, Na 134, K+ 4.0 PT/INR: AFP: MELD: unable to calculate without appropriate labs - will order today ASTERIXIS: none noted ENCEPHALOPATHY: No previously reported episodes. Denies any change in mental status. DIET: Patient has been counseled to follow a strict low sodium diet. WEIGHT: within the past couple months her weight is stable PULSE: Labetalol 100mg BID - HR 71 FIBROSCAN: not previously performed LIVER BX: not previously performed ABD US 09/30/2023 hepatomegaly with fatty infiltration, splenomegaly, large main portal vein, trace ascites, findings of portal hypertension CT 04/19/2023 Umbilical hernia with ascitic fluid. Cirrhosis. Splenomegaly. Moderate ascites. Paraesophageal varices. Mild retroperitoneal adenopathy. PARA: not previously performed DOPPLER: not previously performed EGD: per patient >5 years ago RECALL COLONOSCOPY - per patient she is due now [facility] Medical History Arthritis Anemia High cholesterol History of Crohn's [...] 10/01/23 History aerosol inhaler Shortness Of Breath labetalol 100 mg tablet 100 mg PO BID 07/29/20 12/17/24 Hi story metformin 1,000 mg tablet 1,000 mg PO BIDCM 07/29/20 5 History bupropion HCl 300 mg 24 hr tablet, 300 mg PO QAM 30 days #30 tabs 0 02/01/23 12/17/24 Rx extended release buspirone 10 mg tablet 10 mg PO BID 10/31/24 12/17/24 His tory glimepiride 4 mg tablet 4 mg PO QAM 10/31/24 12/17/24 Hist ory insulin glargine 100 unit/mL 16 unit subcut QHS 10/31/24 History subcutaneous solution (Lantus U-100 Insulin) lactulose 10 gram/15 mL oral 10 g (15 mL) PO QDAY 90 days 10/3112/15/24 Rx solution #1,350 mL mecobalamin (vitamin B12) 10,000 10,000 mcg IM QMONTH 10/31/2409/05 History mcg solution for injection rosuvastatin 5 mg tablet 5 mg PO QDAY 10/31/24 12/17/24 His tory tirzepatide 5 mg/0.5 (more content not included)... [facility] 10-24-2024 Evaluation + Plan note Associated Problem(s): Pain management Continue with pain management as directed. [facility] 10-24-2024 Miscellaneous Notes Associated Problem(s): Pain management [...] activity as tolerated. documented in this encounter [facility] 10-24-2024 Evaluation + Plan note Associated Problem(s): Vitamin B 12 deficiency Continue b12 injections [facility] 10-24-2024 Evaluation + Plan note Associated Problem(s): Pancytopenia (HCC) Follow-up with hematology as directed. [facility] 10-24-2024 Evaluation + Plan note Associated Problem(s): Major depressive disorder, single episode, unspecified Continue bupropion xl 300 mg and Buspar 10 mg twice daily. Recommend counseling services. [facility] 10-24-2024 Note Continue bupropion x l 300 mg and Buspar 10 mg twice daily. Recommend counseling services. [facility] 10-24-2024 Evaluation + Plan note Associated Problem(s): Diabetic nephropathy associated with type 2 diabetes mellitus (HCC) Stable. Get diabetes under control. Blood pressures are good [facility] 10-24-2024 Evaluation + Plan note Associated Problem(s): Other cirrhosis of liver (HCC) Stable. Follow up with gastroenterology as scheduled [facility] 10-24-2024 Evaluation + Plan note Associated [...] order to get better control of diabetes. [facility] 10-24-2024 Evaluation + Plan note Associated Problem(s): Anxiety Stable. Continue Wellbutrin 300 mg daily, BuSpar 10 mg twice daily. Recommend establishing with counselor [facility] 10-24-2024 Evaluation + Plan note Associated Problem(s): Essential hypertension Controlled. Blood pressure 124/72. Continue labetalol 100 mg twice daily. Has not tolerated CLAUDY inhibitors in the past, consider ARB [facility] 10-24-2024 Evaluation + Plan note Associated Problem(s): Hyperlipidemia LDL goal <70 Controlled. Continue rosuvastatin 5 mg daily [facility] 10-24-2024 Evaluation + Plan note Associated Problem(s): Class 3 severe obesity due to excess calories with serious comorbidity and body mass index (BMI) of 40.0 to 44.9 in adult (HCC) Continue portion control, low carb,low fat, low cholesterol diet. Increase physical activity as tolerated. [facility] 10-24-2024 History of Present illness Narrative Patient [...] 2 diabetes mellitus with hyperglycemia, unspecified whether senior care insulin use (HCC) - insulin glargine (Lantus SoloStar) 100 UNIT/ML pen; Inject 16 Units under the skin Nightly., Starting 10/24/2024, No Print 13. Yeast dermatitis - fluconazole (Diflucan) 150 MG tablet; Take 1 tablet (150 mg) by mouth daily for 7 days. Take one tab now. Repeat in 7 days if symptoms persist., Starting Wed10/24/2024, Until Wed10/31/2024, Normal 14. Class 3 severe obesity due to excess calories with serious comorbidity and body mass index (BMI) of 40.0 to 44.9 in adult ([facility]) Assessment & Plan: Continue portion control, low carb,low fat, low cholesterol diet. Increase physical activity as tolerated. Follow up for 3 month [facility]. SUBJECTIVE/OBJECTIVE: HPI - Melanie Carey (: [...] was supposed to start physical therapy at [facility] in [place] but was not able to get it [...] mg) by mouth daily (with breakfast). HYDROcodone-acetaminophen ([place]) 5-325 MG tablet TAKE 1 TABLET BY MOUTH EVERY 6 HOURS NEEDED FOR PAIN FOR 3 DAYS labetalol (Normodyne) 100 MG tablet TAKE 1 TABLET BY MOUTH IN THE MORNING AND 1 TABLET IN THE EVENING. 60 tablet 0 metFORMIN (Glucophage) 1000 MG tablet Take 1 tablet (1,000 mg) by mouth 2 times daily (with meals). 180 tablet 1 nystatin (Mycostatin) 375993 UNIT/GM powder Apply topically 2 times daily. [...] 10/24/2024 10:01 AM documented in this encounter [facility] 10-24-2024 Instructions NICOLE Easley CNP - 10/24/2024 7:20 AM EDT Send daily fasting and 2 hour after meal blood sugar readings every 3 days to [place] through [employer]. documented in this encounter [facility] 09-27-2024 Emergency department Note Humalog dose verified by doctor zara maddox. Per provider varsha, pt does not need the 24 units of Humalog and verbal orders with read back for 10 units of Humalog were given and verbal orders with read back for 650 mg of tylenol were in. [facility] 09-27-2024 Emergency department Note Humalog dose verified [...] mention of complication, not stated as uncontrolled ([facility]) Uncontrolled type 2 diabetes mellitus with complication [...] 2 times daily (with meals). NYSTATIN (MYCOSTATIN) 490907 UNIT/GM POWDER Apply topically 2 times daily. [...] Father prostate High Blood Pressure Father Other ([id number]) Sister TBI Depression Mother Substance Abuse Brother Heart disease Mother Other ([id number]) Mother Depression Brother SOCIAL HISTORY Social History [...] nursing note reviewed. Exam conducted with a supervisor shrimp pond present. Constitutional: Appearance: Normal appearance. She is [...] acute ST elevation or ST depression however. CT is prolonged although the rest of her [...] Abnormal Glucose >450 (*) Narrative: Performed by: [facility], [address] [place] [address] CLIA ID: [id number] POCT GLUCOSE METER UNSOLICITED RESULTS - Abnormal Glucose 303 (*) Narrative: Performed by: [facility], [address] [facility] [address] CLIA ID: [id number] BETA HYDROXYBUTYRATE - Normal BETA HYDROXYBUTYRATE 2.3 MAGNESIUM - Normal MAGNESIUM 1.6 Narrative: Higher values can be expected in females during menses. COMPLETE URINALYSIS WITH REFLEX TO CULTURE Narrative: The following orders were created for panel order Urinalysis complete with reflex to Culture. Procedure Abnormality Status --------- ------ Complete Urinalysis[[id number]] Please view results for these tests on [...] Discharge 09/27/2024 05:56:50 PM PATIENT REFERRED TO: Gio Ricketts MD [address] [place] [address], [address] [facility] [address] Schedule an appointment as soon as possible [...] MD 09/27/24 1800 documented in this encounter [facility] 09-27-2024 Physician Emergency department Note EMERGENCY DEPARTMENT [...] 2 times daily (with meals). NYSTATIN (MYCOSTATIN) 040182 UNIT/GM POWDER Apply topically 2 times daily. [...] Father prostate High Blood Pressure Father Other ([id number]) Sister TBI Depression Mother Substance Abuse Brother Heart disease Mother Other ([id number]) Mother Depression Brother SOCIAL HISTORY Social History [...] nursing note reviewed. Exam conducted with a supervisor shrimp pond present. Constitutional: Appearance: Normal appearance. She is [...] acute ST elevation or ST depression however. CT is prolonged although the rest of her [...] Abnormal Glucose >450 (*) Narrative: Performed by: [facility], [address] [place] [address] CLIA ID: [id number] POCT GLUCOSE METER UNSOLICITED RESULTS - Abnormal Glucose 303 (*) Narrative: Performed by: [facility], [address] [place] [address] CLIA ID: [id number] BETA HYDROXYBUTYRATE - Normal BETA HYDROXYBUTYRATE 2.3 MAGNESIUM - Normal MAGNESIUM 1.6 Narrative: Higher values can be expected in females during menses. COMPLETE URINALYSIS WITH REFLEX TO CULTURE Narrative: The following orders were created for panel order Urinalysis complete with reflex to Culture. Procedure Abnormality Status --------- ------ Complete Urinalysis[[id number]] Please view results for these tests on [...] Discharge 09/27/2024 05:56:50 PM PATIENT REFERRED TO: Gio Ricketts MD [address] [place] [address] [place] [phone] Schedule an appointment as soon as possible [...] Medicine Provider Jimenez Maddox MD 09/27/24 1800 [employer] [facility] 09-27-2024 Telephone encounter Note I messaged her through my chart. [employer] [facility] 09-27-2024 Miscellaneous Notes I messaged her through [...] what her blood sugar is. Message to Kassi for advice. For tonight patient will check [...] Office back line called and spoke with Kassi who states to have patient Take an [...] another shot. This information was relayed to Kassi via secure chat for any further recommendations. Patient advised will call her with any further recommendations. S: Patient spoke with [facility] nurse regarding elevated blood sugar reading. B: Onset of symptoms started overnight. She did have an injection for pain, in the right hip, on 09/26/24 at [facility]. A: Patient reports she had [...] R: Second level triage, via phone, with Kassi Seymour APRN, HOLLIE. Provider would like patient [...] mmol/L) Protocols used: Diabetes - High Blood Mkhjr-BHBWS-UN documented in this encounter [facility] 09-27-2024 Telephone encounter Note I will call her this evening after she gets home from work. Thanks. [facility] 09-27-2024 Telephone encounter Note Patient called back and advised will stick with current plan. Patient wanting to know if she cannot get her Glimepiride today while at work if she should take it when she gets home from work around 5pm or just wait and see what her blood sugar is. Message to Kassi for advice. For tonight patient will check her blood sugar and if over 200 give 10 units at bedtime. If over 250 12 units. If over 300 call office for dosing and further instruction. Monitor for low blood sugars. [facility] 09-27-2024 Telephone encounter Note Patient current blood sugar is 443 and patient took this last about 10 minutes ago. Prior to this she states it was 448. Patient states last night took 14 units of insulin and this was prior to the extra that she added on at 2-3am. Office back line called and spoke with Kassi who states to have patient Take an [...] another shot. This information was relayed to Kassi via secure chat for any further recommendations. Patient advised will call her with any further recommendations. [facility] 09-27-2024 Telephone encounter Note S: Patient spoke with [facility] nurse regarding elevated blood sugar reading. B: Onset of symptoms started overnight. She did have an injection for pain, in the right hip, on 09/26/24 at [facility]. A: Patient reports she had profuse sweating [...] R: Second level triage, via phone, with Kassi Seymour APRN, [employer]. Provider would like patient to check her [...] mmol/L) Protocols used: Diabetes - High Blood Hxnos-ZWSCK-PM [facility] 09-20-2024 Telephone encounter Note Reviewed chart. Refill appropriate. RX sent. [facility] 09-20-2024 Miscellaneous Notes Reviewed chart. Refill appropriate. RX sent. Prescription Request: Last medication check: 08-01-24 Last physical exam: 08-26-23 Next scheduled appointment: 10-24-24 Last date of refill on this medication 08-02-24 documented in this encounter [facility] 09-20-2024 Telephone encounter Note Prescription Request: Last medication check: 08-01-24 Last physical exam: 08-26-23 Next scheduled appointment: 10-24-24 Last date of refill on this medication 08-02-24 [facility] 08-25-2024 History of Present illness Narrative Images from the original note were not included. 08/25/2024 Melanie Carey (: 1965) is a 59 y.o. female , Established patient, here for evaluation of the following chief complaint(s): URI Patient was identified and seen today via Telehealth by agreement and consent. I used the following Telehealth technology: Audio and video capabilities. Patient location: [place] Patient Location: Home. This patient encounter is [...] stated that they are currently in the [facility]. If the patient is a minor, [...] 08/25/2024 2:03 PM documented in this encounter [employer] 08-02-2024 Telephone encounter Note ----- Message from [...] you to know she was able to cook pickled meat the Mounjaro. [employer] [facility] 08-02-2024 Miscellaneous Notes ----- Message from NICOLE [...] you to know she was able to cook pickled meat the Mounjaro. documented in this encounter [facility] 08-01-2024 Evaluation + Plan note Associated Problem(s): Financial difficulty Patient reports difficulty meeting monthly rent due to recent hospitalizations of her significant other. Patient states she is okay with licensed plumber reaching out to her to provide potential resources. [facility] 08-01-2024 Miscellaneous Notes Associated Problem(s): Financial difficulty Patient reports difficulty meeting monthly rent due to recent hospitalizations of her significant other. Patient states she is okay with licensed plumber reaching out to her to provide potential [...] needed as directed. documented in this encounter [facility] 08-01-2024 Evaluation + Plan note Associated Problem(s): Anxiety Stable. Continue Wellbutrin 300 mg daily, BuSpar 10 mg twice daily. Recommend establishing with counselor [facility] 08-01-2024 Evaluation + Plan note Associated Problem(s): Hyperlipidemia LDL goal <70 Check lipids today, currently not on statin. [email or web address] 08-01-2024 Evaluation + Plan note Associated Problem(s): Essential hypertension Controlled. Blood pressure 137/81. Continue labetalol 100 mg twice daily. Has not tolerated CLAUDY inhibitors in the past, consider ARB [email or web address] 08-01-2024 Evaluation + Plan note Associated Problem(s): Type 2 diabetes with nephropathy (HCC) Control unknown. Obtain hemoglobin A1c, cmp today. Continue metformin 1000 mg twice daily, glimepiride 2 mg daily and start Mounjaro 2.5 mg weekly. Patient to send provider with update when she starts the Mounjaro and provide glucose readings fasting and 2 hours postmeal in 2 weeks. [email or web address] 08-01-2024 Evaluation + Plan note Associated Problem(s): Obstructive sleep apnea syndrome Uncontrolled. Does not have CPAP- will need re-evaluation [email or web address] 08-01-2024 Evaluation + Plan note Associated Problem(s): Low platelet count (HCC) Check platelets. Established with hematology- but has not seen them in awhile d/t financial concerns [email or web address] 08-01-2024 Evaluation + Plan note Associated Problem(s): Other cirrhosis of liver (HCC) Stable. Consider obtaining labs to evaluate fibrosis score. Will review chart further to see if this has been completed yet. She was briefly seeing gastroenterology. [facility] 08-01-2024 Evaluation + Plan note Associated Problem(s): Class 3 severe obesity due to excess calories with serious comorbidity and body mass index (BMI) of 40.0 to 44.9 in adult (HCC) Continue portion control, low carb,low fat, low cholesterol diet. Has had about 30 lbs weight loss since 11/2023. Increase physical activity as tolerated. [facility] 08-01-2024 Evaluation + Plan note Associated Problem(s): Vitamin B 12 deficiency Last b12 level low, has not been taking b12, Restart vit b 12 injections. Will plan on checking B12 level at next visit. [facility] 08-01-2024 Evaluation + Plan note Associated Problem(s): Major depressive disorder, single episode, unspecified Currently with increased symptoms d/t increased life stress/financial concerns. Denies si/hi. Continue bupropion xl 300 mg and Buspar 10 mg twice daily. Recommend counseling services. [facility] 08-01-2024 Evaluation + Plan note Associated Problem(s): Chronic obstructive pulmonary disease (HCC) Controlled. Denies any increased shortness of breath or cough. Continue albuterol as needed as directed. [facility] 08-01-2024 History of Present illness Narrative Patient was identified by name and Date of . Health Maintenance Due Topic Diabetes: Retinopathy Screening-needs completed Pneumococcal Vaccine-declined Cervical Cancer Screening-declined Colorectal Cancer Screening-declined Diabetes: Urine Dlmcctn-Gyqywkporo-qfwjui Mammogram-pended Diabetes: Foot Exam-pended Depression Monitoring-NEEDS DONE Influenza Vaccine-had completed Images from the original note were not included. 08/01/2024 Melanie Carey (: 1965) is a 59 y.o. female , Established patient, here for evaluation of the following chief complaint(s): Diabetes and Health Maintenance (Diabetes: Retinopathy Screening-needs completed/Pneumococcal Vaccine-declined/Cervical Cancer Screening-declined/Colorectal Cancer Screening-declined/Diabetes: Urine Nanklmq-Zxtgjsrmkr-aacipz/Mammogra m-pended/Diabetes: Foot Exam-pended/Depression Monitoring-NEEDS DONE/Influenza Vaccine-had completed/) [...] - Microalbumin / creatinine, urine ratio - Diabetes Foot Exam - Comprehensive metabolic panel [...] 2 diabetes mellitus with hyperglycemia, unspecified whether exterminator insulin use ([facility]) - glimepiride (Amaryl) 2 MG tablet; Take 1 tablet (2 mg) by mouth daily (with breakfast)., Starting Wed08/01/2024, Normal 9. Other cirrhosis of liver ([facility]) Assessment & Plan: Stable. Consider obtaining labs to evaluate fibrosis score. Will review chart further to see if this has been completed yet. She was briefly seeing gastroenterology. 10. Chronic bronchitis, unspecified chronic bronchitis type ([facility]) Assessment & Plan: Controlled. Denies any increased shortness of breath or cough. Continue albuterol as needed as directed. 11. Current mild episode of major depressive disorder without prior episode ([facility]) Assessment & Plan: Currently with increased symptoms d/t increased life stress/financial concerns. Denies si/hi. Continue bupropion xl 300 mg and Buspar 10 mg twice daily. Recommend counseling services. 12. Class 3 severe obesity due to excess calories with serious comorbidity and body mass index (BMI) of 40.0 to 44.9 in adult ([facility]) Assessment & Plan: Continue portion control, low [...] Patient states she is okay with licensed plumber reaching out to her to provide potential resources. Follow up in about 3 months (around 10/30/2024[facility] SUBJECTIVE/OBJECTIVE: HPI - Melanie Carey (: 1965) is a 59 y.o. female , Established patient, here for the evaluation of the following chief complaint(s): Diabetes and Health Maintenance (Diabetes: Retinopathy Screening-needs completed/Pneumococcal Vaccine-declined/Cervical Cancer Screening-declined/Colorectal Cancer Screening-declined/Diabetes: Urine Dlcbcyt-Uazyvyvtsx-jukyjf/Mammogra m-pended/Diabetes: Foot Exam-pended/Depression Monitoring-NEEDS DONE/Influenza Vaccine-had completed/) Diabetes-patient currently does not have CGM. There is issues with her insurance covering it and off. She states she is going to reach out to the anth and see if they will be able [...] She was supposed to follow-up with a front tender for further evaluation however patient has not done so Medication Sig Start Date End Date Taking? Authorizing Provider albuterol 108 (90 Base) MCG/ACT inhaler Inhale 1 puff every 6 hours as needed for wheezing or shortness of breath. 08/26/23 Yes Kassi Seymour APRN - ACCOUNT EXECUTIVE [employer] buPROPion XL (Wellbutrin XL) 300 MG 24 hr tablet Take 1 tablet (300 mg) by mouth daily. Do not crush, chew, or split. 03/02/24 Yes NICOLE Easley CNP busPIRone (Buspar) 10 MG tablet Take 1 tablet by mouth twice daily 05/29/24 Yes Kassi Seymour APRN - [place] glimepiride (Amaryl) 2 [...] THE EVENING. TAKE WITH FOOD. 07/19/24 Yes Gio Ricketts MD nystatin (Mycostatin) 000678 UNIT/GM powder Apply topically 2 times daily. [...] not taking: Reported on 08/01/2024 10/14/23 10/13/24 KassiNICOLE Mcdermott CNP hydrOXYzine HCl (Atarax) 25 MG tablet [...] 08/01/2024 5:10 PM documented in this encounter [facility] 08-01-2024 Instructions NICOLE Easley CNP - 08/01/2024 7:20 AM EST Goals for 2024 Call Hardik regarding CGM (glucose meter) Diabetes under control B12 good- will check in 3 months Sleep study Liver evaluation Let me know when or if you get the mounjaro. Check glucose fasting and 2 hours after meals - send readings through [facility] in 1-2 weeks. The following attachments cannot be sent through Care Everywhere.Neck Stretches (Nicaraguan)documented in this encounter [facility] 06-30-2024 History of Present illness Narrative Called and spoke with Raiza. Offered appointment Wednesday next week and declined stating she will be in [place] with her who is getting testing done. [...] distress or disorientation. documented in this encounter [facility] 05-29-2024 Telephone encounter Note Reviewed chart. Refill appropriate. RX sent. [facility] 05-29-2024 Miscellaneous Notes Reviewed chart. Refill appropriate. RX sent. Prescription Request: Last medication check: 11/11/2023 Last physical exam: 08/26/2023 Next scheduled appointment: none Last date of refill on this medication: 08/26/2023 documented in this encounter [facility] 05-29-2024 Telephone encounter Note Prescription Request: Last medication check: 11/11/2023 Last physical exam: 08/26/2023 Next scheduled appointment: none Last date of refill on this medication: 01/03/2024 [facility] 05-29-2024 Miscellaneous Notes Prescription Request: Last medication check: 11/11/2023 Last physical exam: 08/26/2023 Next scheduled appointment: none Last date of refill on this medication: 01/03/2024 documented in this encounter [facility] 05-29-2024 Telephone encounter Note Prescription Request: Last medication check: 11/11/2023 Last physical exam: 08/26/2023 Next scheduled appointment: none Last date of refill on this medication: 08/26/2023 [facility] 03-02-2024 Telephone encounter Note Reviewed chart. Refill appropriate. RX sent. [facility] 03-02-2024 Miscellaneous Notes Reviewed chart. Refill appropriate. RX sent. Prescription Request: Last medication check: 11/11/23 Last physical exam: 08/26/23 Next scheduled appointment: none Last date of refill on this medication 08/26/23 documented in this encounter [facility] 03-02-2024 Telephone encounter Note Prescription Request: Last medication check: 11/11/23 Last physical exam: 08/26/23 Next scheduled appointment: none Last date of refill on this medication 08/26/23 [facility] 02-26-2024 Emergency department Note EMERGENCY DEPARTMENT ENCOUNTER [...] by mouth 2 times daily. CONTINUOUS GLUCOSE DYNAMOMETER TESTER ENGINE (RetrophinSTYLE ADILE 3 READER) DEVICE 1 Device daily. CONTINUOUS GLUCOSE SENSOR (FREESTYLE ADIEL 3 SENSOR) MISC every 14 (fourteen) days. [...] Father prostate High Blood Pressure Father Other ([id number]) Sister TBI Depression Mother Substance Abuse Brother Heart disease Mother Other ([id number]) Mother Depression Brother SOCIAL HISTORY Social History [...] nursing note reviewed. Exam conducted with a supervisor shrimp pond present. Constitutional: General: She is not in [...] with no significant improvement. These have been dugu-hcu-kfdnpxy agents. Patient be discharged home with a [...] Discharge 02/26/2024 08:20:57 AM PATIENT REFERRED TO: Gio Ricketts MD [address] [facility] [id number] Schedule an appointment as soon as possible for a visit [facility] [address] [place] [id number] If symptoms worsen DISCHARGE MEDICATIONS: New Prescriptions FLUCONAZOLE (DIFLUCAN) 100 MG TABLET Take 1 tablet (100 mg) by mouth daily for 7 days. NYSTATIN (MYCOSTATIN) 176051 UNIT/GM POWDER Apply topically 2 times daily. [...] Grady MD 02/26/24825 documented in this encounter [facility] 02-26-2024 Physician Emergency department Note EMERGENCY DEPARTMENT [...] by mouth 2 times daily. CONTINUOUS GLUCOSE DYNAMOMETER TESTER ENGINE (FREESTYLE ADIEL 3 READER) DEVICE 1 Device daily. CONTINUOUS GLUCOSE SENSOR (FREESTYLE ADIEL 3 SENSOR) MISC every 14 (fourteen) days. [...] Father prostate High Blood Pressure Father Other ([id number]) Sister TBI Depression Mother Substance Abuse Brother Heart disease Mother Other ([id number]) Mother Depression Brother SOCIAL HISTORY Social History [...] nursing note reviewed. Exam conducted with a supervisor shrimp pond present. Constitutional: General: She is not in [...] with no significant improvement. These have been hevd-vwe-eacailc agents. Patient be discharged home with a [...] Discharge 02/26/2024 08:20:57 AM PATIENT REFERRED TO: Gio Ricketts MD [address] [facility] [address] [facility] [address] Schedule an appointment as soon as possible for a visit [facility] [address] [facility] [address] If symptoms worsen DISCHARGE MEDICATIONS: New Prescriptions FLUCONAZOLE (DIFLUCAN) 100 MG TABLET Take 1 tablet (100 mg) by mouth daily for 7 days. NYSTATIN (MYCOSTATIN) 773933 UNIT/GM POWDER Apply topically 2 times daily. [...] Emergency Medicine Provider Nelson Grady MD 02/26/24825 [facility] 02-19-2024 Emergency department Note Discharge instructions reviewed with patient. Medications, treatments, and follow up appointments discussed. IV removed. Medications completed. VS stable. All questions answered. Patient verbalized understanding. Kandis Belcher RN 02/19/241924 [facility] 02-19-2024 Emergency department Note Discharge instructions reviewed [...] relief of symptoms. documented in this encounter [facility] 02-19-2024 Hospital Discharge instructions NICOLE Saleh CNP [...] sent through Care Everywhere.Headache Discharge Instructions, Adult ([place]icaraguan)documented in this encounter [facility] 02-19-2024 Emergency department Note NIH not needed per provider Tiffany Aggarwal, originally done as baseline. OK to discontinue. Order not found. Provider aware. Kandis Belcher RN 02/19/24 7432 [facility] 02-19-2024 Emergency department Note Pt was seen [...] easy non labored. Kandis Belcher RN 02/19/241924 [facility] 02-19-2024 Emergency department Triage note Patient presents for head and neck pain that started yesterday evening. States she can barely move her neck due to pain. States the last time she had a headache this bad was several years ago when she had COVID. Denies known injury. States she has been taking Tylenol without relief of symptoms. [facility] 01-03-2024 Telephone encounter Note Reviewed chart. Refill appropriate. RX sent. [facility] 01-03-2024 Miscellaneous Notes Reviewed chart. Refill appropriate. RX sent. Prescription Request: Last medication check: not found Last physical exam: 08/26/2023 Last completed appointment: 11/11/2023 Next scheduled appointment: none Last date of refill on this medication: Buspar: 08/26/2023 w/3 refills Metformin: 10/13/2023 w/3 refills Labetalol: 08/26/2023 w/3 refills documented in this encounter [facility] 01-03-2024 Telephone encounter Note Prescription Request: Last medication check: not found Last physical exam: 08/26/2023 Last completed appointment: 11/11/2023 Next scheduled appointment: none Last date of refill on this medication: Buspar: 08/26/2023 w/3 refills Metformin: 10/13/2023 w/3 refills Labetalol: 08/26/2023 w/3 refills [facility] 12-23-2023 History of Present illness Narrative This [...] the past. Order sent to pharmacy per [place] guidelines, may require PA documented in this encounter [facility] 12-13-2023 Hospital Discharge instructions Vani Salas PA-C [...] Care Everywhere.Low Blood Sugar Discharge Instructions, Adult ([place]icaraguan)Low Blood Sugar in People With Diabetes ([place]icaraguan)documented in this encounter [facility] 12-13-2023 Emergency department Note Emergency Department Encounter [facility] Patient: Melanie Carey : 1965 Date [...] dictating provider for clarification.) Victorino Akins MD [facility] Victorino Akins MD 12/13/231957 Patient endorses recurrent hypoglycemia despite taking glucose tabs. BGC: 80mg/dL in triage. Provided orange juice at this time. documented in this encounter [facility] 12-13-2023 Emergency department Triage note Patient endorses recurrent hypoglycemia despite taking glucose tabs. BGC: 80mg/dL in triage. Provided orange juice at this time. [facility] 12-13-2023 Physician Emergency department Note Emergency Department Encounter [facility] Patient: Melanie Carey : 1965 Date [...] [employer] Victorino Akins MD 12/13/231957 [employer] Phone: 12-04-2023 Emergency department Note [facility] eMERGENCY dEPARTMENT eNCOUnter Pt Name: Melanie [...] the emergency department. Patient presents with a mdhtf-xl-jvbj glucose of 133. She got concerned as [...] times daily., Starting Wed08/26/2023, Normal Continuous Glucose Furnace Door Tender (FreeStyle Adiel 3 [place]) device 1 Device daily., Starting Wed11/16/2023, Normal Continuous Glucose Sensor (FreeStyle Adiel 3 Sensor) misc every 14 (fourteen) days., [...] Father prostate High Blood Pressure Father Other ([id number]) Sister TBI Depression Mother Substance Abuse Brother Heart disease Mother Other ([id number]) Mother Depression Brother SOCIAL HISTORY Social History [...] Value Glucose 133 (*) Narrative: [facility], [address] [place] [address] CLIA ID: [id number] POCT GLUCOSE METER UNSOLICITED RESULTS - Abnormal Glucose 122 (*) Narrative: [facility]formed by: [facility], [address] [facility] [address] CLIA ID: [id number] POCT GLUCOSE METER All other labs were [...] 2 diabetes mellitus treated with insulin ([facility]) ([facility]): acute illness or injury Patient presents to [...] health: Reformed smoker ED diagnostics included 2 fxiio-zd-xecw blood glucose test. The first one at 133 and after a period of observation a repeat 122. The patient requested to be discharged home. She states her will keep a close eye on her. She is discharged with home-going instructions on diabetes and hypoglycemia. She is to follow-up with her primary care physician and edge banding machine offbearer. She can return should signs and symptoms [...] 2 diabetes mellitus treated with insulin ([facility]) ([facility]) DISPOSITION/PLAN DISPOSITION Discharge 12/04/2023 07:26:20 PM PATIENT REFERRED TO: Gio Ricketts MD [address] [place] [address] [address] [place] [id number] Schedule an appointment as soon as possible for a visit in 3 days DISCHARGE MEDICATIONS: Discharge Medication List as of 12/04/2023 7:27 PM @FLOWCSM([id number]:LAST:1)@ (Please note: Portions of this note were [...] 133 in triage documented in this encounter [facility] 12-04-2023 Emergency department Triage note Patient reports her blood glucose has been running high and then it dropped after insulin. CBG 133 in triage [facility] 12-04-2023 Physician Emergency department Note [facility] eMERGENCY dEPARTMENT eNCOUnter Pt Name: Melanie [...] the emergency department. Patient presents with a mbttm-fi-iptu glucose of 133. She got concerned as [...] times daily., Starting Wed08/26/2023, Normal Continuous Glucose Furnace Door Tender (FreeStyle Adiel 3 [place]) device 1 Device daily., Starting Wed11/16/2023, Normal Continuous Glucose Sensor (FreeStyle Adiel 3 Sensor) misc every 14 (fourteen) days., [...] Father prostate High Blood Pressure Father Other ([id number]) Sister TBI Depression Mother Substance Abuse Brother Heart disease Mother Other ([id number]) Mother Depression Brother SOCIAL HISTORY Social History [...] Value Glucose 133 (*) Narrative: [facility] by: [facility], [address] [place] [address] CLIA ID: [id number] POCT GLUCOSE METER UNSOLICITED RESULTS - Abnormal Glucose 122 (*) Narrative: [facility]formed by: [facility], [address] [facility] [address] CLIA ID: [id number] POCT GLUCOSE METER All other labs were [...] 2 diabetes mellitus treated with insulin ([facility]) ([facility]): acute illness or injury Patient presents to [...] health: Reformed smoker ED diagnostics included 2 tlfeg-ea-wdoo blood glucose test. The first one at 133 and after a period of observation a repeat 122. The patient requested to be discharged home. She states her will keep a close eye on her. She is discharged with home-going instructions on diabetes and hypoglycemia. She is to follow-up with her primary care physician and edge banding machine offbearer. She can return should signs and symptoms [...] 2 diabetes mellitus treated with insulin ([facility]) ([facility]) DISPOSITION/PLAN DISPOSITION Discharge 12/04/2023 07:26:20 PM PATIENT REFERRED TO: Gio Ricketts MD [address] [place] [address], [address] [place] [id number] Schedule an appointment as soon as possible for a visit in 3 days DISCHARGE MEDICATIONS: Discharge Medication List as of 12/04/2023 7:27 PM @FLOWCSM([id number]:LAST:1)@ (Please note: Portions of this note were completed with a voice recognition program. Efforts were made to edit thedictations but occasionally words and phrases are mis-transcribed.) Form [id number] Jahaira Hankins PA-C (electronically signed) Emergency Medicine Provider Jahaira Hankins PA-C 12/04/232032 Jahaira Hankins PA-C 12/04/232034 [facility] 11-16-2023 History of Present illness Narrative Provider had face to face visit with patient and requests a CGM be sent to pharmacy, chart reviewed and patient has used CGM device in the past. Order sent to pharmacy per [place] guidelines, may require PA documented in this encounter [facility] 11-11-2023 Evaluation + Plan note Associated Problem(s): Hyponatremia Recheck BMP today [facility] 11-11-2023 Evaluation + Plan note Associated Problem(s): Other cirrhosis of liver (HCC) Follow-up with gastroenterology [facility] 11-11-2023 Miscellaneous Notes Associated Problem(s): Hyponatremia Recheck [...] hematology as directed. documented in this encounter [facility] 11-11-2023 Evaluation + Plan note Associated Problem(s): [...] units. Continue to check glucose before meals [facility] 11-11-2023 Evaluation + Plan note Associated Problem(s): Pancytopenia (HCC) Follow-up with hematology as directed. [facility] 11-11-2023 History of Present illness Narrative Patient [...] scheduled, as directed pending test results. SUBJECTIVE/OBJECTIVE: HPI - Melanie Carey (: 1965) [...] for low blood sugar. 10/14/23 10/13/24 Yes Kassi BridenthalCHELON - [place]LLIE HumuLIN R U-500 KWIKPEN 500 UNIT/ML CONCENTRATED injection Inject 20 Units under the skin in the morning and 20 Units in the evening. Inject before meals. 10/12/23 11/11/23 Yes NCIOLE Gallegos CNP hydrOXYzine HCl (Atarax) 25 MG tablet Take 1 tablet (25 mg) by mouth every 8 hours as needed for anxiety. 08/26/23 Yes Kassi BridenthalCHELON - ACCOUNT EXECUTIVE [employer] labetalol (Normodyne) 100 MG tablet Take 1 tablet (100 mg) by mouth in the morning and 1 tablet (100 mg) in the evening. 08/26/23 Yes Kassi Hortensiaal PRESCHOOL ADVISER - ACCOUNT EXECUTIVE [employer] metFORMIN (Glucophage) 1000 MG tablet Take 1 tablet (1,000 mg) by mouth in the morning and 1 tablet (1,000 mg) in the evening. Take with meals. 10/13/23 Yes Kassi Bridenthal PRESCHOOL ADVISER - ACCOUNT EXECUTIVE [employer]RI[employer] Unifine Pentips 31G X 8 MM misc Use as directed with insulin pen 08/26/23 Yes Kassi Katherineenthal PRESCHOOL ADVISER - ACCOUNT EXECUTIVE [employer]RI[employer] predniSONE (Deltasone) 20 MG tablet 10/01/23 11/11/23 [...] 11/11/2023 1:53 PM documented in this encounter [facility] 11-11-2023 Instructions NICOLE Easley CNP - 11/11/2023 7:20 AM EDT Give insulin only before breakfast and dinner U500 20 U before breakfast and 20 U before dinner, if glucose is >200 ok to give 30 U No more than 30 units of the U500 at a time. documented in this encounter [facility] 10-13-2023 Telephone encounter Note Per Dr. Juan, pt to start b12 weekly x4 then monthly. [facility] 10-13-[address] Juan, pt to start b12 weekly x4 then monthly. documented in this encounter [facility] 10-13-2023 History of Present illness Narrative [facility] [address] [facility] [address] [facility] [address] Dept: [phone] Dept Loc: [phone] Patient ID: Raiza Carey is a 58 y.o. female. Referring Physician: Dr. Ricketts Primary Care Provider: Gio Ricketts MD Referral Request: low plt . [...] for pancytopenia . US abdomin completed . [place] the same . Fatigue persisted . Hypoglycemia [...] Father prostate High Blood Pressure Father Other ([id number]) Sister TBI Depression Mother Substance Abuse Brother Heart disease Mother Other ([id number]) Mother Depression Brother Social History Socioeconomic History [...] notes/ancillary test results as well as with qlji-hd-vxkf patient care, performing a medically appropriate examination, counseling & educating the patient/family/caregiver, ordering applicable medications/tests/procedures and completing required clinical documentation on the day of encounter. documented in this encounter [facility] 10-13-2023 Telephone encounter Note Reviewed chart. Refill appropriate. RX sent. [facility] 10-13-2023 Miscellaneous Notes Reviewed chart. Refill appropriate. RX sent. Prescription Request: Last medication check: not found Last physical exam: 08/26/23 Next scheduled appointment: 11/25/23 Last date of refill on this medication: 08/26/23 documented in this encounter [facility] 10-13-2023 Telephone encounter Note Prescription Request: Last medication check: not found Last physical exam: 08/26/23 Next scheduled appointment: 11/25/23 Last date of refill on this medication: 08/26/23 [facility] 10-12-2023 History of Present illness [...] original note were not included. PHYSICAL THERAPY [facility] Name/MRN: Raiza Carey ([id number]) Date: 10/12/2023 PT evaluation orders received and chart review completed. Pt completed OT evaluation this AM and demo mobility independently with no device and completed stairs with no difficulty. Pt has no acute PT needs. Will discharge from caseload. Jennifer Friedman PT Images from the original note were not included. 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 Therapy Time Individual Co-treatment Time In 28 Time Out 0944 Minutes 16 Gurpreet Lamb OT Patient's Occupational Therapy Plan of Care supervision is transferred to a [facility] Occupational Therapist. Goals and/or treatment plan was established in collaboration with patient/family/other representatives. documented in this encounter [facility] 10-12-2023 Hospital course Narrative Images from the original note were not included. Hospitalist Discharge Summary Melanie Carey : 1965 Admit date: 10/11/2023 Discharge date: 10/12/2023 Admitting Physician: Philippe Jones MD Primary Care Physician: Gio Ricketts MD Visit Status: Observation Code Status: [...] # HLD # GERD # Thrombocytopenia # DNONA # Morbid obesity # Depression, anxiety Past [...] Your Medications These medications were sent to [place] [id number], [place] [address] HumuLIN R U-500 KWIKPEN 500 UNIT/ML CONCENTRATED injection Recommended Follow-up: No follow-up provider specified. Complexity of Follow up: [] Moderate Complexity: follow up within 7-14 calendar days (05733) [x] Severe Complexity: follow up within 7 calendar days (00608) Follow up Testing, Pending results or Referrals [...] frame. Signed: Al Jones MD [facility] of [facility] 10/12/2023, 10:20 PM documented in this encounter [facility] 10-12-2023 Emergency department Note Pt rounded on at this time. Pt resting in bed. No signs of distress noted. Casandra Donald RN 10/12/23 2767 [facility] 10-12-2023 Emergency department Note Pt rounded on at this time. Pt resting in bed. No signs of distress noted. Casandra Donald RN 10/12/23 7294 Meal tray ordered for patient at this time. Casandra Donald RN 10/12/23 0841 Provider at bedside. Casandra Donald RN 10/12/23 5704 Pt updated on plan of care at [...] Father prostate High Blood Pressure Father Other ([id number]) Sister TBI Depression Mother Substance Abuse Brother Heart disease Mother Other ([id number]) Mother Depression Brother SOCIAL HISTORY Social History [...] Follows commands Sundeep Coma Scale Score: 15 NIH Stroke Scale [...] 9. Best Language: No Aphasia 10. Dysarthria: Wcdk-oz-Ulddafcv Dysarthria 11. Extinction and Inattention: No Abnormality [...] 54 (*) Narrative: Performed by: [facility], [address] [place] [id number] CLIA ID: [id number] POCT GLUCOSE METER UNSOLICITED RESULTS - Abnormal Glucose 129 (*) Narrative: Performed by: [facility], [address] [facility] [address] CLIA ID: [id number] POCT GLUCOSE METER UNSOLICITED RESULTS - Normal Glucose 80 Narrative: Performed by: [facility], [address] [facility] [address] CLIA ID: [id number] CORTISOL POCT GLUCOSE METER POCT GLUCOSE METER [...] Medicine Provider Jeronimo Calero MD Resident 10/11/23 0791 Pt arrives via [private vehicle for concern for hypoglycemia. states it was 38. BG upon arrival 79. Pt lethargic and responding to pain upon arrival. Not able to respond to questions. Dr Max bedside. Pt clammy and has redness to face upon arrival documented in this encounter [facility] 10-12-2023 Emergency department Note Meal tray ordered for patient at this time. Casandra Donald RN 10/12/23 1224 [facility] 10-12-2023 Emergency department Note Provider at bedside. Casandra Donald RN 10/12/23 1208 [facility] 10-12-2023 Emergency department Note Pt updated on plan of care at this time. Pt resting in bed. No signs of distress noted. Casandra Donald RN 10/12/23 1051 [facility] 10-12-2023 Emergency department Note This RN offered to place patient in hospital bed at this time. Pt denies hospital bed at this time and states her ER bed is fine for now. Casandra Donald RN 10/12/23 1004 [facility] 10-12-2023 Emergency department Note PT/ OT at bedside. Casandra Donald RN 10/12/23 0935 [facility] 10-12-2023 Emergency department Note Pt provided meal tray. Casandra Donald RN 10/12/23 0815 [facility] 10-12-2023 Consult note Associated Order (s): IP CONSULT TO ENDOCRINOLOGY Department of Internal Medicine Division of Endocrinology, Diabetes, & Metabolism Endocrinology Note Patient Name: Melanie Carey : 1965 AGE: 58 y.o. Room/Bed: Admission Date: 10/11/2023 Visit Date: 10/12/2023 Reason for Endocrine Consult: Symptomatic hypoglycemia/on insulin - DM Provider/Team Requesting Consult: Dr. Flannery PCP: Gio Ricketts MD Outpt Public Affairs Specialist: No ASSESSMENT: Type II DM with hypoglycemia, [...] CHOLHDLRATIO 4 01/15/2020 No results found for: [id number] No results found for: TSH, G4SIUXG, Z7FSPOH, THYROIDAB Radiology reportsas per the Radiologist Radiology: POCT glucose meter Result Date: 10/12/2023 Performed by: [facility], [address] [place] [address] [id number] CLIA ID: [id number] ECG 12 lead Sinus rhythm with normal rate, intervals and QRS duration. No acute ischemic changes. Nonspecific INTRAVENTRICULAR CONDUCTION DELAY, similar to prior No acute ischemic changes Similar to previous EKG Electronically Signed On 10-12-2023 04:24:23 EDT by Ray Ortiz POCT glucose meter Result Date: 10/12/2023 Performed by: [facility], [address] [place] [address] 30422 CLIA ID: [id number] POCT glucose meter Result Date: 10/12/2023 Performed by: [facility], [address] [place] [address] 79859 CLIA ID: [id number] POCT glucose meter Result Date: 10/12/2023 Performed by: [facility], [address] [place] [address] 58292 CLIA ID: [id number] POCT glucose meter Result Date: 10/11/2023 Performed by: [facility], [address] [place] [address] 89856 CLIA ID: [id number] POCT glucose meter Result Date: 10/11/2023 Performed by: [facility], [address] [place] [address] 25439 CLIA ID: [id number] POCT glucose meter Result Date: 10/11/2023 Performed by: [facility], [address] [place] [address] 33215 CLIA ID: [id number] CT head wo IV contrast Result Date: 10/11/2023 Patient Name: MELANIE TOVAR : 1965 [facility]#: [id number] Exam Date/Time: 10/11/2023 20:59 Procedure: CT HEAD [...] glucose meter Result Date: 10/11/2023 Performed by: [facility], [address] [place] [address] 28719 CLIA ID: [id number] History/Other: Past Medical History: Past Medical History: [...] Father prostate High Blood Pressure Father Other ([id number]) Sister TBI Depression Mother Substance Abuse Brother Heart disease Mother Other ([id number]) Mother Depression Brother Social History: Social History [...] state/prognosis on the date of this note. [facility] 10-12-2023 Consult note Associated Order (s): IP CONSULT TO ENDOCRINOLOGY Department of Internal Medicine Division of Endocrinology, Diabetes, & Metabolism Endocrinology Note Patient Name: Melanie Carey : 1965 AGE: 58 y.o. Room/Bed: Admission Date: 10/11/2023 Visit Date: 10/12/2023 Reason for Endocrine Consult: Symptomatic hypoglycemia/on insulin - DM Provider/Team Requesting Consult: Dr. Flannery PCP: Gio Ricketts MD Outpt Public Affairs Specialist: No ASSESSMENT: Type II DM with hypoglycemia, [...] 50 mL/hr, Last Rate: 50 mL/hr (10/12/23 8235) PRN Meds:PRN medications: acetaminophen OR acetaminophen, albuterol, [...] CHOLHDLRATIO 4 01/15/2020 No results found for: [id number] No results found for: TSH, G5VJGQS, H3KIDVS, THYROIDAB Radiology reportsas per the Radiologist Radiology: POCT glucose meter Result Date: 10/12/2023 Performed by: [facility], [address] [place] [address] 42966 CLIA ID: [id number] ECG 12 lead Sinus rhythm with normal rate, intervals and QRS duration. No acute ischemic changes. Nonspecific INTRAVENTRICULAR CONDUCTION DELAY, similar to prior No acute ischemic changes Similar to previous EKG Electronically Signed On 10-12-2023 04:24:23 EDT by Ray Ortiz POCT glucose meter Result Date: 10/12/2023 Performed by: [facility] [employer], [address] [place] [address] 62534 CLIA ID: [id number] POCT glucose meter Result Date: 10/12/2023 Performed by: [facility], [address] [place] [address] 55764 CLIA ID: [id number] POCT glucose meter Result Date: 10/12/2023 Performed by: [facility], [address] [place] [address] 90959 CLIA ID: [id number] POCT glucose meter Result Date: 10/11/2023 Performed by: [facility], [address] [place] [address] 67169 CLIA ID: [id number] POCT glucose meter Result Date: 10/11/2023 Performed by: [facility], [address] [place] [address] 58927 CLIA ID: [id number] POCT glucose meter Result Date: 10/11/2023 Performed by: [facility], [address] [place] [address] 34532 CLIA ID: [id number] CT head wo IV contrast Result Date: 10/11/2023 Patient Name: [facility] : 1965 [id number] Exam Date/Time: 10/11/2023 20:59 Procedure: CT HEAD [...] glucose meter Result Date: 10/11/2023 Performed by: [employer], [address] [place] [address] 50081 CLIA ID: [id number] History/Other: Past Medical History: Past Medical History: [...] Father prostate High Blood Pressure Father Other ([id number]) Sister TBI Depression Mother Substance Abuse Brother Heart disease Mother Other ([id number]) Mother Depression Brother Social History: Social History [...] of this note. documented in this encounter [facility] 10-12-2023 Emergency department Note Meal tray ordered for patient at this time. Casandra Donald RN 10/12/23 0750 [facility] 10-11-2023 History and physical note Images from the original note were not included. Attending History and Physical Admit Date: 10/11/2023 PCP: Gio Ricketts MD CHIEF COMPLAINT: altered mental status/hypoglycemia [...] at home. She does not see an Public Affairs Specialist. She denies cp, sob, cough, n/v, f/c. [...] Father prostate High Blood Pressure Father Other ([id number]) Sister TBI Depression Mother Substance Abuse Brother Heart disease Mother Other ([id number]) Mother Depression Brother Medications Prior to Admission: [...] Information Primary Emergency Contact: Oliver Carey Address: [address] [place] [address] Mobile Relation: Spouse [employer] Melanie Restrepo Anita : 1965 Primary Care Physician: Gio Ricketts MD The patient and/or family/surrogate voluntarily agreed to participate in ACP services. Patient s cognitive capacity: good Code Status: [X_] [FULL CODE - Continue all advanced life support: CPR,intubation,invasive procedures] [_] [DNR-CCA - DO NOT do CPR, intubation] [_] [DNR-NP - Comfort care only] [_] DNR form [...] JARVIS FLANNERY MD Division of Hospitalist Medicine [facility] Work Phone: 10-11-2023 History and physical note Images from the original note were not included. Attending History and Physical Admit Date: 10/11/2023 PCP: Gio Ricketts MD CHIEF COMPLAINT: altered mental status/hypoglycemia [...] at home. She does not see an Public Affairs Specialist. She denies cp, sob, cough, n/v, f/c. [...] Father prostate High Blood Pressure Father Other ([id number]) Sister TBI Depression Mother Substance Abuse Brother Heart disease Mother Other ([id number]) Mother Depression Brother Medications Prior to Admission: [...] Information Primary Emergency Contact: Oliver Carey Address: [address] [place] [address] [place] Relation: Spouse [employer] Melanie Carey : 1965 Primary Care Physician: Gio Ricketts MD The patient and/or family/surrogate voluntarily agreed to participate in ACP services. Patient s cognitive capacity: good Code Status: [X_] [FULL CODE - Continue all advanced life support: CPR,intubation,invasive procedures] [_] [DNR-CCA - DO NOT do CPR, intubation] [_] [DNR-NP - Comfort care only] [_] DNR form [...] JARVIS FLANNERY MD Division of Hospitalist Medicine [facility] documented in this encounter [facility] 10-11-2023 Emergency department Note BG 54. Dr Calero notified. Instructed to give D50 and increase D10 to 150ml/hr. Kati Godfrey RN 10/11/232117 [facility] 10-11-2023 Emergency department Note Pt states at breakfast she took Humulin R Kwikpen 180 units. Lunch she checked BG and it was in 200s so she took 60-80 units. States she did not eat after lunch and did not take any additional insulin Kati Godfrey RN 10/11/232024 [facility] 10-11-2023 Emergency department Note Pt much more responsive after D50. A&Ox4. Kati Godfrey RN 10/11/232021 [facility] 10-11-2023 Emergency department Triage note Pt arrives via [private vehicle for concern for hypoglycemia. states it was 38. BG upon arrival 79. Pt lethargic and responding to pain upon arrival. Not able to respond to questions. Dr Max bedside. Pt clammy and has redness to face upon arrival [facility] 10-11-2023 Physician Emergency department Note EMERGENCY DEPARTMENT [...] Father prostate High Blood Pressure Father Other ([id number]) Sister TBI Depression Mother Substance Abuse Brother Heart disease Mother Other ([id number]) Mother Depression Brother SOCIAL HISTORY Social History [...] Response: Oriented Best Motor Response: Follows commands Usndeep Coma Scale Score: 15 NIH Stroke Scale [...] 9. Best Language: No Aphasia 10. Dysarthria: Xonc-ge-Jyqdchxc Dysarthria 11. Extinction and Inattention: No Abnormality [...] Abnormal Glucose 54 (*) Narrative: [facility]formed by: [facility], [address] [place] [address] 16264 CLIA ID: [id number] POCT GLUCOSE METER UNSOLICITED RESULTS - Abnormal Glucose 129 (*) Narrative: Performed by: [facility], [address] [place] [address] 12103 CLIA ID: [id number] POCT GLUCOSE METER UNSOLICITED RESULTS - Normal Glucose 80 Narrative: Performed by: [facility], [address] [place] [address] 87584 CLIA ID: [id number] CORTISOL POCT GLUCOSE METER POCT GLUCOSE METER POCT GLUCOSE METER All other labs were within normal range or not returned as of this dictation. EMERGENCY DEPARTMENT COURSE and DIFFERENTIAL DIAGNOSIS/MDM: Vitals: Vitals: 10/11/23 2016 10/11/23 2017 10/11/23211810/11/23 2149 BP: (!) 165/69 135/88 Pulse: 64 [...] lab work negative. ED Course as of 10/11/232244 Mon Oct 11, 20232131 CT head wo IV contrast [...] Emergency Medicine Provider Jeronimo Calero MD Resident 10/11/233 [facility] 09-22-2023 History of Present illness Narrative [facility] [address] [facility] [address] [facility] [address] Dept: [phone] Dept Loc: [phone] Patient ID: Raiza Carey is a 58 y.o. female. Referring Physician: Dr. Ricketts Primary Care Provider: Gio Ricketts MD Referral Request: low plt . [...] Father prostate High Blood Pressure Father Other ([id number]) Sister TBI Depression Mother Substance Abuse Brother Heart disease Mother Other ([id number]) Mother Depression Brother Social History Socioeconomic History [...] notes/ancillary test results as well as with jxdz-ql-mrdj patient care, performing a medically appropriate examination, counseling & educating the patient/family/caregiver, ordering applicable medications/tests/procedures and completing required clinical documentation on the day of encounter. documented in this encounter [facility] 09-22-2023 History of Present illness Narrative [facility] [address] [facility] [address] [facility] [address] Dept: [phone] Dept Loc: [phone] Patient ID: Raiza Carey is a 58 y.o. female. Referring Physician: Dr. Ricketts Primary Care Provider: Gio Ricketts MD Referral Request: low plt . [...] Father prostate High Blood Pressure Father Other ([id number]) Sister TBI Depression Mother Substance Abuse Brother Heart disease Mother Other ([id number]) Mother Depression Brother Social History Socioeconomic History [...] notes/ancillary test results as well as with pzzz-bz-seag patient care, performing a medically appropriate examination, counseling & educating the patient/family/caregiver, ordering applicable medications/tests/procedures and completing required clinical documentation on the day of encounter. documented in this encounter [facility] 09-22-2023 Miscellaneous Notes Addended by: AVA NUNEZ on: 09/30/2023 08:08 AM Modules accepted: Orders documented in this encounter [facility] 09-22-2023 Note Addended by: AVA NUNEZ on: 09/30/2023 08:08 AM Modules accepted: Orders [facility] 08-26-2023 Evaluation + Plan note Associated Problem(s): Lip lesion Recommend referral to dermatology for further evaluation. [facility] 08-26-2023 Miscellaneous Notes Associated Problem(s): Lip lesion Recommend referral to dermatology for further evaluation. Associated Problem(s): Urinary tract infection symptoms UA few leuks, blood. Send for culture. No antibiotic therapy indicated at this time. Associated Problem(s): Back strain Consistent with lumbar strain. No red flags. Associated Problem(s): Depression Stable. Previously seeing psychiatry in [place]. Continue Wellbutrin 300 mg daily, BuSpar 10 [...] this time. Previously seeing Dr Overton in [place]. Continue current medications. documented in this encounter [facility] 08-26-2023 Evaluation + Plan note Associated Problem(s): Urinary tract infection symptoms UA few leuks, blood. Send for culture. No antibiotic therapy indicated at this time. [facility] 08-26-2023 Evaluation + Plan note Associated Problem(s): Back strain Consistent with lumbar strain. No red flags. [facility] 08-26-2023 Evaluation + Plan note Associated Problem(s): Depression Stable. Previously seeing psychiatry in [place]. Continue Wellbutrin 300 mg daily, BuSpar 10 mg twice daily, hydroxyzine 25 mg every 8 hours. [facility] 08-26-2023 Evaluation + Plan note Associated Problem(s): Obstructive sleep apnea syndrome Continue CPAP [facility] 08-26-2023 Evaluation + Plan note Associated Problem(s): Chronic obstructive pulmonary disease (HCC) Symptoms controlled [facility] 08-26-2023 Evaluation + Plan note Associated Problem(s): Migraine without aura and without status migrainosus, not intractable Controlled. [facility] 08-26-2023 Evaluation + Plan note Associated Problem(s): Hyperlipidemia LDL goal <70 Check lipids today, currently not on meds, consider starting statin [facility] 08-26-2023 Evaluation + Plan note Associated Problem(s): Essential hypertension Controlled. Continue labetolol 100 mg twice daily, consider starting ARB, does not tolerate CLAUDY inhibitors [facility] 08-26-2023 Evaluation + Plan note Associated Problem(s): Gastroesophageal reflux disease without esophagitis Controlled. Takes prilosec OTC. [facility] 08-26-2023 Evaluation + Plan note Associated Problem(s): Lymphopenia Repeat CBC, needs to follow up with hematology [facility] 08-26-2023 Evaluation + Plan note Associated Problem(s): Other cirrhosis of liver (HCC) Follow up with gastroenterology. Check cmp today [facility] 08-26-2023 Evaluation + Plan note Associated Problem(s): Anxiety Controlled. Doing well on current medication and we will take over manage at this time. Previously seeing Dr Overton in [place]. Continue current medications. [facility] 08-26-2023 History of Present illness Narrative Patient [...] off, verified patient information, then given to [employer] lab. Images from the original note were [...] tablet (100 mg) in the evening., Starting [facility] 08/26/2023, Normal 5. Recurrent major depressive disorder, in partial remission (HCC) Assessment & Plan: Stable. Previously seeing psychiatry in [place]. Continue Wellbutrin 300 mg daily, BuSpar 10 mg twice daily, hydroxyzine 25 mg every 8 hours. 6. Anxiety Assessment & Plan: Controlled. Doing well on current medication and we will take over manage at this time. Previously seeing Dr Overton in [place]. Continue current medications. Orders: - buPROPion XL (Wellbutrin XL) 300 MG 24 hr tablet; Take 1 tablet (300 mg) by mouth daily. Do not crush, chew, or split., Starting [facility] 08/26/2023, Normal - busPIRone (Buspar) 10 MG tablet; Take 1 tablet (10 mg) by mouth 2 times daily., Starting [facility] 08/26/2023, Normal - hydrOXYzine HCl (Atarax) 25 MG tablet; Take 1 tablet (25 mg) by mouth every 8 hours as needed for anxiety., Starting [facility] 08/26/2023, Normal 7. Lymphopenia Assessment & Plan: Repeat CBC, needs to follow up with hematology Orders: - CBC 8. Hyperlipidemia LDL goal <70 Assessment & Plan: Check lipids today, currently not on meds, consider starting statin Orders: - Lipid panel 9. Encounter for screening mammogram for malignant neoplasm of breast - Bilateral screening mammogram with tomosynthesis 10. Colon cancer screening - [facility] Gastroenterology 11. Urinary tract infection symptoms Assessment & Plan: UA few leuks, blood. Send for culture. No antibiotic therapy indicated at this time. Orders: - POCT urinalysis dipstick manually resulted - Urine culture (clean catch) 12. Other cirrhosis of liver (HCC) Assessment & Plan: Follow up with gastroenterology. Check cmp today Orders: - [facility] Gastroenterology 13. Thrombocytopenia (HCC) 14. Chronic bronchitis, unspecified chronic bronchitis type (HCC) Assessment & Plan: Symptoms controlled 15. Gastroesophageal reflux disease without esophagitis Assessment & Plan: Controlled. Takes prilosec OTC. 16. Migraine without aura and without status migrainosus, not intractable Assessment & Plan: Controlled. 17. Obstructive sleep apnea syndrome Assessment & Plan: Continue CPAP Follow up for 3 month [facility]. SUBJECTIVE/OBJECTIVE: HPI - Melanie Carey (: [...] 08/26/2023 4:14 PM documented in this encounter [facility] 05-16-2023 Emergency department Note EMERGENCY DEPARTMENT ENCOUNTER [...] pain. Patient states that she was at [employer] this morning and been doing fine and [...] Father prostate High Blood Pressure Father Other ([id number]) Sister TBI Depression Mother Substance Abuse Brother Heart disease Mother Other ([id number]) Mother Depression Brother SOCIAL HISTORY Social History [...] presyncopal event while she was sitting at [employer] when she got really hot. Her symptoms [...] discharged. I Mariana Snow MD am the child welfare consultant of record. FINAL IMPRESSION No diagnosis found. [...] Emergency Medicine Provider Mariana Snow MD 05/16/23 3339 Emergency Department Encounter Location: [facility] ED Patient: Raiza Carey : 1965 Date [...] 412 ms QTC Interval 434 ms P [place] 57 degrees QRS [place] -62 degrees T Wave [place] [address] Interval 187 ms XR chest 1 view [...] buspar, metformin, labetolol) documented in this encounter [facility] 05-16-2023 Emergency department Triage note Pt states she was off all of her medication due to no insurance since january. Started taking everything again on Wednesday (wellbutrin, buspar, metformin, labetolol) [facility] 05-16-2023 Physician Emergency department Note EMERGENCY DEPARTMENT [...] pain. Patient states that she was at [employer] this morning and been doing fine and [...] Father prostate High Blood Pressure Father Other ([id number]) Sister TBI Depression Mother Substance Abuse Brother Heart disease Mother Other ([id number]) Mother Depression Brother SOCIAL HISTORY Social History [...] presyncopal event while she was sitting at [employer] when she got really hot. Her symptoms [...] discharged. I Mariana Snow MD am the child welfare consultant of record. FINAL IMPRESSION No diagnosis found. [...] Emergency Medicine Provider Mariana Snow MD 05/16/23 2606 [employer] Phone: 05-16-2023 Physician Emergency department Note Emergency Department Encounter Location: [facility] ED Patient: Raiza Carey : 1965 Date [...] 412 ms QTC Interval 434 ms P [place] 57 degrees QRS [place] -62 degrees T Wave [place] [address] Interval 187 ms XR chest 1 view [...] 05/16/23 1632 Eder Phillips MD 05/16/23 1632 [facility] 03-15-2023 Hospital Discharge instructions Yogesh Dodson MD [...] through Care Everywhere.Cervical Muscle Strain Discharge Instructions ([place]uan)Headache, Adult ED ([place]uan)documented in this encounter [facility] 03-15-2023 Emergency department Note I did not participate in the care of this patient. HERMES James 03/15/23 1032 Emergency Department Encounter [facility] ED Patient: Melanie Carey : 1965 Date [...] bilateral lower extremities including hip flexion No hyxqra-kc-goer dysmetria Sensation intact and symmetrical bilateral upper [...] for clarification. Yogesh Dodson MD [employer] Yogesh Dodson MD 03/15/23 0246 documented in this encounter [facility] 03-15-2023 Physician Emergency department Note I did not participate in the care of this patient. HERMES James 03/15/23 1032 [employer] Work Phone: 03-15-2023 Physician Emergency department Note Emergency Department Encounter [facility] Patient: Melanie Carey : 1965 Date [...] bilateral lower extremities including hip flexion No fsvkch-pf-zqdm dysmetria Sensation intact and symmetrical bilateral upper [...] dictating provider for clarification. Yogesh Dodson MD [facility] Yogesh Dodson MD 03/15/23 1609 [facility] 02-20-2023 Hospital Discharge instructions Nae Mobley NP [...] Blood Sugar from the Drugs You Take ([place]icaraguan)Diabetic Meal Planning ([place]uan)Diabetes and Diet ([place]uan)documented in this encounter [facility] 02-20-2023 Plan of care note The patient [...] Recommendations to address these barriers include NA. [facility] 02-20-2023 Miscellaneous Notes The patient is Moderately [...] does receive free. Did provide her with [employer] list of insulin prices. She states it has been forever that she has been on two different types of insulin. She was wondering if [facility] could provide her insulin for free. Did [...] review. There is documentation from Sarah Mosher [facility] who has been assisting patient with medicaid and med resources. The patient informed me she is in the process of working on Medicaid with [facility]. She does see Dr. Ricketts under [facility]. In regrads to her Insulin, she does get Humulin for free and does have the medication at home. She is working with Dr. Ricketts's Office on getting the Jardiance, she has submitted for PAP but she needs to get her financial documents in to the Drug restaurant area manager. The patient also is prescribed Wellbutrin and [...] states she is unable to afford antidiabetics, SOLAR LAB TECHNICIAN speaking with patient. Awaiting Endocrine Cons to determine status. TCC will continue to follow. documented in this encounter [facility] 02-20-2023 Note Formatting of this n ote might be different from the original. Was notified by nursing staff that patient is concerned about affording her insulin at discharge. She does have humulin R at home that she does receive free. Did provide her with [employer] list of insulin prices. She states it has been forever that she has been on two different types of insulin. She was wondering if [facility] could provide her insulin for free. Did [...] endocrinology regarding home going insulin recommendations. . [facility] 02-20-2023 Note Formatting of this n ote might be different from the original. Was notified by nursing staff that patient is concerned about affording her insulin at discharge. She does have humulin R at home that she does receive free. Did provide her with [employer] list of insulin prices. She states it has been forever that she has been on two different types of insulin. She was wondering if [facility] could provide her insulin for free. Did [...] endocrinology regarding home going insulin recommendations. . [facility] 02-20-2023 History of Present illness Narrative Nutrition rescreen complete. Pt assigned a level one for nutrition care. documented in this encounter [facility] 02-19-2023 Note Formatting of this n ote might be different from the original. S/W, follow up Lengthy conversation with patient in room regarding her uninsured status and also medication needs. I did chart review. There is documentation from Sarah Mosher [facility] who has been assisting patient with medicaid and med resources. The patient informed me she is in the process of working on Medicaid with [facility]. She does see Dr. Ricketts under [facility]. In regrads to her Insulin, she does get Humulin for free and does have the medication at home. She is working with Dr. Ricketts's Office on getting the Jardiance, she has submitted for PAP but she needs to get her financial documents in to the Drug restaurant area manager. The patient also is prescribed Wellbutrin and Buspar. She does note she is able to afford the Buspr ($4 at [facility]) and Wellbutrin ($18 at [facility]) I did supply the patient with another Jardiance application for good measure if needed. If medication changes occur, suggest the most economical avenue. The patient at this time has all meds needed. [facility] 02-19-2023 Note Formatting of this n ote might be different from the original. S/W, follow up Lengthy conversation with patient in room regarding her uninsured status and also medication needs. I did chart review. There is documentation from Sarah Mosher [facility] DIRECTOR EPIDEMIOLOGY who has been assisting patient with medicaid and med resources. The patient informed me she is in the process of working on Medicaid with [facility]. She does see Dr. Ricketts under [facility]. In regrads to her Insulin, she does get Humulin for free and does have the medication at home. She is working with Dr. Ricketts's Office on getting the Jardiance, she has submitted for PAP but she needs to get her financial documents in to the Drug restaurant area manager. The patient also is prescribed Wellbutrin and Buspar. She does note she is able to afford the Buspr ($4 at [facility]) and Wellbutrin ($18 at [facility]) I did supply the patient with another Jardiance application for good measure if needed. If medication changes occur, suggest the most economical avenue. The patient at this time has all meds needed. [facility] 02-19-2023 Note Formatting of this n ote might be different from the original. Patient under Observation status in CDU 2 for hypoglycemia. Patient states she is unable to afford antidiabetics, SOLAR LAB TECHNICIAN speaking with patient. Awaiting Endocrine Cons to determine status. TCC will continue to follow. [facility] 02-19-2023 Note Formatting of this n ote might be different from the original. Patient under Observation status in CDU 2 for hypoglycemia. Patient states she is unable to afford antidiabetics, SOLAR LAB TECHNICIAN speaking with patient. Awaiting Endocrine Cons to determine status. TCC will continue to follow. [facility] 02-19-2023 Consult note Associated Order (s): IP CONSULT TO ENDOCRINOLOGY Department of Internal Medicine Division of Endocrinology, Diabetes, & Metabolism Endocrinology Note Patient Name: Melanie Carey : 1965 AGE: 57 y.o. Room/Bed: [facility]/[address] Admission Date: 02/18/2023 Visit Date: 02/19/2023 Reason for Endocrine Consult: dm2 hypoglycemia Provider/Team Requesting Consult: Dr. Fay PCP: Gio Ricketts MD Outpt Public Affairs Specialist: Yes , suhas bhatt has not seen [...] or no other contraindication Outpt Follow Up-- Suhas bhatt SUBJECTIVE/HPI: CHIEF COMPLAINT: Chief Complaint Patient presents [...] CHOLHDLRATIO 4 01/15/2020 No results found for: [id number] No results found for: TSH, I2LCKVO, W3GQDUR, THYROIDAB Radiology reportsas per the Radiologist Radiology: [...] Father prostate High Blood Pressure Father Other ([id number]) Sister TBI Depression Mother Substance Abuse Brother Heart disease Mother Other ([id number]) Mother Depression Brother Social History: Social History [...] state/prognosis on the date of this note. [employer] Phone: 02-19-2023 Consult note Associated Order (s): IP CONSULT TO ENDOCRINOLOGY Department of Internal Medicine Division of Endocrinology, Diabetes, & Metabolism Endocrinology Note Patient Name: Melanie Carey : 1965 AGE: 57 y.o. Room/Bed: [facility] A Admission Date: 02/18/2023 Visit Date: 02/19/2023 Reason for Endocrine Consult: dm2 hypoglycemia Provider/Team Requesting Consult: Dr. Fay PCP: Gio Ricketts MD Outpt Public Affairs Specialist: Yes , [facility] end[facility] has not seen [...] Intake/Output Summary (Last 24 hours) at 02/19/2023 1597 Last data filed at 02/18/2023 2236 Gross [...] CHOLHDLRATIO 4 01/15/2020 No results found for: [id number] No results found for: TSH, J7LIJHY, F9YJAPT, THYROIDAB Radiology reportsas per the Radiologist Radiology: [...] Father prostate High Blood Pressure Father Other ([id number]) Sister TBI Depression Mother Substance Abuse Brother Heart disease Mother Other ([id number]) Mother Depression Brother Social History: Social History [...] of this note. documented in this encounter [facility] 02-19-2023 History and physical note Images from the original note were not included. CDU History and Physical Observation Date: 02/18/20232145 PCP: Gio Ricketts MD CHIEF COMPLAINT: Hypoglycemia Limitations to [...] Father prostate High Blood Pressure Father Other ([id number]) Sister TBI Depression Mother Substance Abuse Brother Heart disease Mother Other ([id number]) Mother Depression Brother Social History Socioeconomic History [...] mg 100 mg Oral BID Fernie Resendiz, PRESCHOOL ADVISER - ACCOUNT EXECUTIVE AGRIBUSINESS 100 mg at 02/19/23 0938 ondansetron ODT (Zofran-ODT) disintegrating tablet 4 mg 4 mg Oral q8h PRN Fernie Resendiz APRN - [place] Or ondansetron (Zofran) injection 4 mg 4 mg IntraVENous q6h PRN Fernie Resendiz, PRESCHOOL ADVISER - [place] polyethylene glycol (PEG) 3350 (Miralax) packet 17 g 17 g Oral Daily PRN Fernie Resendiz, PRESCHOOL ADVISER - ACCOUNT EXECUTIVE AGRIBUSINESS sodium chloride 0.9 % infusion 5-250 mL/hr IntraVENous PRN Fernie Resendiz, PRESCHOOL ADVISER - ACCOUNT EXECUTIVE AGRIBUSINESS sodium chloride 0.9% (NS) flush 5-40 mL 5-40 mL IntraVENous q12h Fernie Resendiz, PRESCHOOL ADVISER - ACCOUNT EXECUTIVE AGRIBUSINESS 10 mL at 02/18/23 2213 sodium chloride 0.9% (NS) flush 5-40 mL 5-40 mL IntraVENous PRN Fernie Resendiz, PRESCHOOL ADVISER - ACCOUNT EXECUTIVE AGRIBUSINESS Allergies Allergen Reactions Cat Hair Extract Anaphylaxis [...] Abnormal Glucose 60 (*) Narrative: Performed by: [facility], [address] [place] [address] CLIA ID: [id number] POCT GLUCOSE METER UNSOLICITED RESULTS - Abnormal Glucose 62 (*) Narrative: Performed by: [facility], [address] [place] [address] CLIA ID: [id number] POCT GLUCOSE METER UNSOLICITED RESULTS - Abnormal Glucose 122 (*) Narrative: Performed by: [facility], [address] [place] [address] CLIA ID: [id number] SARS-COV-2, FLU A/B, AND RSV COMBO - [...] In compliance with this authorization, please visit www.fda.gov/media/533461/download or www.fda.gov/media/756061/download to access the applicable information sheets. POCT GLUCOSE METER UNSOLICITED RESULTS - Normal Glucose 82 Narrative: Performed by: [facility], [address] [place] [address] CLIA ID: [id number] POCT GLUCOSE METER UNSOLICITED RESULTS - Normal Glucose 85 Narrative: Performed by: [facility], [address] [place] [address] CLIA ID: [id number] POCT GLUCOSE METER UNSOLICITED RESULTS - Normal Glucose 82 Narrative: Performed by: [facility], [address] [place] [address] CLIA ID: [id number] POCT GLUCOSE METER UNSOLICITED RESULTS - Normal Glucose 78 Narrative: Performed by: [facility], [address] [place] [address] CLIA ID: [id number] POCT GLUCOSE METER POCT GLUCOSE METER POCT [...] workup. Independent review of ED workup: Initial sosiu-sd-xrti BG was 60. Shows WBC of 3, hemoglobin 12.2, no significant acute abnormalities. CMP shows normal electrolytes and kidney function, BG was low at 56, ALP 139 otherwise normal LFTs. COVID flu RSV swab negative. Latest POC BG at 0638 this morning is 78. External records reviewed: Patient seen here at [facility] 02/13/2023 for near syncope, at that time her BG was 198, she was ultimately discharged. Office visit 02/16/2023 with [facility] family medicine, per notes she had just [...] morbidity, The complexity of this case is: Low Benjamin Bates PA-C CDU Advanced Practice Provider [facility] (Comment: Please note this report has been produced using speech recognition software and may contain errors related to that system including errors in grammar, punctuation, and spelling, as well as words and phrases that may be inappropriate. If there are any questions or concerns please feel free to contact the dictating provider for clarification.) -[facility] [employer] Phone: 02-19-2023 History and physical note Images from the original note were not included. CDU History and Physical Observation Date: 02/18/20232145 PCP: Gio Ricketts MD CHIEF COMPLAINT: Hypoglycemia Limitations to [...] Father prostate High Blood Pressure Father Other ([id number]) Sister TBI Depression Mother Substance Abuse Brother Heart disease Mother Other ([id number]) Mother Depression Brother Social History Socioeconomic History [...] 4 mg Oral q8h PRN Fernie Resendiz, PRESCHOOL ADVISER - ACCOUNT EXECUTIVE AGRIBUSINESS Or ondansetron (Zofran) injection 4 mg 4 mg IntraVENous q6h PRN Fernie Resendiz, PRESCHOOL ADVISER - ACCOUNT EXECUTIVE AGRIBUSINESS polyethylene glycol (PEG) 3350 (Miralax) packet 17 g 17 g Oral Daily PRN Fernie Resendiz, PRESCHOOL ADVISER - ACCOUNT EXECUTIVE AGRIBUSINESS sodium chloride 0.9 % infusion 5-250 mL/hr IntraVENous PRN Fernie Resendiz, PRESCHOOL ADVISER - ACCOUNT EXECUTIVE AGRIBUSINESS sodium chloride 0.9% (NS) flush 5-40 mL 5-40 mL IntraVENous q12h Fernie Resendiz, PRESCHOOL ADVISER - ACCOUNT EXECUTIVE AGRIBUSINESS 10 mL at 02/18/23 2213 sodium chloride 0.9% (NS) flush 5-40 mL 5-40 mL IntraVENous PRN Fernie Resendiz, PRESCHOOL ADVISER - ACCOUNT EXECUTIVE AGRIBUSINESS Allergies Allergen Reactions Cat Hair Extract Anaphylaxis [...] Abnormal Glucose 60 (*) Narrative: Performed by: [facility], [address] [place] [address] CLIA ID: [id number] POCT GLUCOSE METER UNSOLICITED RESULTS - Abnormal Glucose 62 (*) Narrative: Performed by: [facility], [address] [place] [address] CLIA ID: [id number] POCT GLUCOSE METER UNSOLICITED RESULTS - Abnormal Glucose 122 (*) Narrative: Performed by: [facility], [address] [place] [address] CLIA ID: [id number] SARS-COV-2, FLU A/B, AND RSV COMBO - [...] In compliance with this authorization, please visit www.fda.gov/media/302882/download or www.fda.gov/media/536598/download to access the applicable information sheets. POCT GLUCOSE METER UNSOLICITED RESULTS - Normal Glucose 82 Narrative: Performed by: [facility], [address] [place] [address] CLIA ID: [id number] POCT GLUCOSE METER UNSOLICITED RESULTS - Normal Glucose 85 Narrative: Performed by: [facility], [address] [facility] [address] CLIA ID: [id number] POCT GLUCOSE METER UNSOLICITED RESULTS - Normal Glucose 82 Narrative: Performed by: [facility], [address] [facility] [address] CLIA ID: [id number] POCT GLUCOSE METER UNSOLICITED RESULTS - Normal Glucose 78 Narrative: Performed by: [facility], [address] [facility] [address] CLIA ID: [id number] POCT GLUCOSE METER POCT GLUCOSE METER POCT [...] workup. Independent review of ED workup: Initial dbdcr-vb-ffgv BG was 60. Shows WBC of 3, hemoglobin 12.2, no significant acute abnormalities. CMP shows normal electrolytes and kidney function, BG was low at 56, ALP 139 otherwise normal LFTs. COVID flu RSV swab negative. Latest POC BG at 0638 this morning is 78. External records reviewed: Patient seen here at [facility] 02/13/2023 for near syncope, at that time her BG was 198, she was ultimately discharged. Office visit 02/16/2023 with [facility], per notes she had just [...] Mau Bates PA-C CDU Advanced Practice Provider [facility] (Comment: Please note this report has been produced using speech recognition software and may contain errors related to that system including errors in grammar, punctuation, and spelling, as well as words and phrases that may be inappropriate. If there are any questions or concerns please feel free to contact the dictating provider for clarification.) documented in this encounter [facility] 02-19-2023 Emergency department Note Report called to Cristin Lambert RN in CDU Isabel Parson RN 02/19/23930 [facility] 02-19-2023 Emergency department Note Report called to [...] Father prostate High Blood Pressure Father Other ([id number]) Sister TBI Depression Mother Substance Abuse Brother Heart disease Mother Other (18299) Mother Depression Brother SOCIAL HISTORY Social History [...] Resp BP 02/18/23 1821 02/18/23 1821 02/18/23 18202/18/23 182 36.2 C (97.1 F) 68 20 (!) 165/92 SpO2 Temp Source Heart Rate Source Patient Position 02/18/23 1821 02/18/23 1821 02/18/23182002/19/23 021 97 % Oral Monitor Lying BP [...] Glucose 60 (*) Narrative: Performed by: [facility], [address] [facility] [address] CLIA ID: [id number] POCT GLUCOSE METER UNSOLICITED RESULTS - Abnormal Glucose 62 (*) Narrative: Performed by: [facility], [address] [facility], [facility] [address] CLIA ID: [id number] POCT GLUCOSE METER UNSOLICITED RESULTS - Abnormal Glucose 122 (*) Narrative: Performed by: [facility], [address] [facility], [facility] [address] CLIA ID: [id number] POCT GLUCOSE METER UNSOLICITED RESULTS - Abnormal Glucose 231 (*) Narrative: Performed by: [facility], [address] [facility], [facility] [address] CLIA ID: [id number] POCT GLUCOSE METER UNSOLICITED RESULTS - Abnormal Glucose 153 (*) Narrative: Performed by: [facility], [address] [place] [address], [facility] [address] CLIA ID: [id number] POCT GLUCOSE METER UNSOLICITED RESULTS - Abnormal Glucose 159 (*) Narrative: Performed by: [facility], [address] [place] [address], [facility] [address] CLIA ID: [id number] POCT GLUCOSE METER UNSOLICITED RESULTS - Abnormal Glucose 149 (*) Narrative: Performed by: [facility], [address] [place] [address] CLIA ID: [id number] POCT GLUCOSE METER UNSOLICITED RESULTS - Abnormal Glucose 170 (*) Narrative: Performed by: [facility], [address] [place] [address], [facility] [address] CLIA ID: [id number] POCT GLUCOSE METER UNSOLICITED RESULTS - Abnormal Glucose 152 (*) Narrative: Performed by: [facility], [address] [place] [address] CLIA ID: [id number] SARS-COV-2, FLU A/B, AND RSV COMBO - [...] In compliance with this authorization, please visit www.[facility].gov/media/077411/download or www.fda.gov/media/496554/download to access the applicable information sheets. POCT GLUCOSE METER UNSOLICITED RESULTS - Normal Glucose 82 Narrative: Performed by: [facility], [address] [place] [address] CLIA ID: [id number] POCT GLUCOSE METER UNSOLICITED RESULTS - Normal Glucose 85 Narrative: Performed by: [facility], [address] [place] [address] CLIA ID: [id number] POCT GLUCOSE METER UNSOLICITED RESULTS - Normal Glucose 82 Narrative: Performed by: [facility], [address] [place] [address] CLIA ID: [id number] POCT GLUCOSE METER UNSOLICITED RESULTS - Normal Glucose 78 Narrative: Performed by: [facility], [address] [place] [address] CLIA ID: [id number] POCT GLUCOSE METER POCT GLUCOSE METER POCT [...] and DIFFERENTIAL DIAGNOSIS/MDM: Vitals: Vitals: 02/19/23 1931 02/19/233 02/20/235 02/20/23 0758 BP: 137/75 137/75 132/85 132/85 [...] 300 mg (300 mg Oral Given 02/20/23 075) busPIRone (Buspar) tablet 10 mg (10 mg Oral Given 02/20/23 075) hydrOXYzine pamoate (Vistaril) capsule 25 mg (has no administration in time range) labetalol (Normodyne) tablet 100 mg (100 mg Oral Given 02/20/23 075) dextrose 10 % infusion (has no administration [...] % infusion (75 mL/hr IntraVENous New Bag 02/18/236) acetaminophen (Tylenol) tablet 1,000 mg (1,000 mg [...] has not taken either of these today. Wivtp-sc-vvgy glucose was done here in the emergency [...] condition. I Mariana Snow MD am the child welfare consultant of record. FINAL IMPRESSION 1. Hypoglycemia DISPOSITION Observation 02/19/2023 08:21:38 AM PATIENT REFERRED TO: Gio Ricketts MD [address] [facility], [address] [facility] [id number] Schedule an appointment as soon as possible for a visit in 1 week(s) Hospital follow up - hypoglycemia Al Pemberton MD [address] [facility] [address] [place] [id number] Schedule an appointment as soon as possible for a visit Please call to set up new patient appointment within the next 2 weeks [facility] [address] [facility] [address] Follow up As needed, If symptoms [...] Avina RN 02/19/23149 documented in this encounter [facility] 02-18-2023 Emergency department Note Bed: 06 Expected date: Expected time: Means of arrival: Comments: Main 1 Milka Avina RN 02/19/23149 [facility] 02-18-2023 Emergency department Triage note Pt states her blood sugar has been dropping throughout the day. 48 was the lowest. States she is unsure if she took her insulin or not [facility] 02-18-2023 Physician Emergency department Note EMERGENCY DEPARTMENT [...] Father prostate High Blood Pressure Father Other (75774) Sister TBI Depression Mother Substance Abuse Brother Heart disease Mother Other (71725) Mother Depression Brother SOCIAL HISTORY Social History [...] Response: Oriented Best Motor Response: Follows commands [place] Coma Scale Score: 15 PHYSICAL EXAM ED [...] Abnormal Glucose 60 (*) Narrative: Performed by: [facility], [address] [place] [address] CLIA ID: [id number] POCT GLUCOSE METER UNSOLICITED RESULTS - Abnormal Glucose 62 (*) Narrative: Performed by: [facility], [address] [place] [address] CLIA ID: [id number] POCT GLUCOSE METER UNSOLICITED RESULTS - Abnormal Glucose 122 (*) Narrative: Performed by: [facility], [address] [place] [address] CLIA ID: [id number] POCT GLUCOSE METER UNSOLICITED RESULTS - Abnormal Glucose 231 (*) Narrative: Performed by: [facility], [address] [place] [address] CLIA ID: [id number] POCT GLUCOSE METER UNSOLICITED RESULTS - Abnormal Glucose 153 (*) Narrative: Performed by: [facility], [address] [place] [address] CLIA ID: [id number] POCT GLUCOSE METER UNSOLICITED RESULTS - Abnormal Glucose 159 (*) Narrative: Performed by: [facility], [address] [place] [address] CLIA ID: [id number] POCT GLUCOSE METER UNSOLICITED RESULTS - Abnormal Glucose 149 (*) Narrative: Performed by: [facility], [address] [place] [address] CLIA ID: [id number] POCT GLUCOSE METER UNSOLICITED RESULTS - Abnormal Glucose 170 (*) Narrative: Performed by: [facility], [address] [place] [address] CLIA ID: [id number] POCT GLUCOSE METER UNSOLICITED RESULTS - Abnormal Glucose 152 (*) Narrative: Performed by: [facility], [address] [place] [address] CLIA ID: [id number] SARS-COV-2, FLU A/B, AND RSV COMBO - [...] In compliance with this authorization, please visit www.fda.gov/media/680771/download or www.fda.gov/media/719244/download to access the applicable information sheets. POCT GLUCOSE METER UNSOLICITED RESULTS - Normal Glucose 82 Narrative: Performed by: [facility], [address] [place] [address] CLIA ID: [id number] POCT GLUCOSE METER UNSOLICITED RESULTS - Normal Glucose 85 Narrative: Performed by: [facility], [address] [place] [address] CLIA ID: [id number] POCT GLUCOSE METER UNSOLICITED RESULTS - Normal Glucose 82 Narrative: Performed by: [facility], [address] [place] [address] CLIA ID: [id number] POCT GLUCOSE METER UNSOLICITED RESULTS - Normal Glucose 78 Narrative: Performed by: [facility], [address] [place] [address] CLIA ID: [id number] POCT GLUCOSE METER POCT GLUCOSE METER POCT [...] has not taken either of these today. Aszfo-yl-ilax glucose was done here in the emergency [...] condition. I Mariana Snow MD am the child welfare consultant of record. FINAL IMPRESSION 1. Hypoglycemia DISPOSITION Observation 02/19/2023 08:21:38 AM PATIENT REFERRED TO: Gio Ricketts MD [address] [facility] [facility] [address] Schedule an appointment as soon as possible for a visit in 1 week(s) Hospital follow up - hypoglycemia Al Pemberton MD [address] [facility] [address] [facility] [address] Schedule an appointment as soon as possible for a visit Please call to set up new patient appointment within the next 2 weeks [facility] [address] [facility] [address] Follow up As needed, If symptoms [...] Emergency Medicine Provider Mariana Snow MD 02/20/232019 [facility] 02-16-2023 Evaluation + Plan note Associated Problem(s): Lymphopenia Will repeat CBC with gela-smear next week. Refer to hematology also for further evaluation and treatment [facility] 02-16-2023 Miscellaneous Notes Associated Problem(s): Lymphopenia Will [...] unremarkable in ER documented in this encounter [facility] 02-16-2023 Evaluation + Plan note Associated Problem(s): Thrombocytopenia (HCC) Will recheck platelets next week along with CBC peripheral smear. Refer to hematology [facility] 02-16-2023 Evaluation + Plan note Associated Problem(s): Type 2 diabetes mellitus with polyneuropathy (HCC) Currently poorly controlled, likely secondary to not having all of her diabetic medications due to financial constraints. Patient recently restarted her insulin which should help. Continue to monitor glucose at home we will have her send readings to us in 1 week [facility] 02-16-2023 Evaluation + Plan note Associated Problem(s): Essential hypertension Controlled. Continue labetalol 100 mg twice daily [facility] 02-16-2023 Evaluation + Plan note Associated Problem(s): Acute pain of left knee Improving slightly. Patient to follow-up with sports medicine for further evaluation and treatment. Imaging was unremarkable in ER [facility] 02-16-2023 History of Present illness Narrative Images from the original note were not included. 02/16/2023 Melanie Restrepo Anita (: 1965) is a 57 y.o. female , Established patient, here for evaluation of the following chief complaint(s): Knee Pain (left), ER Follow-up, Dizziness, and Discuss Labs ASSESSMENT/PLAN: 1. Lymphopenia Assessment & Plan: Will repeat CBC with gela-smear next week. Refer to hematology also for further evaluation and treatment Orders: - CBC auto differential - Peripheral blood smear - [facility] Oncology 2. Thrombocytopenia (HCC) Assessment & Plan: Will recheck platelets next week along with CBC peripheral smear. Refer to hematology Orders: - CBC auto differential - [facility] Oncology 3. Type 2 diabetes mellitus with [...] days (around 02/22/2023). SUBJECTIVE/OBJECTIVE: HPI - Melanie Restrepo Anita (: 1965) is a 57 y.o. female [...] previously seen by hematology- was seeing [place]. Does not know what the diagnosis was. Would like to see a different specialist within [facility]. Recent labs also showed leukopenia -lymphopenia which [...] Patient not taking: Reported on 02/01/2023 12/09/22 Kassi Seymour APRN - ACCOUNT EXECUTIVE [employer] Review of Systems Constitutional: Negative for activity [...] 02/16/2023 4:30 PM documented in this encounter [facility] 02-13-2023 Emergency department Note To XR @1999 Deisi Ladd RN 02/13/232004 [facility] 02-13-2023 Emergency department Note To XR @1999 [...] arthritis. 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 While she was standing at the doorway [...] Father prostate High Blood Pressure Father Other ([id number]) Sister TBI Depression Mother Substance Abuse Brother Heart disease Mother Other ([id number]) Mother Depression Brother SOCIAL HISTORY Social History [...] Housing in the Last Year: No SCREENINGS [place] Coma Scale Best Eye Response: Spontaneous Best [...] Glucose 198 (*) Narrative: Performed by: [facility], [address] [place] [id number] CLIA ID: [id number] TROPONIN I - Normal TROPONIN I <0.012 [...] elevated. Ionized calcium is within normal limits. Uwcud-qt-obky blood glucose is 198. Patient states that [...] Discharge 02/13/2023 09:25:37 PM PATIENT REFERRED TO: Gio Ricketts MD [address] [place] [address], [address] [facility] [id number] Call in 2 days [facility] [address] [facility] [address] If symptoms worsen DISCHARGE MEDICATIONS: Discharge [...] MD 02/14/23 0037 documented in this encounter [facility] 02-13-2023 Physician Emergency department Note EMERGENCY DEPARTMENT [...] arthritis. 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 While she was standing at the doorway [...] Father prostate High Blood Pressure Father Other ([id number]) Sister TBI Depression Mother Substance Abuse Brother Heart disease Mother Other ([id number]) Mother Depression Brother SOCIAL HISTORY Social History [...] Housing in the Last Year: No SCREENINGS [place] Coma Scale Best Eye Response: Spontaneous Best Verbal Response: Oriented Best Motor Response: Follows commands [place] Coma Scale Score: 15 PHYSICAL EXAM ED [...] Physician EKG interpretation can be found in [facility] RADIOLOGY (Per Emergency Physician): Interpretation per the [...] Abnormal Glucose 198 (*) Narrative: Performed by: [facility], [address] [place] [id number] CLIA ID: [id number] TROPONIN I - Normal TROPONIN I <0.012 [...] elevated. Ionized calcium is within normal limits. Puafv-kn-wkgc blood glucose is 198. Patient states that [...] Discharge 02/13/2023 09:25:37 PM PATIENT REFERRED TO: Gio Ricketts MD [address] [place] [address], [address] [facility] [address] Call in 2 days [facility] [address] [facility] [address] If symptoms worsen DISCHARGE MEDICATIONS: Discharge [...] Emergency Medicine Provider Nelson Grady MD 02/14/2336 [facility] 02-06-2023 Emergency department Note Ice applied to left knee. Itzel Dela Cruz RN 02/06/232127 [facility] 02-06-2023 Emergency department Note Ice applied to [...] Father prostate High Blood Pressure Father Other ([id number]) Sister TBI Depression Mother Substance Abuse Brother Heart disease Mother Other ([id number]) Mother Depression Brother SOCIAL HISTORY Social History [...] Discharge 02/06/2023 09:52:46 PM PATIENT REFERRED TO: [facility] [address] [place] [phone] DISCHARGE MEDICATIONS: Discharge Medication List as of [...] light within reach. documented in this encounter [facility] 02-06-2023 Emergency department Triage note Patient to room 4 with c/o left knee pain for 2 days. Patient reports painful ambulation and painful with pressure. V/S obtained, call light within reach. [facility] 02-06-2023 Physician Emergency department Note EMERGENCY DEPARTMENT [...] Father prostate High Blood Pressure Father Other ([id number]) Sister TBI Depression Mother Substance Abuse Brother Heart disease Mother Other ([id number]) Mother Depression Brother SOCIAL HISTORY Social History [...] Discharge 02/06/2023 09:52:46 PM PATIENT REFERRED TO: [facility] [address] [place] [phone] DISCHARGE MEDICATIONS: Discharge Medication List as [...] Noyola DO 02/06/232151 Izabela Noyola DO 02/06/232217 [facility] 02-04-2023 Hospital Discharge instructions Jarvis Belcher MD - 02/04/2023 11:45 PM EDT Use the Augmentin twice a day for 10 days. Use the Lotrimin cream twice a day for 14 days. You can also use an lzsp-tmp-tgbxnbz antifungal powder. In addition keep this area clean and dry is much as possible. Call your doctor tomorrow to be seen in the next 1 to 4 days. The following attachments cannot be sent through Care Everywhere.Skin Abscess ([place]icaraguan)Fungal Skin Rash Discharge Instructions ([place]icaraguan)documented in this encounter [facility] 02-04-2023 Emergency department Note [facility] EMERGENCY DEPARTMENT ENCOUNTER Pt Name: Melanie [...] her vaginal area I had a female supervisor [place] it is actually in her skin fold. [...] Father prostate High Blood Pressure Father Other ([id number]) Sister TBI Depression Mother Substance Abuse Brother Heart disease Mother Other ([id number]) Mother Depression Brother SOCIAL HISTORY Social History [...] is regular. Lungs are clear. With female supervisor [place] examination of the skin fold of her [...] first dose orally here. Also Lotrimin ointment dcpf-ulo-svhkuoh twice a day for 14 days. Can also use antifungal qrky-hsi-txylupc powder keep the area clean and dry. [...] Discharge 02/04/2023 11:45:27 PM PATIENT REFERRED TO: Gio Ricketts MD [address] [place] [address], [address] [facility] [address] In 4 days DISCHARGE MEDICATIONS: New Prescriptions AMOXICILLIN-CLAVULANATE (AUGMENTIN) 875-125 MG TABLET Take 1 tablet by mouth in the morning and 1 tablet in the evening. Do all this for 10 days. CLOTRIMAZOLE (LOTRIMIN) 1 % CREAM Apply 1 Application topically 2 times daily for 14 days. Apply to affected area 2 times daily @[facility]([id number]:LAST:1)@ (Comment: Please notethis report has been produced [...] Attending Emergency Physician Jarvis Belcher MD 02/04/23 5023 documented in this encounter [facility] 02-04-2023 Physician Emergency department Note [facility] EMERGENCY DEPARTMENT ENCOUNTER Pt Name: Melanie [...] her vaginal area I had a female supervisor [place] it is actually in her skin fold. [...] Father prostate High Blood Pressure Father Other ([id number]) Sister TBI Depression Mother Substance Abuse Brother Heart disease Mother Other ([id number]) Mother Depression Brother SOCIAL HISTORY Social History [...] is regular. Lungs are clear. With female supervisor [place] examination of the skin fold of her [...] first dose orally here. Also Lotrimin ointment ocqj-tuc-ifbbtsp twice a day for 14 days. Can also use antifungal fcad-ema-rldbfgg powder keep the area clean and dry. [...] Discharge 02/04/2023 11:45:27 PM PATIENT REFERRED TO: Gio Ricketts MD [address] [place] [address], [address] [facility] [address] In 4 days DISCHARGE MEDICATIONS: New Prescriptions AMOXICILLIN-CLAVULANATE (AUGMENTIN) 875-125 MG TABLET Take 1 tablet by mouth in the morning and 1 tablet in the evening. Do all this for 10 days. CLOTRIMAZOLE (LOTRIMIN) 1 % CREAM Apply 1 Application topically 2 times daily for 14 days. Apply to affected area 2 times daily @[facility]([phone]:LAST:1)@ (Comment: Please notethis report has been produced [...] Attending Emergency Physician Jarvis Belcher MD 02/04/232346 [facility] 01-14-2023 Emergency department Note Pt called with no answer multiple times by [employer] and this ANTOINE Avina RN 01/14/232356 Milka Avina RN 01/14/232356 [facility] 01-14-2023 Emergency department Note Pt called with no answer multiple times by [employer] and this ANTOINE Avina RN 01/14/232356 Milka [...] Father prostate High Blood Pressure Father Other ([id number]) Sister TBI Depression Mother Substance Abuse Brother Heart disease Mother Other ([id number]) Mother Depression Brother SOCIAL HISTORY Social History [...] CNP 01/15/23 0108 documented in this encounter [facility] 01-14-2023 Physician Emergency department Note EMERGENCY DEPARTMENT [...] Arthritis Chest pain Depression Diabetic nephropathy ([facility]/HCC) (HCC) Elevated transaminase level Fatigue GERD [...] Father prostate High Blood Pressure Father Other ([id number]) Sister TBI Depression Mother Substance Abuse Brother Heart disease Mother Other ([id number]) Mother Depression Brother SOCIAL HISTORY Social History [...] DEPARTMENT COURSE and DIFFERENTIAL DIAGNOSIS/MDM: Vitals: Vitals: 01/14/233 Pulse: 80 Temp: 36 C (96.8 F) [...] Emergency Medicine Provider NICOLE Austin CNP 01/15/23107 T [facility] 12-09-2022 Evaluation + Plan note Associated Problem(s): Lip swelling Unsure if r/t herpes vs lisinopril. Swelling no worse at this time. No difficulty swallowing, no shortness of breath. Continue acyclovir. Do not take lisinopril. Monitor blood pressure at home. Send update In 2 days. Consider antibiotic if not improving d/t associated left sided cervical adenopathy (only if not improving) [facility] 12-09-2022 Evaluation + Plan note Associated Problem(s): Depression Stable. Managed by psych [facility] 12-09-2022 Evaluation + Plan note Associated Problem(s): Anxiety Stable. Managed by psych [facility] 12-09-2022 Miscellaneous Notes Associated Problem(s): Lip swelling [...] mg twice daily documented in this encounter [facility] 12-09-2022 Evaluation + Plan note Associated Problem(s): Hyperlipidemia LDL goal <70 Controlled. Not on medications currently.? [facility] 12-09-2022 Evaluation + Plan note Associated Problem(s): Essential hypertension Controlled. Continue labetalol 100 mg every 12 hours. [facility] 12-09-2022 Evaluation + Plan note Associated Problem(s): Chronic obstructive pulmonary disease (HCC) Controlled. Continue cpap [facility] 12-09-2022 Evaluation + Plan note Associated Problem(s): Type 2 diabetes mellitus with polyneuropathy (HCC) Controlled. Hemoglobin A1c 7.2 (10/2022), continue jardiance 25 mg daily, Humulin R U-500 3 times daily as prescribed. Metformin 1000 mg twice daily [facility] 12-09-2022 History of Present illness Narrative Images [...] eye--had a few months ago manjeet in [place], Dental--hasn't been she has dentures, Hep B--declines, [...] patient, previous primary care provider Ariel in [place], last seen 6 months by previous provider. Specialists/other providers? no Chief complaint(s): Establish Care, Health Maintenance (Hep C--declines, HIV--declines, Cervical--does not remember when the last pap was, Colon--last she thinks was in 2019-- Yaakov, Dm eye--had a few months ago manjeet in [place], Dental--hasn't been she has dentures, Hep B--declines, [...] Umbilical Hernia surgery in 10/2022- went well. [facility] Hot flashes at bedtime. Occasional Needs dexcom but needs possible new script- she states she has to check with [employer] insurance. Anxiety/depression- reports controlled. Dr. [facility]- [place]. [facility]- previous pharmacy. Past Medical History: [...] Father prostate High Blood Pressure Father Other ([id number]) Sister TBI Depression Mother Substance Abuse Brother Heart disease Mother Other ([id number]) Mother Depression Brother Social History Socioeconomic History [...] mg by mouth Nightly. Yes Historical Provider, [employer] 31G X [...] 12/09/2022 11:34 AM documented in this encounter [facility] 12-09-2022 Instructions NICOLE Easley CNP - 12/09/2022 11:20 AM EDT night or Wednesday early am with update of condition and blood pressure readings. No lisinopril for now. documented in this encounter [facility] 12-07-2022 Hospital Discharge instructions Catarino Arce DO - 12/07/2022 10:24 AM EDT Stop taking your lisinopril. You should never take an CLAUDY inhibitor again as you may experience similar or worse swelling each time you take them. Discussed with your PCP on Wednesday about additional blood pressure medication regimen. The following attachments cannot be sent through Care Everywhere.Angioedema Caused by CLAUDY Inhibitor Medicines ([place])Cold Sores ED ([place]icar[place]uan)documented in this encounter [facility] 12-07-2022 Emergency department Note EMERGENCY DEPARTMENT ENCOUNTER [...] otherwise acutely negative except as in the [place]. PAST MEDICAL HISTORY Past Medical History: Diagnosis [...] Father prostate High Blood Pressure Father Other ([id number]) Sister TBI Depression Mother Substance Abuse Brother Heart disease Mother Other ([id number]) Mother Depression Brother SOCIAL HISTORY Social History [...] DISPOSITION/PLAN dc PATIENT REFERRED TO: Al Ricketts [facility] [address] [address] Schedule an appointment as soon [...] awakening this a.m. documented in this encounter [facility] 12-07-2022 Emergency department Triage note L sided facial swelling upon awakening this a.m. [facility] 12-07-2022 Physician Emergency department Note EMERGENCY DEPARTMENT [...] otherwise acutely negative except as in the [place]. PAST MEDICAL HISTORY Past Medical History: Diagnosis [...] TUNNEL RELEASE CHOLECYSTECTOMY COLONOSCOPY 2012 ENDOMETRIAL ABLATION TONSILLECTOMY AND ADENOIDECTOMY (HISTORICAL) CURRENT [...] Father prostate High Blood Pressure Father Other ([id number]) Sister TBI Depression Mother Substance Abuse Brother Heart disease Mother Other ([id number]) Mother Depression Brother SOCIAL HISTORY Social History [...] DISPOSITION/PLAN dc PATIENT REFERRED TO: Al Ricketts [facility] [address] [address] Schedule an appointment as soon [...] Medicine Provider Catarino Arce DO 12/07/22 1139 [facility] Evaluation note No assessment inform ation available [facility] Work Phone: Evaluation note Diagnosis Onset Date Thrombocytopenia chronic [facility] Work Phone: Evaluation note* Diagnosis Onset Date Resolution Status Thrombocytopenia chronic [id number] acute History of tobacco use acute [facility] Work Phone: Evaluation note* Diagnosis Angioedema, [...] pain, unspecified chronicity [facility] Abscess- Primary Cellulitis and [...] Hypoglycemia Hypoglycemia, unspecified [facility] Diagnosis Strain of neck muscle, initial encounter- Primary [facility] Diagnosis Chest pain, unspecified type- Primary [facility]* Diagnosis Annual physical exam- [...] Diseases of lips [facility]* Diagnosis Annual physical exam- [...] Diseases of lips [facility]* Diagnosis Pancytopenia (HCC)- Primary [facility]* Diagnosis Pancytopenia (HCC)- Primary [facility] Diagnosis Pancytopenia (HCC) [facility]* Diagnosis Hypoglycemia- Primary Hypoglycemia, unspecified Hypoglycemia Hypoglycemia, unspecified Hypoglycemia, unspecified [facility]* Diagnosis Type 2 diabetes mellitus with polyneuropathy (HCC) Type II or unspecified type diabetes mellitus with neurological manifestations, not stated as uncontrolled [facility] Diagnosis Pancytopenia (HCC)- Primary [facility]* Diagnosis Pancytopenia (HCC)- Primary [facility]* Diagnosis 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 Type II or unspecified type diabetes mellitus with neurological manifestations, not stated as uncontrolled [facility] Diagnosis Hyponatremia- Primary Hyposmolality and/or hyponatremia Type 2 diabetes mellitus with polyneuropathy (HCC) Type II or unspecified type diabetes mellitus with neurological manifestations, not stated as uncontrolled Other cirrhosis of liver (HCC) Pancytopenia (HCC) [facility]* Diagnosis Type 2 diabetes mellitus with polyneuropathy (HCC) Type II or unspecified type diabetes mellitus with neurological manifestations, not stated as uncontrolled [facility]* Diagnosis Type 2 diabetes mellitus treated with insulin (CMS/HCC) (HCC)- Primary [facility]* Diagnosis Hypoglycemia- Primary Hypoglycemia, unspecified [facility]* Diagnosis Anxiety Anxiety state, unspecified Essential hypertension Unspecified essential hypertension Type 2 diabetes mellitus with polyneuropathy (HCC) Type II or unspecified type diabetes mellitus with neurological manifestations, not stated as uncontrolled [facility]* Diagnosis Acute nonintractable headache, unspecified headache type- Primary [facility]* Diagnosis Intertrigo- Primary Other specified erythematous condition [facility]* Diagnosis Anxiety Anxiety state, unspecified [facility]* Diagnosis Lip swelling- Primary Diseases of [...] stated as uncontrolled [facility]* Diagnosis Lip swelling- Primary [...] type (HCC)- Primary [facility] encounter [facility]* Diagnosis Lip swelling- Primary Diseases of [...] 2 diabetes mellitus with hyperglycemia, unspecified whether senior care insulin use (HCC) Other cirrhosis of liver [...] Inadequate material resources documented in this encounter [facility]* Diagnosis Lip swelling- Primary [...] 2 diabetes mellitus with hyperglycemia, unspecified whether senior care insulin use (HCC) Other cirrhosis of liver [...] 2 diabetes mellitus with hyperglycemia, unspecified whether exterminator insulin use (HCC) Type 2 diabetes mellitus with polyneuropathy (HCC) Type II or unspecified type diabetes mellitus with neurological manifestations, not stated as uncontrolled documented in this encounter [facility]* Diagnosis Lip swelling- Primary [...] 2 diabetes mellitus with hyperglycemia, unspecified whether senior care insulin use (HCC) Other cirrhosis of liver [...] 2 diabetes mellitus with hyperglycemia, unspecified whether exterminator insulin use (HCC) Other cirrhosis of liver [...] 2 diabetes mellitus with hyperglycemia, unspecified whether exterminator insulin use (HCC) [facility] Diagnosis Lip swelling- Primary [...] 2 diabetes mellitus with hyperglycemia, unspecified whether exterminator insulin use (HCC) Other cirrhosis of liver [...] 2 diabetes mellitus with hyperglycemia, unspecified whether senior care insulin use (HCC) Other cirrhosis of liver [...] 2 diabetes mellitus with hyperglycemia, unspecified whether senior care insulin use (HCC) Other cirrhosis of liver [...] 2 diabetes mellitus with hyperglycemia, unspecified whether senior care insulin use (HCC) Yeast dermatitis Class 3 severe obesity due to excess calories with serious comorbidity and body mass index (BMI) of 40.0 to 44.9 in adult (HCC) documented in this encounter [facility]* Diagnosis Lip swelling- Primary [...] 2 diabetes mellitus with hyperglycemia, unspecified whether exterminator insulin use (HCC) Other cirrhosis of liver (HCC) Chronic bronchitis, unspecified chronic bronchitis type (HCC) Current mild episode of major depressive disorder without prior episode (HCC) Class 3 severe obesity due to excess calories with serious comorbidity and body mass index (BMI) of 40.0 to 44.9 in adult Vitamin B 12 deficiency Other B-complex deficiencies [...] 2 diabetes mellitus with hyperglycemia, unspecified whether exterminator insulin use (HCC) Yeast dermatitis Class 3 severe obesity due to excess calories with serious comorbidity and body mass index (BMI) of 40.0 to 44.9 in adult Skin tag- Primary Unspecified hypertrophic and atrophic condition of skin S/P skin biopsy documented [facility]* Diagnosis Lip swelling- Primary [...] 2 diabetes mellitus with hyperglycemia, unspecified whether exterminator insulin use (HCC) Other cirrhosis of liver (HCC) Chronic bronchitis, unspecified chronic bronchitis type (HCC) Current mild episode of major depressive disorder without prior episode (HCC) Class 3 severe obesity due to excess calories with serious comorbidity and body mass index (BMI) of 40.0 to 44.9 in adult Vitamin B 12 deficiency Other B-complex deficiencies [...] 2 diabetes mellitus with hyperglycemia, unspecified whether senior care insulin use (HCC) Yeast dermatitis Class 3 severe obesity due to excess calories with serious comorbidity and body mass index (BMI) of 40.0 to 44.9 in adult Fall, initial encounter- Primary Contusion of lower back, initial encounter [facility] [...] 2 diabetes mellitus with hyperglycemia, unspecified whether exterminator insulin use (HCC) Other cirrhosis of liver (HCC) Chronic bronchitis, unspecified chronic bronchitis type (HCC) Current mild episode of major depressive disorder without prior episode (HCC) Class 3 severe obesity due to excess calories with serious comorbidity and body mass index (BMI) of 40.0 to 44.9 in adult Vitamin B 12 deficiency Other B-complex deficiencies [...] 2 diabetes mellitus with hyperglycemia, unspecified whether senior care insulin use (HCC) Yeast dermatitis Class 3 severe obesity due to excess calories with serious comorbidity and body mass index (BMI) of 40.0 to 44.9 in adult Type 2 diabetes mellitus with hyperglycemia, unspecified whether senior care insulin use (HCC) documented in [facility]* Diagnosis Lip swelling- Primary [...] 2 diabetes mellitus with hyperglycemia, unspecified whether exterminator insulin use (HCC)- Primary documented in this [...] 2 diabetes mellitus with hyperglycemia, unspecified whether exterminator insulin use (HCC) Other cirrhosis of liver (HCC) Chronic bronchitis, unspecified chronic bronchitis type (HCC) Current mild episode of major depressive disorder without prior episode (HCC) Class 3 severe obesity due to excess calories with serious comorbidity and body mass index (BMI) of 40.0 to 44.9 in adult Vitamin B 12 deficiency Other B-complex deficiencies [...] 2 diabetes mellitus with hyperglycemia, unspecified whether senior care insulin use (HCC) Yeast dermatitis Class 3 severe obesity due to excess calories with serious comorbidity and body mass index (BMI) of 40.0 to 44.9 in adult Dehydration- Primary [facility] Lip swelling- Primary Diseases of [...] 2 diabetes mellitus with hyperglycemia, unspecified whether senior care insulin use (HCC) Other cirrhosis of liver (HCC) Chronic bronchitis, unspecified chronic bronchitis type (HCC) Current mild episode of major depressive disorder without prior episode (HCC) Class 3 severe obesity due to excess calories with serious comorbidity and body mass index (BMI) of 40.0 to 44.9 in adult Vitamin B 12 deficiency Other B-complex deficiencies [...] 2 diabetes mellitus with hyperglycemia, unspecified whether senior care insulin use (HCC) Yeast dermatitis Class 3 severe obesity due to excess calories with serious comorbidity and body mass index (BMI) of 40.0 to 44.9 in adult Fall, initial encounter- Primary Acute midline low back pain without sciatica Contusion of sacrum, initial encounter documented in this encounter [facility] Discharge instructions Additional Instructions Your labs are [...] Make sure you are taking your daily aspirin.[facility] Work Phone: [facility] Dis[facility] instructions* Attachments The following attachments cannot be sent through Care Everywhere. * Near Fainting Discharge Instructions ([place]icar[place]uan) documented in this [facility] Discharge instructions* Attachments The following attachments cannot be sent through Care Everywhere. * Chest Pain Discharge Instructions ([place]uan) documented in this [facility] Discharge instructions* Attachments The following attachments cannot be sent through Care Everywhere. * Guide to Eating When You Have Diabetes ([place]icaraguan) documented in this [facility] Discharge instructions* Attachments The following attachments cannot be sent through Care Everywhere. * Intertrigo Discharge Instructions ([place]icaraguan) * Fluconazole, ADULT ([place]icaraguan) * Nystatin (Topical), ADULT ([place]icaraguan) documented in this [facility] Discharge instructions* Attachments The following attachments cannot be sent through Care Everywhere. * High Blood Sugar, Adult ED ([place]icar[place]uan) * Acute Kidney Injury ([place]) [facility]* Attachments The following attachments cannot be sent through Care Everywhere. * Coccyx Injury Discharge Instructions ([place]icaraguan) * Preventing Falls ED ([place]icaraguan) * Low Back Pain Discharge Instructions ([place]icaraguan) documented in this [facility] for referral (narrative)* Consultation (Routine) - Pending Review Specialty Diagnoses / Procedures Referred By Contac t Referred To Contact Sports Medicine Diagnoses Sprain of left knee, unspecified ligament, initial encounter Procedures CT OFFICE/OUTPATIENT [facility] 60-74 MINUTES Izabela Noyola DO [address] [place] [address] [facility] Sm [address] [place] [address] Referral ID Status Reason Start Date Expiration Date Visits Requested Visits Authorized [id number] Pending Review Specialty Services Required 02/06/2023 02/06/2024 1 1 [facility] for referral (narrative)* Consultation (Routine) - Pending Review Specialty Diagnoses / Procedures Referred By Contac t Referred To Contact Hematology and Oncology Diagnoses Lymphopenia Thrombocytopenia (HCC) Procedures CT OFFICE/OUTPATIENT [facility] 60-74 MINUTES Kassi Seymour, PRESCHOOL ADVISER - ACCOUNT EXECUTIVE [employer] [address] [place] [address] [facility] Onc [address] [place] [address] Referral ID Status Reason Start Date Expiration Date Visits Requested Visits Authorized [id number] Pending Review Specialty Services Required 02/16/2023 02/16/2024 1 1 Electronically signed by Kassi Seymour PRESCHOOL ADVISER - ACCOUNT EXECUTIVE [employer]INESS at 02/16/2023 9:13 AM EDT [facility] for referral (narrative)* Consultation (Urgent) - Pending Review Specialty Diagnoses / Procedures Referred By Contac t Referred To Contact Cardiology Diagnoses Chest pain, unspecified type Procedures CT OFFICE/OUTPATIENT [facility] 60-74 MINUTES Ems, Eder Tavarez MD [address] [place] [address] [facility] Card [address] [place] [address] Referral ID Status Reason Start Date Expiration Date Visits Requested Visits Authorized [id number] Pending Review Specialty Services Required 05/16/2023 05/15/2024 1 1 [facility] Consultation (Routine) - Pending Review Specialty Diagnoses / Procedures Referred By Tammy t Referred To Contact Gastroenterology Diagnoses Colon cancer screening Other cirrhosis of liver (HCC) Procedures CT OFFICE/OUTPATIENT [facility] 60 MINUTES Kassi Seymour APRN - HOLLIE [address] [place] [facility] [place] [address] [facility] Gastro [address] [place] [address] Referral ID Status Reason Start Date Expiration Date Visits Requested Visits Authorized [id number] Pending Review Specialty Services Required 08/26/2023 08/25/2024 1 1 * Medications - Pending Review Specialty Diagnoses / Procedures Referred By Tammy t Referred To Contact Diagnoses Type 2 diabetes mellitus with polyneuropathy (HCC) Kassi Seymour APRN - ACCOUNT EXECUTIVE [employer] [address] [place] [facility] [place] [address] Referral ID Status Reason Start Date Expiration Date V isits Requested Visits Authorized [id number] Pending Review 1 1 [facility] Consultation (Routine) - Pending Review Specialty Diagnoses / Procedures Referred By Conteran t Referred To Contact Endocrinology Diagnoses Hypoglycemia Procedures CT OFFICE/OUTPATIENT [facility] 60 MINUTES Vani Salas PA-C [address] [place] [address] [facility] [address] [place] [address] Referral ID Status Reason Start Date Expiration Date Visits Requested Visits Authorized [id number] Pending Review Specialty Services Required 12/13/2023 12/12/2024 1 1 [facility] Summary Purpose Family History Relationship Condition Age at Onset Recorded Date/T renee sister Traumatic brain injury Unknown brother Substance abuse Unknown Depression Unknown father Hypertension Unknown Malignant neoplasm of prostate Unknown Heart disease Unknown mother Depression Unknown Diabetes mellitus Unknown Advance Directives Documents on File Type Date Recorded Patient Abalone Diver Expl anation Advance Directives and Living Will Power of Single Pointed Operator Latest Code Status on File Code Status Date Activated Date Inactivated Comments Full Code 10/28/2018 7:29 PM 10/31/2018 7:37 PM Full Code 06/03/2018 6:31 AM 06/03/2018 7:05 PM Full Code 2018 7:42 PM 06/03/2018 6:31 AM Full Code 04/14/2018 11:11 PM 04/15/2018 3:01 PM Documents on File Type Date Recorded Patient Abalone Diver Expl anation ACP-Advance Directive ACP-Power of Single Pointed Operator Advance Directive Response Recorded Date/ Time Living Will No June 05 7:12pm Power of Single Pointed Operator No June 05, 2021 7:12pm Advance Directive Response Recorded Date/ Time Living Will No March 06 11:53pm Power of Single Pointed Operator No March 06 11:53pm Advance Directive Response Recorded Date/ Time Living Will No March 06 10:53pm Power of Single Pointed Operator No March 06 10:53pm Latest Code Status [...] AM Hospital Course Note Patient ID: Melanie Fernández Desiree Peres's PCP: Gio Ricketts, VENUSdmit Date: 2018Discharge Date: 06/03/2018Admitting Physician: Huang Sanchez, DODischarge Physician: Sang Hernández Diagnosis on Admission:Worsening episodic anginaAbnormal MPI with inferolateral and apical ischemiaHTNHLDMorbid vyxuvkaAF0T/O tobacco abuseDischarge Diagnoses:Worsening episodic angina with LHC showing no significant obstructive CADAbnormal MPI with inferolateral and apical ischemiaHTNHLDMorbid jumktzbWC3H/O tobacco abuseAdditional diagnosis evaluated and treated during the admission: NoneProcedures: LH on 06/03/18ignificant Diagnostic Studies:Consultants: Sang Preston (Cardiology)Hospital Course: 53 year old lady with poorly controlled DM2, HTN, HLD, morbid obesity admittedwith episodic chest pain. She states that she has been having anginal symptomsfor months which are usually brought on by mild exertion with radiation fromcentral chest area to left arm and neck occasionally a (more content not included)... Discharge Instructions * Instructions* Teresa Maya PA - 04/04/2020 Return to the ED if you experience worsening pain. Take pepcid twice a day fo rthe next 2 weeks. Follow-up with your PCP * Attachments The following attachments cannot be sent through Care Everywhere. * Chest Pain ([place]icar[place]uan) documented in this encounter Assessments Diagnosis Chest [...] cancer screening screening Reason for Visit Thrombocytopenia [id number] History of tobacco use Chief Complaint SCREENING 1YR NO LABS REVIEW MAMMO lab CHEST PAIN CHEST PAIN CHEST PAIN Lung cancer screening screening EORDERS Reason for Visit Thrombocytopenia [id number] History of tobacco use Reason for Referral Specialty Diagnoses / Procedures Referred By Contac t Referred To Contact Deisi Dickens, PRESCHOOL ADVISER - ACCOUNT EXECUTIVE [employer] [address] [place] [address] Referral ID Status Reason Start Date Expiration Date V isits Requested Visits Authorized [id number] Pending Review 1 1 Specialty Diagnoses / Procedures Referred By Contac t Referred To Contact Diagnoses Type 2 diabetes mellitus with polyneuropathy (HCC) Kassi Seymour, PRESCHOOL ADVISER - ACCOUNT EXECUTIVE [employer] [address] [place] [address] Referral ID Status Reason Start Date Expiration Date V isits Requested Visits Authorized [id number] Pending Review 1 1 Referral ID Status Reason Start Date Expiration Date V isits Requested Visits Authorized [id number] Pending Review 1 1 Referral ID Status Reason Start Date Expiration Date Visits Re quested Visits Authorized [id number] Denied 1 1 Referral ID Status Reason Start Date Expiration Date Visits Re quested Visits Authorized [id number] Denied 1 1 Additional Source Comments INFORMATION SOURCE (unrecogn ized section and content) DATE CREATED AUTHOR 07/06/2018 [facility] DATE CREATED AUTHOR AUTHOR'S ORGANIZ ATION 09/24/2019 [facility] DATE CREATED AUTHOR AUTHOR'S ORGANIZ ATION 06/21/2020 [facility] DATE CREATED AUTHOR AUTHOR'S ORGANIZ ATION 08/03/2020 [facility] DATE CREATED AUTHOR AUTHOR'S ORGANIZ ATION 01/03/2025 [facility] DATE CREATED AUTHOR AUTHOR'S ORGANIZ ATION 01/10/2025 [facility] Reason for Visit (unrecogniz ed section [...] was, Colon--last she thinks was in 2019-- Jadebbie, Dm eye--had a few months ago man[place] in [place], Dental--hasn't been she has dentures, Hep B--declines, [...] Annual Exam Health Maintenance Hep A/B-discussHIV/H ep I-rjacxplzJDA-iehhnrpbRvnacz-declinedDM eye-needs to be scheduledDM Bgbopl-ogubyafxTHM-wrwkzevtfXri smear-needs hnzavsiwrCdtgwf-jllbrksaNlfvi-fqwxkaJuqnw-pendedFlu-declinedCovid- declinedMammo-pended Hypertension Diabetes Depression Anxiety Reason Comments New Patient Reason Comments Altered Mental Status Specialty Diagnoses / Procedures Referred By Tammy t Referred To Contact Diagnoses Hypoglycemia Procedures . Jarvis Flannery MD [address] [place] [address] [facility] [address] [place] [address] Referral ID Status Reason Start Date Expiration Date Visits Re quested Visits Authorized [id number] 1 1 Reason Onset Date Comments Med [...] completedPneumococcal Vaccine-declinedCervical Cancer Screening-declinedColorectal Cancer Screening-declinedDiabetes: Urine Lthygqa-Lofyefyleb-ldqqsbQzpxldrqm-pendedDiabetes: Foot Exam-pendedDepression Monitoring-NEEDS DONEInfluenza Vaccine-had completed Reason Onset Date Comments Results 08/02/2024 Reason Comments URI Reason Comments Hyperglycemia Patient states she r eceived a steroid shot yesterday that elevated her blood glucose. Patient states she took an additional 12 units of insulin, however, her blood sugar stayed elevated. Reason Onset Date Comments Blood Sugar Problem 09/27/2024 Reason Comments Diabetes Mellitus Reason Comments Wound Care Pt presents to er fr om home for skin tag under her left breast.pt states there is skin missing, its preston, red and seeping. Reason Comments Back Pain Pt fell off the bed on Wednesday when she was trying to adjust herself, took tylenol yesterday for pain, reports she has a hx of liver disease so she is limited on what she can take for pain. Is on blood thinners, no LOC, did not hit head. Reason Onset Date Comments Epistaxis (Nose Bleed) 12/31/2024 Reason Comments Fall multiple Altered Mental Status Patient not feelin g like herself the last 3 days Gait Problem 3 days Nausea Reason Comments Back Pain Hip Pain Patient reports she fell yesterday. States she was seen last night. Goals (unrecognized section and content) Goals may [...] Isabel Parson RN)2233 (Given - Provider: Rayne Martell, ANTOINE) 0755 (Given - Provider: Jahaira Galvez, ANTOINE) dextrose 5 % and sodium chloride 0.9 % infusion (COMPLETED) 75 mL/hr, IntraVENous, Once, On Wed02/18/23 at 2135, For 1 dose 2205 (New Bag - Provider: Rabia Varma RN)223 (Stopped - Provider: Rabia Varma RN) dextrose [...] Jahaira Galvez RN)1200 (Given - Provider: Jahaira Galvez, ANTOINE)1700 (Not Given - Provider: Jahaira Galvez RN - Reason: Patient/family refused - Comment: Pt does not want to eat dinner here and will take her insulin at home) Insulin Lispro (Humalog) injection 5 Units 5 Units, SubCUTAneous, 3 times daily with meals, First dose on Wed02/19/23 at 1700 1700 (Given - Provider: Hui Lezama RN) 0800 (Given - Provider: Jahaira Galvez, RN)1200 (Given - Provider: Jahaira Galvez, ANTOINE)1700 (Not Given - Provider: Jahaira Galvez RN - Reason: Patient/family refused - Comment: pt does not want to eat dinner here and will take insulin at home) labetalol (Normodyne) tablet 100 mg 100 mg, Oral, 2 times daily, First dose on Wed02/18/23 at 2155 2208 (Given - Provider: Rabia Varma RN) 0938 (Given - Provider: Isabel Parson RN)2233 (Given - Provider: Rayne Martell, ANTOINE) 0755 (Given - Provider: Jahaira Galvez, RN) sodium chloride 0.9% (NS) flush 5-40 [...] Midline or Central Line = 20 mL/lumen 3 (Given - Provider: Rabia Varma, ANTOINE) 0950 (Not Given - Provider: Isabel Parson RN - Reason: IV Fluids Infusing)4 (Given - Provider: Rayne Martell, RN) 0950 (Given - Provider: Jahaira Galvez, ANTOINE) [...] line interruptions / long duration, Starting on Rianna 02/18/23 at 2146, For piggyback infusion, administer at [...] mg (COMPLETED) 1,000 mg, Oral, Once, On Wed03/15/23 at 1035, For 1 dose, Maximum dose [...] 1344 (Not Given - Pr ovider: Casandra Donald, RN - Reason: Other - Comment: 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 Give IV if [...] RN) PRN Medication Order 02/17/2024 02/18/2024 02/19/2024 vahwhzkzyk-hfwukqnvbgrqx-nfkzjzy e 50-325-40 MG per tablet 1 tablet [...] 1555 (New Bag - Prov ider: Yogesh Holloway, RN)1655 (Stopped - Provider: Yogesh Holloway RN) [...] 150 mg/dL, Starting on Wed09/27/24 at 1658 Scheduled Medication Order 12/17/2024 12/18/2024 12/19/2024 lidocaine-EPINEPHrine (Xylocaine W/EPI) 1 %-1:244143 injection 10 mL (COMPLETED) 10 mL, Infiltration, Once, On Wed12/19/24 at 1905, For 1 dose 1924 (Given by Other - Provider: Cris Bello RN - Reason: Administered by Other (Comment Required) - Comment: Dr. Kishan) Scheduled Medication Order 12/21/2024 12/22/2024 12/23/2024 ondansetron ODT (Zofran-ODT) disintegrating tablet 4 mg (COMPLETED) 4 mg, Oral, Once, On 12/23/24 at 1220, For 1 dose 1258 (Given - Provid er: Deidre Vaughn, ANTOINE) oxyCODONE-acetaminophen (Percocet) 5-325 MG per tablet 1 tablet (COMPLETED) 1 tablet, Oral, Once, On 12/23/24 at 1220, For 1 dose, Maximum dose of acetaminophen is 4000 mg from all sources in 24 hours. 1258 (Given - Provid er: Deidre Vaughn, ANTOINE) Scheduled Medication Order 01/07/2025 01/08/2025 01/09/2025 sodium chloride 0.9 % bolus 1,000 mL (COMPLETED) 1,000 mL, IntraVENous, at 1,000 mL/hr, Administer over 1 Hours, Once, On Wed01/09/25 at 0205, For 1 dose 0221 (New Bag - Prov ider: Catrachita Cheney, RN)0328 (Stopped - Provider: Catrachita Cheney, RN) Scheduled Medication Order 01/07/2025 01/08/2025 01/09/2025 oxyCODONE (Roxicodone) immediate release tablet 5 mg (COMPLETED) 5 mg, Oral, Once, On Wed01/09/25 at 2105, For 1 dose 2112 (Given - Provid er: Yogesh Holloway RN) Care Teams (unrecognized sec tion and content) Silk Snapper Relationship Specialty Start Date End Date Al Ricketts [address] [place] [address] [phone] PCP - General 12/07/22 Silk Snapper Relationship Specialty Start Date End Date Gio Ricketts MD [address] [place] [address] [id number] PCP - General Family Medicine 12/09/22 Silk Snapper Relationship Specialty Start Date End Date Gio Ricketts MD [address] [place] [address] PCP - General Family Medicine 12/09/22 Argenis Mosher, JIMBO Severity Of Illness Coordinator Licensed Independent Severity Of Illness Coordinator 12/30/22 Silk Snapper Relationship Specialty Start Date End Date Gio Ricketts MD [address] [facility] [place] [address] PCP - General Family Medicine 12/09/22 Argenis Mosher, JIMBO Severity Of Illness Coordinator Licensed Independent Severity Of Illness Coordinator 12/30/22 Silk Snapper Relationship Specialty Start Date End Date Gio Ricketts MD [address] [facility] [place] [address] PCP - General Family Medicine 12/09/22 Agrenis Mosher, JIMBO Severity Of Illness Coordinator Licensed Independent Severity Of Illness Coordinator 12/30/22 Silk Snapper Relationship Specialty Start Date End Date Gio Ricketts MD [address] [place], [place] [address], [place] [address] PCP - General Family Medicine 12/09/22 Argenis Mosher, JIMBO Severity Of Illness Coordinator Licensed Independent Severity Of Illness Coordinator 12/30/22 Silk Snapper Relationship Specialty Start Date End Date Gio Ricketts MD [address] [place], [place] [address], [place] [address] PCP - General Family Medicine 12/09/22 Argenis Mosher, JIMBO Severity Of Illness Coordinator Licensed Independent Severity Of Illness Coordinator 12/30/22 Silk Snapper Relationship Specialty Start Date End Date Gio Ricketts MD [address] [place] [address] [place] [address] PCP - General Family Medicine 12/09/22 Argenis Mosher, JIMBO Severity Of Illness Coordinator Licensed Independent Severity Of Illness Coordinator 12/30/22 Silk Snapper Relationship Specialty Start Date End Date Gio Ricketts MD [address] [place] [address] PCP - General Family Medicine 12/09/22 Argenis Mosher, JIMBO Severity Of Illness Coordinator Licensed Independent Severity Of Illness Coordinator 12/30/22 Silk Snapper Relationship Specialty Start Date End Date Gio Ricketts MD [address] [facility] [place] [address] PCP - General Family Medicine 12/09/22 Argenis Mosher, JIMBO Severity Of Illness Coordinator Licensed Independent Severity Of Illness Coordinator 12/30/22 Silk Snapper Relationship Specialty Start Date End Date Gio Ricketts MD [address] [place] [address] PCP - General Family Medicine 12/09/22 Silk Snapper Relationship Specialty Start Date End Date Gio Ricketts MD [address] [place] [address] PCP - General Family Medicine 12/09/22 Silk Snapper Relationship Specialty Start Date End Date Gio Ricketts MD [address] [place] [address] PCP - General Family Medicine 12/09/22 Silk Snapper Relationship Specialty Start Date End Date Gio Ricketts MD [address] [place] [address] PCP - General Family Medicine 12/09/22 Angel Juan MD [address] [facility] [address] [place] [address] Medical Oncology 09/22/23 Silk Snapper Relationship Specialty Start Date End Date Gio Ricketts MD [address] [place], [place] [address], [place] [address] PCP - General Family Medicine 12/09/22 Angel Juan MD [address] [place] [address] Medical Oncology 09/22/23 Silk Snapper Relationship Specialty Start Date End Date Gio Ricketts MD [address] [place], [place] [address], [place] [address] PCP - General Family Medicine 12/09/22 Angel Juan MD [address] [place] [id number] Medical Oncology 09/22/23 Silk Snapper Relationship Specialty Start Date End Date Gio Ricketts MD [address] [place], [place] [address], [place] [address] PCP - General Family Medicine 12/09/22 Angel Juan MD [address] [place] [address] Medical Oncology 09/22/23 Silk Snapper Relationship Specialty Start Date End Date Gio Ricketts MD [address] [place], [place] [address], [place] [address] PCP - General Family Medicine 12/09/22 Angel Juan MD [address] [place] [address] Medical Oncology 09/22/23 Silk Snapper Relationship Specialty Start Date End Date Gio Ricketts MD [address] [place] [address] PCP - General Family Medicine 12/09/22 Angel Juan MD [address] [place] [address] Medical Oncology 09/22/23 Silk Snapper Relationship Specialty Start Date End Date Gio Ricketts MD [address] [place] [id number] PCP - General Family Medicine 12/09/22 Angel Juan MD [address] [place] [address] Medical Oncology 09/22/23 Silk Snapper Relationship Specialty Start Date End Date Gio Ricketts MD [address] [place] [address] PCP - General Family Medicine 12/09/22 Angel Juan MD [address] [place] [address] Medical Oncology 09/22/23 Silk Snapper Relationship Specialty Start Date End Date Gio Ricketts MD [address] [place] [address] PCP - General Family Medicine 12/09/22 Angel Juan MD [address] [place] [address] Medical Oncology 09/22/23 Silk Snapper Relationship Specialty Start Date End Date Gio Ricketts MD [address] [place] [address] [place] [address] PCP - General Family Medicine 12/09/22 Angel Juan MD [address] [place] [address] Medical Oncology 09/22/23 Silk Snapper Relationship Specialty Start Date End Date Gio Ricketts MD [address] [place] [address] [facility] [place] [address] PCP - General Family Medicine 12/09/22 Angel Juan MD [address] [place] [address] Medical Oncology 09/22/23 Silk Snapper Relationship Specialty Start Date End Date Gio Ricketts MD [address] [place] [address] [facility] [place] [address] PCP - General Family Medicine 12/09/22 Angel Juan MD [address] [place] [address] Medical Oncology 09/22/23 Silk Snapper Relationship Specialty Start Date End Date Gio Ricketts MD [address] [place] [address] [place] [address] PCP - General Family Medicine 12/09/22 Angel Juan MD [address] [place] [address] Medical Oncology 09/22/23 Silk Snapper Relationship Specialty Start Date End Date Gio Ricketts MD [address] [place] [address] [facility] [place] [address] PCP - General Family Medicine 12/09/22 Angel Juan MD [address] [place] [address] Medical Oncology 09/22/23 Silk Snapper Relationship Specialty Start Date End Date Gio Ricketts MD [address] [place] [address] [facility] [place] [address] PCP - General Family Medicine 12/09/22 Angel Juan MD [address] [place] [address] Medical Oncology 09/22/23 Silk Snapper Relationship Specialty Start Date End Date Gio Ricketts MD [address] [place] [address] [facility] [place] [address] PCP - General Family Medicine 12/09/22 Angel Juan MD [address] [place] [address] Medical Oncology 09/22/23 Silk Snapper Relationship Specialty Start Date End Date Gio Ricketts MD [address] [place] [address] [facility] [place] [address] PCP - General Family Medicine 12/09/22 Angel Juan MD [address] [place] [address] Medical Oncology 09/22/23 Silk Snapper Relationship Specialty Start Date End Date Gio Ricketts MD [address] [place] [address] [place] [address] PCP - General Family Medicine 12/09/22 Angel Juan MD [address] [place] [address] Medical Oncology 09/22/23 Silk Snapper Relationship Specialty Start Date End Date Gio Ricketts MD [address] [place] [address] PCP - General Family Medicine 12/09/22 Angel Juan MD [address] [facility] [address] [place] [address] Medical Oncology 09/22/23 Silk Snapper Relationship Specialty Start Date [place] [address] PCP - General Family Medicine 12/09/22 Angel Juan MD [address] [facility] [address] [place] [address] Medical Oncology 09/22/23 Silk Snapper Relationship Specialty Start Date End Date Gio Ricketts MD [address] [place] [address] PCP - General Family Medicine 12/09/22 Angel Juan MD [address] [place] [address] Medical Oncology 09/22/23 Silk Snapper Relationship Specialty Start Date End Date Gio Ricketts MD [address] [place] [address] [place] [address] PCP - General Family Medicine 12/09/22 Angel Juan MD 161 [facility] [address] [place] [address] Medical Oncology 09/22/23 Silk Snapper Relationship Specialty Start Date End Date Gio Ricketts MD [address] [place] [address] PCP - General Family Medicine 12/09/22 Angel Juan MD [address] [place] [address] 198 [place] [address] Medical Oncology 09/22/23 Silk Snapper Relationship Specialty Start Date End Date Gio Ricketts MD [address] [place] [address] PCP - General Family Medicine 12/09/22 Angel Juan MD [address] [facility] [address] [place] [address] Medical Oncology 09/22/23 Silk Snapper Relationship Specialty Start Date End Date Gio Ricketts MD [address] [place] [address] PCP - General Family Medicine 12/09/22 Angel Juan MD [address] [facility] [address] [place] [address] Medical Oncology 09/22/23 Silk Snapper Relationship Specialty Start Date End Date Gio Ricketts MD 25 [place] [address] PCP - General Family Medicine 12/09/22 Angel Juan MD [address] [place] [address] 198 [place] [address] Medical Oncology 09/22/23 Silk Snapper Relationship Specialty Start Date End Date Gio Ricketts MD [address] [place] [address] PCP - General Family Medicine 12/09/22 Angel Juan MD [address] [place] [address] 198 [place] [address] Medical Oncology 09/22/23 Silk Snapper Relationship Specialty Start Date End Date Gio Ricketts MD [address] [place] [address] PCP - General Family Medicine 12/09/22 Angel Juan MD [address] [place] [address] 198 [place] [address] Medical Oncology 09/22/23 Silk Snapper Relationship Specialty Start Date End Date Gio Rciketts MD [address] [place] [address] PCP - General Family Medicine 12/09/22 Angel Juan MD [address] [address] Medical Oncology 09/22/23 Silk Snapper Relationship Specialty Start Date End Date Gio Ricketts MD [address] [place] [address] PCP - General Family Medicine 12/09/22 Angel Juan MD 161 [facility] [address] [place] [address] Medical Oncology 09/22/23 Silk Snapper Relationship Specialty Start Date End Date Gio Ricketts MD [address] [place] [address] PCP - General Family Medicine 12/09/22 Angel Juan MD 161 [facility] 198 [place] [address] Medical Oncology 09/22/23 Silk Snapper Relationship Specialty Start Date End Date Gio Ricketts MD [address] [place] [address] PCP - General Family Medicine 12/09/22 Angel Juan MD [address] [place] [address] [address] [place] [address] Medical Oncology 09/22/23 Silk Snapper Relationship Specialty Start Date End Date Gio Ricketts MD [address] [place], [place] [address], [place] [address] PCP - General Family Medicine 12/09/22 Angel Juan MD 161 [facility] 198 [place] [address] Medical Oncology 09/22/23 Silk Snapper Relationship Specialty Start Date End Date Gio Ricketts MD [address] [place], [place] [address] [address] PCP - General Family Medicine 12/09/22 Angel Juan MD [address] [address] Medical Oncology 09/22/23 Silk Snapper Relationship Specialty Start Date End Date Gio Ricketts MD [address] [place] [address] PCP - General Family Medicine 12/09/22 Angel Juan MD [address] [address] Medical Oncology 09/22/23 Silk Snapper Relationship Specialty Start Date End Date Gio Ricketts MD [address] [place] [address] PCP - General Family Medicine 12/09/22 Angel Juan MD [address] [place] [address] Medical Oncology 09/22/23 FOR RECORDS PERTAINING TO [...] BE BASED ON THE PRIMARY CLINICAL RECORDS. [facility]. provides no warranty or guarantee of the accuracy or completeness of information in this document.
[2025-01-12 10:21] LABS: AST(SGOT) 107 U/L (<=31); Alanine Aminotransfer ALT/SGPT 42 U/L (<=34); Albumin, Serum 3.9 g/dL (3.5-5.0); Alkaline Phosphatase 90 U/L (35-104); Anion Gap 12 (5-15); BUN 15 mg/dL (4-19); BUN/Creat Ratio 11.6 RATIO (10-20); Calcium,Total 8.7 mg/dL (7.6-11.0); Carbon Dioxide 21.1 mmol/L (21.0-32.0); Chloride 105 mmol/L (98-108); Estimated Creatinine Clearance 62.85 ml/min (50-250); Globulin 3.4 g/dL (2.2-4.2); Glucose 321 mg/dL (70-99); Lipase 52 U/L (13-75); Potassium 4.2 mmol/L (3.3-5.1)
[2025-01-12 11:09] VITALS: BP 114/77; PULSE 71; RESP 16; O2SAT 97
[2025-01-12 11:26] LABS: Mucous, Urine 0 SEEN /hpf (<or=2+); Red Blood Cells-Urine 0 SEEN /hpf (0-5)
[2025-01-12 11:29] LABS: Color, Urine Yellow (Yellow); Glucose, Dipstick 1000 mg/dl (Normal); Ketone-Dipstick Negative (Negative); Leukocyte Esterase-Dipstick Negative /ul (Negative); Nitrite-Dipstick Negative (Negative); Occult Blood-Urine 25 /ul (Negative); Protein-Dipstick 100 mg/dl (Negative); Specific Gravity, Urine 1.010 (1.002-1.030); Urine Bilirubin Dipstick Negative (Negative)
[2025-01-12 11:35] LABS: Squamous Epithelial Cells - UA 0-5 SEEN /hpf (5-10)
[2025-01-12 13:00] VITALS: BP 110/92; PULSE 73; RESP 14; O2SAT 98
[2025-01-12 13:13] VITALS: BP 110/92; PULSE 73; RESP 14; TEMP 36.6; O2SAT 98
== END 2025-01-12 13:36 | disposition home or self-care (01) ==
PROVIDERS: Emergency Provider Emergency Medicine; PCP Family Medicine; Visit Provider Emergency Medicine
DX: R10.9 Unspecified abdominal pain (principal); D61.818 Other pancytopenia; K74.60 Unspecified cirrhosis of liver; J44.9 Chronic obstructive pulmonary disease, unspecified; E11.9 Type 2 diabetes mellitus without complications; K75.81 Nonalcoholic steatohepatitis (NASH); E78.00 Pure hypercholesterolemia, unspecified; Z87.891 Personal history of nicotine dependence; R51.9 Headache, unspecified; R06.00 Dyspnea, unspecified
CPT/HCPCS: 74177; 80053; 81001; 83690; 85025; 96374; 96375; 99283; Q9967; A4216; J2405

== ENCOUNTER → 2025-01-17 | Outpatient (CLI) | payer BC, SELFPAY ==
[2025-01-17 14:30] LABS: Hematocrit 35.1 % (37-47); Hemoglobin 11.2 g/dL (12.0-15.0); Immature Granulocytes Count 0.000 X10^3/uL (0.0-0.0); Mean Corp Hgb Conc 31.9 g/dL (32-36); Mean Corpuscular Volume 86.5 fL (81-99); Mean Platelet Vol. 10.9 fl (6.2-12.0); NRBC Flagged by Analyzer 0 % (0-5); POSITIVE COUNT YES; POSITIVE DIFFERENTIAL YES; RBC Distribution Width CV 15.7 % (11.6-14.6); RBC Distribution Width SD 49.4 fl (35.1-43.9); Red Blood Count 4.06 M/mm3 (4.2-5.4); White Blood Count 2.2 K/mm3 (4.4-11.0)
[2025-01-17 14:46] LABS: Differential Indicated SCAN CRITERIA MET
[2025-01-17 15:15] LABS: Platelet Count 45 K/mm3 (150-450)
[2025-01-17 16:38] LABS: AST(SGOT) 37 U/L (<=31); Alanine Aminotransfer ALT/SGPT 32 U/L (<=34); Albumin, Serum 3.9 g/dL (3.5-5.0); Alkaline Phosphatase 80 U/L (35-104); Anion Gap 12 (5-15); BUN 10 mg/dL (4-19); BUN/Creat Ratio 8.5 RATIO (10-20); Calcium,Total 9.7 mg/dL (7.6-11.0); Carbon Dioxide 23.9 mmol/L (21.0-32.0); Chloride 106 mmol/L (98-108); Globulin 3.4 g/dL (2.2-4.2); Glucose 121 mg/dL (70-99); Potassium 4.0 mmol/L (3.3-5.1)
== END | disposition home or self-care (01) ==
LOC: LAB 13:56
PROVIDERS: PCP Family Medicine; Referring Provider Nurse Practitioner Acute Care; Visit Provider Nurse Practitioner Acute Care
DX: K75.81 Nonalcoholic steatohepatitis (NASH) (principal); D61.818 Other pancytopenia; K74.60 Unspecified cirrhosis of liver
CPT/HCPCS: 36415; 80053; 85025

== ENCOUNTER 2025-01-21 20:49 | Emergency (ER) | payer BC, SELFPAY ==
[2025-01-21 20:50] VITALS: BP 144/84; PULSE 81; RESP 16; TEMP 37.1; O2SAT 96; BMI 41.2
--- NOTE | 2025-01-21 22:14 | CT_ITS ---
PROCEDURE: ABDOMEN/PELVIS W IV CONT ONLY 01/21/2025 REASON FOR EXAM: RIGHT ABDOMINAL PAIN TECHNIQUE: ABDOMEN/PELVIS W IV CONT ONLY Coronal and Sagittal reconstruction series were provided. One or more dose reduction techniques were used (e.g., Automated exposure control, adjustment of the mA and/or kV according to patient size, use of iterative reconstruction technique. RADIATION DOSE SUMMARY: CTDlvol: 61 mGy DLP: 1562 mGycm COMPARISON: 01/12/2025 FINDINGS: Basilar atelectasis. Normal heart size. Cirrhosis and diffuse hepatic steatosis. Status post cholecystectomy. Portal venous hypertension and upper abdominal collateral vessels. There is a history of portal vein thrombosis, which appears to have resolved. Normal pancreas. Splenic enlargement, 24.5 cm length. Normal adrenal glands. Right-sided renal scarring. No hydronephrosis. Normal bladder. Small uterine calcification. Normal ovaries. No retroperitoneal or pelvic adenopathy. No free air. Nonobstructed bowel normal appendix no acute large bowel findings. Lumbar spine degeneration. Ventral abdominal wall small loculated fluid collection, series 2, image 109, measuring up to 4 cm, stable favoring seroma. CT/Abdomen/Pelvis W IV Cont ONLY IMPRESSION: Cirrhosis, portal venous hypertension, splenic enlargement. No acute abdominal or pelvic findings. Reading [facility]
--- NOTE | 2025-01-21 22:15 | ED.VIS.GI ---
HPI HPI - GI History of Present Illness Chief Complaint: Abd Pain Detail of Chief Complaint: Abdominal pain Informant: patient Narrative Narrative: Patient presents with abdominal pain that started 2 weeks ago. She was seen in the emergency department 1 week ago for similar complaint and had labs and imaging. She is followed up with her vice president planning as well as Dr. Beach whom she sees for her liver. Patient states she continues to have pain to the right side. She has had somewhat decreased urine output. She complains of some pain across her low back. Patient states that she was on blood thinners but was taken off because her platelet count was low last time. She has history of a thrombosis in her portal vein. Patient denies any fever. She has had nausea. She denies any diarrhea. [facility] Medical History Arthritis Anemia High cholesterol History of Crohn's disease History of IBS GERD (gastroesophageal reflux disease) Sleep apnea PVT (portal vein thrombosis) Pancytopenia Liver disease Loss of hearing Wears glasses Wears dentures Post-menopausal History of steroid therapy Insulin dependent diabetes mellitus Restless legs Back pain Dietary restriction Heartburn History of ulceration Colitis Former smoker CPAP (continuous positive airway pressure) dependence Shortness of breath on exertion Asthma Chronic cough Leg cramps History of edema History of echocardiogram History of stress test Cardiology follow-up encounter Disease of gingiva due to infection Incisional hernia Lung infection MDD (major depressive disorder) Allergies Contact with and (suspected) exposure to other viral communicable diseases URI (upper respiratory infection) Concussion History of tobacco use Encounter for screening for malignant neoplasm of lung in former smoker who quit in past 15 years with 30 pack year history or greater Trochanteric bursitis of left hip Right leg weakness Rectal bleed Hemorrhoids Fatigue Elevated transaminase level COPD (chronic obstructive pulmonary disease) Proteinuria Osteoarthritis Obesity Anxiety Hyperglycemia Hyponatremia Essential hypertension Migraines Depression Thrombocytopenia Home Medications ?Medication ?Instructions ?Recorded ?Last Taken ?Type albuterol sulfate 90 mcg/actuation 2 puff inhalation Q6H PRN PRN 07/29/20 10/01/23 History aerosol inhaler Shortness Of Breath labetalol 100 mg tablet 100 mg PO BID 07/29/20 12/17/24 History metformin 1,000 mg tablet 1,000 mg PO BIDCM 07/29/20 12/17/24 History bupropion HCl 300 mg 24 hr tablet, 300 mg PO QAM 30 days #30 tabs 02/01/23 12/17/24 Rx extended release buspirone 10 mg tablet 10 mg PO BID 10/31/24 12/17/24 History glimepiride 4 mg tablet 4 mg PO QAM 10/31/24 12/17/24 History lactulose 10 gram/15 mL oral 10 g (15 mL) PO QDAY 90 days 10/31/24 12/15/24 Rx solution #1,350 mL mecobalamin (vitamin B12) 10,000 10,000 mcg IM QMONTH 10/31/24 12/11/24 History mcg solution for injection rosuvastatin 5 mg tablet 5 mg PO QDAY 10/31/24 12/17/24 History apixaban 2.5 mg tablet (Eliquis) 2.5 mg PO BID #60 tabs 11/29/24 12/12/24 Rx ondansetron HCl 4 mg tablet 4 mg PO Q6H PRN nausea and 12/14/24 12/16/24 Rx vomiting #20 tabs pantoprazole 40 mg tablet,delayed 40 mg PO BID #60 tabs 12/14/24 12/17/24 Rx release rifaximin 550 mg tablet (Xifaxan) 550 mg PO BID 30 days #60 tabs 12/19/24 Unknown Rx spironolactone 25 mg tablet 12.5 mg (1/2 x 25 mg) PO DAILY 1 12/19/24 Unknown Rx month #30 tabs oxycodone 5 mg capsule 5 mg PO Q6H PRN pain 3 days #10 01/22/25 Unknown Rx caps Allergy/AdvReac Type Severity Reaction Status Date / Time cat dander Allergy Severe Swelling Verified 01/21/25 20:50 lisinopril AdvReac Intermediate edema and Verified 01/21/25 20:50 difficulty breathing Family History Sister TBI (traumatic brain injury) Colon cancer Brother Substance abuse Depression Seizures Father Hypertension Prostate cancer Heart disease Arthritis Myocardial infarction Kidney disease Mother Depression Heart disease Diabetes Asthma Osteoporosis Respiratory disease Surgical History H/O tooth extraction History of incisional hernia repair History of tonsillectomy and adenoidectomy History of endometrial ablation H/O colonoscopy History of cholecystectomy Status post carpal tunnel release H/O cardiac catheterization Social History household members: spouse Smoking Status: Former smoker alcohol intake: never substance use type: does not use ROS ROS ED Review of Systems ROS Unobtainable: other Constitutional Constitutional ED: Reports lethargy; Denies chills, fever(s), sweats or weight loss Eyes Eyes: Denies blurry vision, change in vision or diplopia ENT ENT ED: Denies rhinorrhea or sore throat Cardiovascular Cardiovascular: Denies chest pain, orthopnea or racing heartbeat Respiratory/Chest Respiratory/Chest: Denies cough, dyspnea, dyspnea on exertion, orthopnea or sputum Gastrointestinal Gastrointestinal: Reports abdominal pain and nausea; Denies diarrhea or vomiting Genitourinary Genitourinary ED: Reports other Details: Decreased urine output ; Denies dysuria, hematuria or urinary frequency Musculoskeletal Musculoskeletal: Denies arthralgias, back pain, myalgias or neck pain Integumentary Denies abscess, Abrasions or rash Neurologic Neurologic: Denies headache(s) or weakness Psychiatric Psychiatric: Denies anxiety, depression or suicidal thoughts Endocrine Endocrinology: Denies polydipsia, polyphagia or polyuria Hematologic/Lymphatic Hematologic/Lymphatic: Denies easy bleeding, easy bruising or lymphadenopathy Allergic/Immunologic Allergic/Immunologic ED: Denies mouth swelling, tongue swelling or urticaria EXAM Physical Exam Const Vital Signs: 01/21/25 20:50 Temperature 98.7 F Temperature Source Oral Pulse Rate 81 Respiratory Rate 16 Blood Pressure 144/84 H Blood Pressure Mean 104 Pulse Ox 96 Oxygen Delivery Method Room Air Positive well nourished and well developed General Appearance ED: well developed and NAD HEENT Reports TM's clear and moist mucous membranes normocephalic and atraumatic; Negative for trauma or tenderness Tympanic Membrane ED: Yes TM's clear Eyes PERRL and EOMs intact bilaterally General Eye ED: Negative for pale conjunctiva or scleral icterus Neck no lymphadenopathy, supple and no JVD General: Negative for tenderness Chest Wall inspection of chest normal and palpation of chest normal Chest: Negative for tenderness Resp normal respiratory effort and clear to auscultation bilaterally Effort and Inspection: Negative for respiratory distress or pain with movement Auscultation: Negative for rhonchi, wheezes or diminished lung sounds Cardio regular rate, regular rhythm, S1 normal heart sound, S2 normal heart sound and no murmurs Peripheral Pulses: pulses 2+ throughout GI normal to inspection, nondistended, normoactive bowel sounds, soft to palpation, non-distended and no masses GI Narrative: Tenderness palpation over the right lower quadrant as well as the right upper quadrant. Patient is morbidly obese. She is there is no rebound, rigidity, or peritoneal signs. No masses palpated Back/Spine no CVA tenderness and no thoracic nor lumbar tenderness Extremity normal to inspection General Extremety ED: Negative for edema General Extremity: Negative for edema Neuro oriented x3, CN's II-XII intact bilaterally, no sensory deficits noted and gait normal Sensorium / Orientation: awake, alert, oriented to person, oriented to place and oriented to time Motor Exam: strength 5/5 throughout and strength abnormal Psych mental status grossly normal Skin no rashes or lesions noted and no wounds MDM MDM MDM Narrative Medical decision making narrative: Patient presents with ongoing abdominal pain for about 2 weeks. Currently seeing the liver specialist as well as vice president planning. Seen in the emergency department 1 week ago for same and had essentially negative workup. She has low platelets and was recently taken off anticoagulation. She has had a cholecystectomy. She still has her appendix. IV line established. She was medicated morphine and Zofran. CBC with differential obtained showed a white count 2.0 with hemoglobin 10.7 and platelet count of 44,000. Chemistries unremarkable. LFTs were normal. Lactate elevated at 2.4. Urinalysis without signs of infection. CT scan of the abdomen pelvis with IV contrast essentially showed cirrhosis with no acute findings otherwise. This point etiology of her pain unclear. Her abdomen is nonsurgical and she is nontoxic-appearing. I will write her prescription for some oxycodone and advised to follow-up with her specialists. She is to return if fever, worsening pain, vomiting, or condition should worsen anyway. Lab Data Attestation: I reviewed the patient's lab results. Labs: Laboratory Results - last 24 hr 01/21/25 01/21/25 22:04 22:30 WBC 2.0 L RBC 3.88 L Hgb 10.7 L Hct 33.2 L MCV 85.6 MCH 27.6 MCHC 32.2 RDW Std Deviation 47.7 H RDW Coeff of Stu 15.3 H Plt Count 44 L* MPV 11.8 Immature Gran % (Auto) 0.500 Neut % (Auto) 63.4 Lymph % (Auto) 23.9 Whiteside % (Auto) 12.2 H Eos % (Auto) 0.0 Baso % (Auto) 0.0 Absolute Neuts (auto) 1.3 L Absolute Lymphs (auto) 0.47 L Nucleated RBC % 0 Differential Comment SCANNED Diff Path Review May foll Platelet Estimate MKD DEC Sodium 140 Potassium 3.7 Chloride 104 Carbon Dioxide 22.5 Anion Gap 13 BUN 12 Creatinine 1.30 H Estim Creat Clear Calc 59.69 Est GFR (MDRD) Non-Af 48 L BUN/Creatinine Ratio 9.2 L Glucose 132 H Lactic Acid 2.4 H* Calcium 9.6 Total Bilirubin 0.85 AST 31 ALT 24 Alkaline Phosphatase 83 Total Protein 6.9 Albumin 3.8 Globulin 3.1 Albumin/Globulin Ratio 1.2 Lipase 42 Urine Color Yellow Urine Clarity Clear Urine pH 6.0 Ur Specific [place] 1.010 Urine Protein 30 H Urine Glucose (UA) Normal Urine Ketones Negative Urine Occult Blood 10 H Urine Nitrite Negative Urine Bilirubin Negative Urine Urobilinogen Normal Ur Leukocyte Esterase 25 H Urine RBC 0-5 SEEN Urine WBC 5-10 SEEN Ur Squamous Epith Cells 10-25 SEEN Ur Transition Epith Cell 0-5 SEEN Urine Bacteria RARE Urine Mucus 0 SEEN Radiography Diagnostic Testing: Clinical Impression(s) from Imaging Studies Abdomen/Pelvis CT 01/21/25 22:14 IMPRESSION: Cirrhosis, portal venous hypertension, splenic enlargement. No acute abdominal or pelvic findings. Reading Location: [place] [address] Discharge Plan Triage Chief Complaint: Abd Pain ED Provider: Orestes Francis Dx/Rx/DC Orders Clinical Impression: Abdominal pain Instructions: ED Abdominal Pain Unkn Cause Fem Prescriptions: New oxycodone 5 mg capsule 5 mg PO Q6H PRN (Reason: pain) 3 Days Qty: 10 0RF No Action buspirone 10 mg tablet 10 mg PO BID glimepiride 4 mg tablet 4 mg PO QAM Rx Instructions: administer with breakfast rosuvastatin 5 mg tablet 5 mg PO QDAY mecobalamin (vitamin B12) 10,000 mcg recon soln 10,000 mcg IM QMONTH lactulose 10 gram/15 mL solution 10 g PO QDAY 90 Days Qty: 1350 1RF spironolactone 25 mg tablet 12.5 mg PO DAILY 30 Days Qty: 30 3RF Xifaxan 550 mg tablet 550 mg PO BID 30 Days Qty: 60 5RF metformin 1,000 MG tablet 1,000 mg PO BIDCM labetalol 100 MG tablet 100 mg PO BID albuterol sulfate 1 PUFF inhaler 2 puff INHALATION Q6H PRN PRN (Reason: Shortness Of Breath) bupropion HCl 300 mg tablet extended release 24 hr 300 mg PO QAM 30 Days Qty: 30 2RF Eliquis 2.5 mg tablet 2.5 mg PO BID Qty: 60 2RF ondansetron HCl 4 mg tablet 4 mg PO Q6H PRN (Reason: nausea and vomiting) Qty: 20 1RF pantoprazole 40 mg tablet,delayed release (DR/EC) 40 mg PO BID Qty: 60 1RF Rx Instructions: take 30 minutes before breakfast and dinner Primary Care Provider: See Reece Referrals: See Reece MD [Primary Care Provider] - Hugo Pierre DO [Med Staff - Active Staff] - 3-5 Days Activity Restrictions/Additional Instructions: Follow-up with your surgeon and vice president planning if symptoms persist. Print Language: Luxembourger Disposition Disposition: Home, Self Care
--- OUTSIDE RECORDS SUMMARY | 2025-01-21 22:20 | XMS RPT_ITS | CCD ---
Author Organization [facility] Care Team Providers Care Regulatory Agency Director Name Role Phone PROVIDER, UNKNOWN Unavailable Unavailable Gio Ricketts Unavailable Unavailable Salma Preston Unavailable Unavailab iGo Maldonado Primary Care Provider Gio Ricketts Primary [...] Dr. Rik Gloria Attending Provider Juan C RUNNER MAN, RUNNER MAN-C Dee Attending Provider Juan C RUNNER MAN, RUNNER MAN-C Dee Referring Provider Al Ricketts Primary Care Provider Gio Ricketts MD Primary Care Provider Gio Ricketts MD Primary Care Provider Argenis Blackwell Unavailable Unavailab caleb Juan MD, Angel Unavailable Drake WOODSON, Angel Unavailable CHEVY, GIO Primary Care Unavailable CHEVY, GIO Primary Care Unavailable RAY ESPITIA Attending Unavailable CHEVY, GIO Primary Care Unavailable KASSI SEYMOUR Attending Unavailable CHEVY, GIO Primary Care Unavailable AMBER HOLLEY Attending Unavailable CHEVY, GIO Primary Care Unavailable Rc Freeman Attending Unavailabl e Chevy, Gio Primary Care Unavailable Chevy, Gio Primary Care Unavailable PortilloSujathaDeisi Attending Unavailable Chevy, Gio Referring Unavailable Chevy, Gio Primary Care Unavailable Reodica, Lino Referring Unavailable Reodica, Lino Attending Unavailable Friend, Hugo Attending Unavailable Chevy, Gio Primary Care Unavailable Chevy, Gio Referring Unavailable Portillo, Deisi Referring Unavailable Chevy, Gio Primary Care Unavailable Portillo, Deisi Attending Unavailable Portillo, Deisi Referring Unavailable Chevy, Gio Primary Care Unavailable Portillo Deisi Attending Unavailable Portillo, Deisi Referring Unavailable Chevy, Gio Primary Care Unavailable Portillo, Deisi Attending Unavailable Chevy, Gio Primary Care Unavailable Juan C RUNNER MAN, Dee Referring Unavailable Juan C RUNNER MAN, Dee Attending Unavailable Chevy, Gio Primary Care Unavailable Alfonso Covarrubias Attending Unavailable Portillo, Deisi Attending Unavailable Portillo, Deisi Referring Unavailable Chevy, Gio Primary Care Unavailable Portillo, Deisi Attending Unavailable Portillo, Deisi Referring Unavailable Chevy, Gio Primary Care Unavailable Chevy, Gio Referring Unavailable Chevy, Gio Primary Care Unavailable Rosales Oviedo Attending Unavailable Chevy, Gio Referring Unavailable Chevy, Gio Primary Care Unavailable Juan Francisco Evans Attending Unavailable Chevy, Gio Referring Unavailable Chevy, Gio Primary Care Unavailable Yong, Stanley Attending Unavailable Chevy, Gio Primary Care Unavailable Chevy, Gio Referring Unavailable Yong, Stanley Attending Unavailable Chevy, Gio Primary Care Unavailable Portillo Deisi Attending Unavailable Chevy, Gio Referring Unavailable Chevy, Gio Referring Unavailable Friend, Hugo Attending Unavailable Friend, Hugo Consulting Unavailable Chevy, Gio Primary Care Unavailable Chevy, Gio Primary Care Unavailable López Rea Attending Unavailable PortilloDeisi Attending Unavailable Portillo, Deisi Referring Unavailable Gio Ricketts Primary Care Unavailable Deisi Nath Referring Unavailable Gio Ricketts Primary Care Unavailable Deisi Nath Attending Unavailable Gio Ricketts Primary Care Unavailable Robles Ricketts Referring Unavailable Robles Ricketts Attending Unavailable Allergies Allergy Classification Reported Allergen(s) Allergy Type Date of Onset Reaction(s) Facility Cat Hair Extract (2 sources) Cat Hair Extract Drug Allergy 5 Anaphylaxis, Swelling [facility] Pollen (2 sources) Pollen Substance Allergy 3 Unknown [facility] (20 sources) Cat Hair Extract Drug Allergy 5 Swelling, Anaphylaxis [place], [place] (20 sources) cat dander; Translations: [cat dander] Allergy to substance 5 Anaphylaxis, Swelling [facility] (20 sources) Pollen Propensity to adverse reactions 3 Unknown [facility] (1 source) Cat Hair Extract Allergy to substance 5 Anaphylaxis, Swelling [facility] (20 sources) Lisinopril Propensity to adverse reactions 3 Angioedema [facility] (6 sources) rifAXIMin Drug Allergy 5 Rash [facility] (1 source) Lisinopril Drug Allergy 5 [facility] Repository Medications Current Medications Medication Drug Class(es) Dates Sig (Normalized) Sig (Original) acetaminophen 650 mg / dextromethorphan hydrobromide 20 mg / guaiFENesin 400 mg / phenylephrine hydrochloride 10 mg powder for oral solution (1 source) Uncompetitive J-mkxkis-E-aspartat e Receptor Antagonist, Sigma-1 Agonist, alpha-1 Adrenergic Agonist Phenylephrine-D M-GG-APAP (MUCINEX FAST-MAX) [phone] MG PACK Take by mouth 0 Active acetaminophen 325 mg / HYDROcodone bitartrate 5 mg oral tablet (7 sources) Opioid Agonist Start: 09-02-2024 take 1 tablet by mouth every six hours as needed for pain HYDROcodone-claudy taminophen ([place]) 5-325 MG tablet TAKE 1 TABLET BY [...] 06/14/2020 Active apixaban 2.5 mg oral tablet (5 sources) Factor Xa Inhibitor Start: 12-10-2024 take [...] 30 capsule 0 08/08/2019 Active Continuous Glucose Pt Sitter (FreeStyle Adiel 3 [place]) device (20 sources) Start: 12-12-2024 End: 12-12-2025 Continuous Glucose Pt Sitter (FreeStyle Adiel 3 [place]) device Indications: Type 2 diabetes with nephropathy (HCC) Check blood sugar 2-4 times daily. 1 each 12/12/2024 12/12/2025 Active Start: 11-16-2023 End: 06-28-2024 Continuous Glucose Pt Sitter (FreeStyle Adiel 3 [place]) device Indications: Type 2 diabetes mellitus with polyneuropathy (HCC) 1 Device daily. 1 each 11/16/2023 06/28/2024 Discontinued Start: 11-16-2023 Continuous Glu cose Pt Sitter (FreeStyle Adiel 3 [place]) device Indications: Type 2 diabetes mellitus with polyneuropathy (HCC) 1 Device daily. 1 each 11/16/2023 Active Start: 11-16-2023 Continuous Glu cose Pt Sitter (FreeStyle Adiel 3 [place]) device Indications: Type 2 diabetes mellitus with polyneuropathy (HCC) 1 Device daily. 1 each 0 11/16/2023 Active Continuous Glucose Sensor (FreeStyle Adiel [...] Glu cose Sensor (FreeStyle Adiel 3 Sensor) [facility] Indications: Type 2 diabetes mellitus with polyneuropathy [...] 2 diabetes mellitus with hyperglycemia, unspecified whether inspector mechanical insulin use (HCC) Take 1 tablet (4 mg) by mouth daily (with breakfast). 90 tablet 1 10/31/2024 Active Start: 09-01-2024 take 2 tablets by mo uth once daily at breakfast glimepiride (Amaryl) 2 MG tablet Indications: Type 2 diabetes mellitus with hyperglycemia, unspecified whether senior living insulin use (HCC) Take 2 tablets (4 mg) by mouth daily (with breakfast). 09/28/2024 Active Start: 06-30-2024 End: 08-01-2024 take 1 tablet by mouth once daily at breakfast glimepiride (Amaryl) 2 MG tablet Indications: Type 2 diabetes mellitus with hyperglycemia, unspecified whether inspector mechanical insulin use (HCC) Take 1 tablet (2 [...] 2 diabetes mellitus with hyperglycemia, unspecified whether inspector mechanical insulin use (HCC) INJECT 14 UNITS SUBCUTANEOUSLY NIGHTLY 15 mL 12/25/2024 Active Start: 10-24-2024 End: 12-25-2024 insulin glargine (Lantus Jennifer oStar) 100 UNIT/ML pen Indications: Type 2 diabetes mellitus with hyperglycemia, unspecified whether inspector mechanical insulin use (HCC) Inject 16 Units under the skin Nightly. 10/24/2024 12/25/2024 Discontinued Start: 10-03-2024 End: 10-24-2024 insulin glargine (Lantus Jennifer oStar) 100 UNIT/ML pen Indications: Type 2 diabetes mellitus with hyperglycemia, unspecified whether inspector mechanical insulin use (HCC) Inject 14 Units under the skin Nightly. 5 Pen 10/03/2024 10/24/2024 Discontinued Start: 08-02-2024 End: 09-20-2024 inject 10 [IU] by subcutaneous injection once daily Lantus SoloStar 100 UNIT/ML pen Indications: Type 2 diabetes mellitus with hyperglycemia, unspecified whether inspector mechanical insulin use (HCC) INJECT 10 UNITS SUBCUTANEOUSLY [...] 08/26/2023 Active lactulose 667 mg/ml oral solution (11 sources) Osmotic Laxative Start: 10-31-2024 take 15 [...] (with meals) 60 tablet 8 06/19/2019 Active Mounjaro 5 MG/0.5ML solution auto-injector (1 source) Start: 01-14-2025 inject 5 mg by subcutaneous injection every week Mounjaro 5 MG/0.5ML solution auto-injector Indications: Type 2 diabetes mellitus with polyneuropathy (HCC) INJECT 5 MG SUBCUTANEOUSLY ONCE WEEKLY. 8 mL 01/14/2025 Active nitroglycerin 0.02 mg/mg topical ointment (7 sources) Nitrate Vasodilator Start: 04-04-2020 nitroglycerin (NITRO-BID) 2 % ointment 1 inch Start: [...] Antifungal Start: 02-26-20 End: 02-26-20 nystatin (Mycostatin) 451366 UNIT/GM powder Apply topically 2 times daily. 30 g 02/26/2024 02/25/2025 Active Start: 07-29-2020 End: 04-07-2022 Nystatin Discontinued 1 APPL IC TOPICAL THREE TIMES A DAY July 29, 2020 12:00am April 07, 2022 1:15pm Start: 04-08-2020 nystatin (MYCO STATIN) 015750 UNIT/GM cream Indications: Skin yeast infection Apply topically 2 times daily to groin. 30 g 0 04/08/2020 Active Oxymetazoline (1 source) Oxymetazoline HC l (SINEX ULTRA FINE MIST 12-HOUR NA) by Nasal route 0 Active pantoprazole 40 mg delayed release oral tablet (5 sources) Proton Pump Inhibitor Start: 2024 take [...] tablet 2 08/07/2019 Active polyethylene glycol 3350 190751 mg / potassium chloride 2970 mg / sodium bicarbonate 6740 mg / sodium chloride 5860 mg / sodium sulfate 66965 mg powder for oral solution (5 sources) Osmotic Laxative Start: 2024 PEG 5071-XWp-KsIyh-NaCl- NaSulf (PEG-3350/Electrolyt es) 236 g reconstituted solution [...] Active rosuvastatin calcium 5 mg oral tablet (19 sources) HMG-CoA Reductase Inhibitor Start: 2024 End: [...] mL spironolactone (Aldactone) 12.5 MG split tablet (5 sources) Start: 2024 take 1 tablet by [...] time per week. 2 mL 08/01/2024 Active traMADol hydrochloride 50 mg oral tablet (12 sources) Opioid Agonist Start: 09-25-2024 take 1 [...] Start: 05-28-2020 take 1 capsule by mo [facility] once daily venlafaxine (EFFEXOR XR) 150 [...] every six hours as needed for headache fhfcknmjif-lnsugedfnqpvz-mvkcwfcl 50-325 -40 MG tablet Take 1 tablet by mouth every 6 hours as needed for headaches for up to 5 days. 20 tablet 02/19/2024 02/24/2024 Active [id number] 200 actuat albuterol 0.09 mg/actuat metered dose inhaler (20 sources) beta2-Adrenergic Agonist Start: 10-12-2023 End: 10-12-2023 take 1 puff(s) by inhalation every six hours as needed for wheezing 1 puff, Inhalation, Every 6 hours PRN, wheezing, shortness of breath, Starting on Tu10/12/23 at 0107 Start: 02-20-2023 End: 08-26-2023 take [...] End: 12-19-2024 10 mL, Infiltration, Once, On Wed12/19/24 at 1905, For 1 dose 2 ml [...] dose ondansetron 4 mg disintegrating oral tablet (15 sources) Serotonin-3 Receptor Antagonist Start: 12-23-2024 End: 12-23-2024 take 4 mg by mouth once 4 mg, Oral, Once, On 12/23/24 at 1220, For 1 dose Start: 12-14-2024 take 1 tablet by herve every six hours as needed for nausea [...] tablet 01/09/2025 01/11/2025 Active polyethylene glycol 3350 27246 mg powder for oral solution (4 sources) [...] long-term current use of insulin (HCC) , jail current use of insulin (HCC) , Uncontrolled [...] long-term current use of insulin (HCC) , access rn current use of insulin (HCC) , Uncontrolled type 2 diabetes mellitus with complication (HCC) inject 130 units before breakfast and 85 units before dinner 18 mL 8 01/15/2020 Active Start: 06-30-2019 insulin regula r human (HUMULIN R U-500 KWIKPEN) 500 UNIT/ML SOPN concentrated injection pen Indications: Uncontrolled type 2 diabetes mellitus with microalbuminuria, with long-term current use of insulin (HCC) , access rn current use of insulin (HCC) inject 130 [...] sodium chloride 0.9 % bolus 1,000 mL Tirzepatide (Mounjaro) 5 MG/0.5ML solution auto-injector (12 sources) Start: 11-20-2024 End: 01-14-2025 inject 5 mg by subcutaneous injection every week Tirzepatide (Mounjaro) 5 MG/0.5ML solution auto-injector Indications: Type 2 diabetes mellitus with polyneuropathy (HCC) Inject 5 mg under the skin 1 (one) time per week. 4 mL 11/20/2024 01/14/2025 Discontinued Start: 11-20-2024 inject 5 mg by subcu taneous injection [...] time per week. 2 mL 10/11/2024 Active valproate (Depacon) 500 mg i n sodium [...] without status migrainosus] Onset: 05-16-2015 05-16-2015 Chronic Hepatitis (1 source) Nonalcoholic steatohepatitis (RETANA); Translations: [Nonalcoholic steatohepatitis (RETANA)] Onset: 01-17-2025 Chronic Immunizations and screening for infectious disease [...] 2018 01-15-2020 Chronic Other aftercare (2 sources) access rn (current) use of insulin; Translations: [jail (current) use of insulin] Onset: 2018 Episodic [...] (HCC)] Onset: 11-11-2023 Chronic Other liver diseases (2 sources) Unspecified cirrhosis of liver; Translations: [Unspecified cirrhosis of liver] Onset: 12-29-2024 Chronic Other lower respiratory disease (1 source) [...] Onset: 12-19-2024 Episodic Phlebitis; thrombophlebitis and thromboembolism (12 sources) Portal vein thrombosis; Translations: [Portal vein thrombosis] Onset: 11-16-2024 11-16-2024 Episodic Regional enteritis and ulcerative colitis (6 sources) Crohn's disease; Translations: [Crohn's disease, unspecified, without complications] Onset: 12-18-2024 01-08-2025 Chronic Residual codes; unclassified [...] and exposure - finding] Onset: 2018 Episodic Superficial injury; contusion (8 sources) Contusion of lower back; Translations: [Contusion of lower back and pelvis, initial encounter] Onset: 12-23-2024 12-23-2024 Episodic Syncope (2 sources) Near syncope; Translations: [Syncope and collapse] 02-13-2023 Episodic Unclassified (2 sources) Low back pain, unspecified; Translations: [Low back pain, unspecified] Onset: 11-08-2024 Unclassified (1 source) Elevation of levels of liver transaminase levels; Translations: [Elevation of levels of liver transaminase levels] Onset: 01-17-2025 Past or Other Problems Problem Classification Problem [...] Spondylosis; intervertebral disc disorders; other back problems (16 sources) Backache; Translations: [Dorsalgia, unspecified] Onset: 04-22-2023 [...] Test Name Value Interpretation Reference Range Facility CBC W/Diff, Automatedon 07-0 SMEAR COMMENT COMMENT [facility] Comment on above: Result Comment: YU HALEY. Performed By: #### L 100.0100, L500.4050 #### [facility] [address] [place], [address] PLT EST MKD DEC Normal ADEQ [facility] Comment on above: Performed By: #### L 100.0100, L500.4050 #### [facility] [address] [place], [address] Comprehensive Metabolic Prof ilon 01-17-2025 Albumin [Mass/Vol] 3.9 g/dL Normal 3.5-5.0 [facility] Comment on above: Performed By: #### L 100.0100, L500.4050 ####[facility] [address] [place], [address] Albumin/Globulin [Mass ratio] 1.2 {ratio} Normal 0.9-2.4 [facility] Comment on above: Performed By: #### L 100.0100, L500.4050 ####[facility] [address] [place], [address] ALK PHOS 80 U/L Normal 35-104 [facility] Comment on above: Performed By: #### L 100.0100, L500.4050 ####[facility] [address] [place], [address] ALT [Catalytic activity/Vol] 32 U/L Normal <=34 [facility] Comment on above: Performed By: #### L 100.0100, L500.4050 ####[facility] [address] [place], [address] AST [Catalytic activity/Vol] 37 U/L High <=31 [facility] Comment on above: Performed By: #### L 100.0100, L500.4050 ####[facility] [address] [place], [address] Bilirubin [Mass/Vol] 1.07 mg/dL Normal 0.00-1.30 [facility] Comment on above: Performed By: #### L 100.0100, L500.4050 ####[facility] [address] [place], [address] BUN/CRE 8.5 RATIO Low 10-20 [facility] Comment on above: Performed By: #### L 100.0100, L500.4050 ####[facility] [address] [place], [address] Calcium [Mass/Vol] 9.7 mg/dL Normal 7.6-11.0 [facility] Comment on above: Performed By: #### L 100.0100, L500.4050 ####[facility] [address] [place], [address] Chloride [Moles/Vol] 106 mmol/L Normal 98-108 [facility] Comment on above: Performed By: #### L 100.0100, L500.4050 ####[facility] [address] [place], [address] CO2 [Moles/Vol] 23.9 mmol/L Normal 21.0-32.0 [facility] Comment on above: Performed By: #### L 100.0100, L500.4050 ####[facility] [address] [place], [address] Creatinine [Mass/Vol] 1.21 mg/dL High 0.70-1.20 [facility] Comment on above: Performed By: #### L 100.0100, L500.4050 ####[facility] [address] [place], [address] GAP 12 Normal 5-15 [facility] Comment on above: Performed By: #### L 100.0100, L500.4050 ####[facility] [address] [place], [address] GFR/1.73 sq M.predicted among non-blacks MDRD (S/P/Bld) [Vol rate/Area] 52 mL/min/{1.73_m2} Low >60 [facility] Comment on above: Result Comment: mL/m in/1.73m2 CKD-EPI Creatinine Equation (2020) Performed By: #### L 100.0100, L500.4050 ####[facility] [address] [place], [address] Globulin (S) [Mass/Vol] 3.4 g/dL Normal 2.2-4.2 [facility] Comment on above: Performed By: #### L 100.0100, L500.4050 ####[facility] [address] [place], [address] Glucose [Mass/Vol] 121 mg/dL High 70-99 [facility] Comment on above: Performed By: #### L 100.0100, L500.4050 ####[facility] [address] [place], [address] Potassium [Moles/Vol] 4.0 mmol/L Normal 3.3-5.1 [facility] Comment on above: Performed By: #### L 100.0100, L500.4050 ####[facility] [address] [place], [address] Sodium [Moles/Vol] 141 mmol/L Normal 133-145 [facility] Comment on above: Performed By: #### L 100.0100, L500.4050 ####[facility] [address] [place], [address] T PROT 7.3 g/dL Normal 5.9-8.4 [facility] Comment on above: Performed By: #### L 100.0100, L500.4050 ####[facility] [address] [place], [address] Urea nitrogen [Mass/Vol] 10 mg/dL Normal 4-19 [facility] Comment on above: Performed By: #### L 100.0100, L500.4050 ####[facility] [address] [place], [address] Gastroenterology Visit Repor ton 01-17-2025 Gastroenterology Visit Report [facility] [address] [place] [address] OFFICE VISIT Date of Service: 01/17/25 MR#: [id number] Acct: [id number] Name: MELANIE CAREY Rep #: [id number] : 1965 Provider: CRISTY joshi Age/Sex: 59/F Location: [facility] Status: Signed Intake Vital Signs 01/12/25 08:49 01/16/25 14:03 01/17/25 13:22 Height 5 ft 5 in 5 ft 5 in 5 ft 5 in Weight: 268 lb 2 oz BMI 44.6 BP 134/85 H Respiration 18 Pulse 68 Temp 98.1 F Temp Source Temporal Pulse Oximetry (%) 95 Oxygen Delivery Method room air Intake Visit Reasons: FU PER DR BEACH Chief Complaint: Portal vein thrombosis [employer] Required: No Accompanied by: Is patient in pain?: Yes Allergies cat dander Allergy (Severe, Verified 01/17/25 13:13) Swelling lisinopril Adverse Reaction (Intermediate, Verified 01/17/25 13:13) edema and difficulty breathing Medications ???Medication ???Instructions ???Recorded ???Confirmed ???Type albuterol sulfate 90 mcg/actuation 2 puff inhalation Q6H PRN PRN 01/17/25 History aerosol inhaler Shortness Of Breath labetalol 100 mg tablet 100 mg PO BID 07/29/20 01/17/25 Hi story metformin 1,000 mg tablet 1,000 mg PO BIDCM 07/29/20 5 History bupropion HCl 300 mg 24 hr tablet, 300 mg PO QAM 30 days #30 tabs 0 02/01/23 01/17/25 Rx extended release buspirone 10 mg tablet 10 mg PO BID 10/31/24 01/17/25 His tory glimepiride 4 mg tablet 4 mg PO QAM 10/31/24 01/17/25 Hist ory lactulose 10 gram/15 mL oral 10 g (15 mL) PO QDAY 90 days 10/3101/17/25 Rx solution #1,350 mL mecobalamin (vitamin B12) 10,000 10,000 mcg IM QMONTH 10/31/24 0704/05 History mcg solution for injection rosuvastatin 5 mg tablet 5 mg PO QDAY 10/31/24 01/17/25 His tory apixaban 2.5 mg tablet (Eliquis) 2.5 mg PO BID #60 tabs 11/29/24 Rx ondansetron HCl 4 mg tablet 4 mg PO Q6H PRN nausea and 5 01/17/25 Rx vomiting #20 tabs pantoprazole 40 mg tablet,delayed 40 mg PO BID #60 tabs 12/14/24 Rx release rifaximin 550 mg tablet (Xifaxan) 550 mg PO BID 30 days #60 tabs 01/17/25 Rx spironolactone 25 mg tablet 12.5 mg (1/2 x 25 mg) PO DAILY 1 0 12/19/24 01/17/25 Rx month #30 tabs PFSH Medical History [...] does not use HPI HPI Chief Complaint: Portal vein thrombosis Details: MELANIE CAREY, is a 59 F who presents to the office today for 01/02/2025 OV (more content not included)... Normal [facility] 36on 01-14-2025 36 Reviewed chart. Refi ll appropriate. RX sent. [facility] Abdomen/Pelvis W IV Cont ONL Yon 01-12-2025 Abdomen/Pelvis W IV Cont ONLY [facility] Imaging Services [address] [place] [address] Abdomen/Pelvis W IV Cont ONLY MR#: [id number] Acct: [id number] Name: MELANIE CAREY Rep #: [id number] : 1965 F 59 From: [facility] Tavarez PCP: Dr. Gio Ricketts MD Status: REG ER Study: Abdomen/Pelvis W IV Cont ONLY Date of Exam: Exam# [id number] Ordering Dr: López Rea DO PROCEDURE: ABDOMEN/PELVIS W IV CONT ONLY 01/12/2025 REASON FOR EXAM: ABDOMINAL PAIN TECHNIQUE: ABDOMEN/PELVIS W IV CONT ONLY Coronal and Sagittal reconstruction series were provided. CONTRAST: 100 mL of Isovue 370 One or more dose reduction techniques were used (e.g., Automated exposure control, adjustment of the mA and/or kV according to patient size, use of iterative reconstruction technique. RADIATION DOSE SUMMARY: DLP: 1394 mGycm COMPARISON: 11/27/2024 FINDINGS: Limited sections of the lung bases demonstrate no focal pulmonary mass or consolidations. Left lower lobe subsegmental atelectasis Cirrhotic liver. Mild hepatic steatosis. Gallbladder is surgically removed. Extensive splenomegaly to 23.1 cm. Extensive paraesophageal and perigastric varices. Recanalized umbilical vein. Previously seen portal vein thrombosis is less conspicuous on current exam which may be due to technique or resolution. The pancreas and both adrenal glands demonstrate no acute findings The stomach is distended with residue. Scattered mild thickening of small-bowel loops may reflect enteritis. No bowel obstruction. The appendix is not clearly identified, although there are no secondary signs of appendicitis. No colonic obstruction. No free air. The kidneys are unremarkable. The urinary bladder is partially distended. The pelvic structures are intact. There is no solid pelvic mass. Prominent para-aortic lymph nodes measuring up to 1.3 x 1.0 cm best seen on series 2, image 53. The aorta and IVC demonstrate no acute findings. Mild atherosclerosis of the abdominal vasculature. Visualized osseous structures demonstrate no acute abnormality. Small umbilical hernia containing fluid. CT/Abdomen/Pelvis W IV Cont ONLY IMPRESSION: Cirrhotic liver with constellation of findings suggestive of portal hypertension. Previously seen portal vein thrombosis is less conspicuous on current exam which may be due to technique or interval resolution/near resolution. Again seen is prominent retroperitoneal lymph nodes. Scattered mild thickening of small-bowel loops may reflect enteritis. No bowel obstruction. Reading Location: [id number] CC: Dr. Gio Ricketts MD; Dr. López Rea DO Neck Band Setter: Signed Normal [facility] CBC W/Diff, Automatedon 07-0 PLT EST MKD DEC Normal ADEQ [facility] Comment on above: Order Comment: CRITI BUZZ VALUE CALLED TO NAE CARLSON 01/12/25 0956 Pat Coulter. RESULTS READ BACK BY SAME. Performed By: #### L 100.0100, L501.2450, L500.4050 #### [facility] [address] [place], [address] Comprehensive Metabolic Prof ilon 01-12-2025 Albumin [Mass/Vol] 3.9 g/dL Normal 3.5-5.0 [facility] Comment on above: Performed By: #### L 100.0100, L501.2450, L500.4050 #### [facility] [address] [place], [address] Albumin/Globulin [Mass ratio] 1.1 {ratio} Normal 0.9-2.4 [facility] Comment on above: Performed By: #### L 100.0100, L501.2450, L500.4050 #### [facility] [address] [place], [address] ALK PHOS 90 U/L Normal 35-104 [facility] Comment on above: Performed By: #### L 100.0100, L501.2450, L500.4050 #### [facility] [address] [place], [address] ALT [Catalytic activity/Vol] 42 U/L High <=34 [facility] Comment on above: Performed By: #### L 100.0100, L501.2450, L500.4050 #### [facility] [address] [place], [address] AST [Catalytic activity/Vol] 107 U/L High <=31 [facility] Comment on above: Performed By: #### L 100.0100, L501.2450, L500.4050 #### [facility] [address] [place], [address] Bilirubin [Mass/Vol] 1.29 mg/dL Normal 0.00-1.30 [facility] Comment on above: Performed By: #### L 100.0100, L501.2450, L500.4050 #### [facility] [address] [place], [address] BUN/CRE 11.6 RATIO Normal 10-20 [facility] Comment on above: Performed By: #### L 100.0100, L501.2450, L500.4050 #### [facility] [address] [place], [address] Calcium [Mass/Vol] 8.7 mg/dL Normal 7.6-11.0 [facility] Comment on above: Performed By: #### L 100.0100, L501.2450, L500.4050 #### [facility] [address] [place], [address] Chloride [Moles/Vol] 105 mmol/L Normal 98-108 [facility] Comment on above: Performed By: #### L 100.0100, L501.2450, L500.4050 #### [facility] [address] [place], [address] CO2 [Moles/Vol] 21.1 mmol/L Normal 21.0-32.0 [facility] Comment on above: Performed By: #### L 100.0100, L501.2450, L500.4050 #### [facility] [address] [place], [address] Creatinine [Mass/Vol] 1.28 mg/dL High 0.70-1.20 [facility] Comment on above: Performed By: #### L 100.0100, L501.2450, L500.4050 #### [facility] [address] [place], [address] ECRCL 62.85 ml/min Normal 50-250 [facility] Comment on above: Performed By: #### L 100.0100, L501.2450, L500.4050 #### [facility] [address] [place], [address] GAP 12 Normal 5-15 [facility] Comment on above: Performed By: #### L 100.0100, L501.2450, L500.4050 #### [facility] [address] [place], [address] GFR/1.73 sq M.predicted among non-blacks MDRD (S/P/Bld) [Vol rate/Area] 49 mL/min/{1.73_m2} Low >60 [facility] Comment on above: Result Comment: mL/m in/1.73m2 CKD-EPI Creatinine Equation (2020) Performed By: #### L 100.0100, L501.2450, L500.4050 #### [facility] [address] [place], [address] Globulin (S) [Mass/Vol] 3.4 g/dL Normal 2.2-4.2 [facility] Comment on above: Performed By: #### L 100.0100, L501.2450, L500.4050 #### [facility] [address] [place], [address] Glucose [Mass/Vol] 321 mg/dL High 70-99 [facility] Comment on above: Performed By: #### L 100.0100, L501.2450, L500.4050 #### [facility] [address] [place], [address] Potassium [Moles/Vol] 4.2 mmol/L Normal 3.3-5.1 [facility] Comment on above: Performed By: #### L 100.0100, L501.2450, L500.4050 #### [facility] [address] [place], [address] Sodium [Moles/Vol] 138 mmol/L Normal 133-145 [facility] Comment on above: Performed By: #### L 100.0100, L501.2450, L500.4050 #### [facility] [address] [place], [address] T PROT 7.2 g/dL Normal 5.9-8.4 [facility] Comment on above: Performed By: #### L 100.0100, L501.2450, L500.4050 #### [facility] [address] [place], [address] Urea nitrogen [Mass/Vol] 15 mg/dL Normal 4-19 [facility] Comment on above: Performed By: #### L 100.0100, L501.2450, L500.4050 #### [facility] [address] [place], [address] Emergency Department Summary on 01-12-2025 Emergency Department Summary [facility] Medical Records Department [address] [place] [address] Emergency Department Summary 01/12/25 MR#: [id number] Acct: [id number] Name: MELANIE CAREY Rep #: [id number] : 1965 59 From: López Rea DO PCP: Dr. Gio Ricketts MD Status:DEP ER Location: ED HPI HPI - GI History of Present Illness Chief Complaint: Abd Pain Informant: patient Abdominal Pain/Flank Pain Onset: Weeks Context: Gradual Onset Timing: Intermittent (But more frequent) Quality: - (Pulling) Location: RUQ and RLQ Worsened by: - (Palpation) Relieved by: Nothing Nausea/Vomiting/Emesis GI Symptom: Positive for Nausea; Negative for Vomiting Diarrhea/Melena/Hematochez ia GI Symptom: Positive for Diarrhea; Negative for Melena or Hematochezia Associated Symptoms Associated Symptoms: Negative for Dysuria, Frequency or Hematuria Narrative Narrative: Patient presents with abdominal pain that has been getting worse over the past week. Patient states it is gradually getting worse. Patient states is not intermittent but her pain is getting more frequent. Patient describes it as a pulling sensation. Patient states it is mainly over the right side of her abdomen. Patient states it is worse with palpation. Patient states nothing makes it better. Patient admits to some nausea but denies any vomiting. Patient admits to some diarrhea but denies any melena or hematochezia. Patient denies any dysuria, frequency, or hematuria. [facility] Medical History Arthritis Anemia High cholesterol History [...] 10/31/24 12/17/24 His tory tirzepatide 5 mg/0.5 mL 5 mg subcut QWEEK 10/31/24 5 History subcutaneous pen injector (Mounjaro) apixaban 2.5 mg tablet (Eliquis) 2.5 mg PO BID #60 tabs 11/29/24 Rx ondansetron HCl 4 mg tablet 4 mg PO Q6H PRN nausea and 5 12/16/24 Rx vomiting #20 tabs pantoprazole 40 mg tablet,delayed 40 mg PO BID #60 tabs 12/14/24 Rx release rifaximin 550 mg tablet (Xifaxan) 550 mg PO BID 30 days #60 tabs Unknown Rx spironolactone 25 mg tablet 12.5 mg (1/2 x 25 mg) PO DAILY 1 0 12/19/24 Unknown Rx month #30 tabs Allergy/AdvReac Type Severity Reaction Status Date / Time cat dander Allergy Severe Swelling Verified 01/12/25 08:49 lisinopril AdvReac Intermediate edema and Verified 01/12/25 08:49 difficulty breathing Family History (Reviewed 01/02/25 (more content not included)... Normal [facility] Lipaseon 01-12-2025 Lipase [Catalytic activity/Vol] 52 U/L Normal 13-75 [facility] Comment on above: Result Comment: Adrián shaw note: LIPASE revised reference range effective 22. New Lipase methodology. Expected to produce lower values than the previous assay method. NEW Reference Range: 13 - 75 U/L Performed By: #### L 100.0100, L501.2450, L500.4050 #### [facility] [address] [place], [address] Urinalysis, Completeon 01-12 EPI,SQUAMOUS 0-5 SEEN Normal 5-10 [facility] Comment on above: Order Comment: CLEAN CATCH Performed By: #### L 400.0001 #### [facility] [address] [place], [address] BACTERIA 0 SEEN Normal None Seen [facility] Comment on above: Order Comment: CLEAN CATCH Performed By: #### L 400.0001 #### [facility] [address] [place], [address] Mucus Ql (Urine sed) 0 SEEN Normal [facility] Comment on above: Order Comment: CLEAN CATCH Performed By: #### L 400.0001 #### [facility] [address] [place], [address] RBC 0 SEEN Normal 0-5 [facility] Comment on above: Order Comment: CLEAN CATCH Performed By: #### L 400.0001 #### [facility] [address] [place], [address] WBC 0 SEEN Normal 0-5 [facility] Comment on above: Order Comment: CLEAN CATCH Performed By: #### L 400.0001 #### [facility] [address] [place], [address] 36on 01-09-2025 36 Please see if we can get her in earlier for her annual physical/ER follow up Normal [facility] AMMONIAon 01-09-2025 Ammonia (P) [Moles/Vol] 43 umol/L Normal 18-72 [facility] Comment on above: Performed By: #### L [id number] ####Amphibious Operations Officer: AMNAN ARANDA ([id number])[facility] ([facility])[address] [place] [address] CBC W Auto Differential pane l (Bld)Ordered By: Preeti Olivo on 01-09-2025 Erythrocyte distribution width (RBC) [Ratio] 15.6 % High 11.5 - 15.0 % [facility] Hematocrit (Bld) [Volume fraction] 38.2 % 35.0 - 47.0 % [facility] Hemoglobin (Bld) [Mass/Vol] 12.4 g/dL 11.7 - 16.0 g/dL [facility] Interpretation and review of laboratory results Abnormal [facility] IPF 4 [facility] MCH (RBC) [Entitic mass] 27.2 pg 26.0 - 34.0 pg [facility] MCHC (RBC) [Mass/Vol] 32.5 % 30.5 - 36.0 % [facility] MCV (RBC) [Entitic vol] 83.8 fL 77.0 - 99.0 fL [facility] Platelet mean volume (Bld) [Entitic vol] 11.2 fL 9.0 - 12.7 fL [facility] Platelets (Bld) [#/Vol] 61 10*3/uL Low 140 - 440 10*3/uL [facility] RBC (Bld) [#/Vol] 4.56 10*6/uL 3.80 - 5.2 0 10*6/uL [facility] WBC (Bld) [#/Vol] 6.3 10*3/uL 3.6 - 10.7 10*3/uL [facility] CBC WITH AUTO DIFFERENTIALon 01-09-2025 Erythrocyte distribution width (RBC) [Ratio] 15.6 % High 11.5-15.0 [facility] Comment on above: Performed By: #### L [id number], [id number] #### Amphibious Operations Officer: MANAN ARANDA ([id number]) [facility] ([facility]) [address] [place] [address] Hematocrit (Bld) [Volume fraction] 38.2 % Normal 35.0-47.0 [facility] Comment on above: Performed By: #### L [id number], [id number] #### Amphibious Operations Officer: MANAN ARANDA ([phone]) [facility] ([facility]) [address] Hemoglobin (Bld) [Mass/Vol] 12.4 g/dL Normal 11.7-16.0 [facility] Comment on above: Performed By: #### L [id number], [id number] #### Amphibious Operations Officer: MANAN [phone]) [facility] ([facility]) [address] [place] [address] [place] IPF 4 Normal [facility] Comment on above: Performed By: #### L [id number], [id number] #### Amphibious Operations Officer: MANAN ARANDA ([id number]) [facility] ([facility]) [address] MCH (RBC) [Entitic mass] 27.2 pg Normal 26.0-34.0 [facility] Comment on above: Performed By: #### L [id number], [id number] #### Amphibious Operations Officer: MANAN ARANDA ([id number]) [facility] ([facility]) [address] MCHC 32.5 % Normal 30.5-36.0 [facility] Comment on above: Performed By: #### L [id number], [id number] #### Amphibious Operations Officer: MANAN ARANDA ([id number]) [facility] ([facility]) [address] MCV (RBC) [Entitic vol] 83.8 fL Normal 77.0-99.0 [facility] Comment on above: Performed By: #### L [id number], [id number] #### Amphibious Operations Officer: MANAN ARANDA ([id number]) [facility] ([facility]) [address] Platelet mean volume (Bld) [Entitic vol] 11.2 fL Normal 9.0-12.7 [facility] Comment on above: Performed By: #### L [id number], [id number] #### Amphibious Operations Officer: MANAN ARANDA ([id number]) [facility] ([facility]) [address] Platelets (Bld) [#/Vol] 61 10*3/uL Low 140-440 [facility] Comment on above: Performed By: #### L [id number], [id number] #### Amphibious Operations Officer: MANAN ARANDA ([id number]) [facility] ([facility]) [address] RBC (Bld) [#/Vol] 4.56 10*6/uL Normal 3.80-5.20 [facility] Comment on above: Performed By: #### L [id number], [id number] #### Amphibious Operations Officer: MANAN ARANDA ([id number]) [facility] ([facility]) [address] WBC (Bld) [#/Vol] 6.3 10*3/uL Normal 3.6-10.7 [facility] Comment on above: Performed By: #### L [id number], [id number] #### Amphibious Operations Officer: MANAN ARANDA ([id number]) [facility] [address] [place] [address] COMPREHENSIVE METABOLIC PANE Rigoberto 01-09-2025 Albumin [Mass/Vol] 3.5 g/dL Normal 3.5-5.0 [facility] Comment on above: Performed By: #### L [id number] ####Amphibious Operations Officer: MANAN ARANDA ([phone])[facility] ALP [Catalytic activity/Vol] 77 U/L Normal 40-150 [facility] Comment on above: Performed By: #### L [id number] ####Amphibious Operations Officer: MANAN ARANDA ([phone])[facility] ([facility])[address] ALT [Catalytic activity/Vol] 23 U/L Normal <30 [facility] Comment on above: Performed By: #### L [id number] ####Amphibious Operations Officer: MANAN ARANDA ([id number])[facility] ([facility])[address] [place] [address] Anion gap [Moles/Vol] 12 mmol/L Normal 3-13 [facility] Comment on above: Performed By: #### L [id number] ####Amphibious Operations Officer: MANAN ARANDA ([id number])[facility] ([facility])[address] AST [Catalytic activity/Vol] 75 U/L High <34 [facility] Comment on above: Performed By: #### L [id number] ####Amphibious Operations Officer: MANAN ARANDA ([id number])[facility] ([facility])[address] Bilirubin [Mass/Vol] 2.2 mg/dL High <1.2 [facility] Comment on above: Performed By: #### L [id number] ####Amphibious Operations Officer: MANAN ARANDA ([id number])[facility] ([facility])[address] Calcium [Mass/Vol] 9.1 mg/dL Normal 8.4-10.2 [facility] Comment on above: Performed By: #### L [id number] ####Amphibious Operations Officer: MANAN ARANDA ([id number])[facility] ([facility])[address] Chloride [Moles/Vol] 108 mmol/L High 98-107 [facility] Comment on above: Performed By: #### L [id number] ####Amphibious Operations Officer: MANAN ARANDA ([phone])[facility] ([facility])[address] CO2 [Moles/Vol] 18 mmol/L Low 22-29 [facility] Comment on above: Performed By: #### L [id number] ####Amphibious Operations Officer: MANAN ARANDA ([id number])[facility] [place] ([facility])[address] Creatinine [Mass/Vol] 1.75 mg/dL High 0.57-1.11 [facility] Comment on above: Performed By: #### L [id number] ####Amphibious Operations Officer: MANAN ARANDA ([id number])[facility] [place] ([facility])[address] GLOMERULAR FILTRATION RATE ML/MIN/1.73 SQ M.PREDICTED 33.6 mL/min/1.73m*2 Low >60.0 [facility] Comment on above: Result Comment: Calc ulation based on the Chronic Kidney Disease Epidemiology Collaboration (CKD-EPI) equation refit without adjustment for race Performed By: #### L [id number] ####Amphibious Operations Officer: MANAN ARANDA ([id number])[facility] ([facility])[address] Glucose [Mass/Vol] 162 mg/dL High 74-100 [facility] Comment on above: Performed By: #### L [id number] ####Amphibious Operations Officer: MANAN ARANDA ([id number])[facility] ([facility])[address] Potassium [Moles/Vol] 4.3 mmol/L Normal 3.5-5.1 [facility] Comment on above: Result Comment: [facility] potassium values may be up to 0.5 mmol/L lower than serum values. Performed By: #### L [id number] ####Amphibious Operations Officer: MANAN ARANDA ([phone])[facility] ([facility])[address] [place] [address] Protein [Mass/Vol] 7.2 g/dL Normal 6.4-8.3 [facility] Comment on above: Performed By: #### L [id number] ####Amphibious Operations Officer: MANAN ARANDA ([phone])[facility] ([facility])[address] Sodium [Moles/Vol] 138 mmol/L Normal 136-145 [facility] Comment on above: Performed By: #### L [id number] ####Amphibious Operations Officer: MANAN ARANDA ([id number])[facility] ([facility])[address] Urea nitrogen [Mass/Vol] 24 mg/dL High 9-23 [facility] Comment on above: Performed By: #### L [id number] ####Amphibious Operations Officer: MANAN ARANDA ([id number])[facility] ([facility])[address] [place] [address] CT HEAD WO IV CONTRASTon CT HEAD WO IV CONTRAST Patient Name: MELANIE CAREY : 1965 [facility]#: [id number] Exam Date/Time: 01/09/2025 00:32 Procedure: CT HEAD WO IV CONTRAST Ordering Provider: ESPITIA MICHAEL Reason For Exam: Dizziness, persistent/recurrent, cardiac or vascular cause suspected EXAMINATION: CT HEAD WO IV CONTRAST HISTORY: Dizziness, persistent/recurrent, cardiac or vascular cause suspected - - - - - [id number] - - - - multiple falls over [...] orbits and extracranial soft tissues are unremarkable. Doorshaker (topogram) images: ASPECTS SCORE: 10 IMPRESSION: No CT evidence of an acute intracranial abnormality. Report Dictated on Electronically Signed By: Ray Moe MD Electronically Signed Date/Time: 01/09/2025 1:01 AM EDT Multiple falls, hasn't been feeling like herself x 3 days Normal [facility] CT Head WO contraston [address] evidence of an acute intracranial abnormality. Report Dictated on Electronically Signed By: Ray Moe MD Electronically Signed Date/Time: 01/09/2025 1:01 AM EDT [facility] Patient Name: [facility] : 1965 [id number] Exam Date/Time: 01/09/2025 00:32 Procedure: CT HEAD WO IV CONTRAST Ordering Provider: ESPITIA MICHAEL Reason For Exam: Dizziness, persistent/recurrent, cardiac or vascular cause suspected EXAMINATION: CT HEAD WO IV CONTRAST HISTORY: Dizziness, persistent/recurrent, cardiac or vascular cause suspected - - - - - [id number] - - - - multiple falls over [...] orbits and extracranial soft tissues are unremarkable. Doorshaker (topogram) images: ASPECTS SCORE: 10 [facility] Ray Moe MD - 01/09/2025 Patient Name: MELANIE CAREY : 1965 Exam Date/Time: 01/09/2025 00:32 Procedure: CT HEAD WO IV CONTRAST Ordering Provider: ESPITIA MICHAEL Reason For Exam: Dizziness, persistent/recurrent, cardiac or vascular cause suspected EXAMINATION: CT HEAD WO IV CONTRAST HISTORY: Dizziness, persistent/recurrent, cardiac or vascular cause suspected - - - - - [id number] - - - - multiple falls over [...] orbits and extracranial soft tissues are unremarkable. Doorshaker (topogram) images: ASPECTS SCORE: 10 IMPRESSION: No CT evidence of an acute intracranial abnormality. Report Dictated on Electronically Signed By: Ray Moe MD Electronically Signed Date/Time: 01/09/2025 1:01 AM EDT [facility] Radiology Study observation (narrative) [facility] CT Head WO contrastOrdered B y: Ray Moe on 01-09-2025 [facility] Work Phone: Comprehensive metabolic 1998 panelon 01-09-2025 Albumin [Mass/Vol] 3.5 g/dL 3.5 - 5.0 g/dL [facility] ALP [Catalytic activity/Vol] 77 U/L 40 - 150 U/L [facility] ALT [Catalytic activity/Vol] 23 U/L NINF - 30 U/L [facility] Anion gap [Moles/Vol] 12 mmol/L 3 - 13 mmol/L [facility] AST [Catalytic activity/Vol] 75 U/L High NINF - 34 U/L [facility] Bilirubin [Mass/Vol] 2.2 mg/dL High [facility] mg/dL [facility] Calcium [Mass/Vol] 9.1 mg/dL 8.4 - 10. 2 mg/dL [facility] Chloride [Moles/Vol] 108 mmol/L High 98 - 10 7 mmol/L [facility] CO2 [Moles/Vol] 18 mmol/L Low 22 - 29 mmol/L [facility] Creatinine [Mass/Vol] 1.75 mg/dL High 0.57 - 1.11 mg/dL [facility] GFR/1.73 sq M.predicted (S/P/Bld) [Vol rate/Area] 33.6 mL/min Low - PINF [facility] Comment on above: Calculation based on the Chronic Kidney Disease Epidemiology Collaboration (CKD-EPI) equation refit without adjustment for race Glucose [Mass/Vol] 162 mg/dL High 74 - 100 mg/dL [facility] Interpretation and review of laboratory results Abnormal [facility] Potassium [Moles/Vol] 4.3 mmol/L 3.5 - 5.1 mmol/L [facility] Comment on above: Plasma potassium chelsy ues may be up to 0.5 mmol/L lower than serum values. Protein [Mass/Vol] 7.2 g/dL 6.4 - 8.3 g/dL [facility] Sodium [Moles/Vol] 138 mmol/L 136 - 145 mmol/L [facility] Urea nitrogen [Mass/Vol] 24 mg/dL High 9 - 23 mg/dL [facility] ECG 12-LEADon 01-09-2025 ECG 12-LEAD IMPRESSION: Sinus rhythm RBBB and LAFB Electronically Signed On 01-09-2025 00:48:11 [address] Ray Espitia [facility] ED Provider Noteon ED Provider Note EMERGENCY DEPARTMENT ENCOUNTER Pt Name: Raiza Carey Birthdate 1965 Date of evaluation: 01/09/2025 ED Provider: Clayton Doe APRN - LINE WORKER I have evaluated this patient on my [...] ML BY MOUTH ONCE DAILY CONTINUOUS GLUCOSE MUCKER COFFERDAM (FREESTYLE ADIEL 3 READER) DEVICE Check blood [...] 2 times daily (with meals). NYSTATIN (MYCOSTATIN) 980732 UNIT/GM POWDER Apply topically 2 times daily. ONDANSETRON (ZOFRAN) 4 MG TABLET Take 4 mg by mouth every 6 hours as needed for nausea or vomiting. PANTOPRAZOLE (PROTONIX) 40 MG EC TABLET Take 40 mg by mouth every morning (before breakfast). PEG 5638-TPZ-IFMID-NACL-NASULF (PEG-3350/ELECTROLYTES) 236 G RECONSTITUTED SOLUTION DRINK 240 [...] Head: Normoceph (more content not included)... Normal [facility] LACTIC ACID WITH REFLEXon Lactate [Moles/Vol] 1.2 mmol/L Normal 0.5-2.2 [facility] Comment on above: Performed By: #### L [id number] ####Amphibious Operations Officer: MANAN ARANDA ([phone])[facility] ([facility] [place] [address] Laboratory - Chemistry and C hemistry - challengeon 01-09-2025 Lactate [Moles/Vol] 1.2 mmol/L 0.5 - 2. 2 mmol/L [facility] Ammonia (P) [Moles/Vol] 43 umol/L 18 - 72 umol/L [facility] Laboratory - Hematology and Cell countson 01-09-2025 Band form neutrophils (Bld) [#/Vol] 0.4 10*3/uL High NINF - 0.0 10*3/uL [facility] Band form neutrophils/100 WBC (Bld) 6 % High NINF - 0 % [facility] Lymphocytes (Bld) [#/Vol] 0.8 10*3/uL Low 1.0 - 4.3 10*3/uL [facility] Lymphocytes/100 WBC (Bld) 13 % Low 15 - 45 % [facility] Monocytes (Bld) [#/Vol] 0.4 10*3/uL 0.0 - 0.9 10*3/uL [facility] Monocytes/100 WBC (Bld) 7 % 5 - 13 % [facility] Neutrophils (Bld) [#/Vol] 5 10*3/uL 1.8 - 7.5 10*3/uL [facility] Ovalocytes LM Ql (Bld) Slight Abnormal (none) [facility] Poikilocytosis LM Ql (Bld) Slight Abnormal (none) [facility] Polychromasia LM Ql (Bld) Slight Abnormal (none) [facility] RBC morphology finding Nom (Bld) abnormal [facility] Segmented neutrophils/100 WBC (Bld) 74 % 38 - 82 % [facility] MANUAL DIFFERENTIAL (CELLAVI YASIR)on 01-09-2025 BAND NEUTROPHILS TOTAL PER COUNTED LEUKOCYTES BY MANUAL COUNT 6 Normal [facility] Comment on above: Performed By: #### L [id number], [id number] #### Amphibious Operations Officer: MANAN ARANDA ([phone]) [facility] ([facility]) [address] [place], [place] [id number] [place] [address] BANDS (10*3/UL) IN BLOOD-CELLAVISION 0.4 10*3/uL High <=0.0 [facility] Comment on above: Performed By: #### L [id number], [id number] #### Amphibious Operations Officer: MANAN ARANDA ([phone]) [facility] ([facility]) [address] [place] [address] [place] BASOPHILS TOTAL PER COUNTED LEUKOCYTES BY MANUAL COUNT [facility] Comment on above: Performed By: #### L [id number], [id number] #### Amphibious Operations Officer: MANAN ARANDA ([phone]) [facility] [place] ([facility]) [address] [place] [address] [place] BLASTS TOTAL PER COUNTED LEUKOCYTES BY MANUAL COUNT Normal [facility] Comment on above: Performed By: #### L [id number], [id number] #### Amphibious Operations Officer: MANAN ARANDA ([phone]) [facility] [place] ([facility]) [address] [place] [address] [place] EOSINOPHILS TOTAL PER COUNTED LEUKOCYTES BY MANUAL COUNT [facility] Comment on above: Performed By: #### L [id number], [id number] #### Amphibious Operations Officer: MANAN ARANDA ([phone]) [facility] [place] ([facility]) [address] [place] [address] [place] LYMPHOCYTES (10*3/UL) IN BLOOD-CELLAVISION 0.8 10*3/uL Low 1.0-4.3 [facility] Comment on above: Performed By: #### L [id number], [id number] #### Amphibious Operations Officer: MANAN ARANDA ([phone]) [facility] [place] ([facility]) [address] [place] [address] [place] LYMPHOCYTES TOTAL PER COUNTED LEUKOCYTES BY MANUAL COUNT 13 Normal [facility] Comment on above: Performed By: #### L [id number], [id number] #### Amphibious Operations Officer: MANAN ARANDA ([phone]) [facility] [place] ([facility]) [address] [place] [address] [place] LYMPHOCYTES/100 LEUKOCYTES IN BLOOD-CELLAVISION 13 % Low 15-45 [facility] Comment on above: Performed By: #### L [id number], [id number] #### Amphibious Operations Officer: MANAN ARANDA ([phone]) [facility] [place] ([facility]) [address] [place] [address] [place] METAMYELOCYTES TOTAL PER COUNTED LEUKOCYTES BY MANUAL COUNT Normal [facility] Comment on above: Performed By: #### L [id number], [id number] #### Amphibious Operations Officer: MANAN ARANDA ([phone]) [facility] [place] ([facility]) [address] [place] [address] [place] MONOCYTES (10*3/UL) IN BLOOD-CELLAVISION 0.4 10*3/uL Normal 0.0-0.9 [facility] Comment on above: Performed By: #### L [id number], [id number] #### Amphibious Operations Officer: MANAN ARANDA ([phone]) [facility] [place] ([facility]) [address] [place] [address] [place] MONOCYTES TOTAL PER COUNTED LEUKOCYTES BY MANUAL COUNT 7 Normal [facility] Comment on above: Performed By: #### L [id number], [id number] #### Amphibious Operations Officer: MANAN ARANDA ([phone]) [facility] [facility] [place] ([facility]) [address] [place] [address] [place] MONOCYTES/100 LEUKOCYTES IN BLOOD-KG 7 % Normal 5-13 [facility] Comment on above: Performed By: #### L [id number], [id number] #### Amphibious Operations Officer: MANAN ARANDA ([phone]) [facility] [place] ([facility]) [address] [place] [address] [place] MYELOCYTES COUNTED BY MANUAL COUNT Normal [facility] Comment on above: Performed By: #### L [id number], [id number] #### Amphibious Operations Officer: MNAAN ARANDA ([phone]) [facility] [place] ([facility]) [address] [place] [address] [place] NEUTROPHILS BAND FORM/100 LEUKOCYTES IN BLOOD-CELLAVISI 6 % High <=0 [facility] Comment on above: Performed By: #### L [id number], [id number] #### Amphibious Operations Officer: MANAN ARANDA ([phone]) [facility] [place] ([facility]) [address] [place] [address] [place] NEUTROPHILS TOTAL PER COUNTED LEUKOCYTES BY MANUAL COUNT 75 Normal [facility] Comment on above: Performed By: #### L [id number], [id number] #### Amphibious Operations Officer: MANAN ARANDA ([phone]) [facility] [address] OVALOCYTES PRESENCE IN BLOOD BY LIGHT MICROSCOPY Slight Abnormal (none) [facility] Comment on above: Performed By: #### L [id number], [id number] #### Amphibious Operations Officer: MANAN ARANDA ([phone]) [facility] [address] POIKILOCYTOSIS (PRESENCE) IN BLOOD BY LIGHT MICROSCOPY Slight Abnormal (none) [facility] Comment on above: Performed By: #### L [id number], [id number] #### Amphibious Operations Officer: MANAN ARANDA ([phone]) [facility] ([facility] [place] [facility]) [address] [place] [address] POLYCHROMASIA IN BLOOD BY LIGHT MICROSCOPY Slight Abnormal (none) [facility] Comment on above: Performed By: #### L [id number], [id number] #### Amphibious Operations Officer: MANAN ARANDA ([phone]) [facility] ([facility] [place] [facility]) [address] [place] [address] [place] PROMYELOCYTES TOTAL PER COUNTED LEUKOCYTES BY MANUAL COUNT Normal [facility] Comment on above: Performed By: #### L [id number], [id number] #### Amphibious Operations Officer: MANAN ARANDA ([phone]) [facility] ([facility] [place] [facility]) [address] [place] [address] [place] RBC MORPHOLOGY IN BLOOD abnormal Normal [facility] Comment on above: Performed By: #### L [id number], [id number] #### Amphibious Operations Officer: MANAN ARANDA ([id number]) [facility] ([facility]) [address] [place] [address] [place] SEGMENTED NEUTROPHILS (10*3/UL) IN BLOOD-CELLAVISION 5.0 10*3/uL Normal 1.8-7.5 [facility] Comment on above: Performed By: #### L [id number], [id number] #### Amphibious Operations Officer: MANAN ARANDA ([phone]) [facility] ([facility]) [address] SEGMENTED NEUTROPHILS/100 LEUKOCYTES-CE 74 % Normal 38-82 [facility] Comment on above: Performed By: #### L [id number], [id number] #### Amphibious Operations Officer: MANAN ARANDA ([id number]) [facility] ([facility]) [address] UNCLASSIFIED CELLS TOTAL PER COUNTED LEUKOCYTES BY MANUAL COUNT Normal [facility] Comment on above: Performed By: #### L [id number], [id number] #### Amphibious Operations Officer: MANAN ARANDA ([phone]) [facility] ([facility]) [address] VARIANT LYMPHOCYTES TOTAL PER COUNTED LEUKOCYTES BY MANUAL COUNT Normal [facility] Comment on above: Performed By: #### L [id number], [id number] #### Amphibious Operations Officer: MANAN ARANDA ([phone]) [facility] [address] No Panel Informationon 01-09 Mild lumbar [...] Electronically Signed Date/Time: 01/09/2025 9:32 PM EDT [facility] Atypical Lymphocytes Manual [facility] Bands Manual 6 [facility] Basophils Manual [facility] Blasts Manual [facility] Eosinophils Manual [facility] Interpretation and review of laboratory results Abnormal [facility] Lymphocytes Manual 13 [facility] Metamyelocytes Manual [facility] Monocytes Manual 7 [facility] Myelocytes Manual [facility] Neutrophils Manual 75 [facility] Promyelocytes Manual [facility] Unclassified Cells, Manual [facility] Interpretation and review of laboratory results Normal [facility] Interpretation and review of laboratory results Normal [facility] P Renovo 52 degrees [facility] CO Interval 186 ms [facility] QRS Renovo -97 degrees [facility] QRSD Interval 139 ms [facility] QT Interval 401 ms [facility] QTC Interval 511 ms [facility] T Wave Renovo 23 degrees [facility] Sinus rhythm RBBB and LAFB Electronically Signed On 01-09-2025 00:48:11 EDT by Ray Espitia Ray Calderon MD - 01/09/2025 IMPRESSION: Sinus rhythm RBBB and LAFB Electronically Signed On 01-09-2025 00:48:11 EDT by Ray Espitia [facility] No Panel InformationOrdered By: Yogesh Gonzalez on 01-09-2025 [facility] Work Phone: Vital signson 01-09-2025 Heart rate 97 /min bpm [facility] XR Lumbar spine 2 or 3 Views [...] joints are unremarkable. Vascular calcifications are present. [facility] Yogesh Gonzalez MD - 01/09/2025 [...] Electronically Signed Date/Time: 01/09/2025 9:32 PM EDT [facility] Radiology Study observation (narrative) [facility] XR Pelvis 1 or 2 Viewson Patient [...] joints are unremarkable. Vascular calcifications are present. [facility] Yogesh Gonzalez MD - 01/09/2025 [...] Electronically Signed Date/Time: 01/09/2025 9:32 PM EDT [facility] Radiology Study observation (narrative) [facility] XR Sacrum and Coccyx 2 Views on [...] joints are unremarkable. Vascular calcifications are present. [facility] Yogesh Gonzalez MD - 01/09/2025 [...] Electronically Signed Date/Time: 01/09/2025 9:32 PM EDT [facility] Radiology Study observation (narrative) [facility] ED Provider Noteon ED Provider Note EMERGENCY [...] states that she has been referred to [facility] for this. She does not have an [...] ML BY MOUTH ONCE DAILY CONTINUOUS GLUCOSE MUCKER COFFERDAM (FREESTYLE ADIEL 3 READER) DEVICE Check blood [...] 2 times daily (with meals). NYSTATIN (MYCOSTATIN) 310398 UNIT/GM POWDER Apply topically 2 times daily. ONDANSETRON (ZOFRAN) 4 MG TABLET Take 4 mg by mouth every 6 hours as needed for nausea or vomiting. PANTOPRAZOLE (PROTONIX) 40 MG EC TABLET Take 40 mg by mouth every morning (before breakfast). PEG 2336-ACJ-DCLIC-NACL-NASULF (PEG-3350/ELECTROLYTES) 236 G RECONSTITUTED SOLUTION DRINK 240 [...] Normal r (more content not included)... Normal [facility] Gastroenterology Visit Repor ton 01-02-2025 Gastroenterology Visit Report [facility] Gastroenterology [address] [place] [address] OFFICE VISIT Date of Service: 01/02/25 MR#: [id number] Acct: [id number] Name: MELANIE CAREY Rep #: [id number] : 1965 Provider: Dr. Stanley tavarez MD Age/Sex: 59/F Location: [facility] Status: Signed Intake Vital Signs 11/15/24 09:05 [...] Asthma Osteoporosis Respiratory disease Social History ... [facility] 01-01-2025 [address] [facility] 12-31-2024 36 Patient is calling b isabella she has had 2 nosebleeds recently. She is prescribed Eliquis 2.5 mg twice daily by Dr. Castro, her GI physician in [place]. I advised her to call him for [...] Protocols used: Information Only Call - No [id number] Normal [facility] 36on 12-25-2024 36 Reviewed chart. Refi ll appropriate. RX sent. [facility] 36 Prescription Request : Last medication check: 10/24/2024 Last physical exam: none Next scheduled appointment: 01/09/2025 Last date of refill on this medication: 10/24/2024 *Has never had a physical, changed appointment on 01/09 to a Physical.* [facility] CT LUMBAR SPINE WO IV CONTRA STon 12-23-2024 CT LUMBAR SPINE WO IV CONTRAST Patient Name: MELANIE CAREY : 1965 Exam [...] no LOC, did not hit head. Normal [facility] CT Lumbar spine WO contrasto n 12-23-2024 [...] Electronically Signed Date/Time: 12/23/2024 12:55 PM EDT [facility] Patient Name: MELANIE CAREY : [...] 1.3 cm on series 4, image 118. [facility] Roberto Gonzáles MD - 12/23/2024 Patient Name: [facility]ELAN[facility]Y : 1965 [id number] Exam Date/Time: 12/23/2024 12:08 Procedure: CT LUMBAR [...] Electronically Signed Date/Time: 12/23/2024 12:55 PM EDT [facility] Radiology Study observation (narrative) [facility] [employer] CT Lumbar spine WO contrastO rdered By: Roberto Gonzáles on 12-23-2024 [facility] [employer] Work Phone: ED Provider Noteon ED Provider [...] is limited as what she can take uavy-czg-ordzsyc for pain. Has not had any numbness, [...] MOUTH ONCE DAILY, Historical Med Continuous Glucose Pt Sitter (FreeStyle Adiel 3 [place]) device Check blood sugar 2-4 times daily., Normal Continuous Glucose Sensor (FreeStyle Adiel 3 Sensor) misc every 14 (fourteen) days., Starting Wed12/11/2024, Normal Cyanocobalamin (B-12 Compliance Injection) 1000 MCG/ML kit Inject 1 ml (1000mcg) subcutaneous weekly x 4 then monthly, Normal glimepiride (Amaryl) 4 MG tablet Take 1 tablet (4 mg) by mouth daily (with breakfast)., Starting Wed10/31/2024, Normal HYDROcodone-acetaminophen ([place]) 5-325 MG tablet TAKE 1 TABLET BY [...] (with meals)., Starting Wed10/31/2024, Normal nystatin (Mycostatin) 227054 UNIT/GM powder Apply topically 2 times daily., [...] bruising. Bite symm (more content not included)... [facility] 36on 12-22-2024 36 Called patient to [facility] her scheduled. Was not able to get a hold of patient but had a cancellation and put them in it. Advised to call back if they can not make it. [facility] Progress Noteon 12-21-2024 Progress Note Chart reviewed of ED follow up Seen in [facility] ED on 12/19/24 Reason: Skin tag S/P skin biopsy Discharge instructions: Follow up with PCP in 1 week for suture removal (3) I am calling from Gio Ricketts MD's office, following up after your recent ED visit. Please call the office so we can schedule a follow up appointment. If patient calls back, please assist with scheduling a ED follow up appointment. [facility] 36on 12-19-2024 36 Okay, thank you [facility] 36 S: Patient spoke wit h CAC nurse regarding Skin tag issue B: Onset [...] Protocols used: Skin Lesion - Moles or [id number]-MRCHI [facility] ED Nursing Noteon 12-19-2024 ED Nursing Note Pt presents to er fr om home for skin tag under her left breast.pt states there is skin missing, its preston, red and seeping. Normal [facility] ED Nursing Note Pt presents to er fr om home for skin tag under her left breast.pt states there is skin missing, its preston, red and seeping. Normal [facility] ED Provider Noteon ED Provider Note [...] MOUTH ONCE DAILY, Historical Med Continuous Glucose Pt Sitter (FreeStyle Adile 3 [place]) device Check blood sugar 2-4 times daily., Normal Continuous Glucose Sensor (FreeStyle Adiel 3 Sensor) misc every 14 (fourteen) days., Starting Wed12/11/2024, Normal Cyanocobalamin (B-12 Compliance Injection) 1000 MCG/ML kit Inject 1 ml (1000mcg) subcutaneous weekly x 4 then monthly, Normal glimepiride (Amaryl) 4 MG tablet Take 1 tablet (4 mg) by mouth daily (with breakfast)., Starting Wed10/31/2024, Normal HYDROcodone-acetaminophen ([place]) 5-325 MG tablet TAKE 1 TABLET BY [...] (with meals)., Starting Wed10/31/2024, Normal nystatin (Mycostatin) 660221 UNIT/GM powder Apply topically 2 times daily., [...] Weight: 123 (more content not included)... Normal [facility] Gastroenterology Visit Repor ton 12-19-2024 Gastroenterology Visit Report [facility] Gastroenterology [address] [place] [address] OFFICE VISIT Date of Service: 12/19/24 MR#: [id number] Acct: [id number] Name: MELANIE CAREY Rep #: [id number] : 1965 Provider: Dr. Stanley tavarez MD Age/Sex: 59/F Location: [facility] Status: Signed Intake Vital Signs 12/18/24 06:41 [...] @ 10:3 (more content not included)... Normal [facility] No Panel Informationon 12-19 Amber Holley DO [...] documented as signed by this procedure note Global Sourcing Manager(s): N/A No supervision required [facility] Bedside Glucoseon 12-18-2024 FINGERSTICK GLU 136 mg/dL High 74-106 [facility] Comment on above: Result Comment: ANUSHKA CHAVEZ OF PATIENT CARE PER NURSING PROTOCOL Performed By: #### L 501.080 ####[facility] [id number] [facility] [place], [address] Colonoscopy Reporton 025 Colonoscopy Report [facility] Medical Records Department [address] [place] [address] Colonoscopy Report MR#: [id number] Acct: [id number] Name: MELANIE CAREY Rep #: [id number] : 1965 59 From: Hugo Pierre DO PCP: Dr. Gio Ricketts MD Status:[facility] Patient Name: eMlanie Carey Procedure Date: 12/18/2024 7:26 AM Date [...] for surveillance. Procedure Code(s): --- Professional --- 71289, Colonoscopy, flexible; with biopsy, single or multiple CPT copyright 2021 [employer]. All rights reserved. The codes documented in this report are preliminary and upon clinical coder review may be revised to meet current compliance requirements. Hugo Pierre DO 12/18/2024 8:33:46 AM This report has been signed electronically. Number of Addenda: 0 Note Initiated On: 12/18/2024 7:26 AM 12/18/24 0834 Date Hugo Pierre DO Cosigner Signature: Date (if indicated) CC: Dr. Gio Ricketts MD; Hugo Pierre DO Date Dictated: 12/18/24725 Date Transcribed: Neck Band Setter: GABRIELLE Signed Normal [facility] EGD Reporton 12-18-2024 EGD Report [facility] Medical Records Department [address] [place] [address] EGD Report MR#: [id number] Acct: [id number] Name: MELANIE CAREY Rep #: [id number] : 1965 59 From: Hugo Pierre DO PCP: Dr. Gio Ricketts MD Status:REG [facility] Patient Name: Melanie Carey Procedure Date: 12/18/2024 [...] band ligation. Procedure Code(s): --- Professional --- 40719, Small intestinal endoscopy, enteroscopy beyond second portion of duodenum, not including ileum; with biopsy, single or multiple CPT copyright 2021 [employer]. All rights reserved. The codes documented in this report are preliminary and upon clinical coder review may be revised to meet current compliance requirements. Hugo Pierre DO 12/18/2024 8:30:24 AM This report has been signed electronically. Number of Addenda: 0 Note Initiated On: 12/18/2024 7:14 AM 12/18/24 0830 Date Hugo Pierre DO Cosigner Signature: Date (if indicated) CC: Dr. Gio Ricketts MD; Hugo Pierre DO Date Dictated: 12/18/24 0714 Date Transcribed: Neck Band Setter: GABRIELLE Signed Normal [facility] Immunohistochemical Stainson 12-18-2024 Immunohistochemical Stains Patient Age/Sex Location Account Attending Physician MELANIE CAREY 59/F EN [id number] Hugo Pierre DO Specimen: [id number] Received: 12/18/24 Status: WANG Mejia Num: [id number] Spec Type: COLON BX Subm Dr: Hugo [...] developed and their performance characteristics determined by [facility] Laboratory. They may not have been cleared [...] totally submitted in one cassette. / 12/18/2024 [facility]:[id number] Patient Age/Sex Location Account Attending Physician MELANIE CAREY 59/F EN [id number] Hugo Pierre, DO Signed (signature on file) Dr. Lito Monique MD 12/21/24 1318 Normal [facility] Comment on above: Performed By: #### L 400.0001 #### [facility] Laboratory [address] [place], [place], [address] MR/POSTOP.Margarette 12-18-2024 MR/POSTOP.[facility] Medical Records Department [address] [place] [address] Anesthesia Postop Eval I 12/18/24 0749 MR#: [id number] Acct: [id number] Name: MELANIE CAREY Rep #: [id number] : 1965 59 From: Joe Granda PCP: Dr. Gio Ricketts MD Status:REG SDC Y Race: C Location: [place] [address] Anesthesia: Postop Eval I Current Vital Signs [...] document: Postop Eval 1 completed: Yes 12/18/24 075 Date Joe Coronel Signature: Date CC: Signed Normal [facility] MR/[id number] 12-18-2024 MR/POSTOPAN2 [facility] Medical Records Department [address] [facility] [place] [address] Anesthesia Postop Eval II 12/18/24 08 MR#: [id number] Acct: [id number] Name: MELANIE CAREY Rep #: [id number] : 1965 59 From: Daniel Merida MD PCP: Dr. Gio Ricketts MD Status:REG [facility] Y Race: C Location: [place] [address] Anesthesia Postop Eval I Sum Postop Eval [...] Pain Level: 0 nausea: No Vomiting: No 06/04/05 802 Date Daniel Coronel Signature: Date CC: Signed Normal [facility] L501.5101on 12-17-2024 GGTP 66 IU/L Abnormal 0-60 [facility] Comment on above: Result Comment: Perf ormed at: [facility] [address] [id number] Security Program Manager: Iván Smith PhD, Phone: [phone] Performed By: #### L 100.0100, L501.2450, L500.4050 #### [facility] [address] [place], [address] CBC W/Diff, Automatedon Absolute Lymph 0.58 X10 3/uL Low 0.83-4.51 [facility] Comment on above: Performed By: #### L 100.0100, L501.2450, L500.4050 #### [facility] [address] [place], [address] Absolute Neut 2.7 X10 3/uL Normal 2.0-7.7 [facility] Comment on above: Performed By: #### L 100.0100, L501.2450, L500.4050 #### [facility] [address] [place], [address] Basophils/100 WBC (Bld) 0.3 % Normal 0-1 [facility] Comment on above: Performed By: #### L 100.0100, L501.2450, L500.4050 #### [facility] [address] [place], [address] Eosinophils/100 WBC (Bld) 0.0 % Normal 0-5 [facility] Comment on above: Performed By: #### L 100.0100, L501.2450, L500.4050 #### [facility] [address] [place], [address] Erythrocyte distribution width (RBC) [Ratio] 15.8 % High 11.6-14.6 [facility] Comment on above: Performed By: #### L 100.0100, L501.2450, L500.4050 #### [facility] [address] [place], [address] Hematocrit (Bld) [Volume fraction] 34.7 % Low 37-47 [facility] Comment on above: Performed By: #### L 100.0100, L501.2450, L500.4050 #### [facility] [address] [place], [address] Hemoglobin (Bld) [Mass/Vol] 11.6 g/dL Low 12.0-15.0 [facility] Comment on above: Performed By: #### L 100.0100, L501.2450, L500.4050 #### [facility] [address] [place], [address] IG% 0.300 Normal 0.0-0.9 [facility] Comment on above: Result Comment: IG% - Immature Granulocytes (promyelocytes, myelocytes and metamyelocytes) > 1% indicates that a LEFT SHIFT is Present. Performed By: #### L 100.0100, L501.2450, L500.4050 #### [facility] [address] [place], [address] Lymphocytes/100 WBC (Bld) 16.0 % Low 19-41 [facility] Comment on above: Performed By: #### L 100.0100, L501.2450, L500.4050 #### [facility] [address] [place], [address] MCH (RBC) [Entitic mass] 28.0 pg Normal 27.0-32.0 [facility] Comment on above: Performed By: #### L 100.0100, L501.2450, L500.4050 #### [facility] [address] [place], [address] MCHC (RBC) [Mass/Vol] 33.4 g/dL Normal 32-36 [facility] Comment on above: Performed By: #### L 100.0100, L501.2450, L500.4050 #### [facility] [address] [place], [address] MCV (RBC) [Entitic vol] 83.8 fL Normal 81-99 [facility] Comment on above: Performed By: #### L 100.0100, L501.2450, L500.4050 #### [facility] [address] [place], [address] Monocytes/100 WBC (Bld) 9.1 % Normal 0-10 [facility] Comment on above: Performed By: #### L 100.0100, L501.2450, L500.4050 #### [facility] [address] [place], [address] Neutrophils/100 WBC (Bld) 74.3 % High 47-70 [facility] Comment on above: Performed By: #### L 100.0100, L501.2450, L500.4050 #### [facility] [address] [place], [address] Nucleated RBC (Bld) [#/Vol] 0 10*3/uL Normal 0-5 [facility] Comment on above: Performed By: #### L 100.0100, L501.2450, L500.4050 #### [facility] [address] [place], [address] Platelet mean volume (Bld) [Entitic vol] 11.3 fL Normal 6.2-12.0 [facility] Comment on above: Performed By: #### L 100.0100, L501.2450, L500.4050 #### [facility] [address] [place], [address] Platelets (Bld) [#/Vol] 52 10*3/uL Low 150-450 [facility] Comment on above: Performed By: #### L 100.0100, L501.2450, L500.4050 #### [facility] [address] [place], [address] RBC (Bld) [#/Vol] 4.14 10*6/uL Low 4.2-5.4 [facility] Comment on above: Performed By: #### L 100.0100, L501.2450, L500.4050 #### [facility] [address] [place], [address] RDW SD 47.7 fl High 35.1-43.9 [facility] Comment on above: Performed By: #### L 100.0100, L501.2450, L500.4050 #### [facility] [address] [place], [address] WBC (Bld) [#/Vol] 3.6 10*3/uL Low 4.4-11.0 [facility] Comment on above: Performed By: #### L 100.0100, L501.2450, L500.4050 #### [facility] [address] [place], [address] MR/Jared 12-14-2024 MR/BJ [facility] Medical Records Department [address] [place] [address] PAT - Anesthesia 12/14/24 1519 MR#: [id number] Acct: [id number] Name: MELANIE CAREY Rep #: [id number] : 1965 59 From: Raymond Garrett MD PCP: Dr. Gio Ricketts MD Status:PRE SDC Y Race: C Location: EN Pre-Assessment Diagnosis/Proposed Procedure Planned Operative Procedure(s): EGD, CSCOPE Anesthesia History Anesthesia History - last repairer: Anesthesia History - last repairer Hx Hospitalization No 12/14/24 10:48 Any Problems [...] take am of surgery PONV PONV - last repairer: PONV - last repairer Female Yes 12/14/24 10:48 HX of Motion [...] 11/15/24 09:05 Respiratory Assessment Respiratory Assessment - last repairer: Respiratory Tract Infection Hx - last repairer Hx Respiratory Tract Infection No 12/14/24 10:48 STOP Sleep Apnea STOP Sleep Apnea - last repairer: STOP Sleep Apnea - last repairer Hx Hypertension No 12/14/24 10:48 Hx Sleep [...] Tobacco Use History Tobacco Use History - last repairer: Tobacco Use History - last repairer Tobacco Use Smoking Status Former smoker 12/14/24 10:48 Hx Tobacco Use No 12/14/24 10:48 Years Smoking Packs Smoked per Day Smoking Cessation Date was No - quit smoking greater 12/14/24 10:48 within the last 15 years than 15 years ago Hx Smoking Cessation Date 07/12/06 12/14/24 10:48 Hx Smoking Cessation No 12/14/24 10:48 Counseling Hematologic Medial History Hematologic Hx - last repairer: Hematologic Medical Hx - striker out Hx of Blood Transfusion No 12/14/24 10:48 [...] confused, unrespo /Reproduction History /Reproductive History - last repairer: /Reproductive Hx- last repairer Hx Now No 12/14/24 10:48 Gestational Age [...] Contact with and (more content not included)... [facility] [id number] 12-13-2024 [id number] Called and spoke johny Espinosa at [facility]. It appears that the PA was going through 360 days instead of 365. Francisca was able to get it to go through at no cost. Patient called and notified that it was all taken care of and should be able to go pick it up at [facility]. [facility] 36on 12-13-2024 36 I am honestly [...] the reader covered by her insurance. [facility] [id number] 12-12-2024 [id number] Please update RX. [facility] [id number] 12-11-2024 [id number] Thank you for verify ing. Rx sent for the [email or web address] adiel 3 reader as well as sensors to the requested pharmacy. [facility] [phone] Pended. [facility] 12-11-2024 36 Please verify with Binh basurto the exact brand of freestyle she is needing me to send. I want to make sure I send in the correct item for her. Thank you. [facility] Basic Metabolic Profile (BMP )on 12-08-2024 BUN/CRE 14.0 RATIO Normal 10-20 [facility] Comment on above: Performed By: #### L 100.0100, L501.2450, L500.4050 #### [facility] [address] [place], [address] Calcium [Mass/Vol] 9.7 mg/dL Normal 7.6-11.0 [facility] Comment on above: Performed By: #### L 100.0100, L501.2450, L500.4050 #### [facility] [address] [place], [address] Chloride [Moles/Vol] 100 mmol/L Normal 98-108 [facility] Comment on above: Performed By: #### L 100.0100, L501.2450, L500.4050 #### [facility] [address] [place], [address] CO2 [Moles/Vol] 23.9 mmol/L Normal 21.0-32.0 [facility] Comment on above: Performed By: #### L 100.0100, L501.2450, L500.4050 #### [facility] [address] [place], [address] Creatinine [Mass/Vol] 1.12 mg/dL Normal 0.70-1.20 [facility] Comment on above: Performed By: #### L 100.0100, L501.2450, L500.4050 #### [facility] [address] [place], [address] GAP 10 Normal 5-15 [facility] Comment on above: Performed By: #### L 100.0100, L501.2450, L500.4050 #### [facility] [address] [place], [address] GFR/1.73 sq M.predicted among non-blacks MDRD (S/P/Bld) [Vol rate/Area] 57 mL/min/{1.73_m2} Low >60 [facility] Comment on above: Result Comment: mL/m in/1.73m2 CKD-EPI Creatinine Equation (2020) Performed By: #### L 100.0100, L501.2450, L500.4050 #### [facility] [address] [place], [address] Glucose [Mass/Vol] 272 mg/dL High 70-99 [facility] Comment on above: Performed By: #### L 100.0100, L501.2450, L500.4050 #### [facility] [address] [place], [address] Potassium [Moles/Vol] 4.8 mmol/L Normal 3.3-5.1 [facility] Comment on above: Performed By: #### L 100.0100, L501.2450, L500.4050 #### [facility] [address] [place], [address] Sodium [Moles/Vol] 135 mmol/L Normal 133-145 [facility] Comment on above: Performed By: #### L 100.0100, L501.2450, L500.4050 #### [facility] [address] [place], [address] Urea nitrogen [Mass/Vol] 16 mg/dL Normal 4-19 [facility] Comment on above: Performed By: #### L 100.0100, L501.2450, L500.4050 #### [facility] [address] [place], [address] CBC W/Diff, Automatedon 05-3 0-2025 Absolute Lymph 0.55 X10 3/uL Low 0.83-4.51 [facility] Comment on above: Performed By: #### L 100.0100, L501.2450, L500.4050 #### [facility] [address] [place], [address] Absolute Neut 2.4 X10 3/uL Normal 2.0-7.7 [facility] Comment on above: Performed By: #### L 100.0100, L501.2450, L500.4050 #### [facility] [address] [place], [address] Basophils/100 WBC (Bld) 0.3 % Normal 0-1 [facility] Comment on above: Performed By: #### L 100.0100, L501.2450, L500.4050 #### [facility] [address] [place], [address] Eosinophils/100 WBC (Bld) 0.0 % Normal 0-5 [facility] Comment on above: Performed By: #### L 100.0100, L501.2450, L500.4050 #### [facility] [address] [place], [address] Erythrocyte distribution width (RBC) [Ratio] 15.3 % High 11.6-14.6 [facility] Comment on above: Performed By: #### L 100.0100, L501.2450, L500.4050 #### [facility] [address] [place], [address] Hematocrit (Bld) [Volume fraction] 37.3 % Normal 37-47 [facility] Comment on above: Performed By: #### L 100.0100, L501.2450, L500.4050 #### [facility] [address] [place], [address] Hemoglobin (Bld) [Mass/Vol] 12.2 g/dL Normal 12.0-15.0 [facility] Comment on above: Performed By: #### L 100.0100, L501.2450, L500.4050 #### [facility] [address] [place], [address] IG% 0.300 Normal 0.0-0.9 [facility] Comment on above: Result Comment: IG% - Immature Granulocytes (promyelocytes, myelocytes and metamyelocytes) > 1% indicates that a LEFT SHIFT is Present. Performed By: #### L 100.0100, L501.2450, L500.4050 #### [facility] [address] [place], [address] Lymphocytes/100 WBC (Bld) 16.4 % Low 19-41 [facility] Comment on above: Performed By: #### L 100.0100, L501.2450, L500.4050 #### [facility] [address] [place], [address] MCH (RBC) [Entitic mass] 27.9 pg Normal 27.0-32.0 [facility] Comment on above: Performed By: #### L 100.0100, L501.2450, L500.4050 #### [facility] [address] [place], [address] MCHC (RBC) [Mass/Vol] 32.7 g/dL Normal 32-36 [facility] Comment on above: Performed By: #### L 100.0100, L501.2450, L500.4050 #### [facility] [address] [place], [address] MCV (RBC) [Entitic vol] 85.4 fL Normal 81-99 [facility] Comment on above: Performed By: #### L 100.0100, L501.2450, L500.4050 #### [facility] [address] [place], [address] Monocytes/100 WBC (Bld) 10.7 % High 0-10 [facility] Comment on above: Performed By: #### L 100.0100, L501.2450, L500.4050 #### [facility] [address] [place], [address] Neutrophils/100 WBC (Bld) 72.3 % High 47-70 [facility] Comment on above: Performed By: #### L 100.0100, L501.2450, L500.4050 #### [facility] [address] [place], [address] Nucleated RBC (Bld) [#/Vol] 0 10*3/uL Normal 0-5 [facility] Comment on above: Performed By: #### L 100.0100, L501.2450, L500.4050 #### [facility] [address] [place], [address] Platelet mean volume (Bld) [Entitic vol] 10.9 fL Normal 6.2-12.0 [facility] Comment on above: Performed By: #### L 100.0100, L501.2450, L500.4050 #### [facility] [address] [place], [address] Platelets (Bld) [#/Vol] 51 10*3/uL Low 150-450 [facility] Comment on above: Performed By: #### L 100.0100, L501.2450, L500.4050 #### [facility] [address] [place], [address] RBC (Bld) [#/Vol] 4.37 10*6/uL Normal 4.2-5.4 [facility] Comment on above: Performed By: #### L 100.0100, L501.2450, L500.4050 #### [facility] [address] [place], [address] RDW SD 47.3 fl High 35.1-43.9 [facility] Comment on above: Performed By: #### L 100.0100, L501.2450, L500.4050 #### [facility] [address] [place], [address] WBC (Bld) [#/Vol] 3.4 10*3/uL Low 4.4-11.0 [facility] Comment on above: Performed By: #### L 100.0100, L501.2450, L500.4050 #### [facility] [address] [place], [address] Liver Profileon 12-08-2024 Albumin [Mass/Vol] 4.0 g/dL Normal 3.5-5.0 [facility] Comment on above: Performed By: #### L 100.0100, L501.2450, L500.4050 #### [facility] [address] [place], [address] ALK PHOS 116 U/L High 35-104 [facility] Comment on above: Performed By: #### L 100.0100, L501.2450, L500.4050 #### [facility] [address] [place], [address] ALT [Catalytic activity/Vol] 26 U/L Normal <=34 [facility] Comment on above: Performed By: #### L 100.0100, L501.2450, L500.4050 #### [facility] [address] [place], [address] AST [Catalytic activity/Vol] 32 U/L Normal <=31 [facility] Comment on above: Performed By: #### L 100.0100, L501.2450, L500.4050 #### [facility] [address] [place], [address] Bilirubin [Mass/Vol] 1.03 mg/dL Normal 0.00-1.30 [facility] Comment on above: Performed By: #### L 100.0100, L501.2450, L500.4050 #### [facility] [address] [place], [address] Bilirubin.direct [Mass/Vol] 0.40 mg/dL High 0.00-0.30 [facility] Comment on above: Performed By: #### L 100.0100, L501.2450, L500.4050 #### [facility] [address] [place], [address] Globulin (S) [Mass/Vol] 3.6 g/dL Normal 2.2-4.2 [facility] Comment on above: Performed By: #### L 100.0100, L501.2450, L500.4050 #### [facility] [address] [place], [address] T PROT 7.6 g/dL Normal 5.9-8.4 [facility] Comment on above: Performed By: #### L 100.0100, L501.2450, L500.4050 #### [facility] [address] [place], [address] CBC W/Diff, Automatedon 05- PLT EST SLT DEC Normal ADEQ [facility] Comment on above: Performed By: #### L 500.3400, L100.0100 #### [facility] [address] [place], [address] SMEAR COMMENT Normal [facility] Comment on above: Result Comment: LYMP HOPENIA Performed By: #### L 500.3400, L100.0100 #### [facility] [address] [place], [address] Liver Profileon 11-29-2024 Albumin [Mass/Vol] 3.8 g/dL Normal 3.5-5.0 [facility] Comment on above: Performed By: #### L 500.3400, L100.0100 #### [facility] [address] [place], [address] ALK PHOS 120 U/L High 35-104 [facility] Comment on above: Performed By: #### L 500.3400, L100.0100 #### [facility] [address] [place], [address] ALT [Catalytic activity/Vol] 25 U/L Normal <=34 [facility] Comment on above: Performed By: #### L 500.3400, L100.0100 #### [facility] [address] [place], [address] AST [Catalytic activity/Vol] 27 U/L Normal <=31 [facility] Comment on above: Performed By: #### L 500.3400, L100.0100 #### [facility] [address] [place], [address] Bilirubin [Mass/Vol] 0.84 mg/dL Normal 0.00-1.30 [facility] Comment on above: Performed By: #### L 500.3400, L100.0100 #### [facility] [address] [place], [address] Bilirubin.direct [Mass/Vol] 0.37 mg/dL High 0.00-0.30 [facility] Comment on above: Performed By: #### L 500.3400, L100.0100 #### [facility] [address] [place], [address] Globulin (S) [Mass/Vol] 3.6 g/dL Normal 2.2-4.2 [facility] Comment on above: Performed By: #### L 500.3400, L100.0100 #### [facility] [address] [place], [address] T PROT 7.4 g/dL Normal 5.9-8.4 [facility] Comment on above: Performed By: #### L 500.3400, L100.0100 #### [facility] [address] [place], [address] CTA Abdomen W/WO Contraston 11-27-2024 CTA Abdomen W/WO Contrast [facility] Imaging Services [address] [place] [address] CTA Abdomen W/WO Contrast MR#: [id number] Acct: [id number] Name: MELANIE CAREY Rep #: [id number] : 1965 F 59 From: Addi Liao MD PCP: Dr. Gio Ricketts MD Status: DEP CLI Study: CTA Abdomen W/WO Contrast Date of Exam: Exam# [id number] Ordering Dr: Deisi Nath ADDENDUM by Dr. [...] Reading Location: [facility] CC: CRISTY Nath; Dr. Gio Ricketts MD Neck Band Setter: Signed Normal [facility] Urgent Care Visit Reporton 0 11-25-2024 Urgent Care Visit Report [facility] [address], [address] [place] [address] OFFICE VISIT Date of Service: 11/25/24 MR#: [id number] Acct: [id number] Name: MELANIE CAREY Rep #: [id number] : 1965 Provider: HERMES Pereira Age/Sex: 59/F Location: [facility] Status: Signed Intake Vital Signs 11/15/24 09:05 [...] gland under her jaw line is swollen. [facility] Medical History (Updated 11/25/24 @ 11:47 by [...] F who (more content not included)... Normal [facility] 36on 11-20-2024 36 Prescription Request : Mounjaro 5 MG/0.5ML Subcutaneous Solution Pen-injector Last medication check: 10/24/24 Last physical exam: none Next scheduled appointment: 01/09/25 Last date of refill on this medication 10/11/24 ( qty 2ml refill 0) Normal [facility] 36on 11-16-2024 36 I don't have anythin g that I did not disclose . Normal [facility] Oncology Visit Reporton Oncology Visit Report [facility] [place] [address] OFFICE VISIT Date of Service: 11/15/24854 MR#: [id number] Acct: [id number] Name: MELANIE CAREY Rep #: [id number] : 1965 From: Rosales Oviedo MD Age/Sex: 59/F Location: [facility] Status: Signed HPI Subjective Date of Service [...] recommended. She subsequently went and saw a health education specialist at [facility] who suggested a bone marrow biopsy but it was never done. In October 2024 she was seen by gastroenterology in [facility] for complicated liver cirrhosis and an [...] paraesophageal varices. She was referred back to [place] [facility] for reconsultation since she did not wish to go back to [facility]. 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 Normal [facility] Abdomen Limitedon 11-10-2024 Abdomen Limited [facility] Imaging Services [address], [place] [address] Abdomen Limited MR#: [id number] Acct: [id number] Name: MELANIE CAREY Rep #: [id number] : 1965 F 59 From: Paul Gutierrez MD PCP: Dr. Gio Ricketts MD Status: REG CLI Study: Abdomen Limited Date of Exam: 11/10/24 Exam# [id number] Ordering Dr: Deisi Nath RUNNER MAN- C PROCEDURE: ABDOMEN LIMITED 11/10/2024 REASON FOR [...] x 8.4 x 7.3 cm. Reading Location: [id number] CC: CRISTY Nath; Dr. Gio Ricketts MD Neck Band Setter: Signed Normal [facility] Inital Evaluation (1) - PTon 11-06-2024 Inital Evaluation (1) - PT [facility] Physical Therapy [facility] [address] [place] [address] [address] [place] [address] / REHABILITATION SERVICES INITIAL EVALUATION MR#: [id number] Acct: [id number] Name: MELANIE CAREY Rep #: [id number] : 1965 59 From: Jayshree Fish PT. MDT Referring Dr.: Dr. Robles Ricketts MD Status: RE G RCR Insurance: [employer] INSURANCE Patient's Visit Information Visit Information Visit Information: MELANIE CAREY is a 59 year old F referred to Physical Therapy by Dr. Robles Ricketts MD with a diagnosis of LOW BACK PAIN AND R HIP OA. Date of Evaluation: 11/06/24 Physical Therapist: Melany Wright PT Cert MDT Visit Plan Frequency: 2x /Week [...] INSTRUCTION. Subjective Subjective: Work/Leisure: PATIENT WORKS FOR [employer] IN [facility] SHE IS UP AND DOWN THROUGHOUT THE DAY. [employer]ACH[employer]. Disability: NO Present symptoms: BABS LOW BACK [...] DEMONSTRATE IMPROV (more content not included)... Normal [facility] RORY w/ Reflex Mult Confirmon 11-03-2024 ANTI-DNA (DS)AB TNP Normal [facility] [facility] Comment on above: Performed By: #### L 803.2200, L3100.0300, L503.6030, L3890.6102, L503.0106, L800.1280, L3890.6202, L500.3400, L100.0100, L300.3900, L3100.5450, L3300.0700, L3890.6301, L3100.0460, L503.6550, L500.2500 ####[facility] [address] [place], [address] ANTI-CHUCKY-1 TNP Normal [facility] Comment on above: Performed By: #### L 803.2200, L3100.0300, L503.6030, L3890.6102, L503.0106, L800.1280, L3890.6202, L500.3400, L100.0100, L300.3900, L3100.5450, L3300.0700, L3890.6301, L3100.0460, L503.6550, L500.2500 ####[facility] [address] [place], [address] ANTI-SS-A TNP Normal [facility] Comment on above: Performed By: #### L 803.2200, L3100.0300, L503.6030, L3890.6102, L503.0106, L800.1280, L3890.6202, L500.3400, L100.0100, L300.3900, L3100.5450, L3300.0700, L3890.6301, L3100.0460, L503.6550, L500.2500 ####[facility] [address] [place], [address] AFP, Tumor Markeron 11-03-19 AFP TUMOR DWAYNE 2.3 ng/mL Normal 0.0-9.2 [facility] Comment on above: Order Comment: N Result Comment: [employer] Electrochemiluminescence Immunoassay (ECLIA) Values obtained with different assay methods or kits cannot be used interchangeably. Results cannot be interpreted as absolute evidence of the presence or absence of malignant disease. This test is not interpretable in females. Performed By: #### L 803.2200, L3100.0300, L503.6030, L3890.6102, L503.0106, L800.1280, L3890.6202, L500.3400, L100.0100, L300.3900, L3100.5450, L3300.0700, L3890.6301, L3100.0460, L503.6550, L500.2500 ####[facility] [address] [place], [place], [phone] Anti-Mitochondrial ABon - ANTIMITOCHON AB <20.0 Normal 0.0-20.0 [facility] Comment on above: Result Comment: Nega tive 0.0 - 20.0 Equivocal 20.1 - 24.9 Positive >24.9 Mitochondrial (M2) Antibodies are found in 90-96% of patients with primary biliary cirrhosis. Performed By: #### L 803.2200, L3100.0300, L503.6030, L3890.6102, L503.0106, L800.1280, L3890.6202, L500.3400, L100.0100, L300.3900, L3100.5450, L3300.0700, L3890.6301, L3100.0460, L503.6550, L500.2500 ####[facility] [address] [place], [place], [phone] Anti-Smooth Muscle ABSon ANTISMOOTH MUSC 18 Units Normal 0-19 [facility] Comment on above: Result Comment: Nega tive 0 - 19 Weak positive 20 - 30 Moderate to strong positive >30 Actin Antibodies are found in 52-85% of patients with autoimmune hepatitis or chronic active hepatitis and in 22% of patients with primary biliary cirrhosis. Performed By: #### L 803.2200, L3100.0300, L503.6030, L3890.6102, L503.0106, L800.1280, L3890.6202, L500.3400, L100.0100, L300.3900, L3100.5450, L3300.0700, L3890.6301, L3100.0460, L503.6550, L500.2500 ####[facility] [address] [place], [address] Hepatitis A AB, Totalon 10-11 HEPATITIS A,TOT Positive Abnormal Negative [facility] Comment on above: Result Comment: Comm ent: The HAV total antibody assay detects both IgG and IgM but does not differentiate between them. A negative result suggests susceptibility to infection. A positive result could be due to vaccination, previously resolved infection or active infection. Testing for HAV IgM should be performed if active HAV infection is suspected. [employer] offers profiles that will automatically reflex positive HAV total antibody results to IgM (e.g., panel #[id number] HAV Antibody w/ Rfx). Performed at: [facility] [employer] [id number] Security Program Manager: Iván Smith PhD, Phone: [phone] Performed By: #### L 803.2200, L3100.0300, L503.6030, L3890.6102, L503.0106, L800.1280, L3890.6202, L500.3400, L100.0100, L300.3900, L3100.5450, L3300.0700, L3890.6301, L3100.0460, L503.6550, L500.2500 ####[facility] [address] [facility] [place], [address] Hepatitis B Core Ab Totalon 11-02-2024 HEP B CORE,TOT Negative Normal Negative [facility] Comment on above: Performed By: #### L 803.2200, L3100.0300, L503.6030, L3890.6102, L503.0106, L800.1280, L3890.6202, L500.3400, L100.0100, L300.3900, L3100.5450, L3300.0700, L3890.6301, L3100.0460, L503.6550, L500.2500 ####[facility] [address] [place], [address] 36on 11-01-2024 36 Called m for pt to call or check Jesus Albertot. [employer] messaged pt Dr. Ricketts's message. Normal [facility] 36on 10-31-2024 36 Rx sent, I changed glimepiride to a 4 mg tablet so she does not need to take 2 of those, it looks like all the other changes she was talking about was already done, Lantus was not sent it was just sent in last week. Normal [facility] 36 Prescription Request : metFORMIN (Glucophage) [...] 10/24/24 (no qty or refills listed) Normal [facility] Basic Metabolic Profile (BMP )on 10-31-2024 BUN/CRE 15.2 RATIO Normal - [facility] Comment on above: Performed By: #### L 803.2200, L3100.0300, L503.6030, L3890.6102, L503.0106, L800.1280, L3890.6202, L500.3400, L100.0100, L300.3900, L3100.5450, L3300.0700, L3890.6301, L3100.0460, L503.6550, L500.2500 ####[facility] [address] [place], [address] Calcium [Mass/Vol] 9.5 mg/dL Normal 7.6-11.0 [facility] Comment on above: Performed By: #### L 803.2200, L3100.0300, L503.6030, L3890.6102, L503.0106, L800.1280, L3890.6202, L500.3400, L100.0100, L300.3900, L3100.5450, L3300.0700, L3890.6301, L3100.0460, L503.6550, L500.2500 ####[facility] [address] [place], [place], [phone] Chloride [Moles/Vol] 100 mmol/L Normal 98-108 [facility] Comment on above: Performed By: #### L 803.2200, L3100.0300, L503.6030, L3890.6102, L503.0106, L800.1280, L3890.6202, L500.3400, L100.0100, L300.3900, L3100.5450, L3300.0700, L3890.6301, L3100.0460, L503.6550, L500.2500 ####[facility] [address] [place], [place], [phone] CO2 [Moles/Vol] 23.0 mmol/L Normal 21.0-32.0 [facility] Comment on above: Performed By: #### L 803.2200, L3100.0300, L503.6030, L3890.6102, L503.0106, L800.1280, L3890.6202, L500.3400, L100.0100, L300.3900, L3100.5450, L3300.0700, L3890.6301, L3100.0460, L503.6550, L500.2500 ####[facility] [address] [place], [place], [phone] Creatinine [Mass/Vol] 1.23 mg/dL High 0.70-1.20 [facility] Comment on above: Performed By: #### L 803.2200, L3100.0300, L503.6030, L3890.6102, L503.0106, L800.1280, L3890.6202, L500.3400, L100.0100, L300.3900, L3100.5450, L3300.0700, L3890.6301, L3100.0460, L503.6550, L500.2500 ####[facility] [address] [place], [place], [phone] GAP 12 Normal 5-15 [facility] Comment on above: Performed By: #### L 803.2200, L3100.0300, L503.6030, L3890.6102, L503.0106, L800.1280, L3890.6202, L500.3400, L100.0100, L300.3900, L3100.5450, L3300.0700, L3890.6301, L3100.0460, L503.6550, L500.2500 ####[facility] [address] [place], [place], [phone] GFR/1.73 sq M.predicted among non-blacks MDRD (S/P/Bld) [Vol rate/Area] 51 mL/min/{1.73_m2} Low >60 [facility] Comment on above: Result Comment: mL/m in/1.73m2 CKD-EPI Creatinine Equation (2020) Performed By: #### L 803.2200, L3100.0300, L503.6030, L3890.6102, L503.0106, L800.1280, L3890.6202, L500.3400, L100.0100, L300.3900, L3100.5450, L3300.0700, L3890.6301, L3100.0460, L503.6550, L500.2500 ####[facility] [address] [place], [place], [phone] Glucose [Mass/Vol] 161 mg/dL High 70-99 [facility] Comment on above: Performed By: #### L 803.2200, L3100.0300, L503.6030, L3890.6102, L503.0106, L800.1280, L3890.6202, L500.3400, L100.0100, L300.3900, L3100.5450, L3300.0700, L3890.6301, L3100.0460, L503.6550, L500.2500 ####[facility] [address] [place], [place], [phone] Potassium [Moles/Vol] 4.3 mmol/L Normal 3.3-5.1 [facility] Comment on above: Performed By: #### L 803.2200, L3100.0300, L503.6030, L3890.6102, L503.0106, L800.1280, L3890.6202, L500.3400, L100.0100, L300.3900, L3100.5450, L3300.0700, L3890.6301, L3100.0460, L503.6550, L500.2500 ####[facility] [address] [place], [place], [phone] Sodium [Moles/Vol] 135 mmol/L Normal 133-145 [facility] Comment on above: Performed By: #### L 803.2200, L3100.0300, L503.6030, L3890.6102, L503.0106, L800.1280, L3890.6202, L500.3400, L100.0100, L300.3900, L3100.5450, L3300.0700, L3890.6301, L3100.0460, L503.6550, L500.2500 ####[facility] [address] [place], [place], [phone] Urea nitrogen [Mass/Vol] 19 mg/dL Normal 4-19 [facility] Comment on above: Performed By: #### L 803.2200, L3100.0300, L503.6030, L3890.6102, L503.0106, L800.1280, L3890.6202, L500.3400, L100.0100, L300.3900, L3100.5450, L3300.0700, L3890.6301, L3100.0460, L503.6550, L500.2500 ####[facility] [address] [place], [place], [phone] CBC W/Diff, Automatedon 04- Absolute Lymph 0.54 X10 3/uL Low 0.83-4.51 [facility] Comment on above: Performed By: #### L 803.2200, L3100.0300, L503.6030, L3890.6102, L503.0106, L800.1280, L3890.6202, L500.3400, L100.0100, L300.3900, L3100.5450, L3300.0700, L3890.6301, L3100.0460, L503.6550, L500.2500 ####[facility] [address] [place], [place], [phone] Absolute Neut 2.1 X10 3/uL Normal 2.0-7.7 [facility] Comment on above: Performed By: #### L 803.2200, L3100.0300, L503.6030, L3890.6102, L503.0106, L800.1280, L3890.6202, L500.3400, L100.0100, L300.3900, L3100.5450, L3300.0700, L3890.6301, L3100.0460, L503.6550, L500.2500 ####[facility] [address] [place], [place], [phone] Basophils/100 WBC (Bld) 0.3 % Normal 0-1 [facility] Comment on above: Performed By: #### L 803.2200, L3100.0300, L503.6030, L3890.6102, L503.0106, L800.1280, L3890.6202, L500.3400, L100.0100, L300.3900, L3100.5450, L3300.0700, L3890.6301, L3100.0460, L503.6550, L500.2500 ####[facility] [address] [place], [place], [phone] Eosinophils/100 WBC (Bld) 0.0 % Normal 0-5 [facility] Comment on above: Performed By: #### L 803.2200, L3100.0300, L503.6030, L3890.6102, L503.0106, L800.1280, L3890.6202, L500.3400, L100.0100, L300.3900, L3100.5450, L3300.0700, L3890.6301, L3100.0460, L503.6550, L500.2500 ####[facility] [address] [place], [place], [phone] Erythrocyte distribution width (RBC) [Ratio] 15.5 % High 11.6-14.6 [facility] Comment on above: Performed By: #### L 803.2200, L3100.0300, L503.6030, L3890.6102, L503.0106, L800.1280, L3890.6202, L500.3400, L100.0100, L300.3900, L3100.5450, L3300.0700, L3890.6301, L3100.0460, L503.6550, L500.2500 ####[facility] [address] [facility] [place], [place], [phone] Hematocrit (Bld) [Volume fraction] 36.1 % Low 37-47 [facility] Comment on above: Performed By: #### L 803.2200, L3100.0300, L503.6030, L3890.6102, L503.0106, L800.1280, L3890.6202, L500.3400, L100.0100, L300.3900, L3100.5450, L3300.0700, L3890.6301, L3100.0460, L503.6550, L500.2500 ####[facility] [address] [place], [address] Hemoglobin (Bld) [Mass/Vol] 11.9 g/dL Low 12.0-15.0 [facility] Comment on above: Performed By: #### L 803.2200, L3100.0300, L503.6030, L3890.6102, L503.0106, L800.1280, L3890.6202, L500.3400, L100.0100, L300.3900, L3100.5450, L3300.0700, L3890.6301, L3100.0460, L503.6550, L500.2500 ####[facility] [address] [facility] [place], [place], [phone] IG% 1.600 High 0.0-0.9 [facility] Comment on above: Result Comment: IG% - Immature Granulocytes (promyelocytes, myelocytes and metamyelocytes) > 1% indicates that a LEFT SHIFT is Present. Performed By: #### L 803.2200, L3100.0300, L503.6030, L3890.6102, L503.0106, L800.1280, L3890.6202, L500.3400, L100.0100, L300.3900, L3100.5450, L3300.0700, L3890.6301, L3100.0460, L503.6550, L500.2500 ####[facility] [address] [place], [address] Lymphocytes/100 WBC (Bld) 17.7 % Low 19-41 [facility] Comment on above: Performed By: #### L 803.2200, L3100.0300, L503.6030, L3890.6102, L503.0106, L800.1280, L3890.6202, L500.3400, L100.0100, L300.3900, L3100.5450, L3300.0700, L3890.6301, L3100.0460, L503.6550, L500.2500 ####[facility] [address] [facility] [address] [place], [place], [phone] MCH (RBC) [Entitic mass] 27.5 pg Normal 27.0-32.0 [facility] Comment on above: Performed By: #### L 803.2200, L3100.0300, L503.6030, L3890.6102, L503.0106, L800.1280, L3890.6202, L500.3400, L100.0100, L300.3900, L3100.5450, L3300.0700, L3890.6301, L3100.0460, L503.6550, L500.2500 ####[facility] [address] [place], [place], [phone] MCHC (RBC) [Mass/Vol] 33.0 g/dL Normal 32-36 [facility] Comment on above: Performed By: #### L 803.2200, L3100.0300, L503.6030, L3890.6102, L503.0106, L800.1280, L3890.6202, L500.3400, L100.0100, L300.3900, L3100.5450, L3300.0700, L3890.6301, L3100.0460, L503.6550, L500.2500 ####[facility] [address] [place], [address] MCV (RBC) [Entitic vol] 83.4 fL Normal 81-99 [facility] Comment on above: Performed By: #### L 803.2200, L3100.0300, L503.6030, L3890.6102, L503.0106, L800.1280, L3890.6202, L500.3400, L100.0100, L300.3900, L3100.5450, L3300.0700, L3890.6301, L3100.0460, L503.6550, L500.2500 ####[facility] [address] [place], [address] Monocytes/100 WBC (Bld) 11.1 % High 0-10 [facility] Comment on above: Performed By: #### L 803.2200, L3100.0300, L503.6030, L3890.6102, L503.0106, L800.1280, L3890.6202, L500.3400, L100.0100, L300.3900, L3100.5450, L3300.0700, L3890.6301, L3100.0460, L503.6550, L500.2500 ####[facility] [address] [place], [address] Neutrophils/100 WBC (Bld) 69.3 % Normal 47-70 [facility] Comment on above: Performed By: #### L 803.2200, L3100.0300, L503.6030, L3890.6102, L503.0106, L800.1280, L3890.6202, L500.3400, L100.0100, L300.3900, L3100.5450, L3300.0700, L3890.6301, L3100.0460, L503.6550, L500.2500 ####[facility] [address] [place], [address] Nucleated RBC (Bld) [#/Vol] 0 10*3/uL Normal 0-5 [facility] Comment on above: Performed By: #### L 803.2200, L3100.0300, L503.6030, L3890.6102, L503.0106, L800.1280, L3890.6202, L500.3400, L100.0100, L300.3900, L3100.5450, L3300.0700, L3890.6301, L3100.0460, L503.6550, L500.2500 ####[facility] [address] [place], [phone] Platelet mean volume (Bld) [Entitic vol] 11.0 fL Normal 6.2-12.0 [facility] Comment on above: Performed By: #### L 803.2200, L3100.0300, L503.6030, L3890.6102, L503.0106, L800.1280, L3890.6202, L500.3400, L100.0100, L300.3900, L3100.5450, L3300.0700, L3890.6301, L3100.0460, L503.6550, L500.2500 ####[facility] [address] [place], [place], [phone] Platelets (Bld) [#/Vol] 57 10*3/uL Low 150-450 [facility] Comment on above: Performed By: #### L 803.2200, L3100.0300, L503.6030, L3890.6102, L503.0106, L800.1280, L3890.6202, L500.3400, L100.0100, L300.3900, L3100.5450, L3300.0700, L3890.6301, L3100.0460, L503.6550, L500.2500 ####[facility] [address] [place], [address] RBC (Bld) [#/Vol] 4.33 10*6/uL Normal 4.2-5.4 [facility] Comment on above: Performed By: #### L 803.2200, L3100.0300, L503.6030, L3890.6102, L503.0106, L800.1280, L3890.6202, L500.3400, L100.0100, L300.3900, L3100.5450, L3300.0700, L3890.6301, L3100.0460, L503.6550, L500.2500 ####[facility] [address] [place], [address] RDW SD 46.7 fl High 35.1-43.9 [facility] Comment on above: Performed By: #### L 803.2200, L3100.0300, L503.6030, L3890.6102, L503.0106, L800.1280, L3890.6202, L500.3400, L100.0100, L300.3900, L3100.5450, L3300.0700, L3890.6301, L3100.0460, L503.6550, L500.2500 ####[facility] [address] [place], [address] WBC (Bld) [#/Vol] 3.1 10*3/uL Low 4.4-11.0 [facility] Comment on above: Performed By: #### L 803.2200, L3100.0300, L503.6030, L3890.6102, L503.0106, L800.1280, L3890.6202, L500.3400, L100.0100, L300.3900, L3100.5450, L3300.0700, L3890.6301, L3100.0460, L503.6550, L500.2500 ####[facility] [address] [place], [address] Ferritinon 10-31-2024 Ferritin [Mass/Vol] 49 ng/mL Normal 22-378 [facility] Comment on above: Performed By: #### L 803.2200, L3100.0300, L503.6030, L3890.6102, L503.0106, L800.1280, L3890.6202, L500.3400, L100.0100, L300.3900, L3100.5450, L3300.0700, L3890.6301, L3100.0460, L503.6550, L500.2500 ####[facility] [address] [place], [place], [phone] Gastroenterology Visit Repor ton 10-31-2024 Gastroenterology Visit Report [facility] [address] [place] [address] OFFICE VISIT Date of Service: 10/31/24 MR#: [id number] Acct: [id number] Name: MELANIE CAREY Rep #: [id number] : 1965 Provider: CRISTY joshi Age/Sex: 59/F Location: [facility] [place] Status: Signed Intake Vital Signs 09/02/24 [...] 10/31/24 5 History subcutaneous pen injector (Mounjaro) [facility] Medical History Liver disease Loss of hearing [...] Asacol Colon (more content not included)... Normal [facility] Hepatitis B Surface Antibody on 10-31-2024 HEP B Surf Ab REAC Normal [facility] Comment on above: Result Comment: <8.5 mIU/mL: Non-Reactive 8.5<= x <11.5 mIU/mL: Indeterminate >=11.5 mIU/mL: Reactive Non Reactive: Inconsistent with immunity less than <10 mIU/mL Reactive: Consistent with immunity greater than or equal to 10 mIU/mL Performed By: #### L 803.2200, L3100.0300, L503.6030, L3890.6102, L503.0106, L800.1280, L3890.6202, L500.3400, L100.0100, L300.3900, L3100.5450, L3300.0700, L3890.6301, L3100.0460, L503.6550, L500.2500 ####[facility] [address] [place], [address] Hepatitis C Antibodyon 10-31 Hepatitis C Ab Non-Reactive Normal Nonreactive [facility] Comment on above: Result Comment: Reac tive: Presumptive evidence of antibodies to HCV. Follow CDC recommendations for supplemental testing. Non-Reactive: Antibodies to HCV were not detected; does not exclude the possibility of exposure to HCV Reactive Results are presumptive evidence of antibodies to HCV. Follow CDC recommendations for supplemental testing. Order confirmation testing: HCV Quant by PCR testing - HCVPCR #[id number] Non Reactive: < 0.8 Equivocal: >/= 0.8 to < 1.0 Reactive: >/= 1.0 The [facility][NOTE 3] requires that a reactive/equivocal HCV antibody result be sent out for confirmation. HCV Quant by PCR testing. Performed By: #### L 803.2200, L3100.0300, L503.6030, L3890.6102, L503.0106, L800.1280, L3890.6202, L500.3400, L100.0100, L300.3900, L3100.5450, L3300.0700, L3890.6301, L3100.0460, L503.6550, L500.2500 ####[facility] [address] [place], [address] Iron+Iron Binding Capacityon 10-31-2024 Iron [Mass/Vol] 63 ug/dL Normal 50-170 [facility] Comment on above: Performed By: #### L 803.2200, L3100.0300, L503.6030, L3890.6102, L503.0106, L800.1280, L3890.6202, L500.3400, L100.0100, L300.3900, L3100.5450, L3300.0700, L3890.6301, L3100.0460, L503.6550, L500.2500 ####[facility] [address] [place], [address] IRON SATURATION 18.0 Normal 13-59 [facility] Comment on above: Performed By: #### L 803.2200, L3100.0300, L503.6030, L3890.6102, L503.0106, L800.1280, L3890.6202, L500.3400, L100.0100, L300.3900, L3100.5450, L3300.0700, L3890.6301, L3100.0460, L503.6550, L500.2500 ####[facility] [address] [place], [address] TIBC 359 ug/dL Normal 250-450 [facility] Comment on above: Performed By: #### L 803.2200, L3100.0300, L503.6030, L3890.6102, L503.0106, L800.1280, L3890.6202, L500.3400, L100.0100, L300.3900, L3100.5450, L3300.0700, L3890.6301, L3100.0460, L503.6550, L500.2500 ####[facility] [address] [place], [address] UIBC 296 ug/dL Normal 228-428 [facility] Comment on above: Performed By: #### L 803.2200, L3100.0300, L503.6030, L3890.6102, L503.0106, L800.1280, L3890.6202, L500.3400, L100.0100, L300.3900, L3100.5450, L3300.0700, L3890.6301, L3100.0460, L503.6550, L500.2500 ####[facility] [address] [place], [address] L3890.6102on 10-31-2024 HEP B Surf Ag Non-Reactive Normal Nonreactive [facility] Comment on above: Result Comment: Reac tive: Presumptive evidence of HBV. Repeatedly reactive samples must be confirmed using a neutralization test ([facility] HBsAg Confirmatory Test) Non-Reactive: HBsAg not detected; does not exclude the possibility of exposure to HBV Performed By: #### L 803.2200, L3100.0300, L503.6030, L3890.6102, L503.0106, L800.1280, L3890.6202, L500.3400, L100.0100, L300.3900, L3100.5450, L3300.0700, L3890.6301, L3100.0460, L503.6550, L500.2500 ####[facility] [address] [facility] [place], [place], [id number] Liver Profileon 10-31-2024 Albumin [Mass/Vol] 4.1 g/dL Normal 3.5-5.0 [facility] Comment on above: Performed By: #### L 803.2200, L3100.0300, L503.6030, L3890.6102, L503.0106, L800.1280, L3890.6202, L500.3400, L100.0100, L300.3900, L3100.5450, L3300.0700, L3890.6301, L3100.0460, L503.6550, L500.2500 ####[facility] [address] [facility] [place], [place], [phone] ALK PHOS 129 U/L High 35-104 [facility] Comment on above: Performed By: #### L 803.2200, L3100.0300, L503.6030, L3890.6102, L503.0106, L800.1280, L3890.6202, L500.3400, L100.0100, L300.3900, L3100.5450, L3300.0700, L3890.6301, L3100.0460, L503.6550, L500.2500 ####[facility] [address] [place], [place], [id number] ALT [Catalytic activity/Vol] 21 U/L Normal <=34 [facility] Comment on above: Performed By: #### L 803.2200, L3100.0300, L503.6030, L3890.6102, L503.0106, L800.1280, L3890.6202, L500.3400, L100.0100, L300.3900, L3100.5450, L3300.0700, L3890.6301, L3100.0460, L503.6550, L500.2500 ####[facility] [address] [place], [place], [id number] AST [Catalytic activity/Vol] 25 U/L Normal <=31 [facility] Comment on above: Performed By: #### L 803.2200, L3100.0300, L503.6030, L3890.6102, L503.0106, L800.1280, L3890.6202, L500.3400, L100.0100, L300.3900, L3100.5450, L3300.0700, L3890.6301, L3100.0460, L503.6550, L500.2500 ####[facility] [address] [place], [place], [id number] Bilirubin [Mass/Vol] 1.02 mg/dL Normal 0.00-1.30 [facility] Comment on above: Performed By: #### L 803.2200, L3100.0300, L503.6030, L3890.6102, L503.0106, L800.1280, L3890.6202, L500.3400, L100.0100, L300.3900, L3100.5450, L3300.0700, L3890.6301, L3100.0460, L503.6550, L500.2500 ####[facility] [address] [place], [place], [id number] Bilirubin.direct [Mass/Vol] 0.44 mg/dL High 0.00-0.30 [facility] Comment on above: Performed By: #### L 803.2200, L3100.0300, L503.6030, L3890.6102, L503.0106, L800.1280, L3890.6202, L500.3400, L100.0100, L300.3900, L3100.5450, L3300.0700, L3890.6301, L3100.0460, L503.6550, L500.2500 ####[facility] [address] [place], [address]) Globulin (S) [Mass/Vol] 3.3 g/dL Normal 2.2-4.2 [facility] Comment on above: Performed By: #### L 803.2200, L3100.0300, L503.6030, L3890.6102, L503.0106, L800.1280, L3890.6202, L500.3400, L100.0100, L300.3900, L3100.5450, L3300.0700, L3890.6301, L3100.0460, L503.6550, L500.2500 ####[facility] [address] [place], [address] T PROT 7.4 g/dL Normal 5.9-8.4 [facility] Comment on above: Performed By: #### L 803.2200, L3100.0300, L503.6030, L3890.6102, L503.0106, L800.1280, L3890.6202, L500.3400, L100.0100, L300.3900, L3100.5450, L3300.0700, L3890.6301, L3100.0460, L503.6550, L500.2500 ####[facility] [address] [place], [place], [phone] Prothrombin Time w/INRon INR Coag (PPP) [Relative time] 1.1 {INR} Normal [facility] Comment on above: Performed By: #### L 803.2200, L3100.0300, L503.6030, L3890.6102, L503.0106, L800.1280, L3890.6202, L500.3400, L100.0100, L300.3900, L3100.5450, L3300.0700, L3890.6301, L3100.0460, L503.6550, L500.2500 ####[facility] [address] [place], [address] PT Coag (PPP) [Time] 14.1 s Normal 11.7-14.9 [facility] Comment on above: Performed By: #### L 803.2200, L3100.0300, L503.6030, L3890.6102, L503.0106, L800.1280, L3890.6202, L500.3400, L100.0100, L300.3900, L3100.5450, L3300.0700, L3890.6301, L3100.0460, L503.6550, L500.2500 ####[facility] [address] [place], [place], [address] Vitamin B12on 10-31-2024 Cobalamin (Vitamin B12) [Mass/Vol] 327 pg/mL Normal 180-914 [facility] Comment on above: Performed By: #### L 803.2200, L3100.0300, L503.6030, L3890.6102, L503.0106, L800.1280, L3890.6202, L500.3400, L100.0100, L300.3900, L3100.5450, L3300.0700, L3890.6301, L3100.0460, L503.6550, L500.2500 ####[facility] [address] [place], [address] 36on 10-24-2024 36 Spoke with pilar Conklin verbal updated instructions. [facility] 36 Diflucan 150 mg lara y by mouth x [address] [facility] 36 Name of caller: Rubin Contact phone number: [phone] Relationship to Patient: [facility] [address] [place] [address] [facility] Provider: Cierra Practice: Jaky DUARTE Chief Complaint/Reason for Call: Rubin with [facility] calling for clarification medicine fluconazole (Diflucan) 150 MG tablet. The directions have two sets of directions. Asking for a verbal or new script of correct directions. Please advise Best time of day caller can be reached: AM Patient advised that office/PCP has 24-48 business hours to return their call: N/A [facility] 37on 10-24-2024 37 Send daily fasting a nd 2 hour after meal blood sugar readings every 3 days to me through [place]. [facility] Office Visiton 10-24-2024 Follow-up visit [id number] Ramesh Carey 1965 F Date Provider Department Center 10/24/2024 [id number] ALEXANDER [facility] Family History Problem Relation Age of Onset Diabetes Mother Heart disease Father Cancer Father Comments: prostate High Blood Pressure Father Other Sister Comments: TBI Depression Mother Substance Abuse Brother Heart disease Mother Other Mother Depression Brother Family Status - Relation Status Age at Mother Father Sister Alive Brother Alive Level of Service:11657 CO OFFICE/OUTPATIENT ESTABLISHED MOD MDM 30 MIN Reason for Visit and Comments: Diabetes Mellitus [183] [facility] Progress Noteon 10-24-2024 Progress Note Continue with pain management as directed. [facility] Progress Note Continue b12 injections [facility] Progress Note Follow-up with hemat ology as directed. [facility] Progress Note Stable. Get diabetes under control. Blood pressures are good [facility] Progress Note Stable. Follow up gastroenterology as scheduled [facility] Progress Note Poorly controlled. Improved glucose [...] to get better control of diabetes. Normal [facility] Progress Note Stable. Continue Wellbutrin 300 mg daily, BuSpar 10 mg twice daily. Recommend establishing with counselor [facility] Progress Note Controlled. Blood pr essure 124/72. Continue labetalol 100 mg twice daily. Has not tolerated CLAUDY inhibitors in the past, consider ARB [facility] Progress Note Controlled. Continue rosuvastatin [address] [facility] Progress Note Continue portion con trol, low carb,low fat, low cholesterol diet. Increase physical activity as tolerated. [facility] Progress Note 10/24/2024 Melanie Carey (: 1965) [...] 2 diabetes mellitus with hyperglycemia, unspecified whether inspector mechanical insulin use (HCC) - insulin glargine (Lantus [...] of 40.0 to 44.9 in adult (HCC) Assessment & Plan: Continue portion control, low carb,low fat, low cholesterol diet. Increase physical activity as tolerated. Follow up for 3 month [facility]. SUBJECTIVE/OBJECTIVE: [facility] - Melanie Carey (: 1965) is a [...] was supposed to start physical therapy at [facility] in [place] but was not able to get it [...] mg) by mouth daily (with breakfast). HYDROcodone-acetaminophen ([place]) 5-325 MG tablet TAKE 1 TABLET BY MOUTH EVERY 6 HOURS NEEDED FOR PAIN FOR 3 DAYS labetalol (Normodyne) 100 MG tablet TAKE 1 TABLET BY MOUTH IN THE MORNING AND 1 TABLET IN THE EVENING. 60 tablet 0 metFORMIN (Glucophage) 1000 MG tablet Take 1 tablet (1,000 mg) by mouth 2 times daily (with meals). 180 tablet 1 nystatin (Mycostatin) 716424 UNIT/GM powder Apply topically 2 times daily. 30 g 0 rosuvastatin (Crestor) 5 MG tablet Take 1 tablet (5 mg) by mouth daily. 90 tablet 1 Tirzepatide (Mounjaro) 5 MG/0.5ML solution auto-injector Inject 5 mg (more content not included)... [facility] Progress Note Patient was identifi ed by name and Date of . Health Maintenance Due Topic Mammogram-pended [facility] [id number] 10-09-2024 [phone] Faxed DEVONTE to Dr[facility]on[facility] 36[facility] 10-09-2024 [address]. [address] [facility] 36 DEVONTE's printed and fi lled out ok to send? [facility] Basic metabolic 1998 panelon 09-27-2024 Anion gap [Moles/Vol] 9 mmol/L 3 - 13 mmol/L [facility] Calcium [Mass/Vol] 8.6 mg/dL 8.4 - 10. 2 mg/dL [facility] Chloride [Moles/Vol] 105 mmol/L 98 - 10 7 mmol/L [facility] CO2 [Moles/Vol] 18 mmol/L Low 22 - 29 mmol/L [facility] Creatinine [Mass/Vol] 1.17 mg/dL High 0.57 - 1.11 mg/dL [facility] GFR/1.73 sq M.predicted (S/P/Bld) [Vol rate/Area] 54.5 mL/min Low - PINF [facility] Comment on above: Calculation based on the Chronic Kidney Disease Epidemiology Collaboration (CKD-EPI) equation refit without adjustment for race Glucose [Mass/Vol] 419 mg/dL High 74 - 100 mg/dL [facility] Interpretation and review of laboratory results Abnormal [facility] Potassium [Moles/Vol] 4.5 mmol/L 3.5 - 5.1 mmol/L [facility] Comment on above: Plasma potassium chelsy ues may be up to 0.5 mmol/L lower than serum values. Sodium [Moles/Vol] 132 mmol/L Low 136 - 145 mmol/L [facility] Urea nitrogen [Mass/Vol] 29 mg/dL High 9 - 23 mg/dL [facility] CBC W Auto Differential pane l (Bld)Ordered By: Laura Abad on 09-27-2024 Erythrocyte distribution width (RBC) [Ratio] 15 % 11.5 - 15.0 % [facility] Hematocrit (Bld) [Volume fraction] 37 % 35.0 - 47.0 % [facility] Hemoglobin (Bld) [Mass/Vol] 12.3 g/dL 11.7 - 16.0 g/dL [facility] Interpretation and review of laboratory results Abnormal [facility] IPF 4 [facility] MCH (RBC) [Entitic mass] 27.3 pg 26.0 - 34.0 pg [facility] MCHC (RBC) [Mass/Vol] 33.2 % 30.5 - 36.0 % [facility] MCV (RBC) [Entitic vol] 82 fL 77.0 - 99.0 fL [facility] Platelet mean volume (Bld) [Entitic vol] 11.3 fL 9.0 - 12.7 fL [facility] Platelets (Bld) [#/Vol] 50 10*3/uL Low 140 - 440 10*3/uL [facility] RBC (Bld) [#/Vol] 4.51 10*6/uL 3.80 - 5.2 0 10*6/uL [facility] WBC (Bld) [#/Vol] 5.4 10*3/uL 3.6 - 10.7 10*3/uL [facility] Comprehensive metabolic 1998 panelOrdered By: Cherelle Santos on 09-27-2024 Albumin [Mass/Vol] 3.5 g/dL 3.5 - 5.0 g/dL [facility] ALP [Catalytic activity/Vol] 145 U/L 40 - 150 U/L [facility] ALT [Catalytic activity/Vol] 32 U/L High NINF - 30 U/L [facility] Anion gap [Moles/Vol] 12 mmol/L 3 - 13 mmol/L [facility] AST [Catalytic activity/Vol] 32 U/L NINF - 34 U/L [facility] Bilirubin [Mass/Vol] 1.3 mg/dL High [facility] mg/dL [facility] Calcium [Mass/Vol] 9.2 mg/dL 8.4 - 10. 2 mg/dL [facility] Chloride [Moles/Vol] 102 mmol/L 98 - 10 7 mmol/L [facility] CO2 [Moles/Vol] 18 mmol/L Low 22 - 29 mmol/L [facility] Creatinine [Mass/Vol] 1.49 mg/dL High 0.57 - 1.11 mg/dL [facility] GFR/1.73 sq M.predicted (S/P/Bld) [Vol rate/Area] 40.8 mL/min Low - PINF [facility] Comment on above: Calculation based on the Chronic Kidney Disease Epidemiology Collaboration (CKD-EPI) equation refit without adjustment for race Glucose [Mass/Vol] 528 mg/dL Critically high 74 - 1 00 mg/dL [facility] Interpretation and review of laboratory results Abnormal [facility] Potassium [Moles/Vol] 4.9 mmol/L 3.5 - 5.1 mmol/L [facility] Comment on above: Plasma potassium chelsy ues may be up to 0.5 mmol/L lower than serum values. Protein [Mass/Vol] 7.6 g/dL 6.4 - 8.3 g/dL [facility] Sodium [Moles/Vol] 132 mmol/L Low 136 - 145 mmol/L [facility] Urea nitrogen [Mass/Vol] 30 mg/dL High 9 - 23 mg/dL [facility] Laboratory - Chemistry and C hemistry - challengeon 09-27-2024 Glucose [Mass/Vol] 303 mg/dL High 70 - 100 mg/dL [facility] Beta hydroxybutyrate [Mass/Vol] 2.3 mg/dL NINF - 2.8 mg/dL [facility] Magnesium [Mass/Vol] 1.6 mg/dL 1.6 - 2 .6 mg/dL [facility] Glucose [Mass/Vol] mg/dL High 70 - 100 mg/dL [facility] Comment on above: Confirmation Drawn; Caregiver Notified; Laboratory - Chemistry and C hemistry - challengeOrdered By: Suly Hamilton on 09-27-2024 Base excess Calc (BldV) [Moles/Vol] -4.7000 mmol/L Low -3.0 - 3.0 mmol/L [facility] CO2 (BldV) [Partial pressure] 31.2 mm[Hg] Low [facility] CO2 [Moles/Vol] 19.9 mmol/L Low 23.0 - 30.0 mmol/L [facility] HCO3 (Bld) [Moles/Vol] 19 mmol/L Low 21.0 - 30.0 mmol/L [facility] Oxygen (BldV) [Partial pressure] 72.5 mm[Hg] mm Hg [facility] pH (BldV) 7.402 [pH] 7.320 - 7.420 [facility] Laboratory - Hematology and Cell countson 09-27-2024 Lymphocytes (Bld) [#/Vol] 0.1 10*3/uL Low 1.0 - 4.3 10*3/uL [facility] Lymphocytes/100 WBC (Bld) 2 % Low 15 - 45 % [facility] Monocytes (Bld) [#/Vol] 0.2 10*3/uL 0.0 - 0.9 10*3/uL [facility] Monocytes/100 WBC (Bld) 4 % Low 5 - 13 % [facility] Myelocytes (Bld) [#/Vol] 0.2 10*3/uL High NINF - 0.0 10*3/uL [facility] Myelocytes/100 WBC (Bld) 3 % High NINF - 0 % [facility] [employer] Neutrophils (Bld) [#/Vol] 4.7 10*3/uL 1.8 - 7.5 10*3/uL [facility] [employer] RBC morphology finding Nom (Bld) Normal [facility] [employer] Segmented neutrophils/100 WBC (Bld) 87 % High 38 - 82 % [facility] [employer] Variant lymphocytes (Bld) [#/Vol] 0.2 10*3/uL High NINF - 0.0 10*3/uL [facility] [employer] Variant lymphocytes/100 WBC (Bld) 4 % High NINF - 0 % [facility] [employer] Laboratory - Hematology and Cell countsOrdered By: Suly Hamilton on 09-27-2024 Hemoglobin (Bld) [Mass/Vol] 13.1 g/dL Screen only [facility] [employer] Magnesium [Mass/Vol]on 09-27 Higher values can be expected in females during menses. [employer] No Panel Informationon 09-27 P Renovo 60 degrees [facility] [employer] CO Interval 208 ms [facility] [employer] QRS Renovo -75 degrees [facility] [employer] QRSD Interval 106 ms [facility] [employer] QT Interval 355 ms [facility] [employer] QTC Interval 448 ms [facility] [employer] T Wave Renovo 64 degrees [facility] [employer] Sinus rhythm Prolonged CO interval Left anterior fascicular block Consider right ventricular hypertrophy Probable left ventricular hypertrophy EKG per my interpretation shows a normal sinus rhythm at a rate of 96 with a left axis deviation. There is a left anterior fascicular block. There may be LVH and RVH. There is no acute ST elevation or ST depression. Intervals are within normal limits although CO may be slightly prolonged. There were no significant changes compared to prior EKG on file. Electronically Signed On 09-27-2024 20:11:11 EDT by Jimenez De La Fuente MD - 09/27/2024 IMPRESSION: Sinus rhythm Prolonged CO interval Left anterior fascicular block Consider right ventricular hypertrophy Probable left ventricular hypertrophy EKG per my interpretation shows a normal sinus rhythm at a rate of 96 with a left axis deviation. There is a left anterior fascicular block. There may be LVH and RVH. There is no acute ST elevation or ST depression. Intervals are within normal limits although CO may be slightly prolonged. There were no significant changes compared to prior EKG on file. Electronically Signed On 09-27-2024 20:11:11 EDT by Jimenez Maddox [facility] Interpretation and review of laboratory results Abnormal [facility] Performed by: [facility], [address] [facility] [address] CLIA ID: [id number] [facility] Atypical Lymphocytes Manual 4 [facility] Bands Manual [facility] Basophils Manual [facility] Blasts Manual [facility] Eosinophils Manual [facility] Interpretation and review of laboratory results Abnormal [facility] Lymphocytes Manual 2 [facility] Health Metamyelocytes Manual [facility] Monocytes Manual 4 [facility] Myelocytes Manual 3 [facility] Neutrophils Manual 89 [facility] Promyelocytes Manual [facility] Unclassified Cells, Manual [facility] Interpretation and review of laboratory results Normal [facility] Interpretation and review of laboratory results Abnormal [facility] Performed by: [facility], [address] [facility] [address] CLIA ID: [id number] [facility] No Panel InformationOrdered By: Suly Hamilton on 09-27-2024 Amount Of Oxygen [facility] Interpretation and review of laboratory results Abnormal [facility] Source Of Oxygen No data [facility] Assessment of oxygen ation is best done with an arterial blood gas determination. Reference ranges for pO2, bicarbonate, and base excess are for mixed venous blood. Specimens drawn from a peripheral vein will often have higher values. [facility] Phosphate [Moles/Vol]on 09-09 Interpretation and review of laboratory results Abnormal [facility] Phosphate [Mass/Vol] 2.1 mg/dL Low 2.3 - 4 .7 mg/dL [facility] Vital signson 09-27-2024 Heart rate 96 /min bpm [facility] Vital signsOrdered By: Suly Hamilton on 09-27-2024 Oxygen saturation in Venous blood 93.8 % [facility] Emergency Department Summary on 09-02-2024 Emergency Department Summary [facility] Medical Records Department [address] [place] [address] Emergency Department Summary 09/02/24 MR#: [id number] Acct: [id number] Name: MELANIE CAREY Rep #: [id number] : 1965 59 From: Lino Elias MD [...] anesthesia, no loss of bowel or bladder. [facility] Medical History Liver disease Loss of hearing [...] H/O colonoscop (more content not included)... Normal [facility] HIP, UNI W/ Pelvis 2-3 Views on 09-02-2024 HIP, UNI W/ Pelvis 2-3 Views [facility] Imaging Services [address], [place] [id number] HIP, UNI W/ Pelvis 2-3 Views MR#: [id number] Acct: [id number] Name: MELANIE RESTREPO Rep #: [id number] : 1965 F 59 From: Rik Paiz MD PCP: Dr. Gio Ricketts MD Status: PRE ER Study: HIP, UNI W/ Pelvis 2-3 Views Date of Exam: Exam# [id number] Ordering Dr: Lino Elias MD PROCEDURE: HIP, [...] Lino Elias MD; Dr. Gio Ricketts MD Neck Band Setter: Signed Normal [facility] Lumbar Spine 2 or 3 Viewson 09-02-2024 Lumbar Spine 2 or 3 Views [facility] Imaging Services [address] [place] [address] Lumbar Spine 2 or 3 Views MR#: [id number] Acct: [id number] Name: MELANIE RESTREPO Rep #: [id number] : 1965 F 59 From: Rik Paiz MD PCP: Dr. Gio Ricketts MD Status: PRE ER Study: Lumbar Spine 2 or 3 Views Date of Exam: Exam# [id number] Ordering Dr: Lino Elias MD PROCEDURE: LUMBAR [...] Lino Elias MD; Dr. Gio Ricketts MD Neck Band Setter: Signed [facility] L5000.0010on 04-29-2024 BNP Normal [facility] Comment on above: Result Comment: TEST RESULTS LIMITS B-Type Natriuretic Peptide 29.2 pg/mL 0.0-100.0 Siemens ADVIA Centaur XP methodology TESTING PERFORMED AT [facility]. ORIGINAL REPORT ON FILE IN LAB CONTAINS ADDITIONAL TEST SITE INFORMATION. Performed By: #### L 100.0100, L501.2450, L500.4050 #### [facility] Laboratory [address] [place], [address] CBC W/Diff, Automatedon - PATH REV Reviewed [facility] Comment on above: Result Comment: Panc ytopenia. Leukopenia and neutropenia.Normocytic anemia. MODERATE Thrombocytopenia. Clinical correlation necessary. Travis Jerry M.D. 04/24/24 AMENDED REPORT 04/24/24 1340 PATH REV previously reported as: November mandeep Performed By: #### L 100.0100, L501.2450, L500.4050 #### [facility] Laboratory [address] [place], [address] 12 Lead EKGon 04-23-2024 12 Lead EKG [facility] Cardiovascular Services [address] [place] [address] 12 Lead EKG 04/23/24 1133 MR#: [id number] Acct: [id number] Name: MELANIE RESTREPO Rep #: [id number] : 1965 58 From: Ray Cheney MD [...] anterior fascicular block Abnormal ECG Confirmed by Rya Cheney ([id number]), story editor AMADO KENNEDY ([id number]) on 04/25/2024 1:32:02 PM Referred By: Confirmed By:Ray Cheney 04/25/24 1332 Date Ray Cheney MD CC: Dr. Rc Freeman DO; Dr. Gio Ricketts MD Signed Normal [facility] Basic Metabolic Profile (BMP )on 04-23-2024 BUN/CRE 9.4 RATIO Low 04-30 [facility] Comment on above: Order Comment: 1Y Performed By: #### L 100.0100, L501.2450, L500.4050 #### [facility] Laboratory [address] [place], [address] CA,Total 9.4 mg/dL Normal 8.5-10.1 [facility] Comment on above: Order Comment: 1Y Performed By: #### L 100.0100, L501.2450, L500.4050 #### [facility] Laboratory [address] [place], [address] Chloride [Moles/Vol] 100 mmol/L Normal 98-107 [facility] Comment on above: Order Comment: 1Y Performed By: #### L 100.0100, L501.2450, L500.4050 #### [facility] Laboratory [address] [place], [address] CO2 [Moles/Vol] 28.0 mmol/L Normal 21.0-32.0 [facility] Comment on above: Order Comment: 1Y Performed By: #### L 100.0100, L501.2450, L500.4050 #### [facility] Laboratory [address] [place], [address] Creatinine [Mass/Vol] 1.06 mg/dL High 0.55-1.02 [facility] Comment on above: Order Comment: 1Y Result Comment: The validity of the calculated GFR GFRAA in patients over 70 years has not been determined. Clinical correlation is essential. Performed By: #### L 100.0100, L501.2450, L500.4050 #### [facility] Laboratory [address] [place], [address] ECRCL 77.03 ml/min Normal [facility] [facility] Comment on above: Order Comment: 1Y Performed By: #### L 100.0100, L501.2450, L500.4050 #### [facility] [address] [place], [address] EST GFR - AA 69 mL/min Normal >60 [facility] Comment on above: Order Comment: 1Y Result Comment: Afri can [place]ese GFR Calc Performed By: #### L 100.0100, L501.2450, L500.4050 #### [facility] [address] [place], [address] GAP 6 Normal 5-15 [facility] Comment on above: Order Comment: 1Y Performed By: #### L 100.0100, L501.2450, L500.4050 #### [facility] [address] [place], [address] GFR/1.73 sq M.predicted among non-blacks MDRD (S/P/Bld) [Vol rate/Area] 57 mL/min/{1.73_m2} Low >60 [facility] Comment on above: Order Comment: 1Y Result Comment: Non- GFR Calc Performed By: #### L 100.0100, L501.2450, L500.4050 #### [facility] [address] [place], [address] Glucose [Mass/Vol] 416 mg/dL High 74-106 [facility] Comment on above: Order Comment: 1Y Result Comment: Gluc ose result greater than or equal to 200 mg/dL suggests DIABETES MELLITUS per A.D.A. criteria. Performed By: #### L 100.0100, L501.2450, L500.4050 #### [facility] [address] [place], [address] Potassium [Moles/Vol] 4.0 mmol/L Normal 3.5-5.1 [facility] Comment on above: Order Comment: 1Y Performed By: #### L 100.0100, L501.2450, L500.4050 #### [facility] [address] [place], [address] Sodium [Moles/Vol] 134 mmol/L Low 136-145 [facility] Comment on above: Order Comment: 1Y Performed By: #### L 100.0100, L501.2450, L500.4050 #### [facility] [address] [place], [address] Urea nitrogen [Mass/Vol] 10 mg/dL Normal 7-18 [facility] Comment on above: Order Comment: 1Y Performed By: #### L 100.0100, L501.2450, L500.4050 #### [facility] [address] [place], [address] Chest PA and Lateralon 04-23 Chest PA and Lateral [facility] Imaging Services [address] [place] [address] Chest PA and Lateral MR#: [id number] Acct: [id number] Name: MELANIE RESTREPO Rep #: [id number] : 1965 F 58 From: Avtar Lezama MD PCP: Dr. Gio Ricketts MD Status: REG ER Study: Chest PA and Lateral Date of Exam: 04/23/24 Exam# [id number] Ordering Dr: Rc Freeman DO [id number] STUDY: X-RAY CHEST REASON FOR EXAM: Female, [...] Rc Freeman DO; Dr. 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 She has never seen a subassemblies wirer. She is a previous tobacco abuser. Denies [...] intact Psych: Cooperative, appropriate mood and [facility] History Liver disease Loss of hearing [...] #10 tabs (more content not included)... Normal [facility] L501.4020on 04-23-2024 TROPONIN-I HS 13 pg/mL Normal 3.0-54.0 [facility] Comment on above: Result Comment: Plea se Note: New Test Units and Gender Specific Reference Ranges. For more information see Policy Stat Procedure [place] High Sensitivity Troponin (TNIH) and attachments. Performed By: #### L 400.0001 #### [facility] [address] [place], [address] L501.5405on 04-23-2024 TROPONIN-I HS 15 pg/mL Normal 3.0-54.0 [facility] Comment on above: Order Comment: 1Y Result Comment: Plea se Note: New Test Units and Gender Specific Reference Ranges. For more information see Policy Stat Procedure [place] High Sensitivity Troponin (TNIH) and attachments. Performed By: #### L 100.0100, L501.2450, L500.4050 #### [facility] [address] [place], [address] M100.678on 04-23-2024 M100.678 Pending SARS-CoV-2 (COVID 19) Negative INFLUENZA A Negative INFLUENZA B Negative RSV PCR Negative Normal [facility] Comment on above: Performed By: #### L 100.0100, L501.2450, L500.4050 #### [facility] [address] [place], [address] CBC W/Diff, Automatedon 03-12 PATH REV Reviewed Normal [facility] Comment on above: Result Comment: Panc ytopenia. Leukopenia and neutropenia. Normocytic anemia. MODERATE Thrombocytopenia. Clinical correlation necessary. Travis Jerry M.D. 03/24/24 AMENDED REPORT 03/24/24 0857 PATH REV previously reported as: November mandeep Performed By: #### L 100.0100, L501.2450, L500.4050 #### [facility] [address] [place], [address] Basic Metabolic Profile (BMP )on 03-22-2024 BUN/CRE 9.3 RATIO Low 10-20 [facility] Comment on above: Performed By: #### L 100.0100, L501.2450, L500.4050 #### [facility] [address] [place], [address] CA,Total 9.9 mg/dL Normal 8.5-10.1 [facility] Comment on above: Performed By: #### L 100.0100, L501.2450, L500.4050 #### [facility] [address] [place], [address] Chloride [Moles/Vol] 104 mmol/L Normal 98-107 [facility] Comment on above: Performed By: #### L 100.0100, L501.2450, L500.4050 #### [facility] [address] [place], [address] CO2 [Moles/Vol] 28.0 mmol/L Normal 21.0-32.0 [facility] Comment on above: Performed By: #### L 100.0100, L501.2450, L500.4050 #### [facility] [address] [place], [address] Creatinine [Mass/Vol] 1.07 mg/dL High 0.55-1.02 [facility] Comment on above: Result Comment: The validity of the calculated GFR GFRAA in patients over 70 years has not been determined. Clinical correlation is essential. Performed By: #### L 100.0100, L501.2450, L500.4050 #### [facility] [address] [place], [address] EST GFR - AA 68 mL/min Normal >60 [facility] Comment on above: Result Comment: Afri can [place] GFR Calc Performed By: #### L 100.0100, L501.2450, L500.4050 #### [facility] [address] [place], [address] GAP 7 Normal 5-15 [facility] Comment on above: Performed By: #### L 100.0100, L501.2450, L500.4050 #### [facility] [address] [place], [address] GFR/1.73 sq M.predicted among non-blacks MDRD (S/P/Bld) [Vol rate/Area] 56 mL/min/{1.73_m2} Low >60 [facility] Comment on above: Result Comment: Non- GFR Calc Performed By: #### L 100.0100, L501.2450, L500.4050 #### [facility] [address] [place], [address] Glucose [Mass/Vol] 190 mg/dL High 74-106 [facility] Comment on above: Result Comment: Fast ing Glucose result greater than or equal to 126 mg/dL suggests DIABETES MELLITUS per A.D.A. criteria. Performed By: #### L 100.0100, L501.2450, L500.4050 #### [facility] [address] [place], [address] Potassium [Moles/Vol] 4.2 mmol/L Normal 3.5-5.1 [facility] Comment on above: Performed By: #### L 100.0100, L501.2450, L500.4050 #### [facility] [address] [place], [address] Sodium [Moles/Vol] 139 mmol/L Normal 136-145 [facility] Comment on above: Performed By: #### L 100.0100, L501.2450, L500.4050 #### [facility] [address] [place], [address] Urea nitrogen [Mass/Vol] 10 mg/dL Normal 7-18 [facility] Comment on above: Performed By: #### L 100.0100, L501.2450, L500.4050 #### [facility] [address] [place], [address] Chest PA and Lateralon 03-22 Chest PA and Lateral [facility] Imaging Services [address] [place] [address] Chest PA and Lateral MR#: [id number] Acct: [id number] Name: MELANIE RESTREPO Rep #: [id number] : 1965 F 58 From: Giovanni wang MD PCP: Dr. Gio Ricketts MD Status: REG ER Study: Chest PA and Lateral Date of Exam: 03/22/24 Exam# [id number] Ordering Dr: Alfonso Covarrubias MD [id number] STUDY: X-RAY CHEST REASON FOR EXAM: Female, [...] 10:16 EDT Reading Location ID and State: [address] [place] [address] , Service support , CC: Dr. Gio Ricketts MD; Dr. Alfonso Covarrubias MD Neck Band Setter: Signed Normal [facility] Emergency Department Summary on 03-22-2024 Emergency Department Summary [facility] Medical Records Department [address] [place] [address] Emergency Department Summary 03/22/24 MR#: [id number] Acct: [id number] Name: MELANIE RESTREPO Rep #: [id number] : 1965 58 From: Alfonso Covarrubias MD [...] (Diagnosed with COVID.) Recent Illness/Hospitalization: No PFSH [facility] Medical History Liver disease Loss of hearing [...] @ 0 (more content not included)... Normal [facility] M100.678on 03-22-2024 M100.678 Pending SARS-CoV-2 (COVID 19) Negative INFLUENZA A Negative INFLUENZA B Negative RSV PCR Negative Normal [facility] Comment on above: Performed By: #### L 400.0001 #### [facility] [address] [place], [address] CBC W Auto Differential pane l (Bld)Ordered By: Gina Márquez on 02-19-2024 Erythrocyte distribution width (RBC) [Ratio] 15.3 % High 11.5 - 15.0 % [employer] Hematocrit (Bld) [Volume fraction] 35.4 % 35.0 - 47.0 % [facility] [employer] Hemoglobin (Bld) [Mass/Vol] 11.5 g/dL Low 11.7 - 16.0 g/dL [facility] [employer] Interpretation and review of laboratory results Abnormal [facility] IPF 3 [facility] [employer] MCH (RBC) [Entitic mass] 27.1 pg 26.0 - 34.0 pg [facility] [employer] MCHC (RBC) [Mass/Vol] 32.5 % 30.5 - 36.0 % [facility] [employer] MCV (RBC) [Entitic vol] 83.3 fL 77.0 - 99.0 fL [employer] Platelet mean volume (Bld) [Entitic vol] 10.6 fL 9.0 - 12.7 fL [facility] [employer] Platelets (Bld) [#/Vol] 57 10*3/uL Low 140 - 440 10*3/uL [facility] [employer] RBC (Bld) [#/Vol] 4.25 10*6/uL 3.80 - 5.2 0 10*6/uL [facility] [employer] WBC (Bld) [#/Vol] 2.4 10*3/uL Low 3.6 - 10.7 10*3/uL [facility] CT Head WO contraston 2023 No evidence of an acute intracranial process. Report Dictated on Electronically Signed By: Leonardo Watts MD Electronically Signed Date/Time: 02/19/2024 12:54 PM EDT [employer] Patient Name: MELANIE REA : 1965 [...] calcification of the carotid siphons is noted. [facility] Leonardo Watts MD - 02/19/2024 [facility] Name[facility]AR [facility] 1965 [id number] Exam Date/Time: 02/19/2024 12:45 Procedure: CT HEAD [...] Electronically Signed Date/Time: 02/19/2024 12:54 PM EDT [facility] Radiology Study observation (narrative) [facility] CT Head WO contrastOrdered B y: Leonardo Watts on 02-19-2024 [facility] Work Phone: Comprehensive metabolic 1998 panelon 02-19-2024 Albumin [Mass/Vol] 3.6 g/dL 3.5 - 5.0 g/dL [facility] ALP [Catalytic activity/Vol] 102 U/L 38 - 126 U/L [facility] ALT [Catalytic activity/Vol] 30 U/L 0 - 34 U/L [facility] Anion gap [Moles/Vol] 8 mmol/L 3 - 13 mmol/L [facility] AST [Catalytic activity/Vol] 35 U/L 15 - 46 U/L [facility] Bilirubin [Mass/Vol] 1.4 mg/dL High 0.2 - 1 .3 mg/dL [facility] Calcium [Mass/Vol] 9.2 mg/dL 8.4 - 10. 4 mg/dL [facility] Chloride [Moles/Vol] 104 mmol/L 98 - 10 7 mmol/L [facility] CO2 [Moles/Vol] 26 mmol/L 22 - 30 mmol/L [facility] Creatinine [Mass/Vol] 0.85 mg/dL 0.52 - 1.04 mg/dL [facility] GFR/1.73 sq M.predicted (S/P/Bld) [Vol rate/Area] 80.5 mL/min - PINF [facility] Comment on above: Calculation based on the Chronic Kidney Disease Epidemiology Collaboration (CKD-EPI) equation refit without adjustment for race Glucose [Mass/Vol] 152 mg/dL High 70 - 100 mg/dL [facility] Interpretation and review of laboratory results Abnormal [facility] Potassium [Moles/Vol] 4.1 mmol/L 3.5 - 5.1 mmol/L [facility] Protein [Mass/Vol] 7.2 g/dL 6.3 - 8.2 g/dL [facility] Sodium [Moles/Vol] 138 mmol/L 135 - 145 mmol/L [facility] Urea nitrogen [Mass/Vol] 10 mg/dL 7 - 17 mg/dL [facility] Laboratory - Microbiology an d Antimicrobial susceptibilityon 02-19-2024 FLUAV RNA EVERETTE+probe Ql (Resp) Not detected Not Detected [facility] FLUBV RNA EVERETTE+probe Ql (Resp) Not detected Not Detected [facility] RSV RNA EVERETTE+probe Ql (Resp) Not detected Not Detected [facility] SARS-CoV-2 (COVID-19) RNA EVERETTE+probe Ql (Resp) Not detected Not Detected [facility] SARS-CoV-2 (COVID-19) RNA EVERETTE+probe Ql (Unsp spec) Methodology: real-time, RT-PCR The SARS-CoV-2, Flu A/B, and RSV Combo assay is intended for in vitro diagnostic use under the FDA Emergency Use Authorization (EUA). This test has not been FDA cleared or approved. In compliance with this authorization, please visit www.fda.gov/media/043935/d ownload or www.fda.gov/media/241967/d ownload to access the applicable information sheets. [facility] [employer] Manual differential performe d Ql (Bld)on 02-19-2024 Anisocytosis Ql (Bld) Slight Abnormal (none) [facility] Cells Counted Total (Bld) [#] 100 {cells} [facility] [employer] Differential Method Manual differential performed [facility] [employer] Interpretation and review of laboratory results Abnormal [facility] Leukocyte morphology finding Nom (Bld) Normal [facility] Lymphocytes (Bld) [#/Vol] 0.5 10*3/uL Low 1.0 - 4.3 10*3/uL [facility] Lymphocytes Manual 19 [facility] Lymphocytes/100 WBC (Bld) 19 % 15 - 45 % [facility] Monocytes (Bld) [#/Vol] 0.2 10*3/uL 0.0 - 0.9 10*3/uL [facility] [employer] Monocytes Manual 7 [facility] Monocytes/100 WBC (Bld) 7 % 5 - 13 % [facility] Neutrophils (Bld) [#/Vol] 1.8 10*3/uL 1.8 - 7.0 10*3/uL [facility] [employer] Neutrophils Manual 74 [facility] Ovalocytes LM Ql (Bld) Slight Abnormal (none) [facility] Platelet morphology finding Nom (Bld) Normal [facility] Polychromasia LM Ql (Bld) Slight Abnormal (none) [facility] Segmented neutrophils/100 WBC (Bld) 74 % 38 - 82 % [facility] WBC corrected for nucl RBC (Bld) [#/Vol] 2.4 10*3/uL Low 3.6 - 10.7 10*3/uL [facility] SARS-CoV-2, Flu A/B, and RSV Comboon 02-19-2024 Interpretation and review of laboratory results Normal [facility] Urinalysis complete panel (U )on 02-19-2024 Bacteria LM.HPF (Urine sed) [#/Area] Few Abnormal Negative /HPF [facility] Bilirubin Ql (U) Negative Negative mg/dL [facility] Clarity (U) Turbid Abnormal Clear [facility] Color (U) Yellow Lt. Yellow [facility] Epithelial cells.squamous LM.HPF (Urine sed) [#/Area] 26-50 Abnormal [facility] Glucose Ql (U) Normal Normal (<70) mg/dL [facility] Hemoglobin Ql (U) 0.03 mg/dL Abnormal Negative [facility] Interpretation and review of laboratory results Abnormal [facility] Ketones (U) [Mass/Vol] Negative Negative mg/dL [facility] Leukocyte esterase Test strip Ql (U) 250 Abnormal Negative Kevin/uL [facility] Mucus LM.HPF (Urine sed) [#/Area] Few Negative /LPF [facility] Nitrite Ql (U) Negative Negative [facility] pH (U) 6.0 [pH] 5.0 - 8.0 pH [facility] Protein (U) [Mass/Vol] 100 mg/dL Abnormal Negative [facility] RBC LM.HPF (Urine sed) [#/Area] 3-5 Abnormal [facility] Specific gravity (U) [Rel density] 1.015 1.005 - 1.030 [facility] Urobilinogen (U) [Mass/Vol] Normal Normal (0-1) mg/dL [facility] WBC LM.HPF (Urine sed) [#/Area] 6-10 Abnormal [facility] Laboratory - Chemistry and C hemistry - challengeOrdered By: Kati Godfrey on 12-13-2023 Glucose [Mass/Vol] 150 mg/dL [facility] Laboratory - Chemistry and C hemistry - challengeon 12-13-2023 Glucose [Mass/Vol] 150 mg/dL High 70 - 100 mg/dL [facility] Glucose [Mass/Vol] 126 mg/dL High 70 - 100 mg/dL [facility] No Panel InformationOrdered By: Kati Godfrey on 12-13-2023 Interpretation and review of laboratory results Normal [facility] Radiology Study observation (narrative) [facility] No Panel Informationon 12-12 Interpretation and review of laboratory results Abnormal [facility]: [facility], [address] [facility] [address] CLIA ID: [id number] [facility] Interpretation and review of laboratory results Abnormal [facility] Performed by: [facility], [address] [facility] [address] CLIA ID: [id number] [facility] Radiology Study observation (narrative) [facility] Radiology Study observation (narrative) [facility] Laboratory - Chemistry and C hemistry - challengeon 12-04-2023 Glucose [Mass/Vol] 122 mg/dL High 70 - 100 mg/dL [facility] Glucose [Mass/Vol] 133 mg/dL High 70 - 100 mg/dL [facility] No Panel Informationon 12-03 Interpretation and review of laboratory results Abnormal [facility] Performed by: [facility], [address] [facility] [address] CLIA ID: [id number] [facility] Interpretation and review of laboratory results Abnormal [facility] Performed by: [facility], [address] [facility] [address] CLIA ID: [id number] [facility] Radiology Study observation (narrative) [facility] Radiology Study observation (narrative) [facility] CBC W Auto Differential pane l (Bld)Ordered By: Jennifer Walters on 10-12-2023 Erythrocyte distribution width (RBC) [Ratio] 15.4 % High 11.5 - 15.0 % [facility] Hematocrit (Bld) [Volume fraction] 36.8 % 35.0 - 47.0 % [facility] Hemoglobin (Bld) [Mass/Vol] 11.6 g/dL Low 11.7 - 16.0 g/dL [facility] Interpretation and review of laboratory results Abnormal [facility] [employer] IPF 4 [facility] MCH (RBC) [Entitic mass] 26.4 pg 26.0 - 34.0 pg [facility] MCHC (RBC) [Mass/Vol] 31.5 % 30.5 - 36.0 % [facility] MCV (RBC) [Entitic vol] 83.8 fL 77.0 - 99.0 fL [facility] Platelet mean volume (Bld) [Entitic vol] 10.9 fL 9.0 - 12.7 fL [facility] Platelets (Bld) [#/Vol] 65 10*3/uL Low 140 - 440 10*3/uL [facility] RBC (Bld) [#/Vol] 4.39 10*6/uL 3.80 - 5.2 0 10*6/uL [facility] WBC (Bld) [#/Vol] 4.0 10*3/uL 3.6 - 10.7 10*3/uL [facility] Comprehensive metabolic 1998 panelOrdered By: Nesha Giron on 10-12-2023 Albumin [Mass/Vol] 3.6 g/dL 3.5 - 5.0 g/dL [facility] ALP [Catalytic activity/Vol] 92 U/L 38 - 126 U/L [facility] ALT [Catalytic activity/Vol] 27 U/L 0 - 34 U/L [facility] Anion gap [Moles/Vol] 8 mmol/L 3 - 13 mmol/L [facility] AST [Catalytic activity/Vol] 29 U/L 15 - 46 U/L [facility] Bilirubin [Mass/Vol] 1.1 mg/dL 0.2 - 1 .3 mg/dL [facility] Calcium [Mass/Vol] 9.2 mg/dL 8.4 - 10. 4 mg/dL [facility] Chloride [Moles/Vol] 103 mmol/L 98 - 10 7 mmol/L [facility] CO2 [Moles/Vol] 23 mmol/L 22 - 30 mmol/L [facility] [facility] Creatinine [Mass/Vol] 0.81 mg/dL 0.52 - 1.04 mg/dL [facility] GFR/1.73 sq M.predicted MDRD (S/P/Bld) [Vol rate/Area] 85.3 mL/min/{1.73_m2} - PINF [facility] Comment on above: Calculation based on the Chronic Kidney Disease Epidemiology Collaboration (CKD-EPI) equation refit without adjustment for race Glucose [Mass/Vol] 248 mg/dL High 70 - 100 mg/dL [facility] Interpretation and review of laboratory results Abnormal [facility] Potassium [Moles/Vol] 4.8 mmol/L 3.5 - 5.1 mmol/L [facility] Protein [Mass/Vol] 7.3 g/dL 6.3 - 8.2 g/dL [facility] Sodium [Moles/Vol] 133 mmol/L Low 135 - 145 mmol/L [facility] Urea nitrogen [Mass/Vol] 22 mg/dL High 7 - 17 mg/dL [facility] Laboratory - Chemistry and C hemistry - challengeon 10-12-2023 Glucose [Mass/Vol] 337 mg/dL High 70 - 100 mg/dL [facility] Glucose [Mass/Vol] 273 mg/dL High 70 - 100 mg/dL [facility] Glucose [Mass/Vol] 273 mg/dL [facility] Glucose [Mass/Vol] 245 mg/dL High 70 - 100 mg/dL [facility] Glucose [Mass/Vol] 245 mg/dL [facility] Glucose [Mass/Vol] 218 mg/dL High 70 - 100 mg/dL [facility] Glucose [Mass/Vol] 218 mg/dL [facility] Cortisol [Mass/Vol] 21.4 ug/dL [facility] Glucose [Mass/Vol] 207 mg/dL High 70 - 100 mg/dL [facility] Glucose [Mass/Vol] 207 mg/dL [facility] Glucose [Mass/Vol] 126 mg/dL High 70 - 100 mg/dL [facility] Glucose [Mass/Vol] 126 mg/dL [facility] Glucose [Mass/Vol] 90 mg/dL 70 - 100 mg/dL [facility] Glucose [Mass/Vol] 90 mg/dL [facility] Laboratory - Coagulationon 0 10-12-2023 aPTT Coag (PPP) [Time] 22.0 s 20.0 - 30.5 s [facility] INR Coag (PPP) [Relative time] 1.1 {INR} 0.9 - 1.1 [facility] Comment on above: Recommended Anticoag ulant Therapy: [...] s 9.0 - 12.0 s [facility] - Hematology and Cell countson 04-02-2024 Band form neutrophils (Bld) [#/Vol] 0.0 10*3/uL NINF - 0.0 10*3/uL [facility] Band form neutrophils/100 WBC (Bld) 1 % High NINF - 0 % [facility] Basophils (Bld) [#/Vol] 0.1 10*3/uL 0.0 - 0.2 10*3/uL [facility] Basophils/100 WBC (Bld) 2 % 0 - 2 % [facility] Lymphocytes (Bld) [#/Vol] 0.0 10*3/uL Low 1.0 - 4.3 10*3/uL [facility] Lymphocytes/100 WBC (Bld) 1 % Low 15 - 45 % [facility] Monocytes (Bld) [#/Vol] 0.0 10*3/uL 0.0 - 0.9 10*3/uL [facility] Monocytes/100 WBC (Bld) 1 % Low 5 - 13 % [facility] Neutrophils (Bld) [#/Vol] 3.9 10*3/uL 1.8 - 7.5 10*3/uL [facility] RBC morphology finding Nom (Bld) Normal [facility] Segmented neutrophils/100 WBC (Bld) 96 % High 38 - 82 % [facility] Laboratory - Serology - non- microon 10-12-2023 Cyclic citrullinated peptide IgG Qn U/mL 0.0 - 4.9 U/mL [facility] Comment on above: 0.0 - 4.9 NEGATIVE >= 5.0 POSITIVE No Panel Informationon 10-11 Interpretation and review of laboratory results Abnormal [facility] Performed by: [facility], [address] [facility] [address] CLIA ID: [id number] [facility] Interpretation and review of laboratory results Abnormal [facility] Performed by: [facility], [address] [facility] [address] CLIA ID: [id number] [facility] Interpretation and review of laboratory results Normal [facility] Interpretation and review of laboratory results Abnormal [facility] Performed by: [facility], [address] [facility] [address] CLIA ID: [id number] [facility] Interpretation and review of laboratory results Normal [facility] Interpretation and review of laboratory results Normal [facility] Interpretation and review of laboratory results Abnormal [facility] Performed by: [facility], [address] [facility] [address] CLIA ID: [id number] [facility] Interpretation and review of laboratory results Normal [facility] Atypical Lymphocytes Manual [facility] Bands Manual 1 [facility] Basophils Manual 2 [facility] Blasts Manual [facility] Eosinophils Manual [facility] Interpretation and review of laboratory results Abnormal [facility] Lymphocytes Manual 1 [facility] Metamyelocytes Manual [place] [facility] Monocytes Manual 1 [facility] Myelocytes Manual [facility] Neutrophils Manual 96 [facility] Promyelocytes Manual [facility] Unclassified Cells, Manual [facility] Interpretation and review of laboratory results Normal [facility] Sinus rhythm with no rmal rate, intervals and QRS duration. No acute ischemic changes. Nonspecific INTRAVENTRICULAR CONDUCTION DELAY, similar to prior No acute ischemic changes Similar to previous EKG Electronically Signed On 10-12-2023 04:24:23 EDT by Ray Morales DO - 10/12/2023 IMPRESSION: Sinus rhythm with normal rate, intervals and QRS duration. No acute ischemic changes. Nonspecific INTRAVENTRICULAR CONDUCTION DELAY, similar to prior No acute ischemic changes Similar to previous EKG Electronically Signed On 10-12-2023 04:24:23 EDT by Ray Ortiz [facility] Before 10am 4.5-22. 7 ug/dL After 5pm 1.7-14.1 ug/dL [facility] Interpretation and review of laboratory results Abnormal [facility] Performed by: [facility], [address] [facility] [address] CLIA ID: [id number] [facility] Interpretation and review of laboratory results Normal [facility] Interpretation and review of laboratory results Abnormal [facility] Performed by: [facility], [address] [facility] [address] CLIA ID: [id number] [facility] Interpretation and review of laboratory results Normal [facility] Interpretation and review of laboratory results Normal [facility] Performed by: [facility], [address] [facility] [address] CLIA ID: [id number] [facility] Interpretation and review of laboratory results Normal [facility] Radiology Study observation (narrative) [facility] Radiology Study observation (narrative) [facility] Radiology Study observation (narrative) [facility] Radiology Study observation (narrative) [facility] Radiology Study observation (narrative) [facility] Radiology Study observation (narrative) [facility] Radiology Study observation (narrative) [facility] Radiology Study observation (narrative) [facility] Radiology Study observation (narrative) [facility] Radiology Study observation (narrative) [facility] Radiology Study observation (narrative) [facility] Radiology Study observation (narrative) [facility] Radiology Study observation (narrative) [facility] [employer] No Panel InformationOrdered By: Ray Ortiz on 10-12-2023 P Renovo 57 degrees [facility] [employer] Work Phone: CO Interval 192 ms [facility] [employer] Work Phone: QRS Renovo -62 degrees [facility] [employer] Work Phone: QRSD Interval 123 ms [facility] [employer] Work Phone: QT Interval 443 ms [facility] [employer] Work Phone: QTC Interval 479 ms [facility] [employer] Work Phone: T Wave Renovo 66 degrees [facility] [employer] Work Phone: [facility] [employer] Work Phone: Vital signsOrdered By: Mynor Ortiz on 10-12-2023 Heart rate 70 /min bpm [facility] [employer] Work Phone: CBC W Auto Differential pane l (Bld)Ordered By: Francisca Boo on 10-11-2023 Erythrocyte distribution width (RBC) [Ratio] 15.5 % High 11.5 - 15.0 % [facility] Hematocrit (Bld) [Volume fraction] 41.4 % 35.0 - 47.0 % [facility] Hemoglobin (Bld) [Mass/Vol] 13.1 g/dL 11.7 - 16.0 g/dL [facility] Interpretation and review of laboratory results Abnormal [facility] [employer] IPF 4 [facility] MCH (RBC) [Entitic mass] 26.3 pg 26.0 - 34.0 pg [facility] MCHC (RBC) [Mass/Vol] 31.6 % 30.5 - 36.0 % [facility] MCV (RBC) [Entitic vol] 83.1 fL 77.0 - 99.0 fL [facility] Platelet mean volume (Bld) [Entitic vol] 9.8 fL 9.0 - 12.7 fL [facility] Platelets (Bld) [#/Vol] 74 10*3/uL Low 140 - 440 10*3/uL [facility] RBC (Bld) [#/Vol] 4.98 10*6/uL 3.80 - 5.2 0 10*6/uL [facility] WBC (Bld) [#/Vol] 6.1 10*3/uL 3.6 - 10.7 10*3/uL [facility] CT Head WO contraston 2023 1. No acute intracranial finding. Report Dictated on Electronically Signed By: Juan A Bo MD Electronically Signed Date/Time: 10/11/2023 9:02 PM EDT [facility] [employer] [facility] Patient Name: MELANIE REA : 1965 [...] cisterns. No evidence of acute cortical infarct. [facility] Juan A Bo MD - 10/11/2023 [...] Electronically Signed Date/Time: 10/11/2023 9:02 PM EDT [facility] Radiology Study observation (narrative) [facility] CT Head WO contrastOrdered B y: Juan A Bo on 10-11-2023 [facility] [employer] Work Phone: Comprehensive metabolic 1998 panelOrdered By: Flavia Villaseñor on 10-11-2023 Albumin [Mass/Vol] 4.4 g/dL 3.5 - 5.0 g/dL [facility] ALP [Catalytic activity/Vol] 111 U/L 38 - 126 U/L [facility] ALT [Catalytic activity/Vol] 30 U/L 0 - 34 U/L [facility] Anion gap [Moles/Vol] 10 mmol/L 3 - 13 mmol/L [facility] AST [Catalytic activity/Vol] 31 U/L 15 - 46 U/L [facility] Bilirubin [Mass/Vol] 1.3 mg/dL 0.2 - 1 .3 mg/dL [facility] Calcium [Mass/Vol] 9.9 mg/dL 8.4 - 10. 4 mg/dL [facility] Chloride [Moles/Vol] 104 mmol/L 98 - 10 7 mmol/L [facility] CO2 [Moles/Vol] 26 mmol/L 22 - 30 mmol/L [facility] Creatinine [Mass/Vol] 0.87 mg/dL 0.52 - 1.04 mg/dL [facility] GFR/1.73 sq M.predicted MDRD (S/P/Bld) [Vol rate/Area] 78.3 mL/min/{1.73_m2} - PINF [facility] Comment on above: Calculation based on the Chronic Kidney Disease Epidemiology Collaboration (CKD-EPI) equation refit without adjustment for race Glucose [Mass/Vol] 27 mg/dL Critically low 70 - 10 0 mg/dL [facility] Interpretation and review of laboratory results Abnormal [facility] Potassium [Moles/Vol] 3.4 mmol/L Low 3.5 - 5.1 mmol/L [facility] Protein [Mass/Vol] 8.7 g/dL High 6.3 - 8.2 g/dL [facility] Sodium [Moles/Vol] 140 mmol/L 135 - 145 mmol/L [facility] Urea nitrogen [Mass/Vol] 19 mg/dL High 7 - 17 mg/dL [facility] Laboratory - Chemistry and C hemistry - challengeon 10-11-2023 Glucose [Mass/Vol] 108 mg/dL High 70 - 100 mg/dL [facility] Glucose [Mass/Vol] 129 mg/dL High 70 - 100 mg/dL [facility] Glucose [Mass/Vol] 54 mg/dL Low 70 - 100 mg/dL [facility] Glucose [Mass/Vol] 80 mg/dL 70 - 100 mg/dL [facility] Laboratory - Chemistry and C hemistry - challengeOrdered By: Pinky Copeland on 10-11-2023 Glucose [Mass/Vol] 108 mg/dL [facility] Laboratory - Hematology and Cell countson 10-11-2023 Lymphocytes (Bld) [#/Vol] 0.4 10*3/uL Low 1.0 - 4.3 10*3/uL [facility] Lymphocytes/100 WBC (Bld) 7 % Low 15 - 45 % [facility] Monocytes (Bld) [#/Vol] 0.7 10*3/uL 0.0 - 0.9 10*3/uL [facility] Monocytes/100 WBC (Bld) 11 % 5 - 13 % [facility] Neutrophils (Bld) [#/Vol] 4.9 10*3/uL 1.8 - 7.5 10*3/uL [facility] RBC morphology finding Nom (Bld) Normal [facility] Segmented neutrophils/100 WBC (Bld) 80 % 38 - 82 % [facility] Variant lymphocytes (Bld) [#/Vol] 0.1 10*3/uL High NINF - 0.0 10*3/uL [facility] Variant lymphocytes/100 WBC (Bld) 2 % High NINF - 0 % [facility] No Panel Informationon 10-10 Interpretation and review of laboratory results Abnormal [facility] Performed by: [facility], [address] [facility] [address] CLIA ID: [id number] [facility] Interpretation and review of laboratory results Abnormal [facility] Performed by: [facility], [address] [facility] [place], [facility] [address] CLIA ID: [id number] [facility] Interpretation and review of laboratory results Abnormal [facility] Performed by: [facility], [address] [facility] [place], [facility] [address] CLIA ID: [id number] [facility] Atypical Lymphocytes Manual 2 [facility] Bands Manual [facility] Basophils Manual [facility] Blasts Manual [facility] Eosinophils Manual [facility] Interpretation and review of laboratory results Abnormal [facility] Lymphocytes Manual 7 [facility] Metamyelocytes Manual [facility] Monocytes Manual 11 [facility] Myelocytes Manual [facility] Neutrophils Manual 81 [facility] Promyelocytes Manual [facility] Unclassified Cells, Manual [facility] Interpretation and review of laboratory results Normal [facility] Performed by: [facility] [place] [facility], [address] [facility] [address] CLIA ID: [id number] [facility] Radiology Study observation (narrative) [facility] Radiology Study observation (narrative) [facility] Radiology Study observation (narrative) [facility] Radiology Study observation (narrative) [facility] No Panel InformationOrdered By: Pinky Copeland on 10-11-2023 Interpretation and review of laboratory results Normal [facility] Radiology Study observation (narrative) [facility] CBC W Auto Differential pane l (Bld)Ordered By: Amado Go on 09-30-2023 Basophils (Bld) [#/Vol] 0.0 10*3/uL 0.0 - 0.2 10*3/uL [facility] Basophils/100 WBC (Bld) 0.4 % 0.0 - 2.0 % [facility] Eosinophils (Bld) [#/Vol] 0.0 10*3/uL 0.0 - 0.5 10*3/uL [facility] Eosinophils/100 WBC (Bld) 0.0 % 0.0 - 6.0 % [facility] Erythrocyte distribution width (RBC) [Ratio] 15.4 % High 11.5 - 15.0 % [facility] Hematocrit (Bld) [Volume fraction] 35.6 % 35.0 - 47.0 % [facility] Hemoglobin (Bld) [Mass/Vol] 11.2 g/dL Low 11.7 - 16.0 g/dL [facility] Immature granulocytes (Bld) [#/Vol] 0.0 10*3/uL NINF - 0.1 10*3/uL [facility] Immature granulocytes/100 WBC (Bld) 1.2 % 0.0 - 2.0 % [facility] Interpretation and review of laboratory results Abnormal [facility] IPF 4 [facility] Lymphocytes (Bld) [#/Vol] 0.3 10*3/uL Low 1.0 - 4.3 10*3/uL [facility] Lymphocytes/100 WBC (Bld) 12.9 % Low 15.0 - 45.0 % [facility] MCH (RBC) [Entitic mass] 27.1 pg 26.0 - 34.0 pg [facility] MCHC (RBC) [Mass/Vol] 31.5 % 30.5 - 36.0 % [facility] MCV (RBC) [Entitic vol] 86.2 fL 77.0 - 99.0 fL [facility] Monocytes (Bld) [#/Vol] 0.2 10*3/uL 0.0 - 0.9 10*3/uL [facility] Monocytes/100 WBC (Bld) 8.3 % 5.0 - 13.0 % [facility] Neutrophils (Bld) [#/Vol] 1.9 10*3/uL 1.8 - 7.5 10*3/uL [facility] Neutrophils/100 WBC (Bld) 77.2 % 38.0 - 82.0 % [facility] Nucleated RBC/100 WBC (Bld) [Ratio] 0.0 % [facility] Platelet mean volume (Bld) [Entitic vol] 9.9 fL 9.0 - 12.7 fL [facility] Platelets (Bld) [#/Vol] 62 10*3/uL Low 140 - 440 10*3/uL [facility] RBC (Bld) [#/Vol] 4.13 10*6/uL 3.80 - 5.2 0 10*6/uL [facility] WBC (Bld) [#/Vol] 2.4 10*3/uL Low 3.6 - 10.7 10*3/uL [facility] Cobalamin (Vitamin B12) [Mas s/Vol]on 09-30-2023 Interpretation and review of laboratory results Abnormal [facility] Comprehensive metabolic 1998 panelon 09-30-2023 Albumin [Mass/Vol] 4.0 g/dL 3.5 - 5.0 g/dL [facility] ALP [Catalytic activity/Vol] 118 U/L 38 - 126 U/L [facility] ALT [Catalytic activity/Vol] 20 U/L 0 - 34 U/L [facility] Anion gap [Moles/Vol] 8 mmol/L 3 - 13 mmol/L [facility] AST [Catalytic activity/Vol] 30 U/L 15 - 46 U/L [facility] Bilirubin [Mass/Vol] 1.0 mg/dL 0.2 - 1 .3 mg/dL [facility] Calcium [Mass/Vol] 9.4 mg/dL 8.4 - 10. 4 mg/dL [facility] Chloride [Moles/Vol] 105 mmol/L 98 - 10 7 mmol/L [facility] CO2 [Moles/Vol] 28 mmol/L 22 - 30 mmol/L [facility] Creatinine [Mass/Vol] 1.01 mg/dL 0.52 - 1.04 mg/dL [facility] GFR/1.73 sq M.predicted MDRD (S/P/Bld) [Vol rate/Area] 65.5 mL/min/{1.73_m2} - PINF [facility] Comment on above: Calculation based on the Chronic Kidney Disease Epidemiology Collaboration (CKD-EPI) equation refit without adjustment for race Glucose [Mass/Vol] 199 mg/dL High 70 - 100 mg/dL [facility] Interpretation and review of laboratory results Abnormal [facility] [facility] Potassium [Moles/Vol] 4.1 mmol/L 3.5 - 5.1 mmol/L [facility] Protein [Mass/Vol] 7.9 g/dL 6.3 - 8.2 g/dL [facility] Sodium [Moles/Vol] 141 mmol/L 135 - 145 mmol/L [facility] Urea nitrogen [Mass/Vol] 15 mg/dL 7 - 17 mg/dL [facility] Ferritinon 09-30-2023 Ferritin [Mass/Vol] 18 ng/mL 11 - 264 ng/mL [facility] Ferritin [Mass/Vol]on 2023 Interpretation and review of laboratory results Normal [facility] Folateon 09-30-2023 Folate [Mass/Vol] 11.4 ng/mL 2.9 - PINF ng/mL [facility] Folate [Mass/Vol]on 09-30-19 Interpretation and review of laboratory results Normal [facility] Homocysteine, serumon 2023 Homocysteine [Moles/Vol] 13.9 umol/L High 4.7 - 12.6 umol/L [facility] Interpretation and review of laboratory results Abnormal [facility] Iron and Iron binding capaci ty panelon 09-30-2023 Interpretation and review of laboratory results Normal [facility] Iron [Mass/Vol] 60 ug/dL 37 - 170 ug/dL [facility] Iron binding capacity [Mass/Vol] 357 ug/dL 261 - 497 ug/dL [facility] Iron saturation [Mass fraction] 17 % 15 - 50 % [facility] LDH Lactate to pyruvate reac tion [Catalytic activity/Vol]on 09-30-2023 Interpretation and review of laboratory results Normal [facility] Lactate dehydrogenaseon 09-10 LDH Lactate to pyruvate reaction [Catalytic activity/Vol] 137 U/L 120 - 246 U/L [facility] No Panel Informationon 09-29 [facility] Reticulocytes panel (Bld)on 09-30-2023 Reticulocytes/100 RBC (Bld) 1.73 % [facility] Vitamin B12on 09-30-2023 Cobalamin (Vitamin B12) [Mass/Vol] 168 pg/mL Low 239 - 931 pg/mL [facility] Bacteria identified Cx Nom ( U)on 08-28-2023 [facility] CBC panel Auto (Bld)on 08-28 Erythrocyte distribution width (RBC) [Ratio] 15.7 % High 11.0 - 15.0 % [facility] Hematocrit (Bld) [Volume fraction] 36.1 % 35.0 - 45.0 % [facility] Hemoglobin (Bld) [Mass/Vol] 11.9 g/dL 11.7 - 15.5 g/dL [facility] MCH (RBC) [Entitic mass] 28.0 pg 27.0 - 33.0 pg [facility] MCHC (RBC) [Mass/Vol] 33.0 g/dL 32.0 - 36.0 g/dL [facility] MCV (RBC) [Entitic vol] 84.9 fL 80.0 - 100.0 fL [facility] Platelet mean volume (Bld) [Entitic vol] 10.7 fL 7.5 - 12.5 fL [facility] Platelets (Bld) [#/Vol] 58 10*3/uL Low [facility] RBC (Bld) [#/Vol] 4.25 10*6/uL [facility] WBC (Bld) [#/Vol] 3.1 10*3/uL Low [facility] Comprehensive metabolic 1998 panelon 08-28-2023 Albumin [Mass/Vol] 3.6 g/dL 3.6 - 5.1 g/dL [facility] Albumin/Globulin [Mass ratio] 1.1 {ratio} [facility] ALP [Catalytic activity/Vol] 120 U/L 37 - 153 U/L [facility] ALT [Catalytic activity/Vol] 32 U/L High 6 - 29 U/L [facility] AST [Catalytic activity/Vol] 26 U/L 10 - 35 U/L [facility] Bilirubin [Mass/Vol] 0.9 mg/dL 0.2 - 1 .2 mg/dL [facility] Calcium [Mass/Vol] 8.8 mg/dL 8.6 - 10. 4 mg/dL [facility] Chloride [Moles/Vol] 106 mmol/L 98 - 11 0 mmol/L [facility] CO2 [Moles/Vol] 26 mmol/L 20 - 32 mmol/L [facility] Creatinine [Mass/Vol] 0.90 mg/dL 0.50 - 1.03 mg/dL [facility] GFR/1.73 sq M.predicted among non-blacks MDRD (S/P/Bld) [Vol rate/Area] 75 mL/min/{1.73_m2} > OR = 60 mL/min/1.73m 2 [facility] Globulin (S) [Mass/Vol] 3.4 g/dL [facility] Glucose [Mass/Vol] 188 mg/dL High 65 - 99 mg/dL [facility] Comment on above: Fasting reference interval For someone without known diabetes, a glucose value >125 mg/dL indicates that they may have diabetes and this should be confirmed with a follow-up test. Potassium [Moles/Vol] 3.9 mmol/L 3.5 - 5.3 mmol/L [facility] Protein [Mass/Vol] 7.0 g/dL 6.1 - 8.1 g/dL [facility] Sodium [Moles/Vol] 140 mmol/L 135 - 146 mmol/L [facility] Urea nitrogen [Mass/Vol] 14 mg/dL 7 - 25 mg/dL [facility] Urea nitrogen/Creatinine [Mass ratio] SEE NOTE: [facility] Comment on above: Not Reported: BUN an d Creatinine are within reference range. Hemoglobin A1con 08-28-2023 HbA1c (Bld) [Mass fraction] 6.9 % High [facility] Comment on above: For someone without [...] compared to historical results. Lipid 1996 panelon Cholesterol [Mass/Vol] 157 mg/dL [facility] - 200 mg/dL [facility] Cholesterol in HDL [Mass/Vol] 55 mg/dL > OR = 50 [facility] Cholesterol in LDL [Mass/Vol] 86 mg/dL mg/dL (calc) [facility] Comment on above: Reference range: <10 0 Desirable range <100 mg/dL for primary prevention; <70 mg/dL for patients with CHD or diabetic patients with > or = 2 CHD risk factors. LDL-C is now calculated using the Julisa calculation, which is a validated novel method providing better accuracy than the Friedewald equation in the estimation of LDL-C. Ulises HILTON et al. MUNA. 2013;310(19): 0914-5798 (http://education.[employer]/faq/ICV113) Cholesterol non HDL [Mass/Vol] 102 mg/dL [facility] Comment on above: For patients with di abetes plus 1 major ASCVD risk factor, treating to a non-HDL-C goal of <100 mg/dL (LDL-C of <70 mg/dL) is considered a therapeutic option. Cholesterol.total/Cho lesterol in HDL [Mass ratio] 2.9 {ratio} [facility] Triglyceride [Mass/Vol] 74 mg/dL [facility] - 150 mg/dL [facility] No Panel Informationon 08-28 Interpretation and review of laboratory results Abnormal [facility] Urine culture (clean catch)o n 08-28-2023 Bacteria identified Cx Nom (U) SEE NOTE Abnormal [facility] Comment on above: CULTURE, URINE, ROUTINE Micro Number: [id number] Test Status: Final Specimen Source: Urine, clean [...] (dipstick) panel (U)on 08-26-2023 Bilirubin, UA Small [facility] Blood, UA Small [facility] Glucose, UA Negative [facility] Interpretation and review of laboratory results Abnormal [facility] Ketones, POC (mg/dL) Negative [facility] Leukocytes, UA Trace [facility] Nitrite, UA Negative [facility] pH, UA 6.5 [facility] Protein, UA 100 [facility] Spec Grav, UA 1.015 [facility] Urobilinogen, UA 0.2 [facility] Radiology Study observation (narrative) [facility] Basic metabolic 1998 panelon 05-16-2023 Anion gap [Moles/Vol] 6 mmol/L 3 - 13 mmol/L [facility] Calcium [Mass/Vol] 9.4 mg/dL 8.4 - 10. 4 mg/dL [facility] Chloride [Moles/Vol] 105 mmol/L 98 - 10 7 mmol/L [facility] CO2 [Moles/Vol] 27 mmol/L 22 - 30 mmol/L [facility] Creatinine [Mass/Vol] 0.91 mg/dL 0.52 - 1.04 mg/dL [facility] GFR/1.73 sq M.predicted MDRD (S/P/Bld) [Vol rate/Area] 74.7 mL/min/{1.73_m2} - PINF [facility] Comment on above: Calculation based on the Chronic Kidney Disease Epidemiology Collaboration (CKD-EPI) equation refit without adjustment for race Glucose [Mass/Vol] 170 mg/dL High 70 - 100 mg/dL [facility] Potassium [Moles/Vol] 4.2 mmol/L 3.5 - 5.1 mmol/L [facility] Sodium [Moles/Vol] 138 mmol/L 135 - 145 mmol/L [facility] Urea nitrogen [Mass/Vol] 16 mg/dL 7 - 17 mg/dL [facility] CBC W Auto Differential pane l (Bld)Ordered By: Gina Márquez on 05-16-2023 Erythrocyte distribution width (RBC) [Ratio] 16.5 % High 11.5 - 14.5 % [facility] Hematocrit (Bld) [Volume fraction] 38.1 % 35.0 - 47.0 % [facility] Hemoglobin (Bld) [Mass/Vol] 12.3 g/dL 11.7 - 16.0 g/dL [facility] Interpretation and review of laboratory results Abnormal [facility] MCH (RBC) [Entitic mass] 27.3 pg 26.0 - 34.0 pg [facility] MCHC (RBC) [Mass/Vol] 32.3 % 32.0 - 36.0 % [facility] MCV (RBC) [Entitic vol] 84.4 fL 80.0 - 98.0 fL [facility] Platelet mean volume (Bld) [Entitic vol] 8.4 fL 7.4 - 12.4 fL [facility] Platelets (Bld) [#/Vol] 69 10*3/uL Low 140 - 440 10*3/uL [facility] RBC (Bld) [#/Vol] 4.51 10*6/uL 3.8 - 5.20 10*6/uL [facility] WBC (Bld) [#/Vol] 2.9 10*3/uL Low 3.6 - 10.7 10*3/uL [facility] Hepatic function 2000 panelo n 05-16-2023 Albumin [Mass/Vol] 4.0 g/dL 3.5 - 5.0 g/dL [facility] ALP [Catalytic activity/Vol] 150 U/L High 38 - 126 U/L [facility] ALT [Catalytic activity/Vol] 29 U/L 0 - 34 U/L [facility] AST [Catalytic activity/Vol] 35 U/L 15 - 46 U/L [facility] Bilirubin [Mass/Vol] 1.1 mg/dL 0.2 - 1 .3 mg/dL [facility] Bilirubin.conjugated [Mass/Vol] 0.0 mg/dL 0.0 - 0.3 mg/dL [facility] Protein [Mass/Vol] 8.3 g/dL High 6.3 - 8.2 g/dL [facility] Laboratory - Chemistry and C hemistry - challengeon 05-16-2023 Troponin I.cardiac [Mass/Vol] ng/mL NINF - 0.034 ng/mL [facility] Troponin I.cardiac [Mass/Vol] 0.012 ng/mL NINF - 0.034 ng/mL [facility] Magnesium [Mass/Vol] 1.5 mg/dL Low 1.6 - 2 .3 mg/dL [facility] Manual differential performe d Ql (Bld)on 05-16-2023 Anisocytosis Ql (Bld) Moderate Abnormal (none) [facility] Basophils (Bld) [#/Vol] 0.0 10*3/uL 0.0 - 0.2 10*3/uL [facility] Basophils Manual 1 [facility] [employer] Basophils/100 WBC (Bld) 1 % 0 - 2 % [facility] [employer] Cells Counted Total (Bld) [#] 100 {cells} [facility] [employer] Differential Method Manual differential performed [facility] Interpretation and review of laboratory results Abnormal [facility] Leukocyte morphology finding Nom (Bld) Normal [facility] [employer] Lymphocytes (Bld) [#/Vol] 0.6 10*3/uL Low 1.0 - 4.3 10*3/uL [facility] [employer] Lymphocytes Manual 22 [facility] [employer] Lymphocytes/100 WBC (Bld) 22 % 20 - 40 % [facility] [employer] Monocytes (Bld) [#/Vol] 0.1 10*3/uL 0.0 - 0.8 10*3/uL [facility] [employer] Monocytes Manual 5 [facility] [employer] Monocytes/100 WBC (Bld) 5 % 2 - 10 % [facility] [employer] Neutrophils (Bld) [#/Vol] 2.1 10*3/uL 1.8 - 7.0 10*3/uL [facility] [employer] Neutrophils Manual 72 [facility] [employer] Ovalocytes LM Ql (Bld) Slight Abnormal (none) [facility] Platelet morphology finding Nom (Bld) Normal [facility] [employer] Segmented neutrophils/100 WBC (Bld) 72 % 40 - 80 % [facility] [employer] WBC corrected for nucl RBC (Bld) [#/Vol] 2.9 10*3/uL Low 3.6 - 10.7 10*3/uL [facility] [employer] [facility] No Panel InformationOrdered By: Clint Bright on 05-16-2023 P [employer] 57 degrees [employer] Work Phone: CO Interval 187 ms [employer] Work Phone: QRS [employer] -62 degrees [employer] Work Phone: QRSD Interval 106 ms [employer] Work Phone: QT Interval 412 ms [employer] Phone: QTC Interval 434 ms [employer] Phone: T Wave [employer] 60 degrees [employer] Phone: [employer] Phone: No Panel Informationon 05-16 Sinus rhythm Left anterior fascicular block NONSPECIFIC REPOLARIZATION ABNORMALITIES Electronically Signed On 05-16-2023 23:22:40 EST by Clint Bright Clint Jaquez MD - 05/16/2023 IMPRESSION: Sinus rhythm Left anterior fascicular block NONSPECIFIC REPOLARIZATION ABNORMALITIES Electronically Signed On 05-16-2023 23:22:40 EST by [facility] Interpretation and review of laboratory results Abnormal [employer] Troponin I.cardiac [Mass/Vol ]on 05-16-2023 Interpretation and review of laboratory results Normal [facility] [employer] Patients with high l evels of Biotin oral intake (ie >5 mg/day) may have falsely decreased Troponin levels. [employer] Interpretation and review of laboratory results Normal [employer] Patients with high l evels of Biotin oral intake (ie >5 mg/day) may have falsely decreased Troponin levels. [employer] Vital signsOrdered By: Clint Bright on 05-16-2023 Heart rate 67 /min bpm [employer] Phone: XR Chest Single viewon 05-16 No acute cardiopulmonary disease. Report Dictated on Electronically Signed By: Fadi Sumner MD Electronically Signed Date/Time: 05/16/2023 1:16 PM [facility] Name[facility] 1965 [id number] Exam Date/Time: 05/16/2023 13:27 Procedure: XR CHEST [...] changes of the thoracic spine are noted. [facility] Fadi Sumner MD - 05/16/2023 Patient [...] Electronically Signed Date/Time: 05/16/2023 1:16 PM EST [facility] Radiology Study observation (narrative) [facility] XR Chest Single viewOrdered By: Fadi Sumner on 05-16-2023 [facility] CT Cervical spine WO contras ton 03-15-2023 No fracture or dislocation of the cervical spine. Mild degenerative changes from C4 through C6. Report Dictated on Electronically Signed By: Fadi Sumner MD Electronically Signed Date/Time: 03/15/2023 11:38 AM EDT [facility] Patient Name: MELANIE [...] No bony neural foraminal narrowing is seen. [facility] Fadi Sumner MD - 03/15/2023 Patient [...] Electronically Signed Date/Time: 03/15/2023 11:34 AM EDT [facility] [employer] [place] [facility] Patient Name: MELANIE REA : 1965 [...] portion of the paranasal sinuses appear clear. [facility] Fadi Sumner MD - 03/15/2023 Patient [...] Electronically Signed Date/Time: 03/15/2023 11:34 AM EDT [employer] CT Head WO contrastOrdered B y: Fadi Sumner on 03-15-2023 [employer] Work Phone: No Panel Informationon 03-15 Radiology Study observation (narrative) [facility] - Chemistry and C hemistry - challengeon 02-20-2023 Glucose [Mass/Vol] 152 mg/dL High 70 - 100 mg/dL [facility] Glucose [Mass/Vol] 170 mg/dL High 70 - 100 mg/dL [facility] Glucose [Mass/Vol] 149 mg/dL High 70 - 100 mg/dL [facility] No Panel Informationon 02-20 Interpretation and review of laboratory results Abnormal [facility] Performed by: [facility], [address] [facility] [address] CLIA ID: [id number] [facility] Interpretation and review of laboratory results Abnormal [facility] Performed by: [facility], [address] [place] [id number] CLIA ID: [id number] [facility] Interpretation and review of laboratory results Abnormal [facility] Performed by: [facility], [address] [place] [id number] CLIA ID: [id number] [facility] Laboratory - Chemistry and C hemistry - challengeon 02-19-2023 Glucose [Mass/Vol] 159 mg/dL High 70 - 100 mg/dL [facility] Glucose [Mass/Vol] 153 mg/dL High 70 - 100 mg/dL [facility] Glucose [Mass/Vol] 231 mg/dL High 70 - 100 mg/dL [facility] Glucose [Mass/Vol] 122 mg/dL High 70 - 100 mg/dL [facility] Glucose [Mass/Vol] 78 mg/dL 70 - 100 mg/dL [facility] Glucose [Mass/Vol] 82 mg/dL 70 - 100 mg/dL [facility] No Panel Informationon 02-19 Interpretation and review of laboratory results Abnormal [facility] Performed by: [facility], [address] [place] [id number] CLIA ID: [id number] [facility] Interpretation and review of laboratory results Abnormal [facility] Performed by: [facility], [address] [facility] [address] CLIA ID: [id number] [facility] Interpretation and review of laboratory results Abnormal [facility] Performed by: [facility], [address] [place] [address] CLIA ID: [id number] [facility] Interpretation and review of laboratory results Abnormal [facility] Performed by: [facility], [address] [facility] [place], [facility] [address] CLIA ID: [id number] [facility] Interpretation and review of laboratory results Normal [facility] Performed by: [facility], [address] [facility] [place], [facility] [address] CLIA ID: [id number] [facility] Interpretation and review of laboratory results Normal [facility] Performed by: [facility], [address] [facility] [place], [facility] [address] CLIA ID: [id number] [facility] CBC W Auto Differential pane l (Bld)on 02-18-2023 Basophils (Bld) [#/Vol] 0.0 10*3/uL 0.0 - 0.2 10*3/uL [facility] Basophils/100 WBC (Bld) 0.1 % 0.0 - 2.0 % [facility] Eosinophils (Bld) [#/Vol] 0.0 10*3/uL 0.0 - 0.5 10*3/uL [facility] Eosinophils/100 WBC (Bld) 0.0 % Low 1.0 - 6.0 % [facility] Erythrocyte distribution width (RBC) [Ratio] 16.5 % High 11.5 - 14.5 % [facility] Hematocrit (Bld) [Volume fraction] 38.4 % 35.0 - 47.0 % [facility] Hemoglobin (Bld) [Mass/Vol] 12.2 g/dL 11.7 - 16.0 g/dL [facility] Interpretation and review of laboratory results Abnormal [facility] Lymphocytes (Bld) [#/Vol] 0.6 10*3/uL Low 1.0 - 4.3 10*3/uL [facility] Lymphocytes/100 WBC (Bld) 20.0 % 20.0 - 40.0 % [facility] MCH (RBC) [Entitic mass] 27.1 pg 26.0 - 34.0 pg [facility] MCHC (RBC) [Mass/Vol] 31.8 % Low 32.0 - 36.0 % [facility] MCV (RBC) [Entitic vol] 85.0 fL 80.0 - 98.0 fL [facility] Monocytes (Bld) [#/Vol] 0.3 10*3/uL 0.0 - 0.8 10*3/uL [facility] Monocytes/100 WBC (Bld) 8.3 % 2.0 - 10.0 % [facility] Neutrophils (Bld) [#/Vol] 2.2 10*3/uL 1.8 - 7.0 10*3/uL [facility] Neutrophils/100 WBC (Bld) 71.6 % 40.0 - 80.0 % [facility] Nucleated RBC/100 WBC (Bld) [Ratio] 0.1 % [facility] Platelet mean volume (Bld) [Entitic vol] 8.2 fL 7.4 - 12.4 fL [facility] Platelets (Bld) [#/Vol] 74 10*3/uL Low 140 - 440 10*3/uL [facility] RBC (Bld) [#/Vol] 4.52 10*6/uL 3.8 - 5.20 10*6/uL [facility] WBC (Bld) [#/Vol] 3.0 10*3/uL Low 3.6 - 10.7 10*3/uL [facility] Comprehensive metabolic 1998 panelon 02-18-2023 Albumin [Mass/Vol] 3.8 g/dL 3.5 - 5.0 g/dL [facility] ALP [Catalytic activity/Vol] 139 U/L High 38 - 126 U/L [facility] ALT [Catalytic activity/Vol] 20 U/L 0 - 34 U/L [facility] Anion gap [Moles/Vol] 7 mmol/L 3 - 13 mmol/L [facility] AST [Catalytic activity/Vol] 41 U/L 15 - 46 U/L [facility] Bilirubin [Mass/Vol] 0.7 mg/dL 0.2 - 1 .3 mg/dL [facility] Calcium [Mass/Vol] 9.1 mg/dL 8.4 - 10. 4 mg/dL [facility] Chloride [Moles/Vol] 104 mmol/L 98 - 10 7 mmol/L [facility] CO2 [Moles/Vol] 29 mmol/L 22 - 30 mmol/L [facility] Creatinine [Mass/Vol] 0.91 mg/dL 0.52 - 1.04 mg/dL [facility] GFR/1.73 sq M.predicted MDRD (S/P/Bld) [Vol rate/Area] 74.7 mL/min/{1.73_m2} - PINF [facility] Comment on above: Calculation based on the Chronic Kidney Disease Epidemiology Collaboration (CKD-EPI) equation refit without adjustment for race Glucose [Mass/Vol] 56 mg/dL Low 70 - 100 mg/dL [facility] Interpretation and review of laboratory results Abnormal [facility] Potassium [Moles/Vol] 3.7 mmol/L 3.5 - 5.1 mmol/L [facility] Protein [Mass/Vol] 7.4 g/dL 6.3 - 8.2 g/dL [facility] Sodium [Moles/Vol] 140 mmol/L 135 - 145 mmol/L [facility] Urea nitrogen [Mass/Vol] 17 mg/dL 7 - 17 mg/dL [facility] Laboratory - Chemistry and C hemistry - challengeon 02-18-2023 Glucose [Mass/Vol] 85 mg/dL 70 - 100 mg/dL [facility] Glucose [Mass/Vol] 62 mg/dL Low 70 - 100 mg/dL [facility] Glucose [Mass/Vol] 82 mg/dL 70 - 100 mg/dL [facility] Glucose [Mass/Vol] 60 mg/dL Low 70 - 100 mg/dL [facility] Laboratory - Microbiology an d Antimicrobial susceptibilityon 02-18-2023 FLUAV RNA EVERETTE+probe Ql (Resp) Not detected Not Detected [facility] FLUBV RNA EVERETTE+probe Ql (Resp) Not detected Not Detected [facility] RSV RNA EVERETTE+probe Ql (Resp) Not detected Not Detected [facility] SARS-CoV-2 (COVID-19) RNA EVERETTE+probe Ql (Resp) Not detected Not Detected [facility] SARS-CoV-2 (COVID-19) RNA EVERETTE+probe Ql (Unsp spec) Methodology: real-time, RT-PCR The SARS-CoV-2, Flu A/B, and RSV Combo assay is intended for in vitro diagnostic use under the FDA Emergency Use Authorization (EUA). This test has not been FDA cleared or approved. In compliance with this authorization, please visit www.fda.gov/media/737910/d ownload or www.fda.gov/media/715299/d ownload to access the applicable information sheets. [facility] No Panel Informationon 02-18 Interpretation and review of laboratory results Normal [facility]formed by: [facility], [address] [place], [facility] [address] CLIA ID: [id number] [facility] Interpretation and review of laboratory results Abnormal [facility] Performed by: [facility], [address] [place], [facility] [address] CLIA ID: [id number] [facility] Interpretation and review of laboratory results Normal [facility] Performed by: [facility], [address] [place], [facility] [address] CLIA ID: [id number] [facility] Interpretation and review of laboratory results Abnormal [facility] Performed by: [facility], [address] [place], [facility] [address] CLIA ID: [id number] [facility] SARS-CoV-2, Flu A/B, and RSV Comboon 02-18-2023 Interpretation and review of laboratory results Normal [facility] Urinalysis complete panel (U )Ordered By: Porfirio Whalen on 02-18-2023 Bacteria LM.HPF (Urine sed) [#/Area] Few Abnormal Negative /HPF [facility] Bilirubin Ql (U) Negative Negative mg/dL [facility] Clarity (U) Clear Clear [facility] Color (U) Yellow Lt. Yellow [facility] Epithelial cells.squamous LM.HPF (Urine sed) [#/Area] 11-25 Abnormal [facility] Glucose Ql (U) Normal Normal (<70) mg/dL [facility] Hemoglobin Ql (U) Negative Negative mg/dL [facility] Hyaline casts Auto (Urine sed) [#/Area] 0-2 Abnormal Negative /LPF [facility] Interpretation and review of laboratory results Abnormal [facility] Ketones (U) [Mass/Vol] Negative Negative mg/dL [facility] Leukocyte esterase Test strip Ql (U) Negative Negative Kevin/uL [facility] Mucus LM.HPF (Urine sed) [#/Area] Few Negative /LPF [facility] Nitrite Ql (U) Negative Negative [facility] pH (U) 5.5 [pH] 5.0 - 8.0 pH [facility] Protein (U) [Mass/Vol] 30 mg/dL Abnormal Negative [facility] RBC LM.HPF (Urine sed) [#/Area] 0-2 [facility] Specific gravity (U) [Rel density] 1.019 1.005 - 1.030 [facility] Urobilinogen (U) [Mass/Vol] Normal Normal (0-1) mg/dL [facility] WBC LM.HPF (Urine sed) [#/Area] 0-2 [facility] Basic metabolic 1998 panelon 02-13-2023 Anion gap [Moles/Vol] 4 mmol/L 3 - 13 mmol/L [facility] Calcium [Mass/Vol] 8.6 mg/dL 8.4 - 10. 4 mg/dL [facility] Chloride [Moles/Vol] 104 mmol/L 98 - 10 7 mmol/L [facility] CO2 [Moles/Vol] 27 mmol/L 22 - 30 mmol/L [facility] Creatinine [Mass/Vol] 1.01 mg/dL 0.52 - 1.04 mg/dL [facility] GFR/1.73 sq M.predicted MDRD (S/P/Bld) [Vol rate/Area] 65.9 mL/min/{1.73_m2} - PINF [facility] Comment on above: Calculation based on the Chronic Kidney Disease Epidemiology Collaboration (CKD-EPI) equation refit without adjustment for race Glucose [Mass/Vol] 203 mg/dL High 70 - 100 mg/dL [facility] Interpretation and review of laboratory results Abnormal [facility] Potassium [Moles/Vol] 3.7 mmol/L 3.5 - 5.1 mmol/L [facility] Sodium [Moles/Vol] 135 mmol/L 135 - 145 mmol/L [facility] Urea nitrogen [Mass/Vol] 17 mg/dL 7 - 17 mg/dL [facility] CBC W Auto Differential pane l (Bld)Ordered By: Jelly Knott on 02-13-2023 Basophils (Bld) [#/Vol] 0.0 10*3/uL 0.0 - 0.2 10*3/uL [facility] Basophils/100 WBC (Bld) 0.4 % 0.0 - 2.0 % [facility] Eosinophils (Bld) [#/Vol] 0.0 10*3/uL 0.0 - 0.5 10*3/uL [facility] Eosinophils/100 WBC (Bld) 0.0 % Low 1.0 - 6.0 % [facility] Erythrocyte distribution width (RBC) [Ratio] 16.3 % High 11.5 - 14.5 % [facility] Hematocrit (Bld) [Volume fraction] 35.4 % 35.0 - 47.0 % [facility] Hemoglobin (Bld) [Mass/Vol] 11.5 g/dL Low 11.7 - 16.0 g/dL [facility] Interpretation and review of laboratory results Abnormal [facility] Lymphocytes (Bld) [#/Vol] 0.7 10*3/uL Low 1.0 - 4.3 10*3/uL [facility] Lymphocytes/100 WBC (Bld) 27.0 % 20.0 - 40.0 % [facility] MCH (RBC) [Entitic mass] 27.3 pg 26.0 - 34.0 pg [facility] MCHC (RBC) [Mass/Vol] 32.6 % 32.0 - 36.0 % [facility] MCV (RBC) [Entitic vol] 83.6 fL 80.0 - 98.0 fL [facility] Monocytes (Bld) [#/Vol] 0.2 10*3/uL 0.0 - 0.8 10*3/uL [facility] Monocytes/100 WBC (Bld) 9.2 % 2.0 - 10.0 % [facility] Neutrophils (Bld) [#/Vol] 1.7 10*3/uL Low 1.8 - 7.0 10*3/uL [facility] Neutrophils/100 WBC (Bld) 63.4 % 40.0 - 80.0 % [facility] Nucleated RBC/100 WBC (Bld) [Ratio] 0.1 % [facility] Platelet mean volume (Bld) [Entitic vol] 8.3 fL 7.4 - 12.4 fL [facility] Platelets (Bld) [#/Vol] 64 10*3/uL Low 140 - 440 10*3/uL [facility] RBC (Bld) [#/Vol] 4.23 10*6/uL 3.8 - 5.20 10*6/uL [facility] WBC (Bld) [#/Vol] 2.6 10*3/uL Low 3.6 - 10.7 10*3/uL [facility] Calcium.ionized [Moles/Vol]o n 02-13-2023 Calcium.ionized (Bld) [Moles/Vol] 4.40 mg/dL 4.30 - 5.20 mg/dL [facility] Interpretation and review of laboratory results Normal [facility] PH, IONIZED CALCIUM 7.44 7.31 - 7.46 [facility] Laboratory - Chemistry and C hemistry - challengeon 02-13-2023 Troponin I.cardiac [Mass/Vol] ng/mL 0.000 - 0.034 ng/mL [facility] Glucose [Mass/Vol] 198 mg/dL High 70 - 100 mg/dL [facility] Glucose [Mass/Vol] 198 mg/dL [facility] No Panel Informationon 02-13 Interpretation and review of laboratory results Abnormal [facility] Performed by: [facility], [address] [place] [address] CLIA ID: [id number] [facility] Interpretation and review of laboratory results Normal [facility] Troponin I.cardiac [Mass/Vol ]on 02-13-2023 Interpretation and review of laboratory results Normal [facility] Patients with high l evels of Biotin oral intake (ie >5 mg/day) may have falsely decreased Troponin levels. [facility] XR Chest Single viewon 02-13 1. No acute findings. Report Dictated on Electronically Signed By: John Beaver MD Electronically Signed Date/Time: 02/13/2023 8:07 PM EDT [facility] [employer] [place] [facility] Patient Name: MELANIE REA : 1965 [facility]#: [id number] Exam Date/Time: 02/13/2023 20:08 Procedure: XR CHEST 1 VIEW Ordering Provider: GRADY JOSHUA Reason For Exam: SYNCOPE CHEST PORTABLE CLINICAL INDICATION: SYNCOPE TECHNIQUE: Portable chest x-ray(s). COMPARISON: December,. FINDINGS: Cardiac and mediastinal silhouette within normal limits. Lungs again show mild, discoid atelectasis versus scar projected over left midlung. No significant vascular congestion. No focal consolidation or apparent pneumothorax. Bony thorax grossly unremarkable. [facility] John Beaver MD - 02/13/2023 Patient [...] Electronically Signed Date/Time: 02/13/2023 8:07 PM EDT [facility] Radiology Study observation (narrative) [facility] [employer] XR Chest Single viewOrdered By: John Beaver on 02-13-2023 [facility] [employer] Work Phone: XR Knee - left 4 Viewson 1. No acute osseous abnormality. 2. Mild degenerative change. Report Dictated on Electronically Signed By: John Beaver MD Electronically Signed Date/Time: 02/06/2023 9:44 PM EDT [facility] [employer] [place] [facility] Patient Name: MELANIE REA : 1965 [...] patellofemoral joints spaces. Soft tissues grossly unremarkable. [facility] John Beaver MD - 02/06/2023 Patient Name: MELANIE TOVAR : 1965 [facility]#: [id number] Exam Date/Time: 02/06/2023 21:34 Procedure: XR KNEE [...] Electronically Signed Date/Time: 02/06/2023 9:44 PM EDT [facility] Radiology Study observation (narrative) [facility] XR Knee - left 4 ViewsOrdere d By: John Beaver on 02-06-2023 [facility] Work Phone: Basophil percentageon 2021 Chloride [Moles/Vol] 106 mmol/L 98-107 [facility] Work Phone: Cholesterol [Mass/Vol] 124 mg/dL <200 [facility] Work Phone: Comment on above: <200 mg/dL Desirable 200-240 mg/dL Borderline >240 mg/dL High Risk Glucose [Mass/Vol] 137 mg/dL 74-106 [facility] Work Phone: Comment on above: Fasting Glucose resu lt greater than or equal to 126 mg/dL suggests DIABETES MELLITUS per A.D.A. criteria. Potassium [Moles/Vol] 4.4 mmol/L 3.5-5.1 [facility] Work Phone: Sodium [Moles/Vol] 138 mmol/L 136-145 [facility] Work Phone: Triglyceride [Mass/Vol] 128 mg/dL <199 [facility] Work Phone: Comment on above: The drugs N-Acetylcy steine and Metamizole may falsely depress this assay.Serum Triglycerides Reference Interval Normal <150 mg/dL Borderline high 150 - 199 mg/dL High 200 - 499 mg/dL Very High > or = 500 mg/dL Laboratory - Chemistry and C hemistry - challengeon 05-22-2022 CO2 [Moles/Vol] 26.0 mmol/L 21.0-32.0 [facility] Work Phone: Urea nitrogen/Creatinine [Mass ratio] 21.4 mg/mg 10-20 [facility] Work Phone: No Panel Informationon 05-22 Estimated GFR (MDRD) Amer 76 mL/min >60 [facility] Work Phone: Comment on above: GFR Calc Estimated GFR (MDRD) Non-Af Amer 63 mL/min >60 [facility] Work Phone: Comment on above: Non- GFR Calc Serum or plasma calcium kenna urement (mass/volume)on 05-22-2022 Calcium [Mass/Vol] 9.2 mg/dL 8.5-10.1 [facility] Work Phone: Serum or plasma cholesterol in HDL measurement (mass/volume)on 05-22-2022 Cholesterol in HDL [Mass/Vol] 40 mg/dL >40 [facility] Work Phone: Comment on above: The drugs N-Acetylcy steine and Metamizole may falsely depress this assay. Reference Range HDL <40 mg/dL Low HDL Cholesterol HDL >or= 60 mg/dL High HDL Cholesterol Serum or plasma cholesterol in VLDL measurement (mass/volume)on 05-22-2022 Cholesterol in VLDL [Mass/Vol] 26 mg/dL 5-40 [facility] Work Phone: Serum or plasma creatinine m easurement (mass/volume)on 05-22-2022 Creatinine [Mass/Vol] 0.98 mg/dL 0.55-1.02 [facility] Work Phone: Comment on above: The validity of the calculated GFR & GFRAA in patients over 70 years has not been determined. Clinical correlation is essential. Serum or plasma low density lipoprotein (LDL) cholesterol measurement (mass/volume)on 05-22-2022 Cholesterol in LDL [Mass/Vol] 58 mg/dL 0-130 [facility] Work Phone: Serum or plasma urea nitroge n measurement (mass/volume)on 05-22-2022 Urea nitrogen [Mass/Vol] 21 mg/dL 7-18 [facility] Work Phone: Thin prep Papanicolaou smear with manual screeningon 05-22-2022 Thin prep Papanicolaou smear with manual screening 6 5-15 [facility] Work Phone: Absolute lymphocyte counton 03-07-2022 Lymphocytes Auto (Unsp spec) [#/Vol] 1.02 10*3/uL 0.83-4.51 [facility] Work Phone: Basophil percentageon 2021 Basophils/100 WBC (Bld) 0.3 % 0-1 [facility] Work Phone: Chloride [Moles/Vol] 106 mmol/L 98-107 [facility] Work Phone: Eosinophils/100 WBC (Bld) 0.0 % 0-5 [facility] Work Phone: Glucose [Mass/Vol] 321 mg/dL 74-106 [facility] Work Phone: Comment on above: Slight Lipemia, Resu lt may be falsely increased.Glucose result greater than or equal to 200 mg/dLsuggests DIABETES MELLITUS per A.D.A. criteria. Neutrophils (Bld) [#/Vol] 2.5 10*3/uL 2.0-7.7 [facility] Work Phone: Neutrophils/100 WBC (Bld) 63.5 % 47-70 [facility] Work Phone: Potassium [Moles/Vol] 4.2 mmol/L 3.5-5.1 [facility] Work Phone: Comment on above: Slight Hemolysis, Re sult may be falsely increased.-Slight Lipemia, Result may be falsely increased. Sodium [Moles/Vol] 138 mmol/L 136-145 [facility] Work Phone: WBC (Bld) [#/Vol] 3.9 10*3/uL 4.4-11.0 [facility] Work Phone: Blood erythrocytes count (nu mber/volume)on 03-07-2022 RBC (Bld) [#/Vol] 4.46 10*6/uL 4.2-5.4 [facility] Work Phone: Blood hemoglobin measurement (mass/volume)on 03-07-2022 Hemoglobin (Bld) [Mass/Vol] 12.8 g/dL 12.0-15.0 [facility] Work Phone: Blood lymphocytes/100 leukoc yteson 03-07-2022 Lymphocytes/100 WBC (Bld) 26.0 % 19-41 [facility] Work Phone: Blood monocytes/100 leukocyt eson 03-07-2022 Monocytes/100 WBC (Bld) 9.7 % 0-10 [facility] Work Phone: Blood platelet mean volumeon 03-07-2022 Platelet mean volume (Bld) [Entitic vol] 11.3 fL 6.2-12.0 [facility] Work Phone: Determination of erythrocyte mean corpuscular volume (MCV)on 03-07-2022 MCV (RBC) [Entitic vol] 89.7 fL 81-99 [facility] Work Phone: Hematocrit Auto (Bld) [Volum e fraction]on 03-07-2022 Hematocrit (Bld) [Volume fraction] 40.0 % 37-47 [facility] Work Phone: Laboratory - Chemistry and C hemistry - challengeon 03-07-2022 CO2 [Moles/Vol] 25.0 mmol/L 21.0-32.0 [facility] Work Phone: Comment on above: Slight Lipemia, Resu lt may be falsely increased. Urea nitrogen/Creatinine [Mass ratio] 12.7 mg/mg 10-20 [facility] Work Phone: Laboratory - Hematology and Cell countson 03-07-2022 Erythrocyte distribution width (RBC) [Entitic vol] 52.6 fL 35.1-43.9 [facility] Work Phone: Erythrocyte distribution width (RBC) [Ratio] 16.2 % 11.6-14.6 [facility] Work Phone: Immature granulocytes/100 WBC (Bld) 0.500 % 0.0-0.9 [facility] Work Phone: Comment on above: IG% - Immature Granu locytes (promyelocytes, myelocytes and metamyelocytes) > 1% indicates that a LEFT SHIFT is Present. MCH (RBC) [Entitic mass] 28.7 pg 27.0-32.0 [facility] Work Phone: Nucleated RBC/100 WBC (Bld) [Ratio] 0 % 0-5 [facility] Work Phone: MCHC Auto (RBC) [Mass/Vol]on 03-07-2022 MCHC (RBC) [Mass/Vol] 32.0 g/dL 32-36 [facility] Work Phone: No Panel Informationon 03-07 Troponin I High Sensitivity 18 pg/mL 3.0-54.0 [facility] Work Phone: Comment on above: Please Note: New [place] t Units and Gender Specific Reference Ranges. For more information see Policy Stat Procedure [place] High Sensitivity Troponin (TNIH) and attachments. Estimated Creatinine Clearance Calc 45.93 ml/min [facility] Work Phone: Estimated GFR (MDRD) Amer 57 mL/min >60 [facility] Work Phone: Comment on above: GFR Calc Estimated GFR (MDRD) Non-Af Amer 47 mL/min >60 [facility] Work Phone: Comment on above: Non- GFR Calc Platelets bldon 03-07-2022 Platelets (Bld) [#/Vol] 85 10*3/uL 150-450 [facility] Work Phone: Serum or plasma calcium kenna urement (mass/volume)on 03-07-2022 Calcium [Mass/Vol] 8.8 mg/dL 8.5-10.1 [facility] Work Phone: Comment on above: Slight Lipemia, Resu lt may be falsely increased. Serum or plasma creatinine m easurement (mass/volume)on 03-07-2022 Creatinine [Mass/Vol] 1.26 mg/dL 0.55-1.02 [facility] Work Phone: Comment on above: Slight Lipemia, Resu lt may be falsely increased.The validity of the calculated GFR & GFRAA in patients over 70 years has not been determined. Clinical correlation is essential. Serum or plasma urea nitroge n measurement (mass/volume)on 03-07-2022 Urea nitrogen [Mass/Vol] 16 mg/dL 7-18 [facility] Work Phone: Comment on above: Slight Lipemia, Resu lt may be falsely increased. Thin prep Papanicolaou smear with manual screeningon 03-07-2022 Thin prep Papanicolaou smear with manual screening 7 5-15 [facility] Work Phone: Absolute lymphocyte counton 02-16-2022 Lymphocytes Auto (Unsp spec) [#/Vol] 0.83 10*3/uL 0.83-4.51 [facility] Work Phone: Basophil percentageon 2021 Basophils/100 WBC (Bld) 0.6 % 0-1 [facility] Work Phone: Eosinophils/100 WBC (Bld) 0.0 % 0-5 [facility] Work Phone: Neutrophils (Bld) [#/Vol] 2.4 10*3/uL 2.0-7.7 [facility] Work Phone: Neutrophils/100 WBC (Bld) 65.0 % 47-70 [facility] Work Phone: WBC (Bld) [#/Vol] 3.6 10*3/uL 4.4-11.0 [facility] Work Phone: Blood erythrocytes count (nu mber/volume)on 02-16-2022 RBC (Bld) [#/Vol] 4.61 10*6/uL 4.2-5.4 [facility] Work Phone: Blood hemoglobin measurement (mass/volume)on 02-16-2022 Hemoglobin (Bld) [Mass/Vol] 12.9 g/dL 12.0-15.0 [facility] Work Phone: Blood lymphocytes/100 leukoc yteson 02-16-2022 Lymphocytes/100 WBC (Bld) 23.0 % 19-41 [facility] Work Phone: Blood manual differential co mment interpretation (narrative result)on 02-16-2022 Manual differential comment Clifford (Bld) [Interp] See comment [facility] Work Phone: Comment on above: THROMBOCYTOPENIA NOT ED Blood monocytes/100 leukocyt eson 02-16-2022 Monocytes/100 WBC (Bld) 10.8 % 0-10 [facility] Work Phone: Blood platelet mean volumeon 02-16-2022 Platelet mean volume (Bld) [Entitic vol] 10.6 fL 6.2-12.0 [facility] Work Phone: Determination of erythrocyte mean corpuscular volume (MCV)on 02-16-2022 MCV (RBC) [Entitic vol] 88.5 fL 81-99 [facility] Work Phone: Hematocrit Auto (Bld) [Volum e fraction]on 02-16-2022 Hematocrit (Bld) [Volume fraction] 40.8 % 37-47 [facility] Work Phone: Laboratory - Hematology and Cell countson 02-16-2022 Erythrocyte distribution width (RBC) [Entitic vol] 50.3 fL 35.1-43.9 [facility] Work Phone: Erythrocyte distribution width (RBC) [Ratio] 15.8 % 11.6-14.6 [facility] Work Phone: Immature granulocytes/100 WBC (Bld) 0.600 % 0.0-0.9 [facility] Work Phone: Comment on above: IG% - Immature Granu locytes (promyelocytes, myelocytes and metamyelocytes) > 1% indicates that a LEFT SHIFT is Present. MCH (RBC) [Entitic mass] 28.0 pg 27.0-32.0 [facility] Work Phone: Nucleated RBC/100 WBC (Bld) [Ratio] 0 % 0-5 [facility] Work Phone: MCHC Auto (RBC) [Mass/Vol]on 02-16-2022 MCHC (RBC) [Mass/Vol] 31.6 g/dL 32-36 [facility] Work Phone: Platelets bldon 02-16-2022 Platelets (Bld) [#/Vol] 80 10*3/uL 150-450 [facility] Work Phone: Basophil percentageon 2021 Bilirubin [Mass/Vol] 0.80 mg/dL 0.20-1.00 [facility] Work Phone: Comment on above: For patients on eltr ombopag therapy, use of Dimension [place] TBIL is not recommended. Chloride [Moles/Vol] 102 mmol/L 98-107 [facility] Work Phone: Cholesterol [Mass/Vol] 148 mg/dL <200 [facility] Work Phone: Comment on above: <200 mg/dL Desirable 200-240 mg/dL Borderline >240 mg/dL High Risk Glucose [Mass/Vol] 131 mg/dL 74-106 [facility] Work Phone: Comment on above: Fasting Glucose resu lt greater than or equal to 126 mg/dL suggests DIABETES MELLITUS per A.D.A. criteria. Potassium [Moles/Vol] 3.9 mmol/L 3.5-5.1 [facility] Work Phone: Protein [Mass/Vol] 8.2 g/dL 6.4-8.2 [facility] Work Phone: Sodium [Moles/Vol] 136 mmol/L 136-145 [facility] Work Phone: Triglyceride [Mass/Vol] 299 mg/dL <199 [facility] Work Phone: Comment on above: The drugs N-Acetylcy steine and Metamizole may falsely depress this assay.Serum Triglycerides Reference Interval Normal <150 mg/dL Borderline high 150 - 199 mg/dL High 200 - 499 mg/dL Very High > or = 500 mg/dL Direct bilirubinon 2 Bilirubin.direct [Mass/Vol] 0.23 mg/dL 0.00-0.30 [facility] Work Phone: Laboratory - Chemistry and C hemistry - challengeon 11-07-2021 ALP [Catalytic activity/Vol] 131 U/L 45-117 [facility] Work Phone: ALT [Catalytic activity/Vol] 53 U/L 13-56 [facility] Work Phone: CO2 [Moles/Vol] 30.0 mmol/L 21.0-32.0 [facility] Work Phone: Globulin (S) [Mass/Vol] 4.7 g/dL 2.2-4.2 [facility] Work Phone: Urea nitrogen/Creatinine [Mass ratio] 15.8 mg/mg 10-20 [facility] Work Phone: No Panel Informationon 11-07 Estimated GFR (MDRD) Amer 64 mL/min >60 [facility] Work Phone: Comment on above: GFR Calc Estimated GFR (MDRD) Non-Af Amer 53 mL/min >60 [facility] Work Phone: Comment on above: Non- GFR Calc Urine Microalbumin/Creatini ne Ratio 515.5 mg/g CRE <30 [facility] Work Phone: Serum or plasma albumin kenna urement (mass/volume)on 11-07-2021 Albumin [Mass/Vol] 3.5 g/dL 3.2-5.0 [facility] Work Phone: Serum or plasma calcium kenna urement (mass/volume)on 11-07-2021 Calcium [Mass/Vol] 9.7 mg/dL 8.5-10.1 [facility] Work Phone: Serum or plasma cholesterol in HDL measurement (mass/volume)on 11-07-2021 Cholesterol in HDL [Mass/Vol] 39 mg/dL >40 [facility] Work Phone: Comment on above: The drugs N-Acetylcy steine and Metamizole may falsely depress this assay. Reference Range HDL <40 mg/dL Low HDL Cholesterol HDL >or= 60 mg/dL High HDL Cholesterol Serum or plasma cholesterol in VLDL measurement (mass/volume)on 11-07-2021 Cholesterol in VLDL [Mass/Vol] 60 mg/dL 5-40 [facility] Work Phone: Serum or plasma creatinine m easurement (mass/volume)on 11-07-2021 Creatinine [Mass/Vol] 1.14 mg/dL 0.55-1.02 [facility] Work Phone: Comment on above: The validity of the calculated GFR & GFRAA in patients over 70 years has not been determined. Clinical correlation is essential. Serum or plasma low density lipoprotein (LDL) cholesterol measurement (mass/volume)on 11-07-2021 Cholesterol in LDL [Mass/Vol] 49 mg/dL 0-130 [facility] Work Phone: Serum or plasma urea nitroge n measurement (mass/volume)on 11-07-2021 Urea nitrogen [Mass/Vol] 18 mg/dL 7-18 [facility] Work Phone: Thin prep Papanicolaou smear with manual screeningon 11-07-2021 Thin prep Papanicolaou smear with manual screening 33 U/L 15-37 [facility] Work Phone: Thin prep Papanicolaou smear with manual screening 4 5-15 [facility] Work Phone: Thin prep Papanicolaou smear with manual screening 199.0 mg/L NO RANGE EST. [facility] Work Phone: Urine creatinine measurement (mass/volume)on 11-07-2021 Creatinine (U) [Mass/Vol] 38.60 mg/dL NO RANGE EST. [facility] Work Phone: CBCon 06-14-2020 Erythrocyte distribution width (RBC) [Ratio] 16.7 % High 11.5 - 14.5 % [place] Hematocrit (Bld) [Volume fraction] 40.4 % 35 - 47 % [place] Hemoglobin (Bld) [Mass/Vol] 13.3 g/dL 11.7 - 16 g/dL [place] Interpretation and review of laboratory results Abnormal [place] MCH (RBC) [Entitic mass] 30.0 pg 26 - 34 pg [place] MCHC (RBC) [Mass/Vol] 32.9 % 32 - 36 % [place] MCV (RBC) [Entitic vol] 91.2 fL 79 - 98 fL [place] Platelet mean volume (Bld) [Entitic vol] 8.6 fL 7.4 - 10.4 fL [place] Platelets (Bld) [#/Vol] 88 10*3/uL Low 140 - 440 10*3/uL [place] RBC (Bld) [#/Vol] 4.43 10*6/uL 3.8 - 5.2 10*6/uL [place] WBC (Bld) [#/Vol] 5.8 10*3/uL 3.6 - 10.7 10*3/uL [place] Test Performed by [facility], [address] [place] [address] , [address] CR Chest PA/LATon 06-14-2020 CR Chest PA/LAT Patient Name: MELANIE FREY Diagnostic Radiology Exam Date/Time 06/14/2020 09:36:43 EST Exam CR Chest PA/LAT Ordering Physician JANNA RAMOS KRISTINA Accession Number [id number] CPT4 Codes 71953 () Reason For Exam Chest pain on [...] Transcribed Date and Time: 06/14/2020 9:53 Normal [facility] D-Dimer, Innovanceon 020 D-Dimer, Innovance < 0.19 Normal <0.19-0.50 [facility] Comment on above: Result Comment: Inno aldridge D-Dimer values of <0.50 mg/L FEU can be used in combination with a pre-test probability model (e.g. Well's) to exclude pulmonary embolism (PE) disease, as well as an aid in the diagnosis of deep vein thrombosis (DVT). Performed By: #### H JASON, DDI2 ####[facility] [place] [address] D-Dimer, Quantitativeon 12-0 D-Dimer, Quant <0.19 <0.19 - 0.50 mg/L [place] Comment on above: Innovance D-Dimer va lues of <0.50 mg/L FEU can be used in combination with a pre-test probability model (e.g. Well's) to exclude pulmonary embolism (PE) disease, as well as an aid in the diagnosis of deep vein thrombosis (DVT). Test Performed by [facility], [address] , [place], [place] [address] [place] [address] Hemogramon 06-14-2020 Erythrocyte distribution width (RBC) [Ratio] 16.7 % High 11.5-14.5 [facility] Comment on above: Performed By: #### ALEXANDER COWAN ####[facility] [place] [address] Hematocrit (Bld) [Volume fraction] 40.4 % Normal 35.0-47.0 [facility] Comment on above: Performed By: #### ALEXANDER COWAN ####[facility] [place] [address] Hemoglobin (Bld) [Mass/Vol] 13.3 g/dL Normal 11.7-16.0 [facility] Comment on above: Performed By: #### ALEXANDER COWAN ####[facility] [place] [address] MCH (RBC) [Entitic mass] 30.0 pg Normal 26.0-34.0 [facility] Comment on above: Performed By: #### ALEXANDER COWAN ####[facility] [place] [address] MCHC (RBC) [Mass/Vol] 32.9 % Normal 32.0-36.0 [facility] Comment on above: Performed By: #### ALEXANDER COWAN ####[facility] [place] [address] MCV (RBC) [Entitic vol] 91.2 fL Normal 79.0-98.0 [facility] Comment on above: Performed By: #### ALEXANDER COWAN ####[facility] [place] [address] Platelet mean volume (Bld) [Entitic vol] 8.6 fL Normal 7.4-10.4 [facility] Comment on above: Performed By: #### Selam GOMEZ DDI2 ####[facility] [place] [address] Platelets (Bld) [#/Vol] 88 10*3/uL Low 140-440 [facility] Comment on above: Performed By: #### H OLIVA GOMEZI2 ####[facility] [place] [address] RBC (Bld) [#/Vol] 4.43 10*6/uL Normal 3.80-5.20 [facility] Comment on above: Performed By: #### H EMOG, DDI2 ####[facility] [place] [address] WBC (Bld) [#/Vol] 5.8 10*3/uL Normal 3.6-10.7 [facility] Comment on above: Performed By: #### H EMOG, DDI2 ####[facility] [place] [address] XR CHEST (2 VW)on 06-14-2020 [place], [facility] Incoming Radiology Results From [facility] - 06/14/2020 9:53 AM EST Patient Name: MELANIE RESTREPO ---Diagnostic Radiology--- Exam Date/Time 06/14/2020 09:36:43 EST Exam CR Chest PA/LAT Ordering Physician JANNA RAMOS KRISTINA Accession Number [id number] CPT4 Codes 04264 () Reason For Exam Chest pain on [...] DIANE Transcribed Date and Time: 06/14/2020 9:53 [facility], [place] Patient Name: MELANIE FREY ---Diagnostic Radiology--- Exam Date/Time 06/14/2020 09:36:43 EST Exam CR Chest PA/LAT Ordering Physician JANNA RAMOS KRISTINA Accession Number [id number] CPT4 Codes 16454 () Reason For Exam Chest pain on [...] DIANE Transcribed Date and Time: 06/14/2020 9:53 [place], [place] Creatinine, Random Urineon Creatinine (U) [Mass/Vol] 38.7 mg/dL No Range [place] Creatinine, Ur Randomon 04-11 Creatinine, Ur Random 38.7 mg/dL Normal No Range [facility] Comment on above: Performed By: #### T PUR, CRTUR, RENL3, URIC3 ####[facility] [employer] [id number] [place] [address] Otheron 04-20-2020 Test Performed by [facility], [facility] [address] [place], [place] [id number] [place] [address] Test Performed by [facility], [address] , [place], [place] [address] [place] [address] Protein, Ur Randomon 020 Protein [Mass/Vol] 107 mg/dL High No Range [facility] Comment on above: Performed By: #### T PUR, CRTUR, RENL3, URIC3 ####[facility] [employer] [address] [place] [address] Protein, urine, randomon Interpretation and review of laboratory results Abnormal [place] Protein (U) [Mass/Vol] 107 mg/dL High No Range [facility] [place], [place] Renal Functionon 04-20-2020 Calcium [Mass/Vol] 9.6 mg/dL Normal 8.4-10.4 [facility] Comment on above: Performed By: #### T PUR, CRTUR, RENL3, URIC3 ####[facility] [place] [address] Phosphate [Mass/Vol] 3.5 mg/dL Normal 2.5-4.5 [facility] Comment on above: Performed By: #### T PUR, CRTUR, RENL3, URIC3 ####[facility] [place] [address] Anion gap [Moles/Vol] 9 Normal [facility] Comment on above: Performed By: #### T PUR, CRTUR, RENL3, URIC3 ####[facility] [place] [address] CO2 [Moles/Vol] 32 mmol/L High 22-30 [facility] Comment on above: Performed By: #### T PUR, CRTUR, RENL3, URIC3 ####[facility] [place] [address] Creatinine [Mass/Vol] 0.95 mg/dL Normal 0.52-1.25 [facility] Comment on above: Performed By: #### T PUR, CRTUR, RENL3, URIC3 ####[facility] [place] [address] GFR/1.73 sq M predicted among blacks MDRD (S/P/Bld) [Vol rate/Area] 79.3 mL/min/{1.73_m2} Normal >60 [facility] Comment on above: Performed By: #### T PUR, CRTUR, RENL3, URIC3 ####[facility] [place] [address] GFR/1.73 sq M predicted among non-blacks MDRD (S/P/Bld) [Vol rate/Area] 68.4 mL/min/{1.73_m2} Normal >60 [facility] Comment on above: Result Comment: KDIG [...] By: #### T PUR, CRTUR, RENL3, URIC3 ####[place] [address] [place] [address] Glucose [Mass/Vol] 374 mg/dL High 70-100 [facility] Comment on above: Performed By: #### T PUR, CRTUR, RENL3, URIC3 ####[address] [place] [address] Urea nitrogen [Mass/Vol] 21 mg/dL High 7-20 [facility] Comment on above: Performed By: #### T PUR, CRTUR, RENL3, URIC3 ####[address] [place] [address] Albumin [Mass/Vol] 4.1 g/dL Normal 3.5-5.0 [facility] Comment on above: Performed By: #### T PUR, CRTUR, RENL3, URIC3 ####[place] [address] [place] [address] Chloride [Moles/Vol] 94 mmol/L Low 98-107 [facility] Comment on above: Performed By: #### T PUR, CRTUR, RENL3, URIC3 ####[address] [place] [address] Potassium [Moles/Vol] 4.0 mmol/L Normal 3.5-5.1 [facility] Comment on above: Performed By: #### T PUR, CRTUR, RENL3, URIC3 ####[place] [address] [place] [address] Sodium [Moles/Vol] 134 mmol/L Low 135-145 [facility] Comment on above: Performed By: #### T PUR, CRTUR, RENL3, URIC3 ####[facility] [place] [address] Renal Function Panelon 04-20 Albumin [Mass/Vol] 4.1 g/dL 3.5 - 5 g/dL [place], [place] Anion gap [Moles/Vol] 9 mmol/L [place] Calcium [Mass/Vol] 9.6 mg/dL 8.4 - 10. 4 mg/dL [place] Chloride [Moles/Vol] 94 mmol/L Low 98 - 10 7 mmol/L [place] CO2 [Moles/Vol] 32 mmol/L High 22 - 30 mmol/L [place] Creatinine [Mass/Vol] 0.95 mg/dL 0.52 - 1.25 mg/dL [place] EGFR IF NonAfrican [place] 68.4 mL/min >60 [place] Comment on above: KDIGO guidelines pro [...] MDRD (S/P/Bld) [Vol rate/Area] 79.3 mL/min/{1.73_m2} >60 [place] Glucose [Mass/Vol] 374 mg/dL High 70 - 100 mg/dL [place] Interpretation and review of laboratory results Abnormal [place] Phosphate [Mass/Vol] 3.5 mg/dL 2.5 - 4 .5 mg/dL [place] Potassium [Moles/Vol] 4.0 mmol/L 3.5 - 5.1 mmol/L [place] Sodium [Moles/Vol] 134 mmol/L Low 135 - 145 mmol/L [place] Urea nitrogen [Mass/Vol] 21 mg/dL High 7 - 20 mg/dL [place] Uric Acidon 04-20-2020 Urate [Mass/Vol] 5.1 mg/dL Normal 2.5-8.5 [facility] Comment on above: Performed By: #### T PUR, CRTUR, RENL3, URIC3 ####[facility] [place] [address] Urate [Mass/Vol] 5.1 mg/dL 2.5 - 8.5 mg/dL [place] Basic Metabolic Panelon 03-13 Anion gap [Moles/Vol] 10 Normal [facility] Comment on above: Performed By: #### H EMDF, BMP3, TROPN #### [facility] [address] [place] [address] Calcium [Mass/Vol] 9.9 mg/dL Normal 8.4-10.4 [facility] Comment on above: Performed By: #### H EMDF, BMP3, TROPN #### [facility] [address] [place] [address] CO2 [Moles/Vol] 28 mmol/L Normal 22-30 [facility] Comment on above: Performed By: #### H EMDF, BMP3, TROPN #### [facility] [address] [place] [address] Creatinine [Mass/Vol] 0.90 mg/dL Normal 0.52-1.25 [facility] Comment on above: Performed By: #### H EMDF, BMP3, TROPN #### [facility] [address] [place] [address] GFR/1.73 sq M predicted among blacks MDRD (S/P/Bld) [Vol rate/Area] 84.7 mL/min/{1.73_m2} Normal >60 [facility] Comment on above: Performed By: #### H EMDF, BMP3, TROPN #### [facility] [address] [place] [address] GFR/1.73 sq M predicted among non-blacks MDRD (S/P/Bld) [Vol rate/Area] 73.1 mL/min/{1.73_m2} Normal >60 [facility] Comment on above: Result Comment: KDIG [...] By: #### H EMDF, BMP3, TROPN #### [facility] [address] [place] [address] Glucose [Mass/Vol] 355 mg/dL High 70-100 [facility] Comment on above: Performed By: #### H EMDF, BMP3, TROPN #### [facility] [address] [place] [address] Urea nitrogen [Mass/Vol] 21 mg/dL High 7-20 [facility] Comment on above: Performed By: #### H EMDF, BMP3, TROPN #### [facility] [address] [place] [address] Chloride [Moles/Vol] 94 mmol/L Low 98-107 [facility] Comment on above: Performed By: #### H EMDF, BMP3, TROPN #### [facility] [address] [place] [address] Potassium [Moles/Vol] 4.0 mmol/L Normal 3.5-5.1 [facility] Comment on above: Performed By: #### H KATHRYN PERKINS, MODESTO #### [facility] [address] [place] [address] Sodium [Moles/Vol] 133 mmol/L Low 135-145 [facility] Comment on above: Performed By: #### H KATHRYN PERKINS, SONIAN #### [facility] [address] [place] [address] Anion gap [Moles/Vol] 10 mmol/L [place] Calcium [Mass/Vol] 9.9 mg/dL 8.4 - 10. 4 mg/dL [place] Chloride [Moles/Vol] 94 mmol/L Low 98 - 10 7 mmol/L [place] CO2 [Moles/Vol] 28 mmol/L 22 - 30 mmol/L [place] Creatinine [Mass/Vol] 0.9 mg/dL 0.52 - 1.25 mg/dL [place] EGFR IF NonAfrican [place] 73.1 mL/min >60 [place] Comment on above: KDIGO guidelines pro [...] MDRD (S/P/Bld) [Vol rate/Area] 84.7 mL/min/{1.73_m2} >60 [place] Glucose [Mass/Vol] 355 mg/dL High 70 - 100 mg/dL [place] Interpretation and review of laboratory results Abnormal [place] Potassium [Moles/Vol] 4.0 mmol/L 3.5 - 5.1 mmol/L [place] Sodium [Moles/Vol] 133 mmol/L Low 135 - 145 mmol/L [place] Urea nitrogen [Mass/Vol] 21 mg/dL High 7 - 20 mg/dL [place] Test Performed by [facility], [address], [place], [place] [address] [place] CR Chest Portableon 04-04-20 20 CR Chest Portable Patient Name: MELANIE FREY Diagnostic Radiology Exam Date/Time 04/04/2020 16:51:47 EDT Exam CR Chest Portable Ordering Physician [id number] -TERESA MAYA Accession Number [id number] CPT4 Codes 38855 () Reason For Exam Chest pain Report CHEST: CLINICAL INDICATION: Chest pain TECHNIQUE: AP portable chest COMPARISON: 11/22/2018 FINDINGS: The cardiomediastinal silhouette appears unchanged from the prior exam. The lungs are clear. There is no sizable pleural effusion. The osseous structures are unremarkable. IMPRESSION: No acute process. Report Dictated on Final Dictating Physician: MD GONZLAEZ NICHOLAS Signed Date and Time: 04/04/2020 4:44 pm Signed by: MD GONZALEZ NICHOLAS Transcribed Date and Time: 04/04/2020 4:51 Normal [facility] ED Provider Noteon 0 ED Provider Note Emergency Department Encounter [facility] ED Patient: Melanie Restrepo : 1965 [...] SOB BUT NOT ANY WORSE THAN NORMAL ENTERPRISE (Location/Symptom, Timing/Onset, Context/Setting, Quality, Duration, Modifying Factors, [...] otherwise acutely negative except as in the ENTERPRISE. Past History Past Medical History: Diagnosis Date [...] on phone: None Gets together: None Attends faith service: None Active member of club or [...] eGFR 84.7 >60 mL/min EGFR IF NonAfrican [place]ese 73.1 >60 mL/min Calcium 9.9 8.4 - [...] # 1.2 1.0 - 4.3 10*3/uL Absolute [place] # 0.4 0.0 - 0.8 10*3/uL Absolute [...] EDT Exam CR Chest Portable Ordering Physician [id number] DUENAS Accession Number [id number] CPT4 Codes 14961 () Reason For Exam Chest pain Report [...] [employer] HERMES Carvajal 04/05/20 0102 [facility] ED Provider Note Emergency Department Encounter [facility] ED Patient: Melanie Restrepo : 1965 [...] Solutions Clint Bright MD 04/04/20 1845 Normal [facility] Hemogram (CBC) w/Auto Diffon 04-04-2020 Absolute Baso # 0.0 10*3/uL 0 - 0.2 10*3/uL [place] Absolute Neut # 3.0 10*3/uL 1.8 - 7 10*3/uL [place] Basophils/100 WBC (Bld) 0.1 % 0 - 2 % [place] Eosinophils (Bld) [#/Vol] 0.0 10*3/uL 0 - 0.5 10*3/uL [place] Eosinophils/100 WBC (Bld) 0.0 % Low 1 - 6 % [place] Erythrocyte distribution width (RBC) [Ratio] 16.0 % High 11.5 - 14.5 % [place] Granulocytes/100 WBC (Bld) 65.0 % 40 - 80 % [place] Hematocrit (Bld) [Volume fraction] 38.2 % 35 - 47 % [place] Hemoglobin (Bld) [Mass/Vol] 12.5 g/dL 11.7 - 16 g/dL [place] Interpretation and review of laboratory results Abnormal [place] Lymphocytes (Bld) [#/Vol] 1.2 10*3/uL 1 - 4.3 10*3/uL [place] Lymphocytes/100 WBC (Bld) 27.1 % 20 - 40 % [place] MCH (RBC) [Entitic mass] 28.7 pg 26 - 34 pg [place] MCHC (RBC) [Mass/Vol] 32.8 % 32 - 36 % [place] MCV (RBC) [Entitic vol] 87.7 fL 79 - 98 fL [place] Monocytes (Bld) [#/Vol] 0.4 10*3/uL 0 - 0.8 10*3/uL [place] Monocytes/100 WBC (Bld) 7.8 % 2 - 10 % [place] Platelet mean volume (Bld) [Entitic vol] 9.0 fL 7.4 - 10.4 fL [place] Platelets (Bld) [#/Vol] 102 10*3/uL Low 140 - 440 10*3/uL [place] RBC (Bld) [#/Vol] 4.35 10*6/uL 3.8 - 5.2 10*6/uL [place] WBC (Bld) [#/Vol] 4.6 10*3/uL 3.6 - 10.7 10*3/uL [place] Test Performed by [facility], [address] [place], [place] [address] [place] Hemogram w/ Autodiffon 04-04 Abs Baso Cnt 0.0 10*3/uL Normal 0.0-0.2 [facility] Comment on above: Performed By: #### H EMDF, BMP3, TROPN #### [facility] [address] [place] [address] Abs Neutrophile Cnt 3.0 10*3/uL Normal 1.8-7.0 [facility] Comment on above: Performed By: #### H EMDF, BMP3, TROPN #### [facility] [address] [place] [address] Basophils/100 WBC (Bld) 0.1 % Normal 0.0-2.0 [facility] Comment on above: Performed By: #### H EMDF, BMP3, TROPN #### [facility] [address] [place] [address] Eosinophils (Bld) [#/Vol] 0.0 10*3/uL Normal 0.0-0.5 [facility] Comment on above: Performed By: #### H EMDF, BMP3, TROPN #### [facility] [address] [place] [address] Eosinophils/100 WBC (Bld) 0.0 % Low 1.0-6.0 [facility] Comment on above: Performed By: #### H EMDF, BMP3, TROPN #### [facility] [address] [place] [address] Erythrocyte distribution width (RBC) [Ratio] 16.0 % High 11.5-14.5 [facility] Comment on above: Performed By: #### H EMDF, BMP3, TROPN #### [facility] [address] [place] [address] Granulocytes/100 WBC (Bld) 65.0 % Normal 40.0-80.0 [facility] Comment on above: Performed By: #### H EMDF, BMP3, TROPN #### [facility] [address] [place] [address] Hematocrit (Bld) [Volume fraction] 38.2 % Normal 35.0-47.0 [facility] Comment on above: Performed By: #### H EMDF, BMP3, TROPN #### [facility] [address] [place] [address] Hemoglobin (Bld) [Mass/Vol] 12.5 g/dL Normal 11.7-16.0 [facility] Comment on above: Performed By: #### H EMDF, BMP3, TROPN #### [facility] [address] [place] [address] Lymphocytes (Bld) [#/Vol] 1.2 10*3/uL Normal 1.0-4.3 [facility] Comment on above: Performed By: #### H EMDF, BMP3, TROPN #### [facility] [address] [place] [address] Lymphocytes/100 WBC (Bld) 27.1 % Normal 20.0-40.0 [facility] Comment on above: Performed By: #### H EMDF, BMP3, TROPN #### [facility] [address] [place] [address] MCH (RBC) [Entitic mass] 28.7 pg Normal 26.0-34.0 [facility] Comment on above: Performed By: #### H EMDF, BMP3, TROPN #### [facility] [address] [place] [address] MCHC (RBC) [Mass/Vol] 32.8 % Normal 32.0-36.0 [facility] Comment on above: Performed By: #### H EMDF, BMP3, TROPN #### [facility] [address] [place] [address] MCV (RBC) [Entitic vol] 87.7 fL Normal 79.0-98.0 [facility] Comment on above: Performed By: #### H EMDF, BMP3, TROPN #### [facility] [address] [place] [address] Monocytes (Bld) [#/Vol] 0.4 10*3/uL Normal 0.0-0.8 [facility] Comment on above: Performed By: #### H EMDF, BMP3, TROPN #### [facility] [address] [place] [address] Monocytes/100 WBC (Bld) 7.8 % Normal 2.0-10.0 [facility] Comment on above: Performed By: #### H EMDF, BMP3, TROPN #### [facility] [address] [place] [address] Platelet mean volume (Bld) [Entitic vol] 9.0 fL Normal 7.4-10.4 [facility] Comment on above: Performed By: #### H EMDF, BMP3, TROPN #### [facility] [address] [place] [address] Platelets (Bld) [#/Vol] 102 10*3/uL Low 140-440 [facility] Comment on above: Performed By: #### H EMDF, BMP3, TROPN #### [facility] [address] [place] [address] RBC (Bld) [#/Vol] 4.35 10*6/uL Normal 3.80-5.20 [facility] Comment on above: Performed By: #### H EMDF, BMP3, TROPN #### [facility] [address] [place] [address] WBC (Bld) [#/Vol] 4.6 10*3/uL Normal 3.6-10.7 [facility] Comment on above: Performed By: #### H EMDF, BMP3, TROPN #### [facility] [address] [place] [address] Troponinon 04-04-2020 Troponin I.cardiac [Mass/Vol] ng/mL 0 - 0.034 ng/mL [place], [place] Comment on above: . Test Performed by [facility], [address], [place], [place] [address] [place], [place] Troponin Ion 04-04-2020 Troponin I.cardiac [Mass/Vol] ng/mL Normal 0.000-0.034 [facility] Comment on above: Result Comment: . Performed By: #### T ROPN ####[facility] [place] [address] Troponin I.cardiac [Mass/Vol] ng/mL Normal 0.000-0.034 [facility] Comment on above: Result Comment: . Performed By: #### H EMDF, BMP3, TROPN #### [facility] [address] [place] [address] Troponin x1on 04-04-2020 Troponin I.cardiac [Mass/Vol] ng/mL 0 - 0.034 ng/mL [place], [place] Comment on above: . Test Performed by [facility], [address] [place], [place] [address] [place] [address] XR CHEST PORTABLEon 04-04-20 20 Patient Name: MELANIE FREY ---Diagnostic Radiology--- Exam Date/Time 04/04/2020 16:51:47 EDT Exam CR Chest Portable Ordering Physician [id number] DUENAS Accession Number [id number] CPT4 Codes 98314 () Reason For Exam Chest pain Report CHEST: CLINICAL INDICATION: Chest pain TECHNIQUE: AP portable chest COMPARISON: 11/22/2018 FINDINGS: The cardiomediastinal silhouette appears unchanged from the prior exam. The lungs are clear. There is no sizable pleural effusion. The osseous structures are unremarkable. IMPRESSION: No acute process. Report Dictated on --- Final --- Dictating Physician: MD GONZALZE NICHOLAS Signed Date and Time: 04/04/2020 4:44 pm Signed by: MD GONZALEZ NICHOLAS Transcribed Date and Time: 04/04/2020 4:51 [place], [place], [facility] Incoming Radiology Results From [facility] - 04/04/2020 4:52 PM EDT Patient Name: MELANIE RESTREPO ---Diagnostic Radiology--- Exam Date/Time 04/04/2020 16:51:47 EDT Exam CR Chest Portable Ordering Physician [id number] DUENAS Accession Number [id number] CPT4 Codes 20720 () Reason For Exam Chest pain Report [...] NICHOLAS Transcribed Date and Time: 04/04/2020 4:51 [facility], [facility] JOVANNY DIGITAL SCREEN BILA TERALon 02-07-2020 Patient Name: MELANIE FREY ---Mammography--- Exam Date/Time 02/07/2020 08:18:15 EDT Exam MG Breast Tomosynthesis BI Scr Ordering Physician MD CHEVY, GIO KOWALSKI Accession Number [id number] CPT4 Codes 77955 (MG Breast Tomosynthesis Scr Bl), 14685 (MG MAMMO 2D SCREENING) Reason For Exam [...] at [facility]. April 19, 2017, bilateral MG breast tomosynthesis bl performed at [facility]. February 24, 2016, bilateral screening mammogram performed at [facility]. TISSUE DENSITY: BIRADS B - There are scattered fibroglandular densities. . FINDINGS: No suspicious masses, architectural distortions or suspiciously clustered microcalcifications are identified. There is no evidence of skin thickening or nipple retraction. There are no significant changes when compared with prior studies. Markings on images: BB's = Nipples; skin lesions Open eagle = Palpable Line = Scar 2D digital [...] 02/07/2020 10:07 am Signed by: MD GALA, [facility] Incoming Radiology Results From [facility] - 02/07/2020 10:37 AM EDT Patient Name: MELANIE RESTREPO ---Mammography--- Exam Date/Time 02/07/2020 08:18:15 EDT Exam MG Breast Tomosynthesis BI Scr Ordering Physician MD CHEVY, GIO KOWALSKI Accession Number [id number] CPT4 Codes 08020 (MG Breast Tomosynthesis Scr Bl), 18741 (MG MAMMO 2D SCREENING) Reason For Exam [...] at [facility]. April 19, 2017, bilateral MG breast tomosynthesis bl performed at [facility]. February 24, 2016, bilateral screening mammogram performed at [facility]. TISSUE DENSITY: BIRADS B - There are scattered fibroglandular densities. . FINDINGS: No suspicious masses, architectural distortions or suspiciously clustered microcalcifications are identified. There is no evidence of skin thickening or nipple retraction. There are no significant changes when compared with prior studies. Markings on images: BB's = Nipples; skin lesions Open eagle = Palpable Line = Scar 2D digital [...] 10:07 am Signed by: MD GALA, TATUM [facility], [place] MG Breast Tomosynthesis Scr Blon 02-07-2020 MG Breast Tomosynthesis Scr Bl Patient Name: MELANIE RESTREPO Mammography Exam Date/Time 02/07/2020 08:18:15 EDT Exam MG Breast Tomosynthesis BI Scr Ordering Physician MD CHEVY, GIO KOWALSKI Accession Number [id number] CPT4 Codes 47172 (MG Breast Tomosynthesis Scr Bl), 18051 (MG MAMMO 2D SCREENING) Reason For Exam [...] at [facility]. April 19, 2017, bilateral MG breast tomosynthesis bl performed at [facility]. February 24, 2016, bilateral screening mammogram performed at [facility]. TISSUE DENSITY: BIRADS B - There are scattered fibroglandular densities. . FINDINGS: No suspicious masses, architectural distortions or suspiciously clustered microcalcifications are identified. There is no evidence of skin thickening or nipple retraction. There are no significant changes when compared with prior studies. Markings on images: BB's = Nipples; skin lesions Open eagle = Palpable Line = Scar 2D digital [...] Signed by: MD GALA, TATUM Pan Normal [facility] Uric Acidon 01-23-2020 Urate [Mass/Vol] 4.9 mg/dL Normal 2.5-8.5 [facility] Comment on above: Performed By: #### U RIC3 ####[facility] [place] [address] Urate [Mass/Vol] 4.9 mg/dL 2.5 - 8.5 mg/dL [place], [place] Test Performed by [facility], [address] , [address] Creatinine, Random Urineon 0 10-12-2019 Creatinine (U) [Mass/Vol] 112.9 mg/dL No Range [facility] [place] Test Performed by [facility], [address] , [address] Creatinine, Ur Randomon Creatinine, Ur Random 112.9 mg/dL Normal No Range [facility] Comment on above: Performed By: #### T PUR, RENL3, CRTUR #### [facility] [address] [place] [address] Protein, Ur Randomon 020 Protein [Mass/Vol] 292 mg/dL High No Range [facility] Comment on above: Performed By: #### T PUR, RENL3, CRTUR #### [facility] [address] [place] [address] Protein, urine, randomon Interpretation and review of laboratory results Abnormal [place], [place] Protein (U) [Mass/Vol] 292 mg/dL High No Range [place], [place] Test Performed by [facility], [address] , [address] Renal Functionon 10-12-2019 Anion gap [Moles/Vol] 9 Normal [facility] Comment on above: Performed By: #### T PUR, RENL3, CRTUR #### [facility] [address] [place] [address] Calcium [Mass/Vol] 9.6 mg/dL Normal 8.4-10.4 [facility] Comment on above: Performed By: #### T PUR, RENL3, CRTUR #### [facility] [address] [place] [address] CO2 [Moles/Vol] 27 mmol/L Normal 22-30 [facility] Comment on above: Performed By: #### T PUR, RENL3, CRTUR #### [facility] [address] [place] [address] Creatinine [Mass/Vol] 1.05 mg/dL Normal 0.52-1.25 [facility] Comment on above: Performed By: #### T PUR, RENL3, CRTUR #### [facility] [address] [place] [address] GFR/1.73 sq M predicted among blacks MDRD (S/P/Bld) [Vol rate/Area] mL/min/{1.73_m2} Normal >60 [facility] Comment on above: Performed By: #### T PUR, RENL3, CRTUR #### [facility] [address] [place] [address] GFR/1.73 sq M predicted among non-blacks MDRD (S/P/Bld) [Vol rate/Area] 55.0 mL/min/{1.73_m2} Normal >60 [facility] Comment on above: Result Comment: Sour ce- MDRD equation with creatinine calibration to IDMS(NKDEP) eGFR not recommended for drug dose adjustment Performed By: #### T PUR, RENL3, CRTUR #### [facility] [address] [place] [address] Glucose [Mass/Vol] 252 mg/dL High 70-100 [facility] Comment on above: Performed By: #### T PUR, RENL3, CRTUR #### [facility] [address] [place] [address] Phosphate [Mass/Vol] 3.8 mg/dL Normal 2.5-4.5 [facility] Comment on above: Performed By: #### T PUR, RENL3, CRTUR #### [facility] [address] [place] [address] Urea nitrogen [Mass/Vol] 18 mg/dL Normal 7-20 [facility] Comment on above: Performed By: #### T PUR, RENL3, CRTUR #### [facility] [address] [place] [address] Albumin [Mass/Vol] 3.7 g/dL Normal 3.5-5.0 [facility] Comment on above: Performed By: #### T PUR, RENL3, CRTUR #### [facility] [address] [place] [address] Chloride [Moles/Vol] 99 mmol/L Normal 98-107 [facility] Comment on above: Performed By: #### T PUR, RENL3, CRTUR #### [facility] [address] [place] [address] Potassium [Moles/Vol] 4.0 mmol/L Normal 3.5-5.1 [facility] Comment on above: Performed By: #### T PUR, RENL3, CRTUR #### [facility] [address] [place] [address] Sodium [Moles/Vol] 136 mmol/L Normal 135-145 [facility] Comment on above: Performed By: #### T PUR, RENL3, CRTUR #### [facility] [address] [place] [address] Renal Function Panelon 10-11 Albumin [Mass/Vol] 3.7 g/dL 3.5 - 5 g/dL [place], [place] Comment on above: Test Performed by [facility], [address] , [place], [place] [address] Anion gap [Moles/Vol] 9 mmol/L [place], [place] Comment on above: Test Performed by [facility], [address] , [place], [place] [address] Calcium [Mass/Vol] 9.6 mg/dL 8.4 - 10. 4 mg/dL [place] Comment on above: Test Performed by [facility], [address] , [place], [place] [address] Chloride [Moles/Vol] 99 mmol/L 98 - 10 7 mmol/L [place], [place] Comment on above: Test Performed by [facility], [address] , [place] [address] CO2 [Moles/Vol] 27 mmol/L 22 - 30 mmol/L [place] Comment on above: Test Performed by [facility], [address] , [place] [address] Creatinine [Mass/Vol] 1.05 mg/dL 0.52 - 1.25 mg/dL [place], [place] Comment on above: Test Performed by [facility] [employer] [facility], [address] , [place] [address] EGFR IF NonAfrican [place] 55.0 mL/min >60 [place], [place] Comment on above: Test Performed by [facility], [address] , [place] [address] Source- MDRD equation with creatinine calibration to IDMS(NKDEP) eGFR not recommended for drug dose adjustment GFR/1.73 sq M predicted among blacks MDRD (S/P/Bld) [Vol rate/Area] mL/min/{1.73_m2} >60 mL/min [place], [place] Comment on above: Test Performed by [employer] [facility], [address] , [place] [address] Glucose [Mass/Vol] 252 mg/dL High 70 - 100 mg/dL [place] Comment on above: Test Performed by [facility] [employer] [facility], [address] , [place] [address] Interpretation and review of laboratory results Abnormal [place], [place] Phosphate [Mass/Vol] 3.8 mg/dL 2.5 - 4 .5 mg/dL [place] Comment on above: Test Performed by [facility] [employer] [facility], [address] , [place] [address] Potassium [Moles/Vol] 4.0 mmol/L 3.5 - 5.1 mmol/L [place], [place] Comment on above: Test Performed by [facility] [employer] [facility], [address] , [place] [address] Sodium [Moles/Vol] 136 mmol/L 135 - 145 mmol/L [place] Urea nitrogen [Mass/Vol] 18 mg/dL 7 - 20 [facility] on [facility]: Test Performed by [facility], [address] , [place], [place] [address] Test Performed by [facility], [address] , [place], [place] [id number] [place], [place] [address]ALEXUS Nav 09-24-2019 CNPN Telephone (AL PHA) -- MELANIE RESTREPO ([id number]) 1965 F Date Time Provider Department 09/24/19 DANI (PHARMACIST)RODNEY PHA During your visit today, we recorded the following information about you: RODNEY LOUISE PHARMACIST 09/24/2019 3:40 PM Signed Negative COVID-19 Testing COVID-19 Test Results Contacted patient on behalf of the [facility] Emergency Department to communicate updated results from a recent visit. Verified patient with two identifiers and updated on negative COVID-19 test results. Patient instructed that quarantine can be discontinued and that patient should contact employer to discuss return to work. Patient advised that negative testing results will be available for viewing in [employer]. If unable to access or enroll in [employer], patient instructed that results may be obtained by contacting a primary care physician or contacting the [facility] at and requesting to speak with Medical Records. Patient instructed to seek emergency medical care and call 911 if any difficulty breathing, chest pain, or if any other significant health concerns. Patient instructed to contact the primary care physician or schedule a [facility] Express Care Online or return to [...] are not readily available, use alcohol-based hand software project manager that contains at least 60% alcohol; [...] COVID-19 Resources Encouraged patient to contact the [facility] Hotline for additional COVID-19 questions (2-491-1BXPVIS or ) which is open daily to [...] Encounter Status:Closed by DANI (PHARMACIST)RODNEY on 09/24/19 [facility] ALLIED HEALTHon 09-23-2019 ALLIED HEALTH HNO ID: [id number] Author: SANGEETA Bowers (Ct) Service: ? Author Type: Clinical Security Director Type: Allied Health Filed: 09/23/2019 2:58 PM [...] SANGEETA Bowers September 23, 2019 2:57 PM [facility] CNOVon 09-23-2019 CNOV Office Visit (GAETANO ) -- KAYEJHONATANMELANIE ([id number]) 1965 F Date Time Provider Department 09/23/19 [...] x 2-3 days. She [place] in [place]. PAST MEDICAL HISTORY Diagnosis Date - Arthritis [...] complication, with long-term current use of insulin ([facility]) - ICD9: 250.00, V58.67, ICD10: E11.9, Z79.4 5. Chronic obstructive pulmonary disease, unspecified COPD type ([facility]) - ICD9: 496, ICD10: J44.9 6. History of pneumonia BP 135/71 (BP Site: Right Arm, BP Position: Sitting, BP Cuff Size: Large Adult) Pulse 76 Temp 36.8 ?C (98.2 ?F) Resp 17 Ht 165.1 cm (5' 5) Wt (!) 138.3 kg (304 lb 12.8 oz) SpO2 96% BMI 50.72 kg/m? Referred to the [facility] ER for further eval Needs further work up that cannot be provided in [facility] (CXR, nebulizer, etc). Works in a [employer]- Needs swabbed for ALL viral Needs r/o pneumonia Follow up as needed. Barriers to learning: none. The patient verbalizes understanding and is in agreement with plan of care. [facility] ER called and report given. Patient wearing mask and driving self. CARMEN Bay PA-C, HERMES 09/23/2019 12:56 PM Signed ASSESSMENT/PLAN: 1. Cough - 2. Chills - 3. Dyspnea, unspecified type - 4. Type 2 diabetes mellitus without complication, with long-term current use of insulin 5. Chronic obstructive pulmonary disease, unspecified COPD type ([facility]) 6. 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 Barriers to learning: none. The patient verbalizes understanding and is in agreement with plan of care. Anne Spencer PA-C Encounter Status:Closed by ANNE SPENCER on 09/23/19 Normal [facility] Coronavirus 2019on 0 COVID 19 Result RUNNER MAN SARS CoV 2 (Agent of COVID 19) Not Detected by PCR. Normal SARS CoV 2 (Agent of COVID 19) Not Detected by PCR. [facility] Comment on above: Result Comment: This test was developed and its performance characteristics determined by [facility] [place]. This test has been authorized by FDA [...] 2019. Performed By: #### C OVID #### [facility] [address] [place] [phone] COVID 19 Result OP Refer to result for COVID 19 when completed. Normal [facility] Comment on above: Performed By: #### C OVID #### [facility] [address] [phone] [facility] [address] [address] COVID 19 Source RUNNER MAN Nasopharyngeal Swab Normal [facility] Comment on above: Performed By: #### C OVID #### [facility] [address] [place], [place] [phone] [facility] [address] [place] [address] COVID 19 Source OP Throat Swab Normal [facility] Comment on above: Performed By: #### C OVID #### [facility] [address] [facility] [phone] [facility] [address] [place] [address] ED NOTEon 09-23-2019 ED NOTE HNO ID: [id number] Author: Casandra (Rn) ANTOINE Guerrero Service: ? Author Type: Registered Nurse Type: ED Notes Filed: 09/23/2019 3:45 PM Note Text: Reviewed DC instructions with patient. No additional questions. Patient ambulated out on her own. [facility] ED NOTE HNO ID: [id number] Author: Wilma (Rn) ANTOINE Bingham Service: ? Author Type: Registered Nurse Type: ED Notes Filed: 09/23/2019 1:38 PM Note Text: Pt to ED c/o sore throat on Wednesday, now with cough, chills, SOB and BOND. Seen at [facility], sent for r/o pneumonia and may need viral swabs. [facility] ED PROV NOTEon 09-23-2019 ED PROV NOTE HNO ID: [id number] Author: Ashley Holden MD Service: ? Author [...] ago. 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 She was seen at [facility] who sent her here for nebulizer [...] Result Value Ref Range COVID 19 Source RUNNER MAN Nasopharyngeal Swab COVID 19 Source OP Throat Swab COVID 19 Result OP Refer to result for COVID 19 when completed. XR CHEST 2V FRONTAL/LAT Final Result IMPRESSION: Stable chest. No acute cardiopulmonary process. Neck Band Setter: HUGO Transcribe Date/Time: Sep 23 2019 3:00P Dictated by : SUNITHA EVERETT MD This examination was interpreted and the report reviewed and electronically signed by: SUNITHA VEERETT MD on Sep 23 2019 3:01PM EST [...] MD Ashley Izquierdo MD 09/23/19 1516 Normal [facility] PROGRESSon 09-23-2019 PROGRESS HNO ID: [id number] Author: Anne Fernández (Carmen) HERMES Spencer Service: ? Author Type: Physician Global Sourcing Manager Type: Progress Notes Filed: 09/23/2019 1:33 PM Note Text: 09/23/2019 Patient presents with: Cough Sore Throat Triage: 54 yo female with DM II, COPD, and h/o inpatient pneumonia that is here for cough, dyspnea, sore throat, and body aches/chills x 2-3 days. She [place] in [place]. PAST MEDICAL HISTORY Diagnosis Date - Arthritis - DM type 2 (diabetes mellitus, type 2) ([facility]) - Dyslipidemia - HTN (hypertension) - Obesity [...] complication, with long-term current use of insulin ([facility]) - ICD9: 250.00, V58.67, ICD10: E11.9, Z79.4 5. Chronic obstructive pulmonary disease, unspecified COPD type ([facility]) - ICD9: 496, ICD10: J44.9 6. History of pneumonia BP 135/71 (BP Site: Right Arm, BP Position: Sitting, BP Cuff Size: Large Adult) Pulse 76 Temp 36.8 ?C (98.2 ?F) Resp 17 Ht 165.1 cm (5' 5) Wt (!) 138.3 kg (304 lb 12.8 oz) SpO2 96% BMI 50.72 kg/m? Referred to the [facility] ER for further eval Needs further work up that cannot be provided in Exp Care (CXR, nebulizer, etc). Works in a [employer]ust[employer]- Needs swabbed for ALL viral Needs r/o pneumonia Follow up as needed. Barriers to learning: none. The patient verbalizes understanding and is in agreement with plan of care. [facility] called and report given. Patient wearing mask and driving self. Anne Spencer PA-C Normal [facility] Rapid PCR FLU/RSVon 09-23-19 20 Influenza A PCR Negative [facility] Comment on above: Performed By: #### F LRSV #### [facility] [address] [place] [address] Influenza B PCR Negative [facility] Comment on above: Performed By: #### F LRSV #### [facility] [address] [address] RSV PCR Negative [facility] Comment on above: Performed By: #### F LRSV #### [facility] [address] [address] Specimen source Nom (Unsp spec) Nasopharyngeal Swab [facility] Comment on above: Performed By: #### F LRSV #### [facility] [address] [address] XR CHEST 2V FRONTAL/LATon XR CHEST 2V [...] IMPRESSION: Stable chest. No acute cardiopulmonary process. Neck Band Setter: HUGO Transcribe Date/Time: Sep 23 2019 3:00P Dictated by : SUNITHA EVERETT MD This examination was interpreted and the report reviewed and electronically signed by: SUNITHA EVERETT MD on Sep 23 2019 3:01PM EST [id number] Normal [facility] [facility],Bedsideon 06-06-2018 Glucose mass conc 301 mg/dL High 70-100 [facility] Comment on above: Result Comment: Test performed by glucose meter. Results may be 10%-15% lowerthan serum/plasma values. (CLIA ID [id number]) Performed By: #### B GLU ####[address] [place] [address] Glucose mass conc 247 mg/dL High 70-100 [facility] Comment on above: Result Comment: Test performed by glucose meter. Results may be 10%-15% lowerthan serum/plasma values. (CLIA ID [id number]) Performed By: #### B GLU ####[address] [place] [address] Glucose mass conc 283 mg/dL High 70-100 [facility] Comment on above: Result Comment: Test performed by glucose meter. Results may be 10%-15% lowerthan serum/plasma values. (CLIA ID [id number]) Performed By: #### B GLU ####[address] [place] [address] Basic Metabolic Panelon 11-2 Anion gap 3 molar conc 10 Normal [facility] Comment on above: Performed By: #### H EMDArpita BMP3M ####[address] [place] [address] Calcium mass conc 9.1 mg/dL Normal 8.4-10.4 [facility] Comment on above: Performed By: #### H EMDF BMP3M ####[address] [place] [place] [address] CO2 molar conc 27 mmol/L Normal 22-30 [facility] Comment on above: Performed By: #### H EMDF BMP3M ####[address] [place] [address] Glucose mass conc 312 mg/dL High 70-100 [facility] Comment on above: Performed By: #### H EMDArpita BMP3M ####[facility] [employer] [id number] [place] [address] Urea nitrogen mass conc 19 mg/dL Normal 7-20 [facility] Comment on above: Performed By: #### H GREGORIO BMP3M ####[id number] [place] [address] Creatinine mass conc 0.87 mg/dL Normal 0.52-1.25 [facility] Comment on above: Performed By: #### H GREGORIO BMP3M ####[facility] [employer] [id number] [place] [address] GFR/1.73 sq M predicted among blacks MDRD vol rate/area (S/P/Bld) mL/min/{1.73_m2} Normal >60 [facility] Comment on above: Performed By: #### H GREGORIO BMP3M ####[address] [place] [address] GFR/1.73 sq M predicted among non-blacks MDRD vol rate/area (S/P/Bld) mL/min/{1.73_m2} Normal >60 [facility] Comment on above: Result Comment: Sour ce- MDRD equation with creatinine calibration to IDMS(NKDEP) eGFR not recommended for drug dose adjustment Performed By: #### H GREGORIO BMP3M ####[id number] [place] [address] Chloride molar conc 99 mmol/L Normal 98-107 [facility] Comment on above: Performed By: #### H GREGORIO BMP3M ####[facility] [employer] [id number] [place] [address] Potassium molar conc 4.6 mmol/L Normal 3.5-5.1 [facility] Comment on above: Performed By: #### H GREGORIO BMP3M ####[facility] [employer] [id number] [place] [address] Sodium molar conc 136 mmol/L Low 137-145 [facility] Comment on above: Performed By: #### H GREGORIO BMP3M ####[facility] [place] [address] Diagnostic Catherizationon 1 08-03-2017 Diagnostic Catherization Patient Name: MELANIE RESTREPO [employer] Work[employer] Exam Date/Time 06/03/2018 11:35:14 EST Exam Diagnostic Catherization Ordering Physician MD KARY, SALMA Cobian Accession Number [id number] Reason For Exam Chest pain, unspecified Report [facility] --- CARDIAC CATHETERIZATION Patient: Melanie Restrepo Procedure [...] (IA), 200mcg, NITROGLYCERIN (IA). Verapamil (Isoptin, [place], [place] ra), 2.5mg, VERAPAMIL. Heparin, 3000units, HEPARIN. Fentanyl, [...] Signed by: MD PRESTON MUHAMMAD A Normal [facility] Hemogram w/ Autodiffon 06-03 Abs Baso Cnt 0.0 10*3/uL Normal 0.0-0.2 [facility] Comment on above: Performed By: #### H JOSH PERKINS ####[facility] [employer] [address] Abs Neutrophile Cnt 2.4 10*3/uL Normal 1.8-7.0 [facility] Comment on above: Performed By: #### H TRELL PERKINS3Raina ####[facility] [employer] [id number] [place], [place] Basophils/100 WBC Auto (Bld) 0.4 % Normal 0.0-2.0 [facility] Comment on above: Performed By: #### TRELL VALDERRAMA3Raina ####[facility] [employer] [address] Eosinophils Auto #/vol (Bld) 0.0 10*3/uL Normal 0.0-0.5 [facility] Comment on above: Performed By: #### JOSH VALDERRAMA ####[facility] [employer] [address] Eosinophils/100 WBC Auto (Bld) 0.2 % Low 1.0-6.0 [facility] Comment on above: Performed By: #### Selam PERKINS BMP3M ####[address] Erythrocyte distribution width Auto Ratio (RBC) 16.3 % High 11.5-14.5 [facility] Comment on above: Performed By: #### Selam PERKINS BMP3M ####[address] Granulocytes/100 WBC (Bld) 61.5 % Normal 40.0-80.0 [facility] Comment on above: Performed By: #### Selam PERKINS BMP3M ####[address] Hematocrit Auto Volume Fraction (Bld) 35.7 % Normal 35.0-47.0 [facility] Comment on above: Performed By: #### Selam PERKINS BMP3M ####[address] Hemoglobin mass conc (Bld) 11.9 g/dL Normal 11.7-16.0 [facility] Comment on above: Performed By: #### Selam PERKINS BMP3M ####[address] Lymphocytes Auto #/vol (Bld) 1.2 10*3/uL Normal 1.0-4.3 [facility] Comment on above: Performed By: #### H GREGORIO BMP3M ####[address] [address] Lymphocytes/100 WBC Auto (Bld) 29.6 % Normal 20.0-40.0 [facility] Comment on above: Performed By: #### H GREGORIO BMP3M ####[address] MCH Auto Entitic mass (RBC) 29.0 pg Normal 26.0-34.0 [facility] Comment on above: Performed By: #### H GREGORIO BMP3M ####[id number] [place], [place] MCHC Auto mass conc (RBC) 33.3 % Normal 32.0-36.0 [facility] Comment on above: Performed By: #### H GREGORIO BMP3M ####[id number] [place], [place] MCV Auto Entitic volume (RBC) 86.9 fL Normal 79.0-98.0 [facility] Comment on above: Performed By: #### H GREGORIO BMP3M ####[address] Monocytes Auto #/vol (Bld) 0.3 10*3/uL Normal 0.0-0.8 [facility] Comment on above: Performed By: #### H GREGORIO BMP3M ####[address] Monocytes/100 WBC Auto (Bld) 8.3 % Normal 2.0-10.0 [facility] Comment on above: Performed By: #### H GREGORIO BMP3M ####[address] Platelet mean volume Auto Entitic volume (Bld) 8.7 fL Normal 7.4-10.4 [facility] Comment on above: Performed By: #### H GREGORIO BMP3M ####[address] Platelets Auto #/vol (Bld) 88 10*3/uL Low 140-440 [facility] Comment on above: Performed By: #### H GREGORIO BMP3M ####[address] RBC Auto #/vol (Bld) 4.11 10*6/uL Normal 3.80-5.20 [facility] Comment on above: Performed By: #### H GREGORIO BMP3M ####[address] [address] WBC Auto #/vol (Bld) 3.9 10*3/uL Normal 3.6-10.7 [facility] Comment on above: Performed By: #### H GREGORIO BMP3M ####[facility] [address] [place] [address] Vital Signs Date Time Vital Sign Value Performing Clinician Facility 01-09-2025 18:54-0400 Body temperature 98.91 [degF] Gio Ricketts MD Work Phone: [facility] 01-09-2025 18:54-0400 Diastolic blood pressure 70 mm[Hg] Gio Ricketts MD Work Phone: [facility] 01-09-2025 18:54-0400 Heart rate 87 /min Gio Ricketts MD Work Phone: [facility] 01-09-2025 18:54-0400 Respiratory rate 20 /min Gio Ricketts MD Work Phone: [facility] 01-09-2025 18:54-0400 SaO2% (BldA) [Mass fraction] 97 % Gio Ricketts MD Work Phone: [facility] 01-09-2025 18:54-0400 Systolic blood pressure 121 mm[Hg] Gio Ricketts MD Work Phone: [facility] 01-09-2025 18:53-0400 Body height 165.1 cm Gio Ricketts MD Work Phone: [facility] 01-09-2025 18:53-0400 Body mass index (BMI) [Ratio] 43.93 kg/m2 Gio Ricketts MD Work Phone: [facility] 01-09-2025 18:53-0400 Body weight 119.75 kg Gio Ricketts MD Work Phone: [facility] 01-09-2025 03:28-0400 Diastolic blood pressure 76 mm[Hg] Ray Espitia MD Work Phone: [facility] [employer] 01-09-2025 03:28-0400 Heart rate 97 /min Ray Espitia MD Work Phone: [employer] 01-09-2025 03:28-0400 Respiratory rate 20 /min Ray Espitia MD Work Phone: [facility] [employer] 01-09-2025 03:28-0400 SaO2% (BldA) [Mass fraction] 98 % Ray Espitia MD Work Phone: [facility] [employer] 01-09-2025 03:28-0400 Systolic blood pressure 111 mm[Hg] Ray Espitia MD Work Phone: [facility] [employer] 01-08-2025 23:43-0400 Body temperature 96.69 [degF] Ray Espitia MD Work Phone: [facility] [employer] 12-23-2024 13:41-0400 Body temperature 97.81 [degF] Gio Ricketts MD Work Phone: [facility] [employer] 12-23-2024 13:41-0400 Diastolic blood pressure 82 mm[Hg] Gio Ricketts MD Work Phone: [facility] [employer] 12-23-2024 13:41-0400 Heart rate 72 /min Gio Ricketts MD Work Phone: [facility] [employer] 12-23-2024 13:41-0400 Respiratory rate 16 /min Gio Ricketts MD Work Phone: [facility] [employer] 12-23-2024 13:41-0400 SaO2% (BldA) [Mass fraction] 97 % Gio Ricketts MD Work Phone: [facility] [employer] 12-23-2024 13:41-0400 Systolic blood pressure 135 mm[Hg] Gio Ricketts MD Work Phone: [employer] 12-23-2024 11:47-0400 Body height 165.1 cm Gio Ricketts MD Work Phone: [facility] [employer] 12-23-2024 11:47-0400 Body mass index (BMI) [Ratio] 43.93 kg/m2 Gio Ricketts MD Work Phone: [facility] [employer] 12-23-2024 11:47-0400 Body weight 119.75 kg Gio Ricketts MD Work Phone: [employer] 12-19-2024 18:51-0400 Body temperature 98.1 [degF] Amber Holley DO Work Phone: [employer] 12-19-2024 18:51-0400 Diastolic blood pressure 94 mm[Hg] Amber Kishan DO Work Phone: [employer] 12-19-2024 18:51-0400 Heart rate 82 /min Amber Kishan DO Work Phone: [employer] 12-19-2024 18:51-0400 Respiratory rate 16 /min Amberapurva Holley DO Work Phone: [employer] 12-19-2024 18:51-0400 SaO2% (BldA) [Mass fraction] 96 % Amberapurva Holley DO Work Phone: [facility] [employer] 12-19-2024 18:51-0400 Systolic blood pressure 163 mm[Hg] Amber Kishan DO Work Phone: [employer] 12-19-2024 18:51-0400 Body height 165.1 cm Amber Kishan DO Work Phone: [employer] 12-19-2024 18:51-0400 Body mass index (BMI) [Ratio] 45.26 kg/m2 Amber Kishan DO Work Phone: [employer] 12-19-2024 18:51-0400 Body weight 123.38 kg Amber Kishan DO Work Phone: [employer] 10-24-2024 07:22-0400 Body mass index (BMI) [Ratio] 44.57 kg/m2 Kassi Bazanal DIRECTOR OF BUSINESS SERVICES - [employer] WORKER Work Phone: [employer] 10-24-2024 07:22-0400 Body temperature 97.2 [degF] Kassi Katherineenthal DIRECTOR OF BUSINESS SERVICES - [employer] WORKER Work Phone: [facility] [employer] 10-24-2024 07:22-0400 Body weight 123.38 kg Kassi Bridenthal DIRECTOR OF BUSINESS SERVICES - [employer] WORKER Work Phone: [facility] [employer] 10-24-2024 07:22-0400 Diastolic blood pressure 72 mm[Hg] Kassi Bridenthal DIRECTOR OF BUSINESS SERVICES - [employer] WORKER Work Phone: [facility] [employer] 10-24-2024 07:22-0400 Heart rate 63 /min Kassi Bridenthal DIRECTOR OF BUSINESS SERVICES - [employer] WORKER Work Phone: [facility] [employer] 10-24-2024 07:22-0400 Respiratory rate 18 /min Kassi Bridenthal DIRECTOR OF BUSINESS SERVICES - [employer] WORKER Work Phone: [facility] [employer] 10-24-2024 07:22-0400 SaO2% (BldA) [Mass fraction] 95 % Kassi Bridenthal DIRECTOR OF BUSINESS SERVICES - [employer] WORKER Work Phone: [facility] [employer] 10-24-2024 07:22-0400 Systolic blood pressure 124 mm[Hg] Kassi Bridenthal DIRECTOR OF BUSINESS SERVICES - [employer] WORKER Work Phone: [facility] [employer] 09-27-2024 15:05-0400 Body mass index (BMI) [Ratio] 44.25 kg/m2 Jimenez Maddox MD Work Phone: [facility] [employer] 09-27-2024 15:05-0400 Body weight 122.47 kg Jimenez Maddox MD Work Phone: [facility] [employer] 09-27-2024 14:42-0400 Body temperature 99.19 [degF] Jimenez Maddox MD Work Phone: [facility] [employer] 09-27-2024 14:42-0400 Diastolic blood pressure 100 mm[Hg] Jimenez Maddox MD Work Phone: [facility] [employer] 09-27-2024 14:42-0400 Heart rate 100 /min Jimenez Maddox MD Work Phone: [facility] [employer] 09-27-2024 14:42-0400 Respiratory rate 15 /min Jimenez Maddox MD Work Phone: [employer] 09-27-2024 14:42-0400 SaO2% (BldA) [Mass fraction] 97 % Jimenez Maddox MD Work Phone: [employer] 09-27-2024 14:42-0400 Systolic blood pressure 165 mm[Hg] Jimenez Maddox MD Work Phone: [employer] 08-25-2024 13:55-0500 Body temperature 97 [degF] Kate Thang DIRECTOR OF BUSINESS SERVICES - LINE WORKER Work Phone: [employer] Comment on above: Patient Reported 08-25-2024 13:55-0500 Heart rate 73 /min Kate Thang DIRECTOR OF BUSINESS SERVICES - [employer] WORKER Work Phone: [employer] 08-25-2024 13:55-0500 SaO2% (BldA) [Mass fraction] 97 % Kate Thang DIRECTOR OF BUSINESS SERVICES - [employer] WORKER Work Phone: [employer] 08-01-2024 07:35-0500 Body mass index (BMI) [Ratio] 44.25 kg/m2 Kassi Bridenthal DIRECTOR OF BUSINESS SERVICES - [employer] WORKER Work Phone: [employer] 08-01-2024 07:35-0500 Body temperature 96.91 [degF] Kassi Bridenthal DIRECTOR OF BUSINESS SERVICES - [employer] WORKER Work Phone: [employer] 08-01-2024 07:35-0500 Body weight 122.47 kg Kassi Bridenthal DIRECTOR OF BUSINESS SERVICES - [employer] WORKER Work Phone: [employer] 08-01-2024 07:35-0500 Diastolic blood pressure 81 mm[Hg] Kassi Bridenthal DIRECTOR OF BUSINESS SERVICES - [employer] WORKER Work Phone: [employer] 08-01-2024 07:35-0500 Heart rate 72 /min Kassi Bridenthal DIRECTOR OF BUSINESS SERVICES - LINE WORKER Work Phone: [employer] 08-01-2024 07:35-0500 Respiratory rate 18 /min Kassi Bridenthal DIRECTOR OF BUSINESS SERVICES - [employer] WORKER Work Phone: [employer] 08-01-2024 07:35-0500 SaO2% (BldA) [Mass fraction] 94 % Kassi Seymour DIRECTOR OF BUSINESS SERVICES - LINE WORKER Work Phone: [employer] 08-01-2024 07:35-0500 Systolic blood pressure 137 mm[Hg] Kassi Seymour DIRECTOR OF BUSINESS SERVICES - [employer] WORKER Work Phone: [employer] 02-26-2024 08:09-0400 Body mass index (BMI) [Ratio] 44.25 kg/m2 Nelson Grady MD Work Phone: [employer] 02-26-2024 08:09-0400 Body temperature 97.7 [degF] Nelson Grady MD Work Phone: [employer] 02-26-2024 08:09-0400 Body weight 122.47 kg Nelson Grady MD Work Phone: [employer] 02-26-2024 08:09-0400 Diastolic blood pressure 94 mm[Hg] Nelson Grady MD Work Phone: [employer] 02-26-2024 08:09-0400 Heart rate 80 /min Nelson Grady MD Work Phone: [employer] 02-26-2024 08:09-0400 Respiratory rate 12 /min Nelson Grady MD Work Phone: [employer] 02-26-2024 08:09-0400 SaO2% (BldA) [Mass fraction] 96 % Nelson Grady MD Work Phone: [employer] 02-26-2024 08:09-0400 Systolic blood pressure 170 mm[Hg] Nelson Grady MD Work Phone: [employer] 02-19-2024 15:22-0400 Diastolic blood pressure 92 mm[Hg] Gio Ricketts MD Work Phone: [employer] 02-19-2024 15:22-0400 Heart rate 71 /min Gio Ricketts MD Work Phone: [employer] 02-19-2024 15:22-0400 Respiratory rate 18 /min Gio Ricketts MD Work Phone: [employer] 02-19-2024 15:22-0400 SaO2% (BldA) [Mass fraction] 100 % Gio Ricketts MD Work Phone: [facility] [employer] 02-19-2024 15:22-0400 Systolic blood pressure 144 mm[Hg] Gio Ricketts MD Work Phone: [facility] [employer] 02-19-2024 10:56-0400 Body mass index (BMI) [Ratio] 45.07 kg/m2 Gio Ricketts MD Work Phone: [employer] 02-19-2024 10:56-0400 Body temperature 97.39 [degF] Gio Ricketts MD Work Phone: [facility] [employer] 02-19-2024 10:56-0400 Body weight 124.74 kg Gio Ricketts MD Work Phone: [facility] [employer] 12-13-2023 20:36-0400 Body temperature 98.01 [degF] Victorino Akins MD Work Phone: [employer] 12-13-2023 20:02-0400 Diastolic blood pressure 72 mm[Hg] Victorino Akins MD Work Phone: [employer] 12-13-2023 20:02-0400 Heart rate 74 /min Victorino Akins MD Work Phone: [employer] 12-13-2023 20:02-0400 Respiratory rate 16 /min Victorino Akins MD Work Phone: [employer] 12-13-2023 20:02-0400 SaO2% (BldA) [Mass fraction] 93 % Victorino Akins MD Work Phone: [facility] [employer] 12-13-2023 20:02-0400 Systolic blood pressure 126 mm[Hg] Victorino Akins MD Work Phone: [employer] 12-13-2023 18:46-0400 Body height 166.4 cm Victorino Akins MD Work Phone: [facility] [employer] 12-13-2023 18:46-0400 Body mass index (BMI) [Ratio] 44.25 kg/m2 Victorino Akins MD Work Phone: [facility] [employer] 12-13-2023 18:46-0400 Body weight 122.47 kg Victorino Akins MD Work Phone: [facility] [employer] 12-04-2023 18:09-0400 Body temperature 98.2 [degF] Gio Ricketts MD Work Phone: [facility] [employer] 12-04-2023 18:09-0400 Diastolic blood pressure 88 mm[Hg] Gio Ricketts MD Work Phone: [facility] [employer] 12-04-2023 18:09-0400 Heart rate 76 /min Gio Ricketts MD Work Phone: [facility] [employer] 12-04-2023 18:09-0400 Respiratory rate 18 /min Gio Ricketts MD Work Phone: [facility] [employer] 12-04-2023 18:09-0400 SaO2% (BldA) [Mass fraction] 97 % Gio Ricketts MD Work Phone: [facility] [employer] 12-04-2023 18:09-0400 Systolic blood pressure 145 mm[Hg] Gio Ricketts MD Work Phone: [facility] [employer] 11-11-2023 07:16-0400 Body mass index (BMI) [Ratio] 45.93 kg/m2 Kassibarb eSymour DIRECTOR OF BUSINESS SERVICES - [employer] WORKER Work Phone: [facility] [employer] 11-11-2023 07:16-0400 Body temperature 97.7 [degF] Kassi Katherineenthal DIRECTOR OF BUSINESS SERVICES - [employer] WORKER Work Phone: [facility] [employer] 11-11-2023 07:16-0400 Body weight 125.19 kg Kassi Murphyenthal DIRECTOR OF BUSINESS SERVICES - [employer] WORKER Work Phone: [facility] [employer] 11-11-2023 07:16-0400 Diastolic blood pressure 60 mm[Hg] Kassi Bridenthal DIRECTOR OF BUSINESS SERVICES - [employer] WORKER Work Phone: [facility] [employer] 11-11-2023 07:16-0400 Heart rate 77 /min Kassi Bridenthal DIRECTOR OF BUSINESS SERVICES - [employer] WORKER Work Phone: [facility] [employer] 11-11-2023 07:16-0400 Respiratory rate 16 /min Kassi Bridenthal DIRECTOR OF BUSINESS SERVICES - [employer] WORKER Work Phone: [facility] [employer] 11-11-2023 07:16-0400 SaO2% (BldA) [Mass fraction] 96 % Kassi Bridenthal DIRECTOR OF BUSINESS SERVICES - [employer] WORKER Work Phone: [facility] [employer] 11-11-2023 07:16-0400 Systolic blood pressure 114 mm[Hg] Kassi Bridenthal DIRECTOR OF BUSINESS SERVICES - [employer] WORKER Work Phone: [facility] [employer] 10-13-2023 11:04-0400 Body height 165.1 cm Angel Juan MD Work Phone: [facility] [employer] 10-13-2023 11:04-0400 Body mass index (BMI) [Ratio] 45.18 kg/m2 Angel Juan MD Work Phone: [facility] [employer] 10-13-2023 11:04-0400 Body temperature 97.5 [degF] Angel Juan MD Work Phone: [facility] [employer] 10-13-2023 11:04-0400 Body weight 123.15 kg Angel Juan MD Work Phone: [facility] [employer] 10-13-2023 11:04-0400 Diastolic blood pressure 79 mm[Hg] Angel Juan MD Work Phone: [employer] 10-13-2023 11:04-0400 Heart rate 70 /min Angel Juan MD Work Phone: [facility] [employer] 10-13-2023 11:04-0400 SaO2% (BldA) [Mass fraction] 96 % Angel Juan MD Work Phone: [facility] [employer] 10-13-2023 11:04-0400 Systolic blood pressure 124 mm[Hg] Angel Juan MD Work Phone: [facility] [employer] 10-12-2023 15:31-0400 Body temperature 97.39 [degF] William Mudrakola DO Work Phone: [facility] [employer] 10-12-2023 15:31-0400 Diastolic blood pressure 81 mm[Hg] William Mudrakola DO Work Phone: [facility] [employer] 10-12-2023 15:31-0400 Heart rate 78 /min William Harinderrakola DO Work Phone: [facility] [employer] 10-12-2023 15:31-0400 Respiratory rate 18 /min William Benykola DO Work Phone: [facility] [employer] 10-12-2023 15:31-0400 SaO2% (BldA) [Mass fraction] 97 % William Davidla DO Work Phone: [facility] [employer] 10-12-2023 15:31-0400 Systolic blood pressure 143 mm[Hg] William Harinderrakola DO Work Phone: [facility] [employer] 09-22-2023 09:10-0400 Body height 165.1 cm Angel Juan MD Work Phone: [facility] [employer] 09-22-2023 09:10-0400 Body mass index (BMI) [Ratio] 45.9 kg/m2 Angel Juan MD Work Phone: [facility] [employer] 09-22-2023 09:10-0400 Body temperature 97.9 [degF] Angel Juan MD Work Phone: [facility] [employer] 09-22-2023 09:10-0400 Body weight 125.1 kg Angel Juan MD Work Phone: [facility] [employer] 09-22-2023 09:10-0400 Diastolic blood pressure 84 mm[Hg] Angel Juan MD Work Phone: [facility] [employer] 09-22-2023 09:10-0400 Heart rate 64 /min Angel Juan MD Work Phone: [facility] [employer] 09-22-2023 09:10-0400 SaO2% (BldA) [Mass fraction] 96 % Angel Juan MD Work Phone: [facility] [employer] 09-22-2023 09:10-0400 Systolic blood pressure 137 mm[Hg] Angel Juan MD Work Phone: [facility] [employer] 08-26-2023 09:25-0500 Diastolic blood pressure 77 mm[Hg] Kassi Bridenthal DIRECTOR OF BUSINESS SERVICES - LINE WORKER Work Phone: [facility] [employer] 08-26-2023 09:25-0500 Heart rate 89 /min Kassi Bridenthal DIRECTOR OF BUSINESS SERVICES - LINE WORKER Work Phone: [facility] [employer] 08-26-2023 09:25-0500 Systolic blood pressure 136 mm[Hg] Kassi Bridenthal DIRECTOR OF BUSINESS SERVICES - LINE WORKER Work Phone: [facility] [employer] 08-26-2023 08:25-0500 Body height 165.1 cm Kassi Bridenthal DIRECTOR OF BUSINESS SERVICES - LINE WORKER Work Phone: [facility] [employer] 08-26-2023 08:25-0500 Body mass index (BMI) [Ratio] 45.86 kg/m2 Kassi Bridenthal DIRECTOR OF BUSINESS SERVICES - LINE WORKER Work Phone: [facility] [employer] 08-26-2023 08:25-0500 Body temperature 99.1 [degF] Kassi Bridenthal DIRECTOR OF BUSINESS SERVICES - LINE WORKER Work Phone: [facility] [employer] 08-26-2023 08:25-0500 Body weight 125.01 kg Kassi Bridenthal DIRECTOR OF BUSINESS SERVICES - LINE WORKER Work Phone: [facility] [employer] 08-26-2023 08:25-0500 Respiratory rate 24 /min Kassi Bridenthal DIRECTOR OF BUSINESS SERVICES - LINE WORKER Work Phone: [facility] [employer] 08-26-2023 08:25-0500 SaO2% (BldA) [Mass fraction] 97 % Kassi Bridenthal DIRECTOR OF BUSINESS SERVICES - LINE WORKER Work Phone: [facility] [employer] 05-16-2023 16:20-0500 Diastolic blood pressure 90 mm[Hg] Mariana Snow MD Work Phone: [facility] [employer] 05-16-2023 16:20-0500 Heart rate 95 /min Mariana Snow MD Work Phone: [facility] [employer] 05-16-2023 16:20-0500 Respiratory rate 18 /min Mariana Snow MD Work Phone: [facility] [employer] 05-16-2023 16:20-0500 SaO2% (BldA) [Mass fraction] 97 % Mariana Snow MD Work Phone: [facility] [employer] 05-16-2023 16:20-0500 Systolic blood pressure 133 mm[Hg] Mariana Snow MD Work Phone: [facility] [employer] 05-16-2023 12:37-0500 Body height 165.1 cm Mariana Snow MD Work Phone: [facility] [employer] 05-16-2023 12:37-0500 Body mass index (BMI) [Ratio] 46.76 kg/m2 Mariana Snow MD Work Phone: [facility] [employer] 05-16-2023 12:37-0500 Body weight 127.46 kg Mariana Snow MD Work Phone: [facility] [employer] 05-16-2023 12:33-0500 Body temperature 97.59 [degF] Mariana Snow MD Work Phone: [facility] [employer] 03-15-2023 10:23-0400 Body temperature 96.21 [degF] Yogesh Dodson MD Work Phone: [facility] [employer] 03-15-2023 10:23-0400 Diastolic blood pressure 95 mm[Hg] Yogesh Dodson MD Work Phone: [facility] [employer] 03-15-2023 10:23-0400 Heart rate 74 /min Yogesh Dodson MD Work Phone: [facility] [employer] 03-15-2023 10:23-0400 Respiratory rate 20 /min Yogesh Dodson MD Work Phone: [facility] [employer] 03-15-2023 10:23-0400 SaO2% (BldA) [Mass fraction] 98 % Yogesh Dodson MD Work Phone: [facility] [employer] 03-15-2023 10:23-0400 Systolic blood pressure 179 mm[Hg] Yogesh Dodson MD Work Phone: [facility] [employer] 02-20-2023 07:58-0400 Body temperature 97.81 [degF] Mariana Snow MD Work Phone: [facility] [employer] 02-20-2023 07:58-0400 Diastolic blood pressure 85 mm[Hg] Mariana Snow MD Work Phone: [facility] [employer] 02-20-2023 07:58-0400 Heart rate 67 /min Mariana Snow MD Work Phone: [facility] [employer] 02-20-2023 07:58-0400 Respiratory rate 20 /min Mariana Snow MD Work Phone: [facility] [employer] 02-20-2023 07:58-0400 SaO2% (BldA) [Mass fraction] 93 % Mariana Snow MD Work Phone: [facility] [employer] 02-20-2023 07:58-0400 Systolic blood pressure 132 mm[Hg] Mariana Snow MD Work Phone: [facility] [employer] 02-16-2023 08:25-0400 Body mass index (BMI) [Ratio] 48.7 kg/m2 Kassi Bridenthal DIRECTOR OF BUSINESS SERVICES - LINE WORKER Work Phone: [facility] [employer] 02-16-2023 08:25-0400 Body temperature 96.91 [degF] Kassi Bridenthal DIRECTOR OF BUSINESS SERVICES - LINE WORKER Work Phone: [facility] [employer] 02-16-2023 08:25-0400 Body weight 134.81 kg Kassi Bridenthal DIRECTOR OF BUSINESS SERVICES - LINE WORKER Work Phone: [employer] 02-16-2023 08:25-0400 Diastolic blood pressure 60 mm[Hg] Kassi Murphyenthal DIRECTOR OF BUSINESS SERVICES - LINE WORKER Work Phone: [facility] [employer] 02-16-2023 08:25-0400 Heart rate 82 /min Kassi Bridenthal DIRECTOR OF BUSINESS SERVICES - LINE WORKER Work Phone: [employer] 02-16-2023 08:25-0400 Respiratory rate 18 /min Kassi Bridenthal DIRECTOR OF BUSINESS SERVICES - LINE WORKER Work Phone: [employer] 02-16-2023 08:25-0400 SaO2% (BldA) [Mass fraction] 95 % Kassi Bridenthal DIRECTOR OF BUSINESS SERVICES - LINE WORKER Work Phone: [employer] 02-16-2023 08:25-0400 Systolic blood pressure 128 mm[Hg] Kassi Murphyenthal DIRECTOR OF BUSINESS SERVICES - LINE WORKER Work Phone: [facility] [employer] 02-13-2023 22:04-0400 Body temperature 98.29 [degF] Nelson Grady MD Work Phone: [employer] 02-13-2023 22:04-0400 Diastolic blood pressure 84 mm[Hg] Nelson Grady MD Work Phone: [employer] 02-13-2023 22:04-0400 Heart rate 74 /min Nelson Grady MD Work Phone: [employer] 02-13-2023 22:04-0400 Respiratory rate 18 /min Nelson Grady MD Work Phone: [employer] 02-13-2023 22:04-0400 SaO2% (BldA) [Mass fraction] 95 % Nelson Grady MD Work Phone: [employer] 02-13-2023 22:04-0400 Systolic blood pressure 136 mm[Hg] Nelson Grady MD Work Phone: [employer] 02-06-2023 21:00-0400 Body height 166.4 cm Izabela Noyola DO Work Phone: [employer] 02-06-2023 21:00-0400 Body mass index (BMI) [Ratio] 47.52 kg/m2 Izabela Noyola DO Work Phone: [facility] [employer] 02-06-2023 21:00-0400 Body temperature 98.1 [degF] Izabela Noyola DO Work Phone: [facility] [employer] 02-06-2023 21:00-0400 Body weight 131.54 kg Izabela Noyola DO Work Phone: [facility] [employer] 02-06-2023 21:00-0400 Diastolic blood pressure 68 mm[Hg] Izabela Noyola DO Work Phone: [facility] [employer] 02-06-2023 21:00-0400 Heart rate 80 /min Izabela Noyola DO Work Phone: [facility] [employer] 02-06-2023 21:00-0400 Respiratory rate 16 /min Izabela Noyola DO Work Phone: [facility] [employer] 02-06-2023 21:00-0400 SaO2% (BldA) [Mass fraction] 95 % Izabela Noyola DO Work Phone: [facility] [employer] 02-06-2023 21:00-0400 Systolic blood pressure 152 mm[Hg] Izabela Noyola DO Work Phone: [facility] [employer] 02-05-2023 00:13-0400 Diastolic blood pressure 78 mm[Hg] Jarvis Belcher MD Work Phone: [employer] 02-05-2023 00:13-0400 Heart rate 70 /min Jarvis Belcher MD Work Phone: [employer] 02-05-2023 00:13-0400 SaO2% (BldA) [Mass fraction] 95 % Jarvis Belcher MD Work Phone: [employer] 02-05-2023 00:13-0400 Systolic blood pressure 138 mm[Hg] Jarvis Belcher MD Work Phone: [facility] [employer] 02-04-2023 22:32-0400 Body temperature 97.9 [degF] Jarvis Belcher MD Work Phone: [facility] [employer] 02-04-2023 22:32-0400 Respiratory rate 18 /min Jarvis Belcher MD Work Phone: [facility] [employer] 02-04-2023 22:30-0400 Body height 165.1 cm Jarvis Belcher MD Work Phone: [facility] [employer] 02-04-2023 22:30-0400 Body mass index (BMI) [Ratio] 48.26 kg/m2 Jarvis Belcher MD Work Phone: [facility] [employer] 02-04-2023 22:30-0400 Body weight 131.54 kg Jarvis Belcher MD Work Phone: [facility] [employer] 01-14-2023 21:53-0400 Body temperature 96.8 [degF] Gio Ricketts MD Work Phone: [facility] [employer] 01-14-2023 21:53-0400 Heart rate 80 /min Gio Ricketts MD Work Phone: [facility] [employer] 01-14-2023 21:53-0400 SaO2% (BldA) [Mass fraction] 95 % Gio Ricketts MD Work Phone: [facility] [employer] 12-09-2022 11:16-0400 Body height 166.4 cm Kassi Bridenthal DIRECTOR OF BUSINESS SERVICES - LINE WORKER Work Phone: [facility] [employer] 12-09-2022 11:16-0400 Body mass index (BMI) [Ratio] 50.64 kg/m2 Kassi Bridenthal DIRECTOR OF BUSINESS SERVICES - LINE WORKER Work Phone: [facility] [employer] 12-09-2022 11:16-0400 Body weight 140.16 kg Kassi Bridenthal DIRECTOR OF BUSINESS SERVICES - LINE WORKER Work Phone: [facility] [employer] 12-09-2022 11:16-0400 Diastolic blood pressure 62 mm[Hg] Kassi Bridenthal DIRECTOR OF BUSINESS SERVICES - LINE WORKER Work Phone: [facility] [employer] 12-09-2022 11:16-0400 Heart rate 75 /min Kassibarb Bazanal DIRECTOR OF BUSINESS SERVICES - LINE WORKER Work Phone: [facility] [employer] 12-09-2022 11:16-0400 SaO2% (BldA) [Mass fraction] 98 % Kassi Katherineenthal DIRECTOR OF BUSINESS SERVICES - LINE WORKER Work Phone: [facility] 12-09-2022 11:16-0400 Systolic blood pressure 110 mm[Hg] Kassi Hortensiaal DIRECTOR OF BUSINESS SERVICES - LINE WORKER Work Phone: [facility] [employer] 12-07-2022 10:30-0400 Diastolic blood pressure 70 mm[Hg] Catarino Gombash DO Work Phone: [facility] [employer] 12-07-2022 10:30-0400 Heart rate 77 /min Catarino Gombash DO Work Phone: [facility] [employer] 12-07-2022 10:30-0400 Respiratory rate 18 /min Catarino Gombash DO Work Phone: [facility] [employer] 12-07-2022 10:30-0400 SaO2% (BldA) [Mass fraction] 97 % Catarino Gombash DO Work Phone: [facility] [employer] 12-07-2022 10:30-0400 Systolic blood pressure 150 mm[Hg] Catarino Gombash DO Work Phone: [facility] 12-07-2022 08:34-0400 Body temperature 98.4 [degF] Catarino Gombash DO Work Phone: [facility] 04-07-2022 14:13-0400 Body temperature 98 [degF] Dr. Rik Peña Work Phone: [facility] Work Phone: 04-07-2022 14:13-0400 Body weight 143.[address] Rik Peña Work Phone: [facility] Work Phone: 04-07-2022 14:13-0400 Diastolic blood pressure 71 mm[Hg] Dr. Rik Peña Work Phone: [facility] Work Phone: 04-07-2022 14:13-0400 Heart rate 88 /min Dr. Rik Peña Work Phone: [facility] Work Phone: 04-07-2022 14:13-0400 SaO2% (BldA) [Mass fraction] 94 % Dr. Rik Peña Work Phone: [facility] Work Phone: 04-07-2022 14:13-0400 Systolic blood pressure 119 mm[Hg] Dr. Rik Peña Work Phone: [facility] Work Phone: 03-07-2022 04:10-0400 Diastolic blood pressure 68 mm[Hg] Dr. Rik Peña Work Phone: [facility] Work Phone: 03-07-2022 04:10-0400 Heart rate 94 /min Dr. Rik Peña Work Phone: [facility] Work Phone: 03-07-2022 04:10-0400 Respiratory rate 18 /min Dr. Rik Peña Work Phone: [facility] Work Phone: 03-07-2022 04:10-0400 SaO2% (BldA) [Mass fraction] 94 % Dr. Rik Peña Work Phone: [facility] Work Phone: 03-07-2022 04:10-0400 Systolic blood pressure 130 mm[Hg] Dr. Rik Peña Work Phone: [facility] Work Phone: 03-06-2022 23:30-0400 Body height 165.[address] Rik Peña Work Phone: [facility] Work Phone: 03-06-2022 23:30-0400 Body mass index (BMI) [Ratio] 51.5 kg/m2 Dr. Rik Peña Work Phone: [facility] Work Phone: 03-06-2022 23:30-0400 Body temperature 96.6 [degF] Dr. Rik Peña Work Phone: [facility] Work Phone: 03-06-2022 23:30-0400 Body weight 140.[address] Rik Peña Work Phone: [facility] Work Phone: 02-16-2022 15:35-0400 Body mass index (BMI) [Ratio] 51.1 kg/m2 Dr. Rik Peña Work Phone: [facility] Work Phone: 02-16-2022 15:35-0400 Body temperature 98.2 [degF] Dr. Rik Peña Work Phone: [facility] Work Phone: 02-16-2022 15:35-0400 Body weight 139.[address] Rik Peña Work Phone: [facility] Work Phone: 02-16-2022 15:35-0400 Diastolic blood pressure 70 mm[Hg] Dr. Rik Peña Work Phone: [facility] Work Phone: 02-16-2022 15:35-0400 Heart rate 89 /min Dr. Rik Peña Work Phone: [facility] Work Phone: 02-16-2022 15:35-0400 Respiratory rate 18 /min Dr. Rik Peña Work Phone: [facility] Work Phone: 02-16-2022 15:35-0400 SaO2% (BldA) [Mass fraction] 95 % Dr. Rik Peña Work Phone: [facility] Work Phone: 02-16-2022 15:35-0400 Systolic blood pressure 102 mm[Hg] Dr. Rik Peña Work Phone: [facility] Work Phone: 04-04-2020 20:22-0400 BP Diastolic 74 mm[Hg] [facility] [place] 04-04-2020 20:22-0400 BP Systolic 112 mm[Hg] Clint [email or web address] [place] , [place] 04-04-2020 20:22-0400 Pulse (Heart Rate) 91 /min [facility] [place] 04-04-2020 20:22-0400 Pulse Oximetry 99 % [facility] [place] 04-04-2020 20:22-0400 Respiratory Rate 18 /min Clint [email or web address] [facility], [place] 04-04-2020 15:43-0400 BMI (Body Mass Index) 51.09 kg/m2 Clint [email or web address] [place], [place] 04-04-2020 15:43-0400 Body Temperature 96.8 [degF] Clint [email or web address] [facility], [place] 04-04-2020 15:43-0400 Body weight 139.25 kg [place] Encounters Encounter Date Encounter Type Care Provider Facility Start: 01-17-2025 ambulatory Deisi Fernandes ty:[facility] Start: 01-17-2025 End: 01-17-2025 ambulatory [facility] Facility:[facility] Start: 01-14-2025 End: 01-14-2025 Refill Kassi Seymour DIRECTOR OF BUSINESS SERVICES - LINE WORKER Work Phone: [facility] Comment on above: Type 2 diabetes kyle itus with polyneuropathy (HCC) Start: 01-12-2025 End: 01-12-2025 Emergency department patient visit [facility] Facility:[facility] Start: 01-09-2025 End: 01-09-2025 Emergency department patient visit [facility] Comment on above: Fall, initial encoun ter (Primary Dx); Acute midline low back pain without sciatica; Contusion of sacrum, initial encounter Start: 01-08-2025 End: 01-09-2025 Emergency department patient visit Ray Espitia MD Work Phone: [facility] Comment on above: Dehydration (Primary Dx) Start: 01-02-2025 ambulatory [facility] Facility :[facility] Start: 01-02-2025 End: 01-02-2025 [facility] Start: 12-31-2024 End: 01-01-2025 ambulatory Kassi Beal RN [facility] Clinical Communication Start: 12-31-2024 End: 01-01-2025 Patient encounter procedure Kassi Beal RN [facility] Start: 12-25-2024 End: 12-25-2024 Refill Kassi Seymour DIRECTOR OF BUSINESS SERVICES - LINE WORKER Work Phone: [facility] Comment on above: Type 2 diabetes kyle itus with hyperglycemia, unspecified whether senior living insulin use (HCC) Start: 12-23-2024 End: 12-23-2024 Emergency department patient visit GIO RICKETTS [facility] Comment on above: Fall, initial encoun ter (Primary Dx); Contusion of lower back, initial encounter Start: 12-19-2024 End: 12-19-2024 Emergency department patient visit Amber Holley DO Work Phone: [facility] Comment on above: Skin tag (Primary Dx ); S/P skin biopsy Start: 12-19-2024 End: 12-19-2024 ambulatory [facility] Facility:[facility] Start: 12-18-2024 End: 12-18-2024 ambulatory Hugo Pierre Facility:[facility] Start: 12-16-2024 End: 12-16-2024 ambulatory Deisi Portillo Facility:[facility] Start: 12-08-2024 End: 12-08-2024 ambulatory Deisi Portillo Facility:[facility] Start: 11-29-2024 End: 11-29-2024 ambulatory Deisi Portillo Facility:[facility] Start: 11-27-2024 End: 11-27-2024 ambulatory Deisi Nath Facility:[facility] Start: 11-25-2024 End: 11-25-2024 ambulatory [facility] Facility:[facility] Start: 11-15-2024 End: 11-15-2024 ambulatory Gio Ricketts Facility:[facility] Start: 11-10-2024 End: 11-10-2024 ambulatory Deisi Nath Facility:[facility] Start: 11-06-2024 ambulatory Gio Ricketts Facility :[facility] Start: 10-31-2024 End: 10-31-2024 ambulatory Gio Ricketts Facility:[facility] Start: 10-31-2024 End: 10-31-2024 ambulatory Deisi Nath Facility:[facility] Start: 10-24-2024 End: 10-24-2024 Office outpatient visit 25 minutes Kassi Seymour DIRECTOR OF BUSINESS SERVICES - LINE WORKER Work Phone: [facility] Comment on above: Type 2 diabetes kyle [...] 2 diabetes mellitus with hyperglycemia, unspecified whether inspector mechanical insulin use (HCC); Yeast dermatitis; Class 3 severe obesity due to excess calories with serious comorbidity and body mass index (BMI) of 40.0 to 44.9 in adult (HCC) Start: 10-24-2024 End: 10-24-2024 ambulatory KASSI SEYMOUR [facility] Start: 10-03-2024 End: 10-03-2024 Refill Kassi Seymour DIRECTOR OF BUSINESS SERVICES - LINE WORKER Work Phone: [facility] Comment on above: Anxiety; Essential hypertension Start: 09-27-2024 End: 09-27-2024 Emergency department patient visit Jimenez Maddox MD Work Phone: [facility] Comment on above: Hyperglycemia (Prima ry Dx); CARLOS (acute kidney injury) (HCC); Facial flushing Start: 09-27-2024 End: 09-30-2024 ambulatory Debra Wheeler RN [facility] Clinical Communication Start: 09-27-2024 End: 09-30-2024 Patient encounter procedure Debra Wheeler RN [facility] Start: 09-20-2024 End: 09-20-2024 Refill Kassi Seymour DIRECTOR OF BUSINESS SERVICES - LINE WORKER Work Phone: [facility] Comment on above: Type 2 diabetes kyle itus with hyperglycemia, unspecified whether senior living insulin use (HCC) Start: 09-02-2024 End: 09-02-2024 Emergency department patient visit [facility] Facility:[facility] Start: 08-25-2024 End: 08-25-2024 Office outpatient visit 15 minutes Kate Desir DIRECTOR OF BUSINESS SERVICES - [employer] Work Phone: [facility] Comment on above: URI with cough and c ongestion (Primary Dx); Chronic bronchitis, unspecified chronic bronchitis type (HCC) Start: 08-02-2024 End: 08-02-2024 Telephone encounter Kassi Seymour DIRECTOR OF BUSINESS SERVICES - [employer] Work Phone: [facility] Comment on above: Results Start: 08-01-2024 End: 08-01-2024 Office outpatient visit 25 minutes Kassi Seymour DIRECTOR OF BUSINESS SERVICES - [employer] Work Phone: [facility] Comment on above: 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); Low platelet count (HCC); Essential hypertension; Hyperlipidemia LDL goal <70; Obstructive sleep apnea syndrome; Pancytopenia (HCC); Encounter for screening mammogram for malignant neoplasm of breast; Type 2 diabetes mellitus with hyperglycemia, unspecified whether inspector mechanical insulin use (HCC); Other cirrhosis of liver [...] 06-30-2024 End: 06-30-2024 Orders Only Kate Desir DIRECTOR OF BUSINESS SERVICES - [employer] Work Phone: [facility] Comment on above: Type 2 diabetes kyle itus with hyperglycemia, unspecified whether inspector mechanical insulin use (HCC) (Primary Dx) Start: 06-28-2024 End: 06-28-2024 Orders Only Kate Desir DIRECTOR OF BUSINESS SERVICES - LINE WORKER Work Phone: [facility] Start: 05-30-2024 End: 05-30-2024 Orders Only Kassi Bridenthal DIRECTOR OF BUSINESS SERVICES - LINE WORKER Work Phone: [facility] Comment on above: Chronic bronchitis, unspecified chronic bronchitis type (HCC) (Primary Dx) Start: 05-28-2024 End: 05-29-2024 Refill Kassi Bridenthal DIRECTOR OF BUSINESS SERVICES - LINE WORKER Work Phone: [facility] Comment on above: Anxiety; Essential hypertension Start: 05-28-2024 End: 05-29-2024 Refill Kassi Bridenthal DIRECTOR OF BUSINESS SERVICES - LINE WORKER Work Phone: [facility] Comment on above: Type 2 diabetes kyle itus with polyneuropathy (HCC) Start: 04-23-2024 End: 04-23-2024 Emergency department patient visit Rc Freeman Facility:[facility] Start: 03-22-2024 End: 03-22-2024 Emergency department patient visit Gio Ricketts Facility:[facility] Start: 03-02-2024 End: 03-02-2024 Refill Kassi Bridenthal DIRECTOR OF BUSINESS SERVICES - LINE WORKER Work Phone: [facility] Comment on above: Anxiety Start: 02-26-2024 End: 02-26-2024 Emergency department patient visit Nelson Grady MD Work Phone: [facility] Comment on above: Intertrigo (Primary Dx) Start: 02-19-2024 End: 02-19-2024 Emergency department patient visit Gio Ricketts MD Work Phone: [facility] Comment on above: Acute nonintractable headache, unspecified headache type (Primary Dx) Start: 01-03-2024 End: 01-03-2024 Refill Kassi Bridenthal DIRECTOR OF BUSINESS SERVICES - LINE WORKER Work Phone: [facility] Comment on above: Anxiety; Essential hypertension; Type 2 diabetes mellitus with polyneuropathy (HCC) Start: 12-13-2023 End: 12-13-2023 Emergency department patient visit Victorino Akins MD Work Phone: [facility] Comment on above: Hypoglycemia (Primar y Dx) Start: 12-04-2023 End: 12-04-2023 Emergency department patient visit Gio Ricketts MD Work Phone: [facility] Comment on above: Type 2 diabetes kyle itus treated with insulin (CMS/HCC) (HCC) (Primary Dx) Start: 11-16-2023 Telephone encounter Brynn Devine RN [facility] Comment on above: Diabetes (CGM Diabet es) Start: 11-11-2023 End: 11-11-2023 Office outpatient visit 25 minutes Kassi Bridenthal DIRECTOR OF BUSINESS SERVICES - LINE WORKER Work Phone: [facility] Comment on above: Hyponatremia (Primar y Dx); Type 2 diabetes mellitus with polyneuropathy (HCC); Other cirrhosis of liver (HCC); Pancytopenia (HCC) Start: 10-14-2023 Orders Only Kassi Katherineen thal DIRECTOR OF BUSINESS SERVICES - LINE WORKER Work Phone: [facility] Comment on above: Type 2 diabetes kyle itus with polyneuropathy (HCC) (Primary Dx) Start: 10-13-2023 Refill Kassi Katherineen thal DIRECTOR OF BUSINESS SERVICES - LINE WORKER Work Phone: [facility] Comment on above: Type 2 diabetes kyle itus with polyneuropathy (HCC) b12 Start: 10-13-2023 End: 10-13-2023 Office outpatient visit 40 minutes Angel Juan MD Work Phone: [facility] Oncology Comment on above: Pancytopenia (HCC) ( Primary Dx) Start: 10-11-2023 End: 10-12-2023 Emergency department patient visit William Max DO Work Phone: [facility] Medical Surgical Unit MSU 1E Comment on above: Hypoglycemia (Primar y Dx) Start: 09-30-2023 End: 09-30-2023 Subsequent hospital visit by physician Angel Juan MD Work Phone: [facility] Comment on above: Pancytopenia (HCC) Start: 09-22-2023 End: 09-22-2023 Office outpatient new 60 minutes Angel Juan MD Work Phone: [facility] Oncology Comment on above: Pancytopenia (HCC) ( Primary Dx) Start: 08-26-2023 End: 08-26-2023 Patient encounter procedure Kassi Seymour DIRECTOR OF BUSINESS SERVICES - LINE WORKER [facility] Phone: Start: 08-26-2023 End: 08-26-2023 Periodic preventive med est patient 40-64yrs Kassi Seymour DIRECTOR OF BUSINESS SERVICES - LINE WORKER Work Phone: [facility] Comment on above: Annual physical [...] patient visit Mariana Snow MD Work Phone: [facility] ED Comment on above: Chest pain, unspecif ied type (Primary Dx) Start: 03-15-2023 End: 03-15-2023 Emergency department patient visit Yogesh Dodson MD Work Phone: [facility] ED Comment on above: Strain of neck muscl e, initial encounter (Primary Dx) Start: 02-18-2023 End: 02-20-2023 Emergency department patient visit Mariana Snow MD Work Phone: [facility] CDU Comment on above: Hypoglycemia (Primar y Dx) Start: 02-16-2023 End: 02-16-2023 Office outpatient visit 25 minutes Kassi Murphyjoaquimal DIRECTOR OF BUSINESS SERVICES - LINE WORKER Work Phone: [facility] Medicine Comment on above: Lymphopenia (Primary Dx); Thrombocytopenia (HCC); Type 2 diabetes mellitus with polyneuropathy (HCC); Acute pain of left knee; Essential hypertension Start: 02-13-2023 End: 02-13-2023 Emergency department patient visit Nelson Grady MD Work Phone: [facility] ED Comment on above: Near syncope (Primar y Dx) Start: 02-06-2023 End: 02-06-2023 Subsequent hospital visit by physician [facility] [employer] [facility] Radiology Comment on above: Arrived Start: 02-06-2023 End: 02-06-2023 Emergency department patient visit Izabela Noyola DO Work Phone: [facility] ED Comment on above: Sprain of left knee, unspecified ligament, initial encounter (Primary Dx) Start: 02-04-2023 End: 02-05-2023 Emergency department patient visit Jarvis Belcher MD Work Phone: [facility] ED Comment on above: Abscess (Primary Dx) ; Lilly infection Start: 01-14-2023 End: 01-14-2023 Emergency department patient visit Gio Ricketts MD Work Phone: [facility] ED Comment on above: Fall, initial encoun ter (Primary Dx); Left hand pain; Left wrist pain; Left shoulder pain, unspecified chronicity Start: 12-09-2022 End: 12-09-2022 Office outpatient new 45 minutes Kassi Katherineenthal DIRECTOR OF BUSINESS SERVICES - LINE WORKER Work Phone: [facility] Medicine Comment on above: Lip swelling (Primar y Dx); Type 2 diabetes mellitus with polyneuropathy (HCC); Chronic obstructive pulmonary disease, unspecified COPD type (HCC); Essential hypertension; Hyperlipidemia LDL goal <70; Anxiety Start: 12-07-2022 End: 12-07-2022 Emergency department patient visit Catarino Arce DO Work Phone: [facility] ED Comment on above: Angioedema, initial encounter (Primary Dx); Lip swelling; Cold sore Start: 05-22-2022 End: 05-22-[address] Rik Peña Work Phone: [facility] Work Phone: Start: 05-22-2022 End: 05-22-[address] Rik Peña Work Phone: [facility]-Laboratory Start: 05-20-2022 End: 05-20-[address] Rik Peña Work Phone: [facility] Work Phone: Start: 05-20-2022 End: 05-20-[address] Rik Peña Work Phone: [facility]-Laboratory Start: 04-07-2022 End: 04-07-[address] Rik Peña Work Phone: [facility] Work Phone: Start: 04-07-2022 End: 04-07-[address] Rik Peña Work Phone: [facility] Start: 03-31-2022 Non-patient / Non-visit Dr. Hermes Peña Work Phone: [facility] Start: 03-31-2022 End: 03-31-[address] Rik Peña Work Phone: [facility]-Cardiovascular Services Start: 03-06-2022 End: 03-07-2022 Emergency department patient visit Dr. Rik Peña Work Phone: [facility]-Emergency Department Start: 02-16-[address] Rik Peña Work Phone: [facility] Start: 02-16-2022 End: 02-16-[address] Rik Peña Work Phone: [facility] Start: 02-09-2022 End: 02-09-2022 Patient encounter procedure [facility]-Outpatient Breast Imaging Start: 11-07-2021 End: 11-07-2021 Patient encounter procedure [facility]Laboratory Start: 06-14-2020 End: 06-14-2020 Subsequent hospital visit by physician Jeniffer Ramos Work Phone: [facility] Radiology Comment on above: Nonintractable heada dara, unspecified chronicity pattern, unspecified headache type; Body aches; Cough; Head congestion; Mid back pain; Chest pain varying with breathing; Hx of bacterial pneumonia; Lab test negative for COVID-19 virus; SOB (shortness of breath) Start: 04-20-2020 End: 04-20-2020 Subsequent hospital visit by physician Dyllan Collins Work Phone: [facility] Laboratory Start: 04-04-2020 End: 04-04-2020 Emergency department patient visit Clint Daysi Bright Work Phone: [facility] ED Comment on above: Chest pain, unspecif ied type (Primary Dx) Start: 02-07-2020 End: 02-07-2020 Subsequent hospital visit by physician Gio Ricketts Work Phone: [facility]ammo Comment on above: Arrived Start: 01-23-2020 End: 01-23-2020 Subsequent hospital visit by physician Dyllan Collins Work Phone: [facility] Laboratory Start: 10-12-2019 End: 10-12-2019 Subsequent hospital visit by physician Dyllan Collins Work Phone: [facility] Laboratory Start: 2018 Evaluation and management of inpatient UNKNOWN PROVIDER [facility] Procedures Date Procedure Procedure Detail Performing Clinician Start: 01-09-2025 End: 01-09-2025 Radex spine lumbosacral 2/3 views Clayton Doe APRN - LINE WORKER Work Phone: Start: 01-09-2025 Comprehensive metabo lic [...] Ct lumbar spine w/o contrast material Annalisa Apodacainger PA-C Work Phone: Start: 12-19-2024 Removal skn tags 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 printing 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 fibrq tags any area upw Amber Kishan DO Work Phone: Start: 12-18-2024 Colonoscopy Amber Meagan hernandez DO Work Phone: Start: 09-27-2024 End: 09-27-2024 [...] - S ariana or Plasma Kassi Bridenthal DIRECTOR OF BUSINESS SERVICES - LINE WORKER Work Phone: Start: 08-01-2024 Lipid 1995 panel - S ariana or Plasma Kassi Bridenthal DIRECTOR OF BUSINESS SERVICES - LINE WORKER Work Phone: Start: 02-19-2024 Urinalysis complete panel - Urine Lesia Solis DIRECTOR OF BUSINESS SERVICES - [facility] Work Phone: Start: 02-19-2024 Urnls dip stick/tabl et reagent auto microscopy Lesia Solis DIRECTOR OF BUSINESS SERVICES - [facility] Work Phone: Start: 02-19-2024 Ct head/brain w/o co ntrast material Lesia Solis DIRECTOR OF BUSINESS SERVICES - [facility] Work Phone: Start: 02-19-2024 SARS-COV-2, FLU A/B, AND RSV COMBO Lesia Solis DIRECTOR OF BUSINESS SERVICES - [facility] Work Phone: Start: 02-19-2024 Comprehensive metabo lic panel Lesia Solis DIRECTOR OF BUSINESS SERVICES [employer] [facility] Work Phone: Start: 02-19-2024 Manual differential performed [Presence] in Blood Lesia Solis DIRECTOR OF BUSINESS SERVICES - [facility] Work Phone: Start: 12-13-2023 POCT GLUCOSE METER [...] Work Phone: Start: 10-12-2023 POCT GLUCOSE METER Goodman cait Calero MD Work Phone: Start: 10-12-2023 Glucose quantitative blood xcpt reagent strip William Benykola DO Work Phone: Start: 10-12-2023 POCT GLUCOSE METER Goodman cait Calero MD Work Phone: Start: 10-12-2023 Glucose quantitative blood xcpt reagent strip William Harinderrakola DO Work Phone: Start: 10-12-2023 POCT GLUCOSE METER Caity Calero MD Work Phone: Start: 10-11-2023 POCT GLUCOSE METER Caity Calero MD Work Phone: Start: 10-11-2023 End: 10-11-2023 Glucose quantitative blood xcpt reagent strip William Mudrakola DO Work Phone: Start: 10-11-2023 Ct head/brain [...] Start: 08-26-2023 Comprehensive metabo lic panel Kassi Seymour DIRECTOR OF BUSINESS SERVICES - LINE WORKER Work Phone: Start: 08-26-2023 Culture bacterial quanttative colony count urine Kassi Seymour DIRECTOR OF BUSINESS SERVICES - LINE WORKER Work Phone: Start: 08-26-2023 Lipid panel Kassi Br identhal DIRECTOR OF BUSINESS SERVICES - LINE WORKER Work Phone: Start: 08-26-2023 Urnls dip stick/tabl et rgnt non-auto w/o micrscp Kassi Murphyenthal DIRECTOR OF BUSINESS SERVICES - LINE WORKER Work Phone: Start: 08-26-2023 Lipid 1996 panel - S ariana or Plasma Kassi Murphyenthkelly DIRECTOR OF BUSINESS SERVICES - LINE WORKER Work Phone: Start: 05-16-2023 Assay of troponin [...] Fibrin dgradj produc ts d-dimer quantitative Jeniffer Daosylvia Work Phone: Start: 04-20-2020 Creatinine other source [...] for Adults (1 - 1-dose 75+ series) [facility] Start: 12-18-2029 Screening for malignant neoplasm of colon [facility] Start: 2027 RSV Immunization aged 60 or older (1 - 1-dose 60+ series) RSV Immunization aged 60 or older (1 - 1-dose 60+ series) [facility] Start: 04-19-2026 DTaP/Tdap/Td vaccine (2 - Td) DTaP/Tdap/Td vaccine (2 - Td) [facility] [place] Start: 04-19-2026 DTaP/Tdap/Td Vaccines (2 - Td or Tdap) DTaP/Tdap/Td Vaccines (2 - Td or Tdap) [facility] Start: 01-09-2026 Diabetes: Estimated Glomerular Filtration Rate for Kidney Health Diabetes: Estimated Glomerular Filtration Rate for Kidney Health [facility] Start: 12-08-2025 Diabetes: Estimated Glomerular Filtration Rate for Kidney Health Diabetes: Estimated Glomerular Filtration Rate for Kidney Health [facility] Start: 09-27-2025 Diabetes: Estimated Glomerular Filtration Rate for Kidney Health Diabetes: Estimated Glomerular Filtration Rate for Kidney Health [facility] Start: 08-31-2025 Lipid panel Lipid Panel [facility] Start: 08-01-2025 Diabetes: Estimated Glomerular Filtration Rate for Kidney Health Diabetes: Estimated Glomerular Filtration Rate for Kidney Health [facility] Start: 08-01-2025 Diabetes: Urine Albumin-Creatinine Ratio for Kidney Health Diabetes: Urine Albumin-Creatinine Ratio for Kidney Health [facility] Start: 08-01-2025 Diabetic foot examination Diabetes: Foot Exam [facility] Start: 08-01-2025 Glaucoma screening Diabetes: Retinopathy Screening [facility] Comment on above: Postponed from 1977 (Patient Refus ed) Start: 08-01-2025 Hemoglobin A1c measurement Diabetes: Hemoglobin A1C [facility] Start: 08-01-2025 Lipid panel Lipid Panel [facility] Start: 08-01-2025 Screening for malignant neoplasm of cervix Cervical Cancer Screening [facility] Comment on above: Postponed from 1997 (Patient Refus ed) Start: 08-01-2025 Screening for malignant neoplasm of colon Colorectal Cancer Screening [facility] Comment on above: Postponed from 1967 (Patient Refus ed) Start: 03-12-2025 Influenza vaccination [facility] Start: 02-18-2025 Diabetes: Estimated Glomerular Filtration Rate for Kidney Health Diabetes: Estimated Glomerular Filtration Rate for Kidney Health [facility] Start: 01-31-2025 End: 01-31-2025 Patient encounter procedure 01/31/2025 8:40 AM EDT Office Visit [address] [address] Bridenthal, Kassi, DIRECTOR OF BUSINESS SERVICES - LINE WORKER [address] [place] [address] [place] [address] [facility] Start: 01-29-2025 Depression Monitoring Depression Monitoring [facility] Start: 01-09-2025 End: 01-09-2025 Patient encounter procedure 01/09/2025 8:00 AM EDT Office Visit [facility] [address] [place] [address] [place] [address] Bridenthal, Kassi, DIRECTOR OF BUSINESS SERVICES - LINE WORKER [address] [place] [address] [facility] Start: 01-08-2025 Influenza vaccination Influenza Vaccine (#1) [facility] Comment on above: Postponed from 03/12/2024 (Patient Refus ed) Start: 11-10-2024 Diabetes: Estimated Glomerular Filtration Rate for Kidney Health Diabetes: Estimated Glomerular Filtration Rate for Kidney Health [facility] Start: 10-24-2024 End: 10-24-2024 Patient encounter procedure 10/24/2024 7:20 AM EDT Office Visit [facility] [address] [address] Bridenthal, Kassi, DIRECTOR OF BUSINESS SERVICES - LINE WORKER [address] [place] [address] [facility] Start: 09-02-2024 End: 08-02-2025 Alanine aminotransferase [Enzymatic activity/volume] in Serum or Plasma ALT Lab Routine Hyperlipidemia LDL goal <70 Expected: 09/02/2024 (Approximate), Expires: 08/02/2025 [facility] Work Phone: Comment on above: Expected: 09/02/2024 (Approximate), Expi res: 08/02/2025 Start: 09-02-2024 End: 08-02-2025 Aspartate aminotransferase [Enzymatic activity/volume] in Serum or Plasma AST Lab Routine Hyperlipidemia LDL goal <70 Expected: 09/02/2024 (Approximate), Expires: 08/02/2025 [facility] Comment on above: Expected: 09/02/2024 (Approximate), Expi res: 08/02/2025 Start: 09-02-2024 End: 08-02-2025 Lipid 1996 panel - Serum or Plasma Lipid panel Lab Routine Hyperlipidemia LDL goal <70 Expected: 09/02/2024 (Approximate), Expires: 08/02/2025 [facility] Comment on above: Expected: 09/02/2024 (Approximate), Expi res: 08/02/2025 Start: 08-31-2024 End: 08-31-2024 Clinical Support 08/31/2024 7:00 AM EST Clinical Support [facility] [address] [place] [address] [facility] Start: 08-26-2024 Hemoglobin A1c measurement Diabetes: Hemoglobin A1C [facility] Start: 08-26-2024 Lipid panel Lipid Panel [facility] Start: 08-01-2024 End: 07-31-2025 CBC panel - Blood by Automated count CBC Lab Routine Pancytopenia (HCC) Expected: 08/01/2024 (Approximate), Expires: 07/31/2025 [facility] Comment on above: Expected: 08/01/2024 (Approximate), Expi res: 07/31/2025 Start: 08-01-2024 End: 07-31-2025 Comprehensive metabolic 1998 panel - Serum or Plasma Comprehensive metabolic panel Lab Routine Type 2 diabetes with nephropathy (HCC) Expected: 08/01/2024 (Approximate), Expires: 07/31/2025 [facility] Comment on above: Expected: 08/01/2024 (Approximate), Expi res: 07/31/2025 Start: 08-01-2024 End: 09-28-2025 DBT Breast - bilateral screening Bilateral screening mammogram with tomosynthesis Imaging Routine Encounter for screening mammogram for malignant neoplasm of breast Expected: 08/01/2024, Expires: 09/28/2025 [facility] Comment on above: Expected: 08/01/2024, Expires: Start: 08-01-2024 End: 07-31-2025 Hemoglobin A1c measurement Hemoglobin A1c Lab Routine Type 2 diabetes with nephropathy (HCC) Expected: 08/01/2024 (Approximate), Expires: 07/31/2025 [facility] [employer] Comment on above: Expected: 08/01/2024 (Approximate), Expi res: 07/31/2025 Start: 08-01-2024 End: 07-31-2025 Lipid 1996 panel - Serum or Plasma Lipid panel Lab Routine Hyperlipidemia LDL goal <70 Expected: 08/01/2024 (Approximate), Expires: 07/31/2025 [facility] [employer] Comment on above: Expected: 08/01/2024 (Approximate), Expi res: 07/31/2025 Start: 08-01-2024 End: 07-31-2025 Microalbumin/Creatinine panel in random Urine Microalbumin / creatinine, urine ratio Lab Routine Type 2 diabetes with nephropathy (HCC) Expected: 08/01/2024 (Approximate), Expires: 07/31/2025 [facility] [employer] [facility] Work Phone: Comment on above: Expected: 08/01/2024 (Approximate), Expi res: 07/31/2025 Start: 05-13-2024 Glaucoma screening Diabetes: Retinopathy Screening [facility] Comment on above: Postponed from 1977 (Other Patient Reasons) Start: 05-13-2024 Screening for malignant neoplasm of cervix Cervical Cancer Screening [facility] Comment on above: Postponed from 1997 (Other Patient Reasons) Start: 05-12-2024 Screening for malignant neoplasm of colon Colorectal Cancer Screening [facility] Comment on above: Postponed from 1967 (Other Patient Reasons) Start: 04-12-2024 End: 04-12-2024 Patient encounter procedure [facility] Start: 03-12-2024 Influenza vaccination [facility] Start: 02-24-2024 Depression Monitoring Depression Monitoring [facility] Start: 02-24-2024 Depresssion Monitoring Depresssion Monitoring [facility] Start: 02-23-2024 Hemoglobin A1c measurement Diabetes: Hemoglobin A1C [facility] Start: 12-24-2023 End: 12-24-2023 Patient encounter procedure 12/24/2023 7:00 AM EDT Office Visit [facility] [address] [place] [address] [place] [address] Bridenthal, Kassi, DIRECTOR OF BUSINESS SERVICES - LINE WORKER [address] [place] [address] [place] [address] [facility] Start: 12-10-2023 Diabetic foot examination Diabetes: Foot Exam [facility] Start: 12-02-2023 End: 12-02-2023 Patient encounter procedure 12/02/2023 8:00 AM EDT Office Visit [facility] [address] [place] [address] [place] [address] Bridenthal, Kassi, DIRECTOR OF BUSINESS SERVICES - LINE WORKER [address] [place] [address] [place] [address] [facility] Start: 11-25-2023 End: 11-25-2023 Patient encounter procedure 11/25/2023 8:00 AM EDT Office Visit [facility] [address] [place] [address] [place] [address] Bridenthal, Kassi, DIRECTOR OF BUSINESS SERVICES - LINE WORKER [address] [place] [address] [place] [address] [facility] Start: 11-11-2023 End: 11-10-2024 Basic metabolic 1998 panel - Serum or Plasma Basic metabolic panel Lab Routine Hyponatremia Expected: 11/11/2023 (Approximate), Expires: 11/10/2024 [facility] Work Phone: Comment on above: Expected: 11/11/2023 (Approximate), Expi res: 11/10/2024 Start: 11-11-2023 End: 11-11-2023 Patient encounter procedure 11/11/2023 7:20 AM EDT Office Visit [facility] [address] [place] [address] [place] [address] Bridenthal, Kassi, DIRECTOR OF BUSINESS SERVICES - LINE WORKER [address] [place] [address] [place] [address] [facility] Start: 10-13-2023 End: 10-13-2023 Patient encounter procedure 10/13/2023 11:00 AM EDT Office Visit [facility] [address] [place] [address] Angel Juan MD [address] [place] [address] [facility] Start: 09-30-2023 End: 09-30-2023 Patient encounter procedure 09/30/2023 8:30 AM EDT Appointment [facility] [address] [place] [address] Angel Juan MD [address] [place] [address] [facility] Start: 09-29-2023 End: 09-21-2024 CBC W Auto Differential panel - Blood CBC auto differential Lab Routine Pancytopenia (HCC) Expected: 09/29/2023 (Approximate), Expires: 09/21/2024 [facility] Work Phone: Comment on above: Expected: 09/29/2023 (Approximate), Expi res: 09/21/2024 Start: 09-29-2023 End: 09-21-2024 Lactate dehydrogenase [Enzymatic activity/volume] in Serum or Plasma by Lactate to pyruvate reaction Lactate dehydrogenase Lab Routine Pancytopenia (HCC) Expected: 09/29/2023 (Approximate), Expires: 09/21/2024 [facility] Comment on above: Expected: 09/29/2023 (Approximate), Expi res: 09/21/2024 Start: 09-22-2023 End: 09-21-2024 Cobalamin (Vitamin B12) [Mass/volume] in Serum or Plasma Vitamin B12 Lab Routine Pancytopenia (HCC) Expected: 09/22/2023 (Approximate), Expires: 09/21/2024 [facility] Comment on above: Expected: 09/22/2023 (Approximate), Expi res: 09/21/2024 Start: 09-22-2023 End: 09-21-2024 Comprehensive metabolic 1998 panel - Serum or Plasma Comprehensive metabolic panel Lab Routine Pancytopenia (HCC) Expected: 09/22/2023 (Approximate), Expires: 09/21/2024 [facility] Comment on above: Expected: 09/22/2023 [...] Pancytopenia (HCC) Expected: 09/22/2023 (Approximate), Expires: 09/21/2024 [facility] Comment on above: Expected: 09/22/2023 (Approximate), Expi res: 09/21/2024 Start: 09-22-2023 End: 09-21-2024 Homocysteine, serum Homocysteine, serum Lab Routine Pancytopenia (HCC) Expected: 09/22/2023 (Approximate), Expires: 09/21/2024 [facility] Comment on above: Expected: 09/22/2023 [...] Pancytopenia (HCC) Expected: 09/22/2023 (Approximate), Expires: 09/21/2024 [facility] [employer] Comment on above: Expected: 09/22/2023 (Approximate), Expi res: 09/21/2024 Start: 09-22-2023 End: 09-21-2024 Methylmalonate [Moles/volume] in Serum or Plasma Methylmalonic acid, serum Lab Routine Pancytopenia (HCC) Expected: 09/22/2023 (Approximate), Expires: 09/21/2024 [facility] [employer] Comment on above: Expected: 09/22/2023 (Approximate), Expi res: 09/21/2024 Start: 09-22-2023 End: 09-21-2024 Protein, Total and Protein Electrophoresis Protein, Total and Protein Electrophoresis Lab Routine Pancytopenia (HCC) Expected: 09/22/2023 (Approximate), Expires: 09/21/2024 [facility] [employer] Comment on above: Expected: 09/22/2023 (Approximate), Expi res: 09/21/2024 Start: 09-22-2023 End: 09-21-2024 Reticulocytes panel - Blood Reticulocytes Lab Routine Pancytopenia (HCC) Expected: 09/22/2023 (Approximate), Expires: 09/21/2024 [facility] [employer] Comment on above: Expected: 09/22/2023 (Approximate), Expi res: 09/21/2024 Start: 09-22-2023 End: 09-21-2024 US Abdomen US abdomen complete Imaging Routine Pancytopenia (HCC) Expected: 09/22/2023, Expires: 09/21/2024 [facility] [employer] Comment on above: Expected: 09/22/2023, Expires: Start: 09-22-2023 End: 09-22-2023 Patient encounter procedure 09/22/2023 9:15 AM EDT Office Visit [facility] [address] [place] [id number] Angel Juan MD [address] [facility] [address] [place] [address] [facility] Start: 08-26-2023 End: 08-26-2024 Bacteria identified in Urine by Culture Urine culture (clean catch) Microbiology Routine Urinary tract infection symptoms Expected: 08/26/2023 (Approximate), Expires: 08/26/2024 [facility] [employer] Comment on above: Expected: 08/26/2023 (Approximate), Expi res: 08/26/2024 Start: 08-26-2023 End: 08-26-2024 CBC panel - Blood by Automated count CBC Lab Routine Lymphopenia Expected: 08/26/2023 (Approximate), Expires: 08/26/2024 [facility] [employer] Comment on above: Expected: 08/26/2023 (Approximate), Expi res: 08/26/2024 Start: 08-26-2023 End: 08-26-2024 Comprehensive metabolic 1998 panel - Serum or Plasma Comprehensive metabolic panel Lab Routine Type 2 diabetes mellitus with polyneuropathy (HCC) Essential hypertension Expected: 08/26/2023 (Approximate), Expires: 08/26/2024 [facility] [employer] [facility] Work Phone: Comment on above: Expected: 08/26/2023 (Approximate), Expi res: 08/26/2024 Start: 08-26-2023 End: 10-24-2024 DBT Breast - bilateral screening Bilateral screening mammogram with tomosynthesis Imaging Routine Encounter for screening mammogram for malignant neoplasm of breast Expected: 08/26/2023, Expires: 10/24/2024 [employer] [employer] Comment on above: Expected: 08/26/2023, Expires: Start: 08-26-2023 End: 08-26-2024 Hemoglobin A1c measurement Hemoglobin A1c Lab Routine Type 2 diabetes mellitus with polyneuropathy (HCC) Expected: 08/26/2023 (Approximate), Expires: 08/26/2024 [facility] [employer] Comment on above: Expected: 08/26/2023 (Approximate), Expi res: 08/26/2024 Start: 08-26-2023 End: 08-26-2024 Lipid 1996 panel - Serum or Plasma Lipid panel Lab Routine Hyperlipidemia LDL goal <70 Expected: 08/26/2023 (Approximate), Expires: 08/26/2024 [facility] Comment on above: Expected: 08/26/2023 (Approximate), Expi res: 08/26/2024 Start: 08-26-2023 End: 08-26-2024 Microalbumin/Creatinine panel in random Urine Microalbumin / creatinine, urine ratio Lab Routine Type 2 diabetes mellitus with polyneuropathy (HCC) Expected: 08/26/2023 (Approximate), Expires: 08/26/2024 [facility] Comment on above: Expected: 08/26/2023 (Approximate), Expi res: 08/26/2024 Start: 08-20-2023 End: 08-20-2023 Patient encounter procedure 08/20/2023 10:30 AM EST Office Visit [facility] [address] [place] [address] [phone] Gio Ricketts MD [address] [place] [address] [phone] [facility] Start: 03-12-2023 COVID-19 Vaccine ( season) COVID-19 Vaccine ( season) [facility] Start: 03-12-2023 Influenza vaccination Influenza Vaccine (#1) [facility] Start: 02-22-2023 End: 02-17-2024 CBC W Auto Differential panel - Blood CBC auto differential Lab Routine Lymphopenia Thrombocytopenia (HCC) Expected: 02/22/2023 (Approximate), Expires: 02/17/2024 [facility] Work Phone: Comment on above: Expected: 02/22/2023 (Approximate), Expi res: 02/17/2024 Start: 02-22-2023 End: 02-17-2024 Hemoglobin A1c/Hemoglobin.total in Blood Hemoglobin A1c Lab Routine Type 2 diabetes mellitus with polyneuropathy (HCC) Expected: 02/22/2023 (Approximate), Expires: 02/17/2024 [facility] Comment on above: Expected: 02/22/2023 (Approximate), Expi res: 02/17/2024 Start: 02-22-2023 End: 02-17-2024 Peripheral blood smear Peripheral blood smear Pathology and Cytology Routine Lymphopenia Expected: 02/22/2023 (Approximate), Expires: 02/17/2024 [facility] Comment on above: Expected: 02/22/2023 (Approximate), Expi res: 02/17/2024 Start: 02-22-2023 End: 02-22-2023 Clinical Support 02/22/2023 10:00 AM EDT Clinical Support [facility] [address] [place] [address] [facility] Start: 02-09-2023 Screening for malignant neoplasm of breast Mammogram [facility] Start: 12-23-2022 End: 12-23-2022 Patient encounter procedure 12/23/2022 Office Visit Family Medicine Kassi Seymour, DIRECTOR OF BUSINESS SERVICES - LINE WORKER [address] [place] [address] [facility] Start: 12-09-2022 End: 12-10-2023 Microalbumin/Creatinine panel in random Urine Microalbumin / creatinine urine ratio Lab Routine Type 2 diabetes mellitus with polyneuropathy (HCC) Expected: 12/09/2022 (Approximate), Expires: 12/10/2023 [facility] Work Phone: Comment on above: Expected: 12/09/2022 (Approximate), Expi res: 12/10/2023 Start: 12-09-2022 End: 12-09-2022 Patient encounter procedure 12/09/2022 Office Visit Family Medicine Kassi Seymour, DIRECTOR OF BUSINESS SERVICES - LINE WORKER [address] [place] [address] [facility] Start: 04-16-2022 Diabetes: Urine Albumin-Creatinine Ratio for Kidney Health Diabetes: Urine Albumin-Creatinine Ratio for Kidney Health [facility] Start: 04-16-2022 Lipid panel Lipid Panel [facility] Start: 04-16-2022 Urine screening for protein Diabetes: Urine Protein Screening [facility] Start: 03-31-2022 Hemoglobin A1c measurement Diabetes: Hemoglobin A1C [facility] Start: 03-07-2022 [facility] Work Phone: Start: 02-06-2022 Screening for malignant neoplasm of breast Breast cancer screen [place], [place] Start: 01-01-2022 COVID-19 Vaccine (3 - Booster for Pfizer series) COVID-19 Vaccine (3 - Booster for Pfizer series) [facility] Start: 01-01-2022 COVID-19 Vaccine (3 - Pfizer series) COVID-19 Vaccine (3 - Pfizer series) [facility] Start: 09-08-2021 Colon cancer screen colonoscopy Colon cancer screen colonoscopy [place], [place] Start: 09-08-2021 Screening for malignant neoplasm of colon [facility] Start: 07-10-2021 Diabetic retinal exam Diabetic retinal exam [place], [place] Start: 06-30-2021 Hemoglobin A1c measurement Diabetes: Hemoglobin A1C [facility] Start: 04-20-2021 Creatinine measurement Creatinine monitoring [place], [place] Start: 04-20-2021 Potassium monitoring Potassium monitoring [place] Start: 02-18-2021 Cervical cancer screen Cervical cancer screen [place] Start: 02-18-2021 Screening for malignant neoplasm of cervix Cervical cancer screen [place] Start: 01-14-2021 Creatinine measurement Creatinine monitoring [place], [place] Start: 01-14-2021 Diabetic foot examination Diabetic foot exam [place] Start: 01-14-2021 HbA1c (Bld) [Mass fraction] A1C test (Diabetic or Prediabetic) [place] Start: 01-14-2021 Lipid panel Lipid screen [place] Start: 01-14-2021 Potassium monitoring Potassium monitoring [place] Start: 01-10-2021 Hepatitis B vaccine (1 of 3 - Risk 3-dose series) Hepatitis B vaccine (1 of 3 - Risk 3-dose series) [place] Comment on above: Postponed from 1986 (Patient Refus ed) Start: 01-10-2021 Pneumococcal 0-64 years Vaccine (1 of 1 - PPSV23) Pneumococcal 0-64 years Vaccine (1 of 1 - PPSV23) [place] Comment on above: Postponed from 1973 (Patient Refus ed) Start: 08-19-2020 End: 08-19-2020 Office Visit 08/19/2020 Office Visit Endocrinology Alverto Orta DO [address] [place] [address] [phone] [facility] Start: 08-13-2020 HbA1c (Bld) [Mass fraction] A1C test (Diabetic or Prediabetic) [place] Start: 07-16-2020 End: 07-16-2020 Office Visit 07/16/2020 Office Visit Family Medicine Gio Ricketts MD [address] [place] [address], [place] [address] [phone] [facility] Start: 07-14-2020 A1C test (Diabetic or Prediabetic) A1C test (Diabetic or Prediabetic) [place] Start: 07-14-2020 Creatinine monitoring Creatinine monitoring [place] Start: 07-14-2020 Potassium monitoring Potassium monitoring [place] Start: 05-13-2020 End: 05-13-2020 Office Visit Endocrinology [place] Start: 04-20-2020 Breast cancer screen Breast cancer screen [place] Start: 04-20-2020 Screening for malignant neoplasm of breast Breast cancer screen [place] Start: 04-13-2020 [object Object] Diabetic foot exam [place] Start: 04-13-2020 Lipid screen Lipid screen [place] Start: 03-12-2020 Influenza vaccination Flu vaccine (#1) [place] Start: 02-11-2020 HIV screen HIV screen [place] Comment on above: Postponed from 1982 (Patient Refus ed) Start: 02-11-2020 HIV screening HIV screen [place] Comment on above: Postponed from 1982 (Patient Refus ed) Start: 02-11-2020 Shingles Vaccine (1 of 2) Shingles Vaccine (1 of 2) [place] Comment on above: Postponed from 2017 (Patient Refus ed) Start: 02-07-2020 End: 02-07-2020 Appointment 02/07/2020 Appointment Radiology Gio Ricketts MD [address] [place] [address], [place] [address] [phone] [facility] Start: 01-15-2020 End: 01-15-2020 Office Visit [facility] Start: 12-24-2019 Hepatitis B vaccine (1 of 3 - Risk 3-dose series) Hepatitis B vaccine (1 of 3 - Risk 3-dose series) [place] Comment on above: Postponed from 1986 (Patient Refus ed) Start: 10-13-2019 Pneumococcal 0-64 years Vaccine (1 of 1 - PPSV23) Pneumococcal 0-64 years Vaccine (1 of 1 - PPSV23) [place] Comment on above: Postponed from 1973 (Patient Refus ed) Start: 2017 Shingles Vaccine (1 of 2) Shingles Vaccine (1 of 2) [place] Start: 2017 Zoster Vaccines (1 of 2) Zoster Vaccines (1 of 2) [facility] Start: 1997 Screening for malignant neoplasm of cervix [facility] Start: 1988 Screening for malignant neoplasm of cervix Pap Smear [facility] Start: 1986 Hepatitis A Vaccines (1 of 2 - Risk 2-dose series) Hepatitis A Vaccines (1 of 2 - Risk 2-dose series) [facility] Start: 1986 Hepatitis B Vaccines (1 of 3 - 19+ 3-dose series) Hepatitis B Vaccines (1 of 3 - 19+ 3-dose series) [facility] Start: 1986 Pneumococcal Vaccine: 50+ Years (1 of 2 - PCV) Pneumococcal Vaccine: 50+ Years (1 of 2 - PCV) [facility] Start: 1985 Hepatitis C screening Hepatitis C Screening [facility] Start: 1982 HIV screening HIV screen [place], [place] Start: 1979 Depresssion Monitoring Depresssion Monitoring [facility] Start: 1977 Diabetic foot examination Diabetes: Foot Exam [facility] Start: 1977 Glaucoma screening Diabetes: Retinopathy Screening [facility] Start: 1977 Preventive dental service Diabetes: Dental Exam [facility] Start: 1973 Pneumococcal Vaccine: Pediatrics (0 to 5 Years) and At-Risk Patients (6 to 64 Years) (1 - PCV) Pneumococcal Vaccine: Pediatrics (0 to 5 Years) and At-Risk Patients (6 to 64 Years) (1 - PCV) [facility] Start: 1973 Pneumococcal Vaccine: Pediatrics (0 to 5 Years) and At-Risk Patients (6 to 64 Years) (1 of 2 - PCV) Pneumococcal Vaccine: Pediatrics (0 to 5 Years) and At-Risk Patients (6 to 64 Years) (1 of 2 - PCV) [facility] Start: 1968 MMR Vaccines (1 of 1 - Standard series) MMR Vaccines (1 of 1 - Standard series) [facility] Start: 1967 Hepatitis B Vaccines (1 of 3 - 3-dose series) Hepatitis B Vaccines (1 of 3 - 3-dose series) [facility] Start: 1967 HIV screening HIV Screening [facility] Start: 1967 Screening for malignant neoplasm of colon [facility] Copper, serum Copper, serum La b Routine Pancytopenia (HCC) 09/30/2023 8:27 AM EDT [facility] ECG 12 lead ECG 12 lead CV E CG STAT 02/13/2023 7:54 PM EDT [facility] Work Phone: EKG 12 Lead - Chest Pain EKG 12 Lead - Chest Pain ECG STAT 04/04/2020 3:37 PM EDT [facility] [place], [place] IgG, IgA, IgM IgG, IgA, IgM La b Routine Pancytopenia (HCC) Ordered: 09/22/2023 [facility] Comment on above: Ordered: 09/22/2023 Immunofixation Electrophoresis Immunofixation Electrophoresis Lab Routine Pancytopenia (HCC) Ordered: 09/22/2023 [facility] Comment on above: Ordered: 09/22/2023 Immunofixation Electrophoresis Immunofixation Electrophoresis Lab Routine Pancytopenia (HCC) 09/30/2023 8:27 AM EDT [facility] Methylmalonate [Moles/volume] in Serum or Plasma Methylmalonic acid, serum Lab Routine Pancytopenia (HCC) 09/30/2023 8:27 AM EDT [facility] OUTSIDE PROCEDURE SCAN OUTSIDE P ROCEDURE SCAN Procedures Ordered: 09/29/2023 [facility] Comment on above: Ordered: 09/29/2023 Patient Education ED Chest Pain, Uncertain Cause [facility] Work Phone: Patient referral [facility] Work Phone: Protein [Mass/volume ] in Serum or Plasma Protein, total Lab Routine Pancytopenia (HCC) Ordered: 09/22/2023 [facility] Comment on above: Ordered: 09/22/2023 Protein, Total and Protein Electrophoresis Protein, Total and Protein Electrophoresis Lab Routine Pancytopenia (HCC) 09/30/2023 8:27 AM EDT [facility] Serum Electrophoresis Serum Elec trophoresis Lab Routine Pancytopenia (HCC) Ordered: 09/22/2023 [facility] Comment on above: Ordered: 09/22/2023 End: 12-19-2024 Tissue exam [facility] [employer] Work Phone: Comment on above: Once (Lab) for 1 Occurrences starting until 12/19/2024 End: 09-30-2023 US Abdomen [facility] Comment on above: Once for 1 Occurrences starting 09/30/19 24 until 09/30/2023 Immunizations Immunization Date Immunization Notes Care Provider [facility] 05-21-2022 influenza, injectabl e, quadrivalent, preservative free Kassi Seymour DIRECTOR OF BUSINESS SERVICES - LINE WORKER Work Phone: [facility] 05-21-2022 influenza virus vaccine, unspecified formulation Gio Ricketts MD Work Phone: [facility] 11-06-2021 Covid-19, Pfizer Gra y Top, Do Not Dilute, (Age 12 Y+), Im, L Kassi Seymour DIRECTOR OF BUSINESS SERVICES - LINE WORKER Work Phone: [facility] 06-30-2021 Covid (Pfizer) [facility] Work Phone: 06-09-2021 Covid (Pfizer) [facility] Work Phone: 04-25-2021 influenza, injectabl e, quadrivalent, preservative free Kassi Bridenthal DIRECTOR OF BUSINESS SERVICES - LINE WORKER Work Phone: [facility] 04-08-2020 influenza, injectabl e, quadrivalent, contains preservative [facility] 07-14-2019 influenza, injectabl e, quadrivalent, contains preservative [facility] 04-13-2018 influenza virus vaccine, unspecified formulation [facility] 04-16-2017 influenza virus vaccine, unspecified formulation [facility] 05-06-2016 Influenza Vaccine, unspecified formulation [facility] [place] 05-06-2016 influenza, seasonal, injectable Kassi Bridenthal DIRECTOR OF BUSINESS SERVICES - LINE WORKER Work Phone: [facility] 04-19-2016 tetanus toxoid, reduced diphtheria toxoid, and acellular pertussis vaccine, adsorbed [facility], [place] 04-20-2015 influenza virus vaccine, whole virus [facility] 04-19-2014 influenza virus vaccine, unspecified formulation [facility] Payers Date Payer Category Payer Self-pay [id number] 2023 [facility] [place] [facility] [id number] 2023 Unknown [id number] [address] [facility] [id number] 2023 Unknown 2022 Medicaid [employer] [id number] 2022-Present [phone] [address] [place] [address] Medicaid HMO [id number] 2020 Unknown [id number] 2018 Private Health Insurance [facility] PL[facility] xxxxxxxxx 2018-Present [phone] [address] [place] [address] xxxxxxxxx [id number] 2018 Private Health Insurance [facility] PL[facility] [id number] 2018-Present [phone] [address] [place] [address] [id number] 2018 Private Health Insurance [id number] 1967 Unknown [id number] .[id number]. 668 Unknown [facility] [id number] Unknown [id number] 2.16.840.1.222102.3.579.2. 462 Unknown [id number] .[id number]. 462 Unknown [id number] .840.1.229717.3.579.2. 462 Unknown [id number] 2.16.840.1.990946.3.579.2. 462 Unknown [id number] 2.16.840.1.401282.3.579.2. 462 Unknown [id number] 2.16.840.1.393826.3.579.2. 462 Unknown [id number] 2.16.840.1.167516.3.579.2. 462 Unknown [id number] 2.16840.1.744155.3.579.2. 462 Unknown [id number] 2.16840.1.228266.3.579.2. 462 Unknown [id number] 2.840.1.171227.3.579.2. 462 Unknown [id number] 2.840.1.112618.3.579.2. 462 Unknown [id number] 2.840.1.400327.3.579.2. 462 Unknown [id number] 2.840.1.950011.3.579.2. 462 Unknown [id number] 2.840.1.340781.3.579.2. 462 Unknown [id number] 2.840.1.870105.3.579.2. 462 Unknown [id number] 2.840.1.557937.3.579.2. 462 Unknown [id number] 2.840.1.391413.3.579.2. 462 Unknown [id number] 2.840.1.235804.3.579.2. 462 Unknown [id number] 2.840.1.895086.3.579.2. 462 Unknown [id number] 2.840.1.992506.3.579.2. 462 Unknown [id number] 2.840.1.454551.3.579.2. 462 Social History Date Type Detail Facility Start: 08-08-2019 End: 08-01-2024 Tobacco smoking status NHIS Former smoker [facility] End: 09-01-2013 [facility] Start: 08-08-2019 End: 01-06-2025 Cigarettes smoked current (pack per day) - Reported [facility] Start: 08-08-2019 Alcohol intake Current non-drinker of alcohol (finding) [place], [place] Start: 1965 Sex Assigned At Female [place] Exposure to SARS-CoV -2 (event) Unable to assess [place] Start: 01-15-2020 End: 08-01-2024 Tobacco use and exposure Never used [facility] Start: 01-15-2020 End: 01-09-2025 [facility] Start: 01-11-2020 End: 12-07-2022 History SDOH Alcohol Frequency 1 [place] Start: 01-11-2020 History SDOH Financial 5 [place] Start: 01-11-2020 History SDOH Transport Med 2 [place] Start: 11-27-2022 End: 03-15-2023 Exposure to SARS-CoV-2 (event) Not sure [place] Exposure to SARS-CoV -2 (event) Yes [place] Start: 06-05-2021 End: 04-08-2022 Tobacco smoking status PAIS Unknown if ever smoked [facility] Work Phone: Start: 08-06-2020 Cigarettes;Cigars [facility] Work Phone: End: 09-01-2013 History of tobacco use Cigarette Smoker [facility] Start: 12-07-2022 History SDOH Alcohol Std Drinks 0 [facility] Start: 12-07-2022 End: 01-06-2025 Alcohol Use Disorder Identification Test - Consumption [AUDIT-C] [facility] How often to you hav e a drink containing alcohol? Never [facility] How many standard dr inks containing alcohol do you have on a typical day? Patient does not drink [facility] How hard is it for y ou [...] use as directed three times a day [id number] Start: 08-31-2019 1 each by Does n ot apply route 2 times daily (before meals) [id number] Start: 08-08-2018 1 each by Does n ot apply route 4 times daily [id number] Start: 10-18-2017 1 each by In Vit ro route 4 times daily [id number] Start: 05-17-2020 Unifine Pentips 31G X 8 MM misc [id number] Start: 10-20-2022 End: 08-26-2023 Use as directed with insulin pen [id number] Start: 08-26-2023 End: 05-28-2024 Use as directed with insulin pen [id number] Start: 05-29-2024 End: 08-02-2024 Use as directed with insulin pen [id number] Start: 08-02-2024 Goals Date Patient Goal Desired [...] Facility 01-09-2025 Total score [AUDIT-C] 0 01/10/20 25 6:54 PM EDT Purnima Holloway, RN [facility] Mental Status Date Assessment Result Facility 03-06-2022 Cognitive function Awake;Alert [facility] Work Phone: Clinical Notes 12-07-2022 to 01-14-2025 Telephone Encounter - NICOLE Easley CNP - 01/14/2025 11:53 AM EDTTelephone Encounter - NICOLE Easley CNP - 01/14/2025 11:53 AM EDTDischarge InstructionsAttachmentsAttachments Note Date & Type Note Facility 01-14-2025 Telephone encounter Note Reviewed chart. Refill appropriate. RX sent. [facility] 01-14-2025 Miscellaneous Notes Reviewed chart. Refill appropriate. RX sent. documented in this encounter [facility] 01-09-2025 Emergency department Note EMERGENCY DEPARTMENT ENCOUNTER [...] ML BY MOUTH ONCE DAILY CONTINUOUS GLUCOSE MUCKER COFFERDAM (FREESTYLE ADIEL 3 READER) DEVICE Check blood [...] 2 times daily (with meals). NYSTATIN (MYCOSTATIN) 068451 UNIT/GM POWDER Apply topically 2 times daily. ONDANSETRON (ZOFRAN) 4 MG TABLET Take 4 mg by mouth every 6 hours as needed for nausea or vomiting. PANTOPRAZOLE (PROTONIX) 40 MG EC TABLET Take 40 mg by mouth every morning (before breakfast). PEG [id number]-NACL-NASULF (PEG-3350/ELECTROLYTES) 236 G RECONSTITUTED SOLUTION DRINK 240 [...] Physician EKG interpretation can be found in [facility] RADIOLOGY (Per Emergency Physician): Interpretation per the [...] PM PATIENT REFERRED TO: Gio Ricketts MD [address] [place] [address], [address] [facility] [address] Schedule an appointment as soon as possible [...] provider for clarification.) Clayton Doe APRN - LINE WORKER (electronically signed) Emergency Medicine Provider [1] Past [...] Father prostate High Blood Pressure Father Other ([id number]) Sister TBI Depression Mother Substance Abuse Brother Heart disease Mother Other ([id number]) Mother Depression Brother [4] Social History Socioeconomic [...] 0 min Stress: Stress Concern Present (01/06/2025) [employer] - Occupational Stress Questionnaire Feeling of Stress : Very much Social Connections: Moderately Integrated (01/06/2025) Social Connection and Isolation Panel [NHANES] Frequency of Communication with Friends and Family: Once a week Frequency of Social Gatherings with Friends and Family: Once a week Attends Anabaptism Services: More than 4 times per year [...] Austin CNP 01/09/252219 documented in this encounter [facility] 01-09-2025 Physician Emergency department Note EMERGENCY DEPARTMENT [...] ML BY MOUTH ONCE DAILY CONTINUOUS GLUCOSE MUCKER COFFERDAM (FREESTYLE ADIEL 3 READER) DEVICE Check blood [...] 2 times daily (with meals). NYSTATIN (MYCOSTATIN) 731658 UNIT/GM POWDER Apply topically 2 times daily. ONDANSETRON (ZOFRAN) 4 MG TABLET Take 4 mg by mouth every 6 hours as needed for nausea or vomiting. PANTOPRAZOLE (PROTONIX) 40 MG EC TABLET Take 40 mg by mouth every morning (before breakfast). PEG 7636-LQP-HRDAE-NACL-NASULF (PEG-3350/ELECTROLYTES) 236 G RECONSTITUTED SOLUTION DRINK 240 [...] 1.651 m (5' 5) Diagnoses as of 01/09/25 2220 Fall, initial encounter Acute midline low back [...] PM PATIENT REFERRED TO: Gio Ricketts MD [address] [place] [address], [address] [facility] [phone] Schedule an appointment as soon as possible [...] provider for clarification.) Clayton Doe APRN - LINE WORKER (electronically signed) Emergency Medicine Provider [1] Past [...] Father prostate High Blood Pressure Father Other ([id number]) Sister TBI Depression Mother Substance Abuse Brother Heart disease Mother Other ([id number]) Mother Depression Brother [4] Social History Socioeconomic [...] 0 min Stress: Stress Concern Present (01/06/2025) [employer] - Occupational Stress Questionnaire Feeling of Stress : Very much Social Connections: Moderately Integrated (01/06/2025) Social Connection and Isolation Panel [NHANES] Frequency of Communication with Friends and Family: Once a week Frequency of Social Gatherings with Friends and Family: Once a week Attends Anabaptism Services: More than 4 times per year [...] Last Year: Patient declined NICOLE Austin CNP 01/09/250 [facility] 01-09-2025 Hospital Discharge instructions Ray Espitia MD - 01/09/2025 2:34 AM EDT Laboratory work demonstrates dehydration. Please drink plenty of fluids. Liver studies are essentially within normal limits. Follow-up with your physician later this week. The following attachments cannot be sent through Care Everywhere.Dehydration Discharge Instructions, Adult (Lao)documented in this encounter [facility] 01-08-2025 Emergency department Note EMERGENCY DEPARTMENT ENCOUNTER [...] states that she has been referred to [facility] for this. She does not have an [...] ML BY MOUTH ONCE DAILY CONTINUOUS GLUCOSE MUCKER COFFERDAM (FREESTYLE ADIEL 3 READER) DEVICE Check blood [...] 2 times daily (with meals). NYSTATIN (MYCOSTATIN) 606897 UNIT/GM POWDER Apply topically 2 times daily. ONDANSETRON (ZOFRAN) 4 MG TABLET Take 4 mg by mouth every 6 hours as needed for nausea or vomiting. PANTOPRAZOLE (PROTONIX) 40 MG EC TABLET Take 40 mg by mouth every morning (before breakfast). PEG 9935-TEH-CDWJM-NACL-NASULF (PEG-3350/ELECTROLYTES) 236 G RECONSTITUTED SOLUTION DRINK 240 [...] is no evidence of an ST elevation AL. LABS: Labs Reviewed CBC WITH AUTO DIFFERENTIAL [...] (1,000 mL IntraVENous New Bag 01/09/25 0221) I Ray Espitia MD am the educational speech language clinician of record. PROCEDURES: Unless otherwise noted below, [...] AM PATIENT REFERRED TO: Gio Ricketts MD [address] [place] [address], [address] [facility] [id number] In 2 days DISCHARGE MEDICATIONS: New Prescriptions [...] Father prostate High Blood Pressure Father Other ([id number]) Sister TBI Depression Mother Substance Abuse Brother Heart disease Mother Other ([id number]) Mother Depression Brother [4] Social History Socioeconomic [...] 0 min Stress: Stress Concern Present (01/06/2025) [employer] - Occupational Stress Questionnaire Feeling of Stress : Very much Social Connections: Moderately Integrated (01/06/2025) Social Connection and Isolation Panel [NHANES] Frequency of Communication with Friends and Family: Once a week Frequency of Social Gatherings with Friends and Family: Once a week Attends Anabaptism Services: More than 4 times per year [...] MD 01/09/25 0236 documented in this encounter [facility] 01-08-2025 Physician Emergency department Note EMERGENCY DEPARTMENT [...] states that she has been referred to [facility] for this. She does not have an [...] ML BY MOUTH ONCE DAILY CONTINUOUS GLUCOSE MUCKER COFFERDAM (FREESTYLE ADIEL 3 READER) DEVICE Check blood [...] 2 times daily (with meals). NYSTATIN (MYCOSTATIN) 663760 UNIT/GM POWDER Apply topically 2 times daily. ONDANSETRON (ZOFRAN) 4 MG TABLET Take 4 mg by mouth every 6 hours as needed for nausea or vomiting. PANTOPRAZOLE (PROTONIX) 40 MG EC TABLET Take 40 mg by mouth every morning (before breakfast). PEG 6326-TIG-TVKRV-NACL-NASULF (PEG-3350/ELECTROLYTES) 236 G RECONSTITUTED SOLUTION DRINK 240 [...] is no evidence of an ST elevation AL. LABS: Labs Reviewed CBC WITH AUTO DIFFERENTIAL [...] (1,000 mL IntraVENous New Bag 01/09/25 0221) I Ray Espitia MD am the educational speech language clinician of record. PROCEDURES: Unless otherwise noted below, [...] AM PATIENT REFERRED TO: Gio Ricketts MD [address] [place] [address], [address] [facility] [phone] In 2 days DISCHARGE MEDICATIONS: New Prescriptions [...] Father prostate High Blood Pressure Father Other ([id number]) Sister TBI Depression Mother Substance Abuse Brother Heart disease Mother Other ([id number]) Mother Depression Brother [4] Social History Socioeconomic [...] 0 min Stress: Stress Concern Present (01/06/2025) [employer] - Occupational Stress Questionnaire Feeling of Stress : Very much Social Connections: Moderately Integrated (01/06/2025) Social Connection and Isolation Panel [NHANES] Frequency of Communication with Friends and Family: Once a week Frequency of Social Gatherings with Friends and Family: Once a week Attends Anabaptism Services: More than 4 times per year [...] Patient declined Ray Espitia MD 01/09/25 0236 [employer] [facility] 01-01-2025 Telephone encounter Note Noted. Thank you. [employer] [facility] 01-01-2025 Miscellaneous Notes Noted. Thank you. Patient is calling because she has had 2 nosebleeds recently. She is prescribed Eliquis 2.5 mg twice daily by Dr. Castro, her GI physician in [place]. I advised her to call him for [...] Protocols used: Information Only Call - No [id number] documented in this encounter [facility] 12-31-2024 Telephone encounter Note Patient is calling because she has had 2 nosebleeds recently. She is prescribed Eliquis 2.5 mg twice daily by Dr. Castro, her GI physician in [place]. I advised her to call him for [...] Protocols used: Information Only Call - No [id number] [facility] 12-25-2024 Telephone encounter Note Reviewed chart. Refill appropriate. RX sent. [facility] 12-25-2024 Miscellaneous Notes Reviewed chart. Refill appropriate. RX sent. Prescription Request: Last medication check: 10/24/2024 Last physical exam: none Next scheduled appointment: 01/09/2025 Last date of refill on this medication: 10/24/2024 *Has never had a physical, changed appointment on 01/09 to a Physical.* documented in this encounter [facility] 12-25-2024 Telephone encounter Note Prescription Request: Last medication check: 10/24/2024 Last physical exam: none Next scheduled appointment: 01/09/2025 Last date of refill on this medication: 10/24/2024 *Has never had a physical, changed appointment on 01/09 to a Physical.* [facility] 12-23-2024 Hospital Discharge instructions Annalisa Jeter PA-C [...] change or worsen. documented in this encounter [facility] 12-19-2024 Hospital Discharge instructions Amber Holley DO - 12/19/2024 7:30 PM EDT Return sooner for any signs of bleeding or infection such as redness, warmth or drainage, fevers or chills. The following attachments cannot be sent through Care Everywhere.Skin Tags (Acrochordon) (Lao)documented in this encounter [facility] 12-19-2024 Emergency department Note Pt presents to er from home for skin tag under her left breast.pt states there is skin missing, its preston, red and seeping. [facility] 12-19-2024 Emergency department Note Pt presents to [...] MOUTH ONCE DAILY, Historical Med Continuous Glucose Pt Sitter (FreeStyle Adiel 3 [place]) device Check blood sugar 2-4 times daily., Normal Continuous Glucose Sensor (FreeStyle Adiel 3 Sensor) misc every 14 (fourteen) days., Starting Wed12/11/2024, Normal Cyanocobalamin (B-12 Compliance Injection) 1000 MCG/ML kit Inject 1 ml (1000mcg) subcutaneous weekly x 4 then monthly, Normal glimepiride (Amaryl) 4 MG tablet Take 1 tablet (4 mg) by mouth daily (with breakfast)., Starting Wed10/31/2024, Normal HYDROcodone-acetaminophen ([place]) 5-325 MG tablet TAKE 1 TABLET BY [...] (with meals)., Starting Wed10/31/2024, Normal nystatin (Mycostatin) 108608 UNIT/GM powder Apply topically 2 times daily., [...] Physician EKG interpretation can be found in [facility] RADIOLOGY (Per Emergency Physician): Interpretation per the [...] [BM] ED Course User Index [BM] Amber Kishan, DO Diagnoses as of 12/19/242000 Skin tag [...] documented as signed by this procedure note Global Sourcing Manager(s): N/A No supervision required Medications lidocaine-EPINEPHrine (Xylocaine W/EPI) 1 %-1:081114 injection 10 mL (10 mL Infiltration Given by Other 12/19/241923) REVAL: CRITICAL CARE TIME FINAL IMPRESSION 1. Skin tag 2. S/P skin biopsy DISPOSITION Discharge 12/19/2024 07:29:51 PM PATIENT REFERRED TO: Gio Ricketts MD [address] [place] [address], [facility] [address] [facility] [phone] In 1 week For suture removal [facility] ED [address] [place] [phone] In 1 week For suture removal [...] Father prostate High Blood Pressure Father Other ([id number]) Sister TBI Depression Mother Substance Abuse Brother Heart disease Mother Other ([id number]) Mother Depression Brother [4] Social History Socioeconomic [...] Last Year: No Amber Holley DO 12/19/242000 Pt presents to er from home for skin tag under her left breast.pt states there is skin missing, its preston, red and seeping. Pt presents to er from home for skin tag under her left breast.pt states there is skin missing, its preston, red and seeping. documented in this encounter [facility] 12-19-2024 Emergency department Triage note Pt presents to er from home for skin tag under her left breast.pt states there is skin missing, its preston, red and seeping. [facility] 12-19-2024 Physician Emergency department Note Associated Order(s): [...] MOUTH ONCE DAILY, Historical Med Continuous Glucose Pt Sitter (FreeStyle Adiel 3 [place]) device Check blood sugar 2-4 times daily., Normal Continuous Glucose Sensor (FreeStyle Adiel 3 Sensor) misc every 14 (fourteen) days., Starting Wed12/11/2024, Normal Cyanocobalamin (B-12 Compliance Injection) 1000 MCG/ML kit Inject 1 ml (1000mcg) subcutaneous weekly x 4 then monthly, Normal glimepiride (Amaryl) 4 MG tablet Take 1 tablet (4 mg) by mouth daily (with breakfast)., Starting Wed10/31/2024, Normal HYDROcodone-acetaminophen ([place]) 5-325 MG tablet TAKE 1 TABLET BY [...] (with meals)., Starting Wed10/31/2024, Normal nystatin (Mycostatin) 089594 UNIT/GM powder Apply topically 2 times daily., [...] [facility] (Per Emergency Physician): Interpretation per the Radiologist below, if available at the time of this note: No orders to display ED BEDSIDE ULTRASOUND: Performed by ED Physician - none LABS: Labs Reviewed TISSUE EXAM All other labs were within normal range or not returned as of this dictation. EMERGENCY DEPARTMENT COURSE and DIFFERENTIAL DIAGNOSIS/MDM: Vitals: Vitals: 12/19/24 1851 12/19/241850 BP: (!) 163/94 BP Location: Right arm [...] documented as signed by this procedure note Global Sourcing Manager(s): N/A No supervision required Medications lidocaine-EPINEPHrine (Xylocaine W/EPI) 1 %-1:873314 injection 10 mL (10 mL Infiltration Given by Other 12/19/24 192) REVAL: CRITICAL CARE TIME FINAL IMPRESSION 1. Skin tag 2. S/P skin biopsy DISPOSITION Discharge 12/19/2024 07:29:51 PM PATIENT REFERRED TO: Gio Ricketts MD [address] [place] [address], [address] [facility] [id number] In 1 week For suture removal [facility] ED [address] [place] [phone] In 1 week For suture removal [...] Father prostate High Blood Pressure Father Other ([id number]) Sister TBI Depression Mother Substance Abuse Brother Heart disease Mother Other ([id number]) Mother Depression Brother [4] Social History Socioeconomic [...] Last Year: No Amber Holley DO 12/19/242000 [facility] 12-18-2024 Note [facility] Medical Records Department [address] [place] [address] History Physical Exam 12/18/24 0654 MR#: [id number] Acct: [id number] Name: MELANIE CAREY Rep #: [id number] : 1965 59 From: Hugo Pierre DO PCP: Dr. Gio Ricketts MD Status:[facility] Location: [place] [address] HPI - General General Date of Admission: [...] previously performed LIVER BX: not previously performed [facility] US 09/30/2023 hepatomegaly with fatty infiltration, splenomegaly, large main portal vein, trace ascites, findings of portal hypertension CT 04/19/2023 Umbilical hernia with ascitic fluid. Cirrhosis. Splenomegaly. Moderate ascites. Paraesophageal varices. Mild retroperitoneal adenopathy. PARA: not previously performed DOPPLER: not previously performed EGD: per patient >5 years ago RECALL COLONOSCOPY - per patient she is due now [facility] Medical History Arthritis Anemia High cholesterol History [...] tirzepatide 5 mg/0.5 (more content not included)... [facility] 10-24-2024 Evaluation + Plan note Associated Problem(s): Pain management Continue with pain management as directed. [facility] 10-24-2024 Miscellaneous Notes Associated Problem(s): Pain management [...] activity as tolerated. documented in this encounter [facility] 10-24-2024 Evaluation + Plan note Associated Problem(s): Vitamin B 12 deficiency Continue b12 injections [facility] 10-24-2024 Evaluation + Plan note Associated Problem(s): Pancytopenia (HCC) Follow-up with hematology as directed. [facility] 10-24-2024 Evaluation + Plan note Associated Problem(s): Major depressive disorder, single episode, unspecified Continue bupropion xl 300 mg and Buspar 10 mg twice daily. Recommend counseling services. [facility] 10-24-2024 Note Continue bupropion x l 300 mg and Buspar 10 mg twice daily. Recommend counseling services. [facility] 10-24-2024 Evaluation + Plan note Associated Problem(s): Diabetic nephropathy associated with type 2 diabetes mellitus (HCC) Stable. Get diabetes under control. Blood pressures are good [facility] 10-24-2024 Evaluation + Plan note Associated Problem(s): Other cirrhosis of liver (HCC) Stable. Follow up with gastroenterology as scheduled [facility] 10-24-2024 Evaluation + Plan note Associated [...] order to get better control of diabetes. [facility] 10-24-2024 Evaluation + Plan note Associated Problem(s): Anxiety Stable. Continue Wellbutrin 300 mg daily, BuSpar 10 mg twice daily. Recommend establishing with counselor [facility] 10-24-2024 Evaluation + Plan note Associated Problem(s): Essential hypertension Controlled. Blood pressure 124/72. Continue labetalol 100 mg twice daily. Has not tolerated CLAUDY inhibitors in the past, consider ARB [facility] 10-24-2024 Evaluation + Plan note Associated Problem(s): Hyperlipidemia LDL goal <70 Controlled. Continue rosuvastatin 5 mg daily [facility] 10-24-2024 Evaluation + Plan note Associated Problem(s): Class 3 severe obesity due to excess calories with serious comorbidity and body mass index (BMI) of 40.0 to 44.9 in adult (HCC) Continue portion control, low carb,low fat, low cholesterol diet. Increase physical activity as tolerated. [employer] 10-24-2024 History of Present illness Narrative Patient [...] 2 diabetes mellitus with hyperglycemia, unspecified whether inspector mechanical insulin use (HCC) - insulin glargine (Lantus [...] of 40.0 to 44.9 in adult ([facility]) Assessment & Plan: Continue portion control, low carb,low fat, low cholesterol diet. Increase physical activity as tolerated. Follow up for 3 month [facility]. SUBJECTIVE/OBJECTIVE: [facility] - Melanie Carey (: 1965) is a [...] was supposed to start physical therapy at [facility] in [place] but was not able to get it [...] mg) by mouth daily (with breakfast). HYDROcodone-acetaminophen ([place]) 5-325 MG tablet TAKE 1 TABLET BY MOUTH EVERY 6 HOURS NEEDED FOR PAIN FOR 3 DAYS labetalol (Normodyne) 100 MG tablet TAKE 1 TABLET BY MOUTH IN THE MORNING AND 1 TABLET IN THE EVENING. 60 tablet 0 metFORMIN (Glucophage) 1000 MG tablet Take 1 tablet (1,000 mg) by mouth 2 times daily (with meals). 180 tablet 1 nystatin (Mycostatin) 109225 UNIT/GM powder Apply topically 2 times daily. [...] 10/24/2024 10:01 AM documented in this encounter [facility] 10-24-2024 Instructions NICOLE Easley CNP - 10/24/2024 7:20 AM EDT Send daily fasting and 2 hour after meal blood sugar readings every 3 days to me through [facility]. documented in this encounter [facility] 09-27-2024 Emergency department Note Humalog dose verified by doctor zara maddox. Per provider varsha, pt does not need the 24 units of Humalog and verbal orders with read back for 10 units of Humalog were given and verbal orders with read back for 650 mg of tylenol were in. [facility] 09-27-2024 Emergency department Note Humalog dose verified [...] 2 times daily (with meals). NYSTATIN (MYCOSTATIN) 959431 UNIT/GM POWDER Apply topically 2 times daily. [...] Father prostate High Blood Pressure Father Other ([id number]) Sister TBI Depression Mother Substance Abuse Brother Heart disease Mother Other ([id number]) Mother Depression Brother SOCIAL HISTORY Social History [...] nursing note reviewed. Exam conducted with a spa director/finance present. Constitutional: Appearance: Normal appearance. She is [...] acute ST elevation or ST depression however. CO is prolonged although the rest of her [...] (*) Narrative: [facility]formed by: [facility], [address] [place] [address] CLIA ID: [id number] POCT GLUCOSE METER UNSOLICITED RESULTS - Abnormal Glucose 303 (*) Narrative: Performed by: [facility], [address] [place] [address] CLIA ID: [id number] BETA HYDROXYBUTYRATE - Normal BETA HYDROXYBUTYRATE 2.3 MAGNESIUM - Normal MAGNESIUM 1.6 Narrative: Higher values can be expected in females during menses. COMPLETE URINALYSIS WITH REFLEX TO CULTURE Narrative: The following orders were created for panel order Urinalysis complete with reflex to Culture. Procedure Abnormality Status --------- ------ Complete Urinalysis[[id number]] Please view results for these tests on [...] PM PATIENT REFERRED TO: Gio Ricketts MD [address] [place] [id number] Schedule an appointment as soon as possible [...] MD 09/27/24 1800 documented in this encounter [facility] 09-27-2024 Physician Emergency department Note EMERGENCY DEPARTMENT [...] 2 times daily (with meals). NYSTATIN (MYCOSTATIN) 940309 UNIT/GM POWDER Apply topically 2 times daily. [...] Father prostate High Blood Pressure Father Other ([id number]) Sister TBI Depression Mother Substance Abuse Brother Heart disease Mother Other ([id number]) Mother Depression Brother SOCIAL HISTORY Social History [...] nursing note reviewed. Exam conducted with a spa director/finance present. Constitutional: Appearance: Normal appearance. She is [...] acute ST elevation or ST depression however. CO is prolonged although the rest of her [...] Abnormal Glucose >450 (*) Narrative: Performed by: [facility], [address] [place] [address] CLIA ID: [id number] POCT GLUCOSE METER UNSOLICITED RESULTS - Abnormal Glucose 303 (*) Narrative: Performed by: [facility], [address] [place] [id number] CLIA ID: [id number] BETA HYDROXYBUTYRATE - Normal BETA HYDROXYBUTYRATE 2.3 MAGNESIUM - Normal MAGNESIUM 1.6 Narrative: Higher values can be expected in females during menses. COMPLETE URINALYSIS WITH REFLEX TO CULTURE Narrative: The following orders were created for panel order Urinalysis complete with reflex to Culture. Procedure Abnormality Status --------- ------ Complete Urinalysis[[id number]] Please view results for these tests on [...] PM PATIENT REFERRED TO: Gio Ricketts MD [address] [place] [phone] Schedule an appointment as soon as [...] Medicine Provider Jimenez Maddox MD 09/27/24 1800 [facility] 09-27-2024 Telephone encounter Note I messaged her through my chart. [facility] 09-27-2024 Miscellaneous Notes I messaged her through [...] any further recommendations. S: Patient spoke with [facility] nurse regarding elevated blood sugar reading. B: Onset of symptoms started overnight. She did have an injection for pain, in the right hip, on 09/26/24 at [facility]. A: Patient reports she had [...] mmol/L) Protocols used: Diabetes - High Blood [id number] documented in this encounter [facility] 09-27-2024 Telephone encounter Note I will call her this evening after she gets home from work. Thanks. [facility] 09-27-2024 Telephone encounter Note Patient called back [...] further instruction. Monitor for low blood sugars. [facility] 09-27-2024 Telephone encounter Note Patient current [...] will call her with any further recommendations. [facility] 09-27-2024 Telephone encounter Note S: Patient spoke with [facility] nurse regarding elevated blood sugar reading. B: Onset of symptoms started overnight. She did have an injection for pain, in the right hip, on 09/26/24 at [facility]. A: Patient reports she had [...] triage, via phone, with Kassi Seymour APRN, CNP. Provider would like patient to check her [...] mmol/L) Protocols used: Diabetes - High Blood Szewc-BSUKE-EV [facility] 09-20-2024 Telephone encounter Note Reviewed chart. Refill appropriate. RX sent. [facility] 09-20-2024 Miscellaneous Notes Reviewed chart. Refill appropriate. RX sent. Prescription Request: Last medication check: 08-01-24 Last physical exam: 08-26-23 Next scheduled appointment: 10-24-24 Last date of refill on this medication 08-02-24 documented in this encounter [facility] 09-20-2024 Telephone encounter Note Prescription Request: Last medication check: 08-01-24 Last physical exam: 08-26-23 Next scheduled appointment: 10-24-24 Last date of refill on this medication 08-02-24 [facility] 08-25-2024 History of Present illness Narrative Images [...] stated that they are currently in the [facility]. If the patient is a minor, [...] 08/25/2024 2:03 PM documented in this encounter [facility] 08-02-2024 Telephone encounter Note ----- Message from [...] you to know she was able to pharmacy picking technician the Mounjaro. [facility] 08-02-2024 Miscellaneous Notes ----- Message from NICOLE [...] you to know she was able to pharmacy picking technician the Mounjaro. documented in this encounter [facility] 08-01-2024 Evaluation + Plan note Associated Problem(s): Financial difficulty Patient reports difficulty meeting monthly rent due to recent hospitalizations of her significant other. Patient states she is okay with licensed plumber reaching out to her to provide potential resources. [facility] [employer] 08-01-2024 Miscellaneous Notes Associated Problem(s): Financial difficulty [...] needed as directed. documented in this encounter [facility] 08-01-2024 Evaluation + Plan note Associated Problem(s): Anxiety Stable. Continue Wellbutrin 300 mg daily, BuSpar 10 mg twice daily. Recommend establishing with counselor [facility] 08-01-2024 Evaluation + Plan note Associated Problem(s): Hyperlipidemia LDL goal <70 Check lipids today, currently not on statin. [facility] 08-01-2024 Evaluation + Plan note Associated Problem(s): Essential hypertension Controlled. Blood pressure 137/81. Continue labetalol 100 mg twice daily. Has not tolerated CLAUDY inhibitors in the past, consider ARB [facility] 08-01-2024 Evaluation + Plan note Associated Problem(s): Type 2 diabetes with nephropathy (HCC) Control unknown. Obtain hemoglobin A1c, cmp today. Continue metformin 1000 mg twice daily, glimepiride 2 mg daily and start Mounjaro 2.5 mg weekly. Patient to send provider with update when she starts the Mounjaro and provide glucose readings fasting and 2 hours postmeal in 2 weeks. [facility] 08-01-2024 Evaluation + Plan note Associated Problem(s): Obstructive sleep apnea syndrome Uncontrolled. Does not have CPAP- will need re-evaluation [facility] 08-01-2024 Evaluation + Plan note Associated Problem(s): Low platelet count (HCC) Check platelets. Established with hematology- but has not seen them in awhile d/t financial concerns [facility] [employer] 08-01-2024 Evaluation + Plan note Associated Problem(s): Other cirrhosis of liver (HCC) Stable. Consider obtaining labs to evaluate fibrosis score. Will review chart further to see if this has been completed yet. She was briefly seeing gastroenterology. [employer] 08-01-2024 Evaluation + Plan note Associated Problem(s): Class 3 severe obesity due to excess calories with serious comorbidity and body mass index (BMI) of 40.0 to 44.9 in adult (HCC) Continue portion control, low carb,low fat, low cholesterol diet. Has had about 30 lbs weight loss since 11/2023. Increase physical activity as tolerated. [employer] [facility] 08-01-2024 Evaluation + Plan note Associated Problem(s): Vitamin B 12 deficiency Last b12 level low, has not been taking b12, Restart vit b 12 injections. Will plan on checking B12 level at next visit. [facility] [employer] 08-01-2024 Evaluation + Plan note Associated Problem(s): Major depressive disorder, single episode, unspecified Currently with increased symptoms d/t increased life stress/financial concerns. Denies si/hi. Continue bupropion xl 300 mg and Buspar 10 mg twice daily. Recommend counseling services. [employer] 08-01-2024 Evaluation + Plan note Associated Problem(s): Chronic obstructive pulmonary disease (HCC) Controlled. Denies any increased shortness of breath or cough. Continue albuterol as needed as directed. [employer] 08-01-2024 History of Present illness Narrative Patient was identified by name and Date of . Health Maintenance Due Topic Diabetes: Retinopathy Screening-needs completed Pneumococcal Vaccine-declined Cervical Cancer Screening-declined Colorectal Cancer Screening-declined Diabetes: Urine Qbmqofp-Fepcfsjlxb-ceatpy Mammogram-pended Diabetes: Foot Exam-pended Depression Monitoring-NEEDS DONE Influenza Vaccine-had completed Images from the original note were not included. 08/01/2024 Melanie Carey (: 1965) is a 59 y.o. female , Established patient, here for evaluation of the following chief complaint(s): Diabetes and Health Maintenance (Diabetes: Retinopathy Screening-needs completed/Pneumococcal Vaccine-declined/Cervical Cancer Screening-declined/Colorectal Cancer Screening-declined/Diabetes: Urine Lklrstg-Gwdsirwuln-bldquh/Mammogra m-pended/Diabetes: Foot Exam-pended/Depression Monitoring-NEEDS DONE/Influenza Vaccine-had completed/) [...] have CPAP- will need re-evaluation 6. Pancytopenia ([facility]) - CBC - Cyanocobalamin (B-12 Compliance Injection) 1000 MCG/ML kit; Inject 1 ml (1000mcg) subcutaneous weekly x 4 then monthly, Normal 7. Encounter for screening mammogram for malignant neoplasm of breast - Bilateral screening mammogram with tomosynthesis 8. Type 2 diabetes mellitus with hyperglycemia, unspecified whether senior living insulin use ([facility]) - glimepiride (Amaryl) 2 MG tablet; Take 1 tablet (2 mg) by mouth daily (with breakfast)., Starting Wed08/01/2024, Normal 9. Other cirrhosis of liver ([facility]) Assessment & Plan: Stable. Consider obtaining labs to evaluate fibrosis score. Will review chart further to see if this has been completed yet. She was briefly seeing gastroenterology. 10. Chronic bronchitis, unspecified chronic bronchitis type ([facility]) Assessment & Plan: Controlled. Denies any increased shortness of breath or cough. Continue albuterol as needed as directed. 11. Current mild episode of major depressive disorder without prior episode ([facility]) Assessment & Plan: Currently with increased symptoms d/t increased life stress/financial concerns. Denies si/hi. Continue bupropion xl 300 mg and Buspar 10 mg twice daily. Recommend counseling services. 12. Class 3 severe obesity due to excess calories with serious comorbidity and body mass index (BMI) of 40.0 to 44.9 in adult ([facility]) Assessment & Plan: Continue portion control, low [...] 3 months (around 10/30/2024) for 3 month [facility]. SUBJECTIVE/OBJECTIVE: HPI - Melanie Carey (: 1965) is a 59 y.o. female , Established patient, here for the evaluation of the following chief complaint(s): Diabetes and Health Maintenance (Diabetes: Retinopathy Screening-needs completed/Pneumococcal Vaccine-declined/Cervical Cancer Screening-declined/Colorectal Cancer Screening-declined/Diabetes: Urine Iuqofaj-Cnnydepbpg-rurpbx/Mammogra m-pended/Diabetes: Foot Exam-pended/Depression Monitoring-NEEDS DONE/Influenza Vaccine-had completed/) Diabetes-patient currently does not have CGM. There is issues with her insurance covering it and off. She states she is going to reach out to the [facility] and see if they will be able [...] She was supposed to follow-up with a plastics tooling engineer for further evaluation however patient has not done so Medication Sig Start Date End Date Taking? Authorizing Provider albuterol 108 (90 Base) MCG/ACT inhaler Inhale 1 puff every 6 hours as needed for wheezing or shortness of breath. 08/26/23 Yes Kassi Seymour APRN - [facility] buPROPion XL (Wellbutrin XL) 300 MG 24 hr tablet Take 1 tablet (300 mg) by mouth daily. Do not crush, chew, or split. 03/02/24 Yes Kassi Seymour APRN - [place] busPIRone (Buspar) 10 MG tablet Take 1 [...] 07/19/24 Yes Gio Ricketts MD nystatin (Mycostatin) 111867 UNIT/GM powder Apply topically 2 times daily. [...] Reported on 08/01/2024 10/13/23 Historical Provider, glucagon (Marybeth Travis) 1 MG/0.2ML injection Inject 0.2 mL (1 [...] 08/01/2024 5:10 PM documented in this encounter [facility] 08-01-2024 Instructions NICOLE Easley CNP - 08/01/2024 7:20 AM EST Goals for 2024 Call Hardik regarding CGM (glucose meter) Diabetes under control B12 good- will check in 3 months Sleep study Liver evaluation Let me know when or if you get the mounjaro. Check glucose fasting and 2 hours after meals - send readings through [employer] in 1-2 weeks. The following attachments cannot be sent through Care Everywhere.Neck Stretches (Lao)documented in this encounter [facility] 06-30-2024 History of Present illness Narrative Called and spoke with Raiza. Offered appointment Wednesday next week and declined stating she will be in [place] with her who is getting testing done. [...] distress or disorientation. documented in this encounter [facility] 05-29-2024 Telephone encounter Note Reviewed chart. Refill appropriate. RX sent. [facility] 05-29-2024 Miscellaneous Notes Reviewed chart. Refill appropriate. RX sent. Prescription Request: Last medication check: 11/11/2023 Last physical exam: 08/26/2023 Next scheduled appointment: none Last date of refill on this medication: 08/26/2023 documented in this encounter [facility] 05-29-2024 Telephone encounter Note Prescription Request: Last medication check: 11/11/2023 Last physical exam: 08/26/2023 Next scheduled appointment: none Last date of refill on this medication: 01/03/2024 [facility] 05-29-2024 Miscellaneous Notes Prescription Request: Last medication check: 11/11/2023 Last physical exam: 08/26/2023 Next scheduled appointment: none Last date of refill on this medication: 01/03/2024 documented in this encounter [facility] 05-29-2024 Telephone encounter Note Prescription Request: Last medication check: 11/11/2023 Last physical exam: 08/26/2023 Next scheduled appointment: none Last date of refill on this medication: 08/26/2023 [facility] 03-02-2024 Telephone encounter Note Reviewed chart. Refill appropriate. RX sent. [facility] 03-02-2024 Miscellaneous Notes Reviewed chart. Refill appropriate. RX sent. Prescription Request: Last medication check: 11/11/23 Last physical exam: 08/26/23 Next scheduled appointment: none Last date of refill on this medication 08/26/23 documented in this encounter [facility] 03-02-2024 Telephone encounter Note Prescription Request: Last medication check: 11/11/23 Last physical exam: 08/26/23 Next scheduled appointment: none Last date of refill on this medication 08/26/23 [facility] 02-26-2024 Emergency department Note EMERGENCY DEPARTMENT ENCOUNTER [...] by mouth 2 times daily. CONTINUOUS GLUCOSE MUCKER COFFERDAM (FREESTYLE ADIEL 3 READER) DEVICE 1 Device [...] Father prostate High Blood Pressure Father Other ([id number]) Sister TBI Depression Mother Substance Abuse Brother Heart disease Mother Other ([id number]) Mother Depression Brother SOCIAL HISTORY Social History [...] nursing note reviewed. Exam conducted with a spa director/finance present. Constitutional: General: She is not in [...] with no significant improvement. These have been idtm-ctw-gxfsrjz agents. Patient be discharged home with a [...] PATIENT REFERRED TO: Gio Ricketts MD [address] [place] [address] Schedule an appointment as soon as possible for a visit [facility] [address] [address] If symptoms worsen DISCHARGE MEDICATIONS: New Prescriptions FLUCONAZOLE (DIFLUCAN) 100 MG TABLET Take 1 tablet (100 mg) by mouth daily for 7 days. NYSTATIN (MYCOSTATIN) 595287 UNIT/GM POWDER Apply topically 2 times daily. [...] MD 02/26/24 0826 documented in this encounter [facility] 02-26-2024 Physician Emergency department Note EMERGENCY DEPARTMENT [...] by mouth 2 times daily. CONTINUOUS GLUCOSE MUCKER COFFERDAM (FREESTYLE ADIEL 3 READER) DEVICE 1 Device [...] Father prostate High Blood Pressure Father Other ([id number]) Sister TBI Depression Mother Substance Abuse Brother Heart disease Mother Other ([id number]) Mother Depression Brother SOCIAL HISTORY Social History [...] nursing note reviewed. Exam conducted with a spa director/finance present. Constitutional: General: She is not in [...] with no significant improvement. These have been ylss-aac-hjdyaus agents. Patient be discharged home with a [...] PATIENT REFERRED TO: Gio Ricketts MD [address] [facility] [address] Schedule an appointment as soon as possible for a visit [facility] [address] [address] If symptoms worsen DISCHARGE MEDICATIONS: New Prescriptions FLUCONAZOLE (DIFLUCAN) 100 MG TABLET Take 1 tablet (100 mg) by mouth daily for 7 days. NYSTATIN (MYCOSTATIN) 081370 UNIT/GM POWDER Apply topically 2 times daily. [...] Emergency Medicine Provider Nelson Grady MD 02/26/24825 T [facility] 02-19-2024 Emergency department Note Discharge instructions reviewed with patient. Medications, treatments, and follow up appointments discussed. IV removed. Medications completed. VS stable. All questions answered. Patient verbalized understanding. Kandis Belcher RN 02/19/241924 T [facility] 02-19-2024 Emergency department Note Discharge instructions reviewed with patient. Medications, treatments, and follow up appointments discussed. IV removed. Medications completed. VS stable. All questions answered. Patient verbalized understanding. Kandis Belcher RN 02/19/241924 NIH not needed per provider Tiffany Aggarwal, originally done as baseline. OK to discontinue. Order not found. Provider aware. Kandis Belcher RN 02/19/24 1722 Pt was seen in the ED for [...] easy non labored. Kandis Belcher RN 02/19/24 1925 Patient presents for head and neck pain that started yesterday evening. States she can barely move her neck due to pain. States the last time she had a headache this bad was several years ago when she had COVID. Denies known injury. States she has been taking Tylenol without relief of symptoms. documented in this encounter [facility] 02-19-2024 Hospital Discharge instructions NICOLE Saleh CNP [...] sent through Care Everywhere.Headache Discharge Instructions, Adult (Lao)documented in this encounter [facility] 02-19-2024 Emergency department Note NIH not needed per provider Tiffany Aggarwal, originally done as baseline. OK to discontinue. Order not found. Provider aware. Kandis Belcher RN 02/19/24 1722 [facility] 02-19-2024 Emergency department Note Pt was seen [...] easy non labored. Kandis Belcher RN 02/19/24 1925 [facility] 02-19-2024 Emergency department Triage note Patient presents for head and neck pain that started yesterday evening. States she can barely move her neck due to pain. States the last time she had a headache this bad was several years ago when she had COVID. Denies known injury. States she has been taking Tylenol without relief of symptoms. [facility] 01-03-2024 Telephone encounter Note Reviewed chart. Refill appropriate. RX sent. [facility] 01-03-2024 Miscellaneous Notes Reviewed chart. Refill appropriate. RX sent. Prescription Request: Last medication check: not found Last physical exam: 08/26/2023 Last completed appointment: 11/11/2023 Next scheduled appointment: none Last date of refill on this medication: Buspar: 08/26/2023 w/3 refills Metformin: 10/13/2023 w/3 refills Labetalol: 08/26/2023 w/3 refills documented in this encounter [facility] 01-03-2024 Telephone encounter Note Prescription Request: Last medication check: not found Last physical exam: 08/26/2023 Last completed appointment: 11/11/2023 Next scheduled appointment: none Last date of refill on this medication: Buspar: 08/26/2023 w/3 refills Metformin: 10/13/2023 w/3 refills Labetalol: 08/26/2023 w/3 refills [facility] 12-23-2023 History of Present illness Narrative This [...] the past. Order sent to pharmacy per [facility] guidelines, may require PA documented in this encounter [facility] 12-13-2023 Hospital Discharge instructions Vani Salas PA-C [...] Care Everywhere.Low Blood Sugar Discharge Instructions, Adult (Lao)Low Blood Sugar in People With Diabetes (Lao)documented in this encounter [facility] 12-13-2023 Emergency department Note Emergency Department Encounter [facility] ED Patient: Melanie Carey : 1965 [...] for clarification.) Victorino Akins MD Acute Care [facility] Victorino Akins MD 12/13/231957 Patient endorses recurrent hypoglycemia despite taking glucose tabs. BGC: 80mg/dL in triage. Provided orange juice at this time. documented in this encounter [facility] 12-13-2023 Emergency department Triage note Patient endorses recurrent hypoglycemia despite taking glucose tabs. BGC: 80mg/dL in triage. Provided orange juice at this time. [facility] 12-13-2023 Physician Emergency department Note Emergency Department Encounter [facility] ED Patient: Melanie Carey : 1965 [...] dictating provider for clarification.) Victorino Akins MD [facility] Victorino Akins MD 12/13/231957 [employer] Phone: 12-04-2023 Emergency department Note [facility] ED eMERGENCY dEPARTMENT eNCOUnter Pt Name: [...] the emergency department. Patient presents with a vdhps-fc-lcsa glucose of 133. She got concerned as [...] times daily., Starting Wed08/26/2023, Normal Continuous Glucose Pt Sitter (FreeStyle Adiel 3 [place]) device 1 Device daily., Starting Wed11/16/2023, Normal [...] Father prostate High Blood Pressure Father Other ([id number]) Sister TBI Depression Mother Substance Abuse Brother Heart disease Mother Other ([id number]) Mother Depression Brother SOCIAL HISTORY Social History [...] Value Glucose 133 (*) Narrative: Performed by: [facility], [address] [facility] [address] CLIA ID: [id number] POCT GLUCOSE METER UNSOLICITED RESULTS - Abnormal Glucose 122 (*) Narrative: Performed by: [facility], [address] [facility] [address] CLIA ID: [id number] POCT GLUCOSE METER All other labs were [...] Type 2 diabetes mellitus treated with insulin ([facility] ([facility]): acute illness or injury Patient presents to [...] health: Reformed smoker ED diagnostics included 2 hiyvi-gn-hoca blood glucose test. The first one at 133 and after a period of observation a repeat 122. The patient requested to be discharged home. She states her will keep a close eye on her. She is discharged with home-going instructions on diabetes and hypoglycemia. She is to follow-up with her primary care physician and retail stock clerk. She can return should signs and symptoms [...] Type 2 diabetes mellitus treated with insulin ([facility]) ([facility]) DISPOSITION/PLAN DISPOSITION Discharge 12/04/2023 07:26:20 PM PATIENT REFERRED TO: Gio Ricketts MD [address] [place] [address] [address] [facility] [address] Schedule an appointment as soon as possible for a visit in 3 days DISCHARGE MEDICATIONS: Discharge Medication List as of 12/04/2023 7:27 PM @[facility]([id number]:LAST:1)@ (Please note: Portions of this note were [...] 133 in triage documented in this encounter [facility] 12-04-2023 Emergency department Triage note Patient reports her blood glucose has been running high and then it dropped after insulin. CBG 133 in triage [facility] 12-04-2023 Physician Emergency department Note [facility] ED eMERGENCY dEPARTMENT eNCOUnter Pt Name: [...] the emergency department. Patient presents with a ssjej-iv-kytl glucose of 133. She got concerned as [...] times daily., Starting Wed08/26/2023, Normal Continuous Glucose Pt Sitter (FreeStyle Adiel 3 [place]ray) device 1 Device daily., Starting Wed11/16/2023, Normal [...] Father prostate High Blood Pressure Father Other ([id number]) Sister TBI Depression Mother Substance Abuse Brother Heart disease Mother Other ([id number]) Mother Depression Brother SOCIAL HISTORY Social History [...] Value Glucose 133 (*) Narrative: Performed by: [facility], [address] [facility] [address] CLIA ID: [id number] POCT GLUCOSE METER UNSOLICITED RESULTS - Abnormal Glucose 122 (*) Narrative: Performed by: [facility], [address] [facility] [address] CLIA ID: [id number] POCT GLUCOSE METER All other labs were [...] Type 2 diabetes mellitus treated with insulin ([facility] ([facility]): acute illness or injury Patient presents to [...] health: Reformed smoker ED diagnostics included 2 lffbg-sj-qevf blood glucose test. The first one at 133 and after a period of observation a repeat 122. The patient requested to be discharged home. She states her will keep a close eye on her. She is discharged with home-going instructions on diabetes and hypoglycemia. She is to follow-up with her primary care physician and retail stock clerk. She can return should signs and symptoms [...] Type 2 diabetes mellitus treated with insulin ([facility] [facility] ([facility] DISPOSITION/PLAN DISPOSITION Discharge 12/04/2023 07:26:20 PM PATIENT REFERRED TO: Gio Ricketts MD [address] [place] [address] [facility] [address] Schedule an appointment as soon as possible for a visit in 3 days DISCHARGE MEDICATIONS: Discharge Medication List as of 12/04/2023 7:27 PM @[facility]([id number]:LAST:1)@ (Please note: Portions of this note were completed with a voice recognition program. Efforts were made to edit thedictations but occasionally words and phrases are mis-transcribed.) Form [id number] Jahaira Hankins PA-C (electronically signed) Emergency Medicine Provider Jahaira Hankins PA-C 12/04/232032 Jahaira Hankins PA-C 12/04/232034 [facility] 11-16-2023 History of Present illness Narrative Provider had face to face visit with patient and requests a CGM be sent to pharmacy, chart reviewed and patient has used CGM device in the past. Order sent to pharmacy per [facility] guidelines, may require PA documented in this encounter [facility] 11-11-2023 Evaluation + Plan note Associated Problem(s): Hyponatremia Recheck BMP today [facility] 11-11-2023 Evaluation + Plan note Associated Problem(s): Other cirrhosis of liver (HCC) Follow-up with gastroenterology [facility] 11-11-2023 Miscellaneous Notes Associated Problem(s): Hyponatremia Recheck [...] hematology as directed. documented in this encounter [facility] 11-11-2023 Evaluation + Plan note Associated Problem(s): [...] units. Continue to check glucose before meals [facility] 11-11-2023 Evaluation + Plan note Associated Problem(s): Pancytopenia (HCC) Follow-up with hematology as directed. [facility] 11-11-2023 History of Present illness Narrative Patient [...] as directed with insulin pen 08/26/23 Yes KassiNICOLE Mcdermott CNP predniSONE (Deltasone) 20 MG tablet 10/01/23 [...] 11/11/2023 1:53 PM documented in this encounter [facility] 11-11-2023 Instructions NICOLE Easley CNP - 11/11/2023 7:20 AM EDT Give insulin only before breakfast and dinner U500 20 U before breakfast and 20 U before dinner, if glucose is >200 ok to give 30 U No more than 30 units of the U500 at a time. documented in this encounter [facility] 10-13-2023 Telephone encounter Note Per Dr. Juan, pt to start b12 weekly x4 then monthly. [facility] 10-13-[address] Juan, pt to start b12 weekly x4 then monthly. documented in this encounter [facility] 10-13-2023 History of Present illness Narrative [facility] [place] [address] [facility] [address] [facility] [address] Dept: [phone] Dept Loc: [phone] Patient ID: Raiza Carey is a 58 [...] for pancytopenia . US abdomin completed . [place] the same . Fatigue persisted . Hypoglycemia [...] Father prostate High Blood Pressure Father Other ([id number]) Sister TBI Depression Mother Substance Abuse Brother Heart disease Mother Other ([id number]) Mother Depression Brother Social History Socioeconomic History [...] notes/ancillary test results as well as with [id number]-dzsq patient care, performing a medically appropriate examination, counseling & educating the patient/family/caregiver, ordering applicable medications/tests/procedures and completing required clinical documentation on the day of encounter. documented in this encounter [facility] 10-13-2023 Telephone encounter Note Reviewed chart. Refill appropriate. RX sent. [facility] 10-13-2023 Miscellaneous Notes Reviewed chart. Refill appropriate. RX sent. Prescription Request: Last medication check: not found Last physical exam: 08/26/23 Next scheduled appointment: 11/25/23 Last date of refill on this medication: 08/26/23 documented in this encounter [facility] 10-13-2023 Telephone encounter Note Prescription Request: Last medication check: not found Last physical exam: 08/26/23 Next scheduled appointment: 11/25/23 Last date of refill on this medication: 08/26/23 [facility] 10-12-2023 History of Present illness Narrative Discharged [...] original note were not included. PHYSICAL THERAPY [facility] Name/MRN: Raiza Carey ([id number]) Date: 10/12/2023 PT evaluation orders received and chart review completed. Pt completed OT evaluation this AM and demo mobility independently with no device and completed stairs with no difficulty. Pt has no acute PT needs. Will discharge from caseload. Jennifer Friedman PT Images from the original note were not included. OCCUPATIONAL THERAPY [facility] Initial Evaluation Name/MRN: Raiza Carey ([id number]) Evaluation Date: 10/12/2023 Date of : 1965 [...] 10/31/2018 Type 2 diabetes mellitus with polyneuropathy ([facility]) 10/31/2018 Obstructive sleep apnea syndrome 10/31/2018 Class 3 severe obesity due to excess calories with serious comorbidity and body mass index (BMI) of 50.0 to 59.9 in adult ([facility]) 10/28/2018 Type 2 diabetes with nephropathy ([facility]) 10/28/2018 Anxiety 07/01/2018 Hyponatremia 2018 Gastroesophageal reflux [...] Responsibilities: Independent Receives Help From: None Active Chief Design Drafter: Yes Prior Level of Function ADL Assistance: [...] of Care supervision is transferred to a [facility] Therapy Services Occupational Therapist. Goals and/or treatment plan was established in collaboration with patient/family/other representatives. documented in this encounter [facility] 10-12-2023 Hospital course Narrative Images from the [...] Your Medications These medications were sent to [facility] [address] [place] [id number] HumuLIN R U-500 KWIKPEN 500 UNIT/ML CONCENTRATED injection Recommended Follow-up: No follow-up provider specified. Complexity of Follow up: [] Moderate Complexity: follow up within 7-14 calendar days (05032) [x] Severe Complexity: follow up within 7 calendar days ([id number]) Follow up Testing, Pending results or Referrals [...] MD Division of Hospitalist Medicine Inpatient Medical Services/[facility] 10/12/2023, 10:20 PM documented in this encounter [facility] 10-12-2023 Emergency department Note Pt rounded on at this time. Pt resting in bed. No signs of distress noted. Casandra Donald RN 10/12/23 1447 [facility] 10-12-2023 Emergency department Note Pt rounded on [...] D50 and increase D10 to 150ml/hr. Kati Bekah, RN 10/11/232117 Pt states at breakfast she [...] Father prostate High Blood Pressure Father Other ([id number]) Sister TBI Depression Mother Substance Abuse Brother Heart disease Mother Other ([id number]) Mother Depression Brother SOCIAL HISTORY Social History [...] 9. Best Language: No Aphasia 10. Dysarthria: Apku-lb-Ruxsnxmw Dysarthria 11. Extinction and Inattention: No Abnormality [...] Abnormal Glucose 54 (*) Narrative: Performed by: [facility], [address] [facility] [address] CLIA ID: [id number] POCT GLUCOSE METER UNSOLICITED RESULTS - Abnormal Glucose 129 (*) Narrative: Performed by: [facility], [address] [facility] [address] CLIA ID: [id number] POCT GLUCOSE METER UNSOLICITED RESULTS - Normal Glucose 80 Narrative: Performed by: [facility], [address] [facility] [address] CLIA ID: [id number] CORTISOL POCT GLUCOSE METER POCT GLUCOSE METER POCT GLUCOSE METER All other labs were within normal range or not returned as of this dictation. EMERGENCY DEPARTMENT COURSE and DIFFERENTIAL DIAGNOSIS/MDM: Vitals: Vitals: 10/11/23 2016 10/11/23 2017 10/11/23211810/11/232148 BP: (!) 165/69 135/88 Pulse: 64 Resp: [...] Medicine Provider Jeronimo Calero MD Resident 10/11/23 9992 Pt arrives via [private vehicle for concern for hypoglycemia. states it was 38. BG upon arrival 79. Pt lethargic and responding to pain upon arrival. Not able to respond to questions. Dr Max bedside. Pt clammy and has redness to face upon arrival documented in this encounter [facility] 10-12-2023 Emergency department Note Meal tray ordered for patient at this time. Casandra Donald RN 10/12/23 1224 [facility] 10-12-2023 Emergency department Note Provider at bedside. Casandra Donald RN 10/12/23 1208 [facility] 10-12-2023 Emergency department Note Pt updated on plan of care at this time. Pt resting in bed. No signs of distress noted. Casandra Donald RN 10/12/23 1051 T [facility] 10-12-2023 Emergency department Note This RN offered to place patient in hospital bed at this time. Pt denies hospital bed at this time and states her ER bed is fine for now. Casandra Donald RN 10/12/23 1004 T [facility] 10-12-2023 Emergency department Note PT/ OT at bedside. Casandra Donald RN 10/12/23 0935 T [facility] 10-12-2023 Emergency department Note Pt provided meal tray. Casandra Donald RN 10/12/23 0815 [facility] 10-12-2023 Consult note Associated Order (s): IP CONSULT TO ENDOCRINOLOGY Department of Internal Medicine Division of Endocrinology, Diabetes, & Metabolism Endocrinology Note Patient Name: Melanie Carey : 1965 AGE: 58 y.o. Room/Bed: Admission Date: 10/11/2023 Visit Date: 10/12/2023 Reason for Endocrine Consult: Symptomatic hypoglycemia/on insulin - DM Provider/Team Requesting Consult: Dr. Flannery PCP: Gio Ricketts MD Outpt Military Source Operations Specialist: No ASSESSMENT: Type II DM with [...] CHOLHDLRATIO 4 01/15/2020 No results found for: ITVR51SEV No results found for: TSH, A6KZVXQ, Y1EYIFO, THYROIDAB Radiology reportsas per the Radiologist Radiology: POCT glucose meter Result Date: 10/12/2023 Performed by: [facility], [address] [place] [address] CLIA ID: [id number] ECG 12 lead Sinus rhythm with normal rate, intervals and QRS duration. No acute ischemic changes. Nonspecific INTRAVENTRICULAR CONDUCTION DELAY, similar to prior No acute ischemic changes Similar to previous EKG Electronically Signed On 10-12-2023 04:24:23 EDT by Ray Ortiz POCT glucose meter Result Date: 10/12/2023 Performed by: [facility], [address] [place] [address] CLIA ID: [id number] POCT glucose meter Result Date: 10/12/2023 [facility]formed by: [facility] [place] [facility], [address] [facility] [address] CLIA ID: [id number] POCT glucose meter Result Date: 10/12/2023 [facility]formed by: [facility] [place] [facility], [address] [facility] [address] CLIA ID: [id number] POCT glucose meter Result Date: 10/11/2023 Performed by: [facility] [place] [facility], [address], [facility] [address] CLIA ID: [id number] POCT glucose meter Result Date: 10/11/2023 Performed by: [facility], [facility] [address] [place], [facility] [address] CLIA ID: [id number] POCT glucose meter Result Date: 10/11/2023 Performed by: [facility] [place] [facility], [address] [place] [address] CLIA ID: [id number] CT head wo IV contrast Result Date: 10/11/2023 Patient Name: MELANIE TOVAR : 1965 [facility]#: [id number] Exam Date/Time: 10/11/2023 20:59 Procedure: CT HEAD [...] glucose meter Result Date: 10/11/2023 Performed by: [facility], [address] [facility] [address] CLIA ID: [id number] History/Other: Past Medical History: Past Medical History: [...] Father prostate High Blood Pressure Father Other ([id number]) Sister TBI Depression Mother Substance Abuse Brother Heart disease Mother Other ([id number]) Mother Depression Brother Social History: Social History [...] state/prognosis on the date of this note. [facility] 10-12-2023 Consult note Associated Order (s): IP CONSULT TO ENDOCRINOLOGY Department of Internal Medicine Division of Endocrinology, Diabetes, & Metabolism Endocrinology Note Patient Name: Melanie Carey : 1965 AGE: 58 y.o. Room/Bed: Admission Date: 10/11/2023 Visit Date: 10/12/2023 Reason for Endocrine Consult: Symptomatic hypoglycemia/on insulin - DM Provider/Team Requesting Consult: Dr. Flannery PCP: Gio Ricketts MD Outpt Military Source Operations Specialist: No ASSESSMENT: Type II DM with [...] CHOLHDLRATIO 4 01/15/2020 No results found for: APVT17ALF No results found for: TSH, J7VWBZR, V1PWQYB, THYROIDAB Radiology reportsas per the Radiologist Radiology: POCT glucose meter Result Date: 10/12/2023 Performed by: [facility], [address] [place] [address] CLIA ID: [id number] ECG 12 lead Sinus rhythm with normal rate, intervals and QRS duration. No acute ischemic changes. Nonspecific INTRAVENTRICULAR CONDUCTION DELAY, similar to prior No acute ischemic changes Similar to previous EKG Electronically Signed On 10-12-2023 04:24:23 EDT by Ray Ortiz POCT glucose meter Result Date: 10/12/2023 Performed by: [facility], [address], [place] [address] CLIA ID: [id number] POCT glucose meter Result Date: 10/12/2023 Performed by: [facility], [address], [place] [address] CLIA ID: [id number] POCT glucose meter Result Date: 10/12/2023 Performed by: [facility], [address], [place] [address] CLIA ID: [id number] POCT glucose meter Result Date: 10/11/2023 Performed by: [facility], [address], [place] [address] CLIA ID: [id number] POCT glucose meter Result Date: 10/11/2023 Performed by: [facility], [address] [place] [address], [place] [address] CLIA ID: [id number] POCT glucose meter Result Date: 10/11/2023 Performed by: [facility], [facility] [address], [place] [address] CLIA ID: [id number] CT head wo IV contrast Result Date: 10/11/2023 Patient Name: MELANIE TOVAR : 1965 [facility]#: [id number] Exam Date/Time: 10/11/2023 20:59 Procedure: CT HEAD [...] Result Date: 10/11/2023 Performed by: [facility], [address] [place] [address] CLIA ID: [id number] History/Other: Past Medical History: Past Medical History: [...] Father prostate High Blood Pressure Father Other ([id number]) Sister TBI Depression Mother Substance Abuse Brother Heart disease Mother Other ([id number]) Mother Depression Brother Social History: Social History [...] of this note. documented in this encounter [facility] 10-12-2023 Emergency department Note Meal tray ordered for patient at this time. Casandra Donald RN 10/12/23 0750 [facility] 10-11-2023 History and physical note Images from [...] at home. She does not see an Military Source Operations Specialist. She denies cp, sob, cough, n/v, [...] Father prostate High Blood Pressure Father Other ([id number]) Sister TBI Depression Mother Substance Abuse Brother Heart disease Mother Other ([id number]) Mother Depression Brother Medications Prior to Admission: [...] Information Primary Emergency Contact: Oliver Carey Address: [address] of [facility] Mobile Relation: Spouse [employer] Melanie Carey : 1965 Primary Care Physician: Gio Ricketts MD The patient and/or family/surrogate voluntarily agreed to participate in ACP services. Patient s cognitive capacity: good Code Status: [X_] [FULL CODE - Continue all advanced life support: CPR,intubation,invasive procedures] [_] [DNR-CCA - DO NOT do CPR, intubation] [_] [DNR-PT SITTER - Comfort care only] [_] DNR form [...] JARVIS FLANNERY MD Division of Hospitalist Medicine [facility] [employer] Phone: 10-11-2023 History and physical note Images [...] at home. She does not see an Military Source Operations Specialist. She denies cp, sob, cough, n/v, [...] Father prostate High Blood Pressure Father Other ([id number]) Sister TBI Depression Mother Substance Abuse Brother Heart disease Mother Other ([id number]) Mother Depression Brother Medications Prior to Admission: [...] Information Primary Emergency Contact: Oliver Carey Address: [address] [place] [address] of [place] Relation: Spouse [employer] Melanie Carey : 1965 Primary Care Physician: Gio Ricketts MD The patient and/or family/surrogate voluntarily agreed to participate in ACP services. Patient s cognitive capacity: good Code Status: [X_] [FULL CODE - Continue all advanced life support: CPR,intubation,invasive procedures] [_] [DNR-CCA - DO NOT do CPR, intubation] [_] [DNR-PT SITTER - Comfort care only] [_] DNR form [...] JARVIS FLANNERY MD Division of Hospitalist Medicine [facility] documented in this encounter [facility] 10-11-2023 Emergency department Note BG 54. Dr Calero notified. Instructed to give D50 and increase D10 to 150ml/hr. Kati Godfrey RN 10/11/232117 [facility] 10-11-2023 Emergency department Note Pt states at breakfast she took Humulin R Kwikpen 180 units. Lunch she checked BG and it was in 200s so she took 60-80 units. States she did not eat after lunch and did not take any additional insulin Kati Godfrey RN 10/11/232024 [facility] 10-11-2023 Emergency department Note Pt much more responsive after D50. A&Ox4. Kati Godfrey RN 10/11/232021 [facility] 10-11-2023 Emergency department Triage note Pt arrives via [private vehicle for concern for hypoglycemia. states it was 38. BG upon arrival 79. Pt lethargic and responding to pain upon arrival. Not able to respond to questions. Dr Max bedside. Pt clammy and has redness to face upon arrival [facility] 10-11-2023 Physician Emergency department Note EMERGENCY DEPARTMENT [...] Father prostate High Blood Pressure Father Other ([id number]) Sister TBI Depression Mother Substance Abuse Brother Heart disease Mother Other (60856) Mother Depression Brother SOCIAL HISTORY Social History [...] Housing in the Last Year: No SCREENINGS [place] Coma Scale Best Eye Response: Spontaneous Best Verbal Response: Oriented Best Motor Response: Follows commands [place] Coma Scale Score: 15 NIH Stroke Scale [...] 9. Best Language: No Aphasia 10. Dysarthria: Zjds-ie-Zqhyiobn Dysarthria 11. Extinction and Inattention: No Abnormality [...] Narrative: Performed by: [facility], [address] [facility] [address] CLIA ID: [id number] POCT GLUCOSE METER UNSOLICITED RESULTS - Abnormal Glucose 129 (*) Narrative: Performed by: [facility], [address] [facility] [address] CLIA ID: [id number] POCT GLUCOSE METER UNSOLICITED RESULTS - Normal Glucose 80 Narrative: Performed by: [facility], [address] [place] [address] CLIA ID: [id number] CORTISOL POCT GLUCOSE METER POCT GLUCOSE METER POCT GLUCOSE METER All other labs were within normal range or not returned as of this dictation. EMERGENCY DEPARTMENT COURSE and DIFFERENTIAL DIAGNOSIS/MDM: Vitals: Vitals: 10/11/23201510/11/23201610/11/23211810/11/232148 BP: (!) 165/69 135/88 Pulse: 64 Resp: 19 Temp: 36 C (96.8 F) TempSrc: [...] Medicine Provider Jeronimo Calero MD Resident 10/11/23 3293 [facility] 09-22-2023 History of Present illness Narrative [facility] [place] [address] [facility] [address] [address] [facility] [address] Dept: [phone] Dept Loc: [phone] Patient ID: Raiza Carey is a 58 [...] Father prostate High Blood Pressure Father Other (86031) Sister TBI Depression Mother Substance Abuse Brother Heart disease Mother Other (44887) Mother Depression Brother Social History Socioeconomic History [...] agreed with the treatment plan outlined above. Yiping Juan. M.D. - On this date, 09/22/23 , I have spent 60 minutes preparing to see the patient by reviewing previous notes/ancillary test results as well as with [id number]-tg-tnpa patient care, performing a medically appropriate examination, counseling & educating the patient/family/caregiver, ordering applicable medications/tests/procedures and completing required clinical documentation on the day of encounter. documented in this encounter [facility] 09-22-2023 History of Present illness Narrative [facility] [place] [address] [facility] [address] [facility] [address] Dept: [phone] Dept Loc: [phone] Patient ID: Raiza Carey is a 58 [...] Father prostate High Blood Pressure Father Other (12509) Sister TBI Depression Mother Substance Abuse Brother Heart disease Mother Other (26292) Mother Depression Brother Social History Socioeconomic History [...] notes/ancillary test results as well as with xpss-pw-ayme patient care, performing a medically appropriate examination, counseling & educating the patient/family/caregiver, ordering applicable medications/tests/procedures and completing required clinical documentation on the day of encounter. documented in this encounter [facility] 09-22-2023 Miscellaneous Notes Addended by: AVA NUNEZ on: 09/30/2023 08:08 AM Modules accepted: Orders documented in this encounter [facility] 09-22-2023 Note Addended by: AVA NUNEZ on: 09/30/2023 08:08 AM Modules accepted: Orders [facility] 08-26-2023 Evaluation + Plan note Associated Problem(s): Lip lesion Recommend referral to dermatology for further evaluation. [facility] 08-26-2023 Miscellaneous Notes Associated Problem(s): Lip lesion Recommend referral to dermatology for further evaluation. Associated Problem(s): Urinary tract infection symptoms UA few leuks, blood. Send for culture. No antibiotic therapy indicated at this time. Associated Problem(s): Back strain Consistent with lumbar strain. No red flags. Associated Problem(s): Depression Stable. Previously seeing psychiatry in [place]. Continue Wellbutrin 300 mg daily, BuSpar 10 [...] this time. Previously seeing Dr Overton in [place]. Continue current medications. documented in this encounter [facility] 08-26-2023 Evaluation + Plan note Associated Problem(s): Urinary tract infection symptoms UA few leuks, blood. Send for culture. No antibiotic therapy indicated at this time. [facility] 08-26-2023 Evaluation + Plan note Associated Problem(s): Back strain Consistent with lumbar strain. No red flags. [facility] 08-26-2023 Evaluation + Plan note Associated Problem(s): Depression Stable. Previously seeing psychiatry in [place]. Continue Wellbutrin 300 mg daily, BuSpar 10 mg twice daily, hydroxyzine 25 mg every 8 hours. [facility] 08-26-2023 Evaluation + Plan note Associated Problem(s): Obstructive sleep apnea syndrome Continue CPAP [facility] 08-26-2023 Evaluation + Plan note Associated Problem(s): Chronic obstructive pulmonary disease (HCC) Symptoms controlled [facility] 08-26-2023 Evaluation + Plan note Associated Problem(s): Migraine without aura and without status migrainosus, not intractable Controlled. [facility] 08-26-2023 Evaluation + Plan note Associated Problem(s): Hyperlipidemia LDL goal <70 Check lipids today, currently not on meds, consider starting statin [facility] 08-26-2023 Evaluation + Plan note Associated Problem(s): Essential hypertension Controlled. Continue labetolol 100 mg twice daily, consider starting ARB, does not tolerate CLAUDY inhibitors [facility] 08-26-2023 Evaluation + Plan note Associated Problem(s): Gastroesophageal reflux disease without esophagitis Controlled. Takes prilosec OTC. [facility] 08-26-2023 Evaluation + Plan note Associated Problem(s): Lymphopenia Repeat CBC, needs to follow up with hematology [facility] 08-26-2023 Evaluation + Plan note Associated Problem(s): Other cirrhosis of liver (HCC) Follow up with gastroenterology. Check cmp today [facility] 08-26-2023 Evaluation + Plan note Associated Problem(s): Anxiety Controlled. Doing well on current medication and we will take over manage at this time. Previously seeing Dr Overton in [place]. Continue current medications. [facility] 08-26-2023 History of Present illness Narrative Patient [...] & Plan: Stable. Previously seeing psychiatry in [place]. Continue Wellbutrin 300 mg daily, BuSpar 10 mg twice daily, hydroxyzine 25 mg every 8 hours. 6. Anxiety Assessment & Plan: Controlled. Doing well on current medication and we will take over manage at this time. Previously seeing Dr Overton in [place]. Continue current medications. Orders: - buPROPion XL [...] with tomosynthesis 10. Colon cancer screening - [facility] Gastroenterology 11. Urinary tract infection symptoms Assessment & Plan: UA few leuks, blood. Send for culture. No antibiotic therapy indicated at this time. Orders: - POCT urinalysis dipstick manually resulted - Urine culture (clean catch) 12. Other cirrhosis of liver (HCC) Assessment & Plan: Follow up with gastroenterology. Check cmp today Orders: - [facility] Gastroenterology 13. Thrombocytopenia (HCC) 14. Chronic bronchitis, [...] 08/26/2023 4:14 PM documented in this encounter [facility] 05-16-2023 Emergency department Note EMERGENCY DEPARTMENT ENCOUNTER [...] pain. Patient states that she was [place] this [place] and been doing fine and [...] Father prostate High Blood Pressure Father Other ([id number]) Sister TBI Depression Mother Substance Abuse Brother Heart disease Mother Other ([id number]) Mother Depression Brother SOCIAL HISTORY Social History [...] presyncopal event while she was sitting at [facility] when she got really hot. Her symptoms [...] discharged. I Mariana Snow MD am the educational speech language clinician of record. FINAL IMPRESSION No diagnosis found. [...] MD 05/16/23 1336 Emergency Department Encounter Location: [facility] ED Patient: Raiza Carey : 1965 [...] 412 ms QTC Interval 434 ms P Renovo 57 degrees QRS Renovo -62 degrees T Wave Renovo 60 degrees CO Interval 187 ms XR chest 1 view [...] words are mis-transcribed.) Eder Phillips MD Acute [facility] Eder Phillips MD 05/16/23 1632 Eder Phillips MD 05/16/23 1632 Pt states she was off all of her medication due to no insurance since early January. Started taking everything again on Wednesday (wellbutrin, buspar, metformin, labetolol) documented in this encounter [facility] 05-16-2023 Emergency department Triage note Pt states she was off all of her medication due to no insurance since january. Started taking everything again on Wednesday (wellbutrin, buspar, metformin, labetolol) [facility] 05-16-2023 Physician Emergency department Note EMERGENCY DEPARTMENT [...] pain. Patient states that she was at [facility] this morning and been doing fine and [...] Anxiety Arthritis Chest pain Depression Diabetic nephropathy ([facility]/HCC) (HCC) Elevated transaminase level Fatigue GERD (gastroesophageal [...] Father prostate High Blood Pressure Father Other ([id number]) Sister TBI Depression Mother Substance Abuse Brother Heart disease Mother Other ([id number]) Mother Depression Brother SOCIAL HISTORY Social History [...] disease. Report Dictated on Electronically Signed By: aFdi Sumner MD Electronically Signed Date/Time: 05/16/2023 1:16 [...] presyncopal event while she was sitting at [facility] when she got really hot. Her symptoms [...] discharged. I Mariana Snow MD am the educational speech language clinician of record. FINAL IMPRESSION No diagnosis found. [...] Emergency Medicine Provider Mariana Snow MD 05/16/23 8602 [employer] Phone: 05-16-2023 Physician Emergency department Note Emergency Department Encounter Location: [facility] ED Patient: Raiza Carey : 1965 [...] 412 ms QTC Interval 434 ms P Renovo 57 degrees QRS Renovo -62 degrees T Wave Renovo 60 degrees CO Interval 187 ms XR chest 1 view [...] 1,000 mL (0 mL IntraVENous Stopped 05/16/23 2325) meclizine (Antivert) tablet 25 mg (25 mg [...] 05/16/23 1632 Eder Phillips MD 05/16/23 1632 [facility] 03-15-2023 Hospital Discharge instructions Yogesh Dodson MD [...] through Care Everywhere.Cervical Muscle Strain Discharge Instructions (Lao)Headache, Adult ED (Lao)documented in this encounter [facility] 03-15-2023 Emergency department Note I did not participate in the care of this patient. HERMES James 03/15/23 1032 Emergency Department Encounter [facility] ED Patient: Melanie Carey : 1965 [...] bilateral lower extremities including hip flexion No kyuozd-ko-diho dysmetria Sensation intact and symmetrical bilateral upper [...] [employer] Yogesh Dodson MD 03/15/23 1609 documented in this encounter [facility] 03-15-2023 Physician Emergency department Note I did not participate in the care of this patient. HERMES James 03/15/23 1032 [facility] Work Phone: 03-15-2023 Physician Emergency department Note Emergency Department Encounter [facility] ED Patient: Melanie Carey : 1965 [...] bilateral lower extremities including hip flexion No kbkkpy-us-mjie dysmetria Sensation intact and symmetrical bilateral upper [...] for clarification. Yogesh Dodson MD Acute Care [facility] Yogesh Dodson MD 03/15/23 1609 [facility] 02-20-2023 Hospital Discharge instructions Nae Mobley NP [...] Blood Sugar from the Drugs You Take (Lao)Diabetic Meal Planning (Lao)Diabetes and Diet (Lao)documented in this encounter [facility] 02-20-2023 Plan of care note The patient [...] Recommendations to address these barriers include NA. [facility] 02-20-2023 Miscellaneous Notes The patient is Moderately [...] does receive free. Did provide her with [employer] list of insulin prices. She states it has been forever that she has been on two different types of insulin. She was wondering if [facility] could provide her insulin for free. [...] review. There is documentation from Sarah Mosher [facility] who has been assisting patient with medicaid and med resources. The patient informed me she is in the process of working on Medicaid with [facility]. She does see Dr. Ricketts under [facility]. In regrads to her Insulin, she does get Humulin for free and does have the medication at home. She is working with Dr. Ricketts's Office on getting the Jardiance, she has submitted for PAP but she needs to get her financial documents in to the Drug solar manufacturer's representative. The patient also is prescribed Wellbutrin and [...] states she is unable to afford antidiabetics, HEAD LIBRARIAN speaking with patient. Awaiting Endocrine Cons to determine status. TCC will continue to follow. documented in this encounter [facility] 02-20-2023 Note Formatting of this n ote might be different from the original. Was notified by nursing staff that patient is concerned about affording her insulin at discharge. She does have humulin R at home that she does receive free. Did provide her with [employer] list of insulin prices. She states it has been forever that she has been on two different types of insulin. She was wondering if [facility] could provide her insulin for free. Did [...] endocrinology regarding home going insulin recommendations. . [facility] 02-20-2023 Note Formatting of this n ote might be different from the original. Was notified by nursing staff that patient is concerned about affording her insulin at discharge. She does have humulin R at home that she does receive free. Did provide her with [employer] list of insulin prices. She states it has been forever that she has been on two different types of insulin. She was wondering if [facility] could provide her insulin for free. Did [...] endocrinology regarding home going insulin recommendations. . [facility] 02-20-2023 History of Present illness Narrative Nutrition rescreen complete. Pt assigned a level one for nutrition care. documented in this encounter [facility] 02-19-2023 Note Formatting of this n ote might be different from the original. S/W, follow up Lengthy conversation with patient in room regarding her uninsured status and also medication needs. I did chart review. There is documentation from Sarah Mosher [facility] who has been assisting patient with medicaid and med resources. The patient informed me she is in the process of working on Medicaid with [facility]. She does see Dr. Ricketts under [facility]. In regrads to her Insulin, she does get Humulin for free and does have the medication at home. She is working with Dr. Ricketts's Office on getting the Jardiance, she has submitted for PAP but she needs to get her financial documents in to the Drug solar manufacturer's representative. The patient also is prescribed Wellbutrin and Buspar. She does note she is able to afford the Buspr ($4 at [employer]) and Wellbutrin ($18 at [employer]) I did supply the patient with another Jardiance application for good measure if needed. If medication changes occur, suggest the most economical avenue. The patient at this time has all meds needed. [facility] 02-19-2023 Note Formatting of this n ote might be different from the original. S/W, follow up Lengthy conversation with patient in room regarding her uninsured status and also medication needs. I did chart review. There is documentation from Sarah Mosher [facility] who has been assisting patient with medicaid and med resources. The patient informed me she is in the process of working on Medicaid with [facility]. She does see Dr. Ricketts under [facility]. In regrads to her Insulin, she does get Humulin for free and does have the medication at home. She is working with Dr. Ricketts's Office on getting the Jardiance, she has submitted for PAP but she needs to get her financial documents in to the Drug solar manufacturer's representative. The patient also is prescribed Wellbutrin and Buspar. She does note she is able to afford the Buspr ($4 at [employer]) and Wellbutrin ($18 at [employer]) I did supply the patient with another Jardiance application for good measure if needed. If medication changes occur, suggest the most economical avenue. The patient at this time has all meds needed. [facility] 02-19-2023 Note Formatting of this n ote might be different from the original. Patient under Observation status in CDU 2 for hypoglycemia. Patient states she is unable to afford antidiabetics, HEAD LIBRARIAN speaking with patient. Awaiting Endocrine Cons to determine status. TCC will continue to follow. [facility] 02-19-2023 Note Formatting of this n ote might be different from the original. Patient under Observation status in CDU 2 for hypoglycemia. Patient states she is unable to afford antidiabetics, HEAD LIBRARIAN speaking with patient. Awaiting Endocrine Cons to determine status. TCC will continue to follow. T [facility] 02-19-2023 Consult note Associated Order (s): IP CONSULT TO ENDOCRINOLOGY Department of Internal Medicine Division of Endocrinology, Diabetes, & Metabolism Endocrinology Note Patient Name: Melanie Carey : 1965 AGE: 57 y.o. Room[facility]: [facility] A Admission Date: 02/18/2023 Visit Date: 02/19/2023 Reason for Endocrine Consult: dm2 hypoglycemia Provider/Team Requesting Consult: Dr. Fay PCP: Gio Ricketts MD [employer] Specialist: Yes , [facility] end[facility] has not [...] CHOLHDLRATIO 4 01/15/2020 No results found for: [id number] No results found for: TSH, Y4SFTSF, U1OFRKK, THYROIDAB Radiology reportsas per the Radiologist Radiology: [...] Father prostate High Blood Pressure Father Other ([id number]) Sister TBI Depression Mother Substance Abuse Brother Heart disease Mother Other ([id number]) Mother Depression Brother Social History: Social History [...] state/prognosis on the date of this note. T [employer] Phone: 02-19-2023 Consult note Associated Order (s): IP CONSULT TO ENDOCRINOLOGY Department of Internal Medicine Division of Endocrinology, Diabetes, & Metabolism Endocrinology Note Patient Name: Melanie Carey : 1965 AGE: 57 y.o. Room/Bed: [facility]/[address] Admission Date: 02/18/2023 Visit Date: 02/19/2023 Reason for Endocrine Consult: dm2 hypoglycemia Provider/Team Requesting Consult: Dr. Fay PCP: Gio Ricketts MD [employer]pt [employer] Specialist: Yes , suhas bhatt has not [...] CHOLHDLRATIO 4 01/15/2020 No results found for: [id number] No results found for: TSH, K6JFXLD, X1AAAWV, THYROIDAB Radiology reportsas per the Radiologist Radiology: [...] Father prostate High Blood Pressure Father Other ([id number]) Sister TBI Depression Mother Substance Abuse Brother Heart disease Mother Other ([id number]) Mother Depression Brother Social History: Social History [...] of this note. documented in this encounter [facility] 02-19-2023 History and physical note Images from [...] Father prostate High Blood Pressure Father Other ([id number]) Sister TBI Depression Mother Substance Abuse Brother Heart disease Mother Other ([id number]) Mother Depression Brother Social History Socioeconomic History [...] tablet 300 mg 300 mg Oral Daily Fernie Resendiz APRN - HOLLIE 300 mg at 02/19/23937 busPIRone (Buspar) tablet 10 mg 10 mg Oral BID Fernie Resendiz APRN - LINE WORKER 10 mg at 02/19/23937 dextrose 10 % infusion 200 mL/hr IntraVENous [...] 100 mg 100 mg Oral BID Fernie Resendiz APRN - LINE WORKER 100 mg at 02/19/23937 ondansetron ODT (Zofran-ODT) disintegrating tablet 4 mg 4 mg Oral q8h PRN NICOLE Rajan CNP Or ondansetron (Zofran) injection 4 mg 4 mg IntraVENous q6h PRN Fernie Resendiz APRN - HOLLIE polyethylene glycol (PEG) 3350 (Miralax) packet 17 g 17 g Oral Daily PRN Fernie Resendiz APRN - HOLLIE sodium chloride 0.9 % infusion 5-250 mL/hr IntraVENous PRN Fernie Resendiz APRN - HOLLIE sodium chloride 0.9% (NS) flush 5-40 mL 5-40 mL IntraVENous q12h Fernie Resendiz APRN - LINE WORKER 10 mL at 02/18/23 2213 sodium chloride 0.9% (NS) flush 5-40 mL 5-40 mL IntraVENous PRN Fernie Resendiz APRN - HOLLIE Allergies Allergen Reactions Cat Hair Extract Anaphylaxis [...] 60 (*) Narrative: Performed by: [facility], [address] [place] [id number] CLIA ID: [id number] POCT GLUCOSE METER UNSOLICITED RESULTS - Abnormal Glucose 62 (*) Narrative: Performed by: [facility], [address] [place] [address] [id number] CLIA ID: [id number] POCT GLUCOSE METER UNSOLICITED RESULTS - Abnormal Glucose 122 (*) Narrative: Performed by: [facility], [address] [place] [address] [id number] CLIA ID: [id number] SARS-COV-2, FLU A/B, AND RSV COMBO - [...] In compliance with this authorization, please visit www.fda.gov/media/616270/download or www.fda.gov/media/148222/download to access the applicable information sheets. POCT GLUCOSE METER UNSOLICITED RESULTS - Normal Glucose 82 Narrative: Performed by: [facility], [address] [place] [id number] CLIA ID: [id number] POCT GLUCOSE METER UNSOLICITED RESULTS - Normal Glucose 85 Narrative: Performed by: [facility], [address] [place] [id number] CLIA ID: [id number] POCT GLUCOSE METER UNSOLICITED RESULTS - Normal Glucose 82 Narrative: Performed by: [facility], [address] [place] [phone] CLIA ID: [id number] POCT GLUCOSE METER UNSOLICITED RESULTS - Normal Glucose 78 Narrative: Performed by: [facility], [address] [place] [id number] CLIA ID: [id number] POCT GLUCOSE METER POCT GLUCOSE METER POCT [...] workup. Independent review of ED workup: Initial udxqz-dj-kapg BG was 60. Shows WBC of 3, hemoglobin 12.2, no significant acute abnormalities. CMP shows normal electrolytes and kidney function, BG was low at 56, ALP 139 otherwise normal LFTs. COVID flu RSV swab negative. Latest POC BG at 0638 this morning is 78. External records reviewed: Patient seen here at [facility] ED 02/13/2023 for near syncope, at that time her BG was 198, she was ultimately discharged. Office visit 02/16/2023 with [facility], per notes she had [...] Mau Bates PA-C CDU Advanced Practice Provider Acute Care [facility] (Comment: Please note this report has been produced using speech recognition software and may contain errors related to that system including errors in grammar, punctuation, and spelling, as well as words and phrases that may be inappropriate. If there are any questions or concerns please feel free to contact the dictating provider for clarification.) [employer] Work Phone: 02-19-2023 History and physical note [...] Father prostate High Blood Pressure Father Other ([id number]) Sister TBI Depression Mother Substance Abuse Brother Heart disease Mother Other ([id number]) Mother Depression Brother Social History Socioeconomic History [...] 100 mg 100 mg Oral BID Fernie Resendiz APRN - LINE WORKER 100 mg at 02/19/23 0938 ondansetron ODT (Zofran-ODT) disintegrating tablet 4 mg 4 mg Oral q8h PRN Fernie Resendiz APRN - HOLLIE Or ondansetron (Zofran) injection 4 mg 4 mg IntraVENous q6h PRN Fernie Resendiz APRN - HOLLIE polyethylene glycol (PEG) 3350 (Miralax) packet 17 g 17 g Oral Daily PRN Fernie Resendiz APRN - HOLLIE sodium chloride 0.9 % infusion 5-250 mL/hr IntraVENous PRN Fernie Resendiz APRN - LINE WORKER sodium chloride 0.9% (NS) flush 5-40 mL 5-40 mL IntraVENous q12h Fernie Resendiz APRN - LINE WORKER 10 mL at 02/18/23 2213 sodium chloride 0.9% (NS) flush 5-40 mL 5-40 mL IntraVENous PRN Fernie Resendiz DIRECTOR OF BUSINESS SERVICES - LINE WORKER Allergies Allergen Reactions Cat Hair Extract Anaphylaxis [...] Abnormal Glucose 60 (*) Narrative: [facility] by: [facility], [address] [place] [address] CLIA ID: [id number] POCT GLUCOSE METER UNSOLICITED RESULTS - Abnormal Glucose 62 (*) Narrative: Performed by: [facility], [address] [place] [address] CLIA ID: [id number] POCT GLUCOSE METER UNSOLICITED RESULTS - Abnormal Glucose 122 (*) Narrative: Performed by: [facility], [address] [place] [id number] CLIA ID: [id number] SARS-COV-2, FLU A/B, AND RSV COMBO - [...] In compliance with this authorization, please visit www.fda.gov/media/183746/download or www.fda.gov/media/815311/download to access the applicable information sheets. POCT GLUCOSE METER UNSOLICITED RESULTS - Normal Glucose 82 Narrative: Performed by: [facility], [address] [place] [address] CLIA ID: [id number] POCT GLUCOSE METER UNSOLICITED RESULTS - Normal Glucose 85 Narrative: Performed by: [facility], [address] [place] [address] [id number] CLIA ID: [id number] POCT GLUCOSE METER UNSOLICITED RESULTS - Normal Glucose 82 Narrative: Performed by: [facility], [address] [place] [address] 599[address] CLIA ID: [id number] POCT GLUCOSE METER UNSOLICITED RESULTS - Normal Glucose 78 Narrative: Performed by: [facility], [address] [place] [address] CLIA ID: [id number] POCT GLUCOSE METER POCT GLUCOSE METER POCT [...] workup. Independent review of ED workup: Initial cazku-ly-owic BG was 60. Shows WBC of 3, hemoglobin 12.2, no significant acute abnormalities. CMP shows normal electrolytes and kidney function, BG was low at 56, ALP 139 otherwise normal LFTs. COVID flu RSV swab negative. Latest POC BG at 0638 this morning is 78. External records reviewed: Patient seen here at [facility] ED 02/13/2023 for near syncope, at that time her BG was 198, she was ultimately discharged. Office visit 02/16/2023 with [facility], per notes she had just [...] Mau Bates PA-C CDU Advanced Practice Provider [facility] (Comment: Please note this report has been produced using speech recognition software and may contain errors related to that system including errors in grammar, punctuation, and spelling, as well as words and phrases that may be inappropriate. If there are any questions or concerns please feel free to contact the dictating provider for clarification.) documented in this encounter [facility] 02-19-2023 Emergency department Note Report called to Cristin Lambert RN in CDU Isabel Parson RN 02/19/23930 [facility] 02-19-2023 Emergency department Note Report called to [...] Father prostate High Blood Pressure Father Other ([id number]) Sister TBI Depression Mother Substance Abuse Brother Heart disease Mother Other ([id number]) Mother Depression Brother SOCIAL HISTORY Social History [...] Response: Oriented Best Motor Response: Follows commands [place] Coma Scale Score: 15 PHYSICAL EXAM ED Triage Vitals Temp Heart Rate Resp BP 02/18/23 1821 02/18/23 1821 02/18/23 1821 02/18/23 182 36.2 C (97.1 F) 68 20 (!) 165/92 SpO2 Temp Source Heart Rate Source Patient Position 02/18/23 1821 02/18/23 1821 02/18/231 02/19/23215 97 % Oral Monitor Lying BP Location FiO2 (%) 02/19/23215 -- Left arm Physical Exam Tired appearing [...] Abnormal Glucose 60 (*) Narrative: Performed by: [facility], [address] [place] [address] CLIA ID: [id number] POCT GLUCOSE METER UNSOLICITED RESULTS - Abnormal Glucose 62 (*) Narrative: Performed by: [facility], [address] [place] [address] CLIA ID: [id number] POCT GLUCOSE METER UNSOLICITED RESULTS - Abnormal Glucose 122 (*) Narrative: Performed by: [facility], [address] [place] [address] CLIA ID: [id number] POCT GLUCOSE METER UNSOLICITED RESULTS - Abnormal Glucose 231 (*) Narrative: Performed by: [facility], [address] [place] [address] CLIA ID: [id number] POCT GLUCOSE METER UNSOLICITED RESULTS - Abnormal Glucose 153 (*) Narrative: Performed by: [facility], [address] [place] [address] CLIA ID: [id number] POCT GLUCOSE METER UNSOLICITED RESULTS - Abnormal Glucose 159 (*) Narrative: Performed by: [facility], [address] [place] [address] CLIA ID: [id number] POCT GLUCOSE METER UNSOLICITED RESULTS - Abnormal Glucose 149 (*) Narrative: Performed by: [facility], [address] [place] [address] CLIA ID: [id number] POCT GLUCOSE METER UNSOLICITED RESULTS - Abnormal Glucose 170 (*) Narrative: Performed by: [facility], [address] [place] [address] CLIA ID: [id number] POCT GLUCOSE METER UNSOLICITED RESULTS - Abnormal Glucose 152 (*) Narrative: Performed by: [facility], [address] [place] [address] CLIA ID: [id number] SARS-COV-2, FLU A/B, AND RSV COMBO - [...] In compliance with this authorization, please visit www.fda.gov/media/775670/download or www.fda.gov/media/648873/download to access the applicable information sheets. POCT GLUCOSE METER UNSOLICITED RESULTS - Normal Glucose 82 Narrative: Performed by: [facility], [address] [place] [address] CLIA ID: [id number] POCT GLUCOSE METER UNSOLICITED RESULTS - Normal Glucose 85 Narrative: Performed by: [facility], [address] [place] [address] CLIA ID: [id number] POCT GLUCOSE METER UNSOLICITED RESULTS - Normal Glucose 82 Narrative: Performed by: [facility], [address] [place] [address] CLIA ID: [id number] POCT GLUCOSE METER UNSOLICITED RESULTS - Normal Glucose 78 Narrative: Performed by: [facility], [address] [place] [address] CLIA ID: [id number] POCT GLUCOSE METER POCT GLUCOSE METER POCT [...] DIAGNOSIS/MDM: Vitals: Vitals: 02/19/23 1931 02/19/23 2233 02/20/2375402/20/23757 BP: 137/75 137/75 132/85 132/85 BP Location: [...] has not taken either of these today. Nfnqn-aw-fntl glucose was done here in the emergency [...] condition. I Mariana Snow MD am the educational speech language clinician of record. FINAL IMPRESSION 1. Hypoglycemia DISPOSITION Observation 02/19/2023 08:21:38 AM PATIENT REFERRED TO: Gio Ricketts MD [address] [facility], [place] [address] Schedule an appointment as soon as possible for a visit in 1 week(s) Hospital follow up - hypoglycemia Al Pemberton MD [address] [facility] [address] [facility] [address] Schedule an appointment as soon as possible for a visit Please call to set up new patient appointment within the next 2 weeks [facility] ED [address] [facility] [phone] Follow up As needed, [...] RN 02/19/23 0150 documented in this encounter [facility] 02-18-2023 Emergency department Note Bed: 06 Expected date: Expected time: Means of arrival: Comments: Main 1 Milka Avina RN 02/19/23 0150 [facility] 02-18-2023 Emergency department Triage note Pt states her blood sugar has been dropping throughout the day. 48 was the lowest. States she is unsure if she took her insulin or not [facility] 02-18-2023 Physician Emergency department Note EMERGENCY DEPARTMENT [...] Father prostate High Blood Pressure Father Other ([id number]) Sister TBI Depression Mother Substance Abuse Brother Heart disease Mother Other ([id number]) Mother Depression Brother SOCIAL HISTORY Social History [...] Housing in the Last Year: No SCREENINGS [place] Coma Scale Best Eye Response: Spontaneous Best Verbal Response: Oriented Best Motor Response: Follows commands [place] Coma Scale Score: 15 PHYSICAL EXAM ED Triage Vitals Temp Heart Rate Resp BP 02/18/23 1821 02/18/23 1821 02/18/23 1821 02/18/23 182 36.2 C (97.1 F) 68 20 [...] Abnormal Glucose 60 (*) Narrative: Performed by: [facility], [address] [place] [address] CLIA ID: [id number] POCT GLUCOSE METER UNSOLICITED RESULTS - Abnormal Glucose 62 (*) Narrative: Performed by: [facility], [address] [place] [address] CLIA ID: [id number] POCT GLUCOSE METER UNSOLICITED RESULTS - Abnormal Glucose 122 (*) Narrative: Performed by: [facility], [address] [place] [address] CLIA ID: [id number] POCT GLUCOSE METER UNSOLICITED RESULTS - Abnormal Glucose 231 (*) Narrative: Performed by: [facility], [address] [place] [address] CLIA ID: [id number] POCT GLUCOSE METER UNSOLICITED RESULTS - Abnormal Glucose 153 (*) Narrative: Performed by: [facility], [address] [place] [address] CLIA ID: [id number] POCT GLUCOSE METER UNSOLICITED RESULTS - Abnormal Glucose 159 (*) Narrative: Performed by: [facility], [address] [place] [address] CLIA ID: [id number] POCT GLUCOSE METER UNSOLICITED RESULTS - Abnormal Glucose 149 (*) Narrative: Performed by: [facility], [address] [place] [address] CLIA ID: [id number] POCT GLUCOSE METER UNSOLICITED RESULTS - Abnormal Glucose 170 (*) Narrative: Performed by: [facility], [address] [place] [address] CLIA ID: [id number] POCT GLUCOSE METER UNSOLICITED RESULTS - Abnormal Glucose 152 (*) Narrative: Performed by: [facility], [address] [place] [address] CLIA ID: [id number] SARS-COV-2, FLU A/B, AND RSV COMBO - [...] In compliance with this authorization, please visit www.fda.gov/media/024345/download or www.fda.gov/media/817117/download to access the applicable information sheets. POCT GLUCOSE METER UNSOLICITED RESULTS - Normal Glucose 82 Narrative: Performed by: [facility], [address] [place] [address] CLIA ID: [id number] POCT GLUCOSE METER UNSOLICITED RESULTS - Normal Glucose 85 Narrative: Performed by: [facility], [address] [place] [address] CLIA ID: [id number] POCT GLUCOSE METER UNSOLICITED RESULTS - Normal Glucose 82 Narrative: Performed by: [facility], [address] [place] [address] CLIA ID: [id number] POCT GLUCOSE METER UNSOLICITED RESULTS - Normal Glucose 78 Narrative: Performed by: [facility], [address] [place] [address] CLIA ID: [id number] POCT GLUCOSE METER POCT GLUCOSE METER POCT [...] 5 Units (5 Units SubCUTAneous Not Given 02/20/231699) Insulin Lispro (Humalog) injection 0-6 Units ( SubCUTAneous Not Given 02/20/231699) dextrose 5 % and sodium chloride 0.9 [...] has not taken either of these today. Edjqk-kr-dsfv glucose was done here in the emergency [...] condition. I Mariana Snow MD am the educational speech language clinician of record. FINAL IMPRESSION 1. Hypoglycemia DISPOSITION Observation 02/19/2023 08:21:38 AM PATIENT REFERRED TO: Gio Ricketts MD [address] [facility], [address] [facility] [phone] Schedule an appointment as soon as possible for a visit in 1 week(s) Hospital follow up - hypoglycemia Al Pemberton MD [address] [facility] [address] [facility] [phone] Schedule an appointment as soon as possible for a visit Please call to set up new patient appointment within the next 2 weeks [facility] ED [address] [facility] [phone] Follow up As needed, [...] Emergency Medicine Provider Mariana Snow MD 02/20/232019 [facility] 02-16-2023 Evaluation + Plan note Associated Problem(s): Lymphopenia Will repeat CBC with gela-smear next week. Refer to hematology also for further evaluation and treatment [facility] 02-16-2023 Miscellaneous Notes Associated Problem(s): Lymphopenia Will [...] unremarkable in ER documented in this encounter [facility] 02-16-2023 Evaluation + Plan note Associated Problem(s): Thrombocytopenia (HCC) Will recheck platelets next week along with CBC peripheral smear. Refer to hematology [facility] 02-16-2023 Evaluation + Plan note Associated Problem(s): Type 2 diabetes mellitus with polyneuropathy (HCC) Currently poorly controlled, likely secondary to not having all of her diabetic medications due to financial constraints. Patient recently restarted her insulin which should help. Continue to monitor glucose at home we will have her send readings to us in 1 week [facility] 02-16-2023 Evaluation + Plan note Associated Problem(s): Essential hypertension Controlled. Continue labetalol 100 mg twice daily [facility] 02-16-2023 Evaluation + Plan note Associated Problem(s): Acute pain of left knee Improving slightly. Patient to follow-up with sports medicine for further evaluation and treatment. Imaging was unremarkable in ER T [facility] 02-16-2023 History of Present illness Narrative Images [...] auto differential - Peripheral blood smear - [facility] Oncology 2. Thrombocytopenia (HCC) Assessment & Plan: Will recheck platelets next week along with CBC peripheral smear. Refer to hematology Orders: - CBC auto differential - [facility] Oncology 3. Type 2 diabetes mellitus with [...] previously seen by hematology- was seeing [place]. Does not know what the diagnosis was. Would like to see a different specialist within [facility]. Recent labs also showed leukopenia -lymphopenia [...] not taking: Reported on 02/01/2023 12/09/22 Kassi Seymour, DIRECTOR OF BUSINESS SERVICES - LINE WORKER Review of Systems Constitutional: Negative for activity [...] 02/16/2023 4:30 PM documented in this encounter [facility] 02-13-2023 Emergency department Note To XR @1999 Deisi Ladd RN 02/13/232004 [facility] 02-13-2023 Emergency department Note To XR @1999 [...] arthritis. 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 While she was standing at the doorway [...] to affected area 2 times daily, Starting Rianna 02/04/2023, Until Rianna 02/18/2023, Normal empagliflozin (Jardiance) 25 MG Take 1 [...] Father prostate High Blood Pressure Father Other ([id number]) Sister TBI Depression Mother Substance Abuse Brother Heart disease Mother Other ([id number]) Mother Depression Brother SOCIAL HISTORY Social History [...] Response: Oriented Best Motor Response: Follows commands [place] Coma Scale Score: 15 PHYSICAL EXAM ED [...] (*) Narrative: Performed by: [facility], [address] [place] [address] CLIA ID: [id number] TROPONIN I - Normal TROPONIN I <0.012 [...] elevated. Ionized calcium is within normal limits. Adqag-lj-dgfs blood glucose is 198. Patient states that [...] PM PATIENT REFERRED TO: Gio Ricketts MD [address] [place] [address], [facility] [address] [facility] [phone] Call in 2 days [facility] ED [address] [place] [phone] If symptoms worsen DISCHARGE MEDICATIONS: Discharge [...] Grady MD 02/14/2336 documented in this encounter [facility] 02-13-2023 Physician Emergency department Note EMERGENCY DEPARTMENT [...] arthritis. 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 While she was standing at the doorway [...] Father prostate High Blood Pressure Father Other ([id number]) Sister TBI Depression Mother Substance Abuse Brother Heart disease Mother Other ([id number]) Mother Depression Brother SOCIAL HISTORY Social History [...] Housing in the Last Year: No SCREENINGS [place] Coma Scale Best Eye Response: Spontaneous Best Verbal Response: Oriented Best Motor Response: Follows commands [place] Coma Scale Score: 15 PHYSICAL EXAM ED [...] [facility] (Per Emergency Physician): Interpretation per [...] Glucose 198 (*) Narrative: [facility]formed by: [facility], [address] [place] [address] CLIA ID: [id number] TROPONIN I - Normal TROPONIN I <0.012 [...] elevated. Ionized calcium is within normal limits. Kyjcu-lq-aajx blood glucose is 198. Patient states that [...] PM PATIENT REFERRED TO: Gio Ricketts MD [address] [place] [address], [address] [facility] [phone] Call in 2 days [facility] ED [address] [facility] [phone] If symptoms worsen DISCHARGE [...] Emergency Medicine Provider Nelson Grady MD 02/14/2336 [facility] 02-06-2023 Emergency department Note Ice applied to left knee. Itzel Dela Cruz RN 02/06/232127 [facility] 02-06-2023 Emergency department Note Ice applied to [...] Father prostate High Blood Pressure Father Other ([id number]) Sister TBI Depression Mother Substance Abuse Brother Heart disease Mother Other ([id number]) Mother Depression Brother SOCIAL HISTORY Social History [...] DEPARTMENT COURSE and DIFFERENTIAL DIAGNOSIS/MDM: Vitals: Vitals: 02/06/232099 BP: (!) 152/68 Pulse: 80 Resp: 16 [...] Discharge 02/06/2023 09:52:46 PM PATIENT REFERRED TO: [facility] [address] [place] [phone] DISCHARGE MEDICATIONS: Discharge Medication List as of [...] Noyola DO 02/06/232151 Izabela Noyola DO 02/06/232217 Patient to room 4 with c/o left knee pain for 2 days. Patient reports painful ambulation and painful with pressure. V/S obtained, call light within reach. documented in this encounter [facility] 02-06-2023 Emergency department Triage note Patient to room 4 with c/o left knee pain for 2 days. Patient reports painful ambulation and painful with pressure. V/S obtained, call light within reach. [facility] 02-06-2023 Physician Emergency department Note EMERGENCY DEPARTMENT [...] Arthritis Chest pain Depression Diabetic nephropathy (CMS/HCC) ([facility]) Elevated transaminase level Fatigue GERD (gastroesophageal reflux [...] to affected area 2 times daily, Starting Rianna 02/04/2023, Until Rianna 02/18/2023, Normal empagliflozin (Jardiance) 25 MG Take 1 [...] Father prostate High Blood Pressure Father Other ([id number]) Sister TBI Depression Mother Substance Abuse Brother Heart disease Mother Other ([id number]) Mother Depression Brother SOCIAL HISTORY Social History [...] Discharge 02/06/2023 09:52:46 PM PATIENT REFERRED TO: [facility] [phone] DISCHARGE MEDICATIONS: Discharge Medication List as [...] Izabela Noyola DO 02/06/232151 Izabela Noyola DO 02/06/238 [facility] 02-04-2023 Hospital Discharge instructions Jarvis Belcher MD - 02/04/2023 11:45 PM EDT Use the Augmentin twice a day for 10 days. Use the Lotrimin cream twice a day for 14 days. You can also use an vbmr-sjt-egdzxel antifungal powder. In addition keep this area clean and dry is much as possible. Call your doctor tomorrow to be seen in the next 1 to 4 days. The following attachments cannot be sent through Care Everywhere.Skin Abscess (Lao)Fungal Skin Rash Discharge Instructions (Lao)documented in this encounter [facility] 02-04-2023 Emergency department Note [facility] ED EMERGENCY DEPARTMENT ENCOUNTER Pt Name: [...] her vaginal area I had a female spa director/finance it is actually in her skin fold. [...] Father prostate High Blood Pressure Father Other ([id number]) Sister TBI Depression Mother Substance Abuse Brother Heart disease Mother Other ([id number]) Mother Depression Brother SOCIAL HISTORY Social History [...] is regular. Lungs are clear. With female spa director/finance examination of the skin fold of her [...] first dose orally here. Also Lotrimin ointment ffgc-kkg-ikcpexi twice a day for 14 days. Can also use antifungal vlto-daw-kibyqlc powder keep the area clean and dry. [...] PM PATIENT REFERRED TO: Gio Ricketts MD [address] [place] [address], [address] [facility] [address] In 4 days DISCHARGE MEDICATIONS: New Prescriptions AMOXICILLIN-CLAVULANATE (AUGMENTIN) 875-125 MG TABLET Take 1 tablet by mouth in the morning and 1 tablet in the evening. Do all this for 10 days. CLOTRIMAZOLE (LOTRIMIN) 1 % CREAM Apply 1 Application topically 2 times daily for 14 days. Apply to affected area 2 times daily @[facility]([id number]:LAST:1)@ (Comment: Please notethis report has been produced [...] Attending Emergency Physician Jarvis Belcher MD 02/04/23 1053 documented in this encounter [facility] 02-04-2023 Physician Emergency department Note [facility] ED EMERGENCY DEPARTMENT ENCOUNTER Pt Name: [...] her vaginal area I had a female spa director/finance it is actually in her skin fold. [...] Father prostate High Blood Pressure Father Other (89240) Sister TBI Depression Mother Substance Abuse Brother Heart disease Mother Other (48311) Mother Depression Brother SOCIAL HISTORY Social History [...] is regular. Lungs are clear. With female spa director/finance examination of the skin fold of her [...] first dose orally here. Also Lotrimin ointment ofcm-tga-wmngpkj twice a day for 14 days. Can also use antifungal twtk-lly-kghotxn powder keep the area clean and dry. [...] PM PATIENT REFERRED TO: Gio Ricketts MD [address] [place] [address], [address] [facility] [phone] In 4 days DISCHARGE MEDICATIONS: New Prescriptions AMOXICILLIN-CLAVULANATE (AUGMENTIN) 875-125 MG TABLET Take 1 tablet by mouth in the morning and 1 tablet in the evening. Do all this for 10 days. CLOTRIMAZOLE (LOTRIMIN) 1 % CREAM Apply 1 Application topically 2 times daily for 14 days. Apply to affected area 2 times daily @[facility]([id number]:LAST:1)@ (Comment: Please notethis report has been produced [...] Attending Emergency Physician Jarvis Belcher MD 02/04/232346 [facility] 01-14-2023 Emergency department Note Pt called with no answer multiple times by Seeo and this ANTOINE Avina RN 01/14/232356 Milka Avina RN 01/14/232356 [facility] 01-14-2023 Emergency department Note Pt called with no answer multiple times by Seeo and this ANTOINE Avina RN 01/14/232356 Milka Avina RN 01/14/232356 EMERGENCY DEPARTMENT ENCOUNTER Pt Name: Raiza Carey Birthdate 1965 Date of evaluation: 01/14/2023 ED Provider: Clayton Brook, DIRECTOR OF BUSINESS SERVICES - LINE WORKER I have evaluated this patient on my [...] Father prostate High Blood Pressure Father Other ([id number]) Sister TBI Depression Mother Substance Abuse Brother Heart disease Mother Other (65124) Mother Depression Brother SOCIAL HISTORY Social History [...] Emergency Medicine Provider NICOLE Austin CNP 01/15/23107 documented in this encounter [facility] 01-14-2023 Physician Emergency department Note EMERGENCY DEPARTMENT [...] Father prostate High Blood Pressure Father Other ([id number]) Sister TBI Depression Mother Substance Abuse Brother Heart disease Mother Other (50545) Mother Depression Brother SOCIAL HISTORY Social History [...] Physician EKG interpretation can be found in [facility] RADIOLOGY (Per Emergency Physician): Interpretation per the [...] Medicine Provider NICOLE Austin CNP 01/15/23 0108 [facility] 12-09-2022 Evaluation + Plan note Associated Problem(s): Lip swelling Unsure if r/t herpes vs lisinopril. Swelling no worse at this time. No difficulty swallowing, no shortness of breath. Continue acyclovir. Do not take lisinopril. Monitor blood pressure at home. Send update In 2 days. Consider antibiotic if not improving d/t associated left sided cervical adenopathy (only if not improving) [facility] 12-09-2022 Evaluation + Plan note Associated Problem(s): Depression Stable. Managed by psych [facility] 12-09-2022 Evaluation + Plan note Associated Problem(s): Anxiety Stable. Managed by psych [facility] 12-09-2022 Miscellaneous Notes Associated Problem(s): Lip swelling [...] mg twice daily documented in this encounter [facility] 12-09-2022 Evaluation + Plan note Associated Problem(s): Hyperlipidemia LDL goal <70 Controlled. Not on medications currently.? [facility] 12-09-2022 Evaluation + Plan note Associated Problem(s): Essential hypertension Controlled. Continue labetalol 100 mg every 12 hours. [facility] 12-09-2022 Evaluation + Plan note Associated Problem(s): Chronic obstructive pulmonary disease (HCC) Controlled. Continue cpap [facility] 12-09-2022 Evaluation + Plan note Associated Problem(s): Type 2 diabetes mellitus with polyneuropathy (HCC) Controlled. Hemoglobin A1c 7.2 (10/2022), continue jardiance 25 mg daily, Humulin R U-500 3 times daily as prescribed. Metformin 1000 mg twice daily T [facility] 12-09-2022 History of Present illness Narrative Images from the original note were not included. 12/09/2022 Melanie Restrepo (: 1965) is a 57 y.o. female , New patient, here for evaluation of the following chief complaint(s): Establish Care, Health Maintenance (Hep C--declines, HIV--declines, Cervical--does not remember when the last pap was, Colon--last she thinks was in 2019-- Jadebbie, Dm eye--had a few months ago jeanie in [place], Dental--hasn't been she has dentures, Hep B--declines, [...] as new patient, previous primary care provider [facility] in [place], last seen 6 months by previous provider. Specialists/other providers? no Chief complaint(s): Establish Care, Health Maintenance (Hep C--declines, HIV--declines, Cervical--does not remember when the last pap was, Colon--last she thinks was in 2019-- Jadebbie, Dm eye--had a few months ago manjeet in [place], Dental--hasn't been she has dentures, Hep B--declines, [...] Umbilical Hernia surgery in 10/2022- went well. [facility] Hot flashes at bedtime. Occasional Needs dexcom but needs possible new script- she states she has to check with [facility]. Anxiety/depression- reports controlled. Dr. Overton psychiatry- [place]. [facility] pharmacy- previous pharmacy. Past Medical History: Diagnosis [...] Father prostate High Blood Pressure Father Other ([id number]) Sister TBI Depression Mother Substance Abuse Brother Heart disease Mother Other ([id number]) Mother Depression Brother Social History Socioeconomic History [...] MD Alfaro Pentips 31G X 8 MM [facility] 10/20/22 Yes Historical Provider, Folic Acid-Cholecalciferol 1-2000 [...] 12/09/2022 11:34 AM documented in this encounter [facility] 12-09-2022 Instructions NICOLE Easley CNP - 12/09/2022 11:20 AM EDT night or Wednesday early am with update of condition and blood pressure readings. No lisinopril for now. documented in this encounter [facility] 12-07-2022 Hospital Discharge instructions Catarino Arce DO - 12/07/2022 10:24 AM EDT Stop taking your lisinopril. You should never take an CLAUDY inhibitor again as you may experience similar or worse swelling each time you take them. Discussed with your PCP on Wednesday about additional blood pressure medication regimen. The following attachments cannot be sent through Care Everywhere.Angioedema Caused by CLAUDY Inhibitor Medicines (Lao)Cold Sores ED (Lao)documented in this encounter [facility] 12-07-2022 Emergency department Note EMERGENCY DEPARTMENT ENCOUNTER [...] otherwise acutely negative except as in the ENTERPRISE. PAST MEDICAL HISTORY Past Medical History: Diagnosis [...] Father prostate High Blood Pressure Father Other ([id number]) Sister TBI Depression Mother Substance Abuse Brother Heart disease Mother Other ([id number]) Mother Depression Brother SOCIAL HISTORY Social History [...] alternative antihypertensive medications. Diagnoses as of 12/07/22 113 Lip swelling Cold sore Angioedema, initial encounter [...] DISPOSITION/PLAN dc PATIENT REFERRED TO: Al Ricketts [facility] [address] [address] Schedule an appointment as soon [...] awakening this a.m. documented in this encounter [facility] 12-07-2022 Emergency department Triage note L sided facial swelling upon awakening this a.m. [facility] 12-07-2022 Physician Emergency department Note EMERGENCY DEPARTMENT [...] otherwise acutely negative except as in the ENTERPRISE. PAST MEDICAL HISTORY Past Medical History: Diagnosis [...] Father prostate High Blood Pressure Father Other ([id number]) Sister TBI Depression Mother Substance Abuse Brother Heart disease Mother Other ([id number]) Mother Depression Brother SOCIAL HISTORY Social History [...] PATIENT REFERRED TO: Al Ricketts [address] [address] Schedule an appointment as soon [...] Medicine Provider Catarino Arce DO 12/07/22 1139 [facility] Evaluation note No assessment inform ation available [facility] Work Phone: Evaluation note Diagnosis Onset Date Thrombocytopenia chronic [facility] Work Phone: Evaluation note* Diagnosis Onset Date Resolution Status Thrombocytopenia chronic [id number] acute History of tobacco use acute [facility] Work Phone: Evaluation note* Diagnosis Angioedema, initial encounter- Primary Lip swelling Diseases of lips Cold sore Herpes simplex without mention of complication documented in this encounter [facility]* Diagnosis Lip swelling- Primary [...] [facility]* Diagnosis Fall, initial encounter- Primary Left hand pain Pain in soft tissues of limb Left wrist pain Pain in joint, forearm Left shoulder pain, unspecified chronicity documented in this encounter [facility]* Diagnosis Abscess- Primary Cellulitis and abscess of unspecified site Lilly infection Candidiasis of unspecified site documented in this encounter [facility]* Diagnosis Sprain of left knee, unspecified ligament, initial encounter- Primary documented in this encounter [facility]* Diagnosis Near syncope- Primary [facility] Diagnosis Lymphopenia- Primary Lymphocytopenia Thrombocytopenia (HCC) Unspecified thrombocytopenia Type 2 diabetes mellitus with polyneuropathy (HCC) Type II or unspecified type diabetes mellitus with neurological manifestations, not stated as uncontrolled Acute pain of left knee Essential hypertension Unspecified essential hypertension [facility] Diagnosis Hypoglycemia- Primary Hypoglycemia, unspecified Hypoglycemia Hypoglycemia, unspecified [facility] Diagnosis Strain of neck muscle, initial encounter- Primary documented in this encounter [facility]* Diagnosis Chest pain, unspecified type- Primary documented in this encounter [facility]* Diagnosis Annual physical exam- Primary [...] Diseases of lips documented in this encounter [facility]* Diagnosis Annual physical exam- Primary [facility] Diagnosis Pancytopenia (HCC) documented [...] [facility] Diagnosis Pancytopenia (HCC)- Primary documented [...] [facility]* Diagnosis Hyponatremia- Primary Hyposmolality [...] [facility]* Diagnosis Acute nonintractable headache, unspecified headache type- Primary documented in this encounter [facility]* Diagnosis Intertrigo- Primary Other [...] type (HCC)- Primary documented in this encounter [place] [...] 2 diabetes mellitus with hyperglycemia, unspecified whether inspector mechanical insulin use (HCC) Other cirrhosis of liver [...] 2 diabetes mellitus with hyperglycemia, unspecified whether inspector mechanical insulin use (HCC) Other cirrhosis of liver [...] diabetes mellitus with hyperglycemia, unspecified whether senior living insulin use (HCC) Type 2 diabetes mellitus [...] 2 diabetes mellitus with hyperglycemia, unspecified whether inspector mechanical insulin use (HCC) Other cirrhosis of liver [...] diabetes mellitus with hyperglycemia, unspecified whether senior living insulin use (HCC) Other cirrhosis of liver [...] diabetes mellitus with hyperglycemia, unspecified whether senior living insulin use (HCC) [facility] 2 diabetes mellitus with hyperglycemia, unspecified whether inspector mechanical insulin use (HCC) Other cirrhosis of liver [...] diabetes mellitus with hyperglycemia, unspecified whether senior living insulin use (HCC) Other cirrhosis of liver [...] 2 diabetes mellitus with hyperglycemia, unspecified whether inspector mechanical insulin use (HCC) Other cirrhosis of liver [...] 2 diabetes mellitus with hyperglycemia, unspecified whether inspector mechanical insulin use (HCC) Yeast dermatitis Class 3 severe obesity due to excess calories with serious comorbidity and body mass index (BMI) of 40.0 to 44.9 in adult (HCC) [facility] Diagnosis Lip swelling- Primary Diseases of [...] 2 diabetes mellitus with hyperglycemia, unspecified whether inspector mechanical insulin use (HCC) Other cirrhosis of liver [...] 2 diabetes mellitus with hyperglycemia, unspecified whether inspector mechanical insulin use (HCC) Yeast dermatitis Class 3 severe obesity due to excess calories with serious comorbidity and body mass index (BMI) of 40.0 to 44.9 in adult Skin tag- Primary Unspecified hypertrophic and atrophic condition of skin S/P skin biopsy documented [facility] encounter [facility] [...] diabetes mellitus with hyperglycemia, unspecified whether senior living insulin use (HCC) Other cirrhosis of liver [...] 2 diabetes mellitus with hyperglycemia, unspecified whether inspector mechanical insulin use (HCC) Yeast dermatitis Class 3 severe obesity due to excess calories with serious comorbidity and body mass index (BMI) of 40.0 to 44.9 in adult Fall, initial encounter- Primary Contusion of lower back, initial encounter documented in this encounter [facility]* Diagnosis Lip swelling- Primary [...] diabetes mellitus with hyperglycemia, unspecified whether senior living insulin use (HCC) Other cirrhosis of liver [...] diabetes mellitus with hyperglycemia, unspecified whether senior living insulin use (HCC) Yeast dermatitis Class 3 severe obesity due to excess calories with serious comorbidity and body mass index (BMI) of 40.0 to 44.9 in adult Type 2 diabetes mellitus with hyperglycemia, unspecified whether senior living insulin use (HCC) documented in this encounter [facility]* Diagnosis Lip swelling- Primary [...] 2 diabetes mellitus with hyperglycemia, unspecified whether inspector mechanical insulin use (HCC)- Primary documented in this encounter [facility]* Diagnosis Lip swelling- Primary [...] 2 diabetes mellitus with hyperglycemia, unspecified whether inspector mechanical insulin use (HCC) Other cirrhosis of liver [...] 2 diabetes mellitus with hyperglycemia, unspecified whether inspector mechanical insulin use (HCC) Yeast dermatitis Class 3 severe obesity due to excess calories with serious comorbidity and body mass index (BMI) of 40.0 to 44.9 in adult Dehydration- Primary [facility] 2 diabetes mellitus with hyperglycemia, unspecified whether inspector mechanical insulin use (HCC) Other cirrhosis of liver [...] 2 diabetes mellitus with hyperglycemia, unspecified whether inspector mechanical insulin use (HCC) Yeast dermatitis Class 3 severe obesity due to excess calories with serious comorbidity and body mass index (BMI) of 40.0 to 44.9 in adult Fall, initial encounter- Primary Acute midline low back pain without sciatica Contusion of sacrum, initial encounter documented [facility] [...] 2 diabetes mellitus with hyperglycemia, unspecified whether inspector mechanical insulin use (HCC) Other cirrhosis of liver [...] 2 diabetes mellitus with hyperglycemia, unspecified whether inspector mechanical insulin use (HCC) Yeast dermatitis Class 3 severe obesity due to excess calories with serious comorbidity and body mass index (BMI) of 40.0 to 44.9 in adult Type 2 diabetes mellitus with polyneuropathy (HCC) Type II or unspecified type diabetes mellitus with neurological manifestations, not stated as uncontrolled [facility] Additional Instructions Your labs are [...] Make sure you are taking your daily aspirin.[facility]* Attachments The following attachments cannot be sent through Care Everywhere. * Near Fainting Discharge Instructions (Lao) documented in this [facility] Discharge instructions* Attachments The following attachments cannot be sent through Care Everywhere. * Chest Pain Discharge Instructions (Lao) documented in this [facility] Discharge instructions* Attachments The following attachments cannot be sent through Care Everywhere. * Guide to Eating When You Have Diabetes (Lao) documented in this [facility] Discharge instructions* Attachments The following attachments cannot be sent through Care Everywhere. * Intertrigo Discharge Instructions (Lao) * Fluconazole, ADULT (Lao) * Nystatin (Topical), ADULT (Lao) documented in this [facility] Discharge instructions* Attachments The following attachments cannot be sent through Care Everywhere. * High Blood Sugar, Adult ED (Lao) * Acute Kidney Injury (Lao) documented in this [facility] Discharge instructions* Attachments The following attachments cannot be sent through Care Everywhere. * Coccyx Injury Discharge Instructions (Lao) * Preventing Falls ED (Lao) * Low Back Pain Discharge Instructions (Lao) documented in this [facility] for referral (narrative)* Consultation (Routine) - Pending Review Specialty Diagnoses / Procedures Referred By Tammy resendiz Referred To Contact Sports Medicine Diagnoses Sprain of left knee, unspecified ligament, initial encounter Procedures CO OFFICE/OUTPATIENT NEW HIGH MDM 60-74 MINUTES Izabela Noyola DO [address] [place] [address] [facility] [address] [place] [address] Referral ID Status Reason Start Date Expiration Date Visits Requested Visits Authorized [id number] Pending Review Specialty Services Required 02/06/2023 02/06/2024 1 1 [facility] Consultation (Routine) - Pending Review Specialty Diagnoses / Procedures Referred By Contac t Referred To Contact Hematology and Oncology Diagnoses Lymphopenia Thrombocytopenia (HCC) Procedures CO OFFICE/OUTPATIENT NEW HIGH MDM 60-74 MINUTES Kassi Seymour, DIRECTOR OF BUSINESS SERVICES - LINE WORKER [address] [facility] [place] [address] [facility] Onc [address] [place] [address] Referral ID Status Reason Start Date Expiration Date Visits Requested Visits Authorized [id number] Pending Review Specialty Services Required 02/16/2023 02/16/2024 1 1 [facility] Consultation (Urgent) - Pending Review Specialty Diagnoses / Procedures Referred By Contac t Referred To Contact Cardiology Diagnoses Chest pain, unspecified type Procedures CO OFFICE/OUTPATIENT NEW HIGH MDM 60-74 MINUTES Ems, Eder Tavarez MD [address] [place] [address] [facility] [address] [facility] [address] [place] [address] Referral ID Status Reason Start Date Expiration Date Visits Requested Visits Authorized [id number] Pending Review Specialty Services Required 05/16/2023 05/15/2024 1 1 [facility] Consultation (Routine) - Pending Review Specialty Diagnoses / Procedures Referred By Contac t Referred To Contact Gastroenterology Diagnoses Colon cancer screening Other cirrhosis of liver (HCC) Procedures CO OFFICE/OUTPATIENT NEW [facility] MDM 60 MINUTES Kassi Seymour APRN - CNP [address] [facility] [place] [address] [facility] Gastro [address] [place] [address] Referral ID Status Reason Start Date Expiration Date Visits Requested Visits Authorized [id number] Pending Review Specialty Services Required 08/26/2023 08/25/2024 1 1 * Medications - Pending Review Specialty Diagnoses / Procedures Referred By Contac t Referred To Contact Diagnoses Type 2 diabetes mellitus with polyneuropathy (HCC) Kassi Seymour APRN - CNP [address] [facility] [place] [address] Referral ID Status Reason Start Date Expiration Date V isits Requested Visits Authorized [id number] Pending Review 1 1 [facility] (n[facility])* Consultation (Routine) - Pending Review Specialty Diagnoses / Procedures Referred By Contac t Referred To Contact Endocrinology Diagnoses Hypoglycemia Procedures CO OFFICE/OUTPATIENT [facility] MDM 60 MINUTES Vani Salas PA-C [address] [place] [address] [facility] [address] [place] [address] Referral ID Status Reason Start Date Expiration Date Visits Requested Visits Authorized [id number] Pending Review Specialty Services Required 12/13/2023 12/12/2024 1 1 [facility] Health Summary Purpose Family History No Family History Records Found Relationship Condition Age at Onset Recorded Date/T renee sister Traumatic brain injury Unknown brother Substance abuse Unknown Depression Unknown father Hypertension Unknown Malignant neoplasm of prostate Unknown Heart disease Unknown mother Depression Unknown Diabetes mellitus Unknown Advance Directives No Advanced Directives Records FoundDocuments on File Type Date Recorded Patient Bait Tier Expl anation Advance Directives and Living Will Power of System Manager Latest Code Status on File Code Status Date Activated Date Inactivated Comments Full Code 10/28/2018 7:29 PM 10/31/2018 7:37 PM Full Code 06/03/2018 6:31 AM 06/03/2018 7:05 PM Full Code 2018 7:42 PM 06/03/2018 6:31 AM Full Code 04/14/2018 11:11 PM 04/15/2018 3:01 PM Documents on File Type Date Recorded Patient Bait Tier Expl anation ACP-Advance Directive ACP-Power of System Manager Advance Directive Response Recorded Date/ Time Living Will No June 05 7:12pm Power of System Manager No June 05, 2021 7:12pm Advance Directive Response Recorded Date/ Time Living Will No March 06 11:53pm Power of System Manager No March 06 11:53pm Advance Directive Response Recorded Date/ Time Living Will No March 06 10:53pm Power of System Manager No March 06 10:53pm Latest Code Status [...] Course Note Patient ID: Melanie Fernández Desiree rellPatient's PCP: Gio Ricketts MDAdmit Date: 2018Discharge Date: 06/03/2018Admitting Physician: JOHN Fieldsischarge Physician: Salma Hernández Diagnosis on Admission:Worsening episodic anginaAbnormal MPI with inferolateral and apical ischemiaHTNHLDMorbid qditdmoLJ7G/O tobacco abuseDischarge Diagnoses:Worsening episodic angina with LHC showing no significant obstructive CADAbnormal MPI with inferolateral and apical ischemiaHTNHLDMorbid aevopjcOO4P/O tobacco abuseAdditional diagnosis evaluated and treated during the admission: NoneProcedures: C on 06/03/18ignificant Diagnostic Studies:Consultants: Salma Preston (Cardiology)Hospital [...] sent through Care Everywhere. * Chest Pain (Lao) documented in this encounter Assessments Diagnosis Chest [...] cancer screening screening Reason for Visit Thrombocytopenia [id number] History of tobacco use Chief Complaint SCREENING 1YR NO LABS REVIEW MAMMO lab CHEST PAIN CHEST PAIN CHEST PAIN Lung cancer screening screening EORDERS Reason for Visit Thrombocytopenia [id number] History of tobacco use Reason for Referral Specialty Diagnoses / Procedures Referred By Tammy resendiz Referred To Contact Deisi Dickens APRN - LINE WORKER [address] [place] [address] Referral ID Status Reason Start Date Expiration Date V isits Requested Visits Authorized [id number] Pending Review 1 1 Specialty Diagnoses / Procedures Referred By Tammy resendiz Referred To Contact Diagnoses Type 2 diabetes mellitus with polyneuropathy (HCC) Kassi Seymour, DIRECTOR OF BUSINESS SERVICES - LINE WORKER [address] [place] [address] Referral ID Status Reason Start Date Expiration Date V isits Requested Visits Authorized [id number] Pending Review 1 1 Referral ID Status Reason Start Date Expiration Date V isits Requested Visits Authorized [id number] Pending Review 1 1 Referral ID Status Reason Start Date Expiration Date Visits Re quested Visits Authorized [id number] Denied 1 1 Referral ID Status Reason Start Date Expiration Date Visits Re quested Visits Authorized [id number] Denied 1 1 Additional Source Comments INFORMATION SOURCE (unrecogn ized section and content) DATE CREATED AUTHOR 07/06/2018 [facility] DATE CREATED AUTHOR AUTHOR'S ORGANIZ ATION 09/24/2019 [facility] DATE CREATED AUTHOR AUTHOR'S ORGANIZ ATION 06/21/2020 [facility] DATE CREATED AUTHOR AUTHOR'S ORGANIZ ATION 08/03/2020 [facility] DATE CREATED AUTHOR AUTHOR'S ORGANIZ ATION 01/17/2025 [facility] DATE CREATED AUTHOR AUTHOR'S ORGANIZ ATION 01/20/2025 [facility] Reason for Visit (unrecogniz ed section [...] eye--had a few months ago [place] in [place], Dental--hasn't been she has dentures, Hep B--declines, [...] Annual Exam Health Maintenance Hep A/B-discussHIV/H ep D-wteaxazaCFF-kprctmqoBxboap-declinedDM eye-needs to be scheduledDM Lcpyad-lgithffiOTP-sfuxcbiifVtd smear-needs svcyghndhHaqiug-qvtxpahnDkmeb-vhazmyWjmhh-pendedFlu-declinedCovid- declinedMammo-pended Hypertension Diabetes Depression Anxiety Reason Comments New Patient Reason Comments Altered Mental Status Specialty Diagnoses / Procedures Referred By Contac t Referred To Contact Diagnoses Hypoglycemia Procedures . Jarvis Flannery MD [address] [place] [address] [facility] [address] [place] [address] Referral ID Status Reason Start Date Expiration Date Visits Re quested Visits Authorized [id number] 1 1 Reason Onset Date Comments Med [...] completedPneumococcal Vaccine-declinedCervical Cancer Screening-declinedColorectal Cancer Screening-declinedDiabetes: Urine Sqhrwwu-Nhgfbsjatu-lagbjjHesgugvgd-pendedDiabetes: Foot Exam-pendedDepression Monitoring-NEEDS DONEInfluenza Vaccine-had completed Reason [...] Rianna 02/18/23 at 2155, For 1 dose 2207 (Given - Provider: Rabia Varma RN) buPROPion XL (Wellbutrin XL) 24 hr tablet 300 mg 300 mg, Oral, Daily, First dose on Wed02/19/23 at 0900, Do not crush, chew, or split. 0938 (Given - Provider: Isabel Parson RN) 0755 (Given - Provider: Jahaira Galvez, RN) busPIRone (Buspar) tablet 10 mg 10 mg, Oral, 2 times daily, First dose on Wed02/18/23 at 2155 2208 (Given - Provider: Rabia Varma RN) 0938 (Given - Provider: Isabel Parson, RN)2233 (Given - Provider: Rayne Martell RN) 0755 (Given - Provider: Jahaira Galvez RN) dextrose 5 % and sodium chloride 0.9 % infusion (COMPLETED) 75 mL/hr, IntraVENous, Once, On Wed02/18/23 at 2135, For 1 dose 2205 (New Bag - Provider: Rabia Varma RN)2235 (Stopped - Provider: Rabia Vamra RN) dextrose 5 % and sodium chloride 0.9 % infusion (COMPLETED) 75 mL/hr, IntraVENous, Once, On Rianna 02/18/23 at 2230, For 1 dose 2235 (New [...] Martell, ANTOINE) 0755 (Given - Provider: Jahaira Galvez RN) [...] Martell, ANTOINE) 0950 (Given - Provider: Jahaira Galvez RN) [...] - Reason: Other - Comment: Per endrocronologist RUNNER MAN since patient ate prior to BGT check)1700 [...] On Wed10/11/23 at 2045, For 1 dose 2046 (Given - Provider: Kati Godfrey RN) potassium [...] RN) PRN Medication Order 02/17/2024 02/18/2024 02/19/2024 upvibhnzak-zvvhqffcavlvi-faicjxn e 50-325-40 MG per tablet 1 tablet 1 tablet, Oral, Every 4 hours PRN, headaches, Starting on 8/10/24 at 1533 1603 (Given - Provid er: [...] 12/17/2024 12/18/2024 12/19/2024 lidocaine-EPINEPHrine (Xylocaine W/EPI) 1 %-1:884659 injection 10 mL (COMPLETED) 10 mL, Infiltration, Once, On Wed12/19/24 at 1905, For 1 dose 1924 (Given by Other - Provider: Cris Bello RN - Reason: Administered by Other (Comment Required) - Comment: Dr. Holley) Scheduled Medication Order 12/21/2024 12/22/2024 12/23/2024 ondansetron ODT (Zofran-ODT) disintegrating tablet 4 mg (COMPLETED) 4 mg, Oral, Once, On 12/23/24 at 1220, For 1 dose 1258 (Given - Provid er: Deidre Vaughn RN) oxyCODONE-acetaminophen (Percocet) 5-325 MG per tablet 1 tablet (COMPLETED) 1 tablet, Oral, Once, On 12/23/24 at 1220, For 1 dose, Maximum dose of acetaminophen is 4000 mg from all sources in 24 hours. 1258 (Given - Provid er: Deidre Vaughn RN) Scheduled Medication Order 01/07/2025 01/08/2025 01/09/2025 sodium chloride 0.9 % bolus 1,000 mL (COMPLETED) 1,000 mL, IntraVENous, at 1,000 mL/hr, Administer over 1 Hours, Once, On Wed01/09/25 at 0205, For 1 dose 0221 (New Bag - Prov ider: Catrachita Cheney, RN)[id number] (Stopped - Provider: Catrachita Cheney RN) Scheduled Medication Order 01/07/2025 01/08/2025 01/09/2025 oxyCODONE (Roxicodone) immediate release tablet 5 mg (COMPLETED) 5 mg, Oral, Once, On Wed01/09/25 at 2105, For 1 dose 2112 (Given - Provid er: oYgesh Holloway RN) Care Teams (unrecognized sec tion and content) Regulatory Agency Director Relationship Specialty Start Date End Date Al Ricketts [address] [phone] PCP - General 12/07/22 Regulatory Agency Director Relationship Specialty Start Date [place] [address] PCP - General Family Medicine 12/09/22 Regulatory Agency Director Relationship Specialty Start Date End Date Gio Ricketts [facility] [place] [id number] PCP - General Family Medicine 12/09/22 Argenis Mosher, JIMBO Fuselage Framer Licensed Independent Fuselage Framer 12/30/22 Regulatory Agency Director Relationship Specialty Start Date End Date [facility]io [facility] [place] [id number] PCP - General Family Medicine 12/09/22 Argenis Mosher LISW Fuselage Framer Licensed Independent Fuselage Framer 12/30/22 Regulatory Agency Director Relationship Specialty Start Date End [place] [address] PCP - General Family Medicine 12/09/22 Argenis Mosher, RAG BALER Fuselage Framer Licensed Independent Fuselage Framer 12/30/22 Regulatory Agency Director Relationship Specialty Start Date End Date Gio Ricketts MD [address] [place] [address] PCP - General Family Medicine 12/09/22 Argenis Mosher, RAG BALER Fuselage Framer Licensed Independent Fuselage Framer 12/30/22 Regulatory Agency Director Relationship Specialty Start Date End Date Gio Ricketts MD [facility] [place] [address] PCP - General Family Medicine 12/09/22 Argenis Mosher, JIMBO Fuselage Framer Licensed Independent Fuselage Framer 12/30/22 Regulatory Agency Director Relationship Specialty Start Date End [place] [address] PCP - General Family Medicine 12/09/22 Argenis Mosher, JIMBO Fuselage Framer Licensed Independent Fuselage Framer 12/30/22 Regulatory Agency Director Relationship Specialty Start Date End [place] [address] PCP - General Family Medicine 12/09/22 Argenis Mosher, RAG BALER Fuselage Framer Licensed Independent Fuselage Framer 12/30/22 Regulatory Agency Director Relationship Specialty Start Date End Date Gio Ricketts MD [facility] [place] [address] PCP - General Family Medicine 12/09/22 Argenis Mosher LISW Fuselage Framer Licensed Independent Fuselage Framer 12/30/22 Regulatory Agency Director Relationship Specialty Start Date End Date Gio Ricketts MD [address] [place], [place] [address] [address] PCP - General Family Medicine 12/09/22 Regulatory Agency Director Relationship Specialty Start Date End Date Gio Ricketts MD [address] [place], [place] [address] [address] PCP - General Family Medicine 12/09/22 Regulatory Agency Director Relationship Specialty Start Date End Date Gio Ricketts MD [address] [place], [place] [address] [address] PCP - General Family Medicine 12/09/22 Regulatory Agency Director Relationship Specialty Start Date End Date Gio Ricketts MD [address] [place] [address] PCP - General Family Medicine 12/09/22 Angel Juan MD [address] [facility] [address] [place] [address] Medical Oncology 09/22/23 Regulatory Agency Director Relationship Specialty Start Date End Date Gio Ricketts MD [address] [place], [place] [address] [address] PCP - General Family Medicine 12/09/22 Angel Juan MD [address] [facility] [address] [place] [address] Medical Oncology 09/22/23 Regulatory Agency Director Relationship Specialty Start Date End Date Gio Ricketts MD [address] [place] [address] PCP - General Family Medicine 12/09/22 Angel Juan MD [address] [facility] [address] [place] [address] Medical Oncology 09/22/23 Regulatory Agency Director Relationship Specialty Start Date End Date Gio Ricketts MD [address] [place] [address] PCP - General Family Medicine 12/09/22 Angel Juan MD [address] [facility] [address] [place] [address] Medical Oncology 09/22/23 Regulatory Agency Director Relationship Specialty Start Date End Date Gio Ricketts MD [address] [place] [address] PCP - General Family Medicine 12/09/22 Angel Juan MD [address] [facility] [address] [place] [address] Medical Oncology 09/22/23 Regulatory Agency Director Relationship Specialty Start Date End Date Gio Ricketts MD [address] [place] [address] PCP - General Family Medicine 12/09/22 Angel Juan MD [address] [facility] [address] [place] [address] Medical Oncology 09/22/23 Regulatory Agency Director Relationship Specialty Start Date End Date Gio Ricketts MD [address] [place] [address] PCP - General Family Medicine 12/09/22 Angel Juan MD [address] [facility] [address] [place] [address] Medical Oncology 09/22/23 Regulatory Agency Director Relationship Specialty Start Date End Date Gio Ricketts MD [address] [place] [address] PCP - General Family Medicine 12/09/22 Angel Juan MD [address] [facility] [address] [place] [address] Medical Oncology 09/22/23 Regulatory Agency Director Relationship Specialty Start Date End Date Gio Ricketts MD [address] [place] [address] PCP - General Family Medicine 12/09/22 Angel Juan MD [address] [address] Medical Oncology 09/22/23 Regulatory Agency Director Relationship Specialty Start Date End Date Gio Ricketts MD [address] [place] [address] PCP - General Family Medicine 12/09/22 Angel Juan MD [address] [address] Medical Oncology 09/22/23 Regulatory Agency Director Relationship Specialty Start Date End Date Gio Ricketts MD [address] [place] [address] PCP - General Family Medicine 12/09/22 Angel Juan MD [address] [facility] [address] [place] [address] Medical Oncology 09/22/23 Regulatory Agency Director Relationship Specialty Start Date End Date Gio Ricketts MD [address] [place] [address] PCP - General Family Medicine 12/09/22 Angel Juan MD [address] [facility] [address] [place] [address] Medical Oncology 09/22/23 Regulatory Agency Director Relationship Specialty Start Date End [place] [address] PCP - General Family Medicine 12/09/22 Angel Juan MD [address] [facility] [address] [place] [address] Medical Oncology 09/22/23 Regulatory Agency Director Relationship Specialty Start Date End Date Gio Ricketts MD [address] [place], [place] [address] [address] PCP - General Family Medicine 12/09/22 Angel Juan MD [address] [facility] [address] [place] [address] Medical Oncology 09/22/23 Regulatory Agency Director Relationship Specialty Start Date End Date Gio Ricketts MD [facility] [place] [address] PCP - General Family Medicine 12/09/22 Angel Juan MD [address] [facility] [address] [place], [place] [id number] Medical Oncology 09/22/23 Regulatory Agency Director Relationship Specialty Start Date End Date Gio Ricketts MD [address] [place] [address] [place] [address] PCP - General Family Medicine 12/09/22 Angel Juan MD [address] [facility] [address] [place] [address] Medical Oncology 09/22/23 Regulatory Agency Director Relationship Specialty Start Date End Date Gio Ricketts MD [address] [place] [address] PCP - General Family Medicine 12/09/22 Angel Juan MD [address] [facility] [address] [place] [address] Medical Oncology 09/22/23 Regulatory Agency Director Relationship Specialty Start Date End Date Gio Ricketts MD [address] [place] [address] PCP - General Family Medicine 12/09/22 Angel Juan MD [address] [facility] [address] [place] [address] Medical Oncology 09/22/23 Regulatory Agency Director Relationship Specialty Start Date End [place] [address] PCP - General Family Medicine 12/09/22 Angel Juan MD [address] [facility] [address] [place] [address] Medical Oncology 09/22/23 Regulatory Agency Director Relationship Specialty Start Date End Date Gio Ricketts [place] [address] PCP - General Family Medicine 12/09/22 Angel Juan MD [address] [place] [address] Medical Oncology 09/22/23 Regulatory Agency Director Relationship Specialty Start Date End [place] [address] PCP - General Family Medicine 12/09/22 Angel Juan MD [address] [facility] [address] [place] [address] Medical Oncology 09/22/23 Regulatory Agency Director Relationship Specialty Start Date End [place] [address] PCP - General Family Medicine 12/09/22 Angel Juan MD [address] [facility] [address] [place] [address] Medical Oncology 09/22/23 Regulatory Agency Director Relationship Specialty Start Date End [place] [address] PCP - General Family Medicine 12/09/22 Angel Juan MD [address] [facility] [address] [place] [address] Medical Oncology 09/22/23 Regulatory Agency Director Relationship Specialty Start Date End Date Gio Ricketts MD [address] [place] [address] [place] [address] PCP - General Family Medicine 12/09/22 Angel Juan MD [address] [facility] [address] [place] [address] Medical Oncology 09/22/23 Regulatory Agency Director Relationship Specialty Start Date End Date Gio Ricketts MD [address] [place] [address] [place] [address] PCP - General Family Medicine 12/09/22 Angel Juan MD [address] [facility] [address] [place] [address] Medical Oncology 09/22/23 Regulatory Agency Director Relationship Specialty Start Date End Date Gio Ricketts MD [address] [place] [address] [facility] [place] [address] PCP - General Family Medicine 12/09/22 Angel Juan MD [address] [facility] [address] [place] [address] Medical Oncology 09/22/23 Regulatory Agency Director Relationship Specialty Start Date End Date Gio Ricketts MD [address] [place] [address] [facility] [place] [address] PCP - General Family Medicine 12/09/22 Angel Juan MD [address] [facility] [address] [place] [address] Medical Oncology 09/22/23 Regulatory Agency Director Relationship Specialty Start Date End Date Gio Ricketts MD [address] [place] [address] [place] [address] PCP - General Family Medicine 12/09/22 Angel Juan MD [address] [facility] [address] [place] [address] Medical Oncology 09/22/23 Regulatory Agency Director Relationship Specialty Start Date End Date Gio Ricketts MD [address] [place] [address] PCP - General Family Medicine 12/09/22 Angel Juan MD [address] [facility] [address] [place] [address] Medical Oncology 09/22/23 Regulatory Agency Director Relationship Specialty Start Date End Date Gio Ricketts MD [address] [place] [address] PCP - General Family Medicine 12/09/22 Angel Juan MD [address] [facility] [address] [place] [address] Medical Oncology 09/22/23 Regulatory Agency Director Relationship Specialty Start Date End Date Gio Ricketts MD [address] [place] [address] [place] [address] PCP - General Family Medicine 12/09/22 Angel Juan MD [address] [place] [address] Medical Oncology 09/22/23 Regulatory Agency Director Relationship Specialty Start Date End Date Gio Ricketts MD [address] [place] [address] [place] [address] PCP - General Family Medicine 12/09/22 Angel Juan MD [address] [place] [address] Medical Oncology 09/22/23 Regulatory Agency Director Relationship Specialty Start Date End Date Gio Ricketts MD [address] [place] [address] PCP - General Family Medicine 12/09/22 Angel Juan MD [address] [place] [address] Medical Oncology 09/22/23 Regulatory Agency Director Relationship Specialty Start Date End Date Gio Ricketts MD [address] [place] [address] [place] [address] PCP - General Family Medicine 12/09/22 Angel Juan MD [address] [place] [address] Medical Oncology 09/22/23 Regulatory Agency Director Relationship Specialty Start Date End Date Gio Ricketts MD [address] [place] [address] [place] [address] PCP - General Family Medicine 12/09/22 Angel Juan MD [address] [address] Medical Oncology 09/22/23 Regulatory Agency Director Relationship Specialty Start Date End Date Gio Ricketts MD [address] [place] [address] PCP - General Family Medicine 12/09/22 Angel Juan MD [address] [address] Medical Oncology 09/22/23 Regulatory Agency Director Relationship Specialty Start Date End Date Gio Ricketts MD [address] [place] [address] PCP - General Family Medicine 12/09/22 Angel Juan MD [address] [address] Medical Oncology 09/22/23 FOR RECORDS PERTAINING TO [...] BE BASED ON THE PRIMARY CLINICAL RECORDS. [facility]. provides no warranty or guarantee of the accuracy or completeness of information in this document.
[2025-01-21 22:24] LABS: Mucous, Urine 0 SEEN /hpf (<or=2+)
[2025-01-21] MEDS: 0.9% Normal Saline (1000mL) 1,000 ML 125 ML IV (22:28)
[2025-01-21 22:29] LABS: Color, Urine Yellow (Yellow); Glucose, Dipstick Normal (Normal); Ketone-Dipstick Negative (Negative); Leukocyte Esterase-Dipstick 25 /ul (Negative); Nitrite-Dipstick Negative (Negative); Occult Blood-Urine 10 /ul (Negative); Protein-Dipstick 30 mg/dl (Negative); Specific Gravity, Urine 1.010 (1.002-1.030); Urine Bilirubin Dipstick Negative (Negative)
[2025-01-21 22:40] LABS: Hematocrit 33.2 % (37-47); Hemoglobin 10.7 g/dL (12.0-15.0); Immature Granulocytes Count 0.010 X10^3/uL (0.0-0.0); Mean Corp Hgb Conc 32.2 g/dL (32-36); Mean Corpuscular Volume 85.6 fL (81-99); Mean Platelet Vol. 11.8 fl (6.2-12.0); NRBC Flagged by Analyzer 0 % (0-5); POSITIVE COUNT YES; POSITIVE DIFFERENTIAL YES; RBC Distribution Width CV 15.3 % (11.6-14.6); RBC Distribution Width SD 47.7 fl (35.1-43.9); Red Blood Count 3.88 M/mm3 (4.2-5.4); White Blood Count 2.0 K/mm3 (4.4-11.0)
[2025-01-21 22:48] LABS: Differential Indicated SCAN CRITERIA MET; Platelet Count 44 K/mm3 (150-450)
[2025-01-21 23:18] LABS: AST(SGOT) 31 U/L (<=31); Alanine Aminotransfer ALT/SGPT 24 U/L (<=34); Albumin, Serum 3.8 g/dL (3.5-5.0); Alkaline Phosphatase 83 U/L (35-104); Anion Gap 13 (5-15); BUN 12 mg/dL (4-19); BUN/Creat Ratio 9.2 RATIO (10-20); Calcium,Total 9.6 mg/dL (7.6-11.0); Carbon Dioxide 22.5 mmol/L (21.0-32.0); Chloride 104 mmol/L (98-108); Estimated Creatinine Clearance 59.69 ml/min (50-250); Globulin 3.1 g/dL (2.2-4.2); Glucose 132 mg/dL (70-99); Lipase 42 U/L (13-75); Potassium 3.7 mmol/L (3.3-5.1)
[2025-01-21 23:19] LABS: Squamous Epithelial Cells - UA 10-25 SEEN /hpf (5-10); Transitional Epithelial - Ur 0-5 SEEN /hpf (0-5)
[2025-01-21 23:20] LABS: Red Blood Cells-Urine 0-5 SEEN /hpf (0-5)
[2025-01-21 23:29] LABS: Differential Comment SCANNED
[2025-01-22] VITALS: BP 123/67; PULSE 72; RESP 16; TEMP 36.6; O2SAT 99
[2025-01-22 02:35] LABS: Reflex Lactate? Y
== END 2025-01-22 00:17 | disposition home or self-care (01) ==
PROVIDERS: Emergency Provider Emergency Medicine; PCP Family Medicine; Visit Provider Emergency Medicine
DX: R10.9 Unspecified abdominal pain (principal); K74.60 Unspecified cirrhosis of liver; J44.9 Chronic obstructive pulmonary disease, unspecified; E66.01 Morbid (severe) obesity due to excess calories; E11.9 Type 2 diabetes mellitus without complications; R74.8 Abnormal levels of other serum enzymes; Z87.891 Personal history of nicotine dependence; Z86.718 Personal history of other venous thrombosis and embolism; E78.00 Pure hypercholesterolemia, unspecified; K21.9 Gastro-esophageal reflux disease without esophagitis; I10 Essential (primary) hypertension; Z90.49 Acquired absence of other specified parts of digestive tract
CPT/HCPCS: 74177; 80053; 81001; 83605; 83690; 85025; 96361; 96374; 96375; 99283; Q9967; A4216

== ENCOUNTER 2025-03-15 11:34 | Emergency (ER) | payer BC, MEDICAID, SELFPAY ==
[2025-03-15 11:35] VITALS: BP 155/92; PULSE 80; RESP 16; TEMP 37.1; O2SAT 97; BMI 44.9
--- NOTE | 2025-03-15 11:57 | CT_ITS ---
PROCEDURE: ABDOMEN/PELVIS W IV CONT ONLY 03/15/2025 REASON FOR EXAM: PERIUMBILICAL PAIN WITH MOVEMENT TECHNIQUE: Procedure Code: [id number] Modality: CT Procedure: ABDOMEN/PELVIS W IV CONT ONLY Coronal and Sagittal reconstruction series were provided. CONTRAST: Isovue-300 VOLUME: 100 mL One or more dose reduction techniques were used (e.g., Automated exposure control, adjustment of the mA and/or kV according to patient size, use of iterative reconstruction technique. RADIATION DOSE SUMMARY: CTDlvol: 15.75 mGy DLP: 1299.74 mGycm COMPARISON: Prior study dated January 21, 2025. FINDINGS: Lung bases: Stable minimal linear scarring at the lung bases. Coronary artery calcification. Liver: Diffuse fatty infiltration. Gallbladder: Surgically absent. Spleen: Moderate enlargement of the spleen. There is evidence of portal venous hypertension with the varicosities in the region of the splenic hilum. Pancreas: Diffuse fatty atrophy. Adrenals: Unremarkable Kidneys: Normal renal sizes. No hydronephrosis. Bladder: Unremarkable Reproductive Organs: Normal uterine size and contour. Ovaries are unremarkable. Bowel: Colonic diverticulosis without diverticulitis. Appendix: The appendix is not identified. There is no inflammatory process identified in the right lower quadrant to suggest appendicitis. Lymph nodes: Unremarkable. Vasculature: Mild diffuse atherosclerotic calcifications are noted. Peritoneum / Retroperitoneum: Stable 4.4 cm x 2.4 cm fluid collection in the deep subcutaneous tissues overlying the lower anterior abdominal wall. Bones: Degenerative changes of the spine. CT/Abdomen/Pelvis W IV Cont ONLY IMPRESSION: Cirrhotic changes with evidence of portal venous hypertension. Varices are see n in the splenic hilum. Status post cholecystectomy. Moderate degree of splenomegaly. Reading Location[id number]
--- NOTE | 2025-03-15 11:58 | ED.VIS.GI ---
HPI HPI - GI History of Present Illness Chief Complaint: Abd Pain Detail of Chief Complaint: Abdominal pain Informant: patient Narrative Narrative: Patient presents with abdominal pain that started last evening around 9:30 PM. Patient noticed that when she would move she would have pain around her umbilicus. She tells me she had a hernia repair in [address] Anderson. She called the office today and was told to be evaluated in the emergency department. Patient had some mild nausea. She denies fever. She had 2 episodes of diarrhea yesterday but denies any blood in her stool. She denies urinary symptoms. She has not noted any new lumps to her abdomen. [facility] Medical History Arthritis Anemia High cholesterol History of Crohn's disease History of IBS GERD (gastroesophageal reflux disease) Sleep apnea PVT (portal vein thrombosis) Pancytopenia Liver disease Loss of hearing Wears glasses Wears dentures Post-menopausal History of steroid therapy Insulin dependent diabetes mellitus Restless legs Back pain Dietary restriction Heartburn History of ulceration Colitis Former smoker CPAP (continuous positive airway pressure) dependence Shortness of breath on exertion Asthma Chronic cough Leg cramps History of edema History of echocardiogram History of stress test Cardiology follow-up encounter Disease of gingiva due to infection Incisional hernia Lung infection MDD (major depressive disorder) Allergies Contact with and (suspected) exposure to other viral communicable diseases URI (upper respiratory infection) Concussion History of tobacco use Encounter for screening for malignant neoplasm of lung in former smoker who quit in past 15 years with 30 pack year history or greater Trochanteric bursitis of left hip Right leg weakness Rectal bleed Hemorrhoids Fatigue Elevated transaminase level COPD (chronic obstructive pulmonary disease) Proteinuria Osteoarthritis Obesity Anxiety Hyperglycemia Hyponatremia Essential hypertension Migraines Depression Thrombocytopenia Home Medications ?Medication ?Instructions ?Recorded ?Last Taken ?Type albuterol sulfate 90 mcg/actuation 2 puff inhalation Q6H PRN PRN 07/29/20 10/01/23 History aerosol inhaler Shortness Of Breath labetalol 100 mg tablet 100 mg PO BID 07/29/20 12/17/24 History metformin 1,000 mg tablet 1,000 mg PO BIDCM 07/29/20 12/17/24 History bupropion HCl 300 mg 24 hr tablet, 300 mg PO QAM 30 days #30 tabs 02/01/23 12/17/24 Rx extended release buspirone 10 mg tablet 10 mg PO BID 10/31/24 12/17/24 History glimepiride 4 mg tablet 4 mg PO QAM 10/31/24 12/17/24 History lactulose 10 gram/15 mL oral 10 g (15 mL) PO QDAY 90 days 10/31/24 12/15/24 Rx solution #1,350 mL mecobalamin (vitamin B12) 10,000 10,000 mcg IM QMONTH 10/31/24 12/11/24 History mcg solution for injection rosuvastatin 5 mg tablet 5 mg PO QDAY 10/31/24 12/17/24 History apixaban 2.5 mg tablet (Eliquis) 2.5 mg PO BID #60 tabs 11/29/24 12/12/24 Rx pantoprazole 40 mg tablet,delayed 40 mg PO BID #60 tabs 12/14/24 12/17/24 Rx release rifaximin 550 mg tablet (Xifaxan) 550 mg PO BID 30 days #60 tabs 12/19/24 Unknown Rx oxycodone 5 mg capsule 5 mg PO Q6H PRN pain 3 days #10 01/22/25 Unknown Rx caps furosemide 20 mg tablet (Lasix) 20 mg PO QDAY edema 1 month #30 03/01/25 Unknown Rx tabs spironolactone 25 mg tablet 25 mg PO DAILY 1 month #30 tabs 03/01/25 Unknown Rx calcium carbonate (Calcium 500) 500 mg PO TID 3 months #270 tabs 03/02/25 Unknown Rx cholecalciferol (vitamin D3) 125 125 mcg PO DAILY 3 months #90 tabs 03/02/25 Unknown Rx mcg (5,000 unit) tablet Allergy/AdvReac Type Severity Reaction Status Date / Time cat dander Allergy Severe Swelling Verified 03/15/25 11:35 lisinopril AdvReac Intermediate edema and Verified 03/15/25 11:35 difficulty breathing Family History Sister TBI (traumatic brain injury) Colon cancer Brother Substance abuse Depression Seizures Father Hypertension Prostate cancer Heart disease Arthritis Myocardial infarction Kidney disease Mother Depression Heart disease Diabetes Asthma Osteoporosis Respiratory disease Surgical History H/O tooth extraction History of incisional hernia repair History of tonsillectomy and adenoidectomy History of endometrial ablation H/O colonoscopy History of cholecystectomy Status post carpal tunnel release H/O cardiac catheterization Social History (Updated 03/15/25 @ 11:50 by Sabrina Hussein) household members: spouse housing: house Smoking Status: Former smoker alcohol intake: never substance use type: does not use ROS ROS ED Review of Systems ROS Unobtainable: other Constitutional Constitutional ED: Reports lethargy; Denies chills, fever(s), sweats or weight loss Eyes Eyes: Denies blurry vision, change in vision or diplopia ENT ENT ED: Denies rhinorrhea or sore throat Cardiovascular Cardiovascular: Denies chest pain, orthopnea or racing heartbeat Respiratory/Chest Respiratory/Chest: Denies cough, dyspnea, dyspnea on exertion, orthopnea or sputum Gastrointestinal Gastrointestinal: Reports abdominal pain; Denies diarrhea, nausea or vomiting Genitourinary Genitourinary ED: Denies dysuria, hematuria or urinary frequency Musculoskeletal Musculoskeletal: Denies arthralgias, back pain, myalgias or neck pain Integumentary Denies abscess, Abrasions or rash Neurologic Neurologic: Denies headache(s) or weakness Psychiatric Psychiatric: Denies anxiety, depression or suicidal thoughts Endocrine Endocrinology: Denies polydipsia, polyphagia or polyuria Hematologic/Lymphatic Hematologic/Lymphatic: Denies easy bleeding, easy bruising or lymphadenopathy Allergic/Immunologic Allergic/Immunologic ED: Denies mouth swelling, tongue swelling or urticaria EXAM Physical Exam Const Vital Signs: 03/15/25 11:35 03/15/25 13:51 Temperature 98.8 F Temperature Source Oral Pulse Rate 80 80 Respiratory Rate 16 Blood Pressure 155/92 H 128/80 H Blood Pressure Mean 113 96 Pulse Ox 97 100 Oxygen Delivery Method Room Air Positive well nourished and well developed General Appearance ED: well developed and NAD HEENT Reports TM's clear and moist mucous membranes normocephalic and atraumatic; Negative for trauma or tenderness Tympanic Membrane ED: Yes TM's clear Eyes PERRL and EOMs intact bilaterally General Eye ED: Negative for pale conjunctiva or scleral icterus Neck no lymphadenopathy, supple and no JVD General: Negative for tenderness Chest Wall inspection of chest normal and palpation of chest normal Chest: Negative for tenderness Resp normal respiratory effort and clear to auscultation bilaterally Effort and Inspection: Negative for respiratory distress or pain with movement Auscultation: Negative for rhonchi, wheezes or diminished lung sounds Cardio regular rate, regular rhythm, S1 normal heart sound, S2 normal heart sound and no murmurs Peripheral Pulses: pulses 2+ throughout GI normal to inspection, nondistended, normoactive bowel sounds, soft to palpation, non-distended and no masses GI Narrative: Normoactive bowel sounds. Abdomen soft. Small umbilical hernia noted on exam but does not seem to be the source of her pain when I palpate the area. No other large hernias noted however exam difficult due to patient's large body habitus. No erythema or cellulitic changes noted. Back/Spine no CVA tenderness and no thoracic nor lumbar tenderness Extremity normal to inspection General Extremety ED: Negative for edema General Extremity: Negative for edema Neuro oriented x3, CN's II-XII intact bilaterally, no sensory deficits noted and gait normal Sensorium / Orientation: awake, alert, oriented to person, oriented to place and oriented to time Motor Exam: strength 5/5 throughout and strength abnormal Psych mental status grossly normal Skin no rashes or lesions noted and no wounds MDM MDM MDM Narrative Medical decision making narrative: Patient presents with abdominal pain since last evening. No injury. She has history of cirrhosis with prior hernia repair [place] [address] Mireles. Apparently she had incisional hernia repair at the umbilicus with mesh at that time. Currently do not palpate any new hernias. Clinically looks well. IV line established. She did not want a thing for pain as she only has pain when she moves. CBC with differential obtained showed a white count of 2.1 with hemoglobin 10.8 platelet count of 43,000. Chemistries unremarkable. BUN was 14 and creatinine 1.25. Urinalysis unremarkable. CT scan of the abdomen pelvis with IV contrast showed cirrhotic changes with evidence of portal venous hypertension. There were varices seen in the splenic hilum status post cholecystectomy. Patient also had moderate degree of splenomegaly. She had a stable small fluid collection in subcutaneous region adjacent to the umbilicus which is stable and chronic since 2022. No other significant hernias or abnormalities noted on CT. Patient does not want thing for pain for home as she states she really cannot take much because it is either can be bad for her kidneys are bad for her liver. Lab Data Attestation: I reviewed the patient's lab results. Labs: Laboratory Results - last 24 hr 03/15/25 03/15/25 12:01 12:15 WBC 2.1 L RBC 4.07 L Hgb 10.8 L Hct 33.9 L MCV 83.3 MCH 26.5 L MCHC 31.9 L RDW Std Deviation 49.0 H RDW Coeff of Stu 16.3 H Plt Count 43 L* MPV 11.0 Immature Gran % (Auto) 0.500 Neut % (Auto) 67.2 Lymph % (Auto) 21.2 [place] % (Auto) 11.1 H Eos % (Auto) 0.0 Baso % (Auto) 0.0 Absolute Neuts (auto) 1.4 L Absolute Lymphs (auto) 0.44 L Nucleated RBC % 0 Platelet Estimate MKD DEC Polychromasia 1+ Sodium 139 Potassium 3.9 Chloride 102 Carbon Dioxide 23.8 Anion Gap 13 BUN 14 Creatinine 1.25 H Estim Creat Clear Calc 65.21 Est GFR (MDRD) Non-Af 50 L BUN/Creatinine Ratio 11.0 Glucose 174 H Lactic Acid 3.0 H* Calcium 9.4 Urine Color Straw Urine Clarity Clear Urine pH 6.5 Ur Specific [place] 1.005 Urine Protein 30 H Urine Glucose (UA) Normal Urine Ketones Negative Urine Occult Blood Negative Urine Nitrite Negative Urine Bilirubin Negative Urine Urobilinogen Normal Ur Leukocyte Esterase Negative Urine RBC 0 SEEN Urine WBC 0-5 SEEN Ur Squamous Epith Cells 5-10 SEEN Urine Bacteria 0 SEEN Urine Mucus 0 SEEN Urine Yeast RARE Radiography Diagnostic Testing: Clinical Impression(s) from Imaging Studies Abdomen/Pelvis CT 03/15/25 11:57 IMPRESSION: Cirrhotic changes with evidence of portal venous hypertension. Varices are seen in the splenic hilum. Status post cholecystectomy. Moderate degree of splenomegaly. [id number] Triage Chief Complaint: Abd Pain ED Provider: Orestes Francis Dx/Rx/DC Orders Clinical Impression: Abdominal pain Instructions: ED Abdominal Pain Unkn Cause Fem Prescriptions: No Action buspirone 10 mg tablet 10 mg PO BID glimepiride 4 mg tablet 4 mg PO QAM Rx Instructions: administer with breakfast rosuvastatin 5 mg tablet 5 mg PO QDAY mecobalamin (vitamin B12) 10,000 mcg recon [place] 10,000 mcg IM QMONTH lactulose 10 gram/15 mL solution 10 g PO QDAY 90 Days Qty: 1350 1RF Xifaxan 550 mg tablet 550 mg PO BID 30 Days Qty: 60 5RF spironolactone 25 mg tablet 25 mg PO DAILY 30 Days Qty: 30 3RF furosemide [Lasix] 20 mg tablet 20 mg PO QDAY 30 Days Qty: 30 3RF metformin 1,000 MG tablet 1,000 mg PO BIDCM labetalol 100 MG tablet 100 mg PO BID albuterol sulfate 1 PUFF inhaler 2 puff INHALATION Q6H PRN PRN (Reason: Shortness Of Breath) oxycodone 5 mg capsule 5 mg PO Q6H PRN (Reason: pain) 3 Days Qty: 10 0RF bupropion HCl 300 mg tablet extended release 24 hr 300 mg PO QAM 30 Days Qty: 30 2RF Eliquis 2.5 mg tablet 2.5 mg PO BID Qty: 60 2RF pantoprazole 40 mg tablet,delayed release (DR/EC) 40 mg PO BID Qty: 60 1RF Rx Instructions: take 30 minutes before breakfast and dinner calcium carbonate [Calcium 500] 500 mg calcium (1,250 mg) tablet,chewable 500 mg PO TID 90 Days Qty: 270 3RF cholecalciferol (vitamin D3) 125 mcg (5,000 unit) tablet 125 mcg PO DAILY 90 Days Qty: 90 3RF Primary Care Provider: See Reece Referrals: See Reece MD [Primary Care Provider] - Rosamaria Anderson MD [Med Staff - Active Staff] - 3-5 Days Print Language: Persian Disposition Disposition: Home, Self Care
[2025-03-15 12:16] LABS: Hematocrit 33.9 % (37-47); Hemoglobin 10.8 g/dL (12.0-15.0); Immature Granulocytes Count 0.010 X10^3/uL (0.0-0.0); Mean Corp Hgb Conc 31.9 g/dL (32-36); Mean Corpuscular Volume 83.3 fL (81-99); Mean Platelet Vol. 11.0 fl (6.2-12.0); NRBC Flagged by Analyzer 0 % (0-5); POSITIVE COUNT YES; POSITIVE DIFFERENTIAL YES; RBC Distribution Width CV 16.3 % (11.6-14.6); RBC Distribution Width SD 49.0 fl (35.1-43.9); Red Blood Count 4.07 M/mm3 (4.2-5.4); White Blood Count 2.1 K/mm3 (4.4-11.0)
[2025-03-15] MEDS: 0.9% Normal Saline (1000mL) 1,000 ML 15 ML IV (12:20)
[2025-03-15 12:22] LABS: Mucous, Urine 0 SEEN /hpf (<or=2+); Red Blood Cells-Urine 0 SEEN /hpf (0-5)
[2025-03-15 12:27] LABS: Glucose, Dipstick Normal (Normal); Ketone-Dipstick Negative (Negative); Leukocyte Esterase-Dipstick Negative /ul (Negative); Nitrite-Dipstick Negative (Negative); Occult Blood-Urine Negative /ul (Negative); Protein-Dipstick 30 mg/dl (Negative); Specific Gravity, Urine 1.005 (1.002-1.030); Urine Bilirubin Dipstick Negative (Negative)
[2025-03-15 12:29] LABS: Platelet Count 43 K/mm3 (150-450)
[2025-03-15 12:30] LABS: Differential Indicated SCAN CRITERIA MET
[2025-03-15 12:32] LABS: Color, Urine Straw (Yellow)
[2025-03-15 12:34] LABS: Squamous Epithelial Cells - UA 5-10 SEEN /hpf (5-10)
[2025-03-15 12:36] LABS: Yeast-Urine RARE /hpf (None Seen)
[2025-03-15 12:58] LABS: Polychromasia 1+
[2025-03-15 13:01] LABS: Anion Gap 13 (5-15); BUN 14 mg/dL (4-19); BUN/Creat Ratio 11.0 RATIO (10-20); Calcium,Total 9.4 mg/dL (7.6-11.0); Carbon Dioxide 23.8 mmol/L (21.0-32.0); Chloride 102 mmol/L (98-108); Estimated Creatinine Clearance 65.21 ml/min (50-250); Glucose 174 mg/dL (70-99); Potassium 3.9 mmol/L (3.3-5.1)
[2025-03-15 13:51] VITALS: BP 128/80; PULSE 80; O2SAT 100
[2025-03-15 14:15] VITALS: BP 128/80; PULSE 80; RESP 16; TEMP 36.8; O2SAT 100
[2025-03-15 16:09] LABS: Reflex Lactate? Y
== END 2025-03-15 14:22 | disposition home or self-care (01) ==
PROVIDERS: Emergency Provider Emergency Medicine; PCP Family Medicine; Visit Provider Emergency Medicine
DX: R10.9 Unspecified abdominal pain (principal); K76.6 Portal hypertension; J44.9 Chronic obstructive pulmonary disease, unspecified; E11.9 Type 2 diabetes mellitus without complications; Z87.891 Personal history of nicotine dependence; R16.1 Splenomegaly, not elsewhere classified; Z90.49 Acquired absence of other specified parts of digestive tract; E78.00 Pure hypercholesterolemia, unspecified; K21.9 Gastro-esophageal reflux disease without esophagitis; I86.8 Varicose veins of other specified sites
CPT/HCPCS: 74177; 80048; 81001; 83605; 85025; 96360; 96361; 99282; Q9967; A4216